=== PATIENT | female | born 1990 | race Caucasian/White ===

== ENCOUNTER → 2017-08-16 18:20 | Outpatient (CLI) | payer BC, SELFPAY ==
[2017-08-16 20:09] LABS: Chlamydia Trachomatis by PCR Negative (Negative); Neisserai gonorrhoeae by PCR Negative (Negative); Probe Check PASS; Sample Adequacy Control PASS; Specimen Processing Control PASS
[2017-08-23 07:27] LABS: HPV Reflexed? NOT INDICATED
== END ==
PROVIDERS: PCP Family Medicine; Visit Provider Obstetrics & Gynecology
DX: Z12.4 Encounter for screening for malignant neoplasm of cervix (principal); Z11.3 Encounter for screening for infections with a predominantly sexual mode of transmission
CPT/HCPCS: 87491; 87591; 88175; G0145

== ENCOUNTER → 2017-09-08 14:36 | Outpatient (CLI) | payer BC, SELFPAY ==
[2017-09-08 15:49] LABS: Color, Urine Yellow (Yellow); Glucose, Dipstick Normal (Normal); Ketone-Dipstick Negative (Negative); Leukocyte Esterase-Dipstick Negative /ul (Negative); Nitrite-Dipstick Negative (Negative); Occult Blood-Urine Negative /ul (Negative); Protein-Dipstick Negative (Negative); Urine Bilirubin Dipstick Negative (Negative); Urine Clarity Clear (Clear); Urine Urobilinogen Normal (Normal); Urine pH 6.5 (5.0 - 8.0)
[2017-09-08 16:02] LABS: Amphetamine Urine VISTA NEGATIVE (<1000 ng/mL); Barbiturate Urine VISTA NEGATIVE (< 200 ng/mL); Benzodiazepine Urine VISTA NEGATIVE (< 200 ng/mL); Cocaine Urine VISTA NEGATIVE (< 300 ng/mL); Ecstacy Urine VISTA NEGATIVE (< 500 ng/mL); Methadone Urine VISTA NEGATIVE (< 300 ng/mL); PCP Urine VISTA NEGATIVE (< 25 ng/mL); THC Urine VISTA NEGATIVE (< 50 ng/mL); Vista UDS pH Range 6
[2017-09-08 16:04] LABS: Thyroid Stim Hormone (TSH) 1.33 uIU/mL (0.358-3.74)
[2017-09-08 16:09] LABS: Absolute Lymphocyte Count 1.87 X10^3/ul (0.83-4.51); Absolute Neutrophil Count 4.6 X10^3/uL (2.0-7.7); Basophil# 0.02 X10^3/uL; Basophil% 0.3 % (0-1); Eosinophil# 0.16 X10^3/uL; Eosinophils% 2.3 % (0-5); Hematocrit 39.1 % (37-47); Hemoglobin 13.7 g/dl (12.0-15.0); Lymphocyte # 1.87 X10^3/ul (4.0); Lymphocyte % 26.8 % (19-41); Mean Corpuscular Hgb 30.4 pg (27.0-32.0); Mean Corpuscular Volume 86.7 fL (81-99); Monocyte# 0.34 X10^3/uL; Monocyte% 4.9 % (0-10); Neutrophil # 4.58 X10^3/uL (2.7-7.7); Neutrophil % 65.6 % (47-70); Platelet Count 270 K/mm3 (150-450); RBC Distribution Width CV 12.3 % (11.6-14.6); RBC Distribution Width SD 38.1 fl (35.1-43.9); Red Blood Count 4.51 M/mm3 (4.2-5.4)
[2017-09-08 16:24] LABS: POSITIVE COUNT NO; POSITIVE DIFFERENTIAL NO; POSITIVE MORPHOLOGY NO
[2017-09-08 16:43] LABS: HIV - WCH Non-Reactive (Nonreactive); Rubella IgG 36.4 IU/mL
[2017-09-11 08:59] LABS: HEPATITIS B SURFACE AG Negative (Negative); Hep C Antibodies 0.2 s/co ratio (0.0-0.9); Toxoplasma Gondii IgG < 3.0 IU/mL (0.0-7.1)
[2017-09-15 01:08] LABS: Prenatal RPR NONREACTIVE (NONREACTIVE)
== END ==
PROVIDERS: Visit Provider Obstetrics & Gynecology
DX: Z34.81 Encounter for supervision of other normal pregnancy, first trimester (principal)
CPT/HCPCS: 36415; 80307; 81002; 84443; 85025; 86703; 86762; 86777; 86803; 87340

== ENCOUNTER → 2018-01-05 09:53 | Outpatient (CLI) | payer BC, SELFPAY ==
[2018-01-05 11:41] LABS: Hematocrit 35.5 % (37-47); Mean Corp Hgb Conc 33.8 g/gl (32-36); Mean Corpuscular Hgb 30.7 pg (27.0-32.0); Mean Corpuscular Volume 90.8 fL (81-99); Mean Platelet Vol. 10.1 fl (6.2-12.0); Platelet Count 221 K/mm3 (150-450); RBC Distribution Width CV 13.4 % (11.6-14.6); RBC Distribution Width SD 43.3 fl (35.1-43.9); Red Blood Count 3.91 M/mm3 (4.2-5.4); Scan Indicated on CBC? Y/N NO; White Blood Count 9.2 K/mm3 (4.4-11.0)
[2018-01-05 11:54] LABS: Glucose Challenge Gest 1H 50g 112 mg/dL (70-140)
== END ==
PROVIDERS: Visit Provider Obstetrics & Gynecology
DX: Z34.83 Encounter for supervision of other normal pregnancy, third trimester (principal)
CPT/HCPCS: 36415; 82950; 85027

== ENCOUNTER 2018-01-06 14:45 | Outpatient (CLI) | payer BC, SELFPAY ==
[2018-01-06 15:42] LABS: Mucous, Urine 0 SEEN /hpf (<or=2+)
[2018-01-06 15:59] LABS: Color, Urine Yellow (Yellow); Glucose, Dipstick Normal (Normal); Ketone-Dipstick Negative (Negative); Leukocyte Esterase-Dipstick 25 /ul (Negative); Nitrite-Dipstick Negative (Negative); Occult Blood-Urine 25 /ul (Negative); Protein-Dipstick 30 mg/dl (Negative); Urine Bilirubin Dipstick Negative (Negative); Urine Clarity Cloudy (Clear); Urine Urobilinogen Normal (Normal)
[2018-01-06 16:01] LABS: Absolute Lymphocyte Count 1.44 X10^3/ul (0.83-4.51); Absolute Neutrophil Count 10.7 X10^3/uL (2.0-7.7); Basophil# 0.02 X10^3/uL; Basophil% 0.2 % (0-1); Eosinophil# 0.04 X10^3/uL; Eosinophils% 0.3 % (0-5); Hematocrit 35.4 % (37-47); Hemoglobin 12.3 g/dl (12.0-15.0); Lymphocyte # 1.44 X10^3/ul (4.0); Lymphocyte % 11.3 % (19-41); Mean Corp Hgb Conc 34.7 g/gl (32-36); Mean Corpuscular Hgb 31.5 pg (27.0-32.0); Mean Corpuscular Volume 90.5 fL (81-99); Mean Platelet Vol. 10.2 fl (6.2-12.0); Monocyte# 0.54 X10^3/uL; Monocyte% 4.2 % (0-10); Neutrophil # 10.65 X10^3/uL (2.7-7.7); Neutrophil % 83.5 % (47-70); Platelet Count 209 K/mm3 (150-450); RBC Distribution Width SD 42.4 fl (35.1-43.9); Red Blood Count 3.91 M/mm3 (4.2-5.4); White Blood Count 12.8 K/mm3 (4.4-11.0)
[2018-01-06 16:03] LABS: POSITIVE COUNT NO; POSITIVE DIFFERENTIAL NO; POSITIVE MORPHOLOGY NO
[2018-01-06 16:09] LABS: Bacteria 3+ /hpf (None Seen)
[2018-01-06 16:10] LABS: Yeast-Urine 1+ /hpf (None Seen)
[2018-01-06 16:11] LABS: Red Blood Cells-Urine 0-5 SEEN /hpf (0-5); White Blood Cells 0-5 SEEN /hpf (0-5)
[2018-01-06 16:13] LABS: Squamous Epithelial Cells - UA 5-10 SEEN /hpf (5-10)
[2018-01-06 16:46] LABS: Fetal Fibronectin Negative
[2018-01-06 17:03] VITALS: BMI 35.6
[2018-01-06] MEDS: HYDROmorphone 0.5 MG/0.5 ML SYRINGE IV ×3 (17:10→22:14)
[2018-01-06] MEDS: Lactated Ringers 1,000 ML 200 ML IV ×2 (17:10→22:14)
[2018-01-06 17:23] LABS: Group B Strep DNA By PCR Negative (Negative); Internal Control PASS; Specimen Processing Control PASS
[2018-01-06 17:24] LABS: Probe Check PASS
[2018-01-06] MEDS: Acetaminophen 500 MG Tablet PO ×2 (17:49→23:57)
[2018-01-06] MEDS: proMETHazine 25 MG/ML Syringe 12.5 MG IV ×2 (17:49→22:15)
[2018-01-06] MEDS: Cefazolin 2 GM in 0.9% Normal Saline 100 ML IV (17:50)
[2018-01-06] MEDS: Phenazopyridine 95 MG Tablet 190 MG PO (19:55)
[2018-01-07] MEDS: Lactated Ringers 1,000 ML 200 ML IV ×2 (02:23→08:15)
[2018-01-07] MEDS: Cefazolin 1 GM/50 ML BAG IV ×2 (02:23→09:21)
[2018-01-07] MEDS: Phenazopyridine 95 MG Tablet 190 MG PO (08:18)
--- NOTE | 2018-01-07 09:06 | OB.TRI.NOTE ---
History of Present Illness Reason For Visit: (R) SIDE PAIN Date of Service: 01/06/18 Final RAMSES: 03/29/18 Gestational age: 28 Weeks and 3 Days History of Present Illness: 28 week intrauterine presents with severe right lower quadrant pain and inability to void. This started earlier in the day on January 06. Good movement is noted. Denies any vaginal bleeding. Good appetite and no nausea. care has otherwise been uneventful. Allergies No Known Allergies Allergy (Verified 01/06/18 17:04) Physical Exam General: Oriented x3 HEENT: PERRLA, EOMI Cardiovascular: Regular rate, Regular Rhythm Abdomen: Soft, Non-Distended, No Hepato-splenomegaly, Gravid, - - Exquisitely tender in right lower quadrant over round ligament; no CVAT Extremities:: No clubbing, No cyanosis, No edema Neurological: Cranial nerves II-XII grossly intact, - - Deep tendon reflexes 4+. Cervix Dilation (cm): 0 Station: -3 NST - FHR Rate Baby A NST Reactive:: Yes, Appropriate for gestational age FHR Category:: Category I Impression/Plan 28 week intrauterine with severe right lower quadrant pain and inability to void. Mcnulty catheter inserted and minimal urine noted. Bedside ultrasound at presentation showed no distention of the bladder with cephalic presentation, good amniotic fluid, good movement, posterior fundal placenta, cervix closed. Urinalysis showed 3+ bacteria and some blood. Impression: 28+ week intrauterine with urinary tract infection and severe right round ligament pain. Patient responded well overnight to IV hydration, IV Dilaudid, p.o. Tylenol and Pyridium, and IV Ancef. Pain nearly resolved. Will release to home with p.o. Tylenol. Routine follow-up in the office. Still awaiting urine culture and sensitivity. Discussed that round ligament pain may persist for several weeks and that she should call with recurrence of urinary symptoms.
== END 2018-01-07 10:25 | disposition home or self-care (01) ==
LOC: WPOUT 14:54 → WP 22:15
PROVIDERS: Family Provider Family Medicine; PCP Family Medicine; Visit Provider Obstetrics & Gynecology
DX: O23.43 Unspecified infection of urinary tract in pregnancy, third trimester (principal); Z3A.28 28 weeks gestation of pregnancy
CPT/HCPCS: 96361 ×2; 96365; 96366; 96375; 96376; 36415; 59025; 59050; 76815; 81001; 82731; 85025; 87081; 87086; 87088; 87653; 94760; 99218; J7120; G0378

== ENCOUNTER → 2018-01-26 10:25 | Outpatient (CLI) | payer BC, SELFPAY | PROVIDERS: Visit Provider Obstetrics & Gynecology | DX: O23.43 Unspecified infection of urinary tract in pregnancy, third trimester (principal); Z3A.00 Weeks of gestation of pregnancy not specified | CPT/HCPCS: 87086; 87088 ==

== ENCOUNTER → 2018-03-02 16:22 | Outpatient (CLI) | payer BC, SELFPAY ==
[2018-03-02 18:26] LABS: Group B Strep DNA By PCR Negative (Negative); Internal Control PASS; Probe Check PASS; Specimen Processing Control PASS
== END ==
PROVIDERS: Visit Provider Obstetrics & Gynecology
DX: Z36.85 Encounter for antenatal screening for Streptococcus B (principal)
CPT/HCPCS: 87081; 87653

== ENCOUNTER → 2018-03-16 15:10 | Outpatient (CLI) | payer BC, SELFPAY ==
[2018-03-16 15:14] LABS: Mucous, Urine 0 SEEN /hpf (<or=2+); Red Blood Cells-Urine 0 SEEN /hpf (0-5)
[2018-03-16 15:46] LABS: Color, Urine Yellow (Yellow); Glucose, Dipstick Normal (Normal); Ketone-Dipstick 15 mg/dl (Negative); Leukocyte Esterase-Dipstick Negative /ul (Negative); Nitrite-Dipstick Negative (Negative); Occult Blood-Urine Negative /ul (Negative); Protein-Dipstick 15 mg/dl (Negative); Urine Bilirubin Dipstick Negative (Negative); Urine Clarity Cloudy (Clear); Urine Urobilinogen Normal (Normal)
[2018-03-16 16:10] LABS: Squamous Epithelial Cells - UA 10-25 SEEN /hpf (5-10); White Blood Cells 0-5 SEEN /hpf (0-5)
[2018-03-16 16:11] LABS: Amorphous Sediment 3+; Bacteria 4+ /hpf (None Seen)
== END ==
LOC: WOBLAB 15:11 → LABSPEC 15:11
PROVIDERS: Visit Provider Obstetrics & Gynecology
DX: O23.43 Unspecified infection of urinary tract in pregnancy, third trimester (principal); Z3A.00 Weeks of gestation of pregnancy not specified
CPT/HCPCS: 81001; 87086; 87088

== ENCOUNTER 2018-04-04 19:05 | Inpatient (IN) | payer BC, SELFPAY ==
[2018-04-04] MEDS: Lactated Ringers 1,000 ML 50 ML IV (19:40)
[2018-04-04] MEDS: miSOPROStol 25 MCG TABLET PO (20:09)
[2018-04-04 20:24] LABS: Hematocrit 36.2 % (37-47); Hemoglobin 12.3 g/dl (12.0-15.0); Mean Corpuscular Hgb 30.4 pg (27.0-32.0); Mean Corpuscular Volume 89.6 fL (81-99); Mean Platelet Vol. 10.8 fl (6.2-12.0); Platelet Count 216 K/mm3 (150-450); RBC Distribution Width CV 13.3 % (11.6-14.6); RBC Distribution Width SD 43.5 fl (35.1-43.9); Red Blood Count 4.04 M/mm3 (4.2-5.4); White Blood Count 8.9 K/mm3 (4.4-11.0)
[2018-04-04 20:30] LABS: Scan Indicated on CBC? Y/N NO
[2018-04-04 20:46] VITALS: BMI 37.5
[2018-04-04] MEDS: 0.9% Saline Lock 10 ML Syringe IV (21:43)
[2018-04-04] MEDS: Acetaminophen 325 MG Tablet PO (23:09)
[2018-04-05] MEDS: miSOPROStol 25 MCG TABLET PO (00:03)
[2018-04-05] MEDS: Acetaminophen 325 MG Tablet PO (03:33)
[2018-04-05] MEDS: Nalbuphine 10 MG/ML Ampul IV (04:34)
[2018-04-05] MEDS: Lactated Ringers 1,000 ML 50 ML IV ×4 (04:37→19:17)
[2018-04-05] MEDS: Ondansetron 4 MG/2 ML Vial IV ×2 (06:20→18:17)
[2018-04-05] MEDS: fentaNYL-bupivacaine (epidural) 100 ML BAG EPIDURAL ×3 (07:00→16:04)
[2018-04-05] MEDS: Oxytocin 30 units/NS 500 ml 30 UNITS/500 ML IV.SOLN IV (09:43)
--- NOTE | 2018-04-05 13:15 | PCM.PN.BLA ---
Progress Note LABOR PROGRESS NOTE Arrived to room following prolonged FHR deceleration, Cat II FHR. Patient on all fours. BP, P wnl. RN indicated pitocin was discontinued. IV bolus starting. O2 supplementation placed with recovery of FHR to 130s bpm. Contractions 2-3/10 min. I reviewed findings with patient and spouse reporting reassurance that heart rate returned to baseline 125 bpm with moderate variability. Will continue to observe in labor without pitocin.
[2018-04-05] MEDS: Oxytocin 30 units/NS 500 ml 30 UNITS/500 ML IV.SOLN 334 UNITS IV (20:43)
[2018-04-05] MEDS: Oxytocin 30 units/NS 500 ml 30 UNITS/500 ML IV.SOLN 167 UNITS IV (21:15)
--- NOTE | 2018-04-05 21:17 | OP.PCM_ITS ---
- Problem List (1) 41 weeks gestation of Status: Acute (2) (spontaneous vaginal delivery) Status: Acute Vaginal Delivery Maternal Presentation: Medically Indicated Induction Method of Induction: Pitocin Medical Reason for Induction: Post term Rupture of Membrane time: 0852h 04/05/18 Amniotic Fluid Description: Clear, Moderate meconium Final RAMSES: 03/29/18 Final RAMSES Source: US <20 weeks Gestational age: 41 Weeks and 0 Days [place] doctor who attended delivery (if requested by OB): Tino Valencia Date of Procedure: 04/05/18 Pre-Operative Diagnosis: 41 wga Post-Operative Diagnosis: 41 wga Surgery/ Procedure Performed: Spontaneous Vaginal Delivery Anesthesiologist: Jayant May Type of Anesthesia: Epidural Description of Procedure: Patient was FD/+3 station on my arrival. She pushed to deliver a male . The infant was apneic with poor tone. Thus the cord was immediately doubly clamped and cut and the infant passed to the awaiting Pediatric Hospitalist. The placenta delivered spontaneously and appeared intact on inspection. Cord gases were obtained. A second degree perineal laceration was repaired using 3-0 Vicryl Rapide. There was good hemostasis. Presentation: Vertex Placental Delivery Description: Spontaneous, Expressed Placenta Disposition: [facility] Cord Vessel Description: 3 Vessels Cord Gases drawn per routine: ABG, VBG Cord Entanglement: Around neck x 1, loose Drain: Mcnulty to straight drain Estimated Blood Loss: 250 ML Infant A gender: Male (1 minute): 4 (5 minute): 9 Episiotomy Description: None Laceration: Perineal Extension/lac, 2nd degree Medications given after delivery: IV Pitocin Complications: None
--- NOTE | 2018-04-05 21:24 | DCINST_ITS ---
Discharge Diet: No Restrictions Discharge Activity: Return to Normal Activity, May not drive while taking narcotic pain medications., May Shower, May Take a Tub Bath May resume sexual activity in: 6 weeks Lifting Restrictions: 10-20 lb Call your doctor if you observe: Fever of 101 or Higher, Inability to urinate, Inability to have a bowel movement, Using more than one pad per hour, Shortness of breath, Chest pain, Calf discomfort, Uncontrolled pain Suture Line Care: Avoid Pulling/Pushing Cleanse incision/area with: Soap & Water Additional Instructions: If you experience any of the following, contact your healthcare provider. * Bleeding that soaks a pad every hour for 2 hours * Fever 100.4 or higher * Unrelieved incision or abdominal pain * Swelling, redness, discharge or bleeding from your incision or episiotomy site * Your incision begins to separate * Problems urinating (including inability to urinate or burning while urinating). * Visual changes * Severe headache * Flu-like symptoms * Pain or redness in one of both of your breasts * Pain, warmth, tenderness or swelling in your legs, especially the calf area * Frequent nausea and vomiting * Symptoms of depression or anxiety If you experience any of the following, call 911 or go to the nearest Emergency Room. * Chest pain * Problems breathing * Seizure activity * Partial or complete paralysis of a body part, slurred speech, weakness or drooping of the face, or a sudden inability to walk or hold your balance Allergies/Adverse Reactions: Allergies No Known Allergies Allergy (Verified 04/04/18 20:14) Medications to take at Discharge One Daily Tablet 1 tab PO DAILY 01/06/18 Ranitidine [Zantac] 150 mg PO BID 01/06/18 Cranberry Conc/C/Bacill Coag [Cranberry Tablet] 1 each PO DAILY 04/04/18 Polyethylene Glycol 3350 [Miralax] 119 gm PO DAILY 04/04/18 Docusate Sodium [Colace] 100 mg PO BID PRN PRN #60 capsule 04/05/18 Ibuprofen 600 mg PO TID PRN #30 tablet 04/05/18 The following prescriptions were given: Docusate Sodium [Colace] 100 mg PO BID PRN PRN #60 capsule PRN Reason: Constipation Ibuprofen 600 mg PO TID PRN #30 tablet PRN Reason: Pain Please Follow Up With: Dennis Yanez MD When: 6 weeks Primary Care Physician: Sangeeta Lange DO [Primary Care Provider] - Test Results: Test results from this visit will be discussed in further detail at your follow- up appointment, if applicable.
[2018-04-05] MEDS: Acetaminophen 500 MG Tablet 1000 MG PO (21:30)
[2018-04-06 00:46] VITALS: BP 125/74; PULSE 77; RESP 18; TEMP 36.1
[2018-04-06 04:26] VITALS: BP 133/77; PULSE 66; RESP 16; TEMP 36.9
[2018-04-06] MEDS: Ibuprofen 600 MG Tablet PO ×3 (04:30→19:37)
--- NOTE | 2018-04-06 08:20 | PCM.PN.OB ---
Patient Problems: Active and Suspected Problems 41 weeks gestation of (Acute) (spontaneous vaginal delivery) (Acute) Subjective: No issues overnight. Reports heavy lochia, but does not need to change pad every 2 hours or more often and it is not saturated at changing. She is sore. She is and infant latches well. Objective: AVSS - Physical Exam General: Alert, Oriented x3, Cooperative, No apparent distress HEENT: Atraumatic, Normocephalic Lungs: Clear to auscultation, Normal air movement Cardiovascular: Regular rate, Regular Rhythm, Normal S1, Normal S2 Abdomen: Soft, Non Tender, Non-Distended, - - Fundus firm and nontender, lochia moderate Extremities: No edema, No Calf Tenderness Neurological: Neuro grossly intact Psych/Mental Status: Normal Affect, Appropriate, Alert and oriented to time, place, person, mood and affect Vital Signs Temp Pulse Resp BP 98.4 F 66 16 133/77 H 04/06/18 04:26 04/06/18 04:26 04/06/18 04:26 04/06/18 04:26 Oxygen Delivery Method Room Air Weight: 93 kg Body Mass Index (BMI) 37.5 Intake and Output for Last 24 Hours 04/04/18 04/05/18 04/06/18 23:59 23:59 23:59 Intake Total 4341 / 4341 Output Total 600 / 600 4100 / 4100 Balance -600 / -600 241 / 241 Medical Necessity - Tobacco Use Smoking Status: Never smoker Assessment/Plan All Active Problems 41 weeks gestation of (Acute) (spontaneous vaginal delivery) (Acute) 27yo PPD#1 s/p doing well. -RPR nr, HCV Ab neg, HBsAg neg, A positive, HIV neg, Rub immune - -Routine care
[2018-04-06 09:00] VITALS: BP 123/78; PULSE 77; RESP 16; TEMP 36.9; O2SAT 97
[2018-04-06] MEDS: Acetaminophen 500 MG Tablet 1000 MG PO (09:04)
[2018-04-06] MEDS: Senna/Docusate Sodium 1 Tablet PO (09:04)
[2018-04-06] MEDS: Dibucaine 30 GM Tube 1 APPLIC TOPICAL (09:05)
[2018-04-06 11:43] VITALS: BP 122/70; PULSE 92; RESP 16; TEMP 36.4; O2SAT 98
[2018-04-06 16:00] VITALS: BP 127/82; PULSE 88; RESP 16; TEMP 36.9; O2SAT 97
[2018-04-06 19:37] VITALS: BP 121/73; PULSE 77; RESP 17; TEMP 37.1; O2SAT 100
[2018-04-07 02:27] VITALS: BP 120/73; PULSE 76; RESP 16; TEMP 36.6; O2SAT 96
--- NOTE | 2018-04-07 06:16 | PCM.PN.OB ---
Patient Problems: Active and Suspected Problems 41 weeks gestation of (Acute) (spontaneous vaginal delivery) (Acute) Subjective: No issues overnight. She feels well this morning and her lochia has slowed. Her bottom remains sore, but painfulness not worsened. Objective: AVSS - Physical Exam General: Alert, Oriented x3, Cooperative, No apparent distress HEENT: Atraumatic, Normocephalic Lungs: Clear to auscultation, Normal air movement Cardiovascular: Regular rate, Regular Rhythm, Normal S1, Normal S2 Abdomen: Soft, Non Tender, Non-Distended, - - Fundus firm and nontender, lochia scant Extremities: No edema, No Calf Tenderness Neurological: Neuro grossly intact Psych/Mental Status: Normal Affect, Appropriate, Alert and oriented to time, place, person, mood and affect Vital Signs Temp Pulse Resp BP Pulse Ox 97.9 F 76 16 120/73 96 04/07/18 02:27 04/07/18 02:27 04/07/18 02:27 04/07/18 02:27 04/07/18 02:27 Oxygen Delivery Method Room Air Weight: 93 kg Body Mass Index (BMI) 37.5 Intake and Output for Last 24 Hours 04/05/18 04/06/18 04/07/18 23:59 23:59 23:59 Intake Total 4341 / 4341 Output Total 4100 / 4100 Balance 241 / 241 Medical Necessity - Tobacco Use Smoking Status: Never smoker Assessment/Plan All Active Problems 41 weeks gestation of (Acute) (spontaneous vaginal delivery) (Acute) 27yo PPD#2 s/p doing well. -RPR nr, HCV Ab neg, HBsAg neg, A positive, HIV neg, Rub immune - -Routine care -d/c home today
[2018-04-07] MEDS: Ibuprofen 600 MG Tablet PO (07:55)
[2018-04-07 08:00] VITALS: BP 118/75; PULSE 72; RESP 16; TEMP 36.8
[2018-04-07 14:30] VITALS: BP 119/63; PULSE 83; RESP 14; TEMP 36.2
--- NOTE | 2018-05-03 10:06 | PCM.HP.BLA ---
History and Physical Date of Admission: 04/04/18 History of this : 27 yo female Ab1 with EDC 03/29/2018 by 11 weeks 1 day Ultrasound, presents to Labor and Delivery. care unremarkable. Presents for postdate induction. Pertinent Past Medical History: Group B Strep - Negative 03/02/18 Allergies: NKDA Medications: During - Bactrim DS 800 mg-160 mg tablet; Ditropan XL 10 mg tablet,extended release; NADEEM (28) 3 mg-20 mcg tablet; Keflex 500 mg capsule; + DHA 28 mg iron- 975 mcg-200 mg combo pack; promethazine 12.5 mg tablet; acyclovir 400 mg tablet Review of Systems: Non-contributory PHYSICAL EXAMINATION General Appearence: Vital Signs: AF, VSS Heart: RRR without rubs or gallops Lungs:CTA x 2 Breasts:deferred Abdomen: gravid Pelvis: Cervix: unripe Presentation: cephalic Station:-2 Fetus: Size: AGA Movement:present Heart: present Impression /Plan: Intrauterine . Preperations in progress for delivery. 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 PLACE OF DLEIVERY LABOR YES/NO COMMENTS/ COMPLICATIONS 04/15 6 0 0 lbs. 0 oz. UNKNOWN Vag General Col No IS FATHER, OR ANYONE IN EITHER FAMILY WITH: YES NO YES NO 1. PATIENT'S AGE >35 YEARS OF ESTIMATED DATE OF DELIVERY No 12. EMILIE'S CHOREA No 2. THALASSENMIA (NEW Z[place]ANDER, [place], MEDITERRANEAN, OR BACKGROUND): MCV <80 No 13. MENTAL RETARDATION/AUTISM No 3. NEURAL TUBE DEFECT (MENINGOMYELOCELE, SPINA BIFICA, OR ANENCEPHALY) No IF YES, WAS PERSON TESTED FOR FRAGILE X? No 4. CONGENITAL HEART DEFECT No 14. OTHER INHERITED GENETIC OR CHROMOSOMAL DISORDER No 5. DOWN SYNDROME Yes Spouse's Uncle 15. MATERNAL METABOLIC DISORDER (EG, TYPE 1 DIABETES, PKU) No 6. ARLETTE-SACHS (EG, [place]IN[place], [place], [place]) No 16. PATIENT OR BABY'S FATHER HAD A CHILD WITH DEFECTS NOT LISTED ABOVE No 7. PAUL DISEASE 17. RECURRENT LOSS, OR A ASTILLBIRTH No 8. SICKLE CELL DISEASE OR TRAIT () No 18. MEDICATIONS (INCLUIDNG SUPPLEMENTS, VITAMINS, HERBS OR OTC DRUGS) /ILLICIT/RECREATIONAL DRUGS /ALCOHOL SINCE LAST MENSTRUAL PERIOD Yes 9. HEMOPHILIA OR OTHER BLOOD DISORDERS No IF YES, AGENT(S) AND STRENGTH/DOSAGE 10. MUSCULAR DSTROPHY No 11. CYSTIC FIBROSIS No-declines screening 19. ANY OTHER COMMENTS/ COUNSELING INFECTION HISTORY YES NO YES NO 1. LIVE WITH SOMEONE WITH TB OR EXPOSED TO TB No 4. HISTORY OF STD, GONORRHEA, CHLAMYDIA, HPV, SYPHILIS No 2. PATIENT OR PARTNER HAS HISTORY OF GENITAL HERPES No 5. OTHER (See Comments) 3. RASH OR VIRAL ILLNESS SINCE [place] PERIOD No INITIAL PHYSICAL EXAMINATION DATE 08/16/2017 HEIGHT 62 inches BP 130/86 WEIGHT 184.97834 pounds 1. HEENT Normocephalic, PERRLA, EOMI 12. VULVA non-tender without lesions 2. FUNDI EOMI with normal external exam 13. VAGINA vaginal villatoro are pink and moist without loss of rugae and no evidence of atropy 3. TEETH 14. CERVIX without cervical motion tenderness and has normal size and features without evident lesions 4. THYROID thyroid normal size and texture 15. UTERUS SIZE multiparous size 6 cm & wt 75-125 g 5. BREASTS No dominant masses, no tenderness, no axillary adenopathy, no nipple discharge, no skin changes 16. ADNEXA clear without massess or tenderness 6. LUNGS CTA x2 without wheezes, crackles or rales 17. RECTUM deferred 7. HEART Regular rate and rhythm without rubs, murmurs, or gallops 18. DIAGONAL CONJUGATE 8. ABDOMEN Without hepatosplenomegaly, distention, masses, rebound, or guarding; normal bowel sounds; no hernias 19. SPINES 9. EXTREMITIES No edema or calf tenderness 20. SACRUM 10. SKIN No rash, lesions, or ulcers 21. SUBPUBIC ARCH 11 LYMPH NODES Palpation of lymph nodes in neck and groins within normal limits 22. GYNECOID PELVIS TYPE PREPREGNANCY WEIGHT 184 DRUG ALLERGY LATEX ALLERGY NKDA NONE IS BLOOD TRANSFUSION ACCEPTABLE ANNA AN EMERGENCY? YES NO ANESTHESIA CONSULT PLANNED YES NO PROBLEMS/PLANS 1 h/o HSV - Acyclovir ppx at 36w 2 Declines CF and AFP. 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 MEDICATION LIST START DATE STOP DATE 1 Bactrim DS 800 mg-160 mg tablet 01/05/2017 08/16/2017 2 Ditropan XL 10 mg tablet,extended release 01/05/2017 08/16/2017 3 NADEEM (28) 3 mg-20 mcg tablet 01/05/2017 08/16/2017 4 Keflex 500 mg capsule 01/26/2018 02/08/2018 5 + DHA 28 mg iron- 975 mcg-200 mg combo pack 08/16/2017 6 promethazine 12.5 mg tablet 08/24/2017 7 acyclovir 400 mg tablet 02/23/2018 RAMSES CONFIRMATION INITIAL RAMSES LMP = RAMSES INITIAL EXAM = WKS = RAMSES ULTRASOUND = WKS = RAMSES INITIAL RAMSES INITIALED BY 18-20-WEEK RAMSES UPDATE QUIKENING + 22 WKS = FUNDAL HT. AT UMBIL. +20 WKS = ULTRASOUND = WKS= FINAL RAMSES 03/29/2018 INITIALED BY 09/08/17 11 U+ US 126/78 184 -/- 0 4 JMW SonscottNOB & PNV Today 10/06/17 15 15 + ? 122/74 186 -/- 0 4 JMW Declines AFP, Feeling Well 11/03/17 19 19 + + 128/70 188 -/- 0 4 JMW see notes, US OK 12/07/17 24 24 + + 132/74 191 -/- 0 4 JMW Glucola/Instructions Given,Good FM 01/05/18 28 28 + + 110/80 194 -/- 0 3 JMW see note, One Hr PG today 01/26/18 31 31 + + 120/66 195 -/- 0 2 JMW UTI sxs returning; send urine C/S; restart Keflex 02/08/18 33 36 V + + 122/80 197 -/- 0 2 SHM feeling well 02/23/18 35 36 V + + 108/70 196 tr/- 0 1 SHM feeling well. Interested in getting vaccines. 03/02/18 36 36 V + + 104/80 198 tr/- 0 1 JMW feeling well. GBS today. 03/08/18 37 37 V + + ft 50 -2 130/78 199 tr/- sl 1 JMW Ctxs-occas, Good FM 03/16/18 38 37 V + + 0 50 -4 128/78 200 1+/- sl 1 SHM see prog note 03/23/18 39 38 V + + S 136/84 204 -/- sl 1 JMW Ctxs-occas, Good FM 03/29/18 40 38 V + + S 134/80 204 -/- sl 1 JMW Ctxs-occas, Good FM 04/02/18 40 40 V + + ft 85 -1 138/78 203 -/- sl 6 JMW Ctxs-occas, Good FM, Induce PROBLEMS 08/16/17 ok 08/16/17 Mandi is here for missed menses appt with her . She relates LMP of 06/27, + UPT today in office, approx EDC 04/03/18. She has mild nausea, constipation, cramping, and fatigue. She denies bleeding or spotting. On PNV with DHA. She has numerous questions. Ok for Miralax, to color hair, have a little caffeine, eat fresh deli meat, do all basic duties at work except for post surgical with extubation meds. 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 What about changing cat litter. Advised no cat litter, may or may not be immune to this. We can ck this lab at next visit. She is asking about appts, labs, and u/s's. Reviewed early care. Educational materials are provided and reviewed. OTC meds for minor discomforts reviewed. She may try Unisom and B6 for nausea. Benadryl ok also. She is due for pap and cultures today. LMT 09/08/17 Gem came for NOB nurse visit following US and visit. Wait time was quite long and they had another appt at 3 p. Alvarez left for that prior to visit or NOB. Mandi is a G 2 P 0 w 1 TAB w RAMSES 03-29-18 planning a vag del w epidural at [facility], uncertain of doctor for post discharge care or feeding method. May consider nursing for colostrum. 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 They are pleased about the planned . Mandi has NKA to drugs, food or latex and does have some mild seasonal allergies. Her diet is balanced. She drinks 1-2 cans of Diet Coke daily and a few glasses of water. Her job is active but otherwise no exercise. She is a lifetime non smoker, non drinker and denies street drug use. Genetics Screening form completed noting Alvarez's uncle had Down's Syndrome and in his 40's. She declines AFP and CF tests. Warning signs in discussed along with OTC meds ok to take, reaching office after hours, walking 20 min daily and or using yoga for DVD carefully, increasing water intake to close to one gal daily and lifting restriction of 25# with understanding voiced. They have cats but she does not change the litter at home although she sometimes needs to at work. She wears a mask and gloves then. Routine labs done with Toxoplasmosis IgG added. Office Childbirth and Classes suggested. Enc to call with any concerns. Tyler CONTRERAS. 09/11/17 A pos, RI. TSH wnl. Hgb 13.7 g/dl. EB 11/03/17 PT states she has been having trouble with her hair falling out. Also having lower back pain, and legs going numb, I explained to patient could be weight of the pain pushing on Sciatic nerve. Pt also states she was riding on riding [employer]io[employer]ide yesterday and was really bumpy wants to know if she should stop. Dr. Yanez states yes she should stop. dg 01/05/18 Pt complains of [place] a couple times. She states she has had episodes at work where she is really light headed and seeing black spots. AM 01/05/18 12.g d/l. Glucola 112 EB 01/07/18 Call Msg from 01/06 W@ 2:20 PM. Mandi calling @ 28 wks with constant pain R side onset apprx 10 am. States she was in Breast Feeding Class when pain begain and had to leave near the end as she was too uncomfortable. States she had an appt with Dr. Yanez Monday and advised can have some pain associated with FM, but this is not going away. States pain RLQ. Still has appendix. No Hx Kidney Stones. Feels like her bladder is really full, but is only able to urinate a few drops. Advised to go to L+D for evaluation. 01/26/18 Pt feeling well. Pt was complaining of frequency of urination, wanted to be checked for UTI. Long dip only showed pH 7.5, the rest was normal. AM 02/08/18 Advised abx for UTI ppx given recent h/o pyelonephritis, reviewed ACOG recommendations. R/b/i reviewed. Pt declines. I advised [facility] with cranberry extracts for prevention. 02/25/18 Entry for 02/23/18: Discussed Tdap, flu shot. Rx Acyclovir for HSV ppx. Reviewed prodromal and outbreak sx necessitating C/S to reduce vertical transmission. 03/08/18 H&P taken to OB. tkg 03/16/18 Mandi is here today for her visit. Patient states that she has been having an increase in cramping over the past week. She states that she does have a h/o UTI earlier in . Patient had long dip of urine in the office today leuk-trace, nitrite-neg, urobilinogen-neg, protein-1+, pH-8, blood-neg, sp gravity-1010, ketones-+, bilirubin and glucose-neg. Will plan to send for u/a c&S. jlb 03/16/18 US CEPHALIC, CELINA 10.6cm. Labor and preeclamptic precautions. TYPE AND SCREEN 04/04/18 BLOOD TYPE GEL A POSITIVE ANTIBODY SCREEN NEGATIVE CBC-COMPLETE BLOOD CNT NO DIFF 04/04/18 NOTE WBC 8.9 RBC 4.04 HGB 12.3 HCT 36.2 MCV 89.6 MCH 30.4 MCHC 34.0 RDW CV 13.3 RDW SD 43.5 PLT 216 MPV 10.8 CULTURE, URINE 03/16/18 NOTE DATE 05/03/2018 Page Number 8 NAME REBECCA Dorsey [facility] [id number] Medical Record URINALYSIS, COMPLETE 03/16/18 NOTE COLOR Yellow CLARITY Cloudy GLUCOSE, UR Normal BILIRUBIN URINE Negative KETONE UR 15 SP.GR. DIPSTX 1.010 PH UR 8.0 PROT DIPSTX 15 UROBILI Normal NITRITE UR Negative OCCULT BLOOD-UR Negative LEUK ESTERASE Negative WBC 0-5 SEEN RBC-UA 0 SEEN SQUAM EPI 10-25 SEEN BACTERIA 4+ MUCUS, URINE 0 SEEN AMORPHOUS 3+ GROUP B STREP DNA BY PCR 03/02/18 NOTE GBS TEST RESULT Negative CULTURE, GROUP B STREPTOCOCCUS 03/02/18 NOTE CULTURE, URINE 01/26/18 NOTE GROUP B STREP DNA BY PCR 01/06/18 NOTE GBS TEST RESULT Negative FIBRONECTIN 01/06/18 NOTE FFN Negative CBC W/DIFF, AUTOMATED 01/06/18 NOTE WBC 12.8 RBC 3.91 HGB 12.3 HCT 35.4 MCV 90.5 MCH 31.5 MCHC 34.7 RDW CV 13.0 RDW SD 42.4 PLT 209 MPV 10.2 NEUT% 83.5 LY% 11.3 MONO% 4.2 EO% 0.3 BASO% 0.2 IM GRAN % 0.500 ABSOLUTE NEUT 10.7 ABSOLUTE LYMPH 1.44 CULTURE, URINE 01/06/18 NOTE URINALYSIS, COMPLETE 01/06/18 NOTE COLOR Yellow CLARITY Cloudy GLUCOSE, UR Normal BILIRUBIN URINE Negative KETONE UR Negative SP.GR. DIPSTX 1.020 PH UR 6.0 PROT DIPSTX 30 DATE 05/03/2018 Page Number 9 NAME REBECCA SANCHEZ [facility] Medical Record UROBILI Normal NITRITE UR Negative OCCULT BLOOD-UR 25 LEUK ESTERASE 25 WBC 0-5 SEEN RBC-UA 0-5 SEEN SQUAM EPI 5-10 SEEN BACTERIA 3+ MUCUS, URINE 0 SEEN YEAST-URINE 1+ CULTURE, GROUP B STREPTOCOCCUS 01/06/18 NOTE GLUCOSE CHALLENGE GEST 1H 50G 01/05/18 NOTE GLU GEST 50G 1H 112 CBC-COMPLETE BLOOD CNT NO DIFF 01/05/18 NOTE WBC 9.2 RBC 3.91 HGB 12.0 HCT 35.5 MCV 90.8 MCH 30.7 MCHC 33.8 RDW CV 13.4 RDW SD 43.3 PLT 221 MPV 10.1 RPR 09/08/17 NOTE RPR NONREACTIVE TOXOPLASMA GONDII IGG 09/08/17 NOTE TOXOPIGG < 3.0 HEPATITIS C ANTIBODIES 09/08/17 NOTE HEP C AB 0.2 HEPATITIS B SURFACE AG 09/08/17 NOTE HB SURF AG Negative T AND S-NO CHARGE W/PNP 09/08/17 BLOOD TYPE GEL A POSITIVE AB SCREEN GEL NEGATIVE HIV - [facility] 09/08/17 NOTE HIV - [facility] Non-Reactive RUBELLA IGG 09/08/17 NOTE RUBELLA IGG 36.4 CBC W/DIFF, AUTOMATED 09/08/17 NOTE WBC 7.0 RBC 4.51 HGB 13.7 HCT 39.1 MCV 86.7 MCH 30.4 MCHC 35.0 RDW CV 12.3 RDW SD 38.1 PLT 270 MPV 10.0 DATE 05/03/2018 Page Number 10 NAME REBECCA WATSON A [facility] Medical Record NEUT% 65.6 LY% 26.8 MONO% 4.9 EO% 2.3 BASO% 0.3 IM GRAN % 0.100 ABSOLUTE NEUT 4.6 ABSOLUTE LYMPH 1.87 THYROID STIM HORMONE (TSH) 09/08/17 NOTE TSH 1.33 URINE DRUG SCREEN (VISTA) 09/08/17 NOTE TO BE CONFIRMED VISTA UDS PH 6 AMPHETAMINES NEGATIVE BARBITIURATES NEGATIVE BENZODIAZIPINE NEGATIVE COCAINE NEGATIVE ECSTACY NEGATIVE METHADONE NEGATIVE OPIATES NEGATIVE PCP NEGATIVE THC NEGATIVE URINALYSIS, ROUTINE (DIPSTICK) 09/08/17 NOTE COLOR Yellow CLARITY Clear GLUCOSE, UR Normal BILIRUBIN URINE Negative KETONE UR Negative SP.GR. DIPSTX 1.010 PH UR 6.5 PROT DIPSTX Negative UROBILI Normal NITRITE UR Negative OCCULT BLOOD-UR Negative LEUK ESTERASE Negative PAP IG W/REFLEX HR HPV APTIMA 08/16/17 NOTE DIAGN ADEQ PERFORM TEST METHOD COMM . PAPSMR HPV RFLX CT/NG [facility] BY PCR 08/16/17 NOTE DAVE TRAC PCR Negative NG BY PCR Negative
--- NOTE | 2018-05-03 10:10 | HP.PCM_ITS ---
History and Physical Date of Admission: 04/04/18 History of this : 27 yo female Ab1 with EDC 03/29/2018 by 11 weeks 1 day Ultrasound, presents to Labor and Delivery. care unremarkable. Presents for postdate induction. Pertinent Past Medical History: Group B Strep - Negative 03/02/18 Allergies: NKDA Medications: During - Bactrim DS 800 mg-160 mg tablet; Ditropan XL 10 mg tablet,extended release; NADEEM (28) 3 mg-20 mcg tablet; Keflex 500 mg capsule; + DHA 28 mg iron- 975 mcg-200 mg combo pack; promethazine 12.5 mg tablet; acyclovir 400 mg tablet Review of Systems: Non-contributory PHYSICAL EXAMINATION General Appearence: Vital Signs: AF, VSS Heart: RRR without rubs or gallops Lungs:CTA x 2 Breasts:deferred Abdomen: gravid Pelvis: Cervix: unripe Presentation: cephalic Station:-2 Fetus: Size: AGA Movement:present Heart: present Impression /Plan: Intrauterine . Preperations in progress for delivery. 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 PLACE OF DLEIVERY LABOR YES/NO COMMENTS/ COMPLICATIONS 04/15 6 0 0 lbs. 0 oz. UNKNOWN Vag General Col No IS FATHER, OR ANYONE IN EITHER FAMILY WITH: YES NO YES NO 1. PATIENT'S AGE >35 YEARS OF ESTIMATED DATE OF DELIVERY No 12. EMILIE'S CHOREA No 2. THALASSENMIA (BRAZILIAN, PAKISTANI, MEDITERRANEAN, OR BACKGROUND): MCV <80 No 13. MENTAL RETARDATION/AUTISM No 3. NEURAL TUBE DEFECT (MENINGOMYELOCELE, SPINA BIFICA, OR ANENCEPHALY) No IF YES, WAS PERSON TESTED FOR FRAGILE X? No 4. CONGENITAL HEART DEFECT No 14. OTHER INHERITED GENETIC OR CHROMOSOMAL DISORDER No 5. DOWN SYNDROME Yes Spouse's Uncle 15. MATERNAL METABOLIC DISORDER (EG, TYPE 1 DIABETES, PKU) No 6. ARLETTE-SACHS (EG, GNOSTICIST, CAJUN, URUGUAYAN ESTONIAN) No 16. PATIENT OR BABY'S FATHER HAD A CHILD WITH DEFECTS NOT LISTED ABOVE No 7. PAUL DISEASE 17. RECURRENT LOSS, OR A ASTILLBIRTH No 8. SICKLE CELL DISEASE OR TRAIT () No 18. MEDICATIONS (INCLUIDNG SUPPLEMENTS, VITAMINS, HERBS OR OTC DRUGS) /ILLICIT/RECREATIONAL DRUGS /ALCOHOL SINCE LAST MENSTRUAL PERIOD Yes 9. HEMOPHILIA OR OTHER BLOOD DISORDERS No IF YES, AGENT(S) AND STRENGTH/DOSAGE 10. MUSCULAR DSTROPHY No 11. CYSTIC FIBROSIS No-declines screening 19. ANY OTHER COMMENTS/ COUNSELING INFECTION HISTORY YES NO YES NO 1. LIVE WITH SOMEONE WITH TB OR EXPOSED TO TB No 4. HISTORY OF STD, GONORRHEA, CHLAMYDIA, HPV, SYPHILIS No 2. PATIENT OR PARTNER HAS HISTORY OF GENITAL HERPES No 5. OTHER (See Comments) 3. RASH OR VIRAL ILLNESS SINCE [place] PERIOD No INITIAL PHYSICAL EXAMINATION DATE 08/16/2017 HEIGHT 62 inches BP 130/86 WEIGHT 184.66522 pounds 1. HEENT Normocephalic, PERRLA, EOMI 12. VULVA non-tender without lesions 2. FUNDI EOMI with normal external exam 13. VAGINA vaginal villatoro are pink and moist without loss of rugae and no evidence of atropy 3. TEETH 14. CERVIX without cervical motion tenderness and has normal size and features without evident lesions 4. THYROID thyroid normal size and texture 15. UTERUS SIZE multiparous size 6 cm & wt 75-125 g 5. BREASTS No dominant masses, no tenderness, no axillary adenopathy, no nipple discharge, no skin changes 16. ADNEXA clear without massess or tenderness 6. LUNGS CTA x2 without wheezes, crackles or rales 17. RECTUM deferred 7. HEART Regular rate and rhythm without rubs, murmurs, or gallops 18. DIAGONAL CONJUGATE 8. ABDOMEN Without hepatosplenomegaly, distention, masses, rebound, or guarding; normal bowel sounds; no hernias 19. SPINES 9. EXTREMITIES No edema or calf tenderness 20. SACRUM 10. SKIN No rash, lesions, or ulcers 21. SUBPUBIC ARCH 11 LYMPH NODES Palpation of lymph nodes in neck and groins within normal limits 22. GYNECOID PELVIS TYPE PREPREGNANCY WEIGHT 184 DRUG ALLERGY LATEX ALLERGY NKDA NONE IS BLOOD TRANSFUSION ACCEPTABLE ANNA AN EMERGENCY? YES NO ANESTHESIA CONSULT PLANNED YES NO PROBLEMS/PLANS 1 h/o HSV - Acyclovir ppx at 36w 2 Declines CF and AFP. 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 MEDICATION LIST START DATE STOP DATE 1 Bactrim DS 800 mg-160 mg tablet 01/05/2017 08/16/2017 2 Ditropan XL 10 mg tablet,extended release 01/05/2017 08/16/2017 3 NADEEM (28) 3 mg-20 mcg tablet 01/05/2017 08/16/2017 4 Keflex 500 mg capsule 01/26/2018 02/08/2018 5 + DHA 28 mg iron- 975 mcg-200 mg combo pack 08/16/2017 6 promethazine 12.5 mg tablet 08/24/2017 7 acyclovir 400 mg tablet 02/23/2018 RAMSES CONFIRMATION INITIAL RAMSES LMP = RAMSES INITIAL EXAM = WKS = RAMSES ULTRASOUND = WKS = RAMSES INITIAL RAMSES INITIALED BY 18-20-WEEK RAMSES UPDATE QUIKENING + 22 WKS = FUNDAL HT. AT UMBIL. +20 WKS = ULTRASOUND = WKS= FINAL RAMSES 03/29/2018 INITIALED BY 09/08/17 11 U+ US 126/78 184 -/- 0 4 JMW SonscottNOB & PNV Today 10/06/17 15 15 + ? 122/74 186 -/- 0 4 JMW Declines AFP, Feeling Well 11/03/17 19 19 + + 128/70 188 -/- 0 4 JMW see notes, US OK 12/07/17 24 24 + + 132/74 191 -/- 0 4 JMW Glucola/Instructions Given,Good FM 01/05/18 28 28 + + 110/80 194 -/- 0 3 JMW see note, One Hr PG today 01/26/18 31 31 + + 120/66 195 -/- 0 2 JMW UTI sxs returning; send urine C/S; restart Keflex 02/08/18 33 36 V + + 122/80 197 -/- 0 2 SHM feeling well 02/23/18 35 36 V + + 108/70 196 tr/- 0 1 SHM feeling well. Interested in getting vaccines. 03/02/18 36 36 V + + 104/80 198 tr/- 0 1 JMW feeling well. GBS today. 03/08/18 37 37 V + + ft 50 -2 130/78 199 tr/- sl 1 JMW Ctxs-occas, Good FM 03/16/18 38 37 V + + 0 50 -4 128/78 200 1+/- sl 1 SHM see prog note 03/23/18 39 38 V + + S 136/84 204 -/- sl 1 JMW Ctxs-occas, Good FM 03/29/18 40 38 V + + S 134/80 204 -/- sl 1 JMW Ctxs-occas, Good FM 04/02/18 40 40 V + + ft 85 -1 138/78 203 -/- sl 6 JMW Ctxs-occas, Good FM, Induce PROBLEMS 08/16/17 ok 08/16/17 Mandi is here for missed menses appt with her . She relates LMP of 06/27, + UPT today in office, approx EDC 04/03/18. She has mild nausea, constipation, cramping, and fatigue. She denies bleeding or spotting. On PNV with DHA. She has numerous questions. Ok for Miralax, to color hair, have a little caffeine, eat fresh deli meat, do all basic duties at work except for post surgical with extubation meds. 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 What about changing cat litter. Advised no cat litter, may or may not be immune to this. We can ck this lab at next visit. She is asking about appts, labs, and u/s's. Reviewed early care. Educational materials are provided and reviewed. OTC meds for minor discomforts reviewed. She may try Unisom and B6 for nausea. Benadryl ok also. She is due for pap and cultures today. LMT 09/08/17 Gem came for NOB nurse visit following US and visit. Wait time was quite long and they had another appt at 3 p. Alvarez left for that prior to visit or NOB. Mandi is a G 2 P 0 w 1 TAB w RAMSES 03-29-18 planning a vag del w epidural at [facility], uncertain of doctor for post discharge care or feeding method. May consider nursing for colostrum. 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 They are pleased about the planned . Mandi has NKA to drugs, food or latex and does have some mild seasonal allergies. Her diet is balanced. She drinks 1-2 cans of Diet Coke daily and a few glasses of water. Her job is active but otherwise no exercise. She is a lifetime non smoker, non drinker and denies street drug use. Genetics Screening form completed noting Alvarez's uncle had Down's Syndrome and in his 40's. She declines AFP and CF tests. Warning signs in discussed along with OTC meds ok to take, reaching office after hours, walking 20 min daily and or using yoga for DVD carefully, increasing water intake to close to one gal daily and lifting restriction of 25# with understanding voiced. They have cats but she does not change the litter at home although she sometimes needs to at work. She wears a mask and gloves then. Routine labs done with Toxoplasmosis IgG added. Office Childbirth and Classes suggested. Enc to call with any concerns. Tyler CONTRERAS. 09/11/17 A pos, RI. TSH wnl. Hgb 13.7 g/dl. EB 11/03/17 PT states she has been having trouble with her hair falling out. Also having lower back pain, and legs going numb, I explained to patient could be weight of the pain pushing on Sciatic nerve. Pt also states she was riding on riding [employer] yesterday and was really bumpy wants to know if she should stop. Dr. Yanez states yes she should stop. dg 01/05/18 Pt complains of [place] a couple times. She states she has had episodes at work where she is really light headed and seeing black spots. AM 01/05/18 12.g d/l. Glucola 112 EB 01/07/18 Call Msg from 01/06 W@ 2:20 PM. Mandi calling @ 28 wks with constant pain R side onset apprx 10 am. States she was in Breast Feeding Class when pain begain and had to leave near the end as she was too uncomfortable. States she had an appt with Dr. Yanez Monday and advised can have some pain associated with FM, but this is not going away. States pain RLQ. Still has appendix. No Hx Kidney Stones. Feels like her bladder is really full, but is only able to urinate a few drops. Advised to go to L+D for evaluation. 01/26/18 Pt feeling well. Pt was complaining of frequency of urination, wanted to be checked for UTI. Long dip only showed pH 7.5, the rest was normal. AM 02/08/18 Advised abx for UTI ppx given recent h/o pyelonephritis, reviewed ACOG recommendations. R/b/i reviewed. Pt declines. I advised [facility] with cranberry extracts for prevention. 02/25/18 Entry for 02/23/18: Discussed Tdap, flu shot. Rx Acyclovir for HSV ppx. Reviewed prodromal and outbreak sx necessitating C/S to reduce vertical transmission. 03/08/18 H&P taken to OB. tkg 03/16/18 Mandi is here today for her visit. Patient states that she has been having an increase in cramping over the past week. She states that she does have a h/o UTI earlier in . Patient had long dip of urine in the office today leuk-trace, nitrite-neg, urobilinogen-neg, protein-1+, pH-8, blood- neg, sp gravity-1010, ketones-+, bilirubin and glucose-neg. Will plan to send for u/a c&S. jlb 03/16/18 US CEPHALIC, CELINA 10.6cm. Labor and preeclamptic precautions. TYPE AND SCREEN 04/04/18 BLOOD TYPE GEL A POSITIVE ANTIBODY SCREEN NEGATIVE CBC-COMPLETE BLOOD CNT NO DIFF 04/04/18 NOTE WBC 8.9 RBC 4.04 HGB 12.3 HCT 36.2 MCV 89.6 MCH 30.4 MCHC 34.0 RDW CV 13.3 RDW SD 43.5 PLT 216 MPV 10.8 CULTURE, URINE 03/16/18 NOTE DATE 05/03/2018 Page Number 8 NAME REBECCA Dorsey [facility] [id number] Medical Record URINALYSIS, COMPLETE 03/16/18 NOTE COLOR Yellow CLARITY Cloudy GLUCOSE, UR Normal BILIRUBIN URINE Negative KETONE UR 15 SP.GR. DIPSTX 1.010 PH UR 8.0 PROT DIPSTX 15 UROBILI Normal NITRITE UR Negative OCCULT BLOOD-UR Negative LEUK ESTERASE Negative WBC 0-5 SEEN RBC-UA 0 SEEN SQUAM EPI 10-25 SEEN BACTERIA 4+ MUCUS, URINE 0 SEEN AMORPHOUS 3+ GROUP B STREP DNA BY PCR 03/02/18 NOTE GBS TEST RESULT Negative CULTURE, GROUP B STREPTOCOCCUS 03/02/18 NOTE CULTURE, URINE 01/26/18 NOTE GROUP B STREP DNA BY PCR 01/06/18 NOTE GBS TEST RESULT Negative FIBRONECTIN 01/06/18 NOTE FFN Negative CBC W/DIFF, AUTOMATED 01/06/18 NOTE WBC 12.8 RBC 3.91 HGB 12.3 HCT 35.4 MCV 90.5 MCH 31.5 MCHC 34.7 RDW CV 13.0 RDW SD 42.4 PLT 209 MPV 10.2 NEUT% 83.5 LY% 11.3 MONO% 4.2 EO% 0.3 BASO% 0.2 IM GRAN % 0.500 ABSOLUTE NEUT 10.7 ABSOLUTE LYMPH 1.44 CULTURE, URINE 01/06/18 NOTE URINALYSIS, COMPLETE 01/06/18 NOTE COLOR Yellow CLARITY Cloudy GLUCOSE, UR Normal BILIRUBIN URINE Negative KETONE UR Negative SP.GR. DIPSTX 1.020 PH UR 6.0 PROT DIPSTX 30 DATE 05/03/2018 Page Number 9 NAME REBECCA SANCHEZ [facility] Medical Record UROBILI Normal NITRITE UR Negative OCCULT BLOOD-UR 25 LEUK ESTERASE 25 WBC 0-5 SEEN RBC-UA 0-5 SEEN SQUAM EPI 5-10 SEEN BACTERIA 3+ MUCUS, URINE 0 SEEN YEAST-URINE 1+ CULTURE, GROUP B STREPTOCOCCUS 01/06/18 NOTE GLUCOSE CHALLENGE GEST 1H 50G 01/05/18 NOTE GLU GEST 50G 1H 112 CBC-COMPLETE BLOOD CNT NO DIFF 01/05/18 NOTE WBC 9.2 RBC 3.91 HGB 12.0 HCT 35.5 MCV 90.8 MCH 30.7 MCHC 33.8 RDW CV 13.4 RDW SD 43.3 PLT 221 MPV 10.1 RPR 09/08/17 NOTE RPR NONREACTIVE TOXOPLASMA GONDII IGG 09/08/17 NOTE TOXOPIGG < 3.0 HEPATITIS C ANTIBODIES 09/08/17 NOTE HEP C AB 0.2 HEPATITIS B SURFACE AG 09/08/17 NOTE HB SURF AG Negative T AND S-NO CHARGE W/PNP 09/08/17 BLOOD TYPE GEL A POSITIVE AB SCREEN GEL NEGATIVE HIV - W[facility] 09/08/17 NOTE HIV - [facility] Non-Reactive RUBELLA IGG 09/08/17 NOTE RUBELLA IGG 36.4 CBC W/DIFF, AUTOMATED 09/08/17 NOTE WBC 7.0 RBC 4.51 HGB 13.7 HCT 39.1 MCV 86.7 MCH 30.4 MCHC 35.0 RDW CV 12.3 RDW SD 38.1 PLT 270 MPV 10.0 DATE 05/03/2018 Page Number 10 NAME REBECCA W[facility] Medical Record NEUT% 65.6 LY% 26.8 MONO% 4.9 EO% 2.3 BASO% 0.3 IM GRAN % 0.100 ABSOLUTE NEUT 4.6 ABSOLUTE LYMPH 1.87 THYROID STIM HORMONE (TSH) 09/08/17 NOTE TSH 1.33 URINE DRUG SCREEN (VISTA) 09/08/17 NOTE TO BE CONFIRMED VISTA UDS PH 6 AMPHETAMINES NEGATIVE BARBITIURATES NEGATIVE BENZODIAZIPINE NEGATIVE COCAINE NEGATIVE ECSTACY NEGATIVE METHADONE NEGATIVE OPIATES NEGATIVE PCP NEGATIVE THC NEGATIVE URINALYSIS, ROUTINE (DIPSTICK) 09/08/17 NOTE COLOR Yellow CLARITY Clear GLUCOSE, UR Normal BILIRUBIN URINE Negative KETONE UR Negative SP.GR. DIPSTX 1.010 PH UR 6.5 PROT DIPSTX Negative UROBILI Normal NITRITE UR Negative OCCULT BLOOD-UR Negative LEUK ESTERASE Negative PAP IG W/REFLEX HR HPV APTIMA 08/16/17 NOTE DIAGN ADEQ PERFORM TEST METHOD COMM . PAPSMR HPV RFLX CT/NG WCH BY PCR 08/16/17 NOTE DAVE TRAC PCR Negative NG BY PCR Negative
== END 2018-04-07 14:30 | disposition home or self-care (01) | DRG 775 ==
PROVIDERS: Admitting Provider Obstetrics & Gynecology; Family Provider Family Medicine; PCP Family Medicine; Referring Provider Obstetrics & Gynecology; Visit Provider Obstetrics & Gynecology
DX: O48.0 Post-term pregnancy (principal); O70.1 Second degree perineal laceration during delivery; O76 Abnormality in fetal heart rate and rhythm complicating labor and delivery; O69.81X0 Labor and delivery complicated by cord around neck, without compression, not applicable or unspecified; K21.9 Gastro-esophageal reflux disease without esophagitis; Z3A.41 41 weeks gestation of pregnancy; Z37.0 Single live birth
CPT/HCPCS: 59025; 59050; 85027; 86850; 86900; 99218; J7120; A4216; G0378; J2405

== ENCOUNTER 2018-04-12 15:10 | Outpatient (CLI) | payer BC, SELFPAY | END 2018-04-12 16:10 | disposition home or self-care (01) | LOC: WPOUT 15:31 → WP 15:32 | PROVIDERS: Family Provider Family Medicine; PCP Family Medicine; Referring Provider Obstetrics & Gynecology; Visit Provider Obstetrics & Gynecology | DX: Z39.1 Encounter for care and examination of lactating mother (principal) ==

== ENCOUNTER → 2018-05-22 14:30 | Outpatient (CLI) | payer BC, SELFPAY ==
--- NOTE | 2018-05-22 | SKTAG_PTH ---
PATIENT: LAURA FERNANDEZ LOC: [facility] U#:[id number] AGE/SX: 34/F ROOM: RE05/22/[address]: Dr. Avery Yanez MD : 1990 BED: DIS: SPEC #: [id number] RECD: 05/22/18 14:56 STATUS: NANCY EVA #: [id number] BOBBY: 05/22/18 00:[address]: Avery Yanez DEPT: SURGICAL PATHOLOGY RECD BY: Melquiades Castillo ENTERED: 05/22/18 14:56 SP TYPE: SKIN TAG ELSA DR: Dr. Sangeeta Lange, DO Sangeeta Lange Tissues: Skin of scalp, NOS Procedures: Surgery Specimen Level IV HEADER OPERATION: Excision skin tag, base of scalp PRE-OP DIAGNOSIS: Scalp skin tag, L91.8 TISSUE SUBMITTED: Skin tag, base of scalp MICROSCOPIC DIAGNOSIS Skin tag, base of skull, excision: Intradermal nevus. SJ:alex 05/23/18 MICROSCOPIC DESCRIPTION Slides are reviewed. GROSS DESCRIPTION Received in fixative is one container labeled with the patient's name and designated base of scalp. The specimen consists of an irregular fragment of pink-huang skin measuring 0.6 x 0.5 x 0.2 cm. The specimen is inked, bisected and totally submitted in one cassette. STEVIE/alex 05/22/18 TC: 1 CPT: 38305
== END ==
PROVIDERS: Family Provider Family Medicine; PCP Family Medicine; Referring Provider Surgery; Visit Provider Surgery
DX: L91.8 Other hypertrophic disorders of the skin (principal)
CPT/HCPCS: 88305

== ENCOUNTER 2018-06-04 09:50 | Day surgery (SDC) | payer BC, SELFPAY ==
--- NOTE | 2018-06-04 | HEM_PTH ---
PATIENT: LAURA FERNANDEZ LOC: [facility] [place] U#:[id number] AGE/SX: 27/F ROOM: RE06/04/[address]: Dr. Avery Yanez MD : 1990 BED: DIS: 06/04/2018 SPEC #: [id number] RECD: 06/04/18 13:46 STATUS: NANCY REDivya #: [id number] BOBBY: 06/04/18 00:[address]: Avery Yanez DEPT: SURGICAL PATHOLOGY RECD BY: Melquiades Castillo ENTERED: 06/04/18 13:46 SP TYPE: HEMORRHOID OTHR DR: Dr. Yonas Ya, DO Tissues: HEMORRHOIDS Procedures: Surgery Specimen Level II HEADER OPERATION: Hemorrhoidectomy, fissurectomy PRE-OP DIAGNOSIS: Fissure in anus TISSUE SUBMITTED: Hemorrhoid MICROSCOPIC DIAGNOSIS Hemorrhoid, hemorrhoidectomy: Submucosal organizing hemorrhage, vascular ectasia consistent with hemorrhoid. AM:antwon 06/05/18 MICROSCOPIC DESCRIPTION Slides are reviewed. GROSS DESCRIPTION Received in fixative is one container labeled with the patient's name and designated hemorrhoid. The specimen consists of four variable sized pieces of huang-brown mucosal tissue measuring in aggregate 3.5 x 3 x 1 cm. Sections reveal congested cut surfaces. No mass lesion is identified. Middle School Math Teacher sections are submitted in one cassette. / SJ:antwon 06/04/18 TC:3 CPT: 52839
[2018-06-04 10:13] VITALS: BP 120/76; PULSE 72; RESP 14; TEMP 37; O2SAT 98; BMI 30.9
[2018-06-04 10:39] LABS: Internal QC Validated? YES +Cl - CLEAR BKGD; Pregnancy, Urine Negative Negative
[2018-06-04] MEDS: Cefazolin 2 GM in 0.9% Normal Saline 100 ML IV (11:51)
[2018-06-04] MEDS: Bupivacaine Mpf 0.5% 30 ML VIAL (12:33)
[2018-06-04] MEDS: Dibucaine 30 GM Tube 1 APPLIC (12:47)
--- NOTE | 2018-06-04 12:51 | PCM.OPRPT ---
Problem List (1) External hemorrhoids Status: Acute Report of Operation Date of Procedure: 06/04/18 Pre-Operative Diagnosis: External hemorrhoids and residual skin tags Post-Operative Diagnosis: Same Surgery/Procedure Performed:: Anal skin tag excision and hemorrhoidectomy Specimen's removed: Anal skin tags and hemorrhoid Description of Procedure: The patient was brought back to the operating room and general anesthesia was induced. The patient was then placed in prone jackknife position and the buttocks were taped open. Next a lubricated finger was inserted into the rectum and I was not able to feel any masses. A speculum was placed into the rectum and all 4 quadrants were identified. The patient did have a hemorrhoid at the 3 o'clock position. Patient also has several external skin tags which she says caused her inability to clean herself. The skin tags were elevated and injected with Marcaine. Next the superior skin tag was taken off with an elliptical fashion and the mucosa was reapproximated with a running locked 3-0 chromic suture. Next the 6:00 skin tag was excised with an elliptical incision and the skin was closed with a running locked 3-0 chromic suture. Next the lateral 3:00 hemorrhoid was excised with an elliptical incision and in a vertical fashion from the inside to the outside sutured with a running locked chromic suture. Once this was done the anal area was inspected once more. Hemostasis was good. A digital rectal exam was performed and the sphincter was intact and most of the excisions were done on the external anal canal at the dentate line. A Gelfoam pad was rolled up and dibucaine was placed on the outside of this and it was placed into the rectum. The patient was rolled back over and awoken and taken to PACU in stable condition. - Admit VTE Documentation VTE Mechan Device Prophylaxis: SCD's
--- NOTE | 2018-06-04 12:59 | DCINST_ITS ---
Discharge Diet: No Restrictions Discharge Activity: Return to Normal Activity, May Not Drive - while you are taking narcotic pain medications. Do not drive, work with heavy equipment or sign legal documents for 24 hours after your surgery. Additional Activity Instructions:: Be aware that pain medications may cause nausea. You should typically eat light foods as you take your pain medications. Pain medications may also cause constipation, if you have difficulty with this please discuss with your doctor. Call your doctor if your incision/area has: Continuous Slow Oozing, Sudden Increased Bleeding, Increased Pain/ Swelling, Increased Redness, Foul Smelling Discharge, Swelling at the incision site Call your doctor if you observe: Fever of 101 or Higher Additional Dressing/Incision Instructions:: Leave the operative bandage on for 2 days. If a local anesthetic plug was placed in the anal area, try not to expel for 24-[address] dibucaine ointment on the perianal area as needed. Sitz baths twice daily and after bowel movements. Allergies/Adverse Reactions: Allergies No Known Allergies Allergy (Verified 05/29/18 13:12) Medications to take at Discharge One Daily Tablet 1 tab PO DAILY 01/06/18 Docusate Sodium [Colace] 100 mg PO BID PRN PRN #60 cap 04/05/18 Ibuprofen 600 mg PO TID PRN #30 tab 04/05/18 Polyethylene Glycol 3350 [Miralax] 17 gm PO DAILY 05/29/18 Docusate Sodium [Colace] 100 mg PO BID #60 capsule 06/04/18 Oxycodone HCl/Acetaminophen [Percocet 5/325] 1 - 2 tablet PO Q4H PRN PRN 7 Days #60 tablet 06/04/18 The following prescriptions were given: Oxycodone HCl/Acetaminophen [Percocet 5/325] 1 - 2 tablet PO Q4H PRN PRN 7 Days #60 tablet PRN Reason: Pain Docusate Sodium [Colace] 100 mg PO BID #60 capsule Primary Care Physician: Yonas Ya DO [Primary Care Provider] - Test Results: Test results from this visit will be discussed in further detail at your follow- up appointment, if applicable. Please Follow Up With: Avery Yanez MD When: Please call to schedule 1 week follow up appointment. [phone]
[2018-06-04 13:02] VITALS: BP 120/76; BP 143/81; PULSE 79; RESP 16; TEMP 36.4; O2SAT 95
[2018-06-04 13:15] VITALS: BP 120/76; BP 134/80; PULSE 69; RESP 16; O2SAT 93
[2018-06-04 13:30] VITALS: BP 120/76; BP 143/81; PULSE 72; RESP 16; TEMP 36.2; O2SAT 96
[2018-06-04] MEDS: oxyCODONE 5 MG Tablet PO (14:18)
[2018-06-04 15:30] VITALS: BP 120/76; BP 136/80; PULSE 73; RESP 16; TEMP 36.3; O2SAT 93
== END 2018-06-04 15:31 | disposition home or self-care (01) ==
LOC: SDC 09:51 → AC 09:51
PROVIDERS: Anesthesiology; Family Provider Family Medicine; PCP Family Medicine; Referring Provider Surgery; Visit Provider Surgery
PROC: (CPT 46230; principal; 2018-06-04 11:15)
DX: K64.1 Second degree hemorrhoids (principal); K64.4 Residual hemorrhoidal skin tags; Z79.899 Other long term (current) drug therapy
CPT/HCPCS: 00902; 46230; 46320; 81025; 88302; 88304; J7120; J2405

== ENCOUNTER 2018-07-09 10:48 | Day surgery (SDC) | payer BC, SELFPAY ==
[2018-07-09 11:08] VITALS: BP 119/70; PULSE 80; RESP 18; TEMP 36.3; O2SAT 100; BMI 30.2
[2018-07-09 11:14] LABS: Internal QC Validated? YES +Cl - CLEAR BKGD
[2018-07-09 11:15] LABS: Pregnancy, Urine Negative Negative
[2018-07-09] MEDS: Cefazolin 2 GM in 0.9% Normal Saline 100 ML IV (11:58)
--- NOTE | 2018-07-09 12:25 | SKTAG_PTH ---
PATIENT: LAURA FERNANDEZ LOC: [facility] [place] U#:[id number] AGE/SX: 27/F ROOM: RE07/09/[address]: Dr. Avery Yanez MD : 1990 BED: DIS: 07/09/2018 SPEC #: [id number] RECD: 07/10/18 14:36 STATUS: NANCY REDivya #: [id number] BOBBY: 07/09/18 12:[address]: Avery Yanez DEPT: SURGICAL PATHOLOGY RECD BY: Ramo Hightower ENTERED: 07/11/18 09:14 SP TYPE: SKIN TAG OTHR DR: Dr. Yonas Ya, DO Tissues: Anal region Procedures: Surgery Specimen Level III HEADER OPERATION: Excision anal skin tag and repair anal fissure PRE-OP DIAGNOSIS: Anal fissure TISSUE SUBMITTED: Anal skin tag MICROSCOPIC DIAGNOSIS Anal skin tag, excision: Fibroepithelial polyp, inflamed. Hyperkeratosis. AM:antwon 07/12/18 COMMENT Case has been reviewed in consultation with Dr. Schrader who concurs with the above diagnosis. IDC:SJ MICROSCOPIC DESCRIPTION Slides are reviewed. GROSS DESCRIPTION Received in fixative is one container labeled with the patient's name and designated anal skin tag. The specimen consists of a piece of huang-white skin measuring 1.3 x 0.6 cm and up to 0.5 cm in thickness. The specimen is inked, bisected and submitted entirely in one cassette. / SJ:antwon 07/11/18 TC:1 CPT: 31149
[2018-07-09] MEDS: Bupivacaine 0.5% PF 10 ML VIAL (12:28)
[2018-07-09] MEDS: Dibucaine 30 GM Tube 1 APPLIC (12:30)
--- NOTE | 2018-07-09 12:36 | DCINST_ITS ---
Discharge Diet: No Restrictions Discharge Activity: Return to Normal Activity, May Not Drive - while you are taking narcotic pain medications. Do not drive, work with heavy equipment or sign legal documents for 24 hours after your surgery. Additional Activity Instructions:: Be aware that pain medications may cause nausea. You should typically eat light foods as you take your pain medications. Pain medications may also cause constipation, if you have difficulty with this please discuss with your doctor. Call your doctor if your incision/area has: Continuous Slow Oozing, Sudden Increased Bleeding, Increased Pain/ Swelling, Increased Redness, Foul Smelling Discharge, Swelling at the incision site Call your doctor if you observe: Fever of 101 or Higher Additional Dressing/Incision Instructions:: Change bandage as needed for any bleeding. Place dibucaine ointment on the perianal area as needed. Sitz baths twice daily and after bowel movements. Allergies/Adverse Reactions: Allergies No Known Allergies Allergy (Verified 06/29/18 08:14) Medications to take at Discharge One Daily Tablet 1 tab PO DAILY 01/06/18 Ibuprofen 600 mg PO TID PRN #30 tab 04/05/18 Polyethylene Glycol 3350 [Miralax] 17 gm PO DAILY 05/29/18 Docusate Sodium [Colace] 100 mg PO BID #60 cap 06/04/18 dibucaine 1 % rectal ointment 1 applic RC TID PRN #56.7 g 06/11/18 Oxycodone HCl/Acetaminophen [Percocet 5/325] 1 - 2 tablet PO Q4H PRN PRN 7 Days #60 tablet 07/09/18 The following prescriptions were given: Oxycodone HCl/Acetaminophen [Percocet 5/325] 1 - 2 tablet PO Q4H PRN PRN 7 Days #60 tablet PRN Reason: Pain Primary Care Physician: Yonas Ya DO [Primary Care Provider] - Test Results: Test results from this visit will be discussed in further detail at your follow- up appointment, if applicable. Please Follow Up With: Avery Yanez MD When: Please call to schedule 2 week follow up appointment. [phone]
--- NOTE | 2018-07-09 12:39 | OP.PCM_ITS ---
Problem List (1) External hemorrhoids Status: Acute (2) Anal fissure Status: Acute Report of Operation Date of Procedure: 07/09/18 Pre-Operative Diagnosis: Recurrent anal skin tags as well as anal fissures Post-Operative Diagnosis: Same Surgery/Procedure Performed:: 1. Excision of right lateral anal skin tag. 2. Repair of posterior and anterior anal fissures Specimen's removed: Anal skin tag Description of Procedure: The patient was brought back to the operating room and general anesthesia was induced. The patient was then placed in a prone jackknife position. The gluteal cheeks were spread and taped open. Next the anal canal was inspected with a lubricated finger and a lubricated speculum. There did not appear to be any internal hemorrhoids. The patient had a fissure in the anal canal both posteriorly and anteriorly. Patient also had a skin tag on the right side. The anal and perianal area were anesthetized with Marcaine. The skin tag on the right side was excised fully with harmonic scalpel. Next the anterior and posterior fissures were closed with running 3-0 chromic sutures. This reapprox imated the mucosa well with no breaks. Next dibucaine cream was applied to the anal area and the patient was rolled back onto her back and awoken from anesthesia in stable condition. The patient tolerated the procedure well with minimal bleeding.
[2018-07-09 12:45] VITALS: BP 119/70; BP 129/85; PULSE 78; RESP 16; TEMP 36.4; O2SAT 98
[2018-07-09 13:00] VITALS: BP 119/70; BP 128/78; PULSE 70; RESP 16; O2SAT 100
[2018-07-09 13:15] VITALS: BP 119/70; BP 122/83; PULSE 71; RESP 16; O2SAT 100
[2018-07-09 13:52] VITALS: BP 119/70; BP 137/83; PULSE 73; RESP 16; TEMP 36.3; O2SAT 100
== END 2018-07-09 13:54 | disposition home or self-care (01) ==
LOC: SDC 10:48 → AC 10:49
PROVIDERS: Anesthesiology; Family Provider Family Medicine; PCP Family Medicine; Referring Provider Surgery; Visit Provider Surgery
PROC: (CPT 46220; principal; 2018-07-09 12:10)
DX: K62.0 Anal polyp (principal); L85.9 Epidermal thickening, unspecified; K60.2 Anal fissure, unspecified; K64.4 Residual hemorrhoidal skin tags; Z79.891 Long term (current) use of opiate analgesic
CPT/HCPCS: 46220; 46999; 81025; 88304; J7120; J2405

== ENCOUNTER → 2019-05-17 | Outpatient (CLI) | payer BC, SELFPAY ==
[2019-05-17 12:15] LABS: Absolute Lymphocyte Count 1.64 X10^3/uL (0.83-4.51); Absolute Neutrophil Count 3.1 X10^3/uL (2.0-7.7); Basophil# 0.04 X10^3/uL; Basophil% 0.7 % (0-1); Eosinophil# 0.45 X10^3/uL; Eosinophils% 8.1 % (0-5); Hematocrit 41.3 % (37-47); Hemoglobin 13.6 g/dL (12.0-15.0); Lymphocyte # 1.64 X10^3/ul (4.0); Lymphocyte % 29.3 % (19-41); Mean Corp Hgb Conc 32.9 g/dL (32-36); Mean Corpuscular Hgb 29.4 pg (27.0-32.0); Mean Corpuscular Volume 89.2 fL (81-99); Mean Platelet Vol. 9.4 fl (6.2-12.0); Monocyte# 0.33 X10^3/uL; Monocyte% 5.9 % (0-10); NRBC Flagged by Analyzer 0 % (0-5); Neutrophil # 3.12 X10^3/uL (2.7-7.7); Neutrophil % 55.8 % (47-70); Platelet Count 256 K/mm3 (150-450); RBC Distribution Width CV 12.3 % (11.6-14.6); RBC Distribution Width SD 39.8 fl (35.1-43.9); Red Blood Count 4.63 M/mm3 (4.2-5.4); White Blood Count 5.6 K/mm3 (4.4-11.0)
[2019-05-17 13:08] LABS: ALB/GLOB Ratio 1.1 RATIO (0.9-2.4); AST(SGOT) 10 U/L (15-37); Alanine Aminotransfer ALT/SGPT 17 U/L (13-56); Albumin, Serum 3.9 g/dL (3.2-5.0); Alkaline Phosphatase 67 U/L (45-117); Anion Gap 8 (5-15); BUN 16 mg/dL (7-18); BUN/Creat Ratio 21.2 RATIO (10-20); Calcium,Total 8.9 mg/dL (8.5-10.1); Chloride 106 mmol/L (98-107); Cholesterol 163 mg/dL (200); Creatinine, Serum 0.75 mg/dL (0.55-1.02); EST Glomerular Filtration Rate 96 mL/min (>60); Est Glom Filt Rate - Afr Amer 116 mL/min (>60); Globulin 3.7 g/dL (2.2-4.2); Glucose 79 mg/dL (74-106); High Density Lipoprotein 82 mg/dL; Potassium 3.9 mmol/L (3.5-5.1); Protein, Total 7.6 g/dL (6.4-8.2); Sodium Level 142 mmol/L (136-145); Triglycerides 36 mg/dL; Very Low Density Lipoprotein 7 mg/dL (5-40)
[2019-05-17 13:12] LABS: Vitamin B12 315 pg/mL (211-911)
[2019-05-18 15:48] LABS: V-Zoster IgG (Immunity) 989 index (Immune >165)
[2019-05-20 17:56] LABS: Anti-Nuclear Antibody Test Negative (.)
== END | disposition home or self-care (01) ==
LOC: LAB 11:04
PROVIDERS: Family Provider Family Medicine; PCP Family Medicine; Referring Provider Family Medicine; Visit Provider Family Medicine
DX: Z00.00 Encounter for general adult medical examination without abnormal findings (principal); E53.8 Deficiency of other specified B group vitamins; R76.8 Other specified abnormal immunological findings in serum; Z91.89 Other specified personal risk factors, not elsewhere classified
CPT/HCPCS: 36415; 80053; 80061; 82607; 85025; 86038; 86787

== ENCOUNTER 2019-08-02 03:03 | Emergency (ER) | payer BC, SELFPAY ==
[2019-08-02 03:04] VITALS: BP 138/94; PULSE 84; RESP 14; TEMP 36.8; O2SAT 100; BMI 30.8
[2019-08-02] MEDS: Ondansetron 4 MG/2 ML Vial IV (03:40)
[2019-08-02] MEDS: 0.9% Normal Saline 1,000 ML 999 ML IV (03:40)
[2019-08-02] MEDS: Dicyclomine 20 MG/2 ML Vial IM (03:40)
[2019-08-02 03:45] LABS: Absolute Lymphocyte Count 1.81 X10^3/uL (0.83-4.51); Absolute Neutrophil Count 3.1 X10^3/uL (2.0-7.7); Basophil# 0.03 X10^3/uL; Basophil% 0.5 % (0-1); Eosinophil# 0.11 X10^3/uL; Hematocrit 42.4 % (37-47); Hemoglobin 14.4 g/dL (12.0-15.0); Lymphocyte # 1.81 X10^3/ul (4.0); Lymphocyte % 32.6 % (19-41); Mean Corpuscular Hgb 29.2 pg (27.0-32.0); Monocyte# 0.47 X10^3/uL; Monocyte% 8.5 % (0-10); NRBC Flagged by Analyzer 0 % (0-5); Neutrophil # 3.13 X10^3/uL (2.7-7.7); Neutrophil % 56.2 % (47-70); Platelet Count 238 K/mm3 (150-450); RBC Distribution Width CV 11.9 % (11.6-14.6); RBC Distribution Width SD 37.5 fl (35.1-43.9); Red Blood Count 4.93 M/mm3 (4.2-5.4); White Blood Count 5.6 K/mm3 (4.4-11.0)
[2019-08-02 04:02] LABS: AST(SGOT) 20 U/L (15-37); Alanine Aminotransfer ALT/SGPT 24 U/L (13-56); Albumin, Serum 3.8 g/dL (3.2-5.0); Alkaline Phosphatase 73 U/L (45-117); Anion Gap 5 (5-15); BUN 12 mg/dL (7-18); BUN/Creat Ratio 14.2 RATIO (10-20); Calcium,Total 8.8 mg/dL (8.5-10.1); Chloride 109 mmol/L (98-107); Creatinine, Serum 0.85 mg/dL (0.55-1.02); EST Glomerular Filtration Rate 83 mL/min (>60); Est Glom Filt Rate - Afr Amer 101 mL/min (>60); Estimated Creatinine Clearance 76.54 ml/min; Globulin 3.7 g/dL (2.2-4.2); Glucose 89 mg/dL (74-106); Lipase 86 U/L (73-393); Potassium 3.3 mmol/L (3.5-5.1); Protein, Total 7.5 g/dL (6.4-8.2); Sodium Level 139 mmol/L (136-145)
[2019-08-02 04:11] LABS: Mucous, Urine 0 SEEN /hpf (<or=2+)
[2019-08-02 04:20] LABS: Color, Urine Yellow (Yellow); Glucose, Dipstick Normal (Normal); Ketone-Dipstick Negative (Negative); Leukocyte Esterase-Dipstick Negative /ul (Negative); Nitrite-Dipstick Negative (Negative); Occult Blood-Urine Negative /ul (Negative); Protein-Dipstick Negative (Negative); Specific Gravity, Urine 1.015 (1.002-1.030); Urine Bilirubin Dipstick Negative (Negative); Urine Clarity Clear (Clear); Urine Urobilinogen Normal (Normal)
[2019-08-02 04:23] LABS: Internal QC Validated? YES +Cl - CLEAR BKGD
[2019-08-02 04:25] LABS: Pregnancy, Urine Negative Negative
[2019-08-02 04:27] LABS: Bacteria RARE /hpf (None Seen); Red Blood Cells-Urine 0-5 SEEN /hpf (0-5); Squamous Epithelial Cells - UA 0-5 SEEN /hpf (5-10); White Blood Cells 0-5 SEEN /hpf (0-5)
--- NOTE | 2019-08-02 04:51 | ED.DCSUM_ITS ---
- ER Visit Summary Date of Service: 08/02/19 Chief Complaint: Nausea, vomiting, diarrhea History of Present Illness: The patient is a 28 F with nausea, vomiting, diarrhea for 4 days. This is nonbloody. The patient has been trying Imodium, simethicone, and ibuprofen with minimal improvement. She has associated gas and diffuse abdominal cramping. She was around her sister who had similar symptoms for about a week. No recent antibiotics. No recent travel. History of hemorrhoid and fissure, but no other abdominal surgeries. No fevers. 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 Physical Examination: Afebrile and vital signs unremarkable. Patient appears uncomfortable but not toxic or in distress. Heart regular. Lungs clear. Abdomen soft and nontender. No guarding or rebound. Skin appears normal. Test Results: CBC unremarkable. Potassium 3.3 and chloride 109. Hepatic panel and lipase normal. Urinalysis unremarkable. hCG negative. Stool studies are pending. Emergency Department Course and Treatment: Patient was treated with IV fluids, Bentyl, and Zofran. She had mild improvement. Her abdomen remained soft and nontender on exam. I do not believe that be risks of CT outweigh the potential benefits. I do not believe CT is indicated. Patient voiced understanding. I suspect this is a viral gastroenteritis. Her age, vitals, labs, symptoms, and exam are all reassuring. She will be discharged for outpatient therapy. Stay hydrated. Prescription for Zofran and Bentyl. Follow-up with primary care. Return for any new or worsening issues right away. Treatment Plan: As above Disposition: Discharge Impression: 1. Diarrheal illness This note was generated with [employer] dictation software. It may contain incorrect words, spelling, and punctuation that were not noted in review of the chart prior to signing ED Disposition - Plan for ED Patient: Referrals: Yonas Ya DO [Primary Care Provider] -
--- NOTE | 2019-08-02 04:54 | ED.DEP ---
ED Disposition - Plan for ED Patient: Instructions: VOMITING AND DIARRHEA, Nonspecific (Adult) Prescriptions: Dicyclomine HCl [Bentyl] 20 mg PO TIDAC #20 cap Prescription Printed Ondansetron [Zofran Odt] 4 mg PO Q8H PRN PRN #10 tab PRN Reason: Nausea Prescription Printed Referrals: Yonas Ya DO [Primary Care Provider] -
[2019-08-02 05:16] VITALS: RESP 16
== END 2019-08-02 05:17 | disposition home or self-care (01) ==
PROVIDERS: Emergency Provider Emergency Medicine; PCP Family Medicine
DX: R19.7 Diarrhea, unspecified (principal)
CPT/HCPCS: 80053; 81001; 81025; 83690; 85025; 87493; 87506; 96361; 96372; 96374; 99285; J7030; A4216; J2405

== ENCOUNTER → 2019-08-23 | Outpatient (CLI) | payer BC, SELFPAY ==
[2019-08-02 03:04] VITALS: BMI 30.8
[2019-08-23 14:22] LABS: Vitamin B12 894 pg/mL (211-911)
[2019-08-23 14:22] LABS: T4 Free Direct 0.87 ng/dL (0.76-1.46); Thyroid Stim Hormone (TSH) 1.82 uIU/mL (0.358-3.74)
== END | disposition home or self-care (01) ==
LOC: LAB 13:28
PROVIDERS: PCP Family Medicine; Referring Provider Family Medicine; Visit Provider Family Medicine
DX: E53.8 Deficiency of other specified B group vitamins (principal); R53.83 Other fatigue
CPT/HCPCS: 36415; 82607; 84439; 84443

== ENCOUNTER → 2019-10-14 | Outpatient (CLI) | payer BC, SELFPAY ==
[2019-10-14 21:49] LABS: Chlamydia Trachomatis by PCR Negative (Negative); Neisserai gonorrhoeae by PCR Negative (Negative); Probe Check PASS; Sample Adequacy Control PASS; Specimen Processing Control PASS
[2019-10-16 16:33] LABS: HPV Reflexed? NOT INDICATED
== END | disposition home or self-care (01) ==
PROVIDERS: PCP Family Medicine; Visit Provider Obstetrics & Gynecology
DX: Z12.4 Encounter for screening for malignant neoplasm of cervix (principal); Z11.3 Encounter for screening for infections with a predominantly sexual mode of transmission
CPT/HCPCS: 87491; 87591; 88175; G0145

== ENCOUNTER 2019-11-01 12:24 | Day surgery (SDC) | payer BC, SELFPAY ==
[2019-11-01] VITALS (8 sets, daily range): BP systolic 108–138; BP diastolic 70–94; PULSE 65–89; RESP 15–16; TEMP 36.6–36.9; O2SAT 96–100; BMI 31.4
--- NOTE | 2019-11-01 10:30 | PCM.HP.BLA ---
History and Physical Date of Admission: 11/01/19 Date: 10/31/2019 Name: LAURA FERNANDEZ Age: 28 Date of : 1990 HISTORY OF PRESENT ILLNESS: On 10/31/2019, Laura Fernandez, a 28 year old female 1 0 1 0 1, presented for a suction D and E on 11/01/19: -- Inevitable Miscarriage -- 10 week IUP without FHTs and small pole. Suspicious for blighted ovum. ALLERGIES: NKDA and No Known Drug Allergies MEDICATIONS HISTORY: REVIEW OF SYSTEMS: GENERAL - Denies fever, or chills SKIN - Denies skin changes EYES - Denies visual changes EARS - Denies difficulty hearing NOSE - Denies nasal congestion or bleeding MOUTH - Denies sore throat or difficulty swallowing NECK - Denies pain or swelling RESPIRATORY - Denies shortness of breath or wheezing CARDIOVASCULAR - Denies palpitations or chest pain GASTROINTESTINAL - Denies nausea, vomiting, diarrhea, constipation GENITOURINARY - Denies dysuria, frequency of urination, incontinence of urine MUSCULOSKELETAL - Denies joint or muscle pain NEUROLOGICAL - Denies localized numbness or weakness PSYCHIATRIC - Denies depression or anxiety ENDOCRINE - Denies heat or cold intolerance, weight loss or gain HEMATO-IMMUNOLOGIC - Denies excesive bleeding with cuts PAST HISTORY: Breast/Ovarian/Colon Cancers - Denies Infections - chicken pox as a child Illnesses - seasonal allergies Accidents - no injuries of consequence History of Abnormal PAPS - Denies Hospitalizations - None elective AB; SURGICAL HISTORY: 1. 06/08/2019 Hemoroidectomy 2. 08/09/2018 rectal Fisure Repair 3. elective AB 2006 4. T and A, 03/2015 MENSTRUAL HISTORY: LMP Known?- DefiniteAmount/Duration - 5 days, Regularity - Regular, Frequency - monthly days, LMP - 08/21/19, Age Onset Menarche - 11 PAST PREGNANCIES: Total Pregnancies - 3; Full Term Pregnancies - 1; Premature - 0; Abortions, Induced - 1; Abortions, Spontaneous - 0; Ectopics - 0; Multiple Births - 0; Living Children - 1 FAMILY HISTORY: Father - FH: Hypertension; Mother - Primary fibromyalgia syndrome; Mother - Hypertension; Sister - Hypertension; MaternalGrandparent - kidney disease; PaternalAunt - Cancer; PaternalGrandparent - Cancer; PaternalGrandparent - FH: Diabetes mellitus; SOCIAL HISTORY: Alcohol Use - denies drinking Smoking - Never Diet - balanced Diet, caffeine < 2 drinks per day and Diet Coke. Water intake about 3-4 glasses daily. Lifestyle - low stress lifestyle Exercise - active work and Enc to walk 20 min day. Seat Belt Use - always Employer - 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 Illicit Drug Use - denies use of street drugs Sexual Activity - [employer] Residence - lives with Hours Worked - 20 Spouse-Sig Other Name - Alvarez Fernandez Spouse-Sig Other Occupation - [employer] Spouse-Sig Other Phone No - [phone] Children Name(s) - Yasmine(18) Control - PHYSICAL EXAM BP Systolic: 128 BP Diastolic: 82 Edema: 0 Weight: 170 Urine Dip Protein: - Urine Dip Glucose: - CONSTITUTIONAL - NAD, well nourished, and well developed SKIN - No rash, lesions, or ulcers HEENT - Normocephalic, PERRLA, EOMI NECK - No nodes, no nuchal rigidity and thyroid normal size and texture LYMPH NODES - Palpation of lymph nodes in neck and groins within normal limits LUNGS - CTA x2 without wheezes, crackles or rales CARDIAC - Regular rate and rhythm without rubs, murmurs, or gallops ABDOMEN - Without hepatosplenomegaly, distention, masses, rebound, or guarding; normal bowel sounds; no hernias EXTREMITIES - No edema or calf tenderness NEUROLOGICAL - Cranial nerves II-XII grossly intact PSYCHIATRIC - A and O to time, place, person, mood and affect DETAILED PELVIC EXAM External Genital Vagina - non-tender without lesions Urethra/Urethral Meatus - non-tender Bladder - non-tender Vagina - vaginal villatoro are pink and moist without loss of rugae and no evidence of atropy Cervix - without cervical motion tenderness and has normal size and features without evident lesions Uterus - multiparous size 6 cm & wt 75-125 g Adnexa - clear without masses or tenderness ASSESSMENT: 1. Spontaneous Abort [employer] PLAN BY DIAGNOSIS: 1. Spontaneous Abort [employer] 10 week IUP without fetus present and pole. Suspicious for blighted ovum. Discussed options including expectant management vs proceeding with D and E and pt desires the surgery. Discussed RBAs and all questions answered. Essential Procedure Criteria Procedure Essential: Yes Criteria Note: On 09/24/2019 the [place] Department of Health ([facility]) Public Order signed by [facility] Director Valeria Abraham M.D., regarding the Management of Non-Essential Surgeries and Procedures for the purpose of preserving Personal Protective Equipment (PPE) and critical hospital capacity and resources within [place] went into effect as of 09/25/2019 at 5:00PM. According to the [facility] Public Order: This action will remain in full force and effect until the State of Emergency declared by the Governor no longer exists or the Director of the [facility] rescinds or modifies this Order.. This [facility] order stated all non-essential or elective surgeries and procedures that utilize PPE should be delayed unless there is undue risk to the current or future health of a patient. After reviewing the aforementioned [facility] Public Order and the patients clinical case, I have determined that the scheduled procedure meets the criteria to go forward. Risk to Patient if Procedure Delayed: Risk of rapidly worsening to severe symptoms
[2019-11-01 12:50] LABS: Hematocrit 40.6 % (37-47); Hemoglobin 13.7 g/dL (12.0-15.0); Mean Corp Hgb Conc 33.7 g/dL (32-36); Mean Corpuscular Hgb 29.7 pg (27.0-32.0); Mean Corpuscular Volume 87.9 fL (81-99); Platelet Count 245 K/mm3 (150-450); RBC Distribution Width CV 11.8 % (11.6-14.6); RBC Distribution Width SD 37.7 fl (35.1-43.9); Red Blood Count 4.62 M/mm3 (4.2-5.4); White Blood Count 5.3 K/mm3 (4.4-11.0)
[2019-11-01] MEDS: Lactated Ringers 1,000 ML 100 ML IV (13:16)
--- NOTE | 2019-11-01 14:30 | POC_PTH ---
PATIENT: LAURA FERNANDEZ LOC: [facility] [place] U#:[id number] AGE/SX: 28/F ROOM: RE11/01/[address]: Dr. Dennis Yanez MD : 1990 BED: DIS: 11/01/2019 SPEC #: [id number] RECD: 11/01/19 15:19 STATUS: NANCY EVA #: [id number] BOBBY: 11/01/19 14:[address]: Dennis Yanez DEPT: SURGICAL PATHOLOGY RECD BY: Caterina Erwin ENTERED: 11/04/19 11:17 SP TYPE: PROD CONC OTHR DR: Dr. Yonas Ya, DO Tissues: Product of conception, NOS Procedures: Surgery Specimen Level IV HEADER OPERATION: Dilation and curettage, suction PRE-OP DIAGNOSIS: Inevitable miscarriage, blighted ovum TISSUE SUBMITTED: Products of conception MICROSCOPIC DIAGNOSIS Products of conception: Decidua, immature chorionic villi and gestational endometrium (products of conception). SJ:antwon 11/05/19 MICROSCOPIC DESCRIPTION Slides are reviewed. GROSS DESCRIPTION Received in fixative is one container labeled with the patient's name and designated products of conception. The specimen consists of multiple irregular fragments of light huang soft tissue that in aggregate measure 7 x 6 x 1 cm. parts are not grossly recognized. Insurance Agent portions are submitted in one cassette. / AM:antwon 11/04/19 TC:5 CPT: 54082
--- NOTE | 2019-11-01 14:44 | OP.PCM_ITS ---
Report of Operation Date of Procedure: 11/01/19 Pre-Operative Diagnosis: Inevitable Miscarriage, Blighted Ovum Post-Operative Diagnosis: Inevitable Miscarriage, Blighted Ovum Surgery/Procedure Performed:: Suction Dilation and Evacuation Description of Surgical Findings:: 10 cm endometrial cavity with products of conception Type of Anesthesia:: MAC Anesthesiologist: Brayan Noonan Specimen's removed: Products of conception Estimated Blood Loss (mL): Minimal Fluids Replaced: Crystalloid Description of Procedure: Surgeon: Dennis Yanez MD, FACOG Indication: 28 year old patient with incomplete AB at 10 weeks gestation without FHTs. Likely blighted ovum. Pt has been counseled regarding the risks, benefits, and alternatives of this procedure and all questions were answered. Procedure: Patient was taken to the operating room where she was given IV sedation. The patient was prepped and draped in the usual sterile fashion. The anterior cervix was grasped with a tenaculum and cervix was dilated. A 10 mm suction curette was inserted into the cervix and all contents removed. Uterus w as gently curetted and remaining tissue was removed by reinserting the suction curette. The patient tolerated the procedure well and was taken to the recovery room in satisfactory condition. Sponge, instruments and needle counts were all correct. There were no apparent complications of the surgery. Grafts/Implants Used: None - Admit VTE Documentation VTE Present on Admission: Yes VTE Mechan Device Prophylaxis: SCD's
--- NOTE | 2019-11-01 14:47 | DCINST_ITS ---
Discharge Diet: No Restrictions Discharge Activity: Return to Normal Activity, May Shower, May Take a Tub Bath May resume sexual activity in: 1-2 weeks Call your doctor if you observe: Fever of 101 or Higher, Inability to urinate, Inability to have a bowel movement, Using more than one pad per hour Allergies/Adverse Reactions: Allergies No Known Allergies Allergy (Verified 11/01/19 12:50) Medications to take at Discharge One Daily Tablet 1 tab PO DAILY 01/06/18 Primary Care Physician: Yonas Ya DO [Primary Care Provider] - Test Results: Test results from this visit will be discussed in further detail at your follow- up appointment, if applicable. Please Follow Up With: Dennis Yanez MD When: 2 to 3 weeks
== END 2019-11-01 16:27 | disposition home or self-care (01) ==
LOC: SDC 12:25 → AC 12:26
PROVIDERS: PCP Family Medicine; Referring Provider Obstetrics & Gynecology; Visit Provider Obstetrics & Gynecology
PROC: (CPT 59812; principal; 2019-11-01 14:15)
DX: O03.4 Incomplete spontaneous abortion without complication (principal); O02.0 Blighted ovum and nonhydatidiform mole
CPT/HCPCS: 59812; 36415; 85027; 86850; 86900; 86901; 88305; J7120; J2405

== ENCOUNTER → 2020-01-17 | Outpatient (CLI) | payer BC, SELFPAY ==
[2019-11-01 13:04] VITALS: BMI 31.4
[2020-01-17 16:01] LABS: Chlamydia Trachomatis by PCR Negative (Negative); Neisserai gonorrhoeae by PCR Negative (Negative); Probe Check PASS; Sample Adequacy Control PASS; Specimen Processing Control PASS
== END | disposition home or self-care (01) ==
LOC: LABSPEC 13:17
PROVIDERS: PCP Family Medicine; Visit Provider Obstetrics & Gynecology
DX: O23.40 Unspecified infection of urinary tract in pregnancy, unspecified trimester (principal); Z3A.00 Weeks of gestation of pregnancy not specified
CPT/HCPCS: 87086; 87088; 87491; 87591

== ENCOUNTER → 2020-02-13 11:45 | Outpatient (CLI) | payer BC, SELFPAY ==
[2019-11-01 13:04] VITALS: BMI 31.4
[2020-02-13 13:56] LABS: Absolute Lymphocyte Count 1.81 X10^3/uL (0.83-4.51); Absolute Neutrophil Count 4.7 X10^3/uL (2.0-7.7); Basophil# 0.02 X10^3/uL; Basophil% 0.3 % (0-1); Eosinophil# 0.14 X10^3/uL; Lymphocyte # 1.81 X10^3/ul (4.0); Lymphocyte % 25.7 % (19-41); Mean Corp Hgb Conc 35.1 g/dL (32-36); Mean Corpuscular Hgb 30.6 pg (27.0-32.0); Mean Corpuscular Volume 87.1 fL (81-99); Mean Platelet Vol. 9.8 fl (6.2-12.0); Monocyte# 0.36 X10^3/uL; Monocyte% 5.1 % (0-10); NRBC Flagged by Analyzer 0 % (0-5); Neutrophil # 4.69 X10^3/uL (2.7-7.7); Neutrophil % 66.6 % (47-70); Platelet Count 277 K/mm3 (150-450); RBC Distribution Width SD 37.9 fl (35.1-43.9); Red Blood Count 4.25 M/mm3 (4.2-5.4)
[2020-02-13 14:04] LABS: Amphetamine Urine VISTA NEGATIVE (<1000 ng/mL); Barbiturate Urine VISTA NEGATIVE (< 200 ng/mL); Benzodiazepine Urine VISTA NEGATIVE (< 200 ng/mL); Cocaine Urine VISTA NEGATIVE (< 300 ng/mL); Ecstacy Urine VISTA NEGATIVE (< 500 ng/mL); Methadone Urine VISTA NEGATIVE (< 300 ng/mL); PCP Urine VISTA NEGATIVE (< 25 ng/mL); THC Urine VISTA NEGATIVE (< 50 ng/mL); Vista UDS pH Range 7
[2020-02-13 14:13] LABS: Color, Urine Yellow (Yellow); Glucose, Dipstick Normal (Normal); Ketone-Dipstick Negative (Negative); Leukocyte Esterase-Dipstick Negative /ul (Negative); Nitrite-Dipstick Negative (Negative); Occult Blood-Urine Negative /ul (Negative); Protein-Dipstick Negative (Negative); Urine Bilirubin Dipstick Negative (Negative); Urine Clarity Sl. Cloudy (Clear); Urine Urobilinogen Normal (Normal)
[2020-02-13 14:14] LABS: Thyroid Stim Hormone (TSH) 2.71 uIU/mL (0.358-3.74)
[2020-02-13 15:07] LABS: HIV - WCH Non-Reactive (Nonreactive); Hepatitis B Surface Antigen Non-Reactive (Nonreactive); Hepatitis C Antibody Non-Reactive (Nonreactive); Rubella IgG 20.6 IU/mL
[2020-02-20 11:05] LABS: Prenatal RPR NONREACTIVE (NONREACTIVE)
== END ==
PROVIDERS: PCP Family Medicine; Visit Provider Obstetrics & Gynecology
DX: Z34.81 Encounter for supervision of other normal pregnancy, first trimester (principal)
CPT/HCPCS: 36415; 80307; 81002; 84443; 85025; 86703; 86762; 86803; 87340

== ENCOUNTER → 2020-05-25 09:02 | Outpatient (CLI) | payer BC, SELFPAY ==
[2019-11-01 13:04] VITALS: BMI 31.4
[2020-05-25 10:14] LABS: Absolute Lymphocyte Count 1.56 X10^3/uL (0.83-4.51); Absolute Neutrophil Count 5.9 X10^3/uL (2.0-7.7); Basophil# 0.03 X10^3/uL; Basophil% 0.4 % (0-1); Eosinophil# 0.13 X10^3/uL; Eosinophils% 1.6 % (0-5); Hemoglobin 11.8 g/dL (12.0-15.0); Lymphocyte # 1.56 X10^3/ul (4.0); Lymphocyte % 19.5 % (19-41); Mean Corp Hgb Conc 33.7 g/dL (32-36); Mean Corpuscular Hgb 31.4 pg (27.0-32.0); Mean Corpuscular Volume 93.1 fL (81-99); Mean Platelet Vol. 10.4 fl (6.2-12.0); Monocyte# 0.37 X10^3/uL; Monocyte% 4.6 % (0-10); NRBC Flagged by Analyzer 0 % (0-5); Neutrophil # 5.85 X10^3/uL (2.7-7.7); Neutrophil % 72.9 % (47-70); Platelet Count 206 K/mm3 (150-450); RBC Distribution Width CV 12.6 % (11.6-14.6); RBC Distribution Width SD 43.4 fl (35.1-43.9); Red Blood Count 3.76 M/mm3 (4.2-5.4)
[2020-05-25 10:40] LABS: Glucose Challenge Gest 1H 50g 141 mg/dL (70-140)
== END ==
PROVIDERS: PCP Family Medicine; Referring Provider Obstetrics & Gynecology; Visit Provider Obstetrics & Gynecology
DX: Z34.90 Encounter for supervision of normal pregnancy, unspecified, unspecified trimester (principal)
CPT/HCPCS: 36415; 82950; 85025

== ENCOUNTER → 2020-05-28 11:59 | Outpatient (CLI) | payer BC, SELFPAY ==
[2019-11-01 13:04] VITALS: BMI 31.4
[2020-05-28 12:54] LABS: Glucose GTT-Gestation. Fasting 80 mg/dL (<105)
[2020-05-28 14:31] LABS: Glucose GTT-Gestational 1 Hr 179 mg/dL (<190)
[2020-05-28 16:09] LABS: Glucose GTT-Gestational 3 Hr 79 L (<145)
[2020-05-28 16:09] LABS: Glucose GTT-Gestational 2 Hr 124 mg/dL (<165)
== END ==
PROVIDERS: PCP Family Medicine; Referring Provider Obstetrics & Gynecology; Visit Provider Obstetrics & Gynecology
DX: O24.912 Unspecified diabetes mellitus in pregnancy, second trimester (principal)
CPT/HCPCS: 36415; 82951; 82952

== ENCOUNTER 2020-07-06 10:00 | Outpatient (CLI) | payer BC, SELFPAY ==
[2020-07-06 10:16] VITALS: BP 118/67; PULSE 89
[2020-07-06 10:29] VITALS: BMI 38.0
--- NOTE | 2020-07-20 11:56 | PCM.PN.BLA ---
Progress Note Visit for NST 07/07/20 NST reactive. D/c home
== END 2020-07-06 11:30 | disposition home or self-care (01) ==
LOC: WPOUT 10:03 → WP 10:04
PROVIDERS: PCP Family Medicine; Referring Provider Student in an Organized Health Care Education/Training Program; Visit Provider Student in an Organized Health Care Education/Training Program
DX: Z34.90 Encounter for supervision of normal pregnancy, unspecified, unspecified trimester (principal)
CPT/HCPCS: 59025; 59050; 99218; G0378

== ENCOUNTER 2020-07-09 12:55 | Outpatient (CLI) | payer BC, SELFPAY ==
[2020-07-09 13:12] VITALS: BP 120/76; PULSE 95; TEMP 37.3
[2020-07-09 13:43] VITALS: BMI 38.0
--- NOTE | 2020-07-10 09:13 | OB.TRI.NOTE ---
History of Present Illness Date of Service: 07/09/20 Was patient seen by the physician?: No Reason For Visit: NST Date of Service: 07/09/20 Final RAMSES: 08/24/20 Final RAMSES Source: US <20 weeks Gestational age: 33 Weeks and 3 Days History of Present Illness: 29-year-old G4, P1 with twin gestation for routine nonstress test. Allergies No Known Allergies Allergy (Verified 07/06/20 10:20) - Pertinent Past Medical History Medical History: Past Medical History (Last Reviewed 06/01/20 @ 08:40 by Hodan Matthews) Anal fissure (Acute) External hemorrhoids (Acute) (spontaneous vaginal delivery) (Acute) Surgical History: Past Surgical History (Last Reviewed 06/01/20 @ 08:40 by Hodan Matthews) History of hemorrhoidectomy Onset Date: ~05/2018 History of tonsillectomy Physical Exam Vitals: Vital Signs Temp Pulse BP 99.1 F 95 120/76 07/09/20 13:12 07/09/20 13:12 07/09/20 13:12 NST - FHR Rate Baby A NST Reactive:: Yes FHR Category:: Category I - FHR Rate Baby B NST Reactive:: Yes FHR Category:: Category I Impression/Plan 32+ week intrauterine with twin gestation. Reactive nonstress test x2. Continuing twice weekly nonstress testing and routine care otherwise.
== END 2020-07-09 13:45 | disposition home or self-care (01) ==
LOC: WPOUT 13:01 → WP 13:02
PROVIDERS: PCP Family Medicine; Visit Provider Obstetrics & Gynecology
DX: O30.003 Twin pregnancy, unspecified number of placenta and unspecified number of amniotic sacs, third trimester (principal); Z3A.32 32 weeks gestation of pregnancy
CPT/HCPCS: 59025; 59050; 99218; G0378

== ENCOUNTER 2020-07-14 15:23 | Outpatient (CLI) | payer BC, SELFPAY ==
[2020-07-09 13:12] VITALS: TEMP 36.8; O2SAT 98
[2020-07-14 15:32] VITALS: BMI 38.0
[2020-07-14 15:42] VITALS: BP 120/63; PULSE 88; TEMP 37
--- NOTE | 2020-07-31 17:25 | OB.TRI.NOTE ---
History of Present Illness Date of Service: 07/14/20 Was patient seen by the physician?: No Reason For Visit: NON STRESS TEST TWINS Final RAMSES: 08/31/20 Final RAMSES Source: US <20 weeks Gestational age: 33 Weeks and 1 Days History of Present Illness: 29yo @ 33 1/7wga with di-di twins presenting for scheduled NST. Allergies No Known Allergies Allergy (Verified 07/31/20 10:59) - Pertinent Past Medical History Medical History: Past Medical History (Last Reviewed 06/01/20 @ 08:40 by Hodan Matthews) Anal fissure (Acute) External hemorrhoids (Acute) (spontaneous vaginal delivery) (Acute) Surgical History: Past Surgical History (Last Reviewed 06/01/20 @ 08:40 by Hodan Matthews) History of hemorrhoidectomy Onset Date: ~05/2018 History of tonsillectomy Physical Exam Vitals: Vital Signs Temp Pulse BP Pulse Ox 98.6 F 88 120/63 98 07/14/20 15:42 07/14/20 15:42 07/14/20 15:42 07/09/20 13:12 NST - FHR Rate Baby A Baseline: 130 Variability:: Moderate Accelerations:: 15 x 15 Decelerations:: None NST Reactive:: Yes FHR Category:: Category I Uterine Activity:: 0/10 - FHR Rate Baby B Baseline: 135 Variability:: Moderate Accelerations:: 15 x 15 Decelerations:: None NST Reactive:: Yes FHR Category:: Category I Uterine Activity:: 0/10 Impression/Plan Reactive NST x 2, Dichorionic diamnionic twin gestation d/c home
== END 2020-07-14 16:35 | disposition home or self-care (01) ==
LOC: WPOUT 15:23 → WP 15:24
PROVIDERS: PCP Family Medicine; Referring Provider Obstetrics & Gynecology; Visit Provider Obstetrics & Gynecology
DX: O30.043 Twin pregnancy, dichorionic/diamniotic, third trimester (principal); Z3A.33 33 weeks gestation of pregnancy
CPT/HCPCS: 59025

== ENCOUNTER 2020-07-16 11:36 | Outpatient (CLI) | payer BC, SELFPAY ==
[2020-07-16 11:59] VITALS: BP 140/69; PULSE 90; TEMP 37
[2020-07-16 12:04] VITALS: TEMP 37
[2020-07-16 12:05] VITALS: BP 140/69; PULSE 90
[2020-07-16 12:08] VITALS: BMI 38.2
--- NOTE | 2020-07-30 10:05 | OB.TRI.NOTE ---
History of Present Illness Date of Service: 07/16/20 Was patient seen by the physician?: No Reason For Visit: NST Date of Service: 07/16/20 Final RAMSES: 08/31/20 Final RAMSES Source: US <20 weeks Gestational age: 33 Weeks and 3 Days History of Present Illness: 33+ week twin gestation for routine nonstress test. Allergies No Known Allergies Allergy (Verified 07/14/20 15:33) - Pertinent Past Medical History Medical History: Past Medical History (Last Reviewed 06/01/20 @ 08:40 by Hodan Matthews) Anal fissure (Acute) External hemorrhoids (Acute) (spontaneous vaginal delivery) (Acute) Surgical History: Past Surgical History (Last Reviewed 06/01/20 @ 08:40 by Hodan Matthews) History of hemorrhoidectomy Onset Date: ~05/2018 History of tonsillectomy Physical Exam Vitals: Vital Signs Temp Pulse BP 98.6 F 90 140/69 H 07/16/20 12:04 07/16/20 12:05 07/16/20 12:05 NST - FHR Rate Baby A NST Reactive:: Yes FHR Category:: Category I - FHR Rate Baby B NST Reactive:: Yes FHR Category:: Category I Impression/Plan 33+ week twin gestation for routine nonstress test. Reactive NST x2. Continue present care.
== END 2020-07-16 13:15 | disposition home or self-care (01) ==
LOC: WPOUT 11:37 → WP 11:38
PROVIDERS: PCP Family Medicine; Referring Provider Obstetrics & Gynecology; Visit Provider Obstetrics & Gynecology
DX: O30.003 Twin pregnancy, unspecified number of placenta and unspecified number of amniotic sacs, third trimester (principal); Z3A.33 33 weeks gestation of pregnancy
CPT/HCPCS: 59025; 59050; 99218; G0378

== ENCOUNTER → 2020-07-20 | Outpatient (CLI) | payer BC, SELFPAY ==
[2020-07-16 12:08] VITALS: BMI 38.2
== END | disposition home or self-care (01) ==
LOC: LABSPEC 14:56
PROVIDERS: PCP Family Medicine; Visit Provider Obstetrics & Gynecology
DX: Z36.85 Encounter for antenatal screening for Streptococcus B (principal)
CPT/HCPCS: 87081

== ENCOUNTER → 2020-07-22 13:02 | Outpatient (CLI) | payer BC, SELFPAY ==
[2020-07-16 12:08] VITALS: BMI 38.2
[2020-07-22 14:04] LABS: Hematocrit 31.2 % (37-47); Hemoglobin 10.6 g/dL (12.0-15.0); Mean Corpuscular Hgb 30.5 pg (27.0-32.0); Mean Corpuscular Volume 89.7 fL (81-99); Mean Platelet Vol. 11.3 fl (6.2-12.0); Platelet Count 188 K/mm3 (150-450); RBC Distribution Width CV 13.5 % (11.6-14.6); RBC Distribution Width SD 43.8 fl (35.1-43.9); Red Blood Count 3.48 M/mm3 (4.2-5.4); White Blood Count 7.4 K/mm3 (4.4-11.0)
[2020-07-22 14:10] LABS: Protein, Urine (Random) 36.1 mg/dL (<11.9)
[2020-07-22 14:13] LABS: AST(SGOT) 8 U/L (15-37); Alanine Aminotransfer ALT/SGPT 14 U/L (13-56); Creatinine, Serum 0.59 mg/dL (0.55-1.02); EST Glomerular Filtration Rate 125 mL/min (>60); Est Glom Filt Rate - Afr Amer 152 mL/min (>60); Partial Thromboplast Time 28.6 Seconds (24.1-36.2); Prothrombin Time (Protime)PT. 12.7 SECONDS (11.7-14.9); Uric Acid 4.6 mg/dL (2.6-6.0)
== END ==
PROVIDERS: PCP Family Medicine; Visit Provider Obstetrics & Gynecology
DX: O30.003 Twin pregnancy, unspecified number of placenta and unspecified number of amniotic sacs, third trimester (principal); O13.9 Gestational [pregnancy-induced] hypertension without significant proteinuria, unspecified trimester; Z3A.00 Weeks of gestation of pregnancy not specified
CPT/HCPCS: 36415; 82565; 84156; 84450; 84460; 84550; 85027; 85610; 85730

== ENCOUNTER 2020-07-23 10:55 | Outpatient (CLI) | payer BC, SELFPAY ==
[2020-07-23 11:00] VITALS: BMI 39.3
[2020-07-23 11:25] VITALS: BP 124/75; PULSE 88; TEMP 37.3
--- NOTE | 2020-07-30 10:02 | OB.TRI.NOTE ---
History of Present Illness Date of Service: 07/23/20 Was patient seen by the physician?: No Reason For Visit: NST Date of Service: 07/23/20 Final RAMSES: 08/31/20 Final RAMSES Source: US <20 weeks Gestational age: 34 Weeks and 3 Days History of Present Illness: 34+ week intrauterine with twin gestation presents for routine nonstress test. Allergies No Known Allergies Allergy (Verified 07/14/20 15:33) - Pertinent Past Medical History Medical History: Past Medical History (Last Reviewed 06/01/20 @ 08:40 by Hodan Matthews) Anal fissure (Acute) External hemorrhoids (Acute) (spontaneous vaginal delivery) (Acute) Surgical History: Past Surgical History (Last Reviewed 06/01/20 @ 08:40 by Hodan Matthews) History of hemorrhoidectomy Onset Date: ~05/2018 History of tonsillectomy Physical Exam Vitals: Vital Signs Temp Pulse BP 99.2 F H 88 124/75 H 07/23/20 11:25 07/23/20 11:25 07/23/20 11:25 NST - FHR Rate Baby A NST Reactive:: Yes FHR Category:: Category I - FHR Rate Baby B NST Reactive:: Yes FHR Category:: Category I Impression/Plan 34+ week twin gestation for routine nonstress test. Reactive NST x2. Continuing present care.
== END 2020-07-23 12:05 | disposition home or self-care (01) ==
LOC: WPOUT 10:57 → WP 10:58
PROVIDERS: PCP Family Medicine; Referring Provider Obstetrics & Gynecology; Visit Provider Obstetrics & Gynecology
DX: O30.003 Twin pregnancy, unspecified number of placenta and unspecified number of amniotic sacs, third trimester (principal); Z3A.34 34 weeks gestation of pregnancy
CPT/HCPCS: 59025

== ENCOUNTER 2020-07-29 09:32 | Outpatient (CLI) | payer BC, SELFPAY ==
[2020-07-29 10:03] LABS: 24 Hour Urine Protein 218.4 mg/24HR (<150 MG/24HR); 24HR. UA Prot. Total Volume 1950 mL; Urine Protein (24 Hour) 11.2 mg/dL (<11.9)
[2020-07-29 16:14] VITALS: BP 133/87; PULSE 113
[2020-07-29 16:16] VITALS: BMI 39.7
--- NOTE | 2020-07-30 09:59 | OB.TRI.NOTE ---
History of Present Illness Date of Service: 07/29/20 Was patient seen by the physician?: No Reason For Visit: DECREASED MOVEMENT TWINS Date of Service: 07/29/20 Final RAMSES: 08/31/20 Final RAMSES Source: US <20 weeks Gestational age: 35 Weeks and 2 Days History of Present Illness: 35+ week intrauterine with twin gestation presents with decreased movement of baby on the left. Allergies No Known Allergies Allergy (Verified 07/14/20 15:33) - Pertinent Past Medical History Medical History: Past Medical History (Last Reviewed 06/01/20 @ 08:40 by Hodan Matthews) Anal fissure (Acute) External hemorrhoids (Acute) (spontaneous vaginal delivery) (Acute) Surgical History: Past Surgical History (Last Reviewed 06/01/20 @ 08:40 by Hodan Matthews) History of hemorrhoidectomy Onset Date: ~05/2018 History of tonsillectomy Laboratory Studies: Laboratory Tests 07/29/20 Range/Units 07:00 Urine Collection Time 24.0 (24.0) HOURS Timed Urine Volume 1950 mL Ur Total Protein 24 Hr 218.4 H (<150 MG/24HR) mg/24HR Urine Total Protein 11.2 (<11.9) mg/dL Physical Exam Vitals: Vital Signs Pulse BP 113 H 133/87 H 07/29/20 16:14 07/29/20 16:14 NST - FHR Rate Baby A NST Reactive:: Yes FHR Category:: Category I - FHR Rate Baby B NST Reactive:: Yes FHR Category:: Category I Impression/Plan 35+ week intrauterine twin gestation with decreased movement. Reactive nonstress test x2. Patient now feeling baby moving. Released to home with routine follow-up.
== END 2020-07-29 17:05 | disposition home or self-care (01) ==
LOC: LABSPEC 09:33 → WPOUT 15:59 → WP 16:00
PROVIDERS: PCP Family Medicine; Referring Provider Obstetrics & Gynecology; Visit Provider Obstetrics & Gynecology
DX: O36.8120 Decreased fetal movements, second trimester, not applicable or unspecified (principal); O30.003 Twin pregnancy, unspecified number of placenta and unspecified number of amniotic sacs, third trimester; Z3A.35 35 weeks gestation of pregnancy
CPT/HCPCS: 59025; 59050; 81050; 84156; 99218; G0378

== ENCOUNTER 2020-07-31 10:50 | Outpatient (CLI) | payer BC, SELFPAY ==
[2020-07-31 10:58] VITALS: BMI 41.1
[2020-07-31 11:06] VITALS: BP 135/93; PULSE 105; TEMP 37.3
[2020-07-31 11:34] VITALS: BP 128/76; PULSE 100
--- NOTE | 2020-07-31 11:53 | OB.TRI.NOTE ---
- Problem List (1) Dichorionic diamniotic twin gestation Status: Acute Qualifiers: Trimester: third trimester Qualified Code(s): O30.043 - Twin , dichorionic/diamniotic, third trimester History of Present Illness Date of Service: 07/31/20 Was patient seen by the physician?: No Reason For Visit: NST Final RAMSES: 08/31/20 Final RAMSES Source: US <20 weeks Gestational age: 35 Weeks and 4 Days Allergies No Known Allergies Allergy (Verified 07/31/20 10:59) - Pertinent Past Medical History Medical History: Past Medical History (Last Reviewed 06/01/20 @ 08:40 by Hodan Matthews) Anal fissure (Acute) External hemorrhoids (Acute) (spontaneous vaginal delivery) (Acute) Surgical History: Past Surgical History (Last Reviewed 06/01/20 @ 08:40 by Hodan Matthews) History of hemorrhoidectomy Onset Date: ~05/2018 History of tonsillectomy Physical Exam Vitals: Vital Signs Temp Pulse BP 99.1 F 100 128/76 H 07/31/20 11:06 07/31/20 11:34 07/31/20 11:34 NST - FHR Rate Baby A Baseline: 140 Variability:: Moderate Accelerations:: 15 x 15 Decelerations:: None NST Reactive:: Yes FHR Category:: Category I Uterine Activity:: 0-1/10 - FHR Rate Baby B Baseline: 140 Variability:: Moderate Accelerations:: 15 x 15 Decelerations:: None NST Reactive:: Yes FHR Category:: Category I Uterine Activity:: 0-1/10 Impression/Plan 29yo @ 35 4/7wga with di-di twin gestation -Hx frequent headaches, improved with Tylenol per nursing staff, no scotomata reported however initial BP elevated and pt noted R. eyelid swelling yesterday, now improved. Will obtain preeclamptic labs and if normal d/c home. -Reactive NST x 2.
[2020-07-31 12:25] LABS: Hematocrit 32.7 % (37-47); Mean Corp Hgb Conc 33.6 g/dL (32-36); Mean Corpuscular Hgb 30.2 pg (27.0-32.0); Mean Corpuscular Volume 89.8 fL (81-99); Mean Platelet Vol. 11.3 fl (6.2-12.0); Platelet Count 179 K/mm3 (150-450); RBC Distribution Width CV 13.7 % (11.6-14.6); RBC Distribution Width SD 44.2 fl (35.1-43.9); Red Blood Count 3.64 M/mm3 (4.2-5.4); White Blood Count 7.2 K/mm3 (4.4-11.0)
[2020-07-31 13:04] LABS: ALB/GLOB Ratio 0.7 RATIO (0.9-2.4); AST(SGOT) 13 U/L (15-37); Alanine Aminotransfer ALT/SGPT 14 U/L (13-56); Albumin, Serum 2.3 g/dL (3.2-5.0); Alkaline Phosphatase 126 U/L (45-117); Anion Gap 8 (5-15); BUN 4 mg/dL (7-18); BUN/Creat Ratio 6.4 RATIO (10-20); Calcium,Total 8.4 mg/dL (8.5-10.1); Chloride 109 mmol/L (98-107); Creatinine, Serum 0.62 mg/dL (0.55-1.02); EST Glomerular Filtration Rate 118 mL/min (>60); Est Glom Filt Rate - Afr Amer 143 mL/min (>60); Estimated Creatinine Clearance 103.98 ml/min; Globulin 3.3 g/dL (2.2-4.2); Glucose 103 mg/dL (74-106); Potassium 3.3 mmol/L (3.5-5.1); Protein, Total 5.6 g/dL (6.4-8.2); Sodium Level 138 mmol/L (136-145); Uric Acid 5.7 mg/dL (2.6-6.0)
== END 2020-07-31 13:35 | disposition home or self-care (01) ==
LOC: WPOUT 10:57 → WP 10:57
PROVIDERS: PCP Family Medicine; Referring Provider Obstetrics & Gynecology; Visit Provider Obstetrics & Gynecology
DX: O30.043 Twin pregnancy, dichorionic/diamniotic, third trimester (principal); O26.893 Other specified pregnancy related conditions, third trimester; R51.9 Headache, unspecified; Z3A.35 35 weeks gestation of pregnancy
CPT/HCPCS: 36415; 59025; 59050; 80053; 84550; 85027; 99218; G0378

== ENCOUNTER → 2020-08-03 14:58 | Outpatient (CLI) | payer BC, SELFPAY ==
[2020-07-31 10:58] VITALS: BMI 41.1
[2020-08-03 16:48] LABS: Hematocrit 33.2 % (37-47); Hemoglobin 11.1 g/dL (12.0-15.0); Mean Corp Hgb Conc 33.4 g/dL (32-36); Mean Corpuscular Hgb 30.3 pg (27.0-32.0); Mean Corpuscular Volume 90.7 fL (81-99); Mean Platelet Vol. 11.8 fl (6.2-12.0); Platelet Count 170 K/mm3 (150-450); RBC Distribution Width CV 13.8 % (11.6-14.6); RBC Distribution Width SD 45.5 fl (35.1-43.9); Red Blood Count 3.66 M/mm3 (4.2-5.4); White Blood Count 7.3 K/mm3 (4.4-11.0)
[2020-08-03 16:56] LABS: ALB/GLOB Ratio 0.7 RATIO (0.9-2.4); AST(SGOT) 22 U/L (15-37); Alanine Aminotransfer ALT/SGPT 19 U/L (13-56); Albumin, Serum 2.4 g/dL (3.2-5.0); Alkaline Phosphatase 134 U/L (45-117); Anion Gap 9 (5-15); BUN 8 mg/dL (7-18); BUN/Creat Ratio 11.4 RATIO (10-20); Calcium,Total 8.7 mg/dL (8.5-10.1); Chloride 107 mmol/L (98-107); EST Glomerular Filtration Rate 103 mL/min (>60); Est Glom Filt Rate - Afr Amer 125 mL/min (>60); Globulin 3.3 g/dL (2.2-4.2); Glucose 73 mg/dL (74-106); LDH 151 U/L (84-246); Potassium 4.2 mmol/L (3.5-5.1); Protein, Total 5.7 g/dL (6.4-8.2); Sodium Level 139 mmol/L (136-145)
== END ==
PROVIDERS: PCP Family Medicine; Visit Provider Obstetrics & Gynecology
DX: O12.00 Gestational edema, unspecified trimester (principal); O26.899 Other specified pregnancy related conditions, unspecified trimester; R51.9 Headache, unspecified; O30.009 Twin pregnancy, unspecified number of placenta and unspecified number of amniotic sacs, unspecified trimester; Z3A.00 Weeks of gestation of pregnancy not specified
CPT/HCPCS: 36415; 80053; 83615; 85027

== ENCOUNTER → 2020-08-07 | Outpatient (CLI) | payer BC, SELFPAY ==
[2020-07-31 10:58] VITALS: BMI 41.1
== END | disposition home or self-care (01) ==
LOC: LABSPEC 17:11
PROVIDERS: PCP Family Medicine; Referring Provider Obstetrics & Gynecology; Visit Provider Obstetrics & Gynecology
DX: Z11.52 Encounter for screening for COVID-19 (principal)
CPT/HCPCS: 87635; C9803; U0005; U0003

== ENCOUNTER 2020-08-09 02:15 | Outpatient (CLI) | payer BC, SELFPAY ==
[2020-08-09] VITALS (11 sets, daily range): BP systolic 131–163; BP diastolic 67–104; PULSE 89–106; TEMP 37.1; O2SAT 98; BMI 42.5
[2020-08-09 03:45] LABS: Absolute Lymphocyte Count 1.34 X10^3/uL (0.83-4.51); Absolute Neutrophil Count 5.3 X10^3/uL (2.0-7.7); Basophil# 0.02 X10^3/uL; Basophil% 0.3 % (0-1); Eosinophil# 0.07 X10^3/uL; Eosinophils% 0.9 % (0-5); Hematocrit 31.7 % (37-47); Hemoglobin 10.6 g/dL (12.0-15.0); Lymphocyte # 1.34 X10^3/ul (4.0); Lymphocyte % 18.1 % (19-41); Mean Corp Hgb Conc 33.4 g/dL (32-36); Mean Corpuscular Hgb 30.4 pg (27.0-32.0); Mean Corpuscular Volume 90.8 fL (81-99); Mean Platelet Vol. 11.5 fl (6.2-12.0); Monocyte# 0.57 X10^3/uL; Monocyte% 7.7 % (0-10); NRBC Flagged by Analyzer 0 % (0-5); Neutrophil # 5.28 X10^3/uL (2.7-7.7); Neutrophil % 71.5 % (47-70); Platelet Count 153 K/mm3 (150-450); RBC Distribution Width SD 46.4 fl (35.1-43.9); Red Blood Count 3.49 M/mm3 (4.2-5.4); White Blood Count 7.4 K/mm3 (4.4-11.0)
[2020-08-09 03:48] LABS: Color, Urine Yellow (Yellow); Glucose, Dipstick Normal (Normal); Ketone-Dipstick 5 mg/dl (Negative); Leukocyte Esterase-Dipstick Negative /ul (Negative); Nitrite-Dipstick Negative (Negative); Occult Blood-Urine Negative /ul (Negative); Protein-Dipstick 15 mg/dl (Negative); Urine Bilirubin Dipstick Negative (Negative); Urine Clarity Clear (Clear); Urine Urobilinogen Normal (Normal)
[2020-08-09 03:55] LABS: Protein:Creat Ratio 226 mg/g CRE (0-200)
[2020-08-09 04:05] LABS: ALB/GLOB Ratio 0.7 RATIO (0.9-2.4); AST(SGOT) 21 U/L (15-37); Alanine Aminotransfer ALT/SGPT 22 U/L (13-56); Albumin, Serum 2.3 g/dL (3.2-5.0); Alkaline Phosphatase 143 U/L (45-117); Anion Gap 11 (5-15); BUN 7 mg/dL (7-18); BUN/Creat Ratio 11.8 RATIO (10-20); Calcium,Total 8.5 mg/dL (8.5-10.1); Chloride 111 mmol/L (98-107); Creatinine, Serum 0.59 mg/dL (0.55-1.02); EST Glomerular Filtration Rate 125 mL/min (>60); Est Glom Filt Rate - Afr Amer 151 mL/min (>60); Estimated Creatinine Clearance 109.27 ml/min; Globulin 3.2 g/dL (2.2-4.2); Glucose 114 mg/dL (74-106); LDH 133 U/L (84-246); Potassium 3.4 mmol/L (3.5-5.1); Protein, Total 5.5 g/dL (6.4-8.2); Sodium Level 142 mmol/L (136-145)
--- NOTE | 2020-08-09 04:33 | VDLE_ITS ---
Reason For Study: pain RIGHT LEFT GSV is normal. GSV is normal. CFV is compressible, spontaneous, phasic, CFV is compressible, spontaneous, phasic, competent and demonstrates normal competent, and demonstrates normal augmentation. augmentation. FV is compressible, spontaneous, phasic, FV is compressible, spontaneous, phasic, competent and demonstrates normal competent and demonstrates normal augmentation. augmentation. POP V is compressible, spontaneous, phasic, POP V is compressible, spontaneous, phasic, competent and demonstrates normal competent and demonstrates normal augmentation. augmentation. T/P Trunk is compressible. T/P Trunk is compressible. PTV is compressible. PTV is compressible. RT PerV is compressible. LT PerV is compressible. Procedure Exam performed portable in patient room. The exam was diagnostic. A preliminary report was called and/or faxed to the pt's RN. Interpretation Summary Deep veins of the lower extremities are bilaterally patent and compressible segmentally. There is no evidence of deep vein thrombosis on either side. Valvular competence appears intact within the proximal deep venous systems bilaterally. The great saphenous veins appear bilaterally patent and compressible segmentally. Ordering Physician: Rosanna Coyle Performed By: Kirk Arias RVT
[2020-08-09] MEDS: Mag Hydrox/Al Hydrox/Simeth 30 ML UDC PO (05:09)
--- NOTE | 2020-08-09 10:40 | OB.TRI.HP_ITS ---
History of Present Illness Date of Service: 08/09/20 Reason For Visit: Leg swelling Date of Service: 08/09/20 Final RAMSES: 08/31/20 Final RAMSES Source: US <20 weeks Gestational age: 36 Weeks and 6 Days History of Present Illness: 29-year-old G4, P1 at 36 weeks and 6 days with RAMSES: 08/31/2019 1 x 6-week ultrasound arrives with left leg swelling and pain that started overnight. Patient with longstanding history of swelling of the hands and feet but with increased swelling and pain in the left leg. Patient denies headache, chest pain, shortness of breath, nausea vomiting, right upper quadrant pain. Patient states good movement. Denies leakage of fluid or vaginal bleeding. Allergies No Known Allergies Allergy (Verified 08/09/20 02:56) - Pertinent Past Medical History Medical History: Past Medical History (Last Reviewed 06/01/20 @ 08:40 by Hodan Matthews) Anal fissure (Acute) External hemorrhoids (Acute) (spontaneous vaginal delivery) (Acute) Surgical History: Past Surgical History (Last Reviewed 06/01/20 @ 08:40 by Hodan Matthews) History of hemorrhoidectomy Onset Date: ~05/2018 History of tonsillectomy Laboratory Studies: Laboratory Tests 08/09/20 08/09/20 08/09/20 Range/Units 03:30 03:30 03:30 WBC (4.4-11.0) K/mm3 RBC (4.2-5.4) M/mm3 Hgb (12.0-15.0) g/dL Hct (37-47) % MCV (81-99) fL MCH (27.0-32.0) pg MCHC (32-36) g/dL RDW Std Deviation (35.1-43.9) fl RDW Coeff of Oneil (11.6-14.6) % Plt Count (150-450) K/mm3 MPV (6.2-12.0) fl Immature Gran % (Auto) (0.0-0.9) % Neut % (Auto) (47-70) % Lymph % (Auto) (19-41) % [place] % (Auto) (0-10) % Eos % (Auto) (0-5) % Baso % (Auto) (0-1) % Absolute Neuts (auto) (2.0-7.7) X10^3/uL Absolute Lymphs (auto) (0.83-4.51) X10^3/uL Nucleated RBC % (0-5) % Sodium 142 (136-145) mmol/L Potassium 3.4 L (3.5-5.1) mmol/L Chloride 111 H (98-107) mmol/L Carbon Dioxide 20.0 L (21.0-32.0) mmol/L Anion Gap 11 (5-15) BUN 7 (7-18) mg/dL Creatinine 0.59 (0.55-1.02) mg/dL Estim Creat Clear Calc 109.27 ml/min Est GFR (MDRD) Af Amer 151 (>60) mL/min Est GFR (MDRD) Non-Af 125 (>60) mL/min BUN/Creatinine Ratio 11.8 (10-20) RATIO Glucose 114 H (74-106) mg/dL Calcium 8.5 (8.5-10.1) mg/dL Total Bilirubin 0.30 (0.20-1.00) mg/dL AST 21 (15-37) U/L ALT 22 (13-56) U/L Alkaline Phosphatase 143 H (45-117) U/L Lactate Dehydrogenase 133 (84-246) U/L Total Protein 5.5 L (6.4-8.2) g/dL Albumin 2.3 L (3.2-5.0) g/dL Globulin 3.2 (2.2-4.2) g/dL Albumin/Globulin Ratio 0.7 L (0.9-2.4) RATIO Urine Color Yellow (Yellow) Urine Clarity Clear (Clear) Urine pH 6.0 (5.0 - 8.0) Ur Specific [place] 1.020 (1.002-1.030) Urine Protein 15 H (Negative) mg/dl Urine Glucose (UA) Normal (Normal) mg/dl Urine Ketones 5 H (Negative) mg/dl Urine Occult Blood Negative (Negative) /ul Urine Nitrite Negative (Negative) Urine Bilirubin Negative (Negative) mg/dL Urine Urobilinogen Normal (Normal) mg/dl Ur Leukocyte Esterase Negative (Negative) /ul U Random Total Protein 26.0 H (<11.9) mg/dL Urine Creatinine 115.00 (NO RANGE EST.) mg/dL Protein/Creatinin Ratio 226 H (0-200) mg/g CRE 08/09/20 Range/Units 03:30 WBC 7.4 (4.4-11.0) K/mm3 RBC 3.49 L (4.2-5.4) M/mm3 Hgb 10.6 L (12.0-15.0) g/dL Hct 31.7 L (37-47) % MCV 90.8 (81-99) fL MCH 30.4 (27.0-32.0) pg MCHC 33.4 (32-36) g/dL RDW Std Deviation 46.4 H (35.1-43.9) fl RDW Coeff of Oneil 14.0 (11.6-14.6) % Plt Count 153 (150-450) K/mm3 MPV 11.5 (6.2-12.0) fl Immature Gran % (Auto) 1.500 H (0.0-0.9) % Neut % (Auto) 71.5 H (47-70) % Lymph % (Auto) 18.1 L (19-41) % [place] % (Auto) 7.7 (0-10) % Eos % (Auto) 0.9 (0-5) % Baso % (Auto) 0.3 (0-1) % Absolute Neuts (auto) 5.3 (2.0-7.7) X10^3/uL Absolute Lymphs (auto) 1.34 (0.83-4.51) X10^3/uL Nucleated RBC % 0 (0-5) % Sodium (136-145) mmol/L Potassium (3.5-5.1) mmol/L Chloride (98-107) mmol/L Carbon Dioxide (21.0-32.0) mmol/L Anion Gap (5-15) BUN (7-18) mg/dL Creatinine (0.55-1.02) mg/dL Estim Creat Clear Calc ml/min Est GFR (MDRD) Af Amer (>60) mL/min Est GFR (MDRD) Non-Af (>60) mL/min BUN/Creatinine Ratio (10-20) RATIO Glucose (74-106) mg/dL Calcium (8.5-10.1) mg/dL Total Bilirubin (0.20-1.00) mg/dL AST (15-37) U/L ALT (13-56) U/L Alkaline Phosphatase (45-117) U/L Lactate Dehydrogenase (84-246) U/L Total Protein (6.4-8.2) g/dL Albumin (3.2-5.0) g/dL Globulin (2.2-4.2) g/dL Albumin/Globulin Ratio (0.9-2.4) RATIO Urine Color (Yellow) Urine Clarity (Clear) Urine pH (5.0 - 8.0) Ur Specific [place] (1.002-1.030) Urine Protein (Negative) mg/dl Urine Glucose (UA) (Normal) mg/dl Urine Ketones (Negative) mg/dl Urine Occult Blood (Negative) /ul Urine Nitrite (Negative) Urine Bilirubin (Negative) mg/dL Urine Urobilinogen (Normal) mg/dl Ur Leukocyte Esterase (Negative) /ul U Random Total Protein (<11.9) mg/dL Urine Creatinine (NO RANGE EST.) mg/dL Protein/Creatinin Ratio (0-200) mg/g CRE Review of Systems Constitutional: Denies: Chills, Fever, Weight Change HEENT: Denies: Head Aches, Sinus Congestion, Sinus Drainage Cardiovascular: Denies: Chest Pain, Palpitations Respiratory: Denies: Cough, Shortness of breath at rest, Sputum production Gastrointestinal: Denies: Abdominal Pain, Nausea, Vomiting Genitourinary: Denies: Dysuria Musculoskeletal: Reports: Leg Pain. Denies: Joint Pain, Joint Tenderness Skin: Denies: Rash, Wounds Neurological: Denies: Numbness, Tingling, Focal weakness Psychiatric: Denies: Anxiety, Depression, Homicidal Ideations, Suicidal Ideations Hematologic/ Lymphatic: Denies: Easy Bruising, Easy Bleeding Physical Exam Vitals: Vital Signs Temp Pulse BP Pulse Ox 98.7 F 93 144/67 H 98 08/09/20 02:43 08/09/20 08:16 08/09/20 08:16 08/09/20 02:43 General: Alert, Oriented x3, Cooperative, No apparent distress HEENT: Atraumatic, PERRLA, Normocephalic Abdomen: Soft, Non Tender, Gravid, - - Negative for right upper quadrant pain Extremities:: No clubbing, No cyanosis, Other - Mild swelling of the upper and lower extremities +1 edema. Bilaterally negative Homans' sign. Swelling in lower extremities even no erythema or tenderness bilaterally Neurological: Neuro grossly intact, - - Negative lower extremity clonus bilaterally NST - FHR Rate Baby A Baseline: 140 Variability:: Moderate Accelerations:: 15 x 15 Decelerations:: None NST Reactive:: Yes Uterine Activity:: quiet - FHR Rate Baby B Baseline: 130 Variability:: Moderate Accelerations:: 15 x 15 Decelerations:: None NST Reactive:: Yes Uterine Activity:: quiet Impression/Plan 29-year-old G4, P1 at 36 weeks and 6 days with Nikolas twins with left lower extremity swelling. Bilateral venous Dopplers within normal limits, no signs of DVT. Exam reassuring. Blood pressures 130s 140s over 80s to 90s. Patient otherwise asymptomatic. HELLP labs within normal limits. Based on these findings now with diagnosis of gestational hypertension. In the setting due for induction tomorrow at 37 weeks. We will schedule. Covid test pending. Discussed results with patient risk benefits alternatives given, all questions were answered and consent was signed. To discharge home, precautions given. [facility]
== END 2020-08-09 10:50 | disposition home or self-care (01) ==
LOC: WPOUT 02:17 → WP 02:18
PROVIDERS: PCP Family Medicine; Visit Provider Student in an Organized Health Care Education/Training Program
DX: O13.3 Gestational [pregnancy-induced] hypertension without significant proteinuria, third trimester (principal); O26.893 Other specified pregnancy related conditions, third trimester; M79.89 Other specified soft tissue disorders; O30.043 Twin pregnancy, dichorionic/diamniotic, third trimester; Z3A.36 36 weeks gestation of pregnancy
CPT/HCPCS: 36415; 59025; 59050; 80053; 81002; 82570; 83615; 84156; 85025; 93970; 99218; G0378

== ENCOUNTER 2020-08-10 07:00 | Inpatient (IN) | payer BC, SELFPAY ==
[2020-08-09 02:55] VITALS: BMI 42.5
[2020-08-10] VITALS (62 sets, daily range): BP systolic 107–161; BP diastolic 56–96; PULSE 67–118; RESP 18; TEMP 36.6–37.6; O2SAT 85–100; BMI 42.3
[2020-08-10] MEDS: 0.9% Saline Lock 10 ML Syringe IV (07:50)
[2020-08-10 08:12] LABS: Absolute Lymphocyte Count 1.37 X10^3/uL (0.83-4.51); Absolute Neutrophil Count 5.3 X10^3/uL (2.0-7.7); Basophil# 0.03 X10^3/uL; Basophil% 0.4 % (0-1); Eosinophil# 0.07 X10^3/uL; Eosinophils% 0.9 % (0-5); Hematocrit 33.5 % (37-47); Hemoglobin 11.3 g/dL (12.0-15.0); Lymphocyte # 1.37 X10^3/ul (4.0); Lymphocyte % 18.3 % (19-41); Mean Corp Hgb Conc 33.7 g/dL (32-36); Mean Corpuscular Hgb 30.5 pg (27.0-32.0); Mean Corpuscular Volume 90.5 fL (81-99); Mean Platelet Vol. 11.8 fl (6.2-12.0); Monocyte# 0.59 X10^3/uL; Monocyte% 7.9 % (0-10); NRBC Flagged by Analyzer 0 % (0-5); Neutrophil # 5.33 X10^3/uL (2.7-7.7); Platelet Count 174 K/mm3 (150-450); RBC Distribution Width CV 14.1 % (11.6-14.6); RBC Distribution Width SD 46.5 fl (35.1-43.9); White Blood Count 7.5 K/mm3 (4.4-11.0)
[2020-08-10] MEDS: Lactated Ringers 1,000 ML 50 ML IV ×2 (08:24→14:26)
[2020-08-10] MEDS: Oxytocin 30 units/NS 500 ml 30 UNITS/500 ML IV.SOLN IV (08:40)
--- NOTE | 2020-08-10 08:49 | HP.PCM_ITS ---
History and Physical Chief complaint: Induction of laborDiDi twins gestational hypertension History of present illness: 29-year-old G4, P1 at 37 weeks and 0 days with RAMSES: 08/31/2019 1 x 6-week ultrasound arrives for induction of labor of di-di twins for gestational hypertension. Patient denies headache, chest pain, shortness of breath, visual changes, nausea vomiting, right upper quadrant pain. States good movement, denies leakage of fluid, denies vaginal bleeding. Obstetric history G1: SAB 04/09/2007 G2: 41-week male 04/07/2018 G3: SAB 10/28/2019 G4: Current Past medical history: None Medications: vitamin Past surgical history: D&C, tonsils and adenoids, rectal fissure repair, hemorrhoidectomy Allergies: No known drug allergies Family history: Denies history of DVT PE Social history: Denies smoking, alcohol, drug use Review of systems: Besides the above pertinent positives a full review of systems was performed and found to be negative Physical exam: Vital Signs Pulse BP Pulse Ox 08/10/20 08:47 88 100 08/10/20 08:00 88 99 08/10/20 07:41 94 132/83 H General: Normal-appearing no acute distress HEENT: Normocephalic atraumatic no cervical lymphadenopathy Cardiac: Regular rate and rhythm no murmurs rubs or gallops Respiratory: Clear to auscultation bilaterally no wheeze rales or crackles Abdomen: Soft, nontender, gravid Pelvic exam: Cervical exam closed thick and high heart tones: Baby A 120/moderate per ability/positive accelerations/negative decelerations baby B broken tracing overall 110/moderate variability/negative accelerations/negative decelerations [place]: Every 5 minutes Bedside Ultrasound: Baby A vertex baby B vertex Mom's Labs & Results 08/10/20 08/10/20 07:50 07:50 WBC 7.5 RBC 3.70 L Hgb 11.3 L Hct 33.5 L MCV 90.5 MCH 30.5 MCHC 33.7 RDW Std Deviation 46.5 H RDW Coeff of Oneil 14.1 Plt Count 174 MPV 11.8 Immature Gran % (Auto) 1.500 H Neut % (Auto) 71.0 H Lymph % (Auto) 18.3 L [place] % (Auto) 7.9 Eos % (Auto) 0.9 Baso % (Auto) 0.4 Absolute Neuts (auto) 5.3 Absolute Lymphs (auto) 1.37 Nucleated RBC % 0 Blood Type A POSITIVE Antibody Screen NEGATIVE Assessment and plan: 29-year-old G4, P1 at 37 weeks and 0 days for induction of labor of di-di twins with gestational hypertension. Help labs yesterday within normal limits. We will continue to monitor blood pressures and treat appropriately. -[facility] -With contractions will proceed with Pitocin induction -Anesthesia to see
[2020-08-10] MEDS: fentaNYL-bupivacaine (epidural) 100 ML BAG EPIDURAL ×2 (10:32→14:39)
[2020-08-10] MEDS: Lactated Ringers 500 ML 999 ML IV (10:40)
[2020-08-10] MEDS: Ondansetron 4 MG/2 ML Vial IV (12:12)
[2020-08-10] MEDS: proCHLORPERazine 10 MG/2 ML Vial IV (14:25)
[2020-08-10] MEDS: Oxytocin 30 units/NS 500 ml 30 UNITS/500 ML IV.SOLN 334 UNITS IV (18:24)
[2020-08-10] MEDS: miSOPROStol 200 MCG Tablet 1000 MCG RECTAL (18:41)
--- NOTE | 2020-08-10 18:52 | PCM.OPRPT ---
Vaginal Delivery Date of Procedure: 08/10/20 Pre-Operative Diagnosis: Term, lynn twins, gestational hypertension Post-Operative Diagnosis: Term, lynn twins, gestational hypertension Surgery/ Procedure Performed: Spontaneous Vaginal Delivery Type of Anesthesia: Epidural Description of Procedure: Normal spontaneous vaginal delivery of di-di twins. Baby A viable female infant, direct OA. Head and shoulders delivered with ease. Cord cut and clamped. Baby handed off to nursing. Baby B viable male , GEETHA. Head and shoulders delivered with ease. Cord cut and clamped. Baby handed off to nursing. Placenta is x2 delivered with fundal massage and cord traction. Midline second-degree perineal laceration noted and repaired in typical fashion. 1000 mcg of Cytotec VT was placed. Baby A 8/9 baby B Apgars 8/9 EBL 400 cc.
--- NOTE | 2020-08-10 18:56 | DCINST_ITS ---
<Marin Coyle - Last Filed: 08/11/20 08:52> Discharge Diet: No Restrictions Discharge Activity: Return to Normal Activity, May Drive, May Shower May resume sexual activity in: 6 weeks Weight Bearing Status: Weight bearing as tolerated Call your doctor if your incision/area has: Foul Smelling Discharge Call your doctor if you observe: Fever of 101 or Higher, Shortness of breath, Chest pain Additional Instructions: If you experience any of the following, contact your healthcare provider. * Bleeding that soaks a pad every hour for 2 hours * Fever 100.4 or higher * Unrelieved incision or abdominal pain * Swelling, redness, discharge or bleeding from your incision or episiotomy site * Your incision begins to separate * Problems urinating (including inability to urinate or burning while urinating). * Visual changes * Severe headache * Flu-like symptoms * Pain or redness in one of both of your breasts * Pain, warmth, tenderness or swelling in your legs, especially the calf area * Frequent nausea and vomiting * Symptoms of depression or anxiety If you experience any of the following, call 911 or go to the nearest Emergency Room. * Chest pain * Problems breathing * Seizure activity * Partial or complete paralysis of a body part, slurred speech, weakness or drooping of the face, or a sudden inability to walk or hold your balance Allergies/Adverse Reactions: Allergies No Known Allergies Allergy (Verified 08/10/20 07:39) Medications to take at Discharge One Daily Tablet 1 tab PO DAILY 01/06/18 docusate sodium 100 mg capsule 100 mg PO DAILY 06/01/20 Famotidine [Pepcid] 20 mg PO BID 07/06/20 Please Follow Up With: Marin Coyle MD When: 1 week for blood pressure check. 4 to 6 weeks for visit Primary Care Physician: Yonas Ya DO [Primary Care Provider] - Test Results: Test results from this visit will be discussed in further detail at your follow- up appointment, if applicable. <Anneliese Lazaro - Last Filed: 08/12/20 07:55> Additional Instructions: If you experience any of the following, contact your healthcare provider. * Bleeding that soaks a pad every hour for 2 hours * Fever 100.4 or higher * Unrelieved incision or abdominal pain * Swelling, redness, discharge or bleeding from your incision or episiotomy site * Your incision begins to separate * Problems urinating (including inability to urinate or burning while urinating). * Visual changes * Severe headache * Flu-like symptoms * Pain or redness in one of both of your breasts * Pain, warmth, tenderness or swelling in your legs, especially the calf area * Frequent nausea and vomiting * Symptoms of depression or anxiety If you experience any of the following, call 911 or go to the nearest Emergency Room. * Chest pain * Problems breathing * Seizure activity * Partial or complete paralysis of a body part, slurred speech, weakness or drooping of the face, or a sudden inability to walk or hold your balance Test Results: Test results from this visit will be discussed in further detail at your follow- up appointment, if applicable.
[2020-08-10] MEDS: Ibuprofen 600 MG Tablet PO (20:44)
--- NOTE | 2020-08-10 20:57 | NURSING ---
1811-hercules catheter dc'd on own after delivery of baby A with balloon intact (still blown up with saline)
[2020-08-11] MEDS: Acetaminophen 500 MG Tablet 1000 MG PO (02:47)
[2020-08-11 04:43] VITALS: BP 154/74; PULSE 85; RESP 18; TEMP 36.7; O2SAT 97
--- NOTE | 2020-08-11 08:49 | PCM.PN.OB ---
Subjective: No overnight complaints. Pain well controlled. Minimal lochia. - Physical Exam Vitals/I&O's: Vital Signs Temp Pulse Resp BP Pulse Ox 98.0 F 85 18 154/74 H 97 08/11/20 04:43 08/11/20 04:43 08/11/20 04:43 08/11/20 04:43 08/11/20 04:43 Oxygen Delivery Method Room Air Weight: 231 lb 0.711 oz Body Mass Index (BMI) 42.3 Intake and Output for Last 24 Hours 08/09/20 08/10/20 08/11/20 23:59 23:59 23:59 Intake Total 3350.83 / 3350.83 Output Total 750 / 750 600 / 600 Balance 2600.83 / 2600.83 -600 / -600 General: Alert, Oriented x3, Cooperative, No apparent distress, Well developed, Well nourished HEENT: Atraumatic, Normocephalic Oral: Moist Mucosa Neck: Supple Abdomen: Soft, Non Tender, - - Uterus firm and below umbilicus Extremities: No clubbing, No cyanosis Neurological: Neuro grossly intact Psych/Mental Status: Normal Affect, Appropriate, Alert and oriented to time, place, person, mood and affect Laboratory Results 08/10/20 07:50: Blood Type A POSITIVE, Antibody Screen NEGATIVE Current Medications Acetaminophen (Acetaminophen 500 Mg Tablet) 1,000 mg PO Q8H PRN PRN PRN Reason: Pain Score 1-3 Last Admin: 08/11/20 02:47 Dose: 1,000 mg Documented by: Bisacodyl (Bisacodyl 10 Mg Suppository) 10 mg RECTAL UD PRN PRN Reason: If no BM Dibucaine (Dibucaine 30 Gm Tube) 1 applic TOPICAL TID PRN PRN; Protocol PRN Reason: Discomfort Hydrocortisone (Hydrocortisone 2.5% Crm) 1 applic TOPICAL TID PRN PRN; Protocol PRN Reason: Discomfort Ibuprofen (Ibuprofen 600 Mg Tablet) 600 mg PO Q6H PRN PRN PRN Reason: Pain Score 1-3 Last Admin: 08/10/20 20:44 Dose: 600 mg Documented by: Ondansetron HCl (Ondansetron 4 Mg/2 Ml Vial) 4 mg IV Q4H PRN PRN PRN Reason: Nausea Oxycodone HCl (Oxycodone 5 Mg Tablet) 5 mg PO Q4H PRN PRN PRN Reason: Pain Score 4-10 Senna/Docusate Sodium (Senna/Docusate Sodium 1 Tablet) 1 - 2 tablet PO DAILY PRN PRN PRN Reason: Constipation Simethicone (Simethicone 80 Mg Tablet) 80 mg PO PCHS PRN PRN Reason: Indigestion/Stomach pain Sodium Chloride (0.9% Saline Lock 10 Ml Syringe) 5 - 15 ml IV UD PRN PRN Reason: SALINE FLUSH Medical Necessity - Tobacco Use Smoking Status: Never smoker Assessment/Plan All Active Problems (Last Reviewed 06/01/20 @ 08:40 by Hodan Matthews) Dichorionic diamniotic twin gestation (Acute) Anal fissure (Acute) External hemorrhoids (Acute) (spontaneous vaginal delivery) (Acute) day 1 status post 37-week delivery of di-di twins with gestational hypertension. We will continue to monitor blood pressures, if baseline is 150s systolic or notes severe range blood pressures will start p.o. blood pressure medication. Patient currently asymptomatic. Breast-feeding. Likely discharge home tomorrow.
[2020-08-11 08:55] VITALS: BP 151/67; PULSE 71; RESP 16; TEMP 36.3; O2SAT 98
[2020-08-11] MEDS: Ibuprofen 600 MG Tablet PO ×2 (09:02→20:39)
[2020-08-11 12:04] VITALS: BP 136/76; PULSE 86
[2020-08-11 12:28] VITALS: O2SAT 97
[2020-08-11 15:40] VITALS: BP 133/79; PULSE 82; RESP 16; TEMP 36.7
[2020-08-11 20:41] VITALS: BP 121/81; PULSE 78; RESP 16; TEMP 37.2
[2020-08-12 02:00] VITALS: BP 141/72; PULSE 76; RESP 16; TEMP 37
--- NOTE | 2020-08-12 07:55 | PCM.PN.OB ---
Subjective: No issues overnight. Voiding without difficulty. Denies heavy lochia. Headache overnight resolved with tylenol. No vision changes. Reports limited abdominal support and inquires about belly binder. + ankle swelling. Objective: AVSS - Physical Exam Vitals/I&O's: Vital Signs Temp Pulse Resp BP Pulse Ox 98.6 F 76 16 141/72 H 97 08/12/20 02:00 08/12/20 02:00 08/12/20 02:00 08/12/20 02:00 08/11/20 12:28 Oxygen Delivery Method Room Air Weight: 104.8 kg Body Mass Index (BMI) 42.3 Intake and Output for Last 24 Hours 08/10/20 08/11/20 08/12/20 23:59 23:59 23:59 Intake Total 3350.83 / 3350.83 Output Total 750 / 750 600 / 600 Balance 2600.83 / 2600.83 -600 / -600 General: Alert, Oriented x3, Cooperative, No apparent distress HEENT: Atraumatic, Normocephalic Lungs: Clear to auscultation, Normal air movement Cardiovascular: Regular rate, Regular Rhythm, Normal S1, Normal S2 Abdomen: Soft, Non Tender, Non-Distended, - - Fundus firm and nontender Extremities: No Calf Tenderness, - - +2 b/l LE edema Neurological: Neuro grossly intact Psych/Mental Status: Normal Affect, Appropriate, Alert and oriented to time, place, person, mood and affect Current Medications Acetaminophen (Acetaminophen 500 Mg Tablet) 1,000 mg PO Q8H PRN PRN PRN Reason: Pain Score 1-3 Last Admin: 08/11/20 02:47 Dose: 1,000 mg Documented by: Bisacodyl (Bisacodyl 10 Mg Suppository) 10 mg RECTAL UD PRN PRN Reason: If no BM Dibucaine (Dibucaine 30 Gm Tube) 1 applic TOPICAL TID PRN PRN; Protocol PRN Reason: Discomfort Hydrocortisone (Hydrocortisone 2.5% Crm) 1 applic TOPICAL TID PRN PRN; Protocol PRN Reason: Discomfort Ibuprofen (Ibuprofen 600 Mg Tablet) 600 mg PO Q6H PRN PRN PRN Reason: Pain Score 1-3 Last Admin: 08/11/20 20:39 Dose: 600 mg Documented by: Ondansetron HCl (Ondansetron 4 Mg/2 Ml Vial) 4 mg IV Q4H PRN PRN PRN Reason: Nausea Oxycodone HCl (Oxycodone 5 Mg Tablet) 5 mg PO Q4H PRN PRN PRN Reason: Pain Score 4-10 Senna/Docusate Sodium (Senna/Docusate Sodium 1 Tablet) 1 - 2 tablet PO DAILY PRN PRN PRN Reason: Constipation Simethicone (Simethicone 80 Mg Tablet) 80 mg PO PCHS PRN PRN Reason: Indigestion/Stomach pain Sodium Chloride (0.9% Saline Lock 10 Ml Syringe) 5 - 15 ml IV UD PRN PRN Reason: SALINE FLUSH Medical Necessity - Tobacco Use Smoking Status: Never smoker Assessment/Plan All Active Problems (Last Reviewed 06/01/20 @ 08:40 by Hodan Matthews) Dichorionic diamniotic twin gestation (Acute) (spontaneous vaginal delivery) (Acute) 29yo PPD#2 s/p of di-di twins with gestational HTN. - -Routine care -Plan for BP check in 1 week - ok for telehealth as pt has scale and home BP monitor. Si/sx preeclampsia reviewed -May use belly binder -A pos, Rubella immune
[2020-08-12 08:00] VITALS: BP 138/78; PULSE 71; RESP 16; TEMP 36.6
--- NOTE | 2020-08-12 08:03 | DS.PCM_ITS ---
Discharge Date and Diagnosis Date of Admission: 08/10/20 Date of Discharge: 08/12/20 Hospital Course and Treatment Consultations 08/10/20 07:16 Consult: Anesthesia Routine Comment: Reason For Exam: Labor Operations: None Procedures: None Summary of Care Provided: The patient is a 29 year old F [id number] admitted at 37 weeks gestation with dichorionic diamnionic twins for induction of labor with gestational hypertension. She had an uncomplicated vaginal delivery of twins in vertex- vertex presentation. BPs remained normal to mildly elevated during her hospital course and did not require medical management. Her post- course was otherwise uncomplicated and she as discharged to home on day #2. - Physical Exam Vitals/I&O's: Vital Signs Temp Pulse Resp BP Pulse Ox 98.6 F 76 16 141/72 H 97 08/12/20 02:00 08/12/20 02:00 08/12/20 02:00 08/12/20 02:00 08/11/20 12:28 Oxygen Delivery Method Room Air Weight: 104.8 kg Body Mass Index (BMI) 42.3 Intake and Output for Last 24 Hours 08/10/20 08/11/20 08/12/20 23:59 23:59 23:59 Intake Total 3350.83 / 3350.83 Output Total 750 / 750 600 / 600 Balance 2600.83 / 2600.83 -600 / -600 Current Medications Acetaminophen (Acetaminophen 500 Mg Tablet) 1,000 mg PO Q8H PRN PRN PRN Reason: Pain Score 1-3 Last Admin: 08/11/20 02:47 Dose: 1,000 mg Documented by: Bisacodyl (Bisacodyl 10 Mg Suppository) 10 mg RECTAL UD PRN PRN Reason: If no BM Dibucaine (Dibucaine 30 Gm Tube) 1 applic TOPICAL TID PRN PRN; Protocol PRN Reason: Discomfort Hydrocortisone (Hydrocortisone 2.5% Crm) 1 applic TOPICAL TID PRN PRN; Protocol PRN Reason: Discomfort Ibuprofen (Ibuprofen 600 Mg Tablet) 600 mg PO Q6H PRN PRN PRN Reason: Pain Score 1-3 Last Admin: 08/11/20 20:39 Dose: 600 mg Documented by: Ondansetron HCl (Ondansetron 4 Mg/2 Ml Vial) 4 mg IV Q4H PRN PRN PRN Reason: Nausea Oxycodone HCl (Oxycodone 5 Mg Tablet) 5 mg PO Q4H PRN PRN PRN Reason: Pain Score 4-10 Senna/Docusate Sodium (Senna/Docusate Sodium 1 Tablet) 1 - 2 tablet PO DAILY PRN PRN PRN Reason: Constipation Simethicone (Simethicone 80 Mg Tablet) 80 mg PO PCHS PRN PRN Reason: Indigestion/Stomach pain Sodium Chloride (0.9% Saline Lock 10 Ml Syringe) 5 - 15 ml IV UD PRN PRN Reason: SALINE FLUSH Discharge Diet: No Restrictions Discharge Activity: Return to Normal Activity, May Drive, May Shower May resume sexual activity in: 6 weeks Weight Bearing Status: Weight bearing as tolerated Call your doctor if your incision/area has: Foul Smelling Discharge Call your doctor if you observe: Fever of 101 or Higher, Shortness of breath, Chest pain Home Medications: Medications to take at Discharge One Daily Tablet 1 tab PO DAILY 01/06/18 docusate sodium 100 mg capsule 100 mg PO DAILY 06/01/20 Famotidine [Pepcid] 20 mg PO BID 07/06/20 Primary Care Physician: Yonas Ya DO [Primary Care Provider] - Please Follow Up With: Marin Coyle MD Medical Necessity - Tobacco Use Smoking Status: Never smoker Meaningful Use Info Meaningful Use Diagnoses (Choose all that apply): None applicable
[2020-08-12] MEDS: Ibuprofen 600 MG Tablet PO (09:23)
== END 2020-08-12 11:55 | disposition home or self-care (01) | DRG 807 ==
PROVIDERS: Admitting Provider Student in an Organized Health Care Education/Training Program; PCP Family Medicine; Referring Provider Student in an Organized Health Care Education/Training Program; Visit Provider Student in an Organized Health Care Education/Training Program
DX: O13.4 Gestational [pregnancy-induced] hypertension without significant proteinuria, complicating childbirth (principal); Z37.2 Twins, both liveborn; O30.043 Twin pregnancy, dichorionic/diamniotic, third trimester; O70.1 Second degree perineal laceration during delivery; Z3A.37 37 weeks gestation of pregnancy
CPT/HCPCS: 59025; 59050; 76815; 85025; 86850; 86900; 86901; 99218; J7120; A4216; G0378; J2405

== ENCOUNTER 2021-02-16 09:00 | Outpatient (RCR) | payer BC, SELFPAY ==
[2020-08-10 07:35] VITALS: BMI 42.3
--- NOTE | 2020-11-30 11:24 | HP.PTEVAL_ITS ---
Patient's Visit Information LAURA FERNANDEZ is a 30 year old F referred to Physical Therapy by Dr. Yonas Ya DO with a diagnosis of Muscle Interruption- non traumatic. Date of Evaluation: 11/30/20 Physical Therapist: Hodan Ling DPT - Visit Plan Frequency: 2x /Week Duration: 4 Weeks Plan: Focus on Core Strength/stabilization- Diastasis Recti. HEP Given IE: HEP Given: TA contraction, bridge, TA heel slide, TA marching, mini crunch - Subjective Patient reports that she had twins in Feb- not really and exercise person- she has a lot of separation in her stomach muscles and hernia. She did a telehealth visit and wants to get her strength back in her stomach muscle. She reports some discomfort and weird sensation when she does a sit up in her belly button. No pain with ADL's. Since she had the twins she has slight incontinence when she sneezes but nothing on a regular basis. 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 Twins- vaginal (6.0 lbs) and 2/5 year- vaginal (9.0lbs). PMHx/Meds: none. Goals: get stronger- strength abdominal muscles. - Objective Posture: FH, RS- increased kyphosis- can correct but is unable to maintain. Gait: no deviation noted. HR/TR: able without UE A. SLS: 30 sec bilateral with mild hip drop. ROM WFL in all planes. Strength: Core: poor, Hip: 4/5 throughout Knee/Ankle: 5/5. Flex: HS: no restriction, Gastroc: no restriction. Palpation: not tender to touch- mild less than single finger separation. Special Test: LLD: negative, Pelvic Alignment: WFL, JOVANY: negative - Goals Goal 1:: Patient will be I with HEP and progression Goal Time Frame: 4-6 Weeks Goal 2:: Patient will maintain proper posture t/o tx session to demo increased core s/s Goal Time Frame: 4-6 Weeks - Rehabilitation Potential Physical Therapy Diagnosis: Patient presents with hypermobility- she has decreased core strength/stabilization and endurance. Rehabilitation Potential: Good - Anticipated Interventions Patient/Client Instruction: Educate patient on: Benefits of Fitness Program Therapeutic Exercise to Include: Strength training, Endurance training, Body mechanics, Postural training, Flexibilty training, Neuromotor development, Dynamic Lumbar Stabilization, Scapular Strength/Stabilization For the Purpose of:: To improve muscle performance and motor function Thank you for the opportunity to evaluate your patient. For Medicare and Medicare HMO plans, please review the plan of care and approve it. It will need to be FAXED BACK to us at [phone] for Medicare purposes. For Medicare only, by signing this I certify the plan of care. Please let me know if there are questions or concerns regarding this plan of care. Physician Signature: Date:
--- NOTE | 2020-12-31 10:51 | HP.PTREVAL ---
Dr. Yonas Ya, DO, It has been my pleasure to treat LAURA FERNANDEZ over the last 6 visits for Muscle Interruption- non traumatic. Please see the progress note below for an update on the physical therapy plan of care! Subjective: Patient reports that she feels like she is getting stronger. Does not really know if the muscle in the abdomen is any different. Things are easier at home like laundry baskets carrying them up the stairs. Would like to continue PT to gain strength. No pain Objective/Function: Posture: FH, RS- increased kyphosis- can correct but is unable to maintain. Gait: no deviation noted. HR/TR: able without UE A. SLS: 30 sec bilateral with mild hip drop. ROM WFL in all planes. Strength: Core: fair, Hip: 4+/5 throughout Knee/Ankle: 5/5. Flex: HS: no restriction, Gastroc: no restriction. Palpation: not tender to touch- mild less than single finger separation. Special Test: LLD: negative, Pelvic Alignment: WFL, JOVANY: negative Plan Plan: 12/31/2020: Continue 1x a week for 6 weeks- focus on core s/s- gentle exercise- focus on technique and endurance. Focus on Core Strength/stabilization- Diastasis Recti Goals Goal 1:: Patient will be I with HEP and progression Goal Time Frame: 4-6 Weeks Goal Progress: Progressing Goal 2:: Patient will maintain proper posture t/o tx session to demo increased core s/s Goal Time Frame: 4-6 Weeks Goal Progress: Progressing Anticipated Interventions Patient/Client Instruction: Educate patient on: Benefits of Fitness Program Therapeutic Exercise to Include: Strength training, Endurance training, Body mechanics, Postural training, Flexibilty training, Neuromotor development, Dynamic Lumbar Stabilization, Scapular Strength/Stabilization For the Purpose of:: To improve muscle performance and motor function Please do not hesitate to contact me at [phone] by phone or if you have questions or concerns regarding this new plan of care! Sincerely, Hodan Ling DPT
--- NOTE | 2021-02-16 10:04 | HP.PTDCSUM ---
It has been my pleasure to treat LAURA FERNANDEZ referred by Dr. Yonas Ya DO, with the diagnosis of Muscle Interruption- non traumatic for a total of 12 visit(s). Discharge Date: Please see the following information for a summary of their discharge status. Subjective: Patient reports that she is ready to be discharged- has learned a lot and plans to continue with I home exercise program. She has hernia repair next week. She reports that she feels a lot better. % Improvement: 85 Objective/Function: Posture: good throughout in a hard back chair. Gait: no deviation noted. HR/TR: able without UE A. SLS: 30 sec bilateral with no hip drop. ROM: WFL in all planes without pain. Strength: Core: fair, plus Hip: 4+/5 throughout Knee/Ankle: 5/5. Flex: HS: no restriction, Gastroc: no restriction. Palpation: not tender to touch- mild less than single finger separation. Special Test: LLD: negative, Pelvic Alignment: WFL, JOVANY: negative Goal 1:: Patient will be I with HEP and progression Goal Progress: Goal Met Goal 2:: Patient will maintain proper posture t/o tx session to demo increased core s/s Goal Progress: Goal Met Plan: 02/16/2021: Discharge to I home exercise program- had bands and printed exercises- no questions. If there are questions or concerns regarding this patient's physical therapy, please feel free to call me at [phone]. Thank you for the referral of this patient. Sincerely, Hodan Ling, DPT Balance/Gait/Functional tests - Balance/Special Test Scores Oswestry Low Back Score: 0 Lower Extremity Functional Score: 68
== END 2021-02-16 19:00 | disposition home or self-care (01) ==
LOC: PT 09:00
PROVIDERS: PCP Family Medicine; Referring Provider Family Medicine; Visit Provider Family Medicine
DX: M62.08 Separation of muscle (nontraumatic), other site (principal)
CPT/HCPCS: 97110; 97161; 97164

== ENCOUNTER 2021-02-25 06:03 | Day surgery (SDC) | payer BC, SELFPAY ==
[2021-01-13 09:40] VITALS: BMI 42.3
[2021-02-25] VITALS (7 sets, daily range): BP systolic 116–125; BP diastolic 70–83; PULSE 66–80; RESP 16; TEMP 36.1–36.9; O2SAT 96–99; BMI 33.2
[2021-02-25 06:31] LABS: Internal QC Validated? YES +Cl - CLEAR BKGD; Pregnancy, Urine Negative Negative
[2021-02-25] MEDS: Lactated Ringers 1,000 ML 100 ML IV (06:45)
--- NOTE | 2021-02-25 07:18 | PCM.HP.BLA ---
History and Physical Date of Admission: 02/25/21 Intake Vital Signs 01/13/21 09:39 01/13/21 09:40 Height 5 ft 2 in Weight: 179 lb BMI 32.7 42.3 BP 143/84 H Blood Pressure Location Rt brachial Position Sitting Respiration 20 H Intake Visit Reasons: Umbilical Hernia Chief Complaint: umbilical hernia [employer] Required: No Is patient in pain?: No Allergies No Known Allergies Allergy (Verified 01/13/21 09:40) Medications One Daily Tablet 1 tab PO DAILY 01/06/18 [History Confirmed 01/13/21] docusate sodium 100 mg capsule 100 mg PO DAILY 06/01/20 [History Confirmed 01/13/21] famotidine 20 mg PO BID 07/06/20 [History Confirmed 01/13/21] [facility] Medical History (Updated 01/14/21 @ 11:[address] Avery Yanez MD) Anal fissure Chronic constipation External hemorrhoids (spontaneous vaginal delivery) Surgical History History of hemorrhoidectomy (~05/2018) History of tonsillectomy Family History Mother Arthritis Hypertension Father Arthritis Hypertension Aunt Breast cancer Grandfather Heart disease Kidney disease Brother Hypertension Sister Hypertension Social History Smoking Status: Never smoker alcohol intake: never substance use type: does not use HPI HPI HPI: LAURA FERNANDEZ, is a 30 F who presents to the office today for umbilical hernia. The patient recently was with twins. Patient notes that she has bulging the umbilical area and occasional sharp pain. Patient is also still having blood with bowel movements as well as pain with bowel movements. She says she is only having 1 bowel movement a week. She is taking multiple stool softeners with no help. ROS General General: No weight change, appetite, fatigue, colon cancer, breast cancer or weakness HEENT HEENT: No difficulty swallowing, eye injury, eye surgery, swollen glands or hoarseness Endo Endocrine: No thyroid disease, diabetes mellitus, thyroid cancer, Hair loss, heat intolerance or cold intolerance Skin Skin: Yes changing moles; No rash Breast Breast: No left breast lump, right breast lump, nipple discharge, breast pain, abnormal mammogram, abnormal US or breast enlargement Musc Musculoskeletal: No back problems, arthritis, rheumatoid arthritis, gout or joint pain Cardio Cardiovascular: No murmur, pacemaker, heart disease, atrial fibrillation, high blood pressure, heart attack, heart stent, palpitations, shortness of breat with exertion or chest pain Psych Psychiatric: No depression, anxiety or hearing voices Resp Respiratory: No shortness of breath, No sleep apnea, No cough, No COPD, No asthma, No emphysema and No wheezing Gastro Gastrointestinal: No abdominal pain, No nausea or vomiting, No diarrhea, Yes constipation, Yes blood in stool, No acid reflux, Yes hemorrhoids, No ulcers, No gallbladder problem and No black,tarry stools Nestor Hematologic: No blood thinners, No blood disorders, No bleeding, No anemia and No blood clots Neuro Neurologic: No system reviewed and no additional complaints, except as documented, No as per HPI, No abnormal gait, No abnormal hearing, No abnormal movements, No abnormal speech, No behavioral changes, No burning sensations, No confusion, No convulsions, No disequilibrium, No dizziness, No localized weakness, No frequent falls, No headache(s), No lack of coordination, No loss of vision, No memory loss, No numbness, No other visual disturbances, No radicular pain, No restless legs, No sensory deficit, No syncope, No tingling, No tremor(s), No weakness and No other Exam Const General: cooperative Orientation: alert and oriented x3 HENMT Head: normal to inspection Neck Neck: normal visual inspection and full ROM Chest Chest palpation & inspection: normal inspection of the chest Resp Effort & Inspection: normal respiratory effort Auscultation: clear to auscultation bilaterally Cardio Rate: regular rate Rhythm: regular rhythm GI Inspection: non-distended Palpation: soft, hernia umbilical and nontender Skin General: no rashes or lesions noted Neuro General: patient alert and patient oriented x3 Extrem General: full ROM Psych Appearance: grossly normal Mental Status: mental status grossly normal Assessment and Plan Assessment and Plan (1) Chronic constipation: Status: Chronic (2) Umbilical hernia: Status: Acute Qualifiers: Obstruction and gangrene presence: without obstruction or gangrene Qualified Code(s): K42.9 - Umbilical hernia without obstruction or gangrene Orders: Referrals: Gastroenterology K59.09 Plan - Dr. Avery Yanez MD: The patient has a small umbilical hernia with fat contained. She would like this repaired and I discussed umbilical hernia repair. I believe it is small enough that it does not need mesh and she is still considering having more children. I did discuss with her the risk of recurrence especially with a subsequent . The patient would like this small hernia repaired and I did offer her a umbilical hernia repair under MAC local in the operating room. I discussed the risks of bleeding and infection and injury to underlying organs. Avery Yanez MD Pager: [facility] [address] [place] [address], [address] [place] [address] Office: I have re-examined the patient. There are no clinical changes since date of exam.
[2021-02-25] MEDS: Cefazolin 2 GM in 0.9% Normal Saline 100 ML IV (07:26)
[2021-02-25] MEDS: Lidocaine 1% (30 ml sdv) 30 ML Vial (07:45)
[2021-02-25] MEDS: Bupivacaine Mpf 0.5% 30 ML VIAL (07:45)
--- NOTE | 2021-02-25 08:58 | PCM.OPRPT ---
Problems Associated Problem List Diagnoses (1) Umbilical hernia: Report of Operation Date of Procedure: 02/25/21 Pre-Operative Diagnosis: Umbilical hernia Post-Operative Diagnosis: Umbilical hernia Surgery/Procedure Performed:: Umbilical hernia repair Description of Procedure: Patient was brought back to the operating room and anesthesia was induced. Abdomen was prepped and draped in usual sterile fashion. A small incision was marked inferior to the umbilicus and injected with local anesthetic. Incision was then made and deepened to the hernia sac. The hernia was surrounded circumferentially and reduced. The fascia was closed with 3 interrupted 0 Nurolon sutures completely closing the hernia. Hernia was less than 1 cm in size. The area was irrigated and suctioned dry and the skin of the umbilicus was sutured to the fascia using 3-0 Vicryl suture. The incision was then closed with a running 4-0 Vicryl suture and Steri-Strips and a bandage was applied the patient was taken to PACU. No mesh was utilized. Admit VTE Documentation VTE Mechan Device Prophylaxis: SCD's
--- NOTE | 2021-02-25 09:00 | EX.PCM.DISCH ---
Discharge Instructions Procedure Port-A-Cath Diet Discharge Diet: Light diet - advance as tolerated (Pain medication may cause nausea. You should typically eat light foods as you take your pain medication.) Activity May shower in (days): 1 Lifting Restrictions: 20 pounds for 2 weeks. Additional Activity Instructions:: Climbing stairs is fine, walking is encouraged. Sitting in bed may be uncomfortable. Sitting up using your lateral muscles (sitting up sideways) is usually more comfortable. Do not drive, work heavy equipment of sign legal documents for 24 hours. Pain medications may cause nausea, you should typically eat light foods as you take your pain medications. Pain medications may also cause constipation. If you have difficulty with this, discuss with your doctor. Dressing / Incision Call your doctor if your incision/area has: Continuous Slow Oozing, Sudden Increased Bleeding, Increased Pain/ Swelling, Increased Redness, Foul Smelling Discharge and Swelling at the incision site Call your doctor if you observe: Fever of 101 or Higher Suture Line Care: Avoid Pulling/Pushing and Avoid Pinching/Bending Remove Dressing in: 3 days Cleanse incision/area with: Soap & Water Follow Up Care Please Follow Up With: Avery Yanez MD When: Please call to schedule 2 week follow up appointment. [phone] Test Results: Test results from this visit will be discussed in further detail at your follow-up appointment, if applicable. Discharge Plan Admission Attending Provider: Avery Yanez Primary Care Provider: Yonas Ya Instructions Additional Instructions / Restrictions: ibuprofen and tylenol for pain Discharge Orders/Prescriptions Prescriptions: No Action docusate sodium [Dulcolax Stool Softener (dss)] 100 mg capsule 100 mg PO DAILY RF: 0 One Daily Tablet 1 tab PO DAILY RF: 0 vitamin V40-ppdcg acid 1-0.8 mg Tablet 1 tab PO DAILY RF: 0 Referrals / Follow Up: Yonas Ya DO [Primary Care Provider] - Disposition Disposition (needs filled in before D/C Order can be placed): Home, Self Care
== END 2021-02-25 09:28 | disposition home or self-care (01) ==
LOC: SDC 06:04 → AC 06:05
PROVIDERS: Anesthesiology; PCP Family Medicine; Referring Provider Surgery; Visit Provider Surgery
PROC: (CPT 49585; principal; 2021-02-25 07:15)
DX: K42.9 Umbilical hernia without obstruction or gangrene (principal); K64.4 Residual hemorrhoidal skin tags; K59.09 Other constipation
CPT/HCPCS: 00830; 49585; 81025; J7120; J2405

== ENCOUNTER → 2021-03-18 12:58 | Outpatient (CLI) | payer BC, SELFPAY ==
--- NOTE | 2021-03-18 13:01 | RAD_ITS ---
STUDY: X-RAY - LUMBAR SPINE REASON FOR EXAM: Female, 30 years old. PAIN TECHNIQUE: 4 view(s) of the lumbar spine were obtained. COMPARISON: 08/09/2014 FINDINGS: Normal lumbar lordosis. There is no substantial scoliosis. There is a normal alignment of the vertebrae. Normal vertebral bodies and endplates. Normal disc space heights. The soft tissue structures are unremarkable. RAD/L/S Spine Min 4 Views IMPRESSION: Normal x-ray examination of the lumbar spine. Electronically Signed: Kehinde Maddox MD at 13:23 EDT Tel , Service support ,
--- NOTE | 2021-03-18 13:01 | RAD_ITS ---
STUDY: X-RAY - PELVIS AND RIGHT HIP REASON FOR EXAM: Female, 30 years old. PAIN TECHNIQUE: 3 views of the pelvis and hip. COMPARISON: 08/09/2014 FINDINGS: There is a non-specific bowel gas pattern. Normal visualized soft tissue structures. Normal bilateral iliac wings, sacroiliac joints and visualized sacrum. Normal bilateral superior and inferior pubic rami. Normal pubic symphysis. Normal bilateral ischial tuberosities. Normal visualized femoral head. Normal acetabulum. Normal hip joint. RAD/HIP, UNI W/ Pelvis 2-3 Views IMPRESSION: Normal x-ray examination of the pelvis and hip. Electronically Signed: Kehinde Maddox MD at 15:36 EDT Tel , Service support ,
== END ==
PROVIDERS: PCP Family Medicine; Referring Provider Family Medicine; Visit Provider Family Medicine
DX: M25.551 Pain in right hip (principal); M54.9 Dorsalgia, unspecified
CPT/HCPCS: 72110; 73502

== ENCOUNTER → 2021-04-06 | Outpatient (CLI) | payer BC, SELFPAY | END | disposition home or self-care (01) | LOC: LABSPEC 16:10 | PROVIDERS: PCP Family Medicine; Referring Provider Family Medicine; Visit Provider Family Medicine | DX: Z20.822 Contact with and (suspected) exposure to COVID-19 (principal) | CPT/HCPCS: 87635; U0005; U0003 ==

== ENCOUNTER → 2021-04-09 15:11 | Outpatient (CLI) | payer BC, SELFPAY | PROVIDERS: PCP Family Medicine; Visit Provider Family Medicine | DX: Z20.828 Contact with and (suspected) exposure to other viral communicable diseases (principal) | CPT/HCPCS: 87633 ==

== ENCOUNTER 2021-04-29 07:30 | Day surgery (SDC) | payer BC, SELFPAY ==
[2021-04-29 07:52] LABS: Internal QC Validated? YES +Cl - CLEAR BKGD; Pregnancy, Urine Negative Negative
[2021-04-29 07:54] VITALS: BP 123/87; PULSE 83; RESP 16; TEMP 36.6; O2SAT 99; BMI 33.6
[2021-04-29] MEDS: Lactated Ringers 1,000 ML 100 ML IV (08:06)
--- NOTE | 2021-04-29 08:30 | COLBX_PTH ---
PATIENT: LAURA FERNANDEZ LOC: EN U#:[id number] AGE/SX: 30/F ROOM: RE04/29/[address]: Dr. Elijah Shafer DO : 1990 BED: DIS: 04/29/2021 SPEC #: [id number] RECD: 04/29/21 11:49 STATUS: NANCY REDivya #: [id number] BOBBY: 04/29/21 08:[address]: Elijah Shafer DEPT: SURGICAL PATHOLOGY RECD BY: Stefany Harman ENTERED: 04/29/21 12:50 SP TYPE: COLON BX OTHR DR: Dr. Yonas Ya DO Tissues: A - Descending colon B - Rectum, NOS Procedures: Trichrome (control) Special Stain Group II Surgery Specimen Level IV HEADER OPERATION: Colonoscopy (MAC) PRE-OP DIAGNOSIS: Chronic constipation, lower GI bleeding TISSUE SUBMITTED: A ? Descending colon biopsy, B ? Rectum biopsy MICROSCOPIC DIAGNOSIS A. Descending colon, biopsy: A fragment of colonic mucosa with changes consistent with lymphocytic (microscopic) colitis. See comment. B. Rectum biopsy: Fragments of colonic mucosa, no pathologic diagnosis. NAVA:antwon 04/30/2021 COMMENT A. Trichrome stain with matched control was used in the evaluation of the specimen and does not show significant thickening of subepithelial collagen band. Case has been reviewed in consultation with Dr. Snyder who concurs with the above diagnosis. IDC:AM MICROSCOPIC DESCRIPTION Slides are reviewed. GROSS DESCRIPTION A - Received in fixative is one container labeled with the patient's name and designated descending colon biopsy. The specimen consists of one irregular fragment of light huang soft tissue that measures 0.5 x 0.3 x 0.1 cm. The specimen is totally submitted in one cassette. B - Received in fixative is one container labeled with the patient's name and designated rectum biopsy. The specimen consists of two irregular fragments of light huang soft tissue that in aggregate measure 0.6 x 0.3 x 0.1 cm. The specimen is totally submitted in one cassette. / NAVA:antwon 04/29/21 TC:3 CPT: 94987 x2, [id number]
--- NOTE | 2021-04-29 09:12 | PCM.HP.BLA ---
History and Physical Date of Admission: 04/29/21 Intake Visit Reasons: CHRONIC CONSTIPATION Chief Complaint: chronic constipation; umbilical hernia repaired Is patient in pain?: No Allergies No Known Allergies Allergy (Verified 03/29/21 10:04) Medications One Daily Tablet 1 tab PO DAILY 01/06/18 [History Confirmed 03/29/21] docusate sodium 100 mg capsule 100 mg PO DAILY 06/01/20 [History Confirmed 03/29/21] vitamin K77-jxoin acid 1 tab PO DAILY 02/23/21 [History Confirmed 03/29/21] polyethylene glycol 3350 17 gram/dose oral powder 17 g PO DAILY 03/29/21 [History Confirmed 03/29/21] Post menopausal: No Patient : No PFSH Medical History Anal fissure Chronic constipation Constipation External hemorrhoids History of steroid therapy (spontaneous vaginal delivery) Surgical History History of hemorrhoidectomy (~05/2018) History of tonsillectomy Hx of dilation and curettage Family History Mother Arthritis Hypertension Father Arthritis Hypertension Aunt Breast cancer Grandfather Heart disease Kidney disease Brother Hypertension Sister Hypertension Social History Smoking Status: Never smoker alcohol intake: never substance use type: does not use HPI HPI Chief Complaint: chronic constipation; umbilical hernia repaired Details: LAURA FERNANDEZ, is a 30 F who presents to the office today for lower GI bleeding with history of hemorrhoids and chronic constipation. She originally had hemorrhoids with her first child and that resulting in the need for hemorrhoidectomy. Then she developed an anal fissure which had to be treated with surgery. After having twins 8 months ago she developed problems with hemorrhoids again. She does not want to go through another hemorrhoidectomy if she does not have to. She is on MiraLAX and Colace in order to go to the bathroom on a daily basis. She has been dealing with chronic constipation for most of adult life; taking stool softener and miralax QD and having BM QD or QOD. She is still having to strain occasionally and notes bright blood with BM. She saw a insurance administrator in [facility] in 2019 who recommended a colononoscpy and she did not get done. She was also gave a sample of Linzess 12.5mg, did not like the medication because it gave her diarrhea and cramping. ROS Const Constitutional: No anorexia, fatigue, fever(s), weight change or sleep problems Eyes Eyes: No change in vision ENT ENT: No abnormal hearing, difficulty swallowing, mouth lesions, tongue swelling or throat swelling Resp Respiratory: No cough or shortness of breath Cardio Cardiology: No chest pain at rest, chest pain with exertion, shortness of breath or dyspnea on exertion Gastro GI: Positive for constipation, heartburn and Blood in stool; No difficulty swallowing Genitourinary-Female: No difficulty urinating or burning urination Musc Musculoskeletal: Positive for sciatica, restless legs and leg pain at night Skin Skin: No hair loss in leg, yellowing of the eye, itchy eyes, rash, skin ulcer or skin swelling Neuro Neurology: Positive for restless legs; No abnormal hearing, confusion or memory loss Psych Psychiatric: No anxiety, No confusion and No memory loss Endo Endocrine: No fatigue or weight change Aller/Imm Allergy/Immunologic: No itchy eyes, throat swelling or tongue swelling Nestor/Lymp Hematologic/Lymphatic: No easy bleeding, easy bruising or enlarged lymph nodes Exam Const General: cooperative and comfortable Nutritional Appearance: average body habitus and well nourished [facility] Head: normal to inspection Ears: hearing grossly normal bilaterally Nose: external nose normal Face and sinus: normal facial exam Mouth: oral mucosae normal Throat: posterior oropharynx normal Eyes General: appearance normal, both eyes and all related structures Neck Neck: normal visual inspection Chest Chest palpation & inspection: normal inspection of the chest and normal palpation of entire chest wall Resp Effort & Inspection: normal respiratory effort Auscultation: Bilateral: Clear to Auscultation Cardio Palpation: normal PMI Rate: regular rate Rhythm: regular rhythm GI Inspection: normal to inspection Auscultation: normal bowel sounds Percussion: normal to percussion Palpation: no hepatosplenomegaly Skin General: no rashes or lesions noted Neuro General: patient alert Extrem General: normal to inspection Psych Affect: normal affect Quality Reporting Tobacco Screening ([facility] 138) Smoking Status: Never smoker Assessment and Plan Assessment and Plan (1) Chronic constipation: Status: Chronic Plan - Dr. Nava Friend, DO: She likely either has chronic idiopathic constipation secondary to slow transit constipation or pelvic floor dysfunction. We will get a colonoscopy so we can evaluate her rectum anus and colon anatomy to see if she has a redundant colon, any strictures, narrowings, diverticular disease or any other structural abnormalities that we contributing to her constipation. (2) Lower GI bleeding: Status: Acute Patient Instructions: Her lower GI bleeding is likely secondary to either hemorrhoids or recurrent anal fissure. She will undergo banding of during the procedure if it is secondary to internal hemorrhoids.
[2021-04-29 09:50] VITALS: BP 115/82; BP 123/87; PULSE 80; RESP 16; TEMP 36.8; O2SAT 100
--- NOTE | 2021-04-29 09:51 | OP.CCLET_ITS ---
03/10/2022 Yonas Ya [address] [facility] [place] [address] Re : Colonoscopy procedure for Mandi Valente Dear Dr. Ya This procedure was performed on April. My impressions and recommendations are as follows: Impressions : - Hemorrhoids found on perianal exam. - Tortuous colon. - Redundant colon. - Erythematous mucosa in the rectum. Biopsied. - Erythematous mucosa in the descending colon. Biopsied. - The examination was otherwise normal on direct and retroflexion views. Recommendations : - Discharge patient to home. - Resume previous diet. - Continue present medications. - Await pathology results. - Repeat colonoscopy in 5 years for surveillance. My findings are described in the full procedure note, which is enclosed. If I can be of further assistance, please feel free to contact me at . Sincerely, Elijah Friend, 04/29/2021 9:51:12 AM This report has been signed electronically.
--- NOTE | 2021-04-29 09:51 | OP.COLON_ITS ---
Patient Name: Mandi Valente Procedure Date: 04/29/2021 9:18 AM Date of : 1990 Age: 30 Procedure: Colonoscopy Indications: Abdominal pain in the left lower quadrant Providers: Elijah Shafer DO Medicines: Monitored Anesthesia Care Patient Profile: This is a 30 year old female. Refer to note in patient chart for documentation of history and physical. Patient has symptoms of chronic right upper quadrant abdominal pain. Last Colonoscopy: none. The patient's first colonoscopy is today. Complications: No immediate complications. Procedure: Pre-Anesthesia Assessment: - Prior to the procedure, a History and Physical was performed, and patient medications and allergies were reviewed. The risks and benefits of the procedure and the sedation options and risks were discussed with the patient. All questions were answered and informed consent was obtained. Patient identification and proposed procedure were verified by the physician in the pre-procedure area. Mental Status Examination: alert and oriented. Airway Examination: normal oropharyngeal airway and neck mobility. Respiratory Examination: clear to auscultation. CV Examination: normal. Prophylactic Antibiotics: The patient does not require prophylactic antibiotics. Prior Anticoagulants: The patient has taken no previous anticoagulant or antiplatelet agents. ASA Grade Assessment: II - A patient with mild systemic disease. After reviewing the risks and benefits, the patient was deemed in satisfactory condition to undergo the procedure. The anesthesia plan was to use moderate sedation / analgesia (conscious sedation). Immediately prior to administration of medications, the patient was re-assessed for adequacy to receive sedatives. The heart rate, respiratory rate, oxygen saturations, blood pressure, adequacy of pulmonary ventilation, and response to care were monitored throughout the procedure. The physical status of the patient was re-assessed after the procedure. After I obtained informed consent, the scope was passed under direct vision. Throughout the procedure, the patient's blood pressure, pulse, and oxygen saturations were monitored continuously. The colonoscope was introduced through the anus and advanced to the terminal ileum. The colonoscopy was performed without difficulty. The patient tolerated the procedure well. The quality of the bowel preparation was adequate. Moderate Sedation: Moderate (conscious) sedation was administered by the endoscopy nurse and supervised by the endoscopist. The patient's oxygen saturation, heart rate, blood pressure and response to care were monitored. Total physician intraservice time was 15 minutes. Scope In: 9:30:36 AM Scope Withdrawal Time 0 hours 9 minutes 19 seconds Scope Out: 9:43:48 AM Total Procedure Duration Time 0 hours 13 minutes 12 seconds Findings: Hemorrhoids were found on perianal exam. The left colon was moderately tortuous. Estimated blood loss: none. The transverse colon was mildly redundant. Estimated blood loss: none. A patchy area of mildly erythematous mucosa was found in the rectum. This was biopsied with a cold forceps for histology. Verification of patient identification for the specimen was done. Estimated blood loss was minimal. A localized area of mildly erythematous mucosa was found in the descending colon. This was biopsied with a cold forceps for histology. Verification of patient identification for the specimen was done. Estimated blood loss was minimal. The exam was otherwise without abnormality on direct and retroflexion views. Impression: - Hemorrhoids found on perianal exam. - Tortuous colon. - Redundant colon. - Erythematous mucosa in the rectum. Biopsied. - Erythematous mucosa in the descending colon. Biopsied. - The examination was otherwise normal on direct and retroflexion views. Recommendation: - Discharge patient to home. - Resume previous diet. - Continue present medications. - Await pathology results. - Repeat colonoscopy in 5 years for surveillance. Procedure Code(s): --- Professional --- 53734, Colonoscopy, flexible; with biopsy, single or multiple G0500, Moderate sedation services provided by the same physician or other qualified health career center advisor performing a gastrointestinal endoscopic service that sedation supports, requiring the presence of an independent trained observer to assist in the monitoring of the patient's level of consciousness and physiological status; initial 15 minutes of intra-service time; patient age 5 years or older (additional time may be reported with 78028, as appropriate) CPT copyright 2017 [employer]. All rights reserved. The codes documented in this report are preliminary and upon exercise physiologist review may be revised to meet current compliance requirements. Elijah Shafer DO 04/29/2021 9:51:12 AM This report has been signed electronically. Number of Addenda: 1 Note Initiated On: 04/29/2021 9:18 AM Addendum Number: 1 Addendum Date: 03/10/2022 4:40:31 PM MAC was used instead of moderate sedation for this patient. Elijah Shafer DO 03/10/2022 4:40:36 PM This report has been signed electronically.
[2021-04-29 09:55] VITALS: BP 116/77; BP 123/87; PULSE 72; RESP 16; O2SAT 100
[2021-04-29 10:00] VITALS: BP 123/87; BP 130/73; PULSE 70; RESP 16; O2SAT 100
[2021-04-29 10:05] VITALS: BP 107/95; BP 123/87; PULSE 81; RESP 16; TEMP 36.5; O2SAT 100
[2021-04-29 10:25] VITALS: BP 123/87
== END 2021-04-29 10:53 | disposition home or self-care (01) ==
LOC: EN 07:32 → AC 07:32
PROVIDERS: Anesthesiology; PCP Family Medicine; Referring Provider Family Medicine; Visit Provider Internal Medicine Gastroenterology
PROC: 0DJD8ZZ Inspection of Lower Intestinal Tract, Via Natural or Artificial Opening Endoscopic (ICD-10-PCS; CPT 45378; principal; 2021-04-29 08:25)
DX: K52.832 Lymphocytic colitis (principal); Q43.8 Other specified congenital malformations of intestine; K59.09 Other constipation; K64.9 Unspecified hemorrhoids; Z79.899 Other long term (current) drug therapy
CPT/HCPCS: 45380; 81025; 88305; 88313; J7120; J2405

== ENCOUNTER → 2021-05-28 | Outpatient (CLI) | payer BC, SELFPAY | END | disposition home or self-care (01) | PROVIDERS: PCP Family Medicine; Visit Provider Physician Assistant Surgical | DX: J06.9 Acute upper respiratory infection, unspecified (principal) | CPT/HCPCS: 87633 ==

== ENCOUNTER → 2021-07-08 06:28 | Outpatient (CLI) | payer BC, SELFPAY ==
--- NOTE | 2021-07-08 06:37 | MRI_ITS ---
STUDY: MRI LUMBAR SPINE WITHOUT CONTRAST REASON FOR EXAM: Female, 30 years old. RT LEG PAIN, RT SCIATICA TECHNIQUE: Standardized fat and water weighted pulse sequences were obtained in the sagittal and axial planes. COMPARISON: 03/18/2021 FINDINGS: Straightening of the normal alignment of the columns of the lumbar spine is visualized. No evidence of spondylolisthesis is seen. The lumbar vertebral bodies demonstrate no evidence of compression deformity, multilevel degenerative endplate changes visualized. No evidence of T2 prolongation is visualized visualized on the STIR sequence to suggest acute fracture, edema or infiltrative process. The cord terminates at the level of the L1-L2 intervertebral disc space., the terminal nerve roots demonstrate no evidence of thickening or clumping to suggest arachnoiditis. Disc desiccation seen involving the L3-L4 and L4-L5 intervertebral discs. Normal visualized sacral ala. Normal visualized paraspinous soft tissue structures. Limited evaluation of the abdominal soft tissues is unremarkable. L1-2: Normal endplates. Normal disc height, hydration and morphology. Normal bilateral facet joints. Normal central canal and bilateral lateral recesses. Normal bilateral intervertebral neural foramina. L2-3: Normal endplates. Normal disc height, hydration and morphology. Normal bilateral facet joints. Normal central canal and bilateral lateral recesses. Normal bilateral intervertebral neural foramina. L3-4: Degenerative disc changes with a focal posterior disc bulge visualized, subtle T2 prolongation visualized in the posterior annular fibers at the midline best visualized on sagittal series 2 image 8, mild hypertrophic changes seen in the facet joints. No significant narrowing of the spinal canal or bilateral neural foramina is visualized at this level. L4-5: Degenerative disc changes with a posterior disc bulge visualized, hypertrophic changes in the facet joints bilaterally, no significant narrowing of the spinal canal is visualized, mild narrowing of bilateral neural foramina seen at this level. L5-S1: No significant degenerative disc disease visualized, hypertrophic changes visualized in the facet joints bilaterally at this level, no significant narrowing of the spinal canal is visualized and mild narrowing of the left neuroforamina is seen. MRI/Spine Lumbar (Routine) IMPRESSION: Degenerative intervertebral disc disease with posterior bulge visualized at L4-L5 and L3-L4 discs. Electronically Signed: Juan Mcdonald MD at 15:37 EST Tel , Service support ,
== END ==
PROVIDERS: PCP Family Medicine; Referring Provider Family Medicine; Visit Provider Family Medicine
DX: M54.17 Radiculopathy, lumbosacral region (principal)
CPT/HCPCS: 72148

== ENCOUNTER 2021-10-04 09:39 | Outpatient (CLI) | payer BC, SELFPAY ==
[2021-10-04 11:13] LABS: HIV - WCH Non-Reactive (Nonreactive); Hepatitis B Surface Antigen Non-Reactive (Nonreactive); Hepatitis C Antibody Non-Reactive (Nonreactive); Syphilis Antibodies Non-reactive
== END 2021-10-04 23:59 | disposition home or self-care (01) ==
PROVIDERS: PCP Family Medicine; Referring Provider Obstetrics & Gynecology; Visit Provider Obstetrics & Gynecology
DX: Z11.3 Encounter for screening for infections with a predominantly sexual mode of transmission (principal)
CPT/HCPCS: 36415; 86703; 86780; 86803; 87340

== ENCOUNTER → 2021-12-31 | Outpatient (CLI) | payer BC, SELFPAY ==
--- NOTE | 2021-12-31 15:34 | MRI_ITS ---
STUDY: MRI RIGHT HIP REASON FOR EXAM: Female, 31 years old. Right hip pain. TECHNIQUE: Standardized fat and water weighted pulse sequences were obtained in all 3 orthogonal planes. COMPARISON: X-rays of the pelvis and hips dated 03/18/2021. FINDINGS: Normal hip joint without articular joint space narrowing. Normal acetabulum. Normal labrum. Normal femoral head. Normal femoral neck and intratrochanteric region. Normal gluteus minimus, medius and iliopsoas tendons and distal insertions. Right greater trochanteric bursitis (coronal series 4 images 13-18, sagittal series 8 images 4-9). Normal superior and inferior pubic rami. Normal pubic symphysis. Normal ischial tuberosity. Normal origin of the hamstring tendons. Normal visualized iliac wing, sacroiliac joint, and sacral ala. Normal visualized soft tissue structures of the pelvis. MRI/Lower Ext Joint Only (Routine) IMPRESSION: Right greater trochanteric bursitis. No other abnormality present. Electronically Signed: Mateo Aldana MD at 16:14 EDT ,
== END | disposition home or self-care (01) ==
LOC: MRI 15:26
PROVIDERS: PCP Family Medicine; Visit Provider Orthopaedic Surgery
DX: M25.551 Pain in right hip (principal)
CPT/HCPCS: 73721

== ENCOUNTER → 2022-07-18 | Outpatient (CLI) | payer BC, SELFPAY ==
--- NOTE | 2022-07-18 09:32 | US_ITS ---
STUDY: ULTRASOUND BREAST - RIGHT REASON FOR EXAM: Female, 31 years old. Bilateral retroareolar pain. TECHNIQUE: Axial and longitudinal images of the RIGHT breast were performed with a high resolution ultrasound transducer. # OF IMAGES: 25 COMPARISON: Comparison is made with prior mammogram done earlier today. FINDINGS: RIGHT Breast: The retroauricular region of the breast was examined with ultrasound. No sonographic abnormality is seen. IMPRESSION: No sonographic abnormality is seen. ASSESSMENT CATEGORY: BIRADS Category 1: Negative. A letter regarding these results will be sent to the patient by the facility within 30 days. Electronically Signed: Amrit Sullivan MD at 15:41 EST , STUDY: ULTRASOUND BREAST - LEFT REASON FOR EXAM: Female, 31 years old. Left retroareolar pain. TECHNIQUE: Axial and longitudinal images of the LEFT breast were performed with a high resolution ultrasound transducer. # OF IMAGES: 25 COMPARISON: Comparison is made with prior mammogram done earlier in the day. FINDINGS: LEFT Breast: The retroareolar region of the breast was examined by ultrasound. No sonographic abnormality is seen. US/Breast Limited Unilateral
--- NOTE | 2022-07-18 09:32 | BI_ITS ---
MAMMOGRAPHY - BILATERAL DIAGNOSTIC REASON FOR EXAM: Female, 31 years old. Bilateral retroareolar pain. PERTINENT HISTORY: Aunts with breast cancer. TECHNIQUE: Digital bilateral breast augustina (3D mammographic acquisition) in the CC and MLO projections. 2-D mediolateral oblique (MLO) and craniocaudad (CC) views of both breasts were obtained. CAD: Full Field Digital Mammography with Computer Added Detection was performed. COMPARISON: None. Baseline examination. FINDINGS: Breast Composition: The breasts are extremely dense, which lowers the sensitivity of mammography. There are no dominant masses or suspicious calcifications. No other significant abnormalities are identified. BI/DIAG MAMM W/CAD, BILAT IMPRESSION: Negative diagnostic mammogram. With the patient''s history of bilateral breast pain, correlation with ultrasound is recommended for further evaluation. ASSESSMENT CATEGORY: BIRADS Category 0: Incomplete. Need additional imaging evaluation. A letter regarding these results will be sent to the patient by the facility within 30 days. Approximately 10% of breast cancers are not detected by mammography. A normal mammogram should not delay biopsy of a clinically suspicious abnormality. Electronically Signed: Amrit Sullivan MD at 10:41 EST ,
== END | disposition home or self-care (01) ==
LOC: OPBI 09:30
PROVIDERS: PCP Family Medicine; Visit Provider Obstetrics & Gynecology
DX: N64.4 Mastodynia (principal)
CPT/HCPCS: 76642; 77062; 77066; G0279

== ENCOUNTER 2022-09-01 11:00 | Outpatient (RCR) | payer BC, OTHER, SELFPAY ==
--- NOTE | 2022-05-17 12:37 | HP.PTEVAL_ITS ---
Patient's Visit Information LAURA FERNANDEZ is a 31 year old F referred to Physical Therapy by Dr. Cathryn Morrell DO with a diagnosis of Right Hip Sx. Date of Evaluation: 05/17/22 Physical Therapist: Hodan Ling DPT - Visit Plan Frequency: 2x /Week Duration: 4 Weeks Plan: Focus on LE and core strength/stabilization- decreased hip translation during stance - Subjective Patient reports that she had major hip issues on the right- so she had an ITBand stretching and bursectomy on the right side by Dr. Morrell 02/22/22. 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 The surgery took away the shooting pain that radiated down her right leg. She feels that she traded one pain for another. Since surgery she has not been able to sleep on either side. Is unable to find a comfortable position. Pain is located in the lateral aspect of the hip- when she is sleeping it radiates down to the knee- no pain that radiates into the buttock or back- describes the pain as sharp and almost feels like its hot and burning. Worst: 6/10 Agg: sleeping on it, working a long shift standing. Best: 0/10 Eases: laying on her back-once she gets off of her side in sidelying the pain goes away instantly. No N/T in the right leg- no issues with the left leg. After work she takes Ibuprofen and goes to sleep. Standing for 8 hours 3 days a week- lifting no more than 2#- but repetitive. Stands on concrete and wearing steel toe shoes- did put an over the counter orthotic in her shoes. She went back to see MD who says everything checks out okay and to go to PT. They did say when she was in surgery her hip bone was really irritated so she shaved down the sharp pieces. No x-rays or MRI since surgery. She is very active- she has kids and is working- she has started back on the elliptical last week and that does not bother her. PMHx: none Meds: control - Objective Posture: FH, RS- can correct but does not maintain. Gait: increased pelvic translation in swing phase on the right LE. HR/TR: able. SLS: 15 sec with significant pelvic translation when standing on right LE and reports pain. ROM: WFL in all planes. Strength: Core: fair, Hip: 4/5 throughout with discomfort in testing glut med in clam position- Knee: 4+/5, Ankle: 5/5. Flex: HS: mild, Gastroc: mild - Balance/Special Test Scores Lower Extremity Functional Score: 70 - Goals Goal 1:: Patient will be I with HEP and progression Goal Time Frame: 4-6 Weeks Goal 2:: Patient will SLS without increased pelvic translation for 15 sec Goal Time Frame: 4-6 Weeks Goal 3:: Patient will maintain proper posture t/o tx session to demo increased core s/s Goal Time Frame: 4-6 Weeks Goal 4:: Patient will report 80% improvement Goal Time Frame: 4-6 Weeks - Rehabilitation Potential Physical Therapy Diagnosis: Patient presents with hypomobility- she has decreased LE and core strength/stabilization leading to increased pelvic translation irritating the ITBand in standing Rehabilitation Potential: Good - Anticipated Interventions Patient/Client Instruction: Educate patient on: Benefits of Fitness Program Therapeutic Exercise to Include: Strength training, Endurance training, Balance training, Coordination, Agility training, Body mechanics, Postural training, Flexibilty training, Gait and locomotor training, Neuromotor development, Dynamic Lumbar Stabilization, Scapular Strength/Stabilization For the Purpose of:: To improve muscle performance and motor function TENS: Yes Cryotherapy (ice pack, ice massage): Yes Thermo therapy (hot pack): Yes Ultrasound (thermal/non thermal): Yes Thank you for the opportunity to evaluate your patient. For Medicare and Medicare HMO plans, please review the plan of care and approve it. It will need to be FAXED BACK to us at [phone] for Medicare purposes. For Medicare only, by signing this I certify the plan of care. Please let me know if there are questions or concerns regarding this plan of care. Physician Signature: Date:
--- NOTE | 2022-07-07 13:26 | HP.PTREVAL ---
Dr. Cathryn Morrell, DO, It has been my pleasure to treat LAURA FERNANDEZ over the last 6 visits for Right Hip Sx. Please see the progress note below for an update on the physical therapy plan of care! Subjective: Patient reports that she was having a ton of pain in her hips- she had 3 shots yesterday and now she is doing great- she is frustrated that its the only thing that seems to help. If this injection doesn't work then they will do another MRI. Dr. Morrell did the injections yesterday. She does feel like therapy helps with stretching. Objective/Function: Posture: FH, RS- can correct but does not maintain. Gait: mild trunk sway but decreased translation HR/TR: able. SLS: 15 sec with mild pelvic translation when standing on right LE and reports pain. ROM: WFL in all planes. Strength: Core: fair, Hip: 4/5 throughout with discomfort in testing glut med in clam position- Knee: 4+/5, Ankle: 5/5. Flex: HS: mild, Gastroc: mild Plan Plan: 07/07/22: Continue with current POC 1x a week for 6 weeks. Focus on LE and core strength/stabilization- decreased hip translation during stance Balance/Gait/Functional tests - Balance/Special Test Scores Lower Extremity Functional Score: 65 Goals Goal 1:: Patient will be I with HEP and progression Goal Time Frame: 4-6 Weeks Goal 2:: Patient will SLS without increased pelvic translation for 15 sec Goal Time Frame: 4-6 Weeks Goal 3:: Patient will maintain proper posture t/o tx session to demo increased core s/s Goal Time Frame: 4-6 Weeks Goal 4:: Patient will report 80% improvement Goal Time Frame: 4-6 Weeks Anticipated Interventions Patient/Client Instruction: Educate patient on: Benefits of Fitness Program Therapeutic Exercise to Include: Strength training, Endurance training, Balance training, Coordination, Agility training, Body mechanics, Postural training, Flexibilty training, Gait and locomotor training, Neuromotor development, Dynamic Lumbar Stabilization, Scapular Strength/Stabilization For the Purpose of:: To improve muscle performance and motor function TENS: Yes Cryotherapy (ice pack, ice massage): Yes Thermo therapy (hot pack): Yes Ultrasound (thermal/non thermal): Yes Please do not hesitate to contact me at [phone] by phone or if you have questions or concerns regarding this new plan of care! Sincerely, MARLON CintronT
--- NOTE | 2022-10-03 07:20 | HP.PTDCSUM ---
It has been my pleasure to treat LAURA FERNANDEZ referred by Dr. Cathryn Morrell DO, with the diagnosis of Right Hip Sx for a total of 11 visit(s). Discharge Date: Please see the following information for a summary of their discharge status. Subjective: Patient reports that she is having an MRI tomorrow- they plan to do another surgery if she needs one- she goes back to see Dr. Limon after the MRI. S/S are back what they were prior to the injections. Laying on both sides is terrible and it throbs on the right LE. Even is she is not working its now throbbing. Right lateral hip Pain Intensity (Out of 10): 3 % Improvement: 0 Objective/Function: Posture: FH, RS- can correct but does not maintain. Gait: mild trunk sway but decreased translation HR/TR: able. SLS: 15 sec with mild pelvic translation when standing on right LE and reports pain. ROM: WFL in all planes. Strength: Core: fair, Hip: 4/5 throughout with discomfort in testing glut med in clam position- Knee: 4+/5, Ankle: 5/5. Flex: HS: mild, Gastroc: mild Goal 1:: Patient will be I with HEP and progression Goal Progress: Goal Met Goal 2:: Patient will SLS without increased pelvic translation for 15 sec Goal Progress: Not Progressing Goal 3:: Patient will maintain proper posture t/o tx session to demo increased core s/s Goal Progress: Not Progressing Goal 4:: Patient will report 80% improvement Goal Progress: Not Progressing Plan: Return to MD for further evaluation If there are questions or concerns regarding this patient's physical therapy, please feel free to call me at [phone]. Thank you for the referral of this patient. Sincerely, Hodan Ling, DPT Balance/Gait/Functional tests - Balance/Special Test Scores Lower Extremity Functional Score: 61
== END 2022-09-01 19:00 | disposition home or self-care (01) ==
LOC: PT 11:00
PROVIDERS: PCP Family Medicine; Referring Provider Orthopaedic Surgery; Visit Provider Orthopaedic Surgery
DX: M70.61 Trochanteric bursitis, right hip (principal); M76.31 Iliotibial band syndrome, right leg
CPT/HCPCS: 97110; 97162; 97164

== ENCOUNTER → 2022-09-02 | Outpatient (CLI) | payer BC, SELFPAY ==
--- NOTE | 2022-09-02 06:42 | MRI_ITS ---
STUDY: MRI RIGHT HIP REASON FOR EXAM: Female, 31 years old. Chronic right hip pain. TECHNIQUE: Standardized fat and water weighted pulse sequences were obtained in all 3 orthogonal planes. COMPARISON: Pelvic x-rays dated March 2021 and prior MRI of the hips dated December 2021 FINDINGS: Small bilateral hip effusions. Normal acetabulum. Normal labrum. Normal femoral head. Normal femoral neck and intratrochanteric region. Normal gluteus minimus, medius and iliopsoas tendons and distal insertions. Minimal left greater trochanteric bursitis (coronal series 5 image 13). Worsening of the right greater trochanteric bursitis with distention of the greater trochanteric bursa and soft tissue edema (coronal series 5 images 12-18 axial series 6 images 15-20). Normal superior and inferior pubic rami. Normal pubic symphysis. Normal ischial tuberosity. Normal origin of the hamstring tendons. Normal visualized iliac wing, sacroiliac joint, and sacral ala. Stable cystic structure projected over the right adnexa compatible with ovarian cyst measuring 4.5 cm (coronal series 5 images 12-19). MRI/Lower Ext Joint Only (Routine) IMPRESSION: Minimal left greater trochanteric bursitis. Worsening/progression of right greater trochanteric bursitis as described. Stable probable right ovarian cyst. No aggressive features. However, further evaluation of this finding may be performed by ultrasound, if clinical symptoms are suspicious for pelvic pathology. Small bilateral hip joint effusions. Electronically Signed: Mateo Aldana, at 10:11 EST ,
== END | disposition home or self-care (01) ==
PROVIDERS: PCP Family Medicine; Referring Provider Orthopaedic Surgery; Visit Provider Orthopaedic Surgery
DX: M70.61 Trochanteric bursitis, right hip (principal)
CPT/HCPCS: 73721

== ENCOUNTER → 2022-09-07 | Outpatient (CLI) | payer BC, SELFPAY ==
[2022-09-07 11:47] LABS: Erythrocyte Sedimentation Rate 4 mm/hr (0-30)
[2022-09-07 12:29] LABS: CRP < 2.90 mg/L (0.0-3.0); Rheumatoid Factor < 10.0 IU/mL (<15)
[2022-09-08 15:08] LABS: ANTINUCLEAR ANTIBODIES DIRECT Positive (Negative); Anti-Centromere B Ab <0.2 AI (0.0-0.9); Anti-Chromatin <0.2 AI (0.0-0.9); Anti-Jo <0.2 AI (0.0-0.9); Anti-Scleroderma-70 AB <0.2 AI (0.0-0.9); RNP Ab <0.2 AI (0.0-0.9); SJOGREN'S Anti-SS-A test 0.2 AI (0.0-0.9); SJOGREN'S Anti-SS-B test 2.6 AI (0.0-0.9); Smith Ab <0.2 AI (0.0-0.9)
[2022-09-08 18:55] LABS: Anti-dsDNA Ab 1 IU/mL (0-9); CCP IgG Antibodies 1 units (0-19)
== END | disposition home or self-care (01) ==
LOC: LAB 11:31
PROVIDERS: PCP Family Medicine; Referring Provider Family Medicine; Visit Provider Family Medicine
DX: M71.9 Bursopathy, unspecified (principal); Z13.0 Encounter for screening for diseases of the blood and blood-forming organs and certain disorders involving the immune mechanism
CPT/HCPCS: 36415; 85652; 86038; 86140; 86200; 86225; 86235; 86431

== ENCOUNTER 2022-12-08 08:39 | Emergency (ER) | payer BC, SELFPAY ==
[2022-12-08 08:41] VITALS: BP 150/90; PULSE 86; RESP 14; TEMP 36.1; O2SAT 100; BMI 29.5
--- NOTE | 2022-12-08 09:03 | EX.ED.DYSGE1 ---
HPI History of Present Illness Chief Complaint: Abscess Informant: patient Narrative Narrative: Patient presents with pain and swelling left side of her nose. Patient states she started with a small pimple on near her nostril on the left on Monday. She was able to squeeze and drain this. She drained it again Monday. She then saw her primary physician's office a couple days ago. She was placed on doxycycline. She has had 3 tablets. She states it is more swollen and more tender this morning. She does not have fevers chills sweats nausea or vomiting. No significant chronic medical problems. No diabetes. No history of immune issues. No trouble swallowing. No headache. [facility] Medical History Allergic dermatitis Anal fissure Chronic constipation Constipation Constipation External hemorrhoids History of steroid therapy Lymphocytic colitis Non-smoker (spontaneous vaginal delivery) Home Medications vitamin B12 1 mg-folic acid 0.8 mg tablet 1 tab PO DAILY 02/23/21 [History Last Taken 04/28/21] multivitamin 1 tab PO DAILY 07/26/21 [History Last Taken Unknown] phentermine 37.5 mg tablet 37.5 mg PO 07/26/21 [History Last Taken Unknown] topiramate 25 mg tablet tablet PO 09/01/21 [History Last Taken Unknown] azithromycin 250 mg tablet See Rx Instructions PO .COMPLEX #6 tabs 10/08/22 [Rx Last Taken Unknown] lubiprostone 24 mcg capsule (Amitiza) 24 mcg PO BID #60 caps 10/08/22 [Rx Last Taken Unknown] cephalexin 500 mg capsule 500 mg PO Q6 #40 CAPSULES 12/08/22 [Rx Last Taken Unknown] ondansetron 4 mg disintegrating tablet 4 mg PO Q8H PRN PRN Nausea #10 tabs 12/08/22 [Rx Last Taken Unknown] oxycodone-acetaminophen 5 mg-325 mg tablet 1 tab PO Q6H PRN PRN Pain 3 days #12 TABLETS 12/08/22 [Rx Last Taken Unknown] Allergy/AdvReac Type Severity Reaction Status Date / Time No Known Allergies Allergy Verified 12/08/22 08:41 Family History Mother Arthritis Hypertension Father Arthritis Hypertension Aunt Breast cancer Grandfather Heart disease Kidney disease Brother Hypertension Sister Hypertension Surgical History History of hemorrhoidectomy (~05/2018) History of tonsillectomy Hx of dilation and curettage Hx of umbilical hernia repair Social History Smoking Status: Never smoker alcohol intake: never substance use type: does not use ROS ROS ED Constitutional Constitutional ED: Denies chills, fever(s) or sweats Eyes Eyes: Denies blurry vision, change in vision or diplopia ENT ENT ED: Reports other Details: See history of present illness ; Denies sore throat Cardiovascular Cardiovascular: Denies chest pain Respiratory/Chest Respiratory/Chest: Denies cough or dyspnea Gastrointestinal Gastrointestinal: Denies nausea or vomiting Musculoskeletal Musculoskeletal: Denies myalgias Integumentary Reports abscess Neurologic Neurologic: Denies headache(s), paresthesias or weakness Endocrine Endocrinology: Denies polydipsia or polyuria Allergic/Immunologic Allergic/Immunologic ED: Denies mouth swelling or tongue swelling EXAM Physical Exam Narrative Exam Narrative: Patient awake alert no acute distress sitting comfortably in the bed. HEENT does show some swelling of the lower aspect of the nostril on the left in the upper left below it. Inside the lip I am was feel fullness but I cannot see any area that is draining or easily drained. There is mild erythema just below the nostril but does not extend to the face. The teeth are nontender. No sinus tenderness. No swelling higher up in the nose or eyelids. This does appear to have some fluctuance at the base of the nostril on the left. Right is unaffected. Exam is consistent with what appears to be an abscess. Neck shows no lymphadenopathy Heart is regular Lungs are clear bilaterally and saturations are normal at 100% on room air Skin shows no other diffuse rash. Const Vital Signs: 12/08/22 08:41 12/08/22 11:00 Temperature 97 F L 98.6 F Temperature Source Temporal Temporal Pulse Rate 86 69 Respiratory Rate 14 16 Blood Pressure 150/90 H 132/91 H Blood Pressure Mean 110 104 Pulse Ox 100 100 Oxygen Delivery Method Room Air Room Air MDM MDM MDM Narrative Medical decision making narrative: Patient was seen just before a very large number of patients came into the ED. It is stayed extremely busy today. I have had multiple critical patients in ICU admits. Because of this it is taken a while to get back to her. I did place some 4% lidocaine in the nose to try to get good local anesthesia. We ended up using a small amount of local lidocaine. We used 11 blade to try to puncture the area but were not able to get back any purulent material. I do not want to go further in as I think I can do more damage than benefit. Patient also states that it hurts a fair amount. We explained that this may all be cellulitic changes. We looked up our antibiotics sensitivities. Doxycycline does have good MRSA coverage I will add Keflex for further coverage of MSSA and strep. We will get her meds for pain. She can take Percocet but it causes nausea so I will write for Zofran. I explained that if she gets more swelling, fevers chills vomiting trouble swallowing or pain she may need to come back but at this point she is only taken 3 doses of antibiotics. This is not failure of antibiotic therapy. She is overall healthy with no immunosuppression or diabetes and should do well as an outpatient. Discharge Plan Triage Chief Complaint: Abscess ED Provider: Santi Pelayo Dx/Rx/DC Orders Clinical Impression: Cellulitis of face Instructions: ED Cellulitis, Facial Prescriptions: New oxycodone-acetaminophen [oxycodone-acetaminophen] 5-325 mg tablet 1 tab PO Q6H PRN PRN (Reason: Pain) 3 Days Qty: 12 0RF cephalexin [cephalexin] 500 mg capsule 500 mg PO Q6 Qty: 40 0RF ondansetron [ondansetron] 4 mg tablet,disintegrating 4 mg PO Q8H PRN PRN (Reason: Nausea) Qty: 10 0RF No Action multivitamin Tablet 1 tab PO DAILY phentermine 37.5 mg tablet 37.5 mg PO Label Comments: TAKE 1 TABLET BY MOUTH ONCE DAILY topiramate 25 mg tablet PO lubiprostone [Amitiza] 24 mcg capsule 24 mcg PO BID Qty: 60 0RF azithromycin 250 mg tablet See Rx Instructions PO .COMPLEX Qty: 6 0RF Rx Instructions: take 500 mg today (day 1), then 250 mg for 4 days (days 2-5) PO vitamin H19-fjsmj acid 1-0.8 mg Tablet 1 tab PO DAILY Primary Care Provider: Yonas Ya Referrals: Yonas Ya DO [Primary Care Provider] - 2 Days for wound check Disposition Disposition: Home, Self Care
[2022-12-08] MEDS: Lidocaine 4% 50 ML Bottle TOPICAL (09:20)
--- NOTE | 2022-12-08 10:36 | ED.RN ---
PT AWARE WILL BE WAITING FOR AWHILE DUE TO DEPARTMENTAL ACTIVITY
[2022-12-08 11:00] VITALS: BP 132/91; PULSE 69; RESP 16; TEMP 37; O2SAT 100
[2022-12-08] MEDS: Lidocaine 1% (20 ml mdv) 20 ML Vial 10 ML INFILT (12:17)
== END 2022-12-08 13:47 | disposition home or self-care (01) ==
PROVIDERS: Emergency Provider Emergency Medicine; PCP Family Medicine; Visit Provider Emergency Medicine
DX: L03.211 Cellulitis of face (principal)
CPT/HCPCS: 10060; 99282

== ENCOUNTER → 2023-03-03 | Outpatient (CLI) | payer BC, SELFPAY ==
[2023-03-10 15:08] LABS: HPV APTIMA, High Risk Negative (Negative)
== END | disposition home or self-care (01) ==
LOC: LABSPEC 11:52
PROVIDERS: PCP Family Medicine; Visit Provider Obstetrics & Gynecology
DX: Z12.4 Encounter for screening for malignant neoplasm of cervix (principal)
CPT/HCPCS: 87624; 88175; G0145

== ENCOUNTER → 2023-03-22 | Outpatient (CLI) | payer BC, SELFPAY ==
[2023-03-22 10:02] LABS: Absolute Lymphocyte Count 1.76 X10^3/uL (0.83-4.51); Absolute Neutrophil Count 3.5 X10^3/uL (2.0-7.7); Basophil# 0.04 X10^3/uL; Basophil% 0.7 % (0-1); Eosinophil# 0.22 X10^3/uL; Eosinophils% 3.8 % (0-5); Hematocrit 35.1 % (37-47); Lymphocyte # 1.76 X10^3/ul (0.83-4.51); Lymphocyte % 30.1 % (19-41); Mean Corp Hgb Conc 31.3 g/dL (32-36); Mean Corpuscular Hgb 27.6 pg (27.0-32.0); Mean Corpuscular Volume 88.2 fL (81-99); Mean Platelet Vol. 10.3 fl (6.2-12.0); Monocyte# 0.28 X10^3/uL; Monocyte% 4.8 % (0-10); NRBC Flagged by Analyzer 0 % (0-5); Neutrophil # 3.52 X10^3/uL (2.7-7.7); Neutrophil % 60.1 % (47-70); Platelet Count 276 K/mm3 (150-450); RBC Distribution Width CV 12.9 % (11.6-14.6); RBC Distribution Width SD 41.7 fl (35.1-43.9); Red Blood Count 3.98 M/mm3 (4.2-5.4); White Blood Count 5.9 K/mm3 (4.4-11.0)
[2023-03-22 10:41] LABS: ALB/GLOB Ratio 1.3 RATIO (0.9-2.4); AST(SGOT) 6 U/L (15-37); Alanine Aminotransfer ALT/SGPT 13 U/L (13-56); Albumin, Serum 3.9 g/dL (3.2-5.0); Alkaline Phosphatase 45 U/L (45-117); Anion Gap 3 (5-15); BUN 8 mg/dL (7-18); BUN/Creat Ratio 10.5 RATIO (10-20); Calcium,Total 8.8 mg/dL (8.5-10.1); Chloride 109 mmol/L (98-107); Cholesterol 134 mg/dL (200); Creatinine, Serum 0.76 mg/dL (0.55-1.02); EST Glomerular Filtration Rate 92 mL/min (>60); Est Glom Filt Rate - Afr Amer 111 mL/min (>60); Ferritin 5 ng/mL (8-252); Glucose 81 mg/dL (74-106); High Density Lipoprotein 52 mg/dL; Iron 33 ug/dL (50-170); Potassium 3.7 mmol/L (3.5-5.1); Protein, Total 6.9 g/dL (6.4-8.2); Sodium Level 140 mmol/L (136-145); Triglycerides 58 mg/dL; Very Low Density Lipoprotein 12 mg/dL (5-40)
[2023-03-22 10:43] LABS: Vitamin B12 420 pg/mL (211-911); Vitamin D,25 Hydroxy 51.8 ng/mL
== END | disposition home or self-care (01) ==
LOC: LAB 08:59
PROVIDERS: PCP Family Medicine; Referring Provider Nurse Practitioner Family; Visit Provider Nurse Practitioner Family
DX: Z00.01 Encounter for general adult medical examination with abnormal findings (principal); R53.83 Other fatigue; R42 Dizziness and giddiness; E53.8 Deficiency of other specified B group vitamins
CPT/HCPCS: 36415; 80053; 80061; 82306; 82607; 82728; 83540; 85025

== ENCOUNTER → 2023-05-26 | Outpatient (CLI) | payer BC, SELFPAY ==
[2023-05-26 12:42] LABS: Absolute Lymphocyte Count 1.71 X10^3/uL (0.83-4.51); Absolute Neutrophil Count 2.5 X10^3/uL (2.0-7.7); Basophil# 0.05 X10^3/uL; Basophil% 1.1 % (0-1); Eosinophil# 0.17 X10^3/uL; Eosinophils% 3.6 % (0-5); Hemoglobin 13.4 g/dL (12.0-15.0); Lymphocyte # 1.71 X10^3/ul (0.83-4.51); Lymphocyte % 36.3 % (19-41); Mean Corp Hgb Conc 34.4 g/dL (32-36); Mean Corpuscular Hgb 31.6 pg (27.0-32.0); Mean Platelet Vol. 9.5 fl (6.2-12.0); Monocyte# 0.29 X10^3/uL; Monocyte% 6.2 % (0-10); NRBC Flagged by Analyzer 0 % (0-5); Neutrophil # 2.48 X10^3/uL (2.7-7.7); Neutrophil % 52.6 % (47-70); Platelet Count 349 K/mm3 (150-450); RBC Distribution Width CV 13.5 % (11.6-14.6); RBC Distribution Width SD 44.3 fl (35.1-43.9); Red Blood Count 4.24 M/mm3 (4.2-5.4); White Blood Count 4.7 K/mm3 (4.4-11.0)
[2023-05-26 13:00] LABS: Ferritin 11 ng/mL (8-252); Iron 49 ug/dL (50-170)
== END | disposition home or self-care (01) ==
LOC: BFHLAB 10:16
PROVIDERS: PCP Family Medicine; Visit Provider Family Medicine
DX: D50.9 Iron deficiency anemia, unspecified (principal)
CPT/HCPCS: 36415; 82728; 83540; 85025

== ENCOUNTER → 2023-08-21 | Outpatient (CLI) | payer BC, SELFPAY ==
[2023-08-21 18:14] LABS: Protein:Creat Ratio 143 mg/g CRE (0-200)
[2023-08-24 04:07] LABS: Chlamydia By Nucleic Acid AMP Negative (Negative); Gonococcus By Nucleic Acid AMP Negative (Negative)
== END | disposition home or self-care (01) ==
PROVIDERS: PCP Family Medicine; Visit Provider Obstetrics & Gynecology
DX: O09.299 Supervision of pregnancy with other poor reproductive or obstetric history, unspecified trimester (principal); Z3A.00 Weeks of gestation of pregnancy not specified
CPT/HCPCS: 82570; 84156; 87086; 87491; 87591

== ENCOUNTER → 2023-09-12 | Outpatient (CLI) | payer BC, SELFPAY ==
[2023-09-12 12:36] LABS: Absolute Lymphocyte Count 1.42 X10^3/uL (0.83-4.51); Absolute Neutrophil Count 4.1 X10^3/uL (2.0-7.7); Basophil# 0.02 X10^3/uL; Basophil% 0.3 % (0-1); Eosinophil# 0.14 X10^3/uL; Eosinophils% 2.4 % (0-5); Hematocrit 35.7 % (37-47); Hemoglobin 12.4 g/dL (12.0-15.0); Lymphocyte # 1.42 X10^3/ul (0.83-4.51); Lymphocyte % 23.9 % (19-41); Mean Corp Hgb Conc 34.7 g/dL (32-36); Mean Corpuscular Hgb 30.4 pg (27.0-32.0); Mean Corpuscular Volume 87.5 fL (81-99); Mean Platelet Vol. 9.3 fl (6.2-12.0); Monocyte# 0.31 X10^3/uL; Monocyte% 5.2 % (0-10); NRBC Flagged by Analyzer 0 % (0-5); Neutrophil # 4.05 X10^3/uL (2.7-7.7); Platelet Count 258 K/mm3 (150-450); RBC Distribution Width CV 12.5 % (11.6-14.6); RBC Distribution Width SD 39.5 fl (35.1-43.9); Red Blood Count 4.08 M/mm3 (4.2-5.4)
[2023-09-12 13:21] LABS: ALB/GLOB Ratio 1.2 RATIO (0.9-2.4); AST(SGOT) 11 U/L (15-37); Alanine Aminotransfer ALT/SGPT 15 U/L (13-56); Albumin, Serum 3.7 g/dL (3.2-5.0); Alkaline Phosphatase 46 U/L (45-117); Anion Gap 9 (5-15); BUN 10 mg/dL (7-18); BUN/Creat Ratio 16.5 RATIO (10-20); Calcium,Total 9.2 mg/dL (8.5-10.1); Chloride 107 mmol/L (98-107); Creatinine, Serum 0.61 mg/dL (0.55-1.02); EST Glomerular Filtration Rate 119 mL/min (>60); Est Glom Filt Rate - Afr Amer 145 mL/min (>60); Globulin 3.2 g/dL (2.2-4.2); Glucose 67 mg/dL (74-106); Potassium 3.2 mmol/L (3.5-5.1); Protein, Total 6.9 g/dL (6.4-8.2); Sodium Level 139 mmol/L (136-145)
[2023-09-12 13:37] LABS: HIV - WCH Non-Reactive (Nonreactive); Hepatitis B Surface Antigen Non-Reactive (Nonreactive); Hepatitis C Antibody Non-Reactive (Nonreactive); Rubella IgG Reactive (Nonreactive); Syphilis Antibodies Non-reactive
== END | disposition home or self-care (01) ==
LOC: MTLAB 10:13
PROVIDERS: PCP Family Medicine; Referring Provider Obstetrics & Gynecology; Visit Provider Obstetrics & Gynecology
DX: O09.521 Supervision of elderly multigravida, first trimester (principal); Z3A.00 Weeks of gestation of pregnancy not specified
CPT/HCPCS: 36415; 80053; 85025; 86703; 86762; 86780; 86803; 86850; 86900; 86901; 87340

== ENCOUNTER → 2023-10-20 | Outpatient (CLI) | payer BC, SELFPAY | END | disposition home or self-care (01) | LOC: LABSPEC 16:37 | PROVIDERS: PCP Family Medicine; Referring Provider Obstetrics & Gynecology; Visit Provider Obstetrics & Gynecology | DX: N89.8 Other specified noninflammatory disorders of vagina (principal) | CPT/HCPCS: 87070; 87086; 87205 ==

== ENCOUNTER → 2023-11-14 | Outpatient (CLI) | payer BC, SELFPAY | END | disposition home or self-care (01) | LOC: LABSPEC 12:59 | PROVIDERS: PCP Family Medicine; Referring Provider Obstetrics & Gynecology; Visit Provider Obstetrics & Gynecology | DX: N89.8 Other specified noninflammatory disorders of vagina (principal) | CPT/HCPCS: 87070; 87205 ==

== ENCOUNTER → 2023-12-21 | Outpatient (CLI) | payer BC, SELFPAY ==
[2023-12-21 11:20] LABS: Absolute Lymphocyte Count 1.57 X10^3/uL (0.83-4.51); Absolute Neutrophil Count 4.9 X10^3/uL (2.0-7.7); Basophil# 0.02 X10^3/uL; Basophil% 0.3 % (0-1); Eosinophil# 0.18 X10^3/uL; Eosinophils% 2.6 % (0-5); Hematocrit 34.2 % (37-47); Hemoglobin 11.7 g/dL (12.0-15.0); Lymphocyte # 1.57 X10^3/ul (0.83-4.51); Lymphocyte % 22.5 % (19-41); Mean Corp Hgb Conc 34.2 g/dL (32-36); Mean Corpuscular Hgb 30.8 pg (27.0-32.0); Mean Platelet Vol. 9.8 fl (6.2-12.0); Monocyte# 0.26 X10^3/uL; Monocyte% 3.7 % (0-10); NRBC Flagged by Analyzer 0 % (0-5); Neutrophil # 4.91 X10^3/uL (2.7-7.7); Neutrophil % 70.2 % (47-70); Platelet Count 217 K/mm3 (150-450); RBC Distribution Width CV 12.7 % (11.6-14.6); RBC Distribution Width SD 41.4 fl (35.1-43.9)
[2023-12-21 11:39] LABS: Glucose Challenge Gest 1H 50g 134 mg/dL (70-140)
[2023-12-21 12:17] LABS: HIV - WCH Non-Reactive (Nonreactive); Syphilis Antibodies Non-reactive
== END | disposition home or self-care (01) ==
LOC: PAVLAB 10:55
PROVIDERS: PCP Family Medicine; Referring Provider Nurse Practitioner Women's Health; Visit Provider Nurse Practitioner Women's Health
DX: Z13.1 Encounter for screening for diabetes mellitus (principal)
CPT/HCPCS: 36415; 82950; 85025; 86703; 86780

== ENCOUNTER → 2024-01-15 | Outpatient (CLI) | payer BC, SELFPAY | END | disposition home or self-care (01) | PROVIDERS: PCP Family Medicine; Visit Provider Obstetrics & Gynecology | DX: O26.899 Other specified pregnancy related conditions, unspecified trimester (principal); R10.2 Pelvic and perineal pain; Z3A.00 Weeks of gestation of pregnancy not specified | CPT/HCPCS: 87086; 87088 ==

== ENCOUNTER 2024-02-20 23:40 | Outpatient (CLI) | payer BC, SELFPAY ==
[2024-02-20 23:57] VITALS: PULSE 101; O2SAT 99
[2024-02-21] VITALS (22 sets, daily range): BP systolic 121–165; BP diastolic 81–91; PULSE 83–105; O2SAT 89–99; BMI 39.2
[2024-02-21 01:03] LABS: Mucous, Urine 0 SEEN /hpf (<or=2+); Red Blood Cells-Urine 0 SEEN /hpf (0-5); White Blood Cells 0 SEEN /hpf (0-5)
[2024-02-21 01:06] LABS: Color, Urine Yellow (Yellow); Glucose, Dipstick Normal (Normal); Hematocrit 32.6 % (37-47); Hemoglobin 11.1 g/dL (12.0-15.0); Ketone-Dipstick 5 mg/dl (Negative); Leukocyte Esterase-Dipstick Negative /ul (Negative); Mean Corpuscular Hgb 30.2 pg (27.0-32.0); Mean Corpuscular Volume 88.6 fL (81-99); Mean Platelet Vol. 11.7 fl (6.2-12.0); Nitrite-Dipstick Negative (Negative); Occult Blood-Urine Negative /ul (Negative); POSITIVE COUNT YES; Protein-Dipstick Negative (Negative); RBC Distribution Width CV 12.9 % (11.6-14.6); RBC Distribution Width SD 41.7 fl (35.1-43.9); Red Blood Count 3.68 M/mm3 (4.2-5.4); Urine Bilirubin Dipstick Negative (Negative); Urine Clarity Clear (Clear); Urine Urobilinogen Normal (Normal); White Blood Count 7.7 K/mm3 (4.4-11.0)
[2024-02-21 01:19] LABS: AST(SGOT) 10 U/L (15-37); Alanine Aminotransfer ALT/SGPT 13 U/L (13-56); EST Glomerular Filtration Rate 149 mL/min (>60); Est Glom Filt Rate - Afr Amer 180 mL/min (>60); Estimated Creatinine Clearance 170.96 ml/min; Uric Acid 4.5 mg/dL (2.6-6.0)
[2024-02-21 01:20] LABS: Bacteria RARE /hpf (None Seen); Protein, Urine (Random) 11.9 mg/dL (<11.9); Protein:Creat Ratio 116 mg/g CRE (0-200); Squamous Epithelial Cells - UA 0-5 SEEN /hpf (5-10)
[2024-02-21 01:42] LABS: Scan Indicated on CBC? Y/N YES- FLAGS NOTED
[2024-02-21 02:29] LABS: Platelet Count 151 K/mm3 (150-450)
[2024-02-21] MEDS: Betamethasone/Betamethasone 30 MG/5 ML Vial 12 MG IM (03:24)
--- NOTE | 2024-02-22 19:48 | OB.TRI.PN ---
Progress Notes Date of Service: 02/20/24 Progress Note: Patient presents for triage evaluation secondary to threatened ptl and possible preeclampsia FHT: 130 Moderate variability reactive no decelerations category I tracing [place]: no regular Contractions Assessment and plan: threatened labor no cervical change, elevated bp intiitally- repeat WNL, labs WNL. Reactive NST, reassuring maternal and status patient discharged to home to follow-up in office end of week, celestone given todya and will be given tomorrow. See problem list details for additional plan information. Laboratory Studies: Laboratory Tests 02/21/24 02/21/24 02/21/24 Range/Units 02:20 02:20 00:50 WBC Cancelled 7.7 (4.4-11.0) K/mm3 Corrected WBC Cancelled RBC Cancelled 3.68 L (4.2-5.4) M/mm3 Hgb Cancelled 11.1 L (12.0-15.0) g/dL Hct Cancelled 32.6 L (37-47) % MCV Cancelled 88.6 (81-99) fL MCH Cancelled 30.2 (27.0-32.0) pg MCHC Cancelled 34.0 (32-36) g/dL RDW Std Deviation Cancelled 41.7 (35.1-43.9) fl RDW Coeff of Oneil Cancelled 12.9 (11.6-14.6) % Plt Count 151 TNP MPV Cancelled 11.7 (6.2-12.0) fl Immature Gran % (Auto) Cancelled Neut % (Auto) Cancelled Lymph % (Auto) Cancelled [place] % (Auto) Cancelled Eos % (Auto) Cancelled Baso % (Auto) Cancelled Neut # (Auto) Cancelled Immature Gran # (Auto) Cancelled Absolute Neuts (auto) Cancelled Absolute Lymphs (auto) Cancelled Absolute Monos (auto) Cancelled Total Counted Cancelled Neutrophils % (Manual) Cancelled Band Neutrophils % Cancelled Lymphocytes % (Manual) Cancelled Monocytes % (Manual) Cancelled Eosinophils % (Manual) Cancelled Basophils % (Manual) Cancelled Metamyelocytes % Cancelled Myelocytes % Cancelled Promyelocytes % Cancelled Blast Cells % Cancelled Plasma Cell % (Manual) Cancelled Other Cells % Cancelled Nucleated RBC % Cancelled Lymphocytes # Cancelled Basophils # Cancelled Nucleated RBCs/100 WBC Cancelled Differential Comment Cancelled Hypersegmented Neuts Cancelled Atypical Lymphocytes Cancelled Reactive Lymphocytes Cancelled Smudge Cells Cancelled Eosinophilia # Cancelled Toxic Granulation Cancelled Toxic Vacuolation Cancelled Dohle Bodies Cancelled Crystal Rods Cancelled Platelet Estimate Cancelled Plt Morphology Comment Cancelled RBC Morphology Cancelled Cancelled Polychromasia Cancelled Hypochromasia Cancelled Basophilic Stippling Cancelled Anisocytosis Cancelled Microcytosis Cancelled Macrocytosis Cancelled Spherocytes Cancelled Sickle Cells Cancelled Target Cells Cancelled Tear Drop Cells Cancelled Ovalocytes Cancelled Stomatocytes Cancelled Ortiz-Hiddenite Bodies Cancelled [place] Cells Cancelled Bite Cells Cancelled Crenated Cell Cancelled Acanthocytes (Spur) Cancelled Rouleaux Cancelled Schistocytes Cancelled Creatinine 0.50 L (0.55-1.02) mg/dL Estim Creat Clear Calc 170.96 ml/min Est GFR (MDRD) Af Amer 180 (>60) mL/min Est GFR (MDRD) Non-Af 149 (>60) mL/min Uric Acid 4.5 (2.6-6.0) mg/dL AST 10 L (15-37) U/L ALT 13 (13-56) U/L Urine Color Yellow (Yellow) Urine Clarity Clear (Clear) Urine pH 6.0 (5.0 - 8.0) Ur Specific [place] 1.020 (1.002-1.030) Urine Protein Negative (Negative) mg/dl Urine Glucose (UA) Normal (Normal) mg/dl Urine Ketones 5 H (Negative) mg/dl Urine Occult Blood Negative (Negative) /ul Urine Nitrite Negative (Negative) Urine Bilirubin Negative (Negative) mg/dL Urine Urobilinogen Normal (Normal) mg/dl Ur Leukocyte Esterase Negative (Negative) /ul Urine RBC 0 SEEN (0-5) /hpf Urine WBC 0 SEEN (0-5) /hpf Ur Squamous Epith Cells 0-5 SEEN (5-10) /hpf Urine Bacteria RARE (None Seen) /hpf Urine Mucus 0 SEEN (<or=2+) /hpf U Random Total Protein 11.9 H (<11.9) mg/dL Urine Creatinine 103.00 (NO RANGE EST.) mg/dL Protein/Creatinin Ratio 116 (0-200) mg/g CRE Charges/Coding Procedures Urinary/Genital 52xxx-59xxx: 05028-12 non-stress test Interp
== END 2024-02-21 03:40 | disposition home or self-care (01) ==
LOC: WPOUT 23:44 → WP 23:44
PROVIDERS: PCP Family Medicine; Referring Provider Obstetrics & Gynecology; Visit Provider Obstetrics & Gynecology
DX: O47.9 False labor, unspecified (principal); Z3A.00 Weeks of gestation of pregnancy not specified
CPT/HCPCS: 36415; 59050; 81001; 82565; 82570; 84156; 84450; 84460; 84550; 85027; 85049; 99221; G0378; J0702

== ENCOUNTER 2024-02-22 00:05 | Outpatient (CLI) | payer BC, SELFPAY ==
[2024-02-22 00:17] VITALS: BP 137/77; PULSE 93; RESP 16; TEMP 36.5; O2SAT 100
[2024-02-22] MEDS: Betamethasone/Betamethasone 30 MG/5 ML Vial 12 MG IM (00:35)
--- NOTE | 2024-02-26 08:24 | OB.TRI.PN ---
Progress Notes Date of Service: 02/22/24 Progress Note: 34 weeks celestone given for elevate sbps and prematurtiy repeat bps WNL Assessment & Plan (1) Hx of pre-eclampsia in prior , currently : COMMENT: Baseline labs ordered with NOB labs (2) Supervision of high-risk : QUALIFIERS: Trimester: second trimester Qualified Code(s): O09.92 - Supervision of high risk , unspecified, second trimester COMMENT: PRR, , RAMSES 03/26/24[facility] Lakisha Martin Lincoln Alvarez (3) : QUALIFIERS: Weeks of gestation: 34 weeks Qualified Code(s): Z3A.34 - 34 weeks gestation of COMMENT: nl anatomy, NIPT low risk
== END 2024-02-22 00:55 | disposition home or self-care (01) ==
LOC: WPOUT 00:11 → WP 00:11
PROVIDERS: PCP Family Medicine; Visit Provider Obstetrics & Gynecology
DX: O09.93 Supervision of high risk pregnancy, unspecified, third trimester (principal); Z3A.34 34 weeks gestation of pregnancy; O99.891 Other specified diseases and conditions complicating pregnancy; R03.0 Elevated blood-pressure reading, without diagnosis of hypertension
CPT/HCPCS: 99221; G0378; J0702

== ENCOUNTER → 2024-02-26 | Outpatient (CLI) | payer BC, SELFPAY ==
[2024-02-26 11:23] LABS: Hematocrit 33.1 % (37-47); Mean Corp Hgb Conc 33.2 g/dL (32-36); Mean Corpuscular Hgb 30.5 pg (27.0-32.0); Mean Corpuscular Volume 91.7 fL (81-99); POSITIVE COUNT YES; RBC Distribution Width CV 13.3 % (11.6-14.6); RBC Distribution Width SD 43.6 fl (35.1-43.9); Red Blood Count 3.61 M/mm3 (4.2-5.4); White Blood Count 8.1 K/mm3 (4.4-11.0)
[2024-02-26 11:40] LABS: Protein, Urine (Random) 6.1 mg/dL (<11.9); Protein:Creat Ratio 265 mg/g CRE (0-200)
[2024-02-26 12:02] LABS: ALB/GLOB Ratio 0.7 RATIO (0.9-2.4); AST(SGOT) 9 U/L (15-37); Alanine Aminotransfer ALT/SGPT 14 U/L (13-56); Albumin, Serum 2.5 g/dL (3.2-5.0); Alkaline Phosphatase 78 U/L (45-117); Anion Gap 3 (5-15); BUN 6 mg/dL (7-18); BUN/Creat Ratio 12.4 RATIO (10-20); Calcium,Total 8.5 mg/dL (8.5-10.1); Chloride 109 mmol/L (98-107); Creatinine, Serum 0.48 mg/dL (0.55-1.02); EST Glomerular Filtration Rate 155 mL/min (>60); Est Glom Filt Rate - Afr Amer 188 mL/min (>60); Globulin 3.5 g/dL (2.2-4.2); Glucose 87 mg/dL (74-106); LDH 139 U/L (84-246); Potassium 3.9 mmol/L (3.5-5.1); Sodium Level 138 mmol/L (136-145); Uric Acid 3.7 mg/dL (2.6-6.0)
[2024-02-26 12:07] LABS: Scan Indicated on CBC? Y/N YES- FLAGS NOTED
== END | disposition home or self-care (01) ==
PROVIDERS: PCP Family Medicine; Referring Provider Obstetrics & Gynecology; Visit Provider Obstetrics & Gynecology
DX: O09.92 Supervision of high risk pregnancy, unspecified, second trimester (principal); O09.299 Supervision of pregnancy with other poor reproductive or obstetric history, unspecified trimester; Z3A.00 Weeks of gestation of pregnancy not specified
CPT/HCPCS: 36415; 80053; 82570; 83615; 84156; 84550; 85027; 87081

== ENCOUNTER → 2024-03-04 | Outpatient (CLI) | payer BC, SELFPAY ==
[2024-03-04 11:17] LABS: ROM Internal Control Test YES-OK TO RESULT pt. (Internal QC); ROM Patient Test Negative (Negative); Record Kit Lot#, ROM+ K1866
[2024-03-04 13:48] LABS: Protein, Urine (Random) 39.2 mg/dL (<11.9); Protein:Creat Ratio 152 mg/g CRE (0-200)
== END | disposition home or self-care (01) ==
PROVIDERS: PCP Family Medicine; Referring Provider Advanced Practice Midwife; Visit Provider Advanced Practice Midwife
DX: O09.92 Supervision of high risk pregnancy, unspecified, second trimester (principal); Z3A.00 Weeks of gestation of pregnancy not specified
CPT/HCPCS: 82570; 84112; 84156

== ENCOUNTER → 2024-03-05 | Outpatient (CLI) | payer BC, SELFPAY ==
[2024-03-05 10:38] LABS: Protein:Creat Ratio 188 mg/g CRE (0-200)
[2024-03-05 12:59] LABS: Absolute Lymphocyte Count 1.56 X10^3/uL (0.83-4.51); Absolute Neutrophil Count 5.8 X10^3/uL (2.0-7.7); Basophil# 0.04 X10^3/uL; Basophil% 0.5 % (0-1); Eosinophil# 0.11 X10^3/uL; Eosinophils% 1.4 % (0-5); Hematocrit 35.6 % (37-47); Hemoglobin 11.7 g/dL (12.0-15.0); Lymphocyte # 1.56 X10^3/ul (0.83-4.51); Lymphocyte % 19.4 % (19-41); Mean Corp Hgb Conc 32.9 g/dL (32-36); Mean Corpuscular Hgb 30.1 pg (27.0-32.0); Mean Corpuscular Volume 91.5 fL (81-99); Monocyte# 0.52 X10^3/uL; Monocyte% 6.5 % (0-10); NRBC Flagged by Analyzer 0 % (0-5); Neutrophil # 5.76 X10^3/uL (2.7-7.7); Neutrophil % 71.5 % (47-70); POSITIVE COUNT YES; RBC Distribution Width CV 13.7 % (11.6-14.6); RBC Distribution Width SD 44.7 fl (35.1-43.9); Red Blood Count 3.89 M/mm3 (4.2-5.4); White Blood Count 8.1 K/mm3 (4.4-11.0)
[2024-03-05 13:30] LABS: Differential Indicated SCAN CRITERIA MET
[2024-03-05 13:31] LABS: Differential Comment SCANNED; Platelet Estimate ADEQUATE (ADEQ)
[2024-03-05 14:04] LABS: ALB/GLOB Ratio 0.8 RATIO (0.9-2.4); AST(SGOT) 12 U/L (15-37); Alanine Aminotransfer ALT/SGPT 14 U/L (13-56); Albumin, Serum 2.8 g/dL (3.2-5.0); Alkaline Phosphatase 94 U/L (45-117); Anion Gap 9 (5-15); BUN 7 mg/dL (7-18); BUN/Creat Ratio 12.5 RATIO (10-20); Chloride 106 mmol/L (98-107); Creatinine, Serum 0.56 mg/dL (0.55-1.02); EST Glomerular Filtration Rate 131 mL/min (>60); Est Glom Filt Rate - Afr Amer 159 mL/min (>60); Globulin 3.5 g/dL (2.2-4.2); Glucose 82 mg/dL (74-106); Potassium 3.7 mmol/L (3.5-5.1); Protein, Total 6.3 g/dL (6.4-8.2); Sodium Level 138 mmol/L (136-145)
== END | disposition home or self-care (01) ==
LOC: MTLAB 09:15
PROVIDERS: PCP Family Medicine; Referring Provider Advanced Practice Midwife; Visit Provider Advanced Practice Midwife
DX: O09.299 Supervision of pregnancy with other poor reproductive or obstetric history, unspecified trimester (principal); O09.522 Supervision of elderly multigravida, second trimester; Z3A.00 Weeks of gestation of pregnancy not specified
CPT/HCPCS: 36415; 80053; 82570; 84156; 85025

== ENCOUNTER → 2024-03-06 | Outpatient (CLI) | payer BC, SELFPAY ==
[2024-03-06 18:23] LABS: Absolute Neutrophil Count 5.9 X10^3/uL (2.0-7.7); Basophil# 0.02 X10^3/uL; Basophil% 0.3 % (0-1); Eosinophil# 0.08 X10^3/uL; Hematocrit 33.2 % (37-47); Hemoglobin 11.2 g/dL (12.0-15.0); Lymphocyte % 17.5 % (19-41); Mean Corp Hgb Conc 33.7 g/dL (32-36); Mean Corpuscular Hgb 30.9 pg (27.0-32.0); Mean Corpuscular Volume 91.7 fL (81-99); Mean Platelet Vol. 11.8 fl (6.2-12.0); Monocyte# 0.53 X10^3/uL; Monocyte% 6.6 % (0-10); NRBC Flagged by Analyzer 0 % (0-5); Neutrophil # 5.92 X10^3/uL (2.7-7.7); Neutrophil % 74.1 % (47-70); POSITIVE COUNT YES; Platelet Count 145 K/mm3 (150-450); RBC Distribution Width CV 13.8 % (11.6-14.6); RBC Distribution Width SD 45.3 fl (35.1-43.9); Red Blood Count 3.62 M/mm3 (4.2-5.4)
[2024-03-06 18:28] LABS: Differential Indicated SCAN CRITERIA MET
[2024-03-06 19:14] LABS: Differential Comment SCANNED
== END | disposition home or self-care (01) ==
LOC: MTLAB 16:18
PROVIDERS: PCP Family Medicine; Referring Provider Obstetrics & Gynecology; Visit Provider Obstetrics & Gynecology
DX: O09.93 Supervision of high risk pregnancy, unspecified, third trimester (principal); Z3A.35 35 weeks gestation of pregnancy
CPT/HCPCS: 36415; 85025

== ENCOUNTER → 2024-03-12 | Outpatient (CLI) | payer BC, SELFPAY | END | disposition home or self-care (01) | LOC: LABSPEC 13:59 | PROVIDERS: PCP Family Medicine; Referring Provider Obstetrics & Gynecology; Visit Provider Obstetrics & Gynecology | DX: N89.8 Other specified noninflammatory disorders of vagina (principal) | CPT/HCPCS: 87070; 87205 ==

== ENCOUNTER 2024-03-19 04:28 | Inpatient (IN) | payer BC, SELFPAY ==
[2024-03-19] VITALS (96 sets, daily range): BP systolic 91–172; BP diastolic 50–89; PULSE 67–122; RESP 14–21; TEMP 36.3–37.4; O2SAT 81–100; BMI 39.6
[2024-03-19] MEDS: Lactated Ringers 1,000 ML 999 ML IV (05:15)
[2024-03-19 05:33] LABS: Absolute Lymphocyte Count 1.67 X10^3/uL (0.83-4.51); Absolute Neutrophil Count 7.2 X10^3/uL (2.0-7.7); Basophil# 0.03 X10^3/uL; Basophil% 0.3 % (0-1); Eosinophil# 0.14 X10^3/uL; Eosinophils% 1.4 % (0-5); Hemoglobin 12.1 g/dL (12.0-15.0); Lymphocyte # 1.67 X10^3/ul (0.83-4.51); Lymphocyte % 17.2 % (19-41); Mean Corp Hgb Conc 33.6 g/dL (32-36); Mean Corpuscular Volume 89.3 fL (81-99); Mean Platelet Vol. 12.2 fl (6.2-12.0); Monocyte# 0.56 X10^3/uL; Monocyte% 5.8 % (0-10); NRBC Flagged by Analyzer 0 % (0-5); Neutrophil # 7.23 X10^3/uL (2.7-7.7); Neutrophil % 74.6 % (47-70); POSITIVE COUNT YES; RBC Distribution Width CV 13.4 % (11.6-14.6); RBC Distribution Width SD 43.7 fl (35.1-43.9); Red Blood Count 4.03 M/mm3 (4.2-5.4); White Blood Count 9.7 K/mm3 (4.4-11.0)
--- NOTE | 2024-03-19 05:48 | HP.PCM.OB_ITS ---
HPI - General General Date of Admission: 03/19/24 HPI Narrative LAURA FERNANDEZ, is a 33 F who presents in active labor with regular contractions, mildly elevated blood pressures so labs were drawn. Patient denies any vaginal bleeding or loss of fluid admits good movement. Maternal Data Information RAMSES Calculator Estimated Delivery Date Method Current WG Current Estimate 03/26/24 LMP (Certain) 39w 0d Other Estimates 03/20/24 Ultrasound #1 39w 6d PFSH PFSH Medical History (Updated 03/19/24 @ 05:[address] Piedad Moreno MD) Superficial varicosities Pre-eclampsia Galactorrhea Allergic dermatitis Trochanteric bursitis of right hip Lymphocytic colitis Non-smoker History of steroid therapy Constipation Umbilical hernia Chronic constipation Dichorionic diamniotic twin gestation Anal fissure External hemorrhoids (spontaneous vaginal delivery) Home Medications ?Medication ?Instructions ?Recorded ?Last Taken ?Type vitamin B12 1 mg-folic acid 0.8 mg 1 tab PO DAILY 02/23/21 03/18/24 History tablet docusate sodium 100 mg capsule 100 mg PO BID 08/18/23 03/18/24 History ferrous sulfate 325 mg (65 mg 325 mg PO DAILY 08/18/23 03/18/24 History iron) tablet multivitamin no.47-iron fum 27 1 cap PO DAILY 08/18/23 Unknown History mg-folate no.1 1 mg-dha 300 mg capsule (PNV-DHA) polyethylene glycol 3350 17 4 g PO DAILY PRN const 08/18/23 Unknown History gram/dose oral powder (Miralax) magnesium 200 mg tablet 200 mg PO DAILY 01/30/24 03/18/24 History Allergy/AdvReac Type Severity Reaction Status Date / Time No Known Allergies Allergy Verified 03/12/24 09:49 Family History Mother Arthritis Hypertension Father Arthritis Hypertension Aunt Breast cancer Paternal Grandfather Heart disease Kidney disease Brother Hypertension Sister Hypertension Grandmother Breast cancer Paternal Surgical History History of hip surgery Hx of umbilical hernia repair Hx of dilation and curettage History of hemorrhoidectomy (~05/2018) History of tonsillectomy Social History adopted: No household members: spouse and children number of children: 3 current occupational status: employed 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 [employer] current occupational exposures/hazards: No pets and animals: Yes (Avoid litterbox) pets and animals: cat(s) and dog(s) history of recent travel: No sexually active: Yes Smoking Status: Never smoker alcohol intake: current alcohol intake frequency: a few times a month details: not while substance use type: does not use well-balanced diet: about half the time caffeine: Yes Type: carbonated beverages Number of servings: 2 eating out: 1-3 times/week during the past year weight has: increased > 10 lbs what type of physical activity do you participate in: none suraj/hindu: Cheondoism seatbelt use: always do you feel safe at home: Yes additional social history: [employer] History 4 Elective abortions Hx Para 2 Spontaneous abortions 1 Hx # Term Pregnancies Ectopic pregnancies Hx # Pregnancies Multiple births 1 # of living children 3 Past Pregnancies Del. Date Name GA/Weeks Outcome Route Bth Weight Gen Labor Lgth Anesthesia Del Locatn Provider FOB 04/05/18 Binsen 41 live - full term 9#7oz Male [address] [facility] [employer] [facility] Shey Madsen Alvarez 11/01/19 10 spontaneous 08/10/20 Lakisha 37 live - full term 5#14oz Female [address] [facility] Marin Pino 08/10/20 Abran 37 live - full term 6#4oz Male [address] [facility] [place] Pino Delivery Date: 04/05/18 Last Updated by: Merna Bermeo IOL post dates Delivery Date: 11/01/19 Last Updated by: Merna Bermeo D&C, blighted Ovum Delivery Date: 08/10/20 Last Updated by: Merna Bermeo IOL @ 37wks Twins, Gestational HTN/pre-e Delivery Date: 08/10/20 Last Updated by: Merna Bermeo IOL @ 37 weeks twins, gestational HTN, pre e Visit Details Expected Delivery Route/Plan Labor Preferences- CB/BF classes: [] labor support person: [] labor intervention preferences: [] pain management options preferred: [] cut cord/dad catch: [] : [] PP control planned: [] discussed possible routes of delivery and associated risks: [] special requests: [] Plans Covid status: [] Flu vaccine: [] Tdap vaccine: given Rhogam: [na LARC form signed: yes movement and labor precautions reviewed. Problem list reviewed and updated with the most current plan of care details and appropriate orders placed. Relevant counseling for the gestational age provided. Continue routine care and follow up unless otherwise noted in visit notes/problem list details OB Flowsheet Initial Weight: Not Recorded Date -?-?-?--?-?-?-?-?-?-?-?-?- EGA Weight BP Urine Prot -?-?-?-?-?-?-?-?-?-?-?-?- Glucose FHR FuHt Pres Dilation -?-?-?-?-?-?-?-?-?-?-?-?- Effaced St Visit Note 08/21/23 -?-?-?-?-?-?-?-?-?-?-?-?- 8w 6d 174 lb 126/84 -?-?-?-?-?-?-?-?-?-?-?-?- 168 -?-?-?-?-?-?-?-?-?-?-?-?- JV- CRL off by 6 days. patient desires NIPT. has h/o twin last that ended with gestational hypertension and induction at 37 weeks. all vaginal deliveries. 09/19/23 -?-?-?-?-?-?-?-?-?-?-?-?- 13w 0d 182 lb 6 oz 141/80 Nega tive -?-?-?-?-?-?-?-?-?-?-?-?- Negative -?-?-?-?-?-?-?-?-?-?-?-?- kw-no vb/christie priest. US ordered. US and movement on handheld US. 10/20/23 -?-?-?-?-?-?-?-?-?-?-?-?- 17w 3d 190 lb 155/87 139/80 Negative -?-?-?-?-?-?-?-?-?-?-?-?- Negative 135 -?-?-?-?-?-?-?-?-?-?-?-?- SM- no vb lof cr amping. co irritation vulvar 11/14/23 -?-?--?-?-?-?-?-?-?-?-?-?- 21w 0d 195 lb 121/79 Negative -?-?-?-?-?-?-?-?-?-?-?-?- Negative 145 -?-?-?-?-?-?-?-?-?-?-?-?- JV- pt has elle nued complaint of intermittent vaginal irritation. She thinks she has on/off yeast infections and does not like the creams. She is requesting diflucan. exam today looks benign. vaginitis swab ordered. [facility] recommends monthly growth. 12/13/23 -?-?-?-?-?-?-?-?-?-?-?-?- 25w 1d 199 lb 8 oz 118/70 Nega tive -?-?-?-?-?-?-?-?-?-?-?-?- Negative 137 -?-?-?-?-?-?-?-?-?-?-?-?- MH-No VB, LOF. G ood FM. Feels like varicosities in vaginal area/pressure: enc supportive shoes, michelle band, chiro care. 01/15/24 -?-?-?-?-?-?-?-?-?-?-?-?- 29w 6d 207 lb 127/84 Trace -?-?-?-?-?-?-?-?-?-?-?-?- Negative 135 31 0 -?-?-?-?-?-?-?-?-?-?-?-?- JV- pt having so me round ligament pain. sending urine for culture. recommend tylenol, fluids, magnesium and will call with results of urine culture. 01/30/24 -?-?-?-?-?-?-?-?-?-?-?-?- 32w 0d 211 lb 114/77 Negative -?-?-?-?-?-?-?-?-?-?-?-?- Negative 140 -?-?-?-?-?-?-?-?-?-?-?-?- Sm- no vb lof go od fm no regular ctx 02/13/24 -?-?-?-?-?-?-?-?-?-?-?-?- 34w 0d 212 lb 2 oz 133/81 Nega tive -?-?-?-?-?-?-?-?-?-?-?-?- Negative 141 Transverse 0 -?-?-?-?-?-?-?-?-?-?-?-?- JV- rpt bp 121/8 2. c/o pressure and discomfort. likely due to malpresentation. will re-evaluate next visit. 02/26/24 -?-?-?-?-?-?-?-?-?-?-?-?- 35w 6d 215 lb 8 oz 136/77 Nega tive -?--?-?-?-?-?-?-?-?-?-?-?- Negative 153 35 Cephalic 0 .5 -?-?-?-?-?-?-?-?-?-?-?-?- JV- pt is still having intermittent floaters and intermittent headaches. will repeat pih labs. bp is normal. vtx on bedside scan. 03/04/24 -?-?-?-?-?-?-?-?-?-?-?-?- 36w 6d 210 lb 138/87 Trace -?-?-?-?-?-?-?-?-?-?-?-?- Negative 140 37 Cephalic 1 -?-?-?-?-?-?-?-?-?-?-?-?- -3 KW-no vb . reports some increased vaginal discharge and contractions. ROM + today. 03/12/24 -?-?-?-?-?-?-?-?-?-?-?-?- 38w 0d 215 lb 123/67 Negative -?-?-?-?-?-?-?-?-?-?-?-?- Negative 145 38 Cephalic 1 -?-?-?-?-?-?-?-?-?-?-?-?- 30 -3 JV- pt has some BV on exam. metrogel sent to pharmacy. IOL set up for next week. wants doc only for delivery. NST FHR Rate Baby A Baseline: 130 Variability:: Moderate Accelerations:: 15 x 15 Decelerations:: None NST Reactive:: Yes FHR Category:: Category I Uterine Activity:: irregular ROS Constitutional Constitutional: Reports systems reviewed and no addt'l complaints, except as documented Eyes Eyes: Denies change in vision ENT HEENT: Reports systems reviewed and no addt'l complaints, except as documented; Denies headache(s) Cardiovascular Cardiovascular: Reports systems reviewed and no addt'l complaints, except as documented; Denies chest pain or dyspnea Respiratory/Chest Respiratory/Chest: Reports systems reviewed and no addt'l complaints, except as documented Gastrointestinal Gastrointestinal: Reports systems reviewed and no addt'l complaints, except as documented; Denies abdominal pain Genitourinary Genitourinary: Reports systems reviewed and no addt'l complaints, except as documented, contractions Details: present (irregular) and movement Details: present; Denies dysuria or genital lesions Musculoskeletal Musculoskeletal: Reports systems reviewed and no addt'l complaints, except as documented Neurologic Neurologic: Reports systems reviewed and no addt'l complaints, except as documented Endocrine Endocrinology: Reports systems reviewed and no addt'l complaints, except as documented Vital Signs Vital Signs Vital Signs: 03/19/24 04:09 03/19/24 04:09 03/19/24 04:09 Temperature Temperature Source Temporal Pulse Rate 94 Respiratory Rate Blood Pressure 145/82 H BP Systolic 145 BP Diastolic 82 Pulse Ox 03/19/24 04:09 03/19/24 04:09 03/19/24 04:10 Temperature 97.3 F L Temperature Source Pulse Rate 96 Respiratory Rate 14 Blood Pressure BP Systolic BP Diastolic Pulse Ox 03/19/24 04:10 03/19/24 04:12 03/19/24 04:12 Temperature Temperature Source Pulse Rate 80 Respiratory Rate Blood Pressure 150/79 H BP Systolic 150 BP Diastolic 79 Pulse Ox 99 03/19/24 04:28 03/19/24 04:28 03/19/24 05:47 Temperature Temperature Source Pulse Rate 86 Respiratory Rate Blood Pressure 141/80 H 134/80 H BP Systolic 141 134 BP Diastolic 80 80 Pulse Ox 03/19/24 05:47 Temperature Temperature Source Pulse Rate 79 Respiratory Rate Blood Pressure BP Systolic BP Diastolic Pulse Ox Weight Weight: 216 lb 14.958 oz Body Mass Index (BMI) 39.6 Physical Exam Const alert, oriented x3, no apparent distress and healthy appearing HEENT normocephalic and moist oral mucous membranes Head and Scalp: atraumatic Neck full ROM, no lymphadenopathy, supple and thyroid normal General: trachea midline Lymph Lymphatic: no lymphadenopathy noted Chest inspection of chest normal Resp normal respiratory effort Cardio regular rate GI normal to inspection, nondistended, normoactive bowel sounds, soft to palpation and non-tender Inspection: gravid external exam normal Manual OB Exam: estimated gestational size appropriate, presentation cephalic, dilated, effaced and station Extremity normal to inspection General Extremity: Negative for edema Skin no rashes or lesions noted Neuro no focal motor deficits and deep tendon reflexes 2+ bilaterally Motor Exam: strength 5/5 throughout and clonus absent Psych mental status grossly normal Labs Labs Labs: Blood Type A POSITIVE Antibody Screen NEGATIVE Hct 36.0 % (37-47) L Hgb 12.1 g/dL (12.0-15.0) Syphilis Total Ab Non-reactive VZV IgG Antibody 1125 index (Immune >165) Rubella IgG Antibody Reactive (Nonreactive) Hep Bs Antigen Non-Reactive (Nonreactive) Hepatitis C Antibody Non-Reactive (Nonreactive) Hepatitis C Ab (EIA) 0.2 s/co ratio (0.0-0.9) Chlamydia DNA (GUCCI) Negative (Negative) N.gonorrhoeae DNA (GUCCI) Negative (Negative) HIV 1&2 Antibody Non-Reactive (Nonreactive) Glucose 1 Hr 50 gm 134 mg/dL (70-140) Gest Glucose Tolerance MG/DL Group B Strep DNA Negative (Negative) Rhogam given: No Miscellaneous Test Assessment & Plan (1) : QUALIFIERS: Weeks of gestation: 38 weeks Qualified Code(s): Z3A.38 - 38 weeks gestation of COMMENT: nl anatomy, NIPT low risk. DOC ONLY delivery (2) Supervision of high-risk : QUALIFIERS: Trimester: second trimester Qualified Code(s): O09.92 - Supervision of high risk , unspecified, second trimester COMMENT: PRR, , RAMSES 03/26/24,[facility] Lakisha Martin, Gem Alvarez (3) Hx of pre-eclampsia in prior , currently : COMMENT: Baseline labs ordered with NOB labs (4) AMA (advanced maternal age) multigravida 35+: QUALIFIERS: Trimester: second trimester Qualified Code(s): O09.522 - Supervision of elderly multigravida, second trimester COMMENT: nipt low risk. plan q 4 week growth US per MFM 38%, 63% (5) Hemorrhoids: QUALIFIERS: Hemorrhoid type: unspecified Qualified Code(s): K64.9 - Unspecified hemorrhoids (6) Lymphocytic colitis: PLAN: Plan Patient presents IAL, plan expectant management for , pitocin/AROM PRN if needed. Pain management: plans epidural. GBS neg. Management of any complications: ama elevated bps, labs drawn I have reviewed the [facility] and made any clinically relevant updates.
[2024-03-19 05:55] LABS: Protein, Urine (Random) 25.8 mg/dL (<11.9); Protein:Creat Ratio 316 mg/g CRE (0-200)
[2024-03-19 05:55] LABS: AST(SGOT) 8 U/L (15-37); Alanine Aminotransfer ALT/SGPT 9 U/L (13-56); Creatinine, Serum 0.54 mg/dL (0.55-1.02); EST Glomerular Filtration Rate 137 mL/min (>60); Est Glom Filt Rate - Afr Amer 166 mL/min (>60); Estimated Creatinine Clearance 159.36 ml/min; Uric Acid 4.5 mg/dL (2.6-6.0)
[2024-03-19] MEDS: Lactated Ringers 1,000 ML 50 ML IV (06:12)
[2024-03-19 06:15] LABS: Platelet Estimate ADEQUATE (ADEQ); Syphilis Antibodies Non-reactive
[2024-03-19] MEDS: fentaNYL-bupivacaine (epidural) 100 ML BAG EPIDURAL ×3 (06:25→10:44)
[2024-03-19] MEDS: LACTATED RINGERS 500 ML 999 ML IV (07:12)
[2024-03-19] MEDS: Ondansetron 4 MG/2 ML Vial IV ×3 (07:29→15:26)
[2024-03-19] MEDS: Oxytocin 15 Units/NS 250ml 15 UNITS/250 ML IV.SOLN 2 UNITS IV (10:22)
[2024-03-19] MEDS: Lactated Ringers 1,000 ML 200 ML IV (12:21)
[2024-03-19] MEDS: Acetaminophen 500 MG Tablet PO (13:41)
--- NOTE | 2024-03-19 14:34 | OP.PCM_ITS ---
Assessment & Plan (1) Gestational hypertension: (2) AMA (advanced maternal age) multigravida 35+: QUALIFIERS: Trimester: second trimester Qualified Code(s): O09.522 - Supervision of elderly multigravida, second trimester COMMENT: nipt low risk. plan q 4 week growth US per MFM 38%, 63% (3) Hx of pre-eclampsia in prior , currently : COMMENT: Baseline labs ordered with NOB labs (4) Supervision of high-risk : QUALIFIERS: Trimester: second trimester Qualified Code(s): O09.92 - Supervision of high risk , unspecified, second trimester COMMENT: PRR, , RAMSES 03/26/24,surprise Lakisha Borrego, Abran Alvarez (5) : QUALIFIERS: Weeks of gestation: 38 weeks Qualified Code(s): Z3A.38 - 38 weeks gestation of COMMENT: nl anatomy, NIPT low risk. DOC ONLY delivery (6) Lymphocytic colitis: Maternal Data Information RAMSES Calculator Estimated Delivery Date Method Current WG Current Estimate 03/26/24 LMP (Certain) 39w 0d Other Estimates 03/20/24 Ultrasound #1 39w 6d Final RAMSES: 03/26/24 Final RAMSES Source: LMP Gestational age: 39 weeks 0 days Vaginal Delivery Maternal Presentation Maternal Presentation: Active Labor Maternal Presentation: early active labor and pre-eclampsia Type of Induction: Pitocin and Amniotomy Operative Information Date of Procedure: 03/19/24 Pre-Operative Diagnosis: 33 y/o @ 39 weeks, early labor, pre-eclampsia Post-Operative Diagnosis: 33 y/o @ 39 weeks, early labor, pre-eclampsia Surgery / Procedure Performed: Spontaneous Vaginal Delivery Type of Anesthesia: Epidural Estimated Blood Loss: 100cc Time of Delivery: 14:04 Findings Description of Procedure: Patient began pushing and delivered the head in the STEPHANIE presentation. The head was delivered atraumatically . The anterior and posterior shoulders delivered without complication followed by the rest of the and the was placed on the maternal abdomen. Delayed cord clamping was employed for approximately 60 seconds. Cord was clamped and cut and gentle traction was applied to the cord and the placenta delivered spontaneously immediately following it was noted to be intact with three-vessel cord. The perineum and vagina were inspected and noted to have no laceration. There was noted to be a small vaginal inclusion cyst. This was cleansed with Betadine then incised with a scalpel. A moderate burst of purulent material expelled. Hemostasis was achieved by holding pressure on the puncture site. EBL was 100 cc. Patient and tolerated delivery well. baby girl Elaine Presentation: Vertex Amniotic Membrane Rupture Type: Artificial Time of Membrane Rupture: 0600 Amniotic Fluid Description: Clear Placental Delivery Description: Spontaneous Placenta Disposition: [facility] Cord Vessel Description: 3 Vessels Cord Entanglement: None Infant A Gender: Female (1 minute): 9 (5 minute): 9 Delayed Cord Clamping: Yes Post Vaginal Delivery Medications Given After Delivery: IV Pitocin Episiotomy Description: None Laceration: None Complication Complications: None Multi Select Codes Urinary/Genital Urinary/Genital CPT Codes: 36906 Vaginal Delivery [facility]
[2024-03-19] MEDS: Oxytocin 15 Units/NS 250ml 15 UNITS/250 ML IV.SOLN 83 UNITS IV (14:39)
--- NOTE | 2024-03-19 14:43 | DCINST_ITS ---
Discharge Instructions Diet Discharge Diet: No restrictions Activity Discharge Activity: Return to Normal Activity, May Not Drive (while taking narcotic pain medications.) and May Shower May resume sexual activity in: 4-6 weeks Dressing / Incision Call your doctor if your incision/area has: Continuous Slow Oozing, Sudden Increased Bleeding, Increased Pain/ Swelling, Increased Redness and Foul Smelling Discharge Follow Up Care Please Follow Up With: Reina Rashid DO When: Call [phone] to make an appointment with your doctor in 6 weeks. If you had elevated blood pressure or 4th degree laceration, you will need to be seen in 2 weeks. Test Results: Test results from this visit will be discussed in further detail at your follow- up appointment, if applicable. Discharge Plan Admission Admit Date/Time: 03/19/24 04:28 Attending Provider: Reina Rashid Primary Care Provider: Yonas Ya Discharge Orders/Prescriptions Prescriptions: No Action PNV-DHA 27 mg iron-1 mg -300 mg capsule 1 cap PO DAILY ferrous sulfate 325 mg (65 mg iron) tablet 325 mg PO DAILY docusate sodium 100 mg capsule 100 mg PO BID polyethylene glycol 3350 [Miralax] 17 gram/dose powder 4 g PO DAILY PRN (Reason: const) magnesium 200 mg tablet 200 mg PO DAILY vitamin Z20-wbivf acid 1-0.8 mg Tablet 1 tab PO DAILY Referrals / Follow Up: Yonas Ya DO [Primary Care Provider] -
[2024-03-19] MEDS: 0.9% Saline Lock 10 ML Syringe IV (17:39)
[2024-03-19] MEDS: Ibuprofen 600 MG Tablet PO (22:51)
[2024-03-19] MEDS: Acetaminophen 500 MG Tablet 1000 MG PO (22:52)
[2024-03-20] VITALS (8 sets, daily range): BP systolic 118–135; BP diastolic 56–83; PULSE 67–85; RESP 16–18; TEMP 36.7–36.9; O2SAT 98–99
--- NOTE | 2024-03-20 07:52 | PN.OBGYN_ITS ---
Subjective Subjective Patient doing well without complaints. Tolerating PO. Ambulating and voiding without difficulty. Feeding well. Denies chest pain, shortness of breath, calf pain/swelling, fevers, chills, lightheadedness. Objective Data Objective Data Vital Signs: Vital Signs Temp Pulse Resp BP Pulse Ox O2 Del Method 98.2 F 75 16 135/83 H 99 Room Air 03/20/24 04:59 03/20/24 07:45 03/20/24 04:59 03/20/24 07:42 03/20/24 07:45 03/20/24 04:59 Oxygen Delivery Method Room Air Weight: 216 lb 14.958 oz Body Mass Index (BMI) 39.6 Intake & Output: Intake and Output for Last 24 Hours 03/18/24 03/19/24 03/20/24 23:59 23:59 23:59 Intake Total 3238.96 / 3238.96 Output Total 2300 / 2300 Balance 938.96 / 938.96 Lab / Micro Data 03/19/24 05:15 03/19/24 05:15 Physical Exam Const alert and oriented x3 HEENT normocephalic Eyes PERRL Neck full ROM Resp normal respiratory effort GI soft to palpation GI Narrative: FF below U Assessment & Plan (1) Spontaneous vaginal delivery: COMMENT: GERMAINE Henry (2) Gestational hypertension: QUALIFIERS: Trimester: unspecified trimester Qualified Code(s): O 13.9 - Gestational [-induced] hypertension without significant proteinuria, unspecified trimester COMMENT: resolved pp PLAN: Plan s/p PPD # 1 1. routine post delivery care 2. breast feeding- support given 3. rh positive 4. rubella immune 5. home today
[2024-03-20] MEDS: Senna/Docusate Sodium 1 Tablet PO (09:51)
[2024-03-20] MEDS: Ibuprofen 600 MG Tablet PO (09:52)
[2024-03-20] MEDS: Magnesium Chloride 64 MG Delay Rel.Tablet PO (09:54)
[2024-03-20] MEDS: Ferrous Sulfate 325 MG Tablet PO (09:54)
== END 2024-03-20 16:40 | disposition home or self-care (01) | DRG 806 ==
LOC: WPOUT 04:31 → WP 05:23
PROVIDERS: Admitting Provider Obstetrics & Gynecology; PCP Family Medicine; Referring Provider Obstetrics & Gynecology; Visit Provider Obstetrics & Gynecology
DX: O10.02 Pre-existing essential hypertension complicating childbirth (principal); Z37.0 Single live birth; O22.43 Hemorrhoids in pregnancy, third trimester; O11.4 Pre-existing hypertension with pre-eclampsia, complicating childbirth; K52.832 Lymphocytic colitis; O99.62 Diseases of the digestive system complicating childbirth; Z3A.39 39 weeks gestation of pregnancy
CPT/HCPCS: 59025; 59050; 82565; 82570; 84156; 84450; 84460; 84550; 85025; 86780; 86850; 86900; 86901; J7120; A4216; J2405

== ENCOUNTER → 2024-05-10 | Outpatient (CLI) | payer BC, SELFPAY ==
[2024-05-10 10:52] LABS: Absolute Lymphocyte Count 1.29 X10^3/uL (0.83-4.51); Absolute Neutrophil Count 2.6 X10^3/uL (2.0-7.7); Basophil# 0.04 X10^3/uL; Basophil% 0.9 % (0-1); Eosinophil# 0.17 X10^3/uL; Eosinophils% 3.8 % (0-5); Hematocrit 39.3 % (37-47); Lymphocyte # 1.29 X10^3/ul (0.83-4.51); Lymphocyte % 29.1 % (19-41); Mean Corp Hgb Conc 33.1 g/dL (32-36); Mean Corpuscular Hgb 29.5 pg (27.0-32.0); Mean Corpuscular Volume 89.1 fL (81-99); Mean Platelet Vol. 9.3 fl (6.2-12.0); Monocyte# 0.32 X10^3/uL; Monocyte% 7.2 % (0-10); NRBC Flagged by Analyzer 0 % (0-5); Neutrophil # 2.58 X10^3/uL (2.7-7.7); Neutrophil % 58.3 % (47-70); Platelet Count 291 K/mm3 (150-450); RBC Distribution Width CV 13.4 % (11.6-14.6); RBC Distribution Width SD 43.7 fl (35.1-43.9); RET-HE 34.1 pg (30-35); Red Blood Count 4.41 M/mm3 (4.2-5.4); Reticulocyte Count 2.28 % (0.5-1.5); White Blood Count 4.4 K/mm3 (4.4-11.0)
[2024-05-10 11:32] LABS: Ferritin 88 ng/mL (8-252); Iron 213 ug/dL (50-170); Iron Binding Capacity,Total 279 ug/dL (250-450); LDH 161 U/L (84-246)
[2024-05-14 12:10] LABS: Albumin 3.9 g/dL (2.9-4.4); Alpha-1-Globulins 0.2 g/dL (0.0-0.4); Alpha-2-Globulins 0.6 g/dL (0.4-1.0); Endomysial Antibody IgA Negative (Negative); Gamma Globulin 0.9 g/dL (0.4-1.8); Haptoglobin 86 mg/dL (33-278); Immunoglobulin A 76 mg/dL (87-352); Immunoglobulin G 922 mg/dL (586-1602); Immunoglobulin M 132 mg/dL (26-217); PROEL- TOTAL PROTEIN 6.5 g/dL (6.0-8.5); t-Transglutaminase IgA <2 U/mL (0-3)
== END | disposition home or self-care (01) ==
LOC: LAB 10:13
PROVIDERS: PCP Family Medicine
DX: D64.9 Anemia, unspecified (principal); K52.832 Lymphocytic colitis; K64.9 Unspecified hemorrhoids
CPT/HCPCS: 36415; 82728; 82784; 83010; 83516; 83540; 83550; 83615; 84165; 85025; 85045; 86255; 86334

== ENCOUNTER 2024-05-27 17:52 | Outpatient (RCR) | payer BC, SELFPAY ==
--- NOTE | 2024-05-27 19:28 | HP.PTEVAL_ITS ---
Patient's Visit Information Visit Information Visit Information: LAURA FERNANDEZ is a 33 year old F referred to Physical Therapy by Dr. Reina Rashid DO with a diagnosis of PELVIC FLOOR WEAKNESS. Date of Evaluation: 05/27/24 Physical Therapist: Estelita Coyne PT, Cert MDT Visit Plan Frequency: 1x/Week Duration: 2-4 Months Plan: PF THERAPY FOR STRENGTHENING, LENGTHENING/RELAXATION AND ENDURANCE TRAINING. URINARY URGE AND FREQUENCY EDUCATION. HEALTHY BLADDER HABIT EDUCATION. TRAINING IN COORDINATION OF PELVIC FLOOR MUSCULATURE WITH HIP AND CORE (TRANSVERSE ABDOMINUS) MUSCULATURE. CORE STRENGTHENING. MICKEY LE STRENGTHENING. TRAINING IN ABDOMINAL CAVITY PRESSURE MGMT WITH ADL'S. POSTURE CORRECTION/STRENGTHENING. HEALTHY BACK EDUCATION. Subjective Subjective: Work/Leisure: REGISTRATION PRN FOR WC 1-2 NIGHTS A WK, 6 TO 8 HR SHIFTS. CURRENTLY ON MATERNITY LEAVE. PLANNING TO RTW APPROX JUN 17 2024. Disability: NO Present symptoms: WITHHOLDING WATER IN VAGINAL REGION AFTER BATH AND SWIMMING. Present since: 2020 Pain Scale: PATIENT DENIES PAIN. Is it getting better, worse or staying the same: STAYING THE SAME Commenced as a result of: OF TWINS - VAGINAL Symptoms at onset: GUSH OF FLUID RUNNING DOWN LEG OCCURRING SOMETIMES RIGHT AFTER BATH AND SOMETIMES OCCURRING THE FOLLOWING MORNING UPON RISING FROM BED. Worse: TAKING A BATH, SWIMMING Better: COUGHING ON THE TOLIET AFTER BATH HELPS 50% OF THE TIME - STARTED DOING THIS 05/10/[address] RASHID AT FOLLOW UP. Disturbed sleep: GETTING UP TO URINATE X 2 AT NIGHT. STATES SHE FEELS SHE COULD SLEEP THROUGH THE NIGHT WITHOUT VOIDING BUT SHE GETS UP TO PUMP FOR THE BABY SO SHE VOIDS WHILE SHE IS UP. Previous history/Previous treatment: HERNIA REPAIR 2020. VAGINAL 2018. TWINS 2020 - VAGINAL. VAGINAL MAR 19 2024 - Varicose veins and a lot of pelvic pressure during but went away a few wks after delivery. Treatment this episode: NO TREATMENT SINCE [address] RASHID INSTRUCTED 05/10/24 Coughing/sneezing/straining: NOT CURRENTLY. How long can you delay the need to urinate: LONG NEEDED TO MAKE IT TO THE BATHROOM IN TIME. Prolapse (Falling out feeling): OCCASSIONALLY WITH MENSES - BLOATED FEELING Frequency of Urination: ABOUT EVERY 2 HOURS WHEN HOME. Fluid intake: 3-5 8oz glasses per day. Ability to stop urine flow: YES - COMPLETELY Ability to initiate urine stream: YES - ALWAYS Dyspareunia: NO Gait: NORMAL Bowel Incontinence: NO Unexplained weight loss: NO Imaging: NO PMH/Recent major surgery: Jun 11 2024 - colonoscopy and hemorrhoid procedure pending. chronic anemia Hx of pre-eclampsia in prior , currently Superficial varicosities Pre-eclampsia Galactorrhea Allergic dermatitis Trochanteric bursitis of right hip Lymphocytic colitis Non-smoker History of steroid therapy Constipation Umbilical hernia Chronic constipation Dichorionic diamniotic twin gestation Anal fissure External hemorrhoids History of hip surgery Hx of umbilical hernia repair Hx of dilation and curettage History of hemorrhoidectomy ~05/2018 History of tonsillectomy Objective Objective: Sitting/Standing Posture: ANTERIOR PELVIC TILT. NO RELEVANT LATERAL SHIFT. VERY SLOUCHED IN SITTING. Active Correction of posture: UNABLE IN STANDING. ABLE TO PARTIALLY CORRECT IN SITTING. DOES NOT MAINTAIN. Other Observations: INDEP GAIT AND TRANSFERS. Sensory deficit: MICKEY LE LIGHT TOUCH SENSATION GROSSLY INTACT AND SYMMETRICAL ROM deficit: MICKEY LE'S WFL Motor deficit: MICKEY LE'S GROSSLY 5/5 EXCEPT HIPS 4/5. PELVIC FLOOR STRENGTH WITH INTERNAL MANUAL VAGINAL TESTING = 3/5 X 6 SEC X 6 WITH INCREASED DIFFICULTY RELAXING PELVIC FLOOR BETWEEN REPS. Reflexes: 2+ MICKEY LE'S. Dural Signs: NEGATIVE MICKEY LE'S. Lumbar mvmt loss: flex - NIL ext - MOD R SG - NIL L SG - NIL PATIENT DENIES PAIN WITH LUMBAR ROM TESTING ALL PLANES. Core strength: POOR Palpation: NO PELVIC FLOOR TONE, TRIGGER POINTS OR TENDERNESS WITH INTERNAL, MANUAL VAGINAL PALPATION. FUNCTIONAL SCREEN: Incontinence Impact Questionnaire Score: 0 Urogenital Distress Inventory Score: 3 OTHER: PATIENT BROUGHT HER SISTER WITH HER. PATIENT IS PLEASANT AND COOPERATIVE TO WORK WITH. SHE TOLERATED THE EXAM WELL. Goals Goal 1:: PATIENT WILL REPORT AT LEAST 80% IMPROVEMENT IN LEAKAGE OF WATER AFTER BATH AND SWIMMING Goal Time Frame: 8-12 Weeks Goal 2:: PATIENT WILL DEMONSTRATE/COMMUNICATE 10 CONSISTENT AND CONSECUTIVE 10 SECOND PELVIC FLOOR MUSCLE CONTRACTIONS TO DEMONSTRATE IMPROVED PELVIC FLOOR ENDURANCE. Goal Time Frame: 8-12 Weeks Goal 3:: NORMALIZE VOIDING FREQUENCEY TO EVERY 3-4 HOURS WITH RECOMMENDED FLUID INTAKE Goal Time Frame: 4-6 Weeks Goal 4:: PATIENT WILL DEMONSTRATE IMPROVED POSTURAL AWARENESS/STRENGTH 80% OF THE TIME DURING THERAPY SESSIONS. Goal Time Frame: 8-12 Weeks Goal 5:: PATIENT WILL BE INDEP WITH A HEP/HOME INSTRUCTIONS FOR CONTINUED IMPROVEMENT ONCE FORMAL PHYSICAL THERAPY CONCLUDES. Goal Time Frame: 8-12 Weeks Rehabilitation Potential Physical Therapy Diagnosis: CORE, POSTURAL AND PELVIC FLOOR WEAKNESS. Rehabilitation Potential: Good Anticipated Interventions Patient/Client Instruction: Educate patient on: Condition, Plan of Care and Ris k Factors For the Purpose of:: To improve self management Therapeutic Exercise to Include: Strength training, Endurance training, Body mechanics, Postural training, Neuromotor development and Relaxation training For the Purpose of:: To improve muscle performance and motor function, To improve ability of physical actions for home/community/work/leisure and To improve self management Text: Thank you for the opportunity to evaluate your patient. For Medicare and Medicare HMO plans, please review the plan of care and approve it. It will need to be FAXED BACK to us at [phone] for Medicare purposes. For Medicare only, by signing this I certify the plan of care. Please let me know if there are questions or concerns regarding this plan of care. Physician Signature: Date:
--- NOTE | 2024-10-06 20:45 | HP.PT.NRP ---
Patient Information Patient Information: LAURA FERNANDEZ was seen in my office for initial evaluation on 05/27/24. The following Plan of Care was established for this patient: POC Established Initial Frequency: 1x/Week Initial Duration: 2-4 Months Anticipated Interventions Patient/Client Instruction: Educate patient on: Condition, Plan of Care and Risk Factors For the Purpose of:: To improve self management Therapeutic Exercise to Include: Strength training, Endurance training, Body mechanics, Postural training, Neuromotor development and Relaxation training For the Purpose of:: To improve muscle performance and motor function, To improve ability of physical actions for home/community/work/leisure and To improve self management Last Seen Last Seen: This patient was last seen in our office 05/27/25. Pertinent comments regarding their Physical therapy will appear below: It has been my pleasure to see this patient for a total of 1 visits. This patient has not returned to Physical Therapy for more visits and is appropriate to return to MD for further follow-up as needed. At this point I will be discontinuing this patient from physical therapy. I would be happy to see this patient again in the future if found appropriate by the physician. Thank you! Estelita Coyne, PT, Cert MDT
== END 2024-05-27 19:00 | disposition home or self-care (01) ==
LOC: PT 17:52
PROVIDERS: PCP Family Medicine; Referring Provider Obstetrics & Gynecology; Visit Provider Obstetrics & Gynecology
DX: N81.89 Other female genital prolapse (principal)
CPT/HCPCS: 97162; 97530

== ENCOUNTER 2024-06-11 10:54 | Day surgery (SDC) | payer BC, SELFPAY ==
[2024-06-11] VITALS (9 sets, daily range): BP systolic 114–138; BP diastolic 67–94; PULSE 67–84; RESP 14–16; TEMP 36.2–36.7; O2SAT 97–100; BMI 34.7
[2024-06-11 11:22] LABS: Internal QC Validated? YES +Cl - CLEAR BKGD; Pregnancy, Urine Negative Negative
--- NOTE | 2024-06-11 11:39 | PCM.PRE.AN2 ---
ASA Classification* ASA Classification ASA Classification: 2 Assessment & Plan Anesthesia* Anesthesia Assessment Anesthesia Assessment: Discussed sedation and/or anesthesia options, risks, benefits, and alternatives with patient/parents/legal guardian/POA. Questions invited. The patient/parents/legal guardian/POA seems to understand and agrees to proceed with anesthesia plan. Reviewed the physical assessment, medical history, allergy history and patient home medications list prior to surgery/procedure/anesthetic and documented any changes. Performed airway and anesthesia risk assessments. Anesthesia Type Anesthesia Type: MAC History Source History Obtained from:: Patient and Chart Anesthesia Focused Assessment* Temperature: 98.1 F Pulse Rate: 84 Blood Pressure: 121/84 Respiratory Rate: 16 Pulse Ox: 100 Oxygen Delivery Method: Room Air Airway Assessment Mouth opens: >3 cm Mallampati Score: II Teeth Condition: Intact and Lower (Patient has a permanent retainer wire behind her lower teeth.) Neck Range of motion (ROM): Full ROM Focused Labs Anesthesia Preop lab: CBC WBC 4.4 K/mm3 (4.4-11.0) 05/10/24 10:22 RBC 4.41 M/mm3 (4.2-5.4) 05/10/24 10:22 Hgb 13.0 g/dL (12.0-15.0) 05/10/24 10:22 Hct 39.3 % (37-47) 05/10/24 10:22 Plt Count 291 K/mm3 (150-450) 05/10/24 10:22 CHEMISTRY Potassium 3.7 mmol/L (3.5-5.1) 03/05/24 09:19 Sodium 138 mmol/L (136-145) 03/05/24 09:19 Phosphorus 3.6 mg/dL (2.5-4.9) 04/23/21 12:31 BUN 7 mg/dL (7-18) 03/05/24 09:19 Creatinine 0.54 mg/dL (0.55-1.02) L 03/19/24 05:15 Glucose 82 mg/dL (74-106) 03/05/24 09:19 TSH 2.71 uIU/mL (0.358-3.74) 02/13/20 11:49 COAG PT 12.7 SECONDS (11.7-14.9) 07/22/20 13:04 Urine Test Negative Negative 06/11/24 11:00 Pre-Assessment Diagnosis/Proposed Procedure Planned Operative Procedure(s): COLONOSCOPY, HEMORROID BANDING Anesthesia History Anesthesia History - quality assurance lead: Anesthesia History - quality assurance lead Hx Hospitalization No 06/04/24 15:15 Any Problems With Anesthesia No 06/04/24 15:15 Cholinesterase deficiency No 06/04/24 15:15 You/Your Family Experience No 06/04/24 15:15 fever (hyperthermia) with Relationship Recent Exposure to Contagious No 06/11/24 11:18 Disease Does patient have nerve No 06/04/24 15:15 stimulator Patient instructed to have device shut off --Does patient have Pacemaker No 06/11/24 11:18 or ICD? When Was Last Pacemaker Check QUESTION #4 FULL TEXT: You/Your Family Experience fever (hyperthermia) with Anesthesia Last Oral Intake Last Oral intake: Last Oral Intake NPO since 07:00 06/11/24 11:18 Meds taken in AM with sips of No 06/11/24 11:18 water? Meds patient instructed to take am of surgery Any additional information?: Yes NPO since: 07:00 (Patient finished her prep at 7 AM this morning.) PONV PONV - quality assurance lead: PONV - quality assurance lead Female Yes 06/04/24 15:15 HX of Motion Sickness No 06/04/24 15:15 HX of N/V After Surgery Yes 06/04/24 15:15 Non-Smoker Yes 06/04/24 15:15 Duration of Surgery greater No 06/04/24 15:15 than 60 minutes Number of Risk Factors 3 06/04/24 15:15 PONV Score Moderate Risk 06/04/24 15:15 Height & Weight Height & Weight: Anesthesia: Height & Weight Height 5 ft 2 in 06/11/24 11:18 Weight: 86 kg 06/11/24 11:18 Body Mass Index (BMI) 34.7 06/11/24 11:18 Respiratory Assessment Respiratory Assessment - quality assurance lead: Respiratory Tract Infection Hx - quality assurance lead Hx Respiratory Tract Infection No 06/04/24 15:15 STOP Sleep Apnea STOP Sleep Apnea - quality assurance lead: STOP Sleep Apnea - quality assurance lead Hx Hypertension No 06/04/24 15:15 Hx Sleep Apnea No 06/04/24 15:15 CPAP No 03/21/24 11:01 BIPAP Do you snore loudly (louder No 06/04/24 15:15 than talking or can be heard Do you often feel tired/ No 06/04/24 15:15 fatigued/ sleepy during daytime? Has anyone observed you stop No 06/04/24 15:15 breathing during sleep? STOP Results Negative 06/04/24 15:15 QUESTION #5 FULL TEXT : Do you snore loudly (louder than talking or can be heard through closed doors)? Tobacco Use History Tobacco Use History - quality assurance lead: Tobacco Use History - quality assurance lead Tobacco Use Smoking Status Never smoker 06/04/24 15:15 Hx Tobacco Use No 06/04/24 15:15 Years Smoking Packs Smoked per Day Smoking Cessation Date was within the last 15 years Hx Smoking Cessation Date Hx Smoking Cessation Counseling Hematologic Medial History Hematologic Hx - quality assurance lead: Hematologic Medical Hx - sec reporting consultant Hx of Blood Transfusion No 06/04/24 15:15 Hx of Transfusion in last 3 No 06/04/24 15:15 Months Date of Last Transfusion (if within last 3 months) Ever experience any problems No 06/04/24 15:15 with transfusion(s)? Specify any problems Hx of Preganancy in last 3 No 06/04/24 15:15 Months Nurse Filling Out Transfusion [email or web address] 06/04/24 15:15 & Questions: Date: 06/04/24 06/04/24 15:15 Time: 15:19 06/04/24 15:15 Patient unable to answer at this time (ie. confused, unrespo /Reproduction History /Reproductive History - quality assurance lead: /Reproductive Hx- quality assurance lead Hx Now No 06/04/24 15:15 Gestational Age (in weeks): EDC: Hx Hx Para Hx Section SAB Yes 06/04/24 15:15 PFSH Medical History Hx of pre-eclampsia in prior , currently Superficial varicosities Pre-eclampsia Galactorrhea Allergic dermatitis Trochanteric bursitis of right hip Lymphocytic colitis Non-smoker History of steroid therapy Constipation Umbilical hernia Chronic constipation Dichorionic diamniotic twin gestation Anal fissure External hemorrhoids Home Medications ?Medication ?Instructions ?Recorded ?Last Taken ?Type ferrous sulfate 325 mg (65 mg 325 mg PO DAILY 08/18/23 06/04/24 History iron) tablet multivitamin no.47-iron fum 27 1 cap PO DAILY 08/18/23 Unknown History mg-folate no.1 1 mg-dha 300 mg capsule (PNV-DHA) nystatin 100,000 unit/gram topical 1 applic topical BID #30 grams 05/10/24 Unknown Rx cream polyethylene glycol 3350 17 4 g PO ONCE 05/10/24 Unknown History gram/dose oral powder (Miralax) fluconazole 150 mg tablet 150 mg PO DAILY PRN YEAST 06/04/24 Unknown History lubiprostone 24 mcg capsule 24 mcg PO DAILY 06/04/24 Unknown History Allergy/AdvReac Type Severity Reaction Status Date / Time No Known Allergies Allergy Verified 06/11/24 11:17 Family History Mother Arthritis Hypertension Father Arthritis Hypertension Aunt Breast cancer Paternal Grandfather Heart disease Kidney disease Brother Hypertension Sister Hypertension Grandmother Breast cancer Paternal Surgical History History of hip surgery Hx of umbilical hernia repair Hx of dilation and curettage History of hemorrhoidectomy (~05/2018) History of tonsillectomy Social History adopted: No household members: spouse and children number of children: 4 current occupational status: employed 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 current occupational exposures/hazards: No pets and animals: Yes (Avoid litterbox) pets and animals: cat(s) and dog(s) history of recent travel: No sexually active: Yes Smoking Status: Never smoker alcohol intake: current alcohol intake frequency: a few times a month details: not while substance use type: does not use well-balanced diet: about half the time caffeine: Yes Type: carbonated beverages Number of servings: 2 eating out: 1-3 times/week during the past year weight has: increased > 10 lbs what type of physical activity do you participate in: none suraj/sabianist: [employer]ology seatbelt use: always do you feel safe at home: Yes additional social history: Alvarez- [place] [employer] (Anesthesia) ROS Narrative System reviewed and no additional complaints, except as documented.
--- NOTE | 2024-06-11 12:26 | HP.PCM_ITS ---
History and Physical Date of Admission: 06/11/24 Chief Complaint: hemorrhoid banding Details: LAURA FERNANDEZ, is a 33 F who presents to the office today for FU with complaints of bleeding and bothersome internal hemorrhoids and constipation alternating with diarrhea. She is 4 weeks . She reports at least one of her hemorrhoids protrudes through her anal sphincter during a BM and she must push it back inside for comfort after cleaning herself. She denies seeing a large amount of blood, but does see hematochezia. She states that she's taking 1-2 doses of MIralax daily with inconsistent results, along with Dulcolax. She reports that occasionally she will experience urgency with diarrhea immediately after eating a dinner at a restaurant about once a month, but does not relate it to specific food type ingestion. She requests hemorrhoid banding and a colonoscopy to investigate her prior diagnosis of lymphocytic colitis from a 2020 colonoscopy. She strongly prefers to not have hemorrhoidectomy due to the complications of anal fissuring from previous event. ROS Const Constitutional: No chills, fatigue, fever(s) or weight change Eyes Eyes: No change in vision ENT ENT: No abnormal hearing or difficulty swallowing Resp Respiratory: No cough Cardio Cardiology: No chest pain at rest, chest pain with exertion or leg pain with exertion Gastro GI: Positive for constipation and heartburn; No abdominal pain, belching, bloating, change in bowel habits, change in stool character, coffee ground emesis, cramping, diarrhea, difficulty swallowing, feeling full early, excessive flatus, incontinent of stools, Vomiting blood/hematemesis, Blood in stool, loose stools, Black,tarry stools, nausea/dyspepsia, pain with swallowing, vomiting or other Genitourinary-Female: No difficulty urinating Musc Musculoskeletal: Positive for leg pain at night; No abnormal gait, joint pain or leg pain with exertion Skin Skin: No yellowing of the eye or itchy eyes Neuro Neurology: No abnormal gait or abnormal hearing Psych Psychiatric: No anxiety and No depression Endo Endocrine: No fatigue or weight change Aller/Imm Allergy/Immunologic: No food intolerance or itchy eyes Nestor/Lymp Hematologic/Lymphatic: No easy bleeding or easy bruising Exam Const General: cooperative, healthy appearing, comfortable and no acute distress Nutritional Appearance: overweight Orientation: alert HENND Head: normal to inspection Ears: hearing grossly normal bilaterally Nose: external nose normal Face and sinus: normal facial exam and face symmetric Eyes General: appearance normal, both eyes and all related structures Sclera: sclerae normal Neck Neck: normal visual inspection and full ROM Neck mass: No Chest Chest palpation & inspection: normal inspection of the chest Resp Effort & Inspection: normal respiratory effort, able to speak in complete sentences and symmetric chest movement GI Inspection: distended and obesity Auscultation: normal bowel sounds Palpation: soft Skin General: no rashes or lesions noted Neuro General: patient alert, patient awake, patient oriented x3 and moves all extremities Cognition: normal cognition Speech: speech normal Gait: normal gait Extrem General: normal to inspection and full ROM Psych Appearance: well kempt Mental Status: mental status grossly normal Mood: congruent mood Affect: normal affect Speech and Movement: speech and movement normal Attitude: cooperative Thought Process: normal Assessment and Plan Assessment and Plan (1) Hemorrhoids: Status: Acute Qualifiers: Hemorrhoid type: unspecified Qualified Code(s): K64.9 - Unspecified hemorrhoids Plan: LAURA FERNANDEZ, is a 33 F who presents to the office today for FU with complaints of bleeding and bothersome internal hemorrhoids and constipation alternating with diarrhea. * blood to investigate Thalassemia and Celiac disease, chronic anemia despite iron replacement * restart lubiprostone 24mcg PO daily as she's * colonoscopy w/hemorrhoid banding * call with results * office follow-up 3 months(2) Chronic anemia: Status: Chronic (3) Lymphocytic colitis: Status: Acute Orders: Orders CBC W/Diff, Automated Today D64.9 - Anemia, unspecified, K52.832 - Lymphocytic colitis, K64.9 - Unspecified hemorrhoids Ferritin Today D64.9 - Anemia, unspecified, K52.832 - Lymphocytic colitis, K64.9 - Unspecified hemorrhoids Haptoglobin Today D64.9 - Anemia, unspecified, K52.832 - Lymphocytic colitis, K64.9 - Unspecified hemorrhoids DELIA + Protein Elect, Serum Today D64.9 - Anemia, unspecified, K52.832 - L ymphocytic colitis, K64.9 - Unspecified hemorrhoids Iron Binding Capacity,Total Today D64.9 - Anemia, unspecified, K52.832 - Lymphocytic colitis, K64.9 - Unspecified hemorrhoids LDH Today D64.9 - Anemia, unspecified, K52.832 - Lymphocytic colitis, K64.9 - Unspecified hemorrhoids Retic Panel Count Today D64.9 - Anemia, unspecified, K52.832 - Lymphocytic colitis, K64.9 - Unspecified hemorrhoids Iron Today D64.9 - Anemia, unspecified, K52.832 - Lymphocytic colitis, K64.9 - Unspecified hemorrhoids Celiac Disease Profile Today D64.9 - Anemia, unspecified, K52.832 - Lymphocytic colitis, K64.9 - Unspecified hemorrhoids OFI Hemoglobin Electrophoresis Today D56.9 - Thalassemia, unspecified, D64.9 - Anemia, unspecified, K52.832 - Lymphocytic colitis, K64.9 - Unspecified hemorrhoids Medications: New lubiprostone 24 mcg PO QDAY 90 caps 1RF I have examined the patient and the H&P has been reviewed. There are no clinical changes since date of exam.
[2024-06-11] MEDS: Lidocaine Jelly 2% 20 ML Syringe (URO-JET) 1 APPLIC (13:17)
--- NOTE | 2024-06-11 13:20 | OP.COLON_ITS ---
Patient Name: Mandi Valente Procedure Date: 06/11/2024 12:04 PM Date of : 1990 Age: 33 Procedure: Colonoscopy Indications: Hematochezia Providers: Elijah Shafer DO Referring MD: Yonas Ya Medicines: Monitored Anesthesia Care Patient Profile: This is a 33 year old female. Refer to note in patient chart for documentation of history and physical. Last Colonoscopy: none. The patient's first colonoscopy is today. Complications: No immediate complications. Procedure: Pre-Anesthesia Assessment: - Prior to the procedure, a History and Physical was performed, and patient medications and allergies were reviewed. The patient is competent. The risks and benefits of the procedure and the sedation options and risks were discussed with the patient. All questions were answered and informed consent was obtained. Patient identification and proposed procedure were verified by the physician in the pre-procedure area. Mental Status Examination: alert and oriented. Airway Examination: normal oropharyngeal airway and neck mobility. Respiratory Examination: clear to auscultation. CV Examination: normal. Prophylactic Antibiotics: The patient does not require prophylactic antibiotics. Prior Anticoagulants: The patient has taken no anticoagulant or antiplatelet agents except for NSAID medication. ASA Grade Assessment: II - A patient with mild systemic disease. After reviewing the risks and benefits, the patient was deemed in satisfactory condition to undergo the procedure. The anesthesia plan was to use monitored anesthesia care (MAC). Immediately prior to administration of medications, the patient was re-assessed for adequacy to receive sedatives. The heart rate, respiratory rate, oxygen saturations, blood pressure, adequacy of pulmonary ventilation, and response to care were monitored throughout the procedure. The physical status of the patient was re-assessed after the procedure. After I obtained informed consent, the scope was passed under direct vision. Throughout the procedure, the patient's blood pressure, pulse, and oxygen saturations were monitored continuously. The Colonoscope was introduced through the anus and advanced to the terminal ileum. The colonoscopy was performed without difficulty. The patient tolerated the procedure well. The quality of the bowel preparation was adequate. The terminal ileum, ileocecal valve, appendiceal orifice, and rectum were photographed. Scope In: 12:44:35 PM Scope Withdrawal Time 0 hours 24 minutes 26 seconds Scope Out: 1:12:38 PM Total Procedure Duration Time 0 hours 28 minutes 3 seconds Findings: The perianal and digital rectal examinations were normal. A few small-mouthed diverticula were found in the sigmoid colon and descending colon. Bleeding external and internal hemorrhoids were found during retroflexion and during perianal exam. The hemorrhoids were Grade III (internal hemorrhoids that prolapse but require manual reduction). A hemorrhoid was isolated with endoscopy. The ligator was positioned over the hemorrhoid at the left lateral position. Suction was applied and one rubber band was placed over the hemorrhoid. This was checked to make certain that the muscularis was free of the band. Post-banding digital rectal exam showed band in good position. The patient tolerated the procedure well. Destruction of external and internal hemorrhoids using argon plasma at 0.3 liters/minute and 25 blancas was successful. Estimated blood loss was minimal. The terminal ileum appeared normal. Impression: - Diverticulosis in the sigmoid colon and in the descending colon. - Bleeding external and internal hemorrhoids. Banded. Treated with thermal therapy. - The examined portion of the ileum was normal. - No specimens collected. Recommendation: - Discharge patient to home. - Resume previous diet. - Continue present medications. - Repeat colonoscopy in 10 years for screening purposes. Procedure Code(s): --- Professional --- 28743, Colonoscopy, flexible; with band ligation(s) (eg, hemorrhoids) 55493, Destruction of internal hemorrhoid(s) by thermal energy (eg, infrared coagulation, cautery, radiofrequency) CPT copyright 2021 [employer]. All rights reserved. The codes documented in this report are preliminary and upon spot welder line review may be revised to meet current compliance requirements. Elijah Shafer DO 06/11/2024 1:20:11 PM This report has been signed electronically. Number of Addenda: 0 Note Initiated On: 06/11/2024 12:04 PM
--- NOTE | 2024-06-11 13:20 | OP.CCLET_ITS ---
06/11/2024 Yonas Ya [address] [place] [address] Re : Colonoscopy procedure for Mandi Valente Dear Dr. Ya This procedure was performed on Tuesday, June 11, 2024. My impressions and recommendations are as follows: Impressions : - Diverticulosis in the sigmoid colon and in the descending colon. - Bleeding external and internal hemorrhoids. Banded. Treated with thermal therapy. - The examined portion of the ileum was normal. - No specimens collected. Recommendations : - Discharge patient to home. - Resume previous diet. - Continue present medications. - Repeat colonoscopy in 10 years for screening purposes. My findings are described in the full procedure note, which is enclosed. If I can be of further assistance, please feel free to contact me at . Sincerely, Elijah Friend, 06/11/2024 1:20:11 PM This report has been signed electronically.
--- NOTE | 2024-06-11 13:23 | PCM.POST.ANE ---
Anesthesia: Postop Eval I Current Vital Signs Temperature: 97.2 F Pulse Rate: 67 Blood Pressure: 114/67 Respiratory Rate: 14 Pulse Ox: 100 Oxygen Delivery Method: Room Air Assessment Airway patent: Yes Spontaneous unlabored respirations: Yes Mental status: Asleep nausea: No Vomiting: No Anesthesia Complication: No Fluid Hydration Crystalloid volume administer (ml): 60 Total IV fluid infused: 60 Progress Note Anesthesia document: Postop Eval 1 completed: Yes
[2024-06-11] MEDS: Morphine 4 MG/ML Syringe IV (13:37)
--- NOTE | 2024-06-11 16:49 | PCM.POSTANE2 ---
Anesthesia Postop Eval I Sum Postop Eval Completion status Anesthesia document: Postop Eval 1 completed: Yes Anesthesia Postop Eval I Summary Anesthesia Postop Eval I Summary: Anesthesia Postop Eval I: Assessment Summary Airway patent Yes 06/11/24 13:24 [email or web address] Spontaneous unlabored Yes 06/11/24 13:24 [email or web address] respirations Mental status Asleep 06/11/24 13:24 [email or web address] nausea No 06/11/24 13:24 [email or web address] Vomiting No 06/11/24 13:24 [email or web address] Anesthesia Postop Eval I: Fluid Summary Crystalloid volume administer 60 06/11/24 13:24 [email or web address] (ml) Colloids volume administered ( ml) Blood Product volume administered (ml) Total IV fluid infused 60 06/11/24 13:24 [email or web address] Anesthesia Postop Eval I: Summary Notes Anesthesia Complication No 06/11/24 13:24 [email or web address] Anesthesia Complication Comment: Post-operative progress note Anesthesia: Postop Eval II Evaluation Mental status: Awake and Calm Pain Level: 0 nausea: No Vomiting: No Complications Anesthesia Complication: No
== END 2024-06-11 14:32 | disposition home or self-care (01) ==
LOC: EN 10:55 → AC 10:56
PROVIDERS: Anesthesiology; PCP Family Medicine; Referring Provider Family Medicine; Visit Provider Internal Medicine Gastroenterology
PROC: 0DJD8ZZ Inspection of Lower Intestinal Tract, Via Natural or Artificial Opening Endoscopic (ICD-10-PCS; CPT 45378; principal; 2024-06-11 11:55)
DX: K57.30 Diverticulosis of large intestine without perforation or abscess without bleeding (principal); K64.2 Third degree hemorrhoids; K64.4 Residual hemorrhoidal skin tags; K52.832 Lymphocytic colitis; D64.9 Anemia, unspecified
CPT/HCPCS: 45398; 46930; 81025; A4216; J2405

== ENCOUNTER → 2024-06-26 | Outpatient (CLI) | payer BC, SELFPAY ==
[2024-06-29 10:07] LABS: Chlamydia By Nucleic Acid AMP Negative (Negative); Gonococcus By Nucleic Acid AMP Negative (Negative)
== END | disposition home or self-care (01) ==
LOC: LABSPEC 14:17
PROVIDERS: PCP Family Medicine; Referring Provider Nurse Practitioner Family; Visit Provider Nurse Practitioner Family
DX: N89.8 Other specified noninflammatory disorders of vagina (principal); Z11.3 Encounter for screening for infections with a predominantly sexual mode of transmission; N94.89 Other specified conditions associated with female genital organs and menstrual cycle
CPT/HCPCS: 87070; 87086; 87205; 87491; 87591

== ENCOUNTER → 2024-08-13 | Outpatient (CLI) | payer BC, SELFPAY ==
[2024-08-13 17:26] LABS: Protein, Urine (Random) 8.8 mg/dL (<11.9); Protein:Creat Ratio 90 mg/g CRE (0-200)
[2024-08-15 21:06] LABS: Chlamydia By Nucleic Acid AMP Negative (Negative); Gonococcus By Nucleic Acid AMP Negative (Negative)
== END | disposition home or self-care (01) ==
PROVIDERS: PCP Family Medicine; Referring Provider Obstetrics & Gynecology; Visit Provider Obstetrics & Gynecology
DX: O99.210 Obesity complicating pregnancy, unspecified trimester (principal); N89.8 Other specified noninflammatory disorders of vagina; Z3A.00 Weeks of gestation of pregnancy not specified; O99.891 Other specified diseases and conditions complicating pregnancy
CPT/HCPCS: 82570; 84156; 87070; 87077; 87086; 87088; 87186; 87205; 87491; 87591

== ENCOUNTER → 2024-09-10 | Outpatient (CLI) | payer BC, SELFPAY ==
[2024-09-10 16:55] LABS: Absolute Lymphocyte Count 1.58 X10^3/uL (0.83-4.51); Absolute Neutrophil Count 5.1 X10^3/uL (2.0-7.7); Basophil# 0.01 X10^3/uL; Basophil% 0.1 % (0-1); Eosinophil# 0.19 X10^3/uL; Eosinophils% 2.6 % (0-5); Hematocrit 40.2 % (37-47); Hemoglobin 13.9 g/dL (12.0-15.0); Lymphocyte # 1.58 X10^3/ul (0.83-4.51); Mean Corp Hgb Conc 34.6 g/dL (32-36); Mean Corpuscular Volume 86.6 fL (81-99); Mean Platelet Vol. 9.6 fl (6.2-12.0); Monocyte# 0.31 X10^3/uL; Monocyte% 4.3 % (0-10); NRBC Flagged by Analyzer 0 % (0-5); Neutrophil # 5.07 X10^3/uL (2.7-7.7); Neutrophil % 70.7 % (47-70); Platelet Count 281 K/mm3 (150-450); RBC Distribution Width SD 37.5 fl (35.1-43.9); Red Blood Count 4.64 M/mm3 (4.2-5.4); White Blood Count 7.2 K/mm3 (4.4-11.0)
[2024-09-10 18:58] LABS: ALB/GLOB Ratio 1.9 RATIO (0.9-2.4); AST(SGOT) 17 U/L (<=31); Alanine Aminotransfer ALT/SGPT 22 U/L (<=34); Albumin, Serum 4.4 g/dL (3.5-5.0); Alkaline Phosphatase 60 U/L (35-104); BUN 10 mg/dL (4-19); BUN/Creat Ratio 17.4 RATIO (10-20); Calcium,Total 9.6 mg/dL (7.6-11.0); Carbon Dioxide 21.9 mmol/L (21.0-32.0); Chloride 104 mmol/L (98-108); Creatinine, Serum 0.58 mg/dL (0.70-1.20); EST Glomerular Filtration Rate 121 (>60); Globulin 2.3 g/dL (2.2-4.2); Glucose 86 mg/dL (70-99); Potassium 3.9 mmol/L (3.3-5.1); Protein, Total 6.7 g/dL (5.9-8.4); Sodium Level 139 mmol/L (133-145); Total Bilirubin 0.19 mg/dL (0.00-1.30)
[2024-09-10 18:59] LABS: Anion Gap 13 (5-15); HIV Nonreactive (Nonreactive); Hepatitis B Surface Antigen Nonreactive (Nonreactive); Hepatitis C Antibody Nonreactive (Nonreactive); Rubella IgG REAC (Nonreactive); Syphilis Antibodies Nonreactive (Nonreactive)
[2024-09-10 19:14] LABS: Hemoglobin A1c 5.1 % (<=5.6)
== END | disposition home or self-care (01) ==
PROVIDERS: PCP Family Medicine; Referring Provider Obstetrics & Gynecology; Visit Provider Obstetrics & Gynecology
DX: O09.521 Supervision of elderly multigravida, first trimester (principal); Z3A.00 Weeks of gestation of pregnancy not specified; O99.210 Obesity complicating pregnancy, unspecified trimester
CPT/HCPCS: 36415; 80053; 83036; 85025; 86703; 86762; 86780; 86803; 86850; 86900; 86901; 87340

== ENCOUNTER 2024-10-11 21:49 | Emergency (ER) | payer BC, SELFPAY ==
[2024-10-11 21:50] VITALS: BP 157/87; PULSE 99; RESP 18; TEMP 36.9; O2SAT 99; BMI 37.6
--- NOTE | 2024-10-11 21:51 | US_ITS ---
PROCEDURE: TRANSVAGINAL W/PREG US 10/11/2024 REASON FOR EXAM: CRAMPING, BLEEDING IN TECHNIQUE: Transabdominal and transvaginal imaging COMPARISON: None available FINDINGS: Single live intrauterine heart rate 145 beats per minute. Presentation variable/cephalic Cervix 4 cm and appears closed. Anterior fundal placenta appears within limits without evidence of abruption or previa. Grade 0. 2.4 x 3.2 x 1.7 cm hypoechoic area along the free edge of the placenta is consistent with area of venous Hyatt. Right ovary measures 3.3 x 2.4 x 1.6 cm. Heterogeneous hypoechoic focus within the right ovary measures 2 x 1.5 x 1.2 cm possibly hemorrhagic corpus luteum cyst. The left ovary is not identified. No free fluid seen. Reported age 16 weeks and 1 days, RAMSES 03/27/2025 US/Transvaginal w/Preg US IMPRESSION: Single live intrauterine as above. Heterogeneous hypoechoic focus within the right ovary measures 2 x 1.5 x 1.2 cm possibly hemorrhagic corpus luteum cyst. 2.4 x 3.2 x 1.7 cm hypoechoic area along the free edge of the placenta is consi stent with area of venous Hyatt. Attention on follow-up Reading Location: [id number]
--- NOTE | 2024-10-11 21:53 | EDS_ITS ---
HPI HPI - Female History of Present Illness Chief Complaint: Vag Bld, Preg Informant: patient Associated Symptoms P: 4 Ab: 1 Narrative Narrative: Patient is a 33-year-old female G5, P4 (1 twin gestation) currently 16 weeks presenting with pelvic cramping and vaginal bleeding. She states that started tonight. Patient works here in her symptoms started while working. Patient states she went to the bathroom and saw glob in her underwear. She then wiped and states it was light pink. Show she did have intercourse last night for the first time in a couple weeks. She denies any other abnormal vaginal discharge. Nuys any lightheadedness. Denies any nausea or vomiting. Denies any urinary symptoms. Spoke to her CONSULTING HR PROFESSIONAL who recommend she come to the ER for evaluation. States she has not had any bleeding in this until tonight. Notes on her initial ultrasound she did have what appeared to be a subchorionic hemorr cassi however that has been monitored. She has had ultrasound that shows it single intrauterine gestation. No other complaints or concerns reported at this time. Chart review shows that patient is A positive [facility] Medical History Seasonal allergies Hx of pre-eclampsia in prior , currently Superficial varicosities Pre-eclampsia Galactorrhea Allergic dermatitis Trochanteric bursitis of right hip Lymphocytic colitis Non-smoker History of steroid therapy Constipation Umbilical hernia Chronic constipation Dichorionic diamniotic twin gestation Anal fissure External hemorrhoids Home Medications ?Medication ?Instructions ?Recorded ?Last Taken ?Type multivitamin no.47-iron fum 27 1 cap PO DAILY pregnanc y 08/18/23 Unknown History mg-folate no.1 1 mg-dha 300 mg capsule (PNV-DHA) Diltiazem 2% / Lidocaine 5% #1 ea 06/24/24 Unknown Rx ointment (compound) polyethylene glycol 3350 17 4 g PO QDAY PRN 06/24/24 U nknown History gram/dose oral powder (Miralax) ferrous sulfate 325 mg (65 mg 325 mg PO Q OTHER DAY Unknown History iron) tablet folic acid 0.8 mg capsule 0.8 mg PO QDAY 08/06/24 Unkn own History famotidine 20 mg tablet (Pepcid) 20 mg PO BID 90 days #180 tabs 09/10/24 Unknown Rx clotrimazole 2 % vaginal cream 1 appful vaginal QHS 3 days #21 10/11/24 Unknown Rx (Clotrimazole 3 Day) grams Allergy/AdvReac Type Severity Reaction Status Date / Time No Known Allergies Allergy Verified 10/07/24 13:56 Family History Mother Arthritis Hypertension Father Arthritis Hypertension CVA (cerebral vascular accident) Aunt Breast cancer Paternal Grandfather Heart disease Kidney disease Brother Hypertension Sister Hypertension Grandmother Breast cancer Paternal Diabetes Paternal Surgical History History of hip surgery Hx of umbilical hernia repair Hx of dilation and curettage History of hemorrhoidectomy (~05/2018) History of tonsillectomy Social History adopted: No household members: spouse and children number of children: 4 current occupational status: employed 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 current occupational exposures/hazards: No pets and animals: Yes (Avoid litterbox) pets and animals: cat(s) and dog(s) history of recent travel: No sexually active: Yes Smoking Status: Never smoker alcohol intake: current alcohol intake frequency: a few times a month details: not while substance use type: does not use well-balanced diet: daily or most days caffeine: Yes Type: carbonated beverages Number of servings: 2 eating out: 1-3 times/week during the past year weight has: increased > 10 lbs what type of physical activity do you participate in: none suraj/rastafari: Tenriism seatbelt use: always do you feel safe at home: Yes additional social history: [employer] Super[employer] ROS ROS ED Constitutional Constitutional ED: Denies chills or fever(s) Gastrointestinal Gastrointestinal: Reports other Details: Pelvic cramping ; Denies nausea or vomiting Genitourinary Genitourinary ED: Reports other Details: Vaginal bleeding ; Denies dysuria or hematuria Integumentary Denies rash Endocrine Endocrinology: Denies polydipsia Hematologic/Lymphatic Hematologic/Lymphatic: Denies easy bleeding or easy bruising EXAM Physical Exam Const Vital Signs: 10/11/24 21:50 Temperature 98.5 F Temperature Source Oral Pulse Rate 99 Respiratory Rate 18 Blood Pressure 157/87 H Blood Pressure Mean 110 Pulse Ox 99 Oxygen Delivery Method Room Air Positive well nourished and well developed General Appearance ED: well developed and NAD HEENT Reports moist mucous membranes Chest Wall inspection of chest normal and palpation of chest normal Resp normal respiratory effort and clear to auscultation bilaterally Cardio regular rate and regular rhythm GI normal to inspection, nondistended, normoactive bowel sounds, soft to palpation and non-tender Narrative: Chaperoned pelvic exam performed. External genitalia patient does have a noninfected inclusion cyst present at the inferior aspect of her vagina. She has white plaques along the cervix and vaginal canal consistent with yeast vaginitis. No significant erythema. Cervix appears closed. There is discharge of thick white/clear discharge. No bleeding appreciated. Neuro oriented x3 Sensorium / Orientation: alert Motor Exam: Negative for general weakness Psych mental status grossly normal Skin no rashes or lesions noted MDM MDM MDM Narrative Medical decision making narrative: Patient evaluated for pelvic cramping and bleeding in early . She is approximately 16 weeks. She is well-appearing with only elevated blood pressure. Will recheck but she is too early for preeclampsia. Urinalysis not show any protein. Urinalysis not consistent with dehydration or urinary tract infection. Pelvic exam is consistent with a yeast vaginitis but the cervix is closed at this time and I do not appreciate any vaginal bleeding. I do not think she requires a CBC as she does not appear to have any clinically significant bleeding at this time/hemorrhage. Given that she is 16 weeks low utility for trending H&H. She has documented Rh+ status in the computer. Pelvic ultrasound was obtained. Differential includes threatened , placental abruption, subchorionic hemorrhage or possibly early Romero Osman. Patient signed out to oncoming physician pending ultrasound result and final disposition. Anticipate if ultrasound is normal could be discharged home with close CONSULTING HR PROFESSIONAL follow-up Lab Data Attestation: I reviewed the patient's lab results. Labs: Laboratory Results - last 24 hr 10/11/24 22:00 Urine Color Yellow Urine Clarity Sl. Cloudy Urine pH 6.0 Ur Specific Lyman 1.015 Urine Protein Negative Urine Glucose (UA) Normal Urine Ketones Negative Urine Occult Blood 25 H Urine Nitrite Negative Urine Bilirubin Negative Urine Urobilinogen Normal Ur Leukocyte Esterase 25 H Urine RBC 0-5 SEEN Urine WBC 0-5 SEEN Ur Squamous Epith Cells 0-5 SEEN Urine Bacteria 0 SEEN Urine Mucus 0 SEEN Discharge Plan Triage Chief Complaint: Vag Bld, Preg ED Provider: Mary Jane Wade Dx/Rx/DC Orders Clinical Impression: Yeast vaginitis, Vaginal bleeding in , Pelvic cramping Instructions: Candidiasis Vaginal, ED Abdominal Pain, Early Prescriptions: New Clotrimazole 3 Day 2 % cream 1 appful vaginal QHS 3 Days Qty: 21 0RF No Action PNV-DHA 27 mg iron-1 mg -300 mg capsule 1 cap PO DAILY ferrous sulfate 325 mg (65 mg iron) tablet 325 mg PO Q OTHER DAY polyethylene glycol 3350 [Miralax] 17 gram/dose powder 4 g PO QDAY PRN (DME) Diltiazem 2% / Lidocaine 5% ointment (compound) Ointment See Rx Instructions .Route Qty: 1 0RF Patient Comments: Not using currently Rx Instructions: place a pea sized amount to the affected area of the rectum twice a day folic acid 0.8 mg capsule 0.8 mg PO QDAY famotidine [Pepcid] 20 mg tablet 20 mg PO BID 90 Days Qty: 180 4RF Primary Care Provider: Yonas Ya Referrals: Yonas Ya DO [Primary Care Provider] - Print Language: Bots[place]
[2024-10-11 22:09] LABS: Bacteria 0 SEEN /hpf (None Seen); Mucous, Urine 0 SEEN /hpf (<or=2+)
[2024-10-11 22:21] LABS: Color, Urine Yellow (Yellow); Glucose, Dipstick Normal (Normal); Ketone-Dipstick Negative (Negative); Leukocyte Esterase-Dipstick 25 /ul (Negative); Nitrite-Dipstick Negative (Negative); Occult Blood-Urine 25 /ul (Negative); Protein-Dipstick Negative (Negative); Specific Gravity, Urine 1.015 (1.002-1.030); Urine Bilirubin Dipstick Negative (Negative); Urine Clarity Sl. Cloudy (Clear); Urine Urobilinogen Normal (Normal)
[2024-10-11 22:24] LABS: Red Blood Cells-Urine 0-5 SEEN /hpf (0-5); Squamous Epithelial Cells - UA 0-5 SEEN /hpf (5-10); White Blood Cells 0-5 SEEN /hpf (0-5)
[2024-10-11 23:22] VITALS: BP 132/72; PULSE 85; RESP 18; O2SAT 99
[2024-10-12 00:51] VITALS: BP 132/72; PULSE 85; RESP 18; TEMP 36.9; O2SAT 99
== END 2024-10-12 00:58 | disposition home or self-care (01) ==
PROVIDERS: Emergency Provider Emergency Medicine; PCP Family Medicine; Visit Provider Emergency Medicine
DX: O23.592 Infection of other part of genital tract in pregnancy, second trimester (principal); B37.31 Acute candidiasis of vulva and vagina; O20.9 Hemorrhage in early pregnancy, unspecified; Z3A.16 16 weeks gestation of pregnancy; O99.892 Other specified diseases and conditions complicating childbirth; R25.2 Cramp and spasm
CPT/HCPCS: 76817; 81001; 99282

== ENCOUNTER → 2024-10-15 | Outpatient (CLI) | payer BC, SELFPAY | END | disposition home or self-care (01) | LOC: LABSPEC 15:06 | PROVIDERS: PCP Family Medicine; Referring Provider Obstetrics & Gynecology; Visit Provider Obstetrics & Gynecology | DX: R10.2 Pelvic and perineal pain (principal) | CPT/HCPCS: 87070; 87086; 87088; 87205 ==

== ENCOUNTER → 2024-12-26 | Outpatient (CLI) | payer BC, SELFPAY ==
[2024-12-26 11:16] LABS: Absolute Lymphocyte Count 1.32 X10^3/uL (0.83-4.51); Absolute Neutrophil Count 5.7 X10^3/uL (2.0-7.7); Basophil# 0.03 X10^3/uL; Basophil% 0.4 % (0-1); Eosinophil# 0.22 X10^3/uL; Eosinophils% 2.9 % (0-5); Hematocrit 33.8 % (37-47); Hemoglobin 11.8 g/dL (12.0-15.0); Lymphocyte # 1.32 X10^3/ul (0.83-4.51); Lymphocyte % 17.4 % (19-41); Mean Corp Hgb Conc 34.9 g/dL (32-36); Mean Corpuscular Hgb 30.6 pg (27.0-32.0); Mean Corpuscular Volume 87.8 fL (81-99); Mean Platelet Vol. 9.9 fl (6.2-12.0); Monocyte# 0.29 X10^3/uL; Monocyte% 3.8 % (0-10); NRBC Flagged by Analyzer 0 % (0-5); Neutrophil # 5.68 X10^3/uL (2.7-7.7); Neutrophil % 75.1 % (47-70); Platelet Count 196 K/mm3 (150-450); RBC Distribution Width CV 12.7 % (11.6-14.6); RBC Distribution Width SD 40.8 fl (35.1-43.9); Red Blood Count 3.85 M/mm3 (4.2-5.4); White Blood Count 7.6 K/mm3 (4.4-11.0)
[2024-12-26 12:06] LABS: Glucose Challenge Gest 1H 50g 138 mg/dL (70-140); HIV Nonreactive (Nonreactive); Syphilis Antibodies Nonreactive (Nonreactive)
== END | disposition home or self-care (01) ==
LOC: PAVLAB 11:00
PROVIDERS: PCP Family Medicine; Referring Provider Obstetrics & Gynecology; Visit Provider Obstetrics & Gynecology
DX: Z13.1 Encounter for screening for diabetes mellitus (principal); O09.90 Supervision of high risk pregnancy, unspecified, unspecified trimester; Z3A.00 Weeks of gestation of pregnancy not specified
CPT/HCPCS: 36415; 82950; 85025; 86703; 86780

== ENCOUNTER → 2025-01-14 | Outpatient (CLI) | payer BC, SELFPAY ==
[2025-01-14 08:03] LABS: Glucose GTT-Gestation. Fasting 88 mg/dL (<105)
[2025-01-14 11:02] LABS: Glucose GTT-Gestational 1 Hr 143 mg/dL (<190)
[2025-01-14 12:38] LABS: Glucose GTT-Gestational 2 Hr 126 mg/dL (<165)
[2025-01-14 12:42] LABS: Glucose GTT-Gestational 3 Hr 89 L (<145)
--- OUTSIDE RECORDS SUMMARY | 2025-01-16 02:59 | XMS RPT_ITS | CCD ---
Author Organization [facility] Care Team Providers Care Circuit Board Assembler Name Role Phone J Luis Jacobson (Historic) Primary Care Prov ider Dr. Cholo Smith Primary Care Provider [phone] Cholo Smith Referring Provider Soni, Dr. Nava Attending Provider Dr. Dane Galvan Attending Provider [phone] August Thomas Attending Provider [phone] J Luis Jacobson (Historic) Primary Care Prov ider J Luis Jacobson (Historic) Primary Care Prov ider J Luis Jacobson (Historic) Primary Care Prov ider Dr. Cholo Smith Primary Care Provider Dr. Cholo Smith Referring Provider IMAN Luis Attending Provider Dr. Cholo Smith Primary Care Provider [phone] Dr. Cholo Smith Referring Provider IMAN Luis Attending Provider [phone] J Luis Jacobson (Historic) Primary Care Prov ider Dr. Cholo Smith Primary Care Provider [phone] Dr. Cholo Smith Referring Provider Roof MIXER FOAM RUBBER, MIXER FOAM RUBBER-Ernestina Christianson Attending Provider Sarah DO, Cholo A Primary Care Provider Dr. Cholo Smith Primary Care Provider [phone] Dr. Cholo Smith Referring Provider IMAN Loaiza Attending Provider INDIRA, J LUIS NINO (HISTORIC) Primary Care U navailable CHICORELLI, CATHRYN MENG Attending Unavailab le CHICORELLI, CATHRYN MENG Attending Unavailab le ZEWAIL, J LUIS NINO (HISTORIC) Primary Care U navailable CHICORELLI, CATHRYN MENG Attending Unavailab le ZEWAIL, J LUIS NINO (HISTORIC) Primary Care U navailable SARAH, CHOLO A Primary Care Unavailable REGNEAL, KELLY Attending Unavailable SARAH, CHOLO A Primary Care Unavailable CHICORELLI, CATHRYN MENG Attending Unavailab PIERRE De La Rosa Referring Unavailable SARAH, CHOLO A Primary Care Unavailable CHICORELLI, CATHRYN MENG Attending Unavailab le FABIOLAPIERRE Attending Unavailable SARAH, CHOLO A Primary Care Unavailable ZEWAIL, J LUIS NINO (HISTORIC) Primary Care U navailable CHICORELLI, CATHRYN MENG Attending Unavailab le CHICORELLI, CATHRYN MENG Referring Unavailab le ZEWAIL, J LUIS NINO (HISTORIC) Primary Care U navailable REGNEAL, KELLY Referring Unavailable SARAH, CHOLO A Primary Care Unavailable ZEWAIL, J LUIS NINO (HISTORIC) Primary Care U navailable PROVIDER, UNKNOWN Referring Unavailable SARAH, CHOLO A Primary Care Unavailable ZEWAIL, J LUIS NINO (HISTORIC) Primary Care U navailable PROVIDER, UNKNOWN Admitting Unavailable PROVIDER, UNKNOWN Attending Unavailable Dr. Cholo Smith Primary Care Provider [phone] Cholo Smith Referring Provider IMAN Loaiza Attending Provider IMAN Luis Attending Provider Dr. Cholo Smith Primary Care Provider [phone] Dr. Cholo Smith Referring Provider [phone] Dr. Reina Rashid Attending Provider Dr. Cholo Smith Primary Care Provider [phone] Dr. Cholo Smith Referring Provider Dr. Reina Rashid Attending Provider ERI Parry Attending Provider Dr. Piedad Moreno Attending Provider Sarah JOSHI, Cholo Dorsey Primary Care Provider J Luis Jacobson (Historic) Primary Care Prov ider Sarah JOSHI, Dr. Branham Primary Care Provider Dr. Reina Rashid DO Attending Provider Park Romero DO, Dr. Huang Referring Provider Sarah JOSHI, Dr. Branham Referring Provider [phone] Soni JOSHI, Dr. Nava Attending Provider Soni JOSHI, Dr. Nava Other Provider Avery BINGHAM-CReina Attending Provider Alma BING[place]-CIvett Attending Provider Ivett Carrington Referring Provider Lawson Parry CNM Attending Provider Sarah JOSHI, Dr. Branham Primary Care Provider Dr. Reina Rashid DO Attending Provider Dr. Reina Rashid DO Referring Provider Dr. Cholo Smith DO Primary Care Provider Dr. Cholo Smith DO Referring Provider [phone] Soni JOSHI, Dr. Nava Attending Provider Sheri JOSHI, Dr. Hinton Attending Provider [phone] Mary Jane Wade DO Emergency Provider Josh FORD, Dr. Herbert Attending Provider [phone] Dr. Piedad Moreno MD Referring Provider [phone] Dr. Cholo Smith DO Primary Care Provider Sarah JOSHI, Dr. Branham Referring Provider [phone] CHOLO SMITH A Primary Care Unavailable SAMIA NYE Attending Unavailable LAWSON PARRY Referring Unavailable JEREMIAH MANNING Attending Unavailable CHOLO SMITH Primary Care Unavailable LAWSON PARRY Referring Unavailable REINA GARCIA Referring Unavailab le SARAH, CHOLO Dorsey Primary Care Unavailable BRIANNE MULLINS Attending Unavailable CHOLO SMITH Primary Care Unavailable KONRAD MAS Attending Unavailable REINA GARCIA Referring Unavailab PURA Manley Attending Unavailable CHOLO SMITH Primary Care Unavailable REINA GARCIA Referring Unavailab AMINA Amin Attending Unavailable CHOLO SMITH Primary Care Unavailable REINA GARCIA Referring Unavailab le Dr. Cholo Smith DO Primary Care Provider Dr. Cholo Smith DO Referring Provider [phone] Dr. Reina Rashid DO Attending Provider Dr. Reina Rashid DO Referring Provider Lawson Parry CNM Attending Provider [phone] Reina Rashid Attending Unavailabl e Cholo Smith Primary Care Unavailable Cholo Smith Primary Care Unavailable Piedad Moreno Referring Unavailable Piedad Moreno Attending Unavailable Park Romero, Reina Admitting Unavailabl e Vande Velmaria elena, Reina Attending Unavailabl e Cholo Smith Primary Care Unavailable Piedad Moreno Referring Unavailable Vande Velmaria elena, Reina Admitting Unavailabl e Vande Velde, Reina Referring Unavailabl e Vande Heather, Reina Attending Unavailjai e Cholo Smith Primary Care Unavailable Cholo Smith Referring Unavailable Richarde Velmaria elena, Reina Attending Unavailabl e Sarah, Cholo Primary Care Unavailable Sarah, Cholo Referring Unavailable Lawson Parry Attending Unavailable Sarah, Cholo Primary Care Unavailable Sarah, Cholo Referring Unavailable Vande VeldeReina Attending Unavailabl e Sarah, Cholo Primary Care Unavailable Sarah, Cholo Primary Care Unavailable Vande Velde, Reina Referring Unavailabl e Vande Velde, Reina Attending Unavailabl e Vande VeldeReina Attending Unavailabl e Vande VeldeReina Referring Unavailabl e Sarah, Cholo Primary Care Unavailable Sarah, Cholo Primary Care Unavailable Vande Velde, Reina Referring Unavailabl e Vande Velde, Reina Attending Unavailabl Lawson Araya Attending Unavailable Lawson Parry Referring Unavailable Sarah, Cholo Primary Care Unavailable Lawson Parry Attending Unavailable Sarah, Cholo Primary Care Unavailable Lawson Parry Referring Unavailable Sarah, Cholo Primary Care Unavailable Reina Rashid Attending Unavailabl Lisseth Akhtar Referring Unavailable Sarah, Cholo Primary Care Unavailable Lisseth [place] Attending Unavailable Mary Jane Wade Attending Unavailable Sarah, Cholo Primary Care Unavailable Vande Addisonde, Reina Attending Unavailabl e Sarah, Cholo Primary Care Unavailable Vande Addisonde, Reina Referring Unavailabl e Sarah, Cholo Referring Unavailable Lawson Parry Attending Unavailable Sarah, Cholo Primary Care Unavailable Piedad Moreno Referring Unavailable Piedad Moreno Attending Unavailable Sarah, Cholo Primary Care Unavailable Reina Rashid Attending Unavailabl e Vande VeldeReina Referring Unavailabl e Sarah, Cholo Primary Care Unavailable Sarah, Cholo Referring Unavailable Chay Luis Attending Unavailable Sarah, Cholo Primary Care Unavailable Vande VeldeReina Attending Unavailabl e Vande VeldeReina Referring Unavailabl e Sarah, Cholo Primary Care Unavailable Sarah, Cholo Referring Unavailable Sarah, Cholo Primary Care Unavailable Piedad Moreno Attending Unavailable Sarah, Cholo Referring Unavailable Vande VeldeReina Attending Unavailabl e Sarah, Cholo Primary Care Unavailable Sarah, Cholo Referring Unavailable Piedad Moreno Attending Unavailable Sarah, Cholo Primary Care Unavailable Sarah, Cholo Referring Unavailable Sarah, Cholo Primary Care Unavailable Vande VeldeReina Attending Unavailabl e Sarah, Cholo Referring Unavailable Lawson Parry Attending Unavailable Sarah, Cholo Primary Care Unavailable Sarah, Cholo Referring Unavailable Vande Velde, Reina Attending Unavailabl e Sarah, Cholo Primary Care Unavailable Sarah, Cholo Referring Unavailable Lisseth [place] Attending Unavailable Sarah, Cholo Primary Care Unavailable Sarah, Cholo Referring Unavailable Vande Velde, Reina Attending Unavailabl e Sarah, Cholo Primary Care Unavailable Vande Velde, Reina Consulting Unavailabl e Vande Velde, Reina Admitting Unavailabl e Sarah, Cholo Primary Care Unavailable Calvin MIXER FOAM RUBBER, Danya Attending Unavailable SaúlanthonyPiedad Referring Unavailable Sarah, Cholo Primary Care Unavailable Piedad Moreno Referring Unavailable LindsayonyPiedad Attending Unavailable Marcanthony, Piedad Consulting Unavailable Sarah, Cholo Primary Care Unavailable Vande Velde, Reina Consulting Unavailabl e Marcanthony, Piedad Attending Unavailable MarcanthonyPiedad Attending Unavailable Marcanthony, Piedad Consulting Unavailable Marcanthony Piedad Admitting Unavailable Sarah, Cholo Referring Unavailable Lawson Parry Attending Unavailable Sarah, Cholo Primary Care Unavailable Sarah, Cholo Referring Unavailable Lawson Parry Attending Unavailable Sarah, Cholo Primary Care Unavailable Sarah, Cholo Referring Unavailable Friend, Elijah Consulting Unavailable Friend, Elijah Attending Unavailable Sarah, Cholo Primary Care Unavailable Sarah, Cholo Referring Unavailable MarcdeannaonyPiedad Attending Unavailable Sarah, Cholo Primary Care Unavailable Sarah, Cholo Referring Unavailable Vande AddisondeReina Attending Unavailabl e Sarah, Cholo Primary Care Unavailable Sarah, Cholo Referring Unavailable Friend, Elijah Attending Unavailable Sarah, Cholo Primary Care Unavailable Sarah, Cholo Referring Unavailable Vande VeldeReina Attending Unavailabl e Sarah, Cholo Primary Care Unavailable Vande VeldeReina Attending Unavailabl e Sarah, Cholo Referring Unavailable Sarah, Cholo Primary Care Unavailable Sarah, Cholo Referring Unavailable LindsayonyPiedad Attending Unavailable Sarah, Cholo Primary Care Unavailable Sarah, Cholo Referring Unavailable Reina Varela Attending Unavailable Sarah, Cholo Primary Care Unavailable Sarah, Cholo Referring Unavailable Ivett Marquez Attending Unavailable Sarah, Cholo Primary Care Unavailable Sarah, Cholo Referring Unavailable Reina Rashid Attending Unavailjai e Cholo Smith Primary Care Unavailable Cholo Smith Referring Unavailable Elijah Shafer Attending Unavailable Cholo Smith Primary Care Unavailable Ivett Marquez Referring Unavailable Ivett Marquez Attending Unavailable Cholo Smith Primary Care Unavailable Reina Rashid Attending Unavailjai e Cholo Smith Primary Care Unavailable Reina Rashid Referring Unavailabl e Friend, Elijah Attending Unavailable FriendElijah Referring Unavailable Cholo Smith Primary Care Unavailable Dr. Cholo Smith DO Primary Care Provider Dr. Cholo Smith DO Referring Provider [phone] Dr. Reina Rashid DO Attending Provider Dr. Reina Rashid DO Referring Provider Medications Current Medications Medication Drug Class(es) Dates Sig (Normalized) Sig (Original) Diltiazem 2% / Lidocaine 5% Ointment (Compound) ointment (7 sources) Start: 06-24-2024 Diltiazem 2% / Lidocaine 5% Ointment (Compound) ointment Active 0 .Route 1 0 June 24, 2024 1:00am fissure, hemorrhoid place a pea sized amount to the affected area of the rectum twice a day Start: 06-24-2024 Diltiazem 2% / Lidocaine 5% Ointment (Compound) ointment Active 0 .Route 1 June 24, 2024 1:00am place a pea sized amount to the affected area of the rectum twice a day famotidine 20 mg oral tablet (7 sources) Histamine-2 Receptor Antagonist Start: 09-10-2024 take 1 tablet by mouth twice daily Famotidine (Pepcid) 20 mg tablet Active 20 mg PO TWICE A DAY 180 90 4 September 10, 2024 1:00am ferrous sulfate 325 mg oral tablet (17 sources) Start: 08-06-2024 take 1 tablet by mouth every other day Ferrous Sulfate 325 mg (65 mg iron) tablet Active 325 mg PO every other day August 06, 2024 10:43am Start: 08-18-2023 End: 08-06-2024 take 1 tablet by mouth once daily Ferrous Sulfate 325 mg (65 mg iron) tablet Discontinued 325 mg PO DAILY August 18, 2023 1:00am August 06, 2024 10:46am folic acid 0.8 mg oral capsule (20 sources) Start: 08-06-2024 take 1 capsule by mouth once daily Folic Acid 0.8 mg capsule Active 0.8 mg PO daily August 06, 2024 1:00am Start: 07-14-2020 End: 08-12-2020 take 1 tablet by mouth once daily Folic Acid 1 MG tablet Discontinued 1 mg PO DAILY July 14, 2020 1:00am August 12, 2020 8:54am hydrOXYzine pamoate 25 mg oral capsule (2 sources) Antihistamine Start: 01-03-2025 take 1 capsule by mouth at bedtime as needed Hydroxyzine Pamoate 25 mg capsule Active 25 mg PO AT BEDTIME as needed for itching 30 3 January 03, 2025 12:00am iron,carb/vit C/vit B12/folic (IRON 100 PLUS ORAL) (2 sources) iron,carb/vit C/ vit B12/folic (IRON 100 PLUS ORAL) Take 60 mg by mouth once daily. Active iron,carb/vit C/ vit B12/folic (IRON 100 PLUS ORAL) Take 60 mg by mouth once daily. 0 Active Comment on above: Take 60 mg by mouth once daily. meloxicam 15 mg oral tablet (12 sources) Nonsteroidal Anti-inflammatory Drug Start: 05-24-2022 take 1 tablet by mouth once daily meloxicam (MOBIC) 15 mg tablet Take 15 mg by mouth once daily. 05/24/2022 Active Comment on above: Take 15 mg by mouth once daily. Multivit 37-Qhkq-Jritty 1-Dha (Pnv-Dha) 27 mg iron-1 mg -300 mg capsule (10 sources) Start: 08-18-2023 Multivit 88-Vzei-Jvsvwu 1-Dha (Pnv-Dha) 27 mg iron-1 mg -300 mg capsule Active 1 NMA PO DAILY August 18, 2023 1:00am Start: 08-18-2023 Multivit 47-Ir on-Folate 1-Dha (Pnv-Dha) 27 mg iron-1 mg -300 mg capsule Active 1 NMA PO DAILY August 18, 2023 1:00am Start: 08-18-2023 Multivit 47-Ir on-Folate 1-Dha (Pnv-Dha) 27 mg iron-1 mg -300 mg capsule Active CAP PO August 18, 2023 1:00am Start: 08-18-2023 Multivit 47-Ir on-Folate 1-Dha (Pnv-Dha) 27 mg iron-1 mg -300 mg capsule Active CAP PO August 18, 2023 12:00am multivit-min/iron/folic acid /K (ADULTS MULTIVITAMIN ORAL) (16 sources) multivit-min/iro n/folic acid/K (ADULTS MULTIVITAMIN ORAL) Take by mouth. Active multivit-min/iro n/folic acid/K (ADULTS MULTIVITAMIN ORAL) Take by mouth. 0 Active Comment on above: Take by mouth. polyethylene glycol 3350 00241 mg powder for oral solution (20 sources) Osmotic Laxative Start: 05-10-2024 End: 06-24-2024 Polyethylene Glycol 3350 (Miralax) 17 gram/dose powder Active 4 g PO daily as needed June 24, 2024 10:27am Start: 08-18-2023 End: 03-21-2024 Polyethylene Glycol 3350 (Mi ralax) 17 gram/dose powder Discontinued 4 g PO DAILY as needed for const August 18, 2023 1:00am March 21, 2024 2:04pm Start: 03-29-2021 End: 07-26-2021 Polyethylene Glycol 3350 (Mi ralax) 17 gram/dose powder Discontinued 17 g PO DAILY March 29, 2021 12:00am July 26, 2021 2:12pm Start: 03-29-2021 End: 06-21-2021 Polyethylene Glycol 3350 17 gram/dose powder Discontinued 17 g PO every 10 to 15 minutes 238 0 March 29, 2021 12:00am June 21, 2021 12:00pm Lower gastrointestinal hemorrhage Gastrointestinal hemorrhage, unspecified colonoscopy Start: 04-04-2018 End: 05-22-2018 take 119 g by mouth once daily Polyethylene Glycol 3350 119 GM powder Discontinued 119 g PO DAILY April 04, 2018 12:00am May 22, 2018 2:20pm constipation Comment on above: Take 17 g by mouth o nce daily. Vitamin E67-Rxkkk Acid (10 sources) Start: 02-23-2021 take 1 tablet by mouth once daily Vitamin I68-Tndrd Acid Active 1 TABLET PO DAILY February 22, 2021 11:00pm Start: 02-23-2021 take 1 tablet by daniela th once daily Vitamin I41-Axffq Acid Active 1 TABLET PO DAILY February 23, 2021 12:00am Completed/Discontinued Medications Medication Drug Class(es) Dates Sig (Normalized) Sig (Original) acetaminophen 325 mg / oxyCODONE hydrochloride 5 mg oral tablet (20 sources) Opioid Agonist Start: 12-08-2022 End: 02-18-2023 Oxycodone-Acetamino phen 5-325 mg tablet Discontinued 1 {tbl} PO EVERY 6 HOURS NEEDED as needed for Pain 12 3 0 December 08, 2022 February 18, 2023 9:47am Cellulitis of face Cellulitis of face Start: 12-08-2022 End: 02-18-2023 take 1 tablet by mouth every six hours as needed Oxycodone-Acetaminophen Discontinued 1 TABLET PO EVERY 6 HOURS NEEDED 12 3 December 08, 2022 February 18, 2023 9:47am Start: 11-08-2022 take 1 tablet by daniela th every eight hours as needed for pain oxyCODONE-acetaminophen (PERCOCET) 5-325 mg tablet Indications: Postoperative pain Take 1 tablet by mouth every 8 hours as needed for pain. 10 tablet 11/08/2022 Active Start: 02-22-2022 End: 11-08-2022 take 1 tablet by mouth every six hours as needed for pain oxyCODONE-acetaminophen (PERCOCET) 5-325 mg tablet Indications: Postoperative pain Take 1 tablet by mouth every 6 hours as needed for pain. 25 tablet 02/22/2022 11/08/2022 Discontinued Start: 07-09-2018 End: 07-16-2018 Oxycodone-Acetaminophen 1 TA BLET tablet Discontinued 1 - 2 {tbl} PO EVERY 4 HOURS NEEDED as needed for Pain 60 7 0 July 09, 2018 1:00am July 15, 2018 1:00am July 16, 2018 1:09am External hemorrhoids Residual hemorrhoidal skin tags Start: 07-09-2018 End: 07-16-2018 take 1 tablet by mouth every four hours as needed Oxycodone-Acetaminophen Discontinued 1 - 2 TABLET PO EVERY 4 HOURS NEEDED 60 7 July 09, 2018 1:00am July 16, 2018 1:09am Start: 06-04-2018 End: 06-11-2018 Oxycodone-Acetaminophen 1 TA BLET tablet Discontinued 1 - 2 {tbl} PO EVERY 4 HOURS NEEDED as needed for Pain 60 7 0 June 04, 2018 1:00am June 10, 2018 1:00am June 11, 2018 1:11am Residual hemorrhoidal skin tags Start: 06-04-2018 End: 06-11-2018 take 1 tablet by mouth every four hours as needed Oxycodone-Acetaminophen Discontinued 1 - 2 TABLET PO EVERY 4 HOURS NEEDED 60 7 June 04, 2018 1:00am June 11, 2018 1:11am Comment on above: Take 1 tablet by daniela th every 6 hours as needed for pain. Take 1 tablet by daniela th every 8 hours as needed for pain. acyclovir 400 mg oral tablet (17 sources) Herpesvirus Nucleoside Analog DNA Polymerase Inhibitor, Herpes Simplex Virus Nucleoside Analog DNA Polymerase Inhibitor, Herpes Zoster Virus Nucleoside Analog DNA Polymerase Inhibitor Start: 04-04-20 18 End: 04-07-20 18 take 1 tablet by mouth three times daily Acyclovir (Zovirax) 400 MG tablet Discontinued 400 mg PO THREE TIMES A DAY April 04, 2018 12:00am April 07, 2018 5:08am prevention amoxicillin 500 mg oral tablet (7 sources) Penicillin-class Antibacterial Start: 08-26-19 End: 09-24-19 take 1 tablet by mouth every six hours Amoxicillin 500 mg tablet Discontinued 500 mg PO EVERY 6 HOURS 112 28 0 August 26, 2024 1:00am September 22, 2024 12:00am September 23, 2024 12:12am amoxicillin 875 mg / clavulanate 125 mg oral tablet (17 sources) Penicillin-class Antibacterial Start: 05-28-20 End: 06-07-20 Amoxicillin-Pot Clavulanate (Augmentin) 875-125 mg tablet Discontinued 1 {tbl} PO Q12H 20 10 0 May 28, 2021 1:00am June 06, 2021 1:00am June 07, 2021 1:01am Acute sinusitis, unspecified azithromycin 250 mg oral tablet (20 sources) Macrolide Antimicrobial Start: 02-09-20 22 End: 05-30-20 23 Azithromycin (Zithromax Z-Jose) 250 mg tablet Discontinued 0 PO .COMPLEX 6 0 February 18, 2023 12:00am May 30, 2023 10:35am For 250 mg dose pack: take 500 mg today (day 1), then 250 mg for 4 days (days 2-5) PO biotin 1 mg oral capsule (17 sources) Start: 04-26-20 End: 07-26-19 take 1 capsule by mouth once daily Biotin 1 mg Capsule Discontinued 1 mg PO DAILY April 26, 2021 12:00am July 26, 2021 2:12pm cephalexin 500 mg oral capsule (17 sources) Cephalosporin Antibacterial Start: 12-09-19 End: 02-19-20 take 1 capsule by mouth every six hours Cephalexin 500 mg capsule Discontinued 500 mg PO EVERY 6 HOURS 40 0 December 08, 2022 12:00am February 18, 2023 9:47am Start: 04-28-2012 take 1 capsule by mo uth four times daily at mealtime cephALEXin 500 mg capsule Take 1 capsule by mouth four times daily. With food 40 capsule 0 04/28/2012 Active Comment on above: Take 1 capsule by mo uth four times daily. With food clotrimazole 10 mg/ml vaginal cream (18 sources) Azole Antifungal Start: 12-09-2024 End: 12-16-2024 Clotrimazole (Clotrimazole-7) 1 % cream Discontinued 1 NMA VAGINAL AT BEDTIME 45 7 0 December 09, 2024 12:00am December 15, 2024 12:00am December 16, 2024 12:07am Candidiasis of vagina Acute candidiasis of vulva and vagina Start: 10-15-2024 End: 10-15-2024 Clotrimazole 2 % cream Disco ntinued 1 NMA VAGINAL AT BEDTIME 21 7 0 October 15, 2024 12:00am October 21, 2024 12:00am October 15, 2024 3:15pm Start: 10-15-2024 End: 10-22-2024 Clotrimazole (Clotrimazole-7 ) 1 % cream Discontinued 1 NMA VAGINAL AT BEDTIME 21 7 0 October 15, 2024 12:00am October 21, 2024 12:00am October 22, 2024 12:07am Start: 10-11-2024 End: 10-15-2024 Clotrimazole (Clotrimazole 3 Day) 2 % cream Discontinued 1 NMA VAGINAL AT BEDTIME 21 3 0 October 11, 2024 12:00am October 15, 2024 3:16pm Cranberry Vutx-W-Hghrqjxh Co ag (10 sources) Start: 04-04-2018 End: 05-22-2018 Cranberry Wowf-C-Zrxllcko Co ag Discontinued 1 EACH PO DAILY April 03, 2018 11:00pm May 22, 2018 1:20pm Start: 04-04-2018 End: 05-22-2018 Cranberry Qzsv-M-Hejybifj Co ag Discontinued 1 EACH PO DAILY April 04, 2018 12:00am May 22, 2018 2:20pm Cranberry Vkwb-F-Nblvpvdq Coag 1 EACH tablet (7 sources) Start: 04-04-2018 End: 05-22-2018 take 1 tablet by mouth once daily Cranberry Ejxz-D-Aiqlpown Coag 1 EACH tablet Discontinued 1 NMA PO DAILY April 04, 2018 12:00am May 22, 2018 2:20pm UTI prevention Start: 04-04-2018 End: 05-22-2018 take 1 tablet by mouth once daily Cranberry Cyqa-J-Npiljhov Coag 1 EACH tablet Discontinued 1 NMA PO DAILY April 04, 2018 12:00am May 22, 2018 2:20pm docusate sodium 100 mg oral capsule (20 sources) Start: 08-18-2023 End: 05-10-2024 take 1 capsule by mouth twice daily Docusate Sodium 100 mg capsule Discontinued 100 mg PO TWICE A DAY August 18, 2023 1:00am May 10, 2024 9:45am Start: 06-01-2020 End: 07-26-2021 take 1 capsule by mouth once daily Docusate Sodium (Dulcolax Stool Softener (Dss)) 100 mg capsule Discontinued 100 mg PO DAILY June 01, 2020 1:00am July 26, 2021 2:12pm stool softner Start: 06-04-2018 End: 09-27-2018 take 1 capsule by mouth twice daily Docusate Sodium 100 MG capsule Discontinued 100 mg PO TWICE A DAY 60 0 June 04, 2018 1:00am September 27, 2018 1:07pm drospirenone / Ethinyl Estradiol (4 sources) Progestin, Estrogen take 1 tablet by mouth once daily Drospirenone-Ethinyl Estradiol 3-20 mg-mcg ORAL per tablet one daily 0 Active Comment on above: one daily fluconazole 150 mg oral tablet (20 sources) Azole Antifungal Start: 024 End: 025 take 1 tablet by mouth once daily as needed Fluconazole 150 mg tablet Discontinued 150 mg PO DAILY as needed for YEAST June 04, 2024 1:00am August 06, 2024 10:44am take as needed for yeast infection Start: 11-14-2023 End: 02-19-2024 take 1 tablet by mouth once daily Fluconazole 150 mg tablet Discontinued 150 mg PO DAILY 1 07 13November 14, 2023 12:00am February 19, 2024 1:34pm Infection due to Streptococcus agalactiae Streptococcal infection, unspecified site Start: 02-18-2023 End: 08-18-2023 take 1 tablet by mouth once daily Fluconazole (Diflucan) 100 mg tablet Discontinued 100 mg PO DAILY 1 February 18, 2023 12:00am August 18, 2023 10:02am hydrocortisone acetate 30 mg rectal suppository (17 sources) Corticosteroid Start: 04-29-2021 End: 07-26-2021 Hydrocortisone Acetate 30 mg suppository Discontinued 30 mg RC TWICE A DAY 06 12April 29, 2021 12:00am July 26, 2021 2:12pm ibuprofen 800 mg oral tablet (4 sources) Nonsteroidal Anti-inflammatory Drug Start: 04-28-2012 take 1 tablet by mouth every eight hours as needed ibuprofen 800 mg tablet Take 1 tablet by mouth every 8 hours as needed (FOR PAIN. TAKE WITH FOOD). 20 tablet 0 04/28/2012 Active Comment on above: Take 1 tablet by daniela every 8 hours as needed (FOR PAIN. TAKE WITH FOOD). lubiprostone 0.024 mg oral capsule (20 sources) Chloride Channel Activator Start: 06-24-2024 End: 06-26-2024 take 1 capsule by mouth every other day Lubiprostone 24 mcg capsule Discontinued 24 ug PO .QOD June 24, 2024 10:26am June 26, 2024 1:59pm Start: 06-04-2024 End: 06-24-2024 take 1 capsule by mouth once daily Lubiprostone 24 mcg capsule Discontinued 24 ug PO DAILY June 04, 2024 1:00am June 24, 2024 10:27am Start: 04-23-2024 End: 05-10-2024 take 1 capsule by mouth once daily Lubiprostone 24 mcg capsule Discontinued 24 ug PO daily 90 1 April 23, 2024 12:00am May 10, 2024 9:45am Start: 09-14-2021 End: 10-08-2022 take 1 capsule by mouth once daily Lubiprostone (Amitiza) 24 mcg capsule Discontinued 24 ug PO DAILY 90 3 September 14, 2021 1:00am October 08, 2022 12:54pm Start: 07-20-2021 End: 02-18-2023 take 1 capsule by mouth twice daily Lubiprostone (Amitiza) 24 mcg capsule Discontinued 24 ug PO TWICE A DAY 60 0 October 08, 2022 12:53pm February 18, 2023 9:47am Magnesium (7 sources) Start: 01-30-2024 End: 03-21-2024 take 1 tablet by mouth once daily Magnesium 200 mg tablet Discontinued 200 mg PO DAILY January 30, 2024 12:00am March 21, 2024 2:04pm mecobalamin 1 mg chewable tablet (17 sources) Start: 07-06-2020 End: 08-12-2020 take 1 tablet by mouth once daily Mecobalamin (Vitamin B12) 1,000 MCG tablet,chewable Discontinued 1000 ug PO DAILY July 06, 2020 1:00am August 12, 2020 8:54am metroNIDAZOLE 500 mg oral tablet (20 sources) Nitroimidazole Antimicrobial Start: 06-28-2024 End: 07-05-2024 take 1 tablet by mouth twice daily Metronidazole 500 mg tablet Discontinued 500 mg PO TWICE A DAY 14 7 0 June 28, 2024 1:00am July 04, 2024 1:00am July 05, 2024 1:13am Start: 03-14-2024 End: 03-19-2024 Metronidazole 0.75 % (37.5mg /5 gram) gel Discontinued 1 NMA VAGINAL DAILY 70 5 0 March 14, 2024 12:00am March 18, 2024 12:00am March 19, 2024 12:04am Start: 03-14-2024 End: 03-19-2024 Metronidazole 0.75 % (37.5mg /5 gram) gel Discontinued 1 NMA VAGINAL DAILY 70 5 March 14, 2024 12:00am March 18, 2024 12:00am March 19, 2024 12:04am Start: 03-12-2024 End: 03-17-2024 Metronidazole (Metrogel) 1 % gel Discontinued 1 NMA TOPICAL AT BEDTIME 60 5 0 March 12, 2024 12:00am March 16, 2024 12:00am March 17, 2024 12:05am Multivitamin preparation (10 sources) Start: 07-26-2021 End: 08-18-2023 take 1 tablet by mouth once daily Multivitamin Discontinued 1 TABLET PO DAILY July 26, 2021 1:00am August 18, 2023 10:02am Start: 07-26-2021 End: 08-18-2023 take 1 tablet by mouth once daily Multivitamin Discontinued 1 TABLET PO DAILY July 26, 2021 12:00am August 18, 2023 9:02am Start: 07-26-2021 take 1 tablet by daniela th once daily Multivitamin Active 1 TABLET PO DAILY July 26, 2021 12:00am Start: 07-26-2021 take 1 tablet by daniela th once daily Multivitamin Active 1 TABLET PO DAILY July 26, 2021 1:00am Multivitamin tablet (7 sources) Start: 07-26-2021 End: 08-18-2023 Multivitamin tablet Discontinued 1 {tbl} PO DAILY July 26, 2021 1:00am August 18, 2023 10:02am nystatin [id number] unt/ml topical cream (14 sources) Polyene Antifungal Start: 05-10-2024 End: 06-24-2024 Nystatin 100,000 unit/gram cream Discontinued 1 NMA TOPICAL TWICE A DAY 30 4 May 10, 2024 12:00am June 24, 2024 10:27am Start: 01-01-2024 End: 01-08-2024 take 1 mL by mouth three times daily Nystatin 100,000 unit/mL suspension Discontinued 5 mL PO THREE TIMES A DAY 105 7 0 January 01, 2024 12:00am January 07, 2024 12:00am January 08, 2024 12:04am swish and swallow Nystatin 100,000 unit/gram powder (7 sources) Start: 06-24-2024 End: 12-18-2024 Nystatin 100,000 unit/gram p owder Discontinued 1 NMA TOPICAL .COMPLEX 30 0 June 24, 2024 1:00am June 26, 2024 1:59pm perianal yeast infection 1 applic topically TID to perianal region; Start: 06-24-2024 End: 06-26-2024 Nystatin 100,000 unit/gram p owder Discontinued 1 NMA TOPICAL .COMPLEX 30 June 24, 2024 1:00am June 26, 2024 1:59pm 1 applic topically TID to perianal region; ondansetron 4 mg oral tablet (20 sources) Serotonin-3 Receptor Antagonist Start: 08-21-2023 End: 03-19-2024 take 1 tablet by mouth three times daily Ondansetron Hcl 4 mg tablet Discontinued 4 mg PO THREE TIMES A DAY 30 3 August 21, 2023 1:00am March 19, 2024 4:16am Start: 12-08-2022 End: 02-18-2023 take 1 tablet by mouth every eight hours as needed for nausea Ondansetron 4 mg tablet,disintegrating Discontinued 4 mg PO EVERY 8 HOURS NEEDED as needed for Nausea 10 0 December 08, 2022 12:00am February 18, 2023 9:47am Start: 02-22-2022 End: 11-21-2022 take 1 tablet by mouth every eight hours as needed ondansetron (ZOFRAN) 4 mg tablet Take 1 tablet by mouth every 8 hours as needed for nausea/vomiting. 10 tablet 02/22/2022 11/21/2022 Discontinued Comment on above: Take 1 tablet by daniela every 8 hours as needed for nausea/vomiting. oxyCODONE hydrochloride 5 mg oral tablet (7 sources) Opioid Agonist Start: 06-11-20 End: 06-16-20 take 1 tablet by mouth twice daily as needed for pain Oxycodone 5 mg tablet Discontinued 5 mg PO TWICE A DAY as needed for pain 10 5 0 June 11, 2024 June 15, 2024 1:00am June 16, 2024 1:09am Hemorrhoids Unspecified hemorrhoids permethrin 50 mg/ml topical cream (11 sources) Pyrethroid Start: 05-30-20 End: 08-18-19 Permethrin 5 % cream Discontinued 1 NMA TOPICAL ONCE 60 0 May 30, 2023 1:00am August 18, 2023 10:03am apply 1/2 tube neck and below - leave on for 8 to 14 hrs before washing off; repeat with other 1/2 tube in 10-12 days Start: 05-30-2023 End: 08-18-2023 Permethrin Discontinued 1 AP PLIC TOPICAL ONCE 60 May 30, 2023 1:00am August 18, 2023 10:03am apply 1/2 tube neck and below - leave on for 8 to 14 hrs before washing off; repeat with other 1/2 tube in 10-12 days phentermine hydrochloride 37.5 mg oral tablet (17 sources) Sympathomimetic Amine Anorectic Start: 07-26-2021 End: 02-18-2023 Phentermine 37.5 mg tablet Discontinued 37.5 mg PO July 26, 2021 1:00am February 18, 2023 9:47am predniSONE 10 mg oral tablet (16 sources) Start: 07-20-2022 End: 10-08-2022 take 4 tablets by mouth once daily, then take 3 tablets by mouth once daily, then take 2 tablets by mouth once daily, then take 1 tablet by mouth once daily Prednisone 10 mg tablet Discontinued 10 mg PO As Directed 30 July 20, 2022 1:00am October 08, 2022 12:53pm 4 tablets daily x3 days, then 3 tablets daily x3 days, then 2 tablets daily x3 days, then 1 tablet daily x3 days One Daily Tablet (17 sources) Start: 01-06-2018 End: 07-26-2021 take 1 tablet by mouth once daily One Daily Tablet Discontinued 1 {tbl} PO DAILY January 06, 2018 12:00am July 26, 2021 2:12pm Start: 01-06-2018 End: 07-26-2021 take 1 tablet by mouth once daily One Daily Tablet Discontinued 1 {tbl} PO DAILY January 06, 2018 12:00am July 26, 2021 2:12pm Start: 01-06-2018 End: 07-26-2021 take 1 tablet by mouth once daily One Daily Tablet Discontinued 1 TABLET PO DAILY January 05, 2018 11:00pm July 26, 2021 1:12pm Start: 01-06-2018 End: 07-26-2021 take 1 tablet by mouth once daily One Daily Tablet Discontinued 1 TABLET PO DAILY January 06, 2018 12:00am July 26, 2021 2:12pm raNITIdine 150 mg oral tablet (17 sources) Histamine-2 Receptor Antagonist Start: 01-06-2018 End: 05-22-2018 take 1 tablet by mouth twice daily Ranitidine Hcl 150 MG tablet Discontinued 150 mg PO TWICE A DAY January 06, 2018 12:00am May 22, 2018 2:19pm heartburn 20 ml ropivacaine hydrochloride 5 mg/ml injection (1 source) Amide Local Anesthetic Start: 07-06-2022 End: 07-06-2022 ropivacaine (PF) 5 mg/mL (0.5 %) 8 mL injection (NAROPIN) Start: 07-06-2022 End: 07-06-2022 ropivacaine (PF) 5 mg/mL (0. 5 %) 8 mL injection (NAROPIN) terconazole 4 mg/ml vaginal cream (8 sources) Azole Antifungal Start: 10-23-2023 End: 10-30-2023 Terconazole 0.4 % cream Discontinued 1 NMA VAGINAL AT BEDTIME 45 7 0 October 23, 2023 12:00am October 29, 2023 12:00am October 30, 2023 12:05am Start: 10-23-2023 Terconazole Ac tive 1 APPFUL VAGINAL AT BEDTIME 45 7 October 23, 2023 12:00am topiramate 25 mg oral tablet (17 sources) Start: 09-01-2021 End: 02-18-2023 Topiramate 25 mg tablet Discontinued NMA PO September 01, 2021 1:00am February 18, 2023 9:48am Start: 09-01-2021 End: 02-18-2023 Topiramate Discontinued TAB PO September 01, 2021 1:00am February 18, 2023 9:48am 1 ml triamcinolone acetonide 40 mg/ml injection (1 source) Corticosteroid Start: 07-06-2022 End: 07-06-2022 triamcinolone acetonide 80 mg injection (KeNALog 40) Start: 07-06-2022 End: 07-06-2022 triamcinolone acetonide 80 m g injection (KeNALog 40) Vitamin U69-Fjvpt Acid 1-0.8 mg Tablet (7 sources) Start: 02-23-2021 End: 06-04-2024 Vitamin Y60-Dsdnt Acid 1-0.8 mg Tablet Discontinued 1 {tbl} PO DAILY February 23, 2021 12:00am June 04, 2024 4:15pm Problems Active Problems Problem Classification Problem Date Documented Da te Episodic/Chronic Abdominal hernia (17 sources) Umbilical hernia; Translations: [Umbilical hernia without obstruction or gangrene] 01-14-2021 Episodic Abdominal pain (20 sources) Abdominal pain; Translations: [Unspecified abdominal pain] Onset: 5 07-08-2024 Episodic Allergic reactions (19 sources) Allergic disorder of skin; Translations: [Allergic contact dermatitis, unspecified cause] 07-20-2022 Episodic Anal and rectal conditions (20 sources) Anal fissure; Translations: [Anal fissure, unspecified] Onset: 5 08-12-2020 Episodic Deficiency and other anemia (20 sources) Chronic anemia; Translations: [Anemia, unspecified] 04-23-2024 Episodic Deficiency and other anemia (1 source) Anemia, unspecified; Translations: [Anemia, unspecified] Onset: Episodic Diabetes or abnormal glucose tolerance complicating ; childbirth; or the puerperium (6 sources) Abnormal glucose level; Translations: [Abnormal glucose complicating ] 12-26-2024 Episodic Comment on above: needs 3 hour Gastrointestinal hemorrhage (20 sources) Lower gastrointestinal hemorrhage; Translations: [Gastrointestinal hemorrhage, unspecified] 03-29-2021 Episodic Hemorrhage during ; abruptio placenta; placenta previa (12 sources) Bleeding from female genital tract during ; Translations: [Antepartum hemorrhage, unspecified, unspecified trimester] Onset: 5 10-11-2024 Episodic Hemorrhoids (20 sources) Hemorrhoids; Translations: [Unspecified hemorrhoids] Onset: 4 09-07-2007 Episodic Hypertension complicating ; childbirth and the puerperium (7 sources) Hypertension complicating ; Translations: [Unspecified maternal hypertension, third trimester] 02-22-2024 Chronic Comment on above: repeat bp in office WNL. preeclampsia labs done in triage 02/19- tamara hurst fu in office to monitor bps and follow to see if recurrent elevation Hypertension complicating ; childbirth and the puerperium (20 sources) -induced hypertension; Translations: [Gestational [-induced] hypertension without significant proteinuria, unspecified trimester] Onset: 4 03-20-2024 Episodic Comment on above: resolved pp Mycoses (20 sources) Perianal candidiasis; Translations: [Other sites of candidiasis] Onset: 5 06-24-2024 Episodic Noninfectious gastroenteritis (20 sources) Lymphocytic colitis; Translations: [Lymphocytic colitis] Onset: 4 Chronic Other aftercare (1 source) Surgical follow-up; Translations: [Encounter for follow-up examination after completed treatment for conditions other than malignant neoplasm] Episodic Other complications of (20 sources) Maternal obesity complicating , childbirth and the puerperium, antepartum; Translations: [Obesity complicating , unspecified trimester] 08-06-2024 Chronic Comment on above: HgbA1c Other complications of (1 source) Obesity complicating , unspecified trimester; Translations: [Obesity complicating , unspecified trimester] Onset: 5 Chronic Other complications of (20 sources) H/O: miscarriage; Translations: [Supervision of with other poor reproductive or obstetric history, unspecified trimester] 08-18-2023 Episodic Other complications of (12 sources) Multigravida of advanced maternal age; Translations: [Supervision of elderly multigravida, unspecified trimester] 08-21-2023 Episodic Comment on above: nipt low risk. plan q 4 week growth US per MFM 38%, 63% Other complications of (20 sources) High risk ; Translations: [Supervision of high risk , unspecified, unspecified trimester] 08-18-2023 Episodic Comment on above: PRR,, RAMSES 5, boy,PC Lakisha Underwood & Earnestine(Twins), Elaine Santi be 39 weeks on Elaine's -. requests IOL on this day. PRR, , RAMSES ,surprise PC Lakisha Martin, Abran Alvarez Other complications of (20 sources) History of pre-eclampsia; Translations: [Supervision of with other poor reproductive or obstetric history, unspecified trimester] 08-21-2023 Episodic Comment on above: Baseline labs ordere d with NOB labs Other complications of (5 sources) Supervision of elderly multigravida, unspecified trimester; Translations: [Elderly multigravida, unspecified as to episode of care or not applicable] 08-21-2023 Episodic Other complications of (11 sources) Supervision of with other poor reproductive or obstetric history, unspecified trimester; Translations: [Supervision of high-risk with history of ] Onset: 4 08-21-2023 Episodic Other complications of (6 sources) Supervision of high risk , unspecified, unspecified trimester; Translations: [Supervision of unspecified high-risk ] Onset: 5 08-21-2023 Episodic Other complications of (20 sources) Advanced maternal age ; Translations: [Elderly multigravida, unspecified as to episode of care or not applicable] 08-06-2024 Episodic Other complications of (20 sources) Complication occurring during ; Translations: [Supervision of other high risk pregnancies, first trimester] 08-13-2024 Episodic Comment on above: baby 4 months old wh en became with this gestation. Other complications of (1 source) Supervision of other high risk pregnancies, first trimester; Translations: [Supervision of other high risk pregnancies, first trimester] Onset: 5 Episodic Other complications of (1 source) Supervision of elderly multigravida, first trimester; Translations: [Supervision of elderly multigravida, first trimester] Onset: 5 Episodic Other connective tissue disease (8 sources) Iliotibial band friction syndrome of right knee; Translations: [Iliotibial band syndrome, right leg] Episodic Other connective tissue disease (17 sources) Trochanteric bursitis; Translations: [Trochanteric bursitis, right hip] 07-26-2021 Episodic Other connective tissue disease (1 source) Pain of right calf; Translations: [Pain in right lower leg] Episodic Other connective tissue disease (1 source) Pain in left lower leg; Translations: [Pain of left calf] Onset: 3 Episodic Other connective tissue disease (1 source) Pain of left calf; Translations: [Pain in left lower leg] 05-12-2023 Episodic Other female genital disorders (10 sources) Retroverted uterus; 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 uterus] 08-18-2023 Episodic Other female genital disorders (4 sources) Malposition of uterus; 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 uterus] 08-21-2023 Episodic Other female genital disorders (20 sources) Cyst of vulva; Translations: [Vulvar cyst] 08-26-2024 Episodic Comment on above: +actinomycis:4 wk of amoxil Other female genital disorders (10 sources) Vaginal discharge; Translations: [Other specified noninflammatory disorders of vagina] 08-06-2024 Episodic Other female genital disorders (1 source) Vulvar cyst; Translations: [Vulvar cyst] Onset: 5 Episodic Other gastrointestinal disorders (17 sources) Chronic constipation; Translations: [Other constipation] 01-13-2021 Episodic Other gastrointestinal disorders (10 sources) Constipation; Translations: [Constipation, unspecified] 05-11-2021 Episodic Other gastrointestinal disorders (4 sources) Other constipation; Translations: [Constipation, unspecified] 08-21-2023 Episodic Other infections; including parasitic (1 source) Infestation by Sarcoptes scabiei osito hominis; Translations: [Scabies] 05-30-2023 Episodic Other infections; including parasitic (1 source) Scabies; Translations: [Scabies] 05-30-2023 Episodic Other non-traumatic joint disorders (5 sources) Hip pain; Translations: [Pain in unspecified hip] Episodic Other non-traumatic joint disorders (1 source) Pain in left hip; Translations: [Pain in left hip] Onset: 3 Episodic Other nutritional; endocrine; and metabolic disorders (13 sources) Obesity; Translations: [Other obesity due to excess calories] Onset: 2 02-07-2022 Chronic Other nutritional; endocrine; and metabolic disorders (4 sources) Obesity caused by energy imbalance; Translations: [Other obesity due to excess calories] Onset: 2 02-07-2022 Chronic Other and delivery including normal (20 sources) Dichorionic diamniotic twin ; Translations: [Twin , dichorionic/diamniotic , unspecified trimester] Onset: 4 07-31-2020 Episodic Comment on above: JV Elaine NIPT low risk nl anatomy, NIPT low risk. DOC ONLY delivery NIPT low risk, anato my needs f/u views. Other screening for suspected conditions (not mental disorders or infectious disease) (1 source) Encounter for screening for diabetes mellitus; Translations: [Encounter for screening for diabetes mellitus] Onset: 5 Episodic Other skin disorders (3 sources) Rash and other nonspecific skin eruption; Translations: [Rash and other nonspecific skin eruption] 07-20-2022 Episodic Other upper respiratory disease (17 sources) Respiratory tract congestion; Translations: [Nasal congestion] 12-01-2020 Episodic Other upper respiratory infections (20 sources) Upper respiratory infection; Translations: [Acute upper respiratory infection, unspecified] 05-28-2021 Episodic Otitis media and related conditions (17 sources) Acute left otitis media; Translations: [Otitis media, unspecified, left ear] 05-28-2021 Episodic Prolapse of female genital organs (20 sources) Instability of pelvic floor; 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] Onset: 5 05-10-2024 Chronic Residual codes; unclassified (1 source) Pain; Translations: [Pain, unspecified] Episodic Residual codes; unclassified (7 sources) Gestation period, 35 weeks; Translations: [35 weeks gestation of ] 02-22-2024 Episodic Residual codes; unclassified (20 sources) H/O: ; Translations: [Personal history of other complications of , childbirth and the puerperium] 08-06-2024 Episodic Comment on above: Fraternal Residual codes; unclassified (1 source) Personal history of other complications of , childbirth and the puerperium; Translations: [Personal history of other complications of , childbirth and the puerperium] Onset: 5 Episodic Residual codes; unclassified (1 source) 16 weeks gestation of ; Translations: [16 weeks gestation of ] Onset: 5 Episodic Skin and subcutaneous tissue infections (13 sources) Cellulitis of face; Translations: [Cellulitis of face] 12-08-2022 Episodic Spondylosis; intervertebral disc disorders; other back problems (1 source) Dorsalgia, unspecified; Translations: [Backache, unspecified] Episodic Sprains and strains (1 source) Strain of calf muscle; Translations: [Strain of other muscle(s) and tendon(s) at lower leg level, left leg, initial encounter] 05-12-2023 Episodic Unclassified (1 source) Acute candidiasis of vulva and vagina; Translations: [Acute candidiasis of vulva and vagina] Onset: Past or Other Problems Problem Classification Problem Date Documented Da te Episodic/Chronic Bacterial infection; unspecified site (1 source) Streptococcal infection, unspecified site; Translations: [Streptococcal infection, unspecified site] Onset: 05-10-2024 Episodic Early or threatened labor (1 source) False labor, unspecified; Translations: [False labor, unspecified] Onset: 03-12-2024 Episodic Genitourinary symptoms and ill-defined conditions (2 sources) Urgency of urination; Translations: [Dysuria] Onset: 10-07-2024 Episodic Immunizations and screening for infectious disease (1 source) Encounter for immunization; Translations: [Encounter for immunization] Onset: 01-15-2024 Episodic Other and unspecified benign neoplasm (20 sources) Melanocytic nevus of trunk; Translations: [Melanocytic nevi of trunk] Onset: 08-30-2010 08-30-2010 Episodic Other complications of (1 source) Supervision of elderly multigravida, third trimester; Translations: [Supervision of elderly multigravida, third trimester] Onset: 04-12-2024 Episodic Other complications of (2 sources) Supervision of high risk , unspecified, second trimester; Translations: [Supervision of high risk , unspecified, second trimester] Onset: 03-14-2024 Episodic Other complications of (2 sources) Supervision of elderly multigravida, second trimester; Translations: [Supervision of elderly multigravida, second trimester] Onset: 02-13-2024 Episodic Other complications of (1 source) Supervision of high risk , unspecified, third trimester; Translations: [Supervision of high risk , unspecified, third trimester] Onset: 03-13-2024 Episodic Other complications of (1 source) Other specified related conditions, unspecified trimester; Translations: [Other specified related conditions, unspecified trimester] Onset: 01-25-2024 Episodic Other connective tissue disease (12 sources) Trochanteric bursitis of right hip; Translations: [Trochanteric bursitis, right hip] Onset: 02-22-2022 Resolved: 02-22-2022 Episodic Other connective tissue disease (3 sources) Trochanteric bursitis, right hip; Translations: [Enthesopathy of hip region] Onset: 09-16-2022 Episodic Other connective tissue disease (1 source) Iliotibial band syndrome, right leg; Translations: [Iliotibial band syndrome of right side] Onset: 09-16-2022 Episodic Other connective tissue disease (3 sources) Iliotibial band friction syndrome; Translations: [Iliotibial band syndrome, unspecified leg] Onset: 02-07-2022 Resolved: 02-22-2022 02-22-2022 Episodic Other female genital disorders (1 source) Other specified noninflammatory disorders of vagina; Translations: [Other specified noninflammatory disorders of vagina] Onset: 09-26-2024 Episodic Other female genital disorders (1 source) Other specified conditions associated with female genital organs and menstrual cycle; Translations: [Other specified conditions associated with female genital organs and menstrual cycle] Onset: 06-26-2024 Episodic Other gastrointestinal disorders (2 sources) Constipation, unspecified; Translations: [Constipation, unspecified] Onset: 07-30-2024 Episodic Other nervous system disorders (1 source) Other acute postprocedural pain; Translations: [Postoperative pain] Onset: 11-08-2022 Episodic Other non-traumatic joint disorders (1 source) Pain in right hip; Translations: [Pain in right hip] Onset: 07-06-2022 Episodic Other skin disorders (20 sources) Scar; Translations: [Scar conditions and fibrosis of skin] Onset: 08-30-2010 08-30-2010 Episodic Other skin disorders (20 sources) Hypertrophic scar; Translations: [Hypertrophic scar] Onset: 08-30-2010 08-30-2010 Episodic Residual codes; unclassified (1 source) 15 weeks gestation of ; Translations: [15 weeks gestation of ] Onset: 10-07-2024 Episodic Residual codes; unclassified (1 source) 9 weeks gestation of ; Translations: [9 weeks gestation of ] Onset: 08-26-2024 Episodic Residual codes; unclassified (1 source) 38 weeks gestation of ; Translations: [38 weeks gestation of ] Onset: 04-12-2024 Episodic Residual codes; unclassified (2 sources) 34 weeks gestation of ; Translations: [34 weeks gestation of ] Onset: 02-13-2024 Episodic Residual codes; unclassified (1 source) 32 weeks gestation of ; Translations: [32 weeks gestation of ] Onset: 01-30-2024 Episodic Residual codes; unclassified (1 source) 29 weeks gestation of ; Translations: [29 weeks gestation of ] Onset: 01-15-2024 Episodic Results Test Name Value Interpretation Reference Range Facility Workers' Compensation Magistrate Office Visit Reporton 01-03-2025 Workers' Compensation Magistrate Office Visit Report Normal [facility] Absolute lymphocyte countOrd ered By: Reina Heather on 12-26-2024 Lymphocytes Auto (Unsp spec) [#/Vol] 1.32 10*3/uL 0.83-4.51 [facility] Absolute neutrophil countOrd ered By: Reina Romero on 12-26-2024 Neutrophils (Bld) [#/Vol] 5.7 10*3/uL 2.0-7.7 [facility] Automated lymphocyte count a s percentage of total leukocytesOrdered By: Reina Romero on 12-26-2024 Lymphocytes/100 WBC Auto (Unsp spec) 17.4 % Low 19-41 [facility] Basophil percentageOrdered B y: Reina Heather on 12-26-2024 Basophils/100 WBC (Bld) 0.4 % 0-1 [facility] CBC W/Diff, Automatedon 12-08 Absolute Lymph 1.32 X10 3/uL Normal 0.83-4.51 [facility] Comment on above: Performed By: #### L 501.0250, L100.0100, [id number], [id number] ####[facility] [address] [place], [place], [id number] Absolute Neut 5.7 X10 3/uL Normal 2.0-7.7 [facility] Comment on above: Performed By: #### L [id number], L100.0100, [id number], [id number] ####[facility] [facility] [address] [place], [address] Basophils/100 WBC (Bld) 0.4 % Normal 0-1 [facility] Comment on above: Performed By: #### L 501.0250, L100.0100, L3890.6006, L509.8002 ####[facility] [address] [place], [address] Eosinophils/100 WBC (Bld) 2.9 % Normal 0-5 [facility] Comment on above: Performed By: #### L 501.0250, L100.0100, L3890.6006, L509.8002 ####[facility] [address] [place], [address] Erythrocyte distribution width (RBC) [Ratio] 12.7 % Normal 11.6-14.6 [facility] Comment on above: Performed By: #### L 501.0250, L100.0100, L3890.6006, L509.8002 ####[facility] [address] [place], [address] Hematocrit (Bld) [Volume fraction] 33.8 % Low 37-47 [facility] Comment on above: Performed By: #### L 501.0250, L100.0100, L3890.6006, L509.8002 ####[facility] [address] [place], [address] Hemoglobin (Bld) [Mass/Vol] 11.8 g/dL Low 12.0-15.0 [facility] Comment on above: Performed By: #### L 501.0250, L100.0100, L3890.6006, L509.8002 ####[facility] [address] [place], [address] IG% 0.400 Normal 0.0-0.9 [facility] Comment on above: Result Comment: IG% - Immature Granulocytes (promyelocytes, myelocytes andmetamyelocytes) > 1% indicates that a LEFT SHIFT is Present. Performed By: #### L 501.0250, L100.0100, L3890.6006, L509.8002 ####[facility] [address] [place], [address] Lymphocytes/100 WBC (Bld) 17.4 % Low 19-41 [facility] Comment on above: Performed By: #### L 501.0250, L100.0100, L3890.6006, L509.8002 ####[facility] [address] [place], [address] MCH (RBC) [Entitic mass] 30.6 pg Normal 27.0-32.0 [facility] Comment on above: Performed By: #### L 501.0250, L100.0100, L3890.6006, L509.8002 ####[facility] [address] [place], [address] MCHC (RBC) [Mass/Vol] 34.9 g/dL Normal 32-36 [facility] Comment on above: Performed By: #### L 501.0250, L100.0100, L3890.6006, L509.8002 ####[facility] [address] [place], [address] MCV (RBC) [Entitic vol] 87.8 fL Normal 81-99 [facility] Comment on above: Performed By: #### L 501.0250, L100.0100, L3890.6006, L509.8002 ####[facility] [address] [place], [address] Monocytes/100 WBC (Bld) 3.8 % Normal 0-10 [facility] Comment on above: Performed By: #### L 501.0250, L100.0100, L3890.6006, L509.8002 ####[facility] [address] [place], [address] Neutrophils/100 WBC (Bld) 75.1 % High 47-70 [facility] Comment on above: Performed By: #### L 501.0250, L100.0100, L3890.6006, L509.8002 ####[facility] [address] [place], [address] Nucleated RBC (Bld) [#/Vol] 0 10*3/uL Normal 0-5 [facility] Comment on above: Performed By: #### L 501.0250, L100.0100, L3890.6006, L509.8002 ####[facility] [address] [place], [address] Platelet mean volume (Bld) [Entitic vol] 9.9 fL Normal 6.2-12.0 [facility] Comment on above: Performed By: #### L 501.0250, L100.0100, L3890.6006, L509.8002 ####[facility] [address] [place], [address] Platelets (Bld) [#/Vol] 196 10*3/uL Normal 150-450 [facility] Comment on above: Performed By: #### L 501.0250, L100.0100, L3890.6006, L509.8002 ####[facility] [address] [place], [address] RBC (Bld) [#/Vol] 3.85 10*6/uL Low 4.2-5.4 [facility] Comment on above: Performed By: #### L 501.0250, L100.0100, L3890.6006, L509.8002 ####[facility] [address] [place], [address] RDW SD 40.8 fl Normal 35.1-43.9 [facility] Comment on above: Performed By: #### L 501.0250, L100.0100, L3890.6006, L509.8002 ####[facility] [address] [place], [place], [id number] WBC (Bld) [#/Vol] 7.6 10*3/uL Normal 4.4-11.0 [facility] Comment on above: Performed By: #### L 501.0250, L100.0100, L3890.6006, L509.8002 ####[facility] [address] [place], [address] Eosinophil percentageOrdered By: Reina Romero on 12-26-2024 Eosinophils/100 WBC (Bld) 2.9 % 0-5 [facility] Erythrocyte distribution wid th ratioOrdered By: Reina Romero on 12-26-2024 Erythrocyte distribution width (RBC) [Ratio] 12.7 % 11.6-14.6 [facility] Erythrocyte distribution wid th standard deviationOrdered By: Reina Romero on 12-26-2024 Erythrocyte distribution width (RBC) [Ratio] 40.8 fl 35.1-43.9 [facility] Glucose Challenge Gest 1H 50 katharine 12-26-2024 GLU GEST 50g 1H 138 mg/dL Normal 70-140 [facility] Comment on above: Performed By: #### L 501.0250, L100.0100, L3890.6006, L509.8002 ####[facility] [address] [place], [address] Glucose measurement at 2 fahad rs post-dose gestational glucose tolerance testOrdered By: Reina Romero on 12-26-2024 Glucose [Mass/Vol] 138 mg/dL 70-140 [facility] HIVon 12-26-2024 HIV Non-Reactive Normal Nonreactive [facility] Comment on above: Result Comment: Non- ReactiveReactiveRepeatedly reactive samples must be confirmed according [facility] recommended confirmatory algorithms. The subresults foreither HIVAG or AHIV can be used as an aid in the selectionof the confirmation algorithm for reactive samples.Send out specimens with Reactive results to [facility] forconfirmation.Order the HIV antibody detection and differentiation:lc#[id number] Performed By: #### L 501.0250, L100.0100, L3890.6006, L509.8002 ####[facility] [address] [place], [address] Hematocrit Auto (Bld) [Volum e fraction]Ordered By: Reina Romero on 12-26-2024 Hematocrit (Bld) [Volume fraction] 33.8 % Low 37-47 [facility] Hemoglobin measurementOrdere d By: Reina Romero on 12-26-2024 Hemoglobin (Bld) [Mass/Vol] 11.8 g/dL Low 12.0-15.0 [facility] Immature granulocytes/100 WB C Auto (Bld)Ordered By: Reina Romero on 12-26-2024 Immature granulocytes/100 WBC (Bld) 0.400 % 0.0-0.9 [facility] Comment on above: IG% - Immature Granu locytes (promyelocytes, myelocytes and metamyelocytes) > 1% indicates that a LEFT SHIFT is Present. MCV (mean corpuscular volume ) determinationOrdered By: Reina Romero on 12-26-2024 MCV (RBC) [Entitic vol] 87.8 fL 81-99 [facility] Mean corpuscular hemoglobin (MCH) determinationOrdered By: Reina Romero on 12-26-2024 MCH (RBC) [Entitic mass] 30.6 pg 27.0-32.0 [facility] Mean corpuscular hemoglobin concentration (MCHC) determinationOrdered By: Reina Romero on 12-26-2024 MCHC (RBC) [Mass/Vol] 34.9 g/dL 32-36 [facility] Mean platelet volume determi nationOrdered By: Reina Romero on 12-26-2024 Platelet mean volume (Bld) [Entitic vol] 9.9 fL 6.2-12.0 [facility] Monocyte percentageOrdered B y: Reina Romero on 12-26-2024 Monocytes/100 WBC (Bld) 3.8 % 0-10 [facility] Neutrophil percentageOrdered By: Reina Romero on 12-26-2024 Neutrophils/100 WBC (Bld) 75.1 % High 47-70 [facility] No Panel InformationOrdered By: Reina Romero on 12-26-2024 HIV (1&2) Antibody Non-Reactive Nonreactive [facility] Comment on above: Non-ReactiveReactive Repeatedly reactive samples must be confirmed according to CDC recommended confirmatory algorithms. The subresults for either HIVAG or AHIV can be used as an aid in the selection of the confirmation algorithm for reactive samples.Send out specimens with Reactive results to [facility] for confirmation.Order the HIV antibody detection and differentiation: #[id number] Nucleated red blood cell per centageOrdered By: Reina Romero on 12-26-2024 Nucleated RBC/100 WBC (Bld) [Ratio] 0 % 0-5 [facility] Platelet countOrdered By: Wade Romero on 12-26-2024 Platelets (Bld) [#/Vol] 196 10*3/uL 150-450 [facility] RBC Auto (Bld) [#/Vol]Ordere d By: Reina Romero on 12-26-2024 RBC (Bld) [#/Vol] 3.85 10*6/uL Low 4.2-5.4 [facility] Syphilis Antibodieson 2024 Syphilis Abs Non-Reactive Normal Nonreactive [facility] Comment on above: Performed By: #### L 501.0250, L100.0100, L3890.6006, L509.8002 ####[facility] [address] [place], [address] White blood cell (WBC) count Ordered By: Reina Romero on 12-26-2024 WBC (Bld) [#/Vol] 7.6 10*3/uL 4.4-11.0 [facility] Laboratory - Chemistry and C hemistry - challengeOrdered By: Reina Romero on 12-04-2024 Glucose Ql (U) Negative [facility] Laboratory - UrinalysisOrder ed By: Reina Romero on 12-04-2024 Protein Ql (U) Negative [facility] Workers' Compensation Magistrate Office Visit Reporton 12-04-2024 Workers' Compensation Magistrate Office Visit Report Normal [facility] Laboratory - Chemistry and C hemistry - challengeOrdered By: Piedad Moreno on 11-07-2024 Glucose Ql (U) Negative [facility] Laboratory - UrinalysisOrder ed By: Piedad Moreno on 11-07-2024 Protein Ql (U) Negative [facility] Workers' Compensation Magistrate Office Visit Reporton 11-07-2024 Workers' Compensation Magistrate Office Visit Report Normal [facility] Genital Culture Comprehensiv coleman 10-18-2024 VAC Reason for Exam: pelvic cramping No Gardnerella, Neisseria or beta-hemolytic Streptococcus isolated. Presumptive C albicans Amount Growth 3+ Normal [facility] Comment on above: Performed By: #### M 100.3200, M1, ####[facility] [address] [place], [place], [address] Urine Cultureon 10-17-2024 URC Below infection level. Mixed Gram Positive Organisms [place] Count 1000-10,000 MIXC Mixed contaminants. Submit a new specimen if indicated. Normal [facility] Comment on above: Performed By: #### M 100.3200, M1.1999, ####[facility] [address] [place], [place], [address] Gram Stainon 10-15-2024 GS Reason for Exam: pelvic cramping Gram Stain Rare Yeast Like Organisms 4+ Gram positive rods No White Blood Cells No Gram negative diplococci Score = 0 Interpretation: 0-3 Normal, 4-6 Intermediate, 7-10 Positive BV Normal [facility] Comment on above: Performed By: #### M 100.3200, M1.1999, ####[facility] [address] [place], [address] Gram stainOrdered By: Piedad Moreno on 10-15-2024 Microscopic observation Gram stain Nom (Unsp spec) [facility] Laboratory - Chemistry and C hemistry - challengeOrdered By: Piedad Moreno on 10-15-2024 Glucose Ql (U) Negative [facility] Laboratory - UrinalysisOrder ed By: Piedad Moreno on 10-15-2024 Protein Ql (U) Negative [facility] Workers' Compensation Magistrate Office Visit Reporton 10-15-2024 Workers' Compensation Magistrate Office Visit Report Normal [facility] Urine cultureOrdered By: Chin Moreno on 10-15-2024 Bacteria identified Cx Nom (U) Positive Abnormal [facility] Bilirubin Test strip Ql (U)O rdered By: Mary Jane Wade on 10-11-2024 Bilirubin Ql (U) Negative Negative [facility] Emergency Department Summary on 10-11-2024 Emergency Department Summary Normal [facility] Epithelial cells.squamous LM Ql (Urine sed)Ordered By: Mary Jane Wade on 10-11-2024 Epithelial cells.squamous LM.HPF (Urine sed) [#/Area] 0 /[HPF] 5-10 [facility] Glucose Ql (U)Ordered By: Sidney Wade on 10-11-2024 Urine Glucose (UA) Normal mg/dl Normal [facility] Ketones Test strip Ql (U)Ord ered By: Mary Jane Wade on 10-11-2024 Ketones Ql (U) Negative Negative [facility] Microscopic analysis of urin e for red blood cells (RBC)Ordered By: Mary Jane Wade on 10-11-2024 Microscopic analysis of urine for red blood cells (RBC) 0-5 SEEN /hpf 0-5 [facility] Urine RBC 0-5 SEEN /hpf 0-5 [facility] Mucus LM Ql (Urine sed)Order ed By: Mary Jane Wade on 10-11-2024 Mucus Ql (Urine sed) 0 SEEN /hpf [facility] Nitrite Test strip Ql (U)Ord ered By: Mary Jane Wade on 10-11-2024 Nitrite Ql (U) Negative Negative [facility] Protein Test strip Ql (U)Ord ered By: Mary Jane Wade on 10-11-2024 Protein Ql (U) Negative Negative [facility] Squamous epithelial cells de tection in urine sediment by light microscopyOrdered By: Mary Jane Wade on 10-11-2024 Epithelial cells.squamous LM Ql (Urine sed) 0-5 SEEN /hpf 5-10 [facility] Transvaginal w/Preg USon Transvaginal w/Preg US Normal [facility] Urinalysis, Completeon 10-11 EPI,SQUAMOUS 0-5 SEEN Normal 5-10 [facility] Comment on above: Order Comment: LUCRECIA CTOR TO SPECIFY Performed By: #### L 400.0001 ####[facility] [address] [facility] [address] RBC 0-5 SEEN Normal 0-5 [facility] Comment on above: Order Comment: LUCRECIA CTOR TO SPECIFY Performed By: #### L 400.0001 ####[facility] [address] [facility] [address] WBC 0-5 SEEN Normal 0-5 [facility] Comment on above: Order Comment: LUCRECIA CTOR TO SPECIFY Performed By: #### L 400.0001 ####[facility] [address] [place], [address] BACTERIA 0 SEEN Normal None Seen [facility] Comment on above: Order Comment: LUCRECIA CTOR TO SPECIFY Performed By: #### L 400.0001 ####[facility] [address] [place], [address] Mucus Ql (Urine sed) [address] [facility] Comment on above: Order Comment: LUCRECIA CTOR TO SPECIFY Performed By: #### L 400.0001 ####[facility] [address] [place] [id number] Urine blood detectionOrdered By: Mary Jane Wade on 10-11-2024 Urine Occult Blood 25 /ul High Negative [facility] Urine clarityOrdered By: Ellyn Wade on 10-11-2024 Clarity (U) Sl. Cloudy Clear [facility] Urine color determinationOrd ered By: Mary Jane Wade on 10-11-2024 Color (U) Yellow Yellow [facility] Urine glucose detectionOrder ed By: Mary Jane Wade on 10-11-2024 Glucose Ql (U) Normal mg/dl Normal [facility] Urine leukocyte esterase det ection by dipstickOrdered By: Mary Jane Wade on 10-11-2024 Leukocyte esterase Test strip Ql (U) 25 /ul High Negative [facility] Urine pHOrdered By: Mary Jane neal on 10-11-2024 pH (U) 6.0 [pH] 5.0 - 8.0 [facility] Urine sediment bacteria coun t by microscopy (number/high power field)Ordered By: Mary Jane Wade on 10-11-2024 Bacteria LM.HPF (Urine sed) [#/Area] 0 /[HPF] None Seen [facility] Urine specific gravity measu rementOrdered By: Mary Jane Wade on 10-11-2024 Specific gravity (U) [Rel density] 1.015 1.002-1.030 [facility] Urine urobilinogen measureme ntOrdered By: Mary Jane Wade on 10-11-2024 Urobilinogen Ql (U) Normal mg/dl Normal [facility] Urobilinogen Ql (U)Ordered B y: Mary Jane Wade on 10-11-2024 Urine Urobilinogen Normal mg/dl Normal [facility] White blood cell countOrdere d By: Mary Jane Wade on 10-11-2024 Urine WBC 0-5 SEEN /hpf 0-5 [facility] White blood cell count 0-5 SEEN /hpf 0-5 [facility] Laboratory - Chemistry and C hemistry - challengeOrdered By: Lawson Parry on 10-07-2024 Bilirubin Ql (U) Negative [facility] Glucose Ql (U) Negative [facility] Ketones Ql (U) Negative [facility] pH (U) 5 [pH] [facility] Specific gravity (U) [Rel density] 1.015 [facility] Urobilinogen (U) [Mass/Vol] Negative [facility] Laboratory - Hematology and Cell countsOrdered By: Lawson Parry on 10-07-2024 Hemoglobin Ql (U) Negative [facility] Laboratory - Specimen inform ationOrdered By: Lawson Parry on 10-07-2024 Clarity (U) Clear [facility] Color (U) Yellow [facility] Laboratory - UrinalysisOrder ed By: Lawson Parry on 10-07-2024 Nitrite Ql (U) Negative [facility] Protein Ql (U) Negative [facility] No Panel InformationOrdered By: Lawson Parry on 10-07-2024 Urine Leukocytes Negatve [facility] Urine Non-Hemolyzed Blood Negative [facility] Workers' Compensation Magistrate Office Visit Reporton 10-07-2024 Workers' Compensation Magistrate Office Visit Report Normal [facility] Absolute lymphocyte countOrd ered By: Reina Romero on 09-10-2024 Lymphocytes Auto (Unsp spec) [#/Vol] 1.58 10*3/uL 0.83-4.51 [facility] Absolute neutrophil countOrd ered By: Reina Romero on 09-10-2024 Neutrophils (Bld) [#/Vol] 5.1 10*3/uL 2.0-7.7 [facility] Anion gap in Serum or Plasma Ordered By: Reina Romero on 09-10-2024 Anion gap [Moles/Vol] 13 mmol/L 5-15 [facility] Automated lymphocyte count a s percentage of total leukocytesOrdered By: Reina Romero on 09-10-2024 Lymphocytes/100 WBC Auto (Unsp spec) 22.0 % 19-41 [facility] BUN/creatinine ratioOrdered By: Reina Romero on 09-10-2024 Urea nitrogen/Creatinine [Mass ratio] 17.4 mg/mg 10-20 [facility] Basophil percentageOrdered B y: Reina Romero on 09-10-2024 Basophils/100 WBC (Bld) 0.1 % 0-1 [facility] Bilirubin, totalOrdered By: Reina Romero on 09-10-2024 Bilirubin [Mass/Vol] 0.19 mg/dL 0.00-1.30 [facility] CBC W/Diff, Automatedon Absolute Lymph 1.58 X10 3/uL Normal 0.83-4.51 [facility] Comment on above: Performed By: #### L 3890.6301, L3890.6006, L100.0100, L500.4050, BTS, L509.4006, L509.8002, L900.0098, L501.9985, L3890.6102 ####[facility] [address] [place], [address] Absolute Neut 5.1 X10 3/uL Normal 2.0-7.7 [facility] Comment on above: Performed By: #### L 3890.6301, L3890.6006, L100.0100, L500.4050, BTS, L509.4006, L509.8002, L900.0098, L501.9985, L3890.6102 ####[facility] [address] [place], [address] Basophils/100 WBC (Bld) 0.1 % Normal 0-1 [facility] Comment on above: Performed By: #### L 3890.6301, L3890.6006, L100.0100, L500.4050, BTS, L509.4006, L509.8002, L900.0098, L501.9985, L3890.6102 ####[facility] [address] [place], [address] Eosinophils/100 WBC (Bld) 2.6 % Normal 0-5 [facility] Comment on above: Performed By: #### L 3890.6301, L3890.6006, L100.0100, L500.4050, BTS, L509.4006, L509.8002, L900.0098, L501.9985, L3890.6102 ####[facility] [address] [place], [address] Erythrocyte distribution width (RBC) [Ratio] 12.0 % Normal 11.6-14.6 [facility] Comment on above: Performed By: #### L 3890.6301, L3890.6006, L100.0100, L500.4050, BTS, L509.4006, L509.8002, L900.0098, L501.9985, L3890.6102 ####[facility] [address] [place], [address] Hematocrit (Bld) [Volume fraction] 40.2 % Normal 37-47 [facility] Comment on above: Performed By: #### L 3890.6301, L3890.6006, L100.0100, L500.4050, BTS, L509.4006, L509.8002, L900.0098, L501.9985, L3890.6102 ####[facility] [address] [place], [address] Hemoglobin (Bld) [Mass/Vol] 13.9 g/dL Normal 12.0-15.0 [facility] Comment on above: Performed By: #### L 3890.6301, L3890.6006, L100.0100, L500.4050, BTS, L509.4006, L509.8002, L900.0098, L501.9985, L3890.6102 ####[facility] [address] [place], [address] IG% 0.300 Normal 0.0-0.9 [facility] Comment on above: Result Comment: IG% - Immature Granulocytes (promyelocytes, myelocytes andmetamyelocytes) > 1% indicates that a LEFT SHIFT is Present. Performed By: #### L 3890.6301, L3890.6006, L100.0100, L500.4050, BTS, L509.4006, L509.8002, L900.0098, L501.9985, L3890.6102 ####[facility] [address] [place], [address] Lymphocytes/100 WBC (Bld) 22.0 % Normal 19-41 [facility] Comment on above: Performed By: #### L 3890.6301, L3890.6006, L100.0100, L500.4050, BTS, L509.4006, L509.8002, L900.0098, L501.9985, L3890.6102 ####[facility] [address] [place], [address] MCH (RBC) [Entitic mass] 30.0 pg Normal 27.0-32.0 [facility] Comment on above: Performed By: #### L 3890.6301, L3890.6006, L100.0100, L500.4050, BTS, L509.4006, L509.8002, L900.0098, L501.9985, L3890.6102 ####[facility] [address] [place], [address] MCHC (RBC) [Mass/Vol] 34.6 g/dL Normal 32-36 [facility] Comment on above: Performed By: #### L 3890.6301, L3890.6006, L100.0100, L500.4050, BTS, L509.4006, L509.8002, L900.0098, L501.9985, L3890.6102 ####[facility] [address] [facility] [place], [address] MCV (RBC) [Entitic vol] 86.6 fL Normal 81-99 [facility] Comment on above: Performed By: #### L 3890.6301, L3890.6006, L100.0100, L500.4050, BTS, L509.4006, L509.8002, L900.0098, L501.9985, L3890.6102 ####[facility] [address] [facility] [place], [address] Monocytes/100 WBC (Bld) 4.3 % Normal 0-10 [facility] Comment on above: Performed By: #### L 3890.6301, L3890.6006, L100.0100, L500.4050, BTS, L509.4006, L509.8002, L900.0098, L501.9985, L3890.6102 ####[facility] [address] [place], [address]( Neutrophils/100 WBC (Bld) 70.7 % High 47-70 [facility] Comment on above: Performed By: #### L 3890.6301, L3890.6006, L100.0100, L500.4050, BTS, L509.4006, L509.8002, L900.0098, L501.9985, L3890.6102 ####[facility] [address] [facility] [address] [place], [place], [phone] Nucleated RBC (Bld) [#/Vol] 0 10*3/uL Normal 0-5 [facility] Comment on above: Performed By: #### L 3890.6301, L3890.6006, L100.0100, L500.4050, BTS, L509.4006, L509.8002, L900.0098, L501.9985, L3890.6102 ####[facility] [address] [facility] [place], [place], [phone]) Platelet mean volume (Bld) [Entitic vol] 9.6 fL Normal 6.2-12.0 [facility] Comment on above: Performed By: #### L 3890.6301, L3890.6006, L100.0100, L500.4050, BTS, L509.4006, L509.8002, L900.0098, L501.9985, L3890.6102 ####[facility] [address] [facility] [address] [place], [place], [phone]) Platelets (Bld) [#/Vol] 281 10*3/uL Normal 150-450 [facility] Comment on above: Performed By: #### L 3890.6301, L3890.6006, L100.0100, L500.4050, BTS, L509.4006, L509.8002, L900.0098, L501.9985, L3890.6102 ####[facility] [address] [place], [phone] RBC (Bld) [#/Vol] 4.64 10*6/uL Normal 4.2-5.4 [facility] Comment on above: Performed By: #### L 3890.6301, L3890.6006, L100.0100, L500.4050, BTS, L509.4006, L509.8002, L900.0098, L501.9985, L3890.6102 ####[facility] [address] [place], [phone] RDW SD 37.5 fl Normal 35.1-43.9 [facility] Comment on above: Performed By: #### L 3890.6301, L3890.6006, L100.0100, L500.4050, BTS, L509.4006, L509.8002, L900.0098, L501.9985, L3890.6102 ####[facility] [address] [place], [place], [phone]) WBC (Bld) [#/Vol] 7.2 10*3/uL Normal 4.4-11.0 [facility] Comment on above: Performed By: #### L 3890.6301, L3890.6006, L100.0100, L500.4050, BTS, L509.4006, L509.8002, L900.0098, L501.9985, L3890.6102 ####[facility] [address] [facility] [place], [address] Carbon dioxide, total [Moles /volume] in Central venous bloodOrdered By: Reina Romero on 09-10-2024 CO2 [Moles/Vol] 21.9 mmol/L 21.0-32.0 [facility] Chloride assayOrdered By: Wade Romero on 09-10-2024 Chloride [Moles/Vol] 104 mmol/L 98-108 [facility] Comprehensive Metabolic Prof ilon 09-10-2024 GAP 13 Normal 5-15 [facility] Comment on above: Order Comment: NIPT with Gender Performed By: #### L 3890.6301, L3890.6006, L100.0100, L500.4050, BTS, L509.4006, L509.8002, L900.0098, L501.9985, L3890.6102 ####[facility] [address] [place], [address] Albumin [Mass/Vol] 4.4 g/dL Normal 3.5-5.0 [facility] Comment on above: Order Comment: NIPT with Gender Performed By: #### L 3890.6301, L3890.6006, L100.0100, L500.4050, BTS, L509.4006, L509.8002, L900.0098, L501.9985, L3890.6102 ####[facility] [address] [place], [place], [id number] Albumin/Globulin [Mass ratio] 1.9 {ratio} Normal 0.9-2.4 [facility] Comment on above: Order Comment: NIPT with Gender Performed By: #### L 3890.6301, L3890.6006, L100.0100, L500.4050, BTS, L509.4006, L509.8002, L900.0098, L501.9985, L3890.6102 ####[facility] [address] [place], [address] ALK PHOS 60 U/L Normal 35-104 [facility] Comment on above: Order Comment: NIPT with Gender Performed By: #### L 3890.6301, L3890.6006, L100.0100, L500.4050, BTS, L509.4006, L509.8002, L900.0098, L501.9985, L3890.6102 ####[facility] [address] [place], [place], [phone] ALT [Catalytic activity/Vol] 22 U/L Normal <=34 [facility] Comment on above: Order Comment: NIPT with Gender Performed By: #### L 3890.6301, L3890.6006, L100.0100, L500.4050, BTS, L509.4006, L509.8002, L900.0098, L501.9985, L3890.6102 ####[facility] [address] [place], [address] AST [Catalytic activity/Vol] 17 U/L Normal <=31 [facility] Comment on above: Order Comment: NIPT with Gender Performed By: #### L 3890.6301, L3890.6006, L100.0100, L500.4050, BTS, L509.4006, L509.8002, L900.0098, L501.9985, L3890.6102 ####[facility] [address] [place], [address] Bilirubin [Mass/Vol] 0.19 mg/dL Normal 0.00-1.30 [facility] Comment on above: Order Comment: NIPT with Gender Performed By: #### L 3890.6301, L3890.6006, L100.0100, L500.4050, BTS, L509.4006, L509.8002, L900.0098, L501.9985, L3890.6102 ####[facility] [address] [place], [address] BUN/CRE 17.4 RATIO Normal 10-20 [facility] Comment on above: Order Comment: NIPT with Gender Performed By: #### L 3890.6301, L3890.6006, L100.0100, L500.4050, BTS, L509.4006, L509.8002, L900.0098, L501.9985, L3890.6102 ####[facility] [address] [place], [address] Calcium [Mass/Vol] 9.6 mg/dL Normal 7.6-11.0 [facility] Comment on above: Order Comment: NIPT with Gender Performed By: #### L 3890.6301, L3890.6006, L100.0100, L500.4050, BTS, L509.4006, L509.8002, L900.0098, L501.9985, L3890.6102 ####[facility] [address] [place], [address] Chloride [Moles/Vol] 104 mmol/L Normal 98-108 [facility] Comment on above: Order Comment: NIPT with Gender Performed By: #### L 3890.6301, L3890.6006, L100.0100, L500.4050, BTS, L509.4006, L509.8002, L900.0098, L501.9985, L3890.6102 ####[facility] [address] [place], [address] CO2 [Moles/Vol] 21.9 mmol/L Normal 21.0-32.0 [facility] Comment on above: Order Comment: NIPT with Gender Performed By: #### L 3890.6301, L3890.6006, L100.0100, L500.4050, BTS, L509.4006, L509.8002, L900.0098, L501.9985, L3890.6102 ####[facility] [address] [place], [address] Creatinine [Mass/Vol] 0.58 mg/dL Low 0.70-1.20 [facility] Comment on above: Order Comment: NIPT with Gender Performed By: #### L 3890.6301, L3890.6006, L100.0100, L500.4050, BTS, L509.4006, L509.8002, L900.0098, L501.9985, L3890.6102 ####[facility] [address] [facility]. [place], [place], [phone]) GFR/1.73 sq M.predicted among non-blacks MDRD (S/P/Bld) [Vol rate/Area] 121 mL/min/{1.73_m2} Normal >60 [facility] Comment on above: Order Comment: NIPT with Gender Result Comment: mL/m in/1.73m2 CKD-EPI Creatinine Equation (2020) Performed By: #### L 3890.6301, L3890.6006, L100.0100, L500.4050, BTS, L509.4006, L509.8002, L900.0098, L501.9985, L3890.6102 ####[facility] [address] [facility] [place], [place], [phone] Globulin (S) [Mass/Vol] 2.3 g/dL Normal 2.2-4.2 [facility] Comment on above: Order Comment: NIPT with Gender Performed By: #### L 3890.6301, L3890.6006, L100.0100, L500.4050, BTS, L509.4006, L509.8002, L900.0098, L501.9985, L3890.6102 ####[facility] [address] [place], [address] Glucose [Mass/Vol] 86 mg/dL Normal 70-99 [facility] Comment on above: Order Comment: NIPT with Gender Performed By: #### L 3890.6301, L3890.6006, L100.0100, L500.4050, BTS, L509.4006, L509.8002, L900.0098, L501.9985, L3890.6102 ####[facility] [address] [place], [address] Potassium [Moles/Vol] 3.9 mmol/L Normal 3.3-5.1 [facility] Comment on above: Order Comment: NIPT with Gender Performed By: #### L 3890.6301, L3890.6006, L100.0100, L500.4050, BTS, L509.4006, L509.8002, L900.0098, L501.9985, L3890.6102 ####[facility] [address] [place], [address] Sodium [Moles/Vol] 139 mmol/L Normal 133-145 [facility] Comment on above: Order Comment: NIPT with Gender Performed By: #### L 3890.6301, L3890.6006, L100.0100, L500.4050, BTS, L509.4006, L509.8002, L900.0098, L501.9985, L3890.6102 ####[facility] [address] [place], [address] T PROT 6.7 g/dL Normal 5.9-8.4 [facility] Comment on above: Order Comment: NIPT with Gender Performed By: #### L 3890.6301, L3890.6006, L100.0100, L500.4050, BTS, L509.4006, L509.8002, L900.0098, L501.9985, L3890.6102 ####[facility] [address] [place], [address] Urea nitrogen [Mass/Vol] 10 mg/dL Normal 4-19 [facility] Comment on above: Order Comment: NIPT with Gender Performed By: #### L 3890.6301, L3890.6006, L100.0100, L500.4050, BTS, L509.4006, L509.8002, L900.0098, L501.9985, L3890.6102 ####[facility] [address] [place], [address] Eosinophil percentageOrdered By: Reina Romero on 09-10-2024 Eosinophils/100 WBC (Bld) 2.6 % 0-5 [facility] Erythrocyte distribution wid th ratioOrdered By: Reina Romero on 09-10-2024 Erythrocyte distribution width (RBC) [Ratio] 12.0 % 11.6-14.6 [facility] Erythrocyte distribution wid th standard deviationOrdered By: Reina Romero on 09-10-2024 Erythrocyte distribution width (RBC) [Entitic vol] 37.5 fL 35.1-43.9 [facility] Erythrocyte distribution width (RBC) [Ratio] 37.5 fl 35.1-43.9 [facility] GFR/1.73 sq M.predicted javier g non-blacks MDRD (S/P/Bld) [Vol rate/Area]Ordered By: Reina Romero on 09-10-2024 Estimated GFR (MDRD) Non-Af Amer 121 >60 [facility] Comment on above: mL/min/1.73m2 CKD-EP I Creatinine Equation (2020) Glomerular filtration rate ( GFR) estimation/1.73 sq m using serum, plasma, or whole bOrdered By: Reina Romero on 09-10-2024 GFR/1.73 sq M.predicted among non-blacks MDRD (S/P/Bld) [Vol rate/Area] 121 mL/min/{1.73_m2} >60 [facility] Comment on above: mL/min/1.73m2 CKD-EP I Creatinine Equation (2020) HBV surface Ag Ql (S)Ordered By: Reina Romero on 09-10-2024 Hepatitis B Surface Antigen Non-Reactive Nonreactive [facility] Comment on above: Reactive: Presumptiv e evidence of HBV. Repeatedly reactive samples must be confirmed using a neutralization test ([employer] HBsAg Confirmatory Test)Non-Reactive: HBsAg not detected; does not exclude the possibility of exposure to HBV Hematocrit Auto (Bld) [Volum e fraction]Ordered By: Reina Romero on 09-10-2024 Hematocrit (Bld) [Volume fraction] 40.2 % 37-47 [facility] Hemoglobin A1con 09-10-2024 HbA1c (Bld) [Mass fraction] 5.1 % Low <=5.6 [facility] Comment on above: Performed By: #### L 3890.6301, L3890.6006, L100.0100, L500.4050, BTS, L509.4006, L509.8002, L900.0098, L501.9985, L3890.6102 ####[facility] [address] [place], [address] Hemoglobin A1c percentageOrd ered By: Reina Romero on 09-10-2024 HbA1c (Bld) [Mass fraction] 5.1 % Low >5.7 [facility] Hemoglobin measurementOrdere d By: Reina Romero on 09-10-2024 Hemoglobin (Bld) [Mass/Vol] 13.9 g/dL 12.0-15.0 [facility] Hepatitis C antibodyOrdered By: Reina Romero on 09-10-2024 Hepatitis C Antibody Non-Reactive Nonreactive [facility] Comment on above: Reactive: Presumptiv e evidence of antibodies to HCV. Follow CDC recommendations for supplemental testing.Non-Reactive: Antibodies to HCV were not detected; does not exclude the possibility of exposure to HCVReactive Results are presumptive evidence of antibodies to HCV. Follow CDC recommendations for supplemental testing.Order confirmation testing: HCV Quant by PCR testing - HCVPCR #[id number] Non Reactive: < 0.8 Equivocal: >/= 0.8 to < 1.0 Reactive: >/= 1.0The CDC requires that a reactive/equivocal HCV antibody result be sent out for confirmation. HCV Quant by PCR testing. Immature granulocytes/100 WB C Auto (Bld)Ordered By: Reina Romero on 09-10-2024 Immature granulocytes/100 WBC (Bld) 0.300 % 0.0-0.9 [facility] Comment on above: IG% - Immature Granu locytes (promyelocytes, myelocytes and metamyelocytes) > 1% indicates that a LEFT SHIFT is Present. L3890.6006on 09-10-2024 HIV Non-Reactive Normal Nonreactive [facility] Comment on above: Result Comment: Non- ReactiveReactiveRepeatedly reactive samples must be confirmed according [facility] recommended confirmatory algorithms. The subresults foreither HIVAG or AHIV can be used as an aid in the selectionof the confirmation algorithm for reactive samples.Send out specimens with Reactive results to [facility] forconfirmation.Order the HIV antibody detection and differentiation:lc#[id number] Performed By: #### L 3890.6301, L3890.6006, L100.0100, L500.4050, BTS, L509.4006, L509.8002, L900.0098, L501.9985, L3890.6102 ####[facility] [address] [place], [place], [id number] L3890.6102on 09-10-2024 HEP B Surf Ag Non-Reactive Normal Nonreactive [facility] Comment on above: Result Comment: Reac tive: Presumptive evidence of HBV. Repeatedly reactivesamples must be confirmed using a neutralization test([employer] HBsAg Confirmatory Test)Non-Reactive: HBsAg not detected; does not exclude thepossibility of exposure to HBV Performed By: #### L 3890.6301, L3890.6006, L100.0100, L500.4050, BTS, L509.4006, L509.8002, L900.0098, L501.9985, L3890.6102 ####[facility] [address] [place], [place], [id number] L3890.6301on 09-10-2024 Hepatitis C Ab Non-Reactive Normal Nonreactive [facility] Comment on above: Result Comment: Reac tive: Presumptive evidence of antibodies to HCV. [facility] recommendations for supplemental testing.Non-Reactive: Antibodies to HCV were not detected; does notexclude the possibility of exposure to HCVReactive Results are presumptive evidence of antibodies toHCV. Follow CDC recommendations for supplemental testing.Order confirmation testing: HCV Quant by PCR testing -HCVPCR #[id number] Non Reactive: < 0.8 Equivocal: >/= 0.8 to < 1.0 Reactive: >/= 1.0The CDC requires that a reactive/equivocal HCV antibodyresult be sent out for confirmation. HCV Quant by PCRtesting. Performed By: #### L 3890.6301, L3890.6006, L100.0100, L500.4050, BTS, L509.4006, L509.8002, L900.0098, L501.9985, L3890.6102 ####[facility] [address] [place], [place], [id number] L509.4006on 09-10-2024 Rubella IgG REAC Normal Nonreactive [facility] Comment on above: Result Comment: Anti body Result: InterpretationNon-Reactive: Non-ImmuneReactive: ImmuneThe following results were obtained with the ElecsysRubella IgG assay. Results from assays of othermanufacturers cannot be used interchangeably. Performed By: #### L 3890.6301, L3890.6006, L100.0100, L500.4050, BTS, L509.4006, L509.8002, L900.0098, L501.9985, L3890.6102 ####[facility] [address] [place], [address] L509.8002on 09-10-2024 Syphilis Abs Non-Reactive Normal Nonreactive [facility] Comment on above: Performed By: #### L 3890.6301, L3890.6006, L100.0100, L500.4050, BTS, L509.4006, L509.8002, L900.0098, L501.9985, L3890.6102 ####[facility] [address] [place], [address] Laboratory - Chemistry and C hemistry - challengeOrdered By: Reina Romero on 09-10-2024 AST [Catalytic activity/Vol] 17 U/L <32 [facility] Glucose Ql (U) Negative [facility] Laboratory - Microbiology an d Antimicrobial susceptibilityOrdered By: Reina Roemro on 09-10-2024 HBV surface Ag Ql (S) Non-Reactive Nonreactive [facility] Comment on above: Reactive: Presumptiv e evidence of HBV. Repeatedly reactive samples must be confirmed using a neutralization test ([employer] HBsAg Confirmatory Test)Non-Reactive: HBsAg not detected; does not exclude the possibility of exposure to HBV Laboratory - UrinalysisOrder ed By: Reina Romero on 09-10-2024 Protein Ql (U) Negative [facility] Lymphocytes Auto (Unsp spec) [#/Vol]Ordered By: Reina Romero on 09-10-2024 Lymphocytes (Bld) [#/Vol] 1.58 10*3/uL 0.83-4.51 [facility] Lymphocytes/100 WBC Auto (Un sp spec)Ordered By: Reina Romero on 09-10-2024 Lymphocytes/100 WBC (Bld) 22.0 % 19-41 [facility] MCV (mean corpuscular volume ) determinationOrdered By: Reina Romero on 09-10-2024 MCV (RBC) [Entitic vol] 86.6 fL 81-99 [facility] Mean corpuscular hemoglobin (MCH) determinationOrdered By: Reina Romero on 09-10-2024 MCH (RBC) [Entitic mass] 30.0 pg 27.0-32.0 [facility] Mean corpuscular hemoglobin concentration (MCHC) determinationOrdered By: Reina Romero on 09-10-2024 MCHC (RBC) [Mass/Vol] 34.6 g/dL 32-36 [facility] Mean platelet volume determi nationOrdered By: Reina Romero on 09-10-2024 Platelet mean volume (Bld) [Entitic vol] 9.6 fL 6.2-12.0 [facility] Miscellaneous procedureOrder ed By: Reina Romero on 09-10-2024 Miscellaneous Test Comment SEE SCANNED REPORT [facility] Monocyte percentageOrdered B y: Reina Romero on 09-10-2024 Monocytes/100 WBC (Bld) 4.3 % 0-10 [facility] NATERAon 09-10-2024 NATURA SEE SCANNED REPORT Normal [facility] Comment on above: Order Comment: Comme nts: NIPT with Gender Performed By: #### L 3890.6301, L3890.6006, L100.0100, L500.4050, BTS, L509.4006, L509.8002, L900.0098, L501.9985, L3890.6102 ####[facility] [address] [place], [address] Neutrophil percentageOrdered By: Reina Romero on 09-10-2024 Neutrophils/100 WBC (Bld) 70.7 % High 47-70 [facility] No Panel InformationOrdered By: Reina Romero on 09-10-2024 HIV (1&2) Antibody Non-Reactive Nonreactive [facility] Comment on above: Non-ReactiveReactive Repeatedly reactive samples must be confirmed according to CDC recommended confirmatory algorithms. The subresults for either HIVAG or AHIV can be used as an aid in the selection of the confirmation algorithm for reactive samples.Send out specimens with Reactive results to [facility] for confirmation.Order the HIV antibody detection and differentiation: #[id number] Nucleated red blood cell per centageOrdered By: Reina Romero on 09-10-2024 Nucleated RBC/100 WBC (Bld) [Ratio] 0 % 0-5 [facility] Workers' Compensation Magistrate Office Visit Reporton 09-10-2024 Workers' Compensation Magistrate Office Visit Report Normal [facility] Platelet countOrdered By: Wade Romero on 09-10-2024 Platelets (Bld) [#/Vol] 281 10*3/uL 150-450 [facility] Potassium (Unsp spec) [Mass/ Vol]Ordered By: Reina Romero on 09-10-2024 Potassium [Moles/Vol] 3.9 mmol/L 3.3-5.1 [facility] Potassium measurement (mass/ volume)Ordered By: Reina Romero on 09-10-2024 Potassium (Unsp spec) [Mass/Vol] 3.9 mmol/L 3.3-5.1 [facility] RBC Auto (Bld) [#/Vol]Ordere d By: Reina Romero on 09-10-2024 RBC (Bld) [#/Vol] 4.64 10*6/uL 4.2-5.4 [facility] Rubella immune status determ ination by IgG antibody assayOrdered By: Reina Romero on 09-10-2024 Rubella IgG Antibody REAC Nonreactive [facility] Comment on above: Antibody Result: Int erpretationNon-Reactive: Non-ImmuneReactive: ImmuneThe following results were obtained with the [employer] Rubella IgG assay. Results from assays of other manufacturers cannot be used interchangeably. Serum creatinine measurement (mass/volume)Ordered By: Reina Romero on 09-10-2024 Creatinine [Mass/Vol] 0.58 mg/dL Low 0.70-1.20 [facility] Serum globulin measurementOr dered By: Reina Romero on 09-10-2024 Globulin (S) [Mass/Vol] 2.3 g/dL 2.2-4.2 [facility] Serum glucose measurement (m ass/volume)Ordered By: Reina Romero on 09-10-2024 Glucose [Mass/Vol] 86 mg/dL 70-99 [facility] Serum or plasma alanine isabel otransferase (ALT) measurementOrdered By: Reina Romero on 09-10-2024 ALT [Catalytic activity/Vol] 22 U/L <35 [facility] Serum or plasma albumin jazmine urement (mass/volume)Ordered By: Reina Romero on 09-10-2024 Albumin [Mass/Vol] 4.4 g/dL 3.5-5.0 [facility] Serum or plasma albumin/glob ulin mass ratioOrdered By: Reina Romero on 09-10-2024 Albumin/Globulin [Mass ratio] 1.9 {ratio} 0.9-2.4 [facility] Serum or plasma alkaline molly sphatase measurementOrdered By: Reina Romero on 09-10-2024 ALP [Catalytic activity/Vol] 60 U/L 35-104 [facility] Serum or plasma calcium jazmine urement (mass/volume)Ordered By: Reina Romero on 09-10-2024 Calcium [Mass/Vol] 9.6 mg/dL 7.6-11.0 [facility] Serum or plasma urea nitroge n measurement (mass/volume)Ordered By: Reina Romero on 09-10-2024 Urea nitrogen [Mass/Vol] 10 mg/dL 4-19 [facility] Sodium levelOrdered By: Bernadine Romero on 09-10-2024 Sodium [Moles/Vol] 139 mmol/L 133-145 [facility] T. pallidum abOrdered By: Wade Romero on 09-10-2024 Syphilis Total Antibody Non-Reactive Nonreactiv e [facility] Total proteinOrdered By: Eleonora Romero on 09-10-2024 Protein [Mass/Vol] 6.7 g/dL 5.9-8.4 [facility] Type AND Screenon 09-10-2024 Ab SCREEN GEL Negative Normal [facility] Comment on above: Order Comment: PN Performed By: #### L 3890.6301, L3890.6006, L100.0100, L500.4050, BTS, L509.4006, L509.8002, L900.0098, L501.9985, L3890.6102 ####[facility] [address] [place], [place], [address] White blood cell (WBC) count Ordered By: Reina Romero on 09-10-2024 WBC (Bld) [#/Vol] 7.2 10*3/uL 4.4-11.0 [facility] Laboratory - Chemistry and C hemistry - challengeOrdered By: Lawson Parry on 08-26-2024 Glucose Ql (U) Negative [facility] Laboratory - UrinalysisOrder ed By: Lawson Parry on 08-26-2024 Protein Ql (U) Negative [facility] Workers' Compensation Magistrate Office Visit Reporton 08-26-2024 Workers' Compensation Magistrate Office Visit Report Normal [facility] Wound Cultureon 08-23-2024 WC Normal [facility] Comment on above: Performed By: #### M 100.2000, M100.3000 ####[facility] [address] [place], [place], [id number] Urine Cultureon 08-16-2024 URC Mixed Gram Positive Organisms [place] Count <1000 [facility] Mixed contaminants. Submit a new specimen if indicated. Normal [facility] Comment on above: Performed By: #### L 7000.1800, M100.2200, L501.0900 ####[facility] [address] [place], [address] Chlamydia/GC GUCCI aptimaon CHLAMY,NUC ACID Negative Normal Negative [facility] Comment on above: Performed By: #### L 7000.1800, M100.2200, L501.0900 ####[facility] [address] [place], [address] GC BY NUC ACID Negative Normal Negative [facility] Comment on above: Result Comment: Perf ormed at: =G - [facility] [address] [id number] Director: Rachel Smallwood MD, Phone: [phone] Performed By: #### L 7000.1800, M100.2200, L501.0900 ####[facility] [address] [place], [address] Gram Stainon 08-14-2024 GS vaginal inclusion cyst Gram Stain 1+ Epithelial cells 1+ Gram positive rods Normal [facility] Comment on above: Performed By: #### M 100.2000, M100.3000 ####[facility] [address] [place], [address] C. trachomatis rRNA GUCCI+prob e Ql (Unsp spec)Ordered By: Reina Romero on 08-13-2024 Chlamydia DNA (GUCCI) Negative Negative [facility] Chlamydia trachomatis rRNA d etection by probe and target amplification methodOrdered By: Reina Romero on 08-13-2024 C. trachomatis rRNA GUCCI+probe Ql (Unsp spec) Negative Negative [facility] Gram stainOrdered By: Nicolasa Romero on 08-13-2024 Microscopic observation Gram stain Nom (Unsp spec) [facility] Neisseria gonorrhoeae nuclei c acid detection by amplified probe techniqueOrdered By: Reina Romero on 08-13-2024 N. gonorrhoeae DNA GUCCI+probe Ql (Unsp spec) Negative Negative [facility] Comment on above: Performed at: = - [facility] [address] [id number] Director: Rachel Smallwood MD, Phone: [phone] Workers' Compensation Magistrate Office Visit Reporton 08-13-2024 Workers' Compensation Magistrate Office Visit Report Normal [facility] Protein+Creatinine Ratio,Uri neon 08-13-2024 PROT:CRE RATIO 90 mg/g CRE Normal 0-200 [facility] Comment on above: Performed By: #### L 7000.1800, M100.2200, L501.0900 ####[facility] [address] [place], [address] Protein (U) [Mass/Vol] 8.8 mg/dL Normal <11.9 [facility] Comment on above: Performed By: #### L 7000.1800, M100.2200, L501.0900 ####[facility] [address] [place], [address] UR CREAT 98.30 mg/dL Normal NO RANGE EST. [facility] Comment on above: Performed By: #### L 7000.1800, M100.2200, L501.0900 ####[facility] [address] [place], [address] Protein/Creatinine (U) [Mass ratio]Ordered By: Reina Romero on 08-13-2024 Urine Protein/Creatinine Ratio 90 mg/g CRE 0-200 [facility] Random urine protein measure mentOrdered By: Reina Romero on 08-13-2024 Protein (U) [Mass/Vol] 8.8 mg/dL 0.0-11.8 [facility] Routine wound cultureOrdered By: Reina Romero on 08-13-2024 Wound Culture Streptococcus sanguinis Abnormal [facility] Wound Culture Presumptive C albicans Abnormal [facility] Wound Culture Actinomyces naeslundii Abnormal [facility] Urine creatinine measurement (mass/volume)Ordered By: Renia Romero on 08-13-2024 Creatinine (U) [Mass/Vol] 98.30 mg/dL NO RANGE EST. [facility] Urine cultureOrdered By: Eleonora jazmínadamaris Heather on 08-13-2024 Bacteria identified Cx Nom (U) Positive Abnormal [facility] Urine protein/creatinine mas s ratioOrdered By: Reina Romero on 08-13-2024 Protein/Creatinine (U) [Mass ratio] 90 mg/g CRE 0-200 [facility] Gastroenterology Visit Repor ton 07-08-2024 Gastroenterology Visit Report Normal [facility] Chlamydia/GC GUCCI aptimaon CHLAMY,NUC ACID Negative Normal Negative [facility] Comment on above: Performed By: #### M 100.1999, M100.3200, L7000.1800, M100.2200 ####[facility] [address] [place], [place], [id number] GC BY NUC ACID Negative Normal Negative [facility] Comment on above: Result Comment: Perf ormed at: =G - [facility] [address] [id number] Director: Rachel Smallwood MD, Phone: [phone] Performed By: #### M 100.1999, M100.3200, L7000.1800, M100.2200 ####[facility] [address] [place], [place], [address] Genital Culture Comprehensiv coleman 06-27-2024 VAC Reason for Exam: vaginal discharge Normal vaginal yulia isolated. No yeast, Gardnerella, Neisseria or beta-hemolytic Streptococcus isolated. Normal [facility] Comment on above: Performed By: #### M 100.1999, M100.3200, L7000.1800, M100.2200 ####[facility] [address] [place], [address] Urine Cultureon 06-27-2024 URC Culture exhibits no growth. Normal [facility] Comment on above: Performed By: #### M 100.1999, M100.3200, L7000.1800, M100.2200 ####[facility] [address] [place], [address] C. trachomatis rRNA GUCCI+prob e Ql (Unsp spec)Ordered By: Ivett Marquez on 06-26-2024 Chlamydia DNA (GUCCI) Negative Negative [facility] Genital cultureOrdered By: Ernestina Marquez on 06-26-2024 Genital Culture Neisseria or beta-hemolytic Streptococcus isolated. [facility] Gram Stainon 06-26-2024 GS Reason for Exam: vaginal discharge Gram Stain 4+ Gram variable christoph Rare Gram positive rods No White Blood Cells Score = 8 Interpretation: 0-3 Normal, 4-6 Intermediate, 7-10 Positive BV Normal [facility] Comment on above: Performed By: #### M 100.2000, M100.3200, L7000.1800, M100.2200 ####[facility] [address] [place], [address] Gram stainOrdered By: Ivett Marquez on 06-26-2024 Microscopic observation Gram stain Nom (Unsp spec) [facility] Laboratory - Chemistry and C hemistry - challengeon 06-26-2024 Bilirubin Ql (U) Negative [facility] Glucose Ql (U) Negative [facility] Ketones Ql (U) Negative [facility] pH (U) 5 [pH] [facility] Specific gravity (U) [Rel density] 1.010 [facility] Urobilinogen (U) [Mass/Vol] Negative [facility] Laboratory - Hematology and Cell countson 06-26-2024 Hemoglobin Ql (U) Negative [facility] - Specimen inform ationon 06-26-2024 Clarity (U) Clear [facility] Color (U) Yellow [facility] Laboratory - Urinalysison Nitrite Ql (U) Negative [facility] Protein Ql (U) Negative [facility] Neisseria gonorrhoeae nuclei c acid detection by amplified probe techniqueOrdered By: Ivett Marquez on 06-26-2024 N. gonorrhoeae DNA GUCCI+probe Ql (Unsp spec) Negative Negative [facility] Comment on above: Performed at: =[address], [id number] Director: Rachel Smallwood MD, Phone: [phone] No Panel Informationon 06-26 POC Trichomonas (Rapid) Negative [facility] Urine Leukocytes Positive [facility] Urine Non-Hemolyzed Blood [facility] Workers' Compensation Magistrate Office Visit Reporton 06-26-2024 Workers' Compensation Magistrate Office Visit Report Normal [facility] Urine cultureOrdered By: Mak Marquez on 06-26-2024 Bacteria identified Cx Nom (U) Culture exhibits no growth. [facility] Gastroenterology Visit Repor ton 06-24-2024 Gastroenterology Visit Report Normal [facility] Colonoscopy Reporton 024 Colonoscopy Report Normal [facility] MR/POSTOP.ANEon 06-11-2024 MR/POSTOP.ANE Normal [facility] MR/[id number] 06-11-2024 MR/POSTOPAN2 Normal [facility] ,Urineon 06-11-2024 Beta HCG ( test) Ql (U) Negative [facility] Comment on above: Result Comment: Very dilute urine specimens, as indicated by a low specificgravity, may not contain customer contact representative levels of hCG.If is still suspected, a first morning urinespecimen should be collected 48 hours later and tested. Performed By: #### L 400.7600 ####[facility] [address] [place], [address] Urine testOrdered By: Jose Yanez on 06-11-2024 HCG ( test) Ql (U) Negative [facility] Comment on above: Very dilute urine sp ecimens, as indicated by a low specificgravity, may not contain customer contact representative levels of hCG. If is still suspected, a first morning urinespecimen should be collected 48 hours later and tested. Inital Evaluation (1) - PTon 05-27-2024 Inital Evaluation (1) - PT Normal [facility] Celiac Disease Profileon ENDOMYSIAL IGA Negative Normal Negative [facility] Comment on above: Order Comment: N Performed By: #### L 503.6014, L3100.1850, L3100.3425, L504.2610, L503.6550, L3410.2400, L503.6150, L100.9950, L100.0100 ####[facility] [address] [place], [address] tTG IGA <2 Normal 0-3 [facility] Comment on above: Order Comment: N Result Comment: Nega tive 0 - 3 Weak Positive 4 - 10 Positive >10 Tissue Transglutaminase (tTG) has been identified as the endomysial antigen. Studies have demonstr- ated that endomysial IgA antibodies have over 99% specificity for gluten sensitive enteropathy. Performed By: #### L 503.6075, L3100.1850, L3100.3425, L504.2610, L503.6550, L3410.2400, L503.6150, L100.9950, L100.0100 ####[facility] [address] [place], [address] tTG IGG 3 U/mL Normal 0-5 [facility] Comment on above: Order Comment: N Result Comment: Nega tive 0 - 5 Weak Positive 6 - 9 Positive >9 Performed By: #### L 503.6075, L3100.1850, L3100.3425, L504.2610, L503.6550, L3410.2400, L503.6150, L100.9950, L100.0100 ####[facility] [address] [place], [address] Haptoglobinon 05-14-2024 HAPTOGLOBIN 86 mg/dL Normal 33-278 [facility] Comment on above: Order Comment: N Result Comment: Perf ormed at: - [facility] [id number] Director: Sukhdev Cullen PhD, Phone: [phone] Performed By: #### L 503.6075, L3100.1850, L3100.3425, L504.2610, L503.6550, L3410.2400, L503.6150, L100.9950, L100.0100 ####[facility] [address] [place], [address] DELIA + Protein Elect, Serumon 05-14-2024 Albumin [Mass/Vol] 3.9 g/dL Normal 2.9-4.4 [facility] Comment on above: Order Comment: N Performed By: #### L 503.6075, L3100.1850, L3100.3425, L504.2610, L503.6550, L3410.2400, L503.6150, L100.9950, L100.0100 ####[facility] [address] [place], [place], [address] Albumin/Globulin [Mass ratio] 1.6 {ratio} Normal 0.7-1.7 [facility] Comment on above: Order Comment: N Performed By: #### L 503.6075, L3100.1850, L3100.3425, L504.2610, L503.6550, L3410.2400, L503.6150, L100.9950, L100.0100 ####[facility] [address] [place], [place], [address] VQNOA-5-MJHL 0.2 g/dL Normal 0.0-0.4 [facility] Comment on above: Order Comment: N Performed By: #### L 503.6075, L3100.1850, L3100.3425, L504.2610, L503.6550, L3410.2400, L503.6150, L100.9950, L100.0100 ####[facility] [address] [place], [place], [address] TDPDA-1-MCYV 0.6 g/dL Normal 0.4-1.0 [facility] Comment on above: Order Comment: N Performed By: #### L 503.6075, L3100.1850, L3100.3425, L504.2610, L503.6550, L3410.2400, L503.6150, L100.9950, L100.0100 ####[facility] [address] [place], [address] BETA GLOBULIN 0.9 g/dL Normal 0.7-1.3 [facility] Comment on above: Order Comment: N Performed By: #### L 503.6075, L3100.1850, L3100.3425, L504.2610, L503.6550, L3410.2400, L503.6150, L100.9950, L100.0100 ####[facility] [address] [place], [address] GAMMA GLOBULIN 0.9 g/dL Normal 0.4-1.8 [facility] Comment on above: Order Comment: N Performed By: #### L 503.6075, L3100.1850, L3100.3425, L504.2610, L503.6550, L3410.2400, L503.6150, L100.9950, L100.0100 ####[facility] [address] [place], [place], [phone]) Globulin (S) [Mass/Vol] 2.6 g/dL Normal 2.2-3.9 [facility] Comment on above: Order Comment: N Performed By: #### L 503.6075, L3100.1850, L3100.3425, L504.2610, L503.6550, L3410.2400, L503.6150, L100.9950, L100.0100 ####[facility] [address] [place], [address] DELIA RESULT,S Comment Normal . [facility] Comment on above: Order Comment: N Result Comment: No m onoclonality detected. Performed By: #### L 503.6075, L3100.1850, L3100.3425, L504.2610, L503.6550, L3410.2400, L503.6150, L100.9950, L100.0100 ####[facility] [address] [place], [address] IMMUNOGLOB A QN 76 mg/dL Low 87-352 [facility] Comment on above: Order Comment: N Performed By: #### L 503.6075, L3100.1850, L3100.3425, L504.2610, L503.6550, L3410.2400, L503.6150, L100.9950, L100.0100 ####[facility] [address] [place], [address] IMMUNOGLOB G QN 922 mg/dL Normal 586-1602 [facility] Comment on above: Order Comment: N Performed By: #### L 503.6075, L3100.1850, L3100.3425, L504.2610, L503.6550, L3410.2400, L503.6150, L100.9950, L100.0100 ####[facility] [address] [place], [address] IMMUNOGLOB M QN 132 mg/dL Normal 26-217 [facility] Comment on above: Order Comment: N Performed By: #### L 503.6075, L3100.1850, L3100.3425, L504.2610, L503.6550, L3410.2400, L503.6150, L100.9950, L100.0100 ####[facility] [address] [place], [address] M-Isra Not Observed Normal Not Observed [facility] Comment on above: Order Comment: N Performed By: #### L 503.6075, L3100.1850, L3100.3425, L504.2610, L503.6550, L3410.2400, L503.6150, L100.9950, L100.0100 ####[facility] [address] [place], [address] NOTE: Comment Normal . [facility] Comment on above: Order Comment: N Result Comment: Prot ein electrophoresis scan will follow via computer,mail, or real estate executive assistant delivery. Performed By: #### L 503.6075, L3100.1850, L3100.3425, L504.2610, L503.6550, L3410.2400, L503.6150, L100.9950, L100.0100 ####[facility] [address] [place], [place], [phone] Protein [Mass/Vol] 6.5 g/dL Normal 6.0-8.5 [facility] Comment on above: Order Comment: N Performed By: #### L 503.6075, L3100.1850, L3100.3425, L504.2610, L503.6550, L3410.2400, L503.6150, L100.9950, L100.0100 ####[facility] [address] [place], [place], [phone](154) CBC W/Diff, Automatedon 11-0 Absolute Lymph 1.29 X10 3/uL Normal 0.83-4.51 [facility] Comment on above: Performed By: #### L 503.6075, L3100.1850, L3100.3425, L504.2610, L503.6550, L3410.2400, L503.6150, L100.9950, L100.0100 ####[facility] [address] [place], [address](289 Absolute Neut 2.6 X10 3/uL Normal 2.0-7.7 [facility] Comment on above: Performed By: #### L 503.6075, L3100.1850, L3100.3425, L504.2610, L503.6550, L3410.2400, L503.6150, L100.9950, L100.0100 ####[facility] [address] [place], [address] Basophils/100 WBC (Bld) 0.9 % Normal 0-1 [facility] Comment on above: Performed By: #### L 503.6075, L3100.1850, L3100.3425, L504.2610, L503.6550, L3410.2400, L503.6150, L100.9950, L100.0100 ####[facility] [address] [place], [address](219) Eosinophils/100 WBC (Bld) 3.8 % Normal 0-5 [facility] Comment on above: Performed By: #### L 503.6075, L3100.1850, L3100.3425, L504.2610, L503.6550, L3410.2400, L503.6150, L100.9950, L100.0100 ####[facility] [address] [place], [address](074) Erythrocyte distribution width (RBC) [Ratio] 13.4 % Normal 11.6-14.6 [facility] Comment on above: Performed By: #### L 503.6075, L3100.1850, L3100.3425, L504.2610, L503.6550, L3410.2400, L503.6150, L100.9950, L100.0100 ####[facility] [address] [place], [address](069) Hematocrit (Bld) [Volume fraction] 39.3 % Normal 37-47 [facility] Comment on above: Performed By: #### L 503.6075, L3100.1850, L3100.3425, L504.2610, L503.6550, L3410.2400, L503.6150, L100.9950, L100.0100 ####[facility] [address] [place], [address](588) Hemoglobin (Bld) [Mass/Vol] 13.0 g/dL Normal 12.0-15.0 [facility] Comment on above: Performed By: #### L 503.6075, L3100.1850, L3100.3425, L504.2610, L503.6550, L3410.2400, L503.6150, L100.9950, L100.0100 ####[facility] [address] [place], [address] IG% 0.700 Normal 0.0-0.9 [facility] Comment on above: Result Comment: IG% - Immature Granulocytes (promyelocytes, myelocytes andmetamyelocytes) > 1% indicates that a LEFT SHIFT is Present. Performed By: #### L 503.6075, L3100.1850, L3100.3425, L504.2610, L503.6550, L3410.2400, L503.6150, L100.9950, L100.0100 ####[facility] [address] [place], [address] Lymphocytes/100 WBC (Bld) 29.1 % Normal 19-41 [facility] Comment on above: Performed By: #### L 503.6075, L3100.1850, L3100.3425, L504.2610, L503.6550, L3410.2400, L503.6150, L100.9950, L100.0100 ####[facility] [address] [place], [address] MCH (RBC) [Entitic mass] 29.5 pg Normal 27.0-32.0 [facility] Comment on above: Performed By: #### L 503.6075, L3100.1850, L3100.3425, L504.2610, L503.6550, L3410.2400, L503.6150, L100.9950, L100.0100 ####[facility] [address] [place], [address] MCHC (RBC) [Mass/Vol] 33.1 g/dL Normal 32-36 [facility] Comment on above: Performed By: #### L 503.6075, L3100.1850, L3100.3425, L504.2610, L503.6550, L3410.2400, L503.6150, L100.9950, L100.0100 ####[facility] [address] [place], [address] MCV (RBC) [Entitic vol] 89.1 fL Normal 81-99 [facility] Comment on above: Performed By: #### L 503.6075, L3100.1850, L3100.3425, L504.2610, L503.6550, L3410.2400, L503.6150, L100.9950, L100.0100 ####[facility] [address] [place], [address] Monocytes/100 WBC (Bld) 7.2 % Normal 0-10 [facility] Comment on above: Performed By: #### L 503.6075, L3100.1850, L3100.3425, L504.2610, L503.6550, L3410.2400, L503.6150, L100.9950, L100.0100 ####[facility] [address] [place], [address] Neutrophils/100 WBC (Bld) 58.3 % Normal 47-70 [facility] Comment on above: Performed By: #### L 503.6075, L3100.1850, L3100.3425, L504.2610, L503.6550, L3410.2400, L503.6150, L100.9950, L100.0100 ####[facility] [address] [place], [address] Nucleated RBC (Bld) [#/Vol] 0 10*3/uL Normal 0-5 [facility] Comment on above: Performed By: #### L 503.6075, L3100.1850, L3100.3425, L504.2610, L503.6550, L3410.2400, L503.6150, L100.9950, L100.0100 ####[facility] [address] [place], [address](196) Platelet mean volume (Bld) [Entitic vol] 9.3 fL Normal 6.2-12.0 [facility] Comment on above: Performed By: #### L 503.6075, L3100.1850, L3100.3425, L504.2610, L503.6550, L3410.2400, L503.6150, L100.9950, L100.0100 ####[facility] [address] [place], [address](832) Platelets (Bld) [#/Vol] 291 10*3/uL Normal 150-450 [facility] Comment on above: Performed By: #### L 503.6075, L3100.1850, L3100.3425, L504.2610, L503.6550, L3410.2400, L503.6150, L100.9950, L100.0100 ####[facility] [address] [facility] [place], [address](665) RBC (Bld) [#/Vol] 4.41 10*6/uL Normal 4.2-5.4 [facility] Comment on above: Performed By: #### L 503.6075, L3100.1850, L3100.3425, L504.2610, L503.6550, L3410.2400, L503.6150, L100.9950, L100.0100 ####[facility] [address] [facility] [place], [address](877) RDW SD 43.7 fl Normal 35.1-43.9 [facility] Comment on above: Performed By: #### L 503.6075, L3100.1850, L3100.3425, L504.2610, L503.6550, L3410.2400, L503.6150, L100.9950, L100.0100 ####[facility] [address] [place], [place], [phone] WBC (Bld) [#/Vol] 4.4 10*3/uL Normal 4.4-11.0 [facility] Comment on above: Performed By: #### L 503.6075, L3100.1850, L3100.3425, L504.2610, L503.6550, L3410.2400, L503.6150, L100.9950, L100.0100 ####[facility] [address] [place], [place], [phone](223) Ferritinon 05-10-2024 Ferritin [Mass/Vol] 88 ng/mL Normal 8-252 [facility] Comment on above: Order Comment: 1 Performed By: #### L 503.6075, L3100.1850, L3100.3425, L504.2610, L503.6550, L3410.2400, L503.6150, L100.9950, L100.0100 ####[facility] [address] [place], [place], [phone](159) Ironon 05-10-2024 Iron [Mass/Vol] 213 ug/dL High 50-170 [facility] Comment on above: Order Comment: 1 Performed By: #### L 503.6075, L3100.1850, L3100.3425, L504.2610, L503.6550, L3410.2400, L503.6150, L100.9950, L100.0100 ####[facility] [address] [place], [place], [phone] Iron Binding Capacity,Totalo n 05-10-2024 TIBC 279 ug/dL Normal 250-450 [facility] Comment on above: Order Comment: 1 Performed By: #### L 503.6075, L3100.1850, L3100.3425, L504.2610, L503.6550, L3410.2400, L503.6150, L100.9950, L100.0100 ####[facility] [address] [place], [address] LDHon 05-10-2024 LDH 161 U/L Normal 84-246 [facility] Comment on above: Order Comment: 1 Performed By: #### L 503.6075, L3100.1850, L3100.3425, L504.2610, L503.6550, L3410.2400, L503.6150, L100.9950, L100.0100 ####[facility] [address] [place], [place], [address] Workers' Compensation Magistrate Office Visit Reporton 05-10-2024 Workers' Compensation Magistrate Office Visit Report Normal [facility] Retic Panelon 05-10-2024 IM RET FRACTION 9.90 Normal 3.00-15.90 [facility] Comment on above: Performed By: #### L 503.6075, L3100.1850, L3100.3425, L504.2610, L503.6550, L3410.2400, L503.6150, L100.9950, L100.0100 ####[facility] [address] [place], [place], [phone] RET-HE 34.1 pg Normal 30-35 [facility] Comment on above: Performed By: #### L 503.6075, L3100.1850, L3100.3425, L504.2610, L503.6550, L3410.2400, L503.6150, L100.9950, L100.0100 ####[facility] [address] [place], [place], [phone] Retic Count 2.28 High 0.5-1.5 [facility] Comment on above: Performed By: #### L 503.6075, L3100.1850, L3100.3425, L504.2610, L503.6550, L3410.2400, L503.6150, L100.9950, L100.0100 ####[facility] [address] [place], [address] Gastroenterology Visit Repor ton 04-23-2024 Gastroenterology Visit Report Normal [facility] Workers' Compensation Magistrate Office Visit Reporton 03-21-2024 Workers' Compensation Magistrate Office Visit Report Normal [facility] AST(SGOT)on 03-19-2024 AST [Catalytic activity/Vol] 8 U/L Low 15-37 [facility] Comment on above: Performed By: #### L 501.0900, L501.4100, L501.1105, L501.4405, L501.1400 ####[facility] [address] [place], [address] Alanine Aminotransferas (SGP T)on 03-19-2024 ALT [Catalytic activity/Vol] 9 U/L Low 13-56 [facility] Comment on above: Performed By: #### L 501.0900, L501.4100, L501.1105, L501.4405, L501.1400 ####[facility] [address] [place], [address] CBC W/Diff, Automatedon 03-10 PLT EST ADEQUATE Normal ADEQ [facility] Comment on above: Performed By: #### L 100.0100, BTS ####[facility] [address] [place], [address] Discharge Instructionon 03-10 Discharge Instruction Normal [facility] H AND P Exam - OB/GYNon 03-10 H&P Exam - SUPERVISOR WINTER Normal [facility] L509.8000on 03-19-2024 Syphilis Abs Non-Reactive Normal [facility] Comment on above: Performed By: #### L 509.8000 ####[facility] [address] [place], [address] Operative Reporton Operative Report Normal [facility] Protein+Creatinine Ratio,Uri neon 03-19-2024 PROT:CRE RATIO 316 mg/g CRE High 0-200 [facility] Comment on above: Performed By: #### L 501.0900, L501.4100, L501.1105, L501.4405, L501.1400 ####[facility] [address] [place], [address] Protein (U) [Mass/Vol] 25.8 mg/dL High <11.9 [facility] Comment on above: Performed By: #### L 501.0900, L501.4100, L501.1105, L501.4405, L501.1400 ####[facility] [address] [place], [address] UR CREAT 81.60 mg/dL Normal NO RANGE EST. [facility] Comment on above: Performed By: #### L 501.0900, L501.4100, L501.1105, L501.4405, L501.1400 ####[facility] [address] [place], [address] Serum Creatinine AND GFRon 0 03-19-2024 Creatinine [Mass/Vol] 0.54 mg/dL Low 0.55-1.02 [facility] Comment on above: Result Comment: The validity of the calculated GFR GFRAA in patients over70 years has not been determined. Clinical correlation isessential. Performed By: #### L 501.0900, L501.4100, L501.1105, L501.4405, L501.1400 ####[facility] [address] [place], [address] ECRCL 159.36 ml/min Normal [facility] Comment on above: Performed By: #### L 501.0900, L501.4100, L501.1105, L501.4405, L501.1400 ####[facility] [address] [place], [address] EST GFR - AA 166 mL/min Normal >60 [facility] Comment on above: Result Comment: Afri can Berm[place]ian GFR Calc Performed By: #### L 501.0900, L501.4100, L501.1105, L501.4405, L501.1400 ####[facility] [address] [place], [address] GFR/1.73 sq M.predicted among non-blacks MDRD (S/P/Bld) [Vol rate/Area] 137 mL/min/{1.73_m2} Normal >60 [facility] Comment on above: Result Comment: Non- GFR Calc Performed By: #### L 501.0900, L501.4100, L501.1105, L501.4405, L501.1400 ####[facility] [address] [place], [address] Type AND Screenon 03-19-2024 ABO and Rh group Nom (Bld) Blood group A Rh(D) positive Normal [facility] Comment on above: Order Comment: Labor Performed By: #### L 100.0100, BTS ####[facility] [address] [place], [address] Uric Acidon 03-19-2024 URIC 4.5 mg/dL Normal 2.6-6.0 [facility] Comment on above: Result Comment: The drugs N-Acetylcysteine and Metamizole may falselydepress this assay. Performed By: #### L 501.0900, L501.4100, L501.1105, L501.4405, L501.1400 ####[facility] [address] [place], [address] Genital Culture Comprehensiv coleman 03-13-2024 VAC Reason for Exam: vaginal irritation Presumptive C albicans Amount Growth 3+ Normal [facility] Comment on above: Performed By: #### M 100.3200, M100.2000 ####[facility] [address] [place], [address] Gram Stainon 03-12-2024 GS Reason for Exam: vaginal irritation Gram Stain 4+ Gram positive rods No Gram negative diplococci Score = 0 Interpretation: 0-3 Normal, 4-6 Intermediate, 7-10 Positive BV Normal [facility] Comment on above: Performed By: #### M 100.3200, M100.2000 ####[facility] [address] [place], [address] Workers' Compensation Magistrate Office Visit Reporton 03-12-2024 Workers' Compensation Magistrate Office Visit Report Normal [facility] CBC W/Diff, Automatedon 02-08 SMEAR COMMENT SCANNED Normal [facility] Comment on above: Performed By: #### L 100.0100 ####[facility] [address] [place], [address] CBC W/Diff, Automatedon 02-08 PLT EST ADEQUATE Normal ADEQ [facility] Comment on above: Performed By: #### L 100.0100, L500.4050, L501.0900 ####[facility] [address] [place], [address] SMEAR COMMENT SCANNED Normal [facility] Comment on above: Result Comment: Plea se note: For this sample, a platelet estimate isprovided rather than a platelet count due to plateletclumping. Other parameters associated with this sample arenot affected by platelet clumping. If a more accurateplatelet count is required, a redraw of the patient will benecessary. Performed By: #### L 100.0100, L500.4050, L501.0900 ####[facility] [address] [place], [address] Comprehensive Metabolic Prof ilon 03-05-2024 Albumin [Mass/Vol] 2.8 g/dL Low 3.2-5.0 [facility] Comment on above: Performed By: #### L 100.0100, L500.4050, L501.0900 ####[facility] [address] [place], [address] Albumin/Globulin [Mass ratio] 0.8 {ratio} Low 0.9-2.4 [facility] Comment on above: Performed By: #### L 100.0100, L500.4050, L501.0900 ####[facility] [address] [place], [address] ALK P 94 U/L Normal 45-117 [facility] Comment on above: Performed By: #### L 100.0100, L500.4050, L501.0900 ####[facility] [address] [place], [address] ALT [Catalytic activity/Vol] 14 U/L Normal 13-56 [facility] Comment on above: Performed By: #### L 100.0100, L500.4050, L501.0900 ####[facility] [address] [place], [address] AST [Catalytic activity/Vol] 12 U/L Low 15-37 [facility] Comment on above: Performed By: #### L 100.0100, L500.4050, L501.0900 ####[facility] [address] [place], [address] Bilirubin [Mass/Vol] 0.40 mg/dL Normal 0.20-1.00 [facility] Comment on above: Result Comment: For patients on eltrombopag therapy, use of Dimension [place] TBIL is not recommended. Performed By: #### L 100.0100, L500.4050, L501.0900 ####[facility] [address] [place], [address] BUN/CRE 12.5 RATIO Normal 10-20 [facility] Comment on above: Performed By: #### L 100.0100, L500.4050, L501.0900 ####[facility] [address] [place], [address] CA,Total 9.0 mg/dL Normal 8.5-10.1 [facility] Comment on above: Performed By: #### L 100.0100, L500.4050, L501.0900 ####[facility] [address] [place], [address] Chloride [Moles/Vol] 106 mmol/L Normal 98-107 [facility] Comment on above: Performed By: #### L 100.0100, L500.4050, L501.0900 ####[facility] [address] [place], [address] CO2 [Moles/Vol] 23.0 mmol/L Normal 21.0-32.0 [facility] Comment on above: Performed By: #### L 100.0100, L500.4050, L501.0900 ####[facility] [address] [place], [address] Creatinine [Mass/Vol] 0.56 mg/dL Normal 0.55-1.02 [facility] Comment on above: Result Comment: The validity of the calculated GFR GFRAA in patients over70 years has not been determined. Clinical correlation isessential. Performed By: #### L 100.0100, L500.4050, L501.0900 ####[facility] [address] [place], [address] EST GFR - AA 159 mL/min Normal >60 [facility] Comment on above: Result Comment: Afri can [place] GFR Calc Performed By: #### L 100.0100, L500.4050, L501.0900 ####[facility] [address] [place], [address] GAP 9 Normal 5-15 [facility] Comment on above: Performed By: #### L 100.0100, L500.4050, L501.0900 ####[facility] [address] [place], [address] GFR/1.73 sq M.predicted among non-blacks MDRD (S/P/Bld) [Vol rate/Area] 131 mL/min/{1.73_m2} Normal >60 [facility] Comment on above: Result Comment: Non- GFR Calc Performed By: #### L 100.0100, L500.4050, L501.0900 ####[facility] [address] [place], [address] Globulin (S) [Mass/Vol] 3.5 g/dL Normal 2.2-4.2 [facility] Comment on above: Performed By: #### L 100.0100, L500.4050, L501.0900 ####[facility] [address] [place], [address] Glucose [Mass/Vol] 82 mg/dL Normal 74-106 [facility] Comment on above: Performed By: #### L 100.0100, L500.4050, L501.0900 ####[facility] [address] [place], [address] Potassium [Moles/Vol] 3.7 mmol/L Normal 3.5-5.1 [facility] Comment on above: Performed By: #### L 100.0100, L500.4050, L501.0900 ####[facility] [address] [place], [address] Sodium [Moles/Vol] 138 mmol/L Normal 136-145 [facility] Comment on above: Performed By: #### L 100.0100, L500.4050, L501.0900 ####[facility] [address] [place], [address] T PROT 6.3 g/dL Low 6.4-8.2 [facility] Comment on above: Performed By: #### L 100.0100, L500.4050, L501.0900 ####[facility] [address] [place], [address] Urea nitrogen [Mass/Vol] 7 mg/dL Normal 7-18 [facility] Comment on above: Performed By: #### L 100.0100, L500.4050, L501.0900 ####[facility] [address] [place], [address] Protein+Creatinine Ratio,Uri neon 03-05-2024 PROT:CRE RATIO 188 mg/g CRE Normal 0-200 [facility] Comment on above: Performed By: #### L 100.0100, L500.4050, L501.0900 ####[facility] [address] [place], [address] Protein (U) [Mass/Vol] 54.0 mg/dL High <11.9 [facility] Comment on above: Performed By: #### L 100.0100, L500.4050, L501.0900 ####[facility] [address] [place], [address] UR CREAT 288.00 mg/dL Normal NO RANGE EST. [facility] Comment on above: Performed By: #### L 100.0100, L500.4050, L501.0900 ####[facility] [address] [place], [address] (ROM) Rupture Of Membraneson 03-04-2024 ROM Negative Normal Negative [facility] Comment on above: Order Comment: Comme nts: STAT Result Comment: Amni otic fluid not present indicates No Rupture of FetalMembranes at time of specimen collection. Performed By: #### L 205.1000 ####[facility] [address] [place], [address] CBC W/Diff, Automatedon 02-08 Absolute Neut Normal 2.0-7.7 [facility] Comment on above: Result Comment: NO S PECIMEN RECEIVED Performed By: #### L 500.4050, L501.0900, L100.0100 ####[facility] [address] [place], [address] HCT Normal 37-47 [facility] Comment on above: Result Comment: NO S PECIMEN RECEIVED Performed By: #### L 500.4050, L501.0900, L100.0100 ####[facility] [address] [place], [address] HGB Normal 12.0-15.0 [facility] Comment on above: Result Comment: NO S PECIMEN RECEIVED Performed By: #### L 500.4050, L501.0900, L100.0100 ####[facility] [address] [place], [address] MCH Normal 27.0-32.0 [facility] Comment on above: Result Comment: NO S PECIMEN RECEIVED Performed By: #### L 500.4050, L501.0900, L100.0100 ####[facility] [address] [place], [address] MCHC Normal 32-36 [facility] Comment on above: Result Comment: NO S PECIMEN RECEIVED Performed By: #### L 500.4050, L501.0900, L100.0100 ####[facility] [address] [place], [address] MCV Normal 81-99 [facility] Comment on above: Result Comment: NO S PECIMEN RECEIVED Performed By: #### L 500.4050, L501.0900, L100.0100 ####[facility] [address] [place], [address] NEUT% Normal 47-70 [facility] Comment on above: Result Comment: NO S PECIMEN RECEIVED Performed By: #### L 500.4050, L501.0900, L100.0100 ####[facility] [address] [place], [address] PLT Normal 150-450 [facility] Comment on above: Result Comment: NO S PECIMEN RECEIVED Performed By: #### L 500.4050, L501.0900, L100.0100 ####[facility] [address] [place], [address] RBC Normal 4.2-5.4 [facility] Comment on above: Result Comment: NO S PECIMEN RECEIVED Performed By: #### L 500.4050, L501.0900, L100.0100 ####[facility] [address] [place], [address] RDW CV Normal 11.6-14.6 [facility] Comment on above: Result Comment: NO S PECIMEN RECEIVED Performed By: #### L 500.4050, L501.0900, L100.0100 ####[facility] [address] [place], [address] RDW SD Normal 35.1-43.9 [facility] Comment on above: Result Comment: NO S PECIMEN RECEIVED Performed By: #### L 500.4050, L501.0900, L100.0100 ####[facility] [address] [place], [address] WBC Normal 4.4-11.0 [facility] Comment on above: Result Comment: NO S PECIMEN RECEIVED Performed By: #### L 500.4050, L501.0900, L100.0100 ####[facility] [address] [place], [address] Comprehensive Metabolic Prof ilon 03-04-2024 ALB Normal 3.2-5.0 [facility] Comment on above: Result Comment: NO S PECIMEN RECEIVED Performed By: #### L 500.4050, L501.0900, L100.0100 ####[facility] [address] [place], [address] ALK P Normal 45-117 [facility] Comment on above: Result Comment: NO S PECIMEN RECEIVED Performed By: #### L 500.4050, L501.0900, L100.0100 ####[facility] [address] [place], [address] ALT Normal 13-56 [facility] Comment on above: Result Comment: NO S PECIMEN RECEIVED Performed By: #### L 500.4050, L501.0900, L100.0100 ####[facility] [address] [place], [address] AST Normal 15-37 [facility] Comment on above: Result Comment: NO S PECIMEN RECEIVED Performed By: #### L 500.4050, L501.0900, L100.0100 ####[facility] [address] [place], [address] BUN Normal 7-18 [facility] Comment on above: Result Comment: NO S PECIMEN RECEIVED Performed By: #### L 500.4050, L501.0900, L100.0100 ####[facility] [address] [place], [address] BUN/CRE Normal 10-20 [facility] Comment on above: Result Comment: NO S PECIMEN RECEIVED Performed By: #### L 500.4050, L501.0900, L100.0100 ####[facility] [address] [place], [address] CA,Total Normal 8.5-10.1 [facility] Comment on above: Result Comment: NO S PECIMEN RECEIVED Performed By: #### L 500.4050, L501.0900, L100.0100 ####[facility] [address] [place], [address] CL Normal 98-107 [facility] Comment on above: Result Comment: NO S PECIMEN RECEIVED Performed By: #### L 500.4050, L501.0900, L100.0100 ####[facility] [address] [place], [address] CO2 Normal 21.0-32.0 [facility] Comment on above: Result Comment: NO S PECIMEN RECEIVED Performed By: #### L 500.4050, L501.0900, L100.0100 ####[facility] [address] [place], [address] CREAT,SERUM Normal 0.55-1.02 [facility] Comment on above: Result Comment: NO S PECIMEN RECEIVED Performed By: #### L 500.4050, L501.0900, L100.0100 ####[facility] [address] [place], [address] EST GFR Normal >60 [facility] Comment on above: Result Comment: NO S PECIMEN RECEIVED Performed By: #### L 500.4050, L501.0900, L100.0100 ####[facility] [address] [place], [address] EST GFR - AA Normal >60 [facility] Comment on above: Result Comment: NO S PECIMEN RECEIVED Performed By: #### L 500.4050, L501.0900, L100.0100 ####[facility] [address] [place], [address] GAP Normal 5-15 [facility] Comment on above: Result Comment: NO S PECIMEN RECEIVED Performed By: #### L 500.4050, L501.0900, L100.0100 ####[facility] [address] [place], [address] GLU Normal 74-106 [facility] Comment on above: Result Comment: NO S PECIMEN RECEIVED Performed By: #### L 500.4050, L501.0900, L100.0100 ####[facility] [address] [place], [address] Potassium Normal 3.5-5.1 [facility] Comment on above: Result Comment: NO S PECIMEN RECEIVED Performed By: #### L 500.4050, L501.0900, L100.0100 ####[facility] [address] [place], [address] T BILI Normal 0.20-1.00 [facility] Comment on above: Result Comment: NO S PECIMEN RECEIVED Performed By: #### L 500.4050, L501.0900, L100.0100 ####[facility] [address] [place], [address] T PROT Normal 6.4-8.2 [facility] Comment on above: Result Comment: NO S PECIMEN RECEIVED Performed By: #### L 500.4050, L501.0900, L100.0100 ####[facility] [address] [place], [address] Comprehensive Metabolic Profil Normal 136-145 [facility] Comment on above: Result Comment: NO S PECIMEN RECEIVED Performed By: #### L 500.4050, L501.0900, L100.0100 ####[facility] [address] [place], [address] Workers' Compensation Magistrate Office Visit Reporton 03-04-2024 Workers' Compensation Magistrate Office Visit Report Normal [facility] Protein+Creatinine Ratio,Uri neon 03-04-2024 PROT:CRE RATIO 152 mg/g CRE Normal 0-200 [facility] Comment on above: Performed By: #### L 500.4050, L501.0900, L100.0100 ####[facility] [address] [place], [address] Protein (U) [Mass/Vol] 39.2 mg/dL High <11.9 [facility] Comment on above: Performed By: #### L 500.4050, L501.0900, L100.0100 ####[facility] [address] [place], [address] UR CREAT 258.00 mg/dL Normal NO RANGE EST. [facility] Comment on above: Performed By: #### L 500.4050, L501.0900, L100.0100 ####[facility] [address] [place], [address] Rule out Beta Strep (Grp. B) on 02-28-2024 BONI Group B Beta Streptococcus is not isolated. Normal [facility] Comment on above: Performed By: #### M 100.3400 ####[facility] [address] [place], [address] CBC-Complete Blood Cnt No Di ffon 02-26-2024 PLT TNP Normal 150-450 [facility] Comment on above: Result Comment: Plea se note: For this sample, a platelet estimate isprovided rather than a platelet count due to plateletclumping. Other parameters associated with this sample arenot affected by platelet clumping. If a more accurateplatelet count is required, a redraw of the patient will benecessary. Performed By: #### L 504.2610, L501.1400, L100.0500, L500.4050, L501.0900, L100.4500 ####[facility] [address] [place], [address] Erythrocyte distribution width (RBC) [Ratio] 13.3 % Normal 11.6-14.6 [facility] Comment on above: Performed By: #### L 504.2610, L501.1400, L100.0500, L500.4050, L501.0900, L100.4500 ####[facility] [address] [place], [address] Hematocrit (Bld) [Volume fraction] 33.1 % Low 37-47 [facility] Comment on above: Performed By: #### L 504.2610, L501.1400, L100.0500, L500.4050, L501.0900, L100.4500 ####[facility] [address] [place], [address] Hemoglobin (Bld) [Mass/Vol] 11.0 g/dL Low 12.0-15.0 [facility] Comment on above: Performed By: #### L 504.2610, L501.1400, L100.0500, L500.4050, L501.0900, L100.4500 ####[facility] [address] [place], [address] MCH (RBC) [Entitic mass] 30.5 pg Normal 27.0-32.0 [facility] Comment on above: Performed By: #### L 504.2610, L501.1400, L100.0500, L500.4050, L501.0900, L100.4500 ####[facility] [address] [place], [address] MCHC (RBC) [Mass/Vol] 33.2 g/dL Normal 32-36 [facility] Comment on above: Performed By: #### L 504.2610, L501.1400, L100.0500, L500.4050, L501.0900, L100.4500 ####[facility] [address] [place], [address] MCV (RBC) [Entitic vol] 91.7 fL Normal 81-99 [facility] Comment on above: Performed By: #### L 504.2610, L501.1400, L100.0500, L500.4050, L501.0900, L100.4500 ####[facility] [address] [place], [address] Platelet mean volume (Bld) [Entitic vol] 11.0 fL Normal 6.2-12.0 [facility] Comment on above: Performed By: #### L 504.2610, L501.1400, L100.0500, L500.4050, L501.0900, L100.4500 ####[facility] [address] [place], [address] RBC (Bld) [#/Vol] 3.61 10*6/uL Low 4.2-5.4 [facility] Comment on above: Performed By: #### L 504.2610, L501.1400, L100.0500, L500.4050, L501.0900, L100.4500 ####[facility] [address] [place], [address] RDW SD 43.6 fl Normal 35.1-43.9 [facility] Comment on above: Performed By: #### L 504.2610, L501.1400, L100.0500, L500.4050, L501.0900, L100.4500 ####[facility] [address] [place], [address] WBC (Bld) [#/Vol] 8.1 10*3/uL Normal 4.4-11.0 [facility] Comment on above: Performed By: #### L 504.2610, L501.1400, L100.0500, L500.4050, L501.0900, L100.4500 ####[facility] [address] [place], [address] Comprehensive Metabolic Prof ilon 02-26-2024 Albumin [Mass/Vol] 2.5 g/dL Low 3.2-5.0 [facility] Comment on above: Order Comment: 1 Performed By: #### L 504.2610, L501.1400, L100.0500, L500.4050, L501.0900, L100.4500 ####[facility] [address] [place], [address] Albumin/Globulin [Mass ratio] 0.7 {ratio} Low 0.9-2.4 [facility] Comment on above: Order Comment: 1 Performed By: #### L 504.2610, L501.1400, L100.0500, L500.4050, L501.0900, L100.4500 ####[facility] [address] [place], [address] ALK P 78 U/L Normal 45-117 [facility] Comment on above: Order Comment: 1 Performed By: #### L 504.2610, L501.1400, L100.0500, L500.4050, L501.0900, L100.4500 ####[facility] [address] [place], [address] ALT [Catalytic activity/Vol] 14 U/L Normal 13-56 [facility] Comment on above: Order Comment: 1 Performed By: #### L 504.2610, L501.1400, L100.0500, L500.4050, L501.0900, L100.4500 ####[facility] [address] [place], [address] AST [Catalytic activity/Vol] 9 U/L Low 15-37 [facility] Comment on above: Order Comment: 1 Performed By: #### L 504.2610, L501.1400, L100.0500, L500.4050, L501.0900, L100.4500 ####[facility] [address] [place], [address] Bilirubin [Mass/Vol] 0.30 mg/dL Normal 0.20-1.00 [facility] Comment on above: Order Comment: 1 Result Comment: For patients on eltrombopag therapy, use of Dimension [place] TBIL is not recommended. Performed By: #### L 504.2610, L501.1400, L100.0500, L500.4050, L501.0900, L100.4500 ####[facility] [address] [place], [address] BUN/CRE 12.4 RATIO Normal 10-20 [facility] Comment on above: Order Comment: 1 Performed By: #### L 504.2610, L501.1400, L100.0500, L500.4050, L501.0900, L100.4500 ####[facility] [address] [place], [address] CA,Total 8.5 mg/dL Normal 8.5-10.1 [facility] Comment on above: Order Comment: 1 Performed By: #### L 504.2610, L501.1400, L100.0500, L500.4050, L501.0900, L100.4500 ####[facility] [address] [place], [address] Chloride [Moles/Vol] 109 mmol/L High 98-107 [facility] Comment on above: Order Comment: 1 Performed By: #### L 504.2610, L501.1400, L100.0500, L500.4050, L501.0900, L100.4500 ####[facility] [address] [place], [address] CO2 [Moles/Vol] 26.0 mmol/L Normal 21.0-32.0 [facility] Comment on above: Order Comment: 1 Performed By: #### L 504.2610, L501.1400, L100.0500, L500.4050, L501.0900, L100.4500 ####[facility] [address] [place], [address] Creatinine [Mass/Vol] 0.48 mg/dL Low 0.55-1.02 [facility] Comment on above: Order Comment: 1 Result Comment: The validity of the calculated GFR GFRAA in patients over70 years has not been determined. Clinical correlation isessential. Performed By: #### L 504.2610, L501.1400, L100.0500, L500.4050, L501.0900, L100.4500 ####[facility] [address] [place], [place], [phone] EST GFR - AA 188 mL/min Normal >60 [facility] Comment on above: Order Comment: 1 Result Comment: Afri can [place] GFR Calc Performed By: #### L 504.2610, L501.1400, L100.0500, L500.4050, L501.0900, L100.4500 ####[facility] [address] [place], [place], [phone] GAP 3 Low 5-15 [facility] Comment on above: Order Comment: 1 Performed By: #### L 504.2610, L501.1400, L100.0500, L500.4050, L501.0900, L100.4500 ####[facility] [address] [place], [place], [phone] GFR/1.73 sq M.predicted among non-blacks MDRD (S/P/Bld) [Vol rate/Area] 155 mL/min/{1.73_m2} Normal >60 [facility] Comment on above: Order Comment: 1 Result Comment: Non- GFR Calc Performed By: #### L 504.2610, L501.1400, L100.0500, L500.4050, L501.0900, L100.4500 ####[facility] [address] [place], [place], [phone] Globulin (S) [Mass/Vol] 3.5 g/dL Normal 2.2-4.2 [facility] Comment on above: Order Comment: 1 Performed By: #### L 504.2610, L501.1400, L100.0500, L500.4050, L501.0900, L100.4500 ####[facility] [address] [place], [address] Glucose [Mass/Vol] 87 mg/dL Normal 74-106 [facility] Comment on above: Order Comment: 1 Performed By: #### L 504.2610, L501.1400, L100.0500, L500.4050, L501.0900, L100.4500 ####[facility] [address] [place], [address] Potassium [Moles/Vol] 3.9 mmol/L Normal 3.5-5.1 [facility] Comment on above: Order Comment: 1 Performed By: #### L 504.2610, L501.1400, L100.0500, L500.4050, L501.0900, L100.4500 ####[facility] [address] [place], [address] Sodium [Moles/Vol] 138 mmol/L Normal 136-145 [facility] Comment on above: Order Comment: 1 Performed By: #### L 504.2610, L501.1400, L100.0500, L500.4050, L501.0900, L100.4500 ####[facility] [address] [place], [address] T PROT 6.0 g/dL Low 6.4-8.2 [facility] Comment on above: Order Comment: 1 Performed By: #### L 504.2610, L501.1400, L100.0500, L500.4050, L501.0900, L100.4500 ####[facility] [address] [place], [address] Urea nitrogen [Mass/Vol] 6 mg/dL Low 7-18 [facility] Comment on above: Order Comment: 1 Performed By: #### L 504.2610, L501.1400, L100.0500, L500.4050, L501.0900, L100.4500 ####[facility] [address] [place], [address] Differential Commenton 02-25 SMEAR COMMENT COMMENT Normal [facility] Comment on above: Result Comment: PLT COUNT NORMAL Performed By: #### L 504.2610, L501.1400, L100.0500, L500.4050, L501.0900, L100.4500 ####[facility] [address] [place], [address] LDHon 02-26-2024 LDH 139 U/L Normal 84-246 [facility] Comment on above: Order Comment: 1 Performed By: #### L 504.2610, L501.1400, L100.0500, L500.4050, L501.0900, L100.4500 ####[facility] [address] [place], [address] OB Triage Progress Noteon OB Triage Progress Note Normal [facility] Workers' Compensation Magistrate Office Visit Reporton 02-26-2024 Workers' Compensation Magistrate Office Visit Report Normal [facility] Protein+Creatinine Ratio,Uri neon 02-26-2024 PROT:CRE RATIO 265 mg/g CRE High 0-200 [facility] Comment on above: Performed By: #### L 504.2610, L501.1400, L100.0500, L500.4050, L501.0900, L100.4500 ####[facility] [address] [place], [address] Protein (U) [Mass/Vol] 6.1 mg/dL Normal <11.9 [facility] Comment on above: Performed By: #### L 504.2610, L501.1400, L100.0500, L500.4050, L501.0900, L100.4500 ####[facility] [address] [place], [address] UR CREAT 23.00 mg/dL Normal NO RANGE EST. [facility] Comment on above: Performed By: #### L 504.2610, L501.1400, L100.0500, L500.4050, L501.0900, L100.4500 ####[facility] [address] [place], [address] Uric Acidon 02-26-2024 URIC 3.7 mg/dL Normal 2.6-6.0 [facility] Comment on above: Order Comment: 1 Result Comment: The drugs N-Acetylcysteine and Metamizole may falselydepress this assay. Performed By: #### L 504.2610, L501.1400, L100.0500, L500.4050, L501.0900, L100.4500 ####[facility] [address] [place], [place], [id number] OB Triage Progress Noteon OB Triage Progress Note Normal [facility] Workers' Compensation Magistrate Office Visit Reporton 02-22-2024 Workers' Compensation Magistrate Office Visit Report Normal [facility] AST(SGOT)on 02-21-2024 AST [Catalytic activity/Vol] 10 U/L Low 15-37 [facility] Comment on above: Performed By: #### L 501.1105, L501.1400, L501.4100, L501.4405, L400.0001, L501.0900, L100.0500 ####[facility] [address] [place], [address] Alanine Aminotransferas (SGP T)on 02-21-2024 ALT [Catalytic activity/Vol] 13 U/L Normal 13-56 [facility] Comment on above: Performed By: #### L 501.1105, L501.1400, L501.4100, L501.4405, L400.0001, L501.0900, L100.0500 ####[facility] [address] [place], [address] CBC W/Diff, Automatedon 08- Absolute Lymph Normal 0.83-4.51 [facility] Comment on above: Performed By: #### L 100.0625, L100.0100 ####[facility] [address] [place], [address] Absolute Neut Normal 2.0-7.7 [facility] Comment on above: Performed By: #### L 100.0625, L100.0100 ####[facility] [address] [place], [address] BASO% Normal 0-1 [facility] Comment on above: Performed By: #### L 100.0625, L100.0100 ####[facility] [address] [place], [address] EO% Normal 0-5 [facility] Comment on above: Performed By: #### L 100.0625, L100.0100 ####[facility] [address] [place], [address] HCT Normal 37-47 [facility] Comment on above: Performed By: #### L 100.0625, L100.0100 ####[facility] [address] [place], [address] HGB Normal 12.0-15.0 [facility] Comment on above: Performed By: #### L 100.0625, L100.0100 ####[facility] [address] [place], [address] IG% Normal 0.0-0.9 [facility] Comment on above: Result Comment: IG% - Immature Granulocytes (promyelocytes, myelocytes andmetamyelocytes) > 1% indicates that a LEFT SHIFT is Present. Performed By: #### L 100.0625, L100.0100 ####[facility] [address] [place], [address] LY% Normal 19-41 [facility] Comment on above: Performed By: #### L 100.0625, L100.0100 ####[facility] [address] [place], [address] MCH Normal 27.0-32.0 [facility] Comment on above: Performed By: #### L 100.0625, L100.0100 ####[facility] [address] [place], [address] MCHC Normal 32-36 [facility] Comment on above: Performed By: #### L 100.0625, L100.0100 ####[facility] [address] [place], [address] MCV Normal 81-99 [facility] Comment on above: Performed By: #### L 100.0625, L100.0100 ####[facility] [address] [place], [address] MONO% Normal 0-10 [facility] Comment on above: Performed By: #### L 100.0625, L100.0100 ####[facility] [address] [place], [address] MPV Normal 6.2-12.0 [facility] Comment on above: Performed By: #### L 100.0625, L100.0100 ####[facility] [address] [place], [address] NEUT% Normal 47-70 [facility] Comment on above: Performed By: #### L 100.0625, L100.0100 ####[facility] [address] [place], [address] NUCLEATED RBC Normal 0-5 [facility] Comment on above: Performed By: #### L 100.0625, L100.0100 ####[facility] [address] [place], [address] RBC Normal 4.2-5.4 [facility] Comment on above: Performed By: #### L 100.0625, L100.0100 ####[facility] [address] [place], [address] RDW CV Normal 11.6-14.6 [facility] Comment on above: Performed By: #### L 100.0625, L100.0100 ####[facility] [address] [place], [address] RDW SD Normal 35.1-43.9 [facility] Comment on above: Performed By: #### L 100.0625, L100.0100 ####[facility] [address] [place], [address] WBC Normal 4.4-11.0 [facility] Comment on above: Performed By: #### L 100.0625, L100.0100 ####[facility] [address] [place], [address] BASO# Normal [facility] Comment on above: Performed By: #### L 100.0625, L100.0100 ####[facility] [address] [place], [address] EOS# Normal [facility] Comment on above: Performed By: #### L 100.0625, L100.0100 ####[facility] [address] [place], [address] IG# Normal [facility] Comment on above: Performed By: #### L 100.0625, L100.0100 ####[facility] [address] [place], [address] LYMPH# Normal [facility] Comment on above: Performed By: #### L 100.0625, L100.0100 ####[facility] [address] [place], [address] MONO # Normal [facility] Comment on above: Performed By: #### L 100.0625, L100.0100 ####[facility] [address] [place], [address] Neutrophil # Normal [facility] Comment on above: Performed By: #### L 100.0625, L100.0100 ####[facility] [address] [place], [address] CBC-Complete Blood Cnt No Di ffon 02-21-2024 PLT TNP Normal 150-450 [facility] Comment on above: Result Comment: José Miguel boston note: For this sample, a platelet estimate isprovided rather than a platelet count due to plateletclumping. Other parameters associated with this sample arenot affected by platelet clumping. If a more accurateplatelet count is required, a redraw of the patient will benecessary. Performed By: #### L 501.1105, L501.1400, L501.4100, L501.4405, L400.0001, L501.0900, L100.0500 ####[facility] [address] [place], [address] PLATELET COUNTon 02-21-2024 Platelets (Bld) [#/Vol] 151 10*3/uL Normal 150-450 [facility] Comment on above: Performed By: #### L 100.0625, L100.0100 ####[facility] [address] [place], [address] Protein+Creatinine Ratio,Uri neon 02-21-2024 PROT:CRE RATIO 116 mg/g CRE Normal 0-200 [facility] Comment on above: Performed By: #### L 501.1105, L501.1400, L501.4100, L501.4405, L400.0001, L501.0900, L100.0500 ####[facility] [address] [place], [address] Protein (U) [Mass/Vol] 11.9 mg/dL High <11.9 [facility] Comment on above: Performed By: #### L 501.1105, L501.1400, L501.4100, L501.4405, L400.0001, L501.0900, L100.0500 ####[facility] [address] [place], [address] UR CREAT 103.00 mg/dL Normal NO RANGE EST. [facility] Comment on above: Performed By: #### L 501.1105, L501.1400, L501.4100, L501.4405, L400.0001, L501.0900, L100.0500 ####[facility] [address] [place], [address] Serum Creatinine AND GFRon 0 - Creatinine [Mass/Vol] 0.50 mg/dL Low 0.55-1.02 [facility] Comment on above: Result Comment: The validity of the calculated GFR GFRAA in patients over70 years has not been determined. Clinical correlation isessential. Performed By: #### L 501.1105, L501.1400, L501.4100, L501.4405, L400.0001, L501.0900, L100.0500 ####[facility] [address] [place], [address] ECRCL 170.96 ml/min Normal [facility] Comment on above: Performed By: #### L 501.1105, L501.1400, L501.4100, L501.4405, L400.0001, L501.0900, L100.0500 ####[facility] [address] [place], [address] EST GFR - AA 180 mL/min Normal >60 [facility] Comment on above: Result Comment: Afri can [place] GFR Calc Performed By: #### L 501.1105, L501.1400, L501.4100, L501.4405, L400.0001, L501.0900, L100.0500 ####[facility] [address] [place], [place], [id number] GFR/1.73 sq M.predicted among non-blacks MDRD (S/P/Bld) [Vol rate/Area] 149 mL/min/{1.73_m2} Normal >60 [facility] Comment on above: Result Comment: Non- GFR Calc Performed By: #### L 501.1105, L501.1400, L501.4100, L501.4405, L400.0001, L501.0900, L100.0500 ####[facility] [address] [place], [place], [id number] Uric Acidon 02-21-2024 URIC 4.5 mg/dL Normal 2.6-6.0 [facility] Comment on above: Result Comment: The drugs N-Acetylcysteine and Metamizole may falselydepress this assay. Performed By: #### L 501.1105, L501.1400, L501.4100, L501.4405, L400.0001, L501.0900, L100.0500 ####[facility] [address] [place], [place], [phone] Urinalysis, Completeon 02-20 BACTERIA RARE Normal None Seen [facility] Comment on above: Order Comment: COLLE CTOR TO SPECIFY Performed By: #### L 501.1105, L501.1400, L501.4100, L501.4405, L400.0001, L501.0900, L100.0500 ####[facility] [address] [place], [place], [id number] EPI,SQUAMOUS 0-5 SEEN Normal 5-10 [facility] Comment on above: Order Comment: COLLE CTOR TO SPECIFY Performed By: #### L 501.1105, L501.1400, L501.4100, L501.4405, L400.0001, L501.0900, L100.0500 ####[facility] [address] [place], [address] Mucus Ql (Urine sed) [address] [facility] Comment on above: Order Comment: COLLE CTOR TO SPECIFY Performed By: #### L 501.1105, L501.1400, L501.4100, L501.4405, L400.0001, L501.0900, L100.0500 ####[facility] [address] [place], [address] RBC 0 SEEN Normal 0-5 [facility] Comment on above: Order Comment: COLLE CTOR TO SPECIFY Performed By: #### L 501.1105, L501.1400, L501.4100, L501.4405, L400.0001, L501.0900, L100.0500 ####[facility] [address] [place], [address] WBC 0 SEEN Normal [address] [place] [address] Comment on above: Order Comment: COLLE CTOR TO SPECIFY Performed By: #### L 501.1105, L501.1400, L501.4100, L501.4405, L400.0001, L501.0900, L100.0500 ####[facility] [address] [place], [address] Urgent Care Visit Reporton 0 02-19-2024 Urgent Care Visit Report Normal [facility] Workers' Compensation Magistrate Office Visit Reporton 02-13-2024 Workers' Compensation Magistrate Office Visit Report Normal [facility] Workers' Compensation Magistrate Office Visit Reporton 01-30-2024 Workers' Compensation Magistrate Office Visit Report Normal [facility] Urine Cultureon 01-17-2024 URC Mixed Gram Positive Organisms [place] Count 80,000-100,000 MIX[facility] Mixed contaminants. Submit a new specimen if indicated. Normal [facility] Comment on above: Performed By: #### M 100.2200 ####[facility] [address] [place], [address] Workers' Compensation Magistrate Office Visit Reporton 01-15-2024 Workers' Compensation Magistrate Office Visit Report Normal [facility] Culture, urineOrdered By: Ajit Moreno on 10-20-2023 Bacteria identified Cx Nom (U) Culture exhibits no growth. [facility] Gram stain for investigation of transfusion reactionOrdered By: Piedad Moreno on 10-20-2023 Microscopic observation Gram stain Nom (Unsp spec) [facility] Laboratory - Chemistry and C hemistry - challengeon 10-20-2023 Bilirubin Ql (U) Negative [facility] Glucose Ql (U) Negative [facility] Ketones Ql (U) Small (15+) [facility] pH (U) 5 [pH] [facility] Specific gravity (U) [Rel density] 1.010 [facility] Urobilinogen (U) [Mass/Vol] Negative [facility] Laboratory - Hematology and Cell countson 10-20-2023 Hemoglobin Ql (U) Negative [facility] Laboratory - Specimen inform ationon 10-20-2023 Clarity (U) Clear [facility] Color (U) Colorless [facility] Laboratory - Urinalysison Nitrite Ql (U) Negative [facility] Protein Ql (U) Negative [facility] No Panel InformationOrdered By: Piedad Moreno on 10-20-2023 Genital Culture Presumptive C albicans [facility] No Panel Informationon 10-19 Urine Leukocytes Negatve [facility] Urine Non-Hemolyzed Blood Negative [facility] Laboratory - Chemistry and C hemistry - challengeon 09-19-2023 Glucose Ql (U) Negative [facility] Laboratory - Urinalysison Protein Ql (U) Negative [facility] Absolute lymphocyte countOrd ered By: Reina Romero on 09-12-2023 Lymphocytes Auto (Unsp spec) [#/Vol] 1.42 10*3/uL 0.83-4.51 [facility] Automated lymphocyte count a s percentage of total leukocytesOrdered By: Reina Romero on 09-12-2023 Lymphocytes/100 WBC Auto (Unsp spec) 23.9 % 19-41 [facility] Basophil percentageOrdered B y: Reina Romero on 09-12-2023 Basophils/100 WBC (Bld) 0.3 % 0-1 [facility] Bilirubin [Mass/Vol] 0.70 mg/dL 0.20-1.00 [facility] Comment on above: For patients on eltr ombopag therapy, use of Dimension [place] TBIL is not recommended. Chloride [Moles/Vol] 107 mmol/L 98-107 [facility] Eosinophils/100 WBC (Bld) 2.4 % 0-5 [facility] Glucose [Mass/Vol] 67 mg/dL 74-106 [facility] Hemoglobin (Bld) [Mass/Vol] 12.4 g/dL 12.0-15.0 [facility] Monocytes/100 WBC (Bld) 5.2 % 0-10 [facility] Neutrophils (Bld) [#/Vol] 4.1 10*3/uL 2.0-7.7 [facility] Neutrophils/100 WBC (Bld) 68.0 % 47-70 [facility] Potassium [Moles/Vol] 3.2 mmol/L 3.5-5.1 [facility] Protein [Mass/Vol] 6.9 g/dL 6.4-8.2 [facility] Sodium [Moles/Vol] 139 mmol/L 136-145 [facility] WBC (Bld) [#/Vol] 6.0 10*3/uL 4.4-11.0 [facility] Determination of erythrocyte mean corpuscular volume (MCV)Ordered By: Reina Romero on 09-12-2023 MCV (RBC) [Entitic vol] 87.5 fL 81-99 [facility] Erythrocyte distribution wid th ratioOrdered By: Reina Romero on 09-12-2023 Erythrocyte distribution width (RBC) [Ratio] 12.5 % 11.6-14.6 [facility] Erythrocyte distribution wid th standard deviationOrdered By: Reina Romero on 09-12-2023 Erythrocyte distribution width (RBC) [Entitic vol] 39.5 fL 35.1-43.9 [facility] HIV 1 and HIV-2 antibody ass ay with HIV-1 p24 antigen detectionOrdered By: Reina Romero on 09-12-2023 HIV 1+2 Ab+HIV1 p24 Ag IA Ql Non-Reactive Nonreactive [facility] Hematocrit Auto (Bld) [Volum e fraction]Ordered By: Reina Romero on 09-12-2023 Hematocrit (Bld) [Volume fraction] 35.7 % 37-47 [facility] Immature granulocytes/100 WB C Auto (Bld)Ordered By: Reina Romero on 09-12-2023 Immature granulocytes/100 WBC (Bld) 0.200 % 0.0-0.9 [facility] Comment on above: IG% - Immature Granu locytes (promyelocytes, myelocytes and metamyelocytes) > 1% indicates that a LEFT SHIFT is Present. Laboratory - Chemistry and C hemistry - challengeOrdered By: Reina Romero on 09-12-2023 Albumin/Globulin [Mass ratio] 1.2 {ratio} 0.9-2.4 [facility] ALP [Catalytic activity/Vol] 46 U/L 45-117 [facility] ALT [Catalytic activity/Vol] 15 U/L 13-56 [facility] CO2 [Moles/Vol] 23.0 mmol/L 21.0-32.0 [facility] Globulin (S) [Mass/Vol] 3.2 g/dL 2.2-4.2 [facility] Urea nitrogen/Creatinine [Mass ratio] 16.5 mg/mg 10-20 [facility] Laboratory - Hematology and Cell countsOrdered By: Reina Romero on 09-12-2023 MCH (RBC) [Entitic mass] 30.4 pg 27.0-32.0 [facility] MCHC (RBC) [Mass/Vol] 34.7 g/dL 32-36 [facility] Nucleated RBC/100 WBC (Bld) [Ratio] 0 % 0-5 [facility] Platelet mean volume (Bld) [Entitic vol] 9.3 fL 6.2-12.0 [facility] Platelets (Bld) [#/Vol] 258 10*3/uL 150-450 [facility] No Panel InformationOrdered By: Reina Romero on 09-12-2023 Estimated GFR (MDRD) Amer 145 mL/min >60 [facility] Comment on above: GFR Calc Estimated GFR (MDRD) Non-Af Amer 119 mL/min >60 [facility] Comment on above: Non- GFR Calc Hepatitis B Surface Antigen Non-Reactive Nonreactive [facility] Hepatitis C Antibody Non-Reactive Nonreactive [facility] Comment on above: Non Reactive: < 0.8 Equivocal: >/= 0.8 to < 1.0 Reactive: >/= 1.0The CDC requires that a reactive/equivocal HCV antibody result be sent out for confirmation. HCV Quant by PCR testing. Miscellaneous Test Comment SEE SCANNED REPORT [facility] Rubella IgG Antibody Reactive Nonreactive [facility] Comment on above: Antibody Results Int erpretation of Immune Status Non Reactive Presumed Non-Immune Equivocal Equivocal Reactive Presumed Immune RBC Auto (Bld) [#/Vol]Ordere d By: Reina Romero on 09-12-2023 RBC (Bld) [#/Vol] 4.08 10*6/uL 4.2-5.4 [facility] Serum Treponema species anti body detectionOrdered By: Reina Romero on 09-12-2023 Treponema sp Ab Ql (S) Non-Reactive [facility] Serum or plasma calcium jazmine urement (mass/volume)Ordered By: Reina Romero on 09-12-2023 Calcium [Mass/Vol] 9.2 mg/dL 8.5-10.1 [facility] Serum or plasma creatinine m easurement (mass/volume)Ordered By: Reina Romero on 09-12-2023 Creatinine [Mass/Vol] 0.61 mg/dL 0.55-1.02 [facility] Comment on above: The validity of the calculated GFR & GFRAA in patients over 70 years has not been determined. Clinical correlation is essential. Serum or plasma urea nitroge n measurement (mass/volume)Ordered By: Reina Romero on 09-12-2023 Urea nitrogen [Mass/Vol] 10 mg/dL 7-18 [facility] Thin prep Papanicolaou smear with manual screeningOrdered By: Reina Romero on 09-12-2023 Thin prep Papanicolaou smear with manual screening 3.7 g/dL 3.2-5.0 [facility] Thin prep Papanicolaou smear with manual screening 11 U/L 15-37 [facility] Thin prep Papanicolaou smear with manual screening 9 5-15 [facility] Chlamydia trachomatis rRNA d etection by probe and target amplification methodOrdered By: Reina Romero on 08-21-2023 C. trachomatis rRNA GUCCI+probe Ql (Unsp spec) Negative Negative [facility] Culture, urineOrdered By: Wade Romero on 08-21-2023 Bacteria identified Cx Nom (U) Culture exhibits no growth. [facility] Bacteria identified Cx Nom (U) Culture exhibits no growth. [facility] Laboratory - Microbiology an d Antimicrobial susceptibilityOrdered By: Reina Romero on 08-21-2023 N. gonorrhoeae DNA GUCCI+probe Ql (Unsp spec) Negative Negative [facility] Comment on above: Performed at: =[address] [id number] Director: Rachel Smallwood MD, Phone: [phone] Thin prep Papanicolaou smear with manual screeningOrdered By: Reina Romero on 08-21-2023 Protein (U) [Mass/Vol] 10.0 mg/dL 0.0-11.8 [facility] Urine creatinine measurement (mass/volume)Ordered By: Reina Romero on 08-21-2023 Creatinine (U) [Mass/Vol] 70.10 mg/dL NO RANGE EST. [facility] Urine protein/creatinine mas s ratioOrdered By: Reina Romero on 08-21-2023 Protein/Creatinine (U) [Mass ratio] 143 mg/g CRE 0-200 [facility] Absolute lymphocyte countOrd ered By: Cholo Smith on 05-26-2023 Lymphocytes Auto (Unsp spec) [#/Vol] 1.71 10*3/uL 0.83-4.51 [facility] Basophil percentageOrdered B y: Cholo Smith on 05-26-2023 Basophils/100 WBC (Bld) 1.1 % 0-1 [facility] Eosinophils/100 WBC (Bld) 3.6 % 0-5 [facility] Neutrophils (Bld) [#/Vol] 2.5 10*3/uL 2.0-7.7 [facility] Neutrophils/100 WBC (Bld) 52.6 % 47-70 [facility] WBC (Bld) [#/Vol] 4.7 10*3/uL 4.4-11.0 [facility] Blood erythrocytes count (nu mber/volume)Ordered By: Cholo Smith on 05-26-2023 RBC (Bld) [#/Vol] 4.24 10*6/uL 4.2-5.4 [facility] Blood hemoglobin measurement (mass/volume)Ordered By: Cholo Smith on 05-26-2023 Hemoglobin (Bld) [Mass/Vol] 13.4 g/dL 12.0-15.0 [facility] Blood lymphocytes/100 leukoc ytesOrdered By: Cholo Smith on 05-26-2023 Lymphocytes/100 WBC (Bld) 36.3 % 19-41 [facility] Blood monocytes/100 leukocyt esOrdered By: Cholo Smith on 05-26-2023 Monocytes/100 WBC (Bld) 6.2 % 0-10 [facility] Blood platelet mean volumeOr dered By: Cholo Smith on 05-26-2023 Platelet mean volume (Bld) [Entitic vol] 9.5 fL 6.2-12.0 [facility] Determination of erythrocyte mean corpuscular volume (MCV)Ordered By: Cholo Smith on 05-26-2023 MCV (RBC) [Entitic vol] 92.0 fL 81-99 [facility] Hematocrit Auto (Bld) [Volum e fraction]Ordered By: Cholo Smith on 05-26-2023 Hematocrit (Bld) [Volume fraction] 39.0 % 37-47 [facility] Iron measurement (mass/mass) Ordered By: Cholo Smith on 05-26-2023 Iron (Unsp spec) [Mass/Mass] 49 ug/dL 50-170 [facility] Laboratory - Hematology and Cell countsOrdered By: Cholo Smith on 05-26-2023 Erythrocyte distribution width (RBC) [Entitic vol] 44.3 fL 35.1-43.9 [facility] Erythrocyte distribution width (RBC) [Ratio] 13.5 % 11.6-14.6 [facility] Immature granulocytes/100 WBC (Bld) 0.200 % 0.0-0.9 [facility] Comment on above: IG% - Immature Granu locytes (promyelocytes, myelocytes and metamyelocytes) > 1% indicates that a LEFT SHIFT is Present. MCH (RBC) [Entitic mass] 31.6 pg 27.0-32.0 [facility] Nucleated RBC/100 WBC (Bld) [Ratio] 0 % 0-5 [facility] MCHC Auto (RBC) [Mass/Vol]Or dered By: Cholo Smith on 05-26-2023 MCHC (RBC) [Mass/Vol] 34.4 g/dL 32-36 [facility] Platelets bldOrdered By: Migdalia Smith on 05-26-2023 Platelets (Bld) [#/Vol] 349 10*3/uL 150-450 [facility] Serum or plasma ferritin esther surement (mass/volume)Ordered By: Cholo Smith on 05-26-2023 Ferritin [Mass/Vol] 11 ng/mL 8-252 [facility] XR Tibia and Fibula - left A P and Lateralon 05-15-2023 IMPRESSION: Negative Corrective Therapist: MALOU Transcribe Date/Time: May 15 2023 10:18A Dictated by : JENNI CHINCHILLA MD This examination was interpreted and the report reviewed and electronically signed by: JENNI CHINCHILLA MD on May 15 2023 10:18AM [facility] * * *Final Report* * * DATE OF EXAM: May 12 2023 10:37AM [facility] 5265 - XR TIBIA FIBULA 2V AP/LAT LT / PROCEDURE REASON: M79.662-Pain of left calf * * * * Physician Interpretation * * * * PROCEDURE: Left tibia/fibula INDICATION: Pain of left calf . TECHNIQUE: XR TIBIA FIBULA 2V AP/LAT LT COMPARISON: None FINDINGS: No fractures or dislocations are seen. The bones, joint spaces and soft tissues are unremarkable. [facility] Provider, Cathy Sona [facility] - 05/15/2023 * * *Final Report* * * DATE OF EXAM: May 12 2023 10:37AM [facility] 5265 - XR TIBIA FIBULA 2V AP/LAT LT / PROCEDURE REASON: M79.662-Pain of left calf * * * * Physician Interpretation * * * * PROCEDURE: Left tibia/fibula INDICATION: Pain of left calf . TECHNIQUE: XR TIBIA FIBULA 2V AP/LAT LT COMPARISON: None FINDINGS: No fractures or dislocations are seen. The bones, joint spaces and soft tissues are unremarkable. IMPRESSION IMPRESSION: Negative Corrective Therapist: MALOU Transcribe Date/Time: May 15 2023 10:18A Dictated by : JENNI CHINCHILLA MD This examination was interpreted and the report reviewed and electronically signed by: JENNI CHINCHILLA MD on May 15 2023 10:18AM EST [facility] XR Tibia and Fibula - left A P and LateralOrdered By: [facility]cf Provider on 05-15-2023 [facility] CNOVon 05-12-2023 CNOV Office Visit (ORMDNA ) MANDI VALENET ([id number]) 1990 F Date Time Provider Department 05/12/23 10:30 AM KELLY CALABRESE During your visit today, we recorded the following information about you: Kelly Calabrese PA-C 05/12/2023 2:41 PM Signed Kelly Calabrese PA-C Department of Orthopaedics Orthopaedics [address] [place] [id number] Dept: [phone] May 12, 2023 SUBJECTIVE: CHIEF COMPLAINT: Established Patient and Pain of the Right Lower Leg HPI: Ms. Mandi Valente is a 32 year old female. She presents today with left lower leg pain that has been present for the past 1.5 weeks since she felt a pop while painting pumpkins. Today she rates her pain a 0 on a scale of 0 to 10 at rest. She states that her pain increases to a 4/10 with stairs and squatting. She notes that her pain has improved since her initial injury. She has been taking ibuprofen as needed. She denies any numbness/tingling, weakness or previous left sided surgeries. Of note, she did undergo right greater troch bursectomy in November of this year. Past Medical History: PAST MEDICAL HISTORY Diagnosis Date Unspecified hemorrhoids without mention of complication Past Surgical History: PAST SURGICAL HISTORY Procedure Laterality Date REM LESIO TRUNK,ARM,LEG 1.1 -2.0CM 09/20/2010 Exc. left medial buttock skin lesion REM LESION TRUNK,ARM,LEG 0.6 -1.0CM 10/11/2010 Exc. skin lesions x 3 REPAIR EPIGASTRIC HERNIA,REDUC 2020 TONSILLECTOMY AND ADENOIDECTOMY Family History: FAMILY HISTORY Problem Relation Age of Onset None Mother fibromyalgia., hypertension Hypertension Father Hypertension Sister Hypertension Brother Social History: Social History Tobacco Use Smoking status: Never Smokeless tobacco: Never Vaping Use Vaping Use: Never used Substance Use Topics Alcohol use: No Drug use: Never Medications: Current Outpatient Medications Medication Sig polyethylene glycol 3350 (MIRALAX) 17 gram/dose powder Take 17 g by mouth once daily. iron,carb/vit C/vit B12/folic (IRON 100 PLUS ORAL) Take 60 mg by mouth once daily. meloxicam (MOBIC) 15 mg tablet Take 15 mg by mouth once daily. multivit-min/iron/fol ic acid/K (ADULTS MULTIVITAMIN ORAL) Take by mouth. oxyCODONE-acetaminoph en (PERCOCET) 5-325 mg tablet Take 1 tablet by mouth every 8 hours as needed for pain. No current facility-administered medications for this visit. Allergies: Patient has no known allergies. ROS: General: negative for fatigue, malaise, weight loss/gain Musculoskeletal: see HPI Psych: no depression, anxiety OBJECTIVE: Ms. Mandi Valente is a pleasant 32 year old in no apparent distress. Gen:There were no vitals taken for this visit. nl development, obese, no deformities ENT: Normocephalic, normal hearing, moist mucosa CV: Pulses:DP/PT= 2+ and symmetric, capillary refill < 2 secs, no peripheral edema/varicosities Skin: no rash, bruising or lesions. Good turgor. Psych: cooperative and appropriate, alert and oriented x 3, good mood and affect. Musculoskeletal: Left Ankle Exam Left ankle exam is normal. Muscle Strength Dorsiflexion: 5/5 Plantar flexion: 4/5 Anterior tibial: 5/5 Posterior tibial: 5/5 Comments: Mid calf tender to palpation Negative clarissa sign No swelling or erythema Left Knee Exam Left knee exam is normal. IMAGING: Images taken today and to my interpretation show no acute abnormality. Full imaging report available in [facility]. ASSESSMENT: S86.812D Strain of calf muscle, left, initial encounter (primary encounter diagnosis) PLAN: Reviewed images taken today. Recommendation for calf strain is physical therapy and activity modification as needed. Patient agreeable with plan and will follow up in 8 weeks. FOLLOW UP INSTRUCTIONS: 8 weeks Kelly Calabrese PA-C Allergies As of Date: 05/12/2023 (No Known Allergies) Date Reviewed: 05/12/2023 Reviewed by: Kelly Calabrese PA-C - Fully Assessed Reason for Visit: Established Patient [175] Pain [78] Primary Visit Diagnosis:Strain of calf muscle, left, initial encounter [S86.284Z] Order(s):CONSULT TO PHYSICAL THERAPY [6092] Order #: [id number]: 1 FUTURE Prescriptions as of 05/12/2023 - polyethylene glycol 3350 (MIRALAX) 17 gram/dose powder Take 17 g by mouth once daily. - iron,carb/vit C/vit B12/folic (IRON 100 PLUS ORAL) Take 60 mg by mouth once daily. - oxyCODONE-acetaminoph en (PERCOCET) 5-325 mg tablet Take 1 tablet by mouth every 8 hours as needed for pain. - meloxicam (MOBIC) 15 mg tablet Take 15 mg by mouth once daily. - multivit-min/iron/fol ic acid/K (ADULTS MULTIVITAMIN ORAL) Take by mouth. Problem List As Of Date 05/12/2023 Noted Resolved HEMORRHOIDS NOS [K64.9] Melanocytic Nevus of trunk: recurrent nevi of R*08/30/2010 Atypical nevus of multiple sites of trunk: c (more content not included)... Normal [facility] XR TIBIA FIBULA 2V AP/LAT LT on 05-12-2023 XR TIBIA FIBULA 2V AP/LAT LT * * *Final Report* * * DATE OF EXAM: May 12 2023 10:37AM [facility] 5265 - XR TIBIA FIBULA 2V AP/LAT LT / PROCEDURE REASON: M79.662-Pain of left calf * * * * Physician Interpretation * * * * PROCEDURE: Left tibia/fibula INDICATION: Pain of left calf . TECHNIQUE: XR TIBIA FIBULA 2V AP/LAT LT COMPARISON: None FINDINGS: No fractures or dislocations are seen. The bones, joint spaces and soft tissues are unremarkable. IMPRESSION: Negative Corrective Therapist: MALOU Transcribe Date/Time: May 15 2023 10:18A Dictated by : JENNI CHINCHILLA MD This examination was interpreted and the report reviewed and electronically signed by: JENNI CHINCHILLA MD on May 15 2023 10:18AM EST [id number] Normal [facility] XR Tibia and Fibula - left A P and Lateralon 05-12-2023 Radiology Study observation (narrative) Clemente milner [facility] Absolute lymphocyte countOrd ered By: Nicole Grossgar on 03-22-2023 Lymphocytes Auto (Unsp spec) [#/Vol] 1.76 10*3/uL 0.83-4.51 [facility] Basophil percentageOrdered B y: Nicoleelieser Rhodes on 03-22-2023 Basophils/100 WBC (Bld) 0.7 % 0-1 [facility] Bilirubin [Mass/Vol] 0.40 mg/dL 0.20-1.00 [facility] Comment on above: For patients on eltr ombopag therapy, use of Dimension [place] TBIL is not recommended. Chloride [Moles/Vol] 109 mmol/L 98-107 [facility] Cholesterol [Mass/Vol] 134 mg/dL <200 [facility] Comment on above: <200 mg/dL Desirable 200-240 mg/dL Borderline >240 mg/dL High Risk Eosinophils/100 WBC (Bld) 3.8 % 0-5 [facility] Glucose [Mass/Vol] 81 mg/dL 74-106 [facility] Neutrophils (Bld) [#/Vol] 3.5 10*3/uL 2.0-7.7 [facility] Neutrophils/100 WBC (Bld) 60.1 % 47-70 [facility] Potassium [Moles/Vol] 3.7 mmol/L 3.5-5.1 [facility] Protein [Mass/Vol] 6.9 g/dL 6.4-8.2 [facility] Sodium [Moles/Vol] 140 mmol/L 136-145 [facility] Triglyceride [Mass/Vol] 58 mg/dL <199 [facility] Comment on above: The drugs N-Acetylcy steine and Metamizole may falsely depress this assay.Serum Triglycerides Reference Interval Normal <150 mg/dL Borderline high 150 - 199 mg/dL High 200 - 499 mg/dL Very High > or = 500 mg/dL WBC (Bld) [#/Vol] 5.9 10*3/uL 4.4-11.0 [facility] Blood erythrocytes count (nu mber/volume)Ordered By: Nicole Rhodes on 03-22-2023 RBC (Bld) [#/Vol] 3.98 10*6/uL 4.2-5.4 [facility] Blood hemoglobin measurement (mass/volume)Ordered By: Nicole Rhodes on 03-22-2023 Hemoglobin (Bld) [Mass/Vol] 11.0 g/dL 12.0-15.0 [facility] Blood lymphocytes/100 leukoc ytesOrdered By: Nicole Rhodes on 03-22-2023 Lymphocytes/100 WBC (Bld) 30.1 % 19-41 [facility] Blood monocytes/100 leukocyt esOrdered By: Nicoleelieser Rhodes on 03-22-2023 Monocytes/100 WBC (Bld) 4.8 % 0-10 [facility] Blood platelet mean volumeOr dered By: Nicole Rhodes on 03-22-2023 Platelet mean volume (Bld) [Entitic vol] 10.3 fL 6.2-12.0 [facility] Determination of erythrocyte mean corpuscular volume (MCV)Ordered By: Nicole Rhodes on 03-22-2023 MCV (RBC) [Entitic vol] 88.2 fL 81-99 [facility] Hematocrit Auto (Bld) [Volum e fraction]Ordered By: Nicole Rhodes on 03-22-2023 Hematocrit (Bld) [Volume fraction] 35.1 % 37-47 [facility] Iron measurement (mass/mass) Ordered By: Nicole Rhodes on 03-22-2023 Iron (Unsp spec) [Mass/Mass] 33 ug/dL 50-170 [facility] Laboratory - Chemistry and C hemistry - challengeOrdered By: Nicole Rhodes on 03-22-2023 ALP [Catalytic activity/Vol] 45 U/L 45-117 [facility] ALT [Catalytic activity/Vol] 13 U/L 13-56 [facility] CO2 [Moles/Vol] 28.0 mmol/L 21.0-32.0 [facility] Cobalamin (Vitamin B12) [Mass/Vol] 420 pg/mL 211-911 [facility] Globulin (S) [Mass/Vol] 3.0 g/dL 2.2-4.2 [facility] Urea nitrogen/Creatinine [Mass ratio] 10.5 mg/mg 10-20 [facility] Laboratory - Hematology and Cell countsOrdered By: Nicole Rhodes on 03-22-2023 Erythrocyte distribution width (RBC) [Entitic vol] 41.7 fL 35.1-43.9 [facility] Erythrocyte distribution width (RBC) [Ratio] 12.9 % 11.6-14.6 [facility] Immature granulocytes/100 WBC (Bld) 0.500 % 0.0-0.9 [facility] Comment on above: IG% - Immature Granu locytes (promyelocytes, myelocytes and metamyelocytes) > 1% indicates that a LEFT SHIFT is Present. MCH (RBC) [Entitic mass] 27.6 pg 27.0-32.0 [facility] Nucleated RBC/100 WBC (Bld) [Ratio] 0 % 0-5 [facility] MCHC Auto (RBC) [Mass/Vol]Or dered By: Nicole Rhodes on 03-22-2023 MCHC (RBC) [Mass/Vol] 31.3 g/dL 32-36 [facility] No Panel InformationOrdered By: Nicole Rhodes on 03-22-2023 Estimated GFR (MDRD) Amer 111 mL/min >60 [facility] Comment on above: GFR Calc Estimated GFR (MDRD) Non-Af Amer 92 mL/min >60 [facility] Comment on above: Non- GFR Calc Vitamin D 25-Hydroxy 51.8 ng/mL [facility] Comment on above: Vitamin D 25(OH) Sta tus Range Deficiency <20 ng/mL (50nmol/L) Insufficiency 20 - 30 ng/mL (50 - 75 nmol/L) Sufficiency 30 - 100 ng/mL (75 - 250 nmol/L) Toxicity >100 ng/mL (>250 nmol/L) Platelets bldOrdered By: Dory elieser Carmelo on 03-22-2023 Platelets (Bld) [#/Vol] 276 10*3/uL 150-450 [facility] Serum or plasma albumin jazmine urement (mass/volume)Ordered By: Nicole Rhodes on 03-22-2023 Albumin [Mass/Vol] 3.9 g/dL 3.2-5.0 [facility] Serum or plasma albumin/glob ulin mass ratioOrdered By: Nicole Rhodes on 03-22-2023 Albumin/Globulin [Mass ratio] 1.3 {ratio} 0.9-2.4 [facility] Serum or plasma calcium jazmine urement (mass/volume)Ordered By: Nicole Rhodes on 03-22-2023 Calcium [Mass/Vol] 8.8 mg/dL 8.5-10.1 [facility] Serum or plasma cholesterol in HDL measurement (mass/volume)Ordered By: Nicole Rhodes on 03-22-2023 Cholesterol in HDL [Mass/Vol] 52 mg/dL >40 [facility] Comment on above: The drugs N-Acetylcy steine and Metamizole may falsely depress this assay. Reference Range HDL <40 mg/dL Low HDL Cholesterol HDL >or= 60 mg/dL High HDL Cholesterol Serum or plasma cholesterol in VLDL measurement (mass/volume)Ordered By: Nicole Rhodes on 03-22-2023 Cholesterol in VLDL [Mass/Vol] 12 mg/dL 5-40 [facility] Serum or plasma creatinine m easurement (mass/volume)Ordered By: Nicole Rhodes on 03-22-2023 Creatinine [Mass/Vol] 0.76 mg/dL 0.55-1.02 [facility] Comment on above: The validity of the calculated GFR & GFRAA in patients over 70 years has not been determined. Clinical correlation is essential. Serum or plasma ferritin esther surement (mass/volume)Ordered By: Nicole Rhodes on 03-22-2023 Ferritin [Mass/Vol] 5 ng/mL 8-252 [facility] Serum or plasma low density lipoprotein (LDL) cholesterol measurement (mass/volume)Ordered By: Nicole Rhodes on 03-22-2023 Cholesterol in LDL [Mass/Vol] 70 mg/dL 0-130 [facility] Serum or plasma urea nitroge n measurement (mass/volume)Ordered By: Nicole Rhodes on 03-22-2023 Urea nitrogen [Mass/Vol] 8 mg/dL 7-18 [facility] Thin prep Papanicolaou smear with manual screeningOrdered By: Nicole Rhodes on 03-22-2023 Thin prep Papanicolaou smear with manual screening 6 U/L 15-37 [facility] Thin prep Papanicolaou smear with manual screening 3 5-15 [facility] Cervical or vagninal specime n microscopic examination by cytology stain (reported asOrdered By: Jenni Coyle on 03-03-2023 Cytology report Cyto stain Doc (Cvx/Vag) Comment . [facility] Comment on above: The Pap smear is a s creening test designed to aid in thedetection of premalignant and malignant conditions of theuterine cervix. It is not a diagnostic procedure andshould not be used as the sole means of detecting cervicalcancer. Both false-positive and false-negative reports dooccur. Detection in cervical specim en of any of human papilloma virus (HPV) 16, 18, 31, 33,Ordered By: Jenni Coyle on 03-03-2023 HPV 16+18+31+33+35+39+45+51+ 52+56+58+59+66+68 DNA Probe+sig amp Ql (Cvx) Negative Negative [facility] Comment on above: This nucleic acid am plification test detects fourteen high-risk HPV types (16,18,31,33,35,39,45,51,52,56,58,59,66,68)without differentiation. Laboratory - CytologyOrdered By: Jenni Coyle on 03-03-2023 Supervisor Grinding Cyto stain Nom (Cvx/Vag) [ID] Comment . [facility] Comment on above: Alexa Person Cyt otechnologist (ASCP) Laboratory - Miscellaneous t estsOrdered By: Jenni Coyle on 03-03-2023 Service comment (Unsp spec) [Interp] Comment . [facility] Comment on above: This liquid based Th inPrep(R) pap test was screened withthe use of an image guided system. Service comment (Unsp spec) [Interp] . . [facility] Liquid-based cerv Pap + CT/G C by GUCCI w reflex to high-risk HPV for ASCUSOrdered By: Jenni Coyle on 03-03-2023 Cytology report Cyto stain.thin prep Doc (Cvx/Vag) Comment . [facility] Comment on above: Criteria not met, HP V Genotype not performed.Performed at: [facility] [id number] [place], [place] [id number] Director: Kamran Banerjee MD, Phone: [phone] at: - [facility] [id number] Director: Rachel Smallwood MD, Phone: [phone] at: =G - [facility] [id number] Director: Rachel Smallwood MD, Phone: [phone] No Panel InformationOrdered By: Jenni Coyle on 03-03-2023 Pathology report final diagnosis Narrative Comment . [facility] Comment on above: NEGATIVE FOR INTRAEP ITHELIAL LESION OR MALIGNANCY. CNOVon 03-01-2023 CNOV Office Visit (ORMDNA ) MANDI VALENTE ([id number]) 1990 F Date Time Provider Department 03/01/23 10:00 AM CATHRYN MORRELL During your visit today, we recorded the following information about you: Cathryn Morrell DO 03/01/2023 10:32 AM Signed Follow Up Visit Chief Complaint Mandi Valente is a 32 year old female who presents today for follow up office visit. Patient presents with: Right Hip - Pain, Follow Up Left Hip - New History of Present Illness PAIN EVALUATION 02/27/2023 9 Pain Level: 2 Pain Location: Hip-Right Description: Aching Frequency: Intermittent Intervention/Comfort measure: Medication;Reposition Comments: I am only noticing the pain when im laying directly on my right hip HPI: Mandi Valente is a 32 year old female for a follow up visit bilateral hips. Right hip is doing well. Over 3 months out from bursectomy. Only has pain when laying on right hip at night time. Left hip does not have pain, patient inquiring if this could ever happen to that hip as well. Pain history is noted as above. Denies calf pain, numbness, tingling, fever, chills or other constitutional symptoms. Is there any overall improvement in your condition? Yes, pain Any new injury, since being seen last: No REVIEW OF SYMPTOMS: Patient did not have, and does not currently have, any weight loss, malaise, fever, chills, headache, chest pain, chest pressure, palpitations, cough, shortness of breath, orthopnea, paroxsymal nocturnal dyspnea, nausea, vomiting, diarrhea, constipation, melena, hematochezia, urinary difficulties, prolonged bleeding, easily bruising, heat or cold intolerance, new onset joint pain or swelling, new onset extremity weakness or numbness, new onset auditory or visual disturbances, lightheadedness, dizziness, partial loss of consciousness or full loss of consciousness. Current Outpatient Medications Medication Sig meloxicam (MOBIC) 15 mg tablet Take 15 mg by mouth once daily. multivit-min/iron/fol ic acid/K (ADULTS MULTIVITAMIN ORAL) Take by mouth. oxyCODONE-acetaminoph en (PERCOCET) 5-325 mg tablet Take 1 tablet by mouth every 8 hours as needed for pain. No current facility-administered medications for this visit. Physical Exam Vitals: There were no vitals taken for this visit. Psych: Pleasant, good affect and mood General Appearance: Well appearing, alert, in no acute distress, well-hydrated, well nourished.. Skin: Skin color, texture, turgor normal, no suspicious rashes or lesions. Peripheral Pulses: Normal. Neurologic: Gait normal. Reflexes normal and symmetric. Sensation grossly intact.. Lymph Nodes: No cervical lymphadenopathy, No supraclavicular lymphadenopathy, No axillary lymphadenopathy., and No inguinal lymphadenopathy.. Respiratory: No recent pulmonary infection, hemoptysis, chronic cough, or shortness of breath at rest Rheumatologic: Joint deformities: bilateral hip pain Right Hip Exam Right hip exam is normal. Tenderness The patient is experiencing no tenderness. Range of Motion The patient has normal right hip ROM. Muscle Strength The patient has normal right hip strength. Other Erythema: absent Sensation: normal Pulse: present Left Hip Exam Left hip exam is normal. Tenderness The patient is experiencing no tenderness. Range of Motion The patient has normal left hip ROM. Muscle Strength The patient has normal left hip strength. Other Erythema: absent Sensation: normal Pulse: present Last XR Hip/Pelvis - Impression Only XR HIP GENERAL 3V PELV/AP/LAT LEFT Exam End: 03/01/2023 9:50 AM (In process) Assessment and Plan Radiographs: I have independently reviewed films and my findings are the same. and I have reviewed the images with the patient and family. Impression: Encounter Diagnosis ICD-10-CM 1. Pain of right hip M25.551 2. Status post right hip replacement Z96.641 Today, in detail, through a thorough evaluation, we discussed possible etiologies of pain and our plans for further diagnostic and therapeutic interventions. We discussed strategies for decreasing pain and improving strength, stability and motion. Patient's questions were answered in detailed. Patient verbalizes understanding and agrees with the treatment plan as discussed. Xrays of hip negative, awaiting official report Doing well from right hip, no pain in left hip Has lost 20lbs and is happy with her current progress No issues or concerns Patient aware and in agreement of plan. All questions answered. Follow up prn Cathryn Morrell D.O. M.P.H. Allergies As of Date: 03/01/2023 (No Known Allergies) Date Reviewed: 03/01/2023 Reviewed by: Cathryn Morrell, - Fully Assessed Reason for Visit: Pain [78] Follow Up [171] New [[id number]] Primary Visit Diagnosis:Pain of right hip [M25.551] Other Visit D (more content not included)... Normal [facility] XR HIP 3V PELV+ AP/LAT LTon 03-01-2023 XR HIP 3V PELV+ AP/LAT LT * * *Final Report* * * DATE OF EXAM: Mar 01 2023 9:50AM ANDRES 5351 - XR HIP 3V PELV+ AP/LAT LT / PROCEDURE REASON: M25.552-Pain in left hip * * * * Physician Interpretation * * * * Pelvis and left hip HISTORY: Indication: Pain in left hip TECHNIQUE: Images: XR HIP 3V PELV+ AP/LAT LT Comparison: 07/06/2022 RESULT: Findings: Pelvis: No fractures or dislocations are seen. There appears to be mild narrowing of both hip joints. The sacroiliac joints are patent Left hip: No fractures or dislocations are seen. IMPRESSION: No acute pathology. Mild narrowing of both hip joints Corrective Therapist: PSCB Transcribe Date/Time: Mar 01 2023 2:33P Dictated by : MONTANA QUIÑONES DO This examination was interpreted and the report reviewed and electronically signed by: MONTANA QUIÑONES DO on Mar 01 2023 2:33PM EST [id number] Normal [facility] XR Pelvis and Hip - left AP and Lateral frogon 03-01-2023 IMPRESSION: No acute pathology. Mild narrowing of both hip joints Corrective Therapist: PSCB Transcribe Date/Time: Mar 01 2023 2:33P Dictated by : MONTANA QUIÑONES DO This examination was interpreted and the report reviewed and electronically signed by: MONTANA QUIÑONES DO on Mar 01 2023 2:33PM EST [facility] * * *Final Report* * * DATE OF EXAM: Mar 01 2023 9:50AM ANDRES 5351 - XR HIP 3V PELV+ AP/LAT LT / PROCEDURE REASON: M25.552-Pain in left hip * * * * Physician Interpretation * * * * Pelvis and left hip HISTORY: Indication: Pain in left hip TECHNIQUE: Images: XR HIP 3V PELV+ AP/LAT LT Comparison: 07/06/2022 RESULT: Findings: Pelvis: No fractures or dislocations are seen. There appears to be mild narrowing of both hip joints. The sacroiliac joints are patent Left hip: No fractures or dislocations are seen. [facility] Provider, Esther Merritt - 03/01/2023 * * *Final Report* * * DATE OF EXAM: Mar 01 2023 9:50AM MDO 5351 - XR HIP 3V PELV+ AP/LAT LT / PROCEDURE REASON: M25.552-Pain in left hip * * * * Physician Interpretation * * * * Pelvis and left hip HISTORY: Indication: Pain in left hip TECHNIQUE: Images: XR HIP 3V PELV+ AP/LAT LT Comparison: 07/06/2022 RESULT: Findings: Pelvis: No fractures or dislocations are seen. There appears to be mild narrowing of both hip joints. The sacroiliac joints are patent Left hip: No fractures or dislocations are seen. IMPRESSION IMPRESSION: No acute pathology. Mild narrowing of both hip joints Corrective Therapist: PSCB Transcribe Date/Time: Mar 01 2023 2:33P Dictated by : MONTANA QUIÑONES DO This examination was interpreted and the report reviewed and electronically signed by: MONTANA QUIÑONES DO on Mar 01 2023 2:33PM [facility] Radiology Study observation (narrative) Clemente milner [facility] XR Pelvis and Hip - left AP and Lateral frogOrdered By: Ccf Provider on 03-01-2023 [facility] - Microbiology an d Antimicrobial susceptibilityon 02-18-2023 S. pyogenes Ag IA Ql (Unsp spec) Negative [facility] CNOVon 12-28-2022 CNOV Office Visit (ORMDNA ) REBECCAMANDI ([id number]) 1990 F Date Time Provider Department 12/28/22 9:45 AM CATHRYN MORRELL During your visit today, we recorded the following information about you: Cathryn Morrell DO 12/28/2022 1:02 PM Signed Follow Up Visit Chief Complaint Mandi Valente is a 32 year old female who presents today for follow up office visit. Patient presents with: Right Hip - Post Op, Pain History of Present Illness PAIN EVALUATION 12/28/2022 0958 Pain Level: 2 Pain Location: Hip-Right Description: Sore;Aching Duration Amount of Time: -- DOS: 11/08/22 Frequency: Intermittent HPI: Mandi Valente is a 32 year old female for a follow up visit S/P Right hip arthroscopy, itb release, trochanteric bursectomy, scar debridement on 11/11/2022. Patient states she is doing well, complains of some intermittent soreness. She is currently in PT and progressing well. Pain history is noted as above. Denies calf pain, numbness, tingling, fever, chills or other constitutional symptoms. Is there any overall improvement in your condition? Yes, pain Any new injury, since being seen last: No REVIEW OF SYMPTOMS: Patient did not have, and does not currently have, any weight loss, malaise, fever, chills, headache, chest pain, chest pressure, palpitations, cough, shortness of breath, orthopnea, paroxsymal nocturnal dyspnea, nausea, vomiting, diarrhea, constipation, melena, hematochezia, urinary difficulties, prolonged bleeding, easily bruising, heat or cold intolerance, new onset joint pain or swelling, new onset extremity weakness or numbness, new onset auditory or visual disturbances, lightheadedness, dizziness, partial loss of consciousness or full loss of consciousness. Current Outpatient Medications Medication Sig meloxicam (MOBIC) 15 mg tablet Take 15 mg by mouth once daily. multivit-min/iron/fol ic acid/K (ADULTS MULTIVITAMIN ORAL) Take by mouth. oxyCODONE-acetaminoph en (PERCOCET) 5-325 mg tablet Take 1 tablet by mouth every 8 hours as needed for pain. No current facility-administered medications for this visit. Physical Exam Vitals: There were no vitals taken for this visit. Psych: Pleasant, good affect and mood General Appearance: Well appearing, alert, in no acute distress, well-hydrated, well nourished.. Skin: Skin color, texture, turgor normal, no suspicious rashes or lesions. Peripheral Pulses: Normal. Neurologic: Gait normal. Reflexes normal and symmetric. Sensation grossly intact.. Lymph Nodes: No cervical lymphadenopathy, No supraclavicular lymphadenopathy, No axillary lymphadenopathy., and No inguinal lymphadenopathy.. Respiratory: No recent pulmonary infection, hemoptysis, chronic cough, or shortness of breath at rest Rheumatologic: Joint deformities: right hip pain Right Hip Exam Right hip exam is normal. Tenderness The patient is experiencing no tenderness. Range of Motion The patient has normal right hip ROM. Muscle Strength Abduction: 4/5 Adduction: 4/5 Flexion: 4/5 Other Erythema: absent Scars: present Sensation: normal Pulse: present Comments: Neg homans bilaterally Left Hip Exam Left hip exam is normal. Tenderness The patient is experiencing no tenderness. Range of Motion The patient has normal left hip ROM. Muscle Strength The patient has normal left hip strength. Other Erythema: absent Sensation: normal Pulse: present Assessment and Plan Radiographs: I have independently reviewed films and my findings are the same. Impression: Encounter Diagnosis ICD-10-CM 1. S/P orthopedic surgery, follow-up exam Z09 2. Trochanteric bursitis of right hip M70.61 3. Iliotibial band syndrome of right side M76.31 Today, in detail, through a thorough evaluation, we discussed possible etiologies of pain and our plans for further diagnostic and therapeutic interventions. We discussed strategies for decreasing pain and improving strength, stability and motion. Patient's questions were answered in detailed. Patient verbalizes understanding and agrees with the treatment plan as discussed. Doing well from postop standpoint 3 months until address contralateral limb Work on strengthening core, hip ER, hs, etc Patient aware and in agreement of plan. All questions answered. Cathryn Morrell D.O. M.P.H. Referring Provider: PIERRE HICKS [[id number]] Allergies As of Date: 12/28/2022 (No Known Allergies) Date Reviewed: 12/28/2022 Reviewed by: Cathryn Morrell DO - Fully Assessed Reason for Visit: Post Op [174] Pain [78] Primary Visit Diagnosis:S/P orthopedic surgery, follow-up exam [Z09] Other Visit Diagnoses:Trochanteri c bursitis of right hip [M70.61] Iliotibial band syndrome of right side [M76.31] Prescriptions as of 12/28/2022 - oxyCODONE-acetaminoph en (PERCOCET) 5-325 mg tablet Take (more content not included)... Normal [facility] CNOVon 11-21-2022 CNOV Office Visit (ORMDNA ) MANDI VALENTE ([id number]) 1990 F Date Time Provider Department 11/21/22 10:00 AM PIERRE HICKS During your visit today, we recorded the following information about you: Pierre Hicks PA-C 11/21/2022 10:28 AM Signed POST OP Ms. Valente presents today for her 10-14 day visit from: S/P right hip arthroscopy, ITB release, trochanteric bursectomy and scar debridement with Dr. Morrell on 11/08/2022. Post Op and Pain of the Right Hip History: PAIN EVALUATION 11/20/2022 1311 11/21/2022 1002 Pain Level: 2 1 Pain Location: Leg-Right Hip-Right Description: Surgical/Not Incision Aching;Sore Duration Amount of Time: -- -- DOS: 11/08/22 Frequency: Intermittent Intermittent Intervention/Comfort measure: -- -- ice, percocet She is doing well postoperatively. Patients rates her condition as improving. The patient denies warmth, discharge, drainage, fevers, chills, sweats. She reports compliance with dressing/wound care. She is not using any ambulatory devices. She is requesting RTW date of 11/28/22. She reports no change in past medical AND surgical history, medications, allergies, social history, family history and review of systems since last visit, with the exception of the following: None Review of Systems All other systems reviewed and are negative. Radiographs: Not applicable Physical Examination: RLE: Appropriate postop appearance No evidence of erythema, warmth, discharge or drainage Incisions are clean/dry/intact Gait WNL No tenderness about the hip no tenderness about the greater trochanter Hip ROM: pain free Distally SILT S/S/SP/DP/T intact at baseline Positive EHL, FHL, AT, GS, Quads, and HS Positive distal pulses Negative Clarissa's, calf tenderness or palpable cords PROCEDURE: Not applicable Assessment/Plan: S/P right hip arthroscopy, ITB release, trochanteric bursectomy and scar debridement at normal post-operative stage of recovery. WBAT RLE Begin outpatient PT Post op care discussed, all questions answered Follow up in 4 weeks with MARGRET CornejoC Allergies As of Date: 11/21/2022 (No Known Allergies) Date Reviewed: 11/21/2022 Reviewed by: Mena Davis - Fully Assessed Reason for Visit: Post Op [174] Pain [78] Primary Visit Diagnosis:S/P orthopedic surgery, follow-up exam [Z09] Order(s):CONSULT TO PHYSICAL THERAPY [9032] Order #: [id number]: 1 FUTURE Prescriptions as of 11/21/2022 - oxyCODONE-acetaminoph en (PERCOCET) 5-325 mg tablet Take 1 tablet by mouth every 8 hours as needed for pain. - meloxicam (MOBIC) 15 mg tablet Take 15 mg by mouth once daily. - multivit-min/iron/fol ic acid/K (ADULTS MULTIVITAMIN ORAL) Take by mouth. Medication notes this encounter OXYCODONE-ACETAMINOPH EN 5 MG-325 MG TABLET >> Mena Davis 11/21/2022 10:02 AM >> MENA DAVIS Mon November 21, 2022 10:02 AM Not taking Problem List As Of Date 11/21/2022 Noted Resolved HEMORRHOIDS NOS [K64.9] Melanocytic Nevus of trunk: recurrent nevi of R*08/30/2010 Atypical nevus of multiple sites of trunk: ches*08/30/2010 Surgical Scars [L90.5] 08/30/2010 Hypertrophic scars of skin [L91.0] 08/30/2010 Class 1 obesity due to excess calories without *02/07/2022 It band syndrome, unspecified laterality [M76.3*02/07/2022 02/22/2022 Trochanteric bursitis of right hip [M70.61] 02/22/2022 02/22/2022 Medications Discontinued During This Encounter Prescriptions - ondansetron (ZOFRAN) 4 mg tablet (Discontinued) Take 1 tablet by mouth every 8 hours as needed for nausea/vomiting. Letter Text Encounter Status:Closed by PIERRE HICKS on 11/21/22 [facility] 11-09-2022 [facility] MANDI VALENTE ([id number]) 1990 F Date Time Provider Department 11/09/22 CATHRYN MORRELL During your visit today, we recorded the following information about you: Avery Armando 11/09/2022 1:56 PM Signed Patient had surgery yesterday, November 08, 2022 Currently scheduled for her first post op on November She is requesting to see Dr. Morrell for the post op appointment Please advise If you have questions, patient can be reached at [phone] Rhonda Sow RN 11/09/2022 2:57 PM Signed Spoke with pt regarding post-op appointment. Stated she thought Dr. Morrell would want to see her since she was a unique case. Told pt that it's her protocol to see the PA's on the first post-op visit. Pt stated she is fine with that if that's what Dr. Morrell recommends and will keep appointment. Also stated that her incision is bleeding through bandages when she stands. Spoke with Dr. Morrell, stated that the bleeding is normal. If it persists for more than 3 days, have pt call us. Called pt back to relay message. Pt verbalized understanding. Allergies As of Date: 11/09/2022 (No Known Allergies) Date Reviewed: 11/08/2022 Reviewed by: Jhonny Sarabia, DIANE - Fully Assessed Reason for Visit: Appointment [186] Prescriptions as of 12/23/2022 - oxyCODONE-acetaminoph en (PERCOCET) 5-325 mg tablet Take 1 tablet by mouth every 8 hours as needed for pain. - meloxicam (MOBIC) 15 mg tablet Take 15 mg by mouth once daily. - multivit-min/iron/fol ic acid/K (ADULTS MULTIVITAMIN ORAL) Take by mouth. Problem List As Of Date 11/09/2022 Noted Resolved HEMORRHOIDS NOS [K64.9] Melanocytic Nevus of trunk: recurrent nevi of R*08/30/2010 Atypical nevus of multiple sites of trunk: ches*08/30/2010 Surgical Scars [L90.5] 08/30/2010 Hypertrophic scars of skin [L91.0] 08/30/2010 Class 1 obesity due to excess calories without *02/07/2022 It band syndrome, unspecified laterality [M76.3*02/07/2022 02/22/2022 Trochanteric bursitis of right hip [M70.61] 02/22/2022 02/22/2022 Encounter Status:Closed by AVERY ARMANDO on 12/23/22 Normal [facility] ANES POSTPROC EVALon 023 ANES POSTPROC EVAL HNO ID: [id number] Author: August Santizo MD Service: Anesthesiology Author Type: Anesthesiologist Type: Anesthesia Postprocedure Evaluation Filed: 11/08/2022 1:20 PM Note Text: POST ANESTHESIA EVALUATION NOTE : 1990 Procedure Summary Date: 11/08/22 Room / Location: [place] Anesthesia Start: 1111 Anesthesia Stop: 1233 Procedure: EXCISION TROCHANTERIC BURSA OR CALCIFICATION (Right: Hip) Diagnosis: Trochanteric bursitis of right hip Iliotibial band syndrome of right side (Trochanteric bursitis of right hip [M70.61]) (Iliotibial band syndrome of right side [M76.31]) Surgeons: Cathryn Morrell DO Responsible Provider: August Santizo MD Anesthesia Type: general ASA Status: 2 Anesthesia Type: general Airway Type: LMA Last Vitals Vitals Value Taken Time BP 154/83 11/08/22 1315 Temp 36.3 ?C (97.3 ?F) 11/08/22 1232 Pulse 65 11/08/22 1318 Resp 17 11/08/22 1318 SpO2 100 % 11/08/22 1318 Vitals shown include unvalidated device data. Post Anesthesia Patient Status Patient Evaluation: PACU. PACU/ICU Patient Condition: stable. Anticipated Disposition: phase 2 then home. Neurological Status: aware and responsive. Pulmonary Status: breathing comfortably on room air Airway Control: returned to baseline unsupported. Cardiovascular Status: stable. Pain Management: clinically adequate - multimodal analgesia pain management approach Postoperative Hydration: acceptable. Intraoperative Events: no significant anesthesia events Recommendation: continue current plan of care. Anesthesia Observations No Documentation SIGNATURE: August Santizo MD PATIENT NAME: Mandi Valente DATE: November 08, 2022 TIME: 1:20 PM CSN: [id number] [facility] ANES PRE-OPon 11-08-2022 ANES PRE-OP HNO ID: [id number] Author: August Santizo MD Service: Anesthesiology Author Type: Anesthesiologist Type: Anesthesia Preprocedure Evaluation Filed: 11/08/2022 10:21 AM Note Text: ANESTHESIOLOGY DAY OF SURGERY NOTE : 1990 Procedure Information Date/Time: 11/08/22 1108 Procedure: EXCISION TROCHANTERIC BURSA OR CALCIFICATION (Right: Hip) Location: [place] OR02 [place] Surgeons: Cathryn Morrell DO Estimated body mass index is 31.64 kg/m? as calculated from the following: Height as of 10/28/22: 157.5 cm (5' 2). Weight as of 10/28/22: 78.5 kg (173 lb). Most recent hematocrit and potassium results: Hematocrit 36.2 02/07/2022 Potassium 3.9 02/07/2022 Relevant Problems CARDIO (+) Unspecified hemorrhoids without mention of complication I - PHYSICAL EVALUATION AIRWAY Patient intubated: No. Tracheostomy tube not present Mallampati: II. TM distance: >3 FB. Neck ROM: full ROM without neurological symptoms. Mouth opening: adequate. Short neck: no. Thick neck: no DENTAL Dental findings: teeth intact. Additional exam findings: no II - ANESTHESIA PLAN ASA Score: 2 Anesthetic Plan: general Airway type: LMA NPO Status: adequate Beta Liban Monitoring Plan Monitoring plan: Standard ASA. Post Procedure Analgesic Plan Postoperative analgesic plan: parenteral or oral opioids and multimodal analgesia. Informed Consent Anesthetic risks, benefits, alternatives, personnel and consent discussed: yes. Patient / Responsible [employer] Party agrees to proceed: yes Patient / Surrogate agrees to blood products: yes DNR status not reviewed with patient and/or family prior to surgery. Significant changes in the patient condition since the History and Physical, not otherwise documented in primary service progress note: no. Potential Anesthesia issues that may suggest increased risk of complications or contraindication to planned procedure: none. No vitals data found for the desired time range. Facility-Administered Medications as of 11/08/2022 Medication Dose Route Frequency - lidocaine (PF) 10 mg/mL (1 %) 1-2 mg injection (XYLOCAINE) 0.1-0.2 mL INTRADERMAL PRN - lactated ringers iv infusion 5-30 mL/hr INTRAVENOUS CONTINUOUS - NaCl 0.9% iv flush bag 20 mL INTRAVENOUS PRN - ceFAZolin iv piggyback 2 g in D5W (iso-osmotic) 100 mL (ANCEF) 2 g INTRAVENOUS Pre-Op Once - acetaminophen 1,000 mg tab(s) (TYLENOL) 1,000 mg ORAL Pre-Op Once - promethazine 12.5 mg tab(s) (PHENERGAN) 12.5 mg ORAL ONCE - lactated ringers iv infusion 5-30 mL/hr INTRAVENOUS CONTINUOUS Outpatient Medications as of 11/08/2022 Medication Sig - meloxicam (MOBIC) 15 mg tablet Take 15 mg by mouth once daily. - multivit-min/iron/fol ic acid/K (ADULTS MULTIVITAMIN ORAL) Take by mouth. - oxyCODONE-acetaminoph en (PERCOCET) 5-325 mg tablet Take 1 tablet by mouth every 6 hours as needed for pain. - ondansetron (ZOFRAN) 4 mg tablet Take 1 tablet by mouth every 8 hours as needed for nausea/vomiting. I have interviewed and examined the patient. I have reviewed the medical record and/or the pre-anesthesia evaluation, pertinent labs, and test results. This contains updated information obtained within 48 hours of Surgery/Procedure. SIGNATURE: August Santizo MD PATIENT NAME: Mandi Valente DATE: November 08, 2022 TIME: 10:21 AM CSN: [id number] [facility] OPERATIVE NOon 11-08-2022 OPERATIVE NO HNO ID: [id number] Author: Cathryn Morrell DO Service: Orthopaedic Surgery Author Type: Physician Type: Operative Report Filed: 11/08/2022 1:21 PM Note Text: OPERATIVE/PROCEDURE REPORT LOG ID: [id number] SURGERY/PROCEDURE DATE: 11/08/2022 INCISION/PROCEDURE START TIME: 11:35 AM INCISION CLOSE/PROCEDURE END TIME: 12:18 PM SURGEON(S)/PROCEDURAL IST(S) AND TISSUE TECHNICIAN(S): Surgeon(s) and Role: * Cathryn Morrell, DO - Primary Nurse Practitioner: Lisseth Wright APRN.INSTRUCTOR PILOT Physician Bond Clerk: Kelly Calabrese PA-C SURGERY/PROCEDURE(S): Right hip arthroscopy, itb release, trochanteric bursectomy, scar debridement ANESTHESIA: General SURGERY/PROCEDURE DETAILS: Preop note Patient is a 31-year-old female who is known to have a previous right hip arthroscopy IT band release and bursectomy. Patient states she was doing well initially postop however had increased pain and burning and MRI confirms increased scarring and bursitis the site of the previous hip arthroscopy. Risk benefits and alternatives surgery discussed with patient. Risk include but not limited to blood loss, blood clot, infection, neurovascular G, failure procedure, loss of life and loss of limb. Patient is aware like proceed with right hip arthroscopy repair as indicated Operative note Patient seen and examined preoperative holding her. Right leg was marked. Patient brought to the operating room placed supine on the operating table. [place], anesthesia, antibiotics were administered. The right leg was prepped and draped usual sterile technique all bony promises well-padded SCDs placed on her contralateral limb. We then used fluoroscopy ascertain the level of our scope we did use her previous portals. Timeout was performed. Then using a blunt 11 blade to create our more inferior portal we began our by going down to bone and debriding back the IT band had very scarred over the greater troches we then performed a IT band release using cautery. We then were able to see the thickened bursa underneath this was resected combination of cautery [place] ablator and shaver. We internally externally rotated the hip numerous times and ensure that there is no further snapping and on there was all bleeders were coagulated and there is no bursitis remaining. All the tendons were intact as well there were no tendon fraying or injury to any of the tendons. Again assessing her IT band and internal/external rotation there is no further snapping and excellent release. We irrigated the incision with copious outs of sterile saline. Portals were closed with interrupted nylon stitches sterile dressings were applied. Patient tolerated she will no complications transfer recovery room stable condition Postoperative note Weight-bear as tolerated right leg Follow-up in 2 weeks Initiation physical therapy at that time Percocet prescription Call with increased pain numbness ting or further issues arise Tony disclaimer comment: Please note this report has been produced using speech recognition software and may contain errors related to that system including errors in grammar, punctuation, and spelling, as well as words and phrases that may be inappropriate. If there are any questions or concerns please feel free to contact the dictating provider for clarification. PRE-OP/PRE-PROCEDURE DIAGNOSIS: right hip bursitis/ previous POST-OP/POST-PROCEDUR E DIAGNOSIS: Same as Preop ESTIMATED BLOOD LOSS: 0 ml SPECIMENS: None IMPLANTABLE DEVICES: NONE DRAINS: None COMPLICATIONS: None CLOSURE TECHNIQUE: Primary PARTICIPATION IN SURGERY/PROCEDURE: I/primary surgeon/proceduralist performed the procedure with assistance. No qualified resident/fellow was available. SIGNATURE: Cathryn Morrell DO PATIENT NAME: Mandi Valente DATE: November 08, 2022 TIME: 12:47 PM [facility] XR FLUOROSCOPYon 11-08-2022 XR FLUOROSCOPY * * *Final Report* * * DATE OF EXAM: Nov 08 2022 12:15PM MDR [id number] - XR FLUOROSCOPY / PROCEDURE REASON: EXCISION TROCHANTERIC BURSA OR CALCIFICATION- RIGHT * * * * Physician Interpretation * * * * INDICATION: EXCISION TROCHANTERIC BURSA OR CALCIFICATION- RIGHT TECHNIQUE: Fluoroscopy with 2 views of the right hip Fluoroscopic Radiation Summary: Plane A, Air Kerma: 17.6 mGy Dose Area Product (DAP): 0.0 mGy*cm^2 Fluoro time: 0:41 min:sec FINDINGS/ IMPRESSION: 2 metallic probes are seen adjacent to the right greater trochanter in the expected location of the trochanteric bursa. . Please refer to the performing LIP's report. Corrective Therapist: MALOU Transcribe Date/Time: Nov 08 2022 1:56P Dictated by : JENNI CHINCHILLA MD This examination was interpreted and the report reviewed and electronically signed by: JENNI CHINCHILLA MD on Nov 08 2022 1:57PM EST [id number] N [facility] CNOVon 11-02-2022 CNOV Office Visit (ORMDNA ) MANDI VALENTE ([id number]) 1990 F Date Time Provider Department 11/02/22 2:00 PM CATHRYN MORRELL During your visit today, we recorded the following information about you: Cathryn Morrell DO 11/08/2022 2:02 PM Signed Follow Up Visit Chief Complaint Mandi Valente is a 31 year old female who presents today for follow up office visit. Patient presents with: Right Hip - Pre-Op Visit, Established Patient History of Present Illness PAIN EVALUATION 11/02/2022 0234 Pain Level: 4 Pain Location: Hip-Right Description: Burning;Radiating;Thr obbing Duration Amount of Time: 2 Frequency: Intermittent Intervention/Comfort measure: Medication;Reposition ;Positioning HPI: Mandi Valente is a 31 year old female for a follow up visit Right hip pre-op with additional questions. Pain history is noted as above. Denies calf pain, numbness, tingling, fever, chills or other constitutional symptoms. Is there any overall improvement in your condition? No Any new injury, since being seen last: No REVIEW OF SYMPTOMS: Patient did not have, and does not currently have, any weight loss, malaise, fever, chills, headache, chest pain, chest pressure, palpitations, cough, shortness of breath, orthopnea, paroxsymal nocturnal dyspnea, nausea, vomiting, diarrhea, constipation, melena, hematochezia, urinary difficulties, prolonged bleeding, easily bruising, heat or cold intolerance, new onset joint pain or swelling, new onset extremity weakness or numbness, new onset auditory or visual disturbances, lightheadedness, dizziness, partial loss of consciousness or full loss of consciousness. No current facility-administered medications for this visit. Current Outpatient Medications Medication Sig - oxyCODONE-acetaminoph en (PERCOCET) 5-325 mg tablet Take 1 tablet by mouth every 8 hours as needed for pain. Facility-Administered Medications Ordered in Other Visits Medication Dose Route Frequency - albuterol 2.5 mg /3 mL (0.083 %) 2.5 mg (PROVENTIL) 2.5 mg INHALATION ONCE - lactated ringers iv infusion 5-30 mL/hr INTRAVENOUS CONTINUOUS - fentaNYL 50 mcg/mL 50 mcg injection (SUBLIMAZE) 50 mcg INTRAVENOUS q 10 MIN PRN - HYDROmorphone 1 mg injection (DILAUDID) 1 mg INTRAVENOUS DIRECTED PRN - HYDROcodone 5 mg - acetaminophen 325 mg tablet (NORCO) 1 tablet ORAL PRN - prochlorperazine 10 mg injection (COMPAZINE) 10 mg INTRAVENOUS q 6 H PRN - metoclopramide HCl 10 mg tab(s) (REGLAN) 10 mg ORAL ONCE Or - metoclopramide HCl 10 mg injection (REGLAN) 10 mg INTRAVENOUS ONCE - diphenhydrAMINE 25 mg injection (BENADRYL) 25 mg INTRAVENOUS q 4 H PRN - meperidine (PF) 12.5 mg injection (DEMEROL) 12.5 mg INTRAVENOUS PRN Physical Exam Vitals: There were no vitals taken for this visit. Psych: Pleasant, good affect and mood General Appearance: Well appearing, alert, in no acute distress, well-hydrated, well nourished.. Skin: Skin color, texture, turgor normal, no suspicious rashes or lesions. Peripheral Pulses: Normal. Neurologic: Gait normal. Reflexes normal and symmetric. Sensation grossly intact.. Lymph Nodes: No cervical lymphadenopathy, No supraclavicular lymphadenopathy, No axillary lymphadenopathy., and No inguinal lymphadenopathy.. Respiratory: No recent pulmonary infection, hemoptysis, chronic cough, or shortness of breath at rest Rheumatologic: Joint deformities: right hip lateral pain Right Knee Exam Right knee exam is normal. Muscle Strength The patient has normal right knee strength. Tenderness The patient is experiencing no tenderness. Range of Motion Extension: normal Flexion: normal Tests Hieu: Anterior - negative Posterior - negative Drawer: Anterior - negative Posterior - negative Other Erythema: absent Sensation: normal Pulse: present Swelling: none Left Knee Exam Left knee exam is normal. Muscle Strength The patient has normal left knee strength. Tenderness The patient is experiencing no tenderness. Range of Motion Extension: normal Flexion: normal Tests Hieu: Anterior - negative Posterior - negative Drawer: Anterior - negative Posterior - negative Other Erythema: absent Sensation: normal Pulse: present Swelling: none Comments: Neg homans bilaterally Assessment and Plan Radiographs: I have independently reviewed films and my findings are the same. and I have reviewed the images with the patient and family. Impression: Encounter Diagnosis ICD-10-CM 1. Trochanteric bursitis of right hip M70.61 2. Iliotibial band syndrome of right side M76.31 Today, in detail, through a thorough evaluation, we discussed possible etiologies of pain and our plans for further diagnostic and therapeutic interventions. We discussed strategies for decreasing pain and improving strength, stability and motion. Patient's questions (more content not included)... Normal [facility] HISTORY PHYSICALon HISTORY PHYSICAL HNO ID: [id number] Author: Stefany De La Torre PA-C Service: ? Author Type: Physician Bond Clerk Type: HANDP Filed: 10/31/2022 2:00 PM Note Text: HISTORY AND PHYSICAL EXAMINATION SERVICE DATE: 10/28/2022 SERVICE TIME: 11:37 AM PRIMARY CARE PHYSICIAN: J Luis Nino (Historic) Indira REASON FOR VISIT: Mandi Valente is a 31 year old female who is scheduled for EXCISION TROCHANTERIC BURSA OR CALCIFICATION at the request of Dr. Cathryn Morrell for consultation. My final recommendation will be communicated back to the requesting physician by way of shared medical record or letter. The patient has the following: ACTIVE PROBLEM LIST Unspecified Hemorrhoids Without Mention of Complication Melanocytic Nevus of trunk: recurrent nevi of R upper mid chest, L buttock, upper mid back Atypical nevus of multiple sites of trunk: chest, back, buttock Surgical Scars Hypertrophic scars of skin Class 1 Obesity Due to Excess Calories Without Serious Comorbidity With Body Mass Index (Bmi) of 31.0 to 31.9 in Adult Subjective CHIEF COMPLAINT: right hip pain HPI: pt is a 31 year old female with continued right hip pain. PAST MEDICAL HISTORY Diagnosis Date Unspecified hemorrhoids without mention of complication PAST SURGICAL HISTORY Procedure Laterality Date REM LESIO TRUNK,ARM,LEG 1.1 -2.0CM 09/20/2010 Exc. left medial buttock skin lesion REM LESION TRUNK,ARM,LEG 0.6 -1.0CM 10/11/2010 Exc. skin lesions x 3 REPAIR EPIGASTRIC HERNIA,REDUC 2020 TONSILLECTOMY AND ADENOIDECTOMY FAMILY HISTORY Problem Relation Age of Onset None Mother fibromyalgia., hypertension Hypertension Father Hypertension Sister Hypertension Brother SOCIAL HISTORY: Social History Tobacco Use Smoking status: Never Smokeless tobacco: Never Vaping Use Vaping Use: Never used Substance Use Topics Alcohol use: No Drug use: Never Prior to Admission medications as of 10/28/22 1111 Medication Sig Last Dose Taking meloxicam (MOBIC) 15 mg tablet Take 15 mg by mouth once daily. Taking Yes multivit-min/iron/fol ic acid/K (ADULTS MULTIVITAMIN ORAL) Take by mouth. Taking Yes oxyCODONE-acetaminoph en (PERCOCET) 5-325 mg tablet Take 1 tablet by mouth every 6 hours as needed for pain. ondansetron (ZOFRAN) 4 mg tablet Take 1 tablet by mouth every 8 hours as needed for nausea/vomiting. No medication comments found. ALLERGIES No Known Allergies COVID VACCINATION STATUS: Fully vaccinated REVIEW OF SYSTEMS: PAIN ASSESSMENT: Pain Pain Level: 4 Pain Location: Hip-Right Description: Throbbing, Burning, Radiating Duration Amount of Time: 2.5 Duration Units: Years Frequency: Continuous General: No weight loss, malaise or fevers. Neuro: No history of TIA's, stroke, VOCATIONAL REHABILITATION SUPERVISOR tumor, impaired sensorium, hemiplegia, paraplegia or quadraplegia. No neurological symptoms or problems. Respiratory: No history of current cough or dyspnea, or pneumonia in the past 6 weeks. No history of respiratory/pulmonary symptoms or problems. Cardiovascular: No history of HTN requiring medication, no history of angina, CHF, OH, cardiac surgery or stents. Denies rest pain, gangrene or revascularization/amp utation for PVD. No history of cardiovascular symptoms or problems. GI: No history of GI symptoms or problems. No history of esophageal varices, recent ascites, or ETOH greater than 2 drinks per day. 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 : Denies, No LMP recorded. Endocrine: No history of diabetes. Has not taken steroids within the past 30 days. No history of endocrinological symptoms or problems. Hematology: No history of bleeding or clotting disorder. Pt is not taking anti-coagulation or platelet medications. No history of hematological symptoms or problems. Oncology: No history of CA metastasis, chemo within 30 days, or radiotherapy within 90 days. Has not lost 10% of body wt in 6 months. No history of oncological symptoms or problems. Psych: No history of psychiatric symptoms or problems. Musculoskeletal: See HPI Skin: Negative for lesions, rash and itching. Objective PHYSICAL EXAM: VITALS: BP 138/84 Pulse 79 Temp (Src) 97.8 (Temporal) Resp 16 Ht 5' 2 (1.58m) Wt 173 lb (78.5kg) SpO2 99% BMI 31.63 kg/(m2). General: Alert and oriented, No acute distress, Healthy appearance Skin: Normal color, no rash, no lesions. HEENT: EOM, pupils equal, round and reactive. Cardiovascular: Normal S1 AND S2, no rubs, murmurs or gallops. No JVD. Pulse regular. Lungs: Normal breath sounds, no wheezes or crackles. Extremities: No deformity, no edema or tenderness, no joint swelling or clubbing. Neurological: Normal cognition and motor skills. Pulses: Carotid and radial pulses normal +2. Diagnostic tests reviewed for today's visit: No new labs or tests Assessment (more content not included)... Normal [facility] Basophil percentageOrdered B y: Dr. Smith on 09-07-2022 Basophil percentage 0.2 AI 0.0-0.9 [facility] Basophil percentage 2.6 AI 0.0-0.9 [facility] Erythrocyte sedimentation ra teOrdered By: Dr. Smith on 09-07-2022 ESR (Bld) [Velocity] 4 mm/h 0-30 [facility] No Panel InformationOrdered By: Dr. Smith on 09-07-2022 Anti-Nuclear Antibody Screen Positive Negative [facility] Centromere B Antibody <0.2 AI 0.0-0.9 [facility] FOOD TRUCK CATERER Antibody <0.2 AI 0.0-0.9 [facility] Serum DNA double strand anti body assay (units/volume)Ordered By: Dr. Smith on 09-07-2022 DNA double strand Ab Qn (S) 1 [IU]/mL 0-9 [facility] Comment on above: Negative <5 Equivoca l 5 - 9 Positive >9 Serum Silvia-1 antibody assay (u nits/volume)Ordered By: Dr. Smith on 09-07-2022 Silvia-1 extractable nuclear Ab Qn (S) <0.2 AI 0.0-0.9 [facility] Serum Scl-70 extractable nuc lear antibody assay (units/volume)Ordered By: Dr. Smith on 09-07-2022 SCL-70 extractable nuclear Ab Qn (S) <0.2 AI 0.0-0.9 [facility] Serum Carlson extractable nucl ear antibody detectionOrdered By: Dr. Smith on 09-07-2022 Carlson extractable nuclear Ab Ql (S) <0.2 AI 0.0-0.9 [facility] Serum cyclic citrullinated p eptide IgG antibody assay (units/volume)Ordered By: Dr. Smith on 09-07-2022 Cyclic citrullinated peptide IgG Qn 1 units 0-19 [facility] Comment on above: Negative <20 Weak po sitive 20 - 39 Moderate positive 40 - 59 Strong positive >59Performed at: [address] [id number] Director: Sukhdev Cullen PhD, Phone: [phone] Serum or plasma C reactive p rotein measurement (mass/volume)Ordered By: Dr. Smith on 09-07-2022 CRP [Mass/Vol] mg/L 0.0-3.0 [facility] Comment on above: C-Reactive Protein ( CRP) provides useful information for thediagnosis, therapy and monitoring of inflammatory processesand associated diseases. For the evaluation of Relative Riskfor Cardiovascular Disease, a High Sensitivity CRP (HSCRP)should be ordered. Serum rheumatoid factor dete ctionOrdered By: Dr. Smith on 09-07-2022 Rheumatoid factor Ql (S) < 10.0 IU/mL <15 [facility] CNOVon 08-18-2022 CNOV Office Visit (ALIYAH ) MANDI VALENTE ([id number]) 1990 F Date Time Provider Department 08/18/22 10:30 AM CATHRYN MORRELL During your visit today, we recorded the following information about you: Cathryn Meng Porsche, 08/18/2022 10:56 AM Signed Follow Up Visit Chief Complaint Mandi Valente is a 31 year old female who presents today for follow up office visit. Patient presents with: Right Hip - Established Patient, Follow Up History of Present Illness PAIN EVALUATION 08/16/2022 1448 08/18/2022 1033 Pain Level: 4 4 Pain Location: Hip-Right Hip-Right Description: Radiating;Sore;Throbb ing Burning Duration Amount of Time: 2 2 Duration Units: -- Weeks Frequency: Continuous Intermittent Intervention/Comfort measure: Medication Medication;Cold;Other : See comment Comments: Burning pain injections, meloxicam, tylenol, PT HPI: Mandi Valente is a 31 year old female for a follow up visit 6 weeks post injections for R hip trochanteric bursitis and IT band syndrome. Pt states the injections helped for about three weeks where she experienced no pain at all, but in the last couple weeks the pain has returned. Pain history is noted as above. Is there any overall improvement in your condition? No Any new injury, since being seen last: No REVIEW OF SYMPTOMS: Patient did not have, and does not currently have, any weight loss, malaise, fever, chills, headache, chest pain, chest pressure, palpitations, cough, shortness of breath, orthopnea, paroxsymal nocturnal dyspnea, nausea, vomiting, diarrhea, constipation, melena, hematochezia, urinary difficulties, prolonged bleeding, easily bruising, heat or cold intolerance, new onset joint pain or swelling, new onset extremity weakness or numbness, new onset auditory or visual disturbances, lightheadedness, dizziness, partial loss of consciousness or full loss of consciousness. Current Outpatient Medications Medication Sig meloxicam (MOBIC) 15 mg tablet Take 15 mg by mouth once daily. multivit-min/iron/fol ic acid/K (ADULTS MULTIVITAMIN ORAL) Take by mouth. oxyCODONE-acetaminoph en (PERCOCET) 5-325 mg tablet Take 1 tablet by mouth every 6 hours as needed for pain. ondansetron (ZOFRAN) 4 mg tablet Take 1 tablet by mouth every 8 hours as needed for nausea/vomiting. No current facility-administered medications for this visit. Physical Exam Vitals: There were no vitals taken for this visit. Psych: Pleasant, good affect and mood General Appearance: Well appearing, alert, in no acute distress, well-hydrated, well nourished.. Skin: Skin color, texture, turgor normal, no suspicious rashes or lesions. Peripheral Pulses: Normal. Neurologic: Gait normal. Reflexes normal and symmetric. Sensation grossly intact.. Lymph Nodes: No cervical lymphadenopathy, No supraclavicular lymphadenopathy, No axillary lymphadenopathy., and No inguinal lymphadenopathy.. Respiratory: No recent pulmonary infection, hemoptysis, chronic cough, or shortness of breath at rest Rheumatologic: Joint deformities: right hip ache Right Hip Exam Tenderness The patient is experiencing tenderness in the greater trochanter. Range of Motion The patient has normal right hip ROM. Muscle Strength The patient has normal right hip strength. Tests Matt: positive Other Erythema: absent Sensation: normal Pulse: present Comments: Ttp greater troch Left Hip Exam Left hip exam is normal. Tenderness The patient is experiencing no tenderness. Range of Motion The patient has normal left hip ROM. Muscle Strength The patient has normal left hip strength. Other Erythema: absent Sensation: normal Pulse: present Assessment and Plan Radiographs: No imaging to review. Impression: Encounter Diagnosis ICD-10-CM 1. Trochanteric bursitis of right hip M70.61 MRI HIP WO IVCON RT Today, in detail, through a thorough evaluation, we discussed possible etiologies of pain and our plans for further diagnostic and therapeutic interventions. We discussed strategies for decreasing pain and improving strength, stability and motion. Patient's questions were answered in detailed. Patient verbalizes understanding and agrees with the treatment plan as discussed. Mri right hip as symptomatic post surgery and injection Follow up after mri Referring Provider: SELF [200] Allergies As of Date: 08/18/2022 (No Known Allergies) Date Reviewed: 08/18/2022 Reviewed by: Cathryn Morrell DO - Fully Assessed Reason for Visit: Established Patient [175] Follow Up [171] Primary Visit Diagnosis:Trochanteri c bursitis of right hip [M70.61] Order(s):MRI HIP WO IVCON RT [[id number]] Order #: [id number] FUTURE Prescriptions as of 08/18/2022 - meloxicam (MOBIC) 15 mg tablet Take 15 mg by mouth once daily. - oxyCODONE-acetaminoph en (PERCOCET) 5-325 mg tablet Take 1 tablet b (more content not included)... Normal [facility] COVID-19 virus antigen assay Ordered By: Dr. Ott on 07-13-2022 SARS-CoV-2 (COVID-19) Ag IA.rapid Ql (Resp) [facility] - Microbiology an d Antimicrobial susceptibilityon 07-13-2022 SARS-CoV-2 (COVID-19) RNA GUCCI+probe Ql (Unsp spec) Not detected [facility] XR Pelvis and Hip - right AP and Lateral frogon 07-07-2022 IMPRESSION: Mild narrowing both hip joints Corrective Therapist: MALOU Transcribe Date/Time: Jul 07 2022 8:05A Dictated by : MONTANA QUIÑONES DO This examination was interpreted and the report reviewed and electronically signed by: MONTANA QUIÑONES DO on Jul 07 2022 8:06AM EST [facility] * * *Final Report* * * DATE OF EXAM: Jul 06 2022 2:35PM MDO 5352 - XR HIP 3V PELV+ AP/LAT RT / PROCEDURE REASON: M25.551-Pain in right hip * * * * Physician Interpretation * * * * Pelvis and right hip HISTORY: Indication: Pain in right hip TECHNIQUE: Images: XR HIP 3V PELV+ AP/LAT RT Comparison: None. RESULT: Findings: Pelvis: No fractures or dislocations are seen. Sacroiliac joints are patent. Mild narrowing of both hip joints Right hip: No fractures or dislocations are seen. [facility] Provider, Esther priest [place] - 07/07/2022 * * *Final Report* * * DATE OF EXAM: Jul 06 2022 2:35PM MDO 5352 - XR HIP 3V PELV+ AP/LAT RT / PROCEDURE REASON: M25.551-Pain in right hip * * * * Physician Interpretation * * * * Pelvis and right hip HISTORY: Indication: Pain in right hip TECHNIQUE: Images: XR HIP 3V PELV+ AP/LAT RT Comparison: None. RESULT: Findings: Pelvis: No fractures or dislocations are seen. Sacroiliac joints are patent. Mild narrowing of both hip joints Right hip: No fractures or dislocations are seen. IMPRESSION IMPRESSION: Mild narrowing both hip joints Corrective Therapist: MALOU Transcribe Date/Time: Jul 07 2022 8:05A Dictated by : MONTANA QUIÑONES DO This examination was interpreted and the report reviewed and electronically signed by: MONTANA QUIÑONES DO on Jul 07 2022 8:06AM EST [facility] XR Pelvis and Hip - right AP and Lateral frogOrdered By: [facility] Provider on 07-07-2022 [facility] CNOVon 07-06-2022 CNOV Office Visit (ORMDNA ) MANDI VALENTE ([id number]) 1990 F Date Time Provider Department 07/06/22 1:00 PM CATHRYN MORRELL During your visit today, we recorded the following information about you: Cathryn Morrell DO 07/06/2022 2:47 PM Signed Large Joint Arthro/Inj: R greater trochanteric bursa Informed Consent Consent Obtained: Verbal [place] Protocol A moment to CARE was completed. SIGN IN Personnel directly involved with the procedure wore the appropriate PPE. Special Equipment: N/A Patient/Surrogate Stated/Verified: Patient name, Relevant allergies, Date of and Intended procedure TIME OUT Intended patient and procedure match the source document(s). Consent documented and matches the intended procedure. Relevant labs, photos, and/or imaging studies have been reviewed. Correct side/site marked and visible. Medications required for procedure verified. Fire risk assessed and interventions discussed. No implant(s) inserted. 07/06/2022 2:45 PM The procedure site was prepped in the usual sterile fashion. Site: R greater trochanteric bursa Medications: 80 mg triamcinolone acetonide 40 mg/mL Anesthetics: 8 mL ropivacaine (PF) 5 mg/mL (0.5 %) Outcome: Tolerated well, no immediate complications Post-injection instructions were reviewed with the patient and the patient voiced understanding of these instructions. SIGN OUT All specimen containers correctly labeled. All instruments, equipment, possible retained foreign bodies accounted for. Post-procedure follow-up management communicated and Plan of Care Visit completed when applicable Follow Up Visit Chief Complaint Mandi Valente is a 31 year old female who presents today for follow up office visit. Patient presents with: Right Hip - Established Patient, Follow Up, Post Op History of Present Illness PAIN EVALUATION 07/06/2022 1255 Pain Level: -- rest:1-3, movement:4-6, ROM: same Pain Location: Hip-Right Description: Burning;Throbbing;Rad iating Frequency: Continuous Intervention/Comfort measure: Medication;Exercise mobic, IBU Comments: PT currently HPI: Mandi Valente is a 31 year old female for a post-op follow up visit Right hip arthroscopic iliotibial band release, trochanteric bursectomy. Patient mentions since last office visit she has notice her pain is now having a burning sensation. ROM is the same and unchanged since HORTENCIA. Pain history is noted as above. Denies calf pain, numbness, tingling, fever, chills or other constitutional symptoms. Is there any overall improvement in your condition? No Any new injury, since being seen last: No REVIEW OF SYMPTOMS: Patient did not have, and does not currently have, any weight loss, malaise, fever, chills, headache, chest pain, chest pressure, palpitations, cough, shortness of breath, orthopnea, paroxsymal nocturnal dyspnea, nausea, vomiting, diarrhea, constipation, melena, hematochezia, urinary difficulties, prolonged bleeding, easily bruising, heat or cold intolerance, new onset joint pain or swelling, new onset extremity weakness or numbness, new onset auditory or visual disturbances, lightheadedness, dizziness, partial loss of consciousness or full loss of consciousness. Current Outpatient Medications Medication Sig meloxicam (MOBIC) 15 mg tablet Take 15 mg by mouth once daily. multivit-min/iron/fol ic acid/K (ADULTS MULTIVITAMIN ORAL) Take by mouth. oxyCODONE-acetaminoph en (PERCOCET) 5-325 mg tablet Take 1 tablet by mouth every 6 hours as needed for pain. ondansetron (ZOFRAN) 4 mg tablet Take 1 tablet by mouth every 8 hours as needed for nausea/vomiting. No current facility-administered medications for this visit. Physical Exam Vitals: There were no vitals taken for this visit. Psych: Pleasant, good affect and mood General Appearance: Well appearing, alert, in no acute distress, well-hydrated, well nourished.. Skin: Skin color, texture, turgor normal, no suspicious rashes or lesions. Peripheral Pulses: Normal. Neurologic: Gait normal. Reflexes normal and symmetric. Sensation grossly intact.. Lymph Nodes: No cervical lymphadenopathy, No supraclavicular lymphadenopathy, No axillary lymphadenopathy., and No inguinal lymphadenopathy.. Respiratory: No recent pulmonary infection, hemoptysis, chronic cough, or shortness of breath at rest Rheumatologic: Joint deformities: Right lateral hip pain Right Hip Exam Right hip exam is normal. Tenderness The patient is experiencing tenderness in the lateral and greater trochanter. Range of Motion The patient has normal right hip ROM. Muscle Strength The patient has normal right hip strength. Abduction: 4/5 Adduction: 4/5 Flexion: 4/5 Other Erythema: absent Sensation: normal Pulse: present Left Hip Exam Left hip exam is normal. Tenderness The patient is (more content not included)... Normal [facility] XR HIP 3V PELV+ AP/LAT RTon 07-06-2022 XR HIP 3V PELV+ AP/LAT RT * * *Final Report* * * DATE OF EXAM: Jul 06 2022 2:35PM ANDRES [id number] - XR HIP 3V PELV+ AP/LAT RT / PROCEDURE REASON: [id number] in right hip * * * * Physician Interpretation * * * * Pelvis and right hip HISTORY: Indication: Pain in right hip TECHNIQUE: Images: XR HIP 3V PELV+ AP/LAT RT Comparison: None. RESULT: Findings: Pelvis: No fractures or dislocations are seen. Sacroiliac joints are patent. Mild narrowing of both hip joints Right hip: No fractures or dislocations are seen. IMPRESSION: Mild narrowing both hip joints Corrective Therapist: PSCB Transcribe Date/Time: Jul 07 2022 8:05A Dictated by : MONTANA QUIÑONES DO This examination was interpreted and the report reviewed and electronically signed by: MONTANA QUIÑONES DO on Jul 07 2022 8:06AM EST [id number] Normal [facility] XR Pelvis and Hip - right AP and Lateral frogon 07-06-2022 Radiology Study observation (narrative) [facility] US DVT LOWER RTon 02-28-2022 [facility] XR HIP GENERAL 3V PELV/AP/LA T RIGHTon 12-08-2021 [facility] HIV 1 and HIV-2 antibody ass ay with HIV-1 p24 antigen detectionon 10-04-2021 HIV 1+2 Ab+HIV1 p24 Ag IA Ql Non-Reactive Nonreactive [facility] Work Phone: No Panel Informationon 10-04 Hepatitis B Surface Antigen Non-Reactive Nonreactive [facility] Work Phone: Hepatitis C Antibody Non-Reactive Nonreactive [facility] Work Phone: Comment on above: Non Reactive: < 0.8 Equivocal: >/= 0.8 to < 1.0 Reactive: >/= 1.0The CDC recommends that a reactive/equivocal HCV antibody result be followed up by the HCV Nucleic Acid Amplificationtest (810319) Miscellaneous Test See comment [facility] Work Phone: Comment on above: TEST RESULT LIMITSCt , Ng, Trich vag by GUCCI Chlamydia by GUCCI Negative Negative Gonococcus by GUCCI Negative Negative Trich vag by GUCCI Negative Negative ____ TESTING PERFORMED AT [facility]. ORIGINAL REPORT ON FILE IN LAB CONTAINS ADDITIONAL TEST SITE INFORMATION. Serum Treponema species anti body detectionon 10-04-2021 Treponema sp Ab Ql (S) Non-Reactive [facility] Work Phone: Large Joint Arthro/Inj: R gr eater trochanteric bursa [facility] Vital Signs Date Time Vital Sign Value Performing Clinician Facility 01-13-2025 10:45-0400 Body height 157.[address] Cholo Smith DO Work Phone: [facility] 01-13-2025 10:45-0400 Body mass index (BMI) [Ratio] 39.4 kg/m2 Dr. Cholo Smith DO Work Phone: [facility] 01-13-2025 10:45-0400 Body weight 97.[address] Cholo Smith DO Work Phone: [facility] 01-13-2025 10:45-0400 Diastolic blood pressure 87 mm[Hg] Dr. Cholo Smith DO Work Phone: [facility] 01-13-2025 10:45-0400 Systolic blood pressure 126 mm[Hg] Dr. Cholo Smith DO Work Phone: [facility] 01-03-2025 15:03-0400 Body height 157.[address] Cholo Smith DO Work Phone: [facility] 01-03-2025 15:03-0400 Body mass index (BMI) [Ratio] 38.6 kg/m2 Dr. Cholo Smith DO Work Phone: [facility] 01-03-2025 15:03-0400 Body weight 95.[address] Cholo Smith DO Work Phone: [facility] 01-03-2025 15:03-0400 Diastolic blood pressure 82 mm[Hg] Dr. Cholo Smith DO Work Phone: [facility] 01-03-2025 15:03-0400 Systolic blood pressure 138 mm[Hg] Dr. Cholo Smith DO Work Phone: [facility] 12-04-2024 14:55-0400 Body height 157.[address] Cholo Smith DO Work Phone: [facility] 12-04-2024 14:55-0400 Body mass index (BMI) [Ratio] 38.5 kg/m2 Dr. Cholo Smith DO Work Phone: [facility] 12-04-2024 14:55-0400 Body weight 95.[address] Cholo Smith DO Work Phone: [facility] 12-04-2024 14:55-0400 Diastolic blood pressure 77 mm[Hg] Dr. Cholo Smith DO Work Phone: [facility] 12-04-2024 14:55-0400 Systolic blood pressure 130 mm[Hg] Dr. Cholo Smith DO Work Phone: [facility] 11-07-2024 09:36-0400 Body mass index (BMI) [Ratio] 37.5 kg/m2 Dr. Cholo Smith DO Work Phone: [facility] 11-07-2024 09:36-0400 Body weight 93.[address] Cholo Smith DO Work Phone: [facility] 11-07-2024 09:36-0400 Diastolic blood pressure 77 mm[Hg] Dr. Cholo Smith DO Work Phone: [facility] 11-07-2024 09:36-0400 Systolic blood pressure 117 mm[Hg] Dr. Cholo Smith DO Work Phone: [facility] 10-15-2024 12:47-0400 Body height 157.[address] Cholo Smith DO Work Phone: [facility] 10-15-2024 12:47-0400 Body mass index (BMI) [Ratio] 36.6 kg/m2 Dr. Cholo Smith DO Work Phone: [facility] 10-15-2024 12:47-0400 Body weight 90.[address] Cholo Smith DO Work Phone: [facility] 10-15-2024 12:47-0400 Diastolic blood pressure 86 mm[Hg] Dr. Cholo Smith DO Work Phone: [facility] 10-15-2024 12:47-0400 Systolic blood pressure 136 mm[Hg] Dr. Cholo Smith DO Work Phone: [facility] 10-12-2024 00:51-0400 Body temperature 98.5 [degF] Dr. Cholo Smith DO Work Phone: [facility] 10-12-2024 00:51-0400 Diastolic blood pressure 72 mm[Hg] Dr. Cholo Smith DO Work Phone: [facility] 10-12-2024 00:51-0400 Heart rate 85 /min Dr. Cholo Smith DO Work Phone: [facility] 10-12-2024 00:51-0400 Respiratory rate 18 /min Dr. Cholo Smith DO Work Phone: [facility] 10-12-2024 00:51-0400 SaO2% (BldA) [Mass fraction] 99 % Dr. Cholo Smith DO Work Phone: [facility] 10-12-2024 00:51-0400 Systolic blood pressure 132 mm[Hg] Dr. Cholo Smith DO Work Phone: [facility] 10-11-2024 21:50-0400 Body mass index (BMI) [Ratio] 37.6 kg/m2 Dr. Cholo Smith DO Work Phone: [facility] 10-11-2024 21:50-0400 Body weight 93.[address] Cholo Smith DO Work Phone: [facility] 10-07-2024 13:55-0400 Body mass index (BMI) [Ratio] 36.6 kg/m2 Dr. Cholo Smith DO Work Phone: [facility] 10-07-2024 13:55-0400 Body weight 90.[address] Cholo Smith DO Work Phone: [facility] 10-07-2024 13:55-0400 Diastolic blood pressure 85 mm[Hg] Dr. Cholo Smith DO Work Phone: [facility] 10-07-2024 13:55-0400 Systolic blood pressure 138 mm[Hg] Dr. Cholo Smith DO Work Phone: [facility] 09-10-2024 14:53-0500 Body height 157.[address] Cholo Smith DO Work Phone: [facility] 09-10-2024 14:53-0500 Body mass index (BMI) [Ratio] 35.9 kg/m2 Dr. Cholo Smith DO Work Phone: [facility] 09-10-2024 14:53-0500 Body weight 88.[address] Cholo Smith DO Work Phone: [facility] 09-10-2024 14:53-0500 Diastolic blood pressure 85 mm[Hg] Dr. Cholo Smith DO Work Phone: [facility] 09-10-2024 14:53-0500 Systolic blood pressure 136 mm[Hg] Dr. Cholo Smith DO Work Phone: [facility] 08-26-2024 12:56-0500 Body mass index (BMI) [Ratio] 35.5 kg/m2 Dr. Cholo Smith DO Work Phone: [facility] 08-26-2024 12:56-0500 Body weight 88.[address] Cholo Smith DO Work Phone: [facility] 08-26-2024 12:56-0500 Diastolic blood pressure 89 mm[Hg] Dr. Cholo Smith DO Work Phone: [facility] 08-26-2024 12:56-0500 Systolic blood pressure 137 mm[Hg] Dr. Cholo Smith DO Work Phone: [facility] 08-13-2024 15:09-0500 Body mass index (BMI) [Ratio] 35.4 kg/m2 Dr. Cholo Smith DO Work Phone: [facility] 08-13-2024 15:09-0500 Body weight 87.[address] Cholo Smith DO Work Phone: [facility] 08-13-2024 15:09-0500 Diastolic blood pressure 84 mm[Hg] Dr. Cholo Smith DO Work Phone: [facility] 08-13-2024 15:09-0500 Systolic blood pressure 139 mm[Hg] Dr. Cholo Smith DO Work Phone: [facility] 06-26-2024 12:56-0500 Body mass index (BMI) [Ratio] 34.9 kg/m2 Dr. Cholo Smith DO Work Phone: [facility] 06-26-2024 12:56-0500 Body weight 86.[address] Cholo Smtih DO Work Phone: [facility] 06-26-2024 12:56-0500 Diastolic blood pressure 90 mm[Hg] Dr. Cholo Smith DO Work Phone: [facility] 06-26-2024 12:56-0500 Systolic blood pressure 147 mm[Hg] Dr. Cholo Smith DO Work Phone: [facility] 06-24-2024 09:28-0500 Body weight 87.[address] Cholo Smith DO Work Phone: [facility] 06-24-2024 09:28-0500 Diastolic blood pressure 89 mm[Hg] Dr. Cholo Smith DO Work Phone: [facility] 06-24-2024 09:28-0500 Heart rate 67 /min Dr. Cholo Smith DO Work Phone: [facility] 06-24-2024 09:28-0500 Respiratory rate 16 /min Dr. Cholo Smith DO Work Phone: [facility] 06-24-2024 09:28-0500 SaO2% (BldA) [Mass fraction] 98 % Dr. Cholo Smith DO Work Phone: [facility] 06-24-2024 09:28-0500 Systolic blood pressure 157 mm[Hg] Dr. Cholo Smith DO Work Phone: [facility] 06-11-2024 13:55-0500 Body temperature 97.5 [degF] Dr. Cholo Smith DO Work Phone: [facility] 06-11-2024 13:55-0500 Diastolic blood pressure 94 mm[Hg] Dr. Cholo Smith DO Work Phone: [facility] 06-11-2024 13:55-0500 Heart rate 78 /min Dr. Cholo Smith DO Work Phone: [facility] 06-11-2024 13:55-0500 Respiratory rate 16 /min Dr. Cholo Smith DO Work Phone: [facility] 06-11-2024 13:55-0500 SaO2% (BldA) [Mass fraction] 97 % Dr. Cholo Smith DO Work Phone: [facility] 06-11-2024 13:55-0500 Systolic blood pressure 138 mm[Hg] Dr. Cholo Smith DO Work Phone: [facility] 06-11-2024 11:18-0500 Body mass index (BMI) [Ratio] 34.7 kg/m2 Dr. Cholo Smith DO Work Phone: [facility] 06-11-2024 11:18-0500 Body weight [address] Cholo Smith DO Work Phone: [facility] 10-20-2023 14:52-0400 Body height 157.[address] Cholo Smith Work Phone: [facility] 10-20-2023 14:52-0400 Diastolic blood pressure 80 mm[Hg] Dr. Cholo Smith Work Phone: [facility] 10-20-2023 14:52-0400 Systolic blood pressure 139 mm[Hg] Dr. Cholo Smith Work Phone: [facility] 10-20-2023 14:47-0400 Body mass index (BMI) [Ratio] 34.7 kg/m2 Dr. Cholo Smith Work Phone: [facility] 10-20-2023 14:47-0400 Body weight 86.[address] Cholo Smith Work Phone: [facility] 09-19-2023 10:01-0400 Body mass index (BMI) [Ratio] 33.3 kg/m2 Dr. Cholo Smith Work Phone: [facility] 09-19-2023 10:01-0400 Body weight 82.[address] Cholo Smith Work Phone: [facility] 09-19-2023 10:01-0400 Diastolic blood pressure 80 mm[Hg] Dr. Cholo Smith Work Phone: [facility] 09-19-2023 10:01-0400 Systolic blood pressure 141 mm[Hg] Dr. Cholo Smith Work Phone: [facility] 08-21-2023 14:43-0500 Body height 157.[address] Cholo Smith Work Phone: [facility] 08-21-2023 14:43-0500 Body mass index (BMI) [Ratio] 31.8 kg/m2 Dr. Cholo Smith Work Phone: [facility] 08-21-2023 14:43-0500 Body weight 78.[address] Cholo Smith Work Phone: [facility] 08-21-2023 14:43-0500 Diastolic blood pressure 84 mm[Hg] Dr. Cholo Smith Work Phone: [facility] 08-21-2023 14:43-0500 Systolic blood pressure 126 mm[Hg] Dr. Cholo Smith Work Phone: [facility] 05-30-2023 09:47-0500 Diastolic blood pressure 86 mm[Hg] Dr. Cholo Smith Work Phone: [facility] 05-30-2023 09:47-0500 Systolic blood pressure 138 mm[Hg] Dr. Cholo Smith Work Phone: [facility] 05-30-2023 09:34-0500 Body height 157.[address] Cholo Smith Work Phone: [facility] 05-30-2023 09:34-0500 Body mass index (BMI) [Ratio] 29.2 kg/m2 Dr. Cholo Smith Work Phone: [facility] 05-30-2023 09:34-0500 Body temperature 98.2 [degF] Dr. Cholo Smith Work Phone: [facility] 05-30-2023 09:34-0500 Body weight 72.[address] Cholo Smith Work Phone: [facility] 05-30-2023 09:34-0500 Heart rate 112 /min Dr. Cholo Smith Work Phone: [facility] 05-30-2023 09:34-0500 Respiratory rate 16 /min Dr. Cohlo Smith Work Phone: [facility] 05-30-2023 09:34-0500 SaO2% (BldA) [Mass fraction] 98 % Dr. Cholo Smith Work Phone: [facility] 02-18-2023 09:46-0400 Body height 157.[address] Cholo Smith Work Phone: [facility] 02-18-2023 09:46-0400 Body mass index (BMI) [Ratio] 27.4 kg/m2 Dr. Cholo Smith Work Phone: [facility] 02-18-2023 09:46-0400 Body temperature 98.6 [degF] Dr. Cholo Smith Work Phone: [facility] 02-18-2023 09:46-0400 Body weight 68.[address] Cholo Smith Work Phone: [facility] 02-18-2023 09:46-0400 Diastolic blood pressure 85 mm[Hg] Dr. Cholo Smith Work Phone: [facility] 02-18-2023 09:46-0400 Heart rate 70 /min Dr. Cholo Smith Work Phone: [facility] 02-18-2023 09:46-0400 Respiratory rate 16 /min Dr. Cholo Smith Work Phone: [facility] 02-18-2023 09:46-0400 SaO2% (BldA) [Mass fraction] 97 % Dr. Cholo Smith Work Phone: [facility] 02-18-2023 09:46-0400 Systolic blood pressure 120 mm[Hg] Dr. Cholo Smith Work Phone: [facility] 12-08-2022 11:00-0400 Body temperature 98.6 [degF] Dr. Cholo Smith Work Phone: [facility] 12-08-2022 11:00-0400 Diastolic blood pressure 91 mm[Hg] Dr. Cholo Smith Work Phone: [facility] 12-08-2022 11:00-0400 Heart rate 69 /min Dr. Cholo Smith Work Phone: [facility] 12-08-2022 11:00-0400 Respiratory rate 16 /min Dr. Cholo Smith Work Phone: [facility] 12-08-2022 11:00-0400 SaO2% (BldA) [Mass fraction] 100 % Dr. Cholo Smith Work Phone: [facility] 12-08-2022 11:00-0400 Systolic blood pressure 132 mm[Hg] Dr. Cholo Smith Work Phone: [facility] 12-08-2022 08:41-0400 Body height 157.[address] Cholo Smith Work Phone: [facility] 12-08-2022 08:41-0400 Body mass index (BMI) [Ratio] 29.5 kg/m2 Dr. Cholo Smith Work Phone: [facility] 12-08-2022 08:41-0400 Body weight 73.[address] Cholo Smith Work Phone: [facility] 10-28-2022 11:11-0400 Body height 157.5 cm Pacc 1 Work Phone: [facility] 10-28-2022 11:11-0400 Body temperature 97.81 [degF] Pacc 1 Work Phone: [facility] 10-28-2022 11:11-0400 Body weight 78.47 kg Pacc 1 Work Phone: [facility] 10-28-2022 11:11-0400 Diastolic blood pressure 84 mm[Hg] Pacc 1 Work Phone: [facility] 10-28-2022 11:11-0400 Heart rate 79 /min Pacc 1 Work Phone: [facility] 10-28-2022 11:11-0400 Respiratory rate 16 /min Pacc 1 Work Phone: [facility] 10-28-2022 11:11-0400 SaO2% (BldA) [Mass fraction] 99 % Pacc 1 Work Phone: [facility] 10-28-2022 11:11-0400 Systolic blood pressure 138 mm[Hg] Pacc 1 Work Phone: [facility] 10-08-2022 12:52-0400 Body temperature 97.3 [degF] Dr. Cholo Smith Work Phone: [facility] 10-08-2022 12:52-0400 Diastolic blood pressure 68 mm[Hg] Dr. Cholo Smith Work Phone: [facility] 10-08-2022 12:52-0400 Heart rate 97 /min Dr. Cholo Smith Work Phone: [facility] 10-08-2022 12:52-0400 Respiratory rate 14 /min Dr. Cholo Smith Work Phone: [facility] 10-08-2022 12:52-0400 SaO2% (BldA) [Mass fraction] 98 % Dr. Cholo Smith Work Phone: [facility] 10-08-2022 12:52-0400 Systolic blood pressure 110 mm[Hg] Dr. Cholo Smith Work Phone: [facility] 09-01-2021 11:13-0500 Body height 157.[address] Cholo Smith Work Phone: [facility] Encounters Encounter Date Encounter Type Care Provider Facility Start: 01-13-2025 End: 01-13-2025 Patient encounter procedure Lawson Parry CNM -[facility] Work Phone: Start: 01-13-2025 End: 01-13-2025 ambulatory Cholo Smith Facility:[facility] Start: 01-03-2025 End: 01-03-[address] Reina Rashid DO -[facility] Work Phone: Start: 01-03-2025 End: 01-03-[address] Cholo Smith DO Work Phone: -[facility] Start: 12-30-2024 End: 12-30-2024 ambulatory AMINA Dsouza [facility] Start: 12-26-2024 End: 12-26-[address] Cholo Smith DO Work Phone: [facility] Start: 12-26-2024 End: 12-26-[address] Reina Rashid DO -[facility] Start: 12-26-2024 End: 12-26-2024 ambulatory Reina Rashid Facility:[facility] Start: 12-04-2024 End: 12-04-[address] Reina Rashid DO -[facility] Work Phone: Start: 12-04-2024 End: 12-04-[address] Cholo Smith DO Work Phone: [facility] Work Phone: Start: 12-03-2024 End: 12-03-2024 ambulatory PURA [facility] Start: 11-18-2024 End: 11-18-2024 ambulatory CHOLO SMITH [facility] Start: 11-07-2024 End: 11-07-[address] Piedad Moreno MD -[facility] Work Phone: Start: 11-07-2024 End: 11-07-2024 ambulatory Cholo Smith Facility:[facility] Start: 10-31-2024 End: 10-31-2024 ambulatory REINA GARCIA [facility] Start: 10-15-2024 End: 10-15-[address] Cholo Smith DO Work Phone: [facility] Work Phone: Start: 10-15-2024 End: 10-15-[address] Piedad Moreno MD -Laboratory, Specimen Work Phone: Start: 10-15-2024 End: 10-15-[address] Pidead Moreno MD -[facility] Work Phone: Start: 10-15-2024 End: 10-15-2024 ambulatory Cholo Sarah Facility:[facility] Start: 10-15-2024 End: 10-15-2024 ambulatory Piedad Moreno Facility:[facility] Start: 10-11-2024 End: 10-12-2024 Emergency department patient visit Dr. Mary Jane Wade DO -Emergency Department Work Phone: Start: 10-07-2024 End: 10-07-2024 Patient encounter procedure Lawson Parry CNM -[facility] Work Phone: Start: 10-07-2024 End: 10-07-2024 ambulatory [facility] Facility:[facility] Start: 09-10-2024 End: 09-10-[address] Reina Rashid DO -[facility] Work Phone: Start: 09-10-2024 End: 09-10-[address] Cholo Smith DO Work Phone: [facility] Work Phone: Start: 09-10-2024 End: 09-10-2024 ambulatory Reina Rashid Facility:[facility] Start: 08-26-2024 End: 08-26-2024 Patient encounter procedure Lawson Parry CNM -[facility] Work Phone: Start: 08-26-2024 End: 08-26-2024 ambulatory [facility] Facility:[facility] Start: 08-19-2024 Encounter for other preprocedural examination Elijah [facility] Start: 08-13-2024 End: 08-13-[address] Reina Rashid DO -Laboratory, Specimen Work Phone: Start: 08-13-2024 End: 08-13-[address] Reina Rashid DO -[facility] Work Phone: Start: 08-13-2024 End: 08-13-2024 ambulatory [facility] Facility:[facility] Start: 08-13-2024 End: 08-13-2024 ambulatory Reina Rashid Facility:[facility] Start: 08-05-2024 ambulatory Elijah Orlando Facility :[facility] Start: 07-08-2024 End: 07-08-2024 Patient encounter procedure Elijah Shafer DO -[facility] Work Phone: Start: 07-08-2024 End: 07-08-2024 ambulatory Cholo [facility] Facility:[facility] Start: 06-26-2024 End: 06-26-2024 Patient encounter procedure Ivett HOFF -Laboratory, Specimen Work Phone: Start: 06-26-2024 End: 06-26-2024 Patient encounter procedure Ivett PORRASC -[facility] Work Phone: Start: 06-26-2024 End: 06-26-2024 ambulatory Cholo BrysonSarah Facility:[facility] Start: 06-26-2024 End: 06-26-2024 ambulatory Ivett Marquez Facility:[facility] Start: 06-24-2024 End: 06-24-2024 Patient encounter procedure Reina HOFF -[facility] Work Phone: Start: 06-24-2024 End: 06-24-2024 ambulatory Cholo [facility] Facility:[facility] Start: 06-11-2024 ambulatory [facility] Facility: [facility] Start: 06-11-2024 Non-patient / Non-visit Elijah Shafer DO -[facility] Start: 06-11-2024 End: 06-11-2024 Admission to same day surgery center Elijah Shafer DO -Endoscopy Work Phone: Start: 06-11-2024 End: 06-11-2024 ambulatory [facility] Facility:[facility] Start: 05-27-[address] Keiry Rashid DO -Physical Therapy Work Phone: Start: 05-27-2024 End: 05-27-2024 ambulatory Reina Rashid Facility:[facility] Start: 05-10-2024 End: 05-10-2024 ambulatory [facility] Facility:[facility] Start: 05-10-2024 End: 05-10-2024 ambulatory Lisseth Jackson Facility:[facility] Start: 04-23-2024 End: 04-23-2024 ambulatory [facility] Facility:[facility] Start: 03-21-2024 End: 03-21-2024 ambulatory [facility] Facility:[facility] Start: 03-19-2024 ambulatory Cholo Smith Facility: [facility] Start: 03-19-2024 ambulatory Reina Rashid Fa cility:[facility] Start: 03-19-2024 End: 03-20-2024 Evaluation and management of inpatient Reina Rashid Facility:[facility] Start: 03-12-2024 End: 03-12-2024 ambulatory Reina Nick Heather Facility:[facility] Start: 03-12-2024 End: 03-12-2024 ambulatory Reina Nick Heather Facility:[facility] Start: 03-06-2024 End: 03-06-2024 ambulatory Cholo BrysonSarah Facility:[facility] Start: 03-04-2024 End: 03-05-2024 ambulatory Lawson Parry Facility:[facility] Start: 03-04-2024 End: 03-04-2024 ambulatory Lawson Parry Facility:[facility] Start: 02-26-2024 End: 02-26-2024 ambulatory Cholo Smith Facility:[facility] Start: 02-26-2024 End: 02-26-2024 ambulatory Cholo Smith Facility:[facility] Start: 02-22-2024 ambulatory Cholo Smith Facility: [facility] Start: 02-22-2024 End: 02-22-2024 ambulatory JEREMIAH MANNING [facility] Start: 02-22-2024 End: 02-22-2024 ambulatory Cholo Smith Facility:[facility] Start: 02-20-2024 End: 02-21-2024 ambulatory Cholo Smith Facility:[facility] Start: 02-19-2024 End: 02-19-2024 ambulatory Cholo Smith [facility] Start: 02-13-2024 End: 02-13-2024 ambulatory Cholo Smith [facility] Start: 01-30-2024 End: 01-30-2024 ambulatory Cholo Smith Facility:[facility] Start: 01-25-2024 End: 01-25-2024 ambulatory CHOLO SMITH [facility] Start: 01-15-2024 End: 01-15-2024 ambulatory Cholo Smith Facility:[facility] Start: 01-15-2024 End: 01-15-2024 ambulatory Reina Rashid Facility:[facility] Start: 10-20-2023 End: 10-20-[address] Cholo Smith Work Phone: [facility] Work Phone: Start: 10-20-2023 End: 10-20-[address] [facility] Work Phone: Start: 10-20-2023 End: 10-20-[address] Cholo Smith Work Phone: [facility] Work Phone: Start: 09-19-2023 End: 09-19-[address] Cholo Smith Work Phone: [facility] Work Phone: Start: 09-12-2023 End: 09-12-[address] Cholo Smith Work Phone: [facility] Work Phone: Start: 09-12-2023 End: 09-12-[address] Cholo Smith Work Phone: [facility] Work Phone: Start: 08-21-2023 End: 08-21-[address] Cholo Smith Work Phone: [facility] Work Phone: Start: 08-21-2023 End: 08-21-[address] Cholo Smith Work Phone: [facility] Spec[facility] Work Phone: Start: 08-21-2023 End: 08-21-[address] Cholo Smith Work Phone: [facility] Work Phone: Start: 05-30-2023 End: 05-30-[address] Cholo Smith Work Phone: [facility] Work Phone: Start: 05-26-2023 End: 05-26-[address] Cholo Smith Work Phone: [facility] Work Phone: Start: 05-26-2023 End: 05-26-[address] Cholo Smith Work Phone: [facility], [place] Abernathy [place] Start: 05-12-2023 End: 05-12-2023 ambulatory CHOLO SMITH [facility] Start: 05-12-2023 End: 05-12-2023 Patient encounter procedure Kelly Calabrese PA-C Work Phone: Orthopaedics Comment on above: Strain of calf muscl e, left, initial encounter (Primary Dx) Start: 05-12-2023 End: 05-12-2023 Subsequent hospital visit by physician Radio General Lindsey Morales Work Phone: Radiology Comment on above: Pain of left calf [M 79.662] Start: 03-22-2023 End: 03-22-[address] Cholo Smith Work Phone: [facility] Work Phone: Start: 03-22-2023 End: 03-22-[address] Cholo Smith Work Phone: [facility] Work Phone: Start: 03-03-2023 End: 03-03-[address] Cholo Smith Work Phone: [facility], Specimen Work Phone: Start: 03-01-2023 End: 03-01-[address] [facility] Facility[facility] Start: 03-01-2023 End: 03-01-2023 Subsequent hospital visit by physician Radio General Portillo [facility] Work Phone: Radiology Comment on above: Pain in left hip [M2 5.552] Start: 02-18-2023 End: 02-18-[address] Cholo Smith Work Phone: [facility] Work Phone: Start: 12-28-2022 End: 12-28-2022 ambulatory PIERRE HICKS Facility:[facility] Start: 12-28-2022 End: 12-28-2022 Patient encounter procedure Cathryn Morrell DO Work Phone: Orthopaedics Comment on above: S/P orthopedic surge ry, follow-up exam (Primary Dx); Trochanteric bursitis of right hip; Iliotibial band syndrome of right side Start: 12-08-2022 End: 12-08-2022 Emergency department patient visit Dr. Cholo Smith Work Phone: [facility]Emergency Department Start: 11-21-2022 End: 11-21-2022 ambulatory PIERRE HICKS Facility:[facility] Start: 11-09-2022 Telephone encounter Cathryn Morrell DO Work Phone: Orthopaedics Comment on above: Appointment Start: 11-08-2022 End: 11-08-2022 ambulatory J LUIS NINO (HISTORIC) [facility] Facility:[facility] Start: 11-02-2022 End: 11-02-2022 ambulatory J LUIS NINO (HISTORIC) [facility] Facility:[facility] Start: 11-02-2022 End: 11-02-2022 Patient encounter procedure Cathryn Morrell DO Work Phone: Orthopaedics Comment on above: Trochanteric bursiti s of right hip (Primary Dx); Iliotibial band syndrome of right side Start: 10-28-2022 End: 10-29-2022 ambulatory CATHRYN MORRELL Facility:[facility] Start: 10-28-2022 Encounter for other preprocedural examination J LUIS JACOBSON [facility] Start: 10-28-2022 End: 10-28-2022 Admission to establishment [facility] 1 Work Phone: [facility] Start: 10-28-2022 End: 10-28-2022 ambulatory [facility] 1 Work Phone: Pre Anesthesia Comment on above: Preop examination (P rimary Dx) Start: 10-28-2022 End: 10-28-2022 Preprocedural examination done [facility] 1 Work Phone: Pre Anesthesia Start: 10-08-2022 End: 10-08-[address] Cholo Smith Work Phone: [facility] Start: 09-26-2022 Orders Only Cathryn Morrell DO Work Phone: Orthopaedics Comment on above: Trochanteric bursiti s of right hip (Primary Dx); Iliotibial band syndrome of right side Start: 09-16-2022 End: 09-16-2022 ambulatory J LUIS MICA (HISTORIC) [facility] Facility:[facility] Start: 09-12-2022 ambulatory Cathryn Morrell DO Work Phone: [facility] Start: 09-12-2022 Follow-up encounter Cathryn Morrell DO Work Phone: Orthopaedics Comment on above: MRI follow up Start: 09-07-2022 End: 09-07-[address] Cholo Smith Work Phone: [facility] Work Phone: Start: 09-07-2022 End: 09-07-[address] Cholo Smith Work Phone: [facility] Start: 09-02-2022 End: 09-02-[address] Cholo Smith Work Phone: [facility] Work Phone: Start: 09-02-2022 End: 09-02-[address] Cholo Smith Work Phone: [facility] Start: 09-01-2022 End: 09-01-[address] Cholo Smith Work Phone: [facility] Work Phone: Start: 09-01-2022 End: 09-01-[address] Cholo Smith Work Phone: [facility]-Physical Therapy Start: 09-01-[address] Cholo Smith Work Phone: [facility] Start: 08-18-2022 End: 08-18-2022 ambulatory CATHRYN MORRELL Facility:[facility] Start: 08-18-2022 End: 08-18-2022 Patient encounter procedure Cathryn Morrell DO Work Phone: Orthopaedics Comment on above: Trochanteric bursiti s of right hip (Primary Dx) Start: 07-20-2022 End: 07-20-[address] Cholo Smith Work Phone: [facility] Virtual Visit Start: 07-18-2022 End: 07-18-[address] Cholo Smith Work Phone: [facility]-Outpatient Breast Imaging Start: 07-13-2022 End: 07-13-[address] Cholo Smith Work Phone: [facility] Start: 07-13-[address] Cholo disla Work Phone: [facility]-Employee Health Start: 07-06-2022 End: 07-06-2022 ambulatory CATHRYN MORRELL Facility:[facility] Start: 07-06-2022 End: 07-06-2022 Patient encounter procedure Cathryn Morrell DO Work Phone: Orthopaedics Comment on above: Trochanteric bursiti s of right hip (Primary Dx); Iliotibial band syndrome of right side Start: 07-06-2022 End: 07-06-2022 Subsequent hospital visit by physician Radio General Lindsey Morales Work Phone: Radiology Comment on above: Pain in right hip [M 25.551] Start: 04-21-2022 End: 04-21-2022 Patient encounter procedure Cathryn Morrell DO Work Phone: Orthopaedics Comment on above: Trochanteric bursiti s of right hip (Primary Dx); Iliotibial band syndrome of right side Start: 03-09-2022 End: 03-09-2022 Patient encounter procedure Cathryn Morrell DO Work Phone: Orthopaedics Comment on above: Trochanteric bursiti s of right hip (Primary Dx); Iliotibial band syndrome of right side Start: 02-28-2022 Telephone encounter Kelly Johnson PA-C Work Phone: [facility] [place] Comment on above: Appointment Start: 02-28-2022 End: 02-28-2022 Subsequent hospital visit by physician [facility] Work Phone: Radiology Comment on above: Right calf pain [M79 .661] Start: 01-28-2022 Telephone encounter Cathryn Morrell DO Work Phone: Orthopaedics Comment on above: Appointment Start: 01-21-2022 End: 01-21-2022 Patient encounter procedure Cathryn Morrell DO Work Phone: Orthopaedics Comment on above: Iliotibial band synd neil of right side (Primary Dx); Pain in hip; Trochanteric bursitis of right hip Start: 12-31-2021 End: 12-31-[address] Cholo Smith Work Phone: [facility] Start: 12-15-2021 Telephone encounter Cathryn Morrell DO Work Phone: Orthopaedics Comment on above: Appointment Start: 12-08-2021 End: 12-08-2021 Patient encounter procedure Cathryn Limonamakatharina DO Work Phone: Orthopaedics Comment on above: Hip pain (Primary Dx ); Pain in hip; Trochanteric bursitis of right hip; Iliotibial band syndrome of right side Start: 12-08-2021 End: 12-08-2021 Subsequent hospital visit by physician Radio General Lindsey Morales Work Phone: Radiology Comment on above: Pain [R52] Start: 11-11-2021 Non-patient / Non-visit Dr. Cholo Smith Work Phone: [facility] Start: 11-03-2021 End: 11-03-[address] Cholo Smith Work Phone: [facility] Start: 10-04-2021 End: 10-04-[address] Cholo Smith Work Phone: [facility]-Laboratory, [place] [employer] Start: 09-14-2021 End: 09-14-[address] Cholo Smith Work Phone: [facility] Procedures Date Procedure Procedure Detail Performing Clinician Start: 12-26-2024 Serologic test for syphilis Dr. Cholo Smith DO Work Phone: Start: 10-15-2024 Gram stain microscopy Annia Smith DO Work Phone: Start: 10-15-2024 End: 10-15-[address] Cholo jacobsen DO Work Phone: Start: 10-15-[address] Cholo Smith DO Work Phone: Start: 10-11-2024 Urnls dip stick/tabl et reagent auto microscopy Dr. Cholo Smith DO Work Phone: Start: 10-11-2024 Transvaginal obst[address] ic ultrasonography Dr. Cholo Smith DO Work Phone: Start: 09-10-2024 Hepatitis C antibody measurement Dr. Cholo Smith DO Work Phone: Comment on above: Reactive: Presumptiv e evidence of antibodies to HCV. Follow CDC recommendations for supplemental testing.Non-Reactive: Antibodies to HCV were not detected; does not exclude the possibility of exposure to HCVReactive Results are presumptive evidence of antibodies to HCV. Follow CDC recommendations for supplemental testing.Order confirmation testing: HCV Quant by PCR testing - HCVPCR #[id number] Non Reactive: < 0.8 Equivocal: >/= 0.8 to < 1.0 Reactive: >/= 1.0The CDC requires that a reactive/equivocal HCV antibody result be sent out for confirmation. HCV Quant by PCR testing. Start: 09-10-[address] Cholo disla DO Work Phone: Start: 09-10-[address] Cholo Smith DO Work Phone: Comment on above: Antibody Result: Int erpretationNon-Reactive: Non- ImmuneReactive: ImmuneThe following results were obtained with the [employer] Rubella IgG assay. Results from assays of other manufacturers cannot be used interchangeably. Start: 09-10-2024 Serologic test for syphilis Dr. Cholo Smith DO Work Phone: Start: 08-13-2024 Gram stain microscopy Annia Smith DO Work Phone: Start: 08-13-2024 End: 08-13-2024 Microbial culture, routine Dr. Cholo lopez DO Work Phone: Start: 08-13-[address] Cholo Smith DO Work Phone: Start: 06-26-2024 Gram stain microscopy Annia Smith DO Work Phone: Start: 06-26-2024 Polymerase chain oneida ction analysis Dr. Cholo Smith DO Work Phone: Start: 06-26-[address] Cholo Smith DO Work Phone: Start: 06-26-[address] Cholo Smith DO Work Phone: Start: 10-20-[address] Migdalia Smith Work Phone: Start: 10-20-2023 Investigation of tra nsfusion reaction Dr. Cholo Smith Work Phone: Start: 10-20-[address] Cholo Smith Work Phone: Start: 08-21-[address] Cholo Smith Work Phone: Start: 05-12-2023 Radiologic examinati on tibia & fibula 2 views [facility] Work Phone: Start: 03-01-2023 Radex hip unilateral with pelvis 2-3 views [facility] Work Phone: Start: 09-02-2022 MRI of joint of lowe r extremity Dr. Cholo Smith Work Phone: Start: 07-18-2022 Bilateral mammography D brian. Cholo Smith Work Phone: Start: 07-18-[address] Cholo Smith Work Phone: Start: 07-06-2022 Arthrocentesis aspir &/inj major jt/bursa w/o us Ctahryn Morrell DO Work Phone: Start: 07-06-2022 Radex hip unilateral with pelvis 2-3 views Cathryn Morrell DO Work Phone: Start: 02-28-2022 Dup-scan xtr veins unilateral/limited study [facility] Work Phone: Start: 12-31-2021 MRI of joint of lowe r extremity Dr. Cholo Smith Work Phone: Start: 12-08-2021 Radex hip unilateral with pelvis 2-3 views Cathryn Morrell DO Work Phone: Viral antigen assay Dr. Cholo Smith Work Phone: Plan of Treatment Date Care Activity Detail Author Start: 06-15-2030 Urine microalbumin profile DTaP,Tdap,Td Vaccine (3 - Td or Tdap) [facility] Start: 10-15-2024 Source specific culture Genital Cult ure [facility] Start: 10-15-2024 Source specific culture [facility] Start: 10-12-2024 [facility] Start: 06-11-2024 Colonoscopy flexible with band ligation(s) COLONOSCOPY W/BAND LIGATION [facility] Start: 06-11-2024 Destruction internal hemorrhoid thermal energy DESTROY INTERNAL HEMORRHOIDS [facility] Start: 06-11-2024 Patient discharge [facility] Start: 03-10-2024 Covid-19 Vaccine () Covid-19 Vaccine () [facility] Start: 03-10-2024 Influenza vaccination Influenza Vacc ine (#1) [facility] Start: 12-08-2022 Incision & drainage abscess simple/single DRAINAGE OF SKIN ABSCESS [facility] Start: 07-10-2022 DEPRESSION ASSESSMENT DEPRESSION ASS [facility] Start: 03-10-2022 Influenza vaccination INFLUENZA (#1) [facility] Start: 11-11-2021 Patient referral [facility] Work Phone: Start: 07-10-2021 DEPRESSION ASSESSMENT DEPRESSION ASS [facility] Start: 2018 HPV TESTING HPV TESTING [facility] Start: 2009 PAP TESTING PAP TESTING [facility] Start: 2009 Screening for malign ant neoplasm of cervix Cervical Cancer Screening [facility] Start: 11-14-2007 Urine microalbumin profile DTAP,TDAP,TD (1 - Tdap) [facility] Start: 2006 Anxiety Screening Anxiety Screening [facility] Start: 2006 Depression Screening Depression Scre ening [facility] Start: 2006 [facility] Start: 2006 Hepatitis C screening Hepatitis C [facility] Start: 2006 HIV SCREENING HIV SCREENING [facility] Start: 2006 HIV screening HIV Screening [facility] Start: 2000 Adult depression screening assessment DEPRESSION SCREENING [facility] Start: 1988 HEPATITIS B (1 of 3 - 3-dose series) HEPATITIS B (1 of 3 - 3-dose series) [facility] CBC W Auto Different ial panel - Blood [facility] CBC W Auto Different ial panel - Blood [facility] Hepatitis B surface antigen measurement [facility] Hepatitis C antibody measurement [facility] HIV 1+2 Ab+HIV1 p24 Ag [Presence] in Serum or Plasma by Immunoassay [facility] Measurement of gluco se 2 hours after glucose challenge for glucose tolerance test [facility] End: 01-07-2023 Mri any jt lower extrem w/o contrast matrl MRI HIP WO IVCON RT Radiology Routine Pain in hip 1 Occurrences starting 12/08/2021 until 01/07/2023 [facility] Work Phone: Comment on above: 1 Occurrences starti ng 12/08/2021 until 01/07/2023 End: 09-17-2023 MRI HIP WO IVCON RT MRI HIP WO IVCON RT Radiology Routine Trochanteric bursitis of right hip 1 Occurrences starting 08/18/2022 until 09/17/2023 [facility] Work Phone: Comment on above: 1 Occurrences starti ng 08/18/2022 until 09/17/2023 Patient Education [facility] Work Phone: Patient referral [facility] Work Phone: Radionuclide study o f abdomen [facility] Rubella IgG measurement [facility] Serologic test for syphilis [facility] Treponema sp Ab [Presence] in Serum [facility] US Abdomen limited [facility] Immunizations Immunization Date Immunization Notes Care Provider [facility] 05-16-2024 influenza, seasonal, injectable, preservative free Dr. Cholo Smith DO Work Phone: [facility] 01-15-2024 tetanus toxoid, redu esthela diphtheria toxoid, and acellular pertussis vaccine, adsorbed Dr. Cholo Smith DO Work Phone: [facility] 05-04-2023 Covid (Spikevax) Dr. Cholo Ann Work Phone: [facility] 04-12-2023 influenza, injectabl e, quadrivalent, preservative free Dr. Cholo Smith Work Phone: [facility] 04-12-2023 influenza virus vaccine, unspecified formulation [employer] Work Phone: [facility] 04-11-2022 influenza, injectabl e, quadrivalent, preservative free Dr. Cholo Smith Work Phone: [facility] 04-11-2022 influenza, seasonal, injectable Dr. Cholo Smith Work Phone: [facility] 04-01-2022 Covid Pfizer Bivalen t Booster Dr. Cholo Smith Work Phone: [facility] 05-14-2021 Covid (Pfizer) Dr. Cholo lopez Work Phone: [facility] 04-16-2021 influenza, injectabl e, quadrivalent, preservative free Dr. Cholo Smith Work Phone: [facility] 04-16-2021 influenza, seasonal, injectable Dr. Cholo Smith Work Phone: [facility] 10-01-2020 Covid (Pfizer) Dr. Cholo lopez Work Phone: [facility] 09-10-2020 Covid (Pfizer) Dr. Cholo lopez Work Phone: [facility] 06-15-2020 tetanus toxoid, redu esthela diphtheria toxoid, and acellular pertussis vaccine, adsorbed Dr. Cholo Smith Work Phone: [facility] 04-15-2020 influenza, injectabl e, quadrivalent, preservative free Dr. Cholo Smith Work Phone: [facility] 04-15-2020 influenza, seasonal, injectable Dr. Cholo Smith Work Phone: [facility] 11-25-2019 hepatitis B vaccine, adult dosage Dr. Cholo Smith Work Phone: [facility] 06-27-2019 hepatitis B vaccine, adult dosage Dr. Cholo Smith Work Phone: [facility] 05-30-2019 hepatitis B vaccine, adult dosage Dr. Cholo Smith Work Phone: [facility] 02-23-2018 influenza, injectabl e, quadrivalent, preservative free Dr. Cholo Smith Work Phone: [facility] 02-23-2018 influenza, seasonal, injectable Dr. Cholo Smith Work Phone: [facility] 02-23-2018 tetanus toxoid, redu esthela diphtheria toxoid, and acellular pertussis vaccine, adsorbed Dr. Cholo Smith Work Phone: [facility] Payers Date Payer Category Payer Self-pay [id number] 2022 Unknown [id number] 2020 Unknown ELA SORENSEN PPO [id number] 2020-Present [phone] [address] [place] [address] PPO [id number] 2020 Unknown [id number] 2020 Unknown [id number]. 1.13.159.2.7.3.6 [id number] 1988 Unknown [id number] 2.16.840.1.546081.3.579.2.479 1988 Unknown [id number] 2.840.1.441462.3.579.2.479 1988 Unknown [id number] 2.840.1.558410.3.579.2.479 1988 Unknown [id number] 2.840.1.970063.3.579.2.479 1988 Unknown [id number] 2.840.1.987097.3.579.2.479 1988 Unknown [id number] 2.840.1.232712.3.579.2.479 Unknown [id number] 2.840.1.118559.3.579.2.462 Unknown [id number] 2.840.1.091693.3.579.2.462 Unknown [id number] 2.840.1.022130.3.579.2.462 Unknown [id number] 2.840.1.180903.3.579.2.462 Unknown [id number] 2.840.1.049521.3.579.2.462 Unknown [id number] 2.840.1.137274.3.579.2.462 Unknown [id number] 2.16840.1.676057.3.579.2.462 Unknown [id number] 2.840.1.130137.3.579.2.462 Unknown [id number] 2.840.1.238924.3.579.2.462 Unknown [id number] 2.840.1.873098.3.579.2.462 Unknown [id number] 2.16.840.1.713077.3.579.2.462 Unknown [id number] 2.16.840.1.517676.3.579.2.462 Unknown [id number] 2.16.840.1.019888.3.579.2.462 Unknown [id number] 2.16840.1.683089.3.579.2.462 Unknown [id number] 2.840.1.754626.3.579.2.462 Unknown [id number] 2.840.1.785672.3.579.2.462 Unknown [id number] 2.840.1.523374.3.579.2.462 Unknown [id number] 2.840.1.422183.3.579.2.462 Unknown [id number] 2.840.1.915131.3.579.2.462 Unknown [id number] 2.840.1.560446.3.579.2.462 Unknown [id number] 2.840.1.338827.3.579.2.462 Unknown [id number] 2.840.1.134597.3.579.2.462 Unknown [id number] 2.840.1.610846.3.579.2.462 Unknown [id number] 2.840.1.773673.3.579.2.462 Unknown [id number] 2.840.1.491592.3.579.2.462 Unknown [id number] 2.840.1.054368.3.579.2.462 Unknown [id number] 2.840.1.229819.3.579.2.462 Unknown [id number] 2.840.1.740300.3.579.2.462 Unknown [id number] 2.16.840.1.349353.3.579.2.462 Unknown [id number] 2.16.840.1.465377.3.579.2.462 Unknown [id number] 2.16.840.1.151409.3.579.2.462 Unknown [id number] 2.16.840.1.954308.3.579.2.462 Unknown [id number] 2.16840.1.837705.3.579.2.462 Unknown [id number] 2.16840.1.728970.3.579.2.462 Unknown [id number] 2.840.1.219698.3.579.2.462 Unknown [id number] 2.840.1.985649.3.579.2.462 Unknown [id number] 2.840.1.716990.3.579.2.462 Unknown [id number] 2.840.1.438915.3.579.2.462 Unknown [id number] 2.840.1.441472.3.579.2.462 Unknown [id number] 2.840.1.970876.3.579.2.462 Unknown [id number] 2.840.1.526935.3.579.2.462 Unknown [id number] 2.840.1.534603.3.579.2.462 Unknown [id number] 2.840.1.834147.3.579.2.462 Unknown [id number] 2.840.1.726804.3.579.2.462 Unknown [id number] 2.840.1.097898.3.579.2.462 Unknown [id number] 2.16840.1.759079.3.579.2.462 Unknown [id number] 2.840.1.563416.3.579.2.462 Unknown [id number] 2.16.840.1.099090.3.579.2.462 Unknown [id number] 2.16.840.1.625106.3.579.2.462 Unknown [id number] 2.16.840.1.639569.3.579.2.462 Social History Date Type Detail Facility Start: 03-09-2022 End: 10-11-2024 Tobacco smoking status NHIS Never smoked tobacco [facility] Start: 12-08-2021 End: 04-21-2022 Alcohol intake Current non-drinker of alcohol (finding) [facility] Start: 1990 Sex Assigned At Female [facility] Start: 11-28-2021 End: 04-21-2022 Exposure to SARS-CoV-2 (event) Not sure [facility] Start: 11-03-2021 End: 10-20-2023 Tobacco smoking status NHIS Unknown if ever smoked [facility] Start: 11-01-2019 Non-smoker [facility] Start: 01-18-2022 End: 01-28-2022 Exposure to SARS-CoV-2 (event) Unable to assess [facility] Start: 03-09-2022 Tobacco use and exposure Smokeless tobacco non-user [facility] Start: 12-08-2021 End: 05-12-2023 History of Social function [facility] Start: 12-08-2021 End: 05-12-2023 Tobacco use panel [facility] Adult Depression Screening Assessment 0 [facility] Start: 12-08-2021 Gender identity Identifies as female gender (finding) [facility] Start: 12-08-2021 Sexual orientation Heterosexual (fin ding) [facility] Start: 09-24-2024 End: 10-17-2024 Sex Female (finding) [facility] NEGATED: Highlighted row [facility] NEGATED: Highlighted row Not [facility] Medical Equipment Procedure Code Equipment Code Equipment Origin al Text Equipment Identifier Dates Colonoscopy Oesophageal endoscopic ligator, single-useHaemorrhoid ligator [id number] FDA Start: 06-11-2024 Goals Date Patient Goal Desired Activity /State Mental Status Date Assessment Result Facility 06-11-2024 Cognitive function Level Of Consciousness Sedated [facility] Work Phone: 06-11-2024 Cognitive function Voice/Name [facility] Work Phone: Clinical Notes 12-08-2021 to 01-13-2025 Note Date & Type Note Facility 01-13-2025 Progress note [facility] 12-04-2024 Progress note [facility] 12-04-2024 Progress note Note Date/Time December 04, 2024 3:24pm [facility] [address], [address] [place] [address] OFFICE VISIT Date of Service: 12/04/24 MR#: [id number] Acct: [id number] Name: MANDI VALENTE Rep #: [id number] : 1990 Provider: Dr. Bernadine Rashid DO Age/Sex: 34/F Location: [facility] [place] Status: Signed Intake Vital Signs 09/10/24 14:53 11/07/24 09:36 12/04/24 14:55 Height 5 ft 2 in 5 ft 2 in 5 ft 2 in Weight: 210 lb 8 oz BMI 38.5 BP 130/77 H Intake Visit Reasons: 24 wk ob [employer] Required: No Is patient in pain?: No Allergies No Known Allergies Allergy (Verified 12/04/24 14:55) Medications ?Medication ?Instructions ?Recorded ?Confirmed ?Type multivitamin no.47-iron fum 27 1 cap PO DAILY pregnanc y 08/18/23 12/04/24 History mg-folate no.1 1 mg-dha 300 mg capsule (PNV-DHA) Diltiazem 2% / Lidocaine 5% #1 ea 06/24/24 12/04/24 Rx ointment (compound) polyethylene glycol 3350 17 4 g PO QDAY PRN 06/24/24 0 12/04/24 History gram/dose oral powder (Miralax) ferrous sulfate 325 mg (65 mg 325 mg PO Q OTHER DAY 12/04/24 History iron) tablet folic acid 0.8 mg capsule 0.8 mg PO QDAY 08/06/24 05/03/03 History famotidine 20 mg tablet (Pepcid) 20 mg PO BID 90 days #180 tabs 09/10/24 12/04/24 Rx Last Menstrual Period: 06/20/24 Zika: Zika virus screening: Negative : No PFSH PFSH Medical History Seasonal allergies Hx of pre-eclampsia in prior , currently Superficial varicosities Pre-eclampsia Galactorrhea Allergic dermatitis Trochanteric bursitis of right hip Lymphocytic colitis Non-smoker History of steroid therapy Constipation Umbilical hernia Chronic constipation Dichorionic diamniotic twin gestation Anal fissure External hemorrhoids Surgical History History of hip surgery Hx of umbilical hernia repair Hx of dilation and curettage History of hemorrhoidectomy (~05/2018) History of tonsillectomy Family History Mother Arthritis Hypertension Father Arthritis Hypertension CVA (cerebral vascular accident) Aunt Breast cancer Paternal Grandfather Heart disease Kidney disease Brother Hypertension Sister Hypertension Grandmother Breast cancer Paternal Diabetes Paternal Social History adopted: No household members: spouse and children number of children: 4 current occupational status: employed 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 current occupational exposures/hazards: No pets and animals: Yes (Avoid litterbox) pets and animals: cat(s) and dog(s) history of recent travel: No sexually active: Yes Smoking Status: Never smoker alcohol intake: current alcohol intake frequency: a few times a month details: not while substance use type: does not use well-balanced diet: daily or most days caffeine: Yes Type: carbonated beverages Number of servings: 2 eating out: 1-3 times/week during the past year weight has: increased > 10 lbs what type of physical activity do you participate in: none suraj/church: [employer] seatbelt use: always do you feel safe at home: Yes additional social history: [employer] History 5 Elective abortions Hx Para 3 Spontaneous abortions 1 Hx # Term Pregnancies Ectopic pregnancies Hx # Pregnancies Multiple births 1 # of living children 4 Past Pregnancies Del. Date Name GA/Weeks Outcome Route Bth Weight Infant Gen Labor Lgth Anes thes ia Del Locatn Provider FOB 04/05/18 Vinsen 41 live - full term 9#7oz Male 26 hrs epid ural [employer] Shey Madsen Alvarez 11/01/19 10 spontaneous 08/10/20 Lakisha 37 live - full term 5#14oz Female 10 HR epid ural [employer] Jenni Pino 08/10/20 Bledsoe 37 live - full term 6#4oz Male 10 HR epid ural [employer] Jenni Pino 03/19/24 Elaine 39 live - full term 8lbs 2oz Female [employer] Dr. Gleason Delivery Date: 04/05/18 Last Updated by: Merna Bermeo IOL post dates Delivery Date: 11/01/19 Last Updated by: Merna Bermeo D&C, blighted Ovum Delivery Date: 08/10/20 Last Updated by: Merna Bermeo IOL @ 37wks Twins, Gestational HTN/pre-e Delivery Date: 08/10/20 Last Updated by: Merna Bermeo IOL @ 37 weeks twins, gestational HTN, pre e Delivery Date: 03/19/24 Last Updated by: Lauren ANTHONY, gestational hypertension HPI 24 wk ob Details: MANDI VALENTE is a 34 year old who presents for routine OB visit. OB Visit RAMSES Calculator Estimated Delivery Date Method Current WG Current Estimate 03/27/25 LMP (Certain) 23w 6d Expected Delivery Route/Plan Labor Preferences- CB/BF classes: [] labor support person: [] labor intervention preferences: [] pain management options preferred: [] cut cord/dad catch: [] : [] PP control planned: [] discussed possible routes of delivery and associated risks: [] special requests: [] Specific Issue/Plans Covid status: [] Flu vaccine: [] Tdap vaccine: [] Rhogam: [] LARC form signed: [] Problem list reviewed and updated with the most current plan of care details and appropriate orders placed. Relevant counseling for the gestational age provided. Continue routine care and follow up unless otherwise noted in visit notes/problem list details Initial Weight: 196 lb Date -?-?-?-?-?-?-?-?-?-?-?-?- EGA Weight BP Urine Prot -?-?-?-?-?-?-?-?-?-?-?-?- Glucose FHR FuHt Pres Dilation -?-?-?-?-?-?-?-?-?-?-?-?- Effaced St Visit Note 08/13/24 -?-?-?-?-?-?-?-?--?-?-?-?- 7w 5d 193 lb 6 oz (-2 lb 10 oz) 139/84 -?-?-?-?-?-?-?-?-?-?-?-?- 165 -?-?-?-?-?-?-?-?-?-?-?-?- JV- CRL consiste nt with LMP. She does have a 1 cm NANCY near the cervix. pelvic rest encouraged. RTO in 2 weeks for follow up. pt has inclusion cyst that was drained at her last delivery and wants drained again today. JV- CRL consistent with LMP. desires NIPT. She does have a 1 cm NANCY near the cervix. pelvic rest encouraged. RTO in 2 weeks for follow up. pt has inclusion cyst that was drained at her last delivery and wants drained again today. 08/26/24 -?-?-?-?-?-?-?-?-?-?-?-?- 9w 4d 194 lb 8 oz (-1 lb 8 oz) 137/89 Negative -?-?-?-?-?-?-?-?--?-?-?-?- Negative 180 -?-?-?-?-?-?-?-?-?-?-?-?- KW- no vb/crampi ng. discussed starting atb and pt would like to wait to start this because she gets recurrent yeast infections with atb. small NANCY noted on US. will RTO in 2 weeks for follow up appt. 09/10/24 -?-?-?-?-?-?-?-?-?-?-?-?- 11w 5d 196 lb 2 oz (+2 oz) 136/85 Negative -?-?-?-?-?-?-?-?-?-?-?-?- Negative 155 -?-?-?-?-?-?-?-?-?-?-?-?- JV- no complaint s today. blood work done. 10/07/24 -?-?-?-?-?-?-?-?-?-?-?-?- 15w 4d 200 lb 2 oz (+4 lb 2 oz) 138/85 Negative -?-?-?-?-?-?-?-?-?-?-?-?- Negative 149 -?-?-?-?-?-?-?--?-?-?-?-?- KW- no vb/lof/ct x. cyst is bothersome again. [facility] scheduled KW- no vb/lof/ctx. cyst is b othersome again discussed with . [facility] scheduled 10/15/24 -?-?--?-?-?-?-?-?-?-?-?-?- 16w 5d 200 lb 6 oz (+4 lb 6 oz) 136/86 Negative -?-?-?-?-?-?-?-?-?-?-?-?- Negative 135 -?-?-?-?-?-?-?-?-?-?-?-?- - had episode of light bleeding yeast seen in ER hasn't been treated yet. urine culture and vaginal culture sent 11/07/24 -?-?-?-?-?-?-?-?-?-?-?-?- 20w 0d 205 lb 8 oz (+9 lb 8 oz) 117/77 Negative -?-?-?-?-?-?-?-?-?-?-?-?- Negative 145 -?-?-?-?-?-?-?-?-?-?-?-?- SM- no vb lof cr ampingboy on [facility]- no vb lof cramping boy o n 12/04/24 -?-?-?-?-?-?-?-?-?-?-?-?- 23w 6d 210 lb 8 oz (+14 lb 8 oz) 130/77 Negative -?--?-?-?-?-?-?-?-?-?-?-?- Negative 150 -?-?-?-?-?-?-?-?-?-?-?-?- JV- no lof, vagi nal bleeding, or dec fm.normal antomy scan. plan monthly growth scans for obesity and ama. glucola next visit. ACOG First Trimester First Trimester: Discussed Second Trimester Second Trimester: Signs and Symptoms of Labor, Selecting a care provider, Reproductive Life Planning & Contreception, Care Planning, Depression/Anxiety and Intimate Partner Violence; Discussed Tobacco Cessation Third Trimester Third Trimester: Pain Management Plans, Labor support person(s), Immediate Larc, Circumcision preference, Movement Monitoring, Signs and Symptoms of Preeclampsia, Education and Family Medical Leave or Disability Forms Results POC Urinalysis 2 Dip (Clinic) Office Urine Glucose Negative Last Edit by Lauren Osborn on 12/04/24 15: 08 Office Urine Protein Negative Last Edit by Lauren Osborn on 12/04/24 15: 08 Coding Level of Care Code OB Routine Diagnoses Short interval between pregnancies affecting in first trimester, antepartum O09.891 Advanced maternal age (AMA) in History of miscarriage, currently O09.299 Hx of twin in prior Z87.59 Supervision of high-risk O09.90 23 weeks gestation of Z3A.23 Weeks of gestation: 23 weeks Obesity affecting O99.210 Inclusion cyst of vulva N90.7 Hx of pre-eclampsia in prior , currently O09.299 Abdominal pain R10.9 Perianal candidiasis B37.89 Rectal pain K62.89 Pelvic floor weakness in female N81.89 Chronic anemia D64.9 Gestational hypertension, antepartum O13.9 Trimester: unspecified trimester Hemorrhoids, unspecified hemorrhoid type K64.9 Hemorrhoid type: unspecified Lymphocytic colitis K52.832 Assessment and Plan Assessment and Plan (1) Short interval between pregnancies affecting in first trimester, antepartum: Status: Acute Comment: baby 4 months old when became with this gestation. (2) Advanced maternal age (AMA) in : Status: Acute (3) History of miscarriage, currently : Status: Acute (4) Hx of twin in prior : Status: Acute Comment: Fraternal (5) Supervision of high-risk : Status: Acute Comment: PRR,, RAMSES 03/27/25, boy,PC Yasmine, Lakisha & Earnestine(Twins), Elaine Alvarez will be 39 weeks on Elaine's b-day. requests IOL on this day. (6) : Status: Acute Qualifiers: Weeks of gestation: 23 weeks Qualified Code(s): Z3A.23 - 23 weeks gestation of Comment: NIPT low risk, anatomy needs f/u views. (7) Obesity affecting : Status: Acute Comment: HgbA1c (8) Inclusion cyst of vulva: Status: Acute Comment: +actinomycis:4 wk of amoxil (9) Hx of pre-eclampsia in prior , currently : Status: Acute (10) Abdominal pain: Status: Acute (11) Perianal candidiasis: Status: Acute (12) Rectal pain: Status: Acute (13) Pelvic floor weakness in female: Status: Acute (14) Chronic anemia: Status: Chronic (15) Gestational hypertension: Status: Acute Qualifiers: Trimester: unspecified trimester Qualified Code(s): O13.9 - Gestational [-induced] hypertension without significant proteinuria, unspecified trimester Comment: resolved pp (16) Hemorrhoids: Status: Acute Qualifiers: Hemorrhoid type: unspecified Qualified Code(s): K64.9 - Unspecified hemorrhoids (17) Lymphocytic colitis: Status: Acute Orders: Orders POC Urinalysis 2 Dip (Clinic) Today CBC W/Diff, Automated Today O09.90 - Supervision of high risk , unspecified, unspecified trimester Glucose Challenge Gest 1H 50g Today O09.90 - Supervision of high risk , unspecified, unspecified trimester, Z13.1 - Encounter for screening fordiabetes mellitus HIV Today O09.90 - Supervision of high risk , unspecified, unspecifiedtrimester Syphilis Antibodies Today O09.90 - Supervision of high risk , unspecified, unspecified trimester 12/04/24 1524 <Electronically signed by Reina Billings DO> Date _ Reina Vande Velde DO Cosigner Signature: Date (if applicable) CC: ~ [facility] Work Phone: 1(743) 524-767103-31-2025 Evaluation note* Diagnosis Onset Date Resolution Status Admit Date Abdominal pain acute September 1:53pm Gestational hypertension acute October 07, 2024 1:53pm Hemorrhoids acute October 07 1:53pm History of miscarriage, currently acute October 07 1:53pm Hx of pre-eclampsia in prior , currently acute Ma h 2024 1:53pm Hx of twin in prio r acute October 07, 2024 1:53pm Inclusion cyst of vulva acute [facility] 2024 1:53pm Lymphocytic colitis acute October 07, 2024 1:53pm Obesity affecting acute October 07, 2024 1:53pm Pelvic floor weakness in female acut e October 07, 2024 1:53pm Perianal candidiasis acute Saúl h 2024 1:53pm acute October 07 1:53pm Rectal pain acute October 07 1:53pm Short interval between pregnancies affecting in first trimester, acute October 07, 2024 1:53pm Supervision of high-risk acute October 07, 2024 1:53pm Chronic anemia chronic September 1:53pm Advanced maternal age (AMA) in deleted October 07, 2024 1:53pm Abdominal pain acute October 15, 2024 12:44pm Gestational hypertension acute October 15, 2024 12:44pm Hemorrhoids acute October 15 12:44pm History of miscarriage, currently acute October 15 12:44pm Hx of pre-eclampsia in prior , currently acute Ap ril 2024 12:44pm Hx of twin in prio r acute October 15, 2024 12:44pm Inclusion cyst of vulva acute A pril 2024 12:44pm Lymphocytic colitis acute October 15, 2024 12:44pm Obesity affecting acute October 15, 2024 12:44pm Pelvic floor weakness in female acut e October 15, 2024 12:44pm Perianal candidiasis acute Apri l 2024 12:44pm acute October 15 12:44pm Rectal pain acute October 15 12:44pm Short interval between pregnancies affecting in first trimester, acute October 15, 025 12:44pm Supervision of high-risk acute October 15, 2024 12:44pm Chronic anemia chronic October 15, 2024 12:44pm Pelvic cramping inactive October 12:44pm Vaginal bleeding in inacti ve October 15, 2024 12:44pm Yeast vaginitis inactive October 12:44pm Advanced maternal age (AMA) in deleted October 15, 2024 12:44pm Abdominal pain acute November 07 9:28am Gestational hypertension acute November 07, 2024 9:28am Hemorrhoids acute November 07, 2024 9:28am History of miscarriage, currently acute November 07, 2024 9:28am Hx of pre-eclampsia in prior , currently acute 2024 9:28am Hx of twin in prio r acute November 07, 2024 9: 28am Inclusion cyst of vulva acute 2024 9:28am Lymphocytic colitis acute November 072024 9:28am Obesity affecting acute November 07, 2024 9:28am Pelvic floor weakness in female acut e November 07, 2024 9:28am Perianal candidiasis acute November 07, 2024 9:28am acute November 07, 2024 9:28am Rectal pain acute November 07, 2024 9:28am Short interval between pregnancies affecting in first trimester, acute November 07 9:28am Supervision of high-risk acute November 07, 2024 9: 28am Chronic anemia chronic November 07 025 9:28am Advanced maternal age (AMA) in deleted November 07, 2024 9: 28am Abdominal pain acute December 04, 2024 2:48pm Gestational hypertension acute December 04, 2024 2:48pm Hemorrhoids acute December 04 2:48pm History of miscarriage, currently acute December 04 2:48pm Hx of pre-eclampsia in prior , currently acute Ma y 2024 2:48pm Hx of twin in prio r acute December 04, 2024 2 :48pm Inclusion cyst of vulva acute M ay 2024 2:48pm Lymphocytic colitis acute November 082024 2:48pm Obesity affecting acute December 04, 2024 2:48pm Pelvic floor weakness in female acut e December 04, 2024 2:48pm Perianal candidiasis acute December 04, 2024 2:48pm acute December 04, 2024 2:48pm Rectal pain acute December 04 2:48pm Short interval between pregnancies affecting in first trimester, acute December 04 2:48pm Supervision of high-risk acute December 04, 2024 2 :48pm Chronic anemia chronic December 04, 2024 2:48pm Advanced maternal age (AMA) in deleted December 04, 2024 2 :48pm Abdominal pain acute January 03, 2025 2:52pm Abnormal glucose affecting acute January 03, 2025 2:52pm Gestational hypertension acute January 03, 2025 2:52pm Hemorrhoids acute January 03 2:52pm History of miscarriage, currently acute January 03 2:52pm Hx of pre-eclampsia in prior , currently acute Ju dc 2024 2:52pm Hx of twin in prio r acute January 03, 2025 2:52pm Inclusion cyst of vulva acute J une 2024 2:52pm Lymphocytic colitis acute January 03, 2025 2:52pm Obesity affecting acute January 03, 2025 2:52pm Pelvic floor weakness in female acut e January 03, 2025 2:52pm Perianal candidiasis acute January 03, 2025 2:52pm acute January 03 2:52pm Rectal pain acute January 03 2:52pm Short interval between pregnancies affecting in first trimester, acute January 03, 2 025 2:52pm Supervision of high-risk acute January 03, 2025 2:52pm Chronic anemia chronic January 03, 2025 2:52pm Advanced maternal age (AMA) in deleted January 03, 2025 2:52pm Abdominal pain acute January 13, 2025 10:41am Abnormal glucose affecting acute January 13, 2025 1 0:41am Advanced maternal age in multigravida acute January 13, 2025 1 0:41am Gestational hypertension acute January 13, 2025 10:41am Hemorrhoids acute January 13 10:41am History of miscarriage, currently acute January 13 10:41am Hx of pre-eclampsia in prior , currently acute Ju ly 2024 10:41am Hx of twin in prio r acute January 13, 2025 1 0:41am Inclusion cyst of vulva acute J sunita 2024 10:41am Lymphocytic colitis acute January 13, 2025 10:41am Obesity affecting acute January 13, 2025 10:41am Pelvic floor weakness in female acut e January 13, 2025 10:41am Perianal candidiasis acute January 13, 2025 10:41am acute January 13, 2025 10:41am Rectal pain acute January 13 10:41am Short interval between pregnancies affecting in first trimester, acute January 13 10:41am Supervision of high-risk acute January 13, 2025 1 0:41am Chronic anemia chronic January 13, 2025 10:41am [facility] Work Phone: 1(201) 105-243103-04-2025 Evaluation note* Diagnosis Onset Date Resolution Status Admit Date Abdominal pain acute September 10, 2024 2:47pm Advanced maternal age (AMA) in acute September 10, 2024 2:47pm Gestational hypertension acute September 10, 2024 2:47pm Hemorrhoids acute September 10 2:47pm History of miscarriage, currently acute September 10 2:47pm Hx of pre-eclampsia in prior , currently acute Ma rch 2024 2:47pm Hx of twin in prio r acute September 10, 2024 2:47pm Inclusion cyst of vulva acute M arch 2024 2:47pm Lymphocytic colitis acute September 10, 2024 2:47pm Obesity affecting acute September 10, 2024 2:47pm Pelvic floor weakness in female acut e September 10, 2024 2:47pm Perianal candidiasis acute Saúl h 2024 2:47pm acute September 10 2:47pm Rectal pain acute September 10 2:47pm Short interval between pregnancies affecting in first trimester, acute September 10 025 2:47pm Supervision of high-risk acute September 10, 2024 2:47pm Chronic anemia chronic September 10, 2024 2:47pm Abdominal pain acute September 1:53pm Advanced maternal age (AMA) in acute October 07, 2024 1:53pm Gestational hypertension acute October 07, 2024 1:53pm Hemorrhoids acute October 07 1:53pm History of miscarriage, currently acute October 07 1:53pm Hx of pre-eclampsia in prior , currently acute Ma rch 2024 1:53pm Hx of twin in prio r acute October 07, 2024 1:53pm Inclusion cyst of vulva acute M arch 2024 1:53pm Lymphocytic colitis acute October 07, 2024 1:53pm Obesity affecting acute October 07, 2024 1:53pm Pelvic floor weakness in female acut e October 07, 2024 1:53pm Perianal candidiasis acute Saúl h 2024 1:53pm acute October 07 1:53pm Rectal pain acute October 07 1:53pm Short interval between pregnancies affecting in first trimester, acute October 07, 2024 1:53pm Supervision of high-risk acute October 07, 2024 1:53pm Chronic anemia chronic September 1:53pm Abdominal pain acute October 15, 2024 12:44pm Advanced maternal age (AMA) in acute October 15, 2024 12:44pm Gestational hypertension acute October 15, 2024 12:44pm Hemorrhoids acute October 15 12:44pm History of miscarriage, currently acute October 15 12:44pm Hx of pre-eclampsia in prior , currently acute Ap ril 2024 12:44pm Hx of twin in prio r acute October 15, 2024 12:44pm Inclusion cyst of vulva acute A pril 2024 12:44pm Lymphocytic colitis acute October 15, 2024 12:44pm Obesity affecting acute October 15, 2024 12:44pm Pelvic floor weakness in female acut e October 15, 2024 12:44pm Perianal candidiasis acute Apri l 2024 12:44pm acute October 15 12:44pm Rectal pain acute October 15 12:44pm Short interval between pregnancies affecting in first trimester, acute October 15, 025 12:44pm Supervision of high-risk acute October 15, 2024 12:44pm Chronic anemia chronic October 15, 2024 12:44pm Pelvic cramping inactive October 12:44pm Vaginal bleeding in inacti ve October 15, 2024 12:44pm Yeast vaginitis inactive October 12:44pm Abdominal pain acute November 07, 025 9:28am Advanced maternal age (AMA) in acute November 07, 2024 9: 28am Gestational hypertension acute November 07, 2024 9:28am Hemorrhoids acute November 07, 2024 9:28am History of miscarriage, currently acute November 07, 2024 9:28am Hx of pre-eclampsia in prior , currently acute 2024 9:28am Hx of twin in prio r acute November 07, 2024 9: 28am Inclusion cyst of vulva acute M ay 2024 9:28am Lymphocytic colitis acute November 072024 9:28am Obesity affecting acute November 07, 2024 9:28am Pelvic floor weakness in female acut e November 07, 2024 9:28am Perianal candidiasis acute November 07, 2024 9:28am acute November 07, 2024 9:28am Rectal pain acute November 07, 2024 9:28am Short interval between pregnancies affecting in first trimester, acute November 07 9:28am Supervision of high-risk acute November 07, 2024 9: 28am Chronic anemia chronic November 07, 025 9:28am Abdominal pain acute December 04, 2024 2:48pm Advanced maternal age (AMA) in acute December 04, 2024 2 :48pm Gestational hypertension acute December 04, 2024 2:48pm Hemorrhoids acute December 04 2:48pm History of miscarriage, currently acute December 04 2:48pm Hx of pre-eclampsia in prior , currently acute Ma y 2024 2:48pm Hx of twin in prio r acute December 04, 2024 2 :48pm Inclusion cyst of vulva acute M ay 2024 2:48pm Lymphocytic colitis acute November 082024 2:48pm Obesity affecting acute December 04, 2024 2:48pm Pelvic floor weakness in female acut e December 04, 2024 2:48pm Perianal candidiasis acute December 04, 2024 2:48pm acute December 04, 2024 2:48pm Rectal pain acute December 04 2:48pm Short interval between pregnancies affecting in first trimester, acute December 04 2:48pm Supervision of high-risk acute December 04, 2024 2 :48pm Chronic anemia chronic December 04, 2024 2:48pm [facility] Work Phone: 1(356) 319-904503-04-2025 Evaluation note* Diagnosis Onset Date Resolution Status Admit Date Abdominal pain acute September 10, 2024 2:47pm Advanced maternal age (AMA) in acute September 10, 2024 2:47pm Gestational hypertension acute September 10, 2024 2:47pm Hemorrhoids acute September 10 2:47pm History of miscarriage, currently acute September 10 2:47pm Hx of pre-eclampsia in prior , currently acute [place] [facility] 2024 2:47pm Hx of twin in prio r acute September 10, 2024 2:47pm Inclusion cyst of vulva acute [facility] 2024 2:47pm Lymphocytic colitis acute September 10, 2024 2:47pm Obesity affecting acute September 10, 2024 2:47pm Pelvic floor weakness in female acut e September 10, 2024 2:47pm Perianal candidiasis acute [facility] 2024 2:47pm acute September 10 2:47pm Rectal pain acute September 10 2:47pm Short interval between pregnancies affecting in first trimester, acute September 10 2 025 2:47pm Supervision of high-risk acute September 10, 2024 2:47pm Chronic anemia chronic September 10, 2024 2:47pm Abdominal pain acute September 1:53pm Advanced maternal age (AMA) in acute October 07, 2024 1:53pm Gestational hypertension acute October 07, 2024 1:53pm Hemorrhoids acute October 07, 2 025 1:53pm History of miscarriage, currently acute October 07, 2 025 1:53pm Hx of pre-eclampsia in prior , currently acute Ma rch 2024 1:53pm Hx of twin in prio r acute October 07, 2024 1:53pm Inclusion cyst of vulva acute M arch 2024 1:53pm Lymphocytic colitis acute October 07, 2024 1:53pm Obesity affecting acute October 07, 2024 1:53pm Pelvic floor weakness in female acut e October 07, 2024 1:53pm Perianal candidiasis acute Saúl h 2024 1:53pm acute October 07 1:53pm Rectal pain acute October 07, 2 025 1:53pm Short interval between pregnancies affecting in first trimester, acute October 07, 2024 1:53pm Supervision of high-risk acute October 07, 2024 1:53pm Chronic anemia chronic September 1:53pm Abdominal pain acute October 15, 2024 12:44pm Advanced maternal age (AMA) in acute October 15, 2024 12:44pm Gestational hypertension acute October 15, 2024 12:44pm Hemorrhoids acute October 15 12:44pm History of miscarriage, currently acute October 15 12:44pm Hx of pre-eclampsia in prior , currently acute Ap ril 2024 12:44pm Hx of twin in prio r acute October 15, 2024 12:44pm Inclusion cyst of vulva acute A pril 2024 12:44pm Lymphocytic colitis acute October 15, 2024 12:44pm Obesity affecting acute October 15, 2024 12:44pm Pelvic floor weakness in female acut e October 15, 2024 12:44pm Perianal candidiasis acute Apri l 2024 12:44pm acute October 15 12:44pm Rectal pain acute October 15 12:44pm Short interval between pregnancies affecting in first trimester, acute October 15, 025 12:44pm Supervision of high-risk acute October 15, 2024 12:44pm Chronic anemia chronic October 15, 2024 12:44pm Pelvic cramping inactive October 12:44pm Vaginal bleeding in inacti ve October 15, 2024 12:44pm Yeast vaginitis inactive October 12:44pm Abdominal pain acute May 1st, 2 025 9:28am Advanced maternal age (AMA) in acute November 07, 2024 9: 28am Gestational hypertension acute November 07, 2024 9:28am Hemorrhoids acute November 07, 2024 9:28am History of miscarriage, currently acute November 07, 2024 9:28am Hx of pre-eclampsia in prior , currently acute 2024 9:28am Hx of twin in prio r acute November 07, 2024 9: 28am Inclusion cyst of vulva acute M ay 2024 9:28am Lymphocytic colitis acute November 072024 9:28am Obesity affecting acute November 07, 2024 9:28am Pelvic floor weakness in female acut e November 07, 2024 9:28am Perianal candidiasis acute November 07, 2024 9:28am acute November 07, 2024 9:28am Rectal pain acute November 07, 2024 9:28am Short interval between pregnancies affecting in first trimester, acute November 07 9:28am Supervision of high-risk acute November 07, 2024 9: 28am Chronic anemia chronic November 07, 025 9:28am Abdominal pain acute December 04, 2024 2:48pm Advanced maternal age (AMA) in acute December 04, 2024 2 :48pm Gestational hypertension acute December 04, 2024 2:48pm Hemorrhoids acute December 04 2:48pm History of miscarriage, currently acute December 04 2:48pm Hx of pre-eclampsia in prior , currently acute Ma y 2024 2:48pm Hx of twin in prio r acute December 04, 2024 2 :48pm Inclusion cyst of vulva acute M ay 2024 2:48pm Lymphocytic colitis acute November 082024 2:48pm Obesity affecting acute December 04, 2024 2:48pm Pelvic floor weakness in female acut e December 04, 2024 2:48pm Perianal candidiasis acute December 04, 2024 2:48pm acute December 04, 2024 2:48pm Rectal pain acute December 04 2:48pm Short interval between pregnancies affecting in first trimester, acute December 04 2:48pm Supervision of high-risk acute December 04, 2024 2 :48pm Chronic anemia chronic December 04, 2024 2:48pm Abdominal pain acute January 03, 2025 2:52pm Abnormal glucose affecting acute January 03, 2025 2:52pm Advanced maternal age (AMA) in acute January 03, 2025 2:52pm Gestational hypertension acute January 03, 2025 2:52pm Hemorrhoids acute January 03 2:52pm History of miscarriage, currently acute January 03 2:52pm Hx of pre-eclampsia in prior , currently acute Ju ne 2024 2:52pm Hx of twin in prio r acute January 03, 2025 2:52pm Inclusion cyst of vulva acute J une 2024 2:52pm Lymphocytic colitis acute January 03, 2025 2:52pm Obesity affecting acute January 03, 2025 2:52pm Pelvic floor weakness in female acut e January 03, 2025 2:52pm Perianal candidiasis acute January 03, 2025 2:52pm acute January 03 2:52pm Rectal pain acute January 03 2:52pm Short interval between pregnancies affecting in first trimester, acute January 03, 2 2:52pm Supervision of high-risk acute January 03, 2025 2:52pm Chronic anemia chronic January 03, 2025 2:52pm [facility] Work Phone: 1(514) 385-143602-04-2025 Evaluation note* Diagnosis Onset Date Resolution Status Admit Date Abdominal pain acute August 132024 3:04pm Advanced maternal age (AMA) in acute August 13 3:04pm Gestational hypertension acute August 13, 2024 3:04pm Hemorrhoids acute August 13, 2024 3:04pm History of miscarriage, currently acute August 13, 2024 3:04pm Hx of pre-eclampsia in prior , currently acute Fe bruary 2024 3:04pm Hx of twin in prio r acute August 13 3:04pm Inclusion cyst of vulva acute F ebruary 2024 3:04pm Lymphocytic colitis acute Febru david2024 3:04pm Obesity affecting acute August 13, 2024 3:04pm Pelvic floor weakness in female acute August 13 3:04pm Perianal candidiasis acute 2024 3:04pm acute August 13, 2024 3:04pm Rectal pain acute August 13, 2024 3:04pm Short interval between pregnancies affecting in first trimester, acute [facility] 2024 3:04pm Supervision of high-risk acute August 13 3:04pm Chronic anemia chronic August 132024 3:04pm Abdominal pain acute August 102024 12:46pm Advanced maternal age (AMA) in acute August 26, 2 025 12:46pm Gestational hypertension acute August 26, 2024 12:46pm Hemorrhoids acute August 12:46pm History of miscarriage, currently acute August 12:46pm Hx of pre-eclampsia in prior , currently acute [facility] 2024 12:46pm Hx of twin in prio r acute August 26, 2 025 12:46pm [facility] 12:46[facility] Lymphocytic colitis acute Febru dvaid2024 12:46pm Obesity affecting acute August 26, 2024 12:46pm Pelvic floor weakness in female acute August 26, 2 025 12:46pm Perianal candidiasis acute Febr uary 2024 12:46pm acute August 26, 2024 12:46pm Rectal pain acute August 12:46pm Short interval between pregnancies affecting in first trimester, acute [facility] 2024 12:46pm Supervision of high-risk acute August 26, 2 025 12:46pm Chronic anemia chronic August 102024 12:46pm Abdominal pain acute September 10, 2024 2:47pm Advanced maternal age (AMA) in acute September 10, 2024 2:47pm Gestational hypertension acute September 10, 2024 2:47pm Hemorrhoids acute September 10 2:47pm History of miscarriage, currently acute September 10 2:47pm Hx of pre-eclampsia in prior , currently acute [facility] 2024 2:47pm Hx of twin in prio r acute September 10, 2024 2:47pm Inclusion cyst of vulva acute M arch 2024 2:47pm Lymphocytic colitis acute September 10, 2024 2:47pm Obesity affecting acute September 10, 2024 2:47pm Pelvic floor weakness in female acute September 10, 2024 2:47pm Perianal candidiasis acute Saúl h 2024 2:47pm acute September 10 2:47pm Rectal pain acute September 10 2:47pm Short interval between pregnancies affecting in first trimester, acute [facility] 2024 2:47pm Supervision of high-risk acute September 10, 2024 2:47pm Chronic anemia chronic September 10, 2024 2:47pm Abdominal pain acute September 1:53pm Advanced maternal age (AMA) in acute October 07, 2024 1:53pm Gestational hypertension acute October 07, 2024 1:53pm Hemorrhoids acute October 07 025 1:53pm History of miscarriage, currently acute October 07 1:53pm Hx of pre-eclampsia in prior , currently acute [facility] 2024 1:53pm Hx of twin in prio r acute October 07, 2024 1:53pm Inclusion cyst of vulva acute [facility] 2024 1:53pm Lymphocytic colitis acute October 07, 2024 1:53pm Obesity affecting acute October 07, 2024 1:53pm Pelvic floor weakness in female acute October 07, 2024 1:53pm Perianal candidiasis acute Saúl h 2024 1:53pm acute October 07 1:53pm Rectal pain acute October 07 025 1:53pm Short interval between pregnancies affecting in first trimester, acute [facility] 2024 1:53pm Supervision of high-risk acute October 07, 2024 1:53pm Chronic anemia chronic September 1:53pm Abdominal pain acute October 15, 2024 12:44pm Advanced maternal age (AMA) in acute October 15, 2024 12:44pm Gestational hypertension acute October 15, 2024 12:44pm Hemorrhoids acute October 15 12:44pm History of miscarriage, currently acute October 15 12:44pm Hx of pre-eclampsia in prior , currently acute 2024 12:44pm Hx of twin in prio r acute October 15, 2024 12:44pm Inclusion cyst of vulva acute A pril 2024 12:44pm Lymphocytic colitis acute October 15, 2024 12:44pm Obesity affecting acute October 15, 2024 12:44pm Pelvic floor weakness in female acute October 15, 2024 12:44pm Perianal candidiasis acute Apri l 2024 12:44pm acute October 15 12:44pm Rectal pain acute October 15 12:44pm Short interval between pregnancies affecting in first trimester, acute Ap ril 2024 12:44pm Supervision of high-risk acute October 15, 2024 12:44pm Chronic anemia chronic October 15, 2024 12:44pm Pelvic cramping inactive October 12:44pm Vaginal bleeding in inacti ve October 15, 2024 12:44pm Yeast vaginitis inactive October 12:44pm Abdominal pain acute November 07 025 9:28am Advanced maternal age (AMA) in acute November 07, 2024 9: 28am Gestational hypertension acute November 07, 2024 9:28am Hemorrhoids acute November 07, 2024 9:28am History of miscarriage, currently acute November 07, 2024 9:28am Hx of pre-eclampsia in prior , currently acute 2024 9:28am Hx of twin in prio r acute November 07, 2024 9: 28am Inclusion cyst of vulva acute M ay 2024 9:28am Lymphocytic colitis acute November 072024 9:28am Obesity affecting acute November 07, 2024 9:28am Pelvic floor weakness in female acute November 07, 2024 9: 28am Perianal candidiasis acute November 07, 2024 9:28am acute November 07, 2024 9:28am Rectal pain acute November 07, 2024 9:28am Short interval between pregnancies affecting in first trimester, acute Ma y 2024 9:28am Supervision of high-risk acute November 07, 2024 9: 28am Chronic anemia chronic November 07, 025 9:28am Abdominal pain acute December 04, 2024 2:48pm Advanced maternal age (AMA) in acute December 04, 2024 2 :48pm Gestational hypertension acute December 04, 2024 2:48pm Hemorrhoids acute December 04 2:48pm History of miscarriage, currently acute December 04 2:48pm Hx of pre-eclampsia in prior , currently acute Ma y 2024 2:48pm Hx of twin in prio r acute December 04, 2024 2 :48pm Inclusion cyst of vulva acute M ay 2024 2:48pm Lymphocytic colitis acute November 082024 2:48pm Obesity affecting acute December 04, 2024 2:48pm Pelvic floor weakness in female acute December 04, 2024 2 :48pm Perianal candidiasis acute December 04, 2024 2:48pm acute December 04, 2024 2:48pm Rectal pain acute December 04 2:48pm Short interval between pregnancies affecting in first trimester, acute Ma y 2024 2:48pm Supervision of high-risk acute December 04, 2024 2 :48pm Chronic anemia chronic December 04, 2024 2:48pm [facility] Work Phone: 1(147) 567-962512-16-2024 Evaluation note* Diagnosis Onset Date Resolution Status Admit Date Hemorrhoids acute June 9:16am Perianal candidiasis acute Dece mb2023 9:16am Rectal pain acute June 9:16am Vaginal discharge resolved Decembe r 2023 12:47pm Abdominal pain acute June 112023 3:23pm Hemorrhoids acute June 3:23pm Lymphocytic colitis acute Decem 2023 3:23pm Rectal pain acute June 3:23pm Constipation deleted June 3:23pm Abdominal pain acute August 132024 3:04pm Advanced maternal age (AMA) in acute August 13 3:04pm Gestational hypertension acute August 13, 2024 3:04pm Hemorrhoids acute August 13, 2024 3:04pm History of miscarriage, currently acute August 13, 2024 3:04pm Hx of pre-eclampsia in prior , currently acute Fe bru2024 3:04pm Hx of twin in prio r acute August 13 3:04pm Inclusion cyst of vulva acute 2024 3:04pm Lymphocytic colitis acute u 2024 3:04pm Obesity affecting acute August 13, 2024 3:04pm Pelvic floor weakness in female acute August 13 3:04pm Perianal candidiasis acute 2024 3:04pm acute August 13, 2024 3:04pm Rectal pain acute August 13, 2024 3:04pm Short interval between pregnancies affecting in first trimester, acute 2024 3:04pm Supervision of high-risk acute August 13 3:04pm Chronic anemia chronic August 132024 3:04pm Abdominal pain acute August 102024 12:46pm Advanced maternal age (AMA) in acute August 26, 025 12:46pm Gestational hypertension acute August 26, 2024 12:46pm Hemorrhoids acute August 12:46pm History of miscarriage, currently acute August 12:46pm Hx of pre-eclampsia in prior , currently acute 2024 12:46pm Hx of twin in prio r acute August 26 025 12:46pm Inclusion cyst of vulva acute ary 2024 12:46pm Lymphocytic colitis acute u david2024 12:46pm Obesity affecting acute August 26, 2024 12:46pm Pelvic floor weakness in female acute August 26 025 12:46pm Perianal candidiasis acute 2024 12:46pm acute August 26, 2024 12:46pm Rectal pain acute August 12:46pm Short interval between pregnancies affecting in first trimester, acute [place] 2024 12:46pm Supervision of high-risk acute August 26 2 025 12:46pm Chronic anemia chronic August 102024 12:46pm Abdominal pain acute September 10, 2024 2:47pm Advanced maternal age (AMA) in acute September 10, 2024 2:47pm Gestational hypertension acute September 10, 2024 2:47pm Hemorrhoids acute September 10 2:47pm History of miscarriage, currently acute September 10 2:47pm Hx of pre-eclampsia in prior , currently acute [facility] 2024 2:47pm Hx of twin in prio r acute September 10, 2024 2:47pm Inclusion cyst of vulva acute M arch 2024 2:47pm Lymphocytic colitis acute September 10, 2024 2:47pm Obesity affecting acute September 10, 2024 2:47pm Pelvic floor weakness in female acute September 10, 2024 2:47pm Perianal candidiasis acute Saúl h 2024 2:47pm acute September 10 2:47pm Rectal pain acute September 10 2:47pm Short interval between pregnancies affecting in first trimester, acute [facility] 2024 2:47pm Supervision of high-risk acute September 10, 2024 2:47pm Chronic anemia chronic September 10, 2024 2:47pm [facility] Work Phone: 1(278) 546-904712-16-2024 Evaluation note* Diagnosis Onset Date Resolution Status Admit Date Hemorrhoids acute June 9:16am Perianal candidiasis acute Dece mber 2023 9:16am Rectal pain acute June 9:16am Vaginal discharge resolved Decembe r 2023 12:47pm Abdominal pain acute June 112023 3:23pm Hemorrhoids acute June 3:23pm Lymphocytic colitis acute Decem 2023 3:23pm Rectal pain acute June 3:23pm Constipation deleted June 3:23pm Abdominal pain acute August 132024 3:04pm Advanced maternal age (AMA) in acute August 13 3:04pm Gestational hypertension acute August 13, 2024 3:04pm Hemorrhoids acute August 13, 2024 3:04pm History of miscarriage, currently acute August 13, 2024 3:04pm Hx of pre-eclampsia in prior , currently acute Fe bru2024 3:04pm Hx of twin in prio r acute August 13 3:04pm Inclusion cyst of vulva acute F ebruary 2024 3:04pm Lymphocytic colitis acute Febru david 2024 3:04pm Obesity affecting acute August 13, 2024 3:04pm Pelvic floor weakness in female acute August 13 3:04pm Perianal candidiasis acute 2024 3:04pm acute August 13, 2024 3:04pm Rectal pain acute August 13, 2024 3:04pm Short interval between pregnancies affecting in first trimester, acute [facility] 2024 3:04pm Supervision of high-risk acute August 13 3:04pm Chronic anemia chronic August 132024 3:04pm Abdominal pain acute August 102024 12:46pm Advanced maternal age (AMA) in acute August 26, 2 025 12:46pm Gestational hypertension acute August 26, 2024 12:46pm Hemorrhoids acute August 12:46pm History of miscarriage, currently acute August 12:46pm Hx of pre-eclampsia in prior , currently acute [facility] 2024 12:46pm Hx of twin in prio r acute August 26, 2 025 12:46pm Inclusion cyst of vulva acute [facility] 2024 12:46pm Lymphocytic colitis acute david2024 12:46pm Obesity affecting acute August 26, 2024 12:46pm Pelvic floor weakness in female acute August 26, 2 025 12:46pm Perianal candidiasis acute 2024 12:46pm acute August 26, 2024 12:46pm Rectal pain acute August 12:46pm Short interval between pregnancies affecting in first trimester, acute [facility] 2024 12:46pm Supervision of high-risk acute August 26, 2 025 12:46pm Chronic anemia chronic August 102024 12:46pm Abdominal pain acute September 10, 2024 2:47pm Advanced maternal age (AMA) in acute September 10, 2024 2:47pm Gestational hypertension acute September 10, 2024 2:47pm Hemorrhoids acute September 10 2:47pm History of miscarriage, currently acute September 10 2:47pm Hx of pre-eclampsia in prior , currently acute [facility] 2024 2:47pm Hx of twin in prio r acute September 10, 2024 2:47pm Inclusion cyst of vulva acute M arch 2024 2:47pm Lymphocytic colitis acute September 10, 2024 2:47pm Obesity affecting acute September 10, 2024 2:47pm Pelvic floor weakness in female acute September 10, 2024 2:47pm Perianal candidiasis acute Saúl h 2024 2:47pm acute September 10 2:47pm Rectal pain acute September 10 2:47pm Short interval between pregnancies affecting in first trimester, acute [facility] 2024 2:47pm Supervision of high-risk acute September 10, 2024 2:47pm Chronic anemia chronic September 10, 2024 2:47pm Abdominal pain acute September 1:53pm Advanced maternal age (AMA) in acute October 07, 2024 1:53pm Gestational hypertension acute October 07, 2024 1:53pm Hemorrhoids acute October 07, 025 1:53pm History of miscarriage, currently acute October 07 025 1:53pm Hx of pre-eclampsia in prior , currently acute [facility] 2024 1:53pm Hx of twin in prio r acute October 07, 2024 1:53pm Inclusion cyst of vulva acute M arch 2024 1:53pm Lymphocytic colitis acute October 07, 2024 1:53pm Obesity affecting acute October 07, 2024 1:53pm Pelvic floor weakness in female acute October 07, 2024 1:53pm Perianal candidiasis acute Saúl h 2024 1:53pm acute October 07 1:53pm Rectal pain acute October 07, 2 025 1:53pm Short interval between pregnancies affecting in first trimester, acute [facility] 2024 1:53pm Supervision of high-risk acute October 07, 2024 1:53pm Chronic anemia chronic September 1:53pm Abdominal pain acute October 15, 2024 12:44pm Advanced maternal age (AMA) in acute October 15, 2024 12:44pm Gestational hypertension acute October 15, 2024 12:44pm Hemorrhoids acute October 15 12:44pm History of miscarriage, currently acute October 15 12:44pm Hx of pre-eclampsia in prior , currently acute Ap ril 2024 12:44pm Hx of twin in prio r acute October 15, 2024 12:44pm Inclusion cyst of vulva acute A pril 2024 12:44pm Lymphocytic colitis acute October 15, 2024 12:44pm Obesity affecting acute October 15, 2024 12:44pm Pelvic cramping acute October 12:44pm Pelvic floor weakness in female acute October 15, 2024 12:44pm Perianal candidiasis acute Apri l 2024 12:44pm acute October 15 12:44pm Rectal pain acute October 15 12:44pm Short interval between pregnancies affecting in first trimester, acute Ap ril 2024 12:44pm Supervision of high-risk acute October 15, 2024 12:44pm Vaginal bleeding in acute October 15, 2024 12:44pm Yeast vaginitis acute October 12:44pm Chronic anemia chronic October 15, 2024 12:44pm [facility] Work Phone: 1(845) 670-792012-03-2024 [facility]11-03-2023 NoteHNO ID: [id number] Author: Kelly Calabrese PA-C Service: ? Author Type: Physician Bond Clerk Type: Progress Notes Filed: 05/12/2023 2:41 PM Note Text: Kelly Calabrese PA-C Department of Orthopaedics Orthopaedics [address] [place], [place] [id number] Dept: [phone] May 12, 2023 SUBJECTIVE: CHIEF COMPLAINT: Established Patient and Pain of the Right Lower Leg HPI: Ms. Mandi Valente is a 32 year old female. She presents today with left lower leg pain that has been present for the past 1.5 weeks since she felt a pop while painting pumpkins. Today she rates her pain a 0 on a scale of 0 to 10 at rest. She states that her pain increases to a 4/10 with stairs and squatting. She notes that her pain has improved since her initial injury. She has been taking ibuprofen as needed. She denies any numbness/tingling, weakness or previous left sided surgeries. Of note, she did undergo right greater troch bursectomy in November of this year. Past Medical History: PAST MEDICAL HISTORY Diagnosis Date Unspecified hemorrhoids without mention of complication Past Surgical History: PAST SURGICAL HISTORY Procedure Laterality Date REM LESIO TRUNK,ARM,LEG 1.1 -2.0CM 09/20/2010 Exc. left medial buttock skin lesion REM LESION TRUNK,ARM,LEG 0.6 -1.0CM 10/11/2010 Exc. skin lesions x 3 REPAIR EPIGASTRIC HERNIA,REDUC 2020 TONSILLECTOMY AND ADENOIDECTOMY Family History: FAMILY HISTORY Problem Relation Age of Onset None Mother fibromyalgia., hypertension Hypertension Father Hypertension Sister Hypertension Brother Social History: Social History Tobacco Use Smoking status: Never Smokeless tobacco: Never Vaping Use Vaping Use: Never used Substance Use Topics Alcohol use: No Drug use: Never Medications: Current Outpatient Medications Medication Sig polyethylene glycol 3350 (MIRALAX) 17 gram/dose powder Take 17 g by mouth once daily. iron,carb/vit C/vit B12/folic (IRON 100 PLUS ORAL) Take 60 mg by mouth once daily. meloxicam (MOBIC) 15 mg tablet Take 15 mg by mouth once daily. multivit-min/iron/folic acid/K (ADULTS MULTIVITAMIN ORAL) Take by mouth. oxyCODONE-acetaminophen (PERCOCET) 5-325 mg tablet Take 1 tablet by mouth every 8 hours as needed for pain. No current facility-administered medications for this visit. Allergies: Patient has no known allergies. ROS: General: negative for fatigue, malaise, weight loss/gain Musculoskeletal: see HPI Psych: no depression, anxiety OBJECTIVE: Ms. Mandi Valente is a pleasant 32 year old in no apparent distress. Gen:There were no vitals taken for this visit. nl development, obese, no deformities ENT: Normocephalic, normal hearing, moist mucosa CV: Pulses:DP/PT= 2+ and symmetric, capillary refill < 2 secs, no peripheral edema/varicosities Skin: no rash, bruising or lesions. Good turgor. Psych: cooperative and appropriate, alert and oriented x 3, good mood and affect. Musculoskeletal: Left Ankle Exam Left ankle exam is normal. Muscle Strength Dorsiflexion: 5/5 Plantar flexion: 4/5 Anterior tibial: 5/5 Posterior tibial: 5/5 Comments: Mid calf tender to palpation Negative clarissa sign No swelling or erythema Left Knee Exam Left knee exam is normal. IMAGING: Images taken today and to my interpretation show no acute abnormality. Full imaging report available in [facility]. ASSESSMENT: S86.812A Strain of calf muscle, left, initial encounter (primary encounter diagnosis) PLAN: Reviewed images taken today. Recommendation for calf strain is physical therapy and activity modification as needed. Patient agreeable with plan and will follow up in 8 weeks. FOLLOW UP INSTRUCTIONS: [facility] NoteHNO ID: [id number] Author: Rhonda Hackett Tech Service: ? Author Type: Business Management Manager Type: Progress Notes Filed: 05/12/2023 12:33 PM Note Text: Radiology Service Progress Note PATIENT NAME: Mandi Valente DATE OF SERVICE: May 12, 2023 TIME: 12:32 PM PATIENT IDENTITY VERIFICATION COMPLETED USING TWO (2) IDENTIFIERS: Name and Date of confirmed by patient verbally. FALL SCREENING: Has the patient had 2 falls in the last year or 1 fall with injury or currently using an Ambulatory Assistive Device (Walker, Cane, Wheelchair, Crutches, etc.)? No PATIENT GENDER DATA: Female. status: : No status: NO. PATIENT RELEVANT IMPLANT DATA REVIEWED: Not Applicable RADIOLOGY DEPARTMENT: General X-ray: Exam(s) Completed: Lower Extremity X-Ray(s): Tibia Fibula, Left and Wt. Bearing PERIPHERAL IV DATA: Not applicable SIGNED BY: Maggy Lim May 12, 2023 12:32 PMWestern [facility] [id number] History of Present illness Narrative* Kelly Calabrese PA-C - 05/12/2023 10:51 AM EDT Kelly Calabrese PA-C Department of Orthopaedics Orthopaedics [address] [place], [place] [id number] Dept: [phone] May 12, 2023 SUBJECTIVE: CHIEF COMPLAINT: Established Patient and Pain of the Right Lower Leg HPI: Ms. Mandi Valente is a 32 year old female. She presents today with left lower leg pain that has been present for the past 1.5 weeks since she felt a pop while painting pumpkins. Today she rates her pain a 0 on a scale of 0 to 10 at rest. She states that her pain increases to a4/10 with stairs and squatting. She notes that her pain has improved since her initial injury. She has been taking ibuprofen as needed. She denies any numbness/tingling, weakness or previous left sided surgeries. Of note, she did undergo right greater troch bursectomy in November of this year. Past Medical History: PAST MEDICAL HISTORY Diagnosis Date Unspecified hemorrhoids without mention of complication Past Surgical History: PAST SURGICAL HISTORY Procedure Laterality Date REM LESIO TRUNK,ARM,LEG 1.1 -2.0CM 09/20/2010 Exc. left medial buttock skin lesion REM LESION TRUNK,ARM,LEG 0.6 -1.0CM 10/11/2010 Exc. skin lesions x 3 REPAIR EPIGASTRIC HERNIA,REDUC 2020 TONSILLECTOMY & ADENOIDECTOMY <AGE 10 2017 Family History: FAMILY HISTORY Problem Relation Age of Onset None Mother fibromyalgia., hypertension Hypertension Father Hypertension Sister Hypertension Brother Social History: Social History Tobacco Use Smoking status: Never Smokeless tobacco: Never Vaping Use Vaping Use: Never used Substance Use Topics Alcohol use: No Drug use: Never Medications: Current Outpatient Medications Medication Sig polyethylene glycol 3350 (MIRALAX) 17 gram/dose powder Take 17 g by mouth once daily. iron,carb/vit C/vit B12/folic (IRON 100 PLUS ORAL) Take 60 mg by mouth once daily. meloxicam (MOBIC) 15 mg tablet Take 15 mg by mouth once daily. multivit-min/iron/folic acid/K (ADULTS MULTIVITAMIN ORAL) Take by mouth. oxyCODONE-acetaminophen (PERCOCET) 5-325 mg tablet Take 1 tablet by mouth every 8 hours as needed for pain. No current facility-administered medications for this visit. Allergies: Patient has no known allergies. ROS: General: negative for fatigue, malaise, weight loss/gain Musculoskeletal: see HPI Psych: no depression, anxiety OBJECTIVE: Ms. Mandi Valente is a pleasant 32 year old in no apparent distress. Gen:There were no vitals taken for this visit. nl development, obese, no deformities ENT: Normocephalic, normal hearing, moist mucosa CV: Pulses:DP/PT= 2+ and symmetric, capillary refill < 2 secs, no peripheral edema/varicosities Skin: no rash, bruising or lesions. Good turgor. Psych: cooperative and appropriate, alert and oriented x 3, good mood and affect. Musculoskeletal: Left Ankle Exam Left ankle exam is normal. Muscle Strength Dorsiflexion: 5/5 Plantar flexion: 4/5 Anterior tibial: 5/5 Posterior tibial: 5/5 Comments: Mid calf tender to palpation Negative clarissa sign No swelling or erythema Left Knee Exam Left knee exam is normal. IMAGING: Images taken today and to my interpretation show no acute abnormality. Full imaging report available in Epic. ASSESSMENT: S86.812A Strain of calf muscle, left, initial encounter (primary encounter diagnosis) PLAN: Reviewed images taken today. Recommendation for calf strain is physical therapy and activity modification as needed. Patient agreeable with plan and will follow up in 8 weeks. FOLLOW UP INSTRUCTIONS: 8 weeks Kelly Calabrese PA-C documented in this encounterGal[facility]11-[facility]-2023 History of Present illness Narrative* Rhonda Hackett Tech - 05/12/2023 10:00 AM EDT Radiology Service Progress Note PATIENT NAME: Mandi Valente DATE OF SERVICE: May 12, 2023 TIME: 12:32 PM PATIENT IDENTITY VERIFICATION COMPLETED USING TWO (2) IDENTIFIERS: Name and Date of confirmedby patient verbally. FALL SCREENING: Has the patient had 2 falls in the last year or 1 fall with injury or currently using an Ambulatory Assistive Device (Walker, Cane, Wheelchair, Crutches, etc.)? No PATIENT GENDER DATA: Female. status: : No status: NO. PATIENT RELEVANT IMPLANT DATA REVIEWED: Not Applicable RADIOLOGY DEPARTMENT: General X-ray: Exam(s) Completed: Lower Extremity X- Ray(s): Tibia Fibula, Left and Wt. Bearing PERIPHERAL IV DATA: Not applicable SIGNED BY: Maggy Lim May 12, 2023 12:32 PM documented in this encounterGalion [facility] Hospital08-25-2023 NotePap Smear Specimen AdequacyAugust 2022 11:39amComment.Satisfactory for evaluation. Endocervical and/or squamous metaplasticcells (endocervical component)are present.[facility] A#[id number] Memorial HospitalComhelen [facility] on above: Satisfactory for evaluation. Endocervical and/or squamous metaplasticcells (endocervical component)are present.03-03-2023 NotePap Smear Specimen Adequacy March 03, 2023 10:39amComment.Satisfactory for evaluation. Endocervical and/or squamous metaplasticcells (endocervical component)are present.[facility] A#[id number] Health [facility] HospitalComhelen [facility] on above:Satisfactory for evaluation. Endocervical and/or squamous metaplasticcells (endocervical component)are present.03-01-2023 NoteHNO ID: [id number] Author: Cathryn Morrell, DO Service: ? Author Type: Physician Type: Progress Notes Filed: 03/01/2023 10:32 AM Note Text: Follow Up Visit Chief Complaint Mandi Valente is a 32 year old female who presents today for follow up office visit. Patient presents with: Right Hip - Pain, Follow Up Left Hip - New History of Present Illness PAIN EVALUATION 02/27/2023 1429 Pain Level: 2 Pain Location: Hip-Right Description: Aching Frequency: Intermittent Intervention/Comfort measure: Medication;Reposition Comments: I am only noticing the pain when im laying directly on my right hip HPI: Mandi Valente is a 32 year old female for a follow up visit bilateral hips. Right hip is doing well. Over 3 months out from bursectomy. Only has pain when laying on right hip at night time. Left hip does not have pain, patient inquiring if this could ever happen to that hip as well. Pain history is noted as above. Denies calf pain, numbness, tingling, fever, chills or other constitutional symptoms. Is there any overall improvement in your condition? Yes, pain Any new injury, since being seen last: No REVIEW OF SYMPTOMS: Patient did not have, and does not currently have, any weight loss, malaise, fever, chills, headache, chest pain, chest pressure, palpitations, cough, shortness of breath, orthopnea, paroxsymal nocturnal dyspnea, nausea, vomiting, diarrhea, constipation, melena, hematochezia, urinary difficulties, prolonged bleeding, easily bruising, heat or cold intolerance, new onset joint pain or swelling, new onset extremity weakness or numbness, new onset auditory or visual disturbances, lightheadedness, dizziness, partial loss of consciousness or full loss of consciousness. Current Outpatient Medications Medication Sig meloxicam (MOBIC) 15 mg tablet Take 15 mg by mouth once daily. multivit-min/iron/folic acid/K (ADULTS MULTIVITAMIN ORAL) Take by mouth. oxyCODONE-acetaminophen (PERCOCET) 5-325 mg tablet Take 1 tablet by mouth every 8 hours as needed for pain. No current facility-administered medications for this visit. Physical Exam Vitals: There were no vitals taken for this visit. Psych: Pleasant, good affect and mood General Appearance: Well appearing, alert, in no acute distress, well-hydrated, well nourished.. Skin: Skin color, texture, turgor normal, no suspicious rashes or lesions. Peripheral Pulses: Normal. Neurologic: Gait normal. Reflexes normal and symmetric. Sensation grossly intact.. Lymph Nodes: No cervical lymphadenopathy, No supraclavicular lymphadenopathy, No axillary lymphadenopathy., and No inguinal lymphadenopathy.. Respiratory: No recent pulmonary infection, hemoptysis, chronic cough, or shortness of breath at rest Rheumatologic: Joint deformities: bilateral hip pain Right Hip Exam Right hip exam is normal. Tenderness The patient is experiencing no tenderness. Range of Motion The patient has normal right hip ROM. Muscle Strength The patient has normal right hip strength. Other Erythema: absent Sensation: normal Pulse: present Left Hip Exam Left hip exam is normal. Tenderness The patient is experiencing no tenderness. Range of Motion The patient has normal left hip ROM. Muscle Strength The patient has normal left hip strength. Other Erythema: absent Sensation: normal Pulse: present Last XR Hip/Pelvis - Impression Only XR HIP GENERAL 3V PELV/AP/LAT LEFT Exam End: 03/01/2023 9:50 AM (In process) Assessment and Plan Radiographs: I have independently reviewed films and my findings are the same. and I have reviewed the images with the patient and family. Impression: Encounter Diagnosis ICD-10-CM 1. Pain of right hip M25.551 2. Status post right hip replacement Z96.641 Today, in detail, through a thorough evaluation, we discussed possible etiologies of pain and our plans for further diagnostic and therapeutic interventions. We discussed strategies for decreasing pain and improving strength, stability and motion. Patient's questions were answered in detailed. Patient verbalizes understanding and agrees with the treatment plan as discussed. Xrays of hip negative, awaiting official report Doing well from right hip, no pain in left hip Has lost 20lbs and is happy with her current progress No issues or concerns Patient aware and in agreement of plan. All questions answered. Follow up prn Cathryn LopezP.H.[facility]08-23-2023 NoteHNO ID: [id number] Author: Sydni Ring RT(Brian) Service: Radiology Author Type: Technologist Type: Progress Notes Filed: 03/01/2023 9:52 AM Note Text: Radiology Service Progress Note PATIENT NAME: Mandi Valente DATE OF SERVICE: March 01, 2023 TIME: 9:50 AM PATIENT IDENTITY VERIFICATION COMPLETED USING TWO (2) IDENTIFIERS: Name and Date of confirmed by patient verbally. FALL SCREENING: Has the patient had 2 falls in the last year or 1 fall with injury or currently using an Ambulatory Assistive Device (Walker, Cane, Wheelchair, Crutches, etc.)? No PATIENT GENDER DATA: Female. status: : No status: NO. PATIENT RELEVANT IMPLANT DATA REVIEWED: Not Applicable RADIOLOGY DEPARTMENT: General X-ray: Exam(s) Completed: Pelvis X-Ray: Pelvis with Hip Left and Wt. Bearing PERIPHERAL IV DATA: Not applicable SIGNED BY: RT Aries(Brian) March 01, 2023 9:50 AMWestern Reserve [id number] History of Present illness Narrative* Sydni Ring RT(R) - 03/01/2023 9:40 AM EDT Radiology Service Progress Note PATIENT NAME: Mandi Valente DATE OF SERVICE: March 01, 2023 TIME: 9:50 AM PATIENT IDENTITY VERIFICATION COMPLETED USING TWO (2) IDENTIFIERS: Name and Date of confirmedby patient verbally. FALL SCREENING: Has the patient had 2 falls in the last year or 1 fall with injury or currently using an Ambulatory Assistive Device (Walker, Cane, Wheelchair, Crutches, etc.)? No PATIENT GENDER DATA: Female. status: : No status: NO. PATIENT RELEVANT IMPLANT DATA REVIEWED: Not Applicable RADIOLOGY DEPARTMENT: General X-ray: Exam(s) Completed: Pelvis X-Ray: Pelvis with Hip Left and Wt. Bearing PERIPHERAL IV DATA: Not applicable SIGNED BY: RT Aries(R) March 01, 2023 9:50 AM documented in this encounterGalion [facility]06-21-2023 NoteHNO ID: [id number] Author: Cathryn Morrell, DO Service: ? Author Type: Physician Type: Progress Notes Filed: 12/28/2022 1:02 PM Note Text: Follow Up Visit Chief Complaint Mandi Valente is a 32 year old female who presents today for follow up office visit. Patient presents with: Right Hip - Post Op, Pain History of Present Illness PAIN EVALUATION 12/28/2022 0958 Pain Level: 2 Pain Location: Hip-Right Description: Sore;Aching Duration Amount of Time: -- DOS: 11/08/22 Frequency: Intermittent HPI: Mandi Valente is a 32 year old female for a follow up visit S/P Right hip arthroscopy, itb release, trochanteric bursectomy, scar debridement on 11/11/2022. Patient states she is doing well, complains of some intermittent soreness. She is currently in PT and progressing well. Pain history is noted as above. Denies calf pain, numbness, tingling, fever, chills or other constitutional symptoms. Is there any overall improvement in your condition? Yes, pain Any new injury, since being seen last: No REVIEW OF SYMPTOMS: Patient did not have, and does not currently have, any weight loss, malaise, fever, chills, headache, chest pain, chest pressure, palpitations, cough, shortness of breath, orthopnea, paroxsymal nocturnal dyspnea, nausea, vomiting, diarrhea, constipation, melena, hematochezia, urinary difficulties, prolonged bleeding, easily bruising, heat or cold intolerance, new onset joint pain or swelling, new onset extremity weakness or numbness, new onset auditory or visual disturbances, lightheadedness, dizziness, partial loss of consciousness or full loss of consciousness. Current Outpatient Medications Medication Sig meloxicam (MOBIC) 15 mg tablet Take 15 mg by mouth once daily. multivit-min/iron/folic acid/K (ADULTS MULTIVITAMIN ORAL) Take by mouth. oxyCODONE-acetaminophen (PERCOCET) 5-325 mg tablet Take 1 tablet by mouth every 8 hours as needed for pain. No current facility-administered medications for this visit. Physical Exam Vitals: There were no vitals taken for this visit. Psych: Pleasant, good affect and mood General Appearance: Well appearing, alert, in no acute distress, well-hydrated, well nourished.. Skin: Skin color, texture, turgor normal, no suspicious rashes or lesions. Peripheral Pulses: Normal. Neurologic: Gait normal. Reflexes normal and symmetric. Sensation grossly intact.. Lymph Nodes: No cervical lymphadenopathy, No supraclavicular lymphadenopathy, No axillary lymphadenopathy., and No inguinal lymphadenopathy.. Respiratory: No recent pulmonary infection, hemoptysis, chronic cough, or shortness of breath at rest Rheumatologic: Joint deformities: right hip pain Right Hip Exam Right hip exam is normal. Tenderness The patient is experiencing no tenderness. Range of Motion The patient has normal right hip ROM. Muscle Strength Abduction: 4/5 Adduction: 4/5 Flexion: 4/5 Other Erythema: absent Scars: present Sensation: normal Pulse: present Comments: Neg homans bilaterally Left Hip Exam Left hip exam is normal. Tenderness The patient is experiencing no tenderness. Range of Motion The patient has normal left hip ROM. Muscle Strength The patient has normal left hip strength. Other Erythema: absent Sensation: normal Pulse: present Assessment and Plan Radiographs: I have independently reviewed films and my findings are the same. Impression: Encounter Diagnosis ICD-10-CM 1. S/P orthopedic surgery, follow-up exam Z09 2. Trochanteric bursitis of right hip M70.61 3. Iliotibial band syndrome of right side M76.31 Today, in detail, through a thorough evaluation, we discussed possible etiologies of pain and our plans for further diagnostic and therapeutic interventions. We discussed strategies for decreasing pain and improving strength, stability and motion. Patient's questions were answered in detailed. Patient verbalizes understanding and agrees with the treatment plan as discussed. Doing well from postop standpoint 3 months until address contralateral limb Work on strengthening core, hip ER, hs, etc Patient aware and in agreement of plan. All questions answered. Cathryn Morrell D.O., M.P.H.[facility]06-21-2023 History of Present illness Narrative* Cathryn Meng Porsche, DO - 12/28/2022 10:01 AM EDT Images from the original note were not included. Follow Up Visit Chief Complaint Mandi Valente is a 32 year old female who presents today for follow up office visit. Patient presents with: Right Hip - Post Op, Pain History of Present Illness PAIN EVALUATION 12/28/2022 0958 Pain Level: 2 Pain Location: Hip-Right Description: Sore;Aching Duration Amount of Time: -- DOS: 11/08/22 Frequency: Intermittent HPI: Mandi Valente is a 32 year old female for a follow up visit S/P Right hip arthroscopy, itb release, trochanteric bursectomy, scar debridement on 11/11/2022. Patient states she is doing well, complains of some intermittent soreness. She is currently in PT and progressing well. Pain history is noted as above. Denies calf pain, numbness, tingling, fever, chills or other constitutional symptoms. Is there any overall improvement in your condition? Yes, pain Any new injury, since being seen last: No REVIEW OF SYMPTOMS: Patient did not have, and does not currently have, any weight loss, malaise, fever, chills, headache, chest pain, chest pressure, palpitations, cough, shortness of breath, orthopnea, paroxsymal nocturnal dyspnea, nausea, vomiting, diarrhea, constipation, melena, hematochezia, urinary difficulties, prolonged bleeding, easily bruising, heat or cold intolerance, new onset joint pain or swelling, newonset extremity weakness or numbness, new onset auditory or visual disturbances, lightheadedness, dizziness, partial loss of consciousness or full loss of consciousness. Current Outpatient Medications Medication Sig meloxicam (MOBIC) 15 mg tablet Take 15 mg by mouth once daily. multivit-min/iron/folic acid/K (ADULTS MULTIVITAMIN ORAL) Take by mouth. oxyCODONE-acetaminophen (PERCOCET) 5-325 mg tablet Take 1 tablet by mouth every 8 hours as needed for pain. No current facility-administered medications for this visit. Physical Exam Vitals: There were no vitals taken for this visit. Psych: Pleasant, good affect and mood General Appearance: Well appearing, alert, in no acute distress, well-hydrated, well nourished.. Skin: Skin color, texture, turgor normal, no suspicious rashes or lesions. Peripheral Pulses: Normal. Neurologic: Gait normal. Reflexes normal and symmetric. Sensation grossly intact.. Lymph Nodes: No cervical lymphadenopathy, No supraclavicular lymphadenopathy, No axillary lymphadenopathy., and No inguinal lymphadenopathy.. Respiratory: No recent pulmonary infection, hemoptysis, chronic cough, or shortness of breath at rest Rheumatologic: Joint deformities: right hip pain Right Hip Exam Right hip exam is normal. Tenderness The patient is experiencing no tenderness. Range of Motion The patient has normal right hip ROM. Muscle Strength Abduction: 4/5 Adduction: 4/5 Flexion: 4/5 Other Erythema: absent Scars: present Sensation: normal Pulse: present Comments: Neg homans bilaterally Left Hip Exam Left hip exam is normal. Tenderness The patient is experiencing no tenderness. Range of Motion The patient has normal left hip ROM. Muscle Strength The patient has normal left hip strength. Other Erythema: absent Sensation: normal Pulse: present Assessment and Plan Radiographs: I have independently reviewed films and my findings are the same. Impression: Encounter Diagnosis ICD-10-CM 1. S/P orthopedic surgery, follow-up exam Z09 2. Trochanteric bursitis of right hip M70.61 3. Iliotibial band syndrome of right side M76.31 Today, in detail, through a thorough evaluation, we discussed possible etiologies of pain and our plans for further diagnostic and therapeutic interventions. We discussed strategies for decreasing pain and improving strength, stability and motion. Patient's questions were answered in detailed. Patient verbalizes understanding and agrees with the treatment plan as discussed. Doing well from postop standpoint 3 months until address contralateral limb Work on strengthening core, hip ER, hs, etc Patient aware and in agreement of plan. All questions answered. Cathryn Morrell D.O. M.P.H. documented in this encounterGalion [facility]06-01-[address] Pel[facility]o [facility] December 08, 2022 1:33pm Note Date/Time December 08, 2022 9:03a m [facility] Medical Records Department [address] [place] [address] Emergency Department Summary 12/08/22 MR#: [id number] Acct: [id number] Name: MANDI VALENTE Rep #:[id number] 21 : 1990 32 From: Santi Pelayo MD PCP: Dr. Cholo Smith, DO Status:REG ER Location: ED HPI History of Present Illness Chief Complaint: Abscess Informant: patient Narrative Narrative: Patient presents with pain and swelling left side of her nose. Patient states she started with a small pimple on near her nostril on the left on Monday. She was able to squeeze and drain this. She drained it again Monday. She then saw her primary physician's office a couple days ago. She was placed on doxycycline. She has had 3 tablets. She states it is more swollen and more tender this morning. She does not have fevers chills sweats nausea or vomiting. No significant chronic medical problems. No diabetes. No historyof immune issues. No trouble swallowing. No headache. [facility] Medical History Allergic dermatitis Anal fissure Chronic constipation Constipation Constipation External hemorrhoids History of steroid therapy Lymphocytic colitis Non-smoker (spontaneous vaginal delivery) Home Medications vitamin B12 1 mg-folic acid 0.8 mg tablet 1 tab PO DAILY 02/23/21 [History Last Taken 04/28/21] multivitamin 1 tab PO DAILY 07/26/21 [History Last Taken Unknown] phentermine 37.5 mg tablet 37.5 mg PO 07/26/21 [History Last Taken Unknown] topiramate 25 mg tablet tablet PO 09/01/21 [History Last Taken Unknown] azithromycin 250 mg tablet See Rx Instructions PO .COMPLEX #6 tabs 10/08/22 [Rx Last Taken Unknown] lubiprostone 24 mcg capsule (Amitiza) 24 mcg PO BID #60 caps 10/08/22 [Rx Last Taken Unknown] cephalexin 500 mg capsule 500 mg PO Q6 #40 CAPSULES 12/08/22 [Rx Last Taken Unknown] ondansetron 4 mg disintegrating tablet 4 mg PO Q8H PRN PRN Nausea #10 tabs 12/08/22 [Rx Last Taken Unknown] oxycodone-acetaminophen 5 mg-325 mg tablet 1 tab PO Q6H PRN PRN Pain 3 days #12 TABLETS 12/08/22 [Rx Last Taken Unknown] Allergy/AdvReac Type Severity Reaction Status Date / Time No Known Allergies Allergy Verified 12/08/22 08:41 Family History Mother Arthritis Hypertension Father Arthritis Hypertension Aunt Breast cancer Grandfather Heart disease Kidney disease Brother Hypertension Sister Hypertension Surgical History History of hemorrhoidectomy (~05/2018) History of tonsillectomy Hx of dilation and curettage Hx of umbilical hernia repair Social History Smoking Status: Never smoker alcohol intake: never substance use type: does not use ROS ROS ED Constitutional Constitutional ED: Denies chills, fever(s) or sweats Eyes Eyes: Denies blurry vision, change in vision or diplopia ENT ENT ED: Reports other Details: See history of present illness ; Denies sore throat Cardiovascular Cardiovascular: Denies chest pain Respiratory/Chest Respiratory/Chest: Denies cough or dyspnea Gastrointestinal Gastrointestinal: Denies nausea or vomiting Musculoskeletal Musculoskeletal: Denies myalgias Integumentary Reports abscess Neurologic Neurologic: Denies headache(s), paresthesias or weakness Endocrine Endocrinology: Denies polydipsia or polyuria Allergic/Immunologic Allergic/Immunologic ED: Denies mouth swelling or tongue swelling EXAM Physical Exam Narrative Exam Narrative: Patient awake alert no acute distress sitting comfortably in the bed. HEENT does show some swelling of the lower aspect of the nostril on the left in the upper left below it. Inside the lip I am was feel fullness but I cannot seeany area that is draining or easily drained. There is mild erythema just below the nostril but does not extend to the face. The teeth are nontender. No sinustenderness. No swelling higher up in the nose or eyelids. This does appear to have some fluctuance at the base of the nostril on the left. Right is unaffected. Exam is consistent with what appears to be an abscess. Neck shows no lymphadenopathy Heart is regular Lungs are clear bilaterally and saturations are normal at 100% on room air Skin shows no other diffuse rash. Const Vital Signs: 12/08/22 08:41 12/08/22 11:00 Temperature 97 F L 98.6 F Temperature Source Temporal Temporal Pulse Rate 86 69 Respiratory Rate 14 16 Blood Pressure 150/90 H 132/91 H Blood Pressure Mean 110 104 Pulse Ox 100 100 Oxygen Delivery Method Room Air Room Air MDM MDM MDM Narrative Medical decision making narrative: Patient was seen just before a very large number of patients came into the ED. It is stayed extremely busy today. I have had multiple critical patients in ICUadmits. Because of this it is taken a while to get back to her. I did place some 4% lidocaine in the nose to try to get good local anesthesia. We ended up using a small amount of local lidocaine. We used 11 blade to try to puncture the area but were not able to get back any purulent material. I do not want to go further in as I think I can do more damage than benefit. Patient also statesthat it hurts a fair amount. We explained that this may all be cellulitic changes. We looked up our antibiotics sensitivities. Doxycycline does have good MRSA coverage I will add Keflex for further coverage of MSSA and strep. Lorena get her meds for pain. She can take Percocet but it causes nausea so I will write for Zofran. I explained that if she gets more swelling, fevers chills vomiting trouble swallowing or pain she may need to come back but at thispoint she is only taken 3 doses of antibiotics. This is not failure of antibiotic therapy. She is overall healthy with no immunosuppression or diabetes and should do well as an outpatient. Discharge Plan Triage Chief Complaint: Abscess ED Provider: Santi Pelayo Dx/Rx/DC Orders Clinical Impression: Cellulitis of face Instructions: ED Cellulitis, Facial Prescriptions: New oxycodone-acetaminophen [oxycodone-acetaminophen] 5-325 mg tablet 1 tab PO Q6H PRN PRN (Reason: Pain) 3 Days Qty: 12 0RF cephalexin [cephalexin] 500 mg capsule 500 mg PO Q6 Qty: 40 0RF ondansetron [ondansetron] 4 mg tablet,disintegrating 4 mg PO Q8H PRN PRN (Reason: Nausea) Qty: 10 0RF No Action multivitamin Tablet 1 tab PO DAILY phentermine 37.5 mg tablet 37.5 mg PO Label Comments: TAKE 1 TABLET BY MOUTH ONCE DAILY topiramate 25 mg tablet PO lubiprostone [Amitiza] 24 mcg capsule 24 mcg PO BID Qty: 60 0RF azithromycin 250 mg tablet See Rx Instructions PO .COMPLEX Qty: 6 0RF Rx Instructions: take 500 mg today (day 1), then 250 mg for 4 days (days 2-5) PO vitamin [id number] acid 1-0.8 mg Tablet 1 tab PO DAILY Primary Care Provider: Cholo Smith Referrals: Cholo Smith DO [Primary Care Provider] - 2 Days for wound check Disposition Disposition: Home, Self Care What to do if you have Problems For any increased pain, shortness of breath, bleeding, nausea or vomiting, chestpain, or any unexpected problems, contact your Primary Care Provider. Call [facility] ([phone]) or report to the closest Emergency Room. Call 911 if necessary. 12/08/22 1333 <Electronically signed by Santi Pelayo MD> Cosigner Signature (if applicable): CC: Dr. Cholo Smith DO ~ Signed [facility] Work Phone: [phone]) 562-942605-15-2023 NoteHNO ID: [id number] Author: Pierre Hicks PA-C Service: ? Author Type: Physician Bond Clerk Type: Progress Notes Filed: 11/21/2022 10:28 AM Note Text: POST OP Ms. Valente presents today for her 10-14 day visit from: S/P right hip arthroscopy, ITB release, trochanteric bursectomy and scar debridement with Dr. Morrell on 11/08/2022. Post Op and Pain of the Right Hip History: PAIN EVALUATION 11/20/2022 1311 11/21/2022 1002 Pain Level: 2 1 Pain Location: Leg-Right Hip-Right Description: Surgical/Not Incision Aching;Sore Duration Amount of Time: -- -- DOS: 11/08/22 Frequency: Intermittent Intermittent Intervention/Comfort measure: -- -- ice, percocet She is doing well postoperatively. Patients rates her condition as improving. The patient denies warmth, discharge, drainage, fevers, chills, sweats. She reports compliance with dressing/wound care. She is not using any ambulatory devices. She is requesting RTW date of 11/28/22. She reports no change in past medical AND surgical history, medications, allergies, social history, family history and review of systems since last visit, with the exception of the following: None Review of Systems All other systems reviewed and are negative. Radiographs: Not applicable Physical Examination: RLE: Appropriate postop appearance No evidence of erythema, warmth, discharge or drainage Incisions are clean/dry/intact Gait WNL No tenderness about the hip no tenderness about the greater trochanter Hip ROM: pain free Distally SILT S/S/SP/DP/T intact at baseline Positive EHL, FHL, AT, GS, Quads, and HS Positive distal pulses Negative Clarissa's, calf tenderness or palpable cords PROCEDURE: Not applicable Assessment/Plan: S/P right hip arthroscopy, ITB release, trochanteric bursectomy and scar debridement at normal post-operative stage of recovery. WBAT RLE Begin outpatient PT Post op care discussed, all questions answered Follow up in 4 weeks with [facility]05[facility]23 Miscellaneous Notes* Telephone Encounter - Rhonda Sow RN - 11/09/2022 2:34 PM EDT Spoke with pt regarding post-op appointment. Stated she thought Dr. Morrell would want to see her since she was a unique case. Told pt that it's her protocol to see the PA's on the first post-op visit. Pt stated she is fine with that if that's what Dr. Morrell recommends and will keep appointment. Also stated that her incision is bleeding through bandages when she stands. Spoke with Dr. Morrell, stated that the bleeding is normal. If it persists for more than 3 days,have pt call us. Called pt back to relay message. Pt verbalized understanding. * Telephone Encounter - Avery Armando - 11/09/2022 1:54 PM EDT Patient had surgery yesterday, November 08, 2022 Currently scheduled for her first post op on November She is requesting to see Dr. Morrell for the post op appointment Please advise If you have questions, patient can be reached at [phone] [facility] NoteHNO ID: [id number] Author: Xochitl Conti APRN.CRNA Service: Anesthesiology Author Type: Nurse Window Display Designer Type: Anesthesia Procedure Notes Filed: 11/08/2022 11:43 AM Note Text: ANESTHESIOLOGY PROCEDURE NOTE Airway General Information Procedure Start Time/Medication Administration: 11/08/2022 11:18 AM Patient location during procedure: OR Timeout Performed Pre-procedure: timeout performed Consent Obtained: Yes 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 Author Type: Physician Type: Progress Notes Filed: 11/08/2022 2:02 PM Note Text: Follow Up Visit Chief Complaint Mandi Valente is a 31 year old female who presents today for follow up office visit. Patient presents with: Right Hip - Pre-Op Visit, Established Patient History of Present Illness PAIN EVALUATION 11/02/2022 0234 Pain Level: 4 Pain Location: Hip-Right Description: Burning;Radiating;Throbbing Duration Amount of Time: 2 Frequency: Intermittent Intervention/Comfort measure: Medication;Reposition;Positioning HPI: Mandi Valente is a 31 year old female for a follow up visit Right hip pre-op with additional questions. Pain history is noted as above. Denies calf pain, numbness, tingling, fever, chills or other constitutional symptoms. Is there any overall improvement in your condition? No Any new injury, since being seen last: No REVIEW OF SYMPTOMS: Patient did not have, and does not currently have, any weight loss, malaise, fever, chills, headache, chest pain, chest pressure, palpitations, cough, shortness of breath, orthopnea, paroxsymal nocturnal dyspnea, nausea, vomiting, diarrhea, constipation, melena, hematochezia, urinary difficulties, prolonged bleeding, easily bruising, heat or cold intolerance, new onset joint pain or swelling, new onset extremity weakness or numbness, new onset auditory or visual disturbances, lightheadedness, dizziness, partial loss of consciousness or full loss of consciousness. No current facility-administered medications for this visit. Current Outpatient Medications Medication Sig - oxyCODONE-acetaminophen (PERCOCET) 5-325 mg tablet Take 1 tablet by mouth every 8 hours as needed for pain. Facility-Administered Medications Ordered in Other Visits Medication Dose Route Frequency - albuterol 2.5 mg /3 mL (0.083 %) 2.5 mg (PROVENTIL) 2.5 mg INHALATION ONCE - lactated ringers iv infusion 5-30 mL/hr INTRAVENOUS CONTINUOUS - fentaNYL 50 mcg/mL 50 mcg injection (SUBLIMAZE) 50 mcg INTRAVENOUS q 10 MIN PRN - HYDROmorphone 1 mg injection (DILAUDID) 1 mg INTRAVENOUS DIRECTED PRN - HYDROcodone 5 mg - acetaminophen 325 mg tablet (NORCO) 1 tablet ORAL PRN - prochlorperazine 10 mg injection (COMPAZINE) 10 mg INTRAVENOUS q 6 H PRN - metoclopramide HCl 10 mg tab(s) (REGLAN) 10 mg ORAL ONCE Or - metoclopramide HCl 10 mg injection (REGLAN) 10 mg INTRAVENOUS ONCE - diphenhydrAMINE 25 mg injection (BENADRYL) 25 mg INTRAVENOUS q 4 H PRN - meperidine (PF) 12.5 mg injection (DEMEROL) 12.5 mg INTRAVENOUS PRN Physical Exam Vitals: There were no vitals taken for this visit. Psych: Pleasant, good affect and mood General Appearance: Well appearing, alert, in no acute distress, well-hydrated, well nourished.. Skin: Skin color, texture, turgor normal, no suspicious rashes or lesions. Peripheral Pulses: Normal. Neurologic: Gait normal. Reflexes normal and symmetric. Sensation grossly intact.. Lymph Nodes: No cervical lymphadenopathy, No supraclavicular lymphadenopathy, No axillary lymphadenopathy., and No inguinal lymphadenopathy.. Respiratory: No recent pulmonary infection, hemoptysis, chronic cough, or shortness of breath at rest Rheumatologic: Joint deformities: right hip lateral pain Right Knee Exam Right knee exam is normal. Muscle Strength The patient has normal right knee strength. Tenderness The patient is experiencing no tenderness. Range of Motion Extension: normal Flexion: normal Tests Hieu: Anterior - negative Posterior - negative Drawer: Anterior - negative Posterior - negative Other Erythema: absent Sensation: normal Pulse: present Swelling: none Left Knee Exam Left knee exam is normal. Muscle Strength The patient has normal left knee strength. Tenderness The patient is experiencing no tenderness. Range of Motion Extension: normal Flexion: normal Tests Hieu: Anterior - negative Posterior - negative Drawer: Anterior - negative Posterior - negative Other Erythema: absent Sensation: normal Pulse: present Swelling: none Comments: Neg homans bilaterally Assessment and Plan Radiographs: I have independently reviewed films and my findings are the same. and I have reviewed the images with the patient and family. Impression: Encounter Diagnosis ICD-10-CM 1. Trochanteric bursitis of right hip M70.61 2. Iliotibial band syndrome of right side M76.31 Today, in detail, through a thorough evaluation, we discussed possible etiologies of pain and our plans for further diagnostic and therapeutic interventions. We discussed strategies for decreasing pain and improving strength, stability and motion. Patient's questions were answered in detailed. Patient verbalizes understanding and agrees with the treatment plan as discussed. Risks and benefits vs alternatives to treatment were discussed with (more content not included)...[facility]04-26-2023 History of Present illness Narrative* Cathryn Morrell, DO - 11/02/2022 2:11 PM EDT Images from the original note were not included. Follow Up Visit Chief Complaint Mandi Valente is a 31 year old female who presents today for follow up office visit. Patient presents with: Right Hip - Pre-Op Visit, Established Patient History of Present Illness PAIN EVALUATION 11/02/2022 0234 Pain Level: 4 Pain Location: Hip-Right Description: Burning;Radiating;Throbbing Duration Amount of Time: 2 Frequency: Intermittent Intervention/Comfort measure: Medication;Reposition;Positioning HPI: Mandi Valente is a 31 year old female for a follow up visit Right hip pre- op with additional questions. Pain history is noted as above. Denies calf pain, numbness, tingling, fever, chills or other constitutional symptoms. Is there any overall improvement in your condition? No Any new injury, since being seen last: No REVIEW OF SYMPTOMS: Patient did not have, and does not currently have, any weight loss, malaise, fever, chills, headache, chest pain, chest pressure, palpitations, cough, shortness of breath, orthopnea, paroxsymal nocturnal dyspnea, nausea, vomiting, diarrhea, constipation, melena, hematochezia, urinary difficulties, prolonged bleeding, easily bruising, heat or cold intolerance, new onset joint pain or swelling, newonset extremity weakness or numbness, new onset auditory or visual disturbances, lightheadedness, dizziness, partial loss of consciousness or full loss of consciousness. No current facility-administered medications for this visit. Current Outpatient Medications Medication Sig oxyCODONE-acetaminophen (PERCOCET) 5-325 mg tablet Take 1 tablet by mouth every 8 hours as needed for pain. Facility-Administered Medications Ordered in Other Visits Medication Dose Route Frequency albuterol 2.5 mg /3 mL (0.083 %) 2.5 mg (PROVENTIL) 2.5 mg INHALATION ONCE lactated ringers iv infusion 5-30 mL/hr INTRAVENOUS CONTINUOUS fentaNYL 50 mcg/mL 50 mcg injection (SUBLIMAZE) 50 mcg INTRAVENOUS q 10 MIN PRN HYDROmorphone 1 mg injection (DILAUDID) 1 mg INTRAVENOUS DIRECTED PRN HYDROcodone 5 mg - acetaminophen 325 mg tablet (NORCO) 1 tablet ORAL PRN prochlorperazine 10 mg injection (COMPAZINE) 10 mg INTRAVENOUS q 6 H PRN metoclopramide HCl 10 mg tab(s) (REGLAN) 10 mg ORAL ONCE Or metoclopramide HCl 10 mg injection (REGLAN) 10 mg INTRAVENOUS ONCE diphenhydrAMINE 25 mg injection (BENADRYL) 25 mg INTRAVENOUS q 4 H PRN meperidine (PF) 12.5 mg injection (DEMEROL) 12.5 mg INTRAVENOUS PRN Physical Exam Vitals: There were no vitals taken for this visit. Psych: Pleasant, good affect and mood General Appearance: Well appearing, alert, in no acute distress, well-hydrated, well nourished.. Skin: Skin color, texture, turgor normal, no suspicious rashes or lesions. Peripheral Pulses: Normal. Neurologic: Gait normal. Reflexes normal and symmetric. Sensation grossly intact.. Lymph Nodes: No cervical lymphadenopathy, No supraclavicular lymphadenopathy, No axillary lymphadenopathy., and No inguinal lymphadenopathy.. Respiratory: No recent pulmonary infection, hemoptysis, chronic cough, or shortness of breath at rest Rheumatologic: Joint deformities: right hip lateral pain Right Knee Exam Right knee exam is normal. Muscle Strength The patient has normal right knee strength. Tenderness The patient is experiencing no tenderness. Range of Motion Extension: normal Flexion: normal Tests Hieu: Anterior - negative Posterior - negative Drawer: Anterior - negative Posterior - negative Other Erythema: absent Sensation: normal Pulse: present Swelling: none Left Knee Exam Left knee exam is normal. Muscle Strength The patient has normal left knee strength. Tenderness The patient is experiencing no tenderness. Range of Motion Extension: normal Flexion: normal Tests Hieu: Anterior - negative Posterior - negative Drawer: Anterior - negative Posterior - negative Other Erythema: absent Sensation: normal Pulse: present Swelling: none Comments: Neg homans bilaterally Assessment and Plan Radiographs: I have independently reviewed films and my findings are the same. and I have reviewed the images with the patient and family. Impression: Encounter Diagnosis ICD-10-CM 1. Trochanteric bursitis of right hip M70.61 2. Iliotibial band syndrome of right side M76.31 Today, in detail, through a thorough evaluation, we discussed possible etiologies of pain and our plans for further diagnostic and therapeutic interventions. We discussed strategies for decreasing pain and improving strength, stability and motion. Patient's questions were answered in detailed. Patient verbalizes understanding and agrees with the treatment plan as discussed. Risks and benefits vs alternatives to treatment were discussed with patient. Risks including but not limited to blood loss, blood clot, infection, neurovascular injury, failure of procedure, need forrevision operation, loss of life and loss of limb. Patient aware of risks and benefits and agrees to proceed with written consent for surgical intervention. [facility] History and physical note * Stefany De La Torre PA-C - 10/28/2022 11:20 AM EDT HISTORY AND PHYSICAL EXAMINATION SERVICE DATE: 10/28/2022 SERVICE TIME: 11:37 AM PRIMARY CARE PHYSICIAN: J Luis Nino (Historic) Indira REASON FOR VISIT: Mandi Valente is a 31 year old female who is scheduled for EXCISION TROCHANTERIC BURSA OR CALCIFICATION at the request of Dr. Cathryn Morrell for consultation. My final recommendation will be communicated back to the requesting physician by way of shared medical record or letter. The patient has the following: ACTIVE PROBLEM LIST Unspecified Hemorrhoids Without Mention of Complication Melanocytic Nevus of trunk: recurrent nevi of R upper mid chest, L buttock, upper mid back Atypical nevus of multiple sites of trunk: chest, back, buttock Surgical Scars Hypertrophic scars of skin Class 1 Obesity Due to Excess Calories Without Serious Comorbidity With Body Mass Index (Bmi) of 31.0 to 31.9 in Adult Subjective CHIEF COMPLAINT: right hip pain HPI: pt is a 31 year old female with continued right hip pain. PAST MEDICAL HISTORY Diagnosis Date Unspecified hemorrhoids without mention of complication PAST SURGICAL HISTORY Procedure Laterality Date REM LESIO TRUNK,ARM,LEG 1.1 -2.0CM 09/20/2010 Exc. left medial buttock skin lesion REM LESION TRUNK,ARM,LEG 0.6 -1.0CM 10/11/2010 Exc. skin lesions x 3 REPAIR EPIGASTRIC HERNIA,REDUC 2020 TONSILLECTOMY & ADENOIDECTOMY <AGE 10 2017 FAMILY HISTORY Problem Relation Age of Onset None Mother fibromyalgia., hypertension Hypertension Father Hypertension Sister Hypertension Brother SOCIAL HISTORY: Social History Tobacco Use Smoking status: Never Smokeless tobacco: Never Vaping Use Vaping Use: Never used Substance Use Topics Alcohol use: No Drug use: Never Prior to Admission medications as of 10/28/22 1111 Medication Sig Last Dose Taking meloxicam (MOBIC) 15 mg tablet Take 15 mg by mouth once daily. Taking Yes multivit-min/iron/folic acid/K (ADULTS MULTIVITAMIN ORAL) Take by mouth. Taking Yes oxyCODONE-acetaminophen (PERCOCET) 5-325 mg tablet Take 1 tablet by mouth every 6 hours as needed for pain. ondansetron (ZOFRAN) 4 mg tablet Take 1 tablet by mouth every 8 hours as needed for nausea/vomiting. No medication comments found. ALLERGIES No Known Allergies COVID VACCINATION STATUS: Fully vaccinated REVIEW OF SYSTEMS: PAIN ASSESSMENT: Pain Pain Level: 4 Pain Location: Hip-Right Description: Throbbing, Burning, Radiating Duration Amount of Time: 2.5 Duration Units: Years Frequency: Continuous General: No weight loss, malaise or fevers. Neuro: No history of TIA's, stroke, VOCATIONAL REHABILITATION SUPERVISOR tumor, impaired sensorium, hemiplegia, paraplegia or quadraplegia. No neurological symptoms or problems. Respiratory: No history of current cough or dyspnea, or pneumonia in the past 6 weeks. No history of respiratory/pulmonary symptoms or problems. Cardiovascular: No history of HTN requiring medication, no history of angina, CHF, OH, cardiac surgery or stents. Denies rest pain, gangrene or revascularization/amputation for PVD. No history of cardiovascular symptoms or problems. GI: No history of GI symptoms or problems. No history of esophageal varices, recent ascites, or ETOH greater than 2 drinks per day. 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 : Denies, No LMP recorded. Endocrine: No history of diabetes. Has not taken steroids within the past 30 days. No history of endocrinological symptoms or problems. Hematology: No history of bleeding or clotting disorder. Pt is not taking anti- coagulation or platelet medications. No history of hematological symptoms or problems. Oncology: No history of CA metastasis, chemo within 30 days, or radiotherapy within 90 days. Has not lost 10% of body wt in 6 months. No history of oncological symptoms or problems. Psych: No history of psychiatric symptoms or problems. Musculoskeletal: See HPI Skin: Negative for lesions, rash and itching. Objective PHYSICAL EXAM: VITALS: BP 138/84 Pulse 79 Temp (Src) 97.8 (Temporal) Resp 16 Ht 5' 2 (1.58m) Wt 173 lb (78.5kg) SpO2 99% BMI 31.63 kg/(m^2). General: Alert and oriented, No acute distress, Healthy appearance Skin: Normal color, no rash, no lesions. HEENT: EOM, pupils equal, round and reactive. Cardiovascular: Normal S1 & S2, no rubs, murmurs or gallops. No JVD. Pulse regular. Lungs: Normal breath sounds, no wheezes or crackles. Extremities: No deformity, no edema or tenderness, no joint swelling or clubbing. Neurological: Normal cognition and motor skills. Pulses: Carotid and radial pulses normal +2. Diagnostic tests reviewed for today's visit: No new labs or tests Assessment/Plan Assessment: There is no known pertinent medical condition which may affect marko- operative course METS: Walk indoors, such as around the house (1.75 METs) Do light work around the house, such as dusting or washing dishes (2.70 METs) Take care of self; that is eating, dressing, bathing, using the toilet (2.75 METs) Walk a block or two on level ground (2.75 METs) Do moderate work around the house such as vacuuming, sweeping floors, or carrying in groceries (3.50 METs) Do yardwork, such as raking leaves, weeding,or pushing a power mower (4.50 METs) Climb a flight of stairs or walk up a hill (5.50 METs) Patient denies any chest pain or undue shortness of breath with the above physical activity. ASA Class: 1 ANESTHESIA FINDINGS: Intubation History: No history of difficult intubation Significant Anesthesia Considerations: None Airway Exam: General: Normal appearance Mallampati Score is CLASS II ULBT: Class I - Lower incisors can bite the upper lip above the chris line Neck: Normal appearance and function, Distance from hyoid to mentum during neck extension is at least 3 finger breaths Mouth: Normal tongue size and Mouth opening greater than 2 finger breaths Dentition: Intact Airway History: No abnormal airway history Sleep Apnea Probability Snores loudly: No Tired, fatigued or sleepy in daytime: Yes Stops breathing or choking/gasping during sleep: No High blood pressure: No Sleep Apnea Probability Score 10/23/2022 02/07/2022 Sleep Apnea Screen V2 8 (Sleep study not recommended) 1 (Sleep study not recommended) PLAN This patient is optimally prepared for surgery. CONSULTS: Patient does not require consults for optimization at this time. The Following Tests/Procedures Have Been Initiated: Labs not indicated per [facility] protocol, EKG not indicated per [facility] protocol Planned Anesthetic: Per anesthesia choice Instructions Given to Patient: Instructions located in the after visit summary. Patient given verbal and written preop instructions and voices comprehension and compliance. SIGNATURE: Stefany De La Torre PA-C PATIENT NAME: Mandi Valente DATE: October 28, 2022 TIME: 8:32 AM documented [facility] Instructions* Patient Instructions* Stefany De La Torre PA-C - 10/28/2022 8:33 AM EDT PATIENT PREOPERATIVE INSTRUCTIONS Cathryn Morrell,* has scheduled you for your procedure at this surgery center: [facility]: [phone] -- [address] [facility] [address]. Please read below carefully for your personalized instructions. Dietary Restrictions: - No solid food after midnight. - You may have 12 ounces of clear liquids (water, clear juices such as apple juice or gatorade, carbonated beverages, clear tea, black coffee, jello) until 2 hours before scheduled arrival at facility. Medications: Unless instructed differently below, stay on all of your medications until your surgery. Approved medications to take the morning of surgery with a sip of water: NONE If you start any new medications after today's visit, please contact the surgeon's office. Blood Thinning Medications: - Stop NSAIDS (Ibuprofen, Advil, Aleve, Motrin, Celebrex, Mobic, etc.) 7 days before surgery, as directed by your surgeon. - Stop Aspirin 7 days before surgery, as directed by your surgeon. - Stop Vitamin E, ALL multi-vitamins, herbals and dietary supplements 7 days before surgery. - You may take Tylenol (Acetaminophen) or any of your pain medications that do not contain aspirin or NSAIDS as needed. Important Reminders:- Candy, mints, and tobacco products are NOT permitted the morning of surgery. - Hearing aids, dentures and glasses may be worn the morning of surgery. - NO jewelry, body piercings, makeup, hairpins or contacts are to be worn the day of surgery. If you develop symptoms such as a fever, cold, or flu, or have other changes to your health within TWO DAYS of scheduled surgery or the morning of surgery, please contact the surgery center above. Personal Belongings: -Please have photo ID and insurance cards. -If you do not have a copy of advance directives on file with us, please bring a copy with you on the day of surgery. - Leave ALL valuables and money at home or with family members. For Outpatient Procedures: - YOU MUST HAVE A RESPONSIBLE WIRE INSPECTOR TAKE YOU HOME. A PRODUCTION SUPERVISOR TRAINEE OR CERTIFIED ADDICTION COUNSELOR CANNOT BE MADE A RESPONSIBLE WIRE INSPECTOR. - We recommend that a responsible person stays with you overnight to take care of you. - You cannot stay in a hotel alone after outpatient surgery. You will not be permitted to have yoursurgery, if you do not have someone to take care of you. Arrival Time for Surgery: - The Surgery Center or hospital where you are having surgery will call the afternoon before surgery (or Monday for Monday surgery) with a scheduled arrival time. - If you have not heard by 4 pm, please contact the surgery center above. Please be aware that emergency situations arise, which may delay or change your surgical time. If this happens, we will notify you as soon as possible and regret any inconvenience. If you already have an Advance Directive, please fax a copy to [phone] or email to for it to be added to your chart. If you do not have an Advance Directive, you can find the appropriate form and more information at [email or web address]. We recommend that youcomplete the Advance Directive form found on the website and bring it with you the day of your surgery. It can be witnessed and scanned into your chart that day. Stefany De La Torre PA-C documented in this encounterGal[facility]03-27-[facility]23 Discharge summary Author Hodan Ling [facility] October 03, 2022 7:20am Note Date/Time October 03, 2022 7:2 0am [facility] Physical Therapy Health[address] [place] [address] / REHABILITATION SERVICES DISCHARGE SUMMARY MR#: [id number] Acct: [id number] Name: MANDI VALENTE Rep #: [id number] : 1990 31 From: Hodan MASON T Referring Dr.: Dr. Cathryn Morrell DO S tatus: REG RCR Insurance: [employer] It has been my pleasure to treat MANDI VALENTE referred by Dr. Cathryn Morrell DO, with the diagnosis of Right Hip Sx for a total of 11 visit(s). Discharge Date: Please see the following information for a summary of their discharge status. Subjective: Patient reports that she is having an MRI tomorrow- they plan to do another surgery if she needs one- she goes back to see Dr. Limon after the MRI. S/S are back what they were prior to the injections. Laying on both sides is terrible and it throbs on the right LE. Even is she is not working its now throbbing. Right lateral hip Pain Intensity (Out of 10): 3 % Improvement: 0 Objective/Function: Posture: FH, RS- can correct but does not maintain. Gait: mild trunk sway but decreased translation HR/TR: able. SLS: 15 sec with mild pelvic translation when standing on right LE and reports pain. ROM: WFL in all planes. Strength: Core: fair, Hip: 4/5 throughout with discomfort in testing glut med in clam position- Knee: 4+/5, Ankle: 5/5. Flex: HS: mild, Gastroc: mild Goal 1:: Patient will be I with HEP and progression Goal Progress: Goal Met Goal 2:: Patient will SLS without increased pelvic translation for 15 sec Goal Progress: Not Progressing Goal 3:: Patient will maintain proper posture t/o tx session to demo increased core s/s Goal Progress: Not Progressing Goal 4:: Patient will report 80% improvement Goal Progress: Not Progressing Plan: Return to MD for further evaluation If there are questions or concerns regarding this patient's physical therapy, please feel free to call me at [phone]. Thank you for the referral of thispatient. Sincerely, Hodan Ling DPT Balance/Gait/Functional tests - Balance/Special Test Scores Lower Extremity Functional Score: 61 <Electronically signed by Hodan Ling DPT> 10/03/22 0720 CC: Dr. Cathryn Morrell DO; Dr. Cholo Smith DO ~ ELR Signed [facility] Work Phone: [phone]) 171-289003-10-2023 NoteHNO ID: [id number] Author: Cathryn Morrell, DO Service: ? Author Type: Physician Type: Progress Notes Filed: 09/27/2022 2:02 PM Note Text: VIRTUAL VISIT PROGRESS NOTE This is a virtual visit using Oonyt video visit. It required patient-provider interaction for the medical decision making as documented below. Mandi Valente is a 31 year old female seen for right hip mri follow up. Still paulino, painful, difficulty laying on sides. HISTORY REVIEWED (electronic chart updated): PAST MEDICAL HISTORY Diagnosis Date Unspecified hemorrhoids without mention of complication PAST SURGICAL HISTORY Procedure Laterality Date REM LESIO TRUNK,ARM,LEG 1.1 -2.0CM 09/20/2010 Exc. left medial buttock skin lesion REM LESION TRUNK,ARM,LEG 0.6 -1.0CM 10/11/2010 Exc. skin lesions x 3 REPAIR EPIGASTRIC HERNIA,REDUC 2020 TONSILLECTOMY AND ADENOIDECTOMY FAMILY HISTORY Problem Relation Age of Onset None Mother fibromyalgia., hypertension Hypertension Father Hypertension Sister Hypertension Brother Social History Tobacco Use Smoking status: Never Smokeless tobacco: Never Vaping Use Vaping Use: Never used Substance Use Topics Alcohol use: No Drug use: Never Current Outpatient Medications Medication Sig meloxicam (MOBIC) 15 mg tablet Take 15 mg by mouth once daily. oxyCODONE-acetaminophen (PERCOCET) 5-325 mg tablet Take 1 tablet by mouth every 6 hours as needed for pain. ondansetron (ZOFRAN) 4 mg tablet Take 1 tablet by mouth every 8 hours as needed for nausea/vomiting. multivit-min/iron/folic acid/K (ADULTS MULTIVITAMIN ORAL) Take by mouth. No current facility-administered medications for this visit. ALLERGIES No Known Allergies REVIEW OF SYSTEMS: All other ROS: negative As noted in HPI PHYSICAL EXAMINATION: VIDEO EXAM: (if completed, performed via video enabled technology) No exam performed ASSESSMENT: (M70.61) Trochanteric bursitis of right hip (primary encounter diagnosis) (M76.31) Iliotibial band syndrome of right side Last MRI Knee - Impression Only No resulted procedures found. FINDINGS: Small bilateral hip effusions. Normal acetabulum. Normal labrum. Normal femoral head. Normal femoral neck and intratrochanteric region. Normal gluteus minimus, medius and iliopsoas tendons and distal insertions. Minimal left greater trochanteric bursitis (coronal series 5 image 13). Worsening of the right greater trochanteric bursitis with distention of the greater trochanteric bursa and soft tissue edema (coronal series 5 images 12-18 axial series 6 images 15-20). Normal superior and inferior pubic rami. Normal pubic symphysis. Normal ischial tuberosity. Normal origin of the hamstring tendons. Normal visualized iliac wing, sacroiliac joint, and sacral ala. Stable cystic structure projected over the right adnexa compatible with ovarian cyst measuring 4.5 cm (coronal series 5 images 12-19). MRI/Lower Ext Joint Only (Routine) IMPRESSION: Minimal left greater trochanteric bursitis. Worsening/progression of right greater trochanteric bursitis as described. Stable probable right ovarian cyst. No aggressive features. However, further evaluation of this finding may be performed by ultrasound, if clinical symptoms are suspicious for pelvic pathology. Small bilateral hip joint effusions. Electronically Signed: Mateo Aldana, at 10:11 EST , [facility] images PLAN: There are no Patient Instructions on file for this visit. I spent a total of 20 minutes on the date of the service which included preparing to see the patient, [id number] patient care, completing clinical documentation, obtaining and/or reviewing separately obtained history, counseling and educating the patient/family/caregiver, ordering medications, tests, or procedures, independently interpreting results (not separately reported), communicating results to the patient/family/caregiver, and care coordination (not separately reported) Risks and benefits vs alternatives to treatment were discussed with patient. Risks including but not limited to blood loss, blood clot, infection, neurovascular injury, failure of procedure, need for revision operation, loss of life and loss of limb. Patient aware of risks and benefits and agrees to proceed with proceeding for revision hip evaluation. MRI also c/w postop changes but will assess intraop. Cathryn Morrell, DO I have communicated my name and active licensure. The patient's identity and physical location were verified at the time of this visit. Either the patient or their legal customer contact representative has been informed of the risks and benefits of -- and alternatives to -- treatment through a remote evaluation and consents to proceed with the evaluation shazia (more content not included)...[facility]03-06-2023 Miscellaneous Notes* Telephone Encounter - Brionna Mendez - 09/12/2022 1:59 PM EST Patient is scheduled. documented in this encounterGal[facility]02-09-[facility]23 NoteHNO ID: [id number] Author: Cathryn Morrell DO Service: ? Author Type: Physician Type: Progress Notes Filed: 08/18/2022 10:56 AM Note Text: Follow Up Visit Chief Complaint Mandi Valente is a 31 year old female who presents today for follow up office visit. Patient presents with: Right Hip - Established Patient, Follow Up History of Present Illness PAIN EVALUATION 08/16/2022 1448 08/18/2022 1033 Pain Level: 4 4 Pain Location: Hip-Right Hip-Right Description: Radiating;Sore;Throbbing Burning Duration Amount of Time: 2 2 Duration Units: -- Weeks Frequency: Continuous Intermittent Intervention/Comfort measure: Medication Medication;Cold;Other: See comment Comments: Burning pain injections, meloxicam, tylenol, PT HPI: Mandi Valente is a 31 year old female for a follow up visit 6 weeks post injections for R hip trochanteric bursitis and IT band syndrome. Pt states the injections helped for about three weeks where she experienced no pain at all, but in the last couple weeks the pain has returned. Pain history is noted as above. Is there any overall improvement in your condition? No Any new injury, since being seen last: No REVIEW OF SYMPTOMS: Patient did not have, and does not currently have, any weight loss, malaise, fever, chills, headache, chest pain, chest pressure, palpitations, cough, shortness of breath, orthopnea, paroxsymal nocturnal dyspnea, nausea, vomiting, diarrhea, constipation, melena, hematochezia, urinary difficulties, prolonged bleeding, easily bruising, heat or cold intolerance, new onset joint pain or swelling, new onset extremity weakness or numbness, new onset auditory or visual disturbances, lightheadedness, dizziness, partial loss of consciousness or full loss of consciousness. Current Outpatient Medications Medication Sig meloxicam (MOBIC) 15 mg tablet Take 15 mg by mouth once daily. multivit-min/iron/folic acid/K (ADULTS MULTIVITAMIN ORAL) Take by mouth. oxyCODONE-acetaminophen (PERCOCET) 5-325 mg tablet Take 1 tablet by mouth every 6 hours as needed for pain. ondansetron (ZOFRAN) 4 mg tablet Take 1 tablet by mouth every 8 hours as needed for nausea/vomiting. No current facility-administered medications for this visit. Physical Exam Vitals: There were no vitals taken for this visit. Psych: Pleasant, good affect and mood General Appearance: Well appearing, alert, in no acute distress, well-hydrated, well nourished.. Skin: Skin color, texture, turgor normal, no suspicious rashes or lesions. Peripheral Pulses: Normal. Neurologic: Gait normal. Reflexes normal and symmetric. Sensation grossly intact.. Lymph Nodes: No cervical lymphadenopathy, No supraclavicular lymphadenopathy, No axillary lymphadenopathy., and No inguinal lymphadenopathy.. Respiratory: No recent pulmonary infection, hemoptysis, chronic cough, or shortness of breath at rest Rheumatologic: Joint deformities: right hip ache Right Hip Exam Tenderness The patient is experiencing tenderness in the greater trochanter. Range of Motion The patient has normal right hip ROM. Muscle Strength The patient has normal right hip strength. Tests Matt: positive Other Erythema: absent Sensation: normal Pulse: present Comments: Ttp greater troch Left Hip Exam Left hip exam is normal. Tenderness The patient is experiencing no tenderness. Range of Motion The patient has normal left hip ROM. Muscle Strength The patient has normal left hip strength. Other Erythema: absent Sensation: normal Pulse: present Assessment and Plan Radiographs: No imaging to review. Impression: Encounter Diagnosis ICD-10-CM 1. Trochanteric bursitis of right hip M70.61 MRI HIP WO IVCON RT Today, in detail, through a thorough evaluation, we discussed possible etiologies of pain and our plans for further diagnostic and therapeutic interventions. We discussed strategies for decreasing pain and improving strength, stability and motion. Patient's questions were answered in detailed. Patient verbalizes understanding and agrees with the treatment plan as discussed. Mri right hip as symptomatic post surgery and injection [facility] History of Present illness Narrative* Cathryn Morrell, DO - 08/18/2022 10:31 AM EST Images from the original note were not included. Follow Up Visit Chief Complaint Mandi Valente is a 31 year old female who presents today for follow up office visit. Patient presents with: Right Hip - Established Patient, Follow Up History of Present Illness PAIN EVALUATION 08/16/2022 1448 08/18/2022 1033 Pain Level: 4 4 Pain Location: Hip-Right Hip-Right Description: Radiating;Sore;Throbbing Burning Duration Amount of Time: 2 2 Duration Units: -- Weeks Frequency: Continuous Intermittent Intervention/Comfort measure: Medication Medication;Cold;Other: See comment Comments: Burning pain injections, meloxicam, tylenol, PT HPI: Mandi Valente is a 31 year old female for a follow up visit 6 weeks post injections for R hip trochanteric bursitis and IT band syndrome. Pt states the injections helped for about three weeks where she experienced no pain at all, but in the last couple weeks the pain has returned. Pain historyis noted as above. Is there any overall improvement in your condition? No Any new injury, since being seen last: No REVIEW OF SYMPTOMS: Patient did not have, and does not currently have, any weight loss, malaise, fever, chills, headache, chest pain, chest pressure, palpitations, cough, shortness of breath, orthopnea, paroxsymal nocturnal dyspnea, nausea, vomiting, diarrhea, constipation, melena, hematochezia, urinary difficulties, prolonged bleeding, easily bruising, heat or cold intolerance, new onset joint pain or swelling, newonset extremity weakness or numbness, new onset auditory or visual disturbances, lightheadedness, dizziness, partial loss of consciousness or full loss of consciousness. Current Outpatient Medications Medication Sig meloxicam (MOBIC) 15 mg tablet Take 15 mg by mouth once daily. multivit-min/iron/folic acid/K (ADULTS MULTIVITAMIN ORAL) Take by mouth. oxyCODONE-acetaminophen (PERCOCET) 5-325 mg tablet Take 1 tablet by mouth every 6 hours as needed for pain. ondansetron (ZOFRAN) 4 mg tablet Take 1 tablet by mouth every 8 hours as needed for nausea/vomiting. No current facility-administered medications for this visit. Physical Exam Vitals: There were no vitals taken for this visit. Psych: Pleasant, good affect and mood General Appearance: Well appearing, alert, in no acute distress, well-hydrated, well nourished.. Skin: Skin color, texture, turgor normal, no suspicious rashes or lesions. Peripheral Pulses: Normal. Neurologic: Gait normal. Reflexes normal and symmetric. Sensation grossly intact.. Lymph Nodes: No cervical lymphadenopathy, No supraclavicular lymphadenopathy, No axillary lymphadenopathy., and No inguinal lymphadenopathy.. Respiratory: No recent pulmonary infection, hemoptysis, chronic cough, or shortness of breath at rest Rheumatologic: Joint deformities: right hip ache Right Hip Exam Tenderness The patient is experiencing tenderness in the greater trochanter. Range of Motion The patient has normal right hip ROM. Muscle Strength The patient has normal right hip strength. Tests Matt: positive Other Erythema: absent Sensation: normal Pulse: present Comments: Ttp greater troch Left Hip Exam Left hip exam is normal. Tenderness The patient is experiencing no tenderness. Range of Motion The patient has normal left hip ROM. Muscle Strength The patient has normal left hip strength. Other Erythema: absent Sensation: normal Pulse: present Assessment and Plan Radiographs: No imaging to review. Impression: Encounter Diagnosis ICD-10-CM 1. Trochanteric bursitis of right hip M70.61 MRI HIP WO IVCON RT Today, in detail, through a thorough evaluation, we discussed possible etiologies of pain and our plans for further diagnostic and therapeutic interventions. We discussed strategies for decreasing pain and improving strength, stability and motion. Patient's questions were answered in detailed. Patient verbalizes understanding and agrees with the treatment plan as discussed. Mri right hip as symptomatic post surgery and injection Follow up after mri documented in this encounterGal[facility]12[facility]22 NoteHNO ID: [id number] Author: Cathryn Morrell DO Service: ? Author Type: Physician Type: Progress Notes Filed: 07/06/2022 2:47 PM Note Text: Large Joint Arthro/Inj: R greater trochanteric bursa Informed Consent Consent Obtained: Verbal [place] Protocol A moment to CARE was completed. SIGN IN Personnel directly involved with the procedure wore the appropriate PPE. Special Equipment: N/A Patient/Surrogate Stated/Verified: Patient name, Relevant allergies, Date of and Intended procedure TIME OUT Intended patient and procedure match the source document(s). Consent documented and matches the intended procedure. Relevant labs, photos, and/or imaging studies have been reviewed. Correct side/site marked and visible. Medications required for procedure verified. Fire risk assessed and interventions discussed. No implant(s) inserted. 07/06/2022 2:45 PM The procedure site was prepped in the usual sterile fashion. Site: R greater trochanteric bursa Medications: 80 mg triamcinolone acetonide 40 mg/mL Anesthetics: 8 mL ropivacaine (PF) 5 mg/mL (0.5 %) Outcome: Tolerated well, no immediate complications Post-injection instructions were reviewed with the patient and the patient voiced understanding of these instructions. SIGN OUT All specimen containers correctly labeled. All instruments, equipment, possible retained foreign bodies accounted for. Post-procedure follow-up management communicated and Plan of Care Visit completed when applicable Follow Up Visit Chief Complaint Mandi Valente is a 31 year old female who presents today for follow up office visit. Patient presents with: Right Hip - Established Patient, Follow Up, Post Op History of Present Illness PAIN EVALUATION 07/06/2022 1255 Pain Level: -- rest:1-3, movement:4-6, ROM: same Pain Location: Hip-Right Description: Burning;Throbbing;Radiating Frequency: Continuous Intervention/Comfort measure: Medication;Exercise mobRORY caro Comments: PT currently HPI: Mandi Valente is a 31 year old female for a post-op follow up visit Right hip arthroscopic iliotibial band release, trochanteric bursectomy. Patient mentions since last office visit she has notice her pain is now having a burning sensation. ROM is the same and unchanged since HORTENCIA. Pain history is noted as above. Denies calf pain, numbness, tingling, fever, chills or other constitutional symptoms. Is there any overall improvement in your condition? No Any new injury, since being seen last: No REVIEW OF SYMPTOMS: Patient did not have, and does not currently have, any weight loss, malaise, fever, chills, headache, chest pain, chest pressure, palpitations, cough, shortness of breath, orthopnea, paroxsymal nocturnal dyspnea, nausea, vomiting, diarrhea, constipation, melena, hematochezia, urinary difficulties, prolonged bleeding, easily bruising, heat or cold intolerance, new onset joint pain or swelling, new onset extremity weakness or numbness, new onset auditory or visual disturbances, lightheadedness, dizziness, partial loss of consciousness or full loss of consciousness. Current Outpatient Medications Medication Sig meloxicam (MOBIC) 15 mg tablet Take 15 mg by mouth once daily. multivit-min/iron/folic acid/K (ADULTS MULTIVITAMIN ORAL) Take by mouth. oxyCODONE-acetaminophen (PERCOCET) 5-325 mg tablet Take 1 tablet by mouth every 6 hours as needed for pain. ondansetron (ZOFRAN) 4 mg tablet Take 1 tablet by mouth every 8 hours as needed for nausea/vomiting. No current facility-administered medications for this visit. Physical Exam Vitals: There were no vitals taken for this visit. Psych: Pleasant, good affect and mood General Appearance: Well appearing, alert, in no acute distress, well-hydrated, well nourished.. Skin: Skin color, texture, turgor normal, no suspicious rashes or lesions. Peripheral Pulses: Normal. Neurologic: Gait normal. Reflexes normal and symmetric. Sensation grossly intact.. Lymph Nodes: No cervical lymphadenopathy, No supraclavicular lymphadenopathy, No axillary lymphadenopathy., and No inguinal lymphadenopathy.. Respiratory: No recent pulmonary infection, hemoptysis, chronic cough, or shortness of breath at rest Rheumatologic: Joint deformities: Right lateral hip pain Right Hip Exam Right hip exam is normal. Tenderness The patient is experiencing tenderness in the lateral and greater trochanter. Range of Motion The patient has normal right hip ROM. Muscle Strength The patient has normal right hip strength. Abduction: 4/5 Adduction: 4/5 Flexion: 4/5 Other Erythema: absent Sensation: normal Pulse: present Left Hip Exam Left hip exam is normal. Tenderness The patient is experiencing no tenderness. Range of Motion The patient has normal left hip ROM. Muscle Strength The patient has normal left hip strength. Other Erythema: absent Sensation: norm (more content not included)...[facility] 07-06-2022 NoteHNO ID: [id number] Author: ALBA Hoskins Service: Radiology Author Type: Technologist Type: Progress Notes Filed: 07/06/2022 3:13 PM Note Text: Radiology Service Progress Note PATIENT NAME: Mandi Valente DATE OF SERVICE: July 06, 2022 TIME: 3:13 PM PATIENT IDENTITY VERIFICATION COMPLETED USING TWO (2) IDENTIFIERS: Name and Date of confirmed by patient verbally. FALL SCREENING: Has the patient had 2 falls in the last year or 1 fall with injury or currently using an Ambulatory Assistive Device (Walker, Cane, Wheelchair, Crutches, etc.)? No PATIENT GENDER DATA: Female. status: : No status: NO. PATIENT RELEVANT IMPLANT DATA REVIEWED: Not Applicable RADIOLOGY DEPARTMENT: General X-ray: Exam(s) Completed: Pelvis X-Ray: Pelvis with Hip Right and Wt. Bearing PERIPHERAL IV DATA: Not applicable SIGNED BY: ALBA Hoskins July 06, 2022 3:13 PM[id number] History of Present illness Narrative* Cathryn Morrell, DO - 07/06/2022 12:53 PM ESTAssociated Order(s): Large Joint Arthro/Inj: R greater trochanteric bursa Post-Procedure Diagnose(s): Trochanteric bursitis of right hip; Iliotibial band syndrome of right side Images from the original note were not included. Large Joint Arthro/Inj: R greater trochanteric bursa Informed Consent Consent Obtained: Verbal [place] Protocol A moment to CARE was completed. SIGN IN Personnel directly involved with the procedure wore the appropriate PPE. Special Equipment: N/A Patient/Surrogate Stated/Verified: Patient name, Relevant allergies, Date of and Intended procedure TIME OUT Intended patient and procedure match the source document(s). Consent documented and matches the intended procedure. Relevant labs, photos, and/or imaging studies have been reviewed. Correct side/site marked and visible. Medications required for procedure verified. Fire risk assessed and interventions discussed. No implant(s) inserted. 07/06/2022 2:45 PM The procedure site was prepped in the usual sterile fashion. Site: R greater trochanteric bursa Medications: 80 mg triamcinolone acetonide 40 mg/mL Anesthetics: 8 mL ropivacaine (PF) 5 mg/mL (0.5 %) Outcome: Tolerated well, no immediate complications Post-injection instructions were reviewed with the patient and the patient voiced understanding of these instructions. SIGN OUT All specimen containers correctly labeled. All instruments, equipment, possible retained foreign bodies accounted for. Post-procedure follow-up management communicated and Plan of Care Visit completed when applicable Follow Up Visit Chief Complaint Mandi Valente is a 31 year old female who presents today for follow up office visit. Patient presents with: Right Hip - Established Patient, Follow Up, Post Op History of Present Illness PAIN EVALUATION 07/06/2022 1255 Pain Level: -- rest:1-3, movement:4-6, ROM: same Pain Location: Hip-Right Description: Burning;Throbbing;Radiating Frequency: Continuous Intervention/Comfort measure: Medication;Exercise mobic, IBU Comments: PT currently HPI: Mandi Valente is a 31 year old female for a post-op follow up visit Right hip arthroscopic iliotibial band release, trochanteric bursectomy. Patient mentions since last office visit she has notice her pain is now having a burning sensation. ROM is the same and unchanged since HORTENC[place]. Pain historyis noted as above. Denies calf pain, numbness, tingling, fever, chills or other constitutional symptoms. Is there any overall improvement in your condition? No Any new injury, since being seen last: No REVIEW OF SYMPTOMS: Patient did not have, and does not currently have, any weight loss, malaise, fever, chills, headache, chest pain, chest pressure, palpitations, cough, shortness of breath, orthopnea, paroxsymal nocturnal dyspnea, nausea, vomiting, diarrhea, constipation, melena, hematochezia, urinary difficulties, prolonged bleeding, easily bruising, heat or cold intolerance, new onset joint pain or swelling, newonset extremity weakness or numbness, new onset auditory or visual disturbances, lightheadedness, dizziness, partial loss of consciousness or full loss of consciousness. Current Outpatient Medications Medication Sig meloxicam (MOBIC) 15 mg tablet Take 15 mg by mouth once daily. multivit-min/iron/folic acid/K (ADULTS MULTIVITAMIN ORAL) Take by mouth. oxyCODONE-acetaminophen (PERCOCET) 5-325 mg tablet Take 1 tablet by mouth every 6 hours as needed for pain. ondansetron (ZOFRAN) 4 mg tablet Take 1 tablet by mouth every 8 hours as needed for nausea/vomiting. No current facility-administered medications for this visit. Physical Exam Vitals: There were no vitals taken for this visit. Psych: Pleasant, good affect and mood General Appearance: Well appearing, alert, in no acute distress, well-hydrated, well nourished.. Skin: Skin color, texture, turgor normal, no suspicious rashes or lesions. Peripheral Pulses: Normal. Neurologic: Gait normal. Reflexes normal and symmetric. Sensation grossly intact.. Lymph Nodes: No cervical lymphadenopathy, No supraclavicular lymphadenopathy, No axillary lymphadenopathy., and No inguinal lymphadenopathy.. Respiratory: No recent pulmonary infection, hemoptysis, chronic cough, or shortness of breath at rest Rheumatologic: Joint deformities: Right lateral hip pain Right Hip Exam Right hip exam is normal. Tenderness The patient is experiencing tenderness in the lateral and greater trochanter. Range of Motion The patient has normal right hip ROM. Muscle Strength The patient has normal right hip strength. Abduction: 4/5 Adduction: 4/5 Flexion: 4/5 Other Erythema: absent Sensation: normal Pulse: present Left Hip Exam Left hip exam is normal. Tenderness The patient is experiencing no tenderness. Range of Motion The patient has normal left hip ROM. Muscle Strength The patient has normal left hip strength. Other Erythema: absent Sensation: normal Pulse: present Comments: Neg homans Assessment and Plan Radiographs: I have independently reviewed films and my findings are the same. and I have reviewed the images with the patient and family. Last XR Hip/Pelvis - Impression Only XR HIP GENERAL 3V PELV/AP/LAT RIGHT Exam End: 07/06/2022 2:35 PM (In process) Impression: Encounter Diagnosis ICD-10-CM 1. Trochanteric bursitis of right hip M70.61 2. Iliotibial band syndrome of right side M76.31 Today, in detail, through a thorough evaluation, we discussed possible etiologies of pain and our plans for further diagnostic and therapeutic interventions. We discussed strategies for decreasing pain and improving strength, stability and motion. Patient's questions were answered in detailed. Patient verbalizes understanding and agrees with the treatment plan as discussed. Discussed with patient possible options for treatment. Patient elected proceed with injection. Patient told not to submerge the injected area for 24 hours in a hot tub, or bath, injection may take 2 weeks for improvement to be noticed, follow-up in 2 -6 weeks if symptoms do not resolve. All questions answered patient agreement of plan. Apply ice Limit activities as discussed Rest Do not submerge limb in water for 24 hours Cont current meds Watch sugars/decrease carbs Call if warm/hot/red Discussed with patient that if the injection does not work after 2 to 4 weeks to come back for reevaluation. Discussed the next 3 days may feel worse before it feels better. Discussed if having continued pain to return. May get injection every 3 months Injection diagnostic as well as therapeutic Discuss options for MRI if injection works/stops or doesn't work at all as may be coming from back Patient aware and in agreement of plan. All questions answered. documented [facility]12[facility] History of Present illness Narrative* Nida Reed CT - 07/06/2022 12:40 PM EST Radiology Service Progress Note PATIENT NAME: Mandi Valente DATE OF SERVICE: July 06, 2022 TIME: 3:13 PM PATIENT IDENTITY VERIFICATION COMPLETED USING TWO (2) IDENTIFIERS: Name and Date of confirmedby patient verbally. FALL SCREENING: Has the patient had 2 falls in the last year or 1 fall with injury or currently using an Ambulatory Assistive Device (Walker, Cane, Wheelchair, Crutches, etc.)? No PATIENT GENDER DATA: Female. status: : No status: NO. PATIENT RELEVANT IMPLANT DATA REVIEWED: Not Applicable RADIOLOGY DEPARTMENT: General X-ray: Exam(s) Completed: Pelvis X-Ray: Pelvis with Hip Right and Wt.Bearing PERIPHERAL IV DATA: Not applicable SIGNED BY: ALBA Hoskins July 06, 2022 3:13 PM documented in this encounterGalion [facility]10-13-2022 History of Present illness Narrative* Cathryn Morrell DO - 04/21/2022 11:32 AM EDT Follow Up Visit Chief Complaint Mandi Valente is a 31 year old female who presents today for follow up office visit. Patient presents with: Right Hip - Established Patient, Post Op History of Present Illness PAIN EVALUATION No data found in the last 1 encounters. HPI: Mandi Valente is a 31 year old female for a follow up visit right gt bursectomy/itb release. Pain history is noted as above. Denies calf pain, numbness, tingling, fever, chills or other constitutional symptoms. Is there any overall improvement in your condition? No Any new injury, since being seen last: No REVIEW OF SYMPTOMS: Patient did not have, and does not currently have, any weight loss, malaise, fever, chills, headache, chest pain, chest pressure, palpitations, cough, shortness of breath, orthopnea, paroxsymal nocturnal dyspnea, nausea, vomiting, diarrhea, constipation, melena, hematochezia, urinary difficulties, prolonged bleeding, easily bruising, heat or cold intolerance, new onset joint pain or swelling, newonset extremity weakness or numbness, new onset auditory or visual disturbances, lightheadedness, dizziness, partial loss of consciousness or full loss of consciousness. Current Outpatient Medications Medication Sig multivit-min/iron/folic acid/K (ADULTS MULTIVITAMIN ORAL) Take by mouth. oxyCODONE-acetaminophen (PERCOCET) 5-325 mg tablet Take 1 tablet by mouth every 6 hours as needed for pain. ondansetron (ZOFRAN) 4 mg tablet Take 1 tablet by mouth every 8 hours as needed for nausea/vomiting. No current facility-administered medications for this visit. Physical Exam Vitals: There were no vitals taken for this visit. Psych: Pleasant, good affect and mood General Appearance: Well appearing, alert, in no acute distress, well-hydrated, well nourished.. Skin: Skin color, texture, turgor normal, no suspicious rashes or lesions. Peripheral Pulses: Normal. Neurologic: Gait normal. Reflexes normal and symmetric. Sensation grossly intact.. Lymph Nodes: No cervical lymphadenopathy, No supraclavicular lymphadenopathy, No axillary lymphadenopathy., and No inguinal lymphadenopathy.. Respiratory: No recent pulmonary infection, hemoptysis, chronic cough, or shortness of breath at rest Rheumatologic: Joint deformities: Bilateral hip pain Right Hip Exam Right hip exam is normal. Tenderness The patient is experiencing no tenderness. Range of Motion The patient has normal right hip ROM. Muscle Strength The patient has normal right hip strength. Other Erythema: absent Sensation: normal Pulse: present Comments: Tight obriens Nttp greater troch Left Hip Exam Left hip exam is normal. Tenderness The patient is experiencing no tenderness. Range of Motion The patient has normal left hip ROM. Muscle Strength The patient has normal left hip strength. Other Erythema: absent Sensation: normal Pulse: present Comments: Neg homans, weak core and hip ER Assessment and Plan Radiographs: No imaging to review. Impression: Encounter Diagnosis ICD-10-CM 1. Trochanteric bursitis of right hip M70.61 CONSULT TO PHYSICAL THERAPY 2. Iliotibial band syndrome of right side M76.31 CONSULT TO PHYSICAL THERAPY Today, in detail, through a thorough evaluation, we discussed possible etiologies of pain and our plans for further diagnostic and therapeutic interventions. We discussed strategies for decreasing pain and improving strength, stability and motion. Patient's questions were answered in detailed. Patient verbalizes understanding and agrees with the treatment plan as discussed. Consult PT Follow up in 3 months Otc nsaids as not having popping or gt pain today, pain distsal to site of release, needs core strengthening/hip ER strengthening Patient aware and in agreement of plan. All questions answered. 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 Patient states she feels great during the day, but is having a lot of pain at night while trying to sleep. Pt states she cannot sleep on either side d/t throbbing/burning pain. documented in this encounterGal[facility]08-31-[facility]22 History of Present illness Narrative* Cathryn Morrell DO - 03/09/2022 10:44 AM EDT Images from the original note were not included. Follow Up Visit Chief Complaint Mandi Valente is a 31 year old female who presents today for follow up office visit. Patient presents with: Right Hip - Post Op, Pain History of Present Illness PAIN EVALUATION 03/09/2022 1040 Pain Level: 0 Pain Location: Hip-Right Description: Aching;Sore;Dull;Stiffness Duration Amount of Time: -- DOS: 02/22/22 Frequency: Intermittent Intervention/Comfort measure: Reposition;Relaxation;Cold;Medication HPI: Mandi Valente is a 31 year old female for a follow up visit S/P RT ITB release. Patient statesshe is doing well, experiencing pain while trying to sleep. Unable to sleep on right or left side without having pain. Pain history is noted as above. Denies calf pain, numbness, tingling, fever, chills or other constitutional symptoms. Is there any overall improvement in your condition? No Any new injury, since being seen last: No REVIEW OF SYMPTOMS: Patient did not have, and does not currently have, any weight loss, malaise, fever, chills, headache, chest pain, chest pressure, palpitations, cough, shortness of breath, orthopnea, paroxsymal nocturnal dyspnea, nausea, vomiting, diarrhea, constipation, melena, hematochezia, urinary difficulties, prolonged bleeding, easily bruising, heat or cold intolerance, new onset joint pain or swelling, newonset extremity weakness or numbness, new onset auditory or visual disturbances, lightheadedness, dizziness, partial loss of consciousness or full loss of consciousness. Current Outpatient Medications Medication Sig multivit-min/iron/folic acid/K (ADULTS MULTIVITAMIN ORAL) Take by mouth. oxyCODONE-acetaminophen (PERCOCET) 5-325 mg tablet Take 1 tablet by mouth every 6 hours as needed for pain. ondansetron (ZOFRAN) 4 mg tablet Take 1 tablet by mouth every 8 hours as needed for nausea/vomiting. No current facility-administered medications for this visit. Physical Exam Vitals: There were no vitals taken for this visit. Psych: Pleasant, good affect and mood General Appearance: Well appearing, alert, in no acute distress, well-hydrated, well nourished.. Skin: Skin color, texture, turgor normal, no suspicious rashes or lesions. Peripheral Pulses: Normal. Neurologic: Gait normal. Reflexes normal and symmetric. Sensation grossly intact.. Lymph Nodes: No cervical lymphadenopathy, No supraclavicular lymphadenopathy, No axillary lymphadenopathy., and No inguinal lymphadenopathy.. Respiratory: No recent pulmonary infection, hemoptysis, chronic cough, or shortness of breath at rest Rheumatologic: Joint deformities: right hip pain Right Hip Exam Right hip exam is normal. Tenderness The patient is experiencing no tenderness. Range of Motion The patient has normal right hip ROM. Muscle Strength The patient has normal right hip strength. Other Erythema: absent Scars: present Sensation: normal Pulse: present Comments: Neg homans Neg erythema/ no signs of infection Left Hip Exam Left hip exam is normal. Tenderness The patient is experiencing no tenderness. Range of Motion The patient has normal left hip ROM. Muscle Strength The patient has normal left hip strength. Other Erythema: absent Sensation: normal Pulse: present Assessment and Plan Radiographs: I have reviewed the images with the patient and family. Impression: Encounter Diagnosis ICD-10-CM 1. Trochanteric bursitis of right hip M70.61 CONSULT TO PHYSICAL THERAPY 2. Iliotibial band syndrome of right side M76.31 CONSULT TO PHYSICAL THERAPY Today, in detail, through a thorough evaluation, we discussed possible etiologies of pain and our plans for further diagnostic and therapeutic interventions. We discussed strategies for decreasing pain and improving strength, stability and motion. Patient's questions were answered in detailed. Patient verbalizes understanding and agrees with the treatment plan as discussed. Doing well form postop PT ordered Follow up in 4 weeks Disc time to heal Take otc nsaids/tylenol Patient aware and in agreement of plan. All questions answered. documented in this encounterGal[facility]08-22-[facility]22 History of Present illness Narrative* Nena Rees, KP - 02/28/2022 1:45 PM EDT Radiology Service Progress Note PATIENT NAME: Mandi Valente DATE OF SERVICE: February 28, 2022 TIME: 2:50 PM PATIENT IDENTITY VERIFICATION COMPLETED USING TWO (2) IDENTIFIERS: Name and Date of confirmedby patient verbally. FALL SCREENING: Has the patient had 2 falls in the last year or 1 fall with injury or currently using an Ambulatory Assistive Device (Walker, Cane, Wheelchair, Crutches, etc.)? No PATIENT GENDER DATA: Female. status: : No status: N/A PATIENT RELEVANT IMPLANT DATA REVIEWED: Not Applicable RADIOLOGY DEPARTMENT: Ultrasound PERIPHERAL IV DATA: Not applicable SIGNED BY: Nena Rees RDMS RVT February 28, 2022 2:50 PM documented in this encounterGalion [facility]08-22-2022 Miscellaneous Notes* Telephone Encounter - Christy Marion - 02/28/2022 1:17 PM EDT Patient has been scheduled by LAURA BENTON [[id number]] * Telephone Encounter - Christy Marion - 02/28/2022 12:10 PM EDT Called patient to schedule DVT Ultrasound, patient wanted to try [facility], we cannot schedule for them so I have her the number to call to schedule. Patient will call back if she cannot get scheduled there, to get scheduled in [place]. documented in this encounterGalion [facility]08-16-2022 History of Past illness Narrative* Problem Noted Date Resolved Date Trochanteric bursitis of right hip 02/22/2022 02/22/2022 It band syndrome, unspecified laterality 022 02/22/2022 documented as of this encounter (statuses as of 02/28/2022) [facility] of Past illness Narrative* Problem Noted Date Resolved Date Trochanteric bursitis of right hip 02/22/2022 02/22/2022 It band syndrome, unspecified laterality 022 02/22/2022 documented as of this encounter (statuses as of 03/01/2022) [facility] of Past illness Narrative* Problem Noted Date Resolved Date Trochanteric bursitis of right hip 02/22/2022 02/22/2022 It band syndrome, unspecified laterality 022 02/22/2022 documented as of this encounter (statuses as of 03/09/2022) [facility] of Past [facility] Narrative* Problem Noted Date Resolved Date Trochanteric bursitis of right hip 02/22/2022 02/22/2022 It band syndrome, unspecified laterality 022 02/22/2022 documented as of this encounter (statuses as of 04/21/2022) [facility] of Past illness Narrative* Problem Noted Date Resolved Date Trochanteric bursitis of right hip 02/22/2022 02/22/2022 It band syndrome, unspecified laterality 022 02/22/2022 documented as of this encounter (statuses as of 07/13/2022) [facility] of Past [facility] Narrative* Problem Noted Date Resolved Date Trochanteric bursitis of right hip 02/22/2022 02/22/2022 It band syndrome, unspecified laterality 022 02/22/2022 documented as of this encounter (statuses as of 07/13/2022) [facility] Past [facility] Narrative* Problem Noted Date Resolved Date Trochanteric bursitis of right hip 02/22/2022 02/22/2022 It band syndrome, unspecified laterality 022 02/22/2022 documented as of this encounter (statuses as of 08/18/2022) [facility] of Past [facility] Narrative* Problem Noted Date Resolved Date Trochanteric bursitis of right hip 02/22/2022 02/22/2022 It band syndrome, unspecified laterality 022 02/22/2022 documented as of this encounter (statuses as of 09/12/2022) [address]16-2022 History of Past illness Narrative* Problem Noted Date Resolved Date Trochanteric bursitis of right hip 02/22/2022 02/22/2022 It band syndrome, unspecified laterality 022 02/22/2022 documented as of this encounter (statuses as of 09/26/2022) [facility] Narrative* Problem Noted Date Resolved Date Trochanteric bursitis of right hip 02/22/2022 02/22/2022 It band syndrome, unspecified laterality 022 02/22/2022 documented as of this encounter (statuses as of 10/31/2022) [facility] Narrative* Problem Noted Date Resolved Date Trochanteric bursitis of right hip 02/22/2022 02/22/2022 It band syndrome, unspecified laterality 022 02/22/2022 documented as of this encounter (statuses as of 11/08/2022) [facility] Narrative* Problem Noted Date Resolved Date Trochanteric bursitis of right hip 02/22/2022 02/22/2022 It band syndrome, unspecified laterality 022 02/22/2022 documented as of this encounter (statuses as of 12/23/2022) [facility] Narrative* Problem Noted Date Resolved Date Trochanteric bursitis of right hip 02/22/2022 02/22/2022 It band syndrome, unspecified laterality 022 02/22/2022 documented as of this encounter (statuses as of 12/28/2022) [facility] Narrative* Problem Noted Date Diagnosed Date Resolved Date Trochanteric bursitis of right hip 02/22/2022 02/22/2022 It band syndrome, unspecified laterality 02/07/2022 02/22/2022 documented as of this encounter (statuses as of 05/13/2023) [facility] Miscellaneous Notes* Telephone Encounter - Brionna Menedz - 01/28/2022 3:11 PM EDT Patient had MRI done 12/08/21. * Telephone Encounter - Jessica Wan [facility] [place] - 01/28/2022 11:38 AM EDT Please contact the patient to schedule an mri prior to her surgery date of 02/22/22. documented in this encounterGalion [facility] Hospital07-15-2022 History of Present illness Narrative* Cathryn Meng Porsche, DO - 01/21/2022 9:35 AM EDT Images from the original note were not included. Follow Up Visit Chief Complaint Mandi Valente is a 31 year old female who presents today for follow up office visit. Patient presents with: Right Hip - Follow Up, Pain History of Present Illness PAIN EVALUATION 01/21/2022 0933 Pain Level: 7 at its worst Pain Location: Hip-Right Description: Sharp;Shooting;Throbbing;Stabbing Duration Amount of Time: ongoing Frequency: Intermittent Intervention/Comfort measure: Reposition;Relaxation;Cold;Medication HPI: Mandi Valente is a 31 year old female for a follow up visit right hip pain. Patient is here togo over MRI results. No change in pain. Pain history is noted as above. Denies calf pain, numbness,tingling, fever, chills or other constitutional symptoms. Is there any overall improvement in your condition? No Any new injury, since being seen last: No REVIEW OF SYMPTOMS: Patient did not have, and does not currently have, any weight loss, malaise, fever, chills, headache, chest pain, chest pressure, palpitations, cough, shortness of breath, orthopnea, paroxsymal nocturnal dyspnea, nausea, vomiting, diarrhea, constipation, melena, hematochezia, urinary difficulties, prolonged bleeding, easily bruising, heat or cold intolerance, new onset joint pain or swelling, newonset extremity weakness or numbness, new onset auditory or visual disturbances, lightheadedness, dizziness, partial loss of consciousness or full loss of consciousness. Current Outpatient Medications Medication Sig ibuprofen 800 mg tablet Take 1 tablet by mouth every 8 hours as needed (FOR PAIN. TAKE WITH FOOD). cephALEXin 500 mg capsule Take 1 capsule by mouth four times daily. With food Drospirenone-Ethinyl Estradiol 3-20 mg-mcg ORAL per tablet one daily No current facility-administered medications for this visit. Physical Exam Vitals: There were no vitals taken for this visit. Psych: Pleasant, good affect and mood General Appearance: Well appearing, alert, in no acute distress, well-hydrated, well nourished.. Skin: Skin color, texture, turgor normal, no suspicious rashes or lesions. Peripheral Pulses: Normal. Neurologic: Gait normal. Reflexes normal and symmetric. Sensation grossly intact.. Lymph Nodes: No cervical lymphadenopathy, No supraclavicular lymphadenopathy, No axillary lymphadenopathy. and No inguinal lymphadenopathy.. Respiratory: No recent pulmonary infection, hemoptysis, chronic cough, or shortness of breath at rest Rheumatologic: Joint deformities: right hip pain Right Hip Exam Tenderness The patient is experiencing tenderness in the greater trochanter. Range of Motion The patient has normal right hip ROM. Muscle Strength The patient has normal right hip strength. Tests Matt: positive Other Erythema: absent Sensation: normal Pulse: present Comments: Ttp gt right Left Hip Exam Left hip exam is normal. Tenderness The patient is experiencing no tenderness. Range of Motion The patient has normal left hip ROM. Muscle Strength The patient has normal left hip strength. Other Erythema: absent Sensation: normal Pulse: present Assessment and Plan Radiographs: I have independently reviewed films and my findings are the same. [facility] Imaging Services [address] [place] [address] Lower Ext Joint Only (Routine) MR#: [id number] Acct: [id number] Name: MANDI VALENTE Rep #: [id number] : 1990 F 31 From: Mateo Aldana MD PCP: Dr. Cholo Smith, Status: REG CLI Study: Lower Ext Joint Only (Routine) Date of Exam: 0 12/31/21 Exam# [id number] Ordering Dr: Cathryn Morrell STUDY: MRI RIGHT HIP REASON FOR EXAM: Female, 31 years old. Right hip pain. TECHNIQUE: Standardized fat and water weighted pulse sequences were obtained in all 3 orthogonal planes. COMPARISON: X-rays of the pelvis and hips dated 03/18/2021. FINDINGS: Normal hip joint without articular joint space narrowing. Normal acetabulum. Normal labrum. Normal femoral head. Normal femoral neck and intratrochanteric region. Normal gluteus minimus, medius and iliopsoas tendons and distal insertions. Right greater trochanteric bursitis (coronal series 4 images 13-18, sagittal series 8 images 4-9). Normal superior and inferior pubic rami. Normal pubic symphysis. Normal ischial tuberosity. Normal origin of the hamstring tendons. Normal visualized iliac wing, sacroiliac joint, and sacral ala. Normal visualized soft tissue structures of the pelvis. MRI/Lower Ext Joint Only (Routine) IMPRESSION: Right greater trochanteric bursitis. No other abnormality present. Impression: Encounter Diagnosis ICD-10-CM 1. Iliotibial band syndrome of right side M76.31 2. Pain in hip M25.559 3. Trochanteric bursitis of right hip M70.61 Today, in detail, through a thorough evaluation, we discussed possible etiologies of pain and our plans for further diagnostic and therapeutic interventions. We discussed strategies for decreasing pain and improving strength, stability and motion. Patient's questions were answered in detailed. Patient verbalizes understanding and agrees with the treatment plan as discussed. Risks and benefits vs alternatives to treatment were discussed with patient. Risks including but not limited to blood loss, blood clot, infection, neurovascular injury, failure of procedure, need forrevision operation, loss of life and loss of limb. Patient aware of risks and benefits and agrees to proceed with written consent for surgical intervention. [facility] Miscellaneous Notes* Telephone Encounter - Brionna Mendez - 12/15/2021 1:50 PM EDT I called and spoke with patient, she wants to call her insurance to see if she met her deductible because she works at [employer] and gets a discount there, vs getting the MRI done at a F facility. * Telephone Encounter - Jessica Wan [facility] - 12/15/2021 10:40 AM EDT Please contact the patient to have her mri scheduled with [facility]. Looks like she may have it scheduled at [facility]. It would benefit her to have it here more so the results and images are readily available for the surgeon yet it is still in her area. documented in this encounterGalion [facility]06-01-[facility]22 History of Present illness Narrative* Vianca Porsche, DO - 12/08/2021 3:23 PM EDT Images from the original note were not included. Reason for Visit/Chief Complaint Mandi Valente is a 31 year old female who presents today for a new evaluation of following complaint: Patient presents with: Right Hip - New, Pain History of Present Illness: PAIN EVALUATION 12/08/2021 1519 Pain Level: 6 Pain Location: Hip-Right Duration Amount of Time: 2 Duration Units: Years Frequency: Continuous Intervention/Comfort measure: Reposition;Relaxation;Medication;Cold;Other: See comment meloxicam, physcial therapy, cortisone injection HPI: Mandi Valente is a 31 year old female presenting today with right hip pain. Patient has had patient for almost two years now. No specific injury but says pain started while she was withher twins. Previously treated by Dr. Galvan who has referred her here for a second opinion. Pain located laterally. Pain history is noted as above. Denies calf pain, numbness, tingling, fever, chillsor other constitutional symptoms. Has done 2 prevoius injections with relief, albeit brief. Affecting her adls and lift and ability to take care of twins. Previous Treatments: Ice: Yes Heat: No Brace: No NSAIDs: Yes, meloxicam Injections: Yes, x2 troch bursa - minial relief Surgeries: No Physical Therapy: Yes Review of Systems: Patient did not have, and does not currently have, any weight loss, malaise, fever, chills, headache, chest pain, chest pressure, palpitations, cough, shortness of breath, orthopnea, paroxsymal nocturnal dyspnea, nausea, vomiting, diarrhea, constipation, melena, hematochezia, urinary difficulties, prolonged bleeding, easily bruising, heat or cold intolerance, new onset joint pain or swelling, newonset extremity weakness or numbness, new onset auditory or visual disturbances, lightheadedness, dizziness, partial loss of consciousness or full loss of consciousness. Current Outpatient Medications on File Prior to Visit Medication Sig ibuprofen 800 mg tablet Take 1 tablet by mouth every 8 hours as needed (FOR PAIN. TAKE WITH FOOD). cephALEXin 500 mg capsule Take 1 capsule by mouth four times daily. With food Drospirenone-Ethinyl Estradiol 3-20 mg-mcg ORAL per tablet one daily No current facility-administered medications on file prior to visit. ALLERGIES No Known Allergies Physical Exam: Vitals: There were no vitals taken for this visit. Psych: Pleasant, good affect and mood General Appearance: Well appearing, alert, in no acute distress, well-hydrated, well nourished.. Skin: Skin color, texture, turgor normal, no suspicious rashes or lesions. Peripheral Pulses: Normal. Neurologic: Gait normal. Reflexes normal and symmetric. Sensation grossly intact.. Lymph Nodes: No cervical lymphadenopathy, No supraclavicular lymphadenopathy, No axillary lymphadenopathy. and No inguinal lymphadenopathy.. Respiratory: No recent pulmonary infection, hemoptysis, chronic cough, or shortness of breath at rest Rheumatologic: Joint deformities: Right hip pain Right Hip Exam Tenderness The patient is experiencing tenderness in the greater trochanter. Range of Motion The patient has normal right hip ROM. Muscle Strength The patient has normal right hip strength. Other Erythema: absent Sensation: normal Pulse: present Comments: Pos oberes itb tend ttp gt right Left Hip Exam Left hip exam is normal. Tenderness The patient is experiencing no tenderness. Range of Motion The patient has normal left hip ROM. Muscle Strength The patient has normal left hip strength. Other Erythema: absent Sensation: normal Pulse: present Imaging: Last XR Hand/Finger - Impression Only No resulted procedures found. Last XR Hip/Pelvis - Impression Only XR HIP GENERAL 3V PELV/AP/LAT RIGHT Exam End: 12/08/2021 3:18 PM (In process) Complete Results Assessment and Plan: Impression: Encounter Diagnosis ICD-10-CM 1. Hip pain M25.559 2. Pain in hip M25.559 MRI HIP WO IVCON RT 3. Trochanteric bursitis of right hip M70.61 4. Iliotibial band syndrome of right side M76.31 Plan: At this point, patient has failed cons trxt options and is interested in surgical intervention Will order preop MRI for right hip for arthroscopic itb release/bursectomy F/u after mri to do consent Today, in detail, through a thorough evaluation, we discussed possible etiologies of pain and our plans for further diagnostic and therapeutic interventions. We discussed strategies for decreasing pain and improving strength, stability and motion. Patient's questions were answered in detailed. Patient verbalizes understanding and agrees with the treatment plan as discussed. documented in this encounterGal[facility]06-01-2022 Miscellaneous Notes* [facility] - RT Mio(R) - 12/08/2021 2:30 PM EDT Radiology Service Progress Note PATIENT NAME: Mandi Valente DATE OF SERVICE: December 08, 2021 TIME: 3:18 PM PATIENT IDENTITY VERIFICATION COMPLETED USING TWO (2) IDENTIFIERS: Name and Date of confirmedby patient verbally. FALL SCREENING: Has the patient had 2 falls in the last year or 1 fall with injury or currently using an Ambulatory Assistive Device (Walker, Cane, Wheelchair, Crutches, etc.)? No PATIENT GENDER DATA: Female. status: : No status: NO. PATIENT RELEVANT IMPLANT DATA REVIEWED: Not Applicable RADIOLOGY DEPARTMENT: General X-ray: Exam(s) Completed: Pelvis X-Ray: Pelvis with Hip Right PERIPHERAL IV DATA: Not applicable SIGNED BY: RT Mio(R) December 08, 2021 3:18 PM documented in this encounterGalion [facility] HospitalChief complaint+Reason for visit Narrative* Chief Complaint COVID-19 MASTODYNIA Rash COVERING BODY Rash TROCHANTERIC BURSITIS RIGHT HIP/RX HERE TROCHANTERIC BURSITIS OF RIGHT HIP Reason for Visit Allergic dermatitis Rash [facility] Work Phone: Evaluation note* Diagnosis Hip pain- Primary Pain in joint, pelvic region and thigh Pain in hip Pain in joint, pelvic region and thigh Trochanteric bursitis of right hip Enthesopathy of hip region Iliotibial band syndrome of right side Other disorder of muscle, ligament, and fascia documented [facility] this encounter [facility]* Diagnosis Pain Generalized pain documented [facility] this encounter [facility]* Diagnosis Onset Date Resolution Status Constipation acute Lymphocytic colitis acute Trochanteric bursitis of right hip acute Back pain noneactive Trochanteric bursitis of right hip acute [facility] Work Phone: Evaluation note* Diagnosis Iliotibial band syndrome of right side- Primary Other disorder of muscle, ligament, and fascia Pain in hip Pain in joint, pelvic region and thigh Trochanteric bursitis of right hip Enthesopathy of hip region [facility] Diagnosis Right calf pain [facility] this [facility]* Diagnosis Trochanteric bursitis of right hip- Primary Enthesopathy of hip region Iliotibial band syndrome of right side Other disorder of muscle, ligament, and fascia documented [facility] this [facility]* Diagnosis Trochanteric bursitis of right hip- Primary Enthesopathy of hip region Iliotibial band syndrome of right side Other disorder of muscle, ligament, and fascia [facility]* Diagnosis Trochanteric bursitis of right hip- Primary Enthesopathy of hip region Iliotibial band syndrome of right side Other disorder of muscle, ligament, and fascia documented [facility] encounter [facility]* Diagnosis Trochanteric bursitis of right hip- Primary Enthesopathy of hip region [facility]* Diagnosis Onset Date Resolution Status Allergic dermatitis acute Rash noneactive [facility] Work Phone: Evaluation note* Diagnosis Trochanteric bursitis of right hip- Primary Enthesopathy of hip region Iliotibial band syndrome of right side Other disorder of muscle, ligament, and fascia Trochanteric bursitis of right hip Enthesopathy of hip region Iliotibial band syndrome of right side Other disorder of muscle, ligament, and fascia documented [facility] this encounter [facility]* Diagnosis Preop examination- Primary Preoperative examination, unspecified Trochanteric bursitis of right hip Enthesopathy of hip region Iliotibial band syndrome of right side Other disorder of muscle, ligament, and fascia documented in this encounter [facility] [place] [facility]* Diagnosis Trochanteric bursitis of right hip- Primary Enthesopathy of hip region Iliotibial band syndrome of right side Other disorder of muscle, ligament, and fascia documented [facility] this encounter [facility]* Diagnosis Onset Date Resolution Status URI (upper respiratory infection) [facility] Work Phone: Evaluation note* Diagnosis S/P orthopedic surgery, follow-up exam- Primary Follow-up examination, following other surgery Trochanteric bursitis of right hip Enthesopathy of hip region Iliotibial band syndrome of right side Other disorder of muscle, ligament, and fascia documented [facility] this encounter [facility]* Diagnosis Onset Date Resolution Status Acute bacterial sinusitis ac [facility] Work Phone: Evaluation note* Diagnosis Strain of calf muscle, left, initial encounter- Primary documented in this encounter [facility] [place] [facility]* Diagnosis Onset Date Resolution Status Acute bacterial sinusitis [facility] Work Phone: Evaluation note* Diagnosis Onset Date Resolution Status AMA (advanced maternal age) multigravida 35+ acute External hemorrhoids acute History of miscarriage, currently acute Hx of pre-eclampsia in prior , currently acute Lower GI bleeding acute Lymphocytic colitis acute acute Supervision of high-risk acute Tilted uterus acute Chronic constipation chronic [facility] Work Phone: Evaluation note* Diagnosis Onset Date Resolution Status AMA (advanced maternal age) multigravida 35+ acute Hx of pre-eclampsia in prior , currently acute Lymphocytic colitis acute acute Supervision of high-risk acute Chronic constipation resolve d External hemorrhoids resolve d History of miscarriage, currently resolved Lower GI bleeding resolved Tilted uterus resolved AMA (advanced maternal age) multigravida 35+ acute Hx of pre-eclampsia in prior , currently acute Lymphocytic colitis acute acute Supervision of high-risk acute Chronic constipation resolve d External hemorrhoids resolve d History of miscarriage, currently resolved Lower GI bleeding resolved Tilted uterus resolved AMA (advanced maternal age) multigravida 35+ acute Hx of pre-eclampsia in prior , currently acute Lymphocytic colitis acute acute Supervision of high-risk acute [facility] Work Phone: Evaluation note* Diagnosis Pre-operative examination- Primary Preoperative examination, unspecified It band syndrome, unspecified laterality Class 1 obesity due to excess calories without serious comorbidity with body mass index (BMI) of 31.0 to 31.9 in adult Pain of left calf Pain in limb documented [facility] this encounter [facility]* Diagnosis Pre-operative examination- Primary Preoperative examination, unspecified It band syndrome, unspecified laterality Class 1 obesity due to excess calories without serious comorbidity with body mass index (BMI) of 31.0 to 31.9 in adult Pain in left hip Pain in joint, pelvic region and thigh documented in this encounter [facility] [place] [facility]* Diagnosis Pre-operative examination- Primary Preoperative examination, unspecified It band syndrome, unspecified laterality Class 1 obesity due to excess calories without serious comorbidity with body mass index (BMI) of 31.0 to 31.9 in adult Pain in right hip Pain in joint, pelvic region and thigh documented in this encounter [facility]Progr[facility] [place] note Author Lawson Parry [facility] Note Date/Time January 13, 2025 11:06 am [facility] [address], [address] [place] [address] OFFICE VISIT Date of Service: 01/13/25 MR#: [id number] Acct: [id number] Name: MANDI VALENTE Rep #: [id number] : 1990 Provider: ERI Parry Age/Sex: 34/F Location: [facility] [place] Status: Signed Intake Vital Signs 11/07/24 09:36 01/03/25 15:03 01/13/25 10:45 Height 5 ft 2 in 5 ft 2 in 5 ft 2 in Weight: 215 lb 8 oz BMI 39.4 BP 126/87 H Intake Visit Reasons: 30 wk ob 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 Is patient in pain?: No Allergies No Known Allergies Allergy (Verified 01/13/25 10:44) Medications ?Medication ?Instructions ?Recorded ?Confirmed ?Type multivitamin no.47-iron fum 27 1 cap PO DAILY pregnanc y 08/18/23 01/13/25 History mg-folate no.1 1 mg-dha 300 mg capsule (PNV-DHA) Diltiazem 2% / Lidocaine 5% #1 ea 06/24/24 01/13/25 Rx ointment (compound) polyethylene glycol 3350 17 4 g PO QDAY PRN 06/24/24 0 01/13/25 History gram/dose oral powder (Miralax) ferrous sulfate 325 mg (65 mg 325 mg PO Q OTHER DAY 01/13/25 History iron) tablet folic acid 0.8 mg capsule 0.8 mg PO QDAY 08/06/24 07/0 01/31 History famotidine 20 mg tablet (Pepcid) 20 mg PO BID 90 days #180 tabs 09/10/24 01/13/25 Rx hydroxyzine pamoate 25 mg capsule 25 mg PO QHS PRN itc marla #30 caps 01/03/25 01/13/25 Rx Last Menstrual Period: 06/20/24 : No PFSH PFSH Medical History Seasonal allergies Hx of pre-eclampsia in prior , currently Superficial varicosities Pre-eclampsia Galactorrhea Allergic dermatitis Trochanteric bursitis of right hip Lymphocytic colitis Non-smoker History of steroid therapy Constipation Umbilical hernia Chronic constipation Dichorionic diamniotic twin gestation Anal fissure External hemorrhoids Surgical History History of hip surgery Hx of umbilical hernia repair Hx of dilation and curettage History of hemorrhoidectomy (~05/2018) History of tonsillectomy Family History Mother Arthritis Hypertension Father Arthritis Hypertension CVA (cerebral vascular accident) Aunt Breast cancer Paternal Grandfather Heart disease Kidney disease Brother Hypertension Sister Hypertension Grandmother Breast cancer Paternal Diabetes Paternal Social History adopted: No household members: spouse and children number of children: 4 current occupational status: employed 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 current occupational exposures/hazards: No pets and animals: Yes (Avoid litterbox) pets and animals: cat(s) and dog(s) history of recent travel: No sexually active: Yes Smoking Status: Never smoker alcohol intake: current alcohol intake frequency: a few times a month details: not while substance use type: does not use well-balanced diet: daily or most days caffeine: Yes Type: carbonated beverages Number of servings: 2 eating out: 1-3 times/week during the past year weight has: increased > 10 lbs what type of physical activity do you participate in: none suraj/church: [employer] seatbelt use: always do you feel safe at home: Yes additional social history: [employer] History 5 Elective abortions Hx Para 3 Spontaneous abortions 1 Hx # Term Pregnancies Ectopic pregnancies Hx # Pregnancies Multiple births 1 # of living children 4 Past Pregnancies Del. Date Name GA/Weeks Outcome Route Bth Weight Gen Labor Lgth Anesthesia Del Locatn Provider FOB 04/05/18 Vinsen 41 live - full term 9#7oz Male 26 hrs epid ural [employer] Shey Madsen Alvarez 11/01/19 10 spontaneous 08/10/20 Lakisha 37 live - full term 5#14oz Female 10 HR epid ural [employer] Jenni Pino 08/10/20 Bledsoe 37 live - full term 6#4oz Male 10 HR epid ural [employer] Jenni Pino 03/19/24 Elaine 39 live - full term 8lbs 2oz Female [employer] [facility] Dr. Gleason Delivery Date: 04/05/18 Last Updated by: Merna Bermeo IOL post dates Delivery Date: 11/01/19 Last Updated by: Merna Bermeo D&C, blighted Ovum Delivery Date: 08/10/20 Last Updated by: Merna Bermeo IOL @ 37wks Twins, Gestational HTN/pre-e Delivery Date: 08/10/20 Last Updated by: Merna Bermeo IOL @ 37 weeks twins, gestational HTN, pre e Delivery Date: 03/19/24 Last Updated by: Lauren ANTHONY, gestational hypertension HPI 30 wk ob Details: MANDI VALENTE is a 34 year old who presents for routine OB visit. OB Visit RAMSES Calculator Estimated Delivery Date Method Current WG Current Estimate 03/27/25 LMP (Certain) 29w 4d Expected Delivery Route/Plan Labor Preferences- CB/BF classes: [] labor support person: [] labor intervention preferences: [] pain management options preferred: [] cut cord/dad catch: [] : [] PP control planned: [] discussed possible routes of delivery and associated risks: [] special requests: [] Specific Issue/Plans Covid status: [] Flu vaccine: [] Tdap vaccine: [] Rhogam: [] LARC form signed: [] Problem list reviewed and updated with the most current plan of care details and appropriate orders placed. Relevant counseling for the gestational age provided. Continue routine care and follow up unless otherwise noted in visit notes/problem list details Initial Weight: 196 lb Date -?-?-?-?-?-?-?-?-?-?-?-?- EGA Weight BP Urine Prot -?-?-?-?-?-?-?-?-?-?-?-?- Glucose FHR FuHt Pres Dilation -?-?-?-?-?-?-?-?-?-?-?-?- Effaced St Visit Note 08/13/24 -?-?-?-?-?-?-?-?-?-?-?-?- 7w 5d 193 lb 6 oz (-2 lb 10 oz) 139/84 -?-?-?-?-?-?-?-?-?-?-?-?- 165 -?-?-?-?-?-?-?-?-?-?-?-?- JV- CRL consiste nt with LMP. She does have a 1 cm NANCY near the cervix. pelvic rest encouraged. RTO in 2 weeks for follow up. pt has inclusion cyst that was drained at her last delivery and wants drained again today. JV- CRL consistent with LMP. desires NIPT. She does have a 1 cm NANCY near the cervix. pelvic rest encouraged. RTO in 2 weeks for follow up. pt has inclusion cyst that was drained at her last delivery and wants drained again today. 08/26/24 -?-?-?-?-?-?-?-?-?-?-?-?- 9w 4d 194 lb 8 oz (-1 lb 8 oz) 137/89 Negative -?-?-?-?-?-?-?-?-?-?-?-?- Negative 180 -?-?-?-?-?-?-?-?-?-?-?-?- KW- no vb/crampi ng. discussed starting atb and pt would like to wait to start this because she gets recurrent yeast infections with atb. timo NANCY noted on US. will RTO in 2 weeks for follow up appt. 09/10/24 -?-?-?-?-?-?-?-?-?-?-?-?- 11w 5d 196 lb 2 oz (+2 oz) 136/85 Negative -?-?-?-?-?-?-?-?-?-?-?-?- Negative 155 -?-?-?-?-?-?-?-?-?-?-?-?- JV- no complaint s today. blood work done. 10/07/24 -?-?-?-?-?-?-?-?-?-?-?-?- 15w 4d 200 lb 2 oz (+4 lb 2 oz) 138/85 Negative -?-?-?-?-?-?-?-?-?-?-?-?- Negative 149 -?-?-?-?-?-?-?-?-?-?-?-?- KW- no vb/lof/ct x. cyst is bothersome again. [facility] US scheduled KW- no vb/lof/ctx. cyst is b othersome again discussed with SM. [facility] scheduled 10/15/24 -?-?-?-?-?-?-?-?-?-?-?-?- 16w 5d 200 lb 6 oz (+4 lb 6 oz) 136/86 Negative -?-?-?-?-?-?-?-?-?-?-?-?- Negative 135 -?-?-?-?-?-?-?-?-?-?-?-?- SM- had episode of light bleeding yeast seen in ER hasn't been treated yet. urine culture and vaginal culture sent 11/07/24 -?-?-?-?-?-?-?-?-?-?-?-?- 20w 0d 205 lb 8 oz (+9 lb 8 oz) 117/77 Negative -?-?-?-?-?-?-?-?-?-?-?-?- Negative 145 -?-?-?-?-?-?-?-?-?-?-?-?- SM- no vb lof cr ampingboy on US SM- no vb lof cramping boy o n US 12/04/24 -?-?-?-?-?-?-?-?-?-?-?-?- 23w 6d 210 lb 8 oz (+14 lb 8 oz) 130/77 Negative -?-?-?-?-?-?-?-?-?-?-?-?- Negative 150 -?-?-?-?-?-?-?-?-?-?-?-?- JV- no lof, vagi nal bleeding, or dec fm.normal antomy scan. plan monthly growth scans for obesity and ama. glucola next visit. 01/03/25 -?-?-?-?-?-?-?-?-?-?-?-?- 28w 1d 211 lb 6 oz (+15 lb 6 oz) 138/82 -?-?-?-?-?-?-?-?-?-?-?-?- 152 -?-?-?-?-?-?-?-?-?-?-?-?- JV- pt diagnosed with pups but also has cutaneous candidiasis 01/13/25 -?-?-?-?-?-?-?-?-?-?-?-?- 29w 4d 215 lb 8 oz (+19 lb 8 oz) 126/87 Negative -?-?-?-?-?-?-?-?-?-?-?-?- Negative 130 31 -?-?-?-?-?-?-?-?-?--?-?-?- KW- no vb/lof/ct x. good fm. has 3 hour glucose tomorrow. ACOG First Trimester First Trimester: Discussed Second Trimester Second Trimester: Signs and Symptoms of Labor, Selecting a care provider, Reproductive Life Planning & Contreception, Care Planning, Depression/Anxiety and Intimate Partner Violence; Discussed Tobacco Cessation Third Trimester Third Trimester: Pain Management Plans, Labor support person(s), Immediate Larc, Circumcision preference, Movement Monitoring, Signs and Symptoms of Preeclampsia, Education and Family Medical Leave or Disability Forms Results POC Urinalysis 2 Dip (Clinic) Office Urine Glucose Negative Last Edit by Kenzie Sams on 01/13/25 10:52 Office Urine Protein Negative Last Edit by Kenzie Sams on 01/13/25 10:52 Coding Level of Care Code OB Routine Diagnoses Advanced maternal age in multigravida O09.529 Abnormal glucose affecting O99.810 Short interval between pregnancies affecting in first trimester, antepartum O09.891 Lymphocytic colitis K52.832 Hemorrhoids, unspecified hemorrhoid type K64.9 Hemorrhoid type: unspecified Gestational hypertension, antepartum O13.9 Trimester: unspecified trimester Chronic anemia D64.9 Pelvic floor weakness in female N81.89 Rectal pain K62.89 Perianal candidiasis B37.89 Abdominal pain R10.9 Hx of pre-eclampsia in prior , currently O09.299 Inclusion cyst of vulva N90.7 Obesity affecting O99.210 29 weeks gestation of Z3A.29 Weeks of gestation: 29 weeks Supervision of high-risk O09.90 Hx of twin in prior Z87.59 History of miscarriage, currently O09.299 Assessment and Plan Assessment and Plan (1) Advanced maternal age in multigravida: Status: Acute (2) Abnormal glucose affecting : Status: Acute Comment: needs 3 hour (3) Short interval between pregnancies affecting in first trimester, antepartum: Status: Acute Comment: baby 4 months old when became with this gestation. (4) Lymphocytic colitis: Status: Acute (5) Hemorrhoids: Status: Acute Qualifiers: Hemorrhoid type: unspecified Qualified Code(s): K64.9 - Unspecified hemorrhoids (6) Gestational hypertension: Status: Acute Qualifiers: Trimester: unspecified trimester Qualified Code(s): O13.9 - Gestational [-induced] hypertension without significant proteinuria, unspecified trimester Comment: resolved pp (7) Chronic anemia: Status: Chronic (8) Pelvic floor weakness in female: Status: Acute (9) Rectal pain: Status: Acute (10) Perianal candidiasis: Status: Acute (11) Abdominal pain: Status: Acute (12) Hx of pre-eclampsia in prior , currently : Status: Acute (13) Inclusion cyst of vulva: Status: Acute Comment: +actinomycis:4 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 (16) Supervision of high-risk : Status: Acute Comment: PRR,, RAMSES 03/27/25, boy,PC Lakisha Underwood & Earnestine(Twins), Elaine Alvarez will be 39 weeks on Elaine's -. requests IOL on this day. (17) Hx of twin in prior : Status: Acute Comment: Fraternal (18) History of miscarriage, currently : Status: Acute Orders: Orders POC Urinalysis 2 Dip (Clinic) Today 01/13/25 1106 <Electronically signed by Lawson mujica CNM> Date _ Lawson Parry CNM Cosigner Signature: Date (if applicable) CC: ~ [place] [employer] Work Phone: Reason for referral (narrative)* Diagnostic Procedure Only (Routine) - Closed Specialty Diagnoses / Procedures Referred By David t Referred To Contact XR IMAGING Diagnoses Pain Procedures XR HIP GENERAL 3V PELV/AP/LAT RIGHT RADEX HIP UNILATERAL WITH PELVIS 2-3 VIEWS Cathryn Morrell DO [address] [place] [address] Xr Imaging Referral ID Status Reason Start Date Expiration Date V isits Requested Visits Authorized [id number] Closed Auto-Generate d Referral 12/02/2021 01/01/2023 1 1 [facility] for referral (narrative)* Diagnostic Procedure Only (Urgent) - Closed Specialty Diagnoses / Procedures Referred By Contac t Referred To Contact US IMAGING Diagnoses Right calf pain Procedures US DVT LOWER RT DUP-SCAN XTR VEINS UNILATERAL/LIMITED STUDY Kelly Johnson PA-C [address] [place] [address] Us Imaging Referral ID Status Reason Start Date Expiration Date V isits Requested Visits Authorized [id number] Closed Auto-Generate d Referral 02/28/2022 03/30/2023 1 1 [facility] for referral (narrative)* Diagnostic Procedure Only (Routine) - Closed Specialty Diagnoses / Procedures Referred By Contac t Referred To Contact XR IMAGING Diagnoses Pain of left calf Procedures XR TIBIA FIBULA 2V AP/LAT LEFT RADIOLOGIC EXAMINATION TIBIA & FIBULA 2 VIEWS Kelly Calabrese PA-C [address] [place] [address] [place] [address] Referral ID Status Reason Start Date Expiration Date V isits Requested Visits Authorized [id number] Closed Auto-Generate d Referral 05/08/2023 06/06/2024 1 1 [facility] for referral (narrative)* Diagnostic Procedure Only (Routine) - Closed Specialty Diagnoses / Procedures Referred By Contac t Referred To Contact XR IMAGING Diagnoses Pain in left hip Procedures XR HIP GENERAL 3V PELV/AP/LAT LEFT RADEX HIP UNILATERAL WITH PELVIS 2-3 VIEWS Kelly Calabrese PA-C [address] [place] [address] [place] [address] Referral ID Status Reason Start Date Expiration Date V isits Requested Visits Authorized [id number] Closed Auto-Generate d Referral 02/08/2023 03/09/2024 1 1 [facility] for referral (narrative)* Diagnostic Procedure Only (Routine) - Closed Specialty Diagnoses / Procedures Referred By Contac t Referred To Contact XR IMAGING Diagnoses Pain in right hip Procedures XR HIP GENERAL 3V PELV/AP/LAT RIGHT RADEX HIP UNILATERAL WITH PELVIS 2-3 VIEWS Cathryn Morrell DO [address] [place] [address] [place] [address] Referral ID Status Reason Start Date Expiration Date V isits Requested Visits Authorized [id number] Closed Auto-Generate d Referral 06/28/2022 07/28/2023 1 1 [facility] for referral (narrative)No reason for referral information [facility]: [facility] Narrative* Diagnostic Procedure Only (Routine) - Closed Specialty Diagnoses / Procedures Referred By Contac t Referred To Contact XR IMAGING Diagnoses Pain of left calf Procedures XR TIBIA FIBULA 2V AP/LAT LEFT RADIOLOGIC EXAMINATION TIBIA & FIBULA 2 VIEWS Kelly Calabrese PA-C [address] [place] [address] [place] [address] Referral ID Status Reason Start Date Expiration Date V isits Requested Visits Authorized [id number] Closed Auto-Generate d Referral 05/08/2023 06/06/2024 1 1 [facility] for visit Narrative* Diagnostic Procedure Only (Routine) - Closed Specialty Diagnoses / Procedures Referred By Contac t Referred To Contact XR IMAGING Diagnoses Pain in left hip Procedures XR HIP GENERAL 3V PELV/AP/LAT LEFT RADEX HIP UNILATERAL WITH PELVIS 2-3 VIEWS Kelly Calabrese PA-Ernestina [address] [place] [address] [place] [address] Referral ID Status Reason Start Date Expiration Date V isits Requested Visits Authorized [id number] Closed Auto-Generate d Referral 02/08/2023 03/09/2024 1 1 [facility] for visit Narrative* Diagnostic Procedure Only (Routine) - Closed Specialty Diagnoses / Procedures Referred By Contac t Referred To Contact XR IMAGING Diagnoses Pain in right hip Procedures XR HIP GENERAL 3V PELV/AP/LAT RIGHT RADEX HIP UNILATERAL WITH PELVIS 2-3 VIEWS Cathryn Morrell DO [facility] [place] [address] [place] [address] Referral ID Status Reason Start Date Expiration Date V isits Requested Visits Authorized [id number] Closed Auto-Generate d Referral 06/28/2022 07/28/2023 1 1 [facility] Reason for Referral Specialty Diagnoses / Procedures Referred By Contac t Referred To Contact MR IMAGING Diagnoses Pain in hip Procedures MRI HIP WO IVCON RT MRI ANY JT LOWER EXTREM W/O CONTRAST Cathryn Sousa DO [facility] [place] [address] Mr Imaging Referral ID Status Reason Start Date Expiration Date Visits Requested Visits Authorized [id number] Pending Review Auto-Generat ed Referral 12/08/2021 01/07/2023 1 1 Specialty Diagnoses / Procedures Referred By Contac t Referred To Contact [facility] Diagnoses Trochanteric bursitis of right hip Iliotibial band syndrome of right side Procedures CONSULT TO PHYSICAL THERAPY PHYSICAL THERAPY EVALUATION HIGH COMPLEX 45 MINS Cathryn Morrell DO [facility] [place] [address] [facility] [address] [address] Referral ID Status Reason Start Date Expiration Date Visits Requested Visits Authorized [id number] Pending Review Auto-Generat ed Referral 03/09/2022 03/09/2023 1 1 Referral ID Status Reason Start Date Expiration Date Visits Requested Visits Authorized [id number] Pending Review Auto-Generat ed Referral 04/21/2023 1 1 Specialty Diagnoses / Procedures Referred By Contac t Referred To Contact MR IMAGING Diagnoses Trochanteric bursitis of right hip Procedures MRI HIP WO IVCON RT MRI ANY JT LOWER EXTREM W/O CONTRAST ELENAL Cathryn Morrell DO [facility] [place] [address] Mr Imaging Referral ID Status Reason Start Date Expiration Date Visits Requested Visits Authorized [id number] Pending Review Auto-Generat ed Referral 08/18/2022 09/17/2023 1 1 Specialty Diagnoses / Procedures Referred By David t Referred To Contact [facility] Diagnoses Strain of calf muscle, left, initial encounter Procedures CONSULT TO PHYSICAL THERAPY PHYSICAL THERAPY EVALUATION HIGH COMPLEX 45 MINS Kelly Calabrese PA-C [address] [place] [address] [facility] [address] [place] [address] Referral ID Status Reason Start Date Expiration Date Visits Requested Visits Authorized [id number] Pending Review Auto-Generat ed Referral 05/12/2023 05/11/2024 1 1 Chief Complaint and Reason for Visit Chief Complaint 2 M FU Back pain Lumbar spine CHRONIC RT HIP PAIN, SUSPECT IMPINGEMENT Reason for Visit Constipation Lymphocytic colitis Trochanteric bursitis of right hip Back pain Trochanteric bursitis of right hip Chief Complaint TROCHANTERIC BURSITI S RIGHT HIP/RX HERE TROCHANTERIC BURSITIS OF RIGHT HIP COUGH/CONGESTION/BA ABSCESS Reason for Visit URI (upper respirato ry infection) Chief Complaint ABSCESS SORE THROAT Reason for Visit Acute bacterial sinu sitis Chief Complaint SORE THROAT RASH/UPPER/LOWER EXTREMITY Reason for Visit Acute bacterial sinu sitis Scabies Chief Complaint RASH/UPPER/LOWER EXT REMITY New OB, Hx Twins, LMP 06/20/23, RAMSES 03/26/24 Reason for Visit AMA (advanced matern al age) multigravida 35+ External hemorrhoids History of miscarriage, currently Hx of pre-eclampsia in prior , currently Lower GI bleeding Lymphocytic colitis Supervision of high-risk Tilted uterus Chronic constipation Chief Complaint RASH/UPPER/LOWER EXT REMITY New OB, Hx Twins, LMP 06/20/23, RAMSES 03/26/24 [facility] Reason for Visit AMA (advanced matern al age) multigravida 35+ External hemorrhoids History of miscarriage, currently Hx of pre-eclampsia in prior , currently Lower GI bleeding Lymphocytic colitis Supervision of high-risk Tilted uterus Chronic constipation Chief Complaint New OB, Hx Twins, LM P 06/20/23, RAMSES 03/26/24 [facility] [address] WK OB 17 WK OB Reason for Visit AMA (advanced matern al age) multigravida 35+ Hx of pre-eclampsia in prior , currently Lymphocytic colitis Supervision of high-risk Chronic constipation External hemorrhoids History of miscarriage, currently Lower GI bleeding Tilted uterus AMA (advanced maternal age) multigravida 35+ Hx of pre-eclampsia in prior , currently Lymphocytic colitis Supervision of high-risk Chronic constipation External hemorrhoids History of miscarriage, currently Lower GI bleeding Tilted uterus AMA (advanced maternal age) multigravida 35+ Hx of pre-eclampsia in prior , currently Lymphocytic colitis Supervision of high-risk Chief Complaint Admit Date PELVIC FLOOR. RX GERE May 27 5:52pm 3 M FU June 24, 2024 9:16am poss yeast infection June 26, 2024 12:47pm Post Surgery check July 08, 2024 3:23pm New OB, LMP 06/20/24, 03/27/25, inclusion cyst August 13, 2024 3:04pm 9wk5d ob/US August 26, 2024 12:46pm 12 wk OB September 10, 2024 2:47 pm Reason for Visit Admit Date Hemorrhoids June 24, 2024 9:16am Perianal candidiasis June 24, 2024 9:16am Rectal pain June 24, 2024 9:16am Vaginal discharge June 26, 2024 12:47pm Abdominal pain July 08, 2024 3:23pm Hemorrhoids July 08, 2024 3:23pm Lymphocytic colitis July 08, 2024 3:23pm Rectal pain July 08, 2024 3:23pm Constipation July 08, 2024 3:23pm Abdominal pain August 13, 2024 3 :04pm Advanced maternal age (AMA) in August 13, 2024 3:04pm Gestational hypertension August 13, 2 025 3:04pm Hemorrhoids August 13, 2024 3 :04pm History of miscarriage, currently pregna nt August 13, 2024 3:04pm Hx of pre-eclampsia in prior , currently August 13, 2024 3:04pm Hx of twin in prior August 13, 2024 3:04pm Inclusion cyst of vulva August 13 3:04pm Lymphocytic colitis August 13, 2024 3 :04pm Obesity affecting August 3:04pm Pelvic floor weakness in female August 13, 2024 3:04pm Perianal candidiasis August 13, 2024 3:04pm August 13, 2024 3 :04pm Rectal pain August 13, 2024 3 :04pm Short interval between pregn ancies affecting in first trimester, August 13, 2024 3:04pm Supervision of high-risk Febru david 2024 3:04pm Chronic anemia August 13, 2024 3 :04pm Abdominal pain August 26, 2024 12:46pm Advanced maternal age (AMA) in August 26, 2024 12:46pm Gestational hypertension August 26, 2024 12:46pm Hemorrhoids August 26, 2024 12:46pm History of miscarriage, currently pregna nt August 26, 2024 12:46pm Hx of pre-eclampsia in prior , currently August 26, 2024 12:46pm Hx of twin in prior August 26, 2024 12:46pm Inclusion cyst of vulva August 26 12:46pm Lymphocytic colitis August 26, 2024 12:46pm Obesity affecting August 12:46pm Pelvic floor weakness in female August 26, 2024 12:46pm Perianal candidiasis August 26, 2024 12:46pm August 26, 2024 12:46pm Rectal pain August 26, 2024 12:46pm Short interval between pregn ancies affecting in first trimester, August 26, 2024 12:46pm Supervision of high-risk Febru david 2024 12:46pm Chronic anemia August 26, 2024 12:46pm Abdominal pain September 10, 2024 2:47 pm Advanced maternal age (AMA) in September 10, 2024 2:47pm Gestational hypertension September 10, 2024 2:47pm Hemorrhoids September 10, 2024 2:47 pm History of miscarriage, currently pregna nt September 10, 2024 2:47pm Hx of pre-eclampsia in prior , currently September 10, 2024 2:47pm Hx of twin in prior September 10, 2024 2:47pm Inclusion cyst of vulva September 10, 2024 2:47pm Lymphocytic colitis September 10, 2024 2:47 pm Obesity affecting September 10, 2 025 2:47pm Pelvic floor weakness in female September 2:47pm Perianal candidiasis September 10, 2024 2:4 7pm September 10, 2024 2:47 pm Rectal pain September 10, 2024 2:47 pm Short interval between pregn ancies affecting in first trimester, September 10, 2024 2:47pm Supervision of high-risk September 10, 2024 2:47pm Chronic anemia September 10, 2024 2:47 pm Chief Complaint Admit Date 3 M FU June 24, 2024 9:16am poss yeast infection June 26, 2024 12:47pm Post Surgery check July 08, 2024 3:23pm New OB, LMP 06/20/24, 03/27/25, inclusion cyst August 13, 2024 3:04pm 9wk5d ob/US August 26, 2024 12:46pm 12 wk OB September 10, 2024 2:47 pm Chief Complaint Admit Date 3 M FU June 24, 2024 9:16am poss yeast infection June 26, 2024 12:47pm Post Surgery check July 08, 2024 3:23pm New OB, LMP 06/20/24, 03/27/25, inclusion cyst August 13, 2024 3:04pm 9wk5d ob/US August 26, 2024 12:46pm 12 wk OB September 10, 2024 2:47 pm 16wk ob October 07, 2024 1:5 3pm Vag bleeding, October 11, 2024 9 :49pm OB pink spotting October 15, 2024 12:4 4pm Reason for Visit Admit Date Hemorrhoids June 24, 2024 9:16am Perianal candidiasis June 24, 2024 9:16am Rectal pain June 24, 2024 9:16am Vaginal discharge June 26, 2024 12:47pm Abdominal pain July 08, 2024 3:23pm Hemorrhoids July 08, 2024 3:23pm Lymphocytic colitis July 08, 2024 3:23pm Rectal pain July 08, 2024 3:23pm Constipation July 08, 2024 3:23pm Abdominal pain August 13, 2024 3 :04pm Advanced maternal age (AMA) in August 13, 2024 3:04pm Gestational hypertension August 13 3:04pm Hemorrhoids August 13, 2024 3 :04pm History of miscarriage, currently pregna nt August 13, 2024 3:04pm Hx of pre-eclampsia in prior , currently August 13, 2024 3:04pm Hx of twin in prior August 13, 2024 3:04pm Inclusion cyst of vulva August 13 3:04pm Lymphocytic colitis August 13, 2024 3 :04pm Obesity affecting August 3:04pm Pelvic floor weakness in female August 13, 2024 3:04pm Perianal candidiasis August 13, 2024 3:04pm August 13, 2024 3 :04pm Rectal pain August 13, 2024 3 :04pm Short interval between pregn ancies affecting in first trimester, August 13, 2024 3:04pm Supervision of high-risk Febru david 2024 3:04pm Chronic anemia August 13, 2024 3 :04pm Abdominal pain August 26, 2024 12:46pm Advanced maternal age (AMA) in August 26, 2024 12:46pm Gestational hypertension August 26, 2024 12:46pm Hemorrhoids August 26, 2024 12:46pm History of miscarriage, currently pregna nt August 26, 2024 12:46pm Hx of pre-eclampsia in prior , currently August 26, 2024 12:46pm Hx of twin in prior August 26, 2024 12:46pm Inclusion cyst of vulva August 26 025 12:46pm Lymphocytic colitis August 26, 2024 12:46pm Obesity affecting August 12:46pm Pelvic floor weakness in female August 26, 2024 12:46pm Perianal candidiasis August 26, 2024 12:46pm August 26, 2024 12:46pm Rectal pain August 26, 2024 12:46pm Short interval between pregn ancies affecting in first trimester, August 26, 2024 12:46pm Supervision of high-risk Febru david 2024 12:46pm Chronic anemia August 26, 2024 12:46pm Abdominal pain September 10, 2024 2:47 pm Advanced maternal age (AMA) in September 10, 2024 2:47pm Gestational hypertension September 10, 2024 2:47pm Hemorrhoids September 10, 2024 2:47 pm History of miscarriage, currently pregna nt September 10, 2024 2:47pm Hx of pre-eclampsia in prior , currently September 10, 2024 2:47pm Hx of twin in prior September 10, 2024 2:47pm Inclusion cyst of vulva September 10, 2024 2:47pm Lymphocytic colitis September 10, 2024 2:47 pm Obesity affecting September 10, 025 2:47pm Pelvic floor weakness in female September 2:47pm Perianal candidiasis September 10, 2024 2:4 7pm September 10, 2024 2:47 pm Rectal pain September 10, 2024 2:47 pm Short interval between pregn ancies affecting in first trimester, September 10, 2024 2:47pm Supervision of high-risk September 10, 2024 2:47pm Chronic anemia September 10, 2024 2:47 pm Abdominal pain October 07, 2024 1:5 3pm Advanced maternal age (AMA) in October 07, 2024 1:53pm Gestational hypertension October 07 1:53pm Hemorrhoids October 07, 2024 1:5 3pm History of miscarriage, currently pregna nt October 07, 2024 1:53pm Hx of pre-eclampsia in prior , currently October 07, 2024 1:53pm Hx of twin in prior October 07, 2024 1:53pm Inclusion cyst of vulva October 07, 2024 1:53pm Lymphocytic colitis October 07, 2024 1:5 3pm Obesity affecting October 07, 2024 1:53pm Pelvic floor weakness in female October 072024 1:53pm Perianal candidiasis October 07, 2024 1: 53pm October 07, 2024 1:5 3pm Rectal pain October 07, 2024 1:5 3pm Short interval between pregn ancies affecting in first trimester, October 07, 2024 1:53pm Supervision of high-risk October 07, 2024 1:53pm Chronic anemia October 07, 2024 1:5 3pm Abdominal pain October 15, 2024 12:4 4pm Advanced maternal age (AMA) in October 15, 2024 12:44pm Gestational hypertension October 15, 2024 12:44pm Hemorrhoids October 15, 2024 12:4 4pm History of miscarriage, currently pregna nt October 15, 2024 12:44pm Hx of pre-eclampsia in prior , currently October 15, 2024 12:44pm Hx of twin in prior October 15, 2024 12:44pm Inclusion cyst of vulva October 15, 2024 12:44pm Lymphocytic colitis October 15, 2024 12:4 4pm Obesity affecting October 15, 2 025 12:44pm Pelvic cramping October 15, 2024 12:4 4pm Pelvic floor weakness in female October 12:44pm Perianal candidiasis October 15, 2024 12: 44pm October 15, 2024 12:4 4pm Rectal pain October 15, 2024 12:4 4pm Short interval between pregn ancies affecting in first trimester, October 15, 2024 12:44pm Supervision of high-risk October 15, 2024 12:44pm Vaginal bleeding in October 15, 2024 12:44pm Yeast vaginitis October 15, 2024 12:4 4pm Chronic anemia October 15, 2024 12:4 4pm Chief Complaint Admit Date New OB, LMP 06/20/24, 03/27/25, inclusion cyst August 13, 2024 3:04pm 9wk5d ob/US August 26, 2024 12:46pm 12 wk OB September 10, 2024 2:47 pm 16wk ob October 07, 2024 1:5 3pm Vag bleeding, October 11, 2024 9 :49pm OB pink spotting October 15, 2024 12:4 4pm 20wk ob November 07, 2024 9:28am 24 wk ob December 04, 2024 2:48p m Reason for Visit Admit Date Abdominal pain August 13, 2024 3 :04pm Advanced maternal age (AMA) in August 13, 2024 3:04pm Gestational hypertension August 13, 2 025 3:04pm Hemorrhoids August 13, 2024 3 :04pm History of miscarriage, currently pregna nt August 13, 2024 3:04pm Hx of pre-eclampsia in prior , currently August 13, 2024 3:04pm Hx of twin in prior August 13, 2024 3:04pm Inclusion cyst of vulva August 13 3:04pm Lymphocytic colitis August 13, 2024 3 :04pm Obesity affecting August 3:04pm Pelvic floor weakness in female August 13, 2024 3:04pm Perianal candidiasis August 13, 2024 3:04pm August 13, 2024 3 :04pm Rectal pain August 13, 2024 3 :04pm Short interval between pregn ancies affecting in first trimester, August 13, 2024 3:04pm Supervision of high-risk Febru [place] 2024 3:04pm Chronic anemia August 13, 2024 3 :04pm Abdominal pain August 26, 2024 12:46pm Advanced maternal age (AMA) in August 26, 2024 12:46pm Gestational hypertension August 26, 2024 12:46pm Hemorrhoids August 26, 2024 12:46pm History of miscarriage, currently pregna nt August 26, 2024 12:46pm Hx of pre-eclampsia in prior , currently August 26, 2024 12:46pm Hx of twin in prior August 26, 2024 12:46pm Inclusion cyst of vulva August 26 12:46pm Lymphocytic colitis August 26, 2024 12:46pm Obesity affecting August 12:46pm Pelvic floor weakness in female August 26, 2024 12:46pm Perianal candidiasis August 26, 2024 12:46pm August 26, 2024 12:46pm Rectal pain August 26, 2024 12:46pm Short interval between pregn ancies affecting in first trimester, August 26, 2024 12:46pm Supervision of high-risk Febru david 2024 12:46pm Chronic anemia August 26, 2024 12:46pm Abdominal pain September 10, 2024 2:47 pm Advanced maternal age (AMA) in September 10, 2024 2:47pm Gestational hypertension September 10, 2024 2:47pm Hemorrhoids September 10, 2024 2:47 pm History of miscarriage, currently pregna nt September 10, 2024 2:47pm Hx of pre-eclampsia in prior , currently September 10, 2024 2:47pm Hx of twin in prior September 10, 2024 2:47pm Inclusion cyst of vulva September 10, 2024 2:47pm Lymphocytic colitis September 10, 2024 2:47 pm Obesity affecting September 10 2:47pm Pelvic floor weakness in female September 2:47pm Perianal candidiasis September 10, 2024 2:4 7pm September 10, 2024 2:47 pm Rectal pain September 10, 2024 2:47 pm Short interval between pregn ancies affecting in first trimester, September 10, 2024 2:47pm Supervision of high-risk September 10, 2024 2:47pm Chronic anemia September 10, 2024 2:47 pm Abdominal pain October 07, 2024 1:5 3pm Advanced maternal age (AMA) in October 07, 2024 1:53pm Gestational hypertension October 07 1:53pm Hemorrhoids October 07, 2024 1:5 3pm History of miscarriage, currently pregna nt October 07, 2024 1:53pm Hx of pre-eclampsia in prior , currently October 07, 2024 1:53pm Hx of twin in prior October 07, 2024 1:53pm Inclusion cyst of vulva October 07, 2024 1:53pm Lymphocytic colitis October 07, 2024 1:5 3pm Obesity affecting October 07, 2024 1:53pm Pelvic floor weakness in female October 072024 1:53pm Perianal candidiasis October 07, 2024 1: 53pm October 07, 2024 1:5 3pm Rectal pain October 07, 2024 1:5 3pm Short interval between pregn ancies affecting in first trimester, October 07, 2024 1:53pm Supervision of high-risk October 07, 2024 1:53pm Chronic anemia October 07, 2024 1:5 3pm Abdominal pain October 15, 2024 12:4 4pm Advanced maternal age (AMA) in October 15, 2024 12:44pm Gestational hypertension October 15, 2024 12:44pm Hemorrhoids October 15, 2024 12:4 4pm History of miscarriage, currently pregna nt October 15, 2024 12:44pm Hx of pre-eclampsia in prior , currently October 15, 2024 12:44pm Hx of twin in prior October 15, 2024 12:44pm Inclusion cyst of vulva October 15, 2024 12:44pm Lymphocytic colitis October 15, 2024 12:4 4pm Obesity affecting October 15, 025 12:44pm Pelvic floor weakness in female October 12:44pm Perianal candidiasis October 15, 2024 12: 44pm October 15, 2024 12:4 4pm Rectal pain October 15, 2024 12:4 4pm Short interval between pregn ancies affecting in first trimester, October 15, 2024 12:44pm Supervision of high-risk October 15, 2024 12:44pm Chronic anemia October 15, 2024 12:4 4pm Pelvic cramping October 15, 2024 12:4 4pm Vaginal bleeding in October 15, 2024 12:44pm Yeast vaginitis October 15, 2024 12:4 4pm Abdominal pain November 07, 2024 9:28am Advanced maternal age (AMA) in November 07, 2024 9:28am Gestational hypertension November 07, 2024 9 :28am Hemorrhoids November 07, 2024 9:28am History of miscarriage, currently pregna nt November 07, 2024 9:28am Hx of pre-eclampsia in prior , currently November 07, 2024 9:28am Hx of twin in prior November 07, 2024 9:28am Inclusion cyst of vulva November 07, 2024 9: 28am Lymphocytic colitis November 07, 2024 9:28am Obesity affecting November 07 9:28am Pelvic floor weakness in female November 07, 2024 9:28am Perianal candidiasis November 07, 2024 9:28a m November 07, 2024 9:28am Rectal pain November 07, 2024 9:28am Short interval between pregn ancies affecting in first trimester, November 07, 2024 9:28am Supervision of high-risk November 072024 9:28am Chronic anemia November 07, 2024 9:28am Abdominal pain December 04, 2024 2:48p m Advanced maternal age (AMA) in December 04, 2024 2:48pm Gestational hypertension December 04, 2024 2:48pm Hemorrhoids December 04, 2024 2:48p m History of miscarriage, currently pregna nt December 04, 2024 2:48pm Hx of pre-eclampsia in prior , currently December 04, 2024 2:48pm Hx of twin in prior December 04, 2024 2:48pm Inclusion cyst of vulva December 04, 2024 2 :48pm Lymphocytic colitis December 04, 2024 2:48p m Obesity affecting December 04 2:48pm Pelvic floor weakness in female November 2:48pm Perianal candidiasis December 04, 2024 2:48 pm December 04, 2024 2:48p m Rectal pain December 04, 2024 2:48p m Short interval between pregn ancies affecting in first trimester, December 04, 2024 2:48pm Supervision of high-risk November 082024 2:48pm Chronic anemia December 04, 2024 2:48p m Chief Complaint Admit Date 12 wk OB September 10, 2024 2:47 pm 16wk ob October 07, 2024 1:5 3pm Vag bleeding, October 11, 2024 9 :49pm OB pink spotting October 15, 2024 12:4 4pm 20wk ob November 07, 2024 9:28am 24 wk ob December 04, 2024 2:48p m EORDERS/DRAW AT 11:10 December 26, 2024 10 :59am Reason for Visit Admit Date Abdominal pain September 10, 2024 2:47 pm Advanced maternal age (AMA) in September 10, 2024 2:47pm Gestational hypertension September 10, 2024 2:47pm Hemorrhoids September 10, 2024 2:47 pm History of miscarriage, currently pregna nt September 10, 2024 2:47pm Hx of pre-eclampsia in prior , currently September 10, 2024 2:47pm Hx of twin in prior September 10, 2024 2:47pm Inclusion cyst of vulva September 10, 2024 2:47pm Lymphocytic colitis September 10, 2024 2:47 pm Obesity affecting September 10, 2:47pm Pelvic floor weakness in female September 2:47pm Perianal candidiasis September 10, 2024 2:4 7pm September 10, 2024 2:47 pm Rectal pain September 10, 2024 2:47 pm Short interval between pregn ancies affecting in first trimester, September 10, 2024 2:47pm Supervision of high-risk September 10, 2024 2:47pm Chronic anemia September 10, 2024 2:47 pm Abdominal pain October 07, 2024 1:5 3pm Advanced maternal age (AMA) in October 07, 2024 1:53pm Gestational hypertension October 07 1:53pm Hemorrhoids October 07, 2024 1:5 3pm History of miscarriage, currently pregna nt October 07, 2024 1:53pm Hx of pre-eclampsia in prior , currently October 07, 2024 1:53pm Hx of twin in prior October 07, 2024 1:53pm Inclusion cyst of vulva October 07, 2024 1:53pm Lymphocytic colitis October 07, 2024 1:5 3pm Obesity affecting October 07, 2024 1:53pm Pelvic floor weakness in female October 072024 1:53pm Perianal candidiasis October 07, 2024 1: 53pm October 07, 2024 1:5 3pm Rectal pain October 07, 2024 1:5 3pm Short interval between pregn ancies affecting in first trimester, October 07, 2024 1:53pm Supervision of high-risk October 07, 2024 1:53pm Chronic anemia October 07, 2024 1:5 3pm Abdominal pain October 15, 2024 12:4 4pm Advanced maternal age (AMA) in October 15, 2024 12:44pm Gestational hypertension October 15, 2024 12:44pm Hemorrhoids October 15, 2024 12:4 4pm History of miscarriage, currently pregna nt October 15, 2024 12:44pm Hx of pre-eclampsia in prior , currently October 15, 2024 12:44pm Hx of twin in prior October 15, 2024 12:44pm Inclusion cyst of vulva October 15, 2024 12:44pm Lymphocytic colitis October 15, 2024 12:4 4pm Obesity affecting October 15, 12:44pm Pelvic floor weakness in female October 12:44pm Perianal candidiasis October 15, 2024 12: 44pm October 15, 2024 12:4 4pm Rectal pain October 15, 2024 12:4 4pm Short interval between pregn ancies affecting in first trimester, October 15, 2024 12:44pm Supervision of high-risk October 15, 2024 12:44pm Chronic anemia October 15, 2024 12:4 4pm Pelvic cramping October 15, 2024 12:4 4pm Vaginal bleeding in October 15, 2024 12:44pm Yeast vaginitis October 15, 2024 12:4 4pm Abdominal pain November 07, 2024 9:28am Advanced maternal age (AMA) in November 07, 2024 9:28am Gestational hypertension November 07, 2024 9 :28am Hemorrhoids November 07, 2024 9:28am History of miscarriage, currently pregna nt November 07, 2024 9:28am Hx of pre-eclampsia in prior , currently November 07, 2024 9:28am Hx of twin in prior November 07, 2024 9:28am Inclusion cyst of vulva November 07, 2024 9: 28am Lymphocytic colitis November 07, 2024 9:28am Obesity affecting November 07 9:28am Pelvic floor weakness in female November 07, 2024 9:28am Perianal candidiasis November 07, 2024 9:28a m November 07, 2024 9:28am Rectal pain November 07, 2024 9:28am Short interval between pregn ancies affecting in first trimester, November 07, 2024 9:28am Supervision of high-risk November 072024 9:28am Chronic anemia November 07, 2024 9:28am Abdominal pain December 04, 2024 2:48p m Advanced maternal age (AMA) in December 04, 2024 2:48pm Gestational hypertension December 04, 2024 2:48pm Hemorrhoids December 04, 2024 2:48p m History of miscarriage, currently pregna nt December 04, 2024 2:48pm Hx of pre-eclampsia in prior , currently December 04, 2024 2:48pm Hx of twin in prior December 04, 2024 2:48pm Inclusion cyst of vulva December 04, 2024 2 :48pm Lymphocytic colitis December 04, 2024 2:48p m Obesity affecting December 04 2:48pm Pelvic floor weakness in female November 2:48pm Perianal candidiasis December 04, 2024 2:48 pm December 04, 2024 2:48p m Rectal pain December 04, 2024 2:48p m Short interval between pregn ancies affecting in first trimester, December 04, 2024 2:48pm Supervision of high-risk November 082024 2:48pm Chronic anemia December 04, 2024 2:48p m Chief Complaint Admit Date 12 wk OB September 10, 2024 2:47 pm 16wk ob October 07, 2024 1:5 3pm Vag bleeding, October 11, 2024 9 :49pm OB pink spotting October 15, 2024 12:4 4pm 20wk ob November 07, 2024 9:28am 24 wk ob December 04, 2024 2:48p m EORDERS/DRAW AT 11:10 December 26, 2024 10 :59am 28 wk ob/Glucose January 03, 2025 2:52 pm Reason for Visit Admit Date Abdominal pain September 10, 2024 2:47 pm Advanced maternal age (AMA) in September 10, 2024 2:47pm Gestational hypertension September 10, 2024 2:47pm Hemorrhoids September 10, 2024 2:47 pm History of miscarriage, currently pregna nt September 10, 2024 2:47pm Hx of pre-eclampsia in prior , currently September 10, 2024 2:47pm Hx of twin in prior September 10, 2024 2:47pm Inclusion cyst of vulva September 10, 2024 2:47pm Lymphocytic colitis September 10, 2024 2:47 pm Obesity affecting September 10, 2:47pm Pelvic floor weakness in female September 2:47pm Perianal candidiasis September 10, 2024 2:4 7pm September 10, 2024 2:47 pm Rectal pain September 10, 2024 2:47 pm Short interval between pregn ancies affecting in first trimester, September 10, 2024 2:47pm Supervision of high-risk September 10, 2024 2:47pm Chronic anemia September 10, 2024 2:47 pm Abdominal pain October 07, 2024 1:5 3pm Advanced maternal age (AMA) in October 07, 2024 1:53pm Gestational hypertension October 07 1:53pm Hemorrhoids October 07, 2024 1:5 3pm History of miscarriage, currently pregna nt October 07, 2024 1:53pm Hx of pre-eclampsia in prior , currently October 07, 2024 1:53pm Hx of twin in prior October 07, 2024 1:53pm Inclusion cyst of vulva October 07, 2024 1:53pm Lymphocytic colitis October 07, 2024 1:5 3pm Obesity affecting October 07, 2024 1:53pm Pelvic floor weakness in female October 072024 1:53pm Perianal candidiasis October 07, 2024 1: 53pm October 07, 2024 1:5 3pm Rectal pain October 07, 2024 1:5 3pm Short interval between pregn ancies affecting in first trimester, October 07, 2024 1:53pm Supervision of high-risk October 07, 2024 1:53pm Chronic anemia October 07, 2024 1:5 3pm Abdominal pain October 15, 2024 12:4 4pm Advanced maternal age (AMA) in October 15, 2024 12:44pm Gestational hypertension October 15, 2024 12:44pm Hemorrhoids October 15, 2024 12:4 4pm History of miscarriage, currently pregna nt October 15, 2024 12:44pm Hx of pre-eclampsia in prior , currently October 15, 2024 12:44pm Hx of twin in prior October 15, 2024 12:44pm Inclusion cyst of vulva October 15, 2024 12:44pm Lymphocytic colitis October 15, 2024 12:4 4pm Obesity affecting October 15 12:44pm Pelvic floor weakness in female October 12:44pm Perianal candidiasis October 15, 2024 12: 44pm October 15, 2024 12:4 4pm Rectal pain October 15, 2024 12:4 4pm Short interval between pregn ancies affecting in first trimester, October 15, 2024 12:44pm Supervision of high-risk October 15, 2024 12:44pm Chronic anemia October 15, 2024 12:4 4pm Pelvic cramping October 15, 2024 12:4 4pm Vaginal bleeding in October 15, 2024 12:44pm Yeast vaginitis October 15, 2024 12:4 4pm Abdominal pain November 07, 2024 9:28am Advanced maternal age (AMA) in November 07, 2024 9:28am Gestational hypertension November 07, 2024 9 :28am Hemorrhoids November 07, 2024 9:28am History of miscarriage, currently pregna nt November 07, 2024 9:28am Hx of pre-eclampsia in prior , currently November 07, 2024 9:28am Hx of twin in prior November 07, 2024 9:28am Inclusion cyst of vulva November 07, 2024 9: 28am Lymphocytic colitis November 07, 2024 9:28am Obesity affecting November 07 9:28am Pelvic floor weakness in female November 07, 2024 9:28am Perianal candidiasis November 07, 2024 9:28a m November 07, 2024 9:28am Rectal pain November 07, 2024 9:28am Short interval between pregn ancies affecting in first trimester, November 07, 2024 9:28am Supervision of high-risk November 072024 9:28am Chronic anemia November 07, 2024 9:28am Abdominal pain December 04, 2024 2:48p m Advanced maternal age (AMA) in December 04, 2024 2:48pm Gestational hypertension December 04, 2024 2:48pm Hemorrhoids December 04, 2024 2:48p m History of miscarriage, currently pregna nt December 04, 2024 2:48pm Hx of pre-eclampsia in prior , currently December 04, 2024 2:48pm Hx of twin in prior December 04, 2024 2:48pm Inclusion cyst of vulva December 04, 2024 2 :48pm Lymphocytic colitis December 04, 2024 2:48p m Obesity affecting December 04 2:48pm Pelvic floor weakness in female November 2:48pm Perianal candidiasis December 04, 2024 2:48 pm December 04, 2024 2:48p m Rectal pain December 04, 2024 2:48p m Short interval between pregn ancies affecting in first trimester, December 04, 2024 2:48pm Supervision of high-risk November 082024 2:48pm Chronic anemia December 04, 2024 2:48p m Abdominal pain January 03, 2025 2:52 pm Abnormal glucose affecting Ti 2024 2:52pm Advanced maternal age (AMA) in January 03, 2025 2:52pm Gestational hypertension January 03, 2025 2:52pm Hemorrhoids January 03, 2025 2:52 pm History of miscarriage, currently pregna nt January 03, 2025 2:52pm Hx of pre-eclampsia in prior , currently January 03, 2025 2:52pm Hx of twin in prior January 03, 2025 2:52pm Inclusion cyst of vulva January 03, 2025 2:52pm Lymphocytic colitis January 03, 2025 2:52 pm Obesity affecting January 03, 2:52pm Pelvic floor weakness in female December 2:52pm Perianal candidiasis January 03, 2025 2:5 2pm January 03, 2025 2:52 pm Rectal pain January 03, 2025 2:52 pm Short interval between pregn ancies affecting in first trimester, January 03, 2025 2:52pm Supervision of high-risk January 03, 2025 2:52pm Chronic anemia January 03, 2025 2:52 pm Chief Complaint Admit Date 16wk ob October 07, 2024 1:5 3pm Vag bleeding, October 11, 2024 9 :49pm OB pink spotting October 15, 2024 12:4 4pm 20wk ob November 07, 2024 9:28am 24 wk ob December 04, 2024 2:48p m EORDERS/DRAW AT 11:10 December 26, 2024 10 :59am 28 wk ob/Glucose January 03, 2025 2:52 pm 30 wk ob January 13, 2025 10:41 am Reason for Visit Admit Date Abdominal pain October 07, 2024 1:5 3pm Gestational hypertension October 07 1:53pm Hemorrhoids October 07, 2024 1:5 3pm History of miscarriage, currently pregna nt October 07, 2024 1:53pm Hx of pre-eclampsia in prior , currently October 07, 2024 1:53pm Hx of twin in prior October 07, 2024 1:53pm Inclusion cyst of vulva October 07, 2024 1:53pm Lymphocytic colitis October 07, 2024 1:5 3pm Obesity affecting October 07, 2024 1:53pm Pelvic floor weakness in female October 072024 1:53pm Perianal candidiasis October 07, 2024 1: 53pm October 07, 2024 1:5 3pm Rectal pain October 07, 2024 1:5 3pm Short interval between pregn ancies affecting in first trimester, October 07, 2024 1:53pm Supervision of high-risk October 07, 2024 1:53pm Chronic anemia October 07, 2024 1:5 3pm Advanced maternal age (AMA) in October 07, 2024 1:53pm Abdominal pain October 15, 2024 12:4 4pm Gestational hypertension October 15, 2024 12:44pm Hemorrhoids October 15, 2024 12:4 4pm History of miscarriage, currently pregna nt October 15, 2024 12:44pm Hx of pre-eclampsia in prior , currently October 15, 2024 12:44pm Hx of twin in prior October 15, 2024 12:44pm Inclusion cyst of vulva October 15, 2024 12:44pm Lymphocytic colitis October 15, 2024 12:4 4pm Obesity affecting October 15 12:44pm Pelvic floor weakness in female October 12:44pm Perianal candidiasis October 15, 2024 12: 44pm October 15, 2024 12:4 4pm Rectal pain October 15, 2024 12:4 4pm Short interval between pregn ancies affecting in first trimester, October 15, 2024 12:44pm Supervision of high-risk October 15, 2024 12:44pm Chronic anemia October 15, 2024 12:4 4pm Pelvic cramping October 15, 2024 12:4 4pm Vaginal bleeding in October 15, 2024 12:44pm Yeast vaginitis October 15, 2024 12:4 4pm Advanced maternal age (AMA) in October 15, 2024 12:44pm Abdominal pain November 07, 2024 9:28am Gestational hypertension November 07, 2024 9 :28am Hemorrhoids November 07, 2024 9:28am History of miscarriage, currently pregna nt November 07, 2024 9:28am Hx of pre-eclampsia in prior , currently November 07, 2024 9:28am Hx of twin in prior November 07, 2024 9:28am Inclusion cyst of vulva November 07, 2024 9: 28am Lymphocytic colitis November 07, 2024 9:28am Obesity affecting November 07 9:28am Pelvic floor weakness in female November 07, 2024 9:28am Perianal candidiasis November 07, 2024 9:28a m November 07, 2024 9:28am Rectal pain November 07, 2024 9:28am Short interval between pregn ancies affecting in first trimester, November 07, 2024 9:28am Supervision of high-risk November 072024 9:28am Chronic anemia November 07, 2024 9:28am Advanced maternal age (AMA) in November 07, 2024 9:28am Abdominal pain December 04, 2024 2:48p m Gestational hypertension December 04, 2024 2:48pm Hemorrhoids December 04, 2024 2:48p m History of miscarriage, currently pregna nt December 04, 2024 2:48pm Hx of pre-eclampsia in prior , currently December 04, 2024 2:48pm Hx of twin in prior December 04, 2024 2:48pm Inclusion cyst of vulva December 04, 2024 2 :48pm Lymphocytic colitis December 04, 2024 2:48p m Obesity affecting December 04 2:48pm Pelvic floor weakness in female November 2:48pm Perianal candidiasis December 04, 2024 2:48 pm December 04, 2024 2:48p m Rectal pain December 04, 2024 2:48p m Short interval between pregn ancies affecting in first trimester, December 04, 2024 2:48pm Supervision of high-risk November 082024 2:48pm Chronic anemia December 04, 2024 2:48p m Advanced maternal age (AMA) in December 04, 2024 2:48pm Abdominal pain January 03, 2025 2:52 pm Abnormal glucose affecting Ti 2024 2:52pm Gestational hypertension January 03, 2025 2:52pm Hemorrhoids January 03, 2025 2:52 pm History of miscarriage, currently pregna nt January 03, 2025 2:52pm Hx of pre-eclampsia in prior , currently January 03, 2025 2:52pm Hx of twin in prior January 03, 2025 2:52pm Inclusion cyst of vulva January 03, 2025 2:52pm Lymphocytic colitis January 03, 2025 2:52 pm Obesity affecting January 03, 2:52pm Pelvic floor weakness in female December 2:52pm Perianal candidiasis January 03, 2025 2:5 2pm January 03, 2025 2:52 pm Rectal pain January 03, 2025 2:52 pm Short interval between pregn ancies affecting in first trimester, January 03, 2025 2:52pm Supervision of high-risk January 03, 2025 2:52pm Chronic anemia January 03, 2025 2:52 pm Advanced maternal age (AMA) in January 03, 2025 2:52pm Abdominal pain January 13, 2025 10:41 am Abnormal glucose affecting Jan 10:41am Advanced maternal age in multigravida Ju 2024 10:41am Gestational hypertension January 13, 2025 10:41am Hemorrhoids January 13, 2025 10:41 am History of miscarriage, currently pregna nt January 13, 2025 10:41am Hx of pre-eclampsia in prior , currently January 13, 2025 10:41am Hx of twin in prior January 13, 2025 10:41am Inclusion cyst of vulva January 13, 2025 1 0:41am Lymphocytic colitis January 13, 2025 10:41 am Obesity affecting January 13 10:41am Pelvic floor weakness in female January 10:41am Perianal candidiasis January 13, 2025 10:4 1am January 13, 2025 10:41 am Rectal pain January 13, 2025 10:41 am Short interval between pregn ancies affecting in first trimester, January 13, 2025 10:41am Supervision of high-risk January 13, 2025 10:41am Chronic anemia January 13, 2025 10:41 am Family History Relationship Condition Age at Onset Recorded Date/T lito mother Arthritis Unknown Hypertension Unknown father Arthritis Unknown aunt Malignant neoplasm of breast Unknown grandfather Cardiac disease Unknown Kidney disorder Unknown brother Hypertension Unknown sister Hypertension Unknown Relationship Condition Age at Onset Recorded Date/T lito mother Arthritis Unknown Hypertension Unknown father Arthritis Unknown aunt Malignant neoplasm of breast Unknown grandfather Cardiac disease Unknown Kidney disorder Unknown brother Hypertension Unknown sister Hypertension Unknown grandmother Malignant neoplasm of breast Unknown Relationship Condition Age at Onset Recorded Date/T lito mother Arthritis Unknown Hypertension Unknown father Arthritis Unknown Cerebrovascular accident (CVA) Unknown aunt Malignant neoplasm of breast Unknown grandfather Cardiac disease Unknown Kidney disorder Unknown brother Hypertension Unknown sister Hypertension Unknown grandmother Malignant neoplasm of breast Unknown Diabetes mellitus Unknown Advance Directives Advance Directive Response Recorded Date/ Time Advance Directives No August 12:13pm Living Will No September 01 12:13pm Power of [employer] No September 01, 2021 12:13pm Advance Directive Response Recorded Date/ Time Advance Directives No August 11:13am Living Will No September 01 11:13am Power of [employer] Manager No September 01, 2021 11:13am Advance Directive Response Recorded Date/ Time Advance Directives No August 12:13pm Living Will No December 08, 2022 9 :03am Power of [employer] Manager No December 08, 2022 9:03am Advance Directive Response Recorded Date/ Time Advance Directives No August 11:13am Living Will No December 08, 2022 8 :03am Power of [employer] Beauty [employer] Manager No December 08, 2022 8:03am Advance Directive Response Recorded Date/ Time Living Will Yes March 21, 2024 11:01am Power of [employer] Beauty [employer] Manager Yes March 11:01am Advance Directives No July 18, 2024 11:52am Living Will Yes June 04 4:15pm Power of [employer] Beauty [employer] Manager Yes June 04, 2024 4:15pm Name of Medical Power of Barber Or Beauty [employer] Manager June 04, 2024 4:15pm Advance Directive Response Recorded Date/ Time Living Will Yes March 21, 2024 11:01am Do you have a Healthcare Power of [employer] Or Beauty [employer] Manager? Yes March 21, 2024 11:01am Advance Directives No July 18, 2024 11:52am Living Will Yes June 04 4:15pm Do you have a Healthcare Power of Barber Or Beauty [employer] Manager? Yes June 04, 2024 4:15pm Name of Medical Power of Barber Or Beauty [employer] Manager June 04, 2024 4:15pm Advance Directive Response Recorded Date/ Time Living Will Yes March 21, 2024 11:01am Do you have a Healthcare Power of Barber Or Beauty Shop Manager? Yes March 21, 2024 11:01am Advance Directives No July 18, 2024 11:52am Living Will Yes October 11, 2024 9:53pm Do you have a Healthcare Power of Barber Or Beauty [employer] Manager? Yes October 11, 2024 9:53pm Name of Medical Power of [employer] Or Beauty [employer] Manager October 11, 2024 9:53pm Advance Directive Response Recorded Date/ Time Advance Directives No July 18, 2024 11:52am Living Will Yes October 11, 2024 9:53pm Do you have a Healthcare Power of Barber Or Beauty Shop Manager? Yes October 11, 2024 9:53pm Name of Medical Power of Barber Or Beauty [employer] Manager October 11, 2024 9:53pm Advance Directive Response Recorded Date/ Time Living Will Yes October 11, 2024 9:53pm Do you have a Healthcare Power of Barber Or Beauty Shop Manager? Yes October 11, 2024 9:53pm Name of Medical Power of Barber Or Beauty Shop Manager October 11, 2024 9:53pm Advance Directives No July 18, 2024 11:52am Medications Administered Section Inactive Administered Medications - up to 3 most recent administrations Medication Order MAR Action Action Date Dose Rate Site ropivacaine (PF) 5 mg/mL (0.5 %) 8 mL injection (NAROPIN) 8 mL, Injection - FOR ORTHO USE ONLY, ONE TIME INJECTION, 1 dose, Starting on Mon07/06/22 at 1445, Until Mon07/06/22 at 1445 Given 07/06/2022 2:45 PM EST 8 mL H ip, Right triamcinolone acetonide 80 mg injection (KeNALog 40) 80 mg, Injection - FOR ORTHO USE ONLY, ONE TIME INJECTION, 1 dose, Starting on Mon07/06/22 at 1445, Until Mon07/06/22 at 1445 Given 07/06/2022 2:45 PM EST 80 mg H ip, Right Summary Purpose Additional Source Comments Source Comments (unrecognize d section and content) In the event this informatio n is protected by the Federal Confidentiality of Alcohol and Drug Abuse Patient Records regulations: The Federal rules restrict any use of the information to criminally investigate or prosecute any alcohol or drug abuse patient.[facility] the event this information is protected by the Federal Confidentiality of Alcohol and Drug Abuse Patient Records regulations: The Federal rules restrict any use of the information to criminally investigate or prosecute any alcohol or drug abuse patient.[facility] the event this information is protected by the Federal Confidentiality of Alcohol and Drug Abuse Patient Records regulations: The Federal rules restrict any use of the information to criminally investigate or prosecute any alcohol or drug abuse patient.[facility]In the event this information is protected by the Federal Confidentiality of Alcohol and Drug Abuse Patient Records regulations: The Federal rules restrict any use of the information to criminally investigate or prosecute any alcohol or drug abuse patient.[facility] the event this information is protected by the Federal Confidentiality of Alcohol and Drug Abuse Patient Records regulations: The Federal rules restrict any use of the information to criminally investigate or prosecute any alcohol or drug abuse patient.[facility] the event this information is protected by the Federal Confidentiality of Alcohol and Drug Abuse Patient Records regulations: The Federal rules restrict any use of the information to criminally investigate or prosecute any alcohol or drug abuse patient.[facility] the event this information is protected by the Federal Confidentiality of Alcohol and Drug Abuse Patient Records regulations: The Federal rules restrict any use of the information to criminally investigate or prosecute any alcohol or drug abuse patient.[facility] the event this information is protected by the Federal Confidentiality of Alcohol and Drug Abuse Patient Records regulations: The Federal rules restrict any use of the information to criminally investigate or prosecute any alcohol or drug abuse patient.[facility] the event this information is protected by the Federal Confidentiality of Alcohol and Drug Abuse Patient Records regulations: The Federal rules restrict any use of the information to criminally investigate or prosecute any alcohol or drug abuse patient.[facility] the event this information is protected by the Federal Confidentiality of Alcohol and Drug Abuse Patient Records regulations: The Federal rules restrict any use of the information to criminally investigate or prosecute any alcohol or drug abuse patient.[facility] the event this information is protected by the Federal Confidentiality of Alcohol and Drug Abuse Patient Records regulations: The Federal rules restrict any use of the information to criminally investigate or prosecute any alcohol or drug abuse patient.[facility]In the event this information is protected by the Federal Confidentiality of Alcohol and Drug Abuse Patient Records regulations: The Federal rules restrict any use of the information to criminally investigate or prosecute any alcohol or drug abuse patient.[facility]In the event this information is protected by the Federal Confidentiality of Alcohol and Drug Abuse Patient Records regulations: The Federal rules restrict any use of the information to criminally investigate or prosecute any alcohol or drug abuse patient.[facility]In the event this information is protected by the Federal Confidentiality of Alcohol and Drug Abuse Patient Records regulations: The Federal rules restrict any use of the information to criminally investigate or prosecute any alcohol or drug abuse patient.[facility]In the event this information is protected by the Federal Confidentiality of Alcohol and Drug Abuse Patient Records regulations: The Federal rules restrict any use of the information to criminally investigate or prosecute any alcohol or drug abuse patient.[facility]In the event this information is protected by the Federal Confidentiality of Alcohol and Drug Abuse Patient Records regulations: The Federal rules restrict any use of the information to criminally investigate or prosecute any alcohol or drug abuse patient.[facility]In the event this information is protected by the Federal Confidentiality of Alcohol and Drug Abuse Patient Records regulations: The Federal rules restrict any use of the information to criminally investigate or prosecute any alcohol or drug abuse patient.[facility]In the event this information is protected by the Federal Confidentiality of Alcohol and Drug Abuse Patient Records regulations: The Federal rules restrict any use of the information to criminally investigate or prosecute any alcohol or drug abuse patient.[facility]In the event this information is protected by the Federal Confidentiality of Alcohol and Drug Abuse Patient Records regulations: The Federal rules restrict any use of the information to criminally investigate or prosecute any alcohol or drug abuse patient.[facility] HospitalIn the event this information is protected by the Federal Confidentiality of Alcohol and Drug Abuse Patient Records regulations: The Federal rules restrict any use of the information to criminally investigate or prosecute any alcohol or drug abuse patient.[facility] HospitalIn the event this information is protected by the Federal Confidentiality of Alcohol and Drug Abuse Patient Records regulations: The Federal rules restrict any use of the information to criminally investigate or prosecute any alcohol or drug abuse patient.[facility] Reason for Visit (unrecogniz ed section and content) Reason Comments New Pain Specialty Diagnoses / Procedures Referred By Contac t Referred To Contact Diagnoses OV Procedures OV Self [facility] Dept Referral ID Status Reason Start Date Expiration Date V isits Requested Visits Authorized [id number] Closed Patient Cleared - Qualified 100% FAS 12/03/2021 03/03/2022 99 99 Reason Comments Follow Up Pain Reason Comments Appointment Reason Comments Radiology US Specialty Diagnoses / Procedures Referred By Contac t Referred To Contact US IMAGING Diagnoses Right calf pain Procedures US DVT LOWER RT DUP-SCAN XTR VEINS UNILATERAL/LIMITED STUDY Kelly Johnson PA-C [address] [place] [address] Us Imaging Referral ID Status Reason Start Date Expiration Date V isits Requested Visits Authorized [id number] Closed Auto-Generate d Referral 02/28/2022 03/30/2023 1 1 Reason Comments Post Op Pain Reason Comments Established Patient Post Op Reason Comments Established Patient Follow Up Post Op Reason Comments Established Patient Follow Up Specialty Diagnoses / Procedures Referred By Contac t Referred To Contact Orthopedics / ORTHOPAEDIC SURGERY Diagnoses Right leg pain Right hip pain hip/leg pain,Rt Procedures OFFICE/OUTPATIENT ESTABLISHED HIGH MDM 40-54 MIN AMAYA ESTABLISH Self Cathryn Morrell DO [address] [place] [address] Referral ID Status Reason Start Date Expiration Date V isits Requested Visits Authorized [id number] Authorized 08/17/2022 07/09/2023 99 99 Reason Comments Consult Reason Comments Pre-Op Visit Established Patient Reason Comments Post Op Pain Reason Comments Established Patient Pain Care Teams (unrecognized sec tion and content) Team Status: Active Member Role Status Dates Dr. Cholo Smith DO Primary Care Provider Active Team Status: Inactive Member Role Status Dates Dr. Cholo Smith DO Primary Care Provider Active Start: June 11, 2024 End: June 11, 2024 Dr. Cholo Smith DO Referring Provider Active Start: June 11, 2024 End: June 11, 2024 Dr. Elijah Shafer DO Attending Provider Active Start: June 11, 2024 End: June 11, 2024 Team Status: Active Member Role Status Dates Dr. Cholo Smith DO Primary Care Provider Active Start: June 11, 2024 Dr. Cholo Smith DO Referring Provider Active Start: June 11, 2024 Dr. Elijah Shafer DO Attending Provider Active Start: June 11, 2024 Dr. Elijah Shafer DO Other Provider Active St art: June 11, 2024 Team Status: Inactive Member Role Status Dates Dr. Cholo Smith DO Primary Care Provider Active Start: June 24, 2024 End: June 24, 2024 Dr. Cholo Smith DO Referring Provider Active Start: June 24, 2024 End: June 24, 2024 LUIS EDUARDO Garza Attending Provider Active Start: June 24, 2024 End: June 24, 2024 Team Status: Inactive Member Role Status Dates Dr. Cholo Smith DO Primary Care Provider Active Start: June 26, 2024 End: June 26, 2024 Dr. Cholo Smith DO Referring Provider Active Start: June 26, 2024 End: June 26, 2024 LUIS EDUARDO Asif Attending Provider Active Start: June 26, 2024 End: June 26, 2024 Team Status: Inactive Member Role Status Dates Dr. Cholo Smith DO Primary Care Provider Active Start: June 26, 2024 End: June 26, 2024 LUIS EDUARDO Asif Attending Provider Active Start: June 26, 2024 End: June 26, 2024 LUIS EDUARDO Asif Referring Provider Active Start: June 26, 2024 End: June 26, 2024 Team Status: Inactive Member Role Status Dates Dr. Cholo Smith DO Primary Care Provider Active Start: July 08, 2024 End: July 08, 2024 Dr. Cholo Smith DO Referring Provider Active Start: July 08, 2024 End: July 08, 2024 Dr. Elijah Shafer DO Attending Provider Active Start: July 08, 2024 End: July 08, 2024 Team Status: Inactive Member Role Status Dates Dr. Cholo Smith DO Primary Care Provider Active Start: August 13, 2024 End: August 13, 2024 Dr. Cholo Smith DO Referring Provider Active Start: August 13, 2024 End: August 13, 2024 Dr. Reina Rashid DO Attending Provider Activ e Start: August 13, 2024 End: August 13, 2024 Team Status: Inactive Member Role Status Dates Dr. Cholo Smith DO Primary Care Provider Active Start: August 13, 2024 End: August 13, 2024 Dr. Reina Rashid DO Attending Provider Activ e Start: August 13, 2024 End: August 13, 2024 Dr. Reina Rashid DO Referring Provider Activ e Start: August 13, 2024 End: August 13, 2024 Team Status: Inactive Member Role Status Dates Dr. Cholo Smith DO Primary Care Provider Active Start: August 26, 2024 End: August 26, 2024 Dr. Cholo Smith DO Referring Provider Active Start: August 26, 2024 End: August 26, 2024 Lawson Parry CNM Attending Provider Active S tart: August 26, 2024 End: August 26, 2024 Team Status: Inactive Member Role Status Dates Dr. Cholo Smith DO Primary Care Provider Active Start: September 10, 2024 End: September 10, 2024 Dr. Cholo Smith DO Referring Provider Active Start: September 10, 2024 End: September 10, 2024 Dr. Reina Rashid DO Attending Provider Activ e Start: September 10, 2024 End: September 10, 2024 Team Status: Inactive Member Role Status Dates Dr. Cholo Smith DO Primary Care Provider Active Start: September 10, 2024 End: September 10, 2024 Dr. Reina Rashid DO Attending Provider Activ e Start: September 10, 2024 End: September 10, 2024 Dr. Reina Vande Velde , DO Referring Provider Activ e Start: September 10, 2024 End: September 10, 2024 Circuit Board Assembler Relationship Specialty Start Date End Date ZewaJ Luis lundy (Historic) PCP - General Internal Medicine 07/19/10 Circuit Board Assembler Relationship Specialty Start Date End Date ZeJ Luis chery (Historic) PCP - General Internal Medicine 07/19/10 Circuit Board Assembler Relationship Specialty Start Date End Date ZewaJ Luis lundy (Historic) PCP - General Internal Medicine 07/19/10 Circuit Board Assembler Relationship Specialty Start Date End Date ZewaJ Luis lundy (Historic) PCP - General Internal Medicine 07/19/10 Circuit Board Assembler Relationship Specialty Start Date End Date ZeJ Luis chery (Historic) PCP - General Internal Medicine 07/19/10 Circuit Board Assembler Relationship Specialty Start Date End Date ZeJ Luis chery (Historic) PCP - General Internal Medicine 07/19/10 Circuit Board Assembler Relationship Specialty Start Date End Date ZewaJ Luis lundy (Historic) PCP - General Internal Medicine 07/19/10 Circuit Board Assembler Relationship Specialty Start Date End Date ZeJ Luis chery (Historic) PCP - General Internal Medicine 07/19/10 Circuit Board Assembler Relationship Specialty Start Date End Date ZewaJ Luis lundy (Historic) PCP - General Internal Medicine 07/19/10 Team Status: Active Member Role Status Dates Dr. Cholo Smith , DO Family Provider Active Dr. Cholo Smith , DO Primary Care Provider Active Team Status: Inactive Member Role Status Dates Dr. Cholo Smith , DO Primary Care Provider, Referrin g Provider Active Chay VALERIO, PA Attending Provider Active Team Status: Inactive Member Role Status Dates Dr. Cholo Smith , DO Primary Care Provider Active Chay VALERIO, PA Attending Provider Active Team Status: Active Member Role Status Dates Dr. Cholo Smith , DO Primary Care Provider Active Dr. Cathryn Morrell , DO Attending Provider, Ref erring Provider Active Team Status: Inactive Member Role Status Dates Dr. Cholo Smith , Primary Care Provider Active Dr. Jenni Coyle MD Attending Provider Active Team Status: Active Member Role Status Dates Dr. Cholo Smith DO Primary Care Provider Active Dr. Jeffrey Ott MD Attending Provider Active Team Status: Inactive Member Role Status Dates Dr. Cholo Smith , DO Primary Care Provider Active Dr. Cathryn Morrell , DO Attending Provider, Ref erring Provider Active Team Status: Active Member Role Status Dates Dr. Cholo Smith DO Primary Care Prov ider, Attending Provider, Referring Provider Active Circuit Board Assembler Relationship Specialty Start Date End Date J Luis Jacobsonmarisol (Historic) PCP - General Internal Medicine 07/19/10 Team Status: Inactive Member Role Status Dates Dr. Cholo Smith DO Primary Care Prov ider, Attending Provider, Referring Provider Active Circuit Board Assembler Relationship Specialty Start Date End Date Macariomichaelkamron J Luis Leijamarisol (Historic) PCP - General Internal Medicine 07/19/10 Circuit Board Assembler Relationship Specialty Start Date End Date J Luis Jacobson Mica (Historic) PCP - General Internal Medicine 07/19/10 Circuit Board Assembler Relationship Specialty Start Date End Date J Luis Jacobson (Historic) PCP - General Internal Medicine 07/19/10 11/07/22 Team Status: Inactive Member Role Status Dates Dr. Cholo Smith DO Primary Care Provider, Referrin g Provider Active Dennis Goode MIXER FOAM RUBBER, MIXER FOAM RUBBER-C Attending Provider Active Team Status: Inactive Member Role Status Dates Dr. Cholo Smith DO Primary Care Provider Active Dr. Santi Pelayo MD Emergency Provider Active Circuit Board Assembler Relationship Specialty Start Date End Date Cholo Smith DO [address] [place], [place] [id number] PCP - General Family Medicine 11/08/22 Circuit Board Assembler Relationship Specialty Start Date End Date Cholo Smith DO [address] [place], [place] [id number] PCP - General Family Medicine 11/08/22 Team Status: Inactive Member Role Status Dates Dr. Cholo Smith , DO Primary Care Provider, Referrin g Provider Active Tania Coffman PA, PA Attending Provider Active Team Status: Inactive Member Role Status Dates Dr. Cholo Smith , DO Primary Care Provider Active Dr. Santi Pelayo MD Attending Provider, Emergency Provider Active Team Status: Inactive Member Role Status Dates Dr. Cholo Smith , DO Primary Care Provider Active VERN MistryC Attending Provider, Referring Prov ider Active Circuit Board Assembler Relationship Specialty Start Date End Date Cholo Smith DO [address] [place], [place] [id number] [facility] Family Medicine 11/08/22 Team Status: Inactive Member Role Status Dates Dr. Cholo Smith , DO Primary Care Provider, Attendin g Provider Active Team Status: Inactive Member Role Status Dates Dr. Cholo Smith , DO Primary Care Provider, Referrin g Provider Active Dr. Reina Rashid , DO Attending Provider Activ e Team Status: Inactive Member Role Status Dates Dr. Cholo Smith , DO Primary Care Provider Active Dr. Reina Rashid , DO Attending Provider Activ e Team Status: Inactive Member Role Status Dates Dr. Cholo Smith DO Primary Care Provider Active Dr. Reina Rashid , DO Attending Provider, Refe rring Provider Active Team Status: Inactive Member Role Status Dates Dr. Cholo Smith DO Primary Care Provider, Referrin g Provider Active Lawson Parry CNM Attending Provider Active Team Status: Inactive Member Role Status Dates Dr. Cholo Smith DO Primary Care Provider, Referrin g Provider Active Dr. Piedad Moreno MD Attending Provider Active Team Status: Inactive Member Role Status Dates Dr. Cholo Smith DO Primary Care Provider Active Dr. Piedad Moreno MD Attending Provider, Referr ing Provider Active Circuit Board Assembler Relationship Specialty Start Date End Date Cholo Smith DO [address] [place] [address] PCP - General Family Medicine 11/08/22 Circuit Board Assembler Relationship Specialty Start Date End Date J Luis Jacobson (Historic) PCP - General Internal Medicine 07/19/10 11/07/22 Team Status: Active Member Role Status Dates Dr. Cholo Smith DO Primary Care Provider Active Start: May 27, 2024 Dr. Reina Rashid DO Attending Provider Activ e Start: May 27, 2024 Dr. Reina Rashid DO Referring Provider Activ e Start: May 27, 2024 Team Status: Inactive Member Role Status Dates Dr. Cholo Smith DO Primary Care Provider Active Start: October 07, 2024 End: October 07, 2024 Dr. Cholo Smith DO Referring Provider Active Start: October 07, 2024 End: October 07, 2024 Lawson Parry CNM Attending Provider Active S tart: October 07, 2024 End: October 07, 2024 Team Status: Inactive Member Role Status Dates Dr. Cholo Smith DO Primary Care Provider Active Start: October 11, 2024 End: October 12, 2024 Dr. Mary Jane Wade DO Attending Provider Active Start: October 11, 2024 End: October 12, 2024 Dr. Mary Jane Wade DO Emergency Provider Active Start: October 11, 2024 End: October 12, 2024 Team Status: Inactive Member Role Status Dates Dr. Cholo Smith DO Primary Care Provider Active Start: October 15, 2024 End: October 15, 2024 Dr. Cholo Smith DO Referring Provider Active Start: October 15, 2024 End: October 15, 2024 Dr. Piedad Moreno MD Attending Provider Active Start: October 15, 2024 End: October 15, 2024 Team Status: Inactive Member Role Status Dates Dr. Cholo Smith DO Primary Care Provider Active Start: October 15, 2024 End: October 15, 2024 Dr. Piedad Moreno MD Attending Provider Active Start: October 15, 2024 End: October 15, 2024 Dr. Piedad Moreno MD Referring Provider Active Start: October 15, 2024 End: October 15, 2024 Team Status: Inactive Member Role Status Dates Dr. Cholo Smith DO Primary Care Provider Active Start: November 07, 2024 End: November 07, 2024 Dr. Cholo Smith DO Referring Provider Active Start: November 07, 2024 End: November 07, 2024 Dr. Piedad Moreno MD Attending Provider Active Start: November 07, 2024 End: November 07, 2024 Team Status: Inactive Member Role Status Dates Dr. Cholo Smith DO Primary Care Provider Active Start: December 04, 2024 End: December 04, 2024 Dr. Cholo Smith DO Referring Provider Active Start: December 04, 2024 End: December 04, 2024 Dr. Reina Rashid DO Attending Provider Activ e Start: December 04, 2024 End: December 04, 2024 Team Status: Active Member Role/Relationship Status Dates Dr. Cholo Smith DO Primary Care Provider Active Team Status: Inactive Member Role/Relationship Status Dates Dr. Cholo Smith DO Primary Care Provider Active Start: September 10, 2024 End: September 10, 2024 Dr. Cholo Smith DO Referring Provider Active Start: September 10, 2024 End: September 10, 2024 Dr. Reina Rashid DO Attending Provider Activ e Start: September 10, 2024 End: September 10, 2024 Team Status: Inactive Member Role/Relationship Status Dates Dr. Cholo Smith DO Primary Care Provider Active Start: September 10, 2024 End: September 10, 2024 Dr. Reina Rashid DO Attending Provider Activ e Start: September 10, 2024 End: September 10, 2024 Dr. Reina Rashid DO Referring Provider Activ e Start: September 10, 2024 End: September 10, 2024 Team Status: Inactive Member Role/Relationship Status Dates Dr. Cholo Smith DO Primary Care Provider Active Start: October 07, 2024 End: October 07, 2024 Dr. Cholo Smith DO Referring Provider Active Start: October 07, 2024 End: October 07, 2024 Lawson Parry CNM Attending Provider Active S tart: October 07, 2024 End: October 07, 2024 Team Status: Inactive Member Role/Relationship Status Dates Dr. Cholo Smith DO Primary Care Provider Active Start: October 11, 2024 End: October 12, 2024 Dr. Mary Jane Wade DO Attending Provider Active Start: October 11, 2024 End: October 12, 2024 Dr. Mary Jane Wade DO Emergency Provider Active Start: October 11, 2024 End: October 12, 2024 Team Status: Inactive Member Role/Relationship Status Dates Dr. Cholo Smith DO Primary Care Provider Active Start: October 15, 2024 End: October 15, 2024 Dr. Cholo Smith DO Referring Provider Active Start: October 15, 2024 End: October 15, 2024 Dr. Piedad Moreno MD Attending Provider Active Start: October 15, 2024 End: October 15, 2024 Team Status: Inactive Member Role/Relationship Status Dates Dr. Cholo Smith DO Primary Care Provider Active Start: October 15, 2024 End: October 15, 2024 Dr. Piedad Moreno MD Attending Provider Active Start: October 15, 2024 End: October 15, 2024 Dr. Piedad Moreno MD Referring Provider Active Start: October 15, 2024 End: October 15, 2024 Team Status: Inactive Member Role/Relationship Status Dates Dr. Cholo Smith DO Primary Care Provider Active Start: November 07, 2024 End: November 07, 2024 Dr. Cholo Smith DO Referring Provider Active Start: November 07, 2024 End: November 07, 2024 Dr. Piedad oMreno MD Attending Provider Active Start: November 07, 2024 End: November 07, 2024 Team Status: Inactive Member Role/Relationship Status Dates Dr. Cholo Smith DO Primary Care Provider Active Start: December 04, 2024 End: December 04, 2024 Dr. Cholo Smith DO Referring Provider Active Start: December 04, 2024 End: December 04, 2024 Dr. Reina Rashid DO Attending Provider Activ e Start: December 04, 2024 End: December 04, 2024 Team Status: Inactive Member Role/Relationship Status Dates Dr. Cholo Smith DO Primary Care Provider Active Start: December 26, 2024 End: December 26, 2024 Dr. Reina Rashid DO Attending Provider Activ e Start: December 26, 2024 End: December 26, 2024 Dr. Reina Rashid DO Referring Provider Activ e Start: December 26, 2024 End: December 26, 2024 Team Status: Inactive Member Role/Relationship Status Dates Dr. Cholo Smith DO Primary Care Provider Active Start: January 03, 2025 End: January 03, 2025 Dr. Cholo Smith DO Referring Provider Active Start: January 03, 2025 End: January 03, 2025 Dr. Reina Rashid DO Attending Provider Activ e Start: January 03, 2025 End: January 03, 2025 Team Status: Inactive Member Role/Relationship Status Dates Dr. Cholo Smith DO Primary Care Provider Active Start: October 07, 2024 End: October 07, 2024 Dr. Cholo Smith DO Referring Provider Active Start: October 07, 2024 End: October 07, 2024 Lawson Parry CNM Attending Provider Active S tart: October 07, 2024 End: October 07, 2024 Team Status: Inactive Member Role/Relationship Status Dates Dr. Cholo Smith DO Primary Care Provider Active Start: October 11, 2024 End: October 12, 2024 Dr. Mary Jane Wade DO Attending Provider Active Start: October 11, 2024 End: October 12, 2024 Dr. Mary Jane Wade DO Emergency Provider Active Start: October 11, 2024 End: October 12, 2024 Team Status: Inactive Member Role/Relationship Status Dates Dr. Cholo Smith DO Primary Care Provider Active Start: October 15, 2024 End: October 15, 2024 Dr. Cholo Smith DO Referring Provider Active Start: October 15, 2024 End: October 15, 2024 Dr. Piedad Moreno MD Attending Provider Active Start: October 15, 2024 End: October 15, 2024 Team Status: Inactive Member Role/Relationship Status Dates Dr. Cholo Smith DO Primary Care Provider Active Start: October 15, 2024 End: October 15, 2024 Dr. Piedad Moreno MD Attending Provider Active Start: October 15, 2024 End: October 15, 2024 Dr. Piedad Moreno MD Referring Provider Active Start: October 15, 2024 End: October 15, 2024 Team Status: Inactive Member Role/Relationship Status Dates Dr. Cholo Smith DO Primary Care Provider Active Start: November 07, 2024 End: November 07, 2024 Dr. Chloo Smith DO Referring Provider Active Start: November 07, 2024 End: November 07, 2024 Dr. Piedad Moreno MD Attending Provider Active Start: November 07, 2024 End: November 07, 2024 Team Status: Inactive Member Role/Relationship Status Dates Dr. Cholo Smith DO Primary Care Provider Active Start: December 04, 2024 End: December 04, 2024 Dr. Cholo Smith DO Referring Provider Active Start: December 04, 2024 End: December 04, 2024 Dr. Reina Rashid DO Attending Provider Activ e Start: December 04, 2024 End: December 04, 2024 Team Status: Inactive Member Role/Relationship Status Dates Dr. Cholo Smith DO Primary Care Provider Active Start: December 26, 2024 End: December 26, 2024 Dr. Reina Rashid DO Attending Provider Activ e Start: December 26, 2024 End: December 26, 2024 Dr. Reina Rashid DO Referring Provider Activ e Start: December 26, 2024 End: December 26, 2024 Team Status: Inactive Member Role/Relationship Status Dates Dr. Cholo Smith DO Primary Care Provider Active Start: January 03, 2025 End: January 03, 2025 Dr. Cholo Smith DO Referring Provider Active Start: January 03, 2025 End: January 03, 2025 Dr. Reina Rashid DO Attending Provider Activ e Start: January 03, 2025 End: January 03, 2025 Team Status: Inactive Member Role/Relationship Status Dates Dr. Cholo Smith DO Primary Care Provider Active Start: January 13, 2025 End: January 13, 2025 Dr. Cholo Smith DO Referring Provider Active Start: January 13, 2025 End: January 13, 2025 Lawson Parry CNM Attending Provider Active S tart: January 13, 2025 End: January 13, 2025 Goals (unrecognized section and content) Goals may be documented in a n alternate sectionGoals may be documented in an alternate sectionGoals may be documented in an alternate sectionGoals may be documented in an alternate sectionGoals may be documented in an alternate sectionGoals may be documented in an alternate sectionGoals may be documented in an alternate sectionGoals may be documented in an alternate sectionGoals may be documented in an alternate sectionGoals may be documented in an alternate sectionGoals may be documented in an alternate sectionGoals may be documented in an alternate sectionGoals may be documented in an alternate sectionGoals may be documented in an alternate sectionGoals may be documented in an alternate section INFORMATION SOURCE (unrecogn ized section and content) DATE CREATED AUTHOR 05/13/2023 [facility] DATE CREATED AUTHOR AUTHOR'S ORGANIZ ATION 05/15/2023 [facility] DATE CREATED AUTHOR AUTHOR'S ORGANIZ ATION 12/31/2024 [facility] DATE CREATED AUTHOR AUTHOR'S ORGANIZ ATION 01/09/2025 [facility] FOR RECORDS PERTAINING TO PATIENTS WHO ARE OR HAVE BEEN ENROLLED IN A CHEMICAL DEPENDENCY/SUBSTANCEABUSE PROGRAM, SOME INFORMATION MAY BE OMITTED. This clinical summary was aggregated from multiple sources. Caution should be exercised in using it in the provision of clinical care. This summary normalizes information from multiple sources, and as a consequence, information in this document may materially change the coding, format and clinical context of patient data. In addition, data may be omitted in some cases. CLINICAL DECISIONS SHOULD BE BASED ON THE PRIMARY CLINICAL RECORDS. [facility]. provides no warranty or guarantee of the accuracy or completeness of information in this document.
== END | disposition home or self-care (01) ==
LOC: LAB 06:47
PROVIDERS: PCP Family Medicine; Referring Provider Advanced Practice Midwife; Visit Provider Advanced Practice Midwife
DX: Z13.1 Encounter for screening for diabetes mellitus (principal)
CPT/HCPCS: 36415; 82951; 82952

== ENCOUNTER → 2025-02-05 | Outpatient (CLI) | payer BC, SELFPAY ==
[2025-02-05 13:32] LABS: Glucose Challenge Gest 1H 50g 111 mg/dL (70-140)
== END | disposition home or self-care (01) ==
LOC: BWCLAB 11:26
PROVIDERS: PCP Family Medicine; Visit Provider Nurse Practitioner Women's Health
DX: O09.90 Supervision of high risk pregnancy, unspecified, unspecified trimester (principal); Z3A.00 Weeks of gestation of pregnancy not specified
CPT/HCPCS: 36415; 82950

== ENCOUNTER 2025-02-07 11:50 | Outpatient (CLI) | payer BC, SELFPAY ==
[2025-02-07] VITALS (11 sets, daily range): BP systolic 121–204; BP diastolic 67–86; PULSE 81–96; RESP 18; TEMP 35.9; BMI 39.6
[2025-02-07 12:42] LABS: Hematocrit 33.6 % (37-47); Hemoglobin 11.7 g/dL (12.0-15.0); Mean Corp Hgb Conc 34.8 g/dL (32-36); Mean Corpuscular Volume 85.7 fL (81-99); Mean Platelet Vol. 10.6 fl (6.2-12.0); Platelet Count 186 K/mm3 (150-450); RBC Distribution Width CV 12.6 % (11.6-14.6); RBC Distribution Width SD 38.9 fl (35.1-43.9); Red Blood Count 3.92 M/mm3 (4.2-5.4); White Blood Count 8.7 K/mm3 (4.4-11.0)
[2025-02-07 12:59] LABS: Color, Urine Yellow (Yellow); Glucose, Dipstick Normal (Normal); Ketone-Dipstick 5 mg/dl (Negative); Leukocyte Esterase-Dipstick Negative /ul (Negative); Nitrite-Dipstick Negative (Negative); Occult Blood-Urine Negative /ul (Negative); Protein-Dipstick 15 mg/dl (Negative); Specific Gravity, Urine 1.010 (1.002-1.030); Urine Bilirubin Dipstick Negative (Negative)
[2025-02-07 13:39] LABS: Creatinine, Urine (random) 50.20 mg/dL (28.00-217.00); Protein, Urine (Random) 8.7 mg/dL (0.0-12.0); Protein:Creat Ratio 174 mg/g CRE (0-200)
[2025-02-07 13:58] LABS: AST(SGOT) 13 U/L (<=31); Alanine Aminotransfer ALT/SGPT 8 U/L (<=34); Estimated Creatinine Clearance 177.60 ml/min (50-250); Uric Acid 4.4 mg/dL (2.6-6.0)
--- NOTE | 2025-02-07 14:33 | OB.TRI.HP_ITS ---
HPI - General HPI Narrative LAURA FERNANDEZ, is a 34 F who presents at 33.1 with contractions and headache this morning. headache greatly improved with tylenol and contractions upon arrival were already less intense and less frequent. no hx of PTL/PTB Maternal Data Information RAMSES Calculator Estimated Delivery Date Method Current WG Current Estimate 03/27/25 LMP (Certain) 33w 1d PFSH PFSH Medical History Seasonal allergies Hx of pre-eclampsia in prior , currently Superficial varicosities Pre-eclampsia Galactorrhea Allergic dermatitis Trochanteric bursitis of right hip Lymphocytic colitis Non-smoker History of steroid therapy Constipation Umbilical hernia Chronic constipation Dichorionic diamniotic twin gestation Anal fissure External hemorrhoids Home Medications ?Medication ?Instructions ?Recorded ?Last Taken ?Type multivitamin no.47-iron fum 27 1 cap PO DAILY pregnanc y 08/18/23 Unknown History mg-folate no.1 1 mg-dha 300 mg capsule (PNV-DHA) Diltiazem 2% / Lidocaine 5% #1 ea 06/24/24 Unknown Rx ointment (compound) polyethylene glycol 3350 17 4 g PO QDAY PRN 06/24/24 U nknown History gram/dose oral powder (Miralax) ferrous sulfate 325 mg (65 mg 325 mg PO Q OTHER DAY Unknown History iron) tablet folic acid 0.8 mg capsule 0.8 mg PO QDAY 08/06/24 Unkn own History famotidine 20 mg tablet (Pepcid) 20 mg PO BID 90 days #180 tabs 09/10/24 Unknown Rx hydroxyzine pamoate 25 mg capsule 25 mg PO QHS PRN itc marla #30 caps 01/03/25 Unknown Rx Allergy/AdvReac Type Severity Reaction Status Date / Time No Known Allergies Allergy Verified 02/07/25 13:44 Family History Mother Arthritis Hypertension Father Arthritis Hypertension CVA (cerebral vascular accident) Aunt Breast cancer Paternal Grandfather Heart disease Kidney disease Brother Hypertension Sister Hypertension Grandmother Breast cancer Paternal Diabetes Paternal Surgical History History of hip surgery Hx of umbilical hernia repair Hx of dilation and curettage History of hemorrhoidectomy (~05/2018) History of tonsillectomy Social History adopted: No household members: spouse and children number of children: 4 current occupational status: employed 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[employer] current occupational exposures/hazards: No pets and animals: Yes (Avoid litterbox) pets and animals: cat(s) and dog(s) history of recent travel: No sexually active: Yes Smoking Status: Never smoker alcohol intake: current alcohol intake frequency: a few times a month details: not while substance use type: does not use well-balanced diet: daily or most days caffeine: Yes Type: carbonated beverages Number of servings: 2 eating out: 1-3 times/week during the past year weight has: increased > 10 lbs what type of physical activity do you participate in: none suraj/evangelical: Anabaptism seatbelt use: always do you feel safe at home: Yes additional social history: [place] [employer] History 5 Elective abortions Hx Para 3 Spontaneous abortions 1 Hx # Term Pregnancies Ectopic pregnancies Hx # Pregnancies Multiple births 1 # of living children 4 Past Pregnancies Del. Date Name GA/Weeks Outcome Route Bth Weight Infant Gen Labor Lgth Anesthesia Del Locatn Provider FOB 04/05/18 Vinsen 41 live - full term 9#7oz Male 26 hrs epid ural [employer] Shey Madsen Alvarez 11/01/19 10 spontaneous 08/10/20 Lakisha 37 live - full term 5#14oz Female 10 HR epid ural [employer] Marin Pino 08/10/20 [place] 37 live - full term 6#4oz Male 10 HR epid ural [employer] [facility] Marin Pino 03/19/24 Elaine 39 live - full term 8lbs 2oz Female [employer] [facility] Dr. Gleason Delivery Date: 04/05/18 Last Updated by: Merna Bermeo IOL post dates Delivery Date: 11/01/19 Last Updated by: Merna Bermeo D&C, blighted Ovum Delivery Date: 08/10/20 Last Updated by: Merna Bermeo IOL @ 37wks Twins, Gestational HTN/pre-e Delivery Date: 08/10/20 Last Updated by: Merna Bermeo IOL @ 37 weeks twins, gestational HTN, pre e Delivery Date: 03/19/24 Last Updated by: Lauren Osborn AMA, gestational hypertension Visit Details Expected Delivery Route/Plan Labor Preferences- CB/BF classes: [] labor support person: [] labor intervention preferences: [] pain management options preferred: [] cut cord/dad catch: [] : [] PP control planned: [] discussed possible routes of delivery and associated risks: [] special requests: [] Plans Covid status: [] Flu vaccine: [] Tdap vaccine: [] Rhogam: [] LARC form signed: [] Problem list reviewed and updated with the most current plan of care details and appropriate orders placed. Relevant counseling for the gestational age provided. Continue routine care and follow up unless otherwise noted in visit notes/problem list details OB Flowsheet Initial Weight: 196 lb Date -?-?-?-?-?-?-?-?-?-?-?-?- EGA Weight BP Urine Prot -?-?-?-?-?-?-?-?-?-?-?-?- Glucose FHR FuHt Pres Dilation -?-?-?-?-?-?-?-?-?-?-?-?- Effaced St Visit Note 08/13/24 -?-?-?-?-?-?-?-?-?-?-?-?- 7w 5d 193 lb 6 oz (-2 lb 10 oz) 139/84 -?-?-?-?-?-?-?-?-?-?-?-?- 165 -?-?-?-?-?-?-?-?-?-?-?-?- JV- CRL consiste nt with LMP. She does have a 1 cm NANCY near the cervix. pelvic rest encouraged. RTO in 2 weeks for follow up. pt has inclusion cyst that was drained at her last delivery and wants drained again today. JV- CRL consistent with LMP. desires NIPT. She does have a 1 cm NANCY near the cervix. pelvic rest encouraged. RTO in 2 weeks for follow up. pt has inclusion cyst that was drained at her last delivery and wants drained again today. 08/26/24 -?-?-?-?-?-?-?-?-?-?-?-?- 9w 4d 194 lb 8 oz (-1 lb 8 oz) 137/89 Negative -?-?-?-?-?-?-?-?-?-?-?-?- Negative 180 -?-?-?-?-?-?-?-?-?-?-?-?- KW- no vb/cramprey ng. discussed starting atb and pt would like to wait to start this because she gets recurrent yeast infections with atb. timo NANCY noted on US. will RTO in 2 weeks for follow up appt. 09/10/24 -?-?-?-?-?-?-?-?-?-?-?-?- 11w 5d 196 lb 2 oz (+2 oz) 136/85 Negative -?-?-?-?-?-?-?-?-?-?-?-?- Negative 155 -?-?-?-?-?-?-?-?-?-?-?-?- JV- no complaint s today. blood work done. 10/07/24 -?--?-?-?-?-?-?-?-?-?-?-?- 15w 4d 200 lb 2 oz (+4 lb 2 oz) 138/85 Negative -?-?-?-?-?-?-?-?-?-?-?-?- Negative 149 -?-?-?-?-?-?-?-?-?-?-?-?- KW- no vb/lof/ct x. cyst is bothersome again. [facility] scheduled KW- no vb/lof/ctx. cyst is b othersome again discussed with . [facility] scheduled 10/15/24 -?-?-?-?-?-?-?-?-?--?-?-?- 16w 5d 200 lb 6 oz (+4 lb 6 oz) 136/86 Negative -?-?-?-?-?-?-?-?-?-?-?-?- Negative 135 -?-?-?-?-?-?-?-?-?-?-?-?- - had episode of light bleeding yeast seen in ER hasn't been treated yet. urine culture and vaginal culture sent 11/07/24 -?-?-?-?-?-?-?-?-?-?-?-?- 20w 0d 205 lb 8 oz (+9 lb 8 oz) 117/77 Negative -?-?-?-?-?-?-?-?-?-?-?-?- Negative 145 -?-?-?-?-?-?-?-?-?-?-?-?- SM- no vb lof cr ampingboy on US SM- no vb lof cramping boy o n US 12/04/24 -?-?-?-?-?-?-?-?-?-?-?-?- 23w 6d 210 lb 8 oz (+14 lb 8 oz) 130/77 Negative -?-?-?-?-?-?-?-?--?-?-?-?- Negative 150 -?-?-?-?-?-?-?-?-?-?-?-?- JV- no lof, vagi nal bleeding, or dec fm.normal antomy scan. plan monthly growth scans for obesity and ama. glucola next visit. 01/03/25 -?-?-?-?-?-?-?-?-?-?-?-?- 28w 1d 211 lb 6 oz (+15 lb 6 oz) 138/82 -?-?-?-?-?-?-?-?-?-?-?-?- 152 -?-?-?-?-?-?-?-?-?-?-?-?- JV- pt diagnosed with pups but also has cutaneous candidiasis 01/13/25 -?-?-?-?-?-?-?-?-?-?-?-?- 29w 4d 215 lb 8 oz (+19 lb 8 oz) 126/87 Negative -?-?-?-?-?-?-?-?-?-?-?-?- Negative 130 31 -?-?-?-?-?-?-?-?-?-?-?-?- KW- no vb/lof/ct x. good fm. has 3 hour glucose tomorrow. 01/29/25 -?-?-?-?-?-?-?-?-?-?-?-?- 31w 6d 217 lb 8 oz (+21 lb 8 oz) 129/78 Negative -?-?-?-?-?-?-?-?-?-?-?-?- Negative 146 32 -?-?-?-?-?-?-?-?-?-?-?-?- JV- still has a rash and twin isela saw her and thought it was just related dermatitis. not pupps. larc done today. likely plan for 38 weekIOL due to gestational hypertension and sooner delivery if bp's are higher or if develops proteinuria. she still would like the vaginal cyst removed after delivery . also wants a tubal at 10 weeks so we can always do a little posterior repair and removal of the cyst at the time of the tubal. NST FHR Rate Baby A Baseline: 130 Variability:: Moderate Accelerations:: 15 x 15 Decelerations:: None NST Reactive:: Yes FHR Category:: Category I Uterine Activity:: irregular q4-12 Assessment & Plan (1) Contraction, Romero Osman: COMMENT: fingertip per nursing dilated with less intense/frequency in ctx. (2) Hx of pre-eclampsia in prior , currently : COMMENT: negative labs . bp stable in WP. headache resolved. PLAN: Plan Patient presents for triage evaluation secondary to contractions. FHT: Moderate variability reactive no decelerations category I tracing [place]: irregular Contractions Assessment and plan: Reactive NST, reassuring maternal and status patient discharged to home to follow-up in office.. See problem list details for additional plan information. Charges/Coding Procedures Urinary/Genital 52xxx-59xxx: 16741-27 non-stress test Interp
--- NOTE | 2025-02-07 14:33 | OB.TRI.HP_ITS ---
HPI - General HPI Narrative LAURA FERNANDEZ, is a 34 F who presents at 33.1 with contractions and headache this morning. headache greatly improved with tylenol and contractions upon arrival were already less intense and less frequent. no hx of PTL/PTB Maternal Data Information RAMSES Calculator Estimated Delivery Date Method Current WG Current Estimate 03/27/25 LMP (Certain) 33w 1d PFSH PFSH Medical History Seasonal allergies Hx of pre-eclampsia in prior , currently Superficial varicosities Pre-eclampsia Galactorrhea Allergic dermatitis Trochanteric bursitis of right hip Lymphocytic colitis Non-smoker History of steroid therapy Constipation Umbilical hernia Chronic constipation Dichorionic diamniotic twin gestation Anal fissure External hemorrhoids Home Medications ?Medication ?Instructions ?Recorded ?Last Taken ?Type multivitamin no.47-iron fum 27 1 cap PO DAILY pregnanc y 08/18/23 Unknown History mg-folate no.1 1 mg-dha 300 mg capsule (PNV-DHA) Diltiazem 2% / Lidocaine 5% #1 ea 06/24/24 Unknown Rx ointment (compound) polyethylene glycol 3350 17 4 g PO QDAY PRN 06/24/24 U nknown History gram/dose oral powder (Miralax) ferrous sulfate 325 mg (65 mg 325 mg PO Q OTHER DAY Unknown History iron) tablet folic acid 0.8 mg capsule 0.8 mg PO QDAY 08/06/24 Unkn own History famotidine 20 mg tablet (Pepcid) 20 mg PO BID 90 days #180 tabs 09/10/24 Unknown Rx hydroxyzine pamoate 25 mg capsule 25 mg PO QHS PRN itc marla #30 caps 01/03/25 Unknown Rx Allergy/AdvReac Type Severity Reaction Status Date / Time No Known Allergies Allergy Verified 02/07/25 13:44 Family History Mother Arthritis Hypertension Father Arthritis Hypertension CVA (cerebral vascular accident) Aunt Breast cancer Paternal Grandfather Heart disease Kidney disease Brother Hypertension Sister Hypertension Grandmother Breast cancer Paternal Diabetes Paternal Surgical History History of hip surgery Hx of umbilical hernia repair Hx of dilation and curettage History of hemorrhoidectomy (~05/2018) History of tonsillectomy Social History adopted: No household members: spouse and children number of children: 4 current occupational status: employed 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 [employer] current occupational exposures/hazards: No pets and animals: Yes (Avoid litterbox) pets and animals: cat(s) and dog(s) history of recent travel: No sexually active: Yes Smoking Status: Never smoker alcohol intake: current alcohol intake frequency: a few times a month details: not while substance use type: does not use well-balanced diet: daily or most days caffeine: Yes Type: carbonated beverages Number of servings: 2 eating out: 1-3 times/week during the past year weight has: increased > 10 lbs what type of physical activity do you participate in: none suraj/tenriism: Alevism seatbelt use: always do you feel safe at home: Yes additional social history: [place] [employer] History 5 Elective abortions Hx Para 3 Spontaneous abortions 1 Hx # Term Pregnancies Ectopic pregnancies Hx # Pregnancies Multiple births 1 # of living children 4 Past Pregnancies Del. Date Name GA/Weeks Outcome Route Bth Weight Infant Gen Labor Lgth Anesthesia Del Locatn Provider FOB 04/05/18 Vinsen 41 live - full term 9#7oz Male 26 hrs epid ural [employer] [facility] Shey Madsen Alvarez 11/01/19 10 spontaneous 08/10/20 Lakisha 37 live - full term 5#14oz Female 10 HR epid ural [facility] Marin Pino 08/10/20 [place] 37 live - full term 6#4oz Male 10 HR epid ural [facility] Marin Pino 03/19/24 Elaine 39 live - full term 8lbs 2oz Female [facility] Dr. Gleason Delivery Date: 04/05/18 Last Updated by: Merna Bermeo IOL post dates Delivery Date: 11/01/19 Last Updated by: Merna Bermeo D&C, blighted Ovum Delivery Date: 08/10/20 Last Updated by: Merna Bermeo IOL @ 37wks Twins, Gestational HTN/pre-e Delivery Date: 08/10/20 Last Updated by: Merna Bermeo IOL @ 37 weeks twins, gestational HTN, pre e Delivery Date: 03/19/24 Last Updated by: Lauren Osborn AMA, gestational hypertension Visit Details Expected Delivery Route/Plan Labor Preferences- CB/BF classes: [] labor support person: [] labor intervention preferences: [] pain management options preferred: [] cut cord/dad catch: [] : [] PP control planned: [] discussed possible routes of delivery and associated risks: [] special requests: [] Plans Covid status: [] Flu vaccine: [] Tdap vaccine: [] Rhogam: [] LARC form signed: [] Problem list reviewed and updated with the most current plan of care details and appropriate orders placed. Relevant counseling for the gestational age provided. Continue routine care and follow up unless otherwise noted in visit notes/problem list details OB Flowsheet Initial Weight: 196 lb Date -?-?-?-?-?-?-?-?-?-?-?-?- EGA Weight BP Urine Prot -?-?-?-?-?-?-?-?-?-?-?-?- Glucose FHR FuHt Pres Dilation -?-?-?-?-?-?-?-?-?-?-?-?- Effaced St Visit Note 08/13/24 -?-?-?-?-?-?-?-?-?-?-?-?- 7w 5d 193 lb 6 oz (-2 lb 10 oz) 139/84 -?-?-?-?-?-?-?-?-?-?-?-?- 165 -?-?-?-?-?-?-?-?-?-?-?-?- JV- CRL consiste nt with LMP. She does have a 1 cm NANCY near the cervix. pelvic rest encouraged. RTO in 2 weeks for follow up. pt has inclusion cyst that was drained at her last delivery and wants drained again today. JV- CRL consistent with LMP. desires NIPT. She does have a 1 cm NANCY near the cervix. pelvic rest encouraged. RTO in 2 weeks for follow up. pt has inclusion cyst that was drained at her last delivery and wants drained again today. 08/26/24 -?-?-?-?-?-?-?-?-?-?-?-?- 9w 4d 194 lb 8 oz (-1 lb 8 oz) 137/89 Negative -?-?-?-?-?-?-?-?-?-?-?-?- Negative 180 -?-?-?-?-?-?-?-?-?-?-?-?- KW- no vb/cramprey ng. discussed starting atb and pt would like to wait to start this because she gets recurrent yeast infections with atb. timo NANCY noted on US. will RTO in 2 weeks for follow up appt. 09/10/24 -?-?-?-?-?-?-?-?-?-?-?-?- 11w 5d 196 lb 2 oz (+2 oz) 136/85 Negative -?-?-?-?-?-?-?-?-?-?-?-?- Negative 155 -?-?-?-?-?-?-?-?-?-?-?-?- JV- no complaint s today. blood work done. 10/07/24 -?--?-?-?-?-?-?-?-?-?-?-?- 15w 4d 200 lb 2 oz (+4 lb 2 oz) 138/85 Negative -?-?-?-?-?-?-?-?-?-?-?-?- Negative 149 -?-?-?-?-?-?-?-?-?-?-?-?- KW- no vb/lof/ct x. cyst is bothersome again. [facility] scheduled KW- no vb/lof/ctx. cyst is b othersome again discussed with . [facility] scheduled 10/15/24 -?-?-?-?-?-?-?-?-?--?-?-?- 16w 5d 200 lb 6 oz (+4 lb 6 oz) 136/86 Negative -?-?-?-?-?-?-?-?-?-?-?-?- Negative 135 -?-?-?-?-?-?-?-?-?-?-?-?- - had episode of light bleeding yeast seen in ER hasn't been treated yet. urine culture and vaginal culture sent 11/07/24 -?-?-?-?-?-?-?-?-?-?-?-?- 20w 0d 205 lb 8 oz (+9 lb 8 oz) 117/77 Negative -?-?-?-?-?-?-?-?-?-?-?-?- Negative 145 -?-?-?-?-?-?-?-?-?-?-?-?- SM- no vb lof cr ampingboy on US SM- no vb lof cramping boy o n US 12/04/24 -?-?-?-?-?-?-?-?-?-?-?-?- 23w 6d 210 lb 8 oz (+14 lb 8 oz) 130/77 Negative -?-?-?-?-?-?-?-?--?-?-?-?- Negative 150 -?-?-?-?-?-?-?-?-?-?-?-?- JV- no lof, vagi nal bleeding, or dec fm.normal antomy scan. plan monthly growth scans for obesity and ama. glucola next visit. 01/03/25 -?-?-?-?-?-?-?-?-?-?-?-?- 28w 1d 211 lb 6 oz (+15 lb 6 oz) 138/82 -?-?-?-?-?-?-?-?-?-?-?-?- 152 -?-?-?-?-?-?-?-?-?-?-?-?- JV- pt diagnosed with pups but also has cutaneous candidiasis 01/13/25 -?-?-?-?-?-?-?-?-?-?-?-?- 29w 4d 215 lb 8 oz (+19 lb 8 oz) 126/87 Negative -?-?-?-?-?-?-?-?-?-?-?-?- Negative 130 31 -?-?-?-?-?-?-?-?-?-?-?-?- KW- no vb/lof/ct x. good fm. has 3 hour glucose tomorrow. 01/29/25 -?-?-?-?-?-?-?-?-?-?-?-?- 31w 6d 217 lb 8 oz (+21 lb 8 oz) 129/78 Negative -?-?-?-?-?-?-?-?-?-?-?-?- Negative 146 32 -?-?-?-?-?-?-?-?-?-?-?-?- JV- still has a rash and twin isela saw her and thought it was just related dermatitis. not pupps. larc done today. likely plan for 38 weekIOL due to gestational hypertension and sooner delivery if bp's are higher or if develops proteinuria. she still would like the vaginal cyst removed after delivery . also wants a tubal at 10 weeks so we can always do a little posterior repair and removal of the cyst at the time of the tubal. NST FHR Rate Baby A Baseline: 130 Variability:: Moderate Accelerations:: 15 x 15 Decelerations:: None NST Reactive:: Yes FHR Category:: Category I Uterine Activity:: irregular q4-12 Assessment & Plan (1) Contraction, Romero Osman: COMMENT: fingertip per nursing dilated with less intense/frequency in ctx. (2) Hx of pre-eclampsia in prior , currently : COMMENT: negative labs . bp stable in WP. headache resolved. PLAN: Plan Patient presents for triage evaluation secondary to contractions. FHT: Moderate variability reactive no decelerations category I tracing [place]: irregular Contractions Assessment and plan: Reactive NST, reassuring maternal and status patient discharged to home to follow-up in office.. See problem list details for additional plan information. Charges/Coding Procedures Urinary/Genital 52xxx-59xxx: 53775-15 non-stress test Interp
== END 2025-02-07 14:39 | disposition home or self-care (01) ==
LOC: WPOUT 11:54 → WP 11:54
PROVIDERS: PCP Family Medicine; Referring Provider Registered Nurse; Visit Provider Registered Nurse
DX: O47.03 False labor before 37 completed weeks of gestation, third trimester (principal); O99.891 Other specified diseases and conditions complicating pregnancy; R51.9 Headache, unspecified; Z3A.33 33 weeks gestation of pregnancy; O13.3 Gestational [pregnancy-induced] hypertension without significant proteinuria, third trimester
CPT/HCPCS: 59050; 81002; 82565; 82570; 84156; 84450; 84460; 84550; 85027; 87086; 99221; G0378

== ENCOUNTER 2025-02-14 21:28 | Outpatient (CLI) | payer BC, SELFPAY ==
--- OUTSIDE RECORDS SUMMARY | 2025-02-14 21:35 | XMS RPT_ITS | CCD ---
Author Organization [facility] Care Team Providers Care Sheriff'S Officer Name Role Phone J Luis Jacobson (Historic) Primary Care Prov ider Dr. Cholo Smith Primary Care Provider [phone] Cholo Smith Referring Provider Soni, Dr. Nava Attending Provider Dr. Dane Galvan Attending Provider [phone] August Thomas Attending Provider [phone] J Luis Jacobson (Historic) Primary Care Prov ider J Luis Jacobson (Historic) Primary Care Prov ider J Luis Jacobson (Historic) Primary Care Prov ider Dr. Cholo Smith Primary Care Provider Dr. Cholo Smith Referring Provider IMAN Luis Attending Provider Dr. Cholo Smith Primary Care Provider [phone] Dr. Cholo Smith Referring Provider IMAN Luis Attending Provider [phone] J Luis Jacobson (Historic) Primary Care Prov ider Dr. Cholo Smith Primary Care Provider [phone] Dr. Cholo Smith Referring Provider Roof COLLAR FUSER, COLLAR FUSER-Ernestina Christianson Attending Provider Sarah DO, Cholo A Primary Care Provider Dr. Cholo Smith Primary Care Provider [phone] Dr. Cholo Smith Referring Provider IMAN Loaiza Attending Provider INDIRA, J LUIS NINO (HISTORIC) Primary Care U navailable CHICORELLI, CATHRYN ARVIZU Attending Unavailab le CHICORELLI, CATHRYN ARVIZU Attending Unavailab le ZEWAIL, J LUIS NINO (HISTORIC) Primary Care U navailable CHICORELLI, CATHRYN ARVIZU Attending Unavailab le ZEWAIL, J LUIS NINO (HISTORIC) Primary Care U navailable SARAH, CHOLO A Primary Care Unavailable REGNEAL, KELLY Attending Unavailable SARAH, CHOLO A Primary Care Unavailable CHICORELLI, CATHRYN ARVIZU Attending Unavailab PIERRE De La Rosa Referring Unavailable SARAH, CHOLO A Primary Care Unavailable CHICORELLI, CATHRYN ARVIZU Attending Unavailab le FABIOLAPIERRE Attending Unavailable SARAH, CHOLO A Primary Care Unavailable ZEWAIL, J LUIS NINO (HISTORIC) Primary Care U navailable CHICORELLI, CATHRYN ARVIZU Attending Unavailab le CHICORELLI, CATHRYN ARVIZU Referring Unavailab le ZEWAIL, J LUIS NINO [...] Dr. Cholo Smith Primary Care Provider [phone] Cholo Smith Referring Provider IMAN Loaiza Attending Provider IMAN Luis Attending Provider Dr. Cholo Smith Primary Care Provider [phone] Dr. Cholo Smith Referring Provider Dr. Reina Rashid Attending Provider Dr. Cholo [...] Referring Provider [phone] Soni JOSHI, Dr. Naav Attending Provider Sheri JOSHI, Dr. Hinton Attending Provider [phone] Mary Jane Wade DO Emergency Provider Josh FORD, Dr. Herbert Attending Provider Josh FORD, Dr. Herbert Referring Provider Sarah JOSHI, Dr. Branham Primary Care Provider [phone] Sarah , Dr. Branham Referring Provider [phone] Sarah JOSHI, Dr. Branham Primary Care Provider [phone] Sarah JOSHI, Dr. Branham Referring Provider [phone] Park Romero DO, Dr. Huang Attending Provider Park Romero DO, Dr. Huang Referring Provider Lawson Parry CNM Attending Provider [phone] Sarah JOSHI, Dr. Branham Primary Care Provider [phone] Sarah JOSHI, Dr. Branham Referring Provider [phone] Romero DO, Dr. Huang Attending Provider Park Romero DO, Dr. Huang Referring Provider Lawson Parry CNM Referring Provider [phone] LAWSON PARRY Referring Unavailable SARAHCHOLO WELLS A Primary Care Unavailable JEREMIAH MANNING Attending Unavailable REINA GARCIA Referring Unavailab le SARAH, CHOLO A Primary Care Unavailable JEREMIAH MANNING Attending Unavailable REINA GARCIA Referring Unavailab le SARAH, CHOLO A Primary Care Unavailable AMINA ESTRADA Attending Unavailable PURA KENDALL Attending Unavailable REINA GARCIA Referring Unavailab le SARAHCHOLO WELLS A Primary Care Unavailable REINA GARCIA Referring Unavailab le KONRAD MAS Attending Unavailable CHOLO SMITH A Primary Care Unavailable REINA GARCIA Referring Unavailab le BRIANNE MULLINS Attending Unavailable CHOLO SMITH A Primary Care Unavailable Sarah JOSHI, Dr. Branham Primary Care Provider [phone] Sarah JOSHI, Dr. Branham Referring Provider [phone] Lawson Parry CNM Attending Provider [phone] Calvin COLLAR FUSER-C, Danya Attending Provider Manish CNM, Linda Attending Provider Hammond CNM, Linda Referring Provider Hammond CNM, Linda Other Provider [phone] Vandleon Velmaria elena Reina Admitting Unavailabl e Vande Velde, Reina Attending Unavailabl e Sarah, Cholo Primary Care Unavailable Piedad Moreno Referring Unavailable Hammond, Linda Referring Unavailable HammondLinda Attending Unavailable Sarah, Cholo Primary Care Unavailable Vande Velde, Reina Attending Unavailabl e Sarah, Cholo Primary Care Unavailable Sarah, Cholo Referring Unavailable Vande Velde, Reina Referring Unavailabl e Vande Velde, Reina Attending Unavailabl e Vande Velde, Reina Admitting Unavailabl e Sarah, Cholo Primary Care Unavailable Sarah, Cholo Referring Unavailable Elijah Shafer Attending Unavailable Sarah, Cholo Primary Care Unavailable Sarah, Cholo Referring Unavailable Reina Varela Attending Unavailable Sarah, Cholo Primary Care Unavailable Vande Velde, Reina Attending Unavailabl e Vande Velde, Reina Referring Unavailabl e Sarah, Cholo Primary Care Unavailable Vande Velde, Reina Referring Unavailabl e Vande Velde, Reina Attending Unavailabl e Sarah, Cholo Primary Care Unavailable Vande Velde, Reina Referring Unavailabl e Vande Velde, Reina Attending Unavailabl e Sarah, Cholo Primary Care Unavailable Vande Velde, Reina Referring Unavailabl e Vande Velde, Reina Attending Unavailabl e Sarah, Cholo Primary Care Unavailable Lawsno Parry Referring Unavailable Lawson Parry Attending Unavailable Sarah, Cholo Primary Care Unavailable Vande Velde, Reina Attending Unavailabl e Sarah, Cholo Primary Care Unavailable Lawson Parry Referring Unavailable Lawson Parry Attending Unavailable Sarah, Cholo Primary Care Unavailable Sarah, Cholo Primary Care Unavailable Mary Jane Wade Attending Unavailable Sarah, Cholo Primary Care Unavailable Piedad Moreno Attending Unavailable Piedad Moreno Referring Unavailable Vande Velde, Reina Attending Unavailabl e Vande Velde, Reina Referring Unavailabl e Sarah, Cholo Primary Care Unavailable Sarah, Cholo Referring Unavailable Vande Velde Reina Attending Unavailabl e Sarah, Cholo Primary Care Unavailable Friend, Elijah Referring Unavailable Friend, Elijah Attending Unavailable Sarah, Cholo Primary Care Unavailable Sarah, Cholo Referring Unavailable Lisseth Jackson Attending Unavailable Sarah, Cholo Primary Care Unavailable Sarah, Cholo Referring Unavailable Vande VeldeReina Attending Unavailabl e Sarah, Cholo Primary Care Unavailable Vande Velde, Reina Attending Unavailabl e Sarah, Cholo Primary Care Unavailable Sarah, Cholo Referring Unavailable Sarah, Cholo Referring Unavailable Vande VeldeReina Attending Unavailabl e Sarah, Cholo Primary Care Unavailable Vande VeldeReina Attending Unavailabl e Sarah, Cholo Referring Unavailable Sarah, Cholo Primary Care Unavailable Sarah, Cholo Referring Unavailable Lawson Parry Attending Unavailable Sarah, Cholo Primary Care Unavailable Sarah, Cholo Primary Care Unavailable Sarah, Cholo Referring Unavailable Lawson Parry Attending Unavailable Vande Reina Romero Attending Unavailabl e Sarah, Cholo Primary Care Unavailable Sarah, Cholo Referring Unavailable Sarah, Cholo Referring Unavailable Friend, Elijah Attending Unavailable Friend, Elijah Consulting Unavailable Sarah, Cholo Primary Care Unavailable Danya Simpson Attending Unavailable Vande VeldeReina Consulting Unavailabl e Vande Velde, Reina Admitting Unavailabl e Sarah, Cholo Primary Care Unavailable Piedad Moreno Referring Unavailable Piedad Moreno Attending Unavailable Piedad Moreno Consulting Unavailable SaúlanthonyPiedad Admitting Unavailable Hammond, Linda Referring Unavailable HammondLinda Attending Unavailable Sarah, Cholo Primary Care Unavailable Hammond, Linda Consulting Unavailable Sarah, Cholo Primary Care Unavailable Piedad Moreno Attending Unavailable Piedad Moreno Consulting Unavailable SaúlanthonyPiedad Referring Unavailable Vande Velde, Reina Consulting Unavailabl e Sarah, Cholo Primary Care Unavailable Piedad Moreno Attending Unavailable SaúlanthonyPiedad Referring Unavailable Sarah, Cholo Primary Care Unavailable Piedad Moreno Attending Unavailable Lawson Parry Attending Unavailable Sarah, Cholo Referring Unavailable Sarah, Cholo Primary Care Unavailable Vande Reina Romero Attending Unavailabl e Sarah, Cholo Primary Care Unavailable Sarah, Cholo Referring Unavailable Sarah, Cholo Primary Care Unavailable Sarah, Cholo Referring Unavailable Lawson Parry Attending Unavailable Sarah, Cholo Primary Care Unavailable Sarah, Cholo Referring Unavailable Chay Luis Attending Unavailable Vande VeldeReina Attending Unavailabl e Sarah, Cholo Primary Care Unavailable Sarah, Cholo Referring Unavailable Sarah, Cholo Referring Unavailable Piedad Moreno Attending Unavailable Sarah, Cholo Primary Care Unavailable Sarah, Cholo Primary Care Unavailable Sarah, Cholo Referring Unavailable Piedad Moreno Attending Unavailable Sarah, Cholo Primary Care Unavailable Sarah, Cholo Referring Unavailable Piedad Moreno Attending Unavailable Sarah, Cholo Primary Care Unavailable Sarah, Cholo Referring Unavailable Lawson Parry Attending Unavailable Richarde Reina Romero Attending Unavailabl e Sarah, Cholo Primary Care Unavailable Sarah, Cholo Referring Unavailable Vande Velmaria elena, Reina Attending Unavailabl e Sarah, Cholo Primary Care Unavailable Sarah, Cholo Referring Unavailable Elijah Shafer Attending Unavailable Sarah, Cholo Referring Unavailable Sarah, Cholo Primary Care Unavailable Sarah, Cholo Referring Unavailable Ivett Marquez Attending Unavailable Sarah, Cholo Primary Care Unavailable Vande Addisonde, Reina Attending Unavailabl e Vande Velde, Reina Referring Unavailabl e Sarah, Cholo Primary Care Unavailable Sarah, Cholo Primary Care Unavailable Lawson Parry Attending Unavailable Lawson Parry Referring Unavailable Sarah, Cholo Primary Care Unavailable Danya Simpson Attending Unavailable Vande Velde, Reina Attending Unavailabl e Vande Velde, Reina Referring Unavailabl e Sarah, Cholo Primary Care Unavailable Ivett Marquez Referring Unavailable Ivett Marquez Attending Unavailable Sarah, Cholo Primary Care Unavailable Lisseth Jackson Referring Unavailable Lisseth Jackson Attending Unavailable Sarah, Cholo Primary Care Unavailable Dr. Cholo Smith DO Primary Care Provider Dr. Cholo Smith DO Referring Provider [phone] Dr. Piedad Moreno MD Attending Provider Medications Current Medications Medication Drug Class(es) Dates Sig (Normalized) Sig (Original) Diltiazem 2% / Lidocaine 5% Ointment (Compound) ointment (11 sources) Start: 06-24-2024 Diltiazem 2% / Lidocaine [...] a day famotidine 20 mg oral tablet (11 sources) Histamine-2 Receptor Antagonist Start: 09-10-2024 take 1 tablet by mouth twice daily Famotidine (Pepcid) 20 mg tablet Active 20 mg PO TWICE A DAY 180 90 4 September 10, 2024 1:00am ferrous sulfate 325 mg oral tablet (20 sources) Start: 08-06-2024 take 1 tablet by [...] 8:54am hydrOXYzine pamoate 25 mg oral capsule (6 sources) Antihistamine Start: 01-03-2025 take 1 capsule [...] 15 mg by mouth once daily. Multivit 29-Cdih-Iutgoz 1-Dha (Pnv-Dha) 27 mg iron-1 mg -300 mg capsule (14 sources) Start: 08-18-2023 Multivit 09-Hnup-Lqwkxa 1-Dha (Pnv-Dha) 27 mg iron-1 mg -300 [...] above: Take by mouth. polyethylene glycol 3350 34752 mg powder for oral solution (20 sources) [...] g by mouth o nce daily. Vitamin S86-Zyuiu Acid (10 sources) Start: 02-23-2021 take 1 tablet by mouth once daily Vitamin I88-Lophv Acid Active 1 TABLET PO DAILY February 22, 2021 11:00pm Start: 02-23-2021 take 1 tablet by daniela th once daily Vitamin I13-Iehqj Acid Active 1 TABLET PO DAILY February [...] for pain. acyclovir 400 mg oral tablet (20 sources) Herpesvirus Nucleoside Analog DNA Polymerase Inhibitor, Herpes Simplex Virus Nucleoside Analog DNA Polymerase Inhibitor, Herpes Zoster Virus Nucleoside Analog DNA Polymerase Inhibitor Start: 04-04-20 End: 04-07-20 take 1 tablet by mouth three times daily Acyclovir (Zovirax) 400 MG tablet Discontinued 400 mg PO THREE TIMES A DAY April 04, 2018 12:00am April 07, 2018 5:08am prevention amoxicillin 500 mg oral tablet (11 sources) Penicillin-class Antibacterial Start: 08-26-19 End: 09-24-19 take 1 tablet by mouth every six hours Amoxicillin 500 mg tablet Discontinued 500 mg PO EVERY 6 HOURS 112 28 0 August 26, 2024 1:00am September 22, 2024 12:00am September 23, 2024 12:12am amoxicillin 875 mg / clavulanate 125 mg oral tablet (20 sources) Penicillin-class Antibacterial Start: 05-28-20 End: 06-07-20 Amoxicillin-Pot Clavulanate (Augmentin) 875-125 mg tablet Discontinued 1 {tbl} PO Q12H 20 10 0 May 28, 2021 1:00am June 06, 2021 1:00am June 07, 2021 1:01am Acute sinusitis, unspecified azithromycin 250 mg oral tablet (20 sources) Macrolide Antimicrobial Start: 02-09-20 End: 05-30-20 Azithromycin (Zithromax Z-Jose) 250 mg tablet Discontinued 0 PO .COMPLEX 6 0 February 18, 2023 12:00am May 30, 2023 10:35am For 250 mg dose pack: take 500 mg today (day 1), then 250 mg for 4 days (days 2-5) PO biotin 1 mg oral capsule (20 sources) Start: 04-26-20 End: 07-26-19 take 1 capsule by mouth once daily Biotin 1 mg Capsule Discontinued 1 mg PO DAILY April 26, 2021 12:00am July 26, 2021 2:12pm cephalexin 500 mg oral capsule (20 sources) Cephalosporin Antibacterial Start: 12-09-19 End: 02-19-20 take 1 capsule by mouth every six hours Cephalexin 500 mg capsule Discontinued 500 mg PO EVERY 6 HOURS 40 0 December 08, 2022 12:00am February 18, 2023 9:47am Start: 04-28-2012 take [address] capsule [address] [facility] four times daily at mealtime cephALEXin 500 mg capsule Take 1 capsule by mouth four times daily. With food 40 capsule 0 04/28/2012 Active Comment on above: Take [address] [facility] four times daily. With food clotrimazole 10 mg/ml vaginal cream (20 sources) Azole Antifungal Start: 12-09-2024 End: 12-16-2024 [...] 2024 12:00am October 15, 2024 3:16pm Cranberry Rxyz-C-Ynboojhg Co ag (10 sources) Start: 04-04-2018 End: 05-22-2018 Cranberry Jqgx-J-Gtmwemia Co ag Discontinued 1 EACH PO DAILY April 03, 2018 11:00pm May 22, 2018 1:20pm Start: 04-04-2018 End: 05-22-2018 Cranberry Gler-T-Ddlzogfj Co ag Discontinued 1 EACH PO DAILY April 04, 2018 12:00am May 22, 2018 2:20pm Cranberry Zoix-A-Kkitldyt Coag 1 EACH tablet (11 sources) Start: 04-04-2018 End: 05-22-2018 take 1 tablet by mouth once daily Cranberry Qqwa-L-Javwijcm Coag 1 EACH tablet Discontinued 1 NMA PO DAILY April 04, 2018 12:00am May 22, 2018 2:20pm UTI prevention Start: 04-04-2018 End: 05-22-2018 take 1 tablet by mouth once daily Cranberry Grvi-R-Lsloeesm Coag 1 EACH tablet Discontinued 1 NMA [...] tablet Discontinued 150 mg PO DAILY 1 1 November 14, 2023 12:00am February 19, 2024 1:34pm Infection due to Streptococcus agalactiae Streptococcal infection, unspecified site Start: 02-18-2023 End: 08-18-2023 take 1 tablet by mouth once daily Fluconazole (Diflucan) 100 mg tablet Discontinued 100 mg PO DAILY 1 0 February 18, 2023 12:00am August 18, 2023 10:02am hydrocortisone acetate 30 mg rectal suppository (20 sources) Corticosteroid Start: 04-29-2021 End: 07-26-2021 Hydrocortisone Acetate 30 mg suppository Discontinued 30 mg RC TWICE A DAY 12 4 April 29, 2021 12:00am July 26, 2021 2:12pm [...] daniela th every 8 hours as needed (FOR PAIN. [...] 2022 12:53pm February 18, 2023 9:47am Magnesium (11 sources) Start: 01-30-2024 End: 03-21-2024 take 1 tablet by mouth once daily Magnesium 200 mg tablet Discontinued 200 mg PO DAILY January 30, 2024 12:00am March 21, 2024 2:04pm mecobalamin 1 mg chewable tablet (20 sources) Start: 07-06-2020 End: 08-12-2020 take 1 [...] Start: 07-26-2021 take 1 tablet by daniela once daily Multivitamin Active 1 TABLET PO DAILY July 26, 2021 12:00am Start: 07-26-2021 take 1 tablet by daniela th once daily Multivitamin Active 1 TABLET PO DAILY July 26, 2021 1:00am Multivitamin tablet (11 sources) Start: 07-26-2021 End: 08-18-2023 Multivitamin tablet Discontinued 1 {tbl} PO DAILY July 26, 2021 1:00am August 18, 2023 10:02am nystatin [id number] unt/ml topical cream (20 sources) Polyene Antifungal Start: 05-10-2024 End: 06-24-2024 [...] swish and swallow Nystatin 100,000 unit/gram powder (11 sources) Start: 06-24-2024 End: 06-26-2024 Nystatin 100,000 unit/gram [...] th every 8 hours as needed for nausea/vomiting. oxyCODONE hydrochloride 5 mg oral tablet (11 sources) Opioid Agonist Start: 06-11-20 End: 06-16-20 take 1 tablet by mouth twice daily as needed for pain Oxycodone 5 mg tablet Discontinued 5 mg PO TWICE A DAY as needed for pain 10 5 0 June 11, 2024 June 15, 2024 1:00am June 16, 2024 1:09am Hemorrhoids Unspecified hemorrhoids permethrin 50 mg/ml topical cream (15 sources) Pyrethroid Start: 05-30-20 End: 08-18-19 Permethrin [...] days phentermine hydrochloride 37.5 mg oral tablet (20 sources) Sympathomimetic Amine Anorectic Start: 07-26-2021 End: 02-18-2023 Phentermine 37.5 mg tablet Discontinued 37.5 mg PO July 26, 2021 1:00am February 18, 2023 9:47am predniSONE 10 mg oral tablet (20 sources) Start: 07-20-2022 End: 10-08-2022 take 4 tablets by mouth once daily, then take 3 tablets by mouth once daily, then take 2 tablets by mouth once daily, then take 1 tablet by mouth once daily Prednisone 10 mg tablet Discontinued 10 mg PO As Directed 30 0 July 20, 2022 1:00am October 08, 2022 12:53pm 4 tablets daily x3 days, then 3 tablets daily x3 days, then 2 tablets daily x3 days, then 1 tablet daily x3 days One Daily Tablet (20 sources) Start: 01-06-2018 End: 07-26-2021 take 1 [...] 2021 2:12pm raNITIdine 150 mg oral tablet (20 sources) Histamine-2 Receptor Antagonist Start: 01-06-2018 End: [...] injection (NAROPIN) terconazole 4 mg/ml vaginal cream (12 sources) Azole Antifungal Start: 10-23-2023 End: 10-30-2023 Terconazole 0.4 % cream Discontinued 1 NMA VAGINAL AT BEDTIME 45 7 0 October 23, 2023 12:00am October 29, 2023 12:00am October 30, 2023 12:05am Start: 10-23-2023 Terconazole Ac tive 1 APPFUL VAGINAL AT BEDTIME 45 7 October 23, 2023 12:00am topiramate 25 mg oral tablet (20 sources) Start: 09-01-2021 End: 02-18-2023 Topiramate 25 [...] 80 m g injection (KeNALog 40) Vitamin J55-Yabxx Acid 1-0.8 mg Tablet (11 sources) Start: 02-23-2021 End: 06-04-2024 Vitamin F00-Ycrcx Acid 1-0.8 mg Tablet Discontinued 1 {tbl} PO DAILY February 23, 2021 12:00am June 04, 2024 4:15pm Problems Active Problems Problem Classification Problem Date Documented Da te Episodic/Chronic Abdominal hernia (20 sources) Umbilical hernia; Translations: [Umbilical hernia without obstruction or gangrene] 01-14-2021 Episodic Abdominal pain (20 sources) Abdominal pain; Translations: [Unspecified abdominal pain] Onset: 07-08-2024 Episodic Allergic reactions (20 sources) Allergic disorder of skin; Translations: [Allergic contact dermatitis, unspecified cause] 07-20-2022 Episodic Anal and rectal conditions (20 sources) Anal fissure; Translations: [Anal fissure, unspecified] Onset: 08-12-2020 Episodic Deficiency and other anemia (20 sources) Chronic anemia; Translations: [Anemia, unspecified] 04-23-2024 Episodic Deficiency and other anemia (1 source) Anemia, unspecified; Translations: [Anemia, unspecified] Onset: 5 Episodic Diabetes or abnormal glucose tolerance complicating ; childbirth; or the puerperium (20 sources) Abnormal glucose level; Translations: [Abnormal glucose complicating ] Onset: 5 12-26-2024 Episodic Comment on above: needs 3 hour normal 3 hour Early or threatened labor (7 sources) [facility] contractions; Translations: [False labor, unspecified] Onset: 5 02-07-2025 Episodic Comment on above: fingertip per nursin g dilated with less intense/frequency in ctx. Gastrointestinal hemorrhage (20 sources) Lower gastrointestinal hemorrhage; Translations: [Gastrointestinal hemorrhage, unspecified] 03-29-2021 Episodic Hemorrhage during ; abruptio placenta; placenta previa (19 sources) Bleeding from female genital tract during ; Translations: [Antepartum hemorrhage, unspecified, unspecified trimester] Onset: 5 10-11-2024 Episodic Hemorrhoids (20 sources) Hemorrhoids; Translations: [Unspecified hemorrhoids] Onset: 4 09-07-2007 Episodic Hypertension complicating ; childbirth and the puerperium (11 sources) Hypertension complicating ; Translations: [Unspecified maternal hypertension, third trimester] 02-22-2024 Chronic Comment on above: repeat bp in office WNL. preeclampsia labs done in triage 02/19- tamara acuna. fu in office to monitor bps and [...] than malignant neoplasm] Episodic Other complications of ; puerperium affecting management of mother (3 sources) Large for gestation age fetus 02-05-2025 Episodic Comment on above: 32wk: EFW 69%, AC 97 %: rpt 1 hr GCT/normal Other complications of (20 sources) Maternal obesity [...] unspecified trimester] 08-18-2023 Episodic Other complications of (20 sources) Multigravida of advanced maternal age; Translations: [Supervision of elderly multigravida, unspecified trimester] 08-21-2023 Episodic Comment on above: nipt low risk. plan q 4 week growth US per MFM 38%, 63% Other complications of (20 sources) High risk ; Translations: [Supervision of high risk , unspecified, unspecified trimester] 08-18-2023 Episodic Comment on above: PRR,, RAMSES 5, boy,Lakisha Gu & Earnestine(Twins), Elaine Ferniell be 39 weeks on -. requests IOL on this day. PRR, , RAMSES ,surprise PC Lakisha Martin Lincoln Alvarez Other complications of (20 sources) History of pre-eclampsia; Translations: [Supervision of with other poor reproductive or obstetric history, unspecified trimester] 08-21-2023 Episodic Comment on above: Baseline labs ordere d with NOB labs negative labs . bp s table in WP. headache resolved. Other complications of (6 sources) Supervision of elderly multigravida, unspecified trimester; Translations: [Elderly multigravida, unspecified as to episode of care or not applicable] Onset: 5 08-21-2023 Episodic Other complications of (11 sources) Supervision of with other poor reproductive or obstetric history, unspecified trimester; Translations: [Supervision of high-risk with history of ] Onset: 5 08-21-2023 Episodic Other complications of (6 sources) [...] right leg] Episodic Other connective tissue disease (20 sources) Trochanteric bursitis; Translations: [Trochanteric bursitis, right [...] leg] 05-12-2023 Episodic Other female genital disorders (14 sources) Retroverted uterus; 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 uterus] 08-18-2023 Episodic Other female genital disorders (4 sources) Malposition of uterus; 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 uterus] 08-21-2023 Episodic Other female genital disorders (20 sources) Cyst of vulva; Translations: [Vulvar cyst] 08-26-2024 Episodic Comment on above: +actinomycis:4 wk of amoxil Other female genital disorders (14 sources) Vaginal discharge; Translations: [Other specified noninflammatory disorders of vagina] 08-06-2024 Episodic Other female genital disorders (1 source) Vulvar cyst; Translations: [Vulvar cyst] Onset: 5 Episodic Other gastrointestinal disorders (20 sources) Chronic constipation; Translations: [Other constipation] 01-13-2021 [...] eruption] 07-20-2022 Episodic Other upper respiratory disease (20 sources) Respiratory tract congestion; Translations: [Nasal congestion] 12-01-2020 Episodic Other upper respiratory infections (20 sources) Upper respiratory infection; Translations: [Acute upper respiratory infection, unspecified] 05-28-2021 Episodic Otitis media and related conditions (20 sources) Acute left otitis media; Translations: [Otitis media, unspecified, left ear] 05-28-2021 Episodic Prolapse of female genital organs (20 sources) Instability of pelvic floor; 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] Onset: 5 05-10-2024 Chronic Residual codes; unclassified (1 source) Pain; Translations: [Pain, unspecified] Episodic Residual codes; unclassified (11 sources) Gestation period, 35 weeks; Translations: [35 [...] of , childbirth and the puerperium] Onset: Episodic Residual codes; unclassified (1 source) 29 weeks gestation of ; Translations: [29 weeks gestation of ] Onset: Episodic Skin and subcutaneous tissue infections (17 sources) Cellulitis of face; Translations: [Cellulitis of [...] [Streptococcal infection, unspecified site] Onset: 05-10-2024 Episodic Genitourinary symptoms and ill-defined conditions (2 sources) Urgency of urination; Translations: [Dysuria] Onset: 10-07-2024 Episodic Other and unspecified benign neoplasm (20 [...] unspecified, third trimester] Onset: 03-13-2024 Episodic Other connective tissue disease (12 sources) [...] 08-30-2010 Episodic Residual codes; unclassified (1 source) 16 weeks gestation of ; Translations: [16 weeks gestation of ] Onset: 10-15-2024 Episodic Residual codes; unclassified (1 source) 15 [...] weeks gestation of ] Onset: 02-13-2024 Episodic Results Test Name Value Interpretation Reference Range Facility Urine Cultureon 02-08-2025 URC Culture exhibits no growth. Normal [facility] Comment on above: Performed By: #### M 100.2208 ####[facility] [address] [place], [address] AST(SGOT)on 02-07-2025 AST [Catalytic activity/Vol] 13 U/L Normal <=31 [facility] Comment on above: Performed By: #### L 400.2010, L501.4405, L501.0900, L501.1400, L501.1105, L100.0500, L501.4100 ####[facility] [address] [place], [address] Alanine Aminotransferas (SGP T)on 02-07-2025 ALT [Catalytic activity/Vol] 8 U/L Normal <=34 [facility] Comment on above: Performed By: #### L 400.2010, L501.4405, L501.0900, L501.1400, L501.1105, L100.0500, L501.4100 ####[facility] [address] [place], [address] Bilirubin Test strip Ql (U)O rdered By: Linda Hammond on 02-07-2025 Bilirubin Ql (U) Negative Negative [facility] CBC-Complete Blood Cnt No Di ffon 02-07-2025 Erythrocyte distribution width (RBC) [Ratio] 12.6 % Normal 11.6-14.6 [facility] Comment on above: Performed By: #### L 400.2010, L501.4405, L501.0900, L501.1400, L501.1105, L100.0500, L501.4100 ####[facility] [address] [place], [address] Hematocrit (Bld) [Volume fraction] 33.6 % Low 37-47 [facility] Comment on above: Performed By: #### L 400.2010, L501.4405, L501.0900, L501.1400, L501.1105, L100.0500, L501.4100 ####[facility] [address] [place], [address] Hemoglobin (Bld) [Mass/Vol] 11.7 g/dL Low 12.0-15.0 [facility] Comment on above: Performed By: #### L 400, L501.4405, L501.0900, L501.1400, L501.1105, L100.0500, L501.4100 ####[facility] [address] [place], [address] MCH (RBC) [Entitic mass] 29.8 pg Normal 27.0-32.0 [facility] Comment on above: Performed By: #### L 400.2010, L501.4405, L501.0900, L501.1400, L501.1105, L100.0500, L501.4100 ####[facility] [address] [place], [address] MCHC (RBC) [Mass/Vol] 34.8 g/dL Normal 32-36 [facility] Comment on above: Performed By: #### L 400.2010, L501.4405, L501.0900, L501.1400, L501.1105, L100.0500, L501.4100 ####[facility] [address] [place], [address] MCV (RBC) [Entitic vol] 85.7 fL Normal 81-99 [facility] Comment on above: Performed By: #### L 400.2010, L501.4405, L501.0900, L501.1400, L501.1105, L100.0500, L501.4100 ####[facility] [address] [place], [address] Platelet mean volume (Bld) [Entitic vol] 10.6 fL Normal 6.2-12.0 [facility] Comment on above: Performed By: #### L 400.2010, L501.4405, L501.0900, L501.1400, L501.1105, L100.0500, L501.4100 ####[facility] [address] [place], [address] Platelets (Bld) [#/Vol] 186 10*3/uL Normal 150-450 [facility] Comment on above: Performed By: #### L 400.2010, L501.4405, L501.0900, L501.1400, L501.1105, L100.0500, L501.4100 ####[facility] [address] [place], [address] RBC (Bld) [#/Vol] 3.92 10*6/uL Low 4.2-5.4 [facility] Comment on above: Performed By: #### L 400.2010, L501.4405, L501.0900, L501.1400, L501.1105, L100.0500, L501.4100 ####[facility] [address] [place], [address] RDW SD 38.9 fl Normal 35.1-43.9 [facility] Comment on above: Performed By: #### L 400.2010, L501.4405, L501.0900, L501.1400, L501.1105, L100.0500, L501.4100 ####[facility] [address] [place], [address] WBC (Bld) [#/Vol] 8.7 10*3/uL Normal 4.4-11.0 [facility] Comment on above: Performed By: #### L 400, L501.4405, L501.0900, L501.1400, L501.1105, L100.0500, L501.4100 ####[facility] [address] [place], [address] Erythrocyte distribution wid th ratioOrdered By: Linda Hammond on 02-07-2025 Erythrocyte distribution width (RBC) [Ratio] 12.6 % 11.6-14.6 [facility] Erythrocyte distribution wid th standard deviationOrdered By: Linda Hammond on 02-07-2025 Erythrocyte distribution width (RBC) [Ratio] 38.9 fl 35.1-43.9 [facility] Glomerular filtration rate ( GFR) estimation/1.73 sq m using serum, plasma, or whole bOrdered By: Linda Hammond on 02-07-2025 GFR/1.73 sq M.predicted among non-blacks MDRD (S/P/Bld) [Vol rate/Area] 126 mL/min/{1.73_m2} >60 [facility] Comment on above: mL/min/1.73m2 CKD-EP I Creatinine Equation (2020) Hematocrit Auto (Bld) [Volum e fraction]Ordered By: Linda Hammond on 02-07-2025 Hematocrit (Bld) [Volume fraction] 33.6 % Low 37-47 [facility] Hemoglobin measurementOrdere d By: Linda Hammond on 02-07-2025 Hemoglobin (Bld) [Mass/Vol] 11.7 g/dL Low 12.0-15.0 [facility] Ketones Test strip Ql (U)Ord ered By: Linda Hammond on 02-07-2025 Ketones Ql (U) 5 mg/dl High Negative [facility] Laboratory - Chemistry and C hemistry - challengeOrdered By: Linda Hammond on 02-07-2025 AST [Catalytic activity/Vol] 13 U/L <32 [facility] MCV (mean corpuscular volume ) determinationOrdered By: Linda Hammond on 02-07-2025 MCV (RBC) [Entitic vol] 85.7 fL 81-99 [facility] Mean corpuscular hemoglobin (MCH) determinationOrdered By: Linda Hammond on 02-07-2025 MCH (RBC) [Entitic mass] 29.8 pg 27.0-32.0 [facility] Mean corpuscular hemoglobin concentration (MCHC) determinationOrdered By: Linda Hammond on 02-07-2025 MCHC (RBC) [Mass/Vol] 34.8 g/dL 32-36 [facility] Mean platelet volume determi nationOrdered By: Linda Hammond on 02-07-2025 Platelet mean volume (Bld) [Entitic vol] 10.6 fL 6.2-12.0 [facility] Nitrite Test strip Ql (U)Ord ered By: Linda Hammond on 02-07-2025 Nitrite Ql (U) Negative Negative [facility] OB Triage Physician Noteon 0 02-07-2025 OB Triage Physician Note Normal [facility] Platelet countOrdered By: Fallon Hammond on 02-07-2025 Platelets (Bld) [#/Vol] 186 10*3/uL 150-450 [facility] Protein Test strip Ql (U)Ord ered By: Linda Hammond on 02-07-2025 Protein Ql (U) 15 mg/dl High Negative [facility] Protein+Creatinine Ratio,Uri neon 02-07-2025 PROT:CRE RATIO 174 mg/g CRE Normal 0-200 [facility] Comment on above: Performed By: #### L 400.2010, L501.4405, L501.0900, L501.1400, L501.1105, L100.0500, L501.4100 ####[facility] [address] [place], [address] Protein (U) [Mass/Vol] 8.7 mg/dL Normal 0.0-12.0 [facility] Comment on above: Performed By: #### L 400.2010, L501.4405, L501.0900, L501.1400, L501.1105, L100.0500, L501.4100 ####[facility] [address] [place], [address] UR CREAT 50.20 mg/dL Normal 28.00-217.00 [facility] Comment on above: Performed By: #### L 400.2010, L501.4405, L501.0900, L501.1400, L501.1105, L100.0500, L501.4100 ####[facility] [address] [place], [address] RBC Auto (Bld) [#/Vol]Ordere d By: Linda Hammond on 02-07-2025 RBC (Bld) [#/Vol] 3.92 10*6/uL Low 4.2-5.4 [facility] Random urine creatinine jazmine urement (mass/volume)Ordered By: Linda Hammond on 02-07-2025 Creatinine Unsp time (U) [Mass/Vol] 50.20 mg/dL 28.00-217.00 [facility] Serum Creatinine AND GFRon 0 02-07-2025 Creatinine [Mass/Vol] 0.48 mg/dL Low 0.70-1.20 [facility] Comment on above: Performed By: #### L 400.2010, L501.4405, L501.0900, L501.1400, L501.1105, L100.0500, L501.4100 ####[facility] [address] [place], [address] ECRCL 177.60 ml/min Normal 50-250 [facility] Comment on above: Performed By: #### L 400.2010, L501.4405, L501.0900, L501.1400, L501.1105, L100.0500, L501.4100 ####[facility] [address] [place], [address] GFR/1.73 sq M.predicted among non-blacks MDRD (S/P/Bld) [Vol rate/Area] 126 mL/min/{1.73_m2} Normal >60 [facility] Comment on above: Result Comment: mL/m in/1.73m2 CKD-EPI Creatinine Equation (2020) Performed By: #### L 400.2010, L501.4405, L501.0900, L501.1400, L501.1105, L100.0500, L501.4100 ####[facility] [address] [place], [address] Serum creatinine measurement (mass/volume)Ordered By: Linda Hammond on 02-07-2025 Creatinine [Mass/Vol] 0.48 mg/dL Low 0.70-1.20 [facility] Serum or plasma alanine isabel otransferase (ALT) measurementOrdered By: Linda Hammond on 02-07-2025 ALT [Catalytic activity/Vol] 8 U/L <35 [facility] Serum or plasma uric acid me asurement (mass/volume)Ordered By: Linda Hammond on 02-07-2025 Urate [Mass/Vol] 4.4 mg/dL 2.6-6.0 [facility] Comment on above: The drugs N-Acetylcy steine and Metamizole may falsely depress this assay. Uric Acidon 02-07-2025 URIC 4.4 mg/dL Normal 2.6-6.0 [facility] Comment on above: Result Comment: The drugs N-Acetylcysteine and Metamizole may falselydepress this assay. Performed By: #### L 400.2010, L501.4405, L501.0900, L501.1400, L501.1105, L100.0500, L501.4100 ####[facility] [address] [place], [place], [id number] Urinalysis, Routine (Dipstic k)on 02-07-2025 BILIRUBIN URINE Negative Normal Negative [facility] Comment on above: Order Comment: LUCRECIA CTOR TO SPECIFY Performed By: #### L , L501.4405, L501.0900, L501.1400, L501.1105, L100.0500, L501.4100 ####[facility] [address] [place], [place], [id number] Clarity (U) Clear Normal Clear [facility] Comment on above: Order Comment: LUCRECIA CTOR TO SPECIFY Performed By: #### L 400.2010, L501.4405, L501.0900, L501.1400, L501.1105, L100.0500, L501.4100 ####[facility] [address] [place], [place], [id number] Color (U) Yellow Normal Yellow [facility] Comment on above: Order Comment: LUCRECIA CTOR TO SPECIFY Performed By: #### L 400, L501.4405, L501.0900, L501.1400, L501.1105, L100.0500, L501.4100 ####[facility] [address] [place], [address] GLUCOSE, UR Normal Normal Normal [facility] Comment on above: Order Comment: COLLE CTOR TO SPECIFY Performed By: #### L 400.2010, L501.4405, L501.0900, L501.1400, L501.1105, L100.0500, L501.4100 ####[facility] [address] [place], [address] KETONE UR 5 mg/dl Abnormal Negative [facility] Comment on above: Order Comment: COLLE CTOR TO SPECIFY Performed By: #### L 400.2010, L501.4405, L501.0900, L501.1400, L501.1105, L100.0500, L501.4100 ####[facility] [address] [place], [address] LEUK ESTERASE Negative Normal Negative [facility] Comment on above: Order Comment: LUCRECIA CTOR TO SPECIFY Performed By: #### L 400.2010, L501.4405, L501.0900, L501.1400, L501.1105, L100.0500, L501.4100 ####[facility] [address] [place], [address] Nitrite Ql (U) Negative Normal Negative [facility] Comment on above: Order Comment: COLLE CTOR TO SPECIFY Performed By: #### L 400.2010, L501.4405, L501.0900, L501.1400, L501.1105, L100.0500, L501.4100 ####[facility] [address] [place], [address] OCCULT BLOOD-UR Negative Normal Negative [facility] Comment on above: Order Comment: COLLE CTOR TO SPECIFY Performed By: #### L 400.2010, L501.4405, L501.0900, L501.1400, L501.1105, L100.0500, L501.4100 ####[facility] [address] [place], [address] pH UR 7.0 Normal 5.0 - 8.0 [facility] Comment on above: Order Comment: LUCRECIA CTOR TO SPECIFY Performed By: #### L 400.2010, L501.4405, L501.0900, L501.1400, L501.1105, L100.0500, L501.4100 ####[facility] [address] [place], [address] PROT DIPSTX 15 mg/dl Abnormal Negative [facility] Comment on above: Order Comment: LUCRECIA CTOR TO SPECIFY Performed By: #### L 400.2010, L501.4405, L501.0900, L501.1400, L501.1105, L100.0500, L501.4100 ####[facility] [address] [place], [address] SP.GR. DIPSTX 1.010 Normal 1.002-1.030 [facility] Comment on above: Order Comment: LUCRECIA CTOR TO SPECIFY Performed By: #### L 400.2010, L501.4405, L501.0900, L501.1400, L501.1105, L100.0500, L501.4100 ####[facility] [address], [address] UROBILI Normal Normal Normal [facility] Comment on above: Order Comment: LUCRECIA CTOR TO SPECIFY Performed By: #### L 400.2010, L501.4405, L501.0900, L501.1400, L501.1105, L100.0500, L501.4100 ####[facility] [address] [place], [address] Urine clarityOrdered By: Tania Hammond on 02-07-2025 Clarity (U) Clear Clear [facility] Urine color determinationOrd ered By: Linda Hammond on 02-07-2025 Color (U) Yellow Yellow [facility] Urine cultureOrdered By: Tania Hammond on 02-07-2025 Bacteria identified Cx Nom (U) Culture exhibits no growth. [facility] Urine glucose detectionOrder ed By: Linda Hammond on 02-07-2025 Glucose Ql (U) Normal mg/dl Normal [facility] Urine leukocyte esterase det ection by dipstickOrdered By: Linda Hammond on 02-07-2025 Leukocyte esterase Test strip Ql (U) Negative Negative [facility] Urine pHOrdered By: Linda Hammond on 02-07-2025 pH (U) 7.0 [pH] 5.0 - 8.0 [facility] Urine protein measurement (m ass/volume)Ordered By: Linda Hammond on 02-07-2025 Protein (U) [Mass/Vol] 8.7 mg/dL 0.0-12.0 [facility] Urine protein/creatinine mas s ratioOrdered By: Linda Hammond on 02-07-2025 Protein/Creatinine (U) [Mass ratio] 174 mg/g CRE 0-200 [facility] Urine specific gravity measu rementOrdered By: Linda Hammond on 02-07-2025 Specific gravity (U) [Rel density] 1.010 1.002-1.030 [facility] Urine urobilinogen measureme ntOrdered By: Linda Hammond on 02-07-2025 Urobilinogen Ql (U) Normal mg/dl Normal [facility] White blood cell (WBC) count Ordered By: Linda Hammond on 02-07-2025 WBC (Bld) [#/Vol] 8.7 10*3/uL 4.4-11.0 [facility] Glucose Challenge Gest 1H 50 katharine 02-05-2025 GLU GEST 50g 1H 111 mg/dL Normal 70-140 [facility] Comment on above: Performed By: #### L 501.0250 ####[facility] [address] [place], [address] Glucose measurement at 2 fahad rs post-dose gestational glucose tolerance testOrdered By: Danya Simpson on 02-05-2025 Glucose [Mass/Vol] 111 mg/dL 70-140 [facility] Laboratory - Chemistry and C hemistry - challengeOrdered By: Reina Romero on 01-29-2025 Glucose Ql (U) Negative [facility] Laboratory - UrinalysisOrder ed By: Reina Romero on 01-29-2025 Protein Ql (U) Negative [facility] [employer] Office Visit Reporton 01-29-2025 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, [address] Quantitative serum or plasma 3 hour gestational glucose tolerance panelOrdered By: Lawson Parry on 01-14-2025 Glucose tolerance 3 hours gestational panel See comment [facility] Comment on above: FASTING 88 Col: 0703/03 0657GLUCOSE TOLERANCE TEST FOR Reference Interval GESTATIONAL DIABETES Fasting <105 mg/dL 1 hour <190 mg/dl 2 hour <165 mg/dl 3 hour <145 mg/dl 1 HR GLU 143 Col: 01/14/25 0911 2 HR GLU 126 Col: 01/14/25 1015 3 HR GLU 89 Col: 01/14/25 1115 Laboratory - Chemistry and C hemistry - challengeOrdered By: Lawson Parry on 01-13-2025 Glucose Ql (U) Negative [facility] Laboratory - UrinalysisOrder ed By: Lawson Parry on 01-13-2025 Protein Ql (U) Negative [facility] [employer] Operator Office Visit Reporton 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 [facility] [employer] Operator Office Visit Reporton 01-03-2025 Pellet [employer] Operator Office Visit Report Normal [facility] Absolute lymphocyte countOrd ered By: Reina Romero on 12-26-2024 Lymphocytes Auto (Unsp spec) [#/Vol] 1.32 10*3/uL 0.83-4.51 [facility] Absolute neutrophil countOrd ered By: Reina Romero on 12-26-2024 Neutrophils (Bld) [#/Vol] 5.7 10*3/uL 2.0-7.7 [facility] Automated lymphocyte count a s percentage of total leukocytesOrdered By: Reina Romero on 12-26-2024 Lymphocytes/100 WBC Auto (Unsp spec) 17.4 % Low 19-41 [facility] Basophil percentageOrdered B y: Reina Romero on 12-26-2024 Basophils/100 WBC (Bld) 0.4 % 0-1 [facility] CBC W/Diff, Automatedon 12-08 Absolute Lymph 1.32 X10 3/uL Normal 0.83-4.51 [facility] Comment on above: Performed By: #### L 100.0100, L3890.6006, L501.0250, L509.8002 ####[facility] [address] [place], [address] Absolute Neut 5.7 X10 3/uL Normal 2.0-7.7 [facility] Comment on above: Performed By: #### L 100.0100, L3890.6006, L501.0250, L509.8002 ####[facility] [address] [place], [address] Basophils/100 WBC (Bld) 0.4 % Normal 0-1 [facility] Comment on above: Performed By: #### L 100.0100, L3890.6006, L501.0250, L509.8002 ####[facility] [address] [place], [address] Eosinophils/100 WBC (Bld) 2.9 % Normal 0-5 [facility] Comment on above: Performed By: #### L 100.0100, L3890.6006, L501.0250, L509.8002 ####[facility] [address] [place], [address] Erythrocyte distribution width (RBC) [Ratio] 12.7 % Normal 11.6-14.6 [facility] Comment on above: Performed By: #### L 100.0100, L3890.6006, L501.0250, L509.8002 ####[facility] [address] [place], [address] Hematocrit (Bld) [Volume fraction] 33.8 % Low 37-47 [facility] Comment on above: Performed By: #### L 100.0100, L3890.6006, L501.0250, L509.8002 ####[facility] [address] [place], [address] Hemoglobin (Bld) [Mass/Vol] 11.8 g/dL Low 12.0-15.0 [facility] Comment on above: Performed By: #### L 100.0100, L3890.6006, L501.0250, L509.8002 ####[facility] [address] [place], [address] IG% 0.400 Normal 0.0-0.9 [facility] Comment on above: Result Comment: IG% - Immature Granulocytes (promyelocytes, myelocytes andmetamyelocytes) > 1% indicates that a LEFT SHIFT is Present. Performed By: #### L 100.0100, L3890.6006, L501.0250, L509.8002 ####[facility] [address] [place], [address] Lymphocytes/100 WBC (Bld) 17.4 % Low 19-41 [facility] Comment on above: Performed By: #### L 100.0100, L3890.6006, L501.0250, L509.8002 ####[facility] [address] [place], [address] MCH (RBC) [Entitic mass] 30.6 pg Normal 27.0-32.0 [facility] Comment on above: Performed By: #### L 100.0100, L3890.6006, L501.0250, L509.8002 ####[facility] [address] [place], [address] MCHC (RBC) [Mass/Vol] 34.9 g/dL Normal 32-36 [facility] Comment on above: Performed By: #### L 100.0100, L3890.6006, L501.0250, L509.8002 ####[facility] [address] [place], [address] MCV (RBC) [Entitic vol] 87.8 fL Normal 81-99 [facility] Comment on above: Performed By: #### L 100.0100, L3890.6006, L501.0250, L509.8002 ####[facility] [address] [place], [address] Monocytes/100 WBC (Bld) 3.8 % Normal 0-10 [facility] Comment on above: Performed By: #### L 100.0100, L3890.6006, L501.0250, L509.8002 ####[facility] [address] [place], [address] Neutrophils/100 WBC (Bld) 75.1 % High 47-70 [facility] Comment on above: Performed By: #### L 100.0100, L3890.6006, L501.0250, L509.8002 ####[facility] [address] [place], [address] Nucleated RBC (Bld) [#/Vol] 0 10*3/uL Normal 0-5 [facility] Comment on above: Performed By: #### L 100.0100, L3890.6006, L501.0250, L509.8002 ####[facility] [address] [place], [address] Platelet mean volume (Bld) [Entitic vol] 9.9 fL Normal 6.2-12.0 [facility] Comment on above: Performed By: #### L 100.0100, L3890.6006, L501.0250, L509.8002 ####[facility] [address] [place], [address] Platelets (Bld) [#/Vol] 196 10*3/uL Normal 150-450 [facility] Comment on above: Performed By: #### L 100.0100, L3890.6006, L501.0250, L509.8002 ####[facility] [address] [place], [address] RBC (Bld) [#/Vol] 3.85 10*6/uL Low 4.2-5.4 [facility] Comment on above: Performed By: #### L 100.0100, L3890.6006, L501.0250, L509.8002 ####[facility] [address] [place], [address] RDW SD 40.8 fl Normal 35.1-43.9 [facility] Comment on above: Performed By: #### L 100.0100, L3890.6006, L501.0250, L509.8002 ####[facility] [address] [place], [address] WBC (Bld) [#/Vol] 7.6 10*3/uL Normal 4.4-11.0 [facility] Comment on above: Performed By: #### L 100.0100, L3890.6006, L501.0250, L509.8002 ####[facility] [address] [place], [address] Eosinophil percentageOrdered By: Reina Romero on 12-26-2024 Eosinophils/100 WBC (Bld) 2.9 % 0-5 [facility] Erythrocyte distribution wid th ratioOrdered By: Reina Romero on 12-26-2024 Erythrocyte distribution width (RBC) [Ratio] 12.7 % 11.6-14.6 [facility] Erythrocyte distribution wid th standard deviationOrdered By: Reina Romero on 12-26-2024 Erythrocyte distribution width (RBC) [Ratio] 40.8 fl 35.1-43.9 [facility] Glucose Challenge Gest 1H 50 katharine 12-26-2024 GLU GEST 50g 1H 138 mg/dL Normal 70-140 [facility] Comment on above: Performed By: #### L 100.0100, L3890.6006, L501.0250, L509.8002 ####[facility] [address] [place], [address] Glucose measurement at 2 fahad rs post-dose gestational glucose tolerance testOrdered By: Reina Romero on 12-26-2024 Glucose [Mass/Vol] 138 mg/dL 70-140 [facility] HIVon 12-26-2024 HIV Non-Reactive Normal Nonreactive [facility] Comment on above: Result Comment: Non- ReactiveReactiveRepeatedly reactive samples must be confirmed according [facility] recommended confirmatory algorithms. The subresults foreither HIVAG or AHIV can be used as an aid in the selectionof the confirmation algorithm for reactive samples.Send out specimens with Reactive results to [facility] forconfirmation.Order the HIV antibody detection and differentiation:#[id number] Performed By: #### L 100.0100, L3890.6006, L501.0250, L509.8002 ####[facility] [address] [place], [place], [id number] Hematocrit Auto (Bld) [Volum e fraction]Ordered By: Reina Romero on 12-26-2024 Hematocrit (Bld) [Volume fraction] 33.8 % Low 37-47 [facility] Hemoglobin measurementOrdere d By: Reina Romero on 12-26-2024 Hemoglobin (Bld) [Mass/Vol] 11.8 g/dL Low 12.0-15.0 [facility] Immature granulocytes/100 WB C Auto (Bld)Ordered By: Reina Romero on 12-26-2024 Immature granulocytes/100 WBC (Bld) 0.400 % 0.0-0.9 [facility] Comment on above: IG% - Immature Granu locytes (promyelocytes, myelocytes and metamyelocytes) > 1% indicates that a LEFT SHIFT is Present. MCV (mean corpuscular volume ) determinationOrdered By: Reina Romero on 12-26-2024 MCV (RBC) [Entitic vol] 87.8 fL 81-99 [facility] Mean corpuscular hemoglobin (MCH) determinationOrdered By: Reina Romero on 12-26-2024 MCH (RBC) [Entitic mass] 30.6 pg 27.0-32.0 [facility] Mean corpuscular hemoglobin concentration (MCHC) determinationOrdered By: Reina Romero on 12-26-2024 MCHC (RBC) [Mass/Vol] 34.9 g/dL 32-36 [facility] Mean platelet volume determi nationOrdered By: Reina Romero on 12-26-2024 Platelet mean volume (Bld) [Entitic vol] 9.9 fL 6.2-12.0 [facility] Monocyte percentageOrdered B y: Reina Romero on 12-26-2024 Monocytes/100 WBC (Bld) 3.8 % 0-10 [facility] Neutrophil percentageOrdered By: Reina Romero on 12-26-2024 Neutrophils/100 WBC (Bld) 75.1 % High 47-70 [facility] No Panel InformationOrdered By: Reina Romero on 12-26-2024 HIV (1&2) Antibody Non-Reactive Nonreactive [facility] Comment on above: Non-ReactiveReactive Repeatedly reactive samples must be confirmed according to CDC recommended confirmatory algorithms. The subresults for either HIVAG or AHIV can be used as an aid in the selection of the confirmation algorithm for reactive samples.Send out specimens with Reactive results to [facility] for confirmation.Order the HIV antibody detection and differentiation: #[id number] Nucleated red blood cell per centageOrdered By: Reina Romero on 12-26-2024 Nucleated RBC/100 WBC (Bld) [Ratio] 0 % 0-5 [facility] Platelet countOrdered By: Wade dysonchino Heather on 12-26-2024 Platelets (Bld) [#/Vol] 196 10*3/uL 150-450 [facility] RBC Auto (Bld) [#/Vol]Ordere d By: Reina Romero on 12-26-2024 RBC (Bld) [#/Vol] 3.85 10*6/uL Low 4.2-5.4 [facility] Syphilis Antibodieson 2024 Syphilis Abs Non-Reactive Normal Nonreactive [facility] Comment on above: Performed By: #### L 100.0100, L3890.6006, L501.0250, L509.8002 ####[facility] [address] [place], [address] White blood cell (WBC) count Ordered By: Reina Romero on 12-26-2024 WBC (Bld) [#/Vol] 7.6 10*3/uL 4.4-11.0 [facility] Laboratory - Chemistry and C hemistry - challengeOrdered By: Reina Romero on 12-04-2024 Glucose Ql (U) Negative [facility] Laboratory - UrinalysisOrder ed By: Reina Romero on 12-04-2024 Protein Ql (U) Negative [facility] [employer] Office Visit Reporton 12-04-2024 [employer] Office Visit Report Normal [facility] Laboratory - Chemistry and C hemistry - challengeOrdered By: Piedad Moreno on 11-07-2024 Glucose Ql (U) Negative [facility] Laboratory - UrinalysisOrder ed By: Piedad Moreno on 11-07-2024 Protein Ql (U) Negative [facility] [employer] Office Visit Reporton 11-07-2024 [employer] Office Visit Report Normal [facility] Genital Culture Comprehensiv coleman 10-18-2024 VAC Reason for Exam: pelvic cramping No Gardnerella, Neisseria or beta-hemolytic Streptococcus isolated. Presumptive C albicans Amount Growth 3+ Normal [facility] Comment on above: Performed By: #### M 100.1999, M100.3200, M100.2200 ####[facility] [address] [place], [address] Urine Cultureon 10-17-2024 URC Below infection level. Mixed Gram Positive Organisms Groom Count 1000-10,000 MIXC Mixed contaminants. Submit a new specimen if indicated. Normal [facility] Comment on above: Performed By: #### M 100.1999, M100.3200, M100.2200 ####[facility] [address] [place], [address] Gram Stainon 10-15-2024 GS Reason for Exam: pelvic cramping Gram Stain Rare Yeast Like Organisms 4+ Gram positive rods No White Blood Cells No Gram negative diplococci Score = 0 Interpretation: 0-3 Normal, 4-6 Intermediate, 7-10 Positive BV Normal [facility] Comment on above: Performed By: #### M 100.1999, M100.3200, M100.2200 ####[facility] [address] [place], [address] Gram stainOrdered By: Piedad Moreno on 10-15-2024 Microscopic observation Gram stain Nom (Unsp spec) [facility] Laboratory - Chemistry and C hemistry - challengeOrdered By: Piedad Moreno on 10-15-2024 Glucose Ql (U) Negative [facility] Laboratory - UrinalysisOrder ed By: Piedad Moreno on 10-15-2024 Protein Ql (U) Negative [facility] [employer] Office Visit Reporton 10-15-2024 [employer] Office Visit Report Normal [facility] Urine cultureOrdered By: Chin Moreno on 10-15-2024 Bacteria identified Cx Nom (U) Positive Abnormal [facility] Bilirubin Test strip Ql (U)O rdered By: Mary Jane Wade on 10-11-2024 Bilirubin Ql (U) Negative Negative [facility] Emergency Department Summary on 10-11-2024 Emergency Department Summary Normal [facility] Epithelial cells.squamous LM Ql (Urine sed)Ordered By: Mary Jane Wade on 10-11-2024 Epithelial cells.squamous LM.HPF (Urine sed) [#/Area] 0 /[HPF] 5-10 [facility] Glucose Ql (U)Ordered By: Sidney Wade on 10-11-2024 Urine Glucose (UA) Normal mg/dl Normal [facility] Ketones Test strip Ql (U)Ord ered By: Mary Jane Wade on 10-11-2024 Ketones Ql (U) Negative Negative [facility] Microscopic analysis of urin e for red blood cells (RBC)Ordered By: Mary Jane Wade on 10-11-2024 Microscopic analysis of urine for red blood cells (RBC) 0-5 SEEN /hpf 0-5 [facility] Urine RBC 0-5 SEEN /hpf 0-5 [facility] Mucus LM Ql (Urine sed)Order ed By: Mary Jane Wade on 10-11-2024 Mucus Ql (Urine sed) 0 SEEN /hpf [facility] Nitrite Test strip Ql (U)Ord ered By: Mary Jane Wade on 10-11-2024 Nitrite Ql (U) Negative Negative [facility] Protein Test strip Ql (U)Ord ered By: Mary Jane Wade on 10-11-2024 Protein Ql (U) Negative Negative [facility] Squamous epithelial cells de tection in urine sediment by light microscopyOrdered By: Mary Jane Wade on 10-11-2024 Epithelial cells.squamous LM Ql (Urine sed) 0-5 SEEN /hpf 5-10 [facility] Transvaginal w/Preg USon Transvaginal w/Preg US Normal [facility] Urinalysis, Completeon 10-11 EPI,SQUAMOUS 0-5 SEEN Normal 5-10 [facility] Comment on above: Order Comment: LUCRECIA CANELA TO SPECIFY Performed By: #### L 400.0001 ####[facility] [address] [place], [place], [address] RBC 0-5 SEEN Normal 0-5 [facility] Comment on above: Order Comment: LUCRECIA WILLISOR TO SPECIFY Performed By: #### L 400.0001 ####[facility] [address] [place], [address] WBC 0-5 SEEN Normal 0-5 [facility] Comment on above: Order Comment: COLLE CTOR TO SPECIFY Performed By: #### L 400.0001 ####[facility] [address] [place], [address] BACTERIA 0 SEEN Normal None Seen [facility] Comment on above: Order Comment: LUCRECIA CTOR TO SPECIFY Performed By: #### L 400.0001 ####[facility] [address] [place], [address] Mucus Ql (Urine sed) 0 SEEN Normal [facility] Comment on above: Order Comment: LUCRECIA CTOR TO SPECIFY Performed By: #### L 400.0001 ####[facility] [address] [place], [place], [id number] Urine blood detectionOrdered By: Mary Jane Wade on 10-11-2024 Urine Occult Blood 25 /ul High Negative [facility] Urine clarityOrdered By: Ellyn Wade on 10-11-2024 Clarity (U) Sl. Cloudy Clear [facility] Urine color determinationOrd ered By: Mary Jane Wade on 10-11-2024 Color (U) Yellow Yellow [facility] Urine glucose detectionOrder ed By: Mary Jane Wade on 10-11-2024 Glucose Ql (U) Normal mg/dl Normal [facility] Urine leukocyte esterase det ection by dipstickOrdered By: Mary Jane Wade on 10-11-2024 Leukocyte esterase Test strip Ql (U) 25 /ul High Negative [facility] Urine pHOrdered By: Mary Jane neal on 10-11-2024 pH (U) 6.0 [pH] 5.0 - 8.0 [facility] Urine sediment bacteria coun t by microscopy (number/high power field)Ordered By: Mary Jane Wade on 10-11-2024 Bacteria LM.HPF (Urine sed) [#/Area] 0 /[HPF] None Seen [facility] Urine specific gravity measu rementOrdered By: Mary Jane Wade on 10-11-2024 Specific gravity (U) [Rel density] 1.015 1.002-1.030 [facility] Urine urobilinogen measureme ntOrdered By: Mary Jane Wade on 10-11-2024 Urobilinogen Ql (U) Normal mg/dl Normal [facility] Urobilinogen Ql (U)Ordered B y: Mary Jane Wade on 10-11-2024 Urine Urobilinogen Normal mg/dl Normal [facility] White blood cell countOrdere d By: Mary Jane Wade on 10-11-2024 Urine WBC 0-5 SEEN /hpf 0-5 [facility] White blood cell count 0-5 SEEN /hpf 0-5 [facility] Laboratory - Chemistry and C hemistry - challengeOrdered By: Lawson Parry on 10-07-2024 Bilirubin Ql (U) Negative [facility] Glucose Ql (U) Negative [facility] Ketones Ql (U) Negative [facility] pH (U) 5 [pH] [facility] Specific gravity (U) [Rel density] 1.015 [facility] Urobilinogen (U) [Mass/Vol] Negative [facility] Laboratory - Hematology and Cell countsOrdered By: Lawson Parry on 10-07-2024 Hemoglobin Ql (U) Negative [facility] Laboratory - Specimen inform ationOrdered By: Lawson Parry on 10-07-2024 Clarity (U) Clear [facility] Color (U) Yellow [facility] Laboratory - UrinalysisOrder ed By: Lawson Parry on 10-07-2024 Nitrite Ql (U) Negative [facility] Protein Ql (U) Negative [facility] No Panel InformationOrdered By: Lawson Parry on 10-07-2024 Urine Leukocytes Negatve [facility] Urine Non-Hemolyzed Blood Negative [facility] [employer] Office Visit Reporton 10-07-2024 [employer] Operator Office Visit Report Normal [facility] Absolute lymphocyte countOrd ered By: Reina Romero on 09-10-2024 Lymphocytes Auto (Unsp spec) [#/Vol] 1.58 10*3/uL 0.83-4.51 [facility] Absolute neutrophil countOrd ered By: Reina Romero on 09-10-2024 Neutrophils (Bld) [#/Vol] 5.1 10*3/uL 2.0-7.7 [facility] Anion gap in Serum or Plasma Ordered By: Reina Romero on 09-10-2024 Anion gap [Moles/Vol] 13 mmol/L 5-15 [facility] Automated lymphocyte count a s percentage of total leukocytesOrdered By: Reina Romero on 09-10-2024 Lymphocytes/100 WBC Auto (Unsp spec) 22.0 % - [facility] BUN/creatinine ratioOrdered By: Reina Romero on 09-10-2024 Urea nitrogen/Creatinine [Mass ratio] 17.4 mg/mg 10- [facility] Basophil percentageOrdered B y: Reina Romero on 09-10-2024 Basophils/100 WBC (Bld) 0.1 % 0-1 [facility] Bilirubin, totalOrdered By: Reina Romero on 09-10-2024 Bilirubin [Mass/Vol] 0.19 mg/dL 0.00-1.30 [facility] CBC W/Diff, Automatedon Absolute Lymph 1.58 X10 3/uL Normal 0.83-4.51 [facility] Comment on above: Performed By: #### L 509.4006, L3890.6301, L3890.6006, L100.0100, L500.4050, BTS, L509.8002, L900.0098, L501.9985, L3890.6102 ####[facility] [address] [place], [place], [id number] Absolute Neut 5.1 X10 3/uL Normal 2.0-7.7 [facility] Comment on above: Performed By: #### L 509.4006, L3890.6301, L3890.6006, L100.0100, L500.4050, BTS, L509.8002, L900.0098, L501.9985, L3890.6102 ####[facility] [address] [place], [address] Basophils/100 WBC (Bld) 0.1 % Normal 0-1 [facility] Comment on above: Performed By: #### L 509.4006, L3890.6301, L3890.6006, L100.0100, L500.4050, BTS, L509.8002, L900.0098, L501.9985, L3890.6102 ####[facility] [address] [place], [address] Eosinophils/100 WBC (Bld) 2.6 % Normal 0-5 [facility] Comment on above: Performed By: #### L 509.4006, L3890.6301, L3890.6006, L100.0100, L500.4050, BTS, L509.8002, L900.0098, L501.9985, L3890.6102 ####[facility] [address] [place], [place], [phone] Erythrocyte distribution width (RBC) [Ratio] 12.0 % Normal 11.6-14.6 [facility] Comment on above: Performed By: #### L 509.4006, L3890.6301, L3890.6006, L100.0100, L500.4050, BTS, L509.8002, L900.0098, L501.9985, L3890.6102 ####[facility] [address] [place], [place], [phone] Hematocrit (Bld) [Volume fraction] 40.2 % Normal 37-47 [facility] Comment on above: Performed By: #### L 509.4006, L3890.6301, L3890.6006, L100.0100, L500.4050, BTS, L509.8002, L900.0098, L501.9985, L3890.6102 ####[facility] [address] [place], [address] Hemoglobin (Bld) [Mass/Vol] 13.9 g/dL Normal 12.0-15.0 [facility] Comment on above: Performed By: #### L 509.4006, L3890.6301, L3890.6006, L100.0100, L500.4050, BTS, L509.8002, L900.0098, L501.9985, L3890.6102 ####[facility] [address] [place], [address] IG% 0.300 Normal 0.0-0.9 [facility] Comment on above: Result Comment: IG% - Immature Granulocytes (promyelocytes, myelocytes andmetamyelocytes) > 1% indicates that a LEFT SHIFT is Present. Performed By: #### L 509.4006, L3890.6301, L3890.6006, L100.0100, L500.4050, BTS, L509.8002, L900.0098, L501.9985, L3890.6102 ####[facility] [address] [place], [address] Lymphocytes/100 WBC (Bld) 22.0 % Normal 19-41 [facility] Comment on above: Performed By: #### L 509.4006, L3890.6301, L3890.6006, L100.0100, L500.4050, BTS, L509.8002, L900.0098, L501.9985, L3890.6102 ####[facility] [address] [place], [address] MCH (RBC) [Entitic mass] 30.0 pg Normal 27.0-32.0 [facility] Comment on above: Performed By: #### L 509.4006, L3890.6301, L3890.6006, L100.0100, L500.4050, BTS, L509.8002, L900.0098, L501.9985, L3890.6102 ####[facility] [address] [facility] [place], [address] MCHC (RBC) [Mass/Vol] 34.6 g/dL Normal 32-36 [facility] Comment on above: Performed By: #### L 509.4006, L3890.6301, L3890.6006, L100.0100, L500.4050, BTS, L509.8002, L900.0098, L501.9985, L3890.6102 ####[facility] [address] [facility] [place], [address] MCV (RBC) [Entitic vol] 86.6 fL Normal 81-99 [facility] Comment on above: Performed By: #### L 509.4006, L3890.6301, L3890.6006, L100.0100, L500.4050, BTS, L509.8002, L900.0098, L501.9985, L3890.6102 ####[facility] [address] [facility] [place], [address] Monocytes/100 WBC (Bld) 4.3 % Normal 0-10 [facility] Comment on above: Performed By: #### L 509.4006, L3890.6301, L3890.6006, L100.0100, L500.4050, BTS, L509.8002, L900.0098, L501.9985, L3890.6102 ####[facility] [address] [place], [address] Neutrophils/100 WBC (Bld) 70.7 % High 47-70 [facility] Comment on above: Performed By: #### L 509.4006, L3890.6301, L3890.6006, L100.0100, L500.4050, BTS, L509.8002, L900.0098, L501.9985, L3890.6102 ####[facility] [address] [place], [address] Nucleated RBC (Bld) [#/Vol] 0 10*3/uL Normal 0-5 [facility] Comment on above: Performed By: #### L 509.4006, L3890.6301, L3890.6006, L100.0100, L500.4050, BTS, L509.8002, L900.0098, L501.9985, L3890.6102 ####[facility] [address] [place], [address] Platelet mean volume (Bld) [Entitic vol] 9.6 fL Normal 6.2-12.0 [facility] Comment on above: Performed By: #### L 509.4006, L3890.6301, L3890.6006, L100.0100, L500.4050, BTS, L509.8002, L900.0098, L501.9985, L3890.6102 ####[facility] [address] [place], [address] Platelets (Bld) [#/Vol] 281 10*3/uL Normal 150-450 [facility] Comment on above: Performed By: #### L 509.4006, L3890.6301, L3890.6006, L100.0100, L500.4050, BTS, L509.8002, L900.0098, L501.9985, L3890.6102 ####[facility] [address] [place], [address] RBC (Bld) [#/Vol] 4.64 10*6/uL Normal 4.2-5.4 [facility] Comment on above: Performed By: #### L 509.4006, L3890.6301, L3890.6006, L100.0100, L500.4050, BTS, L509.8002, L900.0098, L501.9985, L3890.6102 ####[facility] [address] [place], [address] RDW SD 37.5 fl Normal 35.1-43.9 [facility] Comment on above: Performed By: #### L 509.4006, L3890.6301, L3890.6006, L100.0100, L500.4050, BTS, L509.8002, L900.0098, L501.9985, L3890.6102 ####[facility] [address] [place], [address] WBC (Bld) [#/Vol] 7.2 10*3/uL Normal 4.4-11.0 [facility] Comment on above: Performed By: #### L 509.4006, L3890.6301, L3890.6006, L100.0100, L500.4050, BTS, L509.8002, L900.0098, L501.9985, L3890.6102 ####[facility] [address] [place], [place], [id number] Carbon dioxide, total [Moles /volume] in Central venous bloodOrdered By: Reina Romero on 09-10-2024 CO2 [Moles/Vol] 21.9 mmol/L 21.0-32.0 [facility] Chloride assayOrdered By: Wade Romero on 09-10-2024 Chloride [Moles/Vol] 104 mmol/L 98-108 [facility] Comprehensive Metabolic Prof ilon 09-10-2024 GAP 13 Normal 5-15 [facility] Comment on above: Order Comment: NIPT with Gender Performed By: #### L 509.4006, L3890.6301, L3890.6006, L100.0100, L500.4050, BTS, L509.8002, L900.0098, L501.9985, L3890.6102 ####[facility] [address] [place], [address] Albumin [Mass/Vol] 4.4 g/dL Normal 3.5-5.0 [facility] Comment on above: Order Comment: NIPT with Gender Performed By: #### L 509.4006, L3890.6301, L3890.6006, L100.0100, L500.4050, BTS, L509.8002, L900.0098, L501.9985, L3890.6102 ####[facility] [address] [place], [address] Albumin/Globulin [Mass ratio] 1.9 {ratio} Normal 0.9-2.4 [facility] Comment on above: Order Comment: NIPT with Gender Performed By: #### L 509.4006, L3890.6301, L3890.6006, L100.0100, L500.4050, BTS, L509.8002, L900.0098, L501.9985, L3890.6102 ####[facility] [address] [place], [place], [id number] ALK PHOS 60 U/L Normal 35-104 [facility] Comment on above: Order Comment: NIPT with Gender Performed By: #### L 509.4006, L3890.6301, L3890.6006, L100.0100, L500.4050, BTS, L509.8002, L900.0098, L501.9985, L3890.6102 ####[facility] [address] [place], [place], [id number] ALT [Catalytic activity/Vol] 22 U/L Normal <=34 [facility] Comment on above: Order Comment: NIPT with Gender Performed By: #### L 509.4006, L3890.6301, L3890.6006, L100.0100, L500.4050, BTS, L509.8002, L900.0098, L501.9985, L3890.6102 ####[facility] [address] [place], [place], [id number] AST [Catalytic activity/Vol] 17 U/L Normal <=31 [facility] Comment on above: Order Comment: NIPT with Gender Performed By: #### L 509.4006, L3890.6301, L3890.6006, L100.0100, L500.4050, BTS, L509.8002, L900.0098, L501.9985, L3890.6102 ####[facility] [address] [place], [place], [phone] Bilirubin [Mass/Vol] 0.19 mg/dL Normal 0.00-1.30 [facility] Comment on above: Order Comment: NIPT with Gender Performed By: #### L 509.4006, L3890.6301, L3890.6006, L100.0100, L500.4050, BTS, L509.8002, L900.0098, L501.9985, L3890.6102 ####[facility] [address] [place], [place], [id number] BUN/CRE 17.4 RATIO Normal 10-20 [facility] Comment on above: Order Comment: NIPT with Gender Performed By: #### L 509.4006, L3890.6301, L3890.6006, L100.0100, L500.4050, BTS, L509.8002, L900.0098, L501.9985, L3890.6102 ####[facility] [address] [place], [place], [id number] Calcium [Mass/Vol] 9.6 mg/dL Normal 7.6-11.0 [facility] Comment on above: Order Comment: NIPT with Gender Performed By: #### L 509.4006, L3890.6301, L3890.6006, L100.0100, L500.4050, BTS, L509.8002, L900.0098, L501.9985, L3890.6102 ####[facility] [address] [place], [address] Chloride [Moles/Vol] 104 mmol/L Normal 98-108 [facility] Comment on above: Order Comment: NIPT with Gender Performed By: #### L 509.4006, L3890.6301, L3890.6006, L100.0100, L500.4050, BTS, L509.8002, L900.0098, L501.9985, L3890.6102 ####[facility] [address] [place], [place], [phone]) CO2 [Moles/Vol] 21.9 mmol/L Normal 21.0-32.0 [facility] Comment on above: Order Comment: NIPT with Gender Performed By: #### L 509.4006, L3890.6301, L3890.6006, L100.0100, L500.4050, BTS, L509.8002, L900.0098, L501.9985, L3890.6102 ####[facility] [address] [place], [place], [id number] Creatinine [Mass/Vol] 0.58 mg/dL Low 0.70-1.20 [facility] Comment on above: Order Comment: NIPT with Gender Performed By: #### L 509.4006, L3890.6301, L3890.6006, L100.0100, L500.4050, BTS, L509.8002, L900.0098, L501.9985, L3890.6102 ####[facility] [address] [place], [address] GFR/1.73 sq M.predicted among non-blacks MDRD (S/P/Bld) [Vol rate/Area] 121 mL/min/{1.73_m2} Normal >60 [facility] Comment on above: Order Comment: NIPT with Gender Result Comment: mL/m in/1.73m2 CKD-EPI Creatinine Equation (2020) Performed By: #### L 509.4006, L3890.6301, L3890.6006, L100.0100, L500.4050, BTS, L509.8002, L900.0098, L501.9985, L3890.6102 ####[facility] [address] [place], [address] Globulin (S) [Mass/Vol] 2.3 g/dL Normal 2.2-4.2 [facility] Comment on above: Order Comment: NIPT with Gender Performed By: #### L 509.4006, L3890.6301, L3890.6006, L100.0100, L500.4050, BTS, L509.8002, L900.0098, L501.9985, L3890.6102 ####[facility] [address] [place], [place], [phone]) Glucose [Mass/Vol] 86 mg/dL Normal 70-99 [facility] Comment on above: Order Comment: NIPT with Gender Performed By: #### L 509.4006, L3890.6301, L3890.6006, L100.0100, L500.4050, BTS, L509.8002, L900.0098, L501.9985, L3890.6102 ####[facility] [address] [place], [address] Potassium [Moles/Vol] 3.9 mmol/L Normal 3.3-5.1 [facility] Comment on above: Order Comment: NIPT with Gender Performed By: #### L 509.4006, L3890.6301, L3890.6006, L100.0100, L500.4050, BTS, L509.8002, L900.0098, L501.9985, L3890.6102 ####[facility] [address] [place], [place], [phone]) Sodium [Moles/Vol] 139 mmol/L Normal 133-145 [facility] Comment on above: Order Comment: NIPT with Gender Performed By: #### L 509.4006, L3890.6301, L3890.6006, L100.0100, L500.4050, BTS, L509.8002, L900.0098, L501.9985, L3890.6102 ####[facility] [address] [place], [address] T PROT 6.7 g/dL Normal 5.9-8.4 [facility] Comment on above: Order Comment: NIPT with Gender Performed By: #### L 509.4006, L3890.6301, L3890.6006, L100.0100, L500.4050, BTS, L509.8002, L900.0098, L501.9985, L3890.6102 ####[facility] [address] [place], [address] Urea nitrogen [Mass/Vol] 10 mg/dL Normal 4-19 [facility] Comment on above: Order Comment: NIPT with Gender Performed By: #### L 509.4006, L3890.6301, L3890.6006, L100.0100, L500.4050, BTS, L509.8002, L900.0098, L501.9985, L3890.6102 ####[facility] [address] [place], [address] Eosinophil percentageOrdered By: Reina Romero on 09-10-2024 Eosinophils/100 WBC (Bld) 2.6 % 0-5 [facility] Erythrocyte distribution wid th ratioOrdered By: Reina Romero on 09-10-2024 Erythrocyte distribution width (RBC) [Ratio] 12.0 % 11.6-14.6 [facility] Erythrocyte distribution wid th standard deviationOrdered By: Reina Romero on 09-10-2024 Erythrocyte distribution width (RBC) [Entitic vol] 37.5 fL 35.1-43.9 [facility] Erythrocyte distribution width (RBC) [Ratio] 37.5 fl 35.1-43.9 [facility] GFR/1.73 sq M.predicted javier g non-blacks MDRD (S/P/Bld) [Vol rate/Area]Ordered By: Reina Romero on 09-10-2024 Estimated GFR (MDRD) Non-Af Amer 121 >60 [facility] Comment on above: mL/min/1.73m2 CKD-EP I Creatinine Equation (2020) Glomerular filtration rate ( GFR) estimation/1.73 sq m using serum, plasma, or whole bOrdered By: Reina Romero on 09-10-2024 GFR/1.73 sq M.predicted among non-blacks MDRD (S/P/Bld) [Vol rate/Area] 121 mL/min/{1.73_m2} >60 [facility] Comment on above: mL/min/1.73m2 CKD-EP I Creatinine Equation (2020) HBV surface Ag Ql (S)Ordered By: Reina Romero on 09-10-2024 Hepatitis B Surface Antigen Non-Reactive Nonreactive [facility] Comment on above: Reactive: Presumptiv e evidence of HBV. Repeatedly reactive samples must be confirmed using a neutralization test ([employer] HBsAg Confirmatory Test)Non-Reactive: HBsAg not detected; does not exclude the possibility of exposure to HBV Hematocrit Auto (Bld) [Volum e fraction]Ordered By: Reina Romero on 09-10-2024 Hematocrit (Bld) [Volume fraction] 40.2 % 37-47 [facility] Hemoglobin A1con 09-10-2024 HbA1c (Bld) [Mass fraction] 5.1 % Low <=5.6 [facility] Comment on above: Performed By: #### L 509.4006, L3890.6301, L3890.6006, L100.0100, L500.4050, BTS, L509.8002, L900.0098, L501.9985, L3890.6102 ####[facility] [address] [place], [place], [id number] Hemoglobin A1c percentageOrd ered By: Reina Romero on 09-10-2024 HbA1c (Bld) [Mass fraction] 5.1 % Low >5.7 [facility] Hemoglobin measurementOrdere d By: Reina Heather on 09-10-2024 Hemoglobin (Bld) [Mass/Vol] 13.9 g/dL 12.0-15.0 [facility] Hepatitis C antibodyOrdered By: Reina Heather on 09-10-2024 Hepatitis C Antibody Non-Reactive Nonreactive [facility] Comment on above: Reactive: Presumptiv e evidence of antibodies to HCV. Follow CDC recommendations for supplemental testing.Non-Reactive: Antibodies to HCV were not detected; does not exclude the possibility of exposure to HCVReactive Results are presumptive evidence of antibodies to HCV. Follow CDC recommendations for supplemental testing.Order confirmation testing: HCV Quant by PCR testing - HCVPCR #[id number] Non Reactive: < 0.8 Equivocal: >/= 0.8 to < 1.0 Reactive: >/= 1.0[facility] requires that a reactive/equivocal HCV antibody result be sent out for confirmation. HCV Quant by PCR testing. Immature granulocytes/100 WB C Auto (Bld)Ordered By: Reina Romero on 09-10-2024 Immature granulocytes/100 WBC (Bld) 0.300 % 0.0-0.9 [facility] Comment on above: IG% - Immature Granu locytes (promyelocytes, myelocytes and metamyelocytes) > 1% indicates that a LEFT SHIFT is Present. L3890.6006on 09-10-2024 HIV Non-Reactive Normal Nonreactive [facility] Comment on above: Result Comment: Non- ReactiveReactiveRepeatedly reactive samples must be confirmed according toCDC recommended confirmatory algorithms. The subresults foreither HIVAG or AHIV can be used as an aid in the selectionof the confirmation algorithm for reactive samples.Send out specimens with Reactive results to [facility] forconfirmation.Order the HIV antibody detection and differentiation:lc#[id number] Performed By: #### L 509.4006, L3890.6301, L3890.6006, L100.0100, L500.4050, BTS, L509.8002, L900.0098, L501.9985, L3890.6102 ####[facility] [address] [place], [place], [id number] L3890.6102on 09-10-2024 HEP B Surf Ag Non-Reactive Normal Nonreactive [facility] Comment on above: Result Comment: Reac tive: Presumptive evidence of HBV. Repeatedly reactivesamples must be confirmed using a neutralization test([employer] HBsAg Confirmatory Test)Non-Reactive: HBsAg not detected; does not exclude thepossibility of exposure to HBV Performed By: #### L 509.4006, L3890.6301, L3890.6006, L100.0100, L500.4050, BTS, L509.8002, L900.0098, L501.9985, L3890.6102 ####[facility] [address] [facility] [address] [place], [place], [id number] L3890.6301on 09-10-2024 Hepatitis C Ab Non-Reactive Normal Nonreactive [facility] Comment on above: Result Comment: Reac tive: Presumptive evidence of antibodies to HCV. FollowC recommendations for supplemental testing.Non-Reactive: Antibodies to HCV were not detected; does notexclude the possibility of exposure to HCVReactive Results are presumptive evidence of antibodies toHCV. Follow CDC recommendations for supplemental testing.Order confirmation testing: HCV Quant by PCR testing -HCVPCR #[id number] Non Reactive: < 0.8 Equivocal: >/= 0.8 to < 1.0 Reactive: >/= 1.0[facility] requires that a reactive/equivocal HCV antibodyresult be sent out for confirmation. HCV Quant by PCRtesting. Performed By: #### L 509.4006, L3890.6301, L3890.6006, L100.0100, L500.4050, BTS, L509.8002, L900.0098, L501.9985, L3890.6102 ####[facility] [address] [place], [place], [id number] L509.4006on 09-10-2024 Rubella IgG REAC Normal Nonreactive [facility] Comment on above: Result Comment: Anti body Result: InterpretationNon-Reactive: Non-ImmuneReactive: ImmuneThe following results were obtained with the ElecsysRubella IgG assay. Results from assays of othermanufacturers cannot be used interchangeably. Performed By: #### L 509.4006, L3890.6301, L3890.6006, L100.0100, L500.4050, BTS, L509.8002, L900.0098, L501.9985, L3890.6102 ####[facility] [address] [facility] [place], [place], [address] L509.8002on 09-10-2024 Syphilis Abs Non-Reactive Normal Nonreactive [facility] Comment on above: Performed By: #### L 509.4006, L3890.6301, L3890.6006, L100.0100, L500.4050, BTS, L509.8002, L900.0098, L501.9985, L3890.6102 ####[facility] [address] [facility] [place], [place], [id number] Laboratory - Chemistry and C hemistry - challengeOrdered By: Reina Romero on 09-10-2024 AST [Catalytic activity/Vol] 17 U/L <32 [facility] Glucose Ql (U) Negative [facility] Laboratory - Microbiology an d Antimicrobial susceptibilityOrdered By: Reina Romero on 09-10-2024 HBV surface Ag Ql (S) Non-Reactive Nonreactive [facility] Comment on above: Reactive: Presumptiv e evidence of HBV. Repeatedly reactive samples must be confirmed using a neutralization test ([employer] HBsAg Confirmatory Test)Non-Reactive: HBsAg not detected; does not exclude the possibility of exposure to HBV Laboratory - UrinalysisOrder ed By: Reina Romero on 09-10-2024 Protein Ql (U) Negative [facility] Lymphocytes Auto (Unsp spec) [#/Vol]Ordered By: Reina Romero on 09-10-2024 Lymphocytes (Bld) [#/Vol] 1.58 10*3/uL 0.83-4.51 [facility] Lymphocytes/100 WBC Auto (Un sp spec)Ordered By: Reina Romero on 09-10-2024 Lymphocytes/100 WBC (Bld) 22.0 % 19-41 [facility] MCV (mean corpuscular volume ) determinationOrdered By: Reina Romero on 09-10-2024 MCV (RBC) [Entitic vol] 86.6 fL 81-99 [facility] Mean corpuscular hemoglobin (MCH) determinationOrdered By: Reina Romero on 09-10-2024 MCH (RBC) [Entitic mass] 30.0 pg 27.0-32.0 [facility] Mean corpuscular hemoglobin concentration (MCHC) determinationOrdered By: Reina Romero on 09-10-2024 MCHC (RBC) [Mass/Vol] 34.6 g/dL 32-36 [facility] Mean platelet volume determi nationOrdered By: Reina Romero on 09-10-2024 Platelet mean volume (Bld) [Entitic vol] 9.6 fL 6.2-12.0 [facility] Miscellaneous procedureOrder ed By: Reina Romero on 09-10-2024 Miscellaneous Test Comment SEE SCANNED REPORT [facility] Monocyte percentageOrdered B y: Reina Romero on 09-10-2024 Monocytes/100 WBC (Bld) 4.3 % 0-10 [facility] NATERAon 09-10-2024 NATURA SEE SCANNED REPORT Normal [facility] Comment on above: Order Comment: Comme nts: NIPT with Gender Performed By: #### L 509.4006, L3890.6301, L3890.6006, L100.0100, L500.4050, BTS, L509.8002, L900.0098, L501.9985, L3890.6102 ####[facility] [address] [place], [address] Neutrophil percentageOrdered By: Reina Romero on 09-10-2024 Neutrophils/100 WBC (Bld) 70.7 % High 47-70 [facility] No Panel InformationOrdered By: Reina Romero on 09-10-2024 HIV (1&2) Antibody Non-Reactive Nonreactive [facility] Comment on above: Non-ReactiveReactive Repeatedly reactive samples must be confirmed according to CDC recommended confirmatory algorithms. The subresults for either HIVAG or AHIV can be used as an aid in the selection of the confirmation algorithm for reactive samples.Send out specimens with Reactive results to [facility] for confirmation.Order the HIV antibody detection and differentiation: #[id number] Nucleated red blood cell per centageOrdered By: Reina Romero on 09-10-2024 Nucleated RBC/100 WBC (Bld) [Ratio] 0 % 0-5 [facility] [employer] Office Visit Reporton 09-10-2024 [employer] Office Visit Report Normal [facility] Platelet countOrdered By: Wade Romero on 09-10-2024 Platelets (Bld) [#/Vol] 281 10*3/uL 150-450 [facility] Potassium (Unsp spec) [Mass/ Vol]Ordered By: Reina Romero on 09-10-2024 Potassium [Moles/Vol] 3.9 mmol/L 3.3-5.1 [facility] Potassium measurement (mass/ volume)Ordered By: Reina Romero on 09-10-2024 Potassium (Unsp spec) [Mass/Vol] 3.9 mmol/L 3.3-5.1 [facility] RBC Auto (Bld) [#/Vol]Ordere d By: Reina Romero on 09-10-2024 RBC (Bld) [#/Vol] 4.64 10*6/uL 4.2-5.4 [facility] Rubella immune status determ ination by IgG antibody assayOrdered By: Reina Romero on 09-10-2024 Rubella IgG Antibody REAC Nonreactive [facility] Comment on above: Antibody Result: Int erpretationNon-Reactive: Non-ImmuneReactive: ImmuneThe following results were obtained with the [employer] Rubella IgG assay. Results from assays of other manufacturers cannot be used interchangeably. Serum creatinine measurement (mass/volume)Ordered By: Reina Romero on 09-10-2024 Creatinine [Mass/Vol] 0.58 mg/dL Low 0.70-1.20 [facility] Serum globulin measurementOr dered By: Reina Romero on 09-10-2024 Globulin (S) [Mass/Vol] 2.3 g/dL 2.2-4.2 [facility] Serum glucose measurement (m ass/volume)Ordered By: Reina Romero on 09-10-2024 Glucose [Mass/Vol] 86 mg/dL 70-99 [facility] Serum or plasma alanine isabel otransferase (ALT) measurementOrdered By: Reina Romero on 09-10-2024 ALT [Catalytic activity/Vol] 22 U/L <35 [facility] Serum or plasma albumin jazmine urement (mass/volume)Ordered By: Reina Romero on 09-10-2024 Albumin [Mass/Vol] 4.4 g/dL 3.5-5.0 [facility] Serum or plasma albumin/glob ulin mass ratioOrdered By: Reina Romero on 09-10-2024 Albumin/Globulin [Mass ratio] 1.9 {ratio} 0.9-2.4 [facility] Serum or plasma alkaline molly sphatase measurementOrdered By: Reina Romero on 09-10-2024 ALP [Catalytic activity/Vol] 60 U/L 35-104 [facility] Serum or plasma calcium jazmine urement (mass/volume)Ordered By: Reina Romero on 09-10-2024 Calcium [Mass/Vol] 9.6 mg/dL 7.6-11.0 [facility] Serum or plasma urea nitroge n measurement (mass/volume)Ordered By: Reina Romero on 09-10-2024 Urea nitrogen [Mass/Vol] 10 mg/dL 4-19 [facility] Sodium levelOrdered By: Bernadine Romero on 09-10-2024 Sodium [Moles/Vol] 139 mmol/L 133-145 [facility] T. pallidum abOrdered By: Wade Romero on 09-10-2024 Syphilis Total Antibody Non-Reactive Nonreactiv e [facility] Total proteinOrdered By: Eleonora Romero on 09-10-2024 Protein [Mass/Vol] 6.7 g/dL 5.9-8.4 [facility] Type AND Screenon 09-10-2024 Ab SCREEN GEL Negative Normal [facility] Comment on above: Order Comment: PN Performed By: #### L 509.4006, L3890.6301, L3890.6006, L100.0100, L500.4050, BTS, L509.8002, L900.0098, L501.9985, L3890.6102 ####[facility] [address] [place], [address] White blood cell (WBC) count Ordered By: Reina Romero on 09-10-2024 WBC (Bld) [#/Vol] 7.2 10*3/uL 4.4-11.0 [facility] Laboratory - Chemistry and C hemistry - challengeOrdered By: Lawson Parry on 08-26-2024 Glucose Ql (U) Negative [facility] Laboratory - UrinalysisOrder ed By: Lawson Parry on 08-26-2024 Protein Ql (U) Negative [facility] [employer] Office Visit Reporton 08-26-2024 [employer] Office Visit Report Normal [facility] Wound Cultureon 08-23-2024 WC Normal [facility] Comment on above: Performed By: #### M 100.2000, M100.3000 ####[facility] [address] [place], [address] Urine Cultureon 08-16-2024 URC Mixed Gram Positive Organisms Groom Count <1000 MIXC Mixed contaminants. Submit a new specimen if indicated. Normal [facility] Comment on above: Performed By: #### L 501.0900, L7000.1800, M100.2200 ####[facility] [address] [place], [address] Chlamydia/GC GUCCI aptimaon CHLAMY,NUC ACID Negative Normal Negative [facility] Comment on above: Performed By: #### L 501.0900, L7000.1800, M100.2200 ####[facility] [address] [place], [address] GC BY NUC ACID Negative Normal Negative [facility] Comment on above: Result Comment: Perf ormed at: =G - [facility] [address] [place], [place] [id number] Director: Rachel Smallwood MD, Phone: [phone] Performed By: #### L 501.0900, L7000.1800, M100.2200 ####[facility] [address] [place], [place], [address] Gram Stainon 08-14-2024 GS vaginal inclusion cyst Gram Stain 1+ Epithelial cells 1+ Gram positive rods Normal [facility] Comment on above: Performed By: #### M 100.2000, M100.3000 ####[facility] [address] [place], [place], [id number] C. trachomatis rRNA GUCCI+prob e Ql (Unsp spec)Ordered By: Reina Romero on 08-13-2024 Chlamydia DNA (GUCCI) Negative Negative [facility] Chlamydia trachomatis rRNA d etection by probe and target amplification methodOrdered By: Reina Romero on 08-13-2024 C. trachomatis rRNA GUCCI+probe Ql (Unsp spec) Negative Negative [facility] Gram stainOrdered By: Nicolasa Romero on 08-13-2024 Microscopic observation Gram stain Nom (Unsp spec) [facility] Neisseria gonorrhoeae nuclei c acid detection by amplified probe techniqueOrdered By: Reina Romero on 08-13-2024 N. gonorrhoeae DNA GUCCI+probe Ql (Unsp spec) Negative Negative [facility] Comment on above: Performed at: =G - [facility] [address] [place], [place] [id number] Director: Rachel Smallwood MD, Phone: [phone] [employer] Office Visit Reporton 08-13-2024 [employer] Operator Office Visit Report Normal [facility] Protein+Creatinine Ratio,Uri neon 08-13-2024 PROT:CRE RATIO 90 mg/g CRE Normal 0-200 [facility] Comment on above: Performed By: #### L 501.0900, L7000.1800, M100.2200 ####[facility] [address] [place] [place], [address] Protein (U) [Mass/Vol] 8.8 mg/dL Normal <11.9 [facility] Comment on above: Performed By: #### L 501.0900, L7000.1800, M100.2200 ####[facility] [address] [place], [address] UR CREAT 98.30 mg/dL Normal NO RANGE EST. [facility] Comment on above: Performed By: #### L 501.0900, L7000.1800, M100.2200 ####[facility] [address] [place], [address] Protein/Creatinine (U) [Mass ratio]Ordered By: Reina Romero on 08-13-2024 Urine Protein/Creatinine Ratio 90 mg/g CRE 0-200 [facility] Random urine protein measure mentOrdered By: Reina Romero on 08-13-2024 Protein (U) [Mass/Vol] 8.8 mg/dL 0.0-11.8 [facility] Routine wound cultureOrdered By: Reina Romero on 08-13-2024 Wound Culture Streptococcus sanguinis Abnormal [facility] Wound Culture Presumptive C albicans Abnormal [facility] Wound Culture Actinomyces naeslundii Abnormal [facility] Urine creatinine measurement (mass/volume)Ordered By: Reina Romero on 08-13-2024 Creatinine (U) [Mass/Vol] 98.30 mg/dL NO RANGE EST. [facility] Urine cultureOrdered By: Eleonora Romero on 08-13-2024 Bacteria identified Cx Nom (U) Positive Abnormal [facility] Urine protein/creatinine mas s ratioOrdered By: Reina Romero on 08-13-2024 Protein/Creatinine (U) [Mass ratio] 90 mg/g CRE 0-200 [facility] Gastroenterology Visit Repor ton 07-08-2024 Gastroenterology Visit Report Normal [facility] Chlamydia/GC GUCCI aptimaon CHLAMY,NUC ACID Negative Normal Negative [facility] Comment on above: Performed By: #### L 7000.1800, M100.2000, M100.3200, M100.2200 ####[facility] [address] [place], [address] GC BY NUC ACID Negative Normal Negative [facility] Comment on above: Result Comment: Perf ormed at: =G - [facility] [address] [place] [id number] Director: Rachel Smallwood MD, Phone: [phone] Performed By: #### L 0.1800, M100.2000, M100.3200, M100.2200 ####[facility] [address] [place], [address] Genital Culture Comprehensiv coleman 06-27-2024 VAC Reason for Exam: vaginal discharge Normal vaginal yulia isolated. No yeast, Gardnerella, Neisseria or beta-hemolytic Streptococcus isolated. Normal [facility] Comment on above: Performed By: #### L 0.1800, M100.2000, M100.3200, M100.2200 ####[facility] [address] [place], [address] Urine Cultureon 06-27-2024 URC Culture exhibits no growth. Normal [facility] Comment on above: Performed By: #### L 0.1800, M100.2000, M100.3200, M100.2200 ####[facility] [address] [place], [address] C. trachomatis rRNA GUCCI+prob e Ql (Unsp spec)Ordered By: Ivett Marquez on 06-26-2024 Chlamydia DNA (GUCCI) Negative Negative [facility] Genital cultureOrdered By: Ernestina Marquez on 06-26-2024 Genital Culture Neisseria or beta-hemolytic Streptococcus isolated. [facility] Gram Stainon 06-26-2024 GS Reason for Exam: vaginal discharge Gram Stain 4+ Gram variable christoph Rare Gram positive rods No White Blood Cells Score = 8 Interpretation: 0-3 Normal, 4-6 Intermediate, 7-10 Positive BV Normal [facility] Comment on above: Performed By: #### L 7000.1800, M100.2000, M100.3200, M100.2200 ####[facility] [address] [place], [address] Gram stainOrdered By: Ivett Marquez on 06-26-2024 Microscopic observation Gram stain Nom (Unsp spec) [facility] Laboratory - Chemistry and C hemistry - challengeon 06-26-2024 Bilirubin Ql (U) Negative [facility] Glucose Ql (U) Negative [facility] Ketones Ql (U) Negative [facility] pH (U) 5 [pH] [facility] Specific gravity (U) [Rel density] 1.010 [facility] Urobilinogen (U) [Mass/Vol] Negative [facility] Laboratory - Hematology and Cell countson 06-26-2024 Hemoglobin Ql (U) Negative [facility] Laboratory - Specimen inform ationon 06-26-2024 Clarity (U) Clear [facility] Color (U) Yellow [facility] Laboratory - Urinalysison Nitrite Ql (U) Negative [facility] Protein Ql (U) Negative [facility] Neisseria gonorrhoeae nuclei c acid detection by amplified probe techniqueOrdered By: Ivett Marquez on 06-26-2024 N. gonorrhoeae DNA GUCCI+probe Ql (Unsp spec) Negative Negative [facility] Comment on above: Performed at: =[address] [id number] Director: Rachel Smallwood MD, Phone: [phone] No Panel Informationon 06-26 POC Trichomonas (Rapid) Negative [facility] Urine Leukocytes Positive [facility] Urine Non-Hemolyzed Blood [facility] [employer] Office Visit Reporton 06-26-2024 [employer] Office Visit Report Normal [facility] Urine cultureOrdered By: Mak Marquez on 06-26-2024 Bacteria identified Cx Nom (U) Culture exhibits no growth. [facility] Gastroenterology Visit Repor ton 06-24-2024 Gastroenterology Visit Report Normal [facility] Colonoscopy Reporton Colonoscopy Report Normal [facility] MR/POSTOP.ANEon 06-11-2024 MR/POSTOP.ANE Normal [facility] MR/[id number] 06-11-2024 MR/POSTOPAN2 Normal [facility] ,Urineon 06-11-2024 Beta HCG ( test) Ql (U) Negative Normal [facility] Comment on above: Result Comment: Very dilute urine specimens, as indicated by a low specificgravity, may not contain senior customer service representative levels of hCG.If is still suspected, a first morning urinespecimen should be collected 48 hours later and tested. Performed By: #### L 400.7600 ####[facility] [address] [place], [address] Urine testOrdered By: Jose Yanez on 06-11-2024 HCG ( test) Ql (U) Negative [facility] Comment on above: Very dilute urine sp ecimens, as indicated by a low specificgravity, may not contain senior customer service representative levels of hCG. If is still suspected, a first morning urinespecimen should be collected 48 hours later and tested. Inital Evaluation (1) - PTon 05-27-2024 Inital Evaluation (1) - PT Normal [facility] Celiac Disease Profileon ENDOMYSIAL IGA Negative Normal Negative [facility] Comment on above: Order Comment: N Performed By: #### L 3410.2400, L503.6150, L503.6075, L3100.1850, L3100.3425, L504.2610, L503.6550, L100.9950, L100.0100 ####[facility] [address] [place], [place], [id number] tTG IGA <2 Normal 0-3 [facility] Comment on above: Order Comment: N Result Comment: Nega tive 0 - 3 Weak Positive 4 - 10 Positive >10 Tissue Transglutaminase (tTG) has been identified as the endomysial antigen. Studies have demonstr- ated that endomysial IgA antibodies have over 99% specificity for gluten sensitive enteropathy. Performed By: #### L 3410.2400, L503.6150, L503.6075, L3100.1850, L3100.3425, L504.2610, L503.6550, L100.9950, L100.0100 ####[facility] [address] [place], [place], [id number] tTG IGG 3 U/mL Normal 0-5 [facility] Comment on above: Order Comment: N Result Comment: Nega tive 0 - 5 Weak Positive 6 - 9 Positive >9 Performed By: #### L 3410.2400, L503.6150, L503.6075, L3100.1850, L3100.3425, L504.2610, L503.6550, L100.9950, L100.0100 ####[facility] [address] [place], [place], [id number] Haptoglobinon 05-14-2024 HAPTOGLOBIN 86 mg/dL Normal 33-278 [facility] Comment on above: Order Comment: N Result Comment: Perf ormed at: - [facility] [place] [id number] Director: Sukhdev Cullen PhD, Phone: [phone] Performed By: #### L 3410.2400, L503.6150, L503.6075, L3100.1850, L3100.3425, L504.2610, L503.6550, L100.9950, L100.0100 ####[facility] [address] [place], [place], [phone] DELIA + Protein Elect, Serumon 05-14-2024 Albumin [Mass/Vol] 3.9 g/dL Normal 2.9-4.4 [facility] Comment on above: Order Comment: N Performed By: #### L 3410.2400, L503.6150, L503.6075, L3100.1850, L3100.3425, L504.2610, L503.6550, L100.9950, L100.0100 ####[facility] [address] [place], [address](007) Albumin/Globulin [Mass ratio] 1.6 {ratio} Normal 0.7-1.7 [facility] Comment on above: Order Comment: N Performed By: #### L 3410.2400, L503.6150, L503.6075, L3100.1850, L3100.3425, L504.2610, L503.6550, L100.9950, L100.0100 ####[facility] [address] [place], [address](804) PDZOK-9-WZCO 0.2 g/dL Normal 0.0-0.4 [facility] Comment on above: Order Comment: N Performed By: #### L 3410.2400, L503.6150, L503.6075, L3100.1850, L3100.3425, L504.2610, L503.6550, L100.9950, L100.0100 ####[facility] [address] [place], [address](086) RIGJZ-1-PVSM 0.6 g/dL Normal 0.4-1.0 [facility] Comment on above: Order Comment: N Performed By: #### L 3410.2400, L503.6150, L503.6075, L3100.1850, L3100.3425, L504.2610, L503.6550, L100.9950, L100.0100 ####[facility] [address] [place], [address](443) BETA GLOBULIN 0.9 g/dL Normal 0.7-1.3 [facility] Comment on above: Order Comment: N Performed By: #### L 3410.2400, L503.6150, L503.6075, L3100.1850, L3100.3425, L504.2610, L503.6550, L100.9950, L100.0100 ####[facility] [address] [place], [address](246) GAMMA GLOBULIN 0.9 g/dL Normal 0.4-1.8 [facility] Comment on above: Order Comment: N Performed By: #### L 3410.2400, L503.6150, L503.6075, L3100.1850, L3100.3425, L504.2610, L503.6550, L100.9950, L100.0100 ####[facility] [address] [place], [address] Globulin (S) [Mass/Vol] 2.6 g/dL Normal 2.2-3.9 [facility] Comment on above: Order Comment: N Performed By: #### L 3410.2400, L503.6150, L503.6075, L3100.1850, L3100.3425, L504.2610, L503.6550, L100.9950, L100.0100 ####[facility] [address] [place], [address] DELIA RESULT,S Comment Normal . [facility] Comment on above: Order Comment: N Result Comment: No m onoclonality detected. Performed By: #### L 3410.2400, L503.6150, L503.6075, L3100.1850, L3100.3425, L504.2610, L503.6550, L100.9950, L100.0100 ####[facility] [address] [place], [address] IMMUNOGLOB A QN 76 mg/dL Low 87-352 [facility] Comment on above: Order Comment: N Performed By: #### L 3410.2400, L503.6150, L503.6075, L3100.1850, L3100.3425, L504.2610, L503.6550, L100.9950, L100.0100 ####[facility] [address] [place], [address] IMMUNOGLOB G QN 922 mg/dL Normal 586-1602 [facility] Comment on above: Order Comment: N Performed By: #### L 3410.2400, L503.6150, L503.6075, L3100.1850, L3100.3425, L504.2610, L503.6550, L100.9950, L100.0100 ####[facility] [address] [place], [place], [phone](875) IMMUNOGLOB M QN 132 mg/dL Normal 26-217 [facility] Comment on above: Order Comment: N Performed By: #### L 3410.2400, L503.6150, L503.6075, L3100.1850, L3100.3425, L504.2610, L503.6550, L100.9950, L100.0100 ####[facility] [address] [place], [place], [id number] M-Isra Not Observed Normal Not Observed [facility] Comment on above: Order Comment: N Performed By: #### L 3410.2400, L503.6150, L503.6075, L3100.1850, L3100.3425, L504.2610, L503.6550, L100.9950, L100.0100 ####[facility] [address] [place], [place], [phone](264) NOTE: Comment Normal . [facility] Comment on above: Order Comment: N Result Comment: Prot ein electrophoresis scan will follow via computer,mail, or reports analysis manager delivery. Performed By: #### L 3410.2400, L503.6150, L503.6075, L3100.1850, L3100.3425, L504.2610, L503.6550, L100.9950, L100.0100 ####[facility] [address] [place], [place], [phone](224) Protein [Mass/Vol] 6.5 g/dL Normal 6.0-8.5 [facility] Comment on above: Order Comment: N Performed By: #### L 3410.2400, L503.6150, L503.6075, L3100.1850, L3100.3425, L504.2610, L503.6550, L100.9950, L100.0100 ####[facility] [address] [place], [address] CBC W/Diff, Automatedon 11-0 1-2023 Absolute Lymph 1.29 X10 3/uL Normal 0.83-4.51 [facility] Comment on above: Performed By: #### L 3410.2400, L503.6150, L503.6075, L3100.1850, L3100.3425, L504.2610, L503.6550, L100.9950, L100.0100 ####[facility] [address] [place], [address] Absolute Neut 2.6 X10 3/uL Normal 2.0-7.7 [facility] Comment on above: Performed By: #### L 3410.2400, L503.6150, L503.6075, L3100.1850, L3100.3425, L504.2610, L503.6550, L100.9950, L100.0100 ####[facility] [address] [place], [address] Basophils/100 WBC (Bld) 0.9 % Normal 0-1 [facility] Comment on above: Performed By: #### L 3410.2400, L503.6150, L503.6075, L3100.1850, L3100.3425, L504.2610, L503.6550, L100.9950, L100.0100 ####[facility] [address] [place], [address] Eosinophils/100 WBC (Bld) 3.8 % Normal 0-5 [facility] Comment on above: Performed By: #### L 3410.2400, L503.6150, L503.6075, L3100.1850, L3100.3425, L504.2610, L503.6550, L100.9950, L100.0100 ####[facility] [address] [place], [address](201) Erythrocyte distribution width (RBC) [Ratio] 13.4 % Normal 11.6-14.6 [facility] Comment on above: Performed By: #### L 3410.2400, L503.6150, L503.6075, L3100.1850, L3100.3425, L504.2610, L503.6550, L100.9950, L100.0100 ####[facility] [address] [place], [address](742) Hematocrit (Bld) [Volume fraction] 39.3 % Normal 37-47 [facility] Comment on above: Performed By: #### L 3410.2400, L503.6150, L503.6075, L3100.1850, L3100.3425, L504.2610, L503.6550, L100.9950, L100.0100 ####[facility] [address] [facility] [place], [address](928) Hemoglobin (Bld) [Mass/Vol] 13.0 g/dL Normal 12.0-15.0 [facility] Comment on above: Performed By: #### L 3410.2400, L503.6150, L503.6075, L3100.1850, L3100.3425, L504.2610, L503.6550, L100.9950, L100.0100 ####[facility] [address] [place], [address](812 IG% 0.700 Normal 0.0-0.9 [facility] Comment on above: Result Comment: IG% - Immature Granulocytes (promyelocytes, myelocytes andmetamyelocytes) > 1% indicates that a LEFT SHIFT is Present. Performed By: #### L 3410.2400, L503.6150, L503.6075, L3100.1850, L3100.3425, L504.2610, L503.6550, L100.9950, L100.0100 ####[facility] [address] [place], [address] Lymphocytes/100 WBC (Bld) 29.1 % Normal 19-41 [facility] Comment on above: Performed By: #### L 3410.2400, L503.6150, L503.6075, L3100.1850, L3100.3425, L504.2610, L503.6550, L100.9950, L100.0100 ####[facility] [address] [place] [place], [address] MCH (RBC) [Entitic mass] 29.5 pg Normal 27.0-32.0 [facility] Comment on above: Performed By: #### L 3410.2400, L503.6150, L503.6075, L3100.1850, L3100.3425, L504.2610, L503.6550, L100.9950, L100.0100 ####[facility] [address] [place], [address] MCHC (RBC) [Mass/Vol] 33.1 g/dL Normal 32-36 [facility] Comment on above: Performed By: #### L 3410.2400, L503.6150, L503.6075, L3100.1850, L3100.3425, L504.2610, L503.6550, L100.9950, L100.0100 ####[facility] [address] [place], [address] MCV (RBC) [Entitic vol] 89.1 fL Normal 81-99 [facility] Comment on above: Performed By: #### L 3410.2400, L503.6150, L503.6075, L3100.1850, L3100.3425, L504.2610, L503.6550, L100.9950, L100.0100 ####[facility] [address] [place], [address] Monocytes/100 WBC (Bld) 7.2 % Normal 0-10 [facility] Comment on above: Performed By: #### L 3410.2400, L503.6150, L503.6075, L3100.1850, L3100.3425, L504.2610, L503.6550, L100.9950, L100.0100 ####[facility] [address] [place], [address] Neutrophils/100 WBC (Bld) 58.3 % Normal 47-70 [facility] Comment on above: Performed By: #### L 3410.2400, L503.6150, L503.6075, L3100.1850, L3100.3425, L504.2610, L503.6550, L100.9950, L100.0100 ####[facility] [address] [place], [place], [phone](789) Nucleated RBC (Bld) [#/Vol] 0 10*3/uL Normal 0-5 [facility] Comment on above: Performed By: #### L 3410.2400, L503.6150, L503.6075, L3100.1850, L3100.3425, L504.2610, L503.6550, L100.9950, L100.0100 ####[facility] [address] [place], [address] Platelet mean volume (Bld) [Entitic vol] 9.3 fL Normal 6.2-12.0 [facility] Comment on above: Performed By: #### L 3410.2400, L503.6150, L503.6075, L3100.1850, L3100.3425, L504.2610, L503.6550, L100.9950, L100.0100 ####[facility] [address] [place], [address] Platelets (Bld) [#/Vol] 291 10*3/uL Normal 150-450 [facility] Comment on above: Performed By: #### L 3410.2400, L503.6150, L503.6075, L3100.1850, L3100.3425, L504.2610, L503.6550, L100.9950, L100.0100 ####[facility] [address] [place], [address] RBC (Bld) [#/Vol] 4.41 10*6/uL Normal 4.2-5.4 [facility] Comment on above: Performed By: #### L 3410.2400, L503.6150, L503.6075, L3100.1850, L3100.3425, L504.2610, L503.6550, L100.9950, L100.0100 ####[facility] [address] [place], [address] RDW SD 43.7 fl Normal 35.1-43.9 [facility] Comment on above: Performed By: #### L 3410.2400, L503.6150, L503.6075, L3100.1850, L3100.3425, L504.2610, L503.6550, L100.9950, L100.0100 ####[facility] [address] [place], [address] WBC (Bld) [#/Vol] 4.4 10*3/uL Normal 4.4-11.0 [facility] Comment on above: Performed By: #### L 3410.2400, L503.6150, L503.6075, L3100.1850, L3100.3425, L504.2610, L503.6550, L100.9950, L100.0100 ####[facility] [address] [place], [place], [address] Ferritinon 05-10-2024 Ferritin [Mass/Vol] 88 ng/mL Normal 8-252 [facility] Comment on above: Order Comment: 1 Performed By: #### L 3410.2400, L503.6150, L503.6075, L3100.1850, L3100.3425, L504.2610, L503.6550, L100.9950, L100.0100 ####[facility] [address] [place], [place], [address] Ironon 05-10-2024 Iron [Mass/Vol] 213 ug/dL High 50-170 [facility] Comment on above: Order Comment: 1 Performed By: #### L 3410.2400, L503.6150, L503.6075, L3100.1850, L3100.3425, L504.2610, L503.6550, L100.9950, L100.0100 ####[facility] [address] [place], [place], [id number] Iron Binding Capacity,Totalo n 05-10-2024 TIBC 279 ug/dL Normal 250-450 [facility] Comment on above: Order Comment: 1 Performed By: #### L 3410.2400, L503.6150, L503.6075, L3100.1850, L3100.3425, L504.2610, L503.6550, L100.9950, L100.0100 ####[facility] [address] [place], [address] LDHon 05-10-2024 LDH 161 U/L Normal 84-246 [facility] Comment on above: Order Comment: 1 Performed By: #### L 3410.2400, L503.6150, L503.6075, L3100.1850, L3100.3425, L504.2610, L503.6550, L100.9950, L100.0100 ####[facility] [address] [place], [address] Pellet Press Operator Office Visit Reporton 05-10-2024 Pellet Press Operator Office Visit Report Normal [facility] Retic Panelon 05-10-2024 IM RET FRACTION 9.90 Normal 3.00-15.90 [facility] Comment on above: Performed By: #### L 3410.2400, L503.6150, L503.6075, L3100.1850, L3100.3425, L504.2610, L503.6550, L100.9950, L100.0100 ####[facility] [address] [place], [address] RET-HE 34.1 pg Normal 30-35 [facility] Comment on above: Performed By: #### L 3410.2400, L503.6150, L503.6075, L3100.1850, L3100.3425, L504.2610, L503.6550, L100.9950, L100.0100 ####[facility] [address] [place], [address] Retic Count 2.28 High 0.5-1.5 [facility] Comment on above: Performed By: #### L 3410.2400, L503.6150, L503.6075, L3100.1850, L3100.3425, L504.2610, L503.6550, L100.9950, L100.0100 ####[facility] [address] [place], [address] Gastroenterology Visit Repor ton 04-23-2024 Gastroenterology Visit Report Normal [facility] Pellet Press Operator Office Visit Reporton 03-21-2024 Pellet Press Operator Office Visit Report Normal [facility] AST(SGOT)on 03-19-2024 AST [Catalytic activity/Vol] 8 U/L Low 15-37 [facility] Comment on above: Performed By: #### L 501.0900, L501.4100, L501.1105, L501.4405, L501.1400 ####[facility] [address] [place], [address] Alanine Aminotransferas (SGP T)on 03-19-2024 ALT [Catalytic activity/Vol] 9 U/L Low 13-56 [facility] Comment on above: Performed By: #### L 501.0900, L501.4100, L501.1105, L501.4405, L501.1400 ####[facility] [address] [place], [address] CBC W/Diff, Automatedon 03-10 PLT EST ADEQUATE Normal ADEQ [facility] Comment on above: Performed By: #### L 100.0100, BTS ####[facility] [address] [place], [address] Discharge Instructionon 03-10 Discharge Instruction Normal [facility] H AND P Exam - OB/GYNon 03-10 H&P Exam - BEAVER TRAPPER Normal [facility] L509.8000on 03-19-2024 Syphilis Abs Non-Reactive Normal [facility] Comment on above: Performed By: #### L 509.8000 ####[facility] [address] [place], [address] Operative Reporton Operative Report Normal [facility] Protein+Creatinine Ratio,Uri neon 03-19-2024 PROT:CRE RATIO 316 mg/g CRE High 0-200 [facility] Comment on above: Performed By: #### L 501.0900, L501.4100, L501.1105, L501.4405, L501.1400 ####[facility] [address] [place], [address] Protein (U) [Mass/Vol] 25.8 mg/dL High <11.9 [facility] Comment on above: Performed By: #### L 501.0900, L501.4100, L501.1105, L501.4405, L501.1400 ####[facility] [address] [place], [address] UR CREAT 81.60 mg/dL Normal NO RANGE EST. [facility] Comment on above: Performed By: #### L 501.0900, L501.4100, L501.1105, L501.4405, L501.1400 ####[facility] [address] [place], [address] Serum Creatinine AND GFRon 0 03-19-2024 Creatinine [Mass/Vol] 0.54 mg/dL Low 0.55-1.02 [facility] Comment on above: Result Comment: The validity of the calculated GFR GFRAA in patients over70 years has not been determined. Clinical correlation isessential. Performed By: #### L 501.0900, L501.4100, L501.1105, L501.4405, L501.1400 ####[facility] [address] [place], [address] ECRCL 159.36 ml/min Normal [facility] Comment on above: Performed By: #### L 501.0900, L501.4100, L501.1105, L501.4405, L501.1400 ####[facility] [address] [place], [address] EST GFR - AA 166 mL/min Normal >60 [facility] Comment on above: Result Comment: Afri can [place] GFR Calc Performed By: #### L 501.0900, L501.4100, L501.1105, L501.4405, L501.1400 ####[facility] [address] [place], [address] GFR/1.73 sq M.predicted among non-blacks MDRD (S/P/Bld) [Vol rate/Area] 137 mL/min/{1.73_m2} Normal >60 [facility] Comment on above: Result Comment: Non- GFR Calc Performed By: #### L 501.0900, L501.4100, L501.1105, L501.4405, L501.1400 ####[facility] [address] [place], [address] Type AND Screenon 03-19-2024 ABO and Rh group Nom (Bld) Blood group A Rh(D) positive Normal [facility] Comment on above: Order Comment: Labor Performed By: #### L 100.0100, BTS ####[facility] [address] [place], [address] Uric Acidon 03-19-2024 URIC 4.5 mg/dL Normal 2.6-6.0 [facility] Comment on above: Result Comment: The drugs N-Acetylcysteine and Metamizole may falselydepress this assay. Performed By: #### L 501.0900, L501.4100, L501.1105, L501.4405, L501.1400 ####[facility] [address] [place], [address] Genital Culture Comprehensiv coleman 03-13-2024 VAC Reason for Exam: vaginal irritation Presumptive C albicans Amount Growth 3+ Normal [facility] Comment on above: Performed By: #### M 100.1999, M100.3200 ####[facility] [address] [place], [address] Gram Stainon 03-12-2024 GS Reason for Exam: vaginal irritation Gram Stain 4+ Gram positive rods No Gram negative diplococci Score = 0 Interpretation: 0-3 Normal, 4-6 Intermediate, 7-10 Positive BV Normal [facility] Comment on above: Performed By: #### M 100.1999, M100.3200 ####[facility] [address] [place], [address] Pellet Press Operator Office Visit Reporton 03-12-2024 Pellet Press Operator Office Visit Report Normal [facility] CBC W/Diff, Automatedon 02-08 SMEAR COMMENT SCANNED Normal [facility] Comment on above: Performed By: #### L 100.0100 ####[facility] [address] [place], [address] CBC W/Diff, Automatedon 02-08 PLT EST ADEQUATE Normal ADEQ [facility] Comment on above: Performed By: #### L 100.0100, L500.4050, L501.0900 ####[facility] [address] [place], [address] SMEAR COMMENT SCANNED Normal [facility] Comment on above: Result Comment: Plea note: For this sample, a platelet estimate isprovided rather than a platelet count due to plateletclumping. Other parameters associated with this sample arenot affected by platelet clumping. If a more accurateplatelet count is required, a redraw of the patient will benecessary. Performed By: #### L 100.0100, L500.4050, L501.0900 ####[facility] [address] [place], [address] Comprehensive Metabolic Prof [facility] 03-05-2024 Albumin [Mass/Vol] 2.8 g/dL Low 3.2-5.0 [facility] Comment on above: Performed By: #### L 100.0100, L500.4050, L501.0900 ####[facility] [address] [place], [address] Albumin/Globulin [Mass ratio] 0.8 {ratio} Low 0.9-2.4 [facility] Comment on above: Performed By: #### L 100.0100, L500.4050, L501.0900 ####[facility] [address] [place], [address] ALK P 94 U/L Normal 45-117 [facility] Comment on above: Performed By: #### L 100.0100, L500.4050, L501.0900 ####[facility] [address] [place], [address] ALT [Catalytic activity/Vol] 14 U/L Normal 13-56 [facility] Comment on above: Performed By: #### L 100.0100, L500.4050, L501.0900 ####[facility] [address] [place], [address] AST [Catalytic activity/Vol] 12 U/L Low 15-37 [facility] Comment on above: Performed By: #### L 100.0100, L500.4050, L501.0900 ####[facility] [address] [place], [address] Bilirubin [Mass/Vol] 0.40 mg/dL Normal 0.20-1.00 [facility] Comment on above: Result Comment: For patients on eltrombopag therapy, use of Dimension [place] TBIL is not recommended. Performed By: #### L 100.0100, L500.4050, L501.0900 ####[facility] [address] [place], [address] BUN/CRE 12.5 RATIO Normal 10-20 [facility] Comment on above: Performed By: #### L 100.0100, L500.4050, L501.0900 ####[facility] [address] [place], [address] CA,Total 9.0 mg/dL Normal 8.5-10.1 [facility] Comment on above: Performed By: #### L 100.0100, L500.4050, L501.0900 ####[facility] [address] [place], [address] Chloride [Moles/Vol] 106 mmol/L Normal 98-107 [facility] Comment on above: Performed By: #### L 100.0100, L500.4050, L501.0900 ####[facility] [address] [place], [address] CO2 [Moles/Vol] 23.0 mmol/L Normal 21.0-32.0 [facility] Comment on above: Performed By: #### L 100.0100, L500.4050, L501.0900 ####[facility] [address] [place], [address] Creatinine [Mass/Vol] 0.56 mg/dL Normal 0.55-1.02 [facility] Comment on above: Result Comment: The validity of the calculated GFR GFRAA in patients over70 years has not been determined. Clinical correlation isessential. Performed By: #### L 100.0100, L500.4050, L501.0900 ####[facility] [address] [place], [address] EST GFR - AA 159 mL/min Normal >60 [facility] Comment on above: Result Comment: Afri can [place] GFR Calc Performed By: #### L 100.0100, L500.4050, L501.0900 ####[facility] [address] [place], [address] GAP 9 Normal 5-15 [facility] Comment on above: Performed By: #### L 100.0100, L500.4050, L501.0900 ####[facility] [address] [place], [address] GFR/1.73 sq M.predicted among non-blacks MDRD (S/P/Bld) [Vol rate/Area] 131 mL/min/{1.73_m2} Normal >60 [facility] Comment on above: Result Comment: Non- GFR Calc Performed By: #### L 100.0100, L500.4050, L501.0900 ####[facility] [address] [place], [address] Globulin (S) [Mass/Vol] 3.5 g/dL Normal 2.2-4.2 [facility] Comment on above: Performed By: #### L 100.0100, L500.4050, L501.0900 ####[facility] [address] [place], [address] Glucose [Mass/Vol] 82 mg/dL Normal 74-106 [facility] Comment on above: Performed By: #### L 100.0100, L500.4050, L501.0900 ####[facility] [address] [place], [address] Potassium [Moles/Vol] 3.7 mmol/L Normal 3.5-5.1 [facility] Comment on above: Performed By: #### L 100.0100, L500.4050, L501.0900 ####[facility] [address] [place], [address] Sodium [Moles/Vol] 138 mmol/L Normal 136-145 [facility] Comment on above: Performed By: #### L 100.0100, L500.4050, L501.0900 ####[facility] [address] [place], [address] T PROT 6.3 g/dL Low 6.4-8.2 [facility] Comment on above: Performed By: #### L 100.0100, L500.4050, L501.0900 ####[facility] [address] [place], [address] Urea nitrogen [Mass/Vol] 7 mg/dL Normal 7-18 [facility] Comment on above: Performed By: #### L 100.0100, L500.4050, L501.0900 ####[facility] [address] [place], [address] Protein+Creatinine Ratio,Uri neon 03-05-2024 PROT:CRE RATIO 188 mg/g CRE Normal 0-200 [facility] Comment on above: Performed By: #### L 100.0100, L500.4050, L501.0900 ####[facility] [address] [place], [address] Protein (U) [Mass/Vol] 54.0 mg/dL High <11.9 [facility] Comment on above: Performed By: #### L 100.0100, L500.4050, L501.0900 ####[facility] [address] [place], [address] UR CREAT 288.00 mg/dL Normal NO RANGE EST. [facility] Comment on above: Performed By: #### L 100.0100, L500.4050, L501.0900 ####[facility] [address] [place], [address] (ROM) Rupture Of Membraneson 03-04-2024 ROM Negative Normal Negative [facility] Comment on above: Order Comment: Comme nts: STAT Result Comment: Amni otic fluid not present indicates No Rupture of FetalMembranes at time of specimen collection. Performed By: #### L 205.1000 ####[facility] [address] [place], [address] CBC W/Diff, Automatedon 02-08 Absolute Neut Normal 2.0-7.7 [facility] Comment on above: Result Comment: NO S PECIMEN RECEIVED Performed By: #### L 501.0900, L500.4050, L100.0100 ####[facility] [address] [place], [address] HCT Normal 37-47 [facility] Comment on above: Result Comment: NO S PECIMEN RECEIVED Performed By: #### L 501.0900, L500.4050, L100.0100 ####[facility] [address] [place], [address] HGB Normal 12.0-15.0 [facility] Comment on above: Result Comment: NO S PECIMEN RECEIVED Performed By: #### L 501.0900, L500.4050, L100.0100 ####[facility] [address] [place], [address] MCH Normal 27.0-32.0 [facility] Comment on above: Result Comment: NO S PECIMEN RECEIVED Performed By: #### L 501.0900, L500.4050, L100.0100 ####[facility] [address] [place], [address] MCHC Normal 32-36 [facility] Comment on above: Result Comment: NO S PECIMEN RECEIVED Performed By: #### L 501.0900, L500.4050, L100.0100 ####[facility] [address] [place], [address] MCV Normal 81-99 [facility] Comment on above: Result Comment: NO S PECIMEN RECEIVED Performed By: #### L 501.0900, L500.4050, L100.0100 ####[facility] [address] [place], [address] NEUT% Normal 47-70 [facility] Comment on above: Result Comment: NO S PECIMEN RECEIVED Performed By: #### L 501.0900, L500.4050, L100.0100 ####[facility] [address] [place], [address] PLT Normal 150-450 [facility] Comment on above: Result Comment: NO S PECIMEN RECEIVED Performed By: #### L 501.0900, L500.4050, L100.0100 ####[facility] [address] [place], [address] RBC Normal 4.2-5.4 [facility] Comment on above: Result Comment: NO S PECIMEN RECEIVED Performed By: #### L 501.0900, L500.4050, L100.0100 ####[facility] [address] [place], [address] RDW CV Normal 11.6-14.6 [facility] Comment on above: Result Comment: NO S PECIMEN RECEIVED Performed By: #### L 501.0900, L500.4050, L100.0100 ####[facility] [address] [place], [address] RDW SD Normal 35.1-43.9 [facility] Comment on above: Result Comment: NO S PECIMEN RECEIVED Performed By: #### L 501.0900, L500.4050, L100.0100 ####[facility] [address] [place], [address] WBC Normal 4.4-11.0 [facility] Comment on above: Result Comment: NO S PECIMEN RECEIVED Performed By: #### L 501.0900, L500.4050, L100.0100 ####[facility] [address] [place], [address] Comprehensive Metabolic Prof ilon 03-04-2024 ALB Normal 3.2-5.0 [facility] Comment on above: Result Comment: NO S PECIMEN RECEIVED Performed By: #### L 501.0900, L500.4050, L100.0100 ####[facility] [address] [place], [address] ALK P Normal 45-117 [facility] Comment on above: Result Comment: NO S PECIMEN RECEIVED Performed By: #### L 501.0900, L500.4050, L100.0100 ####[facility] [address] [place], [address] ALT Normal 13-56 [facility] Comment on above: Result Comment: NO S PECIMEN RECEIVED Performed By: #### L 501.0900, L500.4050, L100.0100 ####[facility] [address] [place], [address] AST Normal 15-37 [facility] Comment on above: Result Comment: NO S PECIMEN RECEIVED Performed By: #### L 501.0900, L500.4050, L100.0100 ####[facility] [address] [place], [address] BUN Normal 7-18 [facility] Comment on above: Result Comment: NO S PECIMEN RECEIVED Performed By: #### L 501.0900, L500.4050, L100.0100 ####[facility] [address] [place], [address] BUN/CRE Normal 10-20 [facility] Comment on above: Result Comment: NO S PECIMEN RECEIVED Performed By: #### L 501.0900, L500.4050, L100.0100 ####[facility] [address] [place], [address] CA,Total Normal 8.5-10.1 [facility] Comment on above: Result Comment: NO S PECIMEN RECEIVED Performed By: #### L 501.0900, L500.4050, L100.0100 ####[facility] [address] [place], [address] CL Normal 98-107 [facility] Comment on above: Result Comment: NO S PECIMEN RECEIVED Performed By: #### L 501.0900, L500.4050, L100.0100 ####[facility] [address] [place], [address] CO2 Normal 21.0-32.0 [facility] Comment on above: Result Comment: NO S PECIMEN RECEIVED Performed By: #### L 501.0900, L500.4050, L100.0100 ####[facility] [address] [place], [address] CREAT,SERUM Normal 0.55-1.02 [facility] Comment on above: Result Comment: NO S PECIMEN RECEIVED Performed By: #### L 501.0900, L500.4050, L100.0100 ####[facility] [address] [place], [address] EST GFR Normal >60 [facility] Comment on above: Result Comment: NO S PECIMEN RECEIVED Performed By: #### L 501.0900, L500.4050, L100.0100 ####[facility] [address] [place], [address] EST GFR - AA Normal >60 [facility] Comment on above: Result Comment: NO S PECIMEN RECEIVED Performed By: #### L 501.0900, L500.4050, L100.0100 ####[facility] [address] [place], [address] GAP Normal 5-15 [facility] Comment on above: Result Comment: NO S PECIMEN RECEIVED Performed By: #### L 501.0900, L500.4050, L100.0100 ####[facility] [address] [place], [address] GLU Normal 74-106 [facility] Comment on above: Result Comment: NO S PECIMEN RECEIVED Performed By: #### L 501.0900, L500.4050, L100.0100 ####[facility] [address] [place], [address] Potassium Normal 3.5-5.1 [facility] Comment on above: Result Comment: NO S PECIMEN RECEIVED Performed By: #### L 501.0900, L500.4050, L100.0100 ####[facility] [address] [place], [address] T BILI Normal 0.20-1.00 [facility] Comment on above: Result Comment: NO S PECIMEN RECEIVED Performed By: #### L 501.0900, L500.4050, L100.0100 ####[facility] [address] [place], [address] T PROT Normal 6.4-8.2 [facility] Comment on above: Result Comment: NO S PECIMEN RECEIVED Performed By: #### L 501.0900, L500.4050, L100.0100 ####[facility] [address] [place], [address] Comprehensive Metabolic Profil Normal 136-145 [facility] Comment on above: Result Comment: NO S PECIMEN RECEIVED Performed By: #### L 501.0900, L500.4050, L100.0100 ####[facility] [address] [place], [address] [employer]let [employer] Office Visit Reporton 03-04-2024 Pellet [employer] Operator Office Visit Report Normal [facility] Protein+Creatinine Ratio,Uri neon 03-04-2024 PROT:CRE RATIO 152 mg/g CRE Normal 0-200 [facility] Comment on above: Performed By: #### L 501.0900, L500.4050, L100.0100 ####[facility] [address] [place], [address] Protein (U) [Mass/Vol] 39.2 mg/dL High <11.9 [facility] Comment on above: Performed By: #### L 501.0900, L500.4050, L100.0100 ####[facility] [address] [place], [address] UR CREAT 258.00 mg/dL Normal NO RANGE EST. [facility] Comment on above: Performed By: #### L 501.0900, L500.4050, L100.0100 ####[facility] [address] [place], [address] Rule out Beta Strep (Grp. B) on 02-28-2024 BONI Group B Beta Streptococcus is not isolated. Normal [facility] Comment on above: Performed By: #### M 100.3400 ####[facility] [address] [place], [address] CBC-Complete Blood Cnt No Di ffon 02-26-2024 PLT TNP Normal 150-450 [facility] Comment on above: Result Comment: José Miguel boston note: For this sample, a platelet estimate isprovided rather than a platelet count due to plateletclumping. Other parameters associated with this sample arenot affected by platelet clumping. If a more accurateplatelet count is required, a redraw of the patient will benecessary. Performed By: #### L 504.2610, L501.1400, L100.0500, L500.4050, L501.0900, L100.4500 ####[facility] [address] [place], [address] Erythrocyte distribution width (RBC) [Ratio] 13.3 % Normal 11.6-14.6 [facility] Comment on above: Performed By: #### L 504.2610, L501.1400, L100.0500, L500.4050, L501.0900, L100.4500 ####[facility] [address] [place], [address] Hematocrit (Bld) [Volume fraction] 33.1 % Low 37-47 [facility] Comment on above: Performed By: #### L 504.2610, L501.1400, L100.0500, L500.4050, L501.0900, L100.4500 ####[facility] [address] [place], [address] Hemoglobin (Bld) [Mass/Vol] 11.0 g/dL Low 12.0-15.0 [facility] Comment on above: Performed By: #### L 504.2610, L501.1400, L100.0500, L500.4050, L501.0900, L100.4500 ####[facility] [address] [place], [address] MCH (RBC) [Entitic mass] 30.5 pg Normal 27.0-32.0 [facility] Comment on above: Performed By: #### L 504.2610, L501.1400, L100.0500, L500.4050, L501.0900, L100.4500 ####[facility] [address] [place], [address] MCHC (RBC) [Mass/Vol] 33.2 g/dL Normal 32-36 [facility] Comment on above: Performed By: #### L 504.2610, L501.1400, L100.0500, L500.4050, L501.0900, L100.4500 ####[facility] [address] [place], [address] MCV (RBC) [Entitic vol] 91.7 fL Normal 81-99 [facility] Comment on above: Performed By: #### L 504.2610, L501.1400, L100.0500, L500.4050, L501.0900, L100.4500 ####[facility] [address] [place], [address] Platelet mean volume (Bld) [Entitic vol] 11.0 fL Normal 6.2-12.0 [facility] Comment on above: Performed By: #### L 504.2610, L501.1400, L100.0500, L500.4050, L501.0900, L100.4500 ####[facility] [address] [place], [address] RBC (Bld) [#/Vol] 3.61 10*6/uL Low 4.2-5.4 [facility] Comment on above: Performed By: #### L 504.2610, L501.1400, L100.0500, L500.4050, L501.0900, L100.4500 ####[facility] [address] [place], [address] RDW SD 43.6 fl Normal 35.1-43.9 [facility] Comment on above: Performed By: #### L 504.2610, L501.1400, L100.0500, L500.4050, L501.0900, L100.4500 ####[facility] [address] [place], [address] WBC (Bld) [#/Vol] 8.1 10*3/uL Normal 4.4-11.0 [facility] Comment on above: Performed By: #### L 504.2610, L501.1400, L100.0500, L500.4050, L501.0900, L100.4500 ####[facility] [address] [place], [address] Comprehensive Metabolic Prof [facility] 02-26-2024 Albumin [Mass/Vol] 2.5 g/dL Low 3.2-5.0 [facility] Comment on above: Order Comment: 1 Performed By: #### L 504.2610, L501.1400, L100.0500, L500.4050, L501.0900, L100.4500 ####[facility] [address] [place], [address] Albumin/Globulin [Mass ratio] 0.7 {ratio} Low 0.9-2.4 [facility] Comment on above: Order Comment: 1 Performed By: #### L 504.2610, L501.1400, L100.0500, L500.4050, L501.0900, L100.4500 ####[facility] [address] [place], [address] ALK P 78 U/L Normal 45-117 [facility] Comment on above: Order Comment: 1 Performed By: #### L 504.2610, L501.1400, L100.0500, L500.4050, L501.0900, L100.4500 ####[facility] [address] [place], [address] ALT [Catalytic activity/Vol] 14 U/L Normal 13-56 [facility] Comment on above: Order Comment: 1 Performed By: #### L 504.2610, L501.1400, L100.0500, L500.4050, L501.0900, L100.4500 ####[facility] [address] [place], [address] AST [Catalytic activity/Vol] 9 U/L Low 15-37 [facility] Comment on above: Order Comment: 1 Performed By: #### L 504.2610, L501.1400, L100.0500, L500.4050, L501.0900, L100.4500 ####[facility] [address] [place], [address] Bilirubin [Mass/Vol] 0.30 mg/dL Normal 0.20-1.00 [facility] Comment on above: Order Comment: 1 Result Comment: For patients on eltrombopag therapy, use of Dimension [place] TBIL is not recommended. Performed By: #### L 504.2610, L501.1400, L100.0500, L500.4050, L501.0900, L100.4500 ####[facility] [address] [place], [address] BUN/CRE 12.4 RATIO Normal 10-20 [facility] Comment on above: Order Comment: 1 Performed By: #### L 504.2610, L501.1400, L100.0500, L500.4050, L501.0900, L100.4500 ####[facility] [address] [place], [address] CA,Total 8.5 mg/dL Normal 8.5-10.1 [facility] Comment on above: Order Comment: 1 Performed By: #### L 504.2610, L501.1400, L100.0500, L500.4050, L501.0900, L100.4500 ####[facility] [address] [place], [address] Chloride [Moles/Vol] 109 mmol/L High 98-107 [facility] Comment on above: Order Comment: 1 Performed By: #### L 504.2610, L501.1400, L100.0500, L500.4050, L501.0900, L100.4500 ####[facility] [address] [place], [address] CO2 [Moles/Vol] 26.0 mmol/L Normal 21.0-32.0 [facility] Comment on above: Order Comment: 1 Performed By: #### L 504.2610, L501.1400, L100.0500, L500.4050, L501.0900, L100.4500 ####[facility] [address] [place], [address] Creatinine [Mass/Vol] 0.48 mg/dL Low 0.55-1.02 [facility] Comment on above: Order Comment: 1 Result Comment: The validity of the calculated GFR GFRAA in patients over70 years has not been determined. Clinical correlation isessential. Performed By: #### L 504.2610, L501.1400, L100.0500, L500.4050, L501.0900, L100.4500 ####[facility] [address] [place], [address] EST GFR - AA 188 mL/min Normal >60 [facility] Comment on above: Order Comment: 1 Result Comment: Afri can [place] GFR Calc Performed By: #### L 504.2610, L501.1400, L100.0500, L500.4050, L501.0900, L100.4500 ####[facility] [address] [place], [address] GAP 3 Low 5-15 [facility] Comment on above: Order Comment: 1 Performed By: #### L 504.2610, L501.1400, L100.0500, L500.4050, L501.0900, L100.4500 ####[facility] [address] [place], [address] GFR/1.73 sq M.predicted among non-blacks MDRD (S/P/Bld) [Vol rate/Area] 155 mL/min/{1.73_m2} Normal >60 [facility] Comment on above: Order Comment: 1 Result Comment: Non- GFR Calc Performed By: #### L 504.2610, L501.1400, L100.0500, L500.4050, L501.0900, L100.4500 ####[facility] [address] [place], [address] Globulin (S) [Mass/Vol] 3.5 g/dL Normal 2.2-4.2 [facility] Comment on above: Order Comment: 1 Performed By: #### L 504.2610, L501.1400, L100.0500, L500.4050, L501.0900, L100.4500 ####[facility] [address] [place], [address] Glucose [Mass/Vol] 87 mg/dL Normal 74-106 [facility] Comment on above: Order Comment: 1 Performed By: #### L 504.2610, L501.1400, L100.0500, L500.4050, L501.0900, L100.4500 ####[facility] [address] [place], [address] Potassium [Moles/Vol] 3.9 mmol/L Normal 3.5-5.1 [facility] Comment on above: Order Comment: 1 Performed By: #### L 504.2610, L501.1400, L100.0500, L500.4050, L501.0900, L100.4500 ####[facility] [address] [place], [address] Sodium [Moles/Vol] 138 mmol/L Normal 136-145 [facility] Comment on above: Order Comment: 1 Performed By: #### L 504.2610, L501.1400, L100.0500, L500.4050, L501.0900, L100.4500 ####[facility] [address] [place], [address] T PROT 6.0 g/dL Low 6.4-8.2 [facility] Comment on above: Order Comment: 1 Performed By: #### L 504.2610, L501.1400, L100.0500, L500.4050, L501.0900, L100.4500 ####[facility] [address] [place], [address] Urea nitrogen [Mass/Vol] 6 mg/dL Low 7-18 [facility] Comment on above: Order Comment: 1 Performed By: #### L 504.2610, L501.1400, L100.0500, L500.4050, L501.0900, L100.4500 ####[facility] [address] [place], [address] Differential Commenton 02-25 SMEAR COMMENT COMMENT Normal [facility] Comment on above: Result Comment: PLT COUNT NORMAL Performed By: #### L 504.2610, L501.1400, L100.0500, L500.4050, L501.0900, L100.4500 ####[facility] [address] [place], [address] LDHon 02-26-2024 LDH 139 U/L Normal 84-246 [facility] Comment on above: Order Comment: 1 Performed By: #### L 504.2610, L501.1400, L100.0500, L500.4050, L501.0900, L100.4500 ####[facility] [address] 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, [address] Protein (U) [Mass/Vol] 6.1 mg/dL Normal <11.9 [facility] Comment on above: Performed By: #### L 504.2610, L501.1400, L100.0500, L500.4050, L501.0900, L100.4500 ####[facility] [address] [place], [address] UR CREAT 23.00 mg/dL Normal NO RANGE EST. [facility] Comment on above: Performed By: #### L 504.2610, L501.1400, L100.0500, L500.4050, L501.0900, L100.4500 ####[facility] [address] [place], [address] Uric Acidon 02-26-2024 URIC 3.7 mg/dL Normal 2.6-6.0 [facility] Comment on above: Order Comment: 1 Result Comment: The drugs N-Acetylcysteine and Metamizole may falselydepress this assay. Performed By: #### L 504.2610, L501.1400, L100.0500, L500.4050, L501.0900, L100.4500 ####[facility] [id number] [place], [address] OB Triage Progress Noteon OB Triage Progress Note Normal [facility] [employer] Office Visit Reporton 02-22-2024 [employer] Office Visit Report Normal [facility] AST(SGOT)on 02-21-2024 AST [Catalytic activity/Vol] 10 U/L Low 15-37 [facility] Comment on above: Performed By: #### L 501.1105, L501.1400, L501.4100, L501.4405, L400.0001, L501.0900, L100.0500 ####[facility] [id number] [place], [address] Alanine Aminotransferas (SGP T)on 02-21-2024 ALT [Catalytic activity/Vol] 13 U/L Normal 13-56 [facility] Comment on above: Performed By: #### L 501.1105, L501.1400, L501.4100, L501.4405, L400.0001, L501.0900, L100.0500 ####[facility] [id number] [place], [address] CBC W/Diff, Automatedon 02-07 Absolute Lymph Normal 0.83-4.51 [facility] Comment on above: Performed By: #### L 100.0625, L100.0100 ####[facility] [address] [place], [address] Absolute Neut Normal 2.0-7.7 [facility] Comment on above: Performed By: #### L 100.0625, L100.0100 ####[facility] [address] [place], [address] BASO% Normal 0-1 [facility] Comment on above: Performed By: #### L 100.0625, L100.0100 ####[facility] [address] [place], [address] EO% Normal 0-5 [facility] Comment on above: Performed By: #### L 100.0625, L100.0100 ####[facility] [address] [place], [address] HCT Normal 37-47 [facility] Comment on above: Performed By: #### L 100.0625, L100.0100 ####[facility] [address] [place], [address] HGB Normal 12.0-15.0 [facility] Comment on above: Performed By: #### L 100.0625, L100.0100 ####[facility] [address] [place], [address] IG% Normal 0.0-0.9 [facility] Comment on above: Result Comment: IG% - Immature Granulocytes (promyelocytes, myelocytes andmetamyelocytes) > 1% indicates that a LEFT SHIFT is Present. Performed By: #### L 100.0625, L100.0100 ####[facility] [address] [place], [address] LY% Normal 19-41 [facility] Comment on above: Performed By: #### L 100.0625, L100.0100 ####[facility] [address] [place], [address] MCH Normal 27.0-32.0 [facility] Comment on above: Performed By: #### L 100.0625, L100.0100 ####[facility] [address] [place], [address] MCHC Normal 32-36 [facility] Comment on above: Performed By: #### L 100.0625, L100.0100 ####[facility] [address] [place], [address] MCV Normal 81-99 [facility] Comment on above: Performed By: #### L 100.0625, L100.0100 ####[facility] [address] [place], [address] MONO% Normal 0-10 [facility] Comment on above: Performed By: #### L 100.0625, L100.0100 ####[facility] [address] [place], [address] MPV Normal 6.2-12.0 [facility] Comment on above: Performed By: #### L 100.0625, L100.0100 ####[facility] [address] [place], [address] NEUT% Normal 47-70 [facility] Comment on above: Performed By: #### L 100.0625, L100.0100 ####[facility] [address] [place], [address] NUCLEATED RBC Normal 0-5 [facility] Comment on above: Performed By: #### L 100.0625, L100.0100 ####[facility] [address] [place], [address] RBC Normal 4.2-5.4 [facility] Comment on above: Performed By: #### L 100.0625, L100.0100 ####[facility] [address] [place], [address] RDW CV Normal 11.6-14.6 [facility] Comment on above: Performed By: #### L 100.0625, L100.0100 ####[facility] [address] [place], [address] RDW SD Normal 35.1-43.9 [facility] Comment on above: Performed By: #### L 100.0625, L100.0100 ####[facility] [address] [place], [address] WBC Normal 4.4-11.0 [facility] Comment on above: Performed By: #### L 100.0625, L100.0100 ####[facility] [address] [place], [address] BASO# Normal [facility] Comment on above: Performed By: #### L 100.0625, L100.0100 ####[facility] [address] [place], [address] EOS# Normal [facility] Comment on above: Performed By: #### L 100.0625, L100.0100 ####[facility] [address] [place], [address] IG# Normal [facility] Comment on above: Performed By: #### L 100.0625, L100.0100 ####[facility] [address] [place], [address] LYMPH# Normal [facility] Comment on above: Performed By: #### L 100.0625, L100.0100 ####[facility] [address] [place], [address] MONO # Normal [facility] Comment on above: Performed By: #### L 100.0625, L100.0100 ####[facility] [address] [place], [address] Neutrophil # Normal [facility] Comment on above: Performed By: #### L 100.0625, L100.0100 ####[facility] [address] [place], [address] CBC-Complete Blood Cnt No Di ffon 02-21-2024 PLT TNP Normal 150-450 [facility] Comment on above: Result Comment: José Miguel boston note: For this sample, a platelet estimate isprovided rather than a platelet count due to plateletclumping. Other parameters associated with this sample arenot affected by platelet clumping. If a more accurateplatelet count is required, a redraw of the patient will benecessary. Performed By: #### L 501.1105, L501.1400, L501.4100, L501.4405, L400.0001, L501.0900, L100.0500 ####[facility] [address] [place], [address] PLATELET COUNTon 02-21-2024 Platelets (Bld) [#/Vol] 151 10*3/uL Normal 150-450 [facility] Comment on above: Performed By: #### L 100.0625, L100.0100 ####[facility] [address] [place], [address] Protein+Creatinine Ratio,Uri neon 02-21-2024 PROT:CRE RATIO 116 mg/g CRE Normal 0-200 [facility] Comment on above: Performed By: #### L 501.1105, L501.1400, L501.4100, L501.4405, L400.0001, L501.0900, L100.0500 ####[facility] [address] [place], [address] Protein (U) [Mass/Vol] 11.9 mg/dL High <11.9 [facility] Comment on above: Performed By: #### L 501.1105, L501.1400, L501.4100, L501.4405, L400.0001, L501.0900, L100.0500 ####[facility] [address] [place], [address] UR CREAT 103.00 mg/dL Normal NO RANGE EST. [facility] Comment on above: Performed By: #### L 501.1105, L501.1400, L501.4100, L501.4405, L400.0001, L501.0900, L100.0500 ####[facility] [address] [place], [address] Serum Creatinine AND GFRon 0 02-21-2024 Creatinine [Mass/Vol] 0.50 mg/dL Low 0.55-1.02 [facility] Comment on above: Result Comment: The validity of the calculated GFR GFRAA in patients over70 years has not been determined. Clinical correlation isessential. Performed By: #### L 501.1105, L501.1400, L501.4100, L501.4405, L400.0001, L501.0900, L100.0500 ####[facility] [address] [place], [address] ECRCL 170.96 ml/min Normal [facility] Comment on above: Performed By: #### L 501.1105, L501.1400, L501.4100, L501.4405, L400.0001, L501.0900, L100.0500 ####[facility] [address] [place], [address] EST GFR - AA 180 mL/min Normal >60 [facility] Comment on above: Result Comment: Afri can [place] GFR Calc Performed By: #### L 501.1105, L501.1400, L501.4100, L501.4405, L400.0001, L501.0900, L100.0500 ####[facility] [address] [place], [address] GFR/1.73 sq M.predicted among non-blacks MDRD (S/P/Bld) [Vol rate/Area] 149 mL/min/{1.73_m2} Normal >60 [facility] Comment on above: Result Comment: Non- GFR Calc Performed By: #### L 501.1105, L501.1400, L501.4100, L501.4405, L400.0001, L501.0900, L100.0500 ####[facility] [address] [place], [address] Uric Acidon 02-21-2024 URIC 4.5 mg/dL Normal 2.6-6.0 [facility] Comment on above: Result Comment: The drugs N-Acetylcysteine and Metamizole may falselydepress this assay. Performed By: #### L 501.1105, L501.1400, L501.4100, L501.4405, L400.0001, L501.0900, L100.0500 ####[facility] [address] [place], [address] Urinalysis, Completeon 02-20 BACTERIA RARE Normal None Seen [facility] Comment on above: Order Comment: LUCRECIA CTOR TO SPECIFY Performed By: #### L 501.1105, L501.1400, L501.4100, L501.4405, L400.0001, L501.0900, L100.0500 ####[facility] [address] [place], [address] EPI,SQUAMOUS 0-5 SEEN Normal 5-10 [facility] Comment on above: Order Comment: LUCRECIA CTOR TO SPECIFY Performed By: #### L 501.1105, L501.1400, L501.4100, L501.4405, L400.0001, L501.0900, L100.0500 ####[facility] [address] [place], [address] Mucus Ql (Urine sed) 0 SEEN Normal [facility] Comment on above: Order Comment: LUCRECIA CTOR TO SPECIFY Performed By: #### L 501.1105, L501.1400, L501.4100, L501.4405, L400.0001, L501.0900, L100.0500 ####[facility] [address] [place], [address] RBC 0 SEEN Normal 0-5 [facility] Comment on above: Order Comment: LUCRECIA CTOR TO SPECIFY Performed By: #### L 501.1105, L501.1400, L501.4100, L501.4405, L400.0001, L501.0900, L100.0500 ####[facility] [address] [place], [place], [address] WBC 0 SEEN Normal 0-5 [facility] Comment on above: Order Comment: COLLE CTOR TO SPECIFY Performed By: #### L 501.1105, L501.1400, L501.4100, L501.4405, L400.0001, L501.0900, L100.0500 ####[facility] [address] 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 [facility] Gram stain for investigation of transfusion reactionOrdered By: Piedad Moreno on 10-20-2023 Microscopic observation Gram stain Nom (Unsp spec) [facility] Laboratory - Chemistry and C hemistry - challengeon 10-20-2023 Bilirubin Ql (U) Negative [facility] Glucose Ql (U) Negative [facility] Ketones Ql (U) Small (15+) [facility] pH (U) 5 [pH] [facility] Specific gravity (U) [Rel density] 1.010 [facility] Urobilinogen (U) [Mass/Vol] Negative [facility] Laboratory - Hematology and Cell countson 10-20-2023 Hemoglobin Ql (U) Negative [facility] Laboratory - Specimen inform ationon 10-20-2023 Clarity (U) Clear [facility] Color (U) Colorless [facility] Laboratory - Urinalysison Nitrite Ql (U) Negative [facility] Protein Ql (U) Negative [facility] No Panel InformationOrdered By: Piedad Moreno on 10-20-2023 Genital Culture Presumptive C albicans [facility] No Panel Informationon 10-19 Urine Leukocytes Negatve [facility] Urine Non-Hemolyzed Blood Negative [facility] Laboratory - Chemistry and C hemistry - challengeon 09-19-2023 Glucose Ql (U) Negative [facility] Laboratory - Urinalysison Protein Ql (U) Negative [facility] Absolute lymphocyte countOrd ered By: Reina Romero on 09-12-2023 Lymphocytes Auto (Unsp spec) [#/Vol] 1.42 10*3/uL 0.83-4.51 [facility] Automated lymphocyte count a s percentage of total leukocytesOrdered By: Reina Romero on 09-12-2023 Lymphocytes/100 WBC Auto (Unsp spec) 23.9 % 19-41 [facility] Basophil percentageOrdered B y: Reina Romero on 09-12-2023 Basophils/100 WBC (Bld) 0.3 % 0-1 [facility] Bilirubin [Mass/Vol] 0.70 mg/dL 0.20-1.00 [facility] Comment on above: For patients on eltr ombopag therapy, use of Dimension [place] TBIL is not recommended. Chloride [Moles/Vol] 107 mmol/L 98-107 [facility] Eosinophils/100 WBC (Bld) 2.4 % 0-5 [facility] Glucose [Mass/Vol] 67 mg/dL 74-106 [facility] Hemoglobin (Bld) [Mass/Vol] 12.4 g/dL 12.0-15.0 [facility] Monocytes/100 WBC (Bld) 5.2 % 0-10 [facility] Neutrophils (Bld) [#/Vol] 4.1 10*3/uL 2.0-7.7 [facility] Neutrophils/100 WBC (Bld) 68.0 % 47-70 [facility] Potassium [Moles/Vol] 3.2 mmol/L 3.5-5.1 [facility] Protein [Mass/Vol] 6.9 g/dL 6.4-8.2 [facility] Sodium [Moles/Vol] 139 mmol/L 136-145 [facility] WBC (Bld) [#/Vol] 6.0 10*3/uL 4.4-11.0 [facility] Determination of erythrocyte mean corpuscular volume (MCV)Ordered By: Reina Romero on 09-12-2023 MCV (RBC) [Entitic vol] 87.5 fL 81-99 [facility] Erythrocyte distribution wid th ratioOrdered By: Reina Romero on 09-12-2023 Erythrocyte distribution width (RBC) [Ratio] 12.5 % 11.6-14.6 [facility] Erythrocyte distribution wid th standard deviationOrdered By: Reian Romero on 09-12-2023 Erythrocyte distribution width (RBC) [Entitic vol] 39.5 fL 35.1-43.9 [facility] HIV 1 and HIV-2 antibody ass ay with HIV-1 p24 antigen detectionOrdered By: Reina Romero on 09-12-2023 HIV 1+2 Ab+HIV1 p24 Ag IA Ql Non-Reactive Nonreactive [facility] Hematocrit Auto (Bld) [Volum e fraction]Ordered By: Reina Romero on 09-12-2023 Hematocrit (Bld) [Volume fraction] 35.7 % 37-47 [facility] Immature granulocytes/100 WB C Auto (Bld)Ordered By: Reina Romero on 09-12-2023 Immature granulocytes/100 WBC (Bld) 0.200 % 0.0-0.9 [facility] Comment on above: IG% - Immature Granu locytes (promyelocytes, myelocytes and metamyelocytes) > 1% indicates that a LEFT SHIFT is Present. Laboratory - Chemistry and C hemistry - challengeOrdered By: Reina Romero on 09-12-2023 Albumin/Globulin [Mass ratio] 1.2 {ratio} 0.9-2.4 [facility] ALP [Catalytic activity/Vol] 46 U/L 45-117 [facility] ALT [Catalytic activity/Vol] 15 U/L 13-56 [facility] CO2 [Moles/Vol] 23.0 mmol/L 21.0-32.0 [facility] Globulin (S) [Mass/Vol] 3.2 g/dL 2.2-4.2 [facility] Urea nitrogen/Creatinine [Mass ratio] 16.5 mg/mg 10-20 [facility] Laboratory - Hematology and Cell countsOrdered By: Reina Romero on 09-12-2023 MCH (RBC) [Entitic mass] 30.4 pg 27.0-32.0 [facility] MCHC (RBC) [Mass/Vol] 34.7 g/dL 32-36 [facility] Nucleated RBC/100 WBC (Bld) [Ratio] 0 % 0-5 [facility] Platelet mean volume (Bld) [Entitic vol] 9.3 fL 6.2-12.0 [facility] Platelets (Bld) [#/Vol] 258 10*3/uL 150-450 [facility] No Panel InformationOrdered By: Reina Romero on 09-12-2023 Estimated GFR (MDRD) Amer 145 mL/min >60 [facility] Comment on above: GFR Calc Estimated GFR (MDRD) Non-Af Amer 119 mL/min >60 [facility] Comment on above: Non- GFR Calc Hepatitis B Surface Antigen Non-Reactive Nonreactive [facility] Hepatitis C Antibody Non-Reactive Nonreactive [facility] Comment on above: Non Reactive: < 0.8 Equivocal: >/= 0.8 to < 1.0 Reactive: >/= 1.0The CDC requires that a reactive/equivocal HCV antibody result be sent out for confirmation. HCV Quant by PCR testing. Miscellaneous Test Comment SEE SCANNED REPORT [facility] Rubella IgG Antibody Reactive Nonreactive [facility] Comment on above: Antibody Results Int erpretation of Immune Status Non Reactive Presumed Non-Immune Equivocal Equivocal Reactive Presumed Immune RBC Auto (Bld) [#/Vol]Ordere d By: Reina Romero on 09-12-2023 RBC (Bld) [#/Vol] 4.08 10*6/uL 4.2-5.4 [facility] Serum Treponema species anti body detectionOrdered By: Reina Romero on 09-12-2023 Treponema sp Ab Ql (S) Non-Reactive [facility] Serum or plasma calcium jazmine urement (mass/volume)Ordered By: Reina Romero on 09-12-2023 Calcium [Mass/Vol] 9.2 mg/dL 8.5-10.1 [facility] Serum or plasma creatinine m easurement (mass/volume)Ordered By: Reina Romero on 09-12-2023 Creatinine [Mass/Vol] 0.61 mg/dL 0.55-1.02 [facility] Comment on above: The validity of the calculated GFR & GFRAA in patients over 70 years has not been determined. Clinical correlation is essential. Serum or plasma urea nitroge n measurement (mass/volume)Ordered By: Reina Romero on 09-12-2023 Urea nitrogen [Mass/Vol] 10 mg/dL 7-18 [facility] Thin prep Papanicolaou smear with manual screeningOrdered By: Reina Romero on 09-12-2023 Thin prep Papanicolaou smear with manual screening 3.7 g/dL 3.2-5.0 [facility] Thin prep Papanicolaou smear with manual screening 11 U/L 15-37 [facility] Thin prep Papanicolaou smear with manual screening 9 5-15 [facility] Chlamydia trachomatis rRNA d etection by probe and target amplification methodOrdered By: Reina Romero on 08-21-2023 C. trachomatis rRNA GUCCI+probe Ql (Unsp spec) Negative Negative [facility] Culture, urineOrdered By: Wade Romero on 08-21-2023 Bacteria identified Cx Nom (U) Culture exhibits no growth. [facility] Bacteria identified Cx Nom (U) Culture exhibits no growth. [facility] Laboratory - Microbiology an d Antimicrobial susceptibilityOrdered By: Reina Romero on 08-21-2023 N. gonorrhoeae DNA GUCCI+probe Ql (Unsp spec) Negative Negative [facility] Comment on above: Performed at: =G - [facility] [address] [id number] Director: Rachel Smallwood MD, Phone: [phone] Thin prep Papanicolaou smear with manual screeningOrdered By: Reina Romero on 08-21-2023 Protein (U) [Mass/Vol] 10.0 mg/dL 0.0-11.8 [facility] Urine creatinine measurement (mass/volume)Ordered By: Reina Romero on 08-21-2023 Creatinine (U) [Mass/Vol] 70.10 mg/dL NO RANGE EST. [facility] Urine protein/creatinine mas s ratioOrdered By: Reina Romero on 08-21-2023 Protein/Creatinine (U) [Mass ratio] 143 mg/g CRE 0-200 [facility] Absolute lymphocyte countOrd ered By: Cholo Smith on 05-26-2023 Lymphocytes Auto (Unsp spec) [#/Vol] 1.71 10*3/uL 0.83-4.51 [facility] Basophil percentageOrdered B y: Cholo Smith on 05-26-2023 Basophils/100 WBC (Bld) 1.1 % 0-1 [facility] Eosinophils/100 WBC (Bld) 3.6 % 0-5 [facility] Neutrophils (Bld) [#/Vol] 2.5 10*3/uL 2.0-7.7 [facility] Neutrophils/100 WBC (Bld) 52.6 % 47-70 [facility] WBC (Bld) [#/Vol] 4.7 10*3/uL 4.4-11.0 [facility] Blood erythrocytes count (nu mber/volume)Ordered By: Cholo Smith on 05-26-2023 RBC (Bld) [#/Vol] 4.24 10*6/uL 4.2-5.4 [facility] Blood hemoglobin measurement (mass/volume)Ordered By: Cholo Smith on 05-26-2023 Hemoglobin (Bld) [Mass/Vol] 13.4 g/dL 12.0-15.0 [facility] Blood lymphocytes/100 leukoc ytesOrdered By: Cholo Smith on 05-26-2023 Lymphocytes/100 WBC (Bld) 36.3 % 19-41 [facility] Blood monocytes/100 leukocyt esOrdered By: Cholo Smith on 05-26-2023 Monocytes/100 WBC (Bld) 6.2 % 0-10 [facility] Blood platelet mean volumeOr dered By: Cholo Smith on 05-26-2023 Platelet mean volume (Bld) [Entitic vol] 9.5 fL 6.2-12.0 [facility] Determination of erythrocyte mean corpuscular volume (MCV)Ordered By: Cholo Smith on 05-26-2023 MCV (RBC) [Entitic vol] 92.0 fL 81-99 [facility] Hematocrit Auto (Bld) [Volum e fraction]Ordered By: Cholo Smith on 05-26-2023 Hematocrit (Bld) [Volume fraction] 39.0 % 37-47 [facility] Iron measurement (mass/mass) Ordered By: Cholo Smith on 05-26-2023 Iron (Unsp spec) [Mass/Mass] 49 ug/dL 50-170 [facility] Laboratory - Hematology and Cell countsOrdered By: Cholo Smith on 05-26-2023 Erythrocyte distribution width (RBC) [Entitic vol] 44.3 fL 35.1-43.9 [facility] Erythrocyte distribution width (RBC) [Ratio] 13.5 % 11.6-14.6 [facility] Immature granulocytes/100 WBC (Bld) 0.200 % 0.0-0.9 [facility] Comment on above: IG% - Immature Granu locytes (promyelocytes, myelocytes and metamyelocytes) > 1% indicates that a LEFT SHIFT is Present. MCH (RBC) [Entitic mass] 31.6 pg 27.0-32.0 [facility] Nucleated RBC/100 WBC (Bld) [Ratio] 0 % 0-5 [facility] MCHC Auto (RBC) [Mass/Vol]Or dered By: Cholo Smith on 05-26-2023 MCHC (RBC) [Mass/Vol] 34.4 g/dL 32-36 [facility] Platelets bldOrdered By: Migdalia Smith on 05-26-2023 Platelets (Bld) [#/Vol] 349 10*3/uL 150-450 [facility] Serum or plasma ferritin esther surement (mass/volume)Ordered By: Cholo Smith on 05-26-2023 Ferritin [Mass/Vol] 11 ng/mL 8-252 [facility] XR Tibia and Fibula - left A P and Lateralon 05-15-2023 IMPRESSION: Negative Restaurant Shift Leader: MALOU Transcribe Date/Time: May 15 2023 10:18A Dictated by : JENNI CHINCHILLA MD This examination was interpreted and the report reviewed and electronically signed by: JENNI CHINCHILLA MD on May 15 2023 10:18AM [facility] * * *Final Report* * * [...] joint spaces and soft tissues are unremarkable. [facility] Provider, [facility] - 05/15/2023 * * *Final Report* * [...] soft tissues are unremarkable. IMPRESSION IMPRESSION: Negative Restaurant Shift Leader: PSCB Transcribe Date/Time: May 15 2023 10:18A Dictated by : JENNI CHINCHILLA MD This examination was interpreted and the report reviewed and electronically signed by: JENNI CHINCHILLA MD on May 15 2023 10:18AM [facility] XR Tibia and Fibula - left A P and LateralOrdered By: Ccf Provider on 05-15-2023 [facility] CNOVon 05-12-2023 CNOV Office Visit (ORMDNA ) MANDI VALENTE ([id number]) 1990 F Date Time Provider Department 05/12/23 10:30 AM KELLY CALABRESE During your visit today, we recorded the following information about you: Kelly Calabrese PA-C 05/12/2023 2:41 PM Signed Kelly Calabrese PA-C Department of Orthopaedics Orthopaedics [address] [address] Dept: [phone] May 12, 2023 SUBJECTIVE: CHIEF COMPLAINT: Established [...] acute abnormality. Full imaging report available in [facility]. ASSESSMENT: S86.050Q Strain of calf muscle, left, initial encounter [...] Diagnosis:Strain of calf muscle, left, initial encounter [S81.848G] Order(s):CONSULT TO PHYSICAL THERAPY [9000] Order #: [id number]: 1 FUTURE Prescriptions as of 05/12/2023 - [...] trunk: c (more content not included)... Normal [facility] XR TIBIA FIBULA 2V AP/LAT LT on [...] and soft tissues are unremarkable. IMPRESSION: Negative Restaurant Shift Leader: PSCB Transcribe Date/Time: May 15 2023 10:18A Dictated by : JENNI CHINCHILLA MD This examination was interpreted and the report reviewed and electronically signed by: JENNI CHINCHILLA MD on May 15 2023 10:18AM EST [id number] N [facility] XR Tibia and Fibula - left A P and Lateralon 05-12-2023 Radiology Study observation (narrative) [facility] Absolute lymphocyte countOrd ered By: Nicole Rhodes on 03-22-2023 Lymphocytes Auto (Unsp spec) [#/Vol] 1.76 10*3/uL 0.83-4.51 [facility] Basophil percentageOrdered B y: Nicole Rhodes on 03-22-2023 Basophils/100 WBC (Bld) 0.7 % 0-1 [facility] Bilirubin [Mass/Vol] 0.40 mg/dL 0.20-1.00 [facility] Comment on above: For patients on eltr ombopag therapy, use of Dimension [place] TBIL is not recommended. Chloride [Moles/Vol] 109 mmol/L 98-107 [facility] Cholesterol [Mass/Vol] 134 mg/dL <200 [facility] Comment on above: <200 mg/dL Desirable 200-240 mg/dL Borderline >240 mg/dL High Risk Eosinophils/100 WBC (Bld) 3.8 % 0-5 [facility] Glucose [Mass/Vol] 81 mg/dL 74-106 [facility] Neutrophils (Bld) [#/Vol] 3.5 10*3/uL 2.0-7.7 [facility] Neutrophils/100 WBC (Bld) 60.1 % 47-70 [facility] Potassium [Moles/Vol] 3.7 mmol/L 3.5-5.1 [facility] Protein [Mass/Vol] 6.9 g/dL 6.4-8.2 [facility] Sodium [Moles/Vol] 140 mmol/L 136-145 [facility] Triglyceride [Mass/Vol] 58 mg/dL <199 [facility] Comment on above: The drugs N-Acetylcy steine and Metamizole may falsely depress this assay.Serum Triglycerides Reference Interval Normal <150 mg/dL Borderline high 150 - 199 mg/dL High 200 - 499 mg/dL Very High > or = 500 mg/dL WBC (Bld) [#/Vol] 5.9 10*3/uL 4.4-11.0 [facility] Blood erythrocytes count (nu mber/volume)Ordered By: Nicole Rhodes on 03-22-2023 RBC (Bld) [#/Vol] 3.98 10*6/uL 4.2-5.4 [facility] Blood hemoglobin measurement (mass/volume)Ordered By: Nicole Rhodes on 03-22-2023 Hemoglobin (Bld) [Mass/Vol] 11.0 g/dL 12.0-15.0 [facility] Blood lymphocytes/100 leukoc ytesOrdered By: Nicole Rhodes on 03-22-2023 Lymphocytes/100 WBC (Bld) 30.1 % 19-41 [facility] Blood monocytes/100 leukocyt esOrdered By: Nicole Rhodes on 03-22-2023 Monocytes/100 WBC (Bld) 4.8 % 0-10 [facility] Blood platelet mean volumeOr dered By: Nicoleelieser Rhodes on 03-22-2023 Platelet mean volume (Bld) [Entitic vol] 10.3 fL 6.2-12.0 [facility] Determination of erythrocyte mean corpuscular volume (MCV)Ordered By: Nicoleelieser Rhodes on 03-22-2023 MCV (RBC) [Entitic vol] 88.2 fL 81-99 [facility] Hematocrit Auto (Bld) [Volum e fraction]Ordered By: Nicoleelieser Rhodes on 03-22-2023 Hematocrit (Bld) [Volume fraction] 35.1 % 37-47 [facility] Iron measurement (mass/mass) Ordered By: [place] Carmelo on 03-22-2023 Iron (Unsp spec) [Mass/Mass] 33 ug/dL 50-170 [facility] Laboratory - Chemistry and C hemistry - challengeOrdered By: [facility] on 03-22-2023 ALP [Catalytic activity/Vol] 45 U/L 45-117 [facility] ALT [Catalytic activity/Vol] 13 U/L 13-56 [facility] CO2 [Moles/Vol] 28.0 mmol/L 21.0-32.0 [facility] Cobalamin (Vitamin B12) [Mass/Vol] 420 pg/mL 211-911 [facility] Globulin (S) [Mass/Vol] 3.0 g/dL 2.2-4.2 [facility] Urea nitrogen/Creatinine [Mass ratio] 10.5 mg/mg 10-20 [facility] Laboratory - Hematology and Cell countsOrdered By: [place] Carmelo on 03-22-2023 Erythrocyte distribution width (RBC) [Entitic vol] 41.7 fL 35.1-43.9 [facility] Erythrocyte distribution width (RBC) [Ratio] 12.9 % 11.6-14.6 [facility] Immature granulocytes/100 WBC (Bld) 0.500 % 0.0-0.9 [facility] Comment on above: IG% - Immature Granu locytes (promyelocytes, myelocytes and metamyelocytes) > 1% indicates that a LEFT SHIFT is Present. MCH (RBC) [Entitic mass] 27.6 pg 27.0-32.0 [facility] Nucleated RBC/100 WBC (Bld) [Ratio] 0 % 0-5 [facility] MCHC Auto (RBC) [Mass/Vol]Or dered By: Nicole Rhodes on 03-22-2023 MCHC (RBC) [Mass/Vol] 31.3 g/dL 32-36 [facility] No Panel InformationOrdered By: Nicole Rhodes on 03-22-2023 Estimated GFR (MDRD) Amer 111 mL/min >60 [facility] Comment on above: GFR Calc Estimated GFR (MDRD) Non-Af Amer 92 mL/min >60 [facility] Comment on above: Non- GFR Calc Vitamin D 25-Hydroxy 51.8 ng/mL [facility] Comment on above: Vitamin D 25(OH) Sta tus Range Deficiency <20 ng/mL (50nmol/L) Insufficiency 20 - 30 ng/mL (50 - 75 nmol/L) Sufficiency 30 - 100 ng/mL (75 - 250 nmol/L) Toxicity >100 ng/mL (>250 nmol/L) Platelets bldOrdered By: Dory Rhodes on 03-22-2023 Platelets (Bld) [#/Vol] 276 10*3/uL 150-450 [facility] Serum or plasma albumin jazmine urement (mass/volume)Ordered By: Nicole Rhodes on 03-22-2023 Albumin [Mass/Vol] 3.9 g/dL 3.2-5.0 [facility] Serum or plasma albumin/glob ulin mass ratioOrdered By: Nicole Rhodes on 03-22-2023 Albumin/Globulin [Mass ratio] 1.3 {ratio} 0.9-2.4 [facility] Serum or plasma calcium jazmine urement (mass/volume)Ordered By: Nicole Rhodes on 03-22-2023 Calcium [Mass/Vol] 8.8 mg/dL 8.5-10.1 [facility] Serum or plasma cholesterol in HDL measurement (mass/volume)Ordered By: Nicole Rhodes on 03-22-2023 Cholesterol in HDL [Mass/Vol] 52 mg/dL >40 [facility] Comment on above: The drugs N-Acetylcy steine and Metamizole may falsely depress this assay. Reference Range HDL <40 mg/dL Low HDL Cholesterol HDL >or= 60 mg/dL High HDL Cholesterol Serum or plasma cholesterol in VLDL measurement (mass/volume)Ordered By: Nicole Rhodes on 03-22-2023 Cholesterol in VLDL [Mass/Vol] 12 mg/dL 5-40 [facility] Serum or plasma creatinine m easurement (mass/volume)Ordered By: Nicole Rhodes on 03-22-2023 Creatinine [Mass/Vol] 0.76 mg/dL 0.55-1.02 [facility] Comment on above: The validity of the calculated GFR & GFRAA in patients over 70 years has not been determined. Clinical correlation is essential. Serum or plasma ferritin esther surement (mass/volume)Ordered By: Nicole Rhodes on 03-22-2023 Ferritin [Mass/Vol] 5 ng/mL 8-252 [facility] Serum or plasma low density lipoprotein (LDL) cholesterol measurement (mass/volume)Ordered By: Nicole Rhodes on 03-22-2023 Cholesterol in LDL [Mass/Vol] 70 mg/dL 0-130 [facility] Serum or plasma urea nitroge n measurement (mass/volume)Ordered By: [place] Carmelo on 03-22-2023 Urea nitrogen [Mass/Vol] 8 mg/dL 7-18 [facility] Thin prep Papanicolaou smear with manual screeningOrdered By: Nicole Rhodes on 03-22-2023 Thin prep Papanicolaou smear with manual screening 6 U/L 15-37 [facility] Thin prep Papanicolaou smear with manual screening 3 5-15 [facility] Cervical or vagninal specime n microscopic examination by cytology stain (reported asOrdered By: Jenni Coyle on 03-03-2023 Cytology report Cyto stain Doc (Cvx/Vag) Comment . [facility] Comment on above: The Pap smear is [...] DNA Probe+sig amp Ql (Cvx) Negative Negative [facility] Comment on above: This nucleic acid am plification test detects fourteen high-risk HPV types (16,18,31,33,35,39,45,51,52,56,58,59,66,68)without differentiation. Laboratory - CytologyOrdered By: Jenni Coyle on 03-03-2023 Compounding Assistant Cyto stain Nom (Cvx/Vag) [ID] Comment . [facility] Comment on above: Alexa Person, Cyt otechnologist (ASCP) Laboratory - Miscellaneous t estsOrdered By: Jenni Coyle on 03-03-2023 Service comment (Unsp spec) [Interp] Comment . [facility] Comment on above: This liquid based Th inPrep(R) pap test was screened withthe use of an image guided system. Service comment (Unsp spec) [Interp] . . [facility] Liquid-based cerv Pap + CT/G C by GUCCI w reflex to high-risk HPV for ASCUSOrdered By: Jenni Coyle on 03-03-2023 Cytology report Cyto stain.thin prep Doc (Cvx/Vag) Comment . [facility] Comment on above: Criteria not met, HP V Genotype not performed.Performed at: [facility] [id number] [place], [place] [id number] Director: Kamran Banerjee MD, Phone: [phone] at: [place] - [address] [id number] Director: Rachel Smallwood MD, Phone: [phone] at: =G - [facility] [id number] Director: Rachel Smallwood MD, Phone: [phone] No Panel InformationOrdered By: Jenni Coyle on 03-03-2023 Pathology report final diagnosis Narrative Comment . [facility] Comment on above: NEGATIVE FOR INTRAEP ITHELIAL LESION OR MALIGNANCY. CNOVon 03-01-2023 CNOV Office Visit (ORMDNA ) MANDI VALENTE ([id number]) 1990 F Date Time Provider Department 03/01/23 [...] Allergies) Date Reviewed: 03/01/2023 Reviewed by: Cathryn Morrell DO - Fully Assessed Reason for Visit: Pain [78] Follow Up [171] New [[id number]] Primary Visit Diagnosis:Pain of right hip [M25.551] Other Visit D (more content not included)... Normal [facility] XR HIP 3V PELV+ AP/LAT LTon 03-01-2023 [...] pathology. Mild narrowing of both hip joints Restaurant Shift Leader: MALOU Transcribe Date/Time: Mar 01 2023 2:33P Dictated by : MONTANA QUIÑONES DO This examination was interpreted and the report reviewed and electronically signed by: MONTANA QUIÑONES DO on Mar 01 2023 2:33PM EST [id number] N [facility] XR Pelvis and Hip - left AP and Lateral frogon 03-01-2023 IMPRESSION: No acute pathology. Mild narrowing of both hip joints Restaurant Shift Leader: PSCB Transcribe Date/Time: Mar 01 2023 2:33P Dictated by : MONTANA QUIÑONES DO This examination was interpreted and the report reviewed and electronically signed by: MONTANA QUIÑONES DO on Mar 01 2023 2:33PM EST [facility] * * *Final Report* * * [...] hip: No fractures or dislocations are seen. [facility] Provider, [facility] - 03/01/2023 * * *Final Report* * * DATE OF EXAM: Mar 01 2023 9:50AM [facility] 5351 - XR HIP 3V PELV+ AP/LAT [...] pathology. Mild narrowing of both hip joints Restaurant Shift Leader: MALOU Transcribe Date/Time: Mar 01 2023 2:33P Dictated by : MONTANA QUIÑONES DO This examination was interpreted and the report reviewed and electronically signed by: MONTANA QUIÑONES DO on Mar 01 2023 2:33PM [facility] Radiology Study observation (narrative) [facility] XR Pelvis and Hip - left AP and Lateral frogOrdered By: Ccf Provider on 03-01-2023 [facility] Laboratory - Microbiology an d Antimicrobial susceptibilityon 02-18-2023 S. pyogenes Ag IA Ql (Unsp spec) Negative [facility] CNOVon 12-28-2022 CNOV Office Visit (ORMDNA ) MANDI VALENTE ([id number]) 1990 F Date Time Provider Department 12/28/22 [...] Morrell D.O. M.P.H. Referring Provider: PIERRE HICKS [[id number]] Allergies As of Date: 12/28/2022 (No Known Allergies) Date Reviewed: 12/28/2022 Reviewed by: DO Cal Mtz Fully Assessed Reason for Visit: Post Op [174] Pain [78] Primary Visit Diagnosis:S/P orthopedic surgery, follow-up exam [Z09] Other Visit Diagnoses:Trochanteri c bursitis of right hip [M70.61] Iliotibial band syndrome of right side [M76.31] Prescriptions as of 12/28/2022 - oxyCODONE-acetaminoph en (PERCOCET) 5-325 mg tablet Take (more content not included)... Normal [facility] CNOVon 11-21-2022 CNOV Office Visit (ORMDNA ) REBECCAMANDI A ([id number]) 1990 F Date Time Provider Department 11/21/22 [...] Order(s):CONSULT TO PHYSICAL THERAPY [9032] Order #: [id number]: 1 FUTURE Prescriptions as of 11/21/2022 - [...] Davis 11/21/2022 10:02 AM >> MENA DAVIS November 21, 2022 10:02 AM Not taking [...] Encounter Status:Closed by PIERRE HICKS on 11/21/22 [facility] 11-09-2022 ABHIJITN Telephone (MEI) MANDI VALENTE ([id number]) 1990 F Date Time Provider Department 11/09/22 [...] have questions, patient can be reached at [phone] Rhonda Sow, RN 11/09/2022 2:57 PM Signed Spoke with [...] Allergies) Date Reviewed: 11/08/2022 Reviewed by: Jhonny Sarabia RN - Fully Assessed Reason for Visit: Appointment [...] Status:Closed by AVERY ARMANDO on 12/23/22 Normal [facility] ANES POSTPROC EVALon 023 ANES POSTPROC EVAL HNO ID: [id number] Author: August Santizo MD Service: Anesthesiology Author Type: Anesthesiologist Type: Anesthesia Postprocedure Evaluation Filed: 11/08/2022 1:20 PM Note Text: POST ANESTHESIA EVALUATION NOTE : 1990 Procedure Summary Date: 11/08/22 [facility] / [facility] Anesthesia Start: 1111 Anesthesia Stop: 1233 [...] November 08, 2022 TIME: 1:20 PM CSN: [id number] [facility] ANES PRE-OPon 11-08-2022 ANES PRE-OP HNO ID: [id number] Author: August Santizo MD Service: Anesthesiology Author Type: Anesthesiologist Type: Anesthesia Preprocedure Evaluation Filed: 11/08/2022 10:21 AM Note Text: ANESTHESIOLOGY DAY OF SURGERY NOTE : 1990 Procedure Information Date/Time: 11/08/22 1108 Procedure: EXCISION TROCHANTERIC BURSA OR CALCIFICATION (Right: Hip) [facility] Surgeons: Cathryn Morrell DO Estimated body [...] and consent discussed: yes. Patient / Responsible Republican agrees to proceed: yes Patient / Surrogate [...] November 08, 2022 TIME: 10:21 AM CSN: [id number] [facility] OPERATIVE NOon 11-08-2022 OPERATIVE NO HNO ID: [id number] Author: Cathryn Morrell DO Service: Orthopaedic Surgery Author Type: Physician Type: Operative Report Filed: 11/08/2022 1:21 PM Note Text: OPERATIVE/PROCEDURE REPORT LOG ID: [id number] SURGERY/PROCEDURE DATE: 11/08/2022 INCISION/PROCEDURE START TIME: 11:35 AM INCISION CLOSE/PROCEDURE END TIME: 12:18 PM SURGEON(S)/PROCEDURAL IST(S) AND CROWNING INSPECTOR(S): Surgeon(s) and Role: * Cathryn Morrell DO - Primary Nurse Practitioner: Lisseth Wright APRN.CRM COORDINATOR Physician Financial Institution Vice President: Kelly Calabrese PA-C SURGERY/PROCEDURE(S): Right hip arthroscopy, [...] DATE: November 08, 2022 TIME: 12:47 PM [facility] XR FLUOROSCOPYon 11-08-2022 XR FLUOROSCOPY * * *Final Report* * * DATE OF EXAM: Nov 08 2022 12:15PM [facility] - XR FLUOROSCOPY / PROCEDURE REASON: [...] Please refer to the performing LIP's report. Restaurant Shift Leader: MALOU Transcribe Date/Time: Nov 08 2022 1:56P Dictated by : JENNI CHINCHILLA MD This examination was interpreted and the report reviewed and electronically signed by: JENNI CHINCHILLA MD on Nov 08 2022 1:57PM EST [id number] N [facility] 11-02-2022 [facility] Office Visit (ORMDNA ) MANDI VALENTE ([id number]) 1990 F Date Time Provider Department 11/02/22 [...] Patient's questions (more content not included)... Normal [facility] HISTORY PHYSICALon HISTORY PHYSICAL HNO ID: [id number] Author: Stefany De La Torre PA-C Service: ? Author Type: Physician Financial Institution Vice President Type: HANDP Filed: 10/31/2022 2:00 PM Note [...] fevers. Neuro: No history of TIA's, stroke, HOPS FARMWORKER tumor, impaired sensorium, hemiplegia, paraplegia or quadraplegia. No neurological symptoms or problems. Respiratory: No history of current cough or dyspnea, or pneumonia in the past 6 weeks. No history of respiratory/pulmonary symptoms or problems. Cardiovascular: No history of HTN requiring medication, no history of angina, CHF, DE, cardiac surgery or stents. Denies rest pain, gangrene or revascularization/amp utation for PVD. No history of cardiovascular symptoms or problems. GI: No history of GI symptoms or problems. No history of esophageal varices, recent ascites, or ETOH greater than 2 drinks per day. : No history of dysuria, frequency or incontinence,, stones or chronic kidney disease CLUB FORMER: Negative for abnormal vaginal bleeding, abnormal vaginal [...] tests Assessment (more content not included)... Normal [facility] Basophil percentageOrdered B y: Dr. Smith on 09-07-2022 Basophil percentage 0.2 AI 0.0-0.9 [facility] Basophil percentage 2.6 AI 0.0-0.9 [facility] Erythrocyte sedimentation ra teOrdered By: Dr. Smith on 09-07-2022 ESR (Bld) [Velocity] 4 mm/h 0-30 [facility] No Panel InformationOrdered By: Dr. Smith on 09-07-2022 Anti-Nuclear Antibody Screen Positive Negative [facility] Centromere B Antibody <0.2 AI 0.0-0.9 [facility] MUSIC SUPERVISOR Antibody <0.2 AI 0.0-0.9 [facility] Serum DNA double strand anti body assay (units/volume)Ordered By: Dr. Smith on 09-07-2022 DNA double strand Ab Qn (S) 1 [IU]/mL 0-9 [facility] Comment on above: Negative <5 Equivoca l 5 - 9 Positive >9 Serum Silvia-1 antibody assay (u nits/volume)Ordered By: Dr. Smith on 09-07-2022 Silvia-1 extractable nuclear Ab Qn (S) <0.2 AI 0.0-0.9 [facility] Serum Scl-70 extractable nuc lear antibody assay (units/volume)Ordered By: Dr. Smith on 09-07-2022 SCL-70 extractable nuclear Ab Qn (S) <0.2 AI 0.0-0.9 [facility] Serum Carlson extractable nucl ear antibody detectionOrdered By: Dr. Smith on 09-07-2022 Carlson extractable nuclear Ab Ql (S) <0.2 AI 0.0-0.9 [facility] Serum cyclic citrullinated p eptide IgG antibody assay (units/volume)Ordered By: Dr. Smith on 09-07-2022 Cyclic citrullinated peptide IgG Qn 1 units 0-19 [facility] Comment on above: Negative <20 Weak po sitive 20 - 39 Moderate positive 40 - 59 Strong positive >59Performed at: [facility] [id number] Director: Sukhdev Cullen PhD, Phone: [phone] Serum or plasma C reactive p rotein measurement (mass/volume)Ordered By: Dr. Smith on 09-07-2022 CRP [Mass/Vol] mg/L 0.0-3.0 [facility] Comment on above: C-Reactive Protein ( CRP) provides useful information for thediagnosis, therapy and monitoring of inflammatory processesand associated diseases. For the evaluation of Relative Riskfor Cardiovascular Disease, a High Sensitivity CRP (HSCRP)should be ordered. Serum rheumatoid factor dete ctionOrdered By: Dr. Smith on 09-07-2022 Rheumatoid factor Ql (S) < 10.0 IU/mL <15 [facility] CNOVon 08-18-2022 CNOV Office Visit (ORTHWS ) MANDI VALENTE ([id number]) 1990 F Date Time Provider Department 08/18/22 10:30 AM CATHRYN MORRELL During your visit today, we recorded the following information about you: Cathryn Morrell DO 08/18/2022 10:56 AM Signed Follow Up Visit [...] hip [M70.61] Order(s):MRI HIP WO IVCON RT [[id number]] Order #: [id number] FUTURE Prescriptions as of 08/18/2022 - meloxicam (MOBIC) 15 mg tablet Take 15 mg by mouth once daily. - oxyCODONE-acetaminoph en (PERCOCET) 5-325 mg tablet Take 1 tablet b (more content not included)... Normal [facility] COVID-19 virus antigen assay Ordered By: Dr. Ott on 07-13-2022 SARS-CoV-2 (COVID-19) Ag IA.rapid Ql (Resp) [facility] Laboratory - Microbiology an d Antimicrobial susceptibilityon 07-13-2022 SARS-CoV-2 (COVID-19) RNA GUCCI+probe Ql (Unsp spec) Not detected [facility] XR Pelvis and Hip - right AP and Lateral frogon 07-07-2022 IMPRESSION: Mild narrowing both hip joints Restaurant Shift Leader: PSCB Transcribe Date/Time: Jul 07 2022 8:05A Dictated by : MONTANA QUIÑONES DO This examination was interpreted and the report reviewed and electronically signed by: MONTANA QUIÑONES DO on Jul 07 2022 8:06AM [facility] * * *Final Report* * * [...] hip: No fractures or dislocations are seen. [facility] Provider, [facility] - 07/07/2022 * * *Final Report* * [...] IMPRESSION IMPRESSION: Mild narrowing both hip joints Restaurant Shift Leader: PSCAnnmarie Transcribe Date/Time: Jul 07 2022 8:05A Dictated by : MONTANA QUIÑONES DO This examination was interpreted and the report reviewed and electronically signed by: MONTANA QUIÑONES DO on Jul 07 2022 8:06AM EST [facility] XR Pelvis and Hip - right AP and Lateral frogOrdered By: Ccf Provider on 07-07-2022 [facility] CNOVon 07-06-2022 CNOV Office Visit (IVONENA ) MANDI VALENTE ([id number]) 1990 F Date Time Provider Department 07/06/22 1:00 PM CATHRYN MORRELL During your visit today, we recorded the following information about you: Cathryn Morrell DO 07/06/2022 2:47 PM Signed Large Joint Arthro/Inj: R greater trochanteric bursa Informed Consent Consent Obtained: Verbal [place] Protocol A moment to CARE was completed. [...] patient is (more content not included)... Normal [facility] XR HIP 3V PELV+ AP/LAT RTon 07-06-2022 [...] seen. IMPRESSION: Mild narrowing both hip joints Restaurant Shift Leader: PSCAnnmarie Transcribe Date/Time: Jul 07 2022 8:05A Dictated by : MONTANA QUIÑONES DO This examination was interpreted and the report reviewed and electronically signed by: MONTANA QUIÑONES DO on Jul 07 2022 8:06AM EST [id number] N [facility] XR Pelvis and Hip - right AP and Lateral frogon 07-06-2022 Radiology Study observation (narrative) [facility] US DVT LOWER RTon 02-28-2022 [facility] XR HIP GENERAL 3V PELV/AP/LA T RIGHTon 12-08-2021 [facility] HIV 1 and HIV-2 antibody ass ay with HIV-1 p24 antigen detectionon 10-04-2021 HIV 1+2 Ab+HIV1 p24 Ag IA Ql Non-Reactive Nonreactive [facility] Work Phone: No Panel Informationon 10-04 Hepatitis B Surface Antigen Non-Reactive Nonreactive [facility] Work Phone: Hepatitis C Antibody Non-Reactive Nonreactive [facility] Work Phone: Comment on above: Non Reactive: < 0.8 Equivocal: >/= 0.8 to < 1.0 Reactive: >/= 1.0The CDC recommends that a reactive/equivocal HCV antibody result be followed up by the HCV Nucleic Acid Amplificationtest (051075) Miscellaneous Test See comment [facility] Work Phone: Comment on above: TEST RESULT LIMITSCt , Ng, Trich vag by GUCCI Chlamydia by GUCCI Negative Negative Gonococcus by GUCCI Negative Negative Trich vag by GUCCI Negative Negative ____ TESTING PERFORMED AT [facility]. ORIGINAL REPORT ON FILE IN LAB CONTAINS ADDITIONAL TEST SITE INFORMATION. Serum Treponema species anti body detectionon 10-04-2021 Treponema sp Ab Ql (S) Non-Reactive [facility] Work Phone: Large Joint Arthro/Inj: R gr eater trochanteric bursa [facility] Vital Signs Date Time Vital Sign Value Performing Clinician Facility 02-13-2025 16:08-0400 Body height 157.[address] Cholo Smith DO Work Phone: [facility] 02-13-2025 16:08-0400 Body mass index (BMI) [Ratio] 39.9 kg/m2 Dr. Cholo Smith DO Work Phone: [facility] 02-13-2025 16:08-0400 Body weight 99.[address] Cholo Smith DO Work Phone: [facility] 02-13-2025 16:08-0400 Diastolic blood pressure 82 mm[Hg] Dr. Cholo Smith DO Work Phone: [facility] 02-13-2025 16:08-0400 Systolic blood pressure 120 mm[Hg] Dr. Cholo Smith DO Work Phone: [facility] 02-07-2025 14:35-0400 Diastolic blood pressure 67 mm[Hg] Dr. Cholo Smith DO Work Phone: [facility] 02-07-2025 14:35-0400 Heart rate 90 /min Dr. Cholo Smith DO Work Phone: [facility] 02-07-2025 14:35-0400 Systolic blood pressure 121 mm[Hg] Dr. Cholo Smith DO Work Phone: [facility] 02-07-2025 12:21-0400 Body height 157.[address] Cholo Smith DO Work Phone: [facility] 02-07-2025 12:21-0400 Body mass index (BMI) [Ratio] 39.6 kg/m2 Dr. Cholo Smith DO Work Phone: [facility] 02-07-2025 12:21-0400 Body weight 98.[address] Cholo Smith DO Work Phone: [facility] 02-07-2025 12:18-0400 Body temperature 96.7 [degF] Dr. Cholo Smith DO Work Phone: [facility] 02-07-2025 12:18-0400 Respiratory rate 18 /min Dr. Cholo Smith DO Work Phone: [facility] 01-29-2025 09:58-0400 Body height 157.[address] Cholo Smith DO Work Phone: [facility] 01-29-2025 09:57-0400 Body mass index (BMI) [Ratio] 39.7 kg/m2 Dr. Cholo Smith DO Work Phone: [facility] 01-29-2025 09:57-0400 Body weight 98.[address] Cholo Smith DO Work Phone: [facility] 01-29-2025 09:57-0400 Diastolic blood pressure 78 mm[Hg] Dr. Cholo Smith DO Work Phone: [facility] 01-29-2025 09:57-0400 Systolic blood pressure 129 mm[Hg] Dr. Cholo Smith DO Work Phone: [facility] 01-13-2025 10:45-0400 Body height 157.[address] Cholo Smith DO Work Phone: [facility] 01-13-2025 10:45-0400 Body mass index (BMI) [Ratio] 39.4 kg/m2 Dr. Cholo Smith DO Work Phone: [facility] 01-13-2025 10:45-0400 Body weight 97.[address] Cholo Smith DO Work Phone: [facility] 01-13-2025 10:45-0400 Diastolic blood pressure 87 mm[Hg] Dr. Cholo Smith DO Work Phone: [facility] 01-13-2025 10:45-0400 Systolic blood pressure 126 mm[Hg] Dr. Cholo Smith DO Work Phone: [facility] 01-03-2025 15:03-0400 Body height 157.[address] Cholo Smith DO Work Phone: [facility] 01-03-2025 15:03-0400 Body mass index (BMI) [Ratio] 38.6 kg/m2 Dr. Cholo Smith DO Work Phone: [facility] 01-03-2025 15:03-0400 Body weight 95.[address] Cholo Smith DO Work Phone: [facility] 01-03-2025 15:03-0400 Diastolic blood pressure 82 mm[Hg] Dr. Cholo Smith DO Work Phone: [facility] 01-03-2025 15:03-0400 Systolic blood pressure 138 mm[Hg] Dr. Cholo Smith DO Work Phone: [facility] 12-04-2024 14:55-0400 Body height 157.[address] Cholo Smith DO Work Phone: [facility] 12-04-2024 14:55-0400 Body mass index (BMI) [Ratio] 38.5 kg/m2 Dr. Cholo Smith DO Work Phone: [facility] 12-04-2024 14:55-0400 Body weight 95.[address] Cholo Smith DO Work Phone: [facility] 12-04-2024 14:55-0400 Diastolic blood pressure 77 mm[Hg] Dr. Cholo Smith DO Work Phone: [facility] 12-04-2024 14:55-0400 Systolic blood pressure 130 mm[Hg] Dr. Cholo Smith DO Work Phone: [facility] 11-07-2024 09:36-0400 Body mass index (BMI) [Ratio] 37.5 kg/m2 Dr. Cholo Smith DO Work Phone: [facility] 11-07-2024 09:36-0400 Body weight 93.[address] Cholo Smith DO Work Phone: [facility] 11-07-2024 09:36-0400 Diastolic blood pressure 77 mm[Hg] Dr. Cholo Smith DO Work Phone: [facility] 11-07-2024 09:36-0400 Systolic blood pressure 117 mm[Hg] Dr. Cholo Smith DO Work Phone: [facility] 10-15-2024 12:47-0400 Body height 157.[address] Cholo Smith DO Work Phone: [facility] 10-15-2024 12:47-0400 Body mass index (BMI) [Ratio] 36.6 kg/m2 Dr. Cholo Smith DO Work Phone: [facility] 10-15-2024 12:47-0400 Body weight 90.[address] Cholo Smith DO Work Phone: [facility] 10-15-2024 12:47-0400 Diastolic blood pressure 86 mm[Hg] Dr. Cholo Smith DO Work Phone: [facility] 10-15-2024 12:47-0400 Systolic blood pressure 136 mm[Hg] Dr. Cholo Smith DO Work Phone: [facility] 10-12-2024 00:51-0400 Body temperature 98.5 [degF] Dr. Cholo Smith DO Work Phone: [facility] 10-12-2024 00:51-0400 Diastolic blood pressure 72 mm[Hg] Dr. Cholo Smith DO Work Phone: [facility] 10-12-2024 00:51-0400 Heart rate 85 /min Dr. Cholo Smith DO Work Phone: [facility] 10-12-2024 00:51-0400 Respiratory rate 18 /min Dr. Cholo Smith DO Work Phone: [facility] 10-12-2024 00:51-0400 SaO2% (BldA) [Mass fraction] 99 % Dr. Cholo Smith DO Work Phone: [facility] 10-12-2024 00:51-0400 Systolic blood pressure 132 mm[Hg] Dr. Cholo Smith DO Work Phone: [facility] 10-11-2024 21:50-0400 Body mass index (BMI) [Ratio] 37.6 kg/m2 Dr. Cholo Smith DO Work Phone: [facility] 10-11-2024 21:50-0400 Body weight 93.[address] Cholo Smith DO Work Phone: [facility] 10-07-2024 13:55-0400 Body mass index (BMI) [Ratio] 36.6 kg/m2 Dr. hColo Smith DO Work Phone: [facility] 10-07-2024 13:55-0400 Body weight 90.[address] Cholo Smith DO Work Phone: [facility] 10-07-2024 13:55-0400 Diastolic blood pressure 85 mm[Hg] Dr. Cholo Smith DO Work Phone: [facility] 10-07-2024 13:55-0400 Systolic blood pressure 138 mm[Hg] Dr. Cholo Smith DO Work Phone: [facility] 09-10-2024 14:53-0500 Body height 157.[address] Cholo Smith DO Work Phone: [facility] 09-10-2024 14:53-0500 Body mass index (BMI) [Ratio] 35.9 kg/m2 Dr. Cholo Smith DO Work Phone: [facility] 09-10-2024 14:53-0500 Body weight 88.[address] Cholo Smith DO Work Phone: [facility] 09-10-2024 14:53-0500 Diastolic blood pressure 85 mm[Hg] Dr. Cholo Smith DO Work Phone: [facility] 09-10-2024 14:53-0500 Systolic blood pressure 136 mm[Hg] Dr. Cholo Smith DO Work Phone: [facility] 08-26-2024 12:56-0500 Body mass index (BMI) [Ratio] 35.5 kg/m2 Dr. Cholo Smith DO Work Phone: [facility] 08-26-2024 12:56-0500 Body weight 88.[address] Cholo Smith DO Work Phone: [facility] 08-26-2024 12:56-0500 Diastolic blood pressure 89 mm[Hg] Dr. Cholo Smith DO Work Phone: [facility] 08-26-2024 12:56-0500 Systolic blood pressure 137 mm[Hg] Dr. Cholo Smith DO Work Phone: [facility] 08-13-2024 15:09-0500 Body mass index (BMI) [Ratio] 35.4 kg/m2 Dr. Cholo Smith DO Work Phone: [facility] 08-13-2024 15:09-0500 Body weight 87.[address] Cholo Smith DO Work Phone: [facility] 08-13-2024 15:09-0500 Diastolic blood pressure 84 mm[Hg] Dr. Cholo Smith DO Work Phone: [facility] 08-13-2024 15:09-0500 Systolic blood pressure 139 mm[Hg] Dr. Cholo Smith DO Work Phone: [facility] 06-26-2024 12:56-0500 Body mass index (BMI) [Ratio] 34.9 kg/m2 Dr. Cholo Smith DO Work Phone: [facility] 06-26-2024 12:56-0500 Body weight 86.[address] Cholo Smith DO Work Phone: [facility] 06-26-2024 12:56-0500 Diastolic blood pressure 90 mm[Hg] Dr. Cholo Smith DO Work Phone: [facility] 06-26-2024 12:56-0500 Systolic blood pressure 147 mm[Hg] Dr. Cholo Smith DO Work Phone: [facility] 06-24-2024 09:28-0500 Body weight 87.[address] Cholo Smith DO Work Phone: [facility] 06-24-2024 09:28-0500 Diastolic blood pressure 89 mm[Hg] Dr. Cholo Smith DO Work Phone: [facility] 06-24-2024 09:28-0500 Heart rate 67 /min Dr. Cholo Smith DO Work Phone: [facility] 06-24-2024 09:28-0500 Respiratory rate 16 /min Dr. Cholo Smith DO Work Phone: [facility] 06-24-2024 09:28-0500 SaO2% (BldA) [Mass fraction] 98 % Dr. Cholo Smith DO Work Phone: [facility] 06-24-2024 09:28-0500 Systolic blood pressure 157 mm[Hg] Dr. Cholo Smith DO Work Phone: [facility] 06-11-2024 13:55-0500 Body temperature 97.5 [degF] Dr. Cholo Smith DO Work Phone: [facility] 06-11-2024 13:55-0500 Diastolic blood pressure 94 mm[Hg] Dr. Cholo Smith DO Work Phone: [facility] 06-11-2024 13:55-0500 Heart rate 78 /min Dr. Cholo Smith DO Work Phone: [facility] 06-11-2024 13:55-0500 Respiratory rate 16 /min Dr. Cholo Smith DO Work Phone: [facility] 06-11-2024 13:55-0500 SaO2% (BldA) [Mass fraction] 97 % Dr. Cholo Smith DO Work Phone: [facility] 06-11-2024 13:55-0500 Systolic blood pressure 138 mm[Hg] Dr. Cholo Smith DO Work Phone: [facility] 06-11-2024 11:18-0500 Body mass index (BMI) [Ratio] 34.7 kg/m2 Dr. Cholo Smith DO Work Phone: [facility] 06-11-2024 11:18-0500 Body weight [address] Cholo Smith DO Work Phone: [facility] 10-20-2023 14:52-0400 Body height 157.[address] Cholo Smith Work Phone: [facility] 10-20-2023 14:52-0400 Diastolic blood pressure 80 mm[Hg] Dr. Cholo Smith Work Phone: [facility] 10-20-2023 14:52-0400 Systolic blood pressure 139 mm[Hg] Dr. Cholo Smith Work Phone: [facility] 10-20-2023 14:47-0400 Body mass index (BMI) [Ratio] 34.7 kg/m2 Dr. Cholo Smith Work Phone: [facility] 10-20-2023 14:47-0400 Body weight 86.[address] Cholo Smith Work Phone: [facility] 09-19-2023 10:01-0400 Body mass index (BMI) [Ratio] 33.3 kg/m2 Dr. Cholo Smith Work Phone: [facility] 09-19-2023 10:01-0400 Body weight 82.[address] Cholo Smith Work Phone: [facility] 09-19-2023 10:01-0400 Diastolic blood pressure 80 mm[Hg] Dr. Cholo Smith Work Phone: [facility] 09-19-2023 10:01-0400 Systolic blood pressure 141 mm[Hg] Dr. Cholo Smith Work Phone: [facility] 08-21-2023 14:43-0500 Body height 157.[address] Cholo Smith Work Phone: [facility] 08-21-2023 14:43-0500 Body mass index (BMI) [Ratio] 31.8 kg/m2 Dr. Cholo Smith Work Phone: [facility] 08-21-2023 14:43-0500 Body weight 78.[address] Cholo Smith Work Phone: [facility] 08-21-2023 14:43-0500 Diastolic blood pressure 84 mm[Hg] Dr. Cholo Smith Work Phone: [facility] 08-21-2023 14:43-0500 Systolic blood pressure 126 mm[Hg] Dr. Cholo Smith Work Phone: [facility] 05-30-2023 09:47-0500 Diastolic blood pressure 86 mm[Hg] Dr. Cholo Smith Work Phone: [facility] 05-30-2023 09:47-0500 Systolic blood pressure 138 mm[Hg] Dr. Cholo Smith Work Phone: [facility] 05-30-2023 09:34-0500 Body height 157.[address] Cholo Smith Work Phone: [facility] 05-30-2023 09:34-0500 Body mass index (BMI) [Ratio] 29.2 kg/m2 Dr. Cholo Smith Work Phone: [facility] 05-30-2023 09:34-0500 Body temperature 98.2 [degF] Dr. Cholo Smith Work Phone: [facility] 05-30-2023 09:34-0500 Body weight 72.[address] Cholo Smith Work Phone: [facility] 05-30-2023 09:34-0500 Heart rate 112 /min Dr. Cholo Smith Work Phone: [facility] 05-30-2023 09:34-0500 Respiratory rate 16 /min Dr. Cholo Smith Work Phone: [facility] 05-30-2023 09:34-0500 SaO2% (BldA) [Mass fraction] 98 % Dr. Cholo Smith Work Phone: [facility] 02-18-2023 09:46-0400 Body height 157.[address] Cholo Smith Work Phone: [facility] 02-18-2023 09:46-0400 Body mass index (BMI) [Ratio] 27.4 kg/m2 Dr. Cholo Smith Work Phone: [facility] 02-18-2023 09:46-0400 Body temperature 98.6 [degF] Dr. Cholo Smith Work Phone: [facility] 02-18-2023 09:46-0400 Body weight 68.[address] Cholo Smith Work Phone: [facility] 02-18-2023 09:46-0400 Diastolic blood pressure 85 mm[Hg] Dr. Cholo Smith Work Phone: [facility] 02-18-2023 09:46-0400 Heart rate 70 /min Dr. Cholo Smith Work Phone: [facility] 02-18-2023 09:46-0400 Respiratory rate 16 /min Dr. Cholo Smith Work Phone: [facility] 02-18-2023 09:46-0400 SaO2% (BldA) [Mass fraction] 97 % Dr. Cholo Smith Work Phone: [facility] 02-18-2023 09:46-0400 Systolic blood pressure 120 mm[Hg] Dr. Cholo Smith Work Phone: [facility] 12-08-2022 11:00-0400 Body temperature 98.6 [degF] Dr. Cholo Smith Work Phone: [facility] 12-08-2022 11:00-0400 Diastolic blood pressure 91 mm[Hg] Dr. Cholo Smith Work Phone: [facility] 12-08-2022 11:00-0400 Heart rate 69 /min Dr. Cholo Smith Work Phone: [facility] 12-08-2022 11:00-0400 Respiratory rate 16 /min Dr. Cholo Smith Work Phone: [facility] 12-08-2022 11:00-0400 SaO2% (BldA) [Mass fraction] 100 % Dr. Cholo Smith Work Phone: [facility] 12-08-2022 11:00-0400 Systolic blood pressure 132 mm[Hg] Dr. Cholo Smith Work Phone: [facility] 12-08-2022 08:41-0400 Body height 157.[address] Cholo Smith Work Phone: [facility] 12-08-2022 08:41-0400 Body mass index (BMI) [Ratio] 29.5 kg/m2 Dr. Cholo Smith Work Phone: [facility] 12-08-2022 08:41-0400 Body weight 73.[address] Cholo Smith Work Phone: [facility] 10-28-2022 11:11-0400 Body height 157.5 cm Pacc 1 Work Phone: [facility] 10-28-2022 11:11-0400 Body temperature 97.81 [degF] Pacc 1 Work Phone: [facility] 10-28-2022 11:11-0400 Body weight 78.47 kg Pacc 1 Work Phone: [facility] 10-28-2022 11:11-0400 Diastolic blood pressure 84 mm[Hg] Pacc 1 Work Phone: [facility] 10-28-2022 11:11-0400 Heart rate 79 /min Pacc 1 Work Phone: [facility] 10-28-2022 11:11-0400 Respiratory rate 16 /min Pacc 1 Work Phone: [facility] 10-28-2022 11:11-0400 SaO2% (BldA) [Mass fraction] 99 % Pacc 1 Work Phone: [facility] 10-28-2022 11:11-0400 Systolic blood pressure 138 mm[Hg] Pacc 1 Work Phone: [facility] 10-08-2022 12:52-0400 Body temperature 97.3 [degF] Dr. Cholo Smith Work Phone: [facility] 10-08-2022 12:52-0400 Diastolic blood pressure 68 mm[Hg] Dr. Cholo Smith Work Phone: [facility] 10-08-2022 12:52-0400 Heart rate 97 /min Dr. Cholo Smith Work Phone: [facility] 10-08-2022 12:52-0400 Respiratory rate 14 /min Dr. Cholo Smith Work Phone: [facility] 10-08-2022 12:52-0400 SaO2% (BldA) [Mass fraction] 98 % Dr. Cholo Smith Work Phone: [facility] 10-08-2022 12:52-0400 Systolic blood pressure 110 mm[Hg] Dr. Cholo Smith Work Phone: [facility] 09-01-2021 11:13-0500 Body height 157.[address] Cholo Smith Work Phone: [facility] Encounters Encounter Date Encounter Type Care Provider Facility Start: 02-13-2025 End: 02-13-2025 ambulatory Reina Rashid Facility:[facility] [place] Start: 02-13-2025 End: 02-13-[address] Reina Rashid DO -[facility] Work Phone: Start: 02-07-2025 ambulatory Linda Hammond Facilit y:[facility] Start: 02-07-2025 Non-patient / Non-visit Linda Hammond CNM -[facility] Start: 02-07-2025 End: 02-07-[address] Cholo Smith DO Work Phone: [facility] Start: 02-07-2025 End: 02-07-2025 Patient encounter procedure Linda Hammond [facility] Work Phone: Start: 02-05-2025 Patient encounter procedure Danya Simpson [facility]USER-C -[facility] Start: 02-05-2025 ambulatory Cholo Smith Facility: [facility] Start: 01-30-2025 End: 01-30-2025 ambulatory REINA GARCIA [facility] Start: 01-29-2025 End: 01-29-[address] Reina Rashid DO -[facility] Work Phone: Start: 01-29-2025 End: 01-29-[address] Cholo Smith DO Work Phone: -[facility] Start: 01-14-2025 End: 01-14-[address] Cholo Smith DO Work Phone: -Laboratory Start: 01-14-2025 End: 01-14-2025 Patient encounter procedure Lawson Parry CNM -Laboratory Work Phone: Start: 01-13-2025 End: 01-13-2025 Patient encounter procedure Lawson Parry CNM -[facility] Work Phone: Start: 01-13-2025 End: 01-14-[address] Cholo Smith DO Work Phone: -[facility] Start: 01-03-2025 End: 01-03-[address] Reina Rashid DO -[facility] Work Phone: Start: 01-03-2025 End: 01-03-[address] Cholo Smith DO Work Phone: -[facility] Start: 12-30-2024 End: 12-30-2024 ambulatory REINA GARCIA [facility] Start: 12-26-2024 End: 12-26-[address] Cholo Smith DO Work Phone: -[facility] Start: 12-26-2024 End: 12-26-[address] Reina Rashid DO -[facility] Start: 12-26-2024 End: 12-26-2024 ambulatory Reina Rashid Facility:[facility] Start: 12-04-2024 End: 12-04-[address] Reina Rashid DO -[facility] Work Phone: Start: 12-04-2024 End: 12-04-[address] Cholo Smith DO Work Phone: [facility] Work Phone: Start: 12-03-2024 End: 12-03-2024 ambulatory PURA KENDALL [facility] Start: 11-18-2024 End: 11-18-2024 ambulatory REINA GARCIA [facility] Start: 11-07-2024 End: 11-07-[address] Piedad Moreno MD -[facility] Work Phone: Start: 11-07-2024 End: 11-07-2024 ambulatory [facility] Facility:[facility] [place] Start: 10-31-2024 End: 10-31-2024 ambulatory REINA GARCIA [facility] Start: 10-15-2024 End: 10-15-[address] Cholo Smith DO Work Phone: [facility] Work Phone: Start: 10-15-2024 End: 10-15-[address] Piedad Moreno MD -Laboratory, Specimen Work Phone: Start: 10-15-2024 End: 10-15-[address] Piedad Moreno MD -[facility] Work Phone: Start: 10-15-2024 End: 10-15-2024 ambulatory [facility] Facility:[facility] [place] Start: 10-15-2024 End: 10-15-2024 ambulatory [facility] Facility:[facility] Start: 10-11-2024 End: 10-12-2024 Emergency department patient visit Dr. Mary Jane Wade DO -Emergency Department Work Phone: Start: 10-07-2024 End: 10-07-2024 Patient encounter procedure Lawson Parry CNM -[facility] Work Phone: Start: 10-07-2024 End: 10-07-2024 ambulatory Cholo Smith Facility:[facility] Start: 09-10-2024 End: 09-10-[address] Reina Rashid DO -[facility] Work Phone: Start: 09-10-2024 End: 09-10-[address] Cholo Smith DO Work Phone: [facility] Work Phone: Start: 09-10-2024 End: 09-10-2024 ambulatory Reina Rashid Facility:[facility] Start: 08-26-2024 End: 08-26-2024 Patient encounter procedure Lawson Parry CNM -[facility] Work Phone: Start: 08-26-2024 End: 08-26-2024 ambulatory Cholo Smith Facility:[facility] Start: 08-19-2024 Encounter for other preprocedural examination Elijah Shafer [facility] Start: 08-13-2024 End: 08-13-[address] Reina Rashid DO -Laboratory, Specimen Work Phone: Start: 08-13-2024 End: 08-13-[address] Reina Rashid DO -[facility] Work Phone: Start: 08-13-2024 End: 08-13-2024 ambulatory Reina Rashid Facility:[facility] Start: 08-13-2024 End: 08-13-2024 ambulatory Reina Rashid Facility:[facility] Start: 08-05-2024 ambulatory Elijah Windsor Facility :[facility] Start: 07-08-2024 End: 07-08-2024 Patient encounter procedure Elijah Shafer DO -[facility] Work Phone: Start: 07-08-2024 End: 07-08-2024 ambulatory Elijah Shafer Facility:[facility] Start: 06-26-2024 End: 06-26-2024 Patient encounter procedure Ivett HOFF -Laboratory, Specimen Work Phone: Start: 06-26-2024 End: 06-26-2024 Patient encounter procedure Ivett HOFF -[facility] Work Phone: Start: 06-26-2024 End: 06-26-2024 ambulatory [facility] Facility:[facility] Start: 06-26-2024 End: 06-26-2024 ambulatory Ivett Marquez Facility:[facility] Start: 06-24-2024 End: 06-24-2024 Patient encounter procedure Reina HOFF -[facility] Work Phone: Start: 06-24-2024 End: 06-24-2024 ambulatory [facility] Facility:[facility] Start: 06-11-2024 ambulatory [facility] Facility: [facility] Start: 06-11-2024 Non-patient / Non-visit Elijah Shafer DO -[facility] Start: 06-11-2024 End: 06-11-2024 Admission to same day surgery center Elijah Shafer DO -Endoscopy Work Phone: Start: 06-11-2024 End: 06-11-2024 ambulatory [facility] Facility:[facility] Start: 05-27-[address] Keiry Rashid DO -Physical Therapy Work Phone: Start: 05-27-2024 End: 05-27-2024 ambulatory Reina Rashid Facility:[facility] Start: 05-10-2024 End: 05-10-2024 ambulatory [facility] Facility:[facility] Start: 05-10-2024 End: 05-10-2024 ambulatory Lisseth Jackson Facility:[facility] Start: 04-23-2024 End: 04-23-2024 ambulatory [facility] Facility:[facility] Start: 03-21-2024 End: 03-21-2024 ambulatory [facility] Facility:[facility] Start: 03-19-2024 ambulatory Lawson Parry Facility :[facility] Start: 03-19-2024 ambulatory Danya Simpson Facility :[facility] Start: 03-19-2024 End: 03-20-2024 Evaluation and management of inpatient Reina Nick Heather Facility:[facility] Start: 03-12-2024 End: 03-12-2024 ambulatory Cholo Smith Facility:[facility] Start: 03-12-2024 End: 03-12-2024 ambulatory Reina Rashid Facility:[facility] Start: 03-06-2024 End: 03-06-2024 ambulatory Reina Rashid Facility:[facility] Start: 03-04-2024 End: 03-05-2024 ambulatory Lawson Parry Facility:[facility] Start: 03-04-2024 End: 03-04-2024 ambulatory Lawson Parry Facility:[facility] Start: 02-26-2024 End: 02-26-2024 ambulatory Reina Nick Heather Facility:[facility] Start: 02-26-2024 End: 02-26-2024 ambulatory Reina Nick Heather Facility:[facility] Start: 02-22-2024 ambulatory Cholo Smith Facility: [facility] Start: 02-22-2024 End: 02-22-2024 ambulatory LAWSON PARRY [facility] Start: 02-22-2024 End: 02-22-2024 ambulatory Reina Rashid Facility:[facility] Start: 02-20-2024 End: 02-21-2024 ambulatory Piedadedison Haysdeannaabundio Facility:[facility] Start: 02-19-2024 End: 02-19-2024 ambulatory Cholo Smith Facility:[facility] Start: 02-13-2024 End: 02-13-2024 ambulatory Reina Rashid Facility:[facility] Start: 10-20-2023 End: 10-20-[address] Cholo Smith Work Phone: [facility] Work Phone: Start: 10-20-2023 End: 10-20-[address] Cholo Smith Work Phone: [facility]-Laboratory, Specimen Work Phone: Start: 10-20-2023 End: 10-20-[address] Cholo Smith Work Phone: [facility] Work Phone: Start: 09-19-2023 End: 09-19-[address] Cholo Smith Work Phone: [facility] Work Phone: Start: 09-12-2023 End: 09-12-[address] Cholo Smith Work Phone: [facility] Work Phone: Start: 09-12-2023 End: 09-12-[address] [facility] Work [facility]: Start: 08-21-2023 End: 08-21-[address] Cholo Smith Work Phone: [facility] Work Phone: Start: 08-21-2023 End: 08-21-[address] [facility] Start: 08-21-2023 End: 08-21-[address] Cholo Smith Work Phone: [facility] Work Phone: Start: 05-30-2023 End: 05-30-[address] Cholo Smith Work Phone: [facility] Work Phone: Start: 05-26-2023 End: 05-26-[address] Cholo Smith Work Phone: [facility] Work Phone: Start: 05-26-2023 End: 05-26-[address] Cholo Smith Work Phone: [facility]-Laboratory, Berto Abernathy [facility] Start: 05-12-2023 End: 05-12-2023 ambulatory CHOLO SMITH Facility:[facility] Start: 05-12-2023 End: 05-12-2023 Patient encounter procedure Kelly Calabrese PA-C Work Phone: Orthopaedics Comment on above: Strain of calf muscl e, left, initial encounter (Primary Dx) Start: 05-12-2023 End: 05-12-2023 Subsequent hospital visit by physician [facility] Work Phone: Radiology Comment on above: Pain of left calf [M 79.662] Start: 03-22-2023 End: 03-22-[address] Cholo Smith Work Phone: [facility] Work Phone: Start: 03-22-2023 End: 03-22-[address] Cholo Smith Work Phone: [facility] Work Phone: Start: 03-03-2023 End: 03-03-[address] [facility] Work Phone: Start: 03-01-2023 End: 03-01-2023 ambulatory CHOLO SMITH Facility:[facility] Start: 03-01-2023 End: 03-01-2023 Subsequent hospital visit by physician [facility] Work Phone: Radiology Comment on above: Pain in left hip [M2 5.552] Start: 02-18-2023 End: 02-18-[address] Cholo Smith Work Phone: [facility] Work Phone: Start: 12-28-2022 End: 12-28-2022 ambulatory PIERRE HICKS Facility:[facility] Start: 12-28-2022 End: 12-28-2022 Patient encounter procedure ViancaYusra Morrell DO Work Phone: Orthopaedics Comment on above: S/P orthopedic surge ry, follow-up exam (Primary Dx); Trochanteric bursitis of right hip; Iliotibial band syndrome of right side Start: 12-08-2022 End: 12-08-2022 Emergency department patient visit Dr. Cholo Smith Work Phone: [facility]Emergency Department Start: 11-21-2022 End: 11-21-2022 ambulatory PIERRE HICKS Facility:[facility] Start: 11-09-2022 Telephone encounter Cathryn Morrell DO Work Phone: Orthopaedics Comment on above: Appointment Start: 11-08-2022 End: 11-08-2022 ambulatory J LUIS NINO (HISTORIC) [facility] Facility:[facility] Start: 11-02-2022 End: 11-02-2022 ambulatory J LUIS NINO (HISTORIC) [facility] Facility:[facility] Start: 11-02-2022 End: 11-02-2022 Patient encounter procedure ViancaYusra Morrell DO Work Phone: Orthopaedics Comment on above: Trochanteric bursiti s of right hip (Primary Dx); Iliotibial band syndrome of right side Start: 10-28-2022 End: 10-29-2022 ambulatory CATHRYN MORRELL Facility:[facility] Start: 10-28-2022 Encounter for other preprocedural examination J LUIS JACOBSON [facility] Start: 10-28-2022 End: 10-28-2022 Admission to establishment Pac Aldo 1 Work Phone: [facility] Start: 10-28-2022 End: 10-28-2022 ambulatory Pac Sharon 1 Work Phone: Pre Anesthesia Comment on above: Preop examination (P rimary Dx) Start: 10-28-2022 End: 10-28-2022 Preprocedural examination done Pac Aldo 1 Work Phone: Pre Anesthesia Start: 10-08-2022 End: 10-08-[address] Cholo Smith Work Phone: [facility] Start: 09-26-2022 Orders Only Viancaleon Morrell DO Work Phone: Orthopaedics Comment on above: Trochanteric bursiti s of right hip (Primary Dx); Iliotibial band syndrome of right side Start: 09-16-2022 End: 09-16-2022 ambulatory J LUIS NINO (HISTORIC) ZEWAIL Facility:[facility] Start: 09-12-2022 ambulatory ViancaYusra Morrell DO Work Phone: [facility] Start: 09-12-2022 Follow-up encounter ViancaYusra Morrell DO Work Phone: Orthopaedics Comment on above: MRI follow up Start: 09-07-2022 End: 09-07-[address] Cholo Smith Work Phone: [facility] Work Phone: Start: 09-07-2022 End: 09-07-[address] Cholo Smith Work Phone: [facility] Start: 09-02-2022 End: 09-02-[address] Cholo Smith Work Phone: [facility] Work Phone: Start: 09-02-2022 End: 09-02-[address] Cholo Smith Work Phone: [facility] Start: 09-01-2022 End: 09-01-[address] Cholo Smith Work Phone: [facility] Work Phone: Start: 09-01-2022 End: 09-01-[address] Cholo Smith Work Phone: [facility]Physical Therapy Start: 09-01-[address] Cholo Smith Work Phone: [facility] Start: 08-18-2022 End: 08-18-2022 ambulatory VIANCA JULIA Facility:[facility] Start: 08-18-2022 End: 08-18-2022 Patient encounter procedure Cathryn Morrell DO Work Phone: Orthopaedics Comment on above: Trochanteric bursiti s of right hip (Primary Dx) Start: 07-20-2022 End: 07-20-[address] Cholo Smith Work Phone: [facility] Virtual Visit Start: 07-18-2022 End: 07-18-[address] Cholo Smith Work Phone: [facility]-Outpatient Breast Imaging Start: 07-13-2022 End: 07-13-[address] Cholo Smith Work Phone: [facility] Start: 07-13-[address] Cholo disla Work Phone: [facility]-Employee Health Start: 07-06-2022 End: 07-06-2022 ambulatory VIANCA JULIA Facility:[facility] Start: 07-06-2022 End: 07-06-2022 Patient encounter procedure [...] Johnson PA-C Work Phone: [facility] [place] Comment on above: Appointment Start: 02-28-2022 End: 02-28-2022 Subsequent hospital visit by physician [facility] 1 Work Phone: Radiology Comment on [...] encounter procedure Dr. Cholo Smith Work Phone: [facility] Start: 12-15-2021 Telephone encounter Cathryn Morrell DO Work Phone: Orthopaedics Comment on above: Appointment Start: 12-08-2021 End: 12-08-2021 Patient encounter procedure Cathryn Morrell DO Work Phone: Orthopaedics Comment on above: Hip pain (Primary Dx ); Pain in hip; Trochanteric bursitis of right hip; Iliotibial band syndrome of right side Start: 12-08-2021 End: 12-08-2021 Subsequent hospital visit by physician [facility] Work Phone: Radiology Comment on above: Pain [R52] Start: 11-11-2021 Non-patient / Non-visit Dr. Cholo Smith Work Phone: [facility] Start: 11-03-2021 End: 11-03-[address] Cholo Smith Work Phone: [facility] Orthopaedic Specia Start: 10-04-2021 End: 10-04-[address] Cholo Smith Work Phone: [facility]atory, [place] [employer] Start: 09-14-2021 End: 09-14-[address] Cholo Smith Work Phone: [facility] Gastroenterology Procedures Date Procedure Procedure Detail Performing Clinician Start: 02-07-[address] Cholo Smith DO Work Phone: Start: 02-07-[address] Cholo Smith DO Work Phone: Start: 02-07-2025 Urnls dip stick/tabl et reagent auto microscopy Dr. Cholo Smith DO Work Phone: Start: 12-26-2024 Serologic test for syphilis Dr. [...] HCV Quant by PCR testing - HCVPCR #[id number] Non Reactive: < 0.8 Equivocal: >/= 0.8 [...] Work Phone: Start: 06-26-2024 Gram stain microscopy D ekaterina Smith DO Work Phone: Start: 06-26-2024 Polymerase [...] on tibia & fibula 2 views Kelly Calabrese PA-[employer] [place] Work Phone: Start: 03-01-2023 Radex hip unilateral with pelvis 2-3 views Kelly Calabrese PA-[employer] [place] Work Phone: Start: 09-02-2022 MRI of joint of lowe r extremity Dr. Cholo Smith Work Phone: Start: 07-18-2022 Bilateral mammography Annia Smith Work Phone: Start: 07-18-[address] Cholo Smith Work Phone: Start: 07-06-2022 Arthrocentesis aspir &/inj major jt/bursa w/o us Cathryn Morrell DO Work Phone: Start: 07-06-2022 Radex hip unilateral with pelvis 2-3 views Cathryn Morrell DO Work Phone: Start: 02-28-2022 Dup-scan xtr veins unilateral/limited study Kelly Johnson PA-C Work Phone: Start: 12-31-2021 MRI of joint of lowe r extremity Dr. Cholo Smith Work Phone: Start: 12-08-2021 Radex hip unilateral with pelvis 2-3 views Cathryn Morrell DO Work Phone: Viral antigen assay Dr. Cholo Smith Work Phone: Plan of Treatment Date Care Activity Detail Author Start: 06-15-2030 Urine microalbumin profile DTaP,Tdap,Td Vaccine (3 - Td or Tdap) [facility] Start: 02-07-2025 Bacteria identified in Urine by Culture Urine Culture [facility] Start: 02-07-2025 End: 02-07-2025 [facility] Start: 02-07-2025 Nonstress test [facility] Start: 02-07-2025 Obstetric monitoring [facility] Start: 02-07-2025 Vital signs measurements [facility] Start: 10-15-2024 Source specific culture Genital Cult ure [facility] Start: 10-15-2024 Source specific culture [facility] Start: 10-12-2024 [facility] Start: 06-11-2024 Colonoscopy flexible with band ligation(s) COLONOSCOPY W/BAND LIGATION [facility] Start: 06-11-2024 Destruction internal hemorrhoid thermal energy DESTROY INTERNAL HEMORRHOIDS [facility] Start: 06-11-2024 Patient discharge [facility] Start: 03-10-2024 Covid-19 Vaccine ( season) Covid-19 Vaccine ( season) [facility] Start: 03-10-2024 Influenza vaccination Influenza Vacc ine (#1) [facility] Start: 12-08-2022 Incision & drainage abscess simple/single DRAINAGE OF SKIN ABSCESS [facility] Start: 07-10-2022 [address] [facility] Start: 03-10-2022 Influenza vaccination INFLUENZA (#1) [facility] Start: 11-11-2021 Patient referral [facility] Work Phone: Start: 07-10-2021 DEPRESSION ASSESSMENT DEPRESSION ASS ESSMENT [facility] Start: 2018 HPV TESTING HPV TESTING [facility] Start: 2009 PAP TESTING PAP TESTING [facility] Start: 2009 Screening for malign ant neoplasm of cervix Cervical Cancer Screening [facility] Start: 11-14-2007 Urine microalbumin profile DTAP,TDAP,TD (1 - Tdap) [facility] Start: 2006 Anxiety Screening Anxiety Screening [facility] Start: 2006 Depression Screening Depression Scre ening [facility] Start: 2006 HEPATITIS C SCREENING HEPATITIS C SC [facility] Start: 2006 Hepatitis C screening Hepatitis C [facility] Start: 2006 HIV SCREENING HIV SCREENING [facility] Start: 2006 HIV screening HIV Screening [facility] Start: 2000 Adult depression screening assessment DEPRESSION SCREENING [facility] Start: 1988 HEPATITIS B (1 of 3 - 3-dose series) HEPATITIS B (1 of 3 - 3-dose series) [facility] CBC W Auto Different ial panel - Blood [facility] CBC W Auto Different ial panel - Blood [facility] Hepatitis B surface antigen measurement [facility] Hepatitis C antibody measurement [facility] HIV 1+2 Ab+HIV1 p24 Ag [Presence] in Serum or Plasma by Immunoassay [facility] Measurement of gluco se 2 hours after glucose challenge for glucose tolerance test [facility] End: 01-07-2023 Mri any jt lower extrem w/o contrast matrl MRI HIP WO IVCON RT Radiology Routine Pain in hip 1 Occurrences starting 12/08/2021 until 01/07/2023 [facility] Work Phone: Comment on above: 1 Occurrences starti ng 12/08/2021 until 01/07/2023 End: 09-17-2023 MRI HIP WO IVCON RT MRI HIP WO IVCON RT Radiology Routine Trochanteric bursitis of right hip 1 Occurrences starting 08/18/2022 until 09/17/2023 [facility] Work Phone: Comment on above: 1 Occurrences starti ng 08/18/2022 until 09/17/2023 Patient Education [facility] Work Phone: Patient referral [facility] Work Phone: Radionuclide study o f abdomen [facility] Rubella IgG measurement [facility] Serologic test for syphilis [facility] Treponema sp Ab [Presence] in Serum [facility] Urine culture [facility]dom[facility] Immunizations Immunization Date Immunization Notes Care Provider Fa karely 02-13-2025 tetanus toxoid, redu esthela diphtheria toxoid, and acellular pertussis vaccine, adsorbed Dr. Cholo Smith DO Work Phone: [facility] 05-16-2024 influenza, seasonal, injectable, preservative free Dr. Cholo Smith DO Work Phone: [facility] 01-15-2024 tetanus toxoid, redu esthela diphtheria toxoid, and acellular pertussis vaccine, adsorbed Dr. Cholo Smith DO Work Phone: [facility] 05-04-2023 Covid (Spikevax) Dr. Cholo Ann Work Phone: [facility] 04-12-2023 influenza, injectabl e, quadrivalent, preservative free Dr. Cholo Smith Work Phone: [facility] 04-12-2023 influenza virus vaccine, unspecified formulation [employer] Work Phone: [facility] 04-11-2022 influenza, injectabl e, quadrivalent, preservative free Dr. Cholo Smith Work Phone: [facility] 04-11-2022 influenza, seasonal, injectable Dr. Cholo Smith Work Phone: [facility] 04-01-2022 Covid Pfizer Bivalen t Booster Dr. Cholo Smith Work Phone: [facility] 05-14-2021 Covid (Pfizer) Dr. Cholo lopez Work Phone: [facility] 04-16-2021 influenza, injectabl e, quadrivalent, preservative free Dr. Cholo Smith Work Phone: [facility] 04-16-2021 influenza, seasonal, injectable Dr. Cholo Smith Work Phone: [facility] 10-01-2020 Covid (Pfizer) Dr. Cholo lopez Work Phone: [facility] 09-10-2020 Covid (Pfizer) Dr. Cholo lopez Work Phone: [facility] 06-15-2020 tetanus toxoid, redu esthela diphtheria toxoid, and acellular pertussis vaccine, adsorbed Dr. Cholo Smith Work Phone: [facility] 04-15-2020 influenza, injectabl e, quadrivalent, preservative free Dr. Cholo Smith Work Phone: [facility] 04-15-2020 influenza, seasonal, injectable Dr. Cholo Smith Work Phone: [facility] 11-25-2019 hepatitis B vaccine, adult dosage Dr. Cholo Smith Work Phone: [facility] 06-27-2019 hepatitis B vaccine, adult dosage Dr. Cholo Smith Work Phone: [facility] 05-30-2019 hepatitis B vaccine, adult dosage Dr. Cholo Smith Work Phone: [facility] 02-23-2018 influenza, injectabl e, quadrivalent, preservative free Dr. Cholo Smith Work Phone: [facility] 02-23-2018 influenza, seasonal, injectable Dr. Cholo Smith Work Phone: [facility] 02-23-2018 tetanus toxoid, redu esthela diphtheria toxoid, and acellular pertussis vaccine, adsorbed Dr. Cholo Smith Work Phone: [facility] Payers Date Payer Category Payer Self-pay [id number] 2022 Unknown [id number] 2020 Unknown [employer]LA [employer] SS PPO [id number] 2020-Present [phone] [address] [place] [address] PPO [id number] 2020 Unknown [id number] 2020 Unknown [id number]. 1.13.159.2.7.3.6 [id number] 1988 Unknown [id number] 2.840.1.455895.3.579.2.479 1988 Unknown [id number] 2.16840.1.131396.3.579.2.479 1988 Unknown [id number] 2.840.1.374799.3.579.2479 1988 Unknown [id number] 2.16840.1.708345.3.579.2.479 1988 Unknown [id number] 2.840.1.351765.3.579.2.479 1988 Unknown [id number] 2.16840.1.123116.3.579.2.479 Unknown [id number] 2.840.1.859368.3.579.2.462 Unknown [id number] 2.16840.1.500533.3.579.2.462 Unknown [id number] 2.16840.1.069122.3.579.2.462 Unknown [id number] 2.16840.1.788854.3.579.2.462 Unknown [id number] 2.16840.1.606546.3.579.2.462 Unknown [id number] 2.16840.1.833890.3.579.2.462 Unknown [id number] 2.16.840.1.192466.3.579.2.462 Unknown [id number] 2.16.840.1.585206.3.579.2.462 Unknown [id number] 2.16.840.1.737587.3.579.2.462 Unknown [id number] 2.16.840.1.219151.3.579.2.462 Unknown [id number] 2.840.1.040432.3.579.2.462 Unknown [id number] 2.840.1.573784.3.579.2.462 Unknown [id number] 2.840.1.393105.3.579.2.462 Unknown [id number] 2.840.1.986853.3.579.2.462 Unknown [id number] 2.840.1.919519.3.579.2.462 Unknown [id number] 2.840.1.301537.3.579.2.462 Unknown [id number] 2.840.1.319845.3.579.2.462 Unknown [id number] 2.840.1.154894.3.579.2.462 Unknown [id number] 2.840.1.783040.3.579.2.462 Unknown [id number] 2.840.1.149351.3.579.2.462 Unknown [id number] 2.840.1.460974.3.579.2.462 Unknown [id number] 2.840.1.835401.3.579.2.462 Unknown [id number] 2..840.1.720447.3.579.2.462 Unknown [id number] 2.840.1.162578.3.579.2.462 Unknown [id number] 2.840.1.740245.3.579.2.462 Unknown [id number] 2.16840.1.274579.3.579.2.462 Unknown [id number] 2.840.1.192109.3.579.2.462 Unknown [id number] 2.840.1.752289.3.579.2.462 Unknown [id number] 2.840.1.804759.3.579.2.462 Unknown [id number] 2.840.1.470957.3.579.2.462 Unknown [id number] 2.840.1.742019.3.579.2.462 Unknown [id number] 2.840.1.270100.3.579.2.462 Unknown [id number] 2.840.1.084410.3.579.2.462 Unknown [id number] 2.840.1.282164.3.579.2.462 Unknown [id number] 2.840.1.656704.3.579.2.462 Unknown [id number] 2.840.1.060651.3.579.2.462 Unknown [id number] 2.840.1.654292.3.579.2.462 Unknown [id number] 2.840.1.193507.3.579.2.462 Unknown [id number] 2.840.1.860362.3.579.2.462 Unknown [id number] .840.1.005748.3.579.2.462 Unknown [id number] 2.840.1.898902.3.579.2.462 Unknown [id number] 2.840.1.463880.3.579.2.462 Unknown [id number] 2.840.1.252990.3.579.2.462 Unknown [id number] 2.16.840.1.153850.3.579.2.462 Unknown [id number] 2.16.840.1.060603.3.579.2.462 Unknown [id number] 2.16.840.1.910718.3.579.2.462 Unknown [id number] 2.16.840.1.711796.3.579.2.462 Unknown [id number] 2.16.840.1.139765.3.579.2.462 Unknown [id number] 2.16.840.1.236814.3.579.2.462 Unknown [id number] 2.16.840.1.626440.3.579.2.462 Unknown [id number] 2.16.840.1.484797.3.579.2.462 Unknown [id number] 2.16.840.1.217174.3.579.2.462 Unknown [id number] 2.16.840.1.885427.3.579.2.462 Social History Date Type Detail Facility Start: 03-09-2022 End: 01-13-2025 Tobacco smoking status NHIS Never smoked tobacco [facility] Start: 12-08-2021 End: 04-21-2022 Alcohol intake Current non-drinker of alcohol (finding) [facility] Start: 1990 Sex Assigned At Female [facility] Start: 11-28-2021 End: 04-21-2022 Exposure to SARS-CoV-2 (event) Not sure [facility] Start: 11-03-2021 End: 10-20-2023 Tobacco smoking status NHIS Unknown if ever smoked [facility] Start: 11-01-2019 Non-smoker [facility] Start: 01-18-2022 End: 01-28-2022 Exposure to SARS-CoV-2 (event) Unable to assess [facility] Start: 03-09-2022 Tobacco use and exposure Smokeless tobacco non-user [facility] Start: 12-08-2021 End: 05-12-2023 History of Social function [facility] Start: 12-08-2021 End: 05-12-2023 Tobacco use panel [facility] Adult Depression Screening Assessment 0 [facility] Start: 12-08-2021 Gender identity Identifies as female gender (finding) [facility] Start: 12-08-2021 Sexual orientation Heterosexual (yolanda frias) [facility] Start: 09-24-2024 End: 10-17-2024 Sex Female (finding) [facility] NEGATED: Highlighted row [facility] NEGATED: Highlighted row Not [facility] Medical Equipment Procedure Code Equipment Code Equipment Origin al Text Equipment Identifier Dates Colonoscopy Oesophageal endoscopic ligator, single-useHaemorrhoid ligator [id number] FDA Start: 06-11-2024 Goals Date Patient Goal Desired Activity /State Mental Status Date Assessment Result Facility 06-11-2024 Cognitive function Level Of Consciousness Sedated [facility] Work Phone: 06-11-2024 Cognitive function Voice/Name [facility] Work Phone: Clinical Notes 12-08-2021 to 02-13-2025 Note Date & Type Note Facility 02-13-2025 Progress note [facility] 02-13-2025 Progress note Note Date/Time February 13, 2025 4:37pm [facility] [address], [address] [place] [address] OFFICE VISIT Date of Service: 02/13/25 MR#: [id number] Acct: [id number] Name: MANDI VALENTE Rep #: [id number] : 1990 Provider: Dr. Bernadine Rashid DO Age/Sex: 34/F [place] [facility] Status: Signed Intake Vital Signs 12/04/24 14:55 02/07/25 12:21 02/13/25 16:08 Height 5 ft 2 in 5 ft 2 in 5 ft 2 in Weight: 218 lb 6 oz BMI 39.9 BP 120/82 H Intake Visit Reasons: 34 wk ob *Doc Only Tram Inspector Required: No Is patient in pain?: No Allergies No Known Allergies Allergy (Verified 02/13/25 16:06) Medications ?Medication ?Instructions ?Recorded ?Confirmed ?Type multivitamin no.47-iron fum 27 1 cap PO DAILY pregnanc y 08/18/23 02/13/25 History mg-folate no.1 1 mg-dha 300 mg capsule (PNV-DHA) Diltiazem 2% / Lidocaine 5% #1 ea 06/24/24 02/13/25 Rx ointment (compound) polyethylene glycol 3350 17 4 g PO QDAY PRN 06/24/24 0 02/13/25 History gram/dose oral powder (Miralax) ferrous sulfate 325 mg (65 mg 325 mg PO Q OTHER DAY 02/13/25 History iron) tablet folic acid 0.8 mg capsule 0.8 mg PO QDAY 08/06/2401/31 History famotidine 20 mg tablet (Pepcid) 20 mg PO BID 90 days #180 tabs 09/10/24 02/13/25 Rx hydroxyzine pamoate 25 mg capsule 25 mg PO QHS PRN itc marla #30 caps 01/03/25 02/13/25 Rx Last Menstrual Period: 06/20/24 Zika: Zika virus screening: Negative : [facility] Medical History Seasonal allergies Hx of [...] 4 current occupational status: employed 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 Date Name GA/Weeks Outcome Route Bth Weight Gen Labor Lgth Anesthesia Del Locatn Provider FOB 04/05/18 Vinsen 41 live - full term 9#7oz Male 26 hrs epid ural [employer] Shey Madsen Alvarez 11/01/19 10 spontaneous 08/10/20 Lakisha 37 live - full term 5#14oz Female 10 HR epid ural [employer] Jenni Pino 08/10/20 Mccreary 37 live - full term 6#4oz Male 10 HR epid ural [facility] [facility] Jenni Pino 03/19/24 Elaine 39 live - full term 8lbs 2oz Female [employer] Dr. Gleason Delivery Date: 04/05/18 Last Updated [...] Updated by: Lauren ANTHONY, gestational hypertension HPI 34 wk ob *Doc Only Details: MANDI VALENTE is a 34 year old who presents for routine OB visit. OB Visit RAMSES Calculator Estimated Delivery Date Method Current WG Current Estimate 03/27/25 LMP (Certain) 34w 0d Expected Delivery Route/Plan Labor Preferences- CB/BF classes: [...] list details Initial Weight: 196 lb Date -?-?-?-?-?-?--?-?-?-?-?-?- EGA Weight BP Urine Prot -?-?-?-?-?-?-?-?-?-?-?-?- Glucose [...] gets recurrent yeast infections with atb. timo CRUZ noted on US. will RTO in 2 weeks for follow up appt. 09/10/24 -?-?-?-?-?-?-?-?-?-?-?-?- 11w 5d 196 lb 2 oz (+2 oz) 136/85 Negative -?-?-?-?-?-?-?-?-?-?-?-?- Negative 155 -?-?-?-?-?-?-?-?-?-?-?-?- JV- no complaint s today. blood work done. 10/07/24 -?-?-?-?-?-?-?-?-?-?-?-?- 15w 4d 200 lb 2 oz (+4 lb 2 oz) 138/85 Negative -?-?-?-?-?-?-?-?-?-?-?-?- Negative 149 -?-?-?-?-?-?-?-?-?-?-?-?- KW- no vb/lof/ct x. cyst is bothersome again. [facility] US scheduled KW- no vb/lof/ctx. cyst is b othersome again discussed with SM. [facility] scheduled 10/15/24 -?-?-?-?-?-?-?-?-?-?-?-?- 16w 5d 200 lb 6 oz (+4 lb 6 oz) 136/86 Negative -?-?-?-?-?-?-?-?-?-?-?-?- Negative 135 -?-?-?-?-?-?-?-?-?-?-?-?- SM- had episode of light bleeding yeast seen in ER hasn't been treated yet. urine culture and vaginal culture sent 11/07/24 -?-?-?-?-?-?-?-?-?-?-?-?- 20w 0d 205 lb 8 oz (+9 lb 8 oz) 117/77 Negative -?-?-?-?--?-?-?-?-?-?-?-?- Negative 145 -?-?-?-?-?-?-?-?-?-?-?-?- SM- no vb lof cr ampingboy on US SM- no vb lof cramping boy o n US 12/04/24 -?-?-?-?-?-?-?-?-?-?--?-?- 23w 6d 210 lb 8 oz (+14 [...] oz) 126/87 Negative -?-?-?-?-?-?-?-?-?-?-?-?- Negative 130 31 -?-?-?-?-?-?-?-?-?-?-?-?- KW- no vb/lof/ct x. good fm. has 3 hour glucose tomorrow. 01/29/25 -?-?-?-?-?-?-?-?-?-?-?-?- 31w 6d 217 lb 8 oz (+21 lb 8 oz) 129/78 Negative -?-?-?-?-?-?-?-?-?-?-?-?- Negative 146 32 -?-?-?-?-?-?-?-?-?-?-?-?- JV- still has a rash and twin humzas saw her and thought it was just related dermatitis. not pupps. larc done today. likely plan for 38 weekIOL due to gestational hypertension and sooner delivery if bp's are higher or if develops proteinuria. she still would like the vaginal cyst removed after delivery . also wants a tubal at 10 weeks so we can always do a little posterior repair and removal of the cyst at the time of the tubal. 02/13/25 -?-?-?-?-?-?-?-?-?-?-?-?- 34w 0d 218 lb 6 oz (+22 lb 6 oz) 120/82 Negative -?-?-?-?-?-?-?-?-?-?-?-?- Negative 145 35 Breech -?-?-?-?-?-?-?-?-?-?-?-?- JV- breech on ul trasound with mfm today. tech told her the AC is now 99th%. her official growth is next week though. we talked about version if could be appropriate we would do at 37 weeks. BP's looking better so may not fit criteria for GHTN and delivery at 38 weeks. we can offer 39 week elective induction though. ACOG First Trimester First Trimester: Discussed Second [...] Negative Last Edit by Lauren Osborn on 02/13/25 16: 22 Office Urine Protein Negative Last Edit by Lauren Osborn on 02/13/25 16: 22 Immunizations Adacel(Tdap Adolesn/Adult)(PF) 2 Lf-(2.5-5-3-5)-5 Lf/0.5 mL IM syringe Performing Provider: Reina Rashid DO Performing Location: [facility] Administered by: Lauren Osborn on 02/13/25 16:21 Dose Route Admin Location Dispensed Lot Number Expiration Date NDC Director Of Field Coordination 0.5 mL IM Left Deltoid 0.5 mL [id number] 01/06/27 [id number] [employer] VIS Given Date VIS Provided VIS Publication Date 02/13/25 Single Vaccine 24 Eligibility Eligibility Date Funding Source Not Applicable Coding Level of Care Code OB Routine Diagnoses Contraction, [facility] Osman O47.9 LGA (large for gestational age) fetus Advanced maternal age in multigravida O09.529 Abnormal glucose affecting O99.810 Short interval between pregnancies affecting in first trimester, antepartum O09.891 History of miscarriage, currently O09.299 Supervision of high-risk O09.90 34 weeks gestation of Z3A.34 Weeks of gestation: 34 weeks Hx of twin in prior Z87.59 Obesity affecting O99.210 Inclusion cyst of vulva N90.7 Hx of pre-eclampsia in prior , currently O09.299 Abdominal pain R10.9 Perianal candidiasis B37.89 Rectal pain K62.89 Pelvic floor weakness in female N81.89 Chronic anemia D64.9 Gestational hypertension, antepartum O13.9 Trimester: unspecified trimester Hemorrhoids, unspecified hemorrhoid type K64.9 Hemorrhoid type: unspecified Lymphocytic colitis K52.832 Assessment and Plan Assessment and Plan (1) Contraction, Romero Osman: Status: Acute Comment: fingertip per nursing dilated with less intense/frequency in ctx. (2) LGA (large for gestational age) fetus: Status: Acute Comment: 32wk: EFW 69%, AC 97%: rpt 1 hr GCT/normal (3) Advanced maternal age in multigravida: Status: Acute (4) Abnormal glucose affecting : Status: Acute Comment: normal 3 hour (5) Short interval between pregnancies affecting in first trimester, antepartum: Status: Acute Comment: baby 4 months old when became with this gestation. (6) History of miscarriage, currently : Status: Acute (7) Supervision of high-risk : Status: Acute Comment: PRR,, RAMSES 03/27/25, boy,PC Yasmine, Lakisha & Earnestine(Twins), Elaine Alvarez will be 39 weeks on Elaine's b-day. requests IOL on this day. (8) : Status: Acute Qualifiers: Weeks of gestation: 34 weeks Qualified Code(s): Z3A.34 - 34 weeks gestation of Comment: NIPT low risk, anatomy needs f/u views. (9) Hx of twin in prior : Status: Acute Comment: Fraternal (10) Obesity affecting : Status: Acute Comment: HgbA1c (11) Inclusion cyst of vulva: Status: Acute Comment: +actinomycis:4 wk of amoxil (12) Hx of pre-eclampsia in prior , currently : Status: Acute Comment: negative labs . bp stable in WP. headache resolved. (13) Abdominal pain: Status: Acute (14) Perianal candidiasis: Status: Acute (15) Rectal pain: Status: Acute (16) Pelvic floor weakness in female: Status: Acute (17) Chronic anemia: Status: Chronic (18) Gestational hypertension: Status: Acute Qualifiers: Trimester: unspecified trimester Qualified Code(s): O13.9 - Gestational [-induced] hypertension without significant proteinuria, unspecified trimester Comment: resolved pp (19) Hemorrhoids: Status: Acute Qualifiers: Hemorrhoid type: unspecified Qualified Code(s): K64.9 - Unspecified hemorrhoids (20) Lymphocytic colitis: Status: Acute Orders: Orders POC Urinalysis 2 Dip (Clinic) Today Tdap Immunization Today Z23 - Encounter for immunization Medications: New Adacel(Tdap Adolesn/Adult)(PF) (diph,pertuss(acel),tet vac(PF)) 0.5 mL IM ONCE 0.5 mL 0RF NS Z23 - Encounter for immunization 02/13/25 9862 <Electronically signed by Reina Billings DO> Date _ Reina Park Romero DO [facility] Signature: Date (if applicable) CC: ~ [facility] Work Phone: 1(737) 328-281608-01-2025 History and physical note [facility] Medical Records Department [address] [place] [address] OB Triage Physician Note 02/07/25 1433 MR#: [id number] Acct: [id number] Name: MANDI VALENTE Rep #:[id number] : 1990 34 From: Linda Hammond CNM PCP: Dr. Cholo Smith, DO Status:REG CLI Y Location: [place] [address]-1 HPI - General HPI Narrative MANDI VALENTE, is a 34 F who presents at 33.1 with contractions and headache this morning. headache greatly improved with tylenol and contractions upon arrival were already less intense and less frequent. no hx of PTL/PTB Maternal Data Information RAMSES Calculator Estimated Delivery Date Method Current WG Current Estimate 03/27/25 LMP (Certain) 33w 1d PFSH PFSH Medical History Seasonal allergies Hx of pre-eclampsia in prior , currently Superficial varicosities Pre-eclampsia Galactorrhea Allergic dermatitis Trochanteric bursitis of right hip Lymphocytic colitis Non-smoker History of steroid therapy Constipation Umbilical hernia Chronic constipation Dichorionic diamniotic twin gestation Anal fissure External hemorrhoids Home Medications ?Medication ?Instructions ?Recorded ?Last Taken ?Type multivitamin no.47-iron fum 27 1 cap PO DAILY pregnanc y 08/18/23 Unknown History mg-folate no.1 1 mg-dha 300 mg capsule (PNV-DHA) Diltiazem 2% / Lidocaine 5% #1 ea 06/24/24 Unknown Rx ointment (compound) polyethylene glycol 3350 17 4 g PO QDAY PRN 12/16/24 U nknown History gram/dose oral powder (Miralax) ferrous sulfate 325 mg (65 mg 325 mg PO Q OTHER DAY Unknown History iron) tablet folic acid 0.8 mg capsule 0.8 mg PO QDAY 08/06/24 Unkn own History famotidine 20 mg tablet (Pepcid) 20 mg PO BID 90 days #180 tabs 09/10/24 Unknown Rx hydroxyzine pamoate 25 mg capsule 25 mg PO QHS PRN itc marla #30 caps 01/03/25 Unknown Rx Allergy/AdvReac Type Severity Reaction Status Date / Time No Known Allergies Allergy Verified 02/07/25 13:44 Family History Mother Arthritis Hypertension Father Arthritis Hypertension CVA (cerebral vascular accident) Aunt Breast cancer Paternal Grandfather Heart disease Kidney disease Brother Hypertension Sister Hypertension Grandmother Breast cancer Paternal Diabetes Paternal Surgical History History of hip surgery Hx of umbilical hernia repair Hx of dilation and curettage History of hemorrhoidectomy (~05/2018) History of tonsillectomy Social History adopted: No household members: spouse and children number of children: 4 current occupational status: employed 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 Date Name GA/Weeks Outcome Route Bth Weight Gen Labor Lgth Anesthesia Del Locatn Provider FOB 04/05/18 Vinsen 41 live - full term 9#7oz Male 26 hrs epid ural [employer] Shey Madsen Alvarez 11/01/19 10 spontaneous 08/10/20 Lakisha 37 live - full term 5#14oz Female 10 HR epid ural [employer] Jenni Pino 08/10/20 Mccreary 37 live - full term 6#4oz Male 10 HR epid ural [facility] [facility] Jenni Pino 03/19/24 Elaine 39 live - full term 8lbs 2oz Female [employer] Dr. Gleason Delivery Date: 04/05/18 Last Updated [...] Last Updated by: Lauren ANTHONY, gestational hypertension Visit Details Expected Delivery Route/Plan Labor Preferences- CB/BF classes: [] labor support person: [] labor intervention preferences: [] pain management options preferred: [] cut cord/dad catch: [] : [] PP control planned: [] discussed possible routes of delivery and associated risks: [] special requests: [] Plans Covid status: [] Flu vaccine: [] Tdap vaccine: [] Rhogam: [] LARC form signed: [] Problem list reviewed and updated with the most current plan of care details and appropriate ordersplaced. Relevant counseling for the gestational age provided. Continue routine care and follow up unless otherwise noted in visit notes/problem list details OB Flowsheet Initial Weight: 196 lb Date -?-?-?-?-?-?-?-?-?-?-?-?- EGA [...] no vb/lof/ct x. cyst is bothersome again. [facility] scheduled KW- no vb/lof/ctx. cyst is b othersome again discussed with . [facility] scheduled 10/15/24 -?-?-?-?-?-?-?-?-?-?-?-?- 16w 5d 200 lb [...] oz) 126/87 Negative -?-?-?-?-?-?-?-?-?-?-?-?- Negative 130 31 -?-?-?-?-?-?-?-?-?-?-?-?- KW- no vb/lof/ct x. good fm. has 3 hour glucose tomorrow. 01/29/25 -?-?-?-?-?-?-?-?-?-?-?-?- 31w 6d 217 lb 8 oz (+21 lb 8 oz) 129/78 Negative -?-?-?-?-?-?-?-?-?-?-?-?- Negative 146 32 -?-?-?-?-?-?-?-?-?-?-?-?- JV- still has a rash and twin oaks saw her and thought it was just related dermatitis. not pupps. larc done today. likely plan for 38 weekIOL due to gestational hypertension and sooner delivery if bp's are higher or if develops proteinuria. she still would like the vaginal cyst removed after delivery . also wants a tubal at 10 weeks so we can always do a little posterior repair and removal of the cyst at the time of the tubal. NST FHR Rate Baby A Baseline: 130 Variability:: Moderate Accelerations:: 15 x 15 Decelerations:: None NST Reactive:: Yes FHR Category:: Category I Uterine Activity:: irregular q4-12 Assessment & Plan (1) Contraction, Romero Osman: COMMENT: fingertip per nursing dilated with less intense/frequency in ctx. (2) Hx of pre-eclampsia in prior , currently : COMMENT: negative labs . bp stable in WP. headache resolved. PLAN: Plan Patient presents for triage evaluation secondary to contractions. FHT: Moderate variability reactive no decelerations category I tracing Adak: irregular Contractions Assessment and plan: Reactive NST, reassuring maternal and status patient discharged to home to follow-up in office.. See problem list details for additional plan information. Charges/Coding Procedures Urinary/Genital 52xxx-59xxx: 57761-33 non-stress test Interp 02/07/25 1437 ns ERI> Date _ Linda Hammond CNM Cosigner Signature (if applicable): Date CC: ERI Hammond; Dr. Cholo Smith, DO ~ Signed [facility]07-07-2025 Progress [facility] [address], [address] [place] [address] OFFICE VISIT Date of Service: 01/13/25 MR#: [id number] Acct: [id number] Name: MANDI VALENTE Rep #: [id number] : 1990 Provider: ERI Parry Age/Sex: 34/F [place] [facility] [place]: Signed Intake Vital Signs 11/07/24 09:36 01/03/25 15:03 01/13/25 10:45 Height 5 ft 2 in 5 ft 2 in 5 ft 2 in Weight: 215 lb 8 oz BMI 39.4 BP 126/87 H Intake Visit Reasons: 30 wk ob Chief Complaint: 30wk ob Tram Inspector Required: No Is patient in pain?: No [...] 0.8 mg capsule 0.8 mg PO QDAY 08/06/2401/31 History famotidine 20 mg tablet (Pepcid) 20 [...] 4 current occupational status: employed 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 Date Name GA/Weeks Outcome Route Bth Weight Gen Labor Lgth Anesthesia Del Locatn Provider FOB 04/05/18 Vinsen 41 live - full term 9#7oz Male 26 hrs epid ural [facility] Shey Madsen Alvarez 11/01/19 10 spontaneous 08/10/20 Lakisha 37 live - full term 5#14oz Female 10 HR epid ural [facility] Jenni Pino 08/10/20 Mccreary 37 live - full term 6#4oz Male 10 HR epid ural [facility] Jenni Pino 03/19/24 Elaine 39 live - full term 8lbs 2oz Female [facility] Dr. Gleason Delivery Date: 04/05/18 Last Updated [...] current plan of care details and appropriate ordersplaced. Relevant counseling for the gestational age provided. [...] no vb/lof/ct x. cyst is bothersome again. [facility] scheduled KW- no vb/lof/ctx. cyst is b othersome again discussed with SM. [facility] scheduled 10/15/24 -?-?-?-?-?-?-?-?-?-?-?-?- 16w 5d 200 lb [...] : Status: Acute Comment: PRR,, RAMSES 03/27/25, boy,Lakisha Gu & Earnestine(Twins), Elaine Alvarez will be 39 weeks on Elaine's -day. requests IOL on this day. (17) Hx of twin in prior : Status: Acute Comment: Fraternal (18) History of miscarriage, currently : Status: Acute Orders: Orders POC Urinalysis 2 Dip (Clinic) Today 01/13/25 1106 s CNM> Date _ Lawson Parry CNM Cosigner Signature: Date (if applicable) CC: ~ [id number] [facility] [address] [place] [address], [address] [place] [address] OFFICE VISIT Date of Service: 12/04/24 MR#: [id number] Acct: [id number] Name: MANDI VALENTE Rep #: [id number] : 1990 Provider: Dr. 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 Date Name GA/Weeks Outcome Route Bth Weight Infant Gen Labor Lgth Anes thes ia Del Locatn Provider FOB 04/05/18 Vinsen 41 live - full term 9#7oz Male 26 hrs epid ural [facility] Katkeily Madsen Alvarez 11/01/19 10 spontaneous 08/10/20 Lakisha 37 live - full term 5#14oz Female 10 HR epid ural [facility] Jenni Pino 08/10/20 Abran 37 live - full term 6#4oz Male 10 HR epid ural [facility] Jenni Pino 03/19/24 Elaine 39 live - full term 8lbs 2oz Female [facility] Dr. Gleason Delivery Date: 04/05/18 Last Updated by: Merna Bermeo IOL post dates Delivery Date: 11/01/19 Last Updated by: Merna Bermeo D&C, blighted Ovum Delivery Date: 08/10/20 Last Updated by: Merna Bermeo IOL @ 37wks Twins, Gestational HTN/pre-e Delivery Date: 08/10/20 Last Updated by: Merna Bermeo IOL @ 37 weeks twins, gestational HTN, pre e Delivery Date: 03/19/24 Last Updated by: Lauren Osborn AMA, gestational hypertension HPI 24 wk ob Details: [...] current plan of care details and appropriate ordersplaced. Relevant counseling for the gestational age provided. [...] no vb/lof/ct x. cyst is bothersome again. [facility] scheduled KW- no vb/lof/ctx. cyst is b othersome again discussed with SM. [facility] scheduled 10/15/24 -?-?--?-?-?-?-?-?-?-?-?-?- 16w 5d 200 lb [...] Elaine Alvarez will be 39 weeks on Elaine'-. requests IOL on this day. (6) : [...] risk , unspecified, unspecified trimester 12/04/24 1524 e Heather DO> Date _ Reina Rashid DO [facility] Signature: Date (if applicable) CC: ~ [facility]05-28-2025 Progress note Author Reina Romero [facility] Note Date/Time December 04, 2024 3:24p [facility] [address], [address] [place] [address] OFFICE VISIT Date of Service: 12/04/24 MR#: [id number] Acct: [id number] Name: CHOCOIMELDAMANDIJUVE YOU Rep #: [id number] : 1990 Provider: Dr. 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 Date Name GA/Weeks Outcome Route Bth Weight Gen Labor Lgth Anes thes ia Del Locatn Provider FOB 04/05/18 Vinsen 41 live - full term 9#7oz Male 26 hrs epid ural [facility] Shey Madsen Alvarez 11/01/19 10 spontaneous 08/10/20 Lakisha 37 live - full term 5#14oz Female 10 HR epid ural [facility] Jenni Pino 08/10/20 Abran 37 live - full term 6#4oz Male 10 HR epid ural [facility] Jenni Pino 03/19/24 Elaine 39 live - full term 8lbs 2oz Female [facility] Dr. Gleason Delivery Date: 04/05/18 Last Updated by: Merna Bermeo IOL post dates Delivery Date: 11/01/19 Last Updated by: Merna Bermeo D&C, blighted Ovum Delivery Date: 08/10/20 Last Updated by: Merna Bermeo IOL @ 37wks Twins, Gestational HTN/pre-e Delivery Date: 08/10/20 Last Updated by: Merna Bermeo IOL @ 37 weeks twins, gestational HTN, pre e Delivery Date: 03/19/24 Last Updated by: Lauren Osborn AMA, gestational hypertension HPI 24 wk ob Details: [...] Negative -?-?-?-?-?-?-?-?--?-?-?-?- Negative 180 -?-?-?-?-?-?-?-?-?-?-?-?- KW- no vb/crahelga tapia. discussed starting atb and pt would like [...] no vb/lof/ct x. cyst is bothersome again. [facility] scheduled KW- no vb/lof/ctx. cyst is b othersome again discussed with . [facility] scheduled 10/15/24 -?-?--?-?-?-?-?-?-?-?-?-?- 16w 5d 200 lb [...] Alvarez will be 39 weeks on Elaine's b-. requests IOL on this day. (6) : [...] by Reina Billings DO> Date _ Reina Rashid DO Cosigner Signature: Date (if applicable) CC: ~ [facility] Work Phone: 1(971) 382-296805-01-2025 Evaluation note* Diagnosis Onset Date Resolution Status Admit Date Abdominal pain acute November 07 9:28am Gestational hypertension acute November 07, 2024 9:28am Hemorrhoids acute November 07, 2024 9:28am History of miscarriage, currently acute November 07, 2024 9:28am Hx of pre-eclampsia in prior , currently acute Ma y 2024 9:28am Hx of twin in prio [...] Chronic anemia chronic November 07, 025 9:28am Advanced maternal age [...] pre-eclampsia in prior , currently acute 2024 10:41am Hx of twin in prio r acute January 13, 2025 1 0:41am Inclusion cyst of vulva acute J sunita2024 10:41am Lymphocytic colitis acute January 13, 2025 [...] Chronic anemia chronic January 13, 2025 10:41am Abdominal pain acute January 29, 2025 9:53am Abnormal glucose affecting acute January 29, 2025 9:53am Advanced maternal age in multigravida acute January 29, 2025 9:53am Gestational hypertension acute January 29, 2025 9:53am Hemorrhoids acute January 29 9:53am History of miscarriage, currently acute January 29 9:53am Hx of pre-eclampsia in prior , currently acute ly 2024 9:53am Hx of twin in prio r acute January 29, 2025 9:53am Inclusion cyst of vulva acute J usnita 2024 9:53am Lymphocytic colitis acute January 29, 2025 9:53am Obesity affecting acute January 29, 2025 9:53am Pelvic floor weakness in female acut e January 29, 2025 9:53am Perianal candidiasis acute January 29, 2025 9:53am acute January 29 9:53am Rectal pain acute January 29 9:53am Short interval between pregnancies affecting in first trimester, acute January 29, 025 9:53am Supervision of high-risk acute January 29, 2025 9:53am Chronic anemia chronic January 29, 2025 9:53am Contraction, Romero Osman acute February 07, 2025 11:50am Hx of pre-eclampsia in prior , currently acute Au 2024 11:50am Abdominal pain acute February 3:56pm Abnormal glucose affecting acute February 13, 2025 3:56pm Advanced maternal age in multigravida acute February 13, 2025 3:56pm Contraction, [facility] Landry Osman acute February 13, 2025 3:56pm Gestational hypertension acute February 13, 2025 3:56pm Hemorrhoids acute February 13, 2 025 3:56pm History of miscarriage, currently acute February 13, 2 025 3:56pm Hx of pre-eclampsia in prior , currently acute Au laura 2024 3:56pm Hx of twin in prio r acute February 13, 2025 3:56pm Inclusion cyst of vulva acute A ugust 2024 3:56pm LGA (large for gestational a ge) fetus acute February 13, 2025 3:56pm Lymphocytic colitis acute Augus t 2024 3:56pm Obesity affecting acute February 13, 2025 3:56pm Pelvic floor weakness in female acut e February 13, 2025 3:56pm Perianal candidiasis acute Febu st 2024 3:56pm acute February 13 3:56pm Rectal pain acute February 13, 2 025 3:56pm Short interval between pregnancies affecting in first trimester, acute February 13, 2025 3:56pm Supervision of high-risk acute February 13, 2025 3:56pm Chronic anemia chronic February 3:56pm [facility] Work Phone: 1(121) 866-322904-08-2025 Evaluation note* Diagnosis Onset Date Resolution Status Admit Date Abdominal pain acute October 15, 2024 12:44pm [...] 15, 2024 12:44pm Abdominal pain acute November 07, 2 025 9:28am Gestational hypertension acute November 07, 2024 9:28am Hemorrhoids acute November 07, 2024 9:28am History of miscarriage, currently acute November 07, 2024 9:28am Hx of pre-eclampsia in prior , currently acute Ma y 2024 9:28am Hx of twin in prio [...] Chronic anemia chronic November 07, 025 9:28am Advanced maternal age [...] 2025 2:52pm Pelvic floor weakness in female acute January 03, 2025 2:52pm Perianal candidiasis acute January 03, 2025 2:52pm acute January 03 2:52pm Rectal pain acute January 03 2:52pm Short interval between pregnancies affecting in first trimester, acute Ju ne 2024 2:52pm Supervision of high-risk acute January 03, [...] 0:41am Inclusion cyst of vulva acute J sunita2024 10:41am Lymphocytic colitis acute January 13, 2025 10:41am Obesity affecting acute January 13, 2025 10:41am Pelvic floor weakness in female acute January 13, 2025 1 0:41am Perianal candidiasis acute January 13, 2025 10:41am acute January 13, 2025 10:41am Rectal pain acute January 13 10:41am Short interval between pregnancies affecting in first trimester, acute Ju ly 2024 10:41am Supervision of high-risk acute January 13, 2025 1 0:41am Chronic anemia chronic January 13, 2025 10:41am Abdominal pain acute January 29, 2025 9:53am Abnormal glucose affecting acute January 29, 2025 9:53am Advanced maternal age in multigravida acute January 29, 2025 9:53am Gestational hypertension acute January 29, 2025 9:53am Hemorrhoids acute January 29 9:53am History of miscarriage, currently acute January 29 9:53am Hx of pre-eclampsia in prior , currently acute Ju ly 2024 9:53am Hx of twin in prio r acute January 29, 2025 9:53am Inclusion cyst of vulva acute J sunita 2024 9:53am Lymphocytic colitis acute January 29, 2025 9:53am Obesity affecting acute January 29, 2025 9:53am Pelvic floor weakness in female acute January 29, 2025 9:53am Perianal candidiasis acute January 29, 2025 9:53am acute January 29 9:53am Rectal pain acute January 29 9:53am Short interval between pregnancies affecting in first trimester, acute Ju ly 2024 9:53am Supervision of high-risk acute January 29, 2025 9:53am Chronic anemia chronic January 29, 2025 9:53am Contraction, Romero Osman acute February 07, 2025 11:50am Hx of pre-eclampsia in prior , currently acute Au 2024 11:50am [facility] Work Phone: 1(892) 871-656603-31-2025 Evaluation note* Diagnosis Onset Date Resolution Status [...] pregnancies affecting in first trimester, acute October 15 12:44pm Supervision of high-risk acute October 15, 2024 12:44pm Chronic anemia chronic October 15, 2024 12:44pm Pelvic cramping inactive October 12:44pm Vaginal bleeding in inacti ve October 15, 2024 12:44pm Yeast vaginitis inactive October 12:44pm Advanced maternal age (AMA) in deleted October 15, 2024 12:44pm Abdominal pain acute November 07, 025 9:28am Gestational hypertension acute November 07, 2024 9:28am Hemorrhoids acute November 07, 2024 9:28am History of miscarriage, currently acute November 07, 2024 9:28am Hx of pre-eclampsia in prior , currently acute Ma y 2024 9:28am Hx of twin in prio [...] Chronic anemia chronic November 07, 025 9:28am Advanced maternal age [...] pre-eclampsia in prior , currently acute Ju 2024 2:52pm Hx of twin in prio [...] pre-eclampsia in prior , currently acute Ju 2024 10:41am Hx of twin in prio r acute January 13, 2025 1 0:41am Inclusion cyst of vulva acute J 2024 10:41am Lymphocytic colitis acute January 13, [...] Chronic anemia chronic January 13, 2025 10:41am [facility] Work Phone: 1(775) 371-924503-31-2025 Evaluation note* Diagnosis Onset Date Resolution Status [...] pregnancies affecting in first trimester, acute October 15 12:44pm Supervision of high-risk acute October 15, 2024 12:44pm Chronic anemia chronic October 15, 2024 12:44pm Pelvic cramping inactive October 12:44pm Vaginal bleeding in inacti ve October 15, 2024 12:44pm Yeast vaginitis inactive October 12:44pm Advanced maternal age (AMA) in deleted October 15, 2024 12:44pm Abdominal pain acute November 07, 2 025 9:28am Gestational hypertension acute November 07, 2024 9:28am Hemorrhoids acute November 07, 2024 9:28am History of miscarriage, currently acute November 07, 2024 9:28am Hx of pre-eclampsia in prior , currently acute Ma y 2024 9:28am Hx of twin in prio [...] Chronic anemia chronic November 07, 025 9:28am Advanced maternal age [...] pre-eclampsia in prior , currently acute 2024 2:52pm Hx of twin in prio r acute January 03, 2025 2:52pm Inclusion cyst of vulva acute [facility] 2024 2:52pm Lymphocytic colitis acute January 03, [...] pre-eclampsia in prior , currently acute 2024 10:41am Hx of twin in prio [...] Chronic anemia chronic January 13, 2025 10:41am Abdominal pain acute January 29, 2025 9:53am Abnormal glucose affecting acute January 29, 2025 9:53am Advanced maternal age in multigravida acute January 29, 2025 9:53am Gestational hypertension acute January 29, 2025 9:53am Hemorrhoids acute January 29 9:53am History of miscarriage, currently acute January 29 9:53am Hx of pre-eclampsia in prior , currently acute Ju ly 2024 9:53am Hx of twin in prio r acute January 29, 2025 9:53am Inclusion cyst of vulva acute J 2024 9:53am Lymphocytic colitis acute January 29, 2025 9:53am Obesity affecting acute January 29, 2025 9:53am Pelvic floor weakness in female acut e January 29, 2025 9:53am Perianal candidiasis acute January 29, 2025 9:53am acute January 29 9:53am Rectal pain acute January 29 9:53am Short interval between pregnancies affecting in first trimester, acute January 29, 2 025 9:53am Supervision of high-risk acute January 29, 2025 9:53am Chronic anemia chronic January 29, 2025 9:53am [facility] Work Phone: 1(242) 802-100403-04-2025 Evaluation note* Diagnosis Onset Date Resolution Status Admit Date Abdominal pain acute September 10, 2024 2:47pm Advanced maternal age (AMA) in acute September 10, 2024 2:47pm Gestational hypertension acute September 10, 2024 2:47pm Hemorrhoids acute September 10 2:47pm History of miscarriage, currently acute September 10 2:47pm Hx of pre-eclampsia in prior , currently acute [facility] 2024 2:47pm Hx of twin in prio r acute September 10, 2024 2:47pm Inclusion cyst of vulva acute M 2024 2:47pm Lymphocytic colitis acute September 10, 2024 2:47pm Obesity affecting acute September 10, 2024 2:47pm Pelvic floor weakness in female acut e September 10, 2024 2:47pm Perianal candidiasis acute Saúl h 2024 2:47pm acute September 10 2:47pm Rectal pain acute September 10 2:47pm Short interval between pregnancies affecting in first trimester, acute September 10 2:47pm Supervision of high-risk acute September 10, 2024 2:47pm Chronic anemia chronic September 10, 2024 2:47pm Abdominal pain acute September 1:53pm Advanced maternal age (AMA) in acute October 07, 2024 1:53pm Gestational hypertension acute October 07, 2024 1:53pm Hemorrhoids acute October 07 025 1:53pm History of miscarriage, currently acute October 07 025 1:53pm Hx of pre-eclampsia in prior , currently acute [facility] 2024 1:53pm Hx of twin in prio r acute October 07, 2024 1:53pm Inclusion cyst of vulva acute arch 2024 1:53pm Lymphocytic colitis acute October [...] pregnancies affecting in first trimester, acute October 15 12:44pm Supervision of high-risk acute October 15, 2024 12:44pm Chronic anemia chronic October 15, 2024 12:44pm Pelvic cramping inactive October 12:44pm Vaginal bleeding in inacti ve October 15, 2024 12:44pm Yeast vaginitis inactive October 12:44pm Abdominal pain acute November 07 9:28am Advanced maternal age (AMA) in acute November 07, 2024 9: 28am Gestational hypertension acute November 07, 2024 9:28am Hemorrhoids acute November 07, 2024 9:28am History of miscarriage, currently acute November 07, 2024 9:28am Hx of pre-eclampsia in prior , currently acute Ma y 2024 9:28am Hx of twin in prio [...] 9: 28am Chronic anemia chronic November 07, 9:28am Abdominal pain acute December 04, 2024 [...] Chronic anemia chronic December 04, 2024 2:48pm [facility] Work Phone: 1(156) 807-454903-04-2025 Evaluation note* Diagnosis Onset Date Resolution Status [...] affecting in first trimester, acute September 10 2:47pm Supervision of high-risk acute September 10, 2024 2:47pm Chronic anemia chronic September 10, 2024 2:47pm Abdominal pain acute September 1:53pm Advanced maternal age (AMA) in acute October 07, 2024 1:53pm Gestational hypertension acute October 07, 2024 1:53pm Hemorrhoids acute October 07 1:53pm History of miscarriage, currently acute October 07 1:53pm Hx of pre-eclampsia in prior , currently acute [facility] 2024 1:53pm Hx of twin in prio [...] pregnancies affecting in first trimester, acute October 15 12:44pm Supervision of high-risk acute October 15, [...] prior , currently acute Ma y 2024 9:28am Hx of twin in prio [...] Chronic anemia chronic November 07 025 9:28am Abdominal pain acute December 04, [...] Chronic anemia chronic January 03, 2025 2:52pm [facility] Work Phone: 1(979) 642-219402-04-2025 Evaluation note* Diagnosis Onset Date Resolution Status Admit Date Abdominal pain acute August 132024 3:04pm Advanced maternal age (AMA) in acute August 13 3:04pm Gestational hypertension acute August 13, 2024 3:04pm Hemorrhoids acute August 13, 2024 3:04pm History of miscarriage, currently acute August 13, 2024 3:04pm Hx of pre-eclampsia in prior , currently acute 2024 3:04pm Hx of twin in prio r acute August 13 3:04pm Inclusion cyst of vulva acute 2024 3:04pm Lymphocytic colitis acute 2024 3:04pm Obesity affecting acute August 13, [...] Advanced maternal age (AMA) in acute August 26 025 12:46pm Gestational hypertension acute August 26, 2024 12:46pm Hemorrhoids acute August 12:46pm History of miscarriage, currently acute August 12:46pm Hx of pre-eclampsia in prior , currently acute 2024 12:46pm Hx of twin in prio r acute August 26 025 12:46pm Inclusion cyst of vulva acute ebruary 2024 12:46pm Lymphocytic colitis acute Febru david 2024 12:46pm Obesity affecting acute August 26, 2024 12:46pm Pelvic floor weakness in female acute August 26 025 12:46pm Perianal candidiasis acute ry 2024 12:46pm acute August 26, 2024 12:46pm Rectal pain acute August 12:46pm Short interval between pregnancies affecting in first trimester, acute Fe bruary 2024 12:46pm Supervision of high-risk acute August 26, 2 025 12:46pm Chronic anemia chronic August 102024 12:46pm Abdominal pain acute September 10, 2024 2:47pm Advanced maternal age (AMA) in acute September 10, 2024 2:47pm Gestational hypertension acute September 10, 2024 2:47pm Hemorrhoids acute September 10 2:47pm History of miscarriage, currently acute September 10 2:47pm Hx of pre-eclampsia in prior , currently acute [facility] 2024 2:47pm Hx of twin in prio r acute September 10, 2024 2:47pm Inclusion cyst of vulva acute [facility] 2024 2:47pm Lymphocytic colitis acute September 10, 2024 2:47pm Obesity affecting acute September 10, 2024 2:47pm Pelvic floor weakness in female acute September 10, 2024 2:47pm Perianal candidiasis acute [facility] 2024 2:47pm acute September 10 2:47pm Rectal pain acute September 10 2:47pm Short interval between pregnancies affecting in first trimester, acute [facility] 2024 2:47pm Supervision of high-risk acute September 10, 2024 2:47pm Chronic anemia chronic September 10, 2024 2:47pm Abdominal pain acute September 1:53pm Advanced maternal age (AMA) in acute October 07, 2024 1:53pm Gestational hypertension acute October 07, 2024 1:53pm Hemorrhoids acute October 07, 2 025 1:53pm History of miscarriage, currently acute October 07 2 025 1:53pm Hx of pre-eclampsia in prior , currently acute [facility] 2024 1:53pm Hx of twin in prio [...] pregnancies affecting in first trimester, acute Ma rch 2024 1:53pm Supervision of high-risk acute October [...] October 12:44pm Abdominal pain acute November 07, 2 025 9:28am Advanced maternal age (AMA) in acute November 07, 2024 9: 28am Gestational hypertension acute November 07, 2024 9:28am Hemorrhoids acute November 07, 2024 9:28am History of miscarriage, currently acute November 07, 2024 9:28am Hx of pre-eclampsia in prior , currently acute Ma y 2024 9:28am Hx of twin in prio [...] pre-eclampsia in prior , currently acute 2024 2:48pm Hx of twin in prio [...] Chronic anemia chronic December 04, 2024 2:48pm [facility] Work Phone: 1(392) 869-731012-16-2024 Evaluation note* Diagnosis Onset Date Resolution Status [...] pre-eclampsia in prior , currently acute 2024 3:04pm Hx of twin in prio r acute August 13 3:04pm Inclusion cyst of vulva acute 2024 3:04pm Lymphocytic colitis acute 2024 3:04pm Obesity affecting acute August 13, [...] Advanced maternal age (AMA) in acute August 26 025 12:46pm Gestational hypertension acute August 26, 2024 12:46pm Hemorrhoids acute August 12:46pm History of miscarriage, currently acute August 12:46pm Hx of pre-eclampsia in prior , currently acute 2024 12:46pm Hx of twin in prio r acute August 26 025 12:46pm Inclusion cyst of vulva acute F ebruary 2024 12:46pm Lymphocytic colitis acute Febru david 2024 12:46pm Obesity affecting acute August 26, 2024 12:46pm Pelvic floor weakness in female acute August 26 2 025 12:46pm Perianal candidiasis acute Febr uary 2024 12:46pm acute August 26, 2024 12:46pm Rectal pain acute August 12:46pm Short interval between pregnancies affecting in first trimester, acute Fe bruary 2024 12:46pm Supervision of high-risk acute August 26 025 12:46pm Chronic anemia chronic August 102024 12:46pm Abdominal pain acute September 10, 2024 2:47pm Advanced maternal age (AMA) in acute September 10, 2024 2:47pm Gestational hypertension acute September 10, 2024 2:47pm Hemorrhoids acute September 10 2:47pm History of miscarriage, currently acute September 10 2:47pm Hx of pre-eclampsia in prior , currently acute [facility] 2024 2:47pm Hx of twin in prio r acute September 10, 2024 2:47pm Inclusion cyst of vulva acute [facility] 2024 2:47pm Lymphocytic colitis acute September 10, 2024 2:47pm Obesity affecting acute September 10, 2024 2:47pm Pelvic floor weakness in female acute September 10, 2024 2:47pm Perianal candidiasis acute Saúl h 2024 2:47pm acute September 10 2:47pm Rectal pain acute September 10 2:47pm Short interval between pregnancies affecting in first trimester, acute [facility] 2024 2:47pm Supervision of high-risk acute September 10, 2024 2:47pm Chronic anemia chronic September 10, 2024 2:47pm [facility] Work Phone: 1(590) 126-968012-16-2024 Evaluation note* Diagnosis Onset Date Resolution Status Admit Date Hemorrhoids acute June 9:16am Perianal candidiasis acute Dece mber 2023 9:16am Rectal pain acute June 9:16am Vaginal discharge resolved Decembe r 2023 12:47pm Abdominal pain acute June 112023 3:23pm Hemorrhoids acute June 3:23pm Lymphocytic colitis acute Decem linwood 2024 3:23pm Rectal pain acute June 3:23pm Constipation deleted June 3:23pm Abdominal pain acute August 132024 3:04pm Advanced maternal age (AMA) in acute August 13 3:04pm Gestational hypertension acute August 13, 2024 3:04pm Hemorrhoids acute August 13, 2024 3:04pm History of miscarriage, currently acute August 13, 2024 3:04pm Hx of pre-eclampsia in prior , currently acute 2024 3:04pm Hx of twin in prio r acute August 13 3:04pm Inclusion cyst of vulva acute 2024 3:04pm Lymphocytic colitis acute Febru 2024 3:04pm Obesity affecting acute August 13, [...] Advanced maternal age (AMA) in acute August 26 025 12:46pm Gestational hypertension acute August 26, 2024 12:46pm Hemorrhoids acute August 12:46pm History of miscarriage, currently acute August 12:46pm Hx of pre-eclampsia in prior , currently acute ary 2024 12:46pm Hx of twin in prio r acute August 26 2 025 12:46pm Inclusion cyst of vulva acute ebruary 2024 12:46pm Lymphocytic colitis acute Febru david2024 12:46pm Obesity affecting acute August 26, 2024 12:46pm Pelvic floor weakness in female acute August 26 2 025 12:46pm Perianal candidiasis acute ry 2024 12:46pm acute August 26, 2024 12:46pm Rectal pain acute August 12:46pm Short interval between pregnancies affecting in first trimester, acute Fe bruary 2024 12:46pm Supervision of high-risk acute August 26 025 12:46pm Chronic anemia chronic August 102024 12:46pm Abdominal pain acute September 10, 2024 2:47pm Advanced maternal age (AMA) in acute September 10, 2024 2:47pm Gestational hypertension acute September 10, 2024 2:47pm Hemorrhoids acute September 10 2:47pm History of miscarriage, currently acute September 10 2:47pm Hx of pre-eclampsia in prior , currently acute [facility] 2024 2:47pm Hx of twin in prio r acute September 10, 2024 2:47pm Inclusion cyst of vulva acute 2024 2:47pm Lymphocytic colitis acute September 10, 2024 2:47pm Obesity affecting acute September 10, 2024 2:47pm Pelvic floor weakness in female acute September 10, 2024 2:47pm Perianal candidiasis acute Saúl 2024 2:47pm acute September 10 2:47pm Rectal pain acute September 10 2:47pm Short interval between pregnancies affecting in first trimester, acute [facility] 2024 2:47pm Supervision of high-risk acute September 10, 2024 2:47pm Chronic anemia chronic September 10, 2024 2:47pm Abdominal pain acute September 1:53pm Advanced maternal age (AMA) in acute October 07, 2024 1:53pm Gestational hypertension acute October 07, 2024 1:53pm Hemorrhoids acute October 07, 2 025 1:53pm History of miscarriage, currently acute October 07 025 1:53pm Hx of pre-eclampsia in prior , currently acute [facility] 2024 1:53pm Hx of twin in prio r acute October 07, 2024 1:53pm Inclusion cyst of vulva acute M arch 2024 1:53pm Lymphocytic colitis acute October 07, 2024 1:53pm Obesity affecting acute October 07, 2024 1:53pm Pelvic floor weakness in female acute October 07, 2024 1:53pm Perianal candidiasis acute Saúl h 2024 1:53pm acute October 07 1:53pm Rectal pain acute October 07, 1:53pm Short interval between pregnancies affecting in first trimester, acute Ma rch 2024 1:53pm Supervision of high-risk acute October [...] Chronic anemia chronic October 15, 2024 12:44pm [facility] Work Phone: 1(268) 561-277712-03-2024 [facility]11-03-2023 NoteHNO ID: [id number] Author: Kelly Calabrese PA-C Service: ? Author Type: Physician Financial Institution Vice President Type: Progress Notes Filed: 05/12/2023 2:41 PM Note Text: Kelly Calabrese PA-C Department of Orthopaedics Orthopaedics [address] [address] Dept: [phone] May 12, 2023 SUBJECTIVE: CHIEF COMPLAINT: Established [...] acute abnormality. Full imaging report available in [facility]. ASSESSMENT: S86.812A Strain of calf muscle, left, initial encounter (primary encounter diagnosis) PLAN: Reviewed images taken today. Recommendation for calf strain is physical therapy and activity modification as needed. Patient agreeable with plan and will follow up in 8 weeks. FOLLOW UP INSTRUCTIONS: 8 weeks [facility]11-03-2023 NoteHNO ID: [id number] Author: Rhonda Hackett Tech Service: ? Author Type: Lead Pony Rider Type: Progress Notes Filed: 05/12/2023 12:33 PM [...] BY: Maggy Lim May 12, 2023 12:32 PMWilson Memorial [id number] History of Present illness Narrative* Kelly Calabrese PA-C - 05/12/2023 10:51 AM EDT Kelly Calabrese PA-C Department of Orthopaedics Orthopaedics [address] [place] [address] Dept: [phone] May 12, 2023 SUBJECTIVE: CHIEF COMPLAINT: Established [...] HERNIA,REDUC 2020 TONSILLECTOMY & ADENOIDECTOMY <AGE 10 2016 Family History: FAMILY HISTORY Problem Relation Age [...] acute abnormality. Full imaging report available in [facility]. ASSESSMENT: S86.812A Strain of calf muscle, left, initial encounter (primary encounter diagnosis) PLAN: Reviewed images taken today. Recommendation for calf strain is physical therapy and activity modification as needed. Patient agreeable with plan and will follow up in 8 weeks. FOLLOW UP INSTRUCTIONS: 8 weeks Kelly Calabrese PA-C documented in this encounterDayton [facility]11-[facility]-2023 History of Present illness Narrative* Rhonda [...] 12, 2023 12:32 PM documented in this encounterDayton Osteopathic Hospital08-25-2023 NotePap Smear Specimen AdequacyAugus2022 11:39amComment.Satisfactory for evaluation. Endocervical and/or squamous metaplasticcells (endocervical component)are present.[facility] A#[id number] [facility] Medical CenterComment on above: Satisfactory for evaluation. Endocervical and/or squamous metaplasticcells (endocervical component)are present.03-03-2023 NotePap Smear Specimen Adequacy March 03, 2023 10:39amComment.Satisfactory for evaluation. Endocervical and/or squamous metaplasticcells (endocervical component)are present.[facility] INTER[facility] A#[id number] Fayette Medical CenterComment on above:Satisfactory for evaluation. Endocervical and/or squamous metaplasticcells (endocervical component)are present.03-01-2023 NoteHNO ID: [id number] Author: Cathryn Morrell, DO Service: ? Author [...] answered. Follow up prn Cathryn Morrell D.O. M.P.H.[facility]08-23-2023 NoteHNO ID: [id number] Author: Sydni Ring RT(R) Service: Radiology Author Type: Technologist Type: Progress [...] BY: RT Aries(R) March 01, 2023 9:50 AMWilson Memorial [id number] History of Present illness Narrative* Sydni Ring [...] BY: RT Aries(Brian) March 01, 2023 9:50 AM documented in this encounterDayton Osteopathic Hospital06-21-2023 NoteHNO ID: [id number] Author: Cathryn Morrell, DO Service: ? Author [...] plan. All questions answered. Cathryn Morrell D.O., M.P.H.[facility]06-21-2023 History of Present illness Narrative* Cathryn Morrell, DO - 12/28/2022 10:01 AM EDT Images [...] agreement of plan. All questions answered. Cathryn Milner.Hazel. M.P.H. documented in this encounterDayton Osteopathic Hospital06-01-[address] Pelayo [facility] December 08, 2022 1:33pm Note Date/Time December 08, 2022 9:03a [facility] Medical Records Department [address] [place] [address] Emergency Department Summary 12/08/22 MR#: [id number] Acct: [id number] Name: MANDI VALENTE Rep #:[id number] 21 : 1990 32 From: Santi Pelayo MD PCP: Dr. Cholo Smith DO Status:REG ER Location: ED HPI History [...] immune issues. No trouble swallowing. No headache. [facility] Medical History Allergic dermatitis Anal fissure Chronic [...] for 4 days (days 2-5) PO vitamin R41-ydfqv acid 1-0.8 mg Tablet 1 tab PO DAILY Primary Care Provider: Cholo Smith Referrals: Cholo Smith DO [Primary Care Provider] - 2 Days for wound check Disposition Disposition: Home, Self Care What to do if you have Problems For any increased pain, shortness of breath, bleeding, nausea or vomiting, chestpain, or any unexpected problems, contact your Primary Care Provider. Call [facility] ([phone]) or report to the closest Emergency Room. Call 911 if necessary. 12/08/22 1333 <Electronically signed by Santi Pelayo MD> Cosigner Signature (if applicable): CC: Dr. Cholo Smith DO ~ Signed [facility] Work Phone: 1(316) 347-853405-15-2023 NoteHNO ID: [id number] Author: Pierre Hicks PA-C Service: ? Author Type: Physician Financial Institution Vice President Type: Progress Notes Filed: 11/21/2022 10:28 AM [...] Follow up in 4 weeks with [facility]05-03-2023 Miscellaneous Notes* Telephone Encounter - Rhonda Sow [...] verbalized understanding. * Telephone Encounter - Avery Jia - 11/09/2022 1:54 PM EDT Patient had surgery yesterday, November 08, 2022 Currently scheduled for her first post op on November She is requesting to see Dr. Morrell for the post op appointment Please advise If you have questions, patient can be reached at [phone] documented in this encounterDayton Osteopathic Hospital05-02-2023 NoteHNO ID: [id number] Author: Xochitl Conti APRN.CRNA Service: Anesthesiology Author Type: Nurse Core Cutter And Reamer Type: Anesthesia Procedure Notes Filed: 11/08/2022 11:43 AM Note Text: ANESTHESIOLOGY PROCEDURE NOTE Airway General Information Procedure Start Time/Medication Administration: 11/08/2022 11:18 AM Patient location during procedure: OR Timeout Performed Pre-procedure: timeout performed Consent Obtained: Yes 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 Author Type: Physician Type: [...] of Motion Extension: normal Flexion: normal Tests Iheu: Anterior - negative Posterior - negative Drawer: [...] treatment were discussed with (more content not included)...[facility]04-26-2023 History of Present illness Narrative* Cathryn Morrell, [...] consent for surgical intervention. documented in this encounterDayton [facility]04-[facility]23 History and physical note * Stefany De La Torre PA-C - 10/28/2022 11:20 AM EDT HISTORY AND PHYSICAL EXAMINATION SERVICE DATE: 10/28/2022 SERVICE TIME: 11:37 AM PRIMARY CARE PHYSICIAN: J Luis Nino (Historic) Macarioazkamron REASON FOR VISIT: Mandi Valente is a [...] HERNIA,REDUC 2020 TONSILLECTOMY & ADENOIDECTOMY <AGE 10 2016 FAMILY HISTORY Problem Relation Age of Onset [...] fevers. Neuro: No history of TIA's, stroke, HOPS FARMWORKER tumor, impaired sensorium, hemiplegia, paraplegia or quadraplegia. No neurological symptoms or problems. Respiratory: No history of current cough or dyspnea, or pneumonia in the past 6 weeks. No history of respiratory/pulmonary symptoms or problems. Cardiovascular: No history of HTN requiring medication, no history of angina, CHF, DE, cardiac surgery or stents. Denies rest pain, gangrene or revascularization/amputation for PVD. No history of cardiovascular symptoms or problems. GI: No history of GI symptoms or problems. No history of esophageal varices, recent ascites, or ETOH greater than 2 drinks per day. : No history of dysuria, frequency or incontinence,, stones or chronic kidney disease CLUB FORMER: Negative for abnormal vaginal bleeding, abnormal vaginal [...] 2022 TIME: 8:32 AM documented in this encounterDayton [facility]04-21-2023 Instructions* Patient Instructions* Stefany De La Torre PA-C - 10/28/2022 8:33 AM EDT PATIENT PREOPERATIVE INSTRUCTIONS Cathryn Morrell,* has scheduled you for your procedure at this surgery center: [facility]: [phone] -- [address] [address]. Please read below carefully for your personalized [...] Procedures: - YOU MUST HAVE A RESPONSIBLE PLANT EQUIPMENT ENGINEER TAKE YOU HOME. A MECHANICAL COMMISSIONING ENGINEER OR SERVICE LIAISON REPRESENTATIVE CANNOT BE MADE A RESPONSIBLE PLANT EQUIPMENT ENGINEER. - We recommend that a responsible person [...] Advance Directive, please fax a copy to [phone] or email to for it to be [...] De La Torre PA-C documented in this encounterDayton Osteopathic Hospital03-27-2023 Discharge summary Author Hodan Ling [facility] October 03, 2022 7:20am Note Date/Time October 03, 2022 7:2 0am [facility] Physical Therapy [facility] [address] [place] [address] / REHABILITATION SERVICES DISCHARGE SUMMARY MR#: [id number] Acct: [id number] Name: MANDI VALENTE Rep #: [id number] : 1990 31 From: Hodan Mendoza Referring Dr.: Dr. Cathryn Morrell DO S [...] please feel free to call me at [phone]. Thank you for the referral of thispatient. Sincerely, Hodan Ling, DPT Balance/Gait/Functional tests - Balance/Special Test Scores Lower Extremity Functional Score: 61 <Electronically signed by Hodan Ling DPT> 10/03/22 0720 CC: Dr. Cathryn Morrell, DO; Dr. Cholo Smith, DO ~ ELR Signed [facility] Work Phone: [phone]) 569-878503-10-2023 NoteHNO ID: [id number] Author: Cathryn Morrell DO Service: ? Author Type: Physician Type: Progress Notes Filed: 09/27/2022 2:02 PM Note Text: VIRTUAL VISIT PROGRESS NOTE This is a virtual visit using [employer] video visit. It required patient-provider interaction for [...] Signed: Mateo Aldana, at 10:11 EST , [facility] images PLAN: There are no Patient Instructions on file for this visit. I spent a total of 20 minutes on the date of the service which included preparing to see the patient, [id number] patient care, completing clinical documentation, obtaining and/or [...] visit. Either the patient or their legal senior customer service representative has been informed of the risks and benefits of -- and alternatives to -- treatment through a remote evaluation and consents to proceed with the evaluation shazia (more content not included)...[facility]03-06-2023 Miscellaneous Notes* Telephone Encounter - Brionna Mendez - 09/12/2022 1:59 PM EST Patient is scheduled. documented in this encounterDayton Oste[facility] Hospital02-09-2023 NoteHNO ID: [id number] Author: Cathryn Morrell DO Service: ? Author [...] post surgery and injection [facility] History of Present illness Narrative* Cathryn Morrell, [...] Follow up after mri documented in this encounterDayton Osteopathic Hospital12-28-2022 NoteHNO ID: [id number] Author: Cathryn Morrell DO Service: ? Author Type: Physician Type: Progress Notes Filed: 07/06/2022 2:47 PM Note Text: Large Joint Arthro/Inj: R greater trochanteric bursa Informed Consent Consent Obtained: Verbal [place] Protocol A moment to CARE was completed. [...] Description: Burning;Throbbing;Radiating Frequency: Continuous Intervention/Comfort measure: Medication;Exercise RORY morelos Comments: PT currently HPI: Mandi Valente is [...] Erythema: absent Sensation: norm (more content not included)...[facility] 07-06-2022 NoteHNO ID: [id number] Author: ALBA Hoskins Service: Radiology Author Type: [...] BY: ALBA Hoskins July 06, 2022 3:13 PMWilson [facility] [id number] History of Present illness Narrative* Cathryn Morrell, - 07/06/2022 12:53 PM ESTAssociated Order(s): Large Joint Arthro/Inj: R greater trochanteric bursa Post-Procedure Diagnose(s): Trochanteric bursitis of right hip; Iliotibial band syndrome of right side Images from the original note were not included. Large Joint Arthro/Inj: R greater trochanteric bursa Informed Consent Consent Obtained: Verbal [place] Protocol A moment to CARE was completed. [...] Description: Burning;Throbbing;Radiating Frequency: Continuous Intervention/Comfort measure: Medication;Exercise mobgordo, RORY Comments: PT currently HPI: Mandi Valente is [...] plan. All questions answered. documented in this encounterDayton Osteopathic Hospital12-28-2022 History of Present illness Narrative* Nida [...] 06, 2022 3:13 PM documented in this encounterDayton Osteopathic Hospital10-13-2022 History of Present illness Narrative* Cathryn Morrell, - 04/21/2022 11:32 AM EDT Follow Up [...] side d/t throbbing/burning pain. documented in this encounterDayton Osteopathic Hospital08-31-2022 History of Present illness Narrative* Cathryn Morrell, - 03/09/2022 10:44 AM EDT Images from [...] plan. All questions answered. documented in this encounterDayton Osteopathic Hospital08-22-2022 History of Present illness Narrative* Nena Rees RDMS - 02/28/2022 1:45 PM EDT Radiology Service [...] 28, 2022 2:50 PM documented in this encounterDayton Osteopathic Hospital08-22-2022 Miscellaneous Notes* Telephone Encounter - Christy Marion - 02/28/2022 1:17 PM EDT Patient has been scheduled by LAURA BENTON [[id number]] * Telephone Encounter - Christy Marion - 02/28/2022 12:10 PM EDT Called patient to schedule DVT Ultrasound, patient wanted to try aldo, we cannot schedule for them so I have her the number to call to schedule. Patient will call back if she cannot get scheduled there, to get scheduled in [place]. documented in this encounterDayton Osteopathic Hospital08-16-2022 History of Past illness Narrative* Problem Noted Date Resolved Date Trochanteric bursitis of right hip 02/22/2022 02/22/2022 It band syndrome, unspecified laterality 022 02/22/2022 documented as of this encounter (statuses as of 02/28/2022) [facility] History of Past illness Narrative* Problem Noted Date Resolved Date Trochanteric bursitis of right hip 02/22/2022 02/22/2022 It band syndrome, unspecified laterality 022 02/22/2022 documented as of this encounter (statuses as of 03/01/2022) [facility] History of Past illness Narrative* Problem Noted Date Resolved Date Trochanteric bursitis of right hip 02/22/2022 02/22/2022 It band syndrome, unspecified laterality 022 02/22/2022 documented as of this encounter (statuses as of 03/09/2022) [facility] of Past illness Narrative* Problem Noted Date Resolved Date Trochanteric bursitis of right hip 02/22/2022 02/22/2022 It band syndrome, unspecified laterality 022 02/22/2022 documented as of this encounter (statuses as of 04/21/2022) [facility] of Past illness Narrative* Problem Noted Date Resolved Date Trochanteric bursitis of right hip 02/22/2022 02/22/2022 It band syndrome, unspecified laterality 022 02/22/2022 documented as of this encounter (statuses as of 07/13/2022) [facility] of Past illness Narrative* Problem Noted Date Resolved Date Trochanteric bursitis of right hip 02/22/2022 02/22/2022 It band syndrome, unspecified laterality 022 02/22/2022 documented as of this encounter (statuses as of 07/13/2022) [facility] of Past illness Narrative* Problem Noted Date Resolved Date Trochanteric bursitis of right hip 02/22/2022 02/22/2022 It band syndrome, unspecified laterality 022 02/22/2022 documented as of this encounter (statuses as of 08/18/2022) [address]16-2022 History of Past illness Narrative* Problem Noted Date Resolved Date Trochanteric bursitis of right hip 02/22/2022 02/22/2022 It band syndrome, unspecified laterality 022 02/22/2022 documented as of this encounter (statuses as of 09/12/2022) [address]16-2022 History of Past illness Narrative* Problem Noted Date Resolved Date Trochanteric bursitis of right hip 02/22/2022 02/22/2022 It band syndrome, unspecified laterality 022 02/22/2022 documented as of this encounter (statuses as of 09/26/2022) [address]16-2022 History of Past illness Narrative* Problem Noted Date Resolved Date Trochanteric bursitis of right hip 02/22/2022 02/22/2022 It band syndrome, unspecified laterality 022 02/22/2022 documented as of this encounter (statuses as of 10/31/2022) [facility] of Past illness Narrative* Problem Noted Date Resolved Date Trochanteric bursitis of right hip 02/22/2022 02/22/2022 It band syndrome, unspecified laterality 022 02/22/2022 documented as of this encounter (statuses as of 11/08/2022) [facility] of Past illness Narrative* Problem Noted Date Resolved Date Trochanteric bursitis of right hip 02/22/2022 02/22/2022 It band syndrome, unspecified laterality 022 02/22/2022 documented as of this encounter (statuses as of 12/23/2022) [address]16-2022 History of Past illness Narrative* Problem Noted Date Resolved Date Trochanteric bursitis of right hip 02/22/2022 02/22/2022 It band syndrome, unspecified laterality 022 02/22/2022 documented as of this encounter (statuses as of 12/28/2022) [address]16-2022 History of Past illness Narrative* Problem Noted Date Diagnosed Date Resolved Date Trochanteric bursitis of right hip 02/22/2022 02/22/2022 It band syndrome, unspecified laterality 02/07/2022 02/22/2022 documented as of this encounter (statuses as of 05/13/2023) [facility] Miscellaneous Notes* Telephone Encounter - Brionna Mendez - 01/28/2022 3:11 PM EDT Patient had MRI done 12/08/21. * Telephone Encounter - Jessica Contreras - 01/28/2022 11:38 AM EDT Please contact the patient to schedule an mri prior to her surgery date of 02/22/22. documented in this encounterDayton Osteopathic Hospital07-15-2022 History of Present illness Narrative* Cathryn Morrell, - 01/21/2022 9:35 AM EDT Images from [...] films and my findings are the same. [facility] Imaging Services [address] [place] [address] Lower Ext Joint Only (Routine) MR#: [id number] Acct: [id number] Name: MANDI VALENTE Willian Rep #: [id number] : 1990 F 31 From: Mateo Aldana MD PCP: Dr. Cholo Smith, DO Status: REG CLI Study: Lower Ext Joint Only (Routine) Date of Exam: 0 12/31/21 Exam# [id number] Ordering Dr: Cathryn Morrell STUDY: MRI RIGHT [...] consent for surgical intervention. documented in this encounterDayton Osteopathic Hospital06-08-2022 Miscellaneous Notes* Telephone Encounter - Brionna Mendez - 12/15/2021 1:50 PM EDT I called and spoke with patient, she wants to call her insurance to see if she met her deductible because she works at [employer] and gets a discount there, vs getting the MRI done at a [facility] facility. * Telephone Encounter - Jessica Contreras - 12/15/2021 10:40 AM EDT Please contact the patient to have her mri scheduled with [facility]. Looks like she may have it scheduled at [facility]. It would benefit her to have it here more so the results and images are readily available for the surgeon yet it is still in her area. documented in this encounterDayton Osteopathic Hospital06-01-2022 History of Present illness Narrative* Cathryn Morrell DO - 12/08/2021 3:23 PM EDT Images [...] treatment plan as discussed. documented in this encounterDayton Osteopathic Hospital06-01-2022 Miscellaneous Notes* Allied Health - RT [...] 08, 2021 3:18 PM documented in this encounterDayton Osteopathic HospitalChi complaint+Reason for visit Narrative* Chief Complaint COVID-19 MASTODYNIA Rash COVERING BODY Rash TROCHANTERIC BURSITIS RIGHT HIP/RX HERE TROCHANTERIC BURSITIS OF RIGHT HIP Reason for Visit Allergic dermatitis Rash [facility] Work Phone: Evaluation note* Diagnosis Hip pain- Primary Pain in joint, pelvic region and thigh Pain in hip Pain in joint, pelvic region and thigh Trochanteric bursitis of right hip Enthesopathy of hip region Iliotibial band syndrome of right side Other disorder of muscle, ligament, and fascia documented in this encounter [facility] note* Diagnosis Pain Generalized pain documented [facility] this encounter [facility]* Diagnosis Onset Date Resolution Status Constipation acute Lymphocytic colitis acute Trochanteric bursitis of right hip acute Back pain noneactive Trochanteric bursitis of right hip acute [facility] Work Phone: Evaluation note* Diagnosis Iliotibial band syndrome of right side- Primary Other disorder of muscle, ligament, and fascia Pain in hip Pain in joint, pelvic region and thigh Trochanteric bursitis of right hip Enthesopathy of hip region documented in this encounter [facility]* Diagnosis Right calf pain documented in this encounter [facility]* Diagnosis Trochanteric bursitis of right hip- Primary Enthesopathy of hip region Iliotibial band syndrome of right side Other disorder of muscle, ligament, and fascia documented in this encounter [facility]* Diagnosis Trochanteric bursitis of right hip- Primary Enthesopathy of hip region Iliotibial band syndrome of right side Other disorder of muscle, ligament, and fascia documented in this encounter [facility]* Diagnosis Trochanteric bursitis of right hip- Primary Enthesopathy of hip region Iliotibial band syndrome of right side Other disorder of muscle, ligament, and fascia [facility] Diagnosis Trochanteric bursitis of right hip- Primary Enthesopathy of hip region [facility]* Diagnosis Onset Date Resolution Status Allergic dermatitis acute Rash noneactive [facility] Work Phone: Evaluation note* Diagnosis Trochanteric bursitis of right hip- Primary Enthesopathy of hip region Iliotibial band syndrome of right side Other disorder of muscle, ligament, and fascia Trochanteric bursitis of right hip Enthesopathy of hip region Iliotibial band syndrome of right side Other disorder of muscle, ligament, and fascia documented [facility] this [facility]* Diagnosis Preop examination- Primary Preoperative examination, unspecified Trochanteric bursitis of right hip Enthesopathy of hip region Iliotibial band syndrome of right side Other disorder of muscle, ligament, and fascia documented [facility] this [facility]* Diagnosis Trochanteric bursitis of right hip- Primary Enthesopathy of hip region Iliotibial band syndrome of right side Other disorder of muscle, ligament, and fascia documented [facility] this [facility]* Diagnosis Onset Date Resolution Status URI (upper respiratory infection) acute [facility] Work Phone: Evaluation note* Diagnosis S/P orthopedic surgery, follow-up exam- Primary Follow-up examination, following other surgery Trochanteric bursitis of right hip Enthesopathy of hip region Iliotibial band syndrome of right side Other disorder of muscle, ligament, and fascia documented in this encounter [facility]* Diagnosis Onset Date Resolution Status Acute bacterial sinusitis ac [facility] Work Phone: Evaluation note* Diagnosis Strain of calf muscle, left, initial encounter- Primary documented in this encounter [facility]* Diagnosis Onset Date Resolution Status Acute bacterial sinusitis ac [place] acute [facility] Work Phone: Evaluation note* Diagnosis Onset Date Resolution Status AMA (advanced maternal age) multigravida 35+ acute External hemorrhoids acute History of miscarriage, currently acute Hx of pre-eclampsia in prior , currently acute Lower GI bleeding acute Lymphocytic colitis acute acute Supervision of high-risk acute Tilted uterus acute Chronic constipation chronic [facility] Work Phone: Evaluation note* Diagnosis Onset Date [...] colitis acute acute Supervision of high-risk acute [facility] Work Phone: Evaluation note* Diagnosis Pre-operative examination- Primary Preoperative examination, unspecified It band syndrome, unspecified laterality Class 1 obesity due to excess calories without serious comorbidity with body mass index (BMI) of 31.0 to 31.9 in adult Pain of left calf Pain in limb [facility] Pre-operative examination- Primary Preoperative examination, unspecified It band syndrome, unspecified laterality Class 1 obesity due to excess calories without serious comorbidity with body mass index (BMI) of 31.0 to 31.9 in adult Pain in left hip Pain in joint, pelvic region and thigh [facility] Diagnosis Pre-operative examination- Primary Preoperative examination, unspecified It band syndrome, unspecified laterality Class 1 obesity due to excess calories without serious comorbidity with body mass index (BMI) of 31.0 to 31.9 in adult Pain in right hip Pain in joint, pelvic region and thigh documented in this encounter [facility] Author Linda Hammond [facility] Note Date/Time February 07, 2025 2:3 7pm [facility] Medical Records Department [address] [place] [address] OB Triage Physician Note 02/07/25 1433 MR#: [id number] Acct: [id number] Name: MANDI VALENTE Rep #:[id number] : 1990 34 From: Linda Hammond CNM PCP: Dr. Cholo Smith, DO Status:REG CLI Y [facility] - General HPI Narrative MANDI VALENTE, is a 34 F who presents at 33.1 with contractions and headache this morning. headache greatly improved with tylenol and contractions upon arrival were already less intense and less frequent. no hx of PTL/PTB Maternal Data Information RAMSES Calculator Estimated Delivery Date Method Current WG Current Estimate 03/27/25 LMP (Certain) 33w 1d PFSH PFSH Medical History Seasonal allergies Hx of pre-eclampsia in prior , currently Superficial varicosities Pre-eclampsia Galactorrhea Allergic dermatitis Trochanteric bursitis of right hip Lymphocytic colitis Non-smoker History of steroid therapy Constipation Umbilical hernia Chronic constipation Dichorionic diamniotic twin gestation Anal fissure External hemorrhoids Home Medications ?Medication ?Instructions ?Recorded ?Last Taken ?Type multivitamin no.47-iron fum 27 1 cap PO DAILY pregnanc y 08/18/23 Unknown History mg-folate no.1 1 mg-dha 300 mg capsule (PNV-DHA) Diltiazem 2% / Lidocaine 5% #1 ea 06/24/24 Unknown Rx ointment (compound) polyethylene glycol 3350 17 4 g PO QDAY PRN 06/24/24 U nknown History gram/dose oral powder (Miralax) ferrous sulfate 325 mg (65 mg 325 mg PO Q OTHER DAY Unknown History iron) tablet folic acid 0.8 mg capsule 0.8 mg PO QDAY 08/06/24 Unkn own History famotidine 20 mg tablet (Pepcid) 20 mg PO BID 90 days #180 tabs 09/10/24 Unknown Rx hydroxyzine pamoate 25 mg capsule 25 mg PO QHS PRN itc marla #30 caps 01/03/25 Unknown Rx Allergy/AdvReac Type Severity Reaction Status Date / Time No Known Allergies Allergy Verified 02/07/25 13:44 Family History Mother Arthritis Hypertension Father Arthritis Hypertension CVA (cerebral vascular accident) Aunt Breast cancer Paternal Grandfather Heart disease Kidney disease Brother Hypertension Sister Hypertension Grandmother Breast cancer Paternal Diabetes Paternal Surgical History History of hip surgery Hx of umbilical hernia repair Hx of dilation and curettage History of hemorrhoidectomy (~05/2018) History of tonsillectomy Social History adopted: No household members: spouse and children number of children: 4 current occupational status: employed 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 Date Name GA/Weeks Outcome Route Bth Weight Gen Labor Lgth Anesthesia Del Locatn Provider FOB 04/05/18 Vinsen 41 live - full term 9#7oz Male 26 hrs epid ural [employer] Shey Pino 11/01/19 10 spontaneous 08/10/20 Lakisha 37 live - full term 5#14oz Female 10 HR epid ural [employer] Jenni Pino 08/10/20 Mccreary 37 live - full term 6#4oz Male 10 HR epid ural [facility] [facility] Jenni Pino 03/19/24 Elaine 39 live - full term 8lbs 2oz Female [facility] [facility] Dr. Gleason Delivery Date: 04/05/18 Last Updated by: Merna Bermeo IOL post dates Delivery Date: 11/01/19 Last Updated by: Merna Bermeo D&C, blighted Ovum Delivery Date: 08/10/20 Last Updated by: Mernasa Linda Bermeo IOL @ 37wks Twins, Gestational HTN/pre-e Delivery Date: 08/10/20 Last Updated by: Merna Bermeo IOL @ 37 weeks twins, gestational HTN, pre e Delivery Date: 03/19/24 Last Updated by: Lauren Osborn AMA, gestational hypertension Visit Details Expected Delivery Route/Plan Labor Preferences- CB/BF classes: [] labor support person: [] labor intervention preferences: [] pain management options preferred: [] cut cord/dad catch: [] : [] PP control planned: [] discussed possible routes of delivery and associated risks: [] special requests: [] Plans Covid status: [] Flu vaccine: [] Tdap vaccine: [] Rhogam: [] LARC form signed: [] Problem list reviewed and updated with the most current plan of care details and appropriate orders placed. Relevant counseling for the gestational age provided. Continue routine care and follow up unless otherwise noted in visit notes/problem list details OB Flowsheet Initial Weight: 196 lb Date -?-?-?-?-?-?-?-?-?-?-?-?- EGA [...] no vb/lof/ct x. cyst is bothersome again. [facility] US scheduled KW- no vb/lof/ctx. cyst is b othersome again discussed with SM. [facility] scheduled 10/15/24 -?-?-?-?-?-?-?-?-?-?-?-?- 16w 5d 200 lb [...] oz) 126/87 Negative -?-?-?-?-?-?-?-?-?-?-?-?- Negative 130 31 -?-?-?-?-?-?-?-?-?-?-?-?- KW- no vb/lof/ct x. good fm. has 3 hour glucose tomorrow. 01/29/25 -?-?-?-?-?-?-?-?-?-?-?-?- 31w 6d 217 lb 8 oz (+21 lb 8 oz) 129/78 Negative -?-?-?-?-?-?-?-?-?-?-?-?- Negative 146 32 -?-?-?-?-?-?-?-?-?-?-?-?- JV- still has a rash and twin humzas saw her and thought it was just related dermatitis. not pupps. larc done today. likely plan for 38 weekIOL due to gestational hypertension and sooner delivery if bp's are higher or if develops proteinuria. she still would like the vaginal cyst removed after delivery . also wants a tubal at 10 weeks so we can always do a little posterior repair and removal of the cyst at the time of the tubal. NST FHR Rate Baby A Baseline: 130 Variability:: Moderate Accelerations:: 15 x 15 Decelerations:: None NST Reactive:: Yes FHR Category:: Category I Uterine Activity:: irregular q4-12 Assessment & Plan (1) Contraction, [facility]: COMMENT: fingertip per nursing dilated with less intense/frequency in ctx. (2) Hx of pre-eclampsia in prior , currently : COMMENT: negative labs . bp stable in WP. headache resolved. PLAN: Plan Patient presents for triage evaluation secondary to contractions. FHT: Moderate variability reactive no decelerations category I tracing Adak: irregular Contractions Assessment and plan: Reactive NST, reassuring maternal and status patient discharged to home to follow-up in office.. See problem list details for additional plan information. Charges/Coding Procedures Urinary/Genital 52xxx-59xxx: [id number] non-stress test Interp 02/07/25 1437 <Electronically signed by Linda douglas CNM> Date _ Linda Garcia Signature (if applicable): Date CC: ERI Hammond; Dr. Cholo Smith, DO ~ Signed [facility] Work Phone: Progress note Author Lawson Parry [facility] Note Date/Time January 13, 2025 11:06 am [facility] [address], [address] [place] [address] OFFICE VISIT Date of Service: 01/13/25 MR#: [id number] Acct: [id number] Name: MANDI VALENTE Rep #: [id number] : 1990 Provider: ERI Parry Age/Sex: 34/F [place] [facility] [place]: Signed Intake Vital Signs 11/07/24 09:36 01/03/25 15:03 01/13/25 10:45 Height 5 ft 2 in 5 ft 2 in 5 ft 2 in Weight: 215 lb 8 oz BMI 39.4 BP 126/87 H Intake Visit Reasons: 30 wk ob Chief Complaint: 30wk ob Tram Inspector Required: No Is patient in pain?: No [...] 4 current occupational status: employed 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 Date Name GA/Weeks Outcome Route Bth Weight Gen Labor Lgth Anesthesia Del Locatn Provider FOB 04/05/18 Vinsen 41 live - full term 9#7oz Male 26 hrs epid ural [facility] Shey Madsen Alvarez 11/01/19 10 spontaneous 08/10/20 Lakisha 37 live - full term 5#14oz Female 10 HR epid ural [facility] Jenni Pino 08/10/20 Mccreary 37 live - full term 6#4oz Male 10 HR epid ural [facility] Jenni Pino 03/19/24 Elaine 39 live - full term 8lbs 2oz Female [employer] [facility] Dr. Gleason Delivery Date: 04/05/18 Last Updated [...] no vb/lof/ct x. cyst is bothersome again. [facility] scheduled KW- no vb/lof/ctx. cyst is b othersome again discussed with . [facility] scheduled 10/15/24 -?-?-?-?-?-?-?-?-?-?-?-?- 16w 5d 200 lb [...] SM- no vb lof cr ampingboy on RUST- no vb lof cramping boy o n [...] Elaine Alvarez will be 39 weeks on -. requests IOL on this day. (17) Hx of twin in prior : Status: Acute Comment: Fraternal (18) History of miscarriage, currently : Status: Acute Orders: Orders POC Urinalysis 2 Dip (Clinic) Today 01/13/25 1106 <Electronically signed by Lawson mujica CNM> Date _ Lawson Parry CNM Cosigner Signature: Date (if applicable) CC: ~ [facility] Work Phone: [employer] for referral (narrative)* Diagnostic Procedure Only (Routine) - Closed Specialty Diagnoses / Procedures Referred By Contac t Referred To Contact XR IMAGING Diagnoses Pain Procedures XR HIP GENERAL 3V PELV/AP/LAT RIGHT RADEX HIP UNILATERAL WITH PELVIS 2-3 VIEWS Cathryn Morrell DO [address] [id number] Xr Imaging Referral ID Status Reason Start Date Expiration Date V isits Requested Visits Authorized [id number] Closed Auto-Generate d Referral 12/02/2021 01/01/2023 1 1 [facility] for referral (narrative)* Diagnostic Procedure Only (Urgent) - Closed Specialty Diagnoses / Procedures Referred By Contac t Referred To Contact US IMAGING Diagnoses Right calf pain Procedures US DVT LOWER RT DUP-SCAN XTR VEINS UNILATERAL/LIMITED STUDY Kelly Johnson PA-C [address] [place] [address] Us Imaging Referral ID Status Reason Start Date Expiration Date V isits Requested Visits Authorized [id number] Closed Auto-Generate d Referral 02/28/2022 03/30/2023 1 1 [facility] for referral (narrative)* Diagnostic Procedure Only (Routine) - Closed Specialty Diagnoses / Procedures Referred By Contac t Referred To Contact XR IMAGING Diagnoses Pain of left calf Procedures XR TIBIA FIBULA 2V AP/LAT LEFT RADIOLOGIC EXAMINATION TIBIA & FIBULA 2 VIEWS Kelly Calabrese PA-C [address] [place] [address] [place] [address] Referral ID Status Reason Start Date Expiration Date V isits Requested Visits Authorized [id number] Closed Auto-Generate d Referral 05/08/2023 06/06/2024 1 1 [facility] for referral (narrative)* Diagnostic Procedure Only (Routine) - Closed Specialty Diagnoses / Procedures Referred By Contac t Referred To Contact XR IMAGING Diagnoses Pain in left hip Procedures XR HIP GENERAL 3V PELV/AP/LAT LEFT RADEX HIP UNILATERAL WITH PELVIS 2-3 VIEWS Kelly Calabrese PA-C [address] [place] [address] [place] [address] Referral ID Status Reason Start Date Expiration Date V isits Requested Visits Authorized [id number] Closed Auto-Generate d Referral 02/08/2023 03/09/2024 1 1 [facility] for referral (narrative)* Diagnostic Procedure Only (Routine) - Closed Specialty Diagnoses / Procedures Referred By Contac t Referred To Contact XR IMAGING Diagnoses Pain in right hip Procedures XR HIP GENERAL 3V PELV/AP/LAT RIGHT RADEX HIP UNILATERAL WITH PELVIS 2-3 VIEWS Cathryn Morrell DO [address] [place] [address] [place] [address] Referral ID Status Reason Start Date Expiration Date V isits Requested Visits Authorized [id number] Closed Auto-Generate d Referral 06/28/2022 07/28/2023 1 1 [facility] for referral (narrative)No reason for referral information availableWMer[facility] Work Phone: [facility] for visit Narrative* Diagnostic Procedure Only (Routine) - Closed Specialty Diagnoses / Procedures Referred By Contac t Referred To Contact XR IMAGING Diagnoses Pain of left calf Procedures XR TIBIA FIBULA 2V AP/LAT LEFT RADIOLOGIC EXAMINATION TIBIA & FIBULA 2 VIEWS Kelly Calabrese PA-C [address] [place] [address] [place] [address] Referral ID Status Reason Start Date Expiration Date V isits Requested Visits Authorized [id number] Closed Auto-Generate d Referral 05/08/2023 06/06/2024 1 1 [facility] for visit Narrative* Diagnostic Procedure Only (Routine) - Closed Specialty Diagnoses / Procedures Referred By Contac t Referred To Contact XR IMAGING Diagnoses Pain in left hip Procedures XR HIP GENERAL 3V PELV/AP/LAT LEFT RADEX HIP UNILATERAL WITH PELVIS 2-3 VIEWS Kelly Calabrese PA-C [address] [place] [address] [place] [address] Referral ID Status Reason Start Date Expiration Date V isits Requested Visits Authorized [id number] Closed Auto-Generate d Referral 02/08/2023 03/09/2024 1 1 [facility] for visit Narrative* Diagnostic Procedure Only (Routine) - Closed Specialty Diagnoses / Procedures Referred By Contac t Referred To Contact XR IMAGING Diagnoses Pain in right hip Procedures XR HIP GENERAL 3V PELV/AP/LAT RIGHT RADEX HIP UNILATERAL WITH PELVIS 2-3 VIEWS Cathryn Morrell DO [address] [place] [address] [place] [address] Referral ID Status Reason Start Date Expiration Date V isits Requested Visits Authorized [id number] Closed Auto-Generate d Referral 06/28/2022 07/28/2023 1 1 [facility] Reason for Referral Specialty Diagnoses / Procedures Referred By Contac t Referred To Contact MR IMAGING Diagnoses Pain in hip Procedures MRI HIP WO IVCON RT MRI ANY JT LOWER EXTREM W/O CONTRAST MATRCathryn Shirley, DO [address] [place] [address] Mr Imaging Referral ID Status Reason Start Date Expiration Date Visits Requested Visits Authorized [id number] Pending Review Auto-Generat ed Referral 12/08/2021 01/07/2023 1 1 Specialty Diagnoses / Procedures Referred By Contac t Referred To Contact [facility] Diagnoses Trochanteric bursitis of right hip Iliotibial band syndrome of right side Procedures CONSULT TO PHYSICAL THERAPY PHYSICAL THERAPY EVALUATION HIGH COMPLEX 45 MINS Cathryn Morrell, DO [address] [place] [address] [facility] [address] [address] Referral ID Status Reason Start Date Expiration Date Visits Requested Visits Authorized [id number] Pending Review Auto-Generat ed Referral 03/09/2022 03/09/2023 1 1 Referral ID Status Reason Start Date Expiration Date Visits Requested Visits Authorized [id number] Pending Review Auto-Generat ed Referral 04/21/2023 1 1 Specialty Diagnoses / Procedures Referred By Contac t Referred To Contact MR IMAGING Diagnoses Trochanteric bursitis of right hip Procedures MRI HIP WO IVCON RT MRI ANY JT LOWER EXTREM W/O CONTRAST MATRL Cathryn Morrell, DO [address] [place] [address] Mr Imaging Referral ID Status Reason Start Date Expiration Date Visits Requested Visits Authorized [id number] Pending Review Auto-Generat ed Referral 08/18/2022 09/17/2023 1 1 Specialty Diagnoses / Procedures Referred By Contac t Referred To Contact [facility] Diagnoses Strain of calf muscle, left, initial encounter Procedures CONSULT TO PHYSICAL THERAPY PHYSICAL THERAPY EVALUATION HIGH COMPLEX 45 MINS Kelly Calabrese PA-C [address] [place] [address] [facility] [place] [address] [place] [address] Referral ID Status Reason Start Date Expiration Date Visits Requested Visits Authorized [id number] Pending Review Auto-Generat ed Referral 05/12/2023 05/11/2024 [...] Hx Twins, LM P 06/20/23, RAMSES 03/26/24 EORDERS AND RAMON [address] WK OB 17 [...] 2024 2:47 pm Obesity affecting September 10 025 2:47pm Pelvic floor weakness in female [...] 13, 2024 3:04pm Gestational hypertension August 13, 025 3:04pm Hemorrhoids August 13, 2024 3 [...] 2024 12:46pm Inclusion cyst of vulva August 26, 025 12:46pm Lymphocytic colitis August 26, 2024 [...] 2024 2:47 pm Obesity affecting September 10 025 2:47pm Pelvic floor weakness in female [...] 03, 2025 2:52 pm Obesity affecting January 03 025 2:52pm Pelvic floor weakness in female December [...] Chronic anemia January 13, 2025 10:41 am Chief Complaint Admit Date 16wk ob October 07, 2024 1:5 3pm Vag bleeding, October 11, 2024 9 :49pm OB pink spotting October 15, 2024 12:4 4pm wk ob November 07, 2024 9:28am 24 wk ob December 04, 2024 2:48p m EORDERS/DRAW AT 11:10 December 26, 2024 10 :59am 28 wk ob/Glucose January 03, 2025 2:52 pm 30 wk ob January 13, 2025 10:41 am SCREEN FOR GESTATIONAL DM January 14, 2025 6:46am Chief Complaint Admit Date 16wk ob October [...] wk ob January 13, 2025 10:41 am SCREEN FOR GESTATIONAL DM January 14, 2025 6:46am 32 wk ob *Doc Only January 29, 2025 9:53 am Reason for Visit Admit Date Abdominal [...] 13, 2025 10:41 am Abnormal glucose affecting Matty 2024 10:41am Advanced maternal age in multigravida Ju [...] Chronic anemia January 13, 2025 10:41 am Abdominal pain January 29, 2025 9:53 am Abnormal glucose affecting Jan 9:53am Advanced maternal age in multigravida Ju ly 2024 9:53am Gestational hypertension January 29, 2025 9:53am Hemorrhoids January 29, 2025 9:53 am History of miscarriage, currently pregna nt January 29, 2025 9:53am Hx of pre-eclampsia in prior , currently January 29, 2025 9:53am Hx of twin in prior January 29, 2025 9:53am Inclusion cyst of vulva January 29, 2025 9:53am Lymphocytic colitis January 29, 2025 9:53 am Obesity affecting January 29, 025 9:53am Pelvic floor weakness in female January 9:53am Perianal candidiasis January 29, 2025 9:5 3am January 29, 2025 9:53 am Rectal pain January 29, 2025 9:53 am Short interval between pregn ancies affecting in first trimester, January 29, 2025 9:53am Supervision of high-risk January 29, 2025 9:53am Chronic anemia January 29, 2025 9:53 am Chief Complaint Admit Date Vag bleeding, October 11, 2024 9 :49pm OB pink spotting October 15, 2024 12:4 4pm 20wk ob November 07, 2024 9:28am 24 wk ob December 04, 2024 2:48p m EORDERS/DRAW AT 11:10 December 26, 2024 10 :59am 28 wk ob/Glucose January 03, 2025 2:52 pm 30 wk ob January 13, 2025 10:41 am SCREEN FOR GESTATIONAL DM January 14, 2025 6:46am 32 wk ob *Doc Only January 29, 2025 9:53 am R/O PRE E February 07, 2025 11: 50am R/O PRE E February 07, 2025 2:3 3pm Reason for Visit Admit Date Abdominal pain October 15, 2024 12:4 4pm [...] colitis November 07, 2024 9:28am Obesity affecting May 1st, 202 5 9:28am Pelvic floor weakness in female November [...] 2025 2:52 pm Abnormal glucose affecting Ti e 2024 2:52pm Gestational hypertension January 03, 2025 2:52pm Hemorrhoids January 03, 2025 2:52 pm History of miscarriage, currently pregna nt January 03, 2025 2:52pm Hx of pre-eclampsia in prior , currently January 03, 2025 2:52pm Hx of twin in prior January 03, 2025 2:52pm Inclusion cyst of vulva January 03, 2025 2:52pm Lymphocytic colitis January 03, 2025 2:52 pm Obesity affecting January 03, 2 025 2:52pm Pelvic floor weakness in female December [...] 10:41am Advanced maternal age in multigravida Ju ly 2024 10:41am Gestational hypertension January 13, 2025 [...] Chronic anemia January 13, 2025 10:41 am Abdominal pain January 29, 2025 9:53 am Abnormal glucose affecting Jan 9:53am Advanced maternal age in multigravida Ju ly 2024 9:53am Gestational hypertension January 29, 2025 9:53am Hemorrhoids January 29, 2025 9:53 am History of miscarriage, currently pregna nt January 29, 2025 9:53am Hx of pre-eclampsia in prior , currently January 29, 2025 9:53am Hx of twin in prior January 29, 2025 9:53am Inclusion cyst of vulva January 29, 2025 9:53am Lymphocytic colitis January 29, 2025 9:53 am Obesity affecting January 29, 025 9:53am Pelvic floor weakness in female January 9:53am Perianal candidiasis January 29, 2025 9:5 3am January 29, 2025 9:53 am Rectal pain January 29, 2025 9:53 am Short interval between pregn ancies affecting in first trimester, January 29, 2025 9:53am Supervision of high-risk January 29, 2025 9:53am Chronic anemia January 29, 2025 9:53 am Contraction, [facility] February 07, 025 11:50am Hx of pre-eclampsia in prior , currently February 07, 2025 11:50am Chief Complaint Admit Date 20wk ob November 07, 2024 9:28am 24 wk ob December 04, 2024 2:48p m EORDERS/DRAW AT 11:10 December 26, 2024 10 :59am 28 wk ob/Glucose January 03, 2025 2:52 pm 30 wk ob January 13, 2025 10:41 am SCREEN FOR GESTATIONAL DM January 14, 2025 6:46am 32 wk ob *Doc Only January 29, 2025 9:53 am R/O PRE E February 07, 2025 11: 50am R/O PRE E February 07, 2025 2:3 3pm 34 wk ob *Doc Only February 13, 2025 3:5 6pm Reason for Visit Admit Date Abdominal pain November 07, 2024 9:28am Gestational [...] 2025 2:52 pm Obesity affecting January 03, 2 025 2:52pm Pelvic floor weakness in female December [...] 10:41am Advanced maternal age in multigravida Ju ly 2024 10:41am Gestational hypertension January 13, 2025 [...] Chronic anemia January 13, 2025 10:41 am Abdominal pain January 29, 2025 9:53 am Abnormal glucose affecting Jan 9:53am Advanced maternal age in multigravida Ju ly 2024 9:53am Gestational hypertension January 29, 2025 9:53am Hemorrhoids January 29, 2025 9:53 am History of miscarriage, currently pregna nt January 29, 2025 9:53am Hx of pre-eclampsia in prior , currently January 29, 2025 9:53am Hx of twin in prior January 29, 2025 9:53am Inclusion cyst of vulva January 29, 2025 9:53am Lymphocytic colitis January 29, 2025 9:53 am Obesity affecting January 29 025 9:53am Pelvic floor weakness in female January 9:53am Perianal candidiasis January 29, 2025 9:5 3am January 29, 2025 9:53 am Rectal pain January 29, 2025 9:53 am Short interval between pregn ancies affecting in first trimester, January 29, 2025 9:53am Supervision of high-risk January 29, 2025 9:53am Chronic anemia January 29, 2025 9:53 am Contraction, [facility] February 07 11:50am Hx of pre-eclampsia in prior , currently February 07, 2025 11:50am Abdominal pain February 13, 2025 3:5 6pm Abnormal glucose affecting Feb ust 2024 3:56pm Advanced maternal age in multigravida [facility] 2024 3:56pm Contraction, [facility] February 13 3:56pm Gestational hypertension February 13 3:56pm Hemorrhoids February 13, 2025 3:5 6pm History of miscarriage, currently pregna nt February 13, 2025 3:56pm Hx of pre-eclampsia in prior , currently February 13, 2025 3:56pm Hx of twin in prior February 13, 2025 3:56pm Inclusion cyst of vulva February 13, 2025 3:56pm LGA (large for gestational age) fetus [facility] 2024 3:56pm Lymphocytic colitis February 13, 2025 3:5 6pm Obesity affecting February 13, 2025 3:56pm Pelvic floor weakness in female February 132024 3:56pm Perianal candidiasis February 13, 2025 3: 56pm February 13, 2025 3:5 6pm Rectal pain February 13, 2025 3:5 6pm Short interval between pregn ancies affecting in first trimester, February 13, 2025 3:56pm Supervision of high-risk [facility] 2024 3:56pm Chronic anemia February 13, 2025 3:5 6pm Family History Relationship Condition Age at Onset [...] Will No September 01 12:13pm Power of Metal Tank Erector No September 01, 2021 12:13pm Advance Directive Response Recorded Date/ Time Advance Directives No August 11:13am Living Will No September 01 11:13am Power of Metal Tank Erector No September 01, 2021 11:13am Advance Directive Response Recorded Date/ Time Advance Directives No August 12:13pm Living Will No December 08, 2022 9 :03am Power of Metal Tank Erector No December 08, 2022 9:03am Advance Directive Response Recorded Date/ Time Advance Directives No August 11:13am Living Will No December 08, 2022 8 :03am Power of Metal Tank Erector No December 08, 2022 8:03am Advance Directive Response Recorded Date/ Time Living Will Yes March 21, 2024 11:01am Power of Metal Tank Erector Yes March 11:01am Advance Directives No July 18, 2024 11:52am Living Will Yes June 04 4:15pm Power of Metal Tank Erector Yes June 04, 2024 4:15pm Name of Medical Power of Metal Tank Erector June 04, 2024 4:15pm Advance Directive Response Recorded Date/ Time Living Will Yes March 21, 2024 11:01am Do you have a Healthcare Power of Metal Tank Erector? Yes March 21, 2024 11:01am Advance Directives No July 18, 2024 11:52am Living Will Yes June 04 4:15pm Do you have a Healthcare Power of Metal Tank Erector? Yes June 04, 2024 4:15pm Name of Medical Power of Metal Tank Erector June 04, 2024 4:15pm Advance Directive Response Recorded Date/ Time Living Will Yes March 21, 2024 11:01am Do you have a Healthcare Power of Metal Tank Erector? Yes March 21, 2024 11:01am Advance Directives No July 18, 2024 11:52am Living Will Yes October 11, 2024 9:53pm Do you have a Healthcare Power of Metal Tank Erector? Yes October 11, 2024 9:53pm Name of Medical Power of Metal Tank Erector October 11, 2024 9:53pm Advance Directive Response Recorded Date/ Time Advance Directives No July 18, 2024 11:52am Living Will Yes October 11, 2024 9:53pm Do you have a Healthcare Power of Metal Tank Erector? Yes October 11, 2024 9:53pm Name of Medical Power of Metal Tank Erector October 11, 2024 9:53pm Advance Directive Response Recorded Date/ Time Living Will Yes October 11, 2024 9:53pm Do you have a Healthcare Power of Metal Tank Erector? Yes October 11, 2024 9:53pm Name of Medical Power of Metal Tank Erector October 11, 2024 9:53pm Advance Directives No July 18, 2024 11:52am Advance Directive Response Recorded Date/ Time Living Will Yes October 11, 2024 9:53pm Do you have a Healthcare Power of Metal Tank Erector? Yes October 11, 2024 9:53pm Name of Medical Power of Metal Tank Erector October 11, 2024 9:53pm Advance Directives No January 13 11:12am Advance Directive Response Recorded Date/ Time Advance Directives No January 13 11:12am Medications Administered Section Inactive Administered Medications - [...] or prosecute any alcohol or drug abuse patient.[facility] the event this information is protected by the Federal Confidentiality of Alcohol and Drug Abuse Patient Records regulations: The Federal rules restrict any use of the information to criminally investigate or prosecute any alcohol or drug abuse patient.[facility] the event this information is protected by the Federal Confidentiality of Alcohol and Drug Abuse Patient Records regulations: The Federal rules restrict any use of the information to criminally investigate or prosecute any alcohol or drug abuse patient.[facility] the event this information is protected by the Federal Confidentiality of Alcohol and Drug Abuse Patient Records regulations: The Federal rules restrict any use of the information to criminally investigate or prosecute any alcohol or drug abuse patient.[facility] the event this information is protected by the Federal Confidentiality of Alcohol and Drug Abuse Patient Records regulations: The Federal rules restrict any use of the information to criminally investigate or prosecute any alcohol or drug abuse patient.[facility] the event this information is protected by the Federal Confidentiality of Alcohol and Drug Abuse Patient Records regulations: The Federal rules restrict any use of the information to criminally investigate or prosecute any alcohol or drug abuse patient.[facility] Hospital[facility] the event this information is protected by the Federal Confidentiality of Alcohol and Drug Abuse Patient Records regulations: The Federal rules restrict any use of the information to criminally investigate or prosecute any alcohol or drug abuse patient.[facility] the event this information is protected by the Federal Confidentiality of Alcohol and Drug Abuse Patient Records regulations: The Federal rules restrict any use of the information to criminally investigate or prosecute any alcohol or drug abuse patient.[facility] Hospital[facility] the event this information is protected by the Federal Confidentiality of Alcohol and Drug Abuse Patient Records regulations: The Federal rules restrict any use of the information to criminally investigate or prosecute any alcohol or drug abuse patient.[facility] Hospital[facility] the event this information is protected by the Federal Confidentiality of Alcohol and Drug Abuse Patient Records regulations: The Federal rules restrict any use of the information to criminally investigate or prosecute any alcohol or drug abuse patient.[facility] Hospital[facility] the event this information is protected by the Federal Confidentiality of Alcohol and Drug Abuse Patient Records regulations: The Federal rules restrict any use of the information to criminally investigate or prosecute any alcohol or drug abuse patient.[facility] the event this information is protected by the Federal Confidentiality of Alcohol and Drug Abuse Patient Records regulations: The Federal rules restrict any use of the information to criminally investigate or prosecute any alcohol or drug abuse patient.[facility] the event this information is protected by the Federal Confidentiality of Alcohol and Drug Abuse Patient Records regulations: The Federal rules restrict any use of the information to criminally investigate or prosecute any alcohol or drug abuse patient.[facility] the event this information is protected by the Federal Confidentiality of Alcohol and Drug Abuse Patient Records regulations: The Federal rules restrict any use of the information to criminally investigate or prosecute any alcohol or drug abuse patient.[facility] the event this information is protected by the Federal Confidentiality of Alcohol and Drug Abuse Patient Records regulations: The Federal rules restrict any use of the information to criminally investigate or prosecute any alcohol or drug abuse patient.[facility]In the event this information is protected by the Federal Confidentiality of Alcohol and Drug Abuse Patient Records regulations: The Federal rules restrict any use of the information to criminally investigate or prosecute any alcohol or drug abuse patient.[facility] the event this information is protected by the Federal Confidentiality of Alcohol and Drug Abuse Patient Records regulations: The Federal rules restrict any use of the information to criminally investigate or prosecute any alcohol or drug abuse patient.[facility] the event this information is protected by the Federal Confidentiality of Alcohol and Drug Abuse Patient Records regulations: The Federal rules restrict any use of the information to criminally investigate or prosecute any alcohol or drug abuse patient.[facility] HospitalIn the event this information is protected by the Federal Confidentiality of Alcohol and Drug Abuse Patient Records regulations: The Federal rules restrict any use of the information to criminally investigate or prosecute any alcohol or drug abuse patient.[facility] HospitalIn the event this information is protected by the Federal Confidentiality of Alcohol and Drug Abuse Patient Records regulations: The Federal rules restrict any use of the information to criminally investigate or prosecute any alcohol or drug abuse patient.[facility]In the event this information is protected by the Federal Confidentiality of Alcohol and Drug Abuse Patient Records regulations: The Federal rules restrict any use of the information to criminally investigate or prosecute any alcohol or drug abuse patient.[facility] Reason for Visit (unrecogniz ed section and content) Reason Comments New Pain Specialty Diagnoses / Procedures Referred By Contac t Referred To Contact Diagnoses OV Procedures OV Self [facility] Dept Referral ID Status Reason Start Date Expiration Date V isits Requested Visits Authorized [id number] Closed Patient Cleared - Qualified 100% FAS 12/03/2021 03/03/2022 99 99 Reason Comments Follow Up Pain Reason Comments Appointment Reason Comments Radiology US Specialty Diagnoses / Procedures Referred By Contac t Referred To Contact US IMAGING Diagnoses Right calf pain Procedures US DVT LOWER RT DUP-SCAN XTR VEINS UNILATERAL/LIMITED STUDY Kelly Johnson PA-C [address] [place] [address] Us Imaging Referral ID Status Reason Start Date Expiration Date V isits Requested Visits Authorized [id number] Closed Auto-Generate d Referral 02/28/2022 03/30/2023 1 [...] HIGH MDM 40-54 MIN AMAYA ESTABLISH Self [facility] [address] [place] [address] Referral ID Status Reason Start Date Expiration Date V isits Requested Visits Authorized [id number] Authorized 08/17/2022 07/09/2023 99 99 Reason Comments [...] End: September 10, 2024 Dr. Cholo Smith , Referring Provider Active Start: September 10, 2024 [...] September 10, 2024 End: September 10, 2024 Sheriff'S Officer Relationship Specialty Start Date End Date ZewailJ Luis (Historic) PCP - General Internal Medicine 07/19/10 Sheriff'S Officer Relationship Specialty Start Date End Date ZewailJ Luis (Historic) PCP - General Internal Medicine 07/19/10 Sheriff'S Officer Relationship Specialty Start Date End Date Zewail J Luisjose Leijaamed (Historic) PCP - General Internal Medicine 07/19/10 Sheriff'S Officer Relationship Specialty Start Date End Date Zewail J Luisjose Leijaamed (Historic) PCP - General Internal Medicine 07/19/10 Sheriff'S Officer Relationship Specialty Start Date End Date Zewail J Luisjose Nino (Historic) PCP - General Internal Medicine 07/19/10 Sheriff'S Officer Relationship Specialty Start Date End Date Zewail, J Luis Lissamed (Historic) PCP - General Internal Medicine 07/19/10 Sheriff'S Officer Relationship Specialty Start Date End Date Zewail, J Luisjose Nino (Historic) PCP - General Internal Medicine 07/19/10 Sheriff'S Officer Relationship Specialty Start Date End Date Zewail, J Luisjose Leijaamed (Historic) PCP - General Internal Medicine 07/19/10 Sheriff'S Officer Relationship Specialty Start Date End Date Zewail J Luisjose Nino (Historic) PCP - General Internal Medicine 07/19/10 Team Status: Active Member Role Status Dates Dr. Cholo Smith , DO Family Provider Active Dr. Cholo Smith , DO Primary Care Provider Active Team Status: Inactive Member Role Status Dates Dr. Cholo Smith , DO Primary Care Provider, Referrin g Provider Active Chay VALERIO PA Attending Provider Active Team Status: Inactive [...] , DO Primary Care Provider Active Dr. Jenni Coyle [...] Prov ider, Attending Provider, Referring Provider Active Sheriff'S Officer Relationship Specialty Start Date End Date MacariomichaelkamronJ Luis (Historic) PCP - General Internal Medicine 07/19/10 Team Status: Inactive Member Role Status Dates Dr. Cholo Smith DO Primary Care Prov ider, Attending Provider, Referring Provider Active Sheriff'S Officer Relationship Specialty Start Date End Date ZewaJ Luis lundy (Historic) PCP - General Internal Medicine 07/19/10 Sheriff'S Officer Relationship Specialty Start Date End Date ZewaJ Luis lundy (Historic) PCP - General Internal Medicine 07/19/10 Sheriff'S Officer Relationship Specialty Start Date End Date MacarioJ Luis chery (Historic) PCP - General Internal Medicine 07/19/10 11/07/22 Team Status: Inactive Member Role Status Dates Dr. Cholo Smith DO Primary Care Provider, Referrin g Provider Active Dennis Goode COLLAR FUSER, COLLAR FUSER-C Attending Provider Active Team Status: Inactive Member Role Status Dates Dr. Cholo Smith , Primary Care Provider Active Dr. Santi Pelayo MD Emergency Provider Active Sheriff'S Officer Relationship Specialty Start Date End Date Cholo Smith Willian [address] [place] [address] PCP - General Family Medicine 11/08/22 Sheriff'S Officer Relationship Specialty Start Date End Date Sarah Cholo Dorsey DO [address] [place] [address] PCP - General Family Medicine 11/08/22 Team [...] Cholo Smith DO Primary Care Provider Active Nicole Rhodes NP-C Attending Provider, Referring Prov ider Active Sheriff'S Officer Relationship Specialty Start Date End Date Sarah Cholo Dorsey DO [address] [place] [address] PCP - General Family Medicine 11/08/22 Team Status: Inactive Member Role Status Dates Dr. Cholo Smith , Primary Care Provider, Attendin g Provider Active Team Status: Inactive Member Role Status Dates Dr. Cholo Smith , Primary Care Provider, Referrin g Provider Active [...] MD Attending Provider, Referr ing Provider Active Sheriff'S Officer Relationship Specialty Start Date End Date Cholo Smith DO [address] [facility] [place] [address] PCP - General Family Medicine 11/08/22 Sheriff'S Officer Relationship Specialty Start Date End Date MacariomichaelJ Luis ulndy (Historic) PCP - General Internal Medicine 07/19/10 [...] January 13, 2025 End: January 13, 2025 Team Status: Inactive Member Role/Relationship Status Dates Dr. Cholo Smith DO Primary Care Provider Active Start: January 14, 2025 End: January 14, 2025 Lawson Parry CNM Attending Provider Active S tart: January 14, 2025 End: January 14, 2025 Lawson Parry CNM Referring Provider Active S tart: January 14, 2025 End: January 14, 2025 Team Status: Inactive Member Role/Relationship Status Dates Dr. Cholo Smith DO Primary Care Provider Active Start: January 29, 2025 End: January 29, 2025 Dr. Cholo Smith DO Referring Provider Active Start: January 29, 2025 End: January 29, 2025 Dr. Reina Rashid DO Attending Provider Activ e Start: January 29, 2025 End: January 29, 2025 Team Status: Inactive Member Role/Relationship Status [...] January 13, 2025 End: January 13, 2025 Team Status: Inactive Member Role/Relationship Status Dates Dr. Cholo Smith DO Primary Care Provider Active Start: January 14, 2025 End: January 14, 2025 Lawson Parry CNM Attending Provider Active S tart: January 14, 2025 End: January 14, 2025 Lawson Paryr CNM Referring Provider Active S tart: January 14, 2025 End: January 14, 2025 Team Status: Inactive Member Role/Relationship Status Dates Dr. Cholo Smith DO Primary Care Provider Active Start: January 29, 2025 End: January 29, 2025 Dr. Cholo Smith DO Referring Provider Active Start: January 29, 2025 End: January 29, 2025 Dr. Reina Rashid DO Attending Provider Activ e Start: January 29, 2025 End: January 29, 2025 Team Status: Active Member Role/Relationship Status Dates Dr. Cholo Smith DO Primary Care Provider Active Start: February 05, 2025 Danya Simpson COLLAR FUSER, COLLAR FUSER-C Attending Provider Active Start: February 05, 2025 Team Status: Inactive Member Role/Relationship Status Dates Dr. Cholo Smith DO Primary Care Provider Active Start: February 07, 2025 End: February 07, 2025 Linda Hammond CNM Attending Provider Active Start: February 07, 2025 End: February 07, 2025 Linda Hammond CNM Referring Provider Active Start: February 07, 2025 End: February 07, 2025 Team Status: Active Member Role/Relationship Status Dates Dr. Cholo Smith DO Primary Care Provider Active Start: February 07, 2025 Linda Hammond CNM Attending Provider Active Start: February 07, 2025 Linda Hammond CNM Referring Provider Active Start: February 07, 2025 Linda Hammond CNM Other Provider Active Star t: February 07, 2025 Team Status: Inactive Member Role/Relationship Status [...] Inactive Member Role/Relationship Status Dates Dr. Cholo mSith DO Primary Care Provider Active Start: January 13, 2025 End: January 13, 2025 Dr. Cholo Smith DO Referring Provider Active Start: January 13, 2025 End: January 13, 2025 Lawson Parry CNM Attending Provider Active S tart: January 13, 2025 End: January 13, 2025 Team Status: Inactive Member Role/Relationship Status Dates Dr. Cholo Smith DO Primary Care Provider Active Start: January 14, 2025 End: January 14, 2025 Lawson Parry CNM Attending Provider Active S tart: January 14, 2025 End: January 14, 2025 Lawson Parry CNM Referring Provider Active S tart: January 14, 2025 End: January 14, 2025 Team Status: Inactive Member Role/Relationship Status Dates Dr. Cholo Smith DO Primary Care Provider Active Start: January 29, 2025 End: January 29, 2025 Dr. Cholo Smith DO Referring Provider Active Start: January 29, 2025 End: January 29, 2025 Dr. Reina Rashid DO Attending Provider Activ e Start: January 29, 2025 End: January 29, 2025 Team Status: Active Member Role/Relationship Status Dates Dr. Cholo Smith DO Primary Care Provider Active Start: February 05, 2025 Danya Simpson COLLAR FUSER, COLLAR FUSER-C Attending Provider Active Start: February 05, 2025 Team Status: Inactive Member Role/Relationship Status Dates Dr. Cholo Smith DO Primary Care Provider Active Start: February 07, 2025 End: February 07, 2025 Linda Hammond CNM Attending Provider Active Start: February 07, 2025 End: February 07, 2025 ALIA LundM Referring Provider Active Start: February 07, 2025 End: February 07, 2025 Team Status: Active Member Role/Relationship Status Dates Dr. Cholo Smith DO Primary Care Provider Active Start: February 07, 2025 Linda Hammond CNM Attending Provider Active Start: February 07, 2025 Linda Hammond CNM Referring Provider Active Start: February 07, 2025 Linda Hammond CNM Other Provider Active Star t: February 07, 2025 Team Status: Inactive Member Role/Relationship Status Dates Dr. Cholo Smith DO Primary Care Provider Active Start: February 13, 2025 End: February 13, 2025 Dr. Cholo Smith DO Referring Provider Active Start: February 13, 2025 End: February 13, 2025 Dr. Reina Rashid DO Attending Provider Activ e Start: February 13, 2025 End: February 13, 2025 Goals (unrecognized section and content) [...] section and content) DATE CREATED AUTHOR 05/13/2023 [facility] DATE CREATED AUTHOR AUTHOR'S MICKI ATION 05/15/2023 [facility] DATE CREATED AUTHOR AUTHOR'S ORGANIZ ATION 02/01/2025 [facility] DATE CREATED AUTHOR AUTHOR'S ORGANIZ ATION 02/09/2025 [facility] FOR RECORDS PERTAINING TO PATIENTS WHO ARE [...] BE BASED ON THE PRIMARY CLINICAL RECORDS. [facility] [employer] [facility]. provides no warranty or guarantee of the accuracy or completeness of information in this document.
--- OUTSIDE RECORDS SUMMARY | 2025-02-14 21:35 | XMS RPT_ITS | CCD ---
Author Organization [facility] CliniSyut Care Team Providers Care Pneumatic Tube Repairer Name Role Phone J Luis Jacobson (Historic) Primary Care Prov ider Dr. Cholo Smith Primary Care Provider [phone] Cholo Smith Referring Provider Soni, Dr. Nava Attending Provider Dr. Dane Galvan Attending Provider [phone] August Thomas Attending Provider [phone] J Luis Jacobson (Historic) Primary Care Prov ider J Luis Jaocbson (Historic) Primary Care Prov ider J Luis Jacobson (Historic) Primary Care Prov ider Dr. Cholo Smith Primary Care Provider Dr. Cholo Smith Referring Provider IMAN Luis Attending Provider Dr. Cholo Smith Primary Care Provider [phone] Dr. Cholo Smith Referring Provider IMAN Luis Attending Provider [phone] J Luis Jacobson (Historic) Primary Care Prov ider Dr. Cholo Smith Primary Care Provider [phone] Dr. Cholo Smith Referring Provider Roof FOOD SERVER, FOOD SERVER-Ernestina Christianson Attending Provider Sarah DO, Cohlo A Primary Care Provider Dr. Cholo Smith Primary Care Provider [phone] Dr. Cholo Smith Referring Provider [phone] IMAN Loaiza Attending Provider INDIRA, J LUIS [...] Dr. Cholo Smith Primary Care Provider [phone] Cholo Smith Referring Provider IMAN Loaiza Attending Provider IMAN Luis Attending Provider Dr. Cholo Smith Primary Care Provider [phone] Dr. Cholo Smith Referring Provider Dr. Reina [...] [phone] Lawson Parry CNM Attending Provider [phone] Calvin FOOD SERVER-C, Danya Attending Provider Manish CNM, Linda Attending [...] e Vande Velde, Reina Attending Unavailabl e Saarh, Cholo Primary Care Unavailable Lawson Parry Referring [...] Care Unavailable Ivett Marquez Referring Unavailable Ivett Maruqez Attending Unavailable Sarah, Cholo Primary Care Unavailable Lisseth Jackson Referring Unavailable Lisseth Jackson Attending Unavailable Sarah, Cholo Primary Care Unavailable Dr. Cholo Smith DO Primary Care Provider Dr. Cholo Smith DO Referring Provider Dr. Piedad Moreno MD Attending Provider Medications [...] 15 mg by mouth once daily. Multivit 67-Ddmk-Zlnfdh 1-Dha (Pnv-Dha) 27 mg iron-1 mg -300 mg capsule (14 sources) Start: 08-18-2023 Multivit 95-Eowj-Bapxnz 1-Dha (Pnv-Dha) 27 mg iron-1 mg -300 [...] above: Take by mouth. polyethylene glycol 3350 24525 mg powder for oral solution (20 sources) [...] g by mouth o nce daily. Vitamin L02-Dmqmq Acid (10 sources) Start: 02-23-2021 take 1 tablet by mouth once daily Vitamin E69-Hqytq Acid Active 1 TABLET PO DAILY February 22, 2021 11:00pm Start: 02-23-2021 take 1 tablet by daniela th once daily Vitamin O90-Vdpxu Acid Active 1 TABLET PO DAILY February [...] 9:47am Start: 04-28-2012 take 1 capsule by [facility] four times daily at mealtime cephALEXin 500 mg capsule Take 1 capsule by mouth four times daily. With food 40 capsule 0 04/28/2012 Active Comment on above: Take 1 capsule by [facility] four times daily. With food clotrimazole 10 [...] 2024 12:00am October 15, 2024 3:16pm Cranberry Wyoo-Y-Lfxzavmx Co ag (10 sources) Start: 04-04-2018 End: 05-22-2018 Cranberry Csyh-M-Cabmwial Co ag Discontinued 1 EACH PO DAILY April 03, 2018 11:00pm May 22, 2018 1:20pm Start: 04-04-2018 End: 05-22-2018 Cranberry Bfxh-N-Rdvjvuge Co ag Discontinued 1 EACH PO DAILY April 04, 2018 12:00am May 22, 2018 2:20pm Cranberry Hpsd-J-Hlzmjhno Coag 1 EACH tablet (11 sources) Start: 04-04-2018 End: 05-22-2018 take 1 tablet by mouth once daily Cranberry Wlyk-L-Yprqfaav Coag 1 EACH tablet Discontinued 1 NMA PO DAILY April 04, 2018 12:00am May 22, 2018 2:20pm UTI prevention Start: 04-04-2018 End: 05-22-2018 take 1 tablet by mouth once daily Cranberry Xfoz-E-Jgtxwyyy Coag 1 EACH tablet Discontinued 1 NMA [...] 2021 1:00am August 18, 2023 10:02am nystatin [id number] unt/ml topical cream (20 sources) Polyene Antifungal [...] 80 m g injection (KeNALog 40) Vitamin V92-Avqus Acid 1-0.8 mg Tablet (11 sources) Start: 02-23-2021 End: 06-04-2024 Vitamin K68-Evrdv Acid 1-0.8 mg Tablet Discontinued 1 {tbl} [...] hour Early or threatened labor (7 sources) [place] contractions; Translations: [False labor, unspecified] Onset: [...] 02-08-2025 URC Culture exhibits no growth. Normal [facility] Comment on above: Performed By: #### M 100.2208 ####[facility] [address] [place], [address] AST(SGOT)on 02-07-2025 AST [Catalytic activity/Vol] 13 U/L Normal <=31 [facility] Comment on above: Performed By: #### L 400.2010, L501.4405, L501.0900, L501.1400, L501.1105, L100.0500, L501.4100 ####[facility] [address] [place], [address] Alanine Aminotransferas (SGP T)on 02-07-2025 ALT [Catalytic activity/Vol] 8 U/L Normal <=34 [facility] Comment on above: Performed By: #### L 400.2010, L501.4405, L501.0900, L501.1400, L501.1105, L100.0500, L501.4100 ####[facility] [address] [place], [address] Bilirubin Test strip Ql (U)O rdered By: Linda Hammond on 02-07-2025 Bilirubin Ql (U) Negative Negative [facility] CBC-Complete Blood Cnt No Di ffon 02-07-2025 Erythrocyte distribution width (RBC) [Ratio] 12.6 % Normal 11.6-14.6 [facility] Comment on above: Performed By: #### L 400.2010, L501.4405, L501.0900, L501.1400, L501.1105, L100.0500, L501.4100 ####[facility] [address] [place], [address] Hematocrit (Bld) [Volume fraction] 33.6 % Low 37-47 [facility] Comment on above: Performed By: #### L 400.2010, L501.4405, L501.0900, L501.1400, L501.1105, L100.0500, L501.4100 ####[facility] [address] [place], [address] Hemoglobin (Bld) [Mass/Vol] 11.7 g/dL Low 12.0-15.0 [facility] Comment on above: Performed By: #### L 400, L501.4405, L501.0900, L501.1400, L501.1105, L100.0500, L501.4100 ####[facility] [address] [place], [address] MCH (RBC) [Entitic mass] 29.8 pg Normal 27.0-32.0 [facility] Comment on above: Performed By: #### L 400.2010, L501.4405, L501.0900, L501.1400, L501.1105, L100.0500, L501.4100 ####[facility] [address] [place], [address] MCHC (RBC) [Mass/Vol] 34.8 g/dL Normal 32-36 [facility] Comment on above: Performed By: #### L 400.2010, L501.4405, L501.0900, L501.1400, L501.1105, L100.0500, L501.4100 ####[facility] [address] [place], [address] MCV (RBC) [Entitic vol] 85.7 fL Normal 81-[address] [facility] Comment on above: Performed By: #### L 400.2010, L501.4405, L501.0900, L501.1400, L501.1105, L100.0500, L501.4100 ####[facility] [address] [place], [address] Platelet mean volume (Bld) [Entitic vol] 10.6 fL Normal 6.2-12.0 [facility] Comment on above: Performed By: #### L 400.2010, L501.4405, L501.0900, L501.1400, L501.1105, L100.0500, L501.4100 ####[facility] [address] [place], [address] Platelets (Bld) [#/Vol] 186 10*3/uL Normal 150-450 [facility] Comment on above: Performed By: #### L 400.2010, L501.4405, L501.0900, L501.1400, L501.1105, L100.0500, L501.4100 ####[facility] [address] [place], [address] RBC (Bld) [#/Vol] 3.92 10*6/uL Low 4.2-5.4 [facility] Comment on above: Performed By: #### L 400.2010, L501.4405, L501.0900, L501.1400, L501.1105, L100.0500, L501.4100 ####[facility] [address] [place], [address] RDW SD 38.9 fl Normal 35.1-43.9 [facility] Comment on above: Performed By: #### L 400.2010, L501.4405, L501.0900, L501.1400, L501.1105, L100.0500, L501.4100 ####[facility] [address] [place], [address] WBC (Bld) [#/Vol] 8.7 10*3/uL Normal 4.4-11.0 [facility] Comment on above: Performed By: #### L 400, L501.4405, L501.0900, L501.1400, L501.1105, L100.0500, L501.4100 ####[facility] [address] [place], [address] Erythrocyte distribution wid th ratioOrdered By: Linda Hammond on 02-07-2025 Erythrocyte distribution width (RBC) [Ratio] 12.6 % 11.6-14.6 [facility] Erythrocyte distribution wid th standard deviationOrdered By: Linda Hammond on 02-07-2025 Erythrocyte distribution width (RBC) [Ratio] 38.9 fl 35.1-43.9 [facility] Glomerular filtration rate ( GFR) estimation/1.73 sq m using serum, plasma, or whole bOrdered By: Linda Hammond on 02-07-2025 GFR/1.73 sq M.predicted among non-blacks MDRD (S/P/Bld) [Vol rate/Area] 126 mL/min/{1.73_m2} >60 [facility] Comment on above: mL/min/1.73m2 CKD-EP I Creatinine Equation (2020) Hematocrit Auto (Bld) [Volum e fraction]Ordered By: Linda Hammond on 02-07-2025 Hematocrit (Bld) [Volume fraction] 33.6 % Low 37-47 [facility] Hemoglobin measurementOrdere d By: Linda Hammond on 02-07-2025 Hemoglobin (Bld) [Mass/Vol] 11.7 g/dL Low 12.0-15.0 [facility] Ketones Test strip Ql (U)Ord ered By: Linda Hammond on 02-07-2025 Ketones Ql (U) 5 mg/dl High Negative [facility] Laboratory - Chemistry and C hemistry - challengeOrdered By: Linda Hammond on 02-07-2025 AST [Catalytic activity/Vol] 13 U/L <32 [facility] MCV (mean corpuscular volume ) determinationOrdered By: Linda Hammond on 02-07-2025 MCV (RBC) [Entitic vol] 85.7 fL 81-[address] [facility] Mean corpuscular hemoglobin (MCH) determinationOrdered By: Linda Hammond on 02-07-2025 MCH (RBC) [Entitic mass] 29.8 pg 27.0-32.0 [facility] Mean corpuscular hemoglobin concentration (MCHC) determinationOrdered By: Linda Hammond on 02-07-2025 MCHC (RBC) [Mass/Vol] 34.8 g/dL 32-36 [facility] Mean platelet volume determi nationOrdered By: Linda Hammond on 02-07-2025 Platelet mean volume (Bld) [Entitic vol] 10.6 fL 6.2-12.0 [facility] Nitrite Test strip Ql (U)Ord ered By: Linda Hammond on 02-07-2025 Nitrite Ql (U) Negative Negative [facility] OB Triage Physician Noteon 0 02-07-2025 OB Triage Physician Note Normal [facility] Platelet countOrdered By: Fallon Hammond on 02-07-2025 Platelets (Bld) [#/Vol] 186 10*3/uL 150-450 [facility] Protein Test strip Ql (U)Ord ered By: Linda Hammond on 02-07-2025 Protein Ql (U) 15 mg/dl High Negative [facility] Protein+Creatinine Ratio,Uri neon 02-07-2025 PROT:CRE RATIO 174 mg/g CRE Normal 0-200 [facility] Comment on above: Performed By: #### L 400.2010, L501.4405, L501.0900, L501.1400, L501.1105, L100.0500, L501.4100 ####[facility] [address] [place], [address] Protein (U) [Mass/Vol] 8.7 mg/dL Normal 0.0-12.0 [facility] Comment on above: Performed By: #### L 400.2010, L501.4405, L501.0900, L501.1400, L501.1105, L100.0500, L501.4100 ####[facility] [address] [place], [address] UR CREAT 50.20 mg/dL Normal 28.00-217.00 [facility] Comment on above: Performed By: #### L 400.2010, L501.4405, L501.0900, L501.1400, L501.1105, L100.0500, L501.4100 ####[facility] [address] [place], [address] RBC Auto (Bld) [#/Vol]Ordere d By: Linda Hammond on 02-07-2025 RBC (Bld) [#/Vol] 3.92 10*6/uL Low 4.2-5.4 [facility] Random urine creatinine jazmine urement (mass/volume)Ordered By: Linda Hammond on 02-07-2025 Creatinine Unsp time (U) [Mass/Vol] 50.20 mg/dL 28.00-217.00 [facility] Serum Creatinine AND GFRon 0 02-07-2025 Creatinine [Mass/Vol] 0.48 mg/dL Low 0.70-1.20 [facility] Comment on above: Performed By: #### L 400.2010, L501.4405, L501.0900, L501.1400, L501.1105, L100.0500, L501.4100 ####[facility] [address] [place], [address] ECRCL 177.60 ml/min Normal 50-250 [facility] Comment on above: Performed By: #### L 400.2010, L501.4405, L501.0900, L501.1400, L501.1105, L100.0500, L501.4100 ####[facility] [address] [place], [address] GFR/1.73 sq M.predicted among non-blacks MDRD (S/P/Bld) [Vol rate/Area] 126 mL/min/{1.73_m2} Normal >60 [facility] Comment on above: Result Comment: mL/m in/1.73m2 CKD-EPI Creatinine Equation (2020) Performed By: #### L 400.2010, L501.4405, L501.0900, L501.1400, L501.1105, L100.0500, L501.4100 ####[facility] [address] [place], [address] Serum creatinine measurement (mass/volume)Ordered By: Linda Hammond on 02-07-2025 Creatinine [Mass/Vol] 0.48 mg/dL Low 0.70-1.20 [facility] Serum or plasma alanine isabel otransferase (ALT) measurementOrdered By: Linda Hammond on 02-07-2025 ALT [Catalytic activity/Vol] 8 U/L <35 [facility] Serum or plasma uric acid me asurement (mass/volume)Ordered By: Linda Hammond on 02-07-2025 Urate [Mass/Vol] 4.4 mg/dL 2.6-6.0 [facility] Comment on above: The drugs N-Acetylcy steine and Metamizole may falsely depress this assay. Uric Acidon 02-07-2025 URIC 4.4 mg/dL Normal 2.6-6.0 [facility] Comment on above: Result Comment: The drugs N-Acetylcysteine and Metamizole may falselydepress this assay. Performed By: #### L 400.2010, L501.4405, L501.0900, L501.1400, L501.1105, L100.0500, L501.4100 ####[facility] [address] [place], [place], [address] Urinalysis, Routine (Dipstic k)on 02-07-2025 BILIRUBIN URINE Negative Normal Negative [facility] Comment on above: Order Comment: LUCRECIA CTOR TO SPECIFY Performed By: #### L , L501.4405, L501.0900, L501.1400, L501.1105, L100.0500, L501.4100 ####[facility] [address] [place], [place], [id number] Clarity (U) Clear Normal Clear [facility] Comment on above: Order Comment: LUCRECIA CTOR TO SPECIFY Performed By: #### L 400.2010, L501.4405, L501.0900, L501.1400, L501.1105, L100.0500, L501.4100 ####[facility] [address] [place], [place], [address] Color (U) Yellow Normal Yellow [facility] Comment on above: Order Comment: LUCRECIA CTOR TO SPECIFY Performed By: #### L 400, L501.4405, L501.0900, L501.1400, L501.1105, L100.0500, L501.4100 ####[facility] [address] [place], [address] GLUCOSE, UR Normal Normal Normal [facility] Comment on above: Order Comment: COLLE CTOR TO SPECIFY Performed By: #### L 400.2010, L501.4405, L501.0900, L501.1400, L501.1105, L100.0500, L501.4100 ####[facility] [address] [place], [address] KETONE UR 5 mg/dl Abnormal Negative [facility] Comment on above: Order Comment: COLLE CTOR TO SPECIFY Performed By: #### L 400.2010, L501.4405, L501.0900, L501.1400, L501.1105, L100.0500, L501.4100 ####[facility] [address] [place], [address] LEUK ESTERASE Negative Normal Negative [facility] Comment on above: Order Comment: LUCRECIA CTOR TO SPECIFY Performed By: #### L 400.2010, L501.4405, L501.0900, L501.1400, L501.1105, L100.0500, L501.4100 ####[facility] [address] [place], [address] Nitrite Ql (U) Negative Normal Negative [facility] Comment on above: Order Comment: COLLE CTOR TO SPECIFY Performed By: #### L 400.2010, L501.4405, L501.0900, L501.1400, L501.1105, L100.0500, L501.4100 ####[facility] [address] [place], [address] OCCULT BLOOD-UR Negative Normal Negative [facility] Comment on above: Order Comment: COLLE CTOR TO SPECIFY Performed By: #### L 400.2010, L501.4405, L501.0900, L501.1400, L501.1105, L100.0500, L501.4100 ####[facility] [address] [place], [address] pH UR 7.0 Normal 5.0 - 8.0 [facility] Comment on above: Order Comment: LUCRECIA CTOR TO SPECIFY Performed By: #### L 400.2010, L501.4405, L501.0900, L501.1400, L501.1105, L100.0500, L501.4100 ####[facility] [address] [place], [address] PROT DIPSTX 15 mg/dl Abnormal Negative [facility] Comment on above: Order Comment: LUCRECIA CTOR TO SPECIFY Performed By: #### L 400.2010, L501.4405, L501.0900, L501.1400, L501.1105, L100.0500, L501.4100 ####[facility] [address] [place], [address] SP.GR. DIPSTX 1.010 Normal 1.002-1.030 [facility] Comment on above: Order Comment: LUCRECIA CTOR TO SPECIFY Performed By: #### L 400.2010, L501.4405, L501.0900, L501.1400, L501.1105, L100.0500, L501.4100 ####[facility] [address], [address] UROBILI Normal Normal Normal [facility] Comment on above: Order Comment: LUCRECIA CTOR TO SPECIFY Performed By: #### L 400.2010, L501.4405, L501.0900, L501.1400, L501.1105, L100.0500, L501.4100 ####[facility] [address] [place], [address] Urine clarityOrdered By: Tania Hammond on 02-07-2025 Clarity (U) Clear Clear [facility] Urine color determinationOrd ered By: Linda Hammond on 02-07-2025 Color (U) Yellow Yellow [facility] Urine cultureOrdered By: Tania Hammond on 02-07-2025 Bacteria identified Cx Nom (U) Culture exhibits no growth. [facility] Urine glucose detectionOrder ed By: Linda Hammond on 02-07-2025 Glucose Ql (U) Normal mg/dl Normal [facility] Urine leukocyte esterase det ection by dipstickOrdered By: Linda Hammond on 02-07-2025 Leukocyte esterase Test strip Ql (U) Negative Negative [facility] Urine pHOrdered By: Linda Hammond on 02-07-2025 pH (U) 7.0 [pH] 5.0 - 8.0 [facility] Urine protein measurement (m ass/volume)Ordered By: Linda Hammond on 02-07-2025 Protein (U) [Mass/Vol] 8.7 mg/dL 0.0-12.0 [facility] Urine protein/creatinine mas s ratioOrdered By: Linda Hammond on 02-07-2025 Protein/Creatinine (U) [Mass ratio] 174 mg/g CRE 0-200 [facility] Urine specific gravity measu rementOrdered By: Linda Hammond on 02-07-2025 Specific gravity (U) [Rel density] 1.010 1.002-1.030 [facility] Urine urobilinogen measureme ntOrdered By: Linda Hammond on 02-07-2025 Urobilinogen Ql (U) Normal mg/dl Normal [facility] White blood cell (WBC) count Ordered By: Linda Hammond on 02-07-2025 WBC (Bld) [#/Vol] 8.7 10*3/uL 4.4-11.0 [facility] Glucose Challenge Gest 1H 50 katharine 02-05-2025 GLU GEST 50g 1H 111 mg/dL Normal 70-140 [facility] Comment on above: Performed By: #### L 501.0250 ####[facility] [address] [place], [address] Glucose measurement at 2 fahad rs post-dose gestational glucose tolerance testOrdered By: Danya Simpson on 02-05-2025 Glucose [Mass/Vol] 111 mg/dL 70-140 [facility] Laboratory - Chemistry and C hemistry - challengeOrdered By: Reina Romero on 01-29-2025 Glucose Ql (U) Negative [facility] Laboratory - UrinalysisOrder ed By: Reina Romero on 01-29-2025 Protein Ql (U) Negative [facility] [employer] Office Visit Reporton 01-29-2025 [facility] Office Visit Report Normal [facility] Gestational GTT 3HR 100gon 0 01-14-2025 GEST GTT 100gm Normal [facility] Comment on above: Order Comment: Y Result Comment: FAST ING 88 Col: 01/14/25 0657GLUCOSE TOLERANCE TEST FOR Reference Interval GESTATIONAL DIABETES Fasting <105 mg/dL 1 hour <190 mg/dl 2 hour <165 mg/dl 3 hour <145 mg/dl 1 HR GLU 143 Col: 01/14/25 0911 2 HR GLU 126 Col: 01/14/25 1015 3 HR GLU 89 Col: 01/14/25 1115 Performed By: #### L 500.4710 ####[facility] [address] [place], [address] Quantitative serum or plasma 3 hour gestational glucose tolerance panelOrdered By: Lawson Parry on 01-14-2025 Glucose tolerance 3 hours gestational panel See comment [facility] Comment on above: FASTING 88 Col: 0703/03 [...] Parry on 01-13-2025 Glucose Ql (U) Negative [facility] Laboratory - UrinalysisOrder ed By: Lawson Parry on 01-13-2025 Protein Ql (U) Negative [facility] Office Visit Reporton 01-13-2025 [facility] Office Visit Report Normal [facility] Office Visit Reporton 01-03-2025 First [facility] Office Visit Report Normal [facility] Absolute lymphocyte countOrd ered By: Reina Romero on 12-26-2024 Lymphocytes Auto (Unsp spec) [#/Vol] 1.32 10*3/uL 0.83-4.51 [facility] Absolute neutrophil countOrd ered By: Reina Romero on 12-26-2024 Neutrophils (Bld) [#/Vol] 5.7 10*3/uL 2.0-7.7 [facility] Automated lymphocyte count a s percentage of total leukocytesOrdered By: Reina Romero on 12-26-2024 Lymphocytes/100 WBC Auto (Unsp spec) 17.4 % Low 19-41 [facility] Basophil percentageOrdered B y: Reina Romero on 12-26-2024 Basophils/100 WBC (Bld) 0.4 % 0-[address] [facility] CBC W/Diff, Automatedon 12-08 Absolute Lymph 1.32 X10 3/uL Normal 0.83-4.51 [facility] Comment on above: Performed By: #### L 100.0100, L3890.6006, L501.0250, L509.8002 ####[facility] [address] [place], [address] Absolute Neut 5.7 X10 3/uL Normal 2.0-7.7 [facility] Comment on above: Performed By: #### L 100.0100, L3890.6006, L501.0250, L509.8002 ####[facility] [address] [place], [address] Basophils/100 WBC (Bld) 0.4 % Normal 0-[address] [facility] Comment on above: Performed By: #### L 100.0100, L3890.6006, L501.0250, L509.8002 ####[facility] [address] [place], [address] Eosinophils/100 WBC (Bld) 2.9 % Normal 0-5 [facility] Comment on above: Performed By: #### L 100.0100, L3890.6006, L501.0250, L509.8002 ####[facility] [address] [place], [address] Erythrocyte distribution width (RBC) [Ratio] 12.7 % Normal 11.6-14.6 [facility] Comment on above: Performed By: #### L 100.0100, L3890.6006, L501.0250, L509.8002 ####[facility] [address] [place], [address] Hematocrit (Bld) [Volume fraction] 33.8 % Low 37-47 [facility] Comment on above: Performed By: #### L 100.0100, L3890.6006, L501.0250, L509.8002 ####[facility] [address] [place], [address] Hemoglobin (Bld) [Mass/Vol] 11.8 g/dL Low 12.0-15.0 [facility] Comment on above: Performed By: #### L 100.0100, L3890.6006, L501.0250, L509.8002 ####[facility] [address] [place], [address] IG% 0.400 Normal 0.0-0.9 [facility] Comment on above: Result Comment: IG% - Immature Granulocytes (promyelocytes, myelocytes andmetamyelocytes) > 1% indicates that a LEFT SHIFT is Present. Performed By: #### L 100.0100, L3890.6006, L501.0250, L509.8002 ####[facility] [address] [place], [address] Lymphocytes/100 WBC (Bld) 17.4 % Low 19-41 [facility] Comment on above: Performed By: #### L 100.0100, L3890.6006, L501.0250, L509.8002 ####[facility] [address] [place], [address] MCH (RBC) [Entitic mass] 30.6 pg Normal 27.0-32.0 [facility] Comment on above: Performed By: #### L 100.0100, L3890.6006, L501.0250, L509.8002 ####[facility] [address] [place], [address] MCHC (RBC) [Mass/Vol] 34.9 g/dL Normal 32-36 [facility] Comment on above: Performed By: #### L 100.0100, L3890.6006, L501.0250, L509.8002 ####[facility] [address] [place], [address] MCV (RBC) [Entitic vol] 87.8 fL Normal 81-99 [facility] Comment on above: Performed By: #### L 100.0100, L3890.6006, L501.0250, L509.8002 ####[facility] [address] [place], [address] Monocytes/100 WBC (Bld) 3.8 % Normal 0-10 [facility] Comment on above: Performed By: #### L 100.0100, L3890.6006, L501.0250, L509.8002 ####[facility] [address] [place], [address] Neutrophils/100 WBC (Bld) 75.1 % High 47-70 [facility] Comment on above: Performed By: #### L 100.0100, L3890.6006, L501.0250, L509.8002 ####[facility] [address] [place], [address] Nucleated RBC (Bld) [#/Vol] 0 10*3/uL Normal 0-5 [facility] Comment on above: Performed By: #### L 100.0100, L3890.6006, L501.0250, L509.8002 ####[facility] [address] [place], [address] Platelet mean volume (Bld) [Entitic vol] 9.9 fL Normal 6.2-12.0 [facility] Comment on above: Performed By: #### L 100.0100, L3890.6006, L501.0250, L509.8002 ####[facility] [address] [place], [address] Platelets (Bld) [#/Vol] 196 10*3/uL Normal 150-450 [facility] Comment on above: Performed By: #### L 100.0100, L3890.6006, L501.0250, L509.8002 ####[facility] [address] [place], [address] RBC (Bld) [#/Vol] 3.85 10*6/uL Low 4.2-5.4 [facility] Comment on above: Performed By: #### L 100.0100, L3890.6006, L501.0250, L509.8002 ####[facility] [address] [place], [address] RDW SD 40.8 fl Normal 35.1-43.9 [facility] Comment on above: Performed By: #### L 100.0100, L3890.6006, L501.0250, L509.8002 ####[facility] [address] [place], [address] WBC (Bld) [#/Vol] 7.6 10*3/uL Normal 4.4-11.0 [facility] Comment on above: Performed By: #### L 100.0100, L3890.6006, L501.0250, L509.8002 ####[facility] [address] [place], [address] Eosinophil percentageOrdered By: Reina Romero on 12-26-2024 Eosinophils/100 WBC (Bld) 2.9 % 0-5 [facility] Erythrocyte distribution wid th ratioOrdered By: Reina Romero on 12-26-2024 Erythrocyte distribution width (RBC) [Ratio] 12.7 % 11.6-14.6 [facility] Erythrocyte distribution wid th standard deviationOrdered By: Reina Romero on 12-26-2024 Erythrocyte distribution width (RBC) [Ratio] 40.8 fl 35.1-43.9 [facility] Glucose Challenge Gest 1H 50 katharine 12-26-2024 GLU GEST 50g 1H 138 mg/dL Normal 70-140 [facility] Comment on above: Performed By: #### L 100.0100, L3890.6006, L501.0250, L509.8002 ####[facility] [address] [place], [address] Glucose measurement at 2 fahad rs post-dose gestational glucose tolerance testOrdered By: Reina Romero on 12-26-2024 Glucose [Mass/Vol] 138 mg/dL 70-140 [facility] HIVon 12-26-2024 HIV Non-Reactive Normal Nonreactive [facility] Comment on above: Result Comment: Non- ReactiveReactiveRepeatedly reactive samples must be confirmed according [facility] recommended confirmatory algorithms. The subresults foreither HIVAG or AHIV can be used as an aid in the selectionof the confirmation algorithm for reactive samples.Send out specimens with Reactive results to [facility] forconfirmation.Order the HIV antibody detection and differentiation:#[id number] Performed By: #### L 100.0100, L3890.6006, L501.0250, L509.8002 ####[facility] [address] [place], [place], [address] Hematocrit Auto (Bld) [Volum e fraction]Ordered By: Reina Romero on 12-26-2024 Hematocrit (Bld) [Volume fraction] 33.8 % Low 37-47 [facility] Hemoglobin measurementOrdere d By: Reina Romero on 12-26-2024 Hemoglobin (Bld) [Mass/Vol] 11.8 g/dL Low 12.0-15.0 [facility] Immature granulocytes/100 WB C Auto (Bld)Ordered By: Reina Romero on 12-26-2024 Immature granulocytes/100 WBC (Bld) 0.400 % 0.0-0.9 [facility] Comment on above: IG% - Immature Granu locytes (promyelocytes, myelocytes and metamyelocytes) > 1% indicates that a LEFT SHIFT is Present. MCV (mean corpuscular volume ) determinationOrdered By: Reina Romero on 12-26-2024 MCV (RBC) [Entitic vol] 87.8 fL 81-[address] [facility] Mean corpuscular hemoglobin (MCH) determinationOrdered By: Reina Romero on 12-26-2024 MCH (RBC) [Entitic mass] 30.6 pg 27.0-32.0 [facility] Mean corpuscular hemoglobin concentration (MCHC) determinationOrdered By: Reina Romero on 12-26-2024 MCHC (RBC) [Mass/Vol] 34.9 g/dL 32-36 [facility] Mean platelet volume determi nationOrdered By: Reina Romero on 12-26-2024 Platelet mean volume (Bld) [Entitic vol] 9.9 fL 6.2-12.0 [facility] Monocyte percentageOrdered B y: Reina Romero on 12-26-2024 Monocytes/100 WBC (Bld) 3.8 % 0-[address] [facility] Neutrophil percentageOrdered By: Reina Romero on 12-26-2024 Neutrophils/100 WBC (Bld) 75.1 % High 47-70 [facility] No Panel InformationOrdered By: Reina Romero on 12-26-2024 HIV (1&2) Antibody Non-Reactive Nonreactive [facility] Comment on above: Non-ReactiveReactive Repeatedly reactive samples must be confirmed according to CDC recommended confirmatory algorithms. The subresults for either HIVAG or AHIV can be used as an aid in the selection of the confirmation algorithm for reactive samples.Send out specimens with Reactive results to [facility] for confirmation.Order the HIV antibody detection and differentiation: #[id number] Nucleated red blood cell per centageOrdered By: Reina Romero on 12-26-2024 Nucleated RBC/100 WBC (Bld) [Ratio] 0 % 0-5 [facility] Platelet countOrdered By: Wade dysonchino Heather on 12-26-2024 Platelets (Bld) [#/Vol] 196 10*3/uL 150-450 [facility] RBC Auto (Bld) [#/Vol]Ordere d By: Reina Romero on 12-26-2024 RBC (Bld) [#/Vol] 3.85 10*6/uL Low 4.2-5.4 [facility] Syphilis Antibodieson 2024 Syphilis Abs Non-Reactive Normal Nonreactive [facility] Comment on above: Performed By: #### L 100.0100, L3890.6006, L501.0250, L509.8002 ####[facility] [address] [place], [address] White blood cell (WBC) count Ordered By: Reina Romero on 12-26-2024 WBC (Bld) [#/Vol] 7.6 10*3/uL 4.4-11.0 [facility] Laboratory - Chemistry and C hemistry - challengeOrdered By: Reina Romero on 12-04-2024 Glucose Ql (U) Negative [facility] Laboratory - UrinalysisOrder ed By: Reina Romero on 12-04-2024 Protein Ql (U) Negative [facility] Visit Reporton 12-04-2024 [facility] Visit Report Normal [facility] Laboratory - Chemistry and C hemistry - challengeOrdered By: Piedad Moreno on 11-07-2024 Glucose Ql (U) Negative [facility] Laboratory - UrinalysisOrder ed By: Piedad Moreno on 11-07-2024 Protein Ql (U) Negative [facility] Visit Reporton 11-07-2024 [facility] Visit Report Normal [facility] Genital Culture Comprehensiv coleman 10-18-2024 VAC Reason for Exam: pelvic cramping No Gardnerella, Neisseria or beta-hemolytic Streptococcus isolated. Presumptive C albicans Amount Growth 3+ Normal [facility] Comment on above: Performed By: #### M 100.1999, M100.3200, M100.2200 ####[facility] [address] [place], [address] Urine Cultureon 10-17-2024 URC Below infection level. Mixed Gram Positive Organisms [place] Count 1000-10,000 MIXC Mixed contaminants. Submit a new specimen if indicated. Normal [facility] Comment on above: Performed By: #### M 100.1999, M100.3200, M100.2200 ####[facility] [address] [place], [address] Gram Stainon 10-15-2024 GS Reason for Exam: pelvic cramping Gram Stain Rare Yeast Like Organisms 4+ Gram positive rods No White Blood Cells No Gram negative diplococci Score = 0 Interpretation: 0-3 Normal, 4-6 Intermediate, 7-10 Positive BV Normal [facility] Comment on above: Performed By: #### M 100.1999, M100.3200, M100.2200 ####[facility] [address] [place], [address] Gram stainOrdered By: Piedad Moreno on 10-15-2024 Microscopic observation Gram stain Nom (Unsp spec) [facility] Laboratory - Chemistry and C hemistry - challengeOrdered By: Piedad Moreno on 10-15-2024 Glucose Ql (U) Negative [facility] Laboratory - UrinalysisOrder ed By: Piedad Moreno on 10-15-2024 Protein Ql (U) Negative [facility] Visit Reporton 10-15-2024 [facility] Visit Report Normal [facility] Urine cultureOrdered By: Chin Moreno on 10-15-2024 Bacteria identified Cx Nom (U) Positive Abnormal [facility] Bilirubin Test strip Ql (U)O rdered By: Mary Jane Wade on 10-11-2024 Bilirubin Ql (U) Negative Negative [facility] Emergency Department Summary on 10-11-2024 Emergency Department Summary Normal [facility] Epithelial cells.squamous LM Ql (Urine sed)Ordered By: Mary Jane Wade on 10-11-2024 Epithelial cells.squamous LM.HPF (Urine sed) [#/Area] 0 /[HPF] 5-10 [facility] Glucose Ql (U)Ordered By: Sidney Wade on 10-11-2024 Urine Glucose (UA) Normal mg/dl Normal [facility] Ketones Test strip Ql (U)Ord ered By: Mary Jane Wade on 10-11-2024 Ketones Ql (U) Negative Negative [facility] Microscopic analysis of urin e for red blood cells (RBC)Ordered By: Mary Jane Wade on 10-11-2024 Microscopic analysis of urine for red blood cells (RBC) 0-5 SEEN /hpf 0-5 [facility] Urine RBC 0-5 SEEN /hpf 0-5 [facility] Mucus LM Ql (Urine sed)Order ed By: Mary Jane Wade on 10-11-2024 Mucus Ql (Urine sed) 0 SEEN /hpf [facility] Nitrite Test strip Ql (U)Ord ered By: Mary Jane Wade on 10-11-2024 Nitrite Ql (U) Negative Negative [facility] Protein Test strip Ql (U)Ord ered By: Mary Jane Wade on 10-11-2024 Protein Ql (U) Negative Negative [facility] Squamous epithelial cells de tection in urine sediment by light microscopyOrdered By: Mary Jane Wade on 10-11-2024 Epithelial cells.squamous LM Ql (Urine sed) 0-5 SEEN /hpf 5-10 [facility] Transvaginal w/Preg USon Transvaginal w/Preg US Normal [facility] Urinalysis, Completeon 10-11 EPI,SQUAMOUS 0-5 SEEN Normal 5-10 [facility] Comment on above: Order Comment: LUCRECIA CANELA TO SPECIFY Performed By: #### L 400.0001 ####[facility] [address] [place], [place], [address] RBC 0-5 SEEN Normal 0-5 [facility] Comment on above: Order Comment: LUCRECIA WILLISOR TO SPECIFY Performed By: #### L 400.0001 ####[facility] [address] [place], [address] WBC 0-5 SEEN Normal 0-5 [facility] Comment on above: Order Comment: COLLE CTOR TO SPECIFY Performed By: #### L 400.0001 ####[facility] [address] [place], [address] BACTERIA 0 SEEN Normal None Seen [facility] Comment on above: Order Comment: LUCRECIA CTOR TO SPECIFY Performed By: #### L 400.0001 ####[facility] [address] [place], [address] Mucus Ql (Urine sed) 0 SEEN Normal [facility] Comment on above: Order Comment: LUCRECIA CTOR TO SPECIFY Performed By: #### L 400.0001 ####[facility] [address] [place], [place], [id number] Urine blood detectionOrdered By: Mary Jane Wade on 10-11-2024 Urine Occult Blood 25 /ul High Negative [facility] Urine clarityOrdered By: Ellyn Wade on 10-11-2024 Clarity (U) Sl. Cloudy Clear [facility] Urine color determinationOrd ered By: Mary Jane Wade on 10-11-2024 Color (U) Yellow Yellow [facility] Urine glucose detectionOrder ed By: Mary Jane Wade on 10-11-2024 Glucose Ql (U) Normal mg/dl Normal [facility] Urine leukocyte esterase det ection by dipstickOrdered By: Mary Jane Wade on 10-11-2024 Leukocyte esterase Test strip Ql (U) 25 /ul High Negative [facility] Urine pHOrdered By: Mary Jane neal on 10-11-2024 pH (U) 6.0 [pH] 5.0 - 8.0 [facility] Urine sediment bacteria coun t by microscopy (number/high power field)Ordered By: Mary Jane Wade on 10-11-2024 Bacteria LM.HPF (Urine sed) [#/Area] 0 /[HPF] None Seen [facility] Urine specific gravity measu rementOrdered By: Mary Jane Wade on 10-11-2024 Specific gravity (U) [Rel density] 1.015 1.002-1.030 [facility] Urine urobilinogen measureme ntOrdered By: Mary Jane Wade on 10-11-2024 Urobilinogen Ql (U) Normal mg/dl Normal [facility] Urobilinogen Ql (U)Ordered B y: Mary Jane Wade on 10-11-2024 Urine Urobilinogen Normal mg/dl Normal [facility] White blood cell countOrdere d By: Mary Jane Wade on 10-11-2024 Urine WBC 0-5 SEEN /hpf 0-5 [facility] White blood cell count 0-5 SEEN /hpf 0-5 [facility] Laboratory - Chemistry and C hemistry - challengeOrdered By: Lawson Parry on 10-07-2024 Bilirubin Ql (U) Negative [facility] Glucose Ql (U) Negative [facility] Ketones Ql (U) Negative [facility] pH (U) 5 [pH] [facility] Specific gravity (U) [Rel density] 1.015 [facility] Urobilinogen (U) [Mass/Vol] Negative [facility] Laboratory - Hematology and Cell countsOrdered By: Lawson Parry on 10-07-2024 Hemoglobin Ql (U) Negative [facility] Laboratory - Specimen inform ationOrdered By: Lawson Parry on 10-07-2024 Clarity (U) Clear [facility] Color (U) Yellow [facility] Laboratory - UrinalysisOrder ed By: Lawson Parry on 10-07-2024 Nitrite Ql (U) Negative [facility] Protein Ql (U) Negative [facility] No Panel InformationOrdered By: Lawson Parry on 10-07-2024 Urine Leukocytes Negatve [facility] Urine Non-Hemolyzed Blood Negative [facility] Visit Reporton 10-07-2024 [facility] Visit Report Normal [facility] Absolute lymphocyte countOrd ered By: Reina Romero on 09-10-2024 Lymphocytes Auto (Unsp spec) [#/Vol] 1.58 10*3/uL 0.83-4.51 [facility] Absolute neutrophil countOrd ered By: Reina Romero on 09-10-2024 Neutrophils (Bld) [#/Vol] 5.1 10*3/uL 2.0-7.7 [facility] Anion gap in Serum or Plasma Ordered By: Reina Romero on 09-10-2024 Anion gap [Moles/Vol] 13 mmol/L 5-15 [facility] Automated lymphocyte count a s percentage of total leukocytesOrdered By: Reina Romero on 09-10-2024 Lymphocytes/100 WBC Auto (Unsp spec) 22.0 % - [facility] BUN/creatinine ratioOrdered By: Reina Romero on 09-10-2024 Urea nitrogen/Creatinine [Mass ratio] 17.4 mg/mg 10- [facility] Basophil percentageOrdered B y: Reina Romero on 09-10-2024 Basophils/100 WBC (Bld) 0.1 % 0-[address] [facility] Bilirubin, totalOrdered By: Reina Romero on 09-10-2024 Bilirubin [Mass/Vol] 0.19 mg/dL 0.00-1.30 [facility] CBC W/Diff, Automatedon Absolute Lymph 1.58 X10 3/uL Normal 0.83-4.51 [facility] Comment on above: Performed By: #### L 509.4006, L3890.6301, L3890.6006, L100.0100, L500.4050, BTS, L509.8002, L900.0098, L501.9985, L3890.6102 ####[facility] [address] [place], [place], [id number] Absolute Neut 5.1 X10 3/uL Normal 2.0-7.7 [facility] Comment on above: Performed By: #### L 509.4006, L3890.6301, L3890.6006, L100.0100, L500.4050, BTS, L509.8002, L900.0098, L501.9985, L3890.6102 ####[facility] [address] [place], [address] Basophils/100 WBC (Bld) 0.1 % Normal 0-[address] [facility] Comment on above: Performed By: #### L 509.4006, L3890.6301, L3890.6006, L100.0100, L500.4050, BTS, L509.8002, L900.0098, L501.9985, L3890.6102 ####[facility] [address] [place], [address] Eosinophils/100 WBC (Bld) 2.6 % Normal 0-5 [facility] Comment on above: Performed By: #### L 509.4006, L3890.6301, L3890.6006, L100.0100, L500.4050, BTS, L509.8002, L900.0098, L501.9985, L3890.6102 ####[facility] [address] [place], [place], [phone] Erythrocyte distribution width (RBC) [Ratio] 12.0 % Normal 11.6-14.6 [facility] Comment on above: Performed By: #### L 509.4006, L3890.6301, L3890.6006, L100.0100, L500.4050, BTS, L509.8002, L900.0098, L501.9985, L3890.6102 ####[facility] [address] [place], [place], [phone] Hematocrit (Bld) [Volume fraction] 40.2 % Normal 37-47 [facility] Comment on above: Performed By: #### L 509.4006, L3890.6301, L3890.6006, L100.0100, L500.4050, BTS, L509.8002, L900.0098, L501.9985, L3890.6102 ####[facility] [address] [place], [address] Hemoglobin (Bld) [Mass/Vol] 13.9 g/dL Normal 12.0-15.0 [facility] Comment on above: Performed By: #### L 509.4006, L3890.6301, L3890.6006, L100.0100, L500.4050, BTS, L509.8002, L900.0098, L501.9985, L3890.6102 ####[facility] [address] [place], [address] IG% 0.300 Normal 0.0-0.9 [facility] Comment on above: Result Comment: IG% - Immature Granulocytes (promyelocytes, myelocytes andmetamyelocytes) > 1% indicates that a LEFT SHIFT is Present. Performed By: #### L 509.4006, L3890.6301, L3890.6006, L100.0100, L500.4050, BTS, L509.8002, L900.0098, L501.9985, L3890.6102 ####[facility] [address] [place], [address] Lymphocytes/100 WBC (Bld) 22.0 % Normal 19-41 [facility] Comment on above: Performed By: #### L 509.4006, L3890.6301, L3890.6006, L100.0100, L500.4050, BTS, L509.8002, L900.0098, L501.9985, L3890.6102 ####[facility] [address] [place], [address] MCH (RBC) [Entitic mass] 30.0 pg Normal 27.0-32.0 [facility] Comment on above: Performed By: #### L 509.4006, L3890.6301, L3890.6006, L100.0100, L500.4050, BTS, L509.8002, L900.0098, L501.9985, L3890.6102 ####[facility] [address] [facility] [place], [address] MCHC (RBC) [Mass/Vol] 34.6 g/dL Normal 32-36 [facility] Comment on above: Performed By: #### L 509.4006, L3890.6301, L3890.6006, L100.0100, L500.4050, BTS, L509.8002, L900.0098, L501.9985, L3890.6102 ####[facility] [address] [facility] [place], [address] MCV (RBC) [Entitic vol] 86.6 fL Normal 81-[address] [facility] Comment on above: Performed By: #### L 509.4006, L3890.6301, L3890.6006, L100.0100, L500.4050, BTS, L509.8002, L900.0098, L501.9985, L3890.6102 ####[facility] [address] [facility] [place], [address] Monocytes/100 WBC (Bld) 4.3 % Normal 0-10 [facility] Comment on above: Performed By: #### L 509.4006, L3890.6301, L3890.6006, L100.0100, L500.4050, BTS, L509.8002, L900.0098, L501.9985, L3890.6102 ####[facility] [address] [facility] [place], [address] Neutrophils/100 WBC (Bld) 70.7 % High 47-70 [facility] Comment on above: Performed By: #### L 509.4006, L3890.6301, L3890.6006, L100.0100, L500.4050, BTS, L509.8002, L900.0098, L501.9985, L3890.6102 ####[facility] [address] [place], [address] Nucleated RBC (Bld) [#/Vol] 0 10*3/uL Normal 0-5 [facility] Comment on above: Performed By: #### L 509.4006, L3890.6301, L3890.6006, L100.0100, L500.4050, BTS, L509.8002, L900.0098, L501.9985, L3890.6102 ####[facility] [address] [place], [address] Platelet mean volume (Bld) [Entitic vol] 9.6 fL Normal 6.2-12.0 [facility] Comment on above: Performed By: #### L 509.4006, L3890.6301, L3890.6006, L100.0100, L500.4050, BTS, L509.8002, L900.0098, L501.9985, L3890.6102 ####[facility] [address] [place], [address] Platelets (Bld) [#/Vol] 281 10*3/uL Normal 150-450 [facility] Comment on above: Performed By: #### L 509.4006, L3890.6301, L3890.6006, L100.0100, L500.4050, BTS, L509.8002, L900.0098, L501.9985, L3890.6102 ####[facility] [address] [place], [address] RBC (Bld) [#/Vol] 4.64 10*6/uL Normal 4.2-5.4 [facility] Comment on above: Performed By: #### L 509.4006, L3890.6301, L3890.6006, L100.0100, L500.4050, BTS, L509.8002, L900.0098, L501.9985, L3890.6102 ####[facility] [address] [place], [address] RDW SD 37.5 fl Normal 35.1-43.9 [facility] Comment on above: Performed By: #### L 509.4006, L3890.6301, L3890.6006, L100.0100, L500.4050, BTS, L509.8002, L900.0098, L501.9985, L3890.6102 ####[facility] [address] [place], [address] WBC (Bld) [#/Vol] 7.2 10*3/uL Normal 4.4-11.0 [facility] Comment on above: Performed By: #### L 509.4006, L3890.6301, L3890.6006, L100.0100, L500.4050, BTS, L509.8002, L900.0098, L501.9985, L3890.6102 ####[facility] [address] [place], [place], [address] Carbon dioxide, total [Moles /volume] in Central venous bloodOrdered By: Reina Romero on 09-10-2024 CO2 [Moles/Vol] 21.9 mmol/L 21.0-32.0 [facility] Chloride assayOrdered By: aWde Romero on 09-10-2024 Chloride [Moles/Vol] 104 mmol/L 98-108 [facility] Comprehensive Metabolic Prof ilon 09-10-2024 GAP 13 Normal 5-15 [facility] Comment on above: Order Comment: NIPT with Gender Performed By: #### L 509.4006, L3890.6301, L3890.6006, L100.0100, L500.4050, BTS, L509.8002, L900.0098, L501.9985, L3890.6102 ####[facility] [address] [place], [address] Albumin [Mass/Vol] 4.4 g/dL Normal 3.5-5.0 [facility] Comment on above: Order Comment: NIPT with Gender Performed By: #### L 509.4006, L3890.6301, L3890.6006, L100.0100, L500.4050, BTS, L509.8002, L900.0098, L501.9985, L3890.6102 ####[facility] [address] [place], [address] Albumin/Globulin [Mass ratio] 1.9 {ratio} Normal 0.9-2.4 [facility] Comment on above: Order Comment: NIPT with Gender Performed By: #### L 509.4006, L3890.6301, L3890.6006, L100.0100, L500.4050, BTS, L509.8002, L900.0098, L501.9985, L3890.6102 ####[facility] [address] [place], [place], [id number] ALK PHOS 60 U/L Normal 35-104 [facility] Comment on above: Order Comment: NIPT with Gender Performed By: #### L 509.4006, L3890.6301, L3890.6006, L100.0100, L500.4050, BTS, L509.8002, L900.0098, L501.9985, L3890.6102 ####[facility] [address] [place], [place], [phone] ALT [Catalytic activity/Vol] 22 U/L Normal <=34 [facility] Comment on above: Order Comment: NIPT with Gender Performed By: #### L 509.4006, L3890.6301, L3890.6006, L100.0100, L500.4050, BTS, L509.8002, L900.0098, L501.9985, L3890.6102 ####[facility] [address] [place], [place], [id number] AST [Catalytic activity/Vol] 17 U/L Normal <=31 [facility] Comment on above: Order Comment: NIPT with Gender Performed By: #### L 509.4006, L3890.6301, L3890.6006, L100.0100, L500.4050, BTS, L509.8002, L900.0098, L501.9985, L3890.6102 ####[facility] [address] [place], [place], [id number] Bilirubin [Mass/Vol] 0.19 mg/dL Normal 0.00-1.30 [facility] Comment on above: Order Comment: NIPT with Gender Performed By: #### L 509.4006, L3890.6301, L3890.6006, L100.0100, L500.4050, BTS, L509.8002, L900.0098, L501.9985, L3890.6102 ####[facility] [address] [place], [place], [phone] BUN/CRE 17.4 RATIO Normal 10-20 [facility] Comment on above: Order Comment: NIPT with Gender Performed By: #### L 509.4006, L3890.6301, L3890.6006, L100.0100, L500.4050, BTS, L509.8002, L900.0098, L501.9985, L3890.6102 ####[facility] [address] [place], [place], [phone] Calcium [Mass/Vol] 9.6 mg/dL Normal 7.6-11.0 [facility] Comment on above: Order Comment: NIPT with Gender Performed By: #### L 509.4006, L3890.6301, L3890.6006, L100.0100, L500.4050, BTS, L509.8002, L900.0098, L501.9985, L3890.6102 ####[facility] [address] [place], [address] Chloride [Moles/Vol] 104 mmol/L Normal 98-108 [facility] Comment on above: Order Comment: NIPT with Gender Performed By: #### L 509.4006, L3890.6301, L3890.6006, L100.0100, L500.4050, BTS, L509.8002, L900.0098, L501.9985, L3890.6102 ####[facility] [address] [place], [place], [phone](389) CO2 [Moles/Vol] 21.9 mmol/L Normal 21.0-32.0 [facility] Comment on above: Order Comment: NIPT with Gender Performed By: #### L 509.4006, L3890.6301, L3890.6006, L100.0100, L500.4050, BTS, L509.8002, L900.0098, L501.9985, L3890.6102 ####[facility] [address] [place], [place], [address] Creatinine [Mass/Vol] 0.58 mg/dL Low 0.70-1.20 [facility] Comment on above: Order Comment: NIPT with Gender Performed By: #### L 509.4006, L3890.6301, L3890.6006, L100.0100, L500.4050, BTS, L509.8002, L900.0098, L501.9985, L3890.6102 ####[facility] [address] [place], [address] GFR/1.73 sq M.predicted among non-blacks MDRD (S/P/Bld) [Vol rate/Area] 121 mL/min/{1.73_m2} Normal >60 [facility] Comment on above: Order Comment: NIPT with Gender Result Comment: mL/m in/1.73m2 CKD-EPI Creatinine Equation (2020) Performed By: #### L 509.4006, L3890.6301, L3890.6006, L100.0100, L500.4050, BTS, L509.8002, L900.0098, L501.9985, L3890.6102 ####[facility] [address] [place], [address] Globulin (S) [Mass/Vol] 2.3 g/dL Normal 2.2-4.2 [facility] Comment on above: Order Comment: NIPT with Gender Performed By: #### L 509.4006, L3890.6301, L3890.6006, L100.0100, L500.4050, BTS, L509.8002, L900.0098, L501.9985, L3890.6102 ####[facility] [address] [place], [place], [phone](020) Glucose [Mass/Vol] 86 mg/dL Normal 70-99 [facility] Comment on above: Order Comment: NIPT with Gender Performed By: #### L 509.4006, L3890.6301, L3890.6006, L100.0100, L500.4050, BTS, L509.8002, L900.0098, L501.9985, L3890.6102 ####[facility] [address] [place], [address] Potassium [Moles/Vol] 3.9 mmol/L Normal 3.3-5.1 [facility] Comment on above: Order Comment: NIPT with Gender Performed By: #### L 509.4006, L3890.6301, L3890.6006, L100.0100, L500.4050, BTS, L509.8002, L900.0098, L501.9985, L3890.6102 ####[facility] [address] [place], [place], [phone](307) Sodium [Moles/Vol] 139 mmol/L Normal 133-145 [facility] Comment on above: Order Comment: NIPT with Gender Performed By: #### L 509.4006, L3890.6301, L3890.6006, L100.0100, L500.4050, BTS, L509.8002, L900.0098, L501.9985, L3890.6102 ####[facility] [address] [place], [address] T PROT 6.7 g/dL Normal 5.9-8.4 [facility] Comment on above: Order Comment: NIPT with Gender Performed By: #### L 509.4006, L3890.6301, L3890.6006, L100.0100, L500.4050, BTS, L509.8002, L900.0098, L501.9985, L3890.6102 ####[facility] [address] [place], [address] Urea nitrogen [Mass/Vol] 10 mg/dL Normal 4-19 [facility] Comment on above: Order Comment: NIPT with Gender Performed By: #### L 509.4006, L3890.6301, L3890.6006, L100.0100, L500.4050, BTS, L509.8002, L900.0098, L501.9985, L3890.6102 ####[facility] [address] [place], [address] Eosinophil percentageOrdered By: Reina Romero on 09-10-2024 Eosinophils/100 WBC (Bld) 2.6 % 0-5 [facility] Erythrocyte distribution wid th ratioOrdered By: Reina Romero on 09-10-2024 Erythrocyte distribution width (RBC) [Ratio] 12.0 % 11.6-14.6 [facility] Erythrocyte distribution wid th standard deviationOrdered By: Reina Romero on 09-10-2024 Erythrocyte distribution width (RBC) [Entitic vol] 37.5 fL 35.1-43.9 [facility] Erythrocyte distribution width (RBC) [Ratio] 37.5 fl 35.1-43.9 [facility] GFR/1.73 sq M.predicted javier g non-blacks MDRD (S/P/Bld) [Vol rate/Area]Ordered By: Reina Romero on 09-10-2024 Estimated GFR (MDRD) Non-Af Amer 121 >60 [facility] Comment on above: mL/min/1.73m2 CKD-EP I Creatinine Equation (2020) Glomerular filtration rate ( GFR) estimation/1.73 sq m using serum, plasma, or whole bOrdered By: Reina Romero on 09-10-2024 GFR/1.73 sq M.predicted among non-blacks MDRD (S/P/Bld) [Vol rate/Area] 121 mL/min/{1.73_m2} >60 [facility] Comment on above: mL/min/1.73m2 CKD-EP I Creatinine Equation (2020) HBV surface Ag Ql (S)Ordered By: Reina Romero on 09-10-2024 Hepatitis B Surface Antigen Non-Reactive Nonreactive [facility] Comment on above: Reactive: Presumptiv e evidence of HBV. Repeatedly reactive samples must be confirmed using a neutralization test ([employer] HBsAg Confirmatory Test)Non-Reactive: HBsAg not detected; does not exclude the possibility of exposure to HBV Hematocrit Auto (Bld) [Volum e fraction]Ordered By: Reina Romero on 09-10-2024 Hematocrit (Bld) [Volume fraction] 40.2 % 37-47 [facility] Hemoglobin A1con 09-10-2024 HbA1c (Bld) [Mass fraction] 5.1 % Low <=5.6 [facility] Comment on above: Performed By: #### L 509.4006, L3890.6301, L3890.6006, L100.0100, L500.4050, BTS, L509.8002, L900.0098, L501.9985, L3890.6102 ####[facility] [address] [place], [place], [phone] Hemoglobin A1c percentageOrd ered By: Reina Romero on 09-10-2024 HbA1c (Bld) [Mass fraction] 5.1 % Low >5.7 [facility] Hemoglobin measurementOrdere d By: Reina Heather on 09-10-2024 Hemoglobin (Bld) [Mass/Vol] 13.9 g/dL 12.0-15.0 [facility] Hepatitis C antibodyOrdered By: Reina Heather on 09-10-2024 Hepatitis C Antibody Non-Reactive Nonreactive [facility] Comment on above: Reactive: Presumptiv e evidence of antibodies to HCV. Follow CDC recommendations for supplemental testing.Non-Reactive: Antibodies to HCV were not detected; does not exclude the possibility of exposure to HCVReactive Results are presumptive evidence of antibodies to HCV. Follow CDC recommendations for supplemental testing.Order confirmation testing: HCV Quant by PCR testing - HCVPCR #[id number] Non Reactive: < 0.8 Equivocal: >/= 0.8 to < 1.0 Reactive: >/= 1.0The [facility] [place] requires that a reactive/equivocal HCV antibody result be sent out for confirmation. HCV Quant by PCR testing. Immature granulocytes/100 WB C Auto (Bld)Ordered By: Reina Romero on 09-10-2024 Immature granulocytes/100 WBC (Bld) 0.300 % 0.0-0.9 [facility] Comment on above: IG% - Immature Granu locytes (promyelocytes, myelocytes and metamyelocytes) > 1% indicates that a LEFT SHIFT is Present. L3890.6006on 09-10-2024 HIV Non-Reactive Normal Nonreactive [facility] Comment on above: Result Comment: Non- ReactiveReactiveRepeatedly reactive samples must be confirmed according toCDC recommended confirmatory algorithms. The subresults foreither HIVAG or AHIV can be used as an aid in the selectionof the confirmation algorithm for reactive samples.Send out specimens with Reactive results to [facility] forconfirmation.Order the HIV antibody detection and differentiation:lc#[id number] Performed By: #### L 509.4006, L3890.6301, L3890.6006, L100.0100, L500.4050, BTS, L509.8002, L900.0098, L501.9985, L3890.6102 ####[facility] [address] [place], [place], [id number] L3890.6102on 09-10-2024 HEP B Surf Ag Non-Reactive Normal Nonreactive [facility] Comment on above: Result Comment: Reac tive: Presumptive evidence of HBV. Repeatedly reactivesamples must be confirmed using a neutralization test([employer] HBsAg Confirmatory Test)Non-Reactive: HBsAg not detected; does not exclude thepossibility of exposure to HBV Performed By: #### L 509.4006, L3890.6301, L3890.6006, L100.0100, L500.4050, BTS, L509.8002, L900.0098, L501.9985, L3890.6102 ####[facility] [address] [facility] [address] [place], [place], [id number] L3890.6301on 09-10-2024 Hepatitis C Ab Non-Reactive Normal Nonreactive [facility] Comment on above: Result Comment: Reac tive: Presumptive evidence of antibodies to HCV. FollowC recommendations for supplemental testing.Non-Reactive: Antibodies to HCV were not detected; does notexclude the possibility of exposure to HCVReactive Results are presumptive evidence of antibodies toHCV. Follow CDC recommendations for supplemental testing.Order confirmation testing: HCV Quant by PCR testing -HCVPCR #[id number] Non Reactive: < 0.8 Equivocal: >/= 0.8 to < 1.0 Reactive: >/= 1.0The [facility] [place] requires that a reactive/equivocal HCV antibodyresult be sent out for confirmation. HCV Quant by PCRtesting. Performed By: #### L 509.4006, L3890.6301, L3890.6006, L100.0100, L500.4050, BTS, L509.8002, L900.0098, L501.9985, L3890.6102 ####[facility] [address] [place], [place], [id number] L509.4006on 09-10-2024 Rubella IgG REAC Normal Nonreactive [facility] Comment on above: Result Comment: Anti body Result: InterpretationNon-Reactive: Non-ImmuneReactive: ImmuneThe following results were obtained with the ElecsysRubella IgG assay. Results from assays of othermanufacturers cannot be used interchangeably. Performed By: #### L 509.4006, L3890.6301, L3890.6006, L100.0100, L500.4050, BTS, L509.8002, L900.0098, L501.9985, L3890.6102 ####[facility] [address] [facility] [address]. [place], [place], [address] L509.8002on 09-10-2024 Syphilis Abs Non-Reactive Normal Nonreactive [facility] Comment on above: Performed By: #### L 509.4006, L3890.6301, L3890.6006, L100.0100, L500.4050, BTS, L509.8002, L900.0098, L501.9985, L3890.6102 ####[facility] [address] [facility] [address]. [place], [place], [id number] Laboratory - Chemistry and C hemistry - challengeOrdered By: Reina Romero on 09-10-2024 AST [Catalytic activity/Vol] 17 U/L <32 [facility] Glucose Ql (U) Negative [facility] Laboratory - Microbiology an d Antimicrobial susceptibilityOrdered By: Reina Romero on 09-10-2024 HBV surface Ag Ql (S) Non-Reactive Nonreactive [facility] Comment on above: Reactive: Presumptiv e evidence of HBV. Repeatedly reactive samples must be confirmed using a neutralization test ([employer] HBsAg Confirmatory Test)Non-Reactive: HBsAg not detected; does not exclude the possibility of exposure to HBV Laboratory - UrinalysisOrder ed By: Reina Romero on 09-10-2024 Protein Ql (U) Negative [facility] Lymphocytes Auto (Unsp spec) [#/Vol]Ordered By: Reina Romero on 09-10-2024 Lymphocytes (Bld) [#/Vol] 1.58 10*3/uL 0.83-4.51 [facility] Lymphocytes/100 WBC Auto (Un sp spec)Ordered By: Reina Romero on 09-10-2024 Lymphocytes/100 WBC (Bld) 22.0 % 19-41 [facility] MCV (mean corpuscular volume ) determinationOrdered By: Reina Romero on 09-10-2024 MCV (RBC) [Entitic vol] 86.6 fL 81-[address] [facility] Mean corpuscular hemoglobin (MCH) determinationOrdered By: Reina Romero on 09-10-2024 MCH (RBC) [Entitic mass] 30.0 pg 27.0-32.0 [facility] Mean corpuscular hemoglobin concentration (MCHC) determinationOrdered By: Reina Romero on 09-10-2024 MCHC (RBC) [Mass/Vol] 34.6 g/dL 32-36 [facility] Mean platelet volume determi nationOrdered By: Reina Romero on 09-10-2024 Platelet mean volume (Bld) [Entitic vol] 9.6 fL 6.2-12.0 [facility] Miscellaneous procedureOrder ed By: Reina Romero on 09-10-2024 Miscellaneous Test Comment SEE SCANNED REPORT [facility] Monocyte percentageOrdered B y: Reina Romero on 09-10-2024 Monocytes/100 WBC (Bld) 4.3 % 0-[address] [facility] NATERAon 09-10-2024 NATURA SEE SCANNED REPORT Normal [facility] Comment on above: Order Comment: Comme nts: NIPT with Gender Performed By: #### L 509.4006, L3890.6301, L3890.6006, L100.0100, L500.4050, BTS, L509.8002, L900.0098, L501.9985, L3890.6102 ####[facility] [address] [place], [address] Neutrophil percentageOrdered By: Reina Romero on 09-10-2024 Neutrophils/100 WBC (Bld) 70.7 % High 47-70 [facility] No Panel InformationOrdered By: Reina Romero on 09-10-2024 HIV (1&2) Antibody Non-Reactive Nonreactive [facility] Comment on above: Non-ReactiveReactive Repeatedly reactive samples must be confirmed according to CDC recommended confirmatory algorithms. The subresults for either HIVAG or AHIV can be used as an aid in the selection of the confirmation algorithm for reactive samples.Send out specimens with Reactive results to [facility] for confirmation.Order the HIV antibody detection and differentiation: #[id number] Nucleated red blood cell per centageOrdered By: Reina Romero on 09-10-2024 Nucleated RBC/100 WBC (Bld) [Ratio] 0 % 0-5 [facility] Office Visit Reporton 09-10-2024 [facility] Office Visit Report Normal [facility] Platelet countOrdered By: Wade Romero on 09-10-2024 Platelets (Bld) [#/Vol] 281 10*3/uL 150-450 [facility] Potassium (Unsp spec) [Mass/ Vol]Ordered By: Reina Romero on 09-10-2024 Potassium [Moles/Vol] 3.9 mmol/L 3.3-5.1 [facility] Potassium measurement (mass/ volume)Ordered By: Reina Romero on 09-10-2024 Potassium (Unsp spec) [Mass/Vol] 3.9 mmol/L 3.3-5.1 [facility] RBC Auto (Bld) [#/Vol]Ordere d By: Reina Romero on 09-10-2024 RBC (Bld) [#/Vol] 4.64 10*6/uL 4.2-5.4 [facility] Rubella immune status determ ination by IgG antibody assayOrdered By: Reina Romero on 09-10-2024 Rubella IgG Antibody REAC Nonreactive [facility] Comment on above: Antibody Result: Int erpretationNon-Reactive: Non-ImmuneReactive: ImmuneThe following results were obtained with the [employer] Rubella IgG assay. Results from assays of other manufacturers cannot be used interchangeably. Serum creatinine measurement (mass/volume)Ordered By: Reina Romero on 09-10-2024 Creatinine [Mass/Vol] 0.58 mg/dL Low 0.70-1.20 [facility] Serum globulin measurementOr dered By: Reina Romero on 09-10-2024 Globulin (S) [Mass/Vol] 2.3 g/dL 2.2-4.[address] [facility] Serum glucose measurement (m ass/volume)Ordered By: Reina Romero on 09-10-2024 Glucose [Mass/Vol] 86 mg/dL 70-99 [facility] Serum or plasma alanine isabel otransferase (ALT) measurementOrdered By: Reina Romero on 09-10-2024 ALT [Catalytic activity/Vol] 22 U/L <35 [facility] Serum or plasma albumin jazmine urement (mass/volume)Ordered By: Reina Romero on 09-10-2024 Albumin [Mass/Vol] 4.4 g/dL 3.5-5.0 [facility] Serum or plasma albumin/glob ulin mass ratioOrdered By: Reina Romero on 09-10-2024 Albumin/Globulin [Mass ratio] 1.9 {ratio} 0.9-2.4 [facility] Serum or plasma alkaline molly sphatase measurementOrdered By: Reina Romero on 09-10-2024 ALP [Catalytic activity/Vol] 60 U/L 35-104 [facility] Serum or plasma calcium jazmine urement (mass/volume)Ordered By: Reina Romero on 09-10-2024 Calcium [Mass/Vol] 9.6 mg/dL 7.6-11.0 [facility] Serum or plasma urea nitroge n measurement (mass/volume)Ordered By: Reina Romero on 09-10-2024 Urea nitrogen [Mass/Vol] 10 mg/dL 4-19 [facility] Sodium levelOrdered By: Bernadine Romero on 09-10-2024 Sodium [Moles/Vol] 139 mmol/L 133-145 [facility] T. pallidum abOrdered By: Wade Romero on 09-10-2024 Syphilis Total Antibody Non-Reactive Nonreactiv e [facility] Total proteinOrdered By: Eleonora Romero on 09-10-2024 Protein [Mass/Vol] 6.7 g/dL 5.9-8.4 [facility] Type AND Screenon 09-10-2024 Ab SCREEN GEL Negative Normal [facility] Comment on above: Order Comment: PN Performed By: #### L 509.4006, L3890.6301, L3890.6006, L100.0100, L500.4050, BTS, L509.8002, L900.0098, L501.9985, L3890.6102 ####[facility] [address] [place], [address] White blood cell (WBC) count Ordered By: Reina Romero on 09-10-2024 WBC (Bld) [#/Vol] 7.2 10*3/uL 4.4-11.0 [facility] Laboratory - Chemistry and C hemistry - challengeOrdered By: Lawson Parry on 08-26-2024 Glucose Ql (U) Negative [facility] Laboratory - UrinalysisOrder ed By: Lawson Parry on 08-26-2024 Protein Ql (U) Negative [facility] Office Visit Reporton 08-26-2024 [facility] Office Visit Report Normal [facility] Wound Cultureon 08-23-2024 WC Normal [facility] Comment on above: Performed By: #### M 100.2000, M100.3000 ####[facility] [address] [place], [address] Urine Cultureon 08-16-2024 URC Mixed Gram Positive Organisms [place] Count <1000 MIX[facility] Mixed contaminants. Submit a new specimen if indicated. Normal [facility] Comment on above: Performed By: #### L 501.0900, L7000.1800, M100.2200 ####[facility] [address] [place], [address] Chlamydia/GC GUCCI aptimaon CHLAMY,NUC ACID Negative Normal Negative [facility] Comment on above: Performed By: #### L 501.0900, L7000.1800, M100.2200 ####[facility] [address] [place], [address] GC BY NUC ACID Negative Normal Negative [facility] Comment on above: Result Comment: Perf ormed at: =G - [facility] [address] [place], [place] [id number] Director: Rachel Smallwood MD, Phone: [phone] Performed By: #### L 501.0900, L7000.1800, M100.2200 ####[facility] [address] [place], [place], [address] Gram Stainon 08-14-2024 GS vaginal inclusion cyst Gram Stain 1+ Epithelial cells 1+ Gram positive rods Normal [facility] Comment on above: Performed By: #### M 100.2000, M100.3000 ####[facility] [address] [place], [place], [id number] C. trachomatis rRNA GUCCI+prob e Ql (Unsp spec)Ordered By: Reina Romero on 08-13-2024 Chlamydia DNA (GUCCI) Negative Negative [facility] Chlamydia trachomatis rRNA d etection by probe and target amplification methodOrdered By: Reina Romero on 08-13-2024 C. trachomatis rRNA GUCCI+probe Ql (Unsp spec) Negative Negative [facility] Gram stainOrdered By: Nicolasa Romero on 08-13-2024 Microscopic observation Gram stain Nom (Unsp spec) [facility] Neisseria gonorrhoeae nuclei c acid detection by amplified probe techniqueOrdered By: Reina Romero on 08-13-2024 N. gonorrhoeae DNA GUCCI+probe Ql (Unsp spec) Negative Negative [facility] Comment on above: Performed at: =G - [facility] [address] [place], [place] [id number] Director: Rachel Smallwood MD, Phone: [phone] [facility] Office Visit Reporton 08-13-2024 [facility] Office Visit Report Normal [facility] Protein+Creatinine Ratio,Uri neon 08-13-2024 PROT:CRE RATIO 90 mg/g CRE Normal 0-200 [facility] Comment on above: Performed By: #### L 501.0900, L7000.1800, M100.2200 ####[facility] [address] [place], [address] Protein (U) [Mass/Vol] 8.8 mg/dL Normal <11.9 [facility] Comment on above: Performed By: #### L 501.0900, L7000.1800, M100.2200 ####[facility] [address] [place], [address] UR CREAT 98.30 mg/dL Normal NO RANGE EST. [facility] Comment on above: Performed By: #### L 501.0900, L7000.1800, M100.2200 ####[facility] [address] [facility] [place], [address] Protein/Creatinine (U) [Mass ratio]Ordered By: Reina Romero on 08-13-2024 Urine Protein/Creatinine Ratio 90 mg/g CRE 0-200 [facility] Random urine protein measure mentOrdered By: Reina Romero on 08-13-2024 Protein (U) [Mass/Vol] 8.8 mg/dL 0.0-11.8 [facility] Routine wound cultureOrdered By: Reina Romero on 08-13-2024 Wound Culture Streptococcus sanguinis Abnormal [facility] Wound Culture Presumptive C albicans Abnormal [facility] Wound Culture Actinomyces naeslundii Abnormal [facility] Urine creatinine measurement (mass/volume)Ordered By: Reina Romero on 08-13-2024 Creatinine (U) [Mass/Vol] 98.30 mg/dL NO RANGE EST. [facility] Urine cultureOrdered By: Eleonora Romero on 08-13-2024 Bacteria identified Cx Nom (U) Positive Abnormal [facility] Urine protein/creatinine mas s ratioOrdered By: Reina Romero on 08-13-2024 Protein/Creatinine (U) [Mass ratio] 90 mg/g CRE 0-200 [facility] Gastroenterology Visit Repor ton 07-08-2024 Gastroenterology Visit Report Normal [facility] Chlamydia/GC GUCCI aptimaon CHLAMY,NUC ACID Negative Normal Negative [facility] Comment on above: Performed By: #### L 7000.1800, M100.2000, M100.3200, M100.2200 ####[facility] [address] [place], [address] GC BY NUC ACID Negative Normal Negative [facility] Comment on above: Result Comment: Perf ormed at: =G - [facility] [address] [place] [id number] Director: Rachel Smallwood MD, Phone: [phone] Performed By: #### L 0.1800, M100.2000, M100.3200, M100.2200 ####[facility] [address] [place], [address] Genital Culture Comprehensiv coleman 06-27-2024 VAC Reason for Exam: vaginal discharge Normal vaginal yulia isolated. No yeast, Gardnerella, Neisseria or beta-hemolytic Streptococcus isolated. Normal [facility] Comment on above: Performed By: #### L 0.1800, M100.2000, M100.3200, M100.2200 ####[facility] [address] [place], [address] Urine Cultureon 06-27-2024 URC Culture exhibits no growth. Normal [facility] Comment on above: Performed By: #### L 0.1800, M100.2000, M100.3200, M100.2200 ####[facility] [address] [place], [address] C. trachomatis rRNA GUCCI+prob e Ql (Unsp spec)Ordered By: Ivett Marquez on 06-26-2024 Chlamydia DNA (GUCCI) Negative Negative [facility] Genital cultureOrdered By: Ernestina Marquez on 06-26-2024 Genital Culture Neisseria or beta-hemolytic Streptococcus isolated. [facility] Gram Stainon 06-26-2024 GS Reason for Exam: vaginal discharge Gram Stain 4+ Gram variable christoph Rare Gram positive rods No White Blood Cells Score = 8 Interpretation: 0-3 Normal, 4-6 Intermediate, 7-10 Positive BV Normal [facility] Comment on above: Performed By: #### L 7000.1800, M100.2000, M100.3200, M100.2200 ####[facility] [address] [place], [address] Gram stainOrdered By: Ivett Marquez on 06-26-2024 Microscopic observation Gram stain Nom (Unsp spec) [facility] Laboratory - Chemistry and C hemistry - challengeon 06-26-2024 Bilirubin Ql (U) Negative [facility] Glucose Ql (U) Negative [facility] Ketones Ql (U) Negative [facility] pH (U) 5 [pH] [facility] Specific gravity (U) [Rel density] 1.010 [facility] Urobilinogen (U) [Mass/Vol] Negative [facility] Laboratory - Hematology and Cell countson 06-26-2024 Hemoglobin Ql (U) Negative [facility] Laboratory - Specimen inform ationon 06-26-2024 Clarity (U) Clear [facility] Color (U) Yellow [facility] Laboratory - Urinalysison Nitrite Ql (U) Negative [facility] Protein Ql (U) Negative [facility] Neisseria gonorrhoeae nuclei c acid detection by amplified probe techniqueOrdered By: Ivett Marquez on 06-26-2024 N. gonorrhoeae DNA GUCCI+probe Ql (Unsp spec) Negative Negative [facility] Comment on above: Performed at: =[address] [id number] Director: Rachel Smallwood MD, Phone: [phone] No Panel Informationon 06-26 POC Trichomonas (Rapid) Negative [facility] Urine Leukocytes Positive [facility] Urine Non-Hemolyzed Blood [facility] Visit Reporton 06-26-2024 [facility] Visit Report Normal [facility] Urine cultureOrdered By: Mak Marquez on 06-26-2024 Bacteria identified Cx Nom (U) Culture exhibits no growth. [facility] Gastroenterology Visit Repor ton 06-24-2024 Gastroenterology Visit Report Normal [facility] Colonoscopy Reporton Colonoscopy Report Normal [facility] MR/POSTOP.ANEon 06-11-2024 MR/POSTOP.ANE Normal [facility] MR/SAZRNEHP1xt 06-11-2024 MR/POSTOPAN2 Normal [facility] ,Urineon 06-11-2024 Beta HCG ( test) Ql (U) Negative Normal [facility] Comment on above: Result Comment: Very dilute urine specimens, as indicated by a low specificgravity, may not contain technology sales representative levels of hCG.If is still suspected, a first morning urinespecimen should be collected 48 hours later and tested. Performed By: #### L 400.7600 ####[facility] [address] [place], [address] Urine testOrdered By: Jose Yanez on 06-11-2024 HCG ( test) Ql (U) Negative [facility] Comment on above: Very dilute urine sp ecimens, as indicated by a low specificgravity, may not contain technology sales representative levels of hCG. If is still suspected, a first morning urinespecimen should be collected 48 hours later and tested. Inital Evaluation (1) - PTon 05-27-2024 Inital Evaluation (1) - PT Normal [facility] Celiac Disease Profileon ENDOMYSIAL IGA Negative Normal Negative [facility] Comment on above: Order Comment: N Performed By: #### L 3410.2400, L503.6150, L503.6075, L3100.1850, L3100.3425, L504.2610, L503.6550, L100.9950, L100.0100 ####[facility] [address] [place], [place], [id number] tTG IGA <2 Normal 0-3 [facility] Comment on above: Order Comment: N Result Comment: Nega tive 0 - 3 Weak Positive 4 - 10 Positive >10 Tissue Transglutaminase (tTG) has been identified as the endomysial antigen. Studies have demonstr- ated that endomysial IgA antibodies have over 99% specificity for gluten sensitive enteropathy. Performed By: #### L 3410.2400, L503.6150, L503.6075, L3100.1850, L3100.3425, L504.2610, L503.6550, L100.9950, L100.0100 ####[facility] [address] [place], [place], [id number] tTG IGG 3 U/mL Normal 0-5 [facility] Comment on above: Order Comment: N Result Comment: Nega tive 0 - 5 Weak Positive 6 - 9 Positive >9 Performed By: #### L 3410.2400, L503.6150, L503.6075, L3100.1850, L3100.3425, L504.2610, L503.6550, L100.9950, L100.0100 ####[facility] [address] [place], [place], [id number] Haptoglobinon 05-14-2024 HAPTOGLOBIN 86 mg/dL Normal 33-278 [facility] Comment on above: Order Comment: N Result Comment: Perf ormed at: - [facility] [place] [id number] Director: Sukhdev Cullen PhD, Phone: [phone] Performed By: #### L 3410.2400, L503.6150, L503.6075, L3100.1850, L3100.3425, L504.2610, L503.6550, L100.9950, L100.0100 ####[facility] [address] [place], [place], [id number] DELIA + Protein Elect, Serumon 05-14-2024 Albumin [Mass/Vol] 3.9 g/dL Normal 2.9-4.4 [facility] Comment on above: Order Comment: N Performed By: #### L 3410.2400, L503.6150, L503.6075, L3100.1850, L3100.3425, L504.2610, L503.6550, L100.9950, L100.0100 ####[facility] [address] [place], [phone]) Albumin/Globulin [Mass ratio] 1.6 {ratio} Normal 0.7-1.7 [facility] Comment on above: Order Comment: N Performed By: #### L 3410.2400, L503.6150, L503.6075, L3100.1850, L3100.3425, L504.2610, L503.6550, L100.9950, L100.0100 ####[facility] [address] [place], [phone]) YURIR-2-OIRX 0.2 g/dL Normal 0.0-0.4 [facility] Comment on above: Order Comment: N Performed By: #### L 3410.2400, L503.6150, L503.6075, L3100.1850, L3100.3425, L504.2610, L503.6550, L100.9950, L100.0100 ####[facility] [address] [place], [address](543) SAIJY-2-NAFP 0.6 g/dL Normal 0.4-1.0 [facility] Comment on above: Order Comment: N Performed By: #### L 3410.2400, L503.6150, L503.6075, L3100.1850, L3100.3425, L504.2610, L503.6550, L100.9950, L100.0100 ####[facility] [address] [place], [phone]) BETA GLOBULIN 0.9 g/dL Normal 0.7-1.3 [facility] Comment on above: Order Comment: N Performed By: #### L 3410.2400, L503.6150, L503.6075, L3100.1850, L3100.3425, L504.2610, L503.6550, L100.9950, L100.0100 ####[facility] [address] [place], [address](287) GAMMA GLOBULIN 0.9 g/dL Normal 0.4-1.8 [facility] Comment on above: Order Comment: N Performed By: #### L 3410.2400, L503.6150, L503.6075, L3100.1850, L3100.3425, L504.2610, L503.6550, L100.9950, L100.0100 ####[facility] [address] [place], [address] Globulin (S) [Mass/Vol] 2.6 g/dL Normal 2.2-3.[address] [facility] Comment on above: Order Comment: N Performed By: #### L 3410.2400, L503.6150, L503.6075, L3100.1850, L3100.3425, L504.2610, L503.6550, L100.9950, L100.0100 ####[facility] [address] [place], [address] DELIA RESULT,S Comment Normal . [facility] Comment on above: Order Comment: N Result Comment: No m onoclonality detected. Performed By: #### L 3410.2400, L503.6150, L503.6075, L3100.1850, L3100.3425, L504.2610, L503.6550, L100.9950, L100.0100 ####[facility] [address] [place], [address] IMMUNOGLOB A QN 76 mg/dL Low 87-352 [facility] Comment on above: Order Comment: N Performed By: #### L 3410.2400, L503.6150, L503.6075, L3100.1850, L3100.3425, L504.2610, L503.6550, L100.9950, L100.0100 ####[facility] [address] [place], [address] IMMUNOGLOB G QN 922 mg/dL Normal 586-1602 [facility] Comment on above: Order Comment: N Performed By: #### L 3410.2400, L503.6150, L503.6075, L3100.1850, L3100.3425, L504.2610, L503.6550, L100.9950, L100.0100 ####[facility] [address] [place], [place], [phone]) IMMUNOGLOB M QN 132 mg/dL Normal 26-217 [facility] Comment on above: Order Comment: N Performed By: #### L 3410.2400, L503.6150, L503.6075, L3100.1850, L3100.3425, L504.2610, L503.6550, L100.9950, L100.0100 ####[facility] [address] [place], [place], [id number] M-Isra Not Observed Normal Not Observed [facility] Comment on above: Order Comment: N Performed By: #### L 3410.2400, L503.6150, L503.6075, L3100.1850, L3100.3425, L504.2610, L503.6550, L100.9950, L100.0100 ####[facility] [address] [place], [place], [phone]) NOTE: Comment Normal . [facility] Comment on above: Order Comment: N Result Comment: Prot ein electrophoresis scan will follow via computer,mail, or maintenance plumber delivery. Performed By: #### L 3410.2400, L503.6150, L503.6075, L3100.1850, L3100.3425, L504.2610, L503.6550, L100.9950, L100.0100 ####[facility] [address] [place], [place], [phone]) Protein [Mass/Vol] 6.5 g/dL Normal 6.0-8.5 [facility] Comment on above: Order Comment: N Performed By: #### L 3410.2400, L503.6150, L503.6075, L3100.1850, L3100.3425, L504.2610, L503.6550, L100.9950, L100.0100 ####[facility] [address] [place], [address] CBC W/Diff, Automatedon 11-0 1-2023 Absolute Lymph 1.29 X10 3/uL Normal 0.83-4.51 [facility] Comment on above: Performed By: #### L 3410.2400, L503.6150, L503.6075, L3100.1850, L3100.3425, L504.2610, L503.6550, L100.9950, L100.0100 ####[facility] [address] [place], [address] Absolute Neut 2.6 X10 3/uL Normal 2.0-7.7 [facility] Comment on above: Performed By: #### L 3410.2400, L503.6150, L503.6075, L3100.1850, L3100.3425, L504.2610, L503.6550, L100.9950, L100.0100 ####[facility] [address] [place], [address] Basophils/100 WBC (Bld) 0.9 % Normal 0-[address] [facility] Comment on above: Performed By: #### L 3410.2400, L503.6150, L503.6075, L3100.1850, L3100.3425, L504.2610, L503.6550, L100.9950, L100.0100 ####[facility] [address] [place], [address] Eosinophils/100 WBC (Bld) 3.8 % Normal 0-5 [facility] Comment on above: Performed By: #### L 3410.2400, L503.6150, L503.6075, L3100.1850, L3100.3425, L504.2610, L503.6550, L100.9950, L100.0100 ####[facility] [address] [place], [phone]) Erythrocyte distribution width (RBC) [Ratio] 13.4 % Normal 11.6-14.6 [facility] Comment on above: Performed By: #### L 3410.2400, L503.6150, L503.6075, L3100.1850, L3100.3425, L504.2610, L503.6550, L100.9950, L100.0100 ####[facility] [address] [place], [phone]) Hematocrit (Bld) [Volume fraction] 39.3 % Normal 37-47 [facility] Comment on above: Performed By: #### L 3410.2400, L503.6150, L503.6075, L3100.1850, L3100.3425, L504.2610, L503.6550, L100.9950, L100.0100 ####[facility] [address] [facility] [place], [address](824) Hemoglobin (Bld) [Mass/Vol] 13.0 g/dL Normal 12.0-15.0 [facility] Comment on above: Performed By: #### L 3410.2400, L503.6150, L503.6075, L3100.1850, L3100.3425, L504.2610, L503.6550, L100.9950, L100.0100 ####[facility] [address] [place], [address]([phone] IG% 0.700 Normal 0.0-0.9 [facility] Comment on above: Result Comment: IG% - Immature Granulocytes (promyelocytes, myelocytes andmetamyelocytes) > 1% indicates that a LEFT SHIFT is Present. Performed By: #### L 3410.2400, L503.6150, L503.6075, L3100.1850, L3100.3425, L504.2610, L503.6550, L100.9950, L100.0100 ####[facility] [address] [place], [address] Lymphocytes/100 WBC (Bld) 29.1 % Normal 19-41 [facility] Comment on above: Performed By: #### L 3410.2400, L503.6150, L503.6075, L3100.1850, L3100.3425, L504.2610, L503.6550, L100.9950, L100.0100 ####[facility] [address] [place], [address] MCH (RBC) [Entitic mass] 29.5 pg Normal 27.0-32.0 [facility] Comment on above: Performed By: #### L 3410.2400, L503.6150, L503.6075, L3100.1850, L3100.3425, L504.2610, L503.6550, L100.9950, L100.0100 ####[facility] [address] [place], [address] MCHC (RBC) [Mass/Vol] 33.1 g/dL Normal 32-36 [facility] Comment on above: Performed By: #### L 3410.2400, L503.6150, L503.6075, L3100.1850, L3100.3425, L504.2610, L503.6550, L100.9950, L100.0100 ####[facility] [address] [place], [address] MCV (RBC) [Entitic vol] 89.1 fL Normal 81-[address] [facility] Comment on above: Performed By: #### L 3410.2400, L503.6150, L503.6075, L3100.1850, L3100.3425, L504.2610, L503.6550, L100.9950, L100.0100 ####[facility] [address] [place], [address] Monocytes/100 WBC (Bld) 7.2 % Normal 0-[address] [facility] Comment on above: Performed By: #### L 3410.2400, L503.6150, L503.6075, L3100.1850, L3100.3425, L504.2610, L503.6550, L100.9950, L100.0100 ####[facility] [address] [place], [address] Neutrophils/100 WBC (Bld) 58.3 % Normal 47-70 [facility] Comment on above: Performed By: #### L 3410.2400, L503.6150, L503.6075, L3100.1850, L3100.3425, L504.2610, L503.6550, L100.9950, L100.0100 ####[facility] [address] [place], [place], [phone]) Nucleated RBC (Bld) [#/Vol] 0 10*3/uL Normal 0-5 [facility] Comment on above: Performed By: #### L 3410.2400, L503.6150, L503.6075, L3100.1850, L3100.3425, L504.2610, L503.6550, L100.9950, L100.0100 ####[facility] [address] [place], [address] Platelet mean volume (Bld) [Entitic vol] 9.3 fL Normal 6.2-12.0 [facility] Comment on above: Performed By: #### L 3410.2400, L503.6150, L503.6075, L3100.1850, L3100.3425, L504.2610, L503.6550, L100.9950, L100.0100 ####[facility] [address] [place], [address] Platelets (Bld) [#/Vol] 291 10*3/uL Normal 150-450 [facility] Comment on above: Performed By: #### L 3410.2400, L503.6150, L503.6075, L3100.1850, L3100.3425, L504.2610, L503.6550, L100.9950, L100.0100 ####[facility] [address] [place], [address] RBC (Bld) [#/Vol] 4.41 10*6/uL Normal 4.2-5.4 [facility] Comment on above: Performed By: #### L 3410.2400, L503.6150, L503.6075, L3100.1850, L3100.3425, L504.2610, L503.6550, L100.9950, L100.0100 ####[facility] [address] [place], [address] RDW SD 43.7 fl Normal 35.1-43.9 [facility] Comment on above: Performed By: #### L 3410.2400, L503.6150, L503.6075, L3100.1850, L3100.3425, L504.2610, L503.6550, L100.9950, L100.0100 ####[facility] [address] [place], [address] WBC (Bld) [#/Vol] 4.4 10*3/uL Normal 4.4-11.0 [facility] Comment on above: Performed By: #### L 3410.2400, L503.6150, L503.6075, L3100.1850, L3100.3425, L504.2610, L503.6550, L100.9950, L100.0100 ####[facility] [address] [place], [place], [address] Ferritinon 05-10-2024 Ferritin [Mass/Vol] 88 ng/mL Normal 8-252 [facility] Comment on above: Order Comment: 1 Performed By: #### L 3410.2400, L503.6150, L503.6075, L3100.1850, L3100.3425, L504.2610, L503.6550, L100.9950, L100.0100 ####[facility] [address] [place], [place], [address] Ironon 05-10-2024 Iron [Mass/Vol] 213 ug/dL High 50-170 [facility] Comment on above: Order Comment: 1 Performed By: #### L 3410.2400, L503.6150, L503.6075, L3100.1850, L3100.3425, L504.2610, L503.6550, L100.9950, L100.0100 ####[facility] [address] [place], [place], [id number] Iron Binding Capacity,Totalo n 05-10-2024 TIBC 279 ug/dL Normal 250-450 [facility] Comment on above: Order Comment: 1 Performed By: #### L 3410.2400, L503.6150, L503.6075, L3100.1850, L3100.3425, L504.2610, L503.6550, L100.9950, L100.0100 ####[facility] [address] [place], [address] LDHon 05-10-2024 LDH 161 U/L Normal 84-246 [facility] Comment on above: Order Comment: 1 Performed By: #### L 3410.2400, L503.6150, L503.6075, L3100.1850, L3100.3425, L504.2610, L503.6550, L100.9950, L100.0100 ####[facility] [address] [place], [address] [facility] Office Visit Reporton 05-10-2024 [facility] Office Visit Report Normal [facility] Retic Panelon 05-10-2024 IM RET FRACTION 9.90 Normal 3.00-15.90 [facility] Comment on above: Performed By: #### L 3410.2400, L503.6150, L503.6075, L3100.1850, L3100.3425, L504.2610, L503.6550, L100.9950, L100.0100 ####[facility] [address] [place], [address] RET-HE 34.1 pg Normal 30-35 [facility] Comment on above: Performed By: #### L 3410.2400, L503.6150, L503.6075, L3100.1850, L3100.3425, L504.2610, L503.6550, L100.9950, L100.0100 ####[facility] [address] [place], [address] Retic Count 2.28 High 0.5-1.5 [facility] Comment on above: Performed By: #### L 3410.2400, L503.6150, L503.6075, L3100.1850, L3100.3425, L504.2610, L503.6550, L100.9950, L100.0100 ####[facility] [address] [place], [address] Gastroenterology Visit Repor ton 04-23-2024 Gastroenterology Visit Report Normal [facility] Visit Reporton 03-21-2024 [facility] Office Visit Report Normal [facility] AST(SGOT)on 03-19-2024 AST [Catalytic activity/Vol] 8 U/L Low 15-37 [facility] Comment on above: Performed By: #### L 501.0900, L501.4100, L501.1105, L501.4405, L501.1400 ####[facility] [address] [place], [address] Alanine Aminotransferas (SGP T)on 03-19-2024 ALT [Catalytic activity/Vol] 9 U/L Low 13-56 [facility] Comment on above: Performed By: #### L 501.0900, L501.4100, L501.1105, L501.4405, L501.1400 ####[facility] [address] [place], [address] CBC W/Diff, Automatedon 03-10 PLT EST ADEQUATE Normal ADEQ [facility] Comment on above: Performed By: #### L 100.0100, BTS ####[facility] [address] [place], [address] Discharge Instructionon 03-10 Discharge Instruction Normal [facility] H AND P Exam - OB/GYNon 03-10 H&P Exam - PICKLE MA[employer]ER Normal [facility] L509.8000on 03-19-2024 Syphilis Abs Non-Reactive Normal [facility] Comment on above: Performed By: #### L 509.8000 ####[facility] [address] [place], [address] Operative Reporton Operative Report Normal [facility] Protein+Creatinine Ratio,Uri neon 03-19-2024 PROT:CRE RATIO 316 mg/g CRE High 0-200 [facility] Comment on above: Performed By: #### L 501.0900, L501.4100, L501.1105, L501.4405, L501.1400 ####[facility] [address] [place], [address] Protein (U) [Mass/Vol] 25.8 mg/dL High <11.9 [facility] Comment on above: Performed By: #### L 501.0900, L501.4100, L501.1105, L501.4405, L501.1400 ####[facility] [address] [place], [address] UR CREAT 81.60 mg/dL Normal NO RANGE EST. [facility] Comment on above: Performed By: #### L 501.0900, L501.4100, L501.1105, L501.4405, L501.1400 ####[facility] [address] [place], [address] Serum Creatinine AND GFRon 0 03-19-2024 Creatinine [Mass/Vol] 0.54 mg/dL Low 0.55-1.02 [facility] Comment on above: Result Comment: The validity of the calculated GFR GFRAA in patients over70 years has not been determined. Clinical correlation isessential. Performed By: #### L 501.0900, L501.4100, L501.1105, L501.4405, L501.1400 ####[facility] [address] [place], [address] ECRCL 159.36 ml/min Normal [facility] Comment on above: Performed By: #### L 501.0900, L501.4100, L501.1105, L501.4405, L501.1400 ####[facility] [address] [place], [address] EST GFR - AA 166 mL/min Normal >60 [facility] Comment on above: Result Comment: Afri can Bol[place]ian GFR Calc Performed By: #### L 501.0900, L501.4100, L501.1105, L501.4405, L501.1400 ####[facility] [address] [place], [address] GFR/1.73 sq M.predicted among non-blacks MDRD (S/P/Bld) [Vol rate/Area] 137 mL/min/{1.73_m2} Normal >60 [facility] Comment on above: Result Comment: Non- GFR Calc Performed By: #### L 501.0900, L501.4100, L501.1105, L501.4405, L501.1400 ####[facility] [address] [place], [address] Type AND Screenon 03-19-2024 ABO and Rh group Nom (Bld) Blood group A Rh(D) positive Normal [facility] Comment on above: Order Comment: Labor Performed By: #### L 100.0100, BTS ####[facility] [address] [place], [address] Uric Acidon 03-19-2024 URIC 4.5 mg/dL Normal 2.6-6.0 [facility] Comment on above: Result Comment: The drugs N-Acetylcysteine and Metamizole may falselydepress this assay. Performed By: #### L 501.0900, L501.4100, L501.1105, L501.4405, L501.1400 ####[facility] [address] [place], [address] Genital Culture Comprehensiv coleman 03-13-2024 VAC Reason for Exam: vaginal irritation Presumptive C albicans Amount Growth 3+ Normal [facility] Comment on above: Performed By: #### M 100.1999, M100.3200 ####[facility] [address] [place], [address] Gram Stainon 03-12-2024 GS Reason for Exam: vaginal irritation Gram Stain 4+ Gram positive rods No Gram negative diplococci Score = 0 Interpretation: 0-3 Normal, 4-6 Intermediate, 7-10 Positive BV Normal [facility] Comment on above: Performed By: #### M 100.1999, M100.3200 ####[facility] [address] [place], [address] [facility] Office Visit Reporton 03-12-2024 First [facility] Feeder Office Visit Report Normal [facility] CBC W/Diff, Automatedon 02-08 SMEAR COMMENT SCANNED Normal [facility] Comment on above: Performed By: #### L 100.0100 ####[facility] [address] [place], [address] CBC W/Diff, Automatedon 02-08 PLT EST ADEQUATE Normal ADEQ [facility] Comment on above: Performed By: #### L 100.0100, L500.4050, L501.0900 ####[facility] [address] [place], [address] SMEAR COMMENT SCANNED Normal [facility] Comment on above: Result Comment: Plea note: For this sample, a platelet estimate isprovided rather than a platelet count due to plateletclumping. Other parameters associated with this sample arenot affected by platelet clumping. If a more accurateplatelet count is required, a redraw of the patient will benecessary. Performed By: #### L 100.0100, L500.4050, L501.0900 ####[facility] [address] [place], [address] Comprehensive Metabolic Prof [facility] 03-05-2024 Albumin [Mass/Vol] 2.8 g/dL Low 3.2-5.0 [facility] Comment on above: Performed By: #### L 100.0100, L500.4050, L501.0900 ####[facility] [address] [place], [address] Albumin/Globulin [Mass ratio] 0.8 {ratio} Low 0.9-2.4 [facility] Comment on above: Performed By: #### L 100.0100, L500.4050, L501.0900 ####[facility] [address] [place], [address] ALK P 94 U/L Normal 45-117 [facility] Comment on above: Performed By: #### L 100.0100, L500.4050, L501.0900 ####[facility] [address] [place], [address] ALT [Catalytic activity/Vol] 14 U/L Normal 13-56 [facility] Comment on above: Performed By: #### L 100.0100, L500.4050, L501.0900 ####[facility] [address] [place], [address] AST [Catalytic activity/Vol] 12 U/L Low 15-37 [facility] Comment on above: Performed By: #### L 100.0100, L500.4050, L501.0900 ####[facility] [address] [place], [address] Bilirubin [Mass/Vol] 0.40 mg/dL Normal 0.20-1.00 [facility] Comment on above: Result Comment: For patients on eltrombopag therapy, use of Dimension Otho TBIL is not recommended. Performed By: #### L 100.0100, L500.4050, L501.0900 ####[facility] [address] [place], [address] BUN/CRE 12.5 RATIO Normal 10-20 [facility] Comment on above: Performed By: #### L 100.0100, L500.4050, L501.0900 ####[facility] [address] [place], [address] CA,Total 9.0 mg/dL Normal 8.5-10.1 [facility] Comment on above: Performed By: #### L 100.0100, L500.4050, L501.0900 ####[facility] [address] [place], [address] Chloride [Moles/Vol] 106 mmol/L Normal 98-107 [facility] Comment on above: Performed By: #### L 100.0100, L500.4050, L501.0900 ####[facility] [address] [place], [address] CO2 [Moles/Vol] 23.0 mmol/L Normal 21.0-32.0 [facility] Comment on above: Performed By: #### L 100.0100, L500.4050, L501.0900 ####[facility] [address] [place], [address] Creatinine [Mass/Vol] 0.56 mg/dL Normal 0.55-1.02 [facility] Comment on above: Result Comment: The validity of the calculated GFR GFRAA in patients over70 years has not been determined. Clinical correlation isessential. Performed By: #### L 100.0100, L500.4050, L501.0900 ####[facility] [address] [place], [address] EST GFR - AA 159 mL/min Normal >60 [facility] Comment on above: Result Comment: Afri can [place] GFR Calc Performed By: #### L 100.0100, L500.4050, L501.0900 ####[facility] [address] [place], [address] GAP 9 Normal 5-15 [facility] Comment on above: Performed By: #### L 100.0100, L500.4050, L501.0900 ####[facility] [address] [place], [address] GFR/1.73 sq M.predicted among non-blacks MDRD (S/P/Bld) [Vol rate/Area] 131 mL/min/{1.73_m2} Normal >60 [facility] Comment on above: Result Comment: Non- GFR Calc Performed By: #### L 100.0100, L500.4050, L501.0900 ####[facility] [address] [place], [address] Globulin (S) [Mass/Vol] 3.5 g/dL Normal 2.2-4.2 [facility] Comment on above: Performed By: #### L 100.0100, L500.4050, L501.0900 ####[facility] [address] [place], [address] Glucose [Mass/Vol] 82 mg/dL Normal 74-106 [facility] Comment on above: Performed By: #### L 100.0100, L500.4050, L501.0900 ####[facility] [address] [place], [address] Potassium [Moles/Vol] 3.7 mmol/L Normal 3.5-5.1 [facility] Comment on above: Performed By: #### L 100.0100, L500.4050, L501.0900 ####[facility] [address] [place], [address] Sodium [Moles/Vol] 138 mmol/L Normal 136-145 [facility] Comment on above: Performed By: #### L 100.0100, L500.4050, L501.0900 ####[facility] [address] [place], [address] T PROT 6.3 g/dL Low 6.4-8.2 [facility] Comment on above: Performed By: #### L 100.0100, L500.4050, L501.0900 ####[facility] [address] [place], [address] Urea nitrogen [Mass/Vol] 7 mg/dL Normal 7-18 [facility] Comment on above: Performed By: #### L 100.0100, L500.4050, L501.0900 ####[facility] [address] [place], [address] Protein+Creatinine Ratio,Uri neon 03-05-2024 PROT:CRE RATIO 188 mg/g CRE Normal 0-200 [facility] Comment on above: Performed By: #### L 100.0100, L500.4050, L501.0900 ####[facility] [address] [place], [address] Protein (U) [Mass/Vol] 54.0 mg/dL High <11.9 [facility] Comment on above: Performed By: #### L 100.0100, L500.4050, L501.0900 ####[facility] [address] [place], [address] UR CREAT 288.00 mg/dL Normal NO RANGE EST. [facility] Comment on above: Performed By: #### L 100.0100, L500.4050, L501.0900 ####[facility] [address] [place], [address] (ROM) Rupture Of Membraneson 03-04-2024 ROM Negative Normal Negative [facility] Comment on above: Order Comment: Comme nts: STAT Result Comment: Amni otic fluid not present indicates No Rupture of FetalMembranes at time of specimen collection. Performed By: #### L 205.1000 ####[facility] [address] [place], [address] CBC W/Diff, Automatedon 02-08 Absolute Neut Normal 2.0-7.7 [facility] Comment on above: Result Comment: NO S PECIMEN RECEIVED Performed By: #### L 501.0900, L500.4050, L100.0100 ####[facility] [address] [place], [address] HCT Normal 37-47 [facility] Comment on above: Result Comment: NO S PECIMEN RECEIVED Performed By: #### L 501.0900, L500.4050, L100.0100 ####[facility] [address] [place], [address] HGB Normal 12.0-15.0 [facility] Comment on above: Result Comment: NO S PECIMEN RECEIVED Performed By: #### L 501.0900, L500.4050, L100.0100 ####[facility] [address] [place], [address] MCH Normal 27.0-32.0 [facility] Comment on above: Result Comment: NO S PECIMEN RECEIVED Performed By: #### L 501.0900, L500.4050, L100.0100 ####[facility] [address] [place], [address] MCHC Normal 32-36 [facility] Comment on above: Result Comment: NO S PECIMEN RECEIVED Performed By: #### L 501.0900, L500.4050, L100.0100 ####[facility] [address] [place], [address] MCV Normal 81-99 [facility] Comment on above: Result Comment: NO S PECIMEN RECEIVED Performed By: #### L 501.0900, L500.4050, L100.0100 ####[facility] [address] [place], [address] NEUT% Normal 47-70 [facility] Comment on above: Result Comment: NO S PECIMEN RECEIVED Performed By: #### L 501.0900, L500.4050, L100.0100 ####[facility] [address] [place], [address] PLT Normal 150-450 [facility] Comment on above: Result Comment: NO S PECIMEN RECEIVED Performed By: #### L 501.0900, L500.4050, L100.0100 ####[facility] [address] [place], [address] RBC Normal 4.2-5.4 [facility] Comment on above: Result Comment: NO S PECIMEN RECEIVED Performed By: #### L 501.0900, L500.4050, L100.0100 ####[facility] [address] [place], [address] RDW CV Normal 11.6-14.6 [facility] Comment on above: Result Comment: NO S PECIMEN RECEIVED Performed By: #### L 501.0900, L500.4050, L100.0100 ####[facility] [address] [place], [address] RDW SD Normal 35.1-43.9 [facility] Comment on above: Result Comment: NO S PECIMEN RECEIVED Performed By: #### L 501.0900, L500.4050, L100.0100 ####[facility] [address] [place], [address] WBC Normal 4.4-11.0 [facility] Comment on above: Result Comment: NO S PECIMEN RECEIVED Performed By: #### L 501.0900, L500.4050, L100.0100 ####[facility] [address] [place], [address] Comprehensive Metabolic Prof ilon 03-04-2024 ALB Normal 3.2-5.0 [facility] Comment on above: Result Comment: NO S PECIMEN RECEIVED Performed By: #### L 501.0900, L500.4050, L100.0100 ####[facility] [address] [place], [address] ALK P Normal 45-117 [facility] Comment on above: Result Comment: NO S PECIMEN RECEIVED Performed By: #### L 501.0900, L500.4050, L100.0100 ####[facility] [address] [place], [address] ALT Normal 13-56 [facility] Comment on above: Result Comment: NO S PECIMEN RECEIVED Performed By: #### L 501.0900, L500.4050, L100.0100 ####[facility] [address] [place], [address] AST Normal 15-37 [facility] Comment on above: Result Comment: NO S PECIMEN RECEIVED Performed By: #### L 501.0900, L500.4050, L100.0100 ####[facility] [address] [place], [address] BUN Normal 7-18 [facility] Comment on above: Result Comment: NO S PECIMEN RECEIVED Performed By: #### L 501.0900, L500.4050, L100.0100 ####[facility] [address] [place], [address] BUN/CRE Normal 10-20 [facility] Comment on above: Result Comment: NO S PECIMEN RECEIVED Performed By: #### L 501.0900, L500.4050, L100.0100 ####[facility] [address] [place], [address] CA,Total Normal 8.5-10.1 [facility] Comment on above: Result Comment: NO S PECIMEN RECEIVED Performed By: #### L 501.0900, L500.4050, L100.0100 ####[facility] [address] [place], [address] CL Normal 98-107 [facility] Comment on above: Result Comment: NO S PECIMEN RECEIVED Performed By: #### L 501.0900, L500.4050, L100.0100 ####[facility] [address] [place], [address] CO2 Normal 21.0-32.0 [facility] Comment on above: Result Comment: NO S PECIMEN RECEIVED Performed By: #### L 501.0900, L500.4050, L100.0100 ####[facility] [address] [place], [address] CREAT,SERUM Normal 0.55-1.02 [facility] Comment on above: Result Comment: NO S PECIMEN RECEIVED Performed By: #### L 501.0900, L500.4050, L100.0100 ####[facility] [address] [place], [address] EST GFR Normal >60 [facility] Comment on above: Result Comment: NO S PECIMEN RECEIVED Performed By: #### L 501.0900, L500.4050, L100.0100 ####[facility] [address] [place], [address] EST GFR - AA Normal >60 [facility] Comment on above: Result Comment: NO S PECIMEN RECEIVED Performed By: #### L 501.0900, L500.4050, L100.0100 ####[facility] [address] [place], [address] GAP Normal 5-15 [facility] Comment on above: Result Comment: NO S PECIMEN RECEIVED Performed By: #### L 501.0900, L500.4050, L100.0100 ####[facility] [address] [place], [address] GLU Normal 74-106 [facility] Comment on above: Result Comment: NO S PECIMEN RECEIVED Performed By: #### L 501.0900, L500.4050, L100.0100 ####[facility] [address] [place], [address] Potassium Normal 3.5-5.1 [facility] Comment on above: Result Comment: NO S PECIMEN RECEIVED Performed By: #### L 501.0900, L500.4050, L100.0100 ####[facility] [address] [place], [address] T BILI Normal 0.20-1.00 [facility] Comment on above: Result Comment: NO S PECIMEN RECEIVED Performed By: #### L 501.0900, L500.4050, L100.0100 ####[facility] [address] [place], [address] T PROT Normal 6.4-8.2 [facility] Comment on above: Result Comment: NO S PECIMEN RECEIVED Performed By: #### L 501.0900, L500.4050, L100.0100 ####[facility] [address] [place], [address] Comprehensive Metabolic Profil Normal 136-145 [facility] Comment on above: Result Comment: NO S PECIMEN RECEIVED Performed By: #### L 501.0900, L500.4050, L100.0100 ####[facility] [address] [place], [address] [employer] Office Visit Reporton 03-04-2024 [employer] Feeder Office Visit Report Normal [facility] Protein+Creatinine Ratio,Uri neon 03-04-2024 PROT:CRE RATIO 152 mg/g CRE Normal 0-200 [facility] Comment on above: Performed By: #### L 501.0900, L500.4050, L100.0100 ####[facility] [address] [place], [address] Protein (U) [Mass/Vol] 39.2 mg/dL High <11.9 [facility] Comment on above: Performed By: #### L 501.0900, L500.4050, L100.0100 ####[facility] [address] [place], [address] UR CREAT 258.00 mg/dL Normal NO RANGE EST. [facility] Comment on above: Performed By: #### L 501.0900, L500.4050, L100.0100 ####[facility] [address] [place], [address] Rule out Beta Strep (Grp. B) on 02-28-2024 BONI Group B Beta Streptococcus is not isolated. Normal [facility] Comment on above: Performed By: #### M 100.3400 ####[facility] [address] [place], [address] CBC-Complete Blood Cnt No Di ffon 02-26-2024 PLT TNP Normal 150-450 [facility] Comment on above: Result Comment: José Miguel boston note: For this sample, a platelet estimate isprovided rather than a platelet count due to plateletclumping. Other parameters associated with this sample arenot affected by platelet clumping. If a more accurateplatelet count is required, a redraw of the patient will benecessary. Performed By: #### L 504.2610, L501.1400, L100.0500, L500.4050, L501.0900, L100.4500 ####[facility] [address] [place], [address] Erythrocyte distribution width (RBC) [Ratio] 13.3 % Normal 11.6-14.6 [facility] Comment on above: Performed By: #### L 504.2610, L501.1400, L100.0500, L500.4050, L501.0900, L100.4500 ####[facility] [address] [place], [address] Hematocrit (Bld) [Volume fraction] 33.1 % Low 37-47 [facility] Comment on above: Performed By: #### L 504.2610, L501.1400, L100.0500, L500.4050, L501.0900, L100.4500 ####[facility] [address] [place], [address] Hemoglobin (Bld) [Mass/Vol] 11.0 g/dL Low 12.0-15.0 [facility] Comment on above: Performed By: #### L 504.2610, L501.1400, L100.0500, L500.4050, L501.0900, L100.4500 ####[facility] [address] [place], [address] MCH (RBC) [Entitic mass] 30.5 pg Normal 27.0-32.0 [facility] Comment on above: Performed By: #### L 504.2610, L501.1400, L100.0500, L500.4050, L501.0900, L100.4500 ####[facility] [address] [place], [address] MCHC (RBC) [Mass/Vol] 33.2 g/dL Normal 32-36 [facility] Comment on above: Performed By: #### L 504.2610, L501.1400, L100.0500, L500.4050, L501.0900, L100.4500 ####[facility] [address] [place], [address] MCV (RBC) [Entitic vol] 91.7 fL Normal 81-[address] [facility] Comment on above: Performed By: #### L 504.2610, L501.1400, L100.0500, L500.4050, L501.0900, L100.4500 ####[facility] [address] [place], [address] Platelet mean volume (Bld) [Entitic vol] 11.0 fL Normal 6.2-12.0 [facility] Comment on above: Performed By: #### L 504.2610, L501.1400, L100.0500, L500.4050, L501.0900, L100.4500 ####[facility] [address] [place], [address] RBC (Bld) [#/Vol] 3.61 10*6/uL Low 4.2-5.4 [facility] Comment on above: Performed By: #### L 504.2610, L501.1400, L100.0500, L500.4050, L501.0900, L100.4500 ####[facility] [address] [place], [address] RDW SD 43.6 fl Normal 35.1-43.9 [facility] Comment on above: Performed By: #### L 504.2610, L501.1400, L100.0500, L500.4050, L501.0900, L100.4500 ####[facility] [address] [place], [address] WBC (Bld) [#/Vol] 8.1 10*3/uL Normal 4.4-11.0 [facility] Comment on above: Performed By: #### L 504.2610, L501.1400, L100.0500, L500.4050, L501.0900, L100.4500 ####[facility] [address] [place], [address] Comprehensive Metabolic Prof [facility] 02-26-2024 Albumin [Mass/Vol] 2.5 g/dL Low 3.2-5.0 [facility] Comment on above: Order Comment: 1 Performed By: #### L 504.2610, L501.1400, L100.0500, L500.4050, L501.0900, L100.4500 ####[facility] [address] [place], [address] Albumin/Globulin [Mass ratio] 0.7 {ratio} Low 0.9-2.4 [facility] Comment on above: Order Comment: 1 Performed By: #### L 504.2610, L501.1400, L100.0500, L500.4050, L501.0900, L100.4500 ####[facility] [address] [place], [address] ALK P 78 U/L Normal 45-117 [facility] Comment on above: Order Comment: 1 Performed By: #### L 504.2610, L501.1400, L100.0500, L500.4050, L501.0900, L100.4500 ####[facility] [address] [place], [address] ALT [Catalytic activity/Vol] 14 U/L Normal 13-56 [facility] Comment on above: Order Comment: 1 Performed By: #### L 504.2610, L501.1400, L100.0500, L500.4050, L501.0900, L100.4500 ####[facility] [address] [place], [address] AST [Catalytic activity/Vol] 9 U/L Low 15-37 [facility] Comment on above: Order Comment: 1 Performed By: #### L 504.2610, L501.1400, L100.0500, L500.4050, L501.0900, L100.4500 ####[facility] [address] [place], [address] Bilirubin [Mass/Vol] 0.30 mg/dL Normal 0.20-1.00 [facility] Comment on above: Order Comment: 1 Result Comment: For patients on eltrombopag therapy, use of Dimension Otho TBIL is not recommended. Performed By: #### L 504.2610, L501.1400, L100.0500, L500.4050, L501.0900, L100.4500 ####[facility] [address] [place], [address] BUN/CRE 12.4 RATIO Normal 10-20 [facility] Comment on above: Order Comment: 1 Performed By: #### L 504.2610, L501.1400, L100.0500, L500.4050, L501.0900, L100.4500 ####[facility] [address] [place], [address] CA,Total 8.5 mg/dL Normal 8.5-10.1 [facility] Comment on above: Order Comment: 1 Performed By: #### L 504.2610, L501.1400, L100.0500, L500.4050, L501.0900, L100.4500 ####[facility] [address] [place], [address] Chloride [Moles/Vol] 109 mmol/L High 98-107 [facility] Comment on above: Order Comment: 1 Performed By: #### L 504.2610, L501.1400, L100.0500, L500.4050, L501.0900, L100.4500 ####[facility] [address] [place], [address] CO2 [Moles/Vol] 26.0 mmol/L Normal 21.0-32.0 [facility] Comment on above: Order Comment: 1 Performed By: #### L 504.2610, L501.1400, L100.0500, L500.4050, L501.0900, L100.4500 ####[facility] [address] [place], [address] Creatinine [Mass/Vol] 0.48 mg/dL Low 0.55-1.02 [facility] Comment on above: Order Comment: 1 Result Comment: The validity of the calculated GFR GFRAA in patients over70 years has not been determined. Clinical correlation isessential. Performed By: #### L 504.2610, L501.1400, L100.0500, L500.4050, L501.0900, L100.4500 ####[facility] [address] [place], [address] EST GFR - AA 188 mL/min Normal >60 [facility] Comment on above: Order Comment: 1 Result Comment: Afri can [place] GFR Calc Performed By: #### L 504.2610, L501.1400, L100.0500, L500.4050, L501.0900, L100.4500 ####[facility] [address] [place], [address] GAP 3 Low 5-15 [facility] Comment on above: Order Comment: 1 Performed By: #### L 504.2610, L501.1400, L100.0500, L500.4050, L501.0900, L100.4500 ####[facility] [address] [place], [address] GFR/1.73 sq M.predicted among non-blacks MDRD (S/P/Bld) [Vol rate/Area] 155 mL/min/{1.73_m2} Normal >60 [facility] Comment on above: Order Comment: 1 Result Comment: Non- GFR Calc Performed By: #### L 504.2610, L501.1400, L100.0500, L500.4050, L501.0900, L100.4500 ####[facility] [address] [place], [address] Globulin (S) [Mass/Vol] 3.5 g/dL Normal 2.2-4.2 [facility] Comment on above: Order Comment: 1 Performed By: #### L 504.2610, L501.1400, L100.0500, L500.4050, L501.0900, L100.4500 ####[facility] [address] [place], [address] Glucose [Mass/Vol] 87 mg/dL Normal 74-106 [facility] Comment on above: Order Comment: 1 Performed By: #### L 504.2610, L501.1400, L100.0500, L500.4050, L501.0900, L100.4500 ####[facility] [address] [place], [address] Potassium [Moles/Vol] 3.9 mmol/L Normal 3.5-5.1 [facility] Comment on above: Order Comment: 1 Performed By: #### L 504.2610, L501.1400, L100.0500, L500.4050, L501.0900, L100.4500 ####[facility] [address] [place], [address] Sodium [Moles/Vol] 138 mmol/L Normal 136-145 [facility] Comment on above: Order Comment: 1 Performed By: #### L 504.2610, L501.1400, L100.0500, L500.4050, L501.0900, L100.4500 ####[facility] [address] [place], [address] T PROT 6.0 g/dL Low 6.4-8.2 [facility] Comment on above: Order Comment: 1 Performed By: #### L 504.2610, L501.1400, L100.0500, L500.4050, L501.0900, L100.4500 ####[facility] [address] [place], [address] Urea nitrogen [Mass/Vol] 6 mg/dL Low 7-18 [facility] Comment on above: Order Comment: 1 Performed By: #### L 504.2610, L501.1400, L100.0500, L500.4050, L501.0900, L100.4500 ####[facility] [address] [place], [address] Differential Commenton 02-25 SMEAR COMMENT COMMENT Normal [facility] Comment on above: Result Comment: PLT COUNT NORMAL Performed By: #### L 504.2610, L501.1400, L100.0500, L500.4050, L501.0900, L100.4500 ####[facility] [address] [place], [address] LDHon 02-26-2024 LDH 139 U/L Normal 84-246 [facility] Comment on above: Order Comment: 1 Performed By: #### L 504.2610, L501.1400, L100.0500, L500.4050, L501.0900, L100.4500 ####[facility] [address] [place], [address] OB Triage Progress Noteon OB Triage Progress Note Normal [facility] Office Visit Reporton 02-26-2024 [facility] Office Visit Report Normal [facility] Protein+Creatinine Ratio,Uri neon 02-26-2024 PROT:CRE RATIO 265 mg/g CRE High 0-200 [facility] Comment on above: Performed By: #### L 504.2610, L501.1400, L100.0500, L500.4050, L501.0900, L100.4500 ####[facility] [address] [place], [address] Protein (U) [Mass/Vol] 6.1 mg/dL Normal <11.9 [facility] Comment on above: Performed By: #### L 504.2610, L501.1400, L100.0500, L500.4050, L501.0900, L100.4500 ####[facility] [address] [place], [address] UR CREAT 23.00 mg/dL Normal NO RANGE EST. [facility] Comment on above: Performed By: #### L 504.2610, L501.1400, L100.0500, L500.4050, L501.0900, L100.4500 ####[facility] [address] [place], [address] Uric Acidon 02-26-2024 URIC 3.7 mg/dL Normal 2.6-6.0 [facility] Comment on above: Order Comment: 1 Result Comment: The drugs N-Acetylcysteine and Metamizole may falselydepress this assay. Performed By: #### L 504.2610, L501.1400, L100.0500, L500.4050, L501.0900, L100.4500 ####[facility] [address] [place], [address] OB Triage Progress Noteon OB Triage Progress Note Normal [facility] Office Visit Reporton 02-22-2024 [facility] Office Visit Report Normal [facility] AST(SGOT)on 02-21-2024 AST [Catalytic activity/Vol] 10 U/L Low 15-37 [facility] Comment on above: Performed By: #### L 501.1105, L501.1400, L501.4100, L501.4405, L400.0001, L501.0900, L100.0500 ####[facility] [address] [place], [address] Alanine Aminotransferas (SGP T)on 02-21-2024 ALT [Catalytic activity/Vol] 13 U/L Normal 13-56 [facility] Comment on above: Performed By: #### L 501.1105, L501.1400, L501.4100, L501.4405, L400.0001, L501.0900, L100.0500 ####[facility] [address] [place], [address] CBC W/Diff, Automatedon 02-07 Absolute Lymph Normal 0.83-4.51 [facility] Comment on above: Performed By: #### L 100.0625, L100.0100 ####[facility] [address] [place], [address] Absolute Neut Normal 2.0-7.7 [facility] Comment on above: Performed By: #### L 100.0625, L100.0100 ####[facility] [address] [place], [address] BASO% Normal 0-1 [facility] Comment on above: Performed By: #### L 100.0625, L100.0100 ####[facility] [address] [place], [address] EO% Normal 0-5 [facility] Comment on above: Performed By: #### L 100.0625, L100.0100 ####[facility] [address] [place], [address] HCT Normal 37-47 [facility] Comment on above: Performed By: #### L 100.0625, L100.0100 ####[facility] [address] [place], [address] HGB Normal 12.0-15.0 [facility] Comment on above: Performed By: #### L 100.0625, L100.0100 ####[facility] [address] [place], [address] IG% Normal 0.0-0.9 [facility] Comment on above: Result Comment: IG% - Immature Granulocytes (promyelocytes, myelocytes andmetamyelocytes) > 1% indicates that a LEFT SHIFT is Present. Performed By: #### L 100.0625, L100.0100 ####[facility] [address] [place], [address] LY% Normal 19-41 [facility] Comment on above: Performed By: #### L 100.0625, L100.0100 ####[facility] [address] [place], [address] MCH Normal 27.0-32.0 [facility] Comment on above: Performed By: #### L 100.0625, L100.0100 ####[facility] [address] [place], [address] MCHC Normal 32-36 [facility] Comment on above: Performed By: #### L 100.0625, L100.0100 ####[facility] [address] [place], [address] MCV Normal 81-99 [facility] Comment on above: Performed By: #### L 100.0625, L100.0100 ####[facility] [address] [place], [address] MONO% Normal 0-10 [facility] Comment on above: Performed By: #### L 100.0625, L100.0100 ####[facility] [address] [place], [address] MPV Normal 6.2-12.0 [facility] Comment on above: Performed By: #### L 100.0625, L100.0100 ####[facility] [address] [place], [address] NEUT% Normal 47-70 [facility] Comment on above: Performed By: #### L 100.0625, L100.0100 ####[facility] [address] [place], [address] NUCLEATED RBC Normal 0-5 [facility] Comment on above: Performed By: #### L 100.0625, L100.0100 ####[facility] [address] [place], [address] RBC Normal 4.2-5.4 [facility] Comment on above: Performed By: #### L 100.0625, L100.0100 ####[facility] [address] [place], [address] RDW CV Normal 11.6-14.6 [facility] Comment on above: Performed By: #### L 100.0625, L100.0100 ####[facility] [address] [place], [address] RDW SD Normal 35.1-43.9 [facility] Comment on above: Performed By: #### L 100.0625, L100.0100 ####[facility] [address] [place], [address] WBC Normal 4.4-11.0 [facility] Comment on above: Performed By: #### L 100.0625, L100.0100 ####[facility] [address] [place], [address] BASO# Normal [facility] Comment on above: Performed By: #### L 100.0625, L100.0100 ####[facility] [address] [place], [address] EOS# Normal [facility] Comment on above: Performed By: #### L 100.0625, L100.0100 ####[facility] [address] [place], [address] IG# Normal [facility] Comment on above: Performed By: #### L 100.0625, L100.0100 ####[facility] [address] [place], [address] LYMPH# Normal [facility] Comment on above: Performed By: #### L 100.0625, L100.0100 ####[facility] [address] [place], [address] MONO # Normal [facility] Comment on above: Performed By: #### L 100.0625, L100.0100 ####[facility] [address] [place], [address] Neutrophil # Normal [facility] Comment on above: Performed By: #### L 100.0625, L100.0100 ####[facility] [address] [place], [address] CBC-Complete Blood Cnt No Di ffon 02-21-2024 PLT TNP Normal 150-450 [facility] Comment on above: Result Comment: José Miguel boston note: For this sample, a platelet estimate isprovided rather than a platelet count due to plateletclumping. Other parameters associated with this sample arenot affected by platelet clumping. If a more accurateplatelet count is required, a redraw of the patient will benecessary. Performed By: #### L 501.1105, L501.1400, L501.4100, L501.4405, L400.0001, L501.0900, L100.0500 ####[facility] [address] [place], [address] PLATELET COUNTon 02-21-2024 Platelets (Bld) [#/Vol] 151 10*3/uL Normal 150-450 [facility] Comment on above: Performed By: #### L 100.0625, L100.0100 ####[facility] [address] [place], [address] Protein+Creatinine Ratio,Uri neon 02-21-2024 PROT:CRE RATIO 116 mg/g CRE Normal 0-200 [facility] Comment on above: Performed By: #### L 501.1105, L501.1400, L501.4100, L501.4405, L400.0001, L501.0900, L100.0500 ####[facility] [address] [place], [address] Protein (U) [Mass/Vol] 11.9 mg/dL High <11.9 [facility] Comment on above: Performed By: #### L 501.1105, L501.1400, L501.4100, L501.4405, L400.0001, L501.0900, L100.0500 ####[facility] [address] [place], [address] UR CREAT 103.00 mg/dL Normal NO RANGE EST. [facility] Comment on above: Performed By: #### L 501.1105, L501.1400, L501.4100, L501.4405, L400.0001, L501.0900, L100.0500 ####[facility] [address] [place], [address] Serum Creatinine AND GFRon 0 02-21-2024 Creatinine [Mass/Vol] 0.50 mg/dL Low 0.55-1.02 [facility] Comment on above: Result Comment: The validity of the calculated GFR GFRAA in patients over70 years has not been determined. Clinical correlation isessential. Performed By: #### L 501.1105, L501.1400, L501.4100, L501.4405, L400.0001, L501.0900, L100.0500 ####[facility] [address] [place], [address] ECRCL 170.96 ml/min Normal [facility] Comment on above: Performed By: #### L 501.1105, L501.1400, L501.4100, L501.4405, L400.0001, L501.0900, L100.0500 ####[facility] [address] [place], [address] EST GFR - AA 180 mL/min Normal >60 [facility] Comment on above: Result Comment: Afri can [place] GFR Calc Performed By: #### L 501.1105, L501.1400, L501.4100, L501.4405, L400.0001, L501.0900, L100.0500 ####[facility] [address] [place], [address] GFR/1.73 sq M.predicted among non-blacks MDRD (S/P/Bld) [Vol rate/Area] 149 mL/min/{1.73_m2} Normal >60 [facility] Comment on above: Result Comment: Non- GFR Calc Performed By: #### L 501.1105, L501.1400, L501.4100, L501.4405, L400.0001, L501.0900, L100.0500 ####[facility] [address] [place], [address] Uric Acidon 02-21-2024 URIC 4.5 mg/dL Normal 2.6-6.0 [facility] Comment on above: Result Comment: The drugs N-Acetylcysteine and Metamizole may falselydepress this assay. Performed By: #### L 501.1105, L501.1400, L501.4100, L501.4405, L400.0001, L501.0900, L100.0500 ####[facility] [address] [place], [address] Urinalysis, Completeon 02-20 BACTERIA RARE Normal None Seen [facility] Comment on above: Order Comment: LUCRECIA CTOR TO SPECIFY Performed By: #### L 501.1105, L501.1400, L501.4100, L501.4405, L400.0001, L501.0900, L100.0500 ####[facility] [address] [place], [address] EPI,SQUAMOUS 0-5 SEEN Normal 5-10 [facility] Comment on above: Order Comment: LUCRECIA CTOR TO SPECIFY Performed By: #### L 501.1105, L501.1400, L501.4100, L501.4405, L400.0001, L501.0900, L100.0500 ####[facility] [address] [place], [address] Mucus Ql (Urine sed) 0 SEEN Normal [facility] Comment on above: Order Comment: LUCRECIA CTOR TO SPECIFY Performed By: #### L 501.1105, L501.1400, L501.4100, L501.4405, L400.0001, L501.0900, L100.0500 ####[facility] [address] [place], [address] RBC 0 SEEN Normal 0-5 [facility] Comment on above: Order Comment: LUCRECIA CTOR TO SPECIFY Performed By: #### L 501.1105, L501.1400, L501.4100, L501.4405, L400.0001, L501.0900, L100.0500 ####[facility] [address] [place], [place], [address] WBC 0 SEEN Normal 0-5 [facility] Comment on above: Order Comment: COLLE CTOR TO SPECIFY Performed By: #### L 501.1105, L501.1400, L501.4100, L501.4405, L400.0001, L501.0900, L100.0500 ####[facility] [address] [place], [place], [address] Urgent Care Visit Reporton 0 02-19-2024 Urgent Care Visit Report Normal [facility] Office Visit Reporton 02-13-2024 First Bre[facility] Fe[facility] Office Visit Report Normal [facility] Culture, urineOrdered By: Ajit Moreno on 10-20-2023 Bacteria identified Cx Nom (U) Culture exhibits no growth. [facility] Gram stain for investigation of transfusion reactionOrdered By: Piedad Moreno on 10-20-2023 Microscopic observation Gram stain Nom (Unsp spec) [facility] Laboratory - Chemistry and C hemistry - challengeon 10-20-2023 Bilirubin Ql (U) Negative [facility] Glucose Ql (U) Negative [facility] Ketones Ql (U) Small (15+) [facility] pH (U) 5 [pH] [facility] Specific gravity (U) [Rel density] 1.010 [facility] Urobilinogen (U) [Mass/Vol] Negative [facility] Laboratory - Hematology and Cell countson 10-20-2023 Hemoglobin Ql (U) Negative [facility] Laboratory - Specimen inform ationon 10-20-2023 Clarity (U) Clear [facility] Color (U) Colorless [facility] Laboratory - Urinalysison Nitrite Ql (U) Negative [facility] Protein Ql (U) Negative [facility] No Panel InformationOrdered By: Piedad Moreno on 10-20-2023 Genital Culture Presumptive C albicans [facility] No Panel Informationon 10-19 Urine Leukocytes Negatve [facility] Urine Non-Hemolyzed Blood Negative [facility] Laboratory - Chemistry and C hemistry - challengeon 09-19-2023 Glucose Ql (U) Negative [facility] Laboratory - Urinalysison Protein Ql (U) Negative [facility] Absolute lymphocyte countOrd ered By: Reina Romero on 09-12-2023 Lymphocytes Auto (Unsp spec) [#/Vol] 1.42 10*3/uL 0.83-4.51 [facility] Automated lymphocyte count a s percentage of total leukocytesOrdered By: Reina Romero on 09-12-2023 Lymphocytes/100 WBC Auto (Unsp spec) 23.9 % 19-41 [facility] Basophil percentageOrdered B y: Reina Romero on 09-12-2023 Basophils/100 WBC (Bld) 0.3 % 0-[address] [facility] Bilirubin [Mass/Vol] 0.70 mg/dL 0.20-1.00 [facility] Comment on above: For patients on eltr ombopag therapy, use of Dimension Otho TBIL is not recommended. Chloride [Moles/Vol] 107 mmol/L 98-107 [facility] Eosinophils/100 WBC (Bld) 2.4 % 0-5 [facility] Glucose [Mass/Vol] 67 mg/dL 74-106 [facility] Hemoglobin (Bld) [Mass/Vol] 12.4 g/dL 12.0-15.0 [facility] Monocytes/100 WBC (Bld) 5.2 % 0-[address] [facility] Neutrophils (Bld) [#/Vol] 4.1 10*3/uL 2.0-7.7 [facility] Neutrophils/100 WBC (Bld) 68.0 % 47-70 [facility] Potassium [Moles/Vol] 3.2 mmol/L 3.5-5.1 [facility] Protein [Mass/Vol] 6.9 g/dL 6.4-8.2 [facility] Sodium [Moles/Vol] 139 mmol/L 136-145 [facility] WBC (Bld) [#/Vol] 6.0 10*3/uL 4.4-11.0 [facility] Determination of erythrocyte mean corpuscular volume (MCV)Ordered By: Reina Romero on 09-12-2023 MCV (RBC) [Entitic vol] 87.5 fL 81-[address] [facility] Erythrocyte distribution wid th ratioOrdered By: Reina Romero on 09-12-2023 Erythrocyte distribution width (RBC) [Ratio] 12.5 % 11.6-14.6 [facility] Erythrocyte distribution wid th standard deviationOrdered By: Reina Romero on 09-12-2023 Erythrocyte distribution width (RBC) [Entitic vol] 39.5 fL 35.1-43.9 [facility] HIV 1 and HIV-2 antibody ass ay with HIV-1 p24 antigen detectionOrdered By: Reina Romero on 09-12-2023 HIV 1+2 Ab+HIV1 p24 Ag IA Ql Non-Reactive Nonreactive [facility] Hematocrit Auto (Bld) [Volum e fraction]Ordered By: Reina Romero on 09-12-2023 Hematocrit (Bld) [Volume fraction] 35.7 % 37-47 [facility] Immature granulocytes/100 WB C Auto (Bld)Ordered By: Reina Romero on 09-12-2023 Immature granulocytes/100 WBC (Bld) 0.200 % 0.0-0.9 [facility] Comment on above: IG% - Immature Granu locytes (promyelocytes, myelocytes and metamyelocytes) > 1% indicates that a LEFT SHIFT is Present. Laboratory - Chemistry and C hemistry - challengeOrdered By: Reina Romero on 09-12-2023 Albumin/Globulin [Mass ratio] 1.2 {ratio} 0.9-2.4 [facility] ALP [Catalytic activity/Vol] 46 U/L 45-117 [facility] ALT [Catalytic activity/Vol] 15 U/L 13-56 [facility] CO2 [Moles/Vol] 23.0 mmol/L 21.0-32.0 [facility] Globulin (S) [Mass/Vol] 3.2 g/dL 2.2-4.2 [facility] Urea nitrogen/Creatinine [Mass ratio] 16.5 mg/mg 10-20 [facility] Laboratory - Hematology and Cell countsOrdered By: Reina Romero on 09-12-2023 MCH (RBC) [Entitic mass] 30.4 pg 27.0-32.0 [facility] MCHC (RBC) [Mass/Vol] 34.7 g/dL 32-36 [facility] Nucleated RBC/100 WBC (Bld) [Ratio] 0 % 0-5 [facility] Platelet mean volume (Bld) [Entitic vol] 9.3 fL 6.2-12.0 [facility] Platelets (Bld) [#/Vol] 258 10*3/uL 150-450 [facility] No Panel InformationOrdered By: Reina Romero on 09-12-2023 Estimated GFR (MDRD) Amer 145 mL/min >60 [facility] Comment on above: GFR Calc Estimated GFR (MDRD) Non-Af Amer 119 mL/min >60 [facility] Comment on above: Non- GFR Calc Hepatitis B Surface Antigen Non-Reactive Nonreactive [facility] Hepatitis C Antibody Non-Reactive Nonreactive [facility] Comment on above: Non Reactive: < 0.8 Equivocal: >/= 0.8 to < 1.0 Reactive: >/= 1.0The CDC requires that a reactive/equivocal HCV antibody result be sent out for confirmation. HCV Quant by PCR testing. Miscellaneous Test Comment SEE SCANNED REPORT [facility] Rubella IgG Antibody Reactive Nonreactive [facility] Comment on above: Antibody Results Int erpretation of Immune Status Non Reactive Presumed Non-Immune Equivocal Equivocal Reactive Presumed Immune RBC Auto (Bld) [#/Vol]Ordere d By: Reina Romero on 09-12-2023 RBC (Bld) [#/Vol] 4.08 10*6/uL 4.2-5.4 [facility] Serum Treponema species anti body detectionOrdered By: Reina Romero on 09-12-2023 Treponema sp Ab Ql (S) Non-Reactive [facility] Serum or plasma calcium jazmine urement (mass/volume)Ordered By: Reina Romero on 09-12-2023 Calcium [Mass/Vol] 9.2 mg/dL 8.5-10.1 [facility] Serum or plasma creatinine m easurement (mass/volume)Ordered By: Reina Romero on 09-12-2023 Creatinine [Mass/Vol] 0.61 mg/dL 0.55-1.02 [facility] Comment on above: The validity of the calculated GFR & GFRAA in patients over 70 years has not been determined. Clinical correlation is essential. Serum or plasma urea nitroge n measurement (mass/volume)Ordered By: Reina Romero on 09-12-2023 Urea nitrogen [Mass/Vol] 10 mg/dL 7-18 [facility] Thin prep Papanicolaou smear with manual screeningOrdered By: Reina Romero on 09-12-2023 Thin prep Papanicolaou smear with manual screening 3.7 g/dL 3.2-5.0 [facility] Thin prep Papanicolaou smear with manual screening 11 U/L 15-37 [facility] Thin prep Papanicolaou smear with manual screening 9 5-15 [facility] Chlamydia trachomatis rRNA d etection by probe and target amplification methodOrdered By: Reina Romero on 08-21-2023 C. trachomatis rRNA GUCCI+probe Ql (Unsp spec) Negative Negative [facility] Culture, urineOrdered By: Wade Romero on 08-21-2023 Bacteria identified Cx Nom (U) Culture exhibits no growth. [facility] Bacteria identified Cx Nom (U) Culture exhibits no growth. [facility] Laboratory - Microbiology an d Antimicrobial susceptibilityOrdered By: Reina Romero on 08-21-2023 N. gonorrhoeae DNA GUCCI+probe Ql (Unsp spec) Negative Negative [facility] Comment on above: Performed at: =G - [facility] [address] [id number] Director: Rachel Smallwood MD, Phone: [phone] Thin prep Papanicolaou smear with manual screeningOrdered By: Reina Romero on 08-21-2023 Protein (U) [Mass/Vol] 10.0 mg/dL 0.0-11.8 [facility] Urine creatinine measurement (mass/volume)Ordered By: Reina Romero on 08-21-2023 Creatinine (U) [Mass/Vol] 70.10 mg/dL NO RANGE EST. [facility] Urine protein/creatinine mas s ratioOrdered By: Reina Romero on 08-21-2023 Protein/Creatinine (U) [Mass ratio] 143 mg/g CRE 0-200 [facility] Absolute lymphocyte countOrd ered By: Cholo Smith on 05-26-2023 Lymphocytes Auto (Unsp spec) [#/Vol] 1.71 10*3/uL 0.83-4.51 [facility] Basophil percentageOrdered B y: Cholo Smith on 05-26-2023 Basophils/100 WBC (Bld) 1.1 % 0-[address] [facility] Eosinophils/100 WBC (Bld) 3.6 % 0-5 [facility] Neutrophils (Bld) [#/Vol] 2.5 10*3/uL 2.0-7.7 [facility] Neutrophils/100 WBC (Bld) 52.6 % 47-70 [facility] WBC (Bld) [#/Vol] 4.7 10*3/uL 4.4-11.0 [facility] Blood erythrocytes count (nu mber/volume)Ordered By: Cholo Smith on 05-26-2023 RBC (Bld) [#/Vol] 4.24 10*6/uL 4.2-5.4 [facility] Blood hemoglobin measurement (mass/volume)Ordered By: Cholo Smith on 05-26-2023 Hemoglobin (Bld) [Mass/Vol] 13.4 g/dL 12.0-15.0 [facility] Blood lymphocytes/100 leukoc ytesOrdered By: Cholo Smith on 05-26-2023 Lymphocytes/100 WBC (Bld) 36.3 % 19-41 [facility] Blood monocytes/100 leukocyt esOrdered By: Cholo Smith on 05-26-2023 Monocytes/100 WBC (Bld) 6.2 % 0-[address] [facility] Blood platelet mean volumeOr dered By: Cholo Smith on 05-26-2023 Platelet mean volume (Bld) [Entitic vol] 9.5 fL 6.2-12.0 [facility] Determination of erythrocyte mean corpuscular volume (MCV)Ordered By: Cholo Smith on 05-26-2023 MCV (RBC) [Entitic vol] 92.0 fL 81-[address] [facility] Hematocrit Auto (Bld) [Volum e fraction]Ordered By: Cholo Smith on 05-26-2023 Hematocrit (Bld) [Volume fraction] 39.0 % 37-47 [facility] Iron measurement (mass/mass) Ordered By: Cholo Smith on 05-26-2023 Iron (Unsp spec) [Mass/Mass] 49 ug/dL 50-170 [facility] Laboratory - Hematology and Cell countsOrdered By: Cholo Smith on 05-26-2023 Erythrocyte distribution width (RBC) [Entitic vol] 44.3 fL 35.1-43.9 [facility] Erythrocyte distribution width (RBC) [Ratio] 13.5 % 11.6-14.6 [facility] Immature granulocytes/100 WBC (Bld) 0.200 % 0.0-0.9 [facility] Comment on above: IG% - Immature Granu locytes (promyelocytes, myelocytes and metamyelocytes) > 1% indicates that a LEFT SHIFT is Present. MCH (RBC) [Entitic mass] 31.6 pg 27.0-32.0 [facility] Nucleated RBC/100 WBC (Bld) [Ratio] 0 % 0-5 [facility] MCHC Auto (RBC) [Mass/Vol]Or dered By: Cholo Smith on 05-26-2023 MCHC (RBC) [Mass/Vol] 34.4 g/dL 32-36 [facility] Platelets bldOrdered By: Migdalia Smith on 05-26-2023 Platelets (Bld) [#/Vol] 349 10*3/uL 150-450 [facility] Serum or plasma ferritin esther surement (mass/volume)Ordered By: Cholo Smith on 05-26-2023 Ferritin [Mass/Vol] 11 ng/mL 8-252 [facility] XR Tibia and Fibula - left A P and Lateralon 05-15-2023 IMPRESSION: Negative 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 [facility] Provider, [facility] - 05/15/2023 * * *Final Report* * [...] soft tissues are unremarkable. IMPRESSION IMPRESSION: Negative Hybrid Powertrain Development Engineer: PSCB Transcribe Date/Time: May 15 2023 10:18A Dictated by : JENNI CHINCHILLA MD This examination was interpreted and the report reviewed and electronically signed by: JENNI CHINCHILLA MD on May 15 2023 10:18AM [facility] XR Tibia and Fibula - left A P and LateralOrdered By: Ccf Provider on 05-15-2023 [facility] CNOVon 05-12-2023 CNOV Office Visit (ORMDNA ) MANDI VALENTE ([id number]) 1990 F Date Time Provider Department 05/12/23 10:30 AM KELLY CALABRESE During your visit today, we recorded the following information about you: Kelly Calabrese PA-C 05/12/2023 2:41 PM Signed Kelly Calabrese PA-C Department of Orthopaedics Orthopaedics [address] [address] Dept: [phone] May 12, 2023 SUBJECTIVE: CHIEF COMPLAINT: Established [...] acute abnormality. Full imaging report available in [facility]. ASSESSMENT: S86.384K Strain of calf muscle, left, initial encounter [...] Diagnosis:Strain of calf muscle, left, initial encounter [S83.125X] Order(s):CONSULT TO PHYSICAL THERAPY [9003] Order #: [id number]: 1 FUTURE Prescriptions as of 05/12/2023 - [...] trunk: c (more content not included)... [facility] XR TIBIA FIBULA 2V AP/LAT LT on [...] and soft tissues are unremarkable. IMPRESSION: Negative Hybrid Powertrain Development Engineer: PSCB Transcribe Date/Time: May 15 2023 10:18A Dictated by : JENNI CHINCHILLA MD This examination was interpreted and the report reviewed and electronically signed by: JENNI CHINCHILLA MD on May 15 2023 10:18AM EST [id number] N [facility] XR Tibia and Fibula - left A P and Lateralon 05-12-2023 Radiology Study observation (narrative) [facility] Absolute lymphocyte countOrd ered By: Nicole Rhodes on 03-22-2023 Lymphocytes Auto (Unsp spec) [#/Vol] 1.76 10*3/uL 0.83-4.51 [facility] Basophil percentageOrdered B y: Nicole Rhodes on 03-22-2023 Basophils/100 WBC (Bld) 0.7 % 0-[address] [facility] Bilirubin [Mass/Vol] 0.40 mg/dL 0.20-1.00 [facility] Comment on above: For patients on eltr ombopag therapy, use of Dimension Otho TBIL is not recommended. Chloride [Moles/Vol] 109 mmol/L 98-107 [facility] Cholesterol [Mass/Vol] 134 mg/dL <200 [facility] Comment on above: <200 mg/dL Desirable 200-240 mg/dL Borderline >240 mg/dL High Risk Eosinophils/100 WBC (Bld) 3.8 % 0-5 [facility] Glucose [Mass/Vol] 81 mg/dL 74-106 [facility] Neutrophils (Bld) [#/Vol] 3.5 10*3/uL 2.0-7.7 [facility] Neutrophils/100 WBC (Bld) 60.1 % 47-70 [facility] Potassium [Moles/Vol] 3.7 mmol/L 3.5-5.1 [facility] Protein [Mass/Vol] 6.9 g/dL 6.4-8.2 [facility] Sodium [Moles/Vol] 140 mmol/L 136-145 [facility] Triglyceride [Mass/Vol] 58 mg/dL <199 [facility] Comment on above: The drugs N-Acetylcy steine and Metamizole may falsely depress this assay.Serum Triglycerides Reference Interval Normal <150 mg/dL Borderline high 150 - 199 mg/dL High 200 - 499 mg/dL Very High > or = 500 mg/dL WBC (Bld) [#/Vol] 5.9 10*3/uL 4.4-11.0 [facility] Blood erythrocytes count (nu mber/volume)Ordered By: Nicole Rhodes on 03-22-2023 RBC (Bld) [#/Vol] 3.98 10*6/uL 4.2-5.4 [facility] Blood hemoglobin measurement (mass/volume)Ordered By: Nicole Rhodes on 03-22-2023 Hemoglobin (Bld) [Mass/Vol] 11.0 g/dL 12.0-15.0 [facility] Blood lymphocytes/100 leukoc ytesOrdered By: Nicole Rhodes on 03-22-2023 Lymphocytes/100 WBC (Bld) 30.1 % 19-41 [facility] Blood monocytes/100 leukocyt esOrdered By: Nicole Rhodes on 03-22-2023 Monocytes/100 WBC (Bld) 4.8 % 0-[address] [facility] Blood platelet mean volumeOr dered By: Nicoleelieser Rhodes on 03-22-2023 Platelet mean volume (Bld) [Entitic vol] 10.3 fL 6.2-12.0 [facility] Determination of erythrocyte mean corpuscular volume (MCV)Ordered By: Nicoleelieser Rhodes on 03-22-2023 MCV (RBC) [Entitic vol] 88.2 fL 81-[address] [facility] Hematocrit Auto (Bld) [Volum e fraction]Ordered By: Nicoleelieser Rhodes on 03-22-2023 Hematocrit (Bld) [Volume fraction] 35.1 % 37-47 [facility] Iron measurement (mass/mass) Ordered By: [place] Carmelo on 03-22-2023 Iron (Unsp spec) [Mass/Mass] 33 ug/dL 50-170 [facility] Laboratory - Chemistry and C hemistry - challengeOrdered By: [facility] 03-22-2023 ALP [Catalytic activity/Vol] 45 U/L 45-117 [facility] ALT [Catalytic activity/Vol] 13 U/L 13-56 [facility] CO2 [Moles/Vol] 28.0 mmol/L 21.0-32.0 [facility] Cobalamin (Vitamin B12) [Mass/Vol] 420 pg/mL 211-911 [facility] Globulin (S) [Mass/Vol] 3.0 g/dL 2.2-4.[address] [facility] Urea nitrogen/Creatinine [Mass ratio] 10.5 mg/mg 10-20 [facility] Laboratory - Hematology and Cell countsOrdered By: [place] Carmelo on 03-22-2023 Erythrocyte distribution width (RBC) [Entitic vol] 41.7 fL 35.1-43.9 [facility] Erythrocyte distribution width (RBC) [Ratio] 12.9 % 11.6-14.6 [facility] Immature granulocytes/100 WBC (Bld) 0.500 % 0.0-0.9 [facility] Comment on above: IG% - Immature Granu locytes (promyelocytes, myelocytes and metamyelocytes) > 1% indicates that a LEFT SHIFT is Present. MCH (RBC) [Entitic mass] 27.6 pg 27.0-32.0 [facility] Nucleated RBC/100 WBC (Bld) [Ratio] 0 % 0-5 [facility] MCHC Auto (RBC) [Mass/Vol]Or dered By: Nicole Rhodes on 03-22-2023 MCHC (RBC) [Mass/Vol] 31.3 g/dL 32-36 [facility] No Panel InformationOrdered By: Nicole Rhodes on 03-22-2023 Estimated GFR (MDRD) Amer 111 mL/min >60 [facility] Comment on above: GFR Calc Estimated GFR (MDRD) Non-Af Amer 92 mL/min >60 [facility] Comment on above: Non- GFR Calc Vitamin D 25-Hydroxy 51.8 ng/mL [facility] Comment on above: Vitamin D 25(OH) Sta tus Range Deficiency <20 ng/mL (50nmol/L) Insufficiency 20 - 30 ng/mL (50 - 75 nmol/L) Sufficiency 30 - 100 ng/mL (75 - 250 nmol/L) Toxicity >100 ng/mL (>250 nmol/L) Platelets bldOrdered By: Dory Rhodes on 03-22-2023 Platelets (Bld) [#/Vol] 276 10*3/uL 150-450 [facility] Serum or plasma albumin jazmine urement (mass/volume)Ordered By: Nicole Rhodes on 03-22-2023 Albumin [Mass/Vol] 3.9 g/dL 3.2-5.0 [facility] Serum or plasma albumin/glob ulin mass ratioOrdered By: Nicole Rhodes on 03-22-2023 Albumin/Globulin [Mass ratio] 1.3 {ratio} 0.9-2.4 [facility] Serum or plasma calcium jazmine urement (mass/volume)Ordered By: Nicole Rhodes on 03-22-2023 Calcium [Mass/Vol] 8.8 mg/dL 8.5-10.1 [facility] Serum or plasma cholesterol in HDL measurement (mass/volume)Ordered By: Nicole Rhodes on 03-22-2023 Cholesterol in HDL [Mass/Vol] 52 mg/dL >40 [facility] Comment on above: The drugs N-Acetylcy steine and Metamizole may falsely depress this assay. Reference Range HDL <40 mg/dL Low HDL Cholesterol HDL >or= 60 mg/dL High HDL Cholesterol Serum or plasma cholesterol in VLDL measurement (mass/volume)Ordered By: Nicole Rhodes on 03-22-2023 Cholesterol in VLDL [Mass/Vol] 12 mg/dL 5-40 [facility] Serum or plasma creatinine m easurement (mass/volume)Ordered By: Nicole Rhodes on 03-22-2023 Creatinine [Mass/Vol] 0.76 mg/dL 0.55-1.02 [facility] Comment on above: The validity of the calculated GFR & GFRAA in patients over 70 years has not been determined. Clinical correlation is essential. Serum or plasma ferritin esther surement (mass/volume)Ordered By: Nicole Rhodes on 03-22-2023 Ferritin [Mass/Vol] 5 ng/mL 8-252 [facility] Serum or plasma low density lipoprotein (LDL) cholesterol measurement (mass/volume)Ordered By: Nicole Rhodes on 03-22-2023 Cholesterol in LDL [Mass/Vol] 70 mg/dL 0-130 [facility] Serum or plasma urea nitroge n measurement (mass/volume)Ordered By: [place] Carmelo on 03-22-2023 Urea nitrogen [Mass/Vol] 8 mg/dL 7-18 [facility] Thin prep Papanicolaou smear with manual screeningOrdered By: Nicole Rhodes on 03-22-2023 Thin prep Papanicolaou smear with manual screening 6 U/L 15-37 [facility] Thin prep Papanicolaou smear with manual screening 3 5-15 [facility] Cervical or vagninal specime n microscopic examination by cytology stain (reported asOrdered By: Jenni Coyle on 03-03-2023 Cytology report Cyto stain Doc (Cvx/Vag) Comment . [facility] Comment on above: The Pap smear is [...] DNA Probe+sig amp Ql (Cvx) Negative Negative [facility] Comment on above: This nucleic acid am plification test detects fourteen high-risk HPV types (16,18,31,33,35,39,45,51,52,56,58,59,66,68)without differentiation. Laboratory - CytologyOrdered By: Jenni Coyle on 03-03-2023 Tire Mechanic Cyto stain Nom (Cvx/Vag) [ID] Comment . [facility] Comment on above: Alexa Person, Cyt otechnologist (ASCP) Laboratory - Miscellaneous t estsOrdered By: Jenni Coyle on 03-03-2023 Service comment (Unsp spec) [Interp] Comment . [facility] Comment on above: This liquid based Th inPrep(R) pap test was screened withthe use of an image guided system. Service comment (Unsp spec) [Interp] . . [facility] Liquid-based cerv Pap + CT/G C by GUCCI w reflex to high-risk HPV for ASCUSOrdered By: Jenni Coyle on 03-03-2023 Cytology report Cyto stain.thin prep Doc (Cvx/Vag) Comment . [facility] Comment on above: Criteria not met, HP V Genotype not performed.Performed at: [facility] [id number] [place], [place] [id number] Director: Kamran Banerjee MD, Phone: [phone] at: [place] - [address] [id number] Director: Rachel Smallwood MD, Phone: [phone] at: =G - [facility] [id number] Director: Rachel Smallwood MD, Phone: [phone] No Panel InformationOrdered By: Jenni Coyle on 03-03-2023 Pathology report final diagnosis Narrative Comment . [facility] Comment on above: NEGATIVE FOR INTRAEP ITHELIAL LESION OR MALIGNANCY. CNOVon 03-01-2023 CNOV Office Visit (ORMDNA ) MANDI VALENTE ([id number]) 1990 F Date Time Provider Department 03/01/23 [...] Visit: Pain [78] Follow Up [171] New [[id number]] Primary Visit Diagnosis:Pain of right hip [M25.551] Other Visit D (more content not included)... Normal [facility] XR HIP 3V PELV+ AP/LAT LTon 03-01-2023 [...] pathology. Mild narrowing of both hip joints Hybrid Powertrain Development Engineer: MALOU Transcribe Date/Time: Mar 01 2023 2:33P Dictated by : MONTANA QUIÑONES DO This examination was interpreted and the report reviewed and electronically signed by: MONTANA QUIÑONES DO on Mar 01 2023 2:33PM EST [id number] N [facility] XR Pelvis and Hip - left AP and Lateral frogon 03-01-2023 IMPRESSION: No acute pathology. Mild narrowing of both hip joints Hybrid Powertrain Development Engineer: PSCB Transcribe Date/Time: Mar 01 2023 2:33P Dictated by : MONTANA QUIÑONES DO This examination was interpreted and the report reviewed and electronically signed by: MONTANA QUIÑONES DO on Mar 01 2023 2:33PM EST [facility] * * *Final Report* * * [...] hip: No fractures or dislocations are seen. [facility] Provider, [facility] - 03/01/2023 * * *Final Report* * [...] pathology. Mild narrowing of both hip joints Hybrid Powertrain Development Engineer: MALOU Transcribe Date/Time: Mar 01 2023 2:33P Dictated by : MONTANA QUIÑONES DO This examination was interpreted and the report reviewed and electronically signed by: MONTANA QUIÑONES DO on Mar 01 2023 2:33PM [facility] Radiology Study observation (narrative) [facility] XR Pelvis and Hip - left AP and Lateral frogOrdered By: Ccf Provider on 03-01-2023 [facility] Laboratory - Microbiology an d Antimicrobial susceptibilityon 02-18-2023 S. pyogenes Ag IA Ql (Unsp spec) Negative [facility] CNOVon 12-28-2022 CNOV Office Visit (ORMDNA ) MANDI VALENTE ([id number]) 1990 F Date Time Provider Department 12/28/22 [...] Morrell D.O. M.P.H. Referring Provider: PIERRE HICKS [[id number]] Allergies As of Date: 12/28/2022 (No Known [...] tablet Take (more content not included)... Normal [facility] CNOVon 11-21-2022 CNOV Office Visit (ORMDNA ) REBECCAMANDI A ([id number]) 1990 F Date Time Provider Department 11/21/22 [...] Order(s):CONSULT TO PHYSICAL THERAPY [9032] Order #: [id number]: 1 FUTURE Prescriptions as of 11/21/2022 - [...] Encounter Status:Closed by PIERRE HICKS on 11/21/22 [facility] Carmelita 11-09-2022 ABHIJITN Telephone (MEI) MANDI VALENTE ([id number]) 1990 F Date Time Provider Department 11/09/22 [...] have questions, patient can be reached at [phone] Rhonda Sow, RN 11/09/2022 2:57 PM Signed [...] Status:Closed by AVERY ARMANDO on 12/23/22 [facility] ANES POSTPROC EVALon 023 ANES POSTPROC EVAL HNO ID: [id number] Author: August Santizo MD Service: Anesthesiology Author Type: Anesthesiologist Type: Anesthesia Postprocedure Evaluation Filed: 11/08/2022 1:20 PM Note Text: POST ANESTHESIA EVALUATION NOTE : 1990 Procedure Summary Date: 11/08/22 Room / Location: NE OR02 / ME OR Anesthesia Start: 1111 [...] November 08, 2022 TIME: 1:20 PM CSN: [id number] [facility] ANES PRE-OPon 11-08-2022 ANES PRE-OP HNO ID: [id number] Author: August Santizo MD Service: Anesthesiology Author Type: Anesthesiologist Type: Anesthesia Preprocedure Evaluation Filed: 11/08/2022 10:21 AM Note Text: ANESTHESIOLOGY DAY OF SURGERY NOTE : 1990 Procedure Information Date/Time: 11/08/22 1108 Procedure: EXCISION TROCHANTERIC BURSA OR CALCIFICATION (Right: Hip) Location: NE OR02 / NE OR Surgeons: Cathryn Morrell DO Estimated body [...] November 08, 2022 TIME: 10:21 AM CSN: [id number] [facility] OPERATIVE NOon 11-08-2022 OPERATIVE NO HNO ID: [id number] Author: Cathryn Morrell DO Service: Orthopaedic Surgery Author Type: Physician Type: Operative Report Filed: 11/08/2022 1:21 PM Note Text: OPERATIVE/PROCEDURE REPORT LOG ID: [id number] SURGERY/PROCEDURE DATE: 11/08/2022 INCISION/PROCEDURE START TIME: 11:35 AM INCISION CLOSE/PROCEDURE END TIME: 12:18 PM SURGEON(S)/PROCEDURAL IST(S) AND FLAVOR MAKER(S): Surgeon(s) and Role: * Cathryn Morrell DO - Primary Nurse Practitioner: Lisseth Wright APRN.COATING MANAGER Physician Control Director: Kelly Calabrese PA-C SURGERY/PROCEDURE(S): Right hip arthroscopy, [...] DATE: November 08, 2022 TIME: 12:47 PM [facility] XR FLUOROSCOPYon 11-08-2022 XR FLUOROSCOPY * * *Final Report* * * DATE OF EXAM: Nov 08 2022 12:15PM [facility] [id number] - XR FLUOROSCOPY / PROCEDURE REASON: [...] Please refer to the performing LIP's report. Hybrid Powertrain Development Engineer: MALOU Transcribe Date/Time: Nov 08 2022 1:56P Dictated by : JENNI CHINCHILLA MD This examination was interpreted and the report reviewed and electronically signed by: JENNI CHINCHILLA MD on Nov 08 2022 1:57PM EST [id number] N [facility] 11-02-2022 [facility] Office Visit (ORMDNA ) MANDI VALENTE ([id number]) 1990 F Date Time Provider Department 11/02/22 [...] Patient's questions (more content not included)... Normal [facility] HISTORY PHYSICALon HISTORY PHYSICAL HNO ID: [id number] Author: Stefany De La Torre PA-C Service: ? Author Type: Physician Control Director Type: HANDP Filed: 10/31/2022 2:00 PM Note [...] fevers. Neuro: No history of TIA's, stroke, ISO COORDINATOR tumor, impaired sensorium, hemiplegia, paraplegia or quadraplegia. No neurological symptoms or problems. Respiratory: No history of current cough or dyspnea, or pneumonia in the past 6 weeks. No history of respiratory/pulmonary symptoms or problems. Cardiovascular: No history of HTN requiring medication, no history of angina, CHF, [place], cardiac surgery or stents. Denies rest pain, gangrene or revascularization/amp utation for PVD. No history of cardiovascular symptoms or problems. GI: No history of GI symptoms or problems. No history of esophageal varices, recent ascites, or ETOH greater than 2 drinks per day. : No history of dysuria, frequency or incontinence,, stones or chronic kidney disease SEAM STAY STITCHER: Negative for abnormal vaginal bleeding, abnormal vaginal [...] tests Assessment (more content not included)... Normal [facility] Basophil percentageOrdered B y: Dr. Smith on 09-07-2022 Basophil percentage 0.2 AI 0.0-0.9 [facility] Basophil percentage 2.6 AI 0.0-0.9 [facility] Erythrocyte sedimentation ra teOrdered By: Dr. Smith on 09-07-2022 ESR (Bld) [Velocity] 4 mm/h 0-30 [facility] No Panel InformationOrdered By: Dr. Smith on 09-07-2022 Anti-Nuclear Antibody Screen Positive Negative [facility] Centromere B Antibody <0.2 AI 0.0-0.9 [facility] FREIGHT CHECKER Antibody <0.2 AI 0.0-0.9 [facility] Serum DNA double strand anti body assay (units/volume)Ordered By: Dr. Smith on 09-07-2022 DNA double strand Ab Qn (S) 1 [IU]/mL 0-9 [facility] Comment on above: Negative <5 Equivoca l 5 - 9 Positive >9 Serum Silvia-1 antibody assay (u nits/volume)Ordered By: Dr. Smith on 09-07-2022 Silvia-1 extractable nuclear Ab Qn (S) <0.2 AI 0.0-0.9 [facility] Serum Scl-70 extractable nuc lear antibody assay (units/volume)Ordered By: Dr. Smith on 09-07-2022 SCL-70 extractable nuclear Ab Qn (S) <0.2 AI 0.0-0.9 [facility] Serum Carlson extractable nucl ear antibody detectionOrdered By: Dr. Smith on 09-07-2022 Carlson extractable nuclear Ab Ql (S) <0.2 AI 0.0-0.9 [facility] Serum cyclic citrullinated p eptide IgG antibody assay (units/volume)Ordered By: Dr. Smith on 09-07-2022 Cyclic citrullinated peptide IgG Qn 1 units 0-19 [facility] Comment on above: Negative <20 Weak po sitive 20 - 39 Moderate positive 40 - 59 Strong positive >59Performed at: [facility] [id number] Director: Sukhdev Cullen PhD, Phone: [phone] Serum or plasma C reactive p rotein measurement (mass/volume)Ordered By: Dr. Smith on 09-07-2022 CRP [Mass/Vol] mg/L 0.0-3.0 [facility] Comment on above: C-Reactive Protein ( CRP) provides useful information for thediagnosis, therapy and monitoring of inflammatory processesand associated diseases. For the evaluation of Relative Riskfor Cardiovascular Disease, a High Sensitivity CRP (HSCRP)should be ordered. Serum rheumatoid factor dete ctionOrdered By: Dr. Smith on 09-07-2022 Rheumatoid factor Ql (S) < 10.0 IU/mL <15 [facility] CNOVon 08-18-2022 CNOV Office Visit (ORTHWS ) MANDI VALENTE ([id number]) 1990 F Date Time Provider Department 08/18/22 [...] hip [M70.61] Order(s):MRI HIP WO IVCON RT [[id number]] Order #: [id number] FUTURE Prescriptions as of 08/18/2022 - meloxicam (MOBIC) 15 mg tablet Take 15 mg by mouth once daily. - oxyCODONE-acetaminoph en (PERCOCET) 5-325 mg tablet Take 1 tablet b (more content not included)... Normal [facility] COVID-19 virus antigen assay Ordered By: Dr. Ott on 07-13-2022 SARS-CoV-2 (COVID-19) Ag IA.rapid Ql (Resp) [facility] Laboratory - Microbiology an d Antimicrobial susceptibilityon 07-13-2022 SARS-CoV-2 (COVID-19) RNA GUCCI+probe Ql (Unsp spec) Not detected [facility] XR Pelvis and Hip - right AP and Lateral frogon 07-07-2022 IMPRESSION: Mild narrowing both hip joints Hybrid Powertrain Development Engineer: PSCB Transcribe Date/Time: Jul 07 2022 8:05A Dictated by : MONTANA QUIÑONES DO This examination was interpreted and the report reviewed and electronically signed by: MONTANA QUIÑONES DO on Jul 07 2022 8:06AM [facility] * * *Final Report* [...] hip: No fractures or dislocations are seen. [facility] Provider, Esther [facility] - 07/07/2022 * [...] IMPRESSION IMPRESSION: Mild narrowing both hip joints Hybrid Powertrain Development Engineer: PSCAnnmarie Transcribe Date/Time: Jul 07 2022 8:05A Dictated by : MONTANA QUIÑONES DO This examination was interpreted and the report reviewed and electronically signed by: MONTANA QUIÑONES DO on Jul 07 2022 8:06AM EST [facility] XR Pelvis and Hip - right AP and Lateral frogOrdered By: Ccf Provider on 07-07-2022 [facility] CNOVon 07-06-2022 CNOV Office Visit (IVONENA ) MANDI VALENTE ([id number]) 1990 F Date Time Provider Department 07/06/22 1:00 PM CATHRYN MORRELL During your visit today, we recorded the following information about you: Cathryn Morrell DO 07/06/2022 2:47 PM Signed Large Joint Arthro/Inj: R greater trochanteric bursa Informed Consent Consent Obtained: Verbal Rock Protocol A moment to CARE was completed. [...] patient is (more content not included)... Normal [facility] XR HIP 3V PELV+ AP/LAT RTon 07-06-2022 [...] seen. IMPRESSION: Mild narrowing both hip joints Hybrid Powertrain Development Engineer: PSCAnnmarie Transcribe Date/Time: Jul 07 2022 8:05A Dictated by : MONTANA QUIÑONES DO This examination was interpreted and the report reviewed and electronically signed by: MONTANA QUIÑONES DO on Jul 07 2022 8:06AM EST [id number] N [facility] XR Pelvis and Hip - right AP and Lateral frogon 07-06-2022 Radiology Study observation (narrative) [facility] US DVT LOWER RTon 02-28-2022 [facility] XR HIP GENERAL 3V PELV/AP/LA T RIGHTon 12-08-2021 [facility] HIV 1 and HIV-2 antibody ass ay with HIV-1 p24 antigen detectionon 10-04-2021 HIV 1+2 Ab+HIV1 p24 Ag IA Ql Non-Reactive Nonreactive [facility] Work Phone: No Panel Informationon 10-04 Hepatitis B Surface Antigen Non-Reactive Nonreactive [facility] Work Phone: Hepatitis C Antibody Non-Reactive Nonreactive [facility] Work Phone: Comment on above: Non Reactive: < 0.8 Equivocal: >/= 0.8 to < 1.0 Reactive: >/= 1.0The CDC recommends that a reactive/equivocal HCV antibody result be followed up by the HCV Nucleic Acid Amplificationtest (960482) Miscellaneous Test See comment [facility] Work Phone: Comment on above: TEST RESULT LIMITSCt , Ng, Trich vag by GUCCI Chlamydia by GUCCI Negative Negative Gonococcus by GUCCI Negative Negative Trich vag by GUCCI Negative Negative ____ TESTING PERFORMED AT [facility]. ORIGINAL REPORT ON FILE IN LAB CONTAINS ADDITIONAL TEST SITE INFORMATION. Serum Treponema species anti body detectionon 10-04-2021 Treponema sp Ab Ql (S) Non-Reactive [facility] Work Phone: Large Joint Arthro/Inj: R gr eater trochanteric bursa [facility] Vital Signs Date Time Vital Sign Value Performing Clinician Facility 02-13-2025 16:08-0400 Body height 157.[address] Cholo Smith DO Work Phone: [facility] 02-13-2025 16:08-0400 Body mass index (BMI) [Ratio] 39.9 kg/m2 Dr. Cholo Smith DO Work Phone: [facility] 02-13-2025 16:08-0400 Body weight 99.[address] Cholo Smith DO Work Phone: [facility] 02-13-2025 16:08-0400 Diastolic blood pressure 82 mm[Hg] Dr. Cholo Smith DO Work Phone: [facility] 02-13-2025 16:08-0400 Systolic blood pressure 120 mm[Hg] Dr. Cholo Smith DO Work Phone: [facility] 02-07-2025 14:35-0400 Diastolic blood pressure 67 mm[Hg] Dr. Cholo Smith DO Work Phone: [facility] 02-07-2025 14:35-0400 Heart rate 90 /min Dr. Cholo Smith DO Work Phone: [facility] 02-07-2025 14:35-0400 Systolic blood pressure 121 mm[Hg] Dr. Cholo Smith DO Work Phone: [facility] 02-07-2025 12:21-0400 Body height 157.[address] Cholo Smith DO Work Phone: [facility] 02-07-2025 12:21-0400 Body mass index (BMI) [Ratio] 39.6 kg/m2 Dr. Cholo Smith DO Work Phone: [facility] 02-07-2025 12:21-0400 Body weight 98.[address] Cholo Smith DO Work Phone: [facility] 02-07-2025 12:18-0400 Body temperature 96.7 [degF] Dr. Cholo Smith DO Work Phone: [facility] 02-07-2025 12:18-0400 Respiratory rate 18 /min Dr. Cholo Smith DO Work Phone: [facility] 01-29-2025 09:58-0400 Body height 157.[address] Cholo Smith DO Work Phone: [facility] 01-29-2025 09:57-0400 Body mass index (BMI) [Ratio] 39.7 kg/m2 Dr. Cholo Smith DO Work Phone: [facility] 01-29-2025 09:57-0400 Body weight 98.[address] Cholo Smith DO Work Phone: [facility] 01-29-2025 09:57-0400 Diastolic blood pressure 78 mm[Hg] Dr. Cholo Smith DO Work Phone: [facility] 01-29-2025 09:57-0400 Systolic blood pressure 129 mm[Hg] Dr. Cholo Smith DO Work Phone: [facility] 01-13-2025 10:45-0400 Body height 157.[address] Cholo Smith DO Work Phone: [facility] 01-13-2025 10:45-0400 Body mass index (BMI) [Ratio] 39.4 kg/m2 Dr. Cholo Smith DO Work Phone: [facility] 01-13-2025 10:45-0400 Body weight 97.[address] Cholo Smith DO Work Phone: [facility] 01-13-2025 10:45-0400 Diastolic blood pressure 87 mm[Hg] Dr. Cholo Smith DO Work Phone: [facility] 01-13-2025 10:45-0400 Systolic blood pressure 126 mm[Hg] Dr. Cholo Smith DO Work Phone: [facility] 01-03-2025 15:03-0400 Body height 157.[address] Cholo Smith DO Work Phone: [facility] 01-03-2025 15:03-0400 Body mass index (BMI) [Ratio] 38.6 kg/m2 Dr. Cholo Smith DO Work Phone: [facility] 01-03-2025 15:03-0400 Body weight 95.[address] Cholo Smith DO Work Phone: [facility] 01-03-2025 15:03-0400 Diastolic blood pressure 82 mm[Hg] Dr. Cholo Smith DO Work Phone: [facility] 01-03-2025 15:03-0400 Systolic blood pressure 138 mm[Hg] Dr. Cholo Smith DO Work Phone: [facility] 12-04-2024 14:55-0400 Body height 157.[address] Cholo Smith DO Work Phone: [facility] 12-04-2024 14:55-0400 Body mass index (BMI) [Ratio] 38.5 kg/m2 Dr. Cholo Smith DO Work Phone: [facility] 12-04-2024 14:55-0400 Body weight 95.[address] Cholo Smith DO Work Phone: [facility] 12-04-2024 14:55-0400 Diastolic blood pressure 77 mm[Hg] Dr. Cholo Smith DO Work Phone: [facility] 12-04-2024 14:55-0400 Systolic blood pressure 130 mm[Hg] Dr. Cholo Smith DO Work Phone: [facility] 11-07-2024 09:36-0400 Body mass index (BMI) [Ratio] 37.5 kg/m2 Dr. Cholo Smith DO Work Phone: [facility] 11-07-2024 09:36-0400 Body weight 93.[address] Cholo Smith DO Work Phone: [facility] 11-07-2024 09:36-0400 Diastolic blood pressure 77 mm[Hg] Dr. Cholo Smith DO Work Phone: [facility] 11-07-2024 09:36-0400 Systolic blood pressure 117 mm[Hg] Dr. Cholo Smith DO Work Phone: [facility] 10-15-2024 12:47-0400 Body height 157.[address] Cholo Smith DO Work Phone: [facility] 10-15-2024 12:47-0400 Body mass index (BMI) [Ratio] 36.6 kg/m2 Dr. Cholo Smith DO Work Phone: [facility] 10-15-2024 12:47-0400 Body weight 90.[address] Cholo Smith DO Work Phone: [facility] 10-15-2024 12:47-0400 Diastolic blood pressure 86 mm[Hg] Dr. Cholo Smith DO Work Phone: [facility] 10-15-2024 12:47-0400 Systolic blood pressure 136 mm[Hg] Dr. Cholo Smith DO Work Phone: [facility] 10-12-2024 00:51-0400 Body temperature 98.5 [degF] Dr. Cholo Smith DO Work Phone: [facility] 10-12-2024 00:51-0400 Diastolic blood pressure 72 mm[Hg] Dr. Cholo Smith DO Work Phone: [facility] 10-12-2024 00:51-0400 Heart rate 85 /min Dr. Cholo Smith DO Work Phone: [facility] 10-12-2024 00:51-0400 Respiratory rate 18 /min Dr. Cholo Smith DO Work Phone: [facility] 10-12-2024 00:51-0400 SaO2% (BldA) [Mass fraction] 99 % Dr. Cholo Smith DO Work Phone: [facility] 10-12-2024 00:51-0400 Systolic blood pressure 132 mm[Hg] Dr. Cholo Smith DO Work Phone: [facility] 10-11-2024 21:50-0400 Body mass index (BMI) [Ratio] 37.6 kg/m2 Dr. Cholo Smith DO Work Phone: [facility] 10-11-2024 21:50-0400 Body weight 93.[address] Cholo Smith DO Work Phone: [facility] 10-07-2024 13:55-0400 Body mass index (BMI) [Ratio] 36.6 kg/m2 Dr. Cholo Smith DO Work Phone: [facility] 10-07-2024 13:55-0400 Body weight 90.[address] Cholo Smith DO Work Phone: [facility] 10-07-2024 13:55-0400 Diastolic blood pressure 85 mm[Hg] Dr. Cholo Smith DO Work Phone: [facility] 10-07-2024 13:55-0400 Systolic blood pressure 138 mm[Hg] Dr. Cholo Smith DO Work Phone: [facility] 09-10-2024 14:53-0500 Body height 157.[address] Cholo Smith DO Work Phone: [facility] 09-10-2024 14:53-0500 Body mass index (BMI) [Ratio] 35.9 kg/m2 Dr. Cholo Smith DO Work Phone: [facility] 09-10-2024 14:53-0500 Body weight 88.[address] Cholo Smith DO Work Phone: [facility] 09-10-2024 14:53-0500 Diastolic blood pressure 85 mm[Hg] Dr. Cholo Smith DO Work Phone: [facility] 09-10-2024 14:53-0500 Systolic blood pressure 136 mm[Hg] Dr. Cholo Smith DO Work Phone: [facility] 08-26-2024 12:56-0500 Body mass index (BMI) [Ratio] 35.5 kg/m2 Dr. Cholo Smith DO Work Phone: [facility] 08-26-2024 12:56-0500 Body weight 88.[address] Cholo Smith DO Work Phone: [facility] 08-26-2024 12:56-0500 Diastolic blood pressure 89 mm[Hg] Dr. Cholo Smith DO Work Phone: [facility] 08-26-2024 12:56-0500 Systolic blood pressure 137 mm[Hg] Dr. Cholo Smith DO Work Phone: [facility] 08-13-2024 15:09-0500 Body mass index (BMI) [Ratio] 35.4 kg/m2 Dr. Cholo Smith DO Work Phone: [facility] 08-13-2024 15:09-0500 Body weight 87.[address] Cholo Smith DO Work Phone: [facility] 08-13-2024 15:09-0500 Diastolic blood pressure 84 mm[Hg] Dr. Cholo Smith DO Work Phone: [facility] 08-13-2024 15:09-0500 Systolic blood pressure 139 mm[Hg] Dr. Cholo Smith DO Work Phone: [facility] 06-26-2024 12:56-0500 Body mass index (BMI) [Ratio] 34.9 kg/m2 Dr. Cholo Smith DO Work Phone: [facility] 06-26-2024 12:56-0500 Body weight 86.[address] Cholo Smith DO Work Phone: [facility] 06-26-2024 12:56-0500 Diastolic blood pressure 90 mm[Hg] Dr. Cholo Smith DO Work Phone: [facility] 06-26-2024 12:56-0500 Systolic blood pressure 147 mm[Hg] Dr. Cholo Smith DO Work Phone: [facility] 06-24-2024 09:28-0500 Body weight 87.[address] Cholo Smith DO Work Phone: [facility] 06-24-2024 09:28-0500 Diastolic blood pressure 89 mm[Hg] Dr. Cholo Smith DO Work Phone: [facility] 06-24-2024 09:28-0500 Heart rate 67 /min Dr. Cholo Smith DO Work Phone: [facility] 06-24-2024 09:28-0500 Respiratory rate 16 /min Dr. Cholo Smith DO Work Phone: [facility] 06-24-2024 09:28-0500 SaO2% (BldA) [Mass fraction] 98 % Dr. Cholo Smith DO Work Phone: [facility] 06-24-2024 09:28-0500 Systolic blood pressure 157 mm[Hg] Dr. Cholo Smith DO Work Phone: [facility] 06-11-2024 13:55-0500 Body temperature 97.5 [degF] Dr. Cholo Smith DO Work Phone: [facility] 06-11-2024 13:55-0500 Diastolic blood pressure 94 mm[Hg] Dr. Cholo Smith DO Work Phone: [facility] 06-11-2024 13:55-0500 Heart rate 78 /min Dr. Cholo Smith DO Work Phone: [facility] 06-11-2024 13:55-0500 Respiratory rate 16 /min Dr. Cholo Smith DO Work Phone: [facility] 06-11-2024 13:55-0500 SaO2% (BldA) [Mass fraction] 97 % Dr. Cholo Smith DO Work Phone: [facility] 06-11-2024 13:55-0500 Systolic blood pressure 138 mm[Hg] Dr. Cholo Smith DO Work Phone: [facility] 06-11-2024 11:18-0500 Body mass index (BMI) [Ratio] 34.7 kg/m2 Dr. Cholo Smith DO Work Phone: [facility] 06-11-2024 11:18-0500 Body weight [address] Cholo Smith DO Work Phone: [facility] 10-20-2023 14:52-0400 Body height 157.[address] Cholo Smith Work Phone: [facility] 10-20-2023 14:52-0400 Diastolic blood pressure 80 mm[Hg] Dr. Cholo Smith Work Phone: [facility] 10-20-2023 14:52-0400 Systolic blood pressure 139 mm[Hg] Dr. Cholo Smith Work Phone: [facility] 10-20-2023 14:47-0400 Body mass index (BMI) [Ratio] 34.7 kg/m2 Dr. Cholo Smith Work Phone: [facility] 10-20-2023 14:47-0400 Body weight 86.[address] Cholo Smith Work Phone: [facility] 09-19-2023 10:01-0400 Body mass index (BMI) [Ratio] 33.3 kg/m2 Dr. Cholo Smith Work Phone: [facility] 09-19-2023 10:01-0400 Body weight 82.[address] Cholo Smith Work Phone: [facility] 09-19-2023 10:01-0400 Diastolic blood pressure 80 mm[Hg] Dr. Cholo Smith Work Phone: [facility] 09-19-2023 10:01-0400 Systolic blood pressure 141 mm[Hg] Dr. Cholo Smith Work Phone: [facility] 08-21-2023 14:43-0500 Body height 157.[address] Cholo Smith Work Phone: [facility] 08-21-2023 14:43-0500 Body mass index (BMI) [Ratio] 31.8 kg/m2 Dr. Cholo Smith Work Phone: [facility] 08-21-2023 14:43-0500 Body weight 78.[address] Cholo Smith Work Phone: [facility] 08-21-2023 14:43-0500 Diastolic blood pressure 84 mm[Hg] Dr. Cholo Smith Work Phone: [facility] 08-21-2023 14:43-0500 Systolic blood pressure 126 mm[Hg] Dr. Cholo Smith Work Phone: [facility] 05-30-2023 09:47-0500 Diastolic blood pressure 86 mm[Hg] Dr. Cholo Smith Work Phone: [facility] 05-30-2023 09:47-0500 Systolic blood pressure 138 mm[Hg] Dr. Cholo Smith Work Phone: [facility] 05-30-2023 09:34-0500 Body height 157.[address] Cholo Smith Work Phone: [facility] 05-30-2023 09:34-0500 Body mass index (BMI) [Ratio] 29.2 kg/m2 Dr. Cholo Smith Work Phone: [facility] 05-30-2023 09:34-0500 Body temperature 98.2 [degF] Dr. Cholo Smith Work Phone: [facility] 05-30-2023 09:34-0500 Body weight 72.[address] Cholo Smith Work Phone: [facility] 05-30-2023 09:34-0500 Heart rate 112 /min Dr. Cholo Smith Work Phone: [facility] 05-30-2023 09:34-0500 Respiratory rate 16 /min Dr. Cholo Smith Work Phone: [facility] 05-30-2023 09:34-0500 SaO2% (BldA) [Mass fraction] 98 % Dr. Cholo Smith Work Phone: [facility] 02-18-2023 09:46-0400 Body height 157.[address] Cholo Smith Work Phone: [facility] 02-18-2023 09:46-0400 Body mass index (BMI) [Ratio] 27.4 kg/m2 Dr. Cholo Smith Work Phone: [facility] 02-18-2023 09:46-0400 Body temperature 98.6 [degF] Dr. Cholo Smith Work Phone: [facility] 02-18-2023 09:46-0400 Body weight 68.[address] Cholo Smith Work Phone: [facility] 02-18-2023 09:46-0400 Diastolic blood pressure 85 mm[Hg] Dr. Cholo Smith Work Phone: [facility] 02-18-2023 09:46-0400 Heart rate 70 /min Dr. Cholo Smith Work Phone: [facility] 02-18-2023 09:46-0400 Respiratory rate 16 /min Dr. Cholo Smith Work Phone: [facility] 02-18-2023 09:46-0400 SaO2% (BldA) [Mass fraction] 97 % Dr. Cholo Smith Work Phone: [facility] 02-18-2023 09:46-0400 Systolic blood pressure 120 mm[Hg] Dr. Cholo Smith Work Phone: [facility] 12-08-2022 11:00-0400 Body temperature 98.6 [degF] Dr. Cholo Smith Work Phone: [facility] 12-08-2022 11:00-0400 Diastolic blood pressure 91 mm[Hg] Dr. Cholo Smith Work Phone: [facility] 12-08-2022 11:00-0400 Heart rate 69 /min Dr. Cholo Smith Work Phone: [facility] 12-08-2022 11:00-0400 Respiratory rate 16 /min Dr. Cholo Smith Work Phone: [facility] 12-08-2022 11:00-0400 SaO2% (BldA) [Mass fraction] 100 % Dr. Cholo Smith Work Phone: [facility] 12-08-2022 11:00-0400 Systolic blood pressure 132 mm[Hg] Dr. Cholo Smith Work Phone: [facility] 12-08-2022 08:41-0400 Body height 157.[address] Cholo Smith Work Phone: [facility] 12-08-2022 08:41-0400 Body mass index (BMI) [Ratio] 29.5 kg/m2 Dr. Cholo Smith Work Phone: [facility] 12-08-2022 08:41-0400 Body weight 73.[address] Cholo Smith Work Phone: [facility] 10-28-2022 11:11-0400 Body height 157.5 cm Pacc 1 Work Phone: [facility] 10-28-2022 11:11-0400 Body temperature 97.81 [degF] Pacc 1 Work Phone: [facility] 10-28-2022 11:11-0400 Body weight 78.47 kg Pacc 1 Work Phone: [facility] 10-28-2022 11:11-0400 Diastolic blood pressure 84 mm[Hg] Pacc 1 Work Phone: [facility] 10-28-2022 11:11-0400 Heart rate 79 /min Pacc 1 Work Phone: [facility] 10-28-2022 11:11-0400 Respiratory rate 16 /min Pacc 1 Work Phone: [facility] 10-28-2022 11:11-0400 SaO2% (BldA) [Mass fraction] 99 % Pacc 1 Work Phone: [facility] 10-28-2022 11:11-0400 Systolic blood pressure 138 mm[Hg] Pacc 1 Work Phone: [facility] 10-08-2022 12:52-0400 Body temperature 97.3 [degF] Dr. Cholo Smith Work Phone: [facility] 10-08-2022 12:52-0400 Diastolic blood pressure 68 mm[Hg] Dr. Cholo Smith Work Phone: [facility] 10-08-2022 12:52-0400 Heart rate 97 /min Dr. Cholo Smith Work Phone: [facility] 10-08-2022 12:52-0400 Respiratory rate 14 /min Dr. Cholo Smith Work Phone: [facility] 10-08-2022 12:52-0400 SaO2% (BldA) [Mass fraction] 98 % Dr. Cholo Smith Work Phone: [facility] 10-08-2022 12:52-0400 Systolic blood pressure 110 mm[Hg] Dr. Cholo Smith Work Phone: [facility] 09-01-2021 11:13-0500 Body height 157.[address] Cholo Smith Work Phone: [facility] Encounters Encounter Date Encounter Type Care Provider Facility Start: 02-13-2025 End: 02-13-2025 ambulatory Reina Rashid Facility:[facility] Start: 02-13-2025 End: 02-13-[address] Reina Rashid DO -[facility] Work Phone: Start: 02-07-2025 ambulatory Linda Hammond Facilit y:[facility] Start: 02-07-2025 Non-patient / Non-visit Linda Hammond CNM -[facility] Start: 02-07-2025 End: 02-07-[address] Cholo Smith DO Work Phone: -[facility] Start: 02-07-2025 End: 02-07-2025 Patient encounter procedure Linda Hammond [facility] Work Phone: Start: 02-05-2025 Patient encounter procedure Danya Simpson [employer] -Lab [facility] Start: 02-05-2025 ambulatory Cholo Smith Facility: [facility] Start: 01-30-2025 End: 01-30-2025 ambulatory REINA GARCIA [facility] Start: 01-29-2025 End: 01-29-[address] Reina Rashid DO -[facility] Work Phone: Start: 01-29-2025 End: 01-29-[address] Cholo Smith DO Work Phone: -[facility] Start: 01-14-2025 End: 01-14-[address] Cholo Smith DO Work Phone: -Laboratory Start: 01-14-2025 End: 01-14-2025 Patient encounter procedure Lawson Parry CNM -Laboratory Work Phone: Start: 01-13-2025 End: 01-13-2025 Patient encounter procedure Lawson Parry CNM -[facility] Work Phone: Start: 01-13-2025 End: 01-14-[address] Cholo Smith DO Work Phone: -[facility] Start: 01-03-2025 End: 01-03-[address] Reina Rashid DO -[facility] Work Phone: Start: 01-03-2025 End: 01-03-[address] Cholo Smith DO Work Phone: -[facility] Start: 12-30-2024 End: 12-30-2024 ambulatory REINA GARCIA [facility] Start: 12-26-2024 End: 12-26-[address] Cholo Smith DO Work Phone: -[facility] Start: 12-26-2024 End: 12-26-[address] Reina Rashid DO -[facility] Start: 12-26-2024 End: 12-26-2024 ambulatory Reina Rashid Facility:[facility] Start: 12-04-2024 End: 12-04-[address] Reina Rashid DO -[facility] Work Phone: Start: 12-04-2024 End: 12-04-[address] Cholo Smith DO Work Phone: [facility] Work Phone: Start: 12-03-2024 End: 12-03-2024 ambulatory PURA KENDALL [facility] Start: 11-18-2024 End: 11-18-2024 ambulatory REINA GARCIA [facility] Start: 11-07-2024 End: 11-07-[address] Piedad Moreno MD -[facility] Work Phone: Start: 11-07-2024 End: 11-07-2024 ambulatory [facility] Facility:[facility] Start: 10-31-2024 End: 10-31-2024 ambulatory REINA GARCIA [facility] Start: 10-15-2024 End: 10-15-[address] Cholo Smith DO Work Phone: [facility] Work Phone: Start: 10-15-2024 End: 10-15-[address] Piedad Moreno MD -Laboratory, Specimen Work Phone: Start: 10-15-2024 End: 10-15-[address] Piedad Moreno MD -[facility] Work Phone: Start: 10-15-2024 End: 10-15-2024 ambulatory [facility] Facility:[facility] Start: 10-15-2024 End: 10-15-2024 ambulatory [facility] Facility:[facility] Start: 10-11-2024 End: 10-12-2024 Emergency department patient visit Dr. Mary Jane Wade DO -Emergency Department Work Phone: Start: 10-07-2024 End: 10-07-2024 Patient encounter procedure Lawson Parry CNM -[facility] Work Phone: Start: 10-07-2024 End: 10-07-2024 ambulatory Cholo Smith Facility:[facility] Start: 09-10-2024 End: 09-10-[address] Reina Rashid DO -[facility] Work Phone: Start: 09-10-2024 End: 09-10-[address] Cholo Smith DO Work Phone: [facility] Work Phone: Start: 09-10-2024 End: 09-10-2024 ambulatory Reina Rashid Facility:[facility] Start: 08-26-2024 End: 08-26-2024 Patient encounter procedure Lawson Parry CNM -[facility] Work Phone: Start: 08-26-2024 End: 08-26-2024 ambulatory Cholo Smith Facility:[facility] Start: 08-19-2024 Encounter for other preprocedural examination Elijah Shafer [facility] Start: 08-13-2024 End: 08-13-[address] Reina Rashid DO -Laboratory, Specimen Work Phone: Start: 08-13-2024 End: 08-13-[address] Reina Rashid DO -[facility] Work Phone: Start: 08-13-2024 End: 08-13-2024 ambulatory Reina Rashid Facility:[facility] Start: 08-13-2024 End: 08-13-2024 ambulatory Reina Rashid Facility:[facility] Start: 08-05-2024 ambulatory Elijah Milmine Facility :[facility] Start: 07-08-2024 End: 07-08-2024 Patient encounter procedure Elijah Shafer DO -[facility] Work Phone: Start: 07-08-2024 End: 07-08-2024 ambulatory Elijah Shafer Facility:[facility] Start: 06-26-2024 End: 06-26-2024 Patient encounter procedure Ivett HOFF -Laboratory, Specimen Work Phone: Start: 06-26-2024 End: 06-26-2024 Patient encounter procedure Ivett HOFF -[facility] Work Phone: Start: 06-26-2024 End: 06-26-2024 ambulatory [facility]olo [facility] Facility:[facility] Start: 06-26-2024 End: 06-26-2024 ambulatory Ivett Marquez Facility:[facility] Start: 06-24-2024 End: 06-24-2024 Patient encounter procedure Reina HOFF -[facility] Work Phone: Start: 06-24-2024 End: 06-24-2024 ambulatory Cholo [facility] Facility:[facility] Start: 06-11-2024 ambulatory [facility] Facility: [facility] Start: 06-11-2024 Non-patient / Non-visit Elijah Shafer DO -[facility] Start: 06-11-2024 End: 06-11-2024 Admission to same day surgery center Elijah Shafer DO -Endoscopy Work Phone: Start: 06-11-2024 End: 06-11-2024 ambulatory [facility] Facility:[facility] Start: 05-27-[address] Keiry Rashid DO -Physical Therapy Work Phone: Start: 05-27-2024 End: 05-27-2024 ambulatory Reina Rashid Facility:[facility] Start: 05-10-2024 End: 05-10-2024 ambulatory [facility] Facility:[facility] Start: 05-10-2024 End: 05-10-2024 ambulatory iLsseth Jackson Facility:[facility] Start: 04-23-2024 End: 04-23-2024 ambulatory [facility] Facility:[facility] Start: 03-21-2024 End: 03-21-2024 ambulatory [facility] Facility:[facility] Start: 03-19-2024 ambulatory Lawson Parry Facility :[facility] Start: 03-19-2024 ambulatory Danya Simpson Facility :[facility] Start: 03-19-2024 End: 03-20-2024 Evaluation and management of inpatient Reina Nick Heather Facility:[facility] Start: 03-12-2024 End: 03-12-2024 ambulatory Cholo Smith Facility:[facility] Start: 03-12-2024 End: 03-12-2024 ambulatory Reina Rashid Facility:[facility] Start: 03-06-2024 End: 03-06-2024 ambulatory Reina Rashid Facility:[facility] Start: 03-04-2024 End: 03-05-2024 ambulatory Lawson Parry Facility:[facility] Start: 03-04-2024 End: 03-04-2024 ambulatory Lawson Parry Facility:[facility] Start: 02-26-2024 End: 02-26-2024 ambulatory Reina Nick Heather Facility:[facility] Start: 02-26-2024 End: 02-26-2024 ambulatory Reina Nick Heather Facility:[facility] Start: 02-22-2024 ambulatory Cholo Smith Facility: [facility] Start: 02-22-2024 End: 02-22-2024 ambulatory LAWSON PARRY [facility] pital Start: 02-22-2024 End: 02-22-2024 ambulatory Reina Rashid Facility:[facility] Start: 02-20-2024 End: 02-21-2024 ambulatory Piedadedison Haysdeannaabundio Facility:[facility] Start: 02-19-2024 End: 02-19-2024 ambulatory Cholo Smith Facility:[facility] Start: 02-13-2024 End: 02-13-2024 ambulatory Reina Rashid Facility:[facility] Start: 10-20-2023 End: 10-20-[address] Cholo Smith Work Phone: [facility] Work Phone: Start: 10-20-2023 End: 10-20-[address] Cholo Smith Work Phone: [facility] Work Phone: Start: 10-20-2023 End: 10-20-[address] Cholo Smith Work Phone: [facility] Work Phone: Start: 09-19-2023 End: 09-19-[address] Cholo Smith Work Phone: [facility] Work Phone: Start: 09-12-2023 End: 09-12-[address] Cholo Smith Work Phone: [facility] Work Phone: Start: 09-12-2023 End: 09-12-[address] [facility] [place] Work Phone: Start: 08-21-2023 End: 08-21-[address] Cholo Smith Work Phone: [facility] Work Phone: Start: 08-21-2023 End: 08-21-[address] [facility] Start: 08-21-2023 End: 08-21-[address] Cholo Smith Work Phone: [facility] Work Phone: Start: 05-30-2023 End: 05-30-[address] Cholo Smith Work Phone: [facility] Work Phone: Start: 05-26-2023 End: 05-26-[address] Cholo Smith Work Phone: [facility] Work Phone: Start: 05-26-2023 End: 05-26-[address] Cholo Smith Work Phone: [facility], [place]erto Abernathy [facility] Start: 05-12-2023 End: 05-12-2023 ambulatory CHOLO SMITH Facility:[facility] Start: 05-12-2023 End: 05-12-2023 Patient encounter procedure Kelly Calabrese PA-C Work Phone: Orthopaedics Comment on above: Strain of calf muscl e, left, initial encounter (Primary Dx) Start: 05-12-2023 End: 05-12-2023 Subsequent hospital visit by physician Colibri IO Mob Work Phone: Radiology Comment on above: Pain of left calf [M 79.662] Start: 03-22-2023 End: 03-22-[address] Cholo Smith Work Phone: [facility] Work Phone: Start: 03-22-2023 End: 03-22-[address] Cholo Smith Work Phone: [facility] Work Phone: Start: 03-03-2023 End: 03-03-[address] [facility] Start: 03-01-2023 End: 03-01-2023 ambulatory CHOLO SMITH Facility:[facility] Start: 03-01-2023 End: 03-01-2023 Subsequent hospital visit by physician Colibri IO Mob Work Phone: Radiology Comment on above: Pain in left hip [M2 5.552] Start: 02-18-2023 End: 02-18-[address] Cholo Smith Work Phone: [facility] Work Phone: Start: 12-28-2022 End: 12-28-2022 ambulatory PIERRE HICKS Facility:[facility] Start: 12-28-2022 End: 12-28-2022 Patient encounter procedure ViancaYusra Morrell DO Work Phone: Orthopaedics Comment on above: S/P orthopedic surge ry, follow-up exam (Primary Dx); Trochanteric bursitis of right hip; Iliotibial band syndrome of right side Start: 12-08-2022 End: 12-08-2022 Emergency department patient visit Dr. Cholo Smith Work Phone: [facility] Start: 11-21-2022 End: 11-21-2022 ambulatory PIERRE HICKS Facility:[facility] Start: 11-09-2022 Telephone encounter Cathryn Morrell DO Work Phone: Orthopaedics Comment on above: Appointment Start: 11-08-2022 End: 11-08-2022 ambulatory J LUIS NINO (HISTORIC) [facility] Facility:[facility] Start: 11-02-2022 End: 11-02-2022 ambulatory J LUIS NINO (HISTORIC) [facility] Facility:[facility] Start: 11-02-2022 End: 11-02-2022 Patient encounter procedure ViancaYusra Morrell DO Work Phone: Orthopaedics Comment on above: Trochanteric bursiti s of right hip (Primary Dx); Iliotibial band syndrome of right side Start: 10-28-2022 End: 10-29-2022 ambulatory CATHRYN MORRELL Facility:[facility] Start: 10-28-2022 Encounter for other preprocedural examination J LUIS JACOBSON [facility] Start: 10-28-2022 End: 10-28-2022 Admission to establishment Pac Aldo 1 Work Phone: [facility] Start: 10-28-2022 End: 10-28-2022 ambulatory Pac [place] 1 Work Phone: Pre Anesthesia Comment on above: Preop examination (P rimary Dx) Start: 10-28-2022 End: 10-28-2022 Preprocedural examination done Pac Aldo 1 Work Phone: Pre Anesthesia Start: 10-08-2022 End: 10-08-[address] Cholo Smith Work Phone: [facility] Start: 09-26-2022 Orders Only Viancaleon Morrell DO Work Phone: Orthopaedics Comment on above: Trochanteric bursiti s of right hip (Primary Dx); Iliotibial band syndrome of right side Start: 09-16-2022 End: 09-16-2022 ambulatory J LUIS NINO (HISTORIC) ZEWAIL Facility:[facility] Start: 09-12-2022 ambulatory ViancaYusra Morrell DO Work Phone: [facility] Start: 09-12-2022 Follow-up encounter ViacnaYusra Morrell DO Work Phone: Orthopaedics Comment on above: MRI follow up Start: 09-07-2022 End: 09-07-[address] Cholo Smith Work Phone: [facility] Work Phone: Start: 09-07-2022 End: 09-07-[address] Cholo Smith Work Phone: [facility] Start: 09-02-2022 End: 09-02-[address] Cholo Smith Work Phone: [facility] Work Phone: Start: 09-02-2022 End: 09-02-[address] Cholo Smith Work Phone: [facility] Start: 09-01-2022 End: 09-01-[address] Cholo Smith Work Phone: [facility] Work Phone: Start: 09-01-2022 End: 09-01-[address] Cholo Smith Work Phone: [facility] Start: 09-01-[address] Cholo Smith Work Phone: [facility] Start: 08-18-2022 End: 08-18-2022 ambulatory VIANCA JULIA Facility:[facility] Start: 08-18-2022 End: 08-18-2022 Patient encounter procedure Cathryn Morrell DO Work Phone: Orthopaedics Comment on above: Trochanteric bursiti s of right hip (Primary Dx) Start: 07-20-2022 End: 07-20-[address] Cholo Smith Work Phone: [facility] Virtual Visit Start: 07-18-2022 End: 07-18-[address] Cholo Smith Work Phone: [facility]Outpatient Breast [facility] Start: 07-13-2022 End: 07-13-[address] Cholo Smith Work Phone: [facility] Start: 07-13-[address] Cholo disla Work Phone: [facility] Start: 07-06-2022 End: 07-06-2022 ambulatory VIANCA JULIA Facility:[facility] Start: 07-06-2022 End: 07-06-2022 Patient encounter [...] Johnson PA-C Work Phone: [facility] [place] Comment on above: Appointment Start: 02-28-2022 End: 02-28-2022 Subsequent hospital visit by physician [facility] Mob 1 Work Phone: Radiology Comment [...] encounter procedure Dr. Cholo Smith Work Phone: [facility] Start: 12-15-2021 Telephone encounter Cathryn Morrell DO Work Phone: Orthopaedics Comment on above: Appointment Start: 12-08-2021 End: 12-08-2021 Patient encounter procedure Cathryn Morrell DO Work Phone: Orthopaedics Comment on above: Hip pain (Primary Dx ); Pain in hip; Trochanteric bursitis of right hip; Iliotibial band syndrome of right side Start: 12-08-2021 End: 12-08-2021 Subsequent hospital visit by physician [facility] Mob Work Phone: Radiology Comment on above: Pain [R52] Start: 11-11-2021 Non-patient / Non-visit Dr. Cholo Smith Work Phone: [facility] Start: 11-03-2021 End: 11-03-[address] Cholo Smith Work Phone: [facility] Orthopaedic Specia Start: 10-04-2021 End: 10-04-[address] Cholo Smith Work Phone: [facility], [place] [employer] Start: 09-14-2021 End: 09-14-[address] Cholo Smith Work Phone: [facility] Gastroenterology Procedures Date Procedure Procedure Detail [...] HCV Quant by PCR testing - HCVPCR #[id number] Non Reactive: < 0.8 Equivocal: >/= 0.8 [...] Work Phone: Start: 08-13-2024 Gram stain microscopy Anina Smith DO Work Phone: Start: 08-13-2024 End: [...] tibia & fibula 2 views Kelly Calabrese PA-[employer] Work Phone: Start: 03-01-2023 Radex hip unilateral with pelvis 2-3 views Kelly Calabrese PA-[employer] Work Phone: Start: 09-02-2022 MRI of joint [...] DTaP,Tdap,Td Vaccine (3 - Td or Tdap) [facility] Start: 02-07-2025 Bacteria identified in Urine by Culture Urine Culture [facility] Start: 02-07-2025 End: 02-07-2025 [facility] Start: 02-07-2025 Nonstress test [facility] Start: 02-07-2025 Obstetric monitoring [facility] Start: 02-07-2025 Vital signs measurements [facility] Start: 10-15-2024 Source specific culture Genital Cult ure [facility] Start: 10-15-2024 Source specific culture [facility] Start: 10-12-2024 [facility] Start: 06-11-2024 Colonoscopy flexible with band ligation(s) COLONOSCOPY W/BAND LIGATION [facility] Start: 06-11-2024 Destruction internal hemorrhoid thermal energy DESTROY INTERNAL HEMORRHOIDS [facility] Start: 06-11-2024 Patient discharge [facility] Start: 03-10-2024 Covid-19 Vaccine ( season) Covid-19 Vaccine ( season) [facility] Start: 03-10-2024 Influenza vaccination Influenza Vacc ine (#1) [facility] Start: 12-08-2022 Incision & drainage abscess simple/single DRAINAGE OF SKIN ABSCESS [facility] Start: 07-10-2022 [facility] Start: 03-10-2022 Influenza vaccination INFLUENZA (#1) [facility] Start: 11-11-2021 Patient referral [facility] Work Phone: Start: 07-10-2021 DEPRESSION ASSESSMENT DEPRESSION ASS ESSMENT [facility] Start: 2018 HPV TESTING HPV TESTING [facility] Start: 2009 PAP TESTING PAP TESTING [facility] Start: 2009 Screening for malign ant neoplasm of cervix Cervical Cancer Screening [facility] Start: 11-14-2007 Urine microalbumin profile DTAP,TDAP,TD (1 - Tdap) [facility] Start: 2006 Anxiety Screening Anxiety Screening [facility] Start: 2006 Depression Screening Depression Scre ening [facility] Start: 2006 HEPATITIS C SCREENING HEPATITIS C SC REENING [facility] Start: 2006 Hepatitis C screening Hepatitis C [facility] Start: 2006 HIV SCREENING HIV SCREENING [facility] Start: 2006 HIV screening HIV Screening [facility] Start: 2000 Adult depression screening assessment DEPRESSION SCREENING [facility] Start: 1988 HEPATITIS B (1 of 3 - 3-dose series) HEPATITIS B (1 of 3 - 3-dose series) [facility] CBC W Auto Different ial panel - Blood [facility] CBC W Auto Different ial panel - Blood [facility] Hepatitis B surface antigen measurement [facility] Hepatitis C antibody measurement [facility] HIV 1+2 Ab+HIV1 p24 Ag [Presence] in Serum or Plasma by Immunoassay [facility] Measurement of gluco se 2 hours after glucose challenge for glucose tolerance test [facility] End: 01-07-2023 Mri any jt lower extrem w/o contrast matrl MRI HIP WO IVCON RT Radiology Routine Pain in hip 1 Occurrences starting 12/08/2021 until 01/07/2023 [facility] Work Phone: Comment on above: 1 Occurrences starti ng 12/08/2021 until 01/07/2023 End: 09-17-2023 MRI HIP WO IVCON RT MRI HIP WO IVCON RT Radiology Routine Trochanteric bursitis of right hip 1 Occurrences starting 08/18/2022 until 09/17/2023 [facility] Work Phone: Comment on above: 1 Occurrences starti ng 08/18/2022 until 09/17/2023 Patient Education [facility] Work Phone: Patient referral [facility] Work Phone: Radionuclide study o f abdomen [facility] Rubella IgG measurement [facility] Serologic test for syphilis [facility] Treponema sp Ab [Presence] in Serum [facility] Urine culture [facility] US Abdomen limited [facility] Immunizations Immunization Date Immunization Notes Care Provider Fa karely 02-13-2025 tetanus toxoid, redu esthela diphtheria toxoid, and acellular pertussis vaccine, adsorbed Dr. Cholo Smith DO Work Phone: [facility] 05-16-2024 influenza, seasonal, injectable, preservative free Dr. Cholo Smith DO Work Phone: [facility] 01-15-2024 tetanus toxoid, redu esthela diphtheria toxoid, and acellular pertussis vaccine, adsorbed Dr. Cholo Smith DO Work Phone: [facility] 05-04-2023 Covid (Spikevax) Dr. Cholo Ann Work Phone: [facility] 04-12-2023 influenza, injectabl e, quadrivalent, preservative free Dr. Cholo Smith Work Phone: [facility] 04-12-2023 influenza virus vaccine, unspecified formulation [employer] Work Phone: [facility] 04-11-2022 influenza, injectabl e, quadrivalent, preservative free Dr. Cholo Smith Work Phone: [facility] 04-11-2022 influenza, seasonal, injectable Dr. Cholo Smith Work Phone: [facility] 04-01-2022 Covid Pfizer Bivalen t Booster Dr. Cholo Smith Work Phone: [facility] 05-14-2021 Covid (Pfizer) Dr. Cholo lopez Work Phone: [facility] 04-16-2021 influenza, injectabl e, quadrivalent, preservative free Dr. Cholo Smith Work Phone: [facility] 04-16-2021 influenza, seasonal, injectable Dr. Cholo Smith Work Phone: [facility] 10-01-2020 Covid (Pfizer) Dr. Cholo lopez Work Phone: [facility] 09-10-2020 Covid (Pfizer) Dr. Cholo lopez Work Phone: [facility] 06-15-2020 tetanus toxoid, redu esthela diphtheria toxoid, and acellular pertussis vaccine, adsorbed Dr. Cholo Smith Work Phone: [facility] 04-15-2020 influenza, injectabl e, quadrivalent, preservative free Dr. Cholo Smith Work Phone: [facility] 04-15-2020 influenza, seasonal, injectable Dr. Cholo Smith Work Phone: [facility] 11-25-2019 hepatitis B vaccine, adult dosage Dr. Cholo Smith Work Phone: [facility] 06-27-2019 hepatitis B vaccine, adult dosage Dr. Cholo Smith Work Phone: [facility] 05-30-2019 hepatitis B vaccine, adult dosage Dr. Cholo Smith Work Phone: [facility] 02-23-2018 influenza, injectabl e, quadrivalent, preservative free Dr. Cholo Smith Work Phone: [facility] 02-23-2018 influenza, seasonal, injectable Dr. Cholo Smith Work Phone: [facility] 02-23-2018 tetanus toxoid, redu esthela diphtheria toxoid, and acellular pertussis vaccine, adsorbed Dr. Cholo Smith Work Phone: [facility] Payers Date Payer Category Payer Self-pay [id number] 2022 Unknown [id number] 2020 Unknown ELA SORENSEN SS PPO [id number] 2020-Present [phone] [address] [place] [address] PPO [id number] [id number] 2020 Unknown [id number] 2020 Unknown [id number]. 1.13.159.2.7.3.6 [id number] 1988 Unknown [id number] 2.840.1.449261.3.579.2.479 1988 Unknown [id number] 2.16840.1.849583.3.579.2.479 1988 Unknown [id number] 2.840.1.767242.3.579.2479 1988 Unknown [id number] 2.16840.1.141856.3.579.2.479 1988 Unknown [id number] 2.840.1.983361.3.579.2.479 1988 Unknown [id number] 2.16840.1.056063.3.579.2.479 Unknown [id number] 2.840.1.776690.3.579.2.462 Unknown [id number] 2.16840.1.414160.3.579.2.462 Unknown [id number] 2.16840.1.218393.3.579.2.462 Unknown [id number] 2.16840.1.561254.3.579.2.462 Unknown [id number] 2.16840.1.318978.3.579.2.462 Unknown [id number] 2.16840.1.775503.3.579.2.462 Unknown [id number] 2.16.840.1.551689.3.579.2.462 Unknown [id number] 2.16.840.1.497728.3.579.2.462 Unknown [id number] 2.16.840.1.416013.3.579.2.462 Unknown [id number] 2.16.840.1.040912.3.579.2.462 Unknown [id number] 2.840.1.252209.3.579.2.462 Unknown [id number] 2.840.1.656004.3.579.2.462 Unknown [id number] 2.840.1.458270.3.579.2.462 Unknown [id number] 2.840.1.044199.3.579.2.462 Unknown [id number] 2.840.1.758793.3.579.2.462 Unknown [id number] 2.840.1.960618.3.579.2.462 Unknown [id number] 2.840.1.456647.3.579.2.462 Unknown [id number] 2.840.1.895934.3.579.2.462 Unknown [id number] 2.840.1.177436.3.579.2.462 Unknown [id number] 2.840.1.828845.3.579.2.462 Unknown [id number] 2.840.1.432283.3.579.2.462 Unknown [id number] 2.840.1.541553.3.579.2.462 Unknown [id number] 2..840.1.598103.3.579.2.462 Unknown [id number] 2.840.1.686962.3.579.2.462 Unknown [id number] 2.840.1.360193.3.579.2.462 Unknown [id number] 2.16840.1.550461.3.579.2.462 Unknown [id number] 2.840.1.717103.3.579.2.462 Unknown [id number] 2.840.1.959956.3.579.2.462 Unknown [id number] 2.840.1.163520.3.579.2.462 Unknown [id number] 2.840.1.274768.3.579.2.462 Unknown [id number] 2.840.1.985551.3.579.2.462 Unknown [id number] 2.840.1.303451.3.579.2.462 Unknown [id number] 2.840.1.129023.3.579.2.462 Unknown [id number] 2.840.1.249966.3.579.2.462 Unknown [id number] 2.840.1.075072.3.579.2.462 Unknown [id number] 2.840.1.586971.3.579.2.462 Unknown [id number] 2.840.1.985045.3.579.2.462 Unknown [id number] 2.840.1.809137.3.579.2.462 Unknown [id number] 2.840.1.727661.3.579.2.462 Unknown [id number] .840.1.311720.3.579.2.462 Unknown [id number] 2.840.1.175113.3.579.2.462 Unknown [id number] 2.840.1.067777.3.579.2.462 Unknown [id number] 2.840.1.759074.3.579.2.462 Unknown [id number] 2.16.840.1.203379.3.579.2.462 Unknown [id number] 2.16.840.1.506318.3.579.2.462 Unknown [id number] 2.16.840.1.476941.3.579.2.462 Unknown [id number] 2.16.840.1.117747.3.579.2.462 Unknown [id number] 2.16.840.1.621239.3.579.2.462 Unknown [id number] 2.16.840.1.817587.3.579.2.462 Unknown [id number] 2.16.840.1.425070.3.579.2.462 Unknown [id number] 2.16.840.1.848573.3.579.2.462 Unknown [id number] 2.16.840.1.790632.3.579.2.462 Unknown [id number] 2.16.840.1.337393.3.579.2.462 Social History Date Type Detail Facility Start: 03-09-2022 End: 01-13-2025 Tobacco smoking status NHIS Never smoked tobacco [facility] Start: 12-08-2021 End: 04-21-2022 Alcohol intake Current non-drinker of alcohol (finding) [facility] Start: 1990 Sex Assigned At Female [facility] Start: 11-28-2021 End: 04-21-2022 Exposure to SARS-CoV-2 (event) Not sure [facility] Start: 11-03-2021 End: 10-20-2023 Tobacco smoking status NHIS Unknown if ever smoked [facility] Start: 11-01-2019 Non-smoker [facility] Start: 01-18-2022 End: 01-28-2022 Exposure to SARS-CoV-2 (event) Unable to assess [facility] Start: 03-09-2022 Tobacco use and exposure Smokeless tobacco non-user [facility] Start: 12-08-2021 End: 05-12-2023 History of Social function [facility] Start: 12-08-2021 End: 05-12-2023 Tobacco use panel [facility] Adult Depression Screening Assessment 0 [facility] Start: 12-08-2021 Gender identity Identifies as female gender (finding) [facility] Start: 12-08-2021 Sexual orientation Heterosexual (yolanda frias) [facility] Start: 09-24-2024 End: 10-17-2024 Sex Female (finding) [facility] NEGATED: Highlighted row [facility] NEGATED: Highlighted row Not [facility] Medical Equipment Procedure Code Equipment Code Equipment Origin al Text Equipment Identifier Dates Colonoscopy Oesophageal endoscopic ligator, single-useHaemorrhoid ligator ()[id number] FDA Start: 06-11-2024 Goals Date Patient Goal Desired Activity /State Mental Status Date Assessment Result Facility 06-11-2024 Cognitive function Level Of Consciousness Sedated [facility] Work Phone: 06-11-2024 Cognitive function Voice/Name [facility] Work Phone: Clinical Notes 12-08-2021 to 02-13-2025 Note Date & Type Note Facility 02-13-2025 Progress note [facility] 02-13-2025 Progress note Note Date/Time February 13, 2025 4:37pm [facility] [address], [address] [place] [address] OFFICE VISIT Date of Service: 02/13/25 MR#: [id number] Acct: [id number] Name: MANDI VALENTE Rep #: [id number] : 1990 Provider: Dr. 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: No Is patient in pain?: No [...] Zika: Zika virus screening: Negative : [facility] Medical History Seasonal allergies Hx of [...] 4 current occupational status: employed current occupation: [employer] Registration PRN current occupational exposures/hazards: No pets [...] physical activity do you participate in: none suraj/islam: Jain seatbelt use: always do you feel safe at home: Yes additional 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 Date Name GA/Weeks Outcome Route Bth Weight Gen Labor Lgth Anesthesia Del Locatn Provider FOB 04/05/18 Vinsen 41 live - full term 9#7oz Male 26 hrs epid ural [employer] Shey Madsen Alvarez 11/01/19 10 spontaneous 08/10/20 Lakisha 37 live - full term 5#14oz Female 10 HR epid ural [employer] Jenni Pino 08/10/20 King 37 live - full term 6#4oz Male 10 HR epid ural [employer] Jenni Pino 03/19/24 Elaine 39 live - full term 8lbs 2oz Female [employer] Dr. Gleason Delivery Date: 04/05/18 Last Updated [...] no vb/lof/ct x. cyst is bothersome again. [facility] US scheduled KW- no vb/lof/ctx. cyst is b othersome again discussed with [facility] scheduled 10/15/24 -?-?-?-?-?-?-?-?-?-?-?-?- 16w 5d [...] Performing Provider: Reina Rashid DO Performing Location: [facility] Administered by: Lauren Osborn on 02/13/25 16:21 Dose Route Admin Location Dispensed Lot Number Expiration Date NDC Stereo Operator 0.5 mL IM Left Deltoid 0.5 mL [id number] 01/06/27 32671-641-36 [employer] VIS Given Date VIS Provided VIS Publication Date 02/13/25 Single Vaccine 24 Eligibility Eligibility Date Funding Source Not Applicable Coding Level of Care Code OB Routine Diagnoses Contraction, [place] Osman O47.9 LGA (large for gestational age) [...] NS Z23 - Encounter for immunization 02/13/25 1031 <Electronically signed by Reina Billings DO> Date _ Reina [place] Romero [facility] Signature: Date (if applicable) CC: ~ [facility] Work Phone: 1(717) 441-955808-01-2025 History and physical note [facility] Medical Records Department [address] [place] [address] OB Triage Physician Note 02/07/25 1433 MR#: [id number] Acct: [id number] Name: MANDI VALENTE Rep #:[id number] : 1990 34 From: Linda Hammond CNM PCP: Dr. 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 Date Name GA/Weeks Outcome Route Bth Weight Gen Labor Lgth Anesthesia Del Locatn Provider FOB 04/05/18 Vinsen 41 live - full term 9#7oz Male 26 hrs epid ural [employer] Shey Madsen Alvarez 11/01/19 10 spontaneous 08/10/20 Lakisha 37 live - full term 5#14oz Female 10 HR epid ural [employer] Jenni Pino 08/10/20 King 37 live - full term 6#4oz Male 10 HR epid ural [employer] Jenni Pino 03/19/24 Elaine 39 live - full term 8lbs 2oz Female [employer] Dr. Gleason Delivery Date: 04/05/18 Last Updated [...] vb/lof/ct x. cyst is bothersome again. [facility] scheduled KW- no vb/lof/ctx. cyst is b othersome again discussed with . [facility] scheduled 10/15/24 -?-?-?-?-?-?-?-?-?-?-?-?- 16w 5d [...] variability reactive no decelerations category I tracing [place]: irregular Contractions Assessment and plan: Reactive NST, reassuring maternal and status patient discharged to home to follow-up in office.. See problem list details for additional plan information. Charges/Coding Procedures Urinary/Genital 52xxx-59xxx: 37774-02 non-stress test Interp 02/07/25 1437 ns ERI> Date _ Linda Hammond CNM Cosigner Signature (if applicable): Date CC: ERI Hammond; Dr. Cholo Smith, DO ~ Signed [facility]07-07-2025 Progress [facility] Women[facility] [address], [address] [place] [address] OFFICE VISIT Date of Service: 01/13/25 MR#: [id number] Acct: [id number] Name: MANDI VALENTE Rep #: [id number] : 1990 Provider: ERI Parry Age/Sex: 34/F [place] [facility] [place]: Signed Intake Vital Signs 11/07/24 09:36 01/03/25 15:03 01/13/25 10:45 Height 5 ft 2 in 5 ft 2 in 5 ft 2 in Weight: 215 lb 8 oz BMI 39.4 BP 126/87 H Intake Visit Reasons: 30 wk ob Chief Complaint: 30wk ob Glazing Machine Operator Required: No Is patient in pain?: No [...] 4 current occupational status: employed current occupation: [employer] Registration PRN current occupational exposures/hazards: No pets [...] physical activity do you participate in: none suraj/islam: Jain seatbelt use: always do you feel safe at home: Yes additional social history: 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 Date Name GA/Weeks Outcome Route Bth Weight Gen Labor Lgth Anesthesia Del Locatn Provider FOB 04/05/18 Vinsen 41 live - full term 9#7oz Male 26 hrs epid ural [employer] [facility] Shey Madsen Alvarez 11/01/19 10 spontaneous 08/10/20 Lakisha 37 live - full term 5#14oz Female 10 HR epid ural [facility] Jenni Pino 08/10/20 King 37 live - full term 6#4oz Male 10 HR epid ural [facility] Jenni Pino 03/19/24 Elaine 39 live - full term 8lbs 2oz Female [employer] [facility] Dr. Gleason Delivery Date: 04/05/18 Last Updated [...] vb/lof/ct x. cyst is bothersome again. [facility] scheduled KW- no vb/lof/ctx. cyst is b othersome again discussed with SM. [facility] scheduled 10/15/24 -?-?-?-?-?-?-?-?-?-?-?-?- 16w 5d [...] Cosigner Signature: Date (if applicable) CC: ~ [facility] [id number] [facility] [address] [place] [address], [address] [place] [address] OFFICE VISIT Date of Service: 12/04/24 MR#: [id number] Acct: [id number] Name: MANDI VALENTE Rep #: [id number] : 1990 Provider: Dr. 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 Date Name GA/Weeks Outcome Route Bth Weight Infant Gen Labor Lgth Anes thes ia Del Locatn Provider FOB 04/05/18 Vinsen 41 live - full term 9#7oz Male 26 hrs epid ural [facility] Katkeily Madsen Alvarez 11/01/19 10 spontaneous 08/10/20 Lakisha 37 live - full term 5#14oz Female 10 HR epid ural [facility] Jenni Pino 08/10/20 Abran 37 live - full term 6#4oz Male 10 HR epid ural [facility] Jenni Pino 03/19/24 Elaine 39 live - full term 8lbs 2oz Female [facility] Dr. Gleason Delivery Date: 04/05/18 Last Updated [...] no vb/lof/ct x. cyst is bothersome again. [facility] scheduled KW- no vb/lof/ctx. cyst is b othersome again discussed with SM. [facility] scheduled 10/15/24 -?-?--?-?-?-?-?-?-?-?-?-?- 16w 5d [...] Heather DO> Date _ Reina Rashid DO [facility] Signature: Date (if applicable) CC: ~ [facility]05-28-2025 Progress note Author Reina Romero [facility] Note Date/Time December 04, 2024 3:24p [facility] Women's [address], [address] [place] [address] OFFICE VISIT Date of Service: 12/04/24 MR#: [id number] Acct: [id number] Name: CHOCOIMELDAMANDIJUVE YOU Rep #: [id number] : 1990 Provider: Dr. 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 Date Name GA/Weeks Outcome Route Bth Weight Gen Labor Lgth Anes thes ia Del Locatn Provider FOB 04/05/18 Vinsen 41 live - full term 9#7oz Male 26 hrs epid ural [facility] Shey Madsen Alvarez 11/01/19 10 spontaneous 08/10/20 Lakisha 37 live - full term 5#14oz Female 10 HR epid ural [facility] Jenni Pino 08/10/20 Abran 37 live - full term 6#4oz Male 10 HR epid ural [facility] Jenni Pino 03/19/24 Elaine 39 live - full term 8lbs 2oz Female [facility] Dr. Gleason Delivery Date: 04/05/18 Last Updated [...] vb/lof/ct x. cyst is bothersome again. [facility] scheduled KW- no vb/lof/ctx. cyst is b othersome again discussed with . [facility] scheduled 10/15/24 -?-?--?-?-?-?-?-?-?-?-?-?- 16w 5d [...] Cosigner Signature: Date (if applicable) CC: ~ [facility] Work Phone: 1(519) 214-672805-01-2025 Evaluation note* Diagnosis Onset Date Resolution Status [...] multigravida acute February 13, 2025 3:56pm Contraction, [place]man acute February 13, 2025 3:56pm Gestational [...] 2025 3:56pm Chronic anemia chronic February 3:56pm [facility] Work Phone: 1(993) 368-141704-08-2025 Evaluation note* Diagnosis Onset Date Resolution Status [...] prior , currently acute Au 2024 11:50am [facility] Work Phone: 1(895) 520-293103-31-2025 Evaluation note* Diagnosis Onset Date Resolution Status [...] Chronic anemia chronic January 13, 2025 10:41am [facility] Work Phone: 1(822) 564-434303-31-2025 Evaluation note* Diagnosis Onset Date Resolution Status [...] 2:52pm Inclusion cyst of vulva acute [facility] 2024 2:52pm Lymphocytic colitis acute January 03, [...] Chronic anemia chronic January 29, 2025 9:53am [facility] Work Phone: 1(193) 679-935003-04-2025 Evaluation note* Diagnosis Onset Date Resolution Status Admit Date Abdominal pain acute September 10, 2024 2:47pm Advanced maternal age (AMA) in acute September 10, 2024 2:47pm Gestational hypertension acute September 10, 2024 2:47pm Hemorrhoids acute September 10 2:47pm History of miscarriage, currently acute September 10 2:47pm Hx of pre-eclampsia in prior , currently acute [facility] 2024 2:47pm Hx of twin in [...] of pre-eclampsia in prior , currently acute [facility] 2024 1:53pm Hx of twin in [...] Chronic anemia chronic December 04, 2024 2:48pm [facility] Work Phone: 1(977) 996-168903-04-2025 Evaluation note* Diagnosis Onset Date Resolution Status [...] pre-eclampsia in prior , currently acute [facility] 2024 1:53pm Hx of twin in prio [...] Chronic anemia chronic January 03, 2025 2:52pm [facility] Work Phone: 1(983) 613-350902-04-2025 Evaluation note* Diagnosis Onset Date Resolution Status [...] of pre-eclampsia in prior , currently acute [facility] 2024 2:47pm Hx of twin in prio r acute September 10, 2024 2:47pm Inclusion cyst of vulva acute [facility] 2024 2:47pm Lymphocytic colitis acute September 10, 2024 2:47pm Obesity affecting acute September 10, 2024 2:47pm Pelvic floor weakness in female acute September 10, 2024 2:47pm Perianal candidiasis acute [facility] 2024 2:47pm acute September 10 2:47pm Rectal pain acute September 10 2:47pm Short interval between pregnancies affecting in first trimester, acute [facility] 2024 2:47pm Supervision of high-risk acute [...] of pre-eclampsia in prior , currently acute [facility] 2024 1:53pm Hx of twin in [...] Chronic anemia chronic December 04, 2024 2:48pm [facility] Work Phone: 1(285) 823-284712-16-2024 Evaluation note* Diagnosis Onset Date Resolution Status [...] of pre-eclampsia in prior , currently acute [facility] 2024 2:47pm Hx of twin in prio r acute September 10, 2024 2:47pm Inclusion cyst of vulva acute [facility] 2024 2:47pm Lymphocytic colitis acute September 10, 2024 2:47pm Obesity affecting acute September 10, 2024 2:47pm Pelvic floor weakness in female acute September 10, 2024 2:47pm Perianal candidiasis acute [facility] 2024 2:47pm acute September 10 2:47pm Rectal pain acute September 10 2:47pm Short interval between pregnancies affecting in first trimester, acute [facility] 2024 2:47pm Supervision of high-risk acute September 10, 2024 2:47pm Chronic anemia chronic September 10, 2024 2:47pm [facility] Work Phone: 1(428) 613-624012-16-2024 Evaluation note* Diagnosis Onset Date Resolution Status [...] of pre-eclampsia in prior , currently acute [facility] 2024 2:47pm Hx of twin in [...] between pregnancies affecting in first trimester, acute [facility] 2024 2:47pm Supervision of high-risk acute [...] of pre-eclampsia in prior , currently acute [facility] 2024 1:53pm Hx of twin in [...] Chronic anemia chronic October 15, 2024 12:44pm [facility] Work Phone: 1(346) 268-762612-03-2024 [facility]11-03-2023 NoteHNO ID: [id number] Author: Kelly Calabrese PA-C Service: ? Author Type: Physician Control Director Type: Progress Notes Filed: 05/12/2023 2:41 PM Note Text: Kelly Calabrese PA-C Department of Orthopaedics Orthopaedics [address] [address] Dept: [phone] May 12, 2023 SUBJECTIVE: CHIEF COMPLAINT: Established [...] acute abnormality. Full imaging report available in [facility]. ASSESSMENT: S86.812A Strain of calf muscle, left, initial encounter (primary encounter diagnosis) PLAN: Reviewed images taken today. Recommendation for calf strain is physical therapy and activity modification as needed. Patient agreeable with plan and will follow up in 8 weeks. FOLLOW UP INSTRUCTIONS: 8 weeks IMAN [facility]11-03-2023 NoteHNO ID: [id number] Author: Rhonda Hackett Tech Service: ? Author Type: Laundry Superintendent Type: Progress Notes Filed: 05/12/2023 12:33 PM [...] BY: Maggy Lim May 12, 2023 12:32 PMMercy Health Willard [id number] History of Present illness Narrative* Kelly Calabrese PA-C - 05/12/2023 10:51 AM EDT Kelly Calabrese PA-C Department of Orthopaedics Orthopaedics [address] [place] [address] Dept: [phone] May 12, 2023 SUBJECTIVE: CHIEF COMPLAINT: Established [...] acute abnormality. Full imaging report available in [facility]. ASSESSMENT: S86.812A Strain of calf muscle, left, initial encounter (primary encounter diagnosis) PLAN: Reviewed images taken today. Recommendation for calf strain is physical therapy and activity modification as needed. Patient agreeable with plan and will follow up in 8 weeks. FOLLOW UP INSTRUCTIONS: 8 weeks Kelly Calabrese PA-C documented in this encounterWayne Hospital11-03-2023 History of Present illness Narrative* Rhonda [...] 12, 2023 12:32 PM documented in this encounterWayne Hospital08-25-2023 NotePap Smear Specimen AdequacyAugus2022 11:39amComment.Satisfactory for evaluation. Endocervical and/or squamous metaplasticcells (endocervical component)are present.[facility] INTERFACED A#[id number] Health AdministrationComment on above: Satisfactory for evaluation. Endocervical and/or squamous metaplasticcells (endocervical component)are present.03-03-2023 NotePap Smear Specimen Adequacy March 03, 2023 10:39amComment.Satisfactory for evaluation. Endocervical and/or squamous metaplasticcells (endocervical component)are present.[facility] INTERFACED A#[id number] Health AdministrationComment on above:Satisfactory for evaluation. Endocervical and/or squamous metaplasticcells (endocervical component)are present.03-01-2023 NoteHNO ID: [id number] Author: Cathryn Morrell, DO Service: ? Author [...] answered. Follow up prn Cathryn Morrell D.O. M.P.H.[facility]08-23-2023 NoteHNO ID: [id number] Author: Sydni Ring RT(R) Service: Radiology Author [...] BY: RT Aries(R) March 01, 2023 9:50 AMMercy Health Willard [id number] History of Present illness Narrative* Sydni Ring [...] 01, 2023 9:50 AM documented in this encounterWayne Hospital06-21-2023 NoteHNO ID: [id number] Author: Cathryn Morrell, DO Service: ? Author [...] plan. All questions answered. Cathryn Morrell D.O., M.P.H.[facility]06-21-2023 History of Present illness Narrative* Cathryn Morrell, [...] answered. Cathryn Milner.Hazel. M.P.H. documented in this encounterWayne Hospital06-01-[address] Pelayo [facility] December 08, 2022 1:33pm Note Date/Time December 08, 2022 9:03a [facility] Medical Records Department [address] [place] [address] Emergency Department Summary 12/08/22 MR#: [id number] Acct: [id number] Name: MANDI VALENTE Rep #:[id number] : [...] immune issues. No trouble swallowing. No headache. [facility] Medical History Allergic dermatitis Anal fissure Chronic [...] for 4 days (days 2-5) PO vitamin R89-otbsr acid 1-0.8 mg Tablet 1 tab PO DAILY Primary Care Provider: Cholo Smith Referrals: Cholo Smith DO [Primary Care Provider] - 2 Days for wound check Disposition Disposition: Home, Self Care What to do if you have Problems For any increased pain, shortness of breath, bleeding, nausea or vomiting, chestpain, or any unexpected problems, contact your Primary Care Provider. Call [facility] ([phone]) or report to the closest Emergency Room. Call 911 if necessary. 12/08/22 1333 <Electronically signed by Santi Pelayo MD> Cosigner Signature (if applicable): CC: Dr. Cholo Smith DO ~ Signed [facility] Work Phone: 1(121) 400-656705-15-2023 NoteHNO ID: [id number] Author: Pierre Hicks PA-C Service: ? Author Type: Physician Control Director Type: Progress Notes Filed: 11/21/2022 10:28 AM [...] Follow up in 4 weeks with IMAN [facility]05-03-2023 Miscellaneous Notes* Telephone Encounter - Rhonda Sow [...] have questions, patient can be reached at [phone] documented in this encounterWayne Hospital05-02-2023 NoteHNO ID: [id number] Author: Xochitl Conti APRN.CRNA Service: Anesthesiology Author Type: Nurse Lapper Type: Anesthesia Procedure Notes Filed: 11/08/2022 11:43 AM Note Text: ANESTHESIOLOGY PROCEDURE NOTE Airway General Information Procedure Start Time/Medication Administration: 11/08/2022 11:18 AM Patient location during procedure: OR Timeout Performed Pre-procedure: timeout performed Consent Obtained: Yes 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 Author [...] treatment were discussed with (more content not included)...[facility]04-26-2023 History of Present illness Narrative* Cathryn Morrell, [...] consent for surgical intervention. documented in this encounterWayne Hospital04-21-2023 History and physical note * Stefany [...] fevers. Neuro: No history of TIA's, stroke, ISO COORDINATOR tumor, impaired sensorium, hemiplegia, paraplegia or quadraplegia. No neurological symptoms or problems. Respiratory: No history of current cough or dyspnea, or pneumonia in the past 6 weeks. No history of respiratory/pulmonary symptoms or problems. Cardiovascular: No history of HTN requiring medication, no history of angina, CHF, [place], cardiac surgery or stents. Denies rest pain, gangrene or revascularization/amputation for PVD. No history of cardiovascular symptoms or problems. GI: No history of GI symptoms or problems. No history of esophageal varices, recent ascites, or ETOH greater than 2 drinks per day. : No history of dysuria, frequency or incontinence,, stones or chronic kidney disease SEAM STAY STITCHER: Negative for abnormal vaginal bleeding, abnormal vaginal [...] 2022 TIME: 8:32 AM documented in this encounterWayne Hospital04-21-2023 Instructions* Patient Instructions* Stefany De La Torre PA-C - 10/28/2022 8:33 AM EDT PATIENT PREOPERATIVE INSTRUCTIONS Cathryn Morrell,* has scheduled you for your procedure at this [facility] center: [facility]: [phone] -- [address] [address]. Please read below carefully for your personalized [...] Procedures: - YOU MUST HAVE A RESPONSIBLE UNIT LEADER TAKE YOU HOME. A TURF AND GROUNDS SUPERVISOR OR IT GENERALIST CANNOT BE MADE A RESPONSIBLE UNIT LEADER. - We recommend that a responsible person [...] Advance Directive, please fax a copy to [phone] or email to for it to be [...] De La Torre PA-C documented in this encounterWayne Hospital03-27-2023 Discharge summary Author Hodan Ling [facility] October 03, 2022 7:20am Note Date/Time October 03, 2022 7:2 0am [facility] Physical Therapy [facility] [address] [place] [address] / REHABILITATION SERVICES DISCHARGE SUMMARY MR#: [id number] Acct: [id number] Name: MANDI VALENTE Rep #: [id number] [...] please feel free to call me at [phone]. Thank you for the referral of thispatient. Sincerely, Hodan Ling, DPT Balance/Gait/Functional tests - Balance/Special Test Scores Lower Extremity Functional Score: 61 <Electronically signed by Hodan Ling DPT> 10/03/22 0720 CC: Dr. Cathryn Morrell, DO; Dr. Cholo Smith, DO ~ ELR Signed [facility] Work Phone: 1(329) 735-781903-10-2023 NoteHNO ID: [id number] Author: Cathryn Morrell DO Service: ? Author Type: Physician Type: Progress Notes Filed: 09/27/2022 2:02 PM Note Text: VIRTUAL VISIT PROGRESS NOTE This is a virtual visit using Sec[employer] video visit. It required patient-provider interaction for [...] Signed: Mateo Aldana, at 10:11 EST , [facility] images PLAN: There are no Patient Instructions on file for this visit. I spent a total of 20 minutes on the date of the service which included preparing to see the patient, [id number] patient care, completing clinical documentation, obtaining and/or [...] visit. Either the patient or their legal technology sales representative has been informed of the risks and benefits of -- and alternatives to -- treatment through a remote evaluation and consents to proceed with the evaluation shazia (more content not included)...[facility]03-06-2023 Miscellaneous Notes* Telephone Encounter - Brionna Mendez - 09/12/2022 1:59 PM EST Patient is scheduled. documented in this encounterWayne Hospital02-09-2023 NoteHNO ID: [id number] Author: Cathryn Morrell DO Service: ? Author [...] post surgery and injection Follow up after mriUk [facility]02-09-2023 History of Present illness Narrative* Cathryn Morrell, [...] Follow up after mri documented in this encounterWayne Hospital12-28-2022 NoteHNO ID: [id number] Author: Cathryn Morrell DO Service: ? Author Type: Physician Type: Progress Notes Filed: 07/06/2022 2:47 PM Note Text: Large Joint Arthro/Inj: R greater trochanteric bursa Informed Consent Consent Obtained: Verbal Rock Protocol A moment to CARE was completed. [...] Erythema: absent Sensation: norm (more content not included)...[facility] 07-06-2022 NoteHNO ID: [id number] Author: ALBA Hoskins Service: Radiology Author Type: [...] BY: ALBA Hoskins July 06, 2022 3:13 PMMercy Health Willard [id number] History of Present illness Narrative* Cathryn Morrell, - 07/06/2022 12:53 PM ESTAssociated Order(s): Large Joint Arthro/Inj: R greater trochanteric bursa Post-Procedure Diagnose(s): Trochanteric bursitis of right hip; Iliotibial band syndrome of right side Images from the original note were not included. Large Joint Arthro/Inj: R greater trochanteric bursa Informed Consent Consent Obtained: Verbal Rock Protocol A moment to CARE was completed. [...] plan. All questions answered. documented in this encounterWayne Hospital12-28-2022 History of Present illness Narrative* Nida [...] 06, 2022 3:13 PM documented in this encounterWayne Hospital10-13-2022 History of Present illness Narrative* Cathryn [...] side d/t throbbing/burning pain. documented in this encounterWayne Hospital08-31-2022 History of Present illness Narrative* Cathryn [...] plan. All questions answered. documented in this encounterWayne Hospital08-22-2022 History of Present illness Narrative* Nena [...] 28, 2022 2:50 PM documented in this encounterWayne Hospital08-22-2022 Miscellaneous Notes* Telephone Encounter - Christy Marion - 02/28/2022 1:17 PM EDT Patient has been scheduled by LAURA BENTON [[id number]] * Telephone Encounter - Christy Marion - 02/28/2022 12:10 PM EDT Called patient to schedule DVT Ultrasound, patient wanted to try aldo, we cannot schedule for them so I have her the number to call to schedule. Patient will call back if she cannot get scheduled there, to get scheduled in [place]. [facility] History of Past illness Narrative* Problem Noted Date Resolved Date Trochanteric bursitis of right hip 02/22/2022 02/22/2022 It band syndrome, unspecified laterality 022 02/22/2022 documented as of this encounter (statuses as of 02/28/2022) [facility] of [facility] illness Narrative* Problem Noted Date Resolved Date Trochanteric bursitis of right hip 02/22/2022 02/22/2022 It band syndrome, unspecified laterality 022 02/22/2022 documented as of this encounter (statuses as of 03/01/2022) [facility] of Past illness Narrative* Problem Noted Date Resolved Date Trochanteric bursitis of right hip 02/22/2022 02/22/2022 It band syndrome, unspecified laterality 022 02/22/2022 documented as of this encounter (statuses as of 03/09/2022) [facility] Narrative* Problem Noted Date Resolved Date Trochanteric bursitis of right hip 02/22/2022 02/22/2022 It band syndrome, unspecified laterality 022 02/22/2022 documented as of this encounter (statuses as of 04/21/2022) [facility] of [facility] illness Narrative* Problem Noted Date Resolved Date Trochanteric bursitis of right hip 02/22/2022 02/22/2022 It band syndrome, unspecified laterality 022 02/22/2022 documented as of this encounter (statuses as of 07/13/2022) [facility] of [facility] illness Narrative* Problem Noted Date Resolved Date Trochanteric bursitis of right hip 02/22/2022 02/22/2022 It band syndrome, unspecified laterality 022 02/22/2022 documented as of this encounter (statuses as of 07/13/2022) [facility] of [facility] Narrative* Problem Noted Date Resolved Date Trochanteric bursitis of right hip 02/22/2022 02/22/2022 It band syndrome, unspecified laterality 022 02/22/2022 documented as of this encounter (statuses as of 08/18/2022) [address]16-2022 History of Past illness Narrative* Problem Noted Date Resolved Date Trochanteric bursitis of right hip 02/22/2022 02/22/2022 It band syndrome, unspecified laterality 022 02/22/2022 documented as of this encounter (statuses as of 09/12/2022) [address]16-2022 History of Past illness Narrative* Problem Noted Date Resolved Date Trochanteric bursitis of right hip 02/22/2022 02/22/2022 It band syndrome, unspecified laterality 022 02/22/2022 documented as of this encounter (statuses as of 09/26/2022) [address]16-2022 History of Past illness Narrative* Problem Noted Date Resolved Date Trochanteric bursitis of right hip 02/22/2022 02/22/2022 It band syndrome, unspecified laterality 022 02/22/2022 documented as of this encounter (statuses as of 10/31/2022) [facility] Narrative* Problem Noted Date Resolved Date Trochanteric bursitis of right hip 02/22/2022 02/22/2022 It band syndrome, unspecified laterality 022 02/22/2022 documented as of this encounter (statuses as of 11/08/2022) [facility] Narrative* Problem Noted Date Resolved Date Trochanteric bursitis of right hip 02/22/2022 02/22/2022 It band syndrome, unspecified laterality 022 02/22/2022 documented as of this encounter (statuses as of 12/23/2022) [address]16-2022 History of Past illness Narrative* Problem Noted Date Resolved Date Trochanteric bursitis of right hip 02/22/2022 02/22/2022 It band syndrome, unspecified laterality 022 02/22/2022 documented as of this encounter (statuses as of 12/28/2022) [address]16-2022 History of Past illness Narrative* Problem Noted Date Diagnosed Date Resolved Date Trochanteric bursitis of right hip 02/22/2022 02/22/2022 It band syndrome, unspecified laterality 02/07/2022 02/22/2022 documented as of this encounter (statuses as of 05/13/2023) [facility] Miscellaneous Notes* Telephone Encounter - Brionna Mendez - 01/28/2022 3:11 PM EDT Patient had MRI done 12/08/21. * Telephone Encounter - Jessica Contreras - 01/28/2022 11:38 AM EDT Please contact the patient to schedule an mri prior to her surgery date of 02/22/22. documented in this encounterWay[facility]07-[facility] History of Present illness Narrative* Cathryn [...] films and my findings are the same. [facility] Imaging Services [address] [place] [address] Lower Ext Joint Only (Routine) MR#: [id number] Acct: [id number] Name: MANDI VALENTE Willian Rep #: [id number] : 1990 F 31 From: Mateo Aldana MD PCP: Dr. Cholo Smith, DO Status: REG CLI Study: Lower Ext Joint Only (Routine) Date of Exam: 0 12/31/21 Exam# [id number] Ordering Dr: Cathryn Morrell STUDY: MRI RIGHT [...] consent for surgical intervention. documented in this encounterWayne Hospital06-08-2022 Miscellaneous Notes* Telephone Encounter - Brionna Mendez - 12/15/2021 1:50 PM EDT I called and spoke with patient, she wants to call her insurance to see if she met her deductible because she works at [employer] and gets a discount there, vs getting the MRI done at a [facility] facility. * Telephone Encounter - Jessica Contreras - 12/15/2021 10:40 AM EDT Please contact the patient to have her mri scheduled with [facility]. Looks like she may have it scheduled at [facility]. It would benefit her to have it here more so the results and images are readily available for the surgeon yet it is still in her area. documented in this encounterWayne [facility]06-[facility] History of Present illness Narrative* Cathryn [...] meloxicam, physcial therapy, cortisone injection HPI: Mandi aVlente is a 31 year old female presenting [...] treatment plan as discussed. documented in this encounterWayne Hospital06-01-2022 Miscellaneous Notes* Allied Health - RT [...] 08, 2021 3:18 PM documented in this encounterWayne HospitalChi complaint+Reason for visit Narrative* Chief Complaint COVID-19 MASTODYNIA Rash COVERING BODY Rash TROCHANTERIC BURSITIS RIGHT HIP/RX HERE TROCHANTERIC BURSITIS OF RIGHT HIP Reason for Visit Allergic dermatitis Rash [facility] Work Phone: Evaluation note* Diagnosis Hip pain- Primary Pain in joint, pelvic region and thigh Pain in hip Pain in joint, pelvic region and thigh Trochanteric bursitis of right hip Enthesopathy of hip region Iliotibial band syndrome of right side Other disorder of muscle, ligament, and fascia documented in this encounter [facility] note* Diagnosis Pain Generalized pain [facility]* Diagnosis Onset Date Resolution Status Constipation acute Lymphocytic colitis acute Trochanteric bursitis of right hip acute Back pain noneactive Trochanteric bursitis of right hip acute [facility] Work Phone: Evaluation note* Diagnosis Iliotibial band syndrome of right side- Primary Other disorder of muscle, ligament, and fascia Pain in hip Pain in joint, pelvic region and thigh Trochanteric bursitis of right hip Enthesopathy of hip region [facility]* Diagnosis Right calf pain [facility]* Diagnosis Trochanteric bursitis of right hip- Primary Enthesopathy of hip region Iliotibial band syndrome of right side Other disorder of muscle, ligament, and fascia [facility]* Diagnosis Trochanteric bursitis of right hip- Primary Enthesopathy of hip region Iliotibial band syndrome of right side Other disorder of muscle, ligament, and fascia documented [facility]* Diagnosis Trochanteric bursitis of right hip- Primary Enthesopathy of hip region Iliotibial band syndrome of right side Other disorder of muscle, ligament, and fascia [facility] Diagnosis Trochanteric bursitis of right hip- Primary Enthesopathy of hip region [facility] Diagnosis Onset Date Resolution Status Allergic dermatitis acute Rash noneactive [facility] Work Phone: Evaluation note* Diagnosis Trochanteric bursitis of right hip- Primary Enthesopathy of hip region Iliotibial band syndrome of right side Other disorder of muscle, ligament, and fascia Trochanteric bursitis of right hip Enthesopathy of hip region Iliotibial band syndrome of right side Other disorder of muscle, ligament, and fascia documented [facility]* Diagnosis Preop examination- Primary Preoperative examination, unspecified Trochanteric bursitis of right hip Enthesopathy of hip region Iliotibial band syndrome of right side Other disorder of muscle, ligament, and fascia documented [facility] Diagnosis Trochanteric bursitis of right hip- Primary Enthesopathy of hip region Iliotibial band syndrome of right side Other disorder of muscle, ligament, and fascia documented [facility]* Diagnosis Onset Date Resolution Status URI (upper respiratory infection) acute [facility] Work Phone: Evaluation note* Diagnosis S/P orthopedic surgery, follow-up exam- Primary Follow-up examination, following other surgery Trochanteric bursitis of right hip Enthesopathy of hip region Iliotibial band syndrome of right side Other disorder of muscle, ligament, and fascia documented [facility] this [facility]* Diagnosis Onset Date Resolution Status Acute bacterial sinusitis ac [facility] Work Phone: Evaluation note* Diagnosis Strain of calf muscle, left, initial encounter- Primary [facility] encounter [facility]* Diagnosis Onset Date Resolution Status Acute bacterial sinusitis ac [place] acute [facility] Work Phone: Evaluation note* Diagnosis Onset Date Resolution Status AMA (advanced maternal age) multigravida 35+ acute External hemorrhoids acute History of miscarriage, currently acute Hx of pre-eclampsia in prior , currently acute Lower GI bleeding acute Lymphocytic colitis acute acute Supervision of high-risk acute Tilted uterus acute Chronic constipation chronic [facility] Work Phone: Evaluation note* Diagnosis Onset Date [...] colitis acute acute Supervision of high-risk acute [facility] Work Phone: Evaluation note* Diagnosis Pre-operative examination- Primary Preoperative examination, unspecified It band syndrome, unspecified laterality Class 1 obesity due to excess calories without serious comorbidity with body mass index (BMI) of 31.0 to 31.9 in adult Pain of left calf Pain in limb [facility] Pre-operative examination- Primary Preoperative [...] ClinicHistory and physical note Author Linda Hammond [facility] Note Date/Time February 07, 2025 2:[address] [facility] Medical Records Department [address] [place] [address] OB Triage Physician Note 02/07/25 1433 MR#: [id number] Acct: [id number] Name: MANDI VALENTE Rep #:[id number] : 1990 34 From: Linda Hammond CNM PCP: Dr. 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 Date Name GA/Weeks Outcome Route Bth Weight Gen Labor Lgth Anesthesia Del Locatn Provider FOB 04/05/18 Vinsen 41 live - full term 9#7oz Male 26 hrs epid ural [employer] Shey Pino 11/01/19 10 spontaneous 08/10/20 Lakisha 37 live - full term 5#14oz Female 10 HR epid ural [employer] Jenni Pino 08/10/20 King 37 live - full term 6#4oz Male 10 HR epid ural [employer] Jenni Pino 03/19/24 Elaine 39 live - full term 8lbs 2oz Female [employer] Dr. Gleason Delivery Date: 04/05/18 Last Updated by: Merna Bermeo IOL post dates Delivery Date: 11/01/19 Last Updated by: Merna Bermeo D&C, blighted Ovum Delivery Date: 08/10/20 Last Updated by: Mernasa Lidna Bermeo IOL @ 37wks Twins, Gestational HTN/pre-e [...] no vb/lof/ct x. cyst is bothersome again. [facility] US scheduled KW- no vb/lof/ctx. cyst is b othersome again discussed with SM. [facility] scheduled 10/15/24 -?-?-?-?-?-?-?-?-?-?-?-?- 16w 5d [...] irregular q4-12 Assessment & Plan (1) Contraction, [place]: COMMENT: fingertip per nursing dilated with less intense/frequency in ctx. (2) Hx of pre-eclampsia in prior , currently : COMMENT: negative labs . bp stable in WP. headache resolved. PLAN: Plan Patient presents for triage evaluation secondary to contractions. FHT: Moderate variability reactive no decelerations category I tracing [place]: irregular Contractions Assessment and plan: Reactive NST, reassuring maternal and status patient discharged to home to follow-up in office.. See problem list details for additional plan information. Charges/Coding Procedures Urinary/Genital 52xxx-59xxx: 91000-45 non-stress test Interp 02/07/25 1437 <Electronically signed by Linda douglas CNM> Date _ Linda Garcia Signature (if applicable): Date CC: ERI Hammond; Dr. Cholo Smith, DO ~ Signed [facility] Work Phone: Progress note Author Lawson Parry [facility] Note Date/Time January 13, 2025 11:06 am [facility] [address], [address] [place] [address] OFFICE VISIT Date of Service: 01/13/25 MR#: [id number] Acct: [id number] Name: MANDI VALENTE Rep #: [id number] : 1990 Provider: ERI Parry Age/Sex: 34/F [place] [facility] Status: Signed Intake Vital Signs 11/07/24 09:36 01/03/25 15:03 01/13/25 10:45 Height 5 ft 2 in 5 ft 2 in 5 ft 2 in Weight: 215 lb 8 oz BMI 39.4 BP 126/87 H Intake Visit Reasons: 30 wk ob 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 Date Name GA/Weeks Outcome Route Bth Weight Gen Labor Lgth Anesthesia Del Locatn Provider FOB 04/05/18 Vinsen 41 live - full term 9#7oz Male 26 hrs epid ural [employer] Shey Madsen Alvarez 11/01/19 10 spontaneous 08/10/20 Lakisha 37 live - full term 5#14oz Female 10 HR epid ural [employer] Jenni Pino 08/10/20 King 37 live - full term 6#4oz Male 10 HR epid ural [employer] Jenni Pino 03/19/24 Elaine 39 live - full term 8lbs 2oz Female [employer] Dr. Gleason Delivery Date: 04/05/18 Last Updated [...] vb/lof/ct x. cyst is bothersome again. [facility] scheduled KW- no vb/lof/ctx. cyst is b othersome again discussed with . [facility] scheduled 10/15/24 -?-?-?-?-?-?-?-?-?-?-?-?- 16w 5d [...] SM- no vb lof cr ampingboy on [facility]- no vb lof cramping boy [...] Cosigner Signature: Date (if applicable) CC: ~ [facility] [employer] Work Phone: [facility] for referral (narrative)* Diagnostic Procedure Only (Routine) - Closed Specialty Diagnoses / Procedures Referred By Contac t Referred To Contact XR IMAGING Diagnoses Pain Procedures XR HIP GENERAL 3V PELV/AP/LAT RIGHT RADEX HIP UNILATERAL WITH PELVIS 2-3 VIEWS Cathryn Morrell DO [address] [id number] Xr Imaging Referral ID Status Reason Start Date Expiration Date V isits Requested Visits Authorized [id number] Closed Auto-Generate d Referral 12/02/2021 01/01/2023 1 1 [facility] for referral (narrative)* Diagnostic Procedure Only (Urgent) - Closed Specialty Diagnoses / Procedures Referred By Contac t Referred To Contact US IMAGING Diagnoses Right calf pain Procedures US DVT LOWER RT DUP-SCAN XTR VEINS UNILATERAL/LIMITED STUDY Kelly Johnson PA-C [address] [place] [address] Us Imaging Referral ID Status Reason Start Date Expiration Date V isits Requested Visits Authorized [id number] Closed Auto-Generate d Referral 02/28/2022 03/30/2023 1 1 [facility] for referral (narrative)* Diagnostic Procedure Only (Routine) - Closed Specialty Diagnoses / Procedures Referred By Contac t Referred To Contact XR IMAGING Diagnoses Pain of left calf Procedures XR TIBIA FIBULA 2V AP/LAT LEFT RADIOLOGIC EXAMINATION TIBIA & FIBULA 2 VIEWS Kelly Calabrese PA-C [address] [place] [address] [place] [address] Referral ID Status Reason Start Date Expiration Date V isits Requested Visits Authorized [id number] Closed Auto-Generate d Referral 05/08/2023 06/06/2024 1 1 [facility] for referral (narrative)* Diagnostic Procedure Only (Routine) - Closed Specialty Diagnoses / Procedures Referred By Contac t Referred To Contact XR IMAGING Diagnoses Pain in left hip Procedures XR HIP GENERAL 3V PELV/AP/LAT LEFT RADEX HIP UNILATERAL WITH PELVIS 2-3 VIEWS Kelly Calabrese PA-C [address] [place] [address] [place] [address] Referral ID Status Reason Start Date Expiration Date V isits Requested Visits Authorized [id number] Closed Auto-Generate d Referral 02/08/2023 03/09/2024 1 1 [facility] for referral (narrative)* Diagnostic Procedure Only (Routine) - Closed Specialty Diagnoses / Procedures Referred By Contac t Referred To Contact XR IMAGING Diagnoses Pain in right hip Procedures XR HIP GENERAL 3V PELV/AP/LAT RIGHT RADEX HIP UNILATERAL WITH PELVIS 2-3 VIEWS Cathryn Morrell DO [address] [place] [address] [place] [address] Referral ID Status Reason Start Date Expiration Date V isits Requested Visits Authorized [id number] Closed Auto-Generate d Referral 06/28/2022 07/28/2023 1 1 [facility] for referral (narrative)No reason for referral information availableWSt. Rita's [facility] Work Phone[facility] N[facility]ative* Diagnostic Procedure Only (Routine) - Closed Specialty Diagnoses / Procedures Referred By Contac t Referred To Contact XR IMAGING Diagnoses Pain of left calf Procedures XR TIBIA FIBULA 2V AP/LAT LEFT RADIOLOGIC EXAMINATION TIBIA & FIBULA 2 VIEWS Kelly Calabrese PA-C [address] [place] [address] [place] [address] Referral ID Status Reason Start Date Expiration Date V isits Requested Visits Authorized [id number] Closed Auto-Generate d Referral 05/08/2023 06/06/2024 1 1 [facility] for visit Narrative* Diagnostic Procedure Only (Routine) - Closed Specialty Diagnoses / Procedures Referred By Contac t Referred To Contact XR IMAGING Diagnoses Pain in left hip Procedures XR HIP GENERAL 3V PELV/AP/LAT LEFT RADEX HIP UNILATERAL WITH PELVIS 2-3 VIEWS Kelly Calabrese PA-C [address] [place] [address] [place] [address] Referral ID Status Reason Start Date Expiration Date V isits Requested Visits Authorized [id number] Closed Auto-Generate d Referral 02/08/2023 03/09/2024 1 1 [facility] for visit Narrative* Diagnostic Procedure Only (Routine) - Closed Specialty Diagnoses / Procedures Referred By Contac t Referred To Contact XR IMAGING Diagnoses Pain in right hip Procedures XR HIP GENERAL 3V PELV/AP/LAT RIGHT RADEX HIP UNILATERAL WITH PELVIS 2-3 VIEWS Cathryn Morrell DO [address] [place] [address] [place] [address] Referral ID Status Reason Start Date Expiration Date V isits Requested Visits Authorized [id number] Closed Auto-Generate d Referral 06/28/2022 07/28/2023 1 1 [facility] Reason for Referral Specialty Diagnoses / Procedures Referred By Contac t Referred To Contact MR IMAGING Diagnoses Pain in hip Procedures MRI HIP WO IVCON RT MRI ANY JT LOWER EXTREM W/O CONTRAST MATRCathryn Shirley, DO [address] [place] [address] Mr Imaging Referral ID Status Reason Start Date Expiration Date Visits Requested Visits Authorized [id number] Pending Review Auto-Generat ed Referral 12/08/2021 01/07/2023 1 1 Specialty Diagnoses / Procedures Referred By Contac t Referred To Contact [facility] Diagnoses Trochanteric bursitis of right hip Iliotibial band syndrome of right side Procedures CONSULT TO PHYSICAL THERAPY PHYSICAL THERAPY EVALUATION HIGH COMPLEX 45 MINS Cathryn Morrell, DO [address] [place] [address] [facility] [address] [address] Referral ID Status Reason Start Date Expiration Date Visits Requested Visits Authorized [id number] Pending Review Auto-Generat ed Referral 03/09/2022 03/09/2023 1 1 Referral ID Status Reason Start Date Expiration Date Visits Requested Visits Authorized [id number] Pending Review Auto-Generat ed Referral 04/21/2023 1 1 Specialty Diagnoses / Procedures Referred By Contac t Referred To Contact MR IMAGING Diagnoses Trochanteric bursitis of right hip Procedures MRI HIP WO IVCON RT MRI ANY JT LOWER EXTREM W/O CONTRAST MATRL Cathryn Morrell, DO [address] [place] [address] Mr Imaging Referral ID Status Reason Start Date Expiration Date Visits Requested Visits Authorized [id number] Pending Review Auto-Generat ed Referral 08/18/2022 09/17/2023 1 1 Specialty Diagnoses / Procedures Referred By Contac t Referred To Contact [facility] Diagnoses Strain of calf muscle, left, initial encounter Procedures CONSULT TO PHYSICAL THERAPY PHYSICAL THERAPY EVALUATION HIGH COMPLEX 45 MINS Kelly Calabrese PA-C [address] [place] [address] [facility] [place] [address] [place] [address] Referral ID Status Reason Start Date Expiration Date Visits Requested Visits Authorized [id number] Pending Review Auto-Generat ed Referral 05/12/2023 05/11/2024 [...] anemia January 29, 2025 9:53 am Contraction, [place] February 07, 025 11:50am Hx of [...] 3:56pm Advanced maternal age in multigravida Au [facility] 2024 3:56pm Contraction, [place] February 13 3:56pm Gestational hypertension February 13 3:56pm Hemorrhoids February 13, 2025 3:5 6pm History of miscarriage, currently pregna nt February 13, 2025 3:56pm Hx of pre-eclampsia in prior , currently February 13, 2025 3:56pm Hx of twin in prior February 13, 2025 3:56pm Inclusion cyst of vulva February 13, 2025 3:56pm LGA (large for gestational age) fetus Au [facility] 2024 3:56pm Lymphocytic colitis February 13, 2025 [...] Will No September 01 12:13pm Power of Fire Protection Specialist No September 01, 2021 12:13pm Advance Directive Response Recorded Date/ Time Advance Directives No August 11:13am Living Will No September 01 11:13am Power of Fire Protection Specialist No September 01, 2021 11:13am Advance Directive Response Recorded Date/ Time Advance Directives No August 12:13pm Living Will No December 08, 2022 9 :03am Power of Fire Protection Specialist No December 08, 2022 9:03am Advance Directive Response Recorded Date/ Time Advance Directives No August 11:13am Living Will No December 08, 2022 8 :03am Power of Fire Protection Specialist No December 08, 2022 8:03am Advance Directive Response Recorded Date/ Time Living Will Yes March 21, 2024 11:01am Power of Fire Protection Specialist Yes March 11:01am Advance Directives No July 18, 2024 11:52am Living Will Yes June 04 4:15pm Power of Fire Protection Specialist Yes June 04, 2024 4:15pm Name of Medical Power of Fire Protection Specialist June 04, 2024 4:15pm Advance Directive Response Recorded Date/ Time Living Will Yes March 21, 2024 11:01am Do you have a Healthcare Power of Fire Protection Specialist? Yes March 21, 2024 11:01am Advance Directives No July 18, 2024 11:52am Living Will Yes June 04 4:15pm Do you have a Healthcare Power of Fire Protection Specialist? Yes June 04, 2024 4:15pm Name of Medical Power of Fire Protection Specialist June 04, 2024 4:15pm Advance Directive Response Recorded Date/ Time Living Will Yes March 21, 2024 11:01am Do you have a Healthcare Power of Fire Protection Specialist? Yes March 21, 2024 11:01am Advance Directives No July 18, 2024 11:52am Living Will Yes October 11, 2024 9:53pm Do you have a Healthcare Power of Fire Protection Specialist? Yes October 11, 2024 9:53pm Name of Medical Power of Fire Protection Specialist October 11, 2024 9:53pm Advance Directive Response Recorded Date/ Time Advance Directives No July 18, 2024 11:52am Living Will Yes October 11, 2024 9:53pm Do you have a Healthcare Power of Fire Protection Specialist? Yes October 11, 2024 9:53pm Name of Medical Power of Fire Protection Specialist October 11, 2024 9:53pm Advance Directive Response Recorded Date/ Time Living Will Yes October 11, 2024 9:53pm Do you have a Healthcare Power of Fire Protection Specialist? Yes October 11, 2024 9:53pm Name of Medical Power of Fire Protection Specialist October 11, 2024 9:53pm Advance Directives No July 18, 2024 11:52am Advance Directive Response Recorded Date/ Time Living Will Yes October 11, 2024 9:53pm Do you have a Healthcare Power of Fire Protection Specialist? Yes October 11, 2024 9:53pm Name of Medical Power of Fire Protection Specialist October 11, 2024 9:53pm Advance Directives No [...] or prosecute any alcohol or drug abuse patient.[facility] the event this information is protected by the Federal Confidentiality of Alcohol and Drug Abuse Patient Records regulations: The Federal rules restrict any use of the information to criminally investigate or prosecute any alcohol or drug abuse patient.[facility] HospitalIn the event this information is protected by the Federal Confidentiality of Alcohol and Drug Abuse Patient Records regulations: The Federal rules restrict any use of the information to criminally investigate or prosecute any alcohol or drug abuse patient.[facility] HospitalIn the event this information is protected by the Federal Confidentiality of Alcohol and Drug Abuse Patient Records regulations: The Federal rules restrict any use of the information to criminally investigate or prosecute any alcohol or drug abuse patient.[facility] HospitalIn the event this information is protected by the Federal Confidentiality of Alcohol and Drug Abuse Patient Records regulations: The Federal rules restrict any use of the information to criminally investigate or prosecute any alcohol or drug abuse patient.[facility] HospitalIn the event this information is protected by the Federal Confidentiality of Alcohol and Drug Abuse Patient Records regulations: The Federal rules restrict any use of the information to criminally investigate or prosecute any alcohol or drug abuse patient.[facility] HospitalIn the event this information is protected by the Federal Confidentiality of Alcohol and Drug Abuse Patient Records regulations: The Federal rules restrict any use of the information to criminally investigate or prosecute any alcohol or drug abuse patient.[facility] HospitalIn the event this information is protected by the Federal Confidentiality of Alcohol and Drug Abuse Patient Records regulations: The Federal rules restrict any use of the information to criminally investigate or prosecute any alcohol or drug abuse patient.[facility] HospitalIn the event this information is protected by the Federal Confidentiality of Alcohol and Drug Abuse Patient Records regulations: The Federal rules restrict any use of the information to criminally investigate or prosecute any alcohol or drug abuse patient.[facility] HospitalIn the event this information is protected by the Federal Confidentiality of Alcohol and Drug Abuse Patient Records regulations: The Federal rules restrict any use of the information to criminally investigate or prosecute any alcohol or drug abuse patient.[facility] HospitalIn the event this information is protected by the Federal Confidentiality of Alcohol and Drug Abuse Patient Records regulations: The Federal rules restrict any use of the information to criminally investigate or prosecute any alcohol or drug abuse patient.[facility] HospitalIn the event this information is protected by the Federal Confidentiality of Alcohol and Drug Abuse Patient Records regulations: The Federal rules restrict any use of the information to criminally investigate or prosecute any alcohol or drug abuse patient.[facility] HospitalIn the event this information is protected by the Federal Confidentiality of Alcohol and Drug Abuse Patient Records regulations: The Federal rules restrict any use of the information to criminally investigate or prosecute any alcohol or drug abuse patient.[facility] HospitalIn the event this information is protected by the Federal Confidentiality of Alcohol and Drug Abuse Patient Records regulations: The Federal rules restrict any use of the information to criminally investigate or prosecute any alcohol or drug abuse patient.[facility] HospitalIn the event this information is protected by the Federal Confidentiality of Alcohol and Drug Abuse Patient Records regulations: The Federal rules restrict any use of the information to criminally investigate or prosecute any alcohol or drug abuse patient.[facility] HospitalIn the event this information is protected by the Federal Confidentiality of Alcohol and Drug Abuse Patient Records regulations: The Federal rules restrict any use of the information to criminally investigate or prosecute any alcohol or drug abuse patient.[facility] HospitalIn the event this information is protected by the Federal Confidentiality of Alcohol and Drug Abuse Patient Records regulations: The Federal rules restrict any use of the information to criminally investigate or prosecute any alcohol or drug abuse patient.[facility] HospitalIn the event this information is protected by the Federal Confidentiality of Alcohol and Drug Abuse Patient Records regulations: The Federal rules restrict any use of the information to criminally investigate or prosecute any alcohol or drug abuse patient.[facility] HospitalIn the event this information is protected by the Federal Confidentiality of Alcohol and Drug Abuse Patient Records regulations: The Federal rules restrict any use of the information to criminally investigate or prosecute any alcohol or drug abuse patient.[facility] HospitalIn the event this information is protected by the Federal Confidentiality of Alcohol and Drug Abuse Patient Records regulations: The Federal rules restrict any use of the information to criminally investigate or prosecute any alcohol or drug abuse patient.[facility] HospitalIn the event this information is protected by the Federal Confidentiality of Alcohol and Drug Abuse Patient Records regulations: The Federal rules restrict any use of the information to criminally investigate or prosecute any alcohol or drug abuse patient.[facility] Reason for Visit (unrecogniz ed section and content) Reason Comments New Pain Specialty Diagnoses / Procedures Referred By Contac t Referred To Contact Diagnoses OV Procedures OV [facility] Dept Referral ID Status Reason Start Date Expiration Date V isits Requested Visits Authorized [id number] Closed Patient Cleared - Qualified 100% FAS 12/03/2021 03/03/2022 99 99 Reason Comments Follow Up Pain Reason Comments Appointment Reason Comments Radiology US Specialty Diagnoses / Procedures Referred By Contac t Referred To Contact US IMAGING Diagnoses Right calf pain Procedures US DVT LOWER RT DUP-SCAN XTR VEINS UNILATERAL/LIMITED STUDY Kelly Johnson PA-C [address] [place] [address] Us Imaging Referral ID Status Reason Start Date Expiration Date V isits Requested Visits Authorized [id number] Closed Auto-Generate d Referral 02/28/2022 03/30/2023 1 [...] MIN AMAYA ESTABLISH Self Mem[facility] [address] [place] [address] Referral ID Status Reason Start Date Expiration Date V isits Requested Visits Authorized [id number] Authorized 08/17/2022 07/09/2023 99 99 Reason Comments [...] Provider Active Start: June 11, 2024 Dr. Eiljah Shafer DO Attending Provider Active Start: June [...] 13, 2024 End: August 13, 2024 Dr. Cohlo Smith DO Referring Provider Active Start: August [...] September 10, 2024 End: September 10, 2024 Pneumatic Tube Repairer Relationship Specialty Start Date End Date ZewailJ Luis (Historic) PCP - General Internal Medicine 07/19/10 Pneumatic Tube Repairer Relationship Specialty Start Date End Date ZewailJ Luis (Historic) PCP - General Internal Medicine 07/19/10 Pneumatic Tube Repairer Relationship Specialty Start Date End Date Zewail J Luisjose Leijaamed (Historic) PCP - General Internal Medicine 07/19/10 Pneumatic Tube Repairer Relationship Specialty Start Date End Date Zewail J Luisjose Leijaamed (Historic) PCP - General Internal Medicine 07/19/10 Pneumatic Tube Repairer Relationship Specialty Start Date End Date Zewail J Luisjose Nino (Historic) PCP - General Internal Medicine 07/19/10 Pneumatic Tube Repairer Relationship Specialty Start Date End Date Zewail, J Luis Lissamed (Historic) PCP - General Internal Medicine 07/19/10 Pneumatic Tube Repairer Relationship Specialty Start Date End Date Zewail, J Luisjose Nino (Historic) PCP - General Internal Medicine 07/19/10 Pneumatic Tube Repairer Relationship Specialty Start Date End Date Zewail, J Luisjose Leijaamed (Historic) PCP - General Internal Medicine 07/19/10 Pneumatic Tube Repairer Relationship Specialty Start Date End Date Zewail [...] Prov ider, Attending Provider, Referring Provider Active Pneumatic Tube Repairer Relationship Specialty Start Date End Date MacariomichaelkamronJ Luis (Historic) PCP - General Internal Medicine 07/19/10 Team Status: Inactive Member Role Status Dates Dr. Cholo Smith DO Primary Care Prov ider, Attending Provider, Referring Provider Active Pneumatic Tube Repairer Relationship Specialty Start Date End Date ZewaJ Luis lundy (Historic) PCP - General Internal Medicine 07/19/10 Pneumatic Tube Repairer Relationship Specialty Start Date End Date ZewaJ Luis lundy (Historic) PCP - General Internal Medicine 07/19/10 Pneumatic Tube Repairer Relationship Specialty Start Date End Date MacarioJ Luis chery (Historic) PCP - General Internal Medicine 07/19/10 11/07/22 Team Status: Inactive Member Role Status Dates Dr. Cholo Smith DO Primary Care Provider, Referrin g Provider Active Dennis Goode FOOD SERVER, FOOD SERVER-C Attending Provider Active Team Status: Inactive Member Role Status Dates Dr. Cholo Smith , Primary Care Provider Active Dr. Santi Pelayo MD Emergency Provider Active Pneumatic Tube Repairer Relationship Specialty Start Date End Date Cholo Smith Willian [address] [place] [address] PCP - General Family Medicine 11/08/22 Pneumatic Tube Repairer Relationship Specialty Start Date End Date Sarah Cholo Dorsey DO [address] [place] [address] PCP - General Family Medicine 11/08/22 Team [...] NP-C Attending Provider, Referring Prov ider Active Pneumatic Tube Repairer Relationship Specialty Start Date End Date Sarah Cholo Dorsey DO [address] [place] [address] PCP - General Family Medicine 11/08/22 Team [...] MD Attending Provider, Referr ing Provider Active Pneumatic Tube Repairer Relationship Specialty Start Date End Date Cholo Smith DO [address] [facility] [place] [address] PCP - General Family Medicine 11/08/22 Pneumatic Tube Repairer Relationship Specialty Start Date End Date MacariomichaelJ Luis lundy (Historic) PCP - General Internal [...] 2024 End: October 15, 2024 Dr. Piedad Moerno MD Attending Provider Active Start: October 15, [...] Provider Active Start: February 05, 2025 Danya Simspon FOOD SERVER, FOOD SERVER-C Attending Provider Active Start: February 05, 2025 [...] Active Start: February 05, 2025 Danya Simpson FOOD SERVER, FOOD SERVER-C Attending Provider Active Start: February 05, 2025 [...] section and content) DATE CREATED AUTHOR 05/13/2023 [facility] DATE CREATED AUTHOR AUTHOR'S MICKI ATION 05/15/2023 [facility] DATE CREATED AUTHOR AUTHOR'S ORGANIZ ATION 02/01/2025 [facility] DATE CREATED AUTHOR AUTHOR'S ORGANIZ ATION 02/09/2025 [facility] FOR RECORDS PERTAINING TO PATIENTS WHO [...] BE BASED ON THE PRIMARY CLINICAL RECORDS. [facility] [employer] [facility]. provides no warranty or guarantee of the accuracy or completeness of information in this document.
[2025-02-14 21:49] VITALS: BMI 39.9
[2025-02-14 21:53] VITALS: BP 124/75; PULSE 99
--- NOTE | 2025-02-14 22:10 | US_ITS ---
PROCEDURE: OB BIOPHYSICAL PROF W/O NST 02/14/2025 REASON FOR EXAM: DECREASED MOVEMENT TECHNIQUE: OB BIOPHYSICAL PROF W/O NST COMPARISON: October 11, 2024 FINDINGS Number: 1 Position: Vertex Cardiac Motion: 140 (average) Trunk and Limb Motion: Present. Amniotic Fluid Volume: 2/2 Movements: 2/2 Tone: 2/2 Breathin/2 Total: 8 Position: Cephalic Placental Position: Anterior Placental Abnormalities: No evidence of previa. BIOPHYSICAL ASSESSMENT: Amniotic Fluid Volume: Subjectively normal. Amniotic Fluid Index: 19.2 cm (8-24 cm normal range) LMP June 20, 2024. Previously established gestational age 34 weeks, 1 day. Established RAMSES March 27, 2025. US/OB Biophysical Prof W/O NST IMPRESSION: BIOPHYSICAL PROFILE SCORE . Reading Location: [id number]
--- NOTE | 2025-02-14 22:10 | US_ITS ---
PROCEDURE: OB BIOPHYSICAL PROF W/O NST 02/14/2025 REASON FOR EXAM: DECREASED MOVEMENT TECHNIQUE: OB BIOPHYSICAL PROF W/O NST COMPARISON: October 11, 2024 FINDINGS Number: 1 Position: Vertex Cardiac Motion: 140 (average) Trunk and Limb Motion: Present. Amniotic Fluid Volume: 2/2 Movements: 2/2 Tone: 2/2 Breathin/2 Total: 8 Position: Cephalic Placental Position: Anterior Placental Abnormalities: No evidence of previa. BIOPHYSICAL ASSESSMENT: Amniotic Fluid Volume: Subjectively normal. Amniotic Fluid Index: 19.2 cm (8-24 cm normal range) LMP June 20, 2024. Previously established gestational age 34 weeks, 1 day. Established RAMSES March 27, 2025. US/OB Biophysical Prof W/O NST IMPRESSION: BIOPHYSICAL PROFILE SCORE . Reading Location: [id number]
[2025-02-14 22:45] LABS: Mucous, Urine 0 SEEN /hpf (<or=2+); Red Blood Cells-Urine 0 SEEN /hpf (0-5)
[2025-02-14 22:48] LABS: Hematocrit 33.1 % (37-47); Hemoglobin 11.3 g/dL (12.0-15.0); Immature Granulocytes Count 0.050 X10^3/uL (0.0-0.0); Mean Corp Hgb Conc 34.1 g/dL (32-36); Mean Corpuscular Volume 86.9 fL (81-99); Mean Platelet Vol. 11.0 fl (6.2-12.0); NRBC Flagged by Analyzer 0 % (0-5); Platelet Count 192 K/mm3 (150-450); RBC Distribution Width CV 12.9 % (11.6-14.6); RBC Distribution Width SD 40.4 fl (35.1-43.9); Red Blood Count 3.81 M/mm3 (4.2-5.4); White Blood Count 9.2 K/mm3 (4.4-11.0)
[2025-02-14 23:01] LABS: AST(SGOT) 13 U/L (<=31); Alanine Aminotransfer ALT/SGPT 7 U/L (<=34); Albumin, Serum 3.6 g/dL (3.5-5.0); Alkaline Phosphatase 64 U/L (35-104); Anion Gap 14 (5-15); BUN 5 mg/dL (4-19); BUN/Creat Ratio 11.3 RATIO (10-20); Calcium,Total 9.1 mg/dL (7.6-11.0); Carbon Dioxide 18.1 mmol/L (21.0-32.0); Chloride 104 mmol/L (98-108); Estimated Creatinine Clearance 190.12 ml/min (50-250); Globulin 2.6 g/dL (2.2-4.2); Glucose 89 mg/dL (70-99); Potassium 3.5 mmol/L (3.3-5.1)
[2025-02-14 23:09] LABS: Color, Urine Yellow (Yellow); Glucose, Dipstick Normal (Normal); Ketone-Dipstick Negative (Negative); Leukocyte Esterase-Dipstick Negative /ul (Negative); Nitrite-Dipstick Negative (Negative); Occult Blood-Urine Negative /ul (Negative); Protein-Dipstick Negative (Negative); Specific Gravity, Urine 1.010 (1.002-1.030); Urine Bilirubin Dipstick Negative (Negative)
[2025-02-14 23:13] LABS: Lipase 23 U/L (13-75)
[2025-02-14 23:19] LABS: Squamous Epithelial Cells - UA 0-5 SEEN /hpf (5-10)
[2025-02-14 23:26] LABS: Creatinine, Urine (random) 18.30 mg/dL (28.00-217.00); Protein, Urine (Random) 9.1 mg/dL (0.0-12.0); Protein:Creat Ratio 498 mg/g CRE (0-200)
[2025-02-14 23:29] VITALS: BP 119/68; PULSE 70; RESP 16; TEMP 36.7
--- NOTE | 2025-02-14 23:30 | OB.TRI.PN ---
Progress Notes Date of Service: 02/14/25 Progress Note: Patient presents for triage evaluation secondary to decreased movement at 34 weeks and slight RUQ pain. FHT: 120 Moderate variability reactive no decelerations category I tracing [place]: no Contractions Assessment and plan: pain resolved with tylenol, Reactive NST, No pre e sx, labs normal except PC ratio-will continue to monitor in office. IF BPP reassuring, plan to D/C home. See problem list details for additional plan information. Laboratory Studies: Laboratory Tests 02/14/25 02/14/25 Range/Units 22:20 22:00 WBC 9.2 (4.4-11.0) K/mm3 RBC 3.81 L (4.2-5.4) M/mm3 Hgb 11.3 L (12.0-15.0) g/dL Hct 33.1 L (37-47) % MCV 86.9 (81-99) fL MCH 29.7 (27.0-32.0) pg MCHC 34.1 (32-36) g/dL RDW Std Deviation 40.4 (35.1-43.9) fl RDW Coeff of Oneil 12.9 (11.6-14.6) % Plt Count 192 (150-450) K/mm3 MPV 11.0 (6.2-12.0) fl Immature Gran % (Auto) 0.500 (0.0-0.9) % Neut % (Auto) 72.0 H (47-70) % Lymph % (Auto) 18.0 L (19-41) % [place] % (Auto) 5.9 (0-10) % Eos % (Auto) 3.2 (0-5) % Baso % (Auto) 0.4 (0-1) % Absolute Neuts (auto) 6.6 (2.0-7.7) X10^3/uL Absolute Lymphs (auto) 1.66 (0.83-4.51) X10^3/uL Nucleated RBC % 0 (0-5) % Sodium 136 (133-145) mmol/L Potassium 3.5 (3.3-5.1) mmol/L Chloride 104 (98-108) mmol/L Carbon Dioxide 18.1 L (21.0-32.0) mmol/L Anion Gap 14 (5-15) BUN 5 (4-19) mg/dL Creatinine 0.45 L (0.70-1.20) mg/dL Estim Creat Clear Calc 190.12 (50-250) ml/min Est GFR (MDRD) Non-Af 128 (>60) BUN/Creatinine Ratio 11.3 (10-20) RATIO Glucose 89 (70-99) mg/dL Calcium 9.1 (7.6-11.0) mg/dL Total Bilirubin 0.17 (0.00-1.30) mg/dL AST 13 (<=31) U/L ALT 7 (<=34) U/L Alkaline Phosphatase 64 (35-104) U/L Total Protein 6.2 (5.9-8.4) g/dL Albumin 3.6 (3.5-5.0) g/dL Globulin 2.6 (2.2-4.2) g/dL Albumin/Globulin Ratio 1.4 (0.9-2.4) RATIO Lipase 23 (13-75) U/L Urine Color Yellow (Yellow) Urine Clarity Clear (Clear) Urine pH 6.5 (5.0 - 8.0) Ur Specific [place] 1.010 (1.002-1.030) Urine Protein Negative (Negative) mg/dl Urine Glucose (UA) Normal (Normal) mg/dl Urine Ketones Negative (Negative) mg/dl Urine Occult Blood Negative (Negative) /ul Urine Nitrite Negative (Negative) Urine Bilirubin Negative (Negative) mg/dL Urine Urobilinogen Normal (Normal) mg/dl Ur Leukocyte Esterase Negative (Negative) /ul Urine RBC 0 SEEN (0-5) /hpf Urine WBC 0-5 SEEN (0-5) /hpf Ur Squamous Epith Cells 0-5 SEEN (5-10) /hpf Urine Bacteria 2+ (None Seen) /hpf Urine Mucus 0 SEEN (<or=2+) /hpf U Random Total Protein 9.1 (0.0-12.0) mg/dL Urine Creatinine 18.30 L (28.00-217.00) mg/dL Protein/Creatinin Ratio 498 H (0-200) mg/g CRE Charges/Coding Multi Select Codes Visit Charges Office Visit/Consults: 86656 OV L3 Est 20min Urinary/Genital Urinary/Genital CPT Codes: 90674-57 non-stress test Interp Assessment & Plan (1) Proteinuria affecting : COMMENT: at 34 weeks-normal BP and rest of pre e labs. no pre e sx. (2) Contraction, [place] Osman: COMMENT: fingertip per nursing dilated with less intense/frequency in ctx. (3) LGA (large for gestational age) fetus: COMMENT: 32wk: EFW 69%, AC 97%: rpt 1 hr GCT/normal (4) Advanced maternal age in multigravida: (5) Abnormal glucose affecting : COMMENT: normal 3 hour (6) Short interval between pregnancies affecting in first trimester, antepartum: COMMENT: baby 4 months old when became with this gestation. (7) History of miscarriage, currently : (8) Decreased movement: COMMENT: reactive NST and BPP (9) Hx of twin in prior : COMMENT: Fraternal (10) Supervision of high-risk : COMMENT: PRR,, RAMSES 03/27/25, boy,PC Lakisha Underwood & Earnestine(Twins), Elaine Alvarez will be 39 weeks on Elaine's b-day. requests IOL on this day. (11) : QUALIFIERS: Weeks of gestation: 34 weeks Qualified Code(s): Z3A.34 - 34 weeks gestation of COMMENT: NIPT low risk, anatomy needs f/u views. (12) Obesity affecting : COMMENT: HgbA1c (13) Inclusion cyst of vulva: COMMENT: +actinomycis:4 wk of amoxil (14) Hx of pre-eclampsia in prior , currently : COMMENT: negative labs . bp stable in WP. headache resolved. (15) Abdominal pain: (16) Perianal candidiasis: (17) Rectal pain: (18) Pelvic floor weakness in female: (19) Chronic anemia: (20) Gestational hypertension: QUALIFIERS: Trimester: unspecified trimester Qualified Code(s): O13.9 - Gestational [-induced] hypertension without significant proteinuria, unspecified trimester COMMENT: resolved pp (21) Hemorrhoids: QUALIFIERS: Hemorrhoid type: unspecified Qualified Code(s): K64.9 - Unspecified hemorrhoids (22) Lymphocytic colitis:
== END 2025-02-14 23:46 | disposition home or self-care (01) ==
LOC: WPOUT 21:32 → WP 21:32
PROVIDERS: PCP Family Medicine; Referring Provider Advanced Practice Midwife; Visit Provider Advanced Practice Midwife
DX: O12.13 Gestational proteinuria, third trimester (principal); O36.8130 Decreased fetal movements, third trimester, not applicable or unspecified; Z3A.34 34 weeks gestation of pregnancy; O47.03 False labor before 37 completed weeks of gestation, third trimester; O36.63X0 Maternal care for excessive fetal growth, third trimester, not applicable or unspecified; O09.523 Supervision of elderly multigravida, third trimester; O99.810 Abnormal glucose complicating pregnancy; O99.013 Anemia complicating pregnancy, third trimester
CPT/HCPCS: 36415; 59025; 59050; 76819; 80053; 81001; 82570; 83690; 84156; 85025; 99221; G0378

== ENCOUNTER → 2025-02-18 | Outpatient (CLI) | payer BC, SELFPAY ==
[2025-02-18 17:27] LABS: Creatinine, Urine (random) 16.80 mg/dL (28.00-217.00); Protein, Urine (Random) 6.3 mg/dL (0.0-12.0); Protein:Creat Ratio 373 mg/g CRE (0-200)
== END | disposition home or self-care (01) ==
LOC: LABSPEC 16:15
PROVIDERS: PCP Family Medicine; Visit Provider Obstetrics & Gynecology
DX: O12.10 Gestational proteinuria, unspecified trimester (principal); O09.299 Supervision of pregnancy with other poor reproductive or obstetric history, unspecified trimester; Z3A.00 Weeks of gestation of pregnancy not specified
CPT/HCPCS: 82570; 84156

== ENCOUNTER → 2025-02-27 | Outpatient (CLI) | payer BC, SELFPAY | END | disposition home or self-care (01) | LOC: LABSPEC 16:10 | PROVIDERS: PCP Family Medicine; Referring Provider Obstetrics & Gynecology; Visit Provider Obstetrics & Gynecology | DX: O09.90 Supervision of high risk pregnancy, unspecified, unspecified trimester (principal); Z3A.00 Weeks of gestation of pregnancy not specified | CPT/HCPCS: 87081 ==

== ENCOUNTER 2025-02-28 06:30 | Outpatient (CLI) | payer BC, SELFPAY ==
[2025-02-28 06:36] VITALS: BMI 39.9
--- OUTSIDE RECORDS SUMMARY | 2025-02-28 06:39 | XMS RPT_ITS | CCD ---
Author Organization [facility] Care Team Providers Care 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 Name Role Phone J Luis Jacobson (Historic) Primary Care Prov ider Dr. Cholo Smith Primary Care Provider [phone] Cholo Smith Referring Provider Soni, Dr. Nava Attending Provider [phone] Dr. Dane Galvan Attending Provider [phone] August Thomas Attending Provider [phone] J Luis Jacobson (Historic) Primary Care Prov ider J Luis Jacobson (Historic) Primary Care Prov ider J Luis Jacobson (Historic) Primary Care Prov ider Dr. Cholo Smith Primary Care Provider Dr. Cholo Smith Referring Provider IMAN Luis Attending Provider Dr. Cholo Smith Primary Care Provider [phone] Dr. Cholo Smith Referring Provider IMAN Luis Attending Provider [phone] J Luis Jacobson (Historic) Primary Care Prov ider Dr. Cholo Smith Primary Care Provider [phone] Dr. Cholo Smith Referring Provider Roof CLOTH STOCK SORTER, CLOTH STOCK SORTER-Ernestina Christianson Attending Provider Sarah DO, Cholo A [...] Dr. Cholo Smith Primary Care Provider [phone] Cholo Smith Referring Provider [phone] IMAN Loaiza Attending Provider IMAN Luis Attending Provider Dr. Cholo Smith Primary Care Provider [phone] Dr. Cholo Smith Referring Provider [phone] Dr. Reina Rashid Attending Provider Dr. Cholo Smith Primary Care Provider [phone] Dr. Cholo Smith Referring Provider Dr. Reina Rashid Attending Provider ERI Godinez Attending Provider Dr. Piedad Moreno Attending Provider [...] BINGHAM-CIvett Attending Provider Ivett Carrington Referring Provider Suyapa Godinez CNM Attending Provider Sarah JOSHI, Dr. Branham [...] Josh FORD, Dr. Herbert Attending Provider [phone] Josh FORD, Dr. Herbert Referring Provider Sarah JOSHI, Dr. Branham Primary Care Provider [phone] Sarah , Dr. Branham Referring Provider [phone] Sarah JOSHI, Dr. Branham Primary Care Provider [phone] Sarah JOSHI, Dr. Branham Referring Provider [phone] Park Romero DO, Dr. Huang Attending Provider Park Romero DO, Dr. Huang Referring Provider Herbert HWANG, Suyapa Attending Provider [phone] Sarah JOSHI, Dr. Branham Primary Care Provider [phone] Sarah JOSHI, Dr. Branham Referring Provider [phone] Park Romero DO, Dr. Huang Attending Provider Park Romero DO, Dr. Huang Referring Provider Suyapa Godinez CNM Referring Provider [phone] Sarah JOSHI, Dr. Branham Primary Care Provider [phone] Sarah JOSHI, Dr. Branham Referring Provider [phone] Herbert ROJOM, Suyapa Attending Provider Calvin BINGHAM-C, Danya Attending Provider Manish CNM, Linda Attending Provider Manish CNM, Linda Referring Provider Manish CNM, Linda Other Provider Sarah JOSHI, Dr. Branham Primary Care Provider [phone] Sarah JOSHI, Dr. Branham Referring Provider [phone] Josh FORD, Dr. Herbert Attending Provider Herbert ROJOM, Suyapa Other Provider REINA DIAZ Attending Unavailable VANDEVELDE, REINA R Referring Unavailab le SARAH, CHOLO A Primary Care Unavailable VANDEVCAROLEE, REINA R Referring Unavailab le SARAH, CHOLO A Primary Care Unavailable SRUTHI CENTENO Attending Unavailable REINA GARCIA R Referring Unavailab le SARAH, CHOLO A Primary Care Unavailable JEREMIAH MANNING Attending Unavailable REINA GARCIA R Referring Unavailab le SARAH, CHOLO A Primary Care Unavailable AMINA ESTRADA Attending Unavailable PURA KENDALL Attending Unavailable REINA GARCIA R Referring Unavailab le SARAH, CHOLO A Primary Care Unavailable KONRAD MAS Attending Unavailable RADHA, REINA R Referring Unavailab le SARAH, CHOLO A Primary Care Unavailable BRIANNE MULLINS Attending Unavailable REINA GARCIA R Referring Unavailab le SARAH, CHOLO A Primary Care Unavailable Sarah, Cholo Primary Care Unavailable Suyapa Godinez Referring Unavailable Suyapa Godinez Attending Unavailable Sarah, Cholo Primary Care Unavailable Reina Rashid Attending Unavailabl e Vande VelReina arredondo Admitting Unavailabl e Piedad Moreno Referring Unavailable Linda Hammond Referring Unavailable Linda Hammond Attending Unavailable Sarah, Cholo Primary Care Unavailable Sarah, Cholo Primary Care Unavailable Reina Rashid Attending Unavailabl e Vande VelReina arredondo Referring Unavailabl e Vande VelReina arredondo Admitting Unavailabl e Sarah, Cholo Referring Unavailable Lisseth Jackson Attending Unavailable Sarah, Cholo Primary Care Unavailable Ivett Marquez Referring Unavailable Sarah, Cholo Primary Care Unavailable Ivett Marquez Attending Unavailable Piedad Moreno Attending Unavailable Piedad Moreno Referring Unavailable Sarah, Cholo Primary Care Unavailable Sarah, Cholo Primary Care Unavailable Sarah, Cholo Referring Unavailable Piedad Moreno Attending Unavailable Calvin CLOTH STOCK SORTER, Danya Attending Unavailable Sarah, Cholo Primary Care Unavailable Sarah, Cholo Primary Care Unavailable Reina Rashid Attending Unavailabl e Vande VeldeReina Referring Unavailabl e Sarah, Cholo Primary Care Unavailable Piedad Moreno Attending Unavailable Sarah, Cholo Primary Care Unavailable VandReina Soto Attending Unavailabl e Vande VeldeReian Referring Unavailabl e Lisseth Jackson Referring Unavailable Sarah, Cholo Primary Care Unavailable Lisseth Jackson Attending Unavailable Reina Rashid Attending Unavailabl e Richarde Reina Romero Referring Unavailabl e Sarah, Cholo Primary Care Unavailable Mary Jane Wade Attending Unavailable Sarah, Cholo Primary Care Unavailable Reina Rashid Attending Unavailabl e Richarde Velde, Reina Referring Unavailabl e Sarah, Cholo Primary Care Unavailable Sarah, Cholo Primary Care Unavailable Sarah, Cholo Referring Unavailable Suyapa Godinez Attending Unavailable Sarah, Cholo Primary Care Unavailable Suyapa Godinez Attending Unavailable Suyapa Godinez Referring Unavailable Sarah, Cholo Primary Care Unavailable Reina Rashid Attending Unavailabl e Vande VeldeReina Referring Unavailabl e Suyapa Godinez Referring Unavailable Suyapa Godinez Attending Unavailable Sarah, Cholo Primary Care Unavailable Sarah, Cholo Referring Unavailable Sarah, Cholo Primary Care Unavailable Reina Rashid Attending Unavailabl e Sarah, Cholo Primary Care Unavailable Vande Reina Romero Attending Unavailabl e Sarah, Cholo Primary Care Unavailable Sarah, Cholo Referring Unavailable Suyapa Godinez Attending Unavailable Sarah, Cholo Referring Unavailable Vande AddisondeReina Attending Unavailabl e Sarah, Cholo Primary Care Unavailable Sarah, Cholo Referring Unavailable Sarah, Cholo Primary Care Unavailable Reina Varela Attending Unavailable Sarah, Cholo Referring Unavailable Piedad Moreno Attending Unavailable Sarah, Cholo Primary Care Unavailable Sarah, Cholo Referring Unavailable Piedad Moreno Attending Unavailable Sarah, Cholo Primary Care Unavailable Sarah, Cholo Referring Unavailable Friend, Elijah Consulting Unavailable FriendRosamariaElijah Attending Unavailable Sarah, Cholo Primary Care Unavailable Sarah, Cholo Primary Care Unavailable Suyapa Godinez Consulting Unavailable Suyapa Godinez Referring Unavailable Suyapa Godinez Attending Unavailable Linda Hammond Consulting Unavailable HammondLinda Referring Unavailable HammondLinda Attending Unavailable Sarah, Cholo Primary Care Unavailable Sarah, Cholo Primary Care Unavailable Piedad Moreno Consulting Unavailable Piedad Moreno Attending Unavailable Piedad Moreno Admitting Unavailable Piedad Moreno Referring Unavailable Calvin CLOTH STOCK SORTER, Danya Attending Unavailable Reina Rashid Consulting Unavailabl e Vande VeldeReina Admitting Unavailabl e Sarah, Cholo Referring Unavailable Ivett Marquez Attending Unavailable Sarah, Cholo Primary Care Unavailable Sarah, Cholo Referring Unavailable Suyapa Godinez Attending Unavailable Sarah, Cholo Primary Care Unavailable Sarah, Cholo Referring Unavailable Vande Velde, Reina Attending Unavailabl e Sarah, Cholo Primary Care Unavailable Sarah, Cholo Referring Unavailable Vande Velde, Reina Attending Unavailabl e Sarah, Cholo Primary Care Unavailable Sarah, Cholo Primary Care Unavailable Sarah, Cholo Referring Unavailable Vande Velde, Reina Attending Unavailabl e Sarah, Cholo Referring Unavailable Suyapa Godinez Attending Unavailable Sarah, Cholo Primary Care Unavailable Sarah, Cholo Referring Unavailable Vande Velde, Reina Attending Unavailabl e Sarah, Cholo Primary Care Unavailable Sarah, Cholo Referring Unavailable Suyapa Godinez Attending Unavailable Sarah, Cholo Primary Care Unavailable Sarah, Cholo Referring Unavailable Vande Velde, Reina Attending Unavailabl e Sarah, Cholo Primary Care Unavailable Asrah, Cholo Referring Unavailable Vande Velde, Reina Attending Unavailabl e Sarah, Cholo Primary Care Unavailable Sarah, Cholo Referring Unavailable Friend, Elijah Attending Unavailable Sarah, Cholo Primary Care Unavailable Sarah, Cholo Primary Care Unavailable Sarah, Cholo Referring Unavailable Piedad Moreno Attending Unavailable Sarah, Cholo Referring Unavailable Sarah, Cholo Primary Care Unavailable Vande Velde, Reina Attending Unavailabl e Sarah, Cholo Referring Unavailable FriendElijah Attending Unavailable Sarah, Cholo Primary Care Unavailable Vande Velde, Reina Attending Unavailabl e Vande Velde, Reina Referring Unavailabl e Sarah, Cholo Primary Care Unavailable Sarah, Cholo Primary Care Unavailable Suyapa Godinez Attending Unavailable Suyapa Godinez Referring Unavailable FriendElijah Referring Unavailable FriendElijah Attending Unavailable Sarah, Cholo Primary Care Unavailable Medications Current Medications Medication Drug Class(es) Dates Sig (Normalized) Sig (Original) Diltiazem 2% / Lidocaine 5% Ointment (Compound) ointment (16 sources) Start: 06-24-2024 Diltiazem 2% / Lidocaine [...] a day famotidine 20 mg oral tablet (16 sources) Histamine-2 Receptor Antagonist Start: 09-10-2024 take [...] 8:54am hydrOXYzine pamoate 25 mg oral capsule (11 sources) Antihistamine Start: 01-03-2025 take 1 capsule [...] 15 mg by mouth once daily. Multivit 89-Wwgu-Kwixlx 1-Dha (Pnv-Dha) 27 mg iron-1 mg -300 mg capsule (19 sources) Start: 08-18-2023 Multivit 30-Uyaw-Ppitxw 1-Dha (Pnv-Dha) 27 mg iron-1 mg -300 [...] above: Take by mouth. polyethylene glycol 3350 [id number] mg powder for oral solution (20 sources) [...] g by mouth o nce daily. Vitamin U74-Wfxqh Acid (10 sources) Start: 02-23-2021 take 1 tablet by mouth once daily Vitamin A72-Ehsyu Acid Active 1 TABLET PO DAILY February 22, 2021 11:00pm Start: 02-23-2021 take 1 tablet by daniela th once daily Vitamin B48-Etysx Acid Active 1 TABLET PO DAILY February [...] 5:08am prevention amoxicillin 500 mg oral tablet (16 sources) Penicillin-class Antibacterial Start: 08-26-19 End: 09-24-19 [...] Discontinued 1 {tbl} PO Q12H 20 10 May 28, 2021 1:00am June 06, 2021 [...] Start: 04-28-2012 take 1 capsule by mo ut four times daily at mealtime cephALEXin 500 [...] 2024 12:00am October 15, 2024 3:16pm Cranberry Wgzo-M-Yaphbhzg Co ag (10 sources) Start: 04-04-2018 End: 05-22-2018 Cranberry Affl-J-Oldwbinv Co ag Discontinued 1 EACH PO DAILY April 03, 2018 11:00pm May 22, 2018 1:20pm Start: 04-04-2018 End: 05-22-2018 Cranberry Enas-W-Qvmyonxu Co ag Discontinued 1 EACH PO DAILY April 04, 2018 12:00am May 22, 2018 2:20pm Cranberry Rpjr-L-Pjyhkdmj Coag 1 EACH tablet (16 sources) Start: 04-04-2018 End: 05-22-2018 take 1 tablet by mouth once daily Cranberry Wrma-U-Tofmtweu Coag 1 EACH tablet Discontinued 1 NMA PO DAILY April 04, 2018 12:00am May 22, 2018 2:20pm UTI prevention Start: 04-04-2018 End: 05-22-2018 take 1 tablet by mouth once daily Cranberry Jyxt-K-Bucnsidp Coag 1 EACH tablet Discontinued 1 NMA [...] mg tablet Discontinued 100 mg PO DAILY February 18, 2023 12:00am August 18, 2023 [...] 2022 12:53pm February 18, 2023 9:47am Magnesium (16 sources) Start: 01-30-2024 End: 03-21-2024 take 1 [...] DAILY July 26, 2021 1:00am Multivitamin tablet (16 sources) Start: 07-26-2021 End: 08-18-2023 Multivitamin tablet Discontinued 1 {tbl} PO DAILY July 26, 2021 1:00am August 18, 2023 10:02am nystatin [id number] unt/ml topical cream (20 sources) Polyene Antifungal [...] swish and swallow Nystatin 100,000 unit/gram powder (16 sources) Start: 06-24-2024 End: 06-26-2024 Nystatin 100,000 [...] nausea/vomiting. oxyCODONE hydrochloride 5 mg oral tablet (16 sources) Opioid Agonist Start: 06-11-20 End: 06-16-20 take 1 tablet by mouth twice daily as needed for pain Oxycodone 5 mg tablet Discontinued 5 mg PO TWICE A DAY as needed for pain 10 5 0 June 11, 2024 June 15, 2024 1:00am June 16, 2024 1:09am Hemorrhoids Unspecified hemorrhoids permethrin 50 mg/ml topical cream (20 sources) Pyrethroid Start: 05-30-20 End: 08-18-19 Permethrin [...] injection (NAROPIN) terconazole 4 mg/ml vaginal cream (17 sources) Azole Antifungal Start: 10-23-2023 End: 10-30-2023 [...] 80 m g injection (KeNALog 40) Vitamin D48-Bizkx Acid 1-0.8 mg Tablet (16 sources) Start: 02-23-2021 End: 06-04-2024 Vitamin W23-Iljdj Acid 1-0.8 mg Tablet Discontinued 1 {tbl} [...] unspecified] 04-23-2024 Episodic Deficiency and other anemia (2 sources) Anemia, unspecified; Translations: [Anemia, unspecified] Onset: Episodic Diabetes or abnormal glucose tolerance complicating ; childbirth; or the puerperium (20 sources) Abnormal glucose level; Translations: [Abnormal glucose complicating ] Onset: 5 12-26-2024 Episodic Comment on above: needs 3 hour normal 3 hour Early or threatened labor (20 sources) [place] contractions; Translations: [False labor, unspecified] Onset: 5 02-07-2025 Episodic Comment on above: fingertip per nursin g dilated with less intense/frequency in ctx. Gastrointestinal hemorrhage (20 sources) Lower gastrointestinal hemorrhage; Translations: [Gastrointestinal hemorrhage, unspecified] 03-29-2021 Episodic Hemorrhage during ; abruptio placenta; placenta previa (20 sources) Bleeding from female genital tract during ; Translations: [Antepartum hemorrhage, unspecified, unspecified trimester] Onset: 5 10-11-2024 Episodic Hemorrhoids (20 sources) Hemorrhoids; Translations: [Unspecified hemorrhoids] Onset: 5 09-07-2007 Episodic Hypertension complicating ; childbirth and the puerperium (16 sources) Hypertension complicating ; Translations: [Unspecified maternal hypertension, third trimester] 02-22-2024 Chronic Comment on above: repeat bp in office WNL. preeclampsia labs done in triage 02/19- tamara acuna. fu in office to monitor bps and follow to see if recurrent elevation Hypertension complicating ; childbirth and the puerperium (20 sources) -induced hypertension; Translations: [Gestational [-induced] hypertension without significant proteinuria, unspecified trimester] Onset: 5 03-20-2024 Episodic Comment on above: resolved pp Immunizations and screening for infectious disease (1 source) Encounter for immunization; Translations: [Encounter for immunization] Onset: 5 Episodic Mycoses (20 sources) Perianal candidiasis; Translations: [Other sites of candidiasis] Onset: 5 06-24-2024 Episodic Noninfectious gastroenteritis (20 sources) Lymphocytic colitis; Translations: [Lymphocytic colitis] Onset: 5 Chronic Other aftercare (1 source) Surgical follow-up; Translations: [Encounter for follow-up examination after completed treatment for conditions other than malignant neoplasm] Episodic Other complications of ; puerperium affecting management of mother (20 sources) Large for gestation age fetus 02-05-2025 Episodic Comment on above: 32wk: EFW 69%, AC 97 %: rpt 1 hr GCT/normal Other complications of (20 sources) Maternal obesity complicating , childbirth and the puerperium, antepartum; Translations: [Obesity complicating , unspecified trimester] 08-06-2024 Chronic Comment on above: HgbA1c Other complications of (2 sources) Obesity complicating , unspecified trimester; Translations: [Obesity [...] Earnestine(Twins), Elaine Santi be 39 weeks on Elaine'-. requests IOL on this day. PRR, , RAMSES ,[facility] Lakisha Martin, Abran Alvarez Other complications of (20 sources) History of pre-eclampsia; Translations: [Supervision of with other poor reproductive or obstetric history, unspecified trimester] 08-21-2023 Episodic Comment on above: Baseline labs ordere d with NOB labs negative labs . bp s table in WP. headache resolved. Other complications of (7 sources) Supervision of elderly multigravida, unspecified trimester; Translations: [Elderly multigravida, unspecified as to episode of care or not applicable] Onset: 5 08-21-2023 Episodic Other complications of (11 sources) Supervision of with other poor reproductive or obstetric history, unspecified trimester; Translations: [Supervision of high-risk with history of ] Onset: 5 08-21-2023 Episodic Other complications of (7 sources) Supervision of high risk , unspecified, [...] became with this gestation. Other complications of (15 sources) Proteinuria; Translations: [Gestational proteinuria, unspecified trimester] 02-14-2025 Episodic Comment on above: at 34 weeks-normal B P and rest of pre e labs. no pre e sx. Other complications of (10 sources) Reduced movement; Translations: [Decreased movements, unspecified trimester, not applicable or unspecified] 02-14-2025 Episodic Comment on above: reactive NST and BPP Other complications of (2 sources) Gestational proteinuria, unspecified trimester; Translations: [Gestational proteinuria, unspecified trimester] Onset: 5 Episodic Other complications of (2 sources) Supervision of other high risk pregnancies, first trimester; Translations: [Supervision of other high risk pregnancies, first trimester] Onset: 5 Episodic Other complications of (1 source) Decreased movements, unspecified trimester, not applicable or unspecified; Translations: [Decreased movements, unspecified trimester, not applicable or unspecified] Onset: 5 Episodic Other complications of (1 source) Decreased movements, third trimester, not applicable or unspecified; Translations: [Decreased movements, third trimester, not applicable or unspecified] Onset: 5 Episodic Other connective tissue disease (8 sources) Iliotibial band friction syndrome of right knee; Translations: [Iliotibial band syndrome, right leg] Episodic Other connective tissue disease (20 sources) Trochanteric bursitis; Translations: [Trochanteric bursitis, right hip] 01-17-2022 Episodic Other connective tissue disease (1 source) Pain of right calf; Translations: [Pain in right lower leg] Episodic Other connective tissue disease (1 source) Pain in left lower leg; Translations: [Pain of left calf] Onset: 3 Episodic Other connective tissue disease (1 source) Pain of left calf; Translations: [Pain in left lower leg] 05-12-2023 Episodic Other female genital disorders (19 sources) Retroverted uterus; 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 uterus] 08-18-2023 Episodic Other female genital disorders (4 sources) Malposition of uterus; 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 uterus] 08-21-2023 Episodic Other female genital disorders (20 sources) Cyst of vulva; Translations: [Vulvar cyst] 08-26-2024 Episodic Comment on above: +actinomycis:4 wk of amoxil Other female genital disorders (19 sources) Vaginal discharge; Translations: [Other specified noninflammatory disorders of vagina] 08-06-2024 Episodic Other female genital disorders (2 sources) Vulvar cyst; Translations: [Vulvar cyst] Onset: 5 Episodic Other gastrointestinal disorders (20 sources) Chronic constipation; Translations: [Other constipation] 01-13-2021 Episodic Other gastrointestinal disorders (10 sources) Constipation; Translations: [Constipation, unspecified] 05-11-2021 Episodic Other gastrointestinal disorders (4 sources) Other constipation; Translations: [Constipation, unspecified] 08-21-2023 Episodic Other infections; including parasitic (1 source) Infestation by Sarcoptes scabiei oneil hominis; Translations: [Scabies] 05-30-2023 Episodic Other infections; [...] [Encounter for screening for diabetes mellitus] Onset: Episodic Other skin disorders (3 sources) Rash [...] Translations: [Pain, unspecified] Episodic Residual codes; unclassified (16 sources) Gestation period, 35 weeks; Translations: [35 weeks gestation of ] 02-22-2024 Episodic Residual codes; unclassified (20 sources) H/O: ; Translations: [Personal history of other complications of , childbirth and the puerperium] 08-06-2024 Episodic Comment on above: Fraternal Residual codes; unclassified (2 sources) Personal history of other complications of , childbirth and the puerperium; Translations: [Personal history of other complications of , childbirth and the puerperium] Onset: 5 Episodic Residual codes; unclassified (2 sources) 34 weeks gestation of ; Translations: [34 weeks gestation of ] Onset: 5 Episodic Residual codes; unclassified (1 source) 29 weeks gestation of ; Translations: [29 weeks gestation of ] Onset: 5 Episodic Skin and subcutaneous tissue infections (20 sources) Cellulitis of face; Translations: [Cellulitis of [...] [Acute candidiasis of vulva and vagina] Onset: 5 Past or Other Problems Problem Classification Problem [...] [Supervision of elderly multigravida, first trimester] Onset: 11-11-2024 Episodic Other complications of (1 source) Supervision of elderly multigravida, third trimester; Translations: [Supervision of elderly multigravida, third trimester] Onset: 04-12-2024 Episodic Other complications of (2 sources) Supervision of high risk , unspecified, second trimester; Translations: [Supervision of high risk , unspecified, second trimester] Onset: 03-14-2024 Episodic Other complications of (1 source) Supervision of elderly multigravida, second trimester; Translations: [Supervision of elderly multigravida, second trimester] Onset: 04-12-2024 Episodic Other complications of (1 source) Supervision [...] weeks gestation of ] Onset: 04-12-2024 Episodic Results Test Name Value Interpretation Reference Range Facility Mission Assessment Specialist Office Visit Reporton 02-18-2025 Mission Assessment Specialist Office Visit Report Normal [facility] Protein+Creatinine Ratio,Uri neon 02-18-2025 PROT:CRE RATIO 373 mg/g CRE High 0-200 [facility] Comment on above: Performed By: #### L 501.0900 ####[facility] [address] [place], [address] Protein (U) [Mass/Vol] 6.3 mg/dL Normal 0.0-12.0 [facility] Comment on above: Performed By: #### L 501.0900 ####[facility] [id number] [place], [address] UR CREAT 16.80 mg/dL Low 28.00-217.00 [facility] Comment on above: Performed By: #### L 501.0900 ####[facility] [id number] [place], [address] Random urine creatinine jazmine urement (mass/volume)Ordered By: Piedad Moreno on 02-18-2025 Creatinine Unsp time (U) [Mass/Vol] 16.80 mg/dL Low 28.00-217.00 [facility] Urine protein measurement (m ass/volume)Ordered By: Piedad Moreno on 02-18-2025 Protein (U) [Mass/Vol] 6.3 mg/dL 0.0-12.0 [facility] Urine protein/creatinine mas s ratioOrdered By: Piedad Moreno on 02-18-2025 Protein/Creatinine (U) [Mass ratio] 373 mg/g CRE High 0-200 [facility] Absolute lymphocyte countOrd ered By: Suyapa Godinez on 02-14-2025 Lymphocytes Auto (Unsp spec) [#/Vol] 1.66 10*3/uL 0.83-4.51 [facility] Absolute neutrophil countOrd ered By: Suyapa Godinez on 02-14-2025 Neutrophils (Bld) [#/Vol] 6.6 10*3/uL 2.0-7.7 [facility] Anion gap in Serum or Plasma Ordered By: Suyapa Godinez on 02-14-2025 Anion gap [Moles/Vol] 14 mmol/L 5-15 [facility] Automated blood erythrocyte countOrdered By: Suyapa Godinez on 02-14-2025 RBC (Bld) [#/Vol] 3.81 10*6/uL Low 4.2-5.4 [facility] Comment on above: Performed By: #### L 100.0100 ####[facility] [id number] [place], [place], [id number] Automated blood hematocrit ( percentage)Ordered By: Suyapa Godinez on 02-14-2025 Hematocrit (Bld) [Volume fraction] 33.1 % Low 37-47 [facility] Comment on above: Performed By: #### L 100.0100 ####[facility] [address] [place], [place], [id number] Automated lymphocyte count a s percentage of total leukocytesOrdered By: Suyapa Godinez on 02-14-2025 Lymphocytes/100 WBC Auto (Unsp spec) 18.0 % Low 19-[facility] [facility] BUN/creatinine ratioOrdered By: Suyapa Godinez on 02-14-2025 Urea nitrogen/Creatinine [Mass ratio] 11.3 mg/mg 10-20 [facility] Basophil percentageOrdered B y: Suyapa Gdoinez on 02-14-2025 Basophils/100 WBC (Bld) 0.4 % 0-1 [facility] Comment on above: Performed By: #### L 100.0100 ####[facility] [address] [place], [address] Bilirubin Test strip Ql (U)O rdered By: Suyapa Godinez on 02-14-2025 Bilirubin Ql (U) Negative Negative [facility] Bilirubin, totalOrdered By: Suyapa Godinez on 02-14-2025 Bilirubin [Mass/Vol] 0.17 mg/dL 0.00-1.30 [facility] Comment on above: Performed By: #### L 500.4050 ####[facility] [address] [place], [address] CBC W/Diff, Automatedon Absolute Lymph 1.66 X10 3/uL Normal 0.83-4.51 [facility] Comment on above: Performed By: #### L 100.0100 ####[facility] [address] [place], [address] Absolute Neut 6.6 X10 3/uL Normal 2.0-7.7 [facility] Comment on above: Performed By: #### L 100.0100 ####[facility] [address] [place], [address] IG% 0.500 Normal 0.0-0.9 [facility] Comment on above: Result Comment: IG% - Immature Granulocytes (promyelocytes, myelocytes andmetamyelocytes) > 1% indicates that a LEFT SHIFT is Present. Performed By: #### L 100.0100 ####[facility] [address] [place], [address] Lymphocytes/100 WBC (Bld) 18.0 % Low 19-41 [facility] Comment on above: Performed By: #### L 100.0100 ####[facility] [address] [place], [address] Nucleated RBC (Bld) [#/Vol] 0 10*3/uL Normal 0-5 [facility] Comment on above: Performed By: #### L 100.0100 ####[facility] [address] [place], [address] RDW SD 40.4 fl Normal 35.1-43.9 [facility] Comment on above: Performed By: #### L 100.0100 ####[facility] [address] [place], [address] Carbon dioxide, total [Moles /volume] in Central venous bloodOrdered By: Suyapa Godinez on 02-14-2025 CO2 [Moles/Vol] 18.1 mmol/L Low 21.0-32.0 [facility] Comment on above: Performed By: #### L 500.4050 ####[facility] [address] [place], [address] Chloride assayOrdered By: Candido Godinez on 02-14-2025 Chloride [Moles/Vol] 104 mmol/L 98-108 [facility] Comment on above: Performed By: #### L 500.4050 ####[facility] [address] [place], [address] Comprehensive Metabolic Prof ilon 02-14-2025 ALK PHOS 64 U/L Normal 35-104 [facility] Comment on above: Performed By: #### L 500.4050 ####[facility] [address] [place], [address] BUN/CRE 11.3 RATIO Normal 10-20 [facility] Comment on above: Performed By: #### L 500.4050 ####[facility] [address] [place], [address] ECRCL 190.12 ml/min Normal 50-250 [facility] Comment on above: Performed By: #### L 500.4050 ####[facility] [address] [place], [address] GAP 14 Normal 5-15 [facility] Comment on above: Performed By: #### L 500.4050 ####[facility] [address] [place], [address] Potassium [Moles/Vol] 3.5 mmol/L Normal 3.3-5.1 [facility] Comment on above: Performed By: #### L 500.4050 ####[facility] [address] [place], [place], [address] T PROT 6.2 g/dL Normal 5.9-8.4 [facility] Comment on above: Performed By: #### L 500.4050 ####[facility] [address] [place], [address] Comprehensive Metabolic Prof ilOrdered By: Suyapa Godinez on 02-14-2025 AST [Catalytic activity/Vol] 13 U/L <32 [facility] Comment on above: Performed By: #### L 500.4050 ####[facility] [address] [place], [address] Eosinophil percentageOrdered By: Suyapa Godinez on 02-14-2025 Eosinophils/100 WBC (Bld) 3.2 % 0-5 [facility] Comment on above: Performed By: #### L 100.0100 ####[facility] [address] [place], [address] Erythrocyte distribution wid th ratioOrdered By: Suyapa Godinez on 02-14-2025 Erythrocyte distribution width (RBC) [Ratio] 12.9 % 11.6-14.6 [facility] Comment on above: Performed By: #### L 100.0100 ####[facility] [address] [place], [address] Erythrocyte distribution wid th standard deviationOrdered By: Suyapa Godinez on 02-14-2025 Erythrocyte distribution width (RBC) [Ratio] 40.4 fl 35.1-43.9 [facility] Glomerular filtration rate ( GFR) estimation/1.73 sq m using serum, plasma, or whole bOrdered By: Suyapa Godinez on 02-14-2025 GFR/1.73 sq M.predicted among non-blacks MDRD (S/P/Bld) [Vol rate/Area] 128 mL/min/{1.73_m2} >60 [facility] Comment on above: mL/min/1.73m2 CKD-EP I Creatinine Equation (2020) Result Comment: mL/m in/1.73m2 CKD-EPI Creatinine Equation (2020) Performed By: #### L 500.4050 ####[facility] [address] [place], [place], [address] Hemoglobin measurementOrdere d By: Suyapa Godinez on 02-14-2025 Hemoglobin (Bld) [Mass/Vol] 11.3 g/dL Low 12.0-15.0 [facility] Comment on above: Performed By: #### L 100.0100 ####[facility] [address] [place], [place], [id number] Immature granulocytes/100 WB C Auto (Bld)Ordered By: Suyapa Godinez on 02-14-2025 Immature granulocytes/100 WBC (Bld) 0.500 % 0.0-0.9 [facility] Comment on above: IG% - Immature Granu locytes (promyelocytes, myelocytes and metamyelocytes) > 1% indicates that a LEFT SHIFT is Present. Ketones Test strip Ql (U)Ord ered By: Suyapa Godinez on 02-14-2025 Ketones Ql (U) Negative Negative [facility] Lipase measurementOrdered By : Suyapa Godinez on 02-14-2025 Lipase [Catalytic activity/Vol] 23 U/L 13-75 [facility] Comment on above: Please note:LIPASE r evised reference range effective 22. New Lipase methodology. Expected to produce lower values than the previous assay method. NEW Reference Range: 13 - 75 U/L Result Comment: José Miguel boston note:LIPASE revised reference range effective 22.New Lipase methodology. Expected to produce lower valuesthan the previous assay method.NEW Reference Range: 13 - 75 U/L Performed By: #### L 501.2450 ####[facility] [address] [place], [place], [address] MCV (mean corpuscular volume ) determinationOrdered By: Suyapa Godinez on 02-14-2025 MCV (RBC) [Entitic vol] 86.9 fL 81-99 [facility] Comment on above: Performed By: #### L 100.0100 ####[facility] [address] [place], [address] Mean corpuscular hemoglobin (MCH) determinationOrdered By: Suyapa Godinez on 02-14-2025 MCH (RBC) [Entitic mass] 29.7 pg 27.0-32.0 [facility] Comment on above: Performed By: #### L 100.0100 ####[facility] [address] [place], [address] Mean corpuscular hemoglobin concentration (MCHC) determinationOrdered By: Suyapa Godinez on 02-14-2025 MCHC (RBC) [Mass/Vol] 34.1 g/dL 32-36 [facility] Comment on above: Performed By: #### L 100.0100 ####[facility] [address] [place], [address] Mean platelet volume determi nationOrdered By: Suyapa Godinez on 02-14-2025 Platelet mean volume (Bld) [Entitic vol] 11.0 fL 6.2-12.0 [facility] Comment on above: Performed By: #### L 100.0100 ####[facility] [address] [place], [address] Microscopic analysis of urin e for red blood cells (RBC)Ordered By: Suyapa Godinez on 02-14-2025 Microscopic analysis of urine for red blood cells (RBC) 0 SEEN /hpf 0-5 [facility] Monocyte percentageOrdered B y: Suyapa Godinez on 02-14-2025 Monocytes/100 WBC (Bld) 5.9 % 0-10 [facility] Comment on above: Performed By: #### L 100.0100 ####[facility] [address] [place], [address] Mucus LM Ql (Urine sed)Order ed By: Suyapa Godinez on 02-14-2025 Mucus Ql (Urine sed) 0 SEEN /hpf [facility] Neutrophil percentageOrdered By: Suyapa Godinez on 02-14-2025 Neutrophils/100 WBC (Bld) 72.0 % High 47-70 [facility] Comment on above: Performed By: #### L 100.0100 ####[facility] [address] [place], [address] Nitrite Test strip Ql (U)Ord ered By: Suyapa Godinez on 02-14-2025 Nitrite Ql (U) Negative Negative [facility] Nucleated red blood cell per centageOrdered By: Suyapa Godinez on 02-14-2025 Nucleated RBC/100 WBC (Bld) [Ratio] 0 % 0-5 [facility] OB Biophysical Prof W/O NSTo n 02-14-2025 OB Biophysical Prof W/O NST Normal [facility] OB Triage Progress Noteon OB Triage Progress Note Normal [facility] Platelet countOrdered By: Candido Godinez on 02-14-2025 Platelets (Bld) [#/Vol] 192 10*3/uL 150-450 [facility] Comment on above: Performed By: #### L 100.0100 ####[facility] [address] [place], [address] Potassium measurement (mass/ volume)Ordered By: Suyapa Godienz on 02-14-2025 Potassium (Unsp spec) [Mass/Vol] 3.5 mmol/L 3.3-5.1 [facility] Protein Test strip Ql (U)Ord ered By: Suyapa Godinez on 02-14-2025 Protein Ql (U) Negative Negative [facility] Protein+Creatinine Ratio,Uri neon 02-14-2025 PROT:CRE RATIO 498 mg/g CRE High 0-200 [facility] Comment on above: Performed By: #### L 501.0900 ####[facility] [address] [place], [address] Protein (U) [Mass/Vol] 9.1 mg/dL Normal 0.0-12.0 [facility] Comment on above: Performed By: #### L 501.0900 ####[facility] [address] [place], [address] UR CREAT 18.30 mg/dL Low 28.00-217.00 [facility] Comment on above: Performed By: #### L 501.0900 ####[facility] [address] [place], [address] Random urine creatinine jazmine urement (mass/volume)Ordered By: Suyapa Godinez on 02-14-2025 Creatinine Unsp time (U) [Mass/Vol] 18.30 mg/dL Low 28.00-217.00 [facility] Serum creatinine measurement (mass/volume)Ordered By: Suyapa Godinez on 02-14-2025 Creatinine [Mass/Vol] 0.45 mg/dL Low 0.70-1.20 [facility] Comment on above: Performed By: #### L 500.4050 ####[facility] [address] [place], [address] Serum globulin measurementOr dered By: Suyapa Godinez on 02-14-2025 Globulin (S) [Mass/Vol] 2.6 g/dL 2.2-4.2 [facility] Comment on above: Performed By: #### L 500.4050 ####[facility] [address] [place], [address] Serum glucose measurement (m ass/volume)Ordered By: Suyapa Godinez on 02-14-2025 Glucose [Mass/Vol] 89 mg/dL 70-99 [facility] Comment on above: Performed By: #### L 500.4050 ####[facility] [address] [place], [address] Serum or plasma alanine isabel otransferase (ALT) measurementOrdered By: Suyapa Godinez on 02-14-2025 ALT [Catalytic activity/Vol] 7 U/L <35 [facility] Comment on above: Performed By: #### L 500.4050 ####[facility] [address] [place], [address] Serum or plasma albumin jazmine urement (mass/volume)Ordered By: Suyapa Godinez on 02-14-2025 Albumin [Mass/Vol] 3.6 g/dL 3.5-5.0 [facility] Comment on above: Performed By: #### L 500.4050 ####[facility] [address] [place], [address] Serum or plasma albumin/glob ulin mass ratioOrdered By: Suyapa Goidnez on 02-14-2025 Albumin/Globulin [Mass ratio] 1.4 {ratio} 0.9-2.4 [facility] Comment on above: Performed By: #### L 500.4050 ####[facility] [address] [place], [address] Serum or plasma alkaline molly sphatase measurementOrdered By: Suyapa Godinez on 02-14-2025 ALP [Catalytic activity/Vol] 64 U/L 35-104 [facility] Serum or plasma calcium jazmine urement (mass/volume)Ordered By: Suyapa Godinez on 02-14-2025 Calcium [Mass/Vol] 9.1 mg/dL 7.6-11.0 [facility] Comment on above: Performed By: #### L 500.4050 ####[facility] [address] [place], [address] Serum or plasma urea nitroge n measurement (mass/volume)Ordered By: Suyapa Godinez on 02-14-2025 Urea nitrogen [Mass/Vol] 5 mg/dL 4-19 [facility] Comment on above: Performed By: #### L 500.4050 ####[facility] [address] [place], [address] Sodium levelOrdered By: Alena Godinez on 02-14-2025 Sodium [Moles/Vol] 136 mmol/L 133-145 [facility] Comment on above: Performed By: #### L 500.4050 ####[facility] [address] [place], [address] Squamous epithelial cells de tection in urine sediment by light microscopyOrdered By: Suyapa Godinez on 02-14-2025 Epithelial cells.squamous LM Ql (Urine sed) 0-5 SEEN /hpf 5-10 [facility] Total proteinOrdered By: William Godinez on 02-14-2025 Protein [Mass/Vol] 6.2 g/dL 5.9-8.4 [facility] Urinalysis, Completeon 02-14 BACTERIA 2+ /hpf Normal None Seen [facility] Comment on above: Order Comment: CLEAN CATCH Performed By: #### L 400.0001 ####[facility] [address] [place], [address] EPI,SQUAMOUS 0-5 SEEN Normal 5-10 [facility] Comment on above: Order Comment: CLEAN CATCH Performed By: #### L 400.0001 ####[facility] [address] [place], [address] WBC 0-5 SEEN Normal 0-5 [facility] Comment on above: Order Comment: CLEAN CATCH Performed By: #### L 400.0001 ####[facility] [address] [place], [address] Mucus Ql (Urine sed) 0 SEEN Normal [facility] Comment on above: Order Comment: CLEAN CATCH Performed By: #### L 400.0001 ####[facility] [address] [place], [address] RBC 0 SEEN Normal 0-5 [facility] Comment on above: Order Comment: CLEAN CATCH Performed By: #### L 400.0001 ####[facility] [address] [place], [address] Urine clarityOrdered By: William Godinez on 02-14-2025 Clarity (U) Clear Clear [facility] Urine color determinationOrd ered By: Suyapa Godinez on 02-14-2025 Color (U) Yellow Yellow [facility] Urine glucose detectionOrder ed By: Suyapa Godinez on 02-14-2025 Glucose Ql (U) Normal mg/dl Normal [facility] Urine leukocyte esterase det ection by dipstickOrdered By: Suyapa Godinez on 02-14-2025 Leukocyte esterase Test strip Ql (U) Negative Negative [facility] Urine pHOrdered By: Suyapa leach on 02-14-2025 pH (U) 6.5 [pH] 5.0 - 8.0 [facility] Urine protein measurement (m ass/volume)Ordered By: Suyapa Godinez on 02-14-2025 Protein (U) [Mass/Vol] 9.1 mg/dL 0.0-12.0 [facility] Urine protein/creatinine mas s ratioOrdered By: Suyapa Godinez on 02-14-2025 Protein/Creatinine (U) [Mass ratio] 498 mg/g CRE High 0-200 [facility] Urine sediment bacteria coun t by microscopy (number/high power field)Ordered By: Suyapa Godinez on 02-14-2025 Bacteria LM.HPF (Urine sed) [#/Area] 2 /[HPF] None Seen [facility] Urine specific gravity measu rementOrdered By: Suyapa Godinez on 02-14-2025 Specific gravity (U) [Rel density] 1.010 1.002-1.030 [facility] Urine urobilinogen measureme ntOrdered By: Suyapa Godinez on 02-14-2025 Urobilinogen Ql (U) Normal mg/dl Normal [facility] White blood cell (WBC) count Ordered By: Suyapa Godinez on 02-14-2025 WBC (Bld) [#/Vol] 9.2 10*3/uL 4.4-11.0 [facility] Comment on above: Performed By: #### L 100.0100 ####[facility] [address] [place], [address] White blood cell countOrdere d By: Suyapa Godinez on 02-14-2025 White blood cell count 0-5 SEEN /hpf 0-5 [facility] - Chemistry and C hemistry - challengeOrdered By: Reina Romero on 02-13-2025 Glucose Ql (U) Negative [facility] - UrinalysisOrder ed By: Reina Romero on 02-13-2025 Protein Ql (U) Negative [facility] [employer]ist Office Visit Reporton 02-13-2025 [employer] Assessment Specialist Office Visit Report Normal [facility] Urine Cultureon 02-08-2025 URC Culture exhibits no growth. Normal [facility] Comment on above: Performed By: #### M 100.2200 ####[facility] [address] [place], [address] AST(SGOT)on 02-07-2025 AST [Catalytic activity/Vol] 13 U/L Normal <=31 [facility] Comment on above: Performed By: #### L 501.4405, L501.0900, L501.1400, L501.1105, L100.0500, L501.4100, L400.2010 ####[facility] [address] [place], [address] Alanine Aminotransferas (SGP T)on 02-07-2025 ALT [Catalytic activity/Vol] 8 U/L Normal <=34 [facility] Comment on above: Performed By: #### L 501.4405, L501.0900, L501.1400, L501.1105, L100.0500, L501.4100, L400.2010 ####[facility] [address] [place], [address] Bilirubin Test strip Ql (U)O rdered By: Linda Hammond on 02-07-2025 Bilirubin Ql (U) Negative Negative [facility] CBC-Complete Blood Cnt No Di ffon 02-07-2025 Erythrocyte distribution width (RBC) [Ratio] 12.6 % Normal 11.6-14.6 [facility] Comment on above: Performed By: #### L 501.4405, L501.0900, L501.1400, L501.1105, L100.0500, L501.4100, L400.2010 ####[facility] [address] [place], [address] Hematocrit (Bld) [Volume fraction] 33.6 % Low 37-47 [facility] Comment on above: Performed By: #### L 501.4405, L501.0900, L501.1400, L501.1105, L100.0500, L501.4100, L400.2010 ####[facility] [address] [place], [address] Hemoglobin (Bld) [Mass/Vol] 11.7 g/dL Low 12.0-15.0 [facility] Comment on above: Performed By: #### L 501.4405, L501.0900, L501.1400, L501.1105, L100.0500, L501.4100, L400.2010 ####[facility] [address] [place], [address] MCH (RBC) [Entitic mass] 29.8 pg Normal 27.0-32.0 [facility] Comment on above: Performed By: #### L 501.4405, L501.0900, L501.1400, L501.1105, L100.0500, L501.4100, L400.2010 ####[facility] [address] [place], [address] MCHC (RBC) [Mass/Vol] 34.8 g/dL Normal 32-36 [facility] Comment on above: Performed By: #### L 501.4405, L501.0900, L501.1400, L501.1105, L100.0500, L501.4100, L400.2010 ####[facility] [address] [place], [address] MCV (RBC) [Entitic vol] 85.7 fL Normal 81-99 [facility] Comment on above: Performed By: #### L 501.4405, L501.0900, L501.1400, L501.1105, L100.0500, L501.4100, L400.2010 ####[facility] [address] [place], [address] Platelet mean volume (Bld) [Entitic vol] 10.6 fL Normal 6.2-12.0 [facility] Comment on above: Performed By: #### L 501.4405, L501.0900, L501.1400, L501.1105, L100.0500, L501.4100, L400.2010 ####[facility] [address] [place], [address] Platelets (Bld) [#/Vol] 186 10*3/uL Normal 150-450 [facility] Comment on above: Performed By: #### L 501.4405, L501.0900, L501.1400, L501.1105, L100.0500, L501.4100, L400.2010 ####[facility] [address] [place], [address] RBC (Bld) [#/Vol] 3.92 10*6/uL Low 4.2-5.4 [facility] Comment on above: Performed By: #### L 501.4405, L501.0900, L501.1400, L501.1105, L100.0500, L501.4100, L400.2010 ####[facility] [address] [place], [address] RDW SD 38.9 fl Normal 35.1-43.9 [facility] Comment on above: Performed By: #### L 501.4405, L501.0900, L501.1400, L501.1105, L100.0500, L501.4100, L400.2010 ####[facility] [address] [place], [address] WBC (Bld) [#/Vol] 8.7 10*3/uL Normal 4.4-11.0 [facility] Comment on above: Performed By: #### L 501.4405, L501.0900, L501.1400, L501.1105, L100.0500, L501.4100, L400.2010 ####[facility] [address] [place], [address] Erythrocyte distribution wid th ratioOrdered By: Linda Hammond on 02-07-2025 Erythrocyte distribution width (RBC) [Ratio] 12.6 % 11.6-14.6 [facility] Erythrocyte distribution wid th standard deviationOrdered By: Linda Hammond on 02-07-2025 Erythrocyte distribution width (RBC) [Ratio] 38.9 fl 35.1-43.9 [facility] Glomerular filtration rate ( GFR) estimation/1.73 sq m using serum, plasma, or whole bOrdered By: Linda Hammond on 02-07-2025 GFR/1.73 sq M.predicted among non-blacks MDRD (S/P/Bld) [Vol rate/Area] 126 mL/min/{1.73_m2} >60 [facility] Comment on above: mL/min/1.73m2 CKD-EP I Creatinine Equation (2020) Hematocrit Auto (Bld) [Volum e fraction]Ordered By: Linda Hammond on 02-07-2025 Hematocrit (Bld) [Volume fraction] 33.6 % Low 37-47 [facility] Hemoglobin measurementOrdere d By: Linda Hammond on 02-07-2025 Hemoglobin (Bld) [Mass/Vol] 11.7 g/dL Low 12.0-15.0 [facility] Ketones Test strip Ql (U)Ord ered By: Linda Hammond on 02-07-2025 Ketones Ql (U) 5 mg/dl High Negative [facility] - Chemistry and C hemistry - challengeOrdered By: Linda Hammond on 02-07-2025 AST [Catalytic activity/Vol] 13 U/L <32 [facility] MCV (mean corpuscular volume ) determinationOrdered By: Linda Hammond on 02-07-2025 MCV (RBC) [Entitic vol] 85.7 fL 81-99 [facility] Mean corpuscular hemoglobin (MCH) determinationOrdered By: Linda Hammond on 02-07-2025 MCH (RBC) [Entitic mass] 29.8 pg 27.0-32.0 [facility] Mean corpuscular hemoglobin concentration (MCHC) determinationOrdered By: Linda Hammond on 02-07-2025 MCHC (RBC) [Mass/Vol] 34.8 g/dL 32-36 [facility] Mean platelet volume determi nationOrdered By: Linda Hammond on 02-07-2025 Platelet mean volume (Bld) [Entitic vol] 10.6 fL 6.2-12.0 [facility] Nitrite Test strip Ql (U)Ord ered By: Linda Hammond on 02-07-2025 Nitrite Ql (U) Negative Negative [facility] OB Triage Physician Noteon 0 02-07-2025 OB Triage Physician Note Normal [facility] Platelet countOrdered By: Fallon Hammond on 02-07-2025 Platelets (Bld) [#/Vol] 186 10*3/uL 150-450 [facility] Protein Test strip Ql (U)Ord ered By: Linda Hammond on 02-07-2025 Protein Ql (U) 15 mg/dl High Negative [facility] Protein+Creatinine Ratio,Uri neon 02-07-2025 PROT:CRE RATIO 174 mg/g CRE Normal 0-200 [facility] Comment on above: Performed By: #### L 501.4405, L501.0900, L501.1400, L501.1105, L100.0500, L501.4100, L400.2010 ####[facility] [address] [place], [place], [address] Protein (U) [Mass/Vol] 8.7 mg/dL Normal 0.0-12.0 [facility] Comment on above: Performed By: #### L 501.4405, L501.0900, L501.1400, L501.1105, L100.0500, L501.4100, L400.2010 ####[facility] [address] [place], [address] UR CREAT 50.20 mg/dL Normal 28.00-217.00 [facility] Comment on above: Performed By: #### L 501.4405, L501.0900, L501.1400, L501.1105, L100.0500, L501.4100, L400.2010 ####[facility] [address] [place], [address] RBC Auto (Bld) [#/Vol]Ordere d By: Linda Hammond on 02-07-2025 RBC (Bld) [#/Vol] 3.92 10*6/uL Low 4.2-5.4 [facility] Random urine creatinine jazmine urement (mass/volume)Ordered By: Linda Hammond on 02-07-2025 Creatinine Unsp time (U) [Mass/Vol] 50.20 mg/dL 28.00-217.00 [facility] Serum Creatinine AND GFRon 0 02-07-2025 Creatinine [Mass/Vol] 0.48 mg/dL Low 0.70-1.20 [facility] Comment on above: Performed By: #### L 501.4405, L501.0900, L501.1400, L501.1105, L100.0500, L501.4100, L400.2010 ####[facility] [address] [place], [address] ECRCL 177.60 ml/min Normal 50-250 [facility] Comment on above: Performed By: #### L 501.4405, L501.0900, L501.1400, L501.1105, L100.0500, L501.4100, L400.2010 ####[facility] [address] [place], [address] GFR/1.73 sq M.predicted among non-blacks MDRD (S/P/Bld) [Vol rate/Area] 126 mL/min/{1.73_m2} Normal >60 [facility] Comment on above: Result Comment: mL/m in/1.73m2 CKD-EPI Creatinine Equation (2020) Performed By: #### L 501.4405, L501.0900, L501.1400, L501.1105, L100.0500, L501.4100, L400.2010 ####[facility] [address] [place], [place], [id number] Serum creatinine measurement (mass/volume)Ordered By: Linda Hammond on 02-07-2025 Creatinine [Mass/Vol] 0.48 mg/dL Low 0.70-1.20 [facility] Serum or plasma alanine isabel otransferase (ALT) measurementOrdered By: Linda Hammond on 02-07-2025 ALT [Catalytic activity/Vol] 8 U/L <35 [facility] Serum or plasma uric acid me asurement (mass/volume)Ordered By: Linda Hammond on 02-07-2025 Urate [Mass/Vol] 4.4 mg/dL 2.6-6.0 [facility] Comment on above: The drugs N-Acetylcy steine and Metamizole may falsely depress this assay. Uric Acidon 02-07-2025 URIC 4.4 mg/dL Normal 2.6-6.0 [facility] Comment on above: Result Comment: The drugs N-Acetylcysteine and Metamizole may falselydepress this assay. Performed By: #### L 501.4405, L501.0900, L501.1400, L501.1105, L100.0500, L501.4100, L400.2010 ####[facility] [address] [place], [place], [id number] Urinalysis, Routine (Dipstic k)on 02-07-2025 BILIRUBIN URINE Negative Normal Negative [facility] Comment on above: Order Comment: COLLE CTOR TO SPECIFY Performed By: #### L 501.4405, L501.0900, L501.1400, L501.1105, L100.0500, L501.4100, L400.2010 ####[facility] [address] [place], [place], [id number] Clarity (U) Clear Normal Clear [facility] Comment on above: Order Comment: LUCRECIA CTOR TO SPECIFY Performed By: #### L 501.4405, L501.0900, L501.1400, L501.1105, L100.0500, L501.4100, L400.2010 ####[facility] [address] [place], [address] Color (U) Yellow Normal Yellow [facility] Comment on above: Order Comment: COLLE CTOR TO SPECIFY Performed By: #### L 501.4405, L501.0900, L501.1400, L501.1105, L100.0500, L501.4100, L400.2010 ####[facility] [address] [place], [address] GLUCOSE, UR Normal Normal Normal [facility] Comment on above: Order Comment: COLLE CTOR TO SPECIFY Performed By: #### L 501.4405, L501.0900, L501.1400, L501.1105, L100.0500, L501.4100, L400.2010 ####[facility] [address] [place], [address] KETONE UR 5 mg/dl Abnormal Negative [facility] Comment on above: Order Comment: COLLE CTOR TO SPECIFY Performed By: #### L 501.4405, L501.0900, L501.1400, L501.1105, L100.0500, L501.4100, L400.2010 ####[facility] [address] [place], [address] LEUK ESTERASE Negative Normal Negative [facility] Comment on above: Order Comment: COLLE CTOR TO SPECIFY Performed By: #### L 501.4405, L501.0900, L501.1400, L501.1105, L100.0500, L501.4100, L400.2010 ####[facility] [address] [place], [address] Nitrite Ql (U) Negative Normal Negative [facility] Comment on above: Order Comment: COLLE CTOR TO SPECIFY Performed By: #### L 501.4405, L501.0900, L501.1400, L501.1105, L100.0500, L501.4100, L400.2010 ####[facility] [address] [place], [address] OCCULT BLOOD-UR Negative Normal Negative [facility] Comment on above: Order Comment: COLLE CTOR TO SPECIFY Performed By: #### L 501.4405, L501.0900, L501.1400, L501.1105, L100.0500, L501.4100, L400.2010 ####[facility] [address] [place], [address] pH UR 7.0 Normal 5.0 - 8.0 [facility] Comment on above: Order Comment: LUCRECIA CTOR TO SPECIFY Performed By: #### L 501.4405, L501.0900, L501.1400, L501.1105, L100.0500, L501.4100, L400.2010 ####[facility] [address] [place], [address] PROT DIPSTX 15 mg/dl Abnormal Negative [facility] Comment on above: Order Comment: LUCRECIA CTOR TO SPECIFY Performed By: #### L 501.4405, L501.0900, L501.1400, L501.1105, L100.0500, L501.4100, L400.2010 ####[facility] [address] [place], [address] SP.GR. DIPSTX 1.010 Normal 1.002-1.030 [facility] Comment on above: Order Comment: LUCRECIA CTOR TO SPECIFY Performed By: #### L 501.4405, L501.0900, L501.1400, L501.1105, L100.0500, L501.4100, L400.2010 ####[facility] [address] [place], [address] UROBILI Normal Normal Normal [facility] Comment on above: Order Comment: COLLE CTOR TO SPECIFY Performed By: #### L 501.4405, L501.0900, L501.1400, L501.1105, L100.0500, L501.4100, L400.2011 ####[facility] [address] [place], [address] Urine clarityOrdered By: Tania Hammond on 02-07-2025 Clarity (U) Clear Clear [facility] Urine color determinationOrd ered By: Linda Hammond on 02-07-2025 Color (U) Yellow Yellow [facility] Urine cultureOrdered By: Tania Hammond on 02-07-2025 Bacteria identified Cx Nom (U) Culture exhibits no growth. [facility] Urine glucose detectionOrder ed By: Linda Hammond on 02-07-2025 Glucose Ql (U) Normal mg/dl Normal [facility] Urine leukocyte esterase det ection by dipstickOrdered By: Linda Hammond on 02-07-2025 Leukocyte esterase Test strip Ql (U) Negative Negative [facility] Urine pHOrdered By: Linda Hammond on 02-07-2025 pH (U) 7.0 [pH] 5.0 - 8.0 [facility] Urine protein measurement (m ass/volume)Ordered By: Linda Hammond on 02-07-2025 Protein (U) [Mass/Vol] 8.7 mg/dL 0.0-12.0 [facility] Urine protein/creatinine mas s ratioOrdered By: Linda Hammond on 02-07-2025 Protein/Creatinine (U) [Mass ratio] 174 mg/g CRE 0-200 [facility] Urine specific gravity measu rementOrdered By: Linda Hammond on 02-07-2025 Specific gravity (U) [Rel density] 1.010 1.002-1.030 [facility] Urine urobilinogen measureme ntOrdered By: Linda Hammond on 02-07-2025 Urobilinogen Ql (U) Normal mg/dl Normal [facility] White blood cell (WBC) count Ordered By: Linda Hammond on 02-07-2025 WBC (Bld) [#/Vol] 8.7 10*3/uL 4.4-11.0 [facility] Glucose Challenge Gest 1H 50 katharine 02-05-2025 GLU GEST 50g 1H 111 mg/dL Normal 70-140 [facility] Comment on above: Performed By: #### L 501.0250 ####[facility] [address] [place], [place], [phone] Glucose measurement at 2 fahad rs post-dose gestational glucose tolerance testOrdered By: Danya Simpson on 02-05-2025 Glucose [Mass/Vol] 111 mg/dL 70-140 [facility] Laboratory - Chemistry and C hemistry - challengeOrdered By: Reina Romero on 01-29-2025 Glucose Ql (U) Negative [facility] Laboratory - UrinalysisOrder ed By: Reina Romero on 01-29-2025 Protein Ql (U) Negative [facility] Office Visit Reporton 01-29-2025 [facility] Office Visit Report Normal [facility] Gestational GTT 3HR 100gon 0 01-14-2025 GEST GTT 100gm Normal [facility] Comment on above: Order Comment: Y Result Comment: FAST ING 88 Col: 01/14/25 0657GLUCOSE TOLERANCE TEST FOR Reference Interval GESTATIONAL DIABETES Fasting <105 mg/dL 1 hour <190 mg/dl 2 hour <165 mg/dl 3 hour <145 mg/dl 1 HR GLU 143 Col: 01/14/25 0911 2 HR GLU 126 Col: 01/14/25 1015 3 HR GLU 89 Col: 01/14/25 1115 Performed By: #### L 500.4710 ####[facility] [address] [place], [place], [address] Quantitative serum or plasma 3 hour gestational glucose tolerance panelOrdered By: Suyapa Godinez on 01-14-2025 Glucose tolerance 3 hours gestational panel See comment [facility] Comment on above: FASTING 88 Col: 03/03 0657GLUCOSE TOLERANCE TEST FOR Reference Interval GESTATIONAL DIABETES Fasting <105 mg/dL 1 hour <190 mg/dl 2 hour <165 mg/dl 3 hour <145 mg/dl 1 HR GLU 143 Col: 01/14/25 0911 2 HR GLU 126 Col: 01/14/25 1015 3 HR GLU 89 Col: 01/14/25 1115 Laboratory - Chemistry and C hemistry - challengeOrdered By: Suyapa Godinez on 01-13-2025 Glucose Ql (U) Negative [facility] Laboratory - UrinalysisOrder ed By: Suyapa Godinez on 01-13-2025 Protein Ql (U) Negative [facility] Office Visit Reporton 01-13-2025 [facility] Office Visit Report Normal [facility] Office Visit Reporton 01-03-2025 [facility] Office Visit Report Normal [facility] Absolute lymphocyte countOrd ered By: Reina Romero on 12-26-2024 Lymphocytes Auto (Unsp spec) [#/Vol] 1.32 10*3/uL 0.83-4.51 [facility] Absolute neutrophil countOrd ered By: Reina Romero on 12-26-2024 Neutrophils (Bld) [#/Vol] 5.7 10*3/uL 2.0-7.7 [facility] Automated lymphocyte count a s percentage of total leukocytesOrdered By: Reina Romero on 12-26-2024 Lymphocytes/100 WBC Auto (Unsp spec) 17.4 % Low 19-41 [facility] Basophil percentageOrdered B y: Reina Romero on 12-26-2024 Basophils/100 WBC (Bld) 0.4 % 0-1 [facility] CBC W/Diff, Automatedon 12-08 Absolute Lymph 1.32 X10 3/uL Normal 0.83-4.51 [facility] Comment on above: Performed By: #### L 501.0250, L100.0100, L3890.6006, L509.8002 ####[facility] [address] [place], [address] Absolute Neut 5.7 X10 3/uL Normal 2.0-7.7 [facility] Comment on above: Performed By: #### L 501.0250, L100.0100, L3890.6006, L509.8002 ####[facility] [address] [place], [address] Basophils/100 WBC (Bld) 0.4 % Normal 0-1 [facility] Comment on above: Performed By: #### L 501.0250, L100.0100, L3890.6006, L509.8002 ####[facility] [address] [place], [address] Eosinophils/100 WBC (Bld) 2.9 % Normal 0-5 [facility] Comment on above: Performed By: #### L 501.0250, L100.0100, L3890.6006, L509.8002 ####[facility] [address] [place], [address] Erythrocyte distribution width (RBC) [Ratio] 12.7 % Normal 11.6-14.6 [facility] Comment on above: Performed By: #### L 501.0250, L100.0100, L3890.6006, L509.8002 ####[facility] [address] [place], [address] Hematocrit (Bld) [Volume fraction] 33.8 % Low 37-47 [facility] Comment on above: Performed By: #### L 501.0250, L100.0100, L3890.6006, L509.8002 ####[facility] [address] [place], [address] Hemoglobin (Bld) [Mass/Vol] 11.8 g/dL Low 12.0-15.0 [facility] Comment on above: Performed By: #### L 501.0250, L100.0100, L3890.6006, L509.8002 ####[facility] [address] [place], [address] IG% 0.400 Normal 0.0-0.9 [facility] Comment on above: Result Comment: IG% - Immature Granulocytes (promyelocytes, myelocytes andmetamyelocytes) > 1% indicates that a LEFT SHIFT is Present. Performed By: #### L 501.0250, L100.0100, L3890.6006, L509.8002 ####[facility] [address] [place], [address] Lymphocytes/100 WBC (Bld) 17.4 % Low 19-41 [facility] Comment on above: Performed By: #### L 501.0250, L100.0100, L3890.6006, L509.8002 ####[facility] [address] [place], [address] MCH (RBC) [Entitic mass] 30.6 pg Normal 27.0-32.0 [facility] Comment on above: Performed By: #### L 501.0250, L100.0100, L3890.6006, L509.8002 ####[facility] [address] [place], [address] MCHC (RBC) [Mass/Vol] 34.9 g/dL Normal 32-36 [facility] Comment on above: Performed By: #### L 501.0250, L100.0100, L3890.6006, L509.8002 ####[facility] [address] [place], [address] MCV (RBC) [Entitic vol] 87.8 fL Normal 81-99 [facility] Comment on above: Performed By: #### L 501.0250, L100.0100, L3890.6006, L509.8002 ####[facility] [address] [place], [address] Monocytes/100 WBC (Bld) 3.8 % Normal 0-10 [facility] Comment on above: Performed By: #### L 501.0250, L100.0100, L3890.6006, L509.8002 ####[facility] [address] [place], [address] Neutrophils/100 WBC (Bld) 75.1 % High 47-70 [facility] Comment on above: Performed By: #### L 501.0250, L100.0100, L3890.6006, L509.8002 ####[facility] [address] [place], [address] Nucleated RBC (Bld) [#/Vol] 0 10*3/uL Normal 0-5 [facility] Comment on above: Performed By: #### L 501.0250, L100.0100, L3890.6006, L509.8002 ####[facility] [address] [place], [address] Platelet mean volume (Bld) [Entitic vol] 9.9 fL Normal 6.2-12.0 [facility] Comment on above: Performed By: #### L 501.0250, L100.0100, L3890.6006, L509.8002 ####[facility] [address] [place], [address] Platelets (Bld) [#/Vol] 196 10*3/uL Normal 150-450 [facility] Comment on above: Performed By: #### L 501.0250, L100.0100, L3890.6006, L509.8002 ####[facility] [address] [place], [address] RBC (Bld) [#/Vol] 3.85 10*6/uL Low 4.2-5.4 [facility] Comment on above: Performed By: #### L 501.0250, L100.0100, L3890.6006, L509.8002 ####[facility] [address] [place], [address] RDW SD 40.8 fl Normal 35.1-43.9 [facility] Comment on above: Performed By: #### L 501.0250, L100.0100, L3890.6006, L509.8002 ####[facility] [address] [place], [address] WBC (Bld) [#/Vol] 7.6 10*3/uL Normal 4.4-11.0 [facility] Comment on above: Performed By: #### L 501.0250, L100.0100, L3890.6006, L509.8002 ####[facility] [address] [place], [address] Eosinophil percentageOrdered By: Reina Romero on 12-26-2024 Eosinophils/100 WBC (Bld) 2.9 % 0-5 [facility] Erythrocyte distribution wid th ratioOrdered By: Reina Romero on 12-26-2024 Erythrocyte distribution width (RBC) [Ratio] 12.7 % 11.6-14.6 [facility] Erythrocyte distribution wid th standard deviationOrdered By: Reina Romero on 12-26-2024 Erythrocyte distribution width (RBC) [Ratio] 40.8 fl 35.1-43.9 [facility] Glucose Challenge Gest 1H 50 katharine 12-26-2024 GLU GEST 50g 1H 138 mg/dL Normal 70-140 [facility] Comment on above: Performed By: #### L 501.0250, L100.0100, L3890.6006, L509.8002 ####[facility] [address] [place], [address] Glucose measurement at 2 fahad rs post-dose gestational glucose tolerance testOrdered By: Reina Romero on 12-26-2024 Glucose [Mass/Vol] 138 mg/dL 70-140 [facility] HIVon 12-26-2024 HIV Non-Reactive Normal Nonreactive [facility] Comment on above: Result Comment: Non- ReactiveReactiveRepeatedly reactive samples must be confirmed according toCDC recommended confirmatory algorithms. The subresults foreither HIVAG or AHIV can be used as an aid in the selectionof the confirmation algorithm for reactive samples.Send out specimens with Reactive results to [facility] forconfirmation.Order the HIV antibody detection and differentiation:jose alberto#[id number] Performed By: #### L 501.0250, L100.0100, L3890.6006, L509.8002 ####[facility] [address] [place], [place], [id number] Hematocrit Auto (Bld) [Volum e fraction]Ordered By: Reina Romero on 12-26-2024 Hematocrit (Bld) [Volume fraction] 33.8 % Low 37-47 [facility] Hemoglobin measurementOrdere d By: Reina Romero on 12-26-2024 Hemoglobin (Bld) [Mass/Vol] 11.8 g/dL Low 12.0-15.0 [facility] Immature granulocytes/100 WB C Auto (Bld)Ordered By: Reina Romero on 12-26-2024 Immature granulocytes/100 WBC (Bld) 0.400 % 0.0-0.9 [facility] Comment on above: IG% - Immature Granu locytes (promyelocytes, myelocytes and metamyelocytes) > 1% indicates that a LEFT SHIFT is Present. MCV (mean corpuscular volume ) determinationOrdered By: Reina Romero on 12-26-2024 MCV (RBC) [Entitic vol] 87.8 fL 81-99 [facility] Mean corpuscular hemoglobin (MCH) determinationOrdered By: Reina Romero on 12-26-2024 MCH (RBC) [Entitic mass] 30.6 pg 27.0-32.0 [facility] Mean corpuscular hemoglobin concentration (MCHC) determinationOrdered By: Reina Romero on 12-26-2024 MCHC (RBC) [Mass/Vol] 34.9 g/dL 32-36 [facility] Mean platelet volume determi nationOrdered By: Reina Romero on 12-26-2024 Platelet mean volume (Bld) [Entitic vol] 9.9 fL 6.2-12.0 [facility] Monocyte percentageOrdered B y: Reina Romero on 12-26-2024 Monocytes/100 WBC (Bld) 3.8 % 0-10 [facility] Neutrophil percentageOrdered By: Reina Romero on 12-26-2024 Neutrophils/100 WBC (Bld) 75.1 % High 47-70 [facility] No Panel InformationOrdered By: Reina Romero on 12-26-2024 HIV (1&2) Antibody Non-Reactive Nonreactive [facility] Comment on above: Non-ReactiveReactive Repeatedly reactive samples must be confirmed according to CDC recommended confirmatory algorithms. The subresults for either HIVAG or AHIV can be used as an aid in the selection of the confirmation algorithm for reactive samples.Send out specimens with Reactive results to [facility] for confirmation.Order the HIV antibody detection and differentiation: #[id number] Nucleated red blood cell per centageOrdered By: Reina Romero on 12-26-2024 Nucleated RBC/100 WBC (Bld) [Ratio] 0 % 0-5 [facility] Platelet countOrdered By: Wade Romero on 12-26-2024 Platelets (Bld) [#/Vol] 196 10*3/uL 150-450 [facility] RBC Auto (Bld) [#/Vol]Ordere d By: Reina Romero on 12-26-2024 RBC (Bld) [#/Vol] 3.85 10*6/uL Low 4.2-5.4 [facility] Syphilis Antibodieson 2024 Syphilis Abs Non-Reactive Normal Nonreactive [facility] Comment on above: Performed By: #### L 501.0250, L100.0100, L3890.6006, L509.8002 ####[facility] [address] [place], [address] White blood cell (WBC) count Ordered By: Reina Romero on 12-26-2024 WBC (Bld) [#/Vol] 7.6 10*3/uL 4.4-11.0 [facility] Laboratory - Chemistry and C hemistry - challengeOrdered By: Reina Romero on 12-04-2024 Glucose Ql (U) Negative [facility] Laboratory - UrinalysisOrder ed By: Reina Romero on 12-04-2024 Protein Ql (U) Negative [facility] Office Visit Reporton 12-04-2024 [facility] Office Visit Report Normal [facility] Laboratory - Chemistry and C hemistry - challengeOrdered By: Piedad Moreno on 11-07-2024 Glucose Ql (U) Negative [facility] Laboratory - UrinalysisOrder ed By: Piedad Moreno on 11-07-2024 Protein Ql (U) Negative [facility] Office Visit Reporton 11-07-2024 [facility] Office Visit Report Normal [facility] Genital Culture Comprehensiv coleman 10-18-2024 VAC Reason for Exam: pelvic cramping No Gardnerella, Neisseria or beta-hemolytic Streptococcus isolated. Presumptive C albicans Amount Growth 3+ Normal [facility] Comment on above: Performed By: #### M 100.3200, M100.1999, M1 ####[facility] [address] [place], [address] Urine Cultureon 10-17-2024 URC Below infection level. Mixed Gram Positive Organisms Cumming Count 1000-10,000 MIXC Mixed contaminants. Submit a new specimen if indicated. Normal [facility] Comment on above: Performed By: #### M 100.3200, M100.1999, M1.0 ####[facility] [address] [place], [address] Gram Stainon 10-15-2024 GS Reason for Exam: pelvic cramping Gram Stain Rare Yeast Like Organisms 4+ Gram positive rods No White Blood Cells No Gram negative diplococci Score = 0 Interpretation: 0-3 Normal, 4-6 Intermediate, 7-[address] [facility] Comment on above: Performed By: #### M 100.3200, M100.1999, M10 ####[facility] [address] [place], [address] Gram stainOrdered By: Piedad Moreno on 10-15-2024 Microscopic observation Gram stain Nom (Unsp spec) [facility] Laboratory - Chemistry and C hemistry - challengeOrdered By: Piedad Moreno on 10-15-2024 Glucose Ql (U) Negative [facility] Laboratory - UrinalysisOrder ed By: Piedad Moreno on 10-15-2024 Protein Ql (U) Negative [facility] Office Visit Reporton 10-15-2024 [facility] Office Visit Report Normal [facility] Urine cultureOrdered By: Chin Moreno on 10-15-2024 Bacteria identified Cx Nom (U) Positive Abnormal [facility] Bilirubin Test strip Ql (U)O rdered By: Mary Jane Wade on 10-11-2024 Bilirubin Ql (U) Negative Negative [facility] Emergency Department Summary on 10-11-2024 Emergency [address] Normal [facility] Epithelial cells.squamous LM Ql (Urine sed)Ordered By: Mary Jane Wade on 10-11-2024 Epithelial cells.squamous LM.HPF (Urine sed) [#/Area] 0 /[HPF] 5-10 [facility] Glucose Ql (U)Ordered By: Sidney Wade on 10-11-2024 Urine Glucose (UA) Normal mg/dl Normal [facility] Ketones Test strip Ql (U)Ord ered By: Mary Jane Wade on 10-11-2024 Ketones Ql (U) Negative Negative [facility] Microscopic analysis of urin e for red blood cells (RBC)Ordered By: Mary Jane Wade on 10-11-2024 Microscopic analysis of urine for red blood cells (RBC) 0-5 SEEN /hpf 0-5 [facility] Urine RBC 0-5 SEEN /hpf 0-5 [facility] Mucus LM Ql (Urine sed)Order ed By: Mary Jane Wade on 10-11-2024 Mucus Ql (Urine sed) 0 SEEN /hpf [facility] Nitrite Test strip Ql (U)Ord ered By: Mary Jane Wade on 10-11-2024 Nitrite Ql (U) Negative Negative [facility] Protein Test strip Ql (U)Ord ered By: Mary Jane Wade on 10-11-2024 Protein Ql (U) Negative Negative [facility] Squamous epithelial cells de tection in urine sediment by light microscopyOrdered By: Mary Jane Wade on 10-11-2024 Epithelial cells.squamous LM Ql (Urine sed) 0-5 SEEN /hpf 5-10 [facility] Transvaginal w/Preg USon Transvaginal w/Preg US Normal [facility] Urinalysis, Completeon 10-11 EPI,SQUAMOUS 0-5 SEEN Normal 5-10 [facility] Comment on above: Order Comment: LUCRECIA CTOR TO SPECIFY Performed By: #### L 400.0001 ####[facility] [address] [place], [address] RBC 0-5 SEEN Normal 0-5 [facility] Comment on above: Order Comment: LUCRECIA CTOR TO SPECIFY Performed By: #### L 400.0001 ####[facility] [address] [place], [address] WBC 0-5 SEEN Normal 0-5 [facility] Comment on above: Order Comment: LUCRECIA CTOR TO SPECIFY Performed By: #### L 400.0001 ####[facility] [address] [place], [address] BACTERIA 0 SEEN Normal None Seen [facility] Comment on above: Order Comment: LUCRECIA CTOR TO SPECIFY Performed By: #### L 400.0001 ####[facility] [address] [place], [address] Mucus Ql (Urine sed) 0 SEEN Normal [facility] Comment on above: Order Comment: LUCRECIA CTOR TO SPECIFY Performed By: #### L 400.0001 ####[facility] [address] [place], [address] Urine blood detectionOrdered By: Mary Jane Wade on 10-11-2024 Urine Occult Blood 25 /ul High Negative [facility] Urine clarityOrdered By: Ellyn Wade on 10-11-2024 Clarity (U) Sl. Cloudy Clear [facility] Urine color determinationOrd ered By: Mary Jane Wade on 10-11-2024 Color (U) Yellow Yellow [facility] Urine glucose detectionOrder ed By: Mary Jane Wade on 10-11-2024 Glucose Ql (U) Normal mg/dl Normal [facility] Urine leukocyte esterase det ection by dipstickOrdered By: Mary Jane Wade on 10-11-2024 Leukocyte esterase Test strip Ql (U) 25 /ul High Negative [facility] Urine pHOrdered By: Mary Jane neal on 10-11-2024 pH (U) 6.0 [pH] 5.0 - 8.0 [facility] Urine sediment bacteria coun t by microscopy (number/high power field)Ordered By: Mary Jane Wade on 10-11-2024 Bacteria LM.HPF (Urine sed) [#/Area] 0 /[HPF] None Seen [facility] Urine specific gravity measu rementOrdered By: Mary Jane Wade on 10-11-2024 Specific gravity (U) [Rel density] 1.015 1.002-1.030 [facility] Urine urobilinogen measureme ntOrdered By: Mary Jane Wade on 10-11-2024 Urobilinogen Ql (U) Normal mg/dl Normal [facility] Urobilinogen Ql (U)Ordered B y: Mary Jane Wade on 10-11-2024 Urine Urobilinogen Normal mg/dl Normal [facility] White blood cell countOrdere d By: Mary Jane Wade on 10-11-2024 Urine WBC 0-5 SEEN /hpf 0-5 [facility] White blood cell count 0-5 SEEN /hpf 0-5 [facility] Laboratory - Chemistry and C hemistry - challengeOrdered By: Suyapa Godinez on 10-07-2024 Bilirubin Ql (U) Negative [facility] Glucose Ql (U) Negative [facility] Ketones Ql (U) Negative [facility] pH (U) 5 [pH] [facility] Specific gravity (U) [Rel density] 1.015 [facility] Urobilinogen (U) [Mass/Vol] Negative [facility] Laboratory - Hematology and Cell countsOrdered By: Suyapa Godinez on 10-07-2024 Hemoglobin Ql (U) Negative [facility] - Specimen inform ationOrdered By: Suyapa Godinez on 10-07-2024 Clarity (U) Clear [facility] Color (U) Yellow [facility] Laboratory - UrinalysisOrder ed By: Suyapa Godinez on 10-07-2024 Nitrite Ql (U) Negative [facility] Protein Ql (U) Negative [facility] No Panel InformationOrdered By: Suyapa Godinez on 10-07-[address] [facility] Urine Non-Hemolyzed Blood Negative [facility] [employer] Office Visit Reporton 10-07-2024 [employer] Office Visit Report Normal [facility] Absolute lymphocyte countOrd ered By: Reina Romero on 09-10-2024 Lymphocytes Auto (Unsp spec) [#/Vol] 1.58 10*3/uL 0.83-4.51 [facility] Absolute neutrophil countOrd ered By: Reina Romero on 09-10-2024 Neutrophils (Bld) [#/Vol] 5.1 10*3/uL 2.0-7.7 [facility] Anion gap in Serum or Plasma Ordered By: Reina Romero on 09-10-2024 Anion gap [Moles/Vol] 13 mmol/L 5-15 [facility] Automated lymphocyte count a s percentage of total leukocytesOrdered By: Reina Romero on 09-10-2024 Lymphocytes/100 WBC Auto (Unsp spec) 22.0 % 19-41 [facility] BUN/creatinine ratioOrdered By: Reina Romero on 09-10-2024 Urea nitrogen/Creatinine [Mass ratio] 17.4 mg/mg 10-20 [facility] Basophil percentageOrdered B y: Reina Romero on 09-10-2024 Basophils/100 WBC (Bld) 0.1 % 0-1 [facility] Bilirubin, totalOrdered By: Reina Romero on 09-10-2024 Bilirubin [Mass/Vol] 0.19 mg/dL 0.00-1.30 [facility] CBC W/Diff, Automatedon Absolute Lymph 1.58 X10 3/uL Normal 0.83-4.51 [facility] Comment on above: Performed By: #### L 3890.6301, L3890.6006, L100.0100, L500.4050, BTS, L509.4006, L509.8002, L900.0098, L501.9985, L3890.6102 ####[facility] [address] [place], [address] Absolute Neut 5.1 X10 3/uL Normal 2.0-7.7 [facility] Comment on above: Performed By: #### L 3890.6301, L3890.6006, L100.0100, L500.4050, BTS, L509.4006, L509.8002, L900.0098, L501.9985, L3890.6102 ####[facility] [address] [place], [address] Basophils/100 WBC (Bld) 0.1 % Normal 0-1 [facility] Comment on above: Performed By: #### L 3890.6301, L3890.6006, L100.0100, L500.4050, BTS, L509.4006, L509.8002, L900.0098, L501.9985, L3890.6102 ####[facility] [address] [place], [address](025) Eosinophils/100 WBC (Bld) 2.6 % Normal 0-5 [facility] Comment on above: Performed By: #### L 3890.6301, L3890.6006, L100.0100, L500.4050, BTS, L509.4006, L509.8002, L900.0098, L501.9985, L3890.6102 ####[facility] [address] [place], [address] Erythrocyte distribution width (RBC) [Ratio] 12.0 % Normal 11.6-14.6 [facility] Comment on above: Performed By: #### L 3890.6301, L3890.6006, L100.0100, L500.4050, BTS, L509.4006, L509.8002, L900.0098, L501.9985, L3890.6102 ####[facility] [address] [place], [address]( Hematocrit (Bld) [Volume fraction] 40.2 % Normal 37-47 [facility] Comment on above: Performed By: #### L 3890.6301, L3890.6006, L100.0100, L500.4050, BTS, L509.4006, L509.8002, L900.0098, L501.9985, L3890.6102 ####[facility] [address] [place], [address] Hemoglobin (Bld) [Mass/Vol] 13.9 g/dL Normal 12.0-15.0 [facility] Comment on above: Performed By: #### L 3890.6301, L3890.6006, L100.0100, L500.4050, BTS, L509.4006, L509.8002, L900.0098, L501.9985, L3890.6102 ####[facility] [address] [place], [address] IG% 0.300 Normal 0.0-0.9 [facility] Comment on above: Result Comment: IG% - Immature Granulocytes (promyelocytes, myelocytes andmetamyelocytes) > 1% indicates that a LEFT SHIFT is Present. Performed By: #### L 3890.6301, L3890.6006, L100.0100, L500.4050, BTS, L509.4006, L509.8002, L900.0098, L501.9985, L3890.6102 ####[facility] [address] [place], [address] Lymphocytes/100 WBC (Bld) 22.0 % Normal 19-41 [facility] Comment on above: Performed By: #### L 3890.6301, L3890.6006, L100.0100, L500.4050, BTS, L509.4006, L509.8002, L900.0098, L501.9985, L3890.6102 ####[facility] [address] [place], [address] MCH (RBC) [Entitic mass] 30.0 pg Normal 27.0-32.0 [facility] Comment on above: Performed By: #### L 3890.6301, L3890.6006, L100.0100, L500.4050, BTS, L509.4006, L509.8002, L900.0098, L501.9985, L3890.6102 ####[facility] [address] [place], [address] MCHC (RBC) [Mass/Vol] 34.6 g/dL Normal 32-36 [facility] Comment on above: Performed By: #### L 3890.6301, L3890.6006, L100.0100, L500.4050, BTS, L509.4006, L509.8002, L900.0098, L501.9985, L3890.6102 ####[facility] [address] [facility] [place], [address] MCV (RBC) [Entitic vol] 86.6 fL Normal 81-99 [facility] Comment on above: Performed By: #### L 3890.6301, L3890.6006, L100.0100, L500.4050, BTS, L509.4006, L509.8002, L900.0098, L501.9985, L3890.6102 ####[facility] [address] [facility] [place], [address] Monocytes/100 WBC (Bld) 4.3 % Normal 0-10 [facility] Comment on above: Performed By: #### L 3890.6301, L3890.6006, L100.0100, L500.4050, BTS, L509.4006, L509.8002, L900.0098, L501.9985, L3890.6102 ####[facility] [address] [facility] [place], [address] Neutrophils/100 WBC (Bld) 70.7 % High 47-70 [facility] Comment on above: Performed By: #### L 3890.6301, L3890.6006, L100.0100, L500.4050, BTS, L509.4006, L509.8002, L900.0098, L501.9985, L3890.6102 ####[facility] [address] [place], [address] Nucleated RBC (Bld) [#/Vol] 0 10*3/uL Normal 0-5 [facility] Comment on above: Performed By: #### L 3890.6301, L3890.6006, L100.0100, L500.4050, BTS, L509.4006, L509.8002, L900.0098, L501.9985, L3890.6102 ####[facility] [address] [place], [address] Platelet mean volume (Bld) [Entitic vol] 9.6 fL Normal 6.2-12.0 [facility] Comment on above: Performed By: #### L 3890.6301, L3890.6006, L100.0100, L500.4050, BTS, L509.4006, L509.8002, L900.0098, L501.9985, L3890.6102 ####[facility] [address] [facility] [place], [address] Platelets (Bld) [#/Vol] 281 10*3/uL Normal 150-450 [facility] Comment on above: Performed By: #### L 3890.6301, L3890.6006, L100.0100, L500.4050, BTS, L509.4006, L509.8002, L900.0098, L501.9985, L3890.6102 ####[facility] [address] [place], [place], [id number] RBC (Bld) [#/Vol] 4.64 10*6/uL Normal 4.2-5.4 [facility] Comment on above: Performed By: #### L 3890.6301, L3890.6006, L100.0100, L500.4050, BTS, L509.4006, L509.8002, L900.0098, L501.9985, L3890.6102 ####[facility] [address] [place], [place], [id number] RDW SD 37.5 fl Normal 35.1-43.9 [facility] Comment on above: Performed By: #### L 3890.6301, L3890.6006, L100.0100, L500.4050, BTS, L509.4006, L509.8002, L900.0098, L501.9985, L3890.6102 ####[facility] [address] [place], [address] WBC (Bld) [#/Vol] 7.2 10*3/uL Normal 4.4-11.0 [facility] Comment on above: Performed By: #### L 3890.6301, L3890.6006, L100.0100, L500.4050, BTS, L509.4006, L509.8002, L900.0098, L501.9985, L3890.6102 ####[facility] [address] [place], [place], [id number] Carbon dioxide, total [Moles /volume] in Central venous bloodOrdered By: Reina Romero on 09-10-2024 CO2 [Moles/Vol] 21.9 mmol/L 21.0-32.0 [facility] Chloride assayOrdered By: Wade Romero on 09-10-2024 Chloride [Moles/Vol] 104 mmol/L 98-108 [facility] Comprehensive Metabolic Prof ilon 09-10-2024 GAP 13 Normal 5-15 [facility] Comment on above: Order Comment: NIPT with Gender Performed By: #### L 3890.6301, L3890.6006, L100.0100, L500.4050, BTS, L509.4006, L509.8002, L900.0098, L501.9985, L3890.6102 ####[facility] [address] [place], [address] Albumin [Mass/Vol] 4.4 g/dL Normal 3.5-5.0 [facility] Comment on above: Order Comment: NIPT with Gender Performed By: #### L 3890.6301, L3890.6006, L100.0100, L500.4050, BTS, L509.4006, L509.8002, L900.0098, L501.9985, L3890.6102 ####[facility] [address] [place], [place], [id number] Albumin/Globulin [Mass ratio] 1.9 {ratio} Normal 0.9-2.4 [facility] Comment on above: Order Comment: NIPT with Gender Performed By: #### L 3890.6301, L3890.6006, L100.0100, L500.4050, BTS, L509.4006, L509.8002, L900.0098, L501.9985, L3890.6102 ####[facility] [address] [place], [place], [id number] ALK PHOS 60 U/L Normal 35-104 [facility] Comment on above: Order Comment: NIPT with Gender Performed By: #### L 3890.6301, L3890.6006, L100.0100, L500.4050, BTS, L509.4006, L509.8002, L900.0098, L501.9985, L3890.6102 ####[facility] [address] [place], [place], [id number] ALT [Catalytic activity/Vol] 22 U/L Normal <=34 [facility] Comment on above: Order Comment: NIPT with Gender Performed By: #### L 3890.6301, L3890.6006, L100.0100, L500.4050, BTS, L509.4006, L509.8002, L900.0098, L501.9985, L3890.6102 ####[facility] [address] [place], [place], [phone] AST [Catalytic activity/Vol] 17 U/L Normal <=31 [facility] Comment on above: Order Comment: NIPT with Gender Performed By: #### L 3890.6301, L3890.6006, L100.0100, L500.4050, BTS, L509.4006, L509.8002, L900.0098, L501.9985, L3890.6102 ####[facility] [address] [place], [place], [id number] Bilirubin [Mass/Vol] 0.19 mg/dL Normal 0.00-1.30 [facility] Comment on above: Order Comment: NIPT with Gender Performed By: #### L 3890.6301, L3890.6006, L100.0100, L500.4050, BTS, L509.4006, L509.8002, L900.0098, L501.9985, L3890.6102 ####[facility] [address] [place], [place], [phone] BUN/CRE 17.4 RATIO Normal 10-20 [facility] Comment on above: Order Comment: NIPT with Gender Performed By: #### L 3890.6301, L3890.6006, L100.0100, L500.4050, BTS, L509.4006, L509.8002, L900.0098, L501.9985, L3890.6102 ####[facility] [address] [place], [address] Calcium [Mass/Vol] 9.6 mg/dL Normal 7.6-11.0 [facility] Comment on above: Order Comment: NIPT with Gender Performed By: #### L 3890.6301, L3890.6006, L100.0100, L500.4050, BTS, L509.4006, L509.8002, L900.0098, L501.9985, L3890.6102 ####[facility] [address] [facility] [place], [address] Chloride [Moles/Vol] 104 mmol/L Normal 98-108 [facility] Comment on above: Order Comment: NIPT with Gender Performed By: #### L 3890.6301, L3890.6006, L100.0100, L500.4050, BTS, L509.4006, L509.8002, L900.0098, L501.9985, L3890.6102 ####[facility] [address] [facility] [place], [address] CO2 [Moles/Vol] 21.9 mmol/L Normal 21.0-32.0 [facility] Comment on above: Order Comment: NIPT with Gender Performed By: #### L 3890.6301, L3890.6006, L100.0100, L500.4050, BTS, L509.4006, L509.8002, L900.0098, L501.9985, L3890.6102 ####[facility] [address] [facility] [place], [address] Creatinine [Mass/Vol] 0.58 mg/dL Low 0.70-1.20 [facility] Comment on above: Order Comment: NIPT with Gender Performed By: #### L 3890.6301, L3890.6006, L100.0100, L500.4050, BTS, L509.4006, L509.8002, L900.0098, L501.9985, L3890.6102 ####[facility] [address] [place], [address] GFR/1.73 sq M.predicted among non-blacks MDRD (S/P/Bld) [Vol rate/Area] 121 mL/min/{1.73_m2} Normal >60 [facility] Comment on above: Order Comment: NIPT with Gender Result Comment: mL/m in/1.73m2 CKD-EPI Creatinine Equation (2020) Performed By: #### L 3890.6301, L3890.6006, L100.0100, L500.4050, BTS, L509.4006, L509.8002, L900.0098, L501.9985, L3890.6102 ####[facility] [address] [place], [address] Globulin (S) [Mass/Vol] 2.3 g/dL Normal 2.2-4.2 [facility] Comment on above: Order Comment: NIPT with Gender Performed By: #### L 3890.6301, L3890.6006, L100.0100, L500.4050, BTS, L509.4006, L509.8002, L900.0098, L501.9985, L3890.6102 ####[facility] [address] [place], [address] Glucose [Mass/Vol] 86 mg/dL Normal 70-99 [facility] Comment on above: Order Comment: NIPT with Gender Performed By: #### L 3890.6301, L3890.6006, L100.0100, L500.4050, BTS, L509.4006, L509.8002, L900.0098, L501.9985, L3890.6102 ####[facility] [address] [place], [address] Potassium [Moles/Vol] 3.9 mmol/L Normal 3.3-5.1 [facility] Comment on above: Order Comment: NIPT with Gender Performed By: #### L 3890.6301, L3890.6006, L100.0100, L500.4050, BTS, L509.4006, L509.8002, L900.0098, L501.9985, L3890.6102 ####[facility] [address] [place], [place], [id number] Sodium [Moles/Vol] 139 mmol/L Normal 133-145 [facility] Comment on above: Order Comment: NIPT with Gender Performed By: #### L 3890.6301, L3890.6006, L100.0100, L500.4050, BTS, L509.4006, L509.8002, L900.0098, L501.9985, L3890.6102 ####[facility] [address] [place], [address] T PROT 6.7 g/dL Normal 5.9-8.4 [facility] Comment on above: Order Comment: NIPT with Gender Performed By: #### L 3890.6301, L3890.6006, L100.0100, L500.4050, BTS, L509.4006, L509.8002, L900.0098, L501.9985, L3890.6102 ####[facility] [address] [place], [address] Urea nitrogen [Mass/Vol] 10 mg/dL Normal 4-19 [facility] Comment on above: Order Comment: NIPT with Gender Performed By: #### L 3890.6301, L3890.6006, L100.0100, L500.4050, BTS, L509.4006, L509.8002, L900.0098, L501.9985, L3890.6102 ####[facility] [address] [place], [address] Eosinophil percentageOrdered By: Reina Romero on 09-10-2024 Eosinophils/100 WBC (Bld) 2.6 % 0-5 [facility] Erythrocyte distribution wid th ratioOrdered By: Reina Romero on 09-10-2024 Erythrocyte distribution width (RBC) [Ratio] 12.0 % 11.6-14.6 [facility] Erythrocyte distribution wid th standard deviationOrdered By: Reina Romero on 09-10-2024 Erythrocyte distribution width (RBC) [Entitic vol] 37.5 fL 35.1-43.9 [facility] Erythrocyte distribution width (RBC) [Ratio] 37.5 fl 35.1-43.9 [facility] GFR/1.73 sq M.predicted javier g non-blacks MDRD (S/P/Bld) [Vol rate/Area]Ordered By: Reina Romero on 09-10-2024 Estimated GFR (MDRD) Non-Af Amer [address] >60 [facility] Comment on above: mL/min/1.73m2 CKD-EP I Creatinine Equation (2020) Glomerular filtration rate ( GFR) estimation/1.73 sq m using serum, plasma, or whole bOrdered By: Reina Romero on 09-10-2024 GFR/1.73 sq M.predicted among non-blacks MDRD (S/P/Bld) [Vol rate/Area] 121 mL/min/{1.73_m2} >60 [facility] Comment on above: mL/min/1.73m2 CKD-EP I Creatinine Equation (2020) HBV surface Ag Ql (S)Ordered By: Reina Romero on 09-10-2024 Hepatitis B Surface Antigen Non-Reactive Nonreactive [facility] Comment on above: Reactive: Presumptiv e evidence of HBV. Repeatedly reactive samples must be confirmed using a neutralization test ([employer] HBsAg Confirmatory Test)Non-Reactive: HBsAg not detected; does not exclude the possibility of exposure to HBV Hematocrit Auto (Bld) [Volum e fraction]Ordered By: Reina Romero on 09-10-2024 Hematocrit (Bld) [Volume fraction] 40.2 % 37-47 [facility] Hemoglobin A1con 09-10-2024 HbA1c (Bld) [Mass fraction] 5.1 % Low <=5.6 [facility] Comment on above: Performed By: #### L 3890.6301, L3890.6006, L100.0100, L500.4050, BTS, L509.4006, L509.8002, L900.0098, L501.9985, L3890.6102 ####[facility] [address] [place], [address] Hemoglobin A1c percentageOrd ered By: Reina Romero on 09-10-2024 HbA1c (Bld) [Mass fraction] 5.1 % Low >5.7 [facility] Hemoglobin measurementOrdere d By: Reina Romero on 09-10-2024 Hemoglobin (Bld) [Mass/Vol] 13.9 g/dL 12.0-15.0 [facility] Hepatitis C antibodyOrdered By: Reina Romero on 09-10-2024 Hepatitis C Antibody Non-Reactive Nonreactive [facility] Comment on above: Reactive: Presumptiv e evidence of antibodies to HCV. Follow CDC recommendations for supplemental testing.Non-Reactive: Antibodies to HCV were not detected; does not exclude the possibility of exposure to HCVReactive Results are presumptive evidence of antibodies to HCV. Follow CDC recommendations for supplemental testing.Order confirmation testing: HCV Quant by PCR testing - HCVPCR #[id number] Non Reactive: < 0.8 Equivocal: >/= 0.8 to < 1.0 Reactive: >/= 1.0The CDC requires that a reactive/equivocal HCV antibody result be sent out for confirmation. HCV Quant by PCR testing. Immature granulocytes/100 WB C Auto (Bld)Ordered By: Reina Romero on 09-10-2024 Immature granulocytes/100 WBC (Bld) 0.300 % 0.0-0.9 [facility] Comment on above: IG% - Immature Granu locytes (promyelocytes, myelocytes and metamyelocytes) > 1% indicates that a LEFT SHIFT is Present. L3890.6006on 09-10-2024 HIV Non-Reactive Normal Nonreactive [facility] Comment on above: Result Comment: Non- ReactiveReactiveRepeatedly reactive samples must be confirmed according toCDC recommended confirmatory algorithms. The subresults foreither HIVAG or AHIV can be used as an aid in the selectionof the confirmation algorithm for reactive samples.Send out specimens with Reactive results to [facility] forconfirmation.Order the HIV antibody detection and differentiation:lc#[id number] Performed By: #### L 3890.6301, L3890.6006, L100.0100, L500.4050, BTS, L509.4006, L509.8002, L900.0098, L501.9985, L3890.6102 ####[facility] [address] [facility]. [place], [place], [id number] L3890.6102on 09-10-2024 HEP B Surf Ag Non-Reactive Normal Nonreactive [facility] Comment on above: Result Comment: Reac tive: Presumptive evidence of HBV. Repeatedly reactivesamples must be confirmed using a neutralization test([employer] HBsAg Confirmatory Test)Non-Reactive: HBsAg not detected; does not exclude thepossibility of exposure to HBV Performed By: #### L 3890.6301, L3890.6006, L100.0100, L500.4050, BTS, L509.4006, L509.8002, L900.0098, L501.9985, L3890.6102 ####[facility] [address] [facility]. [place], [place], [id number] L3890.6301on 09-10-2024 Hepatitis C Ab Non-Reactive Normal Nonreactive [facility] Comment on above: Result Comment: Reac tive: Presumptive evidence of antibodies to HCV. [facility] for supplemental testing.Non-Reactive: Antibodies to HCV were not detected; does notexclude the possibility of exposure to HCVReactive Results are presumptive evidence of antibodies toHCV. Follow CDC recommendations for supplemental testing.Order confirmation testing: HCV Quant by PCR testing -HCVPCR #[id number] Non Reactive: < 0.8 Equivocal: >/= 0.8 to < 1.0 Reactive: >/= 1.0The [facility] requires that a reactive/equivocal HCV antibodyresult be sent out for confirmation. HCV Quant by PCRtesting. Performed By: #### L 3890.6301, L3890.6006, L100.0100, L500.4050, BTS, L509.4006, L509.8002, L900.0098, L501.9985, L3890.6102 ####[facility] [address] [place], [place], [address] L509.4006on 09-10-2024 Rubella IgG REAC Normal Nonreactive [facility] Comment on above: Result Comment: Anti body Result: InterpretationNon-Reactive: Non-ImmuneReactive: ImmuneThe following results were obtained with the ElecsysRubella IgG assay. Results from assays of othermanufacturers cannot be used interchangeably. Performed By: #### L 3890.6301, L3890.6006, L100.0100, L500.4050, BTS, L509.4006, L509.8002, L900.0098, L501.9985, L3890.6102 ####[facility] [address] [place], [address] L509.8002on 09-10-2024 Syphilis Abs Non-Reactive Normal Nonreactive [facility] Comment on above: Performed By: #### L 3890.6301, L3890.6006, L100.0100, L500.4050, BTS, L509.4006, L509.8002, L900.0098, L501.9985, L3890.6102 ####[facility] [address] [place], [place], [id number] Laboratory - Chemistry and C hemistry - challengeOrdered By: Reina Romero on 09-10-2024 AST [Catalytic activity/Vol] 17 U/L <32 [facility] Glucose Ql (U) Negative [facility] Laboratory - Microbiology an d Antimicrobial susceptibilityOrdered By: Reina Romero on 09-10-2024 HBV surface Ag Ql (S) Non-Reactive Nonreactive [facility] Comment on above: Reactive: Presumptiv e evidence of HBV. Repeatedly reactive samples must be confirmed using a neutralization test ([employer] HBsAg Confirmatory Test)Non-Reactive: HBsAg not detected; does not exclude the possibility of exposure to HBV Laboratory - UrinalysisOrder ed By: Reina Romero on 09-10-2024 Protein Ql (U) Negative [facility] Lymphocytes Auto (Unsp spec) [#/Vol]Ordered By: Reina Romero on 09-10-2024 Lymphocytes (Bld) [#/Vol] 1.58 10*3/uL 0.83-4.51 [facility] Lymphocytes/100 WBC Auto (Un sp spec)Ordered By: Reina Romero on 09-10-2024 Lymphocytes/100 WBC (Bld) 22.0 % 19-41 [facility] MCV (mean corpuscular volume ) determinationOrdered By: Reina Romero on 09-10-2024 MCV (RBC) [Entitic vol] 86.6 fL 81-99 [facility] Mean corpuscular hemoglobin (MCH) determinationOrdered By: Reina Romero on 09-10-2024 MCH (RBC) [Entitic mass] 30.0 pg 27.0-32.0 [facility] Mean corpuscular hemoglobin concentration (MCHC) determinationOrdered By: Reina Romero on 09-10-2024 MCHC (RBC) [Mass/Vol] 34.6 g/dL 32-36 [facility] Mean platelet volume determi nationOrdered By: Reina Romero on 09-10-2024 Platelet mean volume (Bld) [Entitic vol] 9.6 fL 6.2-12.0 [facility] Miscellaneous procedureOrder ed By: Reina Romero on 09-10-2024 Miscellaneous Test Comment SEE SCANNED REPORT [facility] Monocyte percentageOrdered B y: Reina Romero on 09-10-2024 Monocytes/100 WBC (Bld) 4.3 % 0-10 [facility] NATERAon 09-10-2024 NATURA SEE SCANNED REPORT Normal [facility] Comment on above: Order Comment: Comme nts: NIPT with Gender Performed By: #### L 3890.6301, L3890.6006, L100.0100, L500.4050, BTS, L509.4006, L509.8002, L900.0098, L501.9985, L3890.6102 ####[facility] [address] [place], [address] Neutrophil percentageOrdered By: Reina Romero on 09-10-2024 Neutrophils/100 WBC (Bld) 70.7 % High 47-70 [facility] No Panel InformationOrdered By: Reina Romero on 09-10-2024 HIV (1&2) Antibody Non-Reactive Nonreactive [facility] Comment on above: Non-ReactiveReactive Repeatedly reactive samples must be confirmed according to CDC recommended confirmatory algorithms. The subresults for either HIVAG or AHIV can be used as an aid in the selection of the confirmation algorithm for reactive samples.Send out specimens with Reactive results to [facility] for confirmation.Order the HIV antibody detection and differentiation: #[id number] Nucleated red blood cell per centageOrdered By: Reina Romero on 09-10-2024 Nucleated RBC/100 WBC (Bld) [Ratio] 0 % 0-5 [facility] Assessment Specialist Office Visit Reporton 09-10-2024 [facility] Assessment Specialist Office Visit Report Normal [facility] Platelet countOrdered By: Wade Romero on 09-10-2024 Platelets (Bld) [#/Vol] 281 10*3/uL 150-450 [facility] Potassium (Unsp spec) [Mass/ Vol]Ordered By: Reina Romero on 09-10-2024 Potassium [Moles/Vol] 3.9 mmol/L 3.3-5.1 [facility] Potassium measurement (mass/ volume)Ordered By: Renia Romero on 09-10-2024 Potassium (Unsp spec) [Mass/Vol] 3.9 mmol/L 3.3-5.1 [facility] RBC Auto (Bld) [#/Vol]Ordere d By: Reina Romero on 09-10-2024 RBC (Bld) [#/Vol] 4.64 10*6/uL 4.2-5.4 [facility] Rubella immune status determ ination by IgG antibody assayOrdered By: Reina Romero on 09-10-2024 Rubella IgG Antibody REAC Nonreactive [facility] Comment on above: Antibody Result: Int erpretationNon-Reactive: Non-ImmuneReactive: ImmuneThe following results were obtained with the [employer] Rubella IgG assay. Results from assays of other manufacturers cannot be used interchangeably. Serum creatinine measurement (mass/volume)Ordered By: Reina Romero on 09-10-2024 Creatinine [Mass/Vol] 0.58 mg/dL Low 0.70-1.20 [facility] Serum globulin measurementOr dered By: Reina Romero on 09-10-2024 Globulin (S) [Mass/Vol] 2.3 g/dL 2.2-4.2 [facility] Serum glucose measurement (m ass/volume)Ordered By: Reina oRmero on 09-10-2024 Glucose [Mass/Vol] 86 mg/dL 70-99 [facility] Serum or plasma alanine isabel otransferase (ALT) measurementOrdered By: Reina Romero on 09-10-2024 ALT [Catalytic activity/Vol] 22 U/L <35 [facility] Serum or plasma albumin jazmine urement (mass/volume)Ordered By: Reina Romero on 09-10-2024 Albumin [Mass/Vol] 4.4 g/dL 3.5-5.0 [facility] Serum or plasma albumin/glob ulin mass ratioOrdered By: Reina Romero on 09-10-2024 Albumin/Globulin [Mass ratio] 1.9 {ratio} 0.9-2.4 [facility] Serum or plasma alkaline molly sphatase measurementOrdered By: Reina Romero on 09-10-2024 ALP [Catalytic activity/Vol] 60 U/L 35-104 [facility] Serum or plasma calcium jazmine urement (mass/volume)Ordered By: Reina Romero on 09-10-2024 Calcium [Mass/Vol] 9.6 mg/dL 7.6-11.0 [facility] Serum or plasma urea nitroge n measurement (mass/volume)Ordered By: Reina Romero on 09-10-2024 Urea nitrogen [Mass/Vol] 10 mg/dL 4-19 [facility] Sodium levelOrdered By: Bernadine Romero on 09-10-2024 Sodium [Moles/Vol] 139 mmol/L 133-145 [facility] T. pallidum abOrdered By: Wade Romero on 09-10-2024 Syphilis Total Antibody Non-Reactive Nonreactiv e [facility] Total proteinOrdered By: Eleonora Romero on 09-10-2024 Protein [Mass/Vol] 6.7 g/dL 5.9-8.4 [facility] Type AND Screenon 09-10-2024 Ab SCREEN GEL Negative [facility] Comment on above: Order Comment: PN Performed By: #### L 3890.6301, L3890.6006, L100.0100, L500.4050, BTS, L509.4006, L509.8002, L900.0098, L501.9985, L3890.6102 ####[facility] [address] [place], [place], [id number] White blood cell (WBC) count Ordered By: Reina Romero on 09-10-2024 WBC (Bld) [#/Vol] 7.2 10*3/uL 4.4-11.0 [facility] Laboratory - Chemistry and C hemistry - challengeOrdered By: Suyapa Godinez on 08-26-2024 Glucose Ql (U) Negative [facility] Laboratory - UrinalysisOrder ed By: Suyapa Godinez on 08-26-2024 Protein Ql (U) Negative [facility] Assessment Specialist Office Visit Reporton 08-26-2024 [facility] Assessment Specialist Office Visit Report Normal [facility] Wound Cultureon 08-23-[address] [facility] Comment on above: Performed By: #### M 100.2000, M100.3000 ####[facility] [address] [place], [place], [id number] Urine Cultureon 08-16-2024 URC Mixed Gram Positive Organisms Cumming Count <1000 MIXC Mixed contaminants. Submit a new specimen if indicated. [facility] Comment on above: Performed By: #### L 501.0900, L7000.1800, M100.2200 ####[facility] [address] [place], [address] Chlamydia/GC GUCCI aptimaon CHLAMY,NUC ACID Negative Normal Negative [facility] Comment on above: Performed By: #### L 501.0900, L7000.1800, M100.2200 ####[facility] [address] [place], [address] GC BY NUC ACID Negative Normal Negative [facility] Comment on above: Result Comment: Perf ormed at: =G - [facility] [address] [id number] Director: Rachel Smallwood MD, Phone: [phone] Performed By: #### L 501.0900, L7000.1800, M100.2200 ####[facility] [address] [place], [address] Gram Stainon 08-14-2024 GS vaginal inclusion cyst Gram Stain 1+ Epithelial cells 1+ Gram positive rods Normal [facility] Comment on above: Performed By: #### M 100.2000, M100.3000 ####[facility] [address] [place], [address] C. trachomatis rRNA GUCCI+prob e Ql (Unsp spec)Ordered By: Reina Romero on 08-13-2024 Chlamydia DNA (GUCCI) Negative Negative [facility] Chlamydia trachomatis rRNA d etection by probe and target amplification methodOrdered By: Reina Romero on 08-13-2024 C. trachomatis rRNA GUCCI+probe Ql (Unsp spec) Negative Negative [facility] Gram stainOrdered By: Nicolasa Romero on 08-13-2024 Microscopic observation Gram stain Nom (Unsp spec) [facility] Neisseria gonorrhoeae nuclei c acid detection by amplified probe techniqueOrdered By: Reina Romero on 08-13-2024 N. gonorrhoeae DNA GUCCI+probe Ql (Unsp spec) Negative Negative [facility] Comment on above: Performed at: =G - [facility] [address] [id number] Director: Rachel Smallwood MD, Phone: [phone] [facility] Office Visit Reporton 08-13-2024 [facility] Assessment Specialist Office Visit Report Normal [facility] Protein+Creatinine Ratio,Uri neon 08-13-2024 PROT:CRE RATIO 90 mg/g CRE Normal 0-200 [facility] Comment on above: Performed By: #### L 501.0900, L7000.1800, M100.2200 ####[facility] [address] [place], [address] Protein (U) [Mass/Vol] 8.8 mg/dL Normal <11.9 [facility] Comment on above: Performed By: #### L 501.0900, L7000.1800, M100.2200 ####[facility] [address] [place], [address] UR CREAT 98.30 mg/dL Normal NO RANGE EST. [facility] Comment on above: Performed By: #### L 501.0900, L7000.1800, M100.2200 ####[facility] [address] [place], [address] Protein/Creatinine (U) [Mass ratio]Ordered By: Reina Romero on 08-13-2024 Urine Protein/Creatinine Ratio 90 mg/g CRE 0-200 [facility] Random urine protein measure mentOrdered By: Reina Romero on 08-13-2024 Protein (U) [Mass/Vol] 8.8 mg/dL 0.0-11.8 [facility] Routine wound cultureOrdered By: Reina Romero on 08-13-2024 Wound Culture Streptococcus sanguinis Abnormal [facility] Wound Culture Presumptive C albicans Abnormal [facility] Wound Culture Actinomyces naeslundii Abnormal [facility] Urine creatinine measurement (mass/volume)Ordered By: Reina Romero on 08-13-2024 Creatinine (U) [Mass/Vol] 98.30 mg/dL NO RANGE EST. [facility] Urine cultureOrdered By: Eleonora Romero on 08-13-2024 Bacteria identified Cx Nom (U) Positive Abnormal [facility] Urine protein/creatinine mas s ratioOrdered By: Reina Heather on 08-13-2024 Protein/Creatinine (U) [Mass ratio] 90 mg/g CRE 0-200 [facility] Gastroenterology Visit Repor ton 07-08-2024 Gastroenterology Visit Report Normal [facility] Chlamydia/GC GUCCI aptimaon CHLAMY,NUC ACID Negative Normal Negative [facility] Comment on above: Performed By: #### M 100, M100.3200, L7000.1800, M100.2200 ####[facility] [address] [place], [address] GC BY NUC ACID Negative Normal Negative [facility] Comment on above: Result Comment: Perf ormed at: =G - [facility] [address] [id number] Director: Rachel Smallwood MD, Phone: [phone] Performed By: #### M 100, M1.3200, L7000.1800, M100.2200 ####[facility] [address] [place], [address] Genital Culture Comprehensiv coleman 06-27-2024 VAC Reason for Exam: vaginal discharge Normal vaginal yulia isolated. No yeast, Gardnerella, Neisseria or beta-hemolytic Streptococcus isolated. Normal [facility] Comment on above: Performed By: #### M 100, .3200, L7000.1800, M100.2200 ####[facility] [address] [place], [address] Urine Cultureon 06-27-2024 URC Culture exhibits no growth. Normal [facility] Comment on above: Performed By: #### M 100.1999, M100.3200, L7000.1800, M100.2200 ####[facility] [address] [place], [address] C. trachomatis rRNA GUCCI+prob e Ql (Unsp spec)Ordered By: Ivett Marquez on 06-26-2024 Chlamydia DNA (GUCCI) Negative Negative [facility] Genital cultureOrdered By: Ernestina Marquez on 06-26-2024 Genital Culture Neisseria or beta-hemolytic Streptococcus isolated. [facility] Gram Stainon 06-26-2024 GS Reason for Exam: vaginal discharge Gram Stain 4+ Gram variable christoph Rare Gram positive rods No White Blood Cells Score = 8 Interpretation: 0-3 Normal, 4-6 Intermediate, 7-[address] [facility] Comment on above: Performed By: #### M 100.2000, M100.3200, L7000.1800, M100.2200 ####[facility] [address] [place], [address] Gram stainOrdered By: Ivett Marquez on 06-26-2024 Microscopic observation Gram stain Nom (Unsp spec) [facility] Laboratory - Chemistry and C hemistry - challengeon 06-26-2024 Bilirubin Ql (U) Negative [facility] Glucose Ql (U) Negative [facility] Ketones Ql (U) Negative [facility] pH (U) 5 [pH] [facility] Specific gravity (U) [Rel density] 1.010 [facility] Urobilinogen (U) [Mass/Vol] Negative [facility] Laboratory - Hematology and Cell countson 06-26-2024 Hemoglobin Ql (U) Negative [facility] - Specimen inform ationon 06-26-2024 Clarity (U) Clear [facility] Color (U) Yellow [facility] - Urinalysison Nitrite Ql (U) Negative [facility] Protein Ql (U) Negative [facility] Neisseria gonorrhoeae nuclei c acid detection by amplified probe techniqueOrdered By: Ivett Marquez on 06-26-2024 N. gonorrhoeae DNA GUCCI+probe Ql (Unsp spec) Negative Negative [facility] Comment on above: Performed at: =[address] [id number] Director: Rachel Smallwood MD, Phone: [phone] No Panel Informationon 06-26 POC Trichomonas (Rapid) Negative [facility] Urine Leukocytes Positive [facility] Urine Non-Hemolyzed Blood [facility] Assessment Specialist Office Visit Reporton 06-26-2024 [facility] Assessment Specialist Office Visit Report Normal [facility] Urine cultureOrdered By: Mak Marquez on 06-26-2024 Bacteria identified Cx Nom (U) Culture exhibits no growth. [facility] Gastroenterology Visit Repor ton 06-24-2024 Gastroenterology Visit Report Normal [facility] Colonoscopy Reporton 024 Colonoscopy Report Normal [facility] MR/POSTOP.ANEon 06-11-2024 MR/POSTOP.ANE Normal [facility] MR/[id number] 06-11-2024 MR/POSTOPAN2 Normal [facility] ,Urineon 06-11-2024 Beta HCG ( test) Ql (U) Negative Normal [facility] Comment on above: Result Comment: Very dilute urine specimens, as indicated by a low specificgravity, may not contain nutrition representative levels of hCG.If is still suspected, a first morning urinespecimen should be collected 48 hours later and tested. Performed By: #### L 400.7600 ####[facility] [address] [place], [place], [id number] Urine testOrdered By: Jose Yanez on 06-11-2024 HCG ( test) Ql (U) Negative [facility] Comment on above: Very dilute urine sp ecimens, as indicated by a low specificgravity, may not contain nutrition representative levels of hCG. If is still suspected, a first morning urinespecimen should be collected 48 hours later and tested. Inital Evaluation (1) - PTon 05-27-2024 Inital Evaluation (1) - PT Normal [facility] Celiac Disease Profileon ENDOMYSIAL IGA Negative Normal Negative [facility] Comment on above: Order Comment: N Performed By: #### L 503.6075, L3100.1850, L3100.3425, L504.2610, L503.6550, L3410.2400, L503.6150, L100.9950, L100.0100 ####[facility] [address] [place], [place], [id number] tTG IGA <2 Normal 0-3 [facility] Comment on above: Order Comment: N Result Comment: Nega tive 0 - 3 Weak Positive 4 - 10 Positive >10 Tissue Transglutaminase (tTG) has been identified as the endomysial antigen. Studies have demonstr- ated that endomysial IgA antibodies have over 99% specificity for gluten sensitive enteropathy. Performed By: #### L 503.6075, L3100.1850, L3100.3425, L504.2610, L503.6550, L3410.2400, L503.6150, L100.9950, L100.0100 ####[facility] [address] [place], [address] tTG IGG 3 U/mL Normal 0-5 [facility] Comment on above: Order Comment: N Result Comment: Nega tive 0 - 5 Weak Positive 6 - 9 Positive >9 Performed By: #### L 503.6075, L3100.1850, L3100.3425, L504.2610, L503.6550, L3410.2400, L503.6150, L100.9950, L100.0100 ####[facility] [address] [place], [address] Haptoglobinon 05-14-2024 HAPTOGLOBIN 86 mg/dL Normal 33-278 [facility] Comment on above: Order Comment: N Result Comment: Perf ormed at: - [facility] [id number] Director: Sukhdev Cullen PhD, Phone: [phone] Performed By: #### L 503.6075, L3100.1850, L3100.3425, L504.2610, L503.6550, L3410.2400, L503.6150, L100.9950, L100.0100 ####[facility] [address] [place], [address] DELIA + Protein Elect, Serumon 05-14-2024 Albumin [Mass/Vol] 3.9 g/dL Normal 2.9-4.4 [facility] Comment on above: Order Comment: N Performed By: #### L 503.6075, L3100.1850, L3100.3425, L504.2610, L503.6550, L3410.2400, L503.6150, L100.9950, L100.0100 ####[facility] [address] [place], [place], [phone]) Albumin/Globulin [Mass ratio] 1.6 {ratio} Normal 0.7-1.7 [facility] Comment on above: Order Comment: N Performed By: #### L 503.6075, L3100.1850, L3100.3425, L504.2610, L503.6550, L3410.2400, L503.6150, L100.9950, L100.0100 ####[facility] [address] [place], [address](536) AJGHH-2-RDPT 0.2 g/dL Normal 0.0-0.4 [facility] Comment on above: Order Comment: N Performed By: #### L 503.6075, L3100.1850, L3100.3425, L504.2610, L503.6550, L3410.2400, L503.6150, L100.9950, L100.0100 ####[facility] [address] [place], [place], [phone](289) KXAXO-9-OXKY 0.6 g/dL Normal 0.4-1.0 [facility] Comment on above: Order Comment: N Performed By: #### L 503.6075, L3100.1850, L3100.3425, L504.2610, L503.6550, L3410.2400, L503.6150, L100.9950, L100.0100 ####[facility] [address] [place], [place], [phone](929) BETA GLOBULIN 0.9 g/dL Normal 0.7-1.3 [facility] Comment on above: Order Comment: N Performed By: #### L 503.6075, L3100.1850, L3100.3425, L504.2610, L503.6550, L3410.2400, L503.6150, L100.9950, L100.0100 ####[facility] [address] [place], [address](584) GAMMA GLOBULIN 0.9 g/dL Normal 0.4-1.8 [facility] Comment on above: Order Comment: N Performed By: #### L 503.6075, L3100.1850, L3100.3425, L504.2610, L503.6550, L3410.2400, L503.6150, L100.9950, L100.0100 ####[facility] [address] [place], [place], [phone](075) Globulin (S) [Mass/Vol] 2.6 g/dL Normal 2.2-3.9 [facility] Comment on above: Order Comment: N Performed By: #### L 503.6075, L3100.1850, L3100.3425, L504.2610, L503.6550, L3410.2400, L503.6150, L100.9950, L100.0100 ####[facility] [address] [place], [place], [phone](112) DELIA RESULT,S Comment Normal . [facility] Comment on above: Order Comment: N Result Comment: No m onoclonality detected. Performed By: #### L 503.6075, L3100.1850, L3100.3425, L504.2610, L503.6550, L3410.2400, L503.6150, L100.9950, L100.0100 ####[facility] [address] [place], [place], [phone](138) IMMUNOGLOB A QN 76 mg/dL Low 87-352 [facility] Comment on above: Order Comment: N Performed By: #### L 503.6075, L3100.1850, L3100.3425, L504.2610, L503.6550, L3410.2400, L503.6150, L100.9950, L100.0100 ####[facility] [address] [place], [place], [id number] IMMUNOGLOB G QN 922 mg/dL Normal 586-1602 [facility] Comment on above: Order Comment: N Performed By: #### L 503.6075, L3100.1850, L3100.3425, L504.2610, L503.6550, L3410.2400, L503.6150, L100.9950, L100.0100 ####[facility] [address] [place], [place], [id number] IMMUNOGLOB M QN 132 mg/dL Normal 26-217 [facility] Comment on above: Order Comment: N Performed By: #### L 503.6075, L3100.1850, L3100.3425, L504.2610, L503.6550, L3410.2400, L503.6150, L100.9950, L100.0100 ####[facility] [address] [place], [place], [id number] M-Isra Not Observed Normal Not Observed [facility] Comment on above: Order Comment: N Performed By: #### L 503.6075, L3100.1850, L3100.3425, L504.2610, L503.6550, L3410.2400, L503.6150, L100.9950, L100.0100 ####[facility] [address] [place], [place], [id number] NOTE: Comment Normal . [facility] Comment on above: Order Comment: N Result Comment: Prot ein electrophoresis scan will follow via computer,mail, or pig machine operator delivery. Performed By: #### L 503.6075, L3100.1850, L3100.3425, L504.2610, L503.6550, L3410.2400, L503.6150, L100.9950, L100.0100 ####[facility] [address] [place], [address] Protein [Mass/Vol] 6.5 g/dL Normal 6.0-8.5 [facility] Comment on above: Order Comment: N Performed By: #### L 503.6075, L3100.1850, L3100.3425, L504.2610, L503.6550, L3410.2400, L503.6150, L100.9950, L100.0100 ####[facility] [address] [place], [address] CBC W/Diff, Automatedon 11-0 -2023 Absolute Lymph 1.29 X10 3/uL Normal 0.83-4.51 [facility] Comment on above: Performed By: #### L 503.6075, L3100.1850, L3100.3425, L504.2610, L503.6550, L3410.2400, L503.6150, L100.9950, L100.0100 ####[facility] [address] [place], [address] Absolute Neut 2.6 X10 3/uL Normal 2.0-7.7 [facility] Comment on above: Performed By: #### L 503.6075, L3100.1850, L3100.3425, L504.2610, L503.6550, L3410.2400, L503.6150, L100.9950, L100.0100 ####[facility] [address] [place], [address] Basophils/100 WBC (Bld) 0.9 % Normal 0-1 [facility] Comment on above: Performed By: #### L 503.6075, L3100.1850, L3100.3425, L504.2610, L503.6550, L3410.2400, L503.6150, L100.9950, L100.0100 ####[facility] [address] [place], [address] Eosinophils/100 WBC (Bld) 3.8 % Normal 0-5 [facility] Comment on above: Performed By: #### L 503.6075, L3100.1850, L3100.3425, L504.2610, L503.6550, L3410.2400, L503.6150, L100.9950, L100.0100 ####[facility] [address] [place], [address] Erythrocyte distribution width (RBC) [Ratio] 13.4 % Normal 11.6-14.6 [facility] Comment on above: Performed By: #### L 503.6075, L3100.1850, L3100.3425, L504.2610, L503.6550, L3410.2400, L503.6150, L100.9950, L100.0100 ####[facility] [address] [place], [address] Hematocrit (Bld) [Volume fraction] 39.3 % Normal 37-47 [facility] Comment on above: Performed By: #### L 503.6075, L3100.1850, L3100.3425, L504.2610, L503.6550, L3410.2400, L503.6150, L100.9950, L100.0100 ####[facility] [address] [facility] [place], [address] Hemoglobin (Bld) [Mass/Vol] 13.0 g/dL Normal 12.0-15.0 [facility] Comment on above: Performed By: #### L 503.6075, L3100.1850, L3100.3425, L504.2610, L503.6550, L3410.2400, L503.6150, L100.9950, L100.0100 ####[facility] [address] [place], [address] IG% 0.700 Normal 0.0-0.9 [facility] Comment on above: Result Comment: IG% - Immature Granulocytes (promyelocytes, myelocytes andmetamyelocytes) > 1% indicates that a LEFT SHIFT is Present. Performed By: #### L 503.6075, L3100.1850, L3100.3425, L504.2610, L503.6550, L3410.2400, L503.6150, L100.9950, L100.0100 ####[facility] [address] [facility] [place], [address] Lymphocytes/100 WBC (Bld) 29.1 % Normal 19-41 [facility] Comment on above: Performed By: #### L 503.6075, L3100.1850, L3100.3425, L504.2610, L503.6550, L3410.2400, L503.6150, L100.9950, L100.0100 ####[facility] [address] [facility] [place], [address] MCH (RBC) [Entitic mass] 29.5 pg Normal 27.0-32.0 [facility] Comment on above: Performed By: #### L 503.6075, L3100.1850, L3100.3425, L504.2610, L503.6550, L3410.2400, L503.6150, L100.9950, L100.0100 ####[facility] [address] [facility] [place], [address] MCHC (RBC) [Mass/Vol] 33.1 g/dL Normal 32-36 [facility] Comment on above: Performed By: #### L 503.6075, L3100.1850, L3100.3425, L504.2610, L503.6550, L3410.2400, L503.6150, L100.9950, L100.0100 ####[facility] [address] [place], [address] MCV (RBC) [Entitic vol] 89.1 fL Normal 81-99 [facility] Comment on above: Performed By: #### L 503.6075, L3100.1850, L3100.3425, L504.2610, L503.6550, L3410.2400, L503.6150, L100.9950, L100.0100 ####[facility] [address] [facility] [place], [address] Monocytes/100 WBC (Bld) 7.2 % Normal 0-10 [facility] Comment on above: Performed By: #### L 503.6075, L3100.1850, L3100.3425, L504.2610, L503.6550, L3410.2400, L503.6150, L100.9950, L100.0100 ####[facility] [address] [facility] [place], [address] Neutrophils/100 WBC (Bld) 58.3 % Normal 47-70 [facility] Comment on above: Performed By: #### L 503.6075, L3100.1850, L3100.3425, L504.2610, L503.6550, L3410.2400, L503.6150, L100.9950, L100.0100 ####[facility] [address] [place], [address] Nucleated RBC (Bld) [#/Vol] 0 10*3/uL Normal 0-5 [facility] Comment on above: Performed By: #### L 503.6075, L3100.1850, L3100.3425, L504.2610, L503.6550, L3410.2400, L503.6150, L100.9950, L100.0100 ####[facility] [address] [place], [address] Platelet mean volume (Bld) [Entitic vol] 9.3 fL Normal 6.2-12.0 [facility] Comment on above: Performed By: #### L 503.6075, L3100.1850, L3100.3425, L504.2610, L503.6550, L3410.2400, L503.6150, L100.9950, L100.0100 ####[facility] [address] [place], [address] Platelets (Bld) [#/Vol] 291 10*3/uL Normal 150-450 [facility] Comment on above: Performed By: #### L 503.6075, L3100.1850, L3100.3425, L504.2610, L503.6550, L3410.2400, L503.6150, L100.9950, L100.0100 ####[facility] [address] [place], [address] RBC (Bld) [#/Vol] 4.41 10*6/uL Normal 4.2-5.4 [facility] Comment on above: Performed By: #### L 503.6075, L3100.1850, L3100.3425, L504.2610, L503.6550, L3410.2400, L503.6150, L100.9950, L100.0100 ####[facility] [address] [place], [address] RDW SD 43.7 fl Normal 35.1-43.9 [facility] Comment on above: Performed By: #### L 503.6075, L3100.1850, L3100.3425, L504.2610, L503.6550, L3410.2400, L503.6150, L100.9950, L100.0100 ####[facility] [address] [place], [place], [address] WBC (Bld) [#/Vol] 4.4 10*3/uL Normal 4.4-11.0 [facility] Comment on above: Performed By: #### L 503.6075, L3100.1850, L3100.3425, L504.2610, L503.6550, L3410.2400, L503.6150, L100.9950, L100.0100 ####[facility] [address] [place], [place], [id number] Ferritinon 05-10-2024 Ferritin [Mass/Vol] 88 ng/mL Normal 8-252 [facility] Comment on above: Order Comment: 1 Performed By: #### L 503.6075, L3100.1850, L3100.3425, L504.2610, L503.6550, L3410.2400, L503.6150, L100.9950, L100.0100 ####[facility] [address] [place], [place], [id number] Ironon 05-10-2024 Iron [Mass/Vol] 213 ug/dL High 50-170 [facility] Comment on above: Order Comment: 1 Performed By: #### L 503.6075, L3100.1850, L3100.3425, L504.2610, L503.6550, L3410.2400, L503.6150, L100.9950, L100.0100 ####[facility] [address] [place], [place], [id number] Iron Binding Capacity,Totalo n 05-10-2024 TIBC 279 ug/dL Normal 250-450 [facility] Comment on above: Order Comment: 1 Performed By: #### L 503.6075, L3100.1850, L3100.3425, L504.2610, L503.6550, L3410.2400, L503.6150, L100.9950, L100.0100 ####[facility] [address] [place], [address] LDHon 05-10-2024 LDH 161 U/L Normal 84-246 [facility] Comment on above: Order Comment: 1 Performed By: #### L 503.6075, L3100.1850, L3100.3425, L504.2610, L503.6550, L3410.2400, L503.6150, L100.9950, L100.0100 ####[facility] [address] [place], [address] [facility] Office Visit Reporton 05-10-2024 [facility] Assessment Specialist Office Visit Report Normal [facility] Retic Panelon 05-10-2024 IM RET FRACTION 9.90 Normal 3.00-15.90 [facility] Comment on above: Performed By: #### L 503.6075, L3100.1850, L3100.3425, L504.2610, L503.6550, L3410.2400, L503.6150, L100.9950, L100.0100 ####[facility] [address] [place], [place], [id number] RET-HE 34.1 pg Normal 30-35 [facility] Comment on above: Performed By: #### L 503.6075, L3100.1850, L3100.3425, L504.2610, L503.6550, L3410.2400, L503.6150, L100.9950, L100.0100 ####[facility] [address] [place], [address] Retic Count 2.28 High 0.5-1.5 [facility] Comment on above: Performed By: #### L 503.6075, L3100.1850, L3100.3425, L504.2610, L503.6550, L3410.2400, L503.6150, L100.9950, L100.0100 ####[facility] [address] [place], [address] Gastroenterology Visit Repor ton 04-23-2024 Gastroenterology Visit Report Normal [facility] Office Visit Reporton 03-21-2024 [facility]ist Office Visit Report Normal [facility] AST(SGOT)on 03-19-2024 AST [Catalytic activity/Vol] 8 U/L Low 15-37 [facility] Comment on above: Performed By: #### L 501.0900, L501.4100, L501.1105, L501.4405, L501.1400 ####[facility] [address] [place], [address] Alanine Aminotransferas (SGP T)on 03-19-2024 ALT [Catalytic activity/Vol] 9 U/L Low 13-56 [facility] Comment on above: Performed By: #### L 501.0900, L501.4100, L501.1105, L501.4405, L501.1400 ####[facility] [address] [place], [address] CBC W/Diff, Automatedon 03-10 PLT EST ADEQUATE Normal ADEQ [facility] Comment on above: Performed By: #### L 100.0100, BTS ####[facility] [address] 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 L509.8000on 03-19-2024 Syphilis Abs Non-Reactive Normal [facility] Comment on above: Performed By: #### L 509.8000 ####[facility] [address] [place], [address] Operative Reporton Operative Report Normal [facility] Protein+Creatinine Ratio,Uri neon 03-19-2024 PROT:CRE RATIO 316 mg/g CRE High 0-200 [facility] Comment on above: Performed By: #### L 501.0900, L501.4100, L501.1105, L501.4405, L501.1400 ####[facility] [address] [place], [address] Protein (U) [Mass/Vol] 25.8 mg/dL High <11.9 [facility] Comment on above: Performed By: #### L 501.0900, L501.4100, L501.1105, L501.4405, L501.1400 ####[facility] [address] [place], [address] UR CREAT 81.60 mg/dL Normal NO RANGE EST. [facility] Comment on above: Performed By: #### L 501.0900, L501.4100, L501.1105, L501.4405, L501.1400 ####[facility] [address] [place], [address] Serum Creatinine AND GFRon 0 03-19-2024 Creatinine [Mass/Vol] 0.54 mg/dL Low 0.55-1.02 [facility] Comment on above: Result Comment: The validity of the calculated GFR GFRAA in patients over70 years has not been determined. Clinical correlation isessential. Performed By: #### L 501.0900, L501.4100, L501.1105, L501.4405, L501.1400 ####[facility] [address] [place], [address] ECRCL 159.36 ml/min Normal [facility] Comment on above: Performed By: #### L 501.0900, L501.4100, L501.1105, L501.4405, L501.1400 ####[facility] [address] [place], [address] EST GFR - AA 166 mL/min Normal >60 [facility] Comment on above: Result Comment: Afri can [place] GFR Calc Performed By: #### L 501.0900, L501.4100, L501.1105, L501.4405, L501.1400 ####[facility] [address] [place], [address] GFR/1.73 sq M.predicted among non-blacks MDRD (S/P/Bld) [Vol rate/Area] 137 mL/min/{1.73_m2} Normal >60 [facility] Comment on above: Result Comment: Non- GFR Calc Performed By: #### L 501.0900, L501.4100, L501.1105, L501.4405, L501.1400 ####[facility] [address] [place], [address] Type AND Screenon 03-19-2024 ABO and Rh group Nom (Bld) Blood group A Rh(D) positive Normal [facility] Comment on above: Order Comment: Labor Performed By: #### L 100.0100, BTS ####[facility] [address] [place], [address] Uric Acidon 03-19-2024 URIC 4.5 mg/dL Normal 2.6-6.0 [facility] Comment on above: Result Comment: The drugs N-Acetylcysteine and Metamizole may falselydepress this assay. Performed By: #### L 501.0900, L501.4100, L501.1105, L501.4405, L501.1400 ####[facility] [address] [place], [address] Genital Culture Comprehensiv coleman 03-13-2024 VAC Reason for Exam: vaginal irritation Presumptive C albicans Amount Growth 3+ Normal [facility] Comment on above: Performed By: #### M 100.2000, M100.3200 ####[facility] [address] [place], [address] Gram Stainon 03-12-2024 GS Reason for Exam: vaginal irritation Gram Stain 4+ Gram positive rods No Gram negative diplococci Score = 0 Interpretation: 0-3 Normal, 4-6 Intermediate, 7-[address] [facility] Comment on above: Performed By: #### M 100.2000, M100.3200 ####[facility] [address] [place], [address] [facility] Assessment Specialist Office Visit Reporton 03-12-2024 Mission Assessment Specialist Office Visit Report Normal [facility] CBC W/Diff, Automatedon 02-08 SMEAR COMMENT SCANNED Normal [facility] Comment on above: Performed By: #### L 100.0100 ####[facility] [address] [place], [address] CBC W/Diff, Automatedon 02-08 PLT EST ADEQUATE Normal ADEQ [facility] Comment on above: Performed By: #### L 100.0100, L500.4050, L501.0900 ####[facility] [address] [place], [address] SMEAR COMMENT SCANNED Normal [facility] Comment on above: Result Comment: Plea se note: For this sample, a platelet estimate isprovided rather than a platelet count due to plateletclumping. Other parameters associated with this sample arenot affected by platelet clumping. If a more accurateplatelet count is required, a redraw of the patient will benecessary. Performed By: #### L 100.0100, L500.4050, L501.0900 ####[facility] [address] [place], [address] Comprehensive Metabolic Prof ilon 03-05-2024 Albumin [Mass/Vol] 2.8 g/dL Low 3.2-5.0 [facility] Comment on above: Performed By: #### L 100.0100, L500.4050, L501.0900 ####[facility] [address] [place], [address] Albumin/Globulin [Mass ratio] 0.8 {ratio} Low 0.9-2.4 [facility] Comment on above: Performed By: #### L 100.0100, L500.4050, L501.0900 ####[facility] [address] [place], [address] ALK P 94 U/L Normal 45-117 [facility] Comment on above: Performed By: #### L 100.0100, L500.4050, L501.0900 ####[facility] [address] [place], [address] ALT [Catalytic activity/Vol] 14 U/L Normal 13-56 [facility] Comment on above: Performed By: #### L 100.0100, L500.4050, L501.0900 ####[facility] [address] [place], [address] AST [Catalytic activity/Vol] 12 U/L Low 15-37 [facility] Comment on above: Performed By: #### L 100.0100, L500.4050, L501.0900 ####[facility] [address] [place], [address] Bilirubin [Mass/Vol] 0.40 mg/dL Normal 0.20-1.00 [facility] Comment on above: Result Comment: For patients on eltrombopag therapy, use of Dimension Doyline TBIL is not recommended. Performed By: #### L 100.0100, L500.4050, L501.0900 ####[facility] [address] [place], [address] BUN/CRE 12.5 RATIO Normal 10-20 [facility] Comment on above: Performed By: #### L 100.0100, L500.4050, L501.0900 ####[facility] [address] [place], [address] CA,Total 9.0 mg/dL Normal 8.5-10.1 [facility] Comment on above: Performed By: #### L 100.0100, L500.4050, L501.0900 ####[facility] [address] [place], [address] Chloride [Moles/Vol] 106 mmol/L Normal 98-107 [facility] Comment on above: Performed By: #### L 100.0100, L500.4050, L501.0900 ####[facility] [address] [place], [address] CO2 [Moles/Vol] 23.0 mmol/L Normal 21.0-32.0 [facility] Comment on above: Performed By: #### L 100.0100, L500.4050, L501.0900 ####[facility] [address] [place], [address] Creatinine [Mass/Vol] 0.56 mg/dL Normal 0.55-1.02 [facility] Comment on above: Result Comment: The validity of the calculated GFR GFRAA in patients over70 years has not been determined. Clinical correlation isessential. Performed By: #### L 100.0100, L500.4050, L501.0900 ####[facility] [address] [place], [address] EST GFR - AA 159 mL/min Normal >60 [facility] Comment on above: Result Comment: Afri can [place] GFR Calc Performed By: #### L 100.0100, L500.4050, L501.0900 ####[facility] [address] [place], [address] GAP 9 Normal 5-15 [facility] Comment on above: Performed By: #### L 100.0100, L500.4050, L501.0900 ####[facility] [address] [place], [address] GFR/1.73 sq M.predicted among non-blacks MDRD (S/P/Bld) [Vol rate/Area] 131 mL/min/{1.73_m2} Normal >60 [facility] Comment on above: Result Comment: Non- GFR Calc Performed By: #### L 100.0100, L500.4050, L501.0900 ####[facility] [address] [place], [address] Globulin (S) [Mass/Vol] 3.5 g/dL Normal 2.2-4.2 [facility] Comment on above: Performed By: #### L 100.0100, L500.4050, L501.0900 ####[facility] [address] [place], [address] Glucose [Mass/Vol] 82 mg/dL Normal 74-106 [facility] Comment on above: Performed By: #### L 100.0100, L500.4050, L501.0900 ####[facility] [address] [place], [address] Potassium [Moles/Vol] 3.7 mmol/L Normal 3.5-5.1 [facility] Comment on above: Performed By: #### L 100.0100, L500.4050, L501.0900 ####[facility] [address] [place], [address] Sodium [Moles/Vol] 138 mmol/L Normal 136-145 [facility] Comment on above: Performed By: #### L 100.0100, L500.4050, L501.0900 ####[facility] [address] [place], [address] T PROT 6.3 g/dL Low 6.4-8.2 [facility] Comment on above: Performed By: #### L 100.0100, L500.4050, L501.0900 ####[facility] [address] [place], [address] Urea nitrogen [Mass/Vol] 7 mg/dL Normal 7-18 [facility] Comment on above: Performed By: #### L 100.0100, L500.4050, L501.0900 ####[facility] [address] [place], [address] Protein+Creatinine Ratio,Uri neon 03-05-2024 PROT:CRE RATIO 188 mg/g CRE Normal 0-200 [facility] Comment on above: Performed By: #### L 100.0100, L500.4050, L501.0900 ####[facility] [address] [place], [address] Protein (U) [Mass/Vol] 54.0 mg/dL High <11.9 [facility] Comment on above: Performed By: #### L 100.0100, L500.4050, L501.0900 ####[facility] [address] [place], [address] UR CREAT 288.00 mg/dL Normal NO RANGE EST. [facility] Comment on above: Performed By: #### L 100.0100, L500.4050, L501.0900 ####[facility] [address] [place], [address] (ROM) Rupture Of Membraneson 03-04-2024 ROM Negative Normal Negative [facility] Comment on above: Order Comment: Comme nts: STAT Result Comment: Amni otic fluid not present indicates No Rupture of FetalMembranes at time of specimen collection. Performed By: #### L 205.1000 ####[facility] [address] [place], [address] CBC W/Diff, Automatedon 08-2 Absolute Neut Normal 2.0-7.7 [facility] Comment on above: Result Comment: NO S PECIMEN RECEIVED Performed By: #### L 500.4050, L501.0900, L100.0100 ####[facility] [address] [place], [address] HCT Normal 37-47 [facility] Comment on above: Result Comment: NO S PECIMEN RECEIVED Performed By: #### L 500.4050, L501.0900, L100.0100 ####[facility] [address] [place], [address] HGB Normal 12.0-15.0 [facility] Comment on above: Result Comment: NO S PECIMEN RECEIVED Performed By: #### L 500.4050, L501.0900, L100.0100 ####[facility] [address] [place], [address] MCH Normal 27.0-32.0 [facility] Comment on above: Result Comment: NO S PECIMEN RECEIVED Performed By: #### L 500.4050, L501.0900, L100.0100 ####[facility] [address] [place], [address] MCHC Normal 32-36 [facility] Comment on above: Result Comment: NO S PECIMEN RECEIVED Performed By: #### L 500.4050, L501.0900, L100.0100 ####[facility] [address] [place], [address] MCV Normal 81-99 [facility] Comment on above: Result Comment: NO S PECIMEN RECEIVED Performed By: #### L 500.4050, L501.0900, L100.0100 ####[facility] [address] [place], [address] NEUT% Normal 47-70 [facility] Comment on above: Result Comment: NO S PECIMEN RECEIVED Performed By: #### L 500.4050, L501.0900, L100.0100 ####[facility] [address] [place], [address] PLT Normal 150-450 [facility] Comment on above: Result Comment: NO S PECIMEN RECEIVED Performed By: #### L 500.4050, L501.0900, L100.0100 ####[facility] [address] [place], [address] RBC Normal 4.2-5.4 [facility] Comment on above: Result Comment: NO S PECIMEN RECEIVED Performed By: #### L 500.4050, L501.0900, L100.0100 ####[facility] [address] [place], [address] RDW CV Normal 11.6-14.6 [facility] Comment on above: Result Comment: NO S PECIMEN RECEIVED Performed By: #### L 500.4050, L501.0900, L100.0100 ####[facility] [address] [place], [address] RDW SD Normal 35.1-43.9 [facility] Comment on above: Result Comment: NO S PECIMEN RECEIVED Performed By: #### L 500.4050, L501.0900, L100.0100 ####[facility] [address] [place], [address] WBC Normal 4.4-11.0 [facility] Comment on above: Result Comment: NO S PECIMEN RECEIVED Performed By: #### L 500.4050, L501.0900, L100.0100 ####[facility] [address] [place], [address] Comprehensive Metabolic Prof ilon 03-04-2024 ALB Normal 3.2-5.0 [facility] Comment on above: Result Comment: NO S PECIMEN RECEIVED Performed By: #### L 500.4050, L501.0900, L100.0100 ####[facility] [address] [place], [address] ALK P Normal 45-117 [facility] Comment on above: Result Comment: NO S PECIMEN RECEIVED Performed By: #### L 500.4050, L501.0900, L100.0100 ####[facility] [address] [place], [address] ALT Normal 13-56 [facility] Comment on above: Result Comment: NO S PECIMEN RECEIVED Performed By: #### L 500.4050, L501.0900, L100.0100 ####[facility] [address] [place], [address] AST Normal 15-37 [facility] Comment on above: Result Comment: NO S PECIMEN RECEIVED Performed By: #### L 500.4050, L501.0900, L100.0100 ####[facility] [address] [place], [address] BUN Normal 7-18 [facility] Comment on above: Result Comment: NO S PECIMEN RECEIVED Performed By: #### L 500.4050, L501.0900, L100.0100 ####[facility] [address] [place], [address] BUN/CRE Normal 10-20 [facility] Comment on above: Result Comment: NO S PECIMEN RECEIVED Performed By: #### L 500.4050, L501.0900, L100.0100 ####[facility] [address] [place], [address] CA,Total Normal 8.5-10.1 [facility] Comment on above: Result Comment: NO S PECIMEN RECEIVED Performed By: #### L 500.4050, L501.0900, L100.0100 ####[facility] [address] [place], [address] CL Normal 98-107 [facility] Comment on above: Result Comment: NO S PECIMEN RECEIVED Performed By: #### L 500.4050, L501.0900, L100.0100 ####[facility] [address] [place], [address] CO2 Normal 21.0-32.0 [facility] Comment on above: Result Comment: NO S PECIMEN RECEIVED Performed By: #### L 500.4050, L501.0900, L100.0100 ####[facility] [address] [place], [address] CREAT,SERUM Normal 0.55-1.02 [facility] Comment on above: Result Comment: NO S PECIMEN RECEIVED Performed By: #### L 500.4050, L501.0900, L100.0100 ####[facility] [address] [place], [address] EST GFR Normal >60 [facility] Comment on above: Result Comment: NO S PECIMEN RECEIVED Performed By: #### L 500.4050, L501.0900, L100.0100 ####[facility] [address] [place], [address] EST GFR - AA Normal >60 [facility] Comment on above: Result Comment: NO S PECIMEN RECEIVED Performed By: #### L 500.4050, L501.0900, L100.0100 ####[facility] [address] [place], [address] GAP Normal 5-15 [facility] Comment on above: Result Comment: NO S PECIMEN RECEIVED Performed By: #### L 500.4050, L501.0900, L100.0100 ####[facility] [address] [place], [address] GLU Normal 74-106 [facility] Comment on above: Result Comment: NO S PECIMEN RECEIVED Performed By: #### L 500.4050, L501.0900, L100.0100 ####[facility] [address] [place], [address] Potassium Normal 3.5-5.1 [facility] Comment on above: Result Comment: NO S PECIMEN RECEIVED Performed By: #### L 500.4050, L501.0900, L100.0100 ####[facility] [address] [place], [address] T BILI Normal 0.20-1.00 [facility] Comment on above: Result Comment: NO S PECIMEN RECEIVED Performed By: #### L 500.4050, L501.0900, L100.0100 ####[facility] [address] [place], [address] T PROT Normal 6.4-8.2 [facility] Comment on above: Result Comment: NO S PECIMEN RECEIVED Performed By: #### L 500.4050, L501.0900, L100.0100 ####[facility] [address] [place], [address] Comprehensive Metabolic Profil Normal 136-145 [facility] Comment on above: Result Comment: NO S PECIMEN RECEIVED Performed By: #### L 500.4050, L501.0900, L100.0100 ####[facility] [address] [place], [address] [employer] [facility] Office Visit Reporton 03-04-2024 Mission Assessment Specialist Office Visit Report Normal [facility] Protein+Creatinine Ratio,Uri neon 03-04-2024 PROT:CRE RATIO 152 mg/g CRE Normal 0-200 [facility] Comment on above: Performed By: #### L 500.4050, L501.0900, L100.0100 ####[facility] [address] [place], [address] Protein (U) [Mass/Vol] 39.2 mg/dL High <11.9 [facility] Comment on above: Performed By: #### L 500.4050, L501.0900, L100.0100 ####[facility] [address] [place], [address] UR CREAT 258.00 mg/dL Normal NO RANGE EST. [facility] Comment on above: Performed By: #### L 500.4050, L501.0900, L100.0100 ####[facility] [address] [place], [address] Culture, urineOrdered By: Ajit Moreno on 10-20-2023 Bacteria identified Cx Nom (U) Culture exhibits no growth. [facility] Gram stain for investigation of transfusion reactionOrdered By: Piedad Moreno on 10-20-2023 Microscopic observation Gram stain Nom (Unsp spec) [facility] - Chemistry and C hemistry - challengeon 10-20-2023 Bilirubin Ql (U) Negative [facility] Glucose Ql (U) Negative [facility] Ketones Ql (U) Small (15+) [facility] pH (U) 5 [pH] [facility] Specific gravity (U) [Rel density] 1.010 [facility] Urobilinogen (U) [Mass/Vol] Negative [facility] - Hematology and Cell countson 10-20-2023 Hemoglobin Ql (U) Negative [facility] - Specimen inform ationon 10-20-2023 Clarity (U) Clear [facility] Color (U) Colorless [facility] - Urinalysison Nitrite Ql (U) Negative [facility] Protein Ql (U) Negative [facility] No Panel InformationOrdered By: Piedad Moreno on 10-20-2023 Genital Culture Presumptive C albicans [facility] No Panel Informationon 10-[address] [facility] Urine Non-Hemolyzed Blood Negative [facility] - Chemistry and C hemistry - challengeon 09-19-2023 Glucose Ql (U) Negative [facility] - Urinalysison Protein Ql (U) Negative [facility] Absolute lymphocyte countOrd ered By: Reina Romero on 09-12-2023 Lymphocytes Auto (Unsp spec) [#/Vol] 1.42 10*3/uL 0.83-4.51 [facility] Automated lymphocyte count a s percentage of total leukocytesOrdered By: Reina Romero on 09-12-2023 Lymphocytes/100 WBC Auto (Unsp spec) 23.9 % 19-41 [facility] Basophil percentageOrdered B y: Reina Romero on 09-12-2023 Basophils/100 WBC (Bld) 0.3 % 0-1 [facility] Bilirubin [Mass/Vol] 0.70 mg/dL 0.20-1.00 [facility] Comment on above: For patients on eltr ombopag therapy, use of Dimension [place]line TBIL is not recommended. Chloride [Moles/Vol] 107 mmol/L 98-107 [facility] Eosinophils/100 WBC (Bld) 2.4 % 0-5 [facility] Glucose [Mass/Vol] 67 mg/dL 74-106 [facility] Hemoglobin (Bld) [Mass/Vol] 12.4 g/dL 12.0-15.0 [facility] Monocytes/100 WBC (Bld) 5.2 % 0-10 [facility] Neutrophils (Bld) [#/Vol] 4.1 10*3/uL 2.0-7.7 [facility] Neutrophils/100 WBC (Bld) 68.0 % 47-70 [facility] Potassium [Moles/Vol] 3.2 mmol/L 3.5-5.1 [facility] Protein [Mass/Vol] 6.9 g/dL 6.4-8.2 [facility] Sodium [Moles/Vol] 139 mmol/L 136-145 [facility] WBC (Bld) [#/Vol] 6.0 10*3/uL 4.4-11.0 [facility] Determination of erythrocyte mean corpuscular volume (MCV)Ordered By: Reina Romero on 09-12-2023 MCV (RBC) [Entitic vol] 87.5 fL 81-99 [facility] Erythrocyte distribution wid th ratioOrdered By: Reina Romero on 09-12-2023 Erythrocyte distribution width (RBC) [Ratio] 12.5 % 11.6-14.6 [facility] Erythrocyte distribution wid th standard deviationOrdered By: Reina Romero on 09-12-2023 Erythrocyte distribution width (RBC) [Entitic vol] 39.5 fL 35.1-43.9 [facility] HIV 1 and HIV-2 antibody ass ay with HIV-1 p24 antigen detectionOrdered By: Reina Romero on 09-12-2023 HIV 1+2 Ab+HIV1 p24 Ag IA Ql Non-Reactive Nonreactive [facility] Hematocrit Auto (Bld) [Volum e fraction]Ordered By: Reina Romero on 09-12-2023 Hematocrit (Bld) [Volume fraction] 35.7 % 37-47 [facility] Immature granulocytes/100 WB C Auto (Bld)Ordered By: Reina Romero on 09-12-2023 Immature granulocytes/100 WBC (Bld) 0.200 % 0.0-0.9 [facility] Comment on above: IG% - Immature Granu locytes (promyelocytes, myelocytes and metamyelocytes) > 1% indicates that a LEFT SHIFT is Present. Laboratory - Chemistry and C hemistry - challengeOrdered By: Reina Romero on 09-12-2023 Albumin/Globulin [Mass ratio] 1.2 {ratio} 0.9-2.4 [facility] ALP [Catalytic activity/Vol] 46 U/L 45-117 [facility] ALT [Catalytic activity/Vol] 15 U/L 13-56 [facility] CO2 [Moles/Vol] 23.0 mmol/L 21.0-32.0 [facility] Globulin (S) [Mass/Vol] 3.2 g/dL 2.2-4.2 [facility] Urea nitrogen/Creatinine [Mass ratio] 16.5 mg/mg 10-20 [facility] Laboratory - Hematology and Cell countsOrdered By: Reina Romero on 09-12-2023 MCH (RBC) [Entitic mass] 30.4 pg 27.0-32.0 [facility] MCHC (RBC) [Mass/Vol] 34.7 g/dL 32-36 [facility] Nucleated RBC/100 WBC (Bld) [Ratio] 0 % 0-5 [facility] Platelet mean volume (Bld) [Entitic vol] 9.3 fL 6.2-12.0 [facility] Platelets (Bld) [#/Vol] 258 10*3/uL 150-450 [facility] No Panel InformationOrdered By: Reina Romero on 09-12-2023 Estimated GFR (MDRD) Amer 145 mL/min >60 [facility] Comment on above: GFR Calc Estimated GFR (MDRD) Non-Af Amer 119 mL/min >60 [facility] Comment on above: Non- GFR Calc Hepatitis B Surface Antigen Non-Reactive Nonreactive [facility] Hepatitis C Antibody Non-Reactive Nonreactive [facility] Comment on above: Non Reactive: < 0.8 Equivocal: >/= 0.8 to < 1.0 Reactive: >/= 1.0The CDC requires that a reactive/equivocal HCV antibody result be sent out for confirmation. HCV Quant by PCR testing. Miscellaneous Test Comment SEE SCANNED REPORT [facility] Rubella IgG Antibody Reactive Nonreactive [facility] Comment on above: Antibody Results Int erpretation of Immune Status Non Reactive Presumed Non-Immune Equivocal Equivocal Reactive Presumed Immune RBC Auto (Bld) [#/Vol]Ordere d By: Reina Romero on 09-12-2023 RBC (Bld) [#/Vol] 4.08 10*6/uL 4.2-5.4 [facility] Serum Treponema species anti body detectionOrdered By: Reina Romero on 09-12-2023 Treponema sp Ab Ql (S) Non-Reactive [facility] Serum or plasma calcium jazmine urement (mass/volume)Ordered By: Reina Romero on 09-12-2023 Calcium [Mass/Vol] 9.2 mg/dL 8.5-10.1 [facility] Serum or plasma creatinine m easurement (mass/volume)Ordered By: Reina Romero on 09-12-2023 Creatinine [Mass/Vol] 0.61 mg/dL 0.55-1.02 [facility] Comment on above: The validity of the calculated GFR & GFRAA in patients over 70 years has not been determined. Clinical correlation is essential. Serum or plasma urea nitroge n measurement (mass/volume)Ordered By: Reina Romero on 09-12-2023 Urea nitrogen [Mass/Vol] 10 mg/dL 7-18 [facility] Thin prep Papanicolaou smear with manual screeningOrdered By: Reina Romero on 09-12-2023 Thin prep Papanicolaou smear with manual screening 3.7 g/dL 3.2-5.0 [facility] Thin prep Papanicolaou smear with manual screening 11 U/L 15-37 [facility] Thin prep Papanicolaou smear with manual screening 9 5-15 [facility] Chlamydia trachomatis rRNA d etection by probe and target amplification methodOrdered By: Reina Romero on 08-21-2023 C. trachomatis rRNA GUCCI+probe Ql (Unsp spec) Negative Negative [facility] Culture, urineOrdered By: Wade Romero on 08-21-2023 Bacteria identified Cx Nom (U) Culture exhibits no growth. [facility] Bacteria identified Cx Nom (U) Culture exhibits no growth. [facility] Laboratory - Microbiology an d Antimicrobial susceptibilityOrdered By: Reina Romero on 08-21-2023 N. gonorrhoeae DNA GUCCI+probe Ql (Unsp spec) Negative Negative [facility] Comment on above: Performed at: =[facility] [address] [id number] Director: Rachel Smallwood MD, Phone: [phone] Thin prep Papanicolaou smear with manual screeningOrdered By: Reina Romero on 08-21-2023 Protein (U) [Mass/Vol] 10.0 mg/dL 0.0-11.8 [facility] Urine creatinine measurement (mass/volume)Ordered By: Reina Romero on 08-21-2023 Creatinine (U) [Mass/Vol] 70.10 mg/dL NO RANGE EST. [facility] Urine protein/creatinine mas s ratioOrdered By: Reina Romero on 08-21-2023 Protein/Creatinine (U) [Mass ratio] 143 mg/g CRE 0-200 [facility] Absolute lymphocyte countOrd ered By: Cholo Smith on 05-26-2023 Lymphocytes Auto (Unsp spec) [#/Vol] 1.71 10*3/uL 0.83-4.51 [facility] Basophil percentageOrdered B y: Cholo Smith on 05-26-2023 Basophils/100 WBC (Bld) 1.1 % 0-1 [facility] Eosinophils/100 WBC (Bld) 3.6 % 0-5 [facility] Neutrophils (Bld) [#/Vol] 2.5 10*3/uL 2.0-7.7 [facility] Neutrophils/100 WBC (Bld) 52.6 % 47-70 [facility] WBC (Bld) [#/Vol] 4.7 10*3/uL 4.4-11.0 [facility] Blood erythrocytes count (nu mber/volume)Ordered By: Cholo Smith on 05-26-2023 RBC (Bld) [#/Vol] 4.24 10*6/uL 4.2-5.4 [facility] Blood hemoglobin measurement (mass/volume)Ordered By: Cholo Smith on 05-26-2023 Hemoglobin (Bld) [Mass/Vol] 13.4 g/dL 12.0-15.0 [facility] Blood lymphocytes/100 leukoc ytesOrdered By: Cholo Smith on 05-26-2023 Lymphocytes/100 WBC (Bld) 36.3 % 19-41 [facility] Blood monocytes/100 leukocyt esOrdered By: Cholo Smith on 05-26-2023 Monocytes/100 WBC (Bld) 6.2 % 0-10 [facility] Blood platelet mean volumeOr dered By: Cholo Smith on 05-26-2023 Platelet mean volume (Bld) [Entitic vol] 9.5 fL 6.2-12.0 [facility] Determination of erythrocyte mean corpuscular volume (MCV)Ordered By: Cholo Smith on 05-26-2023 MCV (RBC) [Entitic vol] 92.0 fL 81-99 [facility] Hematocrit Auto (Bld) [Volum e fraction]Ordered By: Cholo Smith on 05-26-2023 Hematocrit (Bld) [Volume fraction] 39.0 % 37-47 [facility] Iron measurement (mass/mass) Ordered By: Cholo Smith on 05-26-2023 Iron (Unsp spec) [Mass/Mass] 49 ug/dL 50-170 [facility] Laboratory - Hematology and Cell countsOrdered By: Cholo Smith on 05-26-2023 Erythrocyte distribution width (RBC) [Entitic vol] 44.3 fL 35.1-43.9 [facility] Erythrocyte distribution width (RBC) [Ratio] 13.5 % 11.6-14.6 [facility] Immature granulocytes/100 WBC (Bld) 0.200 % 0.0-0.9 [facility] Comment on above: IG% - Immature Granu locytes (promyelocytes, myelocytes and metamyelocytes) > 1% indicates that a LEFT SHIFT is Present. MCH (RBC) [Entitic mass] 31.6 pg 27.0-32.0 [facility] Nucleated RBC/100 WBC (Bld) [Ratio] 0 % 0-5 [facility] MCHC Auto (RBC) [Mass/Vol]Or dered By: Cholo Smith on 05-26-2023 MCHC (RBC) [Mass/Vol] 34.4 g/dL 32-36 [facility] Platelets bldOrdered By: Migdalia Smith on 05-26-2023 Platelets (Bld) [#/Vol] 349 10*3/uL 150-450 [facility] Serum or plasma ferritin esther surement (mass/volume)Ordered By: Cholo Smith on 05-26-2023 Ferritin [Mass/Vol] 11 ng/mL 8-252 [facility] XR Tibia and Fibula - left A P and Lateralon 05-15-2023 IMPRESSION: Negative Endoscopy Nurse: MALOU Transcribe Date/Time: May 15 2023 10:18A Dictated by : JENNI CHINCHILLA MD This examination was interpreted and the report reviewed and electronically signed by: JENNI CHINCHILLA MD on May 15 2023 10:18AM [facility] * * *Final Report* * [...] joint spaces and soft tissues are unremarkable. [facility] Provider, Esther Merritt - 05/15/2023 * * *Final Report* * [...] soft tissues are unremarkable. IMPRESSION IMPRESSION: Negative Endoscopy Nurse: MALOU Transcribe Date/Time: May 15 2023 10:18A Dictated by : JENNI CHINCHILLA MD This examination was interpreted and the report reviewed and electronically signed by: JENNI CHINCHILLA MD on May 15 2023 10:18AM EST [facility] XR Tibia and Fibula - left A P and LateralOrdered By: Ccf Provider on 05-15-2023 [facility] CNOVon 05-12-2023 CNOV Office Visit (ORNA ) AMNDI VALENTE ([id number]) 1990 F Date Time Provider Department 05/12/23 10:30 AM KELLY CALABRESE During your visit today, we recorded the following information about you: Kelly Calabrese PA-C 05/12/2023 2:41 PM Signed Kelly Calabrese PA-C Department of Orthopaedics Orthopaedics [facility] [address] [address] Dept: [phone] May 12, 2023 SUBJECTIVE: CHIEF COMPLAINT: Established [...] acute abnormality. Full imaging report available in [facility]. ASSESSMENT: S86.910J Strain of calf muscle, left, initial encounter [...] Diagnosis:Strain of calf muscle, left, initial encounter [S86.736X] Order(s):CONSULT TO PHYSICAL THERAPY [9032] Order #: [id number]: 1 FUTURE Prescriptions as of 05/12/2023 - [...] trunk: c (more content not included)... Normal [facility] XR TIBIA FIBULA 2V AP/LAT LT on [...] and soft tissues are unremarkable. IMPRESSION: Negative Endoscopy Nurse: MALOU Transcribe Date/Time: May 15 2023 10:18A Dictated by : JENNI CHINCHILLA MD This examination was interpreted and the report reviewed and electronically signed by: JENNI CHINCHILLA MD on May 15 2023 10:18AM EST [id number] Normal [facility] XR Tibia and Fibula - left A P and Lateralon 05-12-2023 Radiology Study observation (narrative) [facility] Absolute lymphocyte countOrd ered By: Nicole Carmelo on 03-22-2023 Lymphocytes Auto (Unsp spec) [#/Vol] 1.76 10*3/uL 0.83-4.51 [facility] Basophil percentageOrdered B y: Nicole Rhodes on 03-22-2023 Basophils/100 WBC (Bld) 0.7 % 0-1 [facility] Bilirubin [Mass/Vol] 0.40 mg/dL 0.20-1.00 [facility] Comment on above: For patients on eltr ombopag therapy, use of Dimension Doyline TBIL is not recommended. Chloride [Moles/Vol] 109 mmol/L 98-107 [facility] Cholesterol [Mass/Vol] 134 mg/dL <200 [facility] Comment on above: <200 mg/dL Desirable 200-240 mg/dL Borderline >240 mg/dL High Risk Eosinophils/100 WBC (Bld) 3.8 % 0-5 [facility] Glucose [Mass/Vol] 81 mg/dL 74-106 [facility] Neutrophils (Bld) [#/Vol] 3.5 10*3/uL 2.0-7.7 [facility] Neutrophils/100 WBC (Bld) 60.1 % 47-70 [facility] Potassium [Moles/Vol] 3.7 mmol/L 3.5-5.1 [facility] Protein [Mass/Vol] 6.9 g/dL 6.4-8.2 [facility] Sodium [Moles/Vol] 140 mmol/L 136-145 [facility] Triglyceride [Mass/Vol] 58 mg/dL <199 [facility] Comment on above: The drugs N-Acetylcy steine and Metamizole may falsely depress this assay.Serum Triglycerides Reference Interval Normal <150 mg/dL Borderline high 150 - 199 mg/dL High 200 - 499 mg/dL Very High > or = 500 mg/dL WBC (Bld) [#/Vol] 5.9 10*3/uL 4.4-11.0 [facility] Blood erythrocytes count (nu mber/volume)Ordered By: Nicole Rhodes on 03-22-2023 RBC (Bld) [#/Vol] 3.98 10*6/uL 4.2-5.4 [facility] Blood hemoglobin measurement (mass/volume)Ordered By: Nicole Rhodes on 03-22-2023 Hemoglobin (Bld) [Mass/Vol] 11.0 g/dL 12.0-15.0 [facility] Blood lymphocytes/100 leukoc ytesOrdered By: Nicole Rhodes on 03-22-2023 Lymphocytes/100 WBC (Bld) 30.1 % 19-41 [facility] Blood monocytes/100 leukocyt esOrdered By: Nicole Rhodes on 03-22-2023 Monocytes/100 WBC (Bld) 4.8 % 0-10 [facility] Blood platelet mean volumeOr dered By: Nicole Rhodes on 03-22-2023 Platelet mean volume (Bld) [Entitic vol] 10.3 fL 6.2-12.0 [facility] Determination of erythrocyte mean corpuscular volume (MCV)Ordered By: Nicole Rhodes on 03-22-2023 MCV (RBC) [Entitic vol] 88.2 fL 81-99 [facility] Hematocrit Auto (Bld) [Volum e fraction]Ordered By: Nicole Rhodes on 03-22-2023 Hematocrit (Bld) [Volume fraction] 35.1 % 37-47 [facility] Iron measurement (mass/mass) Ordered By: Nicole Rhodes on 03-22-2023 Iron (Unsp spec) [Mass/Mass] 33 ug/dL 50-170 [facility] Laboratory - Chemistry and C hemistry - challengeOrdered By: Nicoleelieser Rhodes on 03-22-2023 ALP [Catalytic activity/Vol] 45 U/L 45-117 [facility] ALT [Catalytic activity/Vol] 13 U/L 13-56 [facility] CO2 [Moles/Vol] 28.0 mmol/L 21.0-32.0 [facility] Cobalamin (Vitamin B12) [Mass/Vol] 420 pg/mL 211-911 [facility] Globulin (S) [Mass/Vol] 3.0 g/dL 2.2-4.2 [facility] Urea nitrogen/Creatinine [Mass ratio] 10.5 mg/mg 10-20 [facility] Laboratory - Hematology and Cell countsOrdered By: [place] Carmelo on 03-22-2023 Erythrocyte distribution width (RBC) [Entitic vol] 41.7 fL 35.1-43.9 [facility] Erythrocyte distribution width (RBC) [Ratio] 12.9 % 11.6-14.6 [facility] Immature granulocytes/100 WBC (Bld) 0.500 % 0.0-0.9 [facility] Comment on above: IG% - Immature Granu locytes (promyelocytes, myelocytes and metamyelocytes) > 1% indicates that a LEFT SHIFT is Present. MCH (RBC) [Entitic mass] 27.6 pg 27.0-32.0 [facility] Nucleated RBC/100 WBC (Bld) [Ratio] 0 % 0-5 [facility] MCHC Auto (RBC) [Mass/Vol]Or dered By: Nicole Rhodes on 03-22-2023 MCHC (RBC) [Mass/Vol] 31.3 g/dL 32-36 [facility] No Panel InformationOrdered By: Nicole Rhodes on 03-22-2023 Estimated GFR (MDRD) Amer 111 mL/min >60 [facility] Comment on above: GFR Calc Estimated GFR (MDRD) Non-Af Amer 92 mL/min >60 [facility] Comment on above: Non- GFR Calc Vitamin D 25-Hydroxy 51.8 ng/mL [facility] Comment on above: Vitamin D 25(OH) Sta tus Range Deficiency <20 ng/mL (50nmol/L) Insufficiency 20 - 30 ng/mL (50 - 75 nmol/L) Sufficiency 30 - 100 ng/mL (75 - 250 nmol/L) Toxicity >100 ng/mL (>250 nmol/L) Platelets bldOrdered By: Dory Rhodes on 03-22-2023 Platelets (Bld) [#/Vol] 276 10*3/uL 150-450 [facility] Serum or plasma albumin jazmine urement (mass/volume)Ordered By: Nicole Rhodes on 03-22-2023 Albumin [Mass/Vol] 3.9 g/dL 3.2-5.0 [facility] Serum or plasma albumin/glob ulin mass ratioOrdered By: Nicole Rhodes on 03-22-2023 Albumin/Globulin [Mass ratio] 1.3 {ratio} 0.9-2.4 [facility] Serum or plasma calcium jazmine urement (mass/volume)Ordered By: Nicole Rhodes on 03-22-2023 Calcium [Mass/Vol] 8.8 mg/dL 8.5-10.1 [facility] Serum or plasma cholesterol in HDL measurement (mass/volume)Ordered By: Nicole Rhodes on 03-22-2023 Cholesterol in HDL [Mass/Vol] 52 mg/dL >40 [facility] Comment on above: The drugs N-Acetylcy steine and Metamizole may falsely depress this assay. Reference Range HDL <40 mg/dL Low HDL Cholesterol HDL >or= 60 mg/dL High HDL Cholesterol Serum or plasma cholesterol in VLDL measurement (mass/volume)Ordered By: Nicole Rhodes on 03-22-2023 Cholesterol in VLDL [Mass/Vol] 12 mg/dL 5-40 [facility] Serum or plasma creatinine m easurement (mass/volume)Ordered By: Nicoel Rhodes on 03-22-2023 Creatinine [Mass/Vol] 0.76 mg/dL 0.55-1.02 [facility] Comment on above: The validity of the calculated GFR & GFRAA in patients over 70 years has not been determined. Clinical correlation is essential. Serum or plasma ferritin esther surement (mass/volume)Ordered By: Nicole Rhodes on 03-22-2023 Ferritin [Mass/Vol] 5 ng/mL 8-252 [facility] Serum or plasma low density lipoprotein (LDL) cholesterol measurement (mass/volume)Ordered By: Nicole Rhodes on 03-22-2023 Cholesterol in LDL [Mass/Vol] 70 mg/dL 0-130 [facility] Serum or plasma urea nitroge n measurement (mass/volume)Ordered By: Nicole Rhodes on 03-22-2023 Urea nitrogen [Mass/Vol] 8 mg/dL 7-18 [facility] Thin prep Papanicolaou smear with manual screeningOrdered By: Nicoleelieser Rhodes on 03-22-2023 Thin prep Papanicolaou smear with manual screening 6 U/L 15-37 [facility] Thin prep Papanicolaou smear with manual screening 3 5-15 [facility] Cervical or vagninal specime n microscopic examination by cytology stain (reported asOrdered By: Jenni Coyle on 03-03-2023 Cytology report Cyto stain Doc (Cvx/Vag) Comment . [facility] Comment on above: The Pap smear [...] DNA Probe+sig amp Ql (Cvx) Negative Negative [facility] Comment on above: This nucleic acid am plification test detects fourteen high-risk HPV types (16,18,31,33,35,39,45,51,52,56,58,59,66,68)without differentiation. Laboratory - CytologyOrdered By: Jenni Coyle on 03-03-2023 Invoice Coder Cyto stain Nom (Cvx/Vag) [ID] Comment . [facility] Comment on above: Alexa Person Cyt otechnologist (ASCP) Laboratory - Miscellaneous t estsOrdered By: Jenni Coyle on 03-03-2023 Service comment (Unsp spec) [Interp] Comment . [facility] Comment on above: This liquid based Th inPrep(R) pap test was screened withthe use of an image guided system. Service comment (Unsp spec) [Interp] . . [facility] Liquid-based cerv Pap + CT/G C by GUCCI w reflex to high-risk HPV for ASCUSOrdered By: Jenni Coyle on 03-03-2023 Cytology report Cyto stain.thin prep Doc (Cvx/Vag) Comment . [facility] Comment on above: Criteria not met, HP V Genotype not performed.Performed at: [facility] [id number] [place], [place] [id number] Director: Kamran Banerjee MD, Phone: [phone] at: [facility] [id number] Director: Rachel Smallwood MD, Phone: [phone] at: =[facility] [id number] Director: Rachel Smallwood MD, Phone: [phone] No Panel InformationOrdered By: Jenni Coyle on 03-03-2023 Pathology report final diagnosis Narrative Comment . [facility] Comment on above: NEGATIVE FOR INTRAEP ITHELIAL LESION OR MALIGNANCY. CNOVon 03-01-2023 CNOV Office Visit (ORMDNA ) MANDI VALENTE ([id number]) 1990 F Date Time Provider Department 03/01/23 [...] Date Reviewed: 03/01/2023 Reviewed by: Cathryn Morrell, DO - Fully Assessed Reason for Visit: Pain [78] Follow Up [171] New [[id number]] Primary Visit Diagnosis:Pain of right hip [M25.551] Other Visit D (more content not included)... Normal [facility] XR HIP 3V PELV+ AP/LAT LTon 03-01-2023 [...] pathology. Mild narrowing of both hip joints Endoscopy Nurse: JORGE Transcribe Date/Time: Mar 01 2023 2:33P Dictated by : MONTANA QUIÑONES DO This examination was interpreted and the report reviewed and electronically signed by: MONTANA QUIÑONES DO on Mar 01 2023 2:33PM EST [id number] [facility] XR Pelvis and Hip - left AP and Lateral frogon 03-01-2023 IMPRESSION: No acute pathology. Mild narrowing of both hip joints Endoscopy Nurse: PSCB Transcribe Date/Time: Mar 01 2023 2:33P Dictated by : MONTANA QUIÑONES DO This examination was interpreted and the report reviewed and electronically signed by: MONTANA QUIÑONES DO on Mar 01 2023 2:33PM EST [facility] * * *Final Report* * * [...] hip: No fractures or dislocations are seen. [facility] Provider, Esther Merritt - 03/01/2023 * [...] pathology. Mild narrowing of both hip joints Endoscopy Nurse: [facility] Transcribe Date/Time: Mar 01 2023 2:33P Dictated by : MONTANA QUIÑONES DO This examination was interpreted and the report reviewed and electronically signed by: MONTANA QUIÑONES DO on Mar 01 2023 2:33PM EST [facility] Radiology Study observation (narrative) [facility] XR Pelvis and Hip - left AP and Lateral frogOrdered By: Ccf Provider on 03-01-2023 [facility] Laboratory - Microbiology an d Antimicrobial susceptibilityon 02-18-2023 S. pyogenes Ag IA Ql (Unsp spec) Negative [facility] CNOVon 12-28-2022 CNOV Office Visit (ORMDNA ) MANDI VALENTE ([id number]) 1990 F Date Time Provider Department 12/28/22 9:45 AM CATHRYN MORRELL During your visit today, we recorded the following information about you: Cathryn Morrell, 12/28/2022 1:02 PM Signed Follow Up Visit [...] Morrell D.O. M.P.H. Referring Provider: PIERRE HICKS [[id number]] Allergies As of Date: 12/28/2022 (No Known [...] tablet Take (more content not included)... Normal [facility] CNOVon 11-21-2022 CNOV Office Visit (IVONENA ) MANDI VALENTE ([id number]) 1990 F Date Time Provider Department 11/21/22 [...] Order(s):CONSULT TO PHYSICAL THERAPY [9032] Order #: [id number]: 1 FUTURE Prescriptions as of 11/21/2022 - [...] Encounter Status:Closed [facility] (ORMDNA) MANDI VALENTE ([id number]) 1990 F Date Time Provider Department 11/09/22 [...] have questions, patient can be reached at [phone] Rhonda Sow RN 11/09/2022 2:57 PM Signed [...] Encounter Status:Closed by AVERY ARMANDO on 12/23/22 [facility] ANES POSTPROC EVALon 023 ANES POSTPROC EVAL HNO ID: [id number] Author: August Santizo MD Service: Anesthesiology Author Type: Anesthesiologist Type: Anesthesia Postprocedure Evaluation Filed: 11/08/2022 1:20 PM Note Text: POST ANESTHESIA EVALUATION NOTE : 1990 Procedure Summary Date: 11/08/22 Room / Location: SD OR / SD OR Anesthesia Start: 1111 Anesthesia Stop: 1233 [...] November 08, 2022 TIME: 1:20 PM CSN: [id number] [facility] ANES PRE-OPon 11-08-2022 ANES PRE-OP HNO ID: [id number] Author: August Santizo MD Service: Anesthesiology Author Type: Anesthesiologist Type: Anesthesia Preprocedure Evaluation Filed: 11/08/2022 10:21 AM Note Text: ANESTHESIOLOGY DAY OF SURGERY NOTE : 1990 Procedure Information Date/Time: 11/08/22 1108 Procedure: EXCISION TROCHANTERIC BURSA OR CALCIFICATION (Right: Hip) Location: SD OR02 / SD OR Surgeons: Cathryn Morrell DO Estimated body [...] November 08, 2022 TIME: 10:21 AM CSN: [id number] [facility] OPERATIVE NOon 11-08-2022 OPERATIVE NO HNO ID: [id number] Author: Cathryn Morrell DO Service: Orthopaedic Surgery Author Type: Physician Type: Operative Report Filed: 11/08/2022 1:21 PM Note Text: OPERATIVE/PROCEDURE REPORT LOG ID: [id number] SURGERY/PROCEDURE DATE: 11/08/2022 INCISION/PROCEDURE START TIME: 11:35 AM INCISION CLOSE/PROCEDURE END TIME: 12:18 PM SURGEON(S)/PROCEDURAL IST(S) AND VP SOFTWARE ENGINEERING(S): Surgeon(s) and Role: * Cathryn Morrell DO - Primary Nurse Practitioner: Lisseth Wright APRN.ACTUARY MANAGER Physician Wood Strip Block Floor Installer: Kelly Calabrese PA-C SURGERY/PROCEDURE(S): Right hip arthroscopy, [...] pain numbness ting or further issues arise Dragon disclaimer comment: Please note this report has [...] DATE: November 08, 2022 TIME: 12:47 PM [facility] XR FLUOROSCOPYon 11-08-2022 XR FLUOROSCOPY * * *Final Report* * * DATE OF EXAM: Nov 08 2022 12:15PM [facility] 5513 - XR FLUOROSCOPY / PROCEDURE REASON: [...] Please refer to the performing LIP's report. Endoscopy Nurse: MALOU Transcribe Date/Time: Nov 08 2022 1:56P Dictated by : JENNI CHINCHILLA MD This examination was interpreted and the report reviewed and electronically signed by: JENNI CHINCHILLA MD on Nov 08 2022 1:57PM EST [id number] N [facility] 11-02-2022 [facility] Office Visit (ORMDNA ) MANDI VALENTE ([id number]) 1990 F Date Time Provider Department 11/02/22 [...] Patient's questions (more content not included)... Normal [facility] HISTORY PHYSICALon HISTORY PHYSICAL HNO ID: [id number] Author: Stefany De La Torre PA-C Service: ? Author Type: Physician Wood Strip Block Floor Installer Type: HANDP Filed: 10/31/2022 2:00 PM Note [...] fevers. Neuro: No history of TIA's, stroke, AUXILIARY EQUIPMENT OPERATOR tumor, impaired sensorium, hemiplegia, paraplegia or quadraplegia. No neurological symptoms or problems. Respiratory: No history of current cough or dyspnea, or pneumonia in the past 6 weeks. No history of respiratory/pulmonary symptoms or problems. Cardiovascular: No history of HTN requiring medication, no history of angina, CHF, GA, cardiac surgery or stents. Denies rest pain, gangrene or revascularization/amp utation for PVD. No history of cardiovascular symptoms or problems. GI: No history of GI symptoms or problems. No history of esophageal varices, recent ascites, or ETOH greater than 2 drinks per day. 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 Normal [facility] Basophil percentageOrdered B y: Dr. Smith on 09-07-2022 Basophil percentage 0.2 AI 0.0-0.9 [facility] Basophil percentage 2.6 AI 0.0-0.9 [facility] Erythrocyte sedimentation ra teOrdered By: Dr. Smith on 09-07-2022 ESR (Bld) [Velocity] 4 mm/h 0-30 [facility] No Panel InformationOrdered By: Dr. Smith on 09-07-2022 Anti-Nuclear Antibody Screen Positive Negative [facility] Centromere B Antibody <0.2 AI 0.0-0.9 [facility] ZINC SKIMMER Antibody <0.2 AI 0.0-0.9 [facility] Serum DNA double strand anti body assay (units/volume)Ordered By: Dr. Smith on 09-07-2022 DNA double strand Ab Qn (S) 1 [IU]/mL 0-9 [facility] Comment on above: Negative <5 Equivoca l 5 - 9 Positive >9 Serum Silvia-1 antibody assay (u nits/volume)Ordered By: Dr. Smith on 09-07-2022 Silvia-1 extractable nuclear Ab Qn (S) <0.2 AI 0.0-0.9 [facility] Serum Scl-70 extractable nuc lear antibody assay (units/volume)Ordered By: Dr. Smith on 09-07-2022 SCL-70 extractable nuclear Ab Qn (S) <0.2 AI 0.0-0.9 [facility] Serum Carlson extractable nucl ear antibody detectionOrdered By: Dr. Smith on 09-07-2022 Carlson extractable nuclear Ab Ql (S) <0.2 AI 0.0-0.9 [facility] Serum cyclic citrullinated p eptide IgG antibody assay (units/volume)Ordered By: Dr. Smith on 09-07-2022 Cyclic citrullinated peptide IgG Qn 1 units 0-19 [facility] Comment on above: Negative <20 Weak po sitive 20 - 39 Moderate positive 40 - 59 Strong positive >59Performed at: [place] [id number] Director: Sukhdev Cullen PhD, Phone: [phone] Serum or plasma C reactive p rotein measurement (mass/volume)Ordered By: Dr. Smith on 09-07-2022 CRP [Mass/Vol] mg/L 0.0-3.0 [facility] Comment on above: C-Reactive Protein ( CRP) provides useful information for thediagnosis, therapy and monitoring of inflammatory processesand associated diseases. For the evaluation of Relative Riskfor Cardiovascular Disease, a High Sensitivity CRP (HSCRP)should be ordered. Serum rheumatoid factor dete ctionOrdered By: Dr. Smith on 09-07-2022 Rheumatoid factor Ql (S) < 10.0 IU/mL <15 [facility] CNOVon 08-18-2022 CNOV Office Visit (ORTHWS ) MANDI VALENTE ([id number]) 1990 F Date Time Provider Department 08/18/22 [...] Known Allergies) Date Reviewed: 08/18/2022 Reviewed by: Vianca Chicorelli, DO - Fully Assessed Reason for Visit: Established Patient [175] Follow Up [171] Primary Visit Diagnosis:Trochanteri c bursitis of right hip [M70.61] Order(s):MRI HIP WO IVCON RT [[id number]] Order #: [id number] FUTURE Prescriptions as of 08/18/2022 - meloxicam (MOBIC) 15 mg tablet Take 15 mg by mouth once daily. - oxyCODONE-acetaminoph en (PERCOCET) 5-325 mg tablet Take 1 tablet b (more content not included)... Normal [facility] COVID-19 virus antigen assay Ordered By: Dr. Ott on 07-13-2022 SARS-CoV-2 (COVID-19) Ag IA.rapid Ql (Resp) [facility] - Microbiology an d Antimicrobial susceptibilityon 07-13-2022 SARS-CoV-2 (COVID-19) RNA GUCCI+probe Ql (Unsp spec) Not detected [facility] XR Pelvis and Hip - right AP and Lateral frogon 07-07-2022 IMPRESSION: Mild narrowing both hip joints Endoscopy Nurse: MALOU Transcribe Date/Time: Jul 07 2022 8:05A Dictated by : MONTANA QUIÑONES DO This examination was interpreted and the report reviewed and electronically signed by: MONTANA QUIÑONES DO on Jul 07 2022 8:06AM [facility] * * *Final Report* * [...] hip: No fractures or dislocations are seen. [facility] Provider, Esther Magallanes [facility] - 07/07/2022 * * *Final Report* * [...] IMPRESSION IMPRESSION: Mild narrowing both hip joints Endoscopy Nurse: PSCB Transcribe Date/Time: Jul 07 2022 8:05A Dictated by : MONTANA QUIÑONES DO This examination was interpreted and the report reviewed and electronically signed by: MONTANA QUIÑONES DO on Jul 07 2022 8:06AM EST [facility] XR Pelvis and Hip - right AP and Lateral frogOrdered By: Ccjustice Provider on 07-07-2022 [facility] CNOVon 07-06-2022 CNOV Office Visit (ORMDNA ) MANDI VALENTE ([id number]) 1990 F Date Time Provider Department 07/06/22 1:00 PM CATHRYN MORRELL During your visit today, we recorded the following information about you: Cathryn Morrell DO 07/06/2022 2:47 PM Signed Large Joint Arthro/Inj: R greater trochanteric bursa Informed Consent Consent Obtained: Verbal [place] Protocol A moment to CARE was completed. [...] Burning;Throbbing;Rad iating Frequency: Continuous Intervention/Comfort measure: Medication;Exercise tamy, RORY Comments: PT currently HPI: Mandi Valente [...] patient is (more content not included)... Normal [facility] XR HIP 3V PELV+ AP/LAT RTon 07-06-2022 [...] seen. IMPRESSION: Mild narrowing both hip joints Endoscopy Nurse: MALOU Transcribe Date/Time: Jul 07 2022 8:05A Dictated by : MONTANA QUIÑONES DO This examination was interpreted and the report reviewed and electronically signed by: MONTANA QUIÑONES DO on Jul 07 2022 8:06AM EST [id number] [facility] XR Pelvis and Hip - right AP and Lateral frogon 07-06-2022 Radiology Study observation (narrative) [facility] US DVT LOWER RTon 02-28-2022 [facility] XR HIP GENERAL 3V PELV/AP/LA T RIGHTon 12-08-2021 [facility] HIV 1 and HIV-2 antibody ass ay with HIV-1 p24 antigen detectionon 10-04-2021 HIV 1+2 Ab+HIV1 p24 Ag IA Ql Non-Reactive Nonreactive [facility] Work Phone: No Panel Informationon 10-04 Hepatitis B Surface Antigen Non-Reactive Nonreactive [facility] Work Phone: Hepatitis C Antibody Non-Reactive Nonreactive [facility] Work Phone: Comment on above: Non Reactive: < 0.8 Equivocal: >/= 0.8 to < 1.0 Reactive: >/= 1.0The CDC recommends that a reactive/equivocal HCV antibody result be followed up by the HCV Nucleic Acid Amplificationtest ([id number]) Miscellaneous Test See comment [facility] Work Phone: Comment on above: TEST RESULT LIMITSCt , Ng, Trich vag by UGCCI Chlamydia by GUCCI Negative Negative Gonococcus by GUCCI Negative Negative Trich vag by GUCCI Negative Negative ____ TESTING PERFORMED AT [facility]. ORIGINAL REPORT ON FILE IN LAB CONTAINS ADDITIONAL TEST SITE INFORMATION. Serum Treponema species anti body detectionon 10-04-2021 Treponema sp Ab Ql (S) Non-Reactive [facility] Work Phone: Large Joint Arthro/Inj: R gr eater trochanteric bursa [facility] Vital Signs Date Time Vital Sign Value Performing Clinician Facility 02-27-2025 14:54-0400 Body height 157.[address] Cholo Smith DO Work Phone: [facility] 02-27-2025 14:54-0400 Body mass index (BMI) [Ratio] 40.1 kg/m2 Dr. Cholo Smith DO Work Phone: [facility] 02-27-2025 14:54-0400 Body weight 99.[address] Cholo Smith DO Work Phone: [facility] 02-27-2025 14:54-0400 Diastolic blood pressure 80 mm[Hg] Dr. Cholo Smith DO Work Phone: [facility] 02-27-2025 14:54-0400 Systolic blood pressure 133 mm[Hg] Dr. Cholo Smith DO Work Phone: [facility] 02-18-2025 14:41-0400 Body weight 97.[address] Cholo Smith DO Work Phone: [facility] 02-18-2025 14:41-0400 Diastolic blood pressure 84 mm[Hg] Dr. Cholo Smith DO Work Phone: [facility] 02-18-2025 14:41-0400 Systolic blood pressure 128 mm[Hg] Dr. Cholo Smith DO Work Phone: [facility] 02-18-2025 14:28-0400 Body height 157.[address] Cholo Smith DO Work Phone: [facility] 02-14-2025 23:29-0400 Body temperature 98 [degF] Dr. Cholo Smith DO Work Phone: [facility] 02-14-2025 23:29-0400 Diastolic blood pressure 68 mm[Hg] Dr. Cholo Smith DO Work Phone: [facility] 02-14-2025 23:29-0400 Heart rate 70 /min Dr. Cholo Smith DO Work Phone: [facility] 02-14-2025 23:29-0400 Respiratory rate 16 /min Dr. Cholo Smith DO Work Phone: [facility] 02-14-2025 23:29-0400 Systolic blood pressure 119 mm[Hg] Dr. Cholo Smith DO Work Phone: [facility] 02-14-2025 21:49-0400 Body height 157.[address] Cholo Smith DO Work Phone: [facility] 02-14-2025 21:49-0400 Body mass index (BMI) [Ratio] 39.9 kg/m2 Dr. Cholo Smith DO Work Phone: [facility] 02-14-2025 21:49-0400 Body weight 99.[address] Cholo Smith DO Work Phone: [facility] 02-13-2025 16:08-0400 Body height 157.[address] Cholo Smith DO Work Phone: [facility] 02-13-2025 16:08-0400 Body mass index (BMI) [Ratio] 39.9 kg/m2 Dr. Cholo Smith DO Work Phone: [facility] 02-13-2025 16:08-0400 Body weight 99.[address] Cholo Smith DO Work Phone: [facility] 02-13-2025 16:08-0400 Diastolic blood pressure 82 mm[Hg] Dr. Cholo Smith DO Work Phone: [facility] 02-13-2025 16:08-0400 Systolic blood pressure 120 mm[Hg] Dr. Cholo Smith DO Work Phone: [facility] 02-07-2025 14:35-0400 Diastolic blood pressure 67 mm[Hg] Dr. Cholo Smith DO Work Phone: [facility] 02-07-2025 14:35-0400 Heart rate 90 /min Dr. Cholo Smith DO Work Phone: [facility] 02-07-2025 14:35-0400 Systolic blood pressure 121 mm[Hg] Dr. Cholo Smith DO Work Phone: [facility] 02-07-2025 12:21-0400 Body height 157.[address] Cholo Smith DO Work Phone: [facility] 02-07-2025 12:21-0400 Body mass index (BMI) [Ratio] 39.6 kg/m2 Dr. Cholo Smith DO Work Phone: [facility] 02-07-2025 12:21-0400 Body weight 98.[address] Cholo Smith DO Work Phone: [facility] 02-07-2025 12:18-0400 Body temperature 96.7 [degF] Dr. Cholo Smith DO Work Phone: [facility] 02-07-2025 12:18-0400 Respiratory rate 18 /min Dr. Cholo Smith DO Work Phone: [facility] 01-29-2025 09:58-0400 Body height 157.[address] Cholo Smith DO Work Phone: [facility] 01-29-2025 09:57-0400 Body mass index (BMI) [Ratio] 39.7 kg/m2 Dr. Cholo Smith DO Work Phone: [facility] 01-29-2025 09:57-0400 Body weight 98.[address] Cholo Smith DO Work Phone: [facility] 01-29-2025 09:57-0400 Diastolic blood pressure 78 mm[Hg] Dr. Cholo Smith DO Work Phone: [facility] 01-29-2025 09:57-0400 Systolic blood pressure 129 mm[Hg] Dr. Cholo Smith DO Work Phone: [facility] 01-13-2025 10:45-0400 Body height 157.[address] Cholo Smith DO Work Phone: [facility] 01-13-2025 10:45-0400 Body mass index (BMI) [Ratio] 39.4 kg/m2 Dr. Cholo Smith DO Work Phone: [facility] 01-13-2025 10:45-0400 Body weight 97.[address] Cholo Smith DO Work Phone: [facility] 01-13-2025 10:45-0400 Diastolic blood pressure 87 mm[Hg] Dr. Cholo Smith DO Work Phone: [facility] 01-13-2025 10:45-0400 Systolic blood pressure 126 mm[Hg] Dr. Cholo Smith DO Work Phone: [facility] 01-03-2025 15:03-0400 Body height 157.[address] Cholo Smith DO Work Phone: [facility] 01-03-2025 15:03-0400 Body mass index (BMI) [Ratio] 38.6 kg/m2 Dr. Cholo Smith DO Work Phone: [facility] 01-03-2025 15:03-0400 Body weight 95.[address] Cholo Smith DO Work Phone: [facility] 01-03-2025 15:03-0400 Diastolic blood pressure 82 mm[Hg] Dr. Cholo Smith DO Work Phone: [facility] 01-03-2025 15:03-0400 Systolic blood pressure 138 mm[Hg] Dr. Cholo Smith DO Work Phone: [facility] 12-04-2024 14:55-0400 Body height 157.[address] Cholo Smith DO Work Phone: [facility] 12-04-2024 14:55-0400 Body mass index (BMI) [Ratio] 38.5 kg/m2 Dr. Cholo Smith DO Work Phone: [facility] 12-04-2024 14:55-0400 Body weight 95.[address] Cholo Smith DO Work Phone: [facility] 12-04-2024 14:55-0400 Diastolic blood pressure 77 mm[Hg] Dr. Cholo Smith DO Work Phone: [facility] 12-04-2024 14:55-0400 Systolic blood pressure 130 mm[Hg] Dr. Cholo Smith DO Work Phone: [facility] 11-07-2024 09:36-0400 Body mass index (BMI) [Ratio] 37.5 kg/m2 Dr. Cholo Smith DO Work Phone: [facility] 11-07-2024 09:36-0400 Body weight 93.[address] Cholo Smith DO Work Phone: [facility] 11-07-2024 09:36-0400 Diastolic blood pressure 77 mm[Hg] Dr. Cholo Smith DO Work Phone: [facility] 11-07-2024 09:36-0400 Systolic blood pressure 117 mm[Hg] Dr. Cholo Smith DO Work Phone: [facility] 10-15-2024 12:47-0400 Body height 157.[address] Cholo Smtih DO Work Phone: [facility] 10-15-2024 12:47-0400 Body mass index (BMI) [Ratio] 36.6 kg/m2 Dr. Cholo Smith DO Work Phone: [facility] 10-15-2024 12:47-0400 Body weight 90.[address] Cholo Smith DO Work Phone: [facility] 10-15-2024 12:47-0400 Diastolic blood pressure 86 mm[Hg] Dr. Cholo Smith DO Work Phone: [facility] 10-15-2024 12:47-0400 Systolic blood pressure 136 mm[Hg] Dr. Cholo Smith DO Work Phone: [facility] 10-12-2024 00:51-0400 Body temperature 98.5 [degF] Dr. Cholo Smith DO Work Phone: [facility] 10-12-2024 00:51-0400 Diastolic blood pressure 72 mm[Hg] Dr. Cholo Smith DO Work Phone: [facility] 10-12-2024 00:51-0400 Heart rate 85 /min Dr. Cholo Smith DO Work Phone: [facility] 10-12-2024 00:51-0400 Respiratory rate 18 /min Dr. Cholo Smith DO Work Phone: [facility] 10-12-2024 00:51-0400 SaO2% (BldA) [Mass fraction] 99 % Dr. Cholo Smith DO Work Phone: [facility] 10-12-2024 00:51-0400 Systolic blood pressure 132 mm[Hg] Dr. Cholo Smith DO Work Phone: [facility] 10-11-2024 21:50-0400 Body mass index (BMI) [Ratio] 37.6 kg/m2 Dr. Cholo Smith DO Work Phone: [facility] 10-11-2024 21:50-0400 Body weight 93.[address] Cholo Smith DO Work Phone: [facility] 10-07-2024 13:55-0400 Body mass index (BMI) [Ratio] 36.6 kg/m2 Dr. Cholo Smith DO Work Phone: [facility] 10-07-2024 13:55-0400 Body weight 90.[address] Cholo Smith DO Work Phone: [facility] 10-07-2024 13:55-0400 Diastolic blood pressure 85 mm[Hg] Dr. Cholo Smith DO Work Phone: [facility] 10-07-2024 13:55-0400 Systolic blood pressure 138 mm[Hg] Dr. Cholo Smith DO Work Phone: [facility] 09-10-2024 14:53-0500 Body height 157.[address] Cholo Smith DO Work Phone: [facility] 09-10-2024 14:53-0500 Body mass index (BMI) [Ratio] 35.9 kg/m2 Dr. Cholo Smith DO Work Phone: [facility] 09-10-2024 14:53-0500 Body weight 88.[address] Cholo Smith DO Work Phone: [facility] 09-10-2024 14:53-0500 Diastolic blood pressure 85 mm[Hg] Dr. Cholo Smith DO Work Phone: [facility] 09-10-2024 14:53-0500 Systolic blood pressure 136 mm[Hg] Dr. Cholo Smith DO Work Phone: [facility] 08-26-2024 12:56-0500 Body mass index (BMI) [Ratio] 35.5 kg/m2 Dr. Cholo Smith DO Work Phone: [facility] 08-26-2024 12:56-0500 Body weight 88.[address] Cholo Smith DO Work Phone: [facility] 08-26-2024 12:56-0500 Diastolic blood pressure 89 mm[Hg] Dr. Cholo Smith DO Work Phone: [facility] 08-26-2024 12:56-0500 Systolic blood pressure 137 mm[Hg] Dr. Cholo Smith DO Work Phone: [facility] 08-13-2024 15:09-0500 Body mass index (BMI) [Ratio] 35.4 kg/m2 Dr. Cholo Smith DO Work Phone: [facility] 08-13-2024 15:09-0500 Body weight 87.[address] Cholo Smith DO Work Phone: [facility] 08-13-2024 15:09-0500 Diastolic blood pressure 84 mm[Hg] Dr. Cholo Smith DO Work Phone: [facility] 08-13-2024 15:09-0500 Systolic blood pressure 139 mm[Hg] Dr. Cholo Smith DO Work Phone: [facility] 06-26-2024 12:56-0500 Body mass index (BMI) [Ratio] 34.9 kg/m2 Dr. Cholo Smith DO Work Phone: [facility] 06-26-2024 12:56-0500 Body weight 86.[address] Cholo Smith DO Work Phone: [facility] 06-26-2024 12:56-0500 Diastolic blood pressure 90 mm[Hg] Dr. Cholo Smith DO Work Phone: [facility] 06-26-2024 12:56-0500 Systolic blood pressure 147 mm[Hg] Dr. Cholo Smith DO Work Phone: [facility] 06-24-2024 09:28-0500 Body weight 87.[address] Cholo Smith DO Work Phone: [facility] 06-24-2024 09:28-0500 Diastolic blood pressure 89 mm[Hg] Dr. Cholo Smith DO Work Phone: [facility] 06-24-2024 09:28-0500 Heart rate 67 /min Dr. Cholo Smith DO Work Phone: [facility] 06-24-2024 09:28-0500 Respiratory rate 16 /min Dr. Cholo Smith DO Work Phone: [facility] 06-24-2024 09:28-0500 SaO2% (BldA) [Mass fraction] 98 % Dr. Cholo Smith DO Work Phone: [facility] 06-24-2024 09:28-0500 Systolic blood pressure 157 mm[Hg] Dr. Cholo Smith DO Work Phone: [facility] 06-11-2024 13:55-0500 Body temperature 97.5 [degF] Dr. Cholo Smith DO Work Phone: [facility] 06-11-2024 13:55-0500 Diastolic blood pressure 94 mm[Hg] Dr. Cholo Smith DO Work Phone: [facility] 06-11-2024 13:55-0500 Heart rate 78 /min Dr. Cholo Smith DO Work Phone: [facility] 06-11-2024 13:55-0500 Respiratory rate 16 /min Dr. Cholo Smith DO Work Phone: [facility] 06-11-2024 13:55-0500 SaO2% (BldA) [Mass fraction] 97 % Dr. Cholo Smith DO Work Phone: [facility] 06-11-2024 13:55-0500 Systolic blood pressure 138 mm[Hg] Dr. Cholo Smith DO Work Phone: [facility] 06-11-2024 11:18-0500 Body mass index (BMI) [Ratio] 34.7 kg/m2 Dr. Cholo Smith DO Work Phone: [facility] 06-11-2024 11:18-0500 Body weight [address] Cholo Smith DO Work Phone: [facility] 10-20-2023 14:52-0400 Body height 157.[address] Cholo Smith Work Phone: [facility] 10-20-2023 14:52-0400 Diastolic blood pressure 80 mm[Hg] Dr. Cholo Smith Work Phone: [facility] 10-20-2023 14:52-0400 Systolic blood pressure 139 mm[Hg] Dr. Cholo Smith Work Phone: [facility] 10-20-2023 14:47-0400 Body mass index (BMI) [Ratio] 34.7 kg/m2 Dr. Chool Smith Work Phone: [facility] 10-20-2023 14:47-0400 Body weight 86.[address] Cholo Smith Work Phone: [facility] 09-19-2023 10:01-0400 Body mass index (BMI) [Ratio] 33.3 kg/m2 Dr. Cholo Smith Work Phone: [facility] 09-19-2023 10:01-0400 Body weight 82.[address] Cholo Smith Work Phone: [facility] 09-19-2023 10:01-0400 Diastolic blood pressure 80 mm[Hg] Dr. Cholo Smith Work Phone: [facility] 09-19-2023 10:01-0400 Systolic blood pressure 141 mm[Hg] Dr. Cholo Smith Work Phone: [facility] 08-21-2023 14:43-0500 Body height 157.[address] Cholo Smith Work Phone: [facility] 08-21-2023 14:43-0500 Body mass index (BMI) [Ratio] 31.8 kg/m2 Dr. Cholo Smith Work Phone: [facility] 08-21-2023 14:43-0500 Body weight 78.[address] Cholo Smith Work Phone: [facility] 08-21-2023 14:43-0500 Diastolic blood pressure 84 mm[Hg] Dr. Cholo Smith Work Phone: [facility] 08-21-2023 14:43-0500 Systolic blood pressure 126 mm[Hg] Dr. Cholo Smith Work Phone: [facility] 05-30-2023 09:47-0500 Diastolic blood pressure 86 mm[Hg] Dr. Cholo Smith Work Phone: [facility] 05-30-2023 09:47-0500 Systolic blood pressure 138 mm[Hg] Dr. Cholo Smith Work Phone: [facility] 05-30-2023 09:34-0500 Body height 157.[address] Cholo Smith Work Phone: [facility] 05-30-2023 09:34-0500 Body mass index (BMI) [Ratio] 29.2 kg/m2 Dr. Cholo Smith Work Phone: [facility] 05-30-2023 09:34-0500 Body temperature 98.2 [degF] Dr. Cholo Smith Work Phone: [facility] 05-30-2023 09:34-0500 Body weight 72.[address] Cholo Smith Work Phone: [facility] 05-30-2023 09:34-0500 Heart rate 112 /min Dr. Cholo Smith Work Phone: [facility] 05-30-2023 09:34-0500 Respiratory rate 16 /min Dr. Cholo Smith Work Phone: [facility] 05-30-2023 09:34-0500 SaO2% (BldA) [Mass fraction] 98 % Dr. Cholo Smith Work Phone: [facility] 02-18-2023 09:46-0400 Body height 157.[address] Cholo Smith Work Phone: [facility] 02-18-2023 09:46-0400 Body mass index (BMI) [Ratio] 27.4 kg/m2 Dr. Cholo Smith Work Phone: [facility] 02-18-2023 09:46-0400 Body temperature 98.6 [degF] Dr. Cholo Smith Work Phone: [facility] 02-18-2023 09:46-0400 Body weight 68.[address] Cholo Smith Work Phone: [facility] 02-18-2023 09:46-0400 Diastolic blood pressure 85 mm[Hg] Dr. Cholo Smith Work Phone: [facility] 02-18-2023 09:46-0400 Heart rate 70 /min Dr. Cholo Smith Work Phone: [facility] 02-18-2023 09:46-0400 Respiratory rate 16 /min Dr. Cholo Smith Work Phone: [facility] 02-18-2023 09:46-0400 SaO2% (BldA) [Mass fraction] 97 % Dr. Cholo Smith Work Phone: [facility] 02-18-2023 09:46-0400 Systolic blood pressure 120 mm[Hg] Dr. Cholo Smith Work Phone: [facility] 12-08-2022 11:00-0400 Body temperature 98.6 [degF] Dr. Cholo Smith Work Phone: [facility] 12-08-2022 11:00-0400 Diastolic blood pressure 91 mm[Hg] Dr. Cholo Smith Work Phone: [facility] 12-08-2022 11:00-0400 Heart rate 69 /min Dr. Cholo Smith Work Phone: [facility] 12-08-2022 11:00-0400 Respiratory rate 16 /min Dr. Cholo Smith Work Phone: [facility] 12-08-2022 11:00-0400 SaO2% (BldA) [Mass fraction] 100 % Dr. Cholo Smith Work Phone: [facility] 12-08-2022 11:00-0400 Systolic blood pressure 132 mm[Hg] Dr. Cholo Smith Work Phone: [facility] 12-08-2022 08:41-0400 Body height 157.[address] Cholo Smith Work Phone: [facility] 12-08-2022 08:41-0400 Body mass index (BMI) [Ratio] 29.5 kg/m2 Dr. Cholo Smith Work Phone: [facility] 12-08-2022 08:41-0400 Body weight 73.[address] Cholo Smith Work Phone: [facility] 10-28-2022 11:11-0400 Body height 157.5 cm Pacc 1 Work Phone: [facility] 10-28-2022 11:11-0400 Body temperature 97.81 [degF] Pacc 1 Work Phone: [facility] 10-28-2022 11:11-0400 Body weight 78.47 kg Pacc 1 Work Phone: [facility] 10-28-2022 11:11-0400 Diastolic blood pressure 84 mm[Hg] Pacc 1 Work Phone: [facility] 10-28-2022 11:11-0400 Heart rate 79 /min Pacc 1 Work Phone: [facility] 10-28-2022 11:11-0400 Respiratory rate 16 /min Pacc 1 Work Phone: [facility] 10-28-2022 11:11-0400 SaO2% (BldA) [Mass fraction] 99 % Pacc 1 Work Phone: [place] [address]-21-2023 11:11-0400 Systolic blood pressure 138 mm[Hg] Pacc 1 Work Phone: [facility] 10-08-2022 12:52-0400 Body temperature 97.3 [degF] Dr[facility] Cholo Smith [facility] [facility] 10-08-2022 12:52-0400 Diastolic blood pressure 68 mm[Hg] Dr. Cholo Smith Work Phone: [facility] 10-08-2022 12:52-0400 Heart rate 97 /min Dr. Cholo Smith Work Phone: [facility] 10-08-2022 12:52-0400 Respiratory rate 14 /min Dr. Cholo Smith Work Phone: [facility] 10-08-2022 12:52-0400 SaO2% (BldA) [Mass fraction] 98 % Dr. Cholo Smith Work Phone: [facility] 10-08-2022 12:52-0400 Systolic blood pressure 110 mm[Hg] Dr. Cholo Smith Work Phone: [facility] 09-01-2021 11:13-0500 Body height 157.[address] Cholo Smith Work Phone: [facility] Encounters Encounter Date Encounter Type Care Provider Facility Start: 05-20-2025 ambulatory Cholo Smith Facility: [facility] Start: 02-27-2025 End: 02-27-2025 ambulatory Cholo Smith Facility:[facility] Start: 02-27-2025 End: 02-27-[address] Piedad Moreno MD -[facility] Work Phone: Start: 02-20-2025 End: 02-20-2025 ambulatory REINA DIAZ [place] [facility] Start: 02-18-2025 End: 02-18-[address] Cholo Smith DO Work Phone: -Laboratory Specimen Start: 02-18-2025 End: 02-18-[address] Piedad Moreno MD -Laboratory Specimen Work Phone: Start: 02-18-2025 End: 02-18-[address] Piedad Moreno MD -[facility] Work Phone: Start: 02-18-2025 End: 02-18-[address] Cholo Smith DO Work Phone: -[facility] Start: 02-18-2025 End: 02-18-2025 ambulatory Cholo Smith Facility:[facility] Start: 02-14-2025 ambulatory Cholo Smith Facility: [facility] Start: 02-14-2025 Non-patient / [facility] Start: 02-14-2025 End: 02-14-[address] Cholo Smith DO Work Phone: -[facility] Start: 02-14-2025 End: 02-14-2025 Patient encounter procedure [facility] Work Phone: Start: 02-13-2025 End: 02-13-[address] Reina Rashid DO -[facility] Work Phone: Start: 02-13-2025 End: 02-13-[address] Cholo Smith DO Work Phone: -[facility] Start: 02-13-2025 End: 02-13-2025 ambulatory REINA GARCIA [facility] Start: 02-07-2025 ambulatory Linda Garza y:[facility] Start: 02-07-2025 Non-patient / [facility]visit [facility] Start: 02-07-2025 End: 02-07-[address] Cholo Smith DO Work Phone: -[facility] Start: 02-07-2025 End: 02-07-2025 Patient encounter procedure Linda Hammond CNM -[facility] Work Phone: Start: 02-05-2025 End: 02-05-[address] Cholo Smith DO Work Phone: -Lab [facility] Start: 02-05-2025 End: 02-05-2025 Patient encounter procedure Danya Simpson [employer]-C -Lab [facility] Start: 02-05-2025 End: 02-05-2025 ambulatory Danya Trantings [employer] Facility:[facility] Start: 01-30-2025 End: 01-30-2025 ambulatory REINA GARCIA [facility] Start: 01-29-2025 End: 01-29-[address] Reina Rashid DO -[facility] Work Phone: Start: 01-29-2025 End: 01-29-[address] Cholo Smith DO Work Phone: -[facility] Start: 01-14-2025 End: 01-14-[address] Cholo mSith DO Work Phone: -Laboratory Start: 01-14-2025 End: 01-14-2025 Patient encounter procedure Suyapa Godinez CNM -Laboratory Work Phone: Start: 01-13-2025 End: 01-13-2025 Patient encounter procedure Suyapa Godinez CNM -[facility] Work Phone: Start: 01-13-2025 End: 01-14-[address] Cholo Smith DO Work Phone: -[facility] Start: 01-03-2025 End: 01-03-[address] Reina Rashid DO -[facility] Work Phone: Start: 01-03-2025 End: 01-03-[address] Cholo Smith DO Work Phone: -[facility] Start: 12-30-2024 End: 12-30-2024 ambulatory REINA GARCIA [facility] Start: 12-26-2024 End: 12-26-[address] Cholo Smith DO Work Phone: -[facility]atory [facility] Start: 12-26-2024 End: 12-26-[address] Reina Rashid DO -[facility] Start: 12-26-2024 End: 12-26-2024 ambulatory Reina Rashid Facility:[facility] Start: 12-04-2024 End: 12-04-[address] Reina Rashid DO -[facility] Work Phone: Start: 12-04-2024 End: 12-04-[address] Cholo Smith DO Work Phone: [facility] Work Phone: Start: 12-03-2024 End: 12-03-2024 ambulatory PURA KENDALL [facility] Start: 11-18-2024 End: 11-18-2024 ambulatory KONRAD MAS [facility] Start: 11-07-2024 End: 11-07-[address] Piedad Moreno MD -[facility] Work Phone: Start: 11-07-2024 End: 11-07-2024 ambulatory Cholo Smith Facility:[facility] Start: 10-31-2024 End: 10-31-2024 ambulatory BRIANNE MULLINS [facility] Start: 10-15-2024 End: 10-15-[address] Cholo Smith DO Work Phone: [facility] Work Phone: Start: 10-15-2024 End: 10-15-[address] Piedad Moreno MD -Laboratory, Specimen Work Phone: Start: 10-15-2024 End: 10-15-[address] Piedad Moreno MD -[facility] Work Phone: Start: 10-15-2024 End: 10-15-2024 ambulatory [facility] Facility:[facility] Start: 10-15-2024 End: 10-15-2024 ambulatory Piedad Moreno Facility:[facility] Start: 10-11-2024 End: 10-12-2024 Emergency department patient visit Dr. Mary Jane Wade DO -Emergency Department Work Phone: Start: 10-07-2024 End: 10-07-2024 Patient encounter procedure Suyapa Godinez CNM -[facility] Work Phone: Start: 10-07-2024 End: 10-07-2024 ambulatory [facility] Facility:[facility] Start: 09-10-2024 End: 09-10-[address] Reina Rashid DO -[facility] Work Phone: Start: 09-10-2024 End: 09-10-[address] Cholo Smith DO Work Phone: [facility] Work Phone: Start: 09-10-2024 End: 09-10-2024 ambulatory Reina Rashid Facility:[facility] Start: 08-26-2024 End: 08-26-2024 Patient encounter procedure Suyapa Godinez CNM -[facility] Work Phone: Start: 08-26-2024 End: 08-26-2024 ambulatory [facility] Facility:[facility] Start: 08-19-2024 Encounter for other preprocedural examination Elijah Soni [facility] Start: 08-13-2024 End: 08-13-[address] Reina Rashid DO -Laboratory, Specimen Work Phone: Start: 08-13-2024 End: 08-13-[address] Reina Rashid DO -[facility] Work Phone: Start: 08-13-2024 End: 08-13-2024 ambulatory Cholo [facility] Facility:[facility] Start: 08-13-2024 End: 08-13-2024 ambulatory Reina Rashid Facility:[facility] Start: 08-05-2024 ambulatory Elijah Shafer Facility :[facility] Start: 07-08-2024 End: 07-08-2024 Patient encounter procedure Elijah Shafer DO -[facility] Work Phone: Start: 07-08-2024 End: 07-08-2024 ambulatory Cholo [facility] Facility:[facility] Start: 06-26-2024 End: 06-26-2024 Patient encounter procedure Ivett HOFF -Laboratory, Specimen Work Phone: Start: 06-26-2024 End: 06-26-2024 Patient encounter procedure Ivett PORRASC -[facility] Work Phone: Start: 06-26-2024 End: 06-26-2024 ambulatory Cholo [facility] Facility:[facility] Start: 06-26-2024 End: 06-26-2024 ambulatory Ivett Marquez Facility:[facility] Start: 06-24-2024 End: 06-24-2024 Patient encounter procedure Reina Varela NP-C -[facility] Work Phone: Start: 06-24-2024 End: 06-24-2024 ambulatory Cholo BrysonSarah Facility:[facility] Start: 06-11-2024 ambulatory Cholo Sarah Facility: [facility] Start: 06-11-2024 Non-patient / Non-visit Elijah Shafer DO -[facility] Start: 06-11-2024 End: 06-11-2024 Admission to same day surgery center Elijah Shafer DO -Endoscopy Work Phone: Start: 06-11-2024 End: 06-11-2024 ambulatory [facility] Facility:[facility] Start: 05-27-[address] Keiry Rashid DO -Physical Therapy Work Phone: Start: 05-27-2024 End: 05-27-2024 ambulatory Cholo Smith Facility:[facility] Start: 05-10-2024 End: 05-10-2024 ambulatory Cholo Smith [facility] Start: 05-10-2024 End: 05-10-2024 ambulatory Lisseth Jackson Facility:[facility] Start: 04-23-2024 End: 04-23-2024 ambulatory Cholo Smith Facility:[facility] Start: 03-21-2024 End: 03-21-2024 ambulatory Cholo Smith Facility:[facility] Start: 03-19-2024 ambulatory Cholo Smith Facility: [facility] Start: 03-19-2024 ambulatory Cholo Smith Facility: [facility] Start: 03-19-2024 End: 03-20-2024 Evaluation and management of inpatient Cholo Smith Facility:[facility] Start: 03-12-2024 End: 03-12-2024 ambulatory Cholo Smith Facility:[facility] Start: 03-12-2024 End: 03-12-2024 ambulatory Cholo Smith Facility:[facility] Start: 03-06-2024 End: 03-06-2024 ambulatory Cholo Sarah Facility:[facility] Start: 03-04-2024 End: 03-05-2024 ambulatory Cholo Smith Facility:[facility] Start: 03-04-2024 End: 03-04-2024 ambulatory Cholo BrysonSarah Facility:[facility] Start: 10-20-2023 End: 10-20-[address] Cholo Smith Work Phone: [facility] Work Phone: Start: 10-20-2023 End: 10-20-[address] Cholo Smith Work Phone: [facility]-Laboratory, Specimen Work Phone: Start: 10-20-2023 End: 10-20-[address] Cholo Smith Work Phone: [facility] Work Phone: Start: 09-19-2023 End: 09-19-[address] Cholo Smith Work Phone: [facility] Work Phone: Start: 09-12-2023 End: 09-12-[address] Cholo Smith Work Phone: [facility] Work Phone: Start: 09-12-2023 End: 09-12-[address] Cholo Smith Work Phone: [facility] [place] Work Phone: Start: 08-21-2023 End: 08-21-[address] Cholo Smith Work Phone: [facility] Work Phone: Start: 08-21-2023 End: 08-21-[address] Cholo Smith Work Phone: [facility], Specimen Work Phone: Start: 08-21-2023 End: 08-21-[address] Cholo Smith Work Phone: [facility] Work Phone: Start: 05-30-2023 End: 05-30-[address] Cholo Smith Work Phone: [facility] Work Phone: Start: 05-26-2023 End: 05-26-[address] Cholo Smith Work Phone: [facility] Work Phone: Start: 05-26-2023 End: 05-26-[address] Cholo Smith Work Phone: [facility] Start: 05-12-2023 End: 05-12-2023 ambulatory CHOLO SMITH Facility:[facility] Start: 05-12-2023 End: 05-12-2023 Patient encounter procedure Kelly Calabrese PA-C Work Phone: Orthopaedics Comment on above: Strain of calf muscl e, left, initial encounter (Primary Dx) Start: 05-12-2023 End: 05-12-2023 Subsequent hospital visit by physician Povo Work Phone: Radiology Comment on above: Pain of left calf [M 79.662] Start: 03-22-2023 End: 03-22-[address] Cholo Smith Work Phone: [facility] Work Phone: Start: 03-22-2023 End: 03-22-[address] Cholo Smith Work Phone: [facility] Work Phone: Start: 03-03-2023 End: 03-03-[address] [facility] Start: 03-01-2023 End: 03-01-2023 ambulatory CHOLO SMITH Facility:[facility] Start: 03-01-2023 End: 03-01-2023 Subsequent hospital visit by physician Povo Work Phone: Radiology Comment on above: Pain in left hip [M2 5.552] Start: 02-18-2023 End: 02-18-[address] Cholo Smith Work Phone: [facility] Work Phone: Start: 12-28-2022 End: 12-28-2022 ambulatory PIERRE HICKS Facility:[facility] Start: 12-28-2022 End: 12-28-2022 Patient encounter procedure Cathrny Morrell DO Work Phone: Orthopaedics Comment on above: S/P orthopedic surge ry, follow-up exam (Primary Dx); Trochanteric bursitis of right hip; Iliotibial band syndrome of right side Start: 12-08-2022 End: 12-08-2022 Emergency department patient visit Dr. Cholo Smith Work Phone: [facility]-Emergency Department Start: 11-21-2022 End: 11-21-2022 ambulatory PIERRE FABIOLA Facility:[facility] Start: 11-09-2022 Telephone encounter Cathryn Morrell DO Work Phone: Orthopaedics Comment on above: Appointment Start: 11-08-2022 End: 11-08-2022 ambulatory [facility] Facility[facility] Start: 11-02-2022 End: 11-02-2022 ambulatory [facility] Facility[facility] Start: 11-02-2022 End: 11-02-2022 Patient encounter procedure Cathryn Morrell DO Work Phone: Orthopaedics Comment on above: Trochanteric bursiti s of right hip (Primary Dx); Iliotibial band syndrome of right side Start: 10-28-2022 End: 10-29-2022 ambulatory CATHRYN MORRELL Facility:[facility] Start: 10-28-2022 Encounter for other preprocedural examination J LUIS JACOBSON [facility] Start: 10-28-2022 End: 10-28-2022 Admission to [facility] 1 Work Phone: [facility] Start: 10-28-2022 End: 10-28-2022 ambulatory [facility] 1 Work Phone: Pre Anesthesia Comment on above: Preop examination (P rimary Dx) Start: 10-28-2022 End: 10-28-2022 Preprocedural examination done [facility] 1 Work Phone: Pre Anesthesia Start: 10-08-2022 End: 10-08-[address] Cholo Smith Work Phone: [facility] Start: 09-26-2022 Orders Only Viancaleon Morrell DO Work Phone: Orthopaedics Comment on above: Trochanteric bursiti s of right hip (Primary Dx); Iliotibial band syndrome of right side Start: 09-16-2022 End: 09-16-2022 ambulatory J LUIS NINO (HISTORIC) ZEWAIL Facility:[facility] Start: 09-12-2022 ambulatory ViancaYusra Morrell DO Work Phone: [facility] Start: 09-12-2022 Follow-up encounter Cathryn Morrell DO Work Phone: Orthopaedics Comment on above: MRI follow up Start: 09-07-2022 End: 09-07-[address] Cholo Smith Work Phone: [facility] Work Phone: Start: 09-07-2022 End: 09-07-[address] Cholo Smith Work Phone: [facility]Labor[facility] Start: 09-02-2022 End: 09-02-[address] Cholo Smith Work Phone: [facility] Work Phone: Start: 09-02-2022 End: 09-02-[address] Cholo Smith Work Phone: [facility] - [facility] Start: 09-01-2022 End: 09-01-[address] Cholo Smith Work Phone: [facility] Work Phone: Start: 09-01-2022 End: 09-01-[address] Cholo Smith Work Phone: [facility] Therapy Start: 09-01-[address] Cholo Smith Work Phone: [facility] Start: 08-18-2022 End: 08-18-2022 ambulatory CATHRYN LIMONABDIAS Facility:[facility] Start: 08-18-2022 End: 08-18-2022 Patient encounter procedure Cathryn Morrell DO Work Phone: Orthopaedics Comment on above: Trochanteric bursiti s of right hip (Primary Dx) Start: 07-20-2022 End: 07-20-[address] Cholo Smith Work Phone: [facility] Virtual Visit Start: 07-18-2022 End: 07-18-[address] Cholo Smith Work Phone: [facility]-Outpatient Breast Imaging Start: 07-13-2022 End: 07-13-[address] Cholo Smith Work Phone: [facility] Start: 07-13-[address] Cholo disla Work Phone: [facility] Start: 07-06-2022 End: 07-06-2022 ambulatory VIANCA JULIA Facility:[facility] Start: 07-06-2022 End: 07-06-2022 Patient encounter [...] Johnson PA-C Work Phone: [facility] Comment on above: Appointment Start: 02-28-2022 End: 02-28-2022 Subsequent hospital visit by physician [facility] Work Phone: Radiology Comment on [...] Dr. Cholo Smith Work Phone: [facility] Start: 12-15-2021 Telephone encounter Cathryn Morrell DO Work Phone: Orthopaedics Comment on above: Appointment Start: 12-08-2021 End: 12-08-2021 Patient encounter procedure Cathryn Morrell DO Work Phone: Orthopaedics Comment on above: Hip pain (Primary Dx ); Pain in hip; Trochanteric bursitis of right hip; Iliotibial band syndrome of right side Start: 12-08-2021 End: 12-08-2021 Subsequent hospital visit by physician [facility] Lindsey Morales Work Phone: Radiology Comment on above: Pain [R52] Start: 11-11-2021 Non-patient / Non-visit Dr. Cholo Smith Work Phone: [facility] Start: 11-03-2021 End: 11-03-[address] Cholo Smith Work Phone: [facility] Orthopaedic Specia Start: 10-04-2021 End: 10-04-[address] Cholo Smith Work Phone: [facility]-Laboratory, [place] hospitalist medical director Off Start: 09-14-2021 End: 09-14-[address] Cholo Smith Work Phone: [facility] Gastroenterology Procedures Date Procedure Procedure Detail Performing Clinician Start: 02-14-2025 Urnls dip stick/tabl et reagent auto microscopy Dr. Cholo Smith DO Work Phone: Start: 02-14-2025 Ultrasonography for biophysical profile without non-stress testing Dr. Cholo Smith DO Work Phone: Start: 02-14-[address] Cholo Smith DO Work Phone: Start: 02-07-[address] Cholo Smith [...] HCV Quant by PCR testing - HCVPCR [id number] Non Reactive: < 0.8 Equivocal: >/= 0.8 [...] tibia & fibula 2 views Kelly Calabrese [employer] Work Phone: Start: 03-01-2023 Radex hip unilateral with pelvis 2-3 views Kelly Calabrese [employer] Work Phone: Start: 09-02-2022 MRI of joint of lowe r extremity Dr. Cholo Smith Work Phone: Start: 07-18-2022 Bilateral mammography D ekaterina Smith Work Phone: Start: 07-18-[address] Cholo Smith Work Phone: Start: 07-06-2022 Arthrocentesis aspir &/inj major jt/bursa w/o us Cathryn Morrell DO Work Phone: Start: 07-06-2022 Radex hip unilateral with pelvis 2-3 views Cathryn Morrell DO Work Phone: Start: 02-28-2022 Dup-scan xtr veins unilateral/limited study Kelly OSWALDColdWatt Work Phone: Start: 12-31-2021 MRI of joint of lowe r extremity Dr. Cholo Smith Work Phone: Start: 12-08-2021 Radex hip unilateral with pelvis 2-3 views Viancaleon Morrell DO Work Phone: Viral antigen assay Dr. Cholo Smith Work Phone: Plan of Treatment Date Care Activity Detail Author Start: 06-15-2030 Urine microalbumin profile DTaP,Tdap,Td Vaccine (3 - Td or Tdap) [facility] Start: 02-14-2025 Biophysical pr ofile panel US [facility] Start: 02-14-2025 Ultrasonography for biophysical profile without non-stress testing OB Biophysical Prof W/O NST [facility] Start: 02-14-[address] [facility] Start: 02-14-2025 Obstetric monitoring [facility] Start: 02-14-[address] [facility] Start: 02-14-2025 [facility] Start: 02-14-2025 Patient discharge [facility] Start: 02-07-2025 Bacteria identified in Urine by Culture Urine Culture [facility] Start: 02-07-2025 End: 02-07-2025 [facility] Start: 02-07-[address] [facility] Start: 02-07-2025 Obstetric monitoring [facility] Start: 02-07-[address] [facility] Start: 10-15-2024 Source specific culture Genital Cult ure [facility] Start: 10-15-[address] [facility] Start: 10-12-2024 [facility] Start: 06-11-2024 Colonoscopy flexible with band ligation(s) COLONOSCOPY W/BAND LIGATION [facility] Start: 06-11-2024 Destruction internal hemorrhoid thermal energy DESTROY INTERNAL HEMORRHOIDS [facility] Start: 06-11-2024 Patient discharge [facility] Start: 03-10-2024 Covid-19 Vaccine ( season) Covid-19 Vaccine ( season) [facility] Start: 03-10-2024 Influenza vaccination Influenza Vacc ine (#1) [facility] Start: 12-08-2022 Incision & drainage abscess simple/single DRAINAGE OF SKIN ABSCESS [facility] Start: 07-10-2022 DEPRESSION ASSESSMENT DEPRESSION ASS [facility] Start: 03-10-2022 Influenza vaccination INFLUENZA (#1) [facility] Start: 11-11-2021 Patient referral [facility] Work Phone: Start: 07-10-2021 DEPRESSION ASSESSMENT DEPRESSION ASS [facility] Start: 2018 HPV TESTING HPV TESTING [facility] Start: 2009 PAP TESTING PAP TESTING [facility] Start: 2009 Screening for malign ant neoplasm of cervix Cervical Cancer Screening [facility] Start: 11-14-2007 Urine microalbumin profile DTAP,TDAP,TD (1 - Tdap) [facility] Start: 2006 Anxiety Screening Anxiety Screening [facility] Start: 2006 Depression Screening Depression Scre ening [facility] Start: 2006 HEPATITIS C SCREENING HEPATITIS C [facility] Start: 2006 Hepatitis C screening Hepatitis C [facility] Start: 2006 HIV SCREENING HIV SCREENING [facility] Start: 2006 HIV screening HIV Screening [facility] Start: 2000 Adult depression screening assessment DEPRESSION SCREENING [facility] Start: 1988 HEPATITIS B (1 of 3 - 3-dose series) HEPATITIS B (1 of 3 - 3-dose series) [facility] CBC W Auto Different ial panel - Blood [facility] CBC W Auto Different ial panel - Blood [facility] Hepatitis B surface antigen measurement [facility] Hepatitis C antibody measurement [facility] HIV 1+2 Ab+HIV1 p24 Ag [Presence] in Serum or Plasma by Immunoassay [facility] Measurement of gluco se 2 hours after glucose challenge for glucose tolerance test [facility] End: 01-07-2023 Mri any jt lower extrem w/o contrast matrl MRI HIP WO IVCON RT Radiology Routine Pain in hip 1 Occurrences starting 12/08/2021 until 01/07/2023 [facility] Work Phone: Comment on above: 1 Occurrences starti ng 12/08/2021 until 01/07/2023 End: 09-17-2023 MRI HIP WO IVCON RT MRI HIP WO IVCON RT Radiology Routine Trochanteric bursitis of right hip 1 Occurrences starting 08/18/2022 until 09/17/2023 [facility] Work Phone: Comment on above: 1 Occurrences starti ng 08/18/2022 until 09/17/2023 Patient Education [facility] Work Phone: Patient referral [facility] Work Phone: Protein/Creatinine [Ratio] in Urine [facility] Radionuclide study o f abdomen [facility] Rubella IgG measurement [facility] Serologic test for syphilis [facility] Streptococcus agalac tiae [Presence] in Unspecified specimen by Organism specific culture [facility] Treponema sp Ab [Presence] in Serum [facility] Urine culture [facility] US Abdomen limited [facility] Immunizations Immunization Date Immunization Notes Care Provider Fa [facility] 02-13-2025 tetanus toxoid, redu esthela diphtheria toxoid, and acellular pertussis vaccine, adsorbed Dr. Cholo Smith DO Work Phone: [facility] 05-16-2024 influenza, seasonal, injectable, preservative free Dr. Cholo Smith DO Work Phone: [facility] 01-15-2024 tetanus toxoid, redu esthela diphtheria toxoid, and acellular pertussis vaccine, adsorbed Dr. Cholo Smith DO Work Phone: [facility] 05-04-2023 Covid (Spikevax) Dr. Cholo Ann Work Phone: [facility] 04-12-2023 influenza, injectabl e, quadrivalent, preservative free Dr. Cholo Smith Work Phone: [facility] 04-12-2023 influenza virus vaccine, unspecified formulation [employer] Work Phone: [facility] 04-11-2022 influenza, injectabl e, quadrivalent, preservative free Dr. Cholo Smith Work Phone: [facility] 04-11-2022 influenza, seasonal, injectable Dr. Cholo Smith Work Phone: [facility] 04-01-2022 Covid Pfizer Bivalen t Booster Dr. Cholo Smith Work Phone: [facility] 05-14-2021 Covid (Pfizer) Dr. Cholo lopez Work Phone: [facility] 04-16-2021 influenza, injectabl e, quadrivalent, preservative free Dr. Cholo Smith Work Phone: [facility] 04-16-2021 influenza, seasonal, injectable Dr. Cholo Smith Work Phone: [facility] 10-01-2020 Covid (Pfizer) Dr. Cholo lopez Work Phone: [facility] 09-10-2020 Covid (Pfizer) Dr. Cholo lopez Work Phone: [facility] 06-15-2020 tetanus toxoid, redu esthela diphtheria toxoid, and acellular pertussis vaccine, adsorbed Dr. Cholo Smith Work Phone: [facility] 04-15-2020 influenza, injectabl e, quadrivalent, preservative free Dr. Cholo Smith Work Phone: [facility] 04-15-2020 influenza, seasonal, injectable Dr. Cholo Smith Work Phone: [facility] 11-25-2019 hepatitis B vaccine, adult dosage Dr. Cholo Smith Work Phone: [facility] 06-27-2019 hepatitis B vaccine, adult dosage Dr. Cholo Smith Work Phone: [facility] 05-30-2019 hepatitis B vaccine, adult dosage Dr. Cholo Smith Work Phone: [facility] 02-23-2018 influenza, injectabl e, quadrivalent, preservative free Dr. Cholo Smith Work Phone: [facility] 02-23-2018 influenza, seasonal, injectable Dr. Cholo Smith Work Phone: [facility] 02-23-2018 tetanus toxoid, redu esthela diphtheria toxoid, and acellular pertussis vaccine, adsorbed Dr. Cholo Smith Work Phone: [facility] Payers Date Payer Category Payer Self-pay [id number] 2022 Unknown [id number] 2020 Unknown [employer] PPO [id number] 2020-Present [phone] [address] [place] [address] PPO [id number] [id number] 2020 Unknown [id number] 2020 Unknown [id number]. 1.13.159.2.7.3.6 [id number] 1988 Unknown [id number] 2840.1.630702.3.579.2 1988 Unknown [id number] 2.840.1.647687.3.579.2 1988 Unknown [id number] 2..840.1.972832.3.579.2 1988 Unknown [id number] 2.16840.1.405856.3.579.2 1988 Unknown [id number] 2.16.840.1.699004.3.579.2.479 1988 Unknown [id number] 2.16.840.1.804030.3.579.2.479 1988 Unknown [id number] 2.16.840.1.272821.3.579.2.479 Unknown [id number] 2.840.1.070099.3.579.2.462 Unknown [id number] 2.840.1.481136.3.579.2.462 Unknown [id number] 2.840.1.323719.3.579.2.462 Unknown [id number] 2.840.1.596727.3.579.2.462 Unknown [id number] 2.840.1.955613.3.579.2.462 Unknown [id number] 2.840.1.606109.3.579.2.462 Unknown [id number] 2.840.1.694898.3.579.2.462 Unknown [id number] 2.840.1.225667.3.579.2.462 Unknown [id number] 2.840.1.857864.3.579.2.462 Unknown [id number] 2.840.1.707751.3.579.2.462 Unknown [id number] 2.840.1.905658.3.579.2.462 Unknown [id number] 2.840.1.519812.3.579.2.462 Unknown [id number] 2.16840.1.672392.3.579.2.462 Unknown [id number] 2.16840.1.508383.3.579.2.462 Unknown [id number] 2.840.1.068913.3.579.2.462 Unknown [id number] 2.16.840.1.987073.3.579.2.462 Unknown [id number] 2.16.840.1.664901.3.579.2.462 Unknown [id number] 2.16.840.1.258575.3.579.2.462 Unknown [id number] 2.16.840.1.519344.3.579.2.462 Unknown [id number] 2.16.840.1.022107.3.579.2.462 Unknown [id number] 2..840.1.441830.3.579.2.462 Unknown [id number] 2.840.1.798764.3.579.2.462 Unknown [id number] 2.840.1.854374.3.579.2.462 Unknown [id number] 2.840.1.572369.3.579.2.462 Unknown [id number] 2.840.1.837991.3.579.2.462 Unknown [id number] 2.840.1.596452.3.579.2.462 Unknown [id number] 2..840.1.154691.3.579.2.462 Unknown [id number] 2.840.1.021752.3.579.2.462 Unknown [id number] 2.840.1.836008.3.579.2.462 Unknown [id number] 2.840.1.287531.3.579.2.462 Unknown [id number] 2.16.840.1.849729.3.579.2.462 Unknown [id number] 2.16.840.1.884706.3.579.2.462 Unknown [id number] 2..840.1.466329.3.579.2.462 Unknown [id number] 2.840.1.668744.3.579.2.462 Unknown [id number] 2.16.840.1.410879.3.579.2.462 Unknown [id number] 2.16.840.1.834570.3.579.2.462 Unknown [id number] 2.16.840.1.641714.3.579.2.462 Unknown [id number] 2.16.840.1.387558.3.579.2.462 Unknown [id number] 2.16.840.1.451299.3.579.2.462 Unknown [id number] 2.16840.1.522070.3.579.2.462 Unknown [id number] 2.16840.1.590165.3.579.2.462 Unknown [id number] 2.16840.1.608535.3.579.2.462 Unknown [id number] 2.840.1.512307.3.579.2.462 Unknown [id number] 2.16840.1.847335.3.579.2.462 Unknown [id number] 2.16840.1.632931.3.579.2.462 Unknown [id number] 2.16840.1.350818.3.579.2.462 Unknown [id number] 2.840.1.310780.3.579.2.462 Unknown [id number] 2.840.1.394636.3.579.2.462 Unknown [id number] 2.840.1.117128.3.579.2.462 Social History Date Type Detail Facility Start: 03-09-2022 End: 01-13-2025 Tobacco smoking status NHIS Never smoked tobacco [facility] Start: 12-08-2021 End: 04-21-2022 Alcohol intake Current non-drinker of alcohol (finding) [facility] Start: 1990 Sex Assigned At Female C [facility] Start: 11-28-2021 End: 04-21-2022 Exposure to SARS-CoV-2 (event) Not sure [facility] Start: 11-03-2021 End: 10-20-2023 Tobacco smoking status NHIS Unknown if ever smoked [facility] Start: 11-01-2019 Non-smoker [facility] Start: 01-18-2022 End: 01-28-2022 Exposure to SARS-CoV-2 (event) Unable to assess [facility] Start: 03-09-2022 Tobacco use and exposure Smokeless tobacco non-user [facility] Start: 12-08-2021 End: 05-12-2023 History of Social function [facility] Start: 12-08-2021 End: 05-12-2023 Tobacco use panel [facility] Adult Depression Screening Assessment 0 [facility] Start: 12-08-2021 Gender identity Identifies as female gender (finding) [facility] Start: 12-08-2021 Sexual orientation Heterosexual (fin ding) [facility] Start: 09-24-2024 End: 10-17-2024 Sex Female (finding) [facility] NEGATED: Highlighted row [facility] NEGATED: Highlighted row Not [facility] Medical Equipment Procedure Code Equipment Code Equipment Origin al Text Equipment Identifier Dates Colonoscopy Oesophageal endoscopic ligator, single-useHaemorrhoid ligator ([id number] [facility] Start: 06-11-2024 Goals Date Patient Goal Desired Activity /State Mental Status Date Assessment Result Facility 06-11-2024 Cognitive function Level Of Consciousness Sedated [facility] Work Phone: 06-11-2024 Cognitive function Voice/Name [facility] Work Phone: Clinical Notes 12-08-2021 to 02-18-2025 Note Date & Type Note Facility 02-18-2025 Progress note [facility] 02-18-2025 Progress note Note Date/Time February 18, 2025 2:43pm [facility] [address], [address] [place] [address] OFFICE VISIT Date of Service: 02/18/25 MR#: [id number] Acct: [id number] Name: MANDI VALENTE Rep #: [id number] : 1990 Provider: Dr. Sukhwinder Moreno MD Age/Sex: 34/F Location: [facility] [place] Status: Signed Intake Vital Signs 02/14/25 21:49 02/18/25 14:28 02/18/25 14:41 Height 5 ft 2 in 5 ft 2 in Weight: 216 lb BP 128/84 H Intake Visit Reasons: 34wk, possible Pre- E FU from WP Acid Tester Required: No Is patient in pain?: No Allergies No Known Allergies Allergy (Verified 02/18/25 14:35) Medications ?Medication ?Instructions ?Recorded ?Confirmed ?Type multivitamin no.47-iron fum 27 1 cap PO DAILY pregnanc y 08/18/23 02/18/25 History mg-folate no.1 1 mg-dha 300 mg capsule (PNV-DHA) Diltiazem 2% / Lidocaine 5% #1 ea 06/24/24 02/18/25 Rx ointment (compound) polyethylene glycol 3350 17 4 g PO QDAY PRN 06/24/24 0 02/18/25 History gram/dose oral powder (Miralax) ferrous sulfate 325 mg (65 mg 325 mg PO Q OTHER DAY 02/18/25 History iron) tablet folic acid 0.8 mg capsule 0.8 mg PO QDAY 08/06/2402/07 History famotidine 20 mg tablet (Pepcid) 20 mg PO BID 90 days #180 tabs 09/10/24 02/18/25 Rx hydroxyzine pamoate 25 mg capsule 25 mg PO QHS PRN itc marla #30 caps 01/03/25 02/18/25 Rx Last Menstrual Period: 06/20/24 Zika: Zika virus screening: Negative : No PFSH PFSH Medical History (Updated 02/18/25 @ 14:[address] 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 Date Name GA/Weeks Outcome Route Bth Weight Gen Labor Lgth Anesthesia Del Locatn Provider FOB 04/05/18 Vinsen 41 live - full term 9#7oz Male 26 hrs epid ural [employer] Katkeily Madsen Alvarez 11/01/19 10 spontaneous 08/10/20 Lakisha 37 live - full term 5#14oz Female 10 HR epid ural [employer] Jenni Pino 08/10/20 [place] 37 live - full term 6#4oz Male 10 HR epid ural [employer] Jenni Pino 03/19/24 Elaine 39 live - full term 8lbs 2oz Female [employer] Dr. Gleason Delivery Date: 04/05/18 Last Updated [...] by: Lauren Osborn AMA, gestational hypertension HPI 34wk, possible Pre- E FU from WP Details: MANDI VALENTE is a 34 year old who presents for routine OB visit. OB Visit RAMSES Calculator Estimated Delivery Date Method Current WG Current Estimate 03/27/25 LMP (Certain) 34w 5d Expected Delivery Route/Plan Labor Preferences- CB/BF classes: [...] 6 oz (-2 lb 10 oz) 139/84 -?-?-?-?-?-?-?-?--?-?-?-?- 165 -?-?-?-?-?-?-?-?-?-?-?-?- JV- CRL consiste nt with [...] (+2 oz) 136/85 Negative -?-?-?-?-?-?-?-?-?-?-?-?- Negative 155 -?-?-?-?-?-?-?-?-?-?--?-?- JV- no complaint s today. blood work done. 10/07/24 -?-?-?-?-?-?-?-?-?-?-?-?- 15w 4d 200 lb 2 oz (+4 lb 2 oz) 138/85 Negative -?-?-?-?-?-?-?-?-?-?-?-?- Negative 149 -?-?-?-?-?-?-?-?-?-?-?-?- KW- no vb/lof/ct x. cyst is bothersome again. [facility] scheduled KW- no vb/lof/ctx. cyst is b othersome again discussed with SM. [facility] scheduled 10/15/24 -?-?-?-?-?-?-?-?-?-?-?-?- 16w 5d 200 [...] can offer 39 week elective induction though. 02/18/25 -?-?-?-?-?-?-?-?-?-?-?-?- 34w 5d 216 lb (+20 lb) 128/84 -?-?-?-?-?-?-?-?-?-?-?-?- 140 35 Cephalic -?-?-?-?-?-?-?-?-?-?--?-?- SM- no vb lof go od fm n oregular ctx pupps no bp elevatin, feels like head down now ACOG First Trimester First Trimester: Discussed Second Trimester Second Trimester: Signs and Symptoms of Labor, Selecting a care provider, Reproductive Life Planning & Contreception, Care Planning, Depression/Anxiety and Intimate Partner Violence; Discussed Tobacco Cessation Third Trimester Third Trimester: Pain Management Plans, Labor support person(s), Immediate Larc, Circumcision preference, Movement Monitoring, Signs and Symptoms of Preeclampsia, Banks Education and Family Medical Leave or Disability Forms Coding Level of Care Code OB Routine Diagnoses Proteinuria affecting O12.10 Contraction, [place] Osman O47.9 LGA (large for gestational age) fetus Advanced maternal age in multigravida O09.529 Abnormal glucose affecting O99.810 Short interval between pregnancies affecting in first trimester, antepartum O09.891 History of miscarriage, currently O09.299 Hx of twin in prior Z87.59 Supervision of high-risk O09.90 34 weeks gestation of Z3A.34 Weeks of gestation: 34 weeks Obesity affecting O99.210 Inclusion cyst of vulva N90.7 Hx of pre-eclampsia in prior , currently O09.299 Abdominal pain R10.9 Perianal candidiasis B37.89 Rectal pain K62.89 Pelvic floor weakness in female N81.89 Chronic anemia D64.9 Gestational hypertension, antepartum O13.9 Trimester: unspecified trimester Hemorrhoids, unspecified hemorrhoid type K64.9 Hemorrhoid type: unspecified Lymphocytic colitis K52.832 Assessment and Plan Assessment and Plan (1) Proteinuria affecting : Status: Acute Comment: at 34 weeks-normal BP and rest of pre e labs. no pre e sx. (2) Contraction, Romero Osman: Status: Acute Comment: fingertip per nursing dilated with less intense/frequency in ctx. (3) LGA (large for gestational age) fetus: Status: Acute Comment: 32wk: EFW 69%, AC 97%: rpt 1 hr GCT/normal (4) Advanced maternal age in multigravida: Status: Acute (5) Abnormal glucose affecting : Status: Acute Comment: normal 3 hour (6) Short interval between pregnancies affecting in first trimester, antepartum: Status: Acute Comment: baby 4 months old when became with this gestation. (7) History of miscarriage, currently : Status: Acute (8) Hx of twin in prior : Status: Acute Comment: Fraternal (9) Supervision of high-risk : Status: Acute Comment: PRR,, RAMSES 03/27/25, boy,PC Lakisha Underwood & Earnestine(Twins), Elaine Alvarez will be 39 weeks on Elaine's b-day. requests IOL on this day. (10) : Status: Acute Qualifiers: Weeks of gestation: 34 weeks Qualified Code(s): Z3A.34 - 34 weeks gestation of Comment: NIPT low risk, anatomy needs f/u views. (11) Obesity affecting : Status: Acute Comment: HgbA1c (12) Inclusion cyst of vulva: Status: Acute Comment: +actinomycis:4 wk of amoxil (13) Hx of pre-eclampsia in prior , currently : Status: Acute Comment: negative labs . bp stable in WP. headache resolved. (14) Abdominal pain: Status: Acute (15) Perianal candidiasis: Status: Acute (16) Rectal pain: Status: Acute (17) Pelvic floor weakness in female: Status: Acute (18) Chronic anemia: Status: Chronic (19) Gestational hypertension: Status: Acute Qualifiers: Trimester: unspecified trimester Qualified Code(s): O13.9 - Gestational [-induced] hypertension without significant proteinuria, unspecified trimester Comment: resolved pp (20) Hemorrhoids: Status: Acute Qualifiers: Hemorrhoid type: unspecified Qualified Code(s): K64.9 - Unspecified hemorrhoids (21) Lymphocytic colitis: Status: Acute 02/18/25 1443 <Electronically signed by Piedad ribera MD> Date _ Piedad Moreno MD Cosigner Signature: Date (if applicable) CC: ~ [facility] Work Phone: 1(350) 774-990308-08-2025 Progress note [facility] Medical Records Department [address] [place] [address] OB Triage Progress Note 02/14/25 2330 MR#: [id number] Acct: [id number] Name: MANDI VALENTE Rep #:[id number] : 1990 34 From: Suyapa Godinez CNM PCP: Dr. Cholo Smith, DO Status:REG CLI Y DOS: Location: [place] [address] Progress Notes Date of Service: 02/14/25 Progress Note: Patient presents for triage evaluation secondary to decreased movement at 34 weeks and slightRUQ pain. FHT: 120 Moderate variability reactive no decelerations category I tracing [place]: no Contractions Assessment and plan: pain resolved with tylenol, Reactive NST, No pre e sx, labs normal except PC ratio-will continue to monitor in office. IF BPP reassuring, plan to D/C home. See problem list details for additional plan information. Laboratory Studies: Laboratory Tests 02/14/25 02/14/25 Range/Units 22:20 22:00 WBC 9.2 (4.4-11.0) K/mm3 RBC 3.81 L (4.2-5.4) M/mm3 Hgb 11.3 L (12.0-15.0) g/dL Hct 33.1 L (37-47) % MCV 86.9 (81-99) fL MCH 29.7 (27.0-32.0) pg MCHC 34.1 (32-36) g/dL RDW Std Deviation 40.4 (35.1-43.9) fl RDW Coeff of Oneil 12.9 (11.6-14.6) % Plt Count 192 (150-450) K/mm3 MPV 11.0 (6.2-12.0) fl Immature Gran % (Auto) 0.500 (0.0-0.9) % Neut % (Auto) 72.0 H (47-70) % Lymph % (Auto) 18.0 L (19-41) % [place]ade % (Auto) 5.9 (0-10) % Eos % (Auto) 3.2 (0-5) % Baso % (Auto) 0.4 (0-1) % Absolute Neuts (auto) 6.6 (2.0-7.7) X10^3/uL Absolute Lymphs (auto) 1.66 (0.83-4.51) X10^3/uL Nucleated RBC % 0 (0-5) % Sodium 136 (133-145) mmol/L Potassium 3.5 (3.3-5.1) mmol/L Chloride 104 (98-108) mmol/L Carbon Dioxide 18.1 L (21.0-32.0) mmol/L Anion Gap 14 (5-15) BUN 5 (4-19) mg/dL Creatinine 0.45 L (0.70-1.20) mg/dL Estim Creat Clear Calc 190.12 (50-250) ml/min Est GFR (MDRD) Non-Af 128 (>60) BUN/Creatinine Ratio 11.3 (10-20) RATIO Glucose 89 (70-99) mg/dL Calcium 9.1 (7.6-11.0) mg/dL Total Bilirubin 0.17 (0.00-1.30) mg/dL AST 13 (<=31) U/L ALT 7 (<=34) U/L Alkaline Phosphatase 64 (35-104) U/L Total Protein 6.2 (5.9-8.4) g/dL Albumin 3.6 (3.5-5.0) g/dL Globulin 2.6 (2.2-4.2) g/dL Albumin/Globulin Ratio 1.4 (0.9-2.4) RATIO Lipase 23 (13-75) U/L Urine Color Yellow (Yellow) Urine Clarity Clear (Clear) Urine pH 6.5 (5.0 - 8.0) Ur Specific [place] 1.010 (1.002-1.030) Urine Protein Negative (Negative) mg/dl Urine Glucose (UA) Normal (Normal) mg/dl Urine Ketones Negative (Negative) mg/dl Urine Occult Blood Negative (Negative) /ul Urine Nitrite Negative (Negative) Urine Bilirubin Negative (Negative) mg/dL Urine Urobilinogen Normal (Normal) mg/dl Ur Leukocyte Esterase Negative (Negative) /ul Urine RBC 0 SEEN (0-5) /hpf Urine WBC 0-5 SEEN (0-5) /hpf Ur Squamous Epith Cells 0-5 SEEN (5-10) /hpf Urine Bacteria 2+ (None Seen) /hpf Urine Mucus 0 SEEN ( U Random Total Protein 9.1 (0.0-12.0) mg/dL Urine Creatinine 18.30 L (28.00-217.00) mg/dL Protein/Creatinin Ratio 498 H (0-200) mg/g CRE Charges/Coding Multi Select Codes Visit Charges Office Visit/Consults: 10223 OV L3 Est 20min Urinary/Genital Urinary/Genital CPT Codes: 07031-13 non-stress test Interp Assessment & Plan (1) Proteinuria affecting : COMMENT: at 34 weeks-normal BP and rest of pre e labs. no pre e sx. (2) Contraction, [place] Osman: COMMENT: fingertip per nursing dilated with less intense/frequency in ctx. (3) LGA (large for gestational age) fetus: COMMENT: 32wk: EFW 69%, AC 97%: rpt 1 hr GCT/normal (4) Advanced maternal age in multigravida: (5) Abnormal glucose affecting : COMMENT: normal 3 hour (6) Short interval between pregnancies affecting in first trimester, antepartum: COMMENT: baby 4 months old when became with this gestation. (7) History of miscarriage, currently : (8) Decreased movement: COMMENT: reactive NST and BPP (9) Hx of twin in prior : COMMENT: Fraternal (10) Supervision of high-risk : COMMENT: PRR,, RAMSES 03/27/25, boy,PC Yasmine, Lakisha & Earnestine(Twins), Elaine Alvarez will be 39 weeks on Elaine-. requests IOL on this day. (11) : QUALIFIERS: Weeks of gestation: 34 weeks Qualified Code(s): Z3A.34 - 34 weeks gestation of COMMENT: NIPT low risk, anatomy needs f/u views. (12) Obesity affecting : COMMENT: HgbA1c (13) Inclusion cyst of vulva: COMMENT: +actinomycis:4 wk of amoxil (14) Hx of pre-eclampsia in prior , currently : COMMENT: negative labs . bp stable in WP. headache resolved. (15) Abdominal pain: (16) Perianal candidiasis: (17) Rectal pain: (18) Pelvic floor weakness in female: (19) Chronic anemia: (20) Gestational hypertension: QUALIFIERS: Trimester: unspecified trimester Qualified Code(s): O13.9 - Gestational [-induced] hypertension without significant proteinuria, unspecified trimester COMMENT: resolved pp (21) Hemorrhoids: QUALIFIERS: Hemorrhoid type: unspecified Qualified Code(s): K64.9- Unspecified hemorrhoids (22) Lymphocytic colitis: 02/14/25 2334 s CNM> Date _ Suyapa Garcia Signature (if applicable): Date CC: ERI Godinez; Dr. Cholo Smith, DO ~ Signed [facility]08-07-2025 Progress [facility] [address], [address] [place] [address] OFFICE VISIT Date of Service: 02/13/25 MR#: [id number] Acct: [id number] Name: MANDI VALENTE Rep #: [id number] : 1990 Provider: Dr. 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 Date Name GA/Weeks Outcome Route Bth Weight Gen Labor Lgth Anesthesia Del Locatn Provider FOB 04/05/18 Vinsen 41 live - full term 9#7oz Male 26 hrs epid ural [employer] [facility] Katkeily Madsen Alvarez 11/01/19 10 spontaneous 08/10/20 Lakisha 37 live - full term 5#14oz Female 10 HR epid ural [employer] Jenni Pino 08/10/20 [place] 37 live - full term 6#4oz Male 10 HR epid ural [facility] Jenni Pino 03/19/24 Elaine 39 live - full term 8lbs 2oz Female [employer] Dr. Gleason Delivery Date: 04/05/18 Last Updated [...] by: Lauren Osborn AMA, gestational hypertension HPI 34 wk ob *Doc [...] no vb/lof/ct x. cyst is bothersome again. [facility] scheduled KW- no vb/lof/ctx. cyst is b othersome again discussed with SM. [facility] scheduled 10/15/24 -?-?-?-?-?-?-?-?-?-?-?-?- 16w 5d 200 [...] GHTN and delivery at 38 weeks. we canoffer 39 week elective induction though. ACOG First [...] Performing Provider: Reina Rashid DO Performing Location: [facility] Administered by: Lauren Osborn on 02/13/25 16:21 Dose Route Admin Location Dispensed Lot Number Expiration Date NDC Creative Services Coordinator 0.5 mL IM Left Deltoid 0.5 mL [id number] 01/06/27 80216-776-84 [employer] VIS Given Date VIS Provided VIS Publication Date 02/13/25 Single Vaccine 24 Eligibility Eligibility Date Funding Source Not Applicable Coding Level of Care Code OB Routine Diagnoses Contraction, Romero Osman O47.9 LGA (large for gestational age) [...] NS Z23 - Encounter for immunization 02/13/25 1637 e Heather DO> Date _ Reina Rashid DO Cosigner Signature: Date (if applicable) CC: ~ [facility]08-07-2025 Progress note Author Reina Romero [facility] Note Date/Time February 13, 2025 4:3 7pm [facility] [address], [address] [place] [address] OFFICE VISIT Date of Service: 02/13/25 MR#: [id number] Acct: [id number] Name: MANDI VALENTE Rep #: [id number] : 1990 Provider: Dr. Bernadine Rashid DO Age/Sex: 34/F Location: [facility] [place] Status: Signed Intake Vital Signs 12/04/24 14:55 02/07/25 12:21 02/13/25 16:08 Height 5 ft 2 in 5 ft 2 in 5 ft 2 in Weight: 218 lb 6 oz BMI 39.9 BP 120/82 H Intake Visit Reasons: 34 wk ob *Doc Only Acid Tester Required: No Is patient in pain?: No [...] mg capsule 0.8 mg PO QDAY 08/06/24 08/0 01/31 History famotidine 20 mg tablet (Pepcid) [...] 4 current occupational status: employed current occupation: [employer] Registration PRN current occupational exposures/hazards: No pets [...] physical activity do you participate in: none suraj/oriental orthodox: Anglican seatbelt use: always do you feel safe at home: Yes 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 Date Name GA/Weeks Outcome Route Bth Weight Infant Gen Labor Lgth Anesthesia Del Locatn Provider FOB 04/05/18 Vinsen 41 live - full term 9#7oz Male 26 hrs epid ural [facility] Shey Madsen Alvarez 11/01/19 10 spontaneous 08/10/20 Lakisha 37 live - full term 5#14oz Female 10 HR epid ural [facility] Jenni Pino 08/10/20 [place] 37 live - full term 6#4oz Male 10 HR epid ural [facility] Jenni Pino 03/19/24 Elaine 39 live - full term 8lbs 2oz Female [facility] Dr. Gleason Delivery Date: 04/05/18 Last Updated [...] no vb/lof/ct x. cyst is bothersome again. [facility] US scheduled KW- no vb/lof/ctx. cyst is b othersome again discussed with SM. [facility] scheduled 10/15/24 -?-?-?-?-?-?-?-?-?-?-?-?- 16w 5d 200 lb [...] Movement Monitoring, Signs and Symptoms of Preeclampsia, Banks Education and Family Medical Leave or Disability Forms Results POC Urinalysis 2 Dip (Clinic) Office Urine Glucose Negative Last Edit by Lauren Osborn on 02/13/25 16: 22 Office Urine Protein Negative Last Edit by Lauren Osborn on 02/13/25 16: 22 Immunizations Adacel(Tdap Adolesn/Adult)(PF) 2 Lf-(2.5-5-3-5)-5 Lf/0.5 mL IM syringe Performing Provider: Reinahuber Rashid DO Performing Location: [facility] Administered by: Lauren Adriane Osborn on 02/13/25 16:21 Dose Route Admin Location Dispensed Lot Number Expiration Date [facility] Creative Services Coordinator 0.5 mL IM Left Deltoid 0.5 mL [id number] 01/06/27 72089-121-95 [employer] VIS Given Date VIS Provided VIS Publication Date 02/13/25 Single Vaccine 24 Eligibility Eligibility Date Funding Source Not Applicable Coding Level of Care Code OB Routine Diagnoses Contraction, [place] Osman O47.9 LGA (large for gestational age) [...] NS Z23 - Encounter for immunization 02/13/25 6417 <Electronically signed by Reina Billings DO> Date _ Reina Rashid DO Cosigner Signature: Date (if applicable) CC: ~ [facility] Work Phone: 1(508) 175-337008-01-2025 History and physical note [facility] Medical Records Department [address] [place] [address] OB Triage Physician Note 02/07/25 1433 MR#: [id number] Acct: [id number] Name: MANDI VALENTE Rep #:[id number] : 1990 34 From: Linda Hammond CNM PCP: Dr. Cholo Smith, DO Status:REG CLI Y Location: [place] 348152-1 HPI - General HPI Narrative MANDI VALENTE, [...] 4 current occupational status: employed current occupation: [facility] Registration PRN current occupational exposures/hazards: No pets [...] physical activity do you participate in: none suraj/oriental orthodox: Anglican seatbelt use: always do you feel safe at home: Yes additional social history: 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 Date Name GA/Weeks Outcome Route Bth Weight Gen Labor Lgth Anesthesia Del Locatn Provider FOB 04/05/18 Vinsen 41 live - full term 9#7oz Male 26 hrs epid ural [facility] Shey Pino 11/01/19 10 spontaneous 08/10/20 Lakisha 37 live - full term 5#14oz Female 10 HR epid ural [facility] Jenni Pino 08/10/20 Abran 37 live - full term 6#4oz Male 10 HR epid ural [facility] Jenni Pino 03/19/24 Elaine 39 live - full term 8lbs 2oz Female [facility] Dr. Gleason Delivery Date: 04/05/18 Last Updated [...] no vb/lof/ct x. cyst is bothersome again. [facility] scheduled KW- no vb/lof/ctx. cyst is b othersome again discussed with SM. [facility] scheduled 10/15/24 -?-?-?-?-?-?-?-?-?-?-?-?- 16w 5d 200 [...] no vb lof cr ampingboy on US - no vb lof cramping boy o n [...] irregular q4-12 Assessment & Plan (1) Contraction, [place]man: COMMENT: fingertip per nursing dilated with less intense/frequency in ctx. (2) Hx of pre-eclampsia in prior , currently : COMMENT: negative labs . bp stable in WP. headache resolved. PLAN: Plan Patient presents for triage evaluation secondary to contractions. FHT: Moderate variability reactive no decelerations category I tracing [place]: irregular Contractions Assessment and plan: Reactive NST, reassuring maternal and status patient discharged to home to follow-up in office.. See problem list details for additional plan information. Charges/Coding Procedures Urinary/Genital 52xxx-59xxx: 21526-62 non-stress test Interp 02/07/25 1437 ns CNM> Date _ [facility] Signature (if applicable): Date CC: ERI Hammond; Dr. hColo Smith, DO ~ Signed [facility]07-07-2025 Progress [facility] [address], [address] [place] [address] OFFICE VISIT Date of Service: 01/13/25 MR#: [id number] Acct: [id number] Name: MANDI VALENTE Rep #: [id number] : 1990 Provider: ERI Godinez Age/Sex: 34/F Location: [facility] [place] Status: Signed Intake Vital Signs 11/07/24 09:36 01/03/25 15:03 01/13/25 10:45 Height 5 ft 2 in 5 ft 2 in 5 ft 2 in Weight: 215 lb 8 oz BMI 39.4 BP 126/87 H Intake Visit Reasons: 30 wk ob Chief Complaint: 30wk ob Acid Tester Required: No Is patient in pain?: No [...] mg capsule 0.8 mg PO QDAY 08/06/24 070 01/31 History famotidine 20 mg tablet (Pepcid) 20 mg PO BID 90 days #180 tabs 09/10/24 01/13/25 Rx hydroxyzine pamoate 25 mg capsule 25 mg PO QHS PRN itc marla #30 caps 01/03/25 01/13/25 Rx Last Menstrual Period: 06/20/24 : No [facility] Medical History Seasonal allergies Hx of pre-eclampsia [...] 4 current occupational status: employed current occupation: [facility] [employer] [employer] Registration PRN current occupational exposures/hazards: No pets [...] physical activity do you participate in: none suraj/oriental orthodox: Anglican seatbelt use: always do you feel safe at home: Yes 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 Date Name GA/Weeks Outcome Route Bth Weight Gen Labor Lgth Anesthesia Del Locatn Provider FOB 04/05/18 Vinsen 41 live - full term 9#7oz Male 26 hrs epid ural [facility] Shey Madsen Alvarez 11/01/19 10 spontaneous 08/10/20 [place] 37 live - full term 5#14oz Female 10 HR epid ural [facility] Jenni Pino 08/10/20 [place] 37 live - full term 6#4oz Male 10 HR epid ural [facility] Jenni Pino 03/19/24 Elaine 39 live - full term 8lbs 2oz Female [facility] Dr. Gleason Delivery Date: 04/05/18 Last Updated [...] no vb/lof/ct x. cyst is bothersome again. [facility] scheduled KW- no vb/lof/ctx. cyst is b othersome again discussed with . [facility] scheduled 10/15/24 -?-?-?-?-?-?-?-?-?-?-?-?- 16w 5d 200 lb [...] Today 01/13/25 1106 s CNM> Date _ Suyapa Andreignadamaris Signature: Date (if applicable) CC: ~ [facility] [id number] [facility] [address] [place] [address], [address] [place] [address] OFFICE VISIT Date of Service: 12/04/24 MR#: [id number] Acct: [id number] Name: MANDI VALENTE Rep #: [id number] : 1990 Provider: Dr. Bernadine Rashid DO Age/Sex: 34/F Location: [facility] [place] Status: Signed Intake Vital Signs 09/10/24 14:53 11/07/24 09:36 12/04/24 14:55 Height 5 ft 2 in 5 ft 2 in 5 ft 2 in Weight: 210 lb 8 oz BMI 38.5 BP 130/77 H Intake Visit Reasons: 24 wk ob Acid Tester Required: No Is patient in pain?: No [...] 4 current occupational status: employed current occupation: [facility] Registration PRN current occupational exposures/hazards: No pets [...] physical activity do you participate in: none suraj/oriental orthodox: Anglican seatbelt use: always do you feel safe at home: Yes 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 Date Name GA/Weeks Outcome Route Bth Weight Gen Labor Lgth Anes thes ia Del Locatn Provider FOB 04/05/18 Vinsen 41 live - full term 9#7oz Male 26 hrs epid ural [facility] Shey Madsen Alvarez 11/01/19 10 spontaneous 08/10/20 Lakisha 37 live - full term 5#14oz Female 10 HR epid ural [facility] Jenni Pino 08/10/20 Abran 37 live - full term 6#4oz Male 10 HR epid ural [facility] Jenni Pino 03/19/24 Elaine 39 live - full term 8lbs 2oz Female [facility] Dr. Gleason Delivery Date: 04/05/18 Last Updated [...] no vb/lof/ct x. cyst is bothersome again. [facility] scheduled KW- no vb/lof/ctx. cyst is b othersome again discussed with SM. [facility] scheduled 10/15/24 -?-?--?-?-?-?-?-?-?-?-?-?- 16w 5d 200 [...] Movement Monitoring, Signs and Symptoms of Preeclampsia, Banks Education and Family Medical Leave or Disability [...] Encounter for screening fordiabetes mellitus HIV Today O - Supervision of high risk , unspecified, unspecifiedtrimester Syphilis Antibodies Today O09 - Supervision of high risk , unspecified, unspecified trimester 12/04/24 1524 e Heather DO> Date _ Reina Rashid DO Cosigner Signature: Date (if applicable) CC: ~ [facility]05-28-2025 Progress note Author Reina Romero [facility] Note Date/Time December 04, 2024 3:24p [facility] [address], [address] [place] [address] OFFICE VISIT Date of Service: 12/04/24 MR#: [id number] Acct: [id number] Name: MANDI VALENTE Rep #: [id number] : 1990 Provider: Dr. Bernadine Rashid DO Age/Sex: 34/F Location: [facility] [place] Status: Signed Intake Vital Signs 09/10/24 14:53 11/07/24 09:36 12/04/24 14:55 Height 5 ft 2 in 5 ft 2 in 5 ft 2 in Weight: 210 lb 8 oz BMI 38.5 BP 130/77 H Intake Visit Reasons: 24 wk ob Acid Tester Required: No Is patient in pain?: No [...] 4 current occupational status: employed current occupation: [facility] [employer] [employer] Registration PRN current occupational exposures/hazards: No pets [...] physical activity do you participate in: none suraj/oriental orthodox: Anglican seatbelt use: always do you feel safe at home: Yes 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 Date Name GA/Weeks Outcome Route Bth Weight Gen Labor Lgth Anes thes ia Del Locatn Provider FOB 04/05/18 Vinsen 41 live - full term 9#7oz Male 26 hrs epid ural [facility] Katkeily Madsen Alvarez 11/01/19 10 spontaneous 08/10/20 Lakisha 37 live - full term 5#14oz Female 10 HR epid ural [facility] Jenni Pino 08/10/20 [place] 37 live - full term 6#4oz Male 10 HR epid ural [facility] Jenni Pino 03/19/24 Elaine 39 live - full term 8lbs 2oz Female [facility] Dr. Gleason Delivery Date: 04/05/18 Last Updated [...] no vb/lof/ct x. cyst is bothersome again. [facility] scheduled KW- no vb/lof/ctx. cyst is b othersome again discussed with SM. [facility] scheduled 10/15/24 -?-?--?-?-?-?-?-?-?-?-?-?- 16w 5d 200 [...] Movement Monitoring, Signs and Symptoms of Preeclampsia, Banks Education and Family Medical Leave or Disability [...] Cosigner Signature: Date (if applicable) CC: ~ [facility] [employer] Work Phone: 1(976) 285-683605-01-2025 Evaluation note* Diagnosis Onset Date Resolution Status [...] 28am Inclusion cyst of vulva acute M 2024 9:28am Lymphocytic colitis acute November 072024 [...] December 04, 2024 2:48pm Gestational hypertension acute May 28th, 2025 2:48pm Hemorrhoids acute December 04 2:48pm History [...] affecting in first trimester, acute January 03, 2:52pm Supervision of high-risk acute January 03, [...] in prior , currently acute ly 2024 10:41am Hx of twin in [...] pregnancies affecting in first trimester, acute January 29 025 9:53am Supervision of high-risk acute January 29, 2025 9:53am Chronic anemia chronic January 29, 2025 9:53am Contraction, Romero Osman acute February 07, 2025 11:50am Hx of pre-eclampsia in prior , currently acute Au 2024 11:50am Abdominal pain acute February 3:56pm Abnormal glucose affecting acute February 13, 2025 3:56pm Advanced maternal age in multigravida acute February 13, 2025 3:56pm Contraction, [place] acute February 13, 2025 3:56pm Gestational hypertension acute February 13, 2025 3:56pm Hemorrhoids acute February 13 3:56pm History of miscarriage, currently acute February 13 3:56pm Hx of pre-eclampsia in prior , currently acute Au 2024 3:56pm Hx of twin in prio r acute February 13, 2025 3:56pm Inclusion cyst of vulva acute A ugust 2024 3:56pm LGA (large for gestational a ge) fetus acute February 13, 2025 3:56pm Lymphocytic colitis acute Augus t 2024 3:56pm Obesity affecting acute February 13, 2025 3:56pm Pelvic floor weakness in female acut e February 13, 2025 3:56pm Perianal candidiasis acute Augu st 2024 3:56pm acute February 13 3:56pm Rectal pain acute February 13 025 3:56pm Short interval between pregnancies affecting in first trimester, acute February 13, 2025 3:56pm Supervision of high-risk acute February 13, 2025 3:56pm Chronic anemia chronic February 3:56pm [facility] Work Phone: 1(449) 140-759905-01-2025 Evaluation note* Diagnosis Onset Date Resolution Status Admit Date Abdominal pain acute November 07, 2 025 [...] 28am Chronic anemia chronic November 07, 9:28am Advanced maternal age (AMA) in deleted [...] pregnancies affecting in first trimester, acute January 29 9:53am Supervision of high-risk acute January 29, 2025 9:53am Chronic anemia chronic January 29, 2025 9:53am Contraction, [place]man acute February 07, 2025 11:50am Hx of pre-eclampsia in prior , currently acute Au 2024 11:50am Abdominal pain acute February 3:56pm Abnormal glucose affecting acute February 13, 2025 3:56pm Advanced maternal age in multigravida acute February 13, 2025 3:56pm Contraction, [place] acute February 13, 2025 3:56pm Gestational hypertension acute February 13, 2025 3:56pm Hemorrhoids acute February 13, 2 025 3:56pm History of miscarriage, currently acute February 13 025 3:56pm Hx of pre-eclampsia in prior , currently acute Au 2024 3:56pm Hx of twin in prio r acute February 13, 2025 3:56pm Inclusion cyst of vulva acute A ugust 2024 3:56pm LGA (large for gestational a ge) fetus acute February 13, 2025 3:56pm Lymphocytic colitis acute Augus t 2024 3:56pm Obesity affecting acute February 13, 2025 3:56pm Pelvic floor weakness in female acut e February 13, 2025 3:56pm Perianal candidiasis acute 2024 3:56pm acute February 13 3:56pm Rectal pain acute February 13 3:56pm Short interval between pregnancies affecting in first trimester, acute February 13, 2025 3:56pm Supervision of high-risk acute February 13, 2025 3:56pm Chronic anemia chronic February 3:56pm Abdominal pain acute February 9:28pm Abnormal glucose affecting acute February 14, 2025 9:28pm Advanced maternal age in multigravida acute February 14, 2025 9:28pm Contraction, Romero Osman acute February 14, 2025 9:28pm Decreased movement acute February 14, 2025 9:28pm Gestational hypertension acute February 14, 2025 9:28pm Hemorrhoids acute February 14 9:28pm History of miscarriage, currently February 14 9:28pm Hx of pre-eclampsia in prior , currently 2024 9:28pm Hx of twin in prio r February 14, 2025 9:28pm Inclusion cyst of vulva acute A ug2024 9:28pm LGA (large for gestational a ge) fetus acute February 14, 2025 9:28pm Lymphocytic colitis acute Febus t 2024 9:28pm Obesity affecting acute February 14, 2025 9:28pm Pelvic floor weakness in female acut e February 14, 2025 9:28pm Perianal candidiasis acute 2024 9:28pm acute February 14 9:28pm Proteinuria affecting acut e February 14, 2025 9:28pm Rectal pain acute February 14 9:28pm Short interval between pregnancies affecting in first trimester, acute February 14, 2025 9:28pm Supervision of high-risk acute February 14, 2025 9:28pm Chronic anemia chronic February 9:28pm [facility] Work Phone: 1(902) 561-269605-01-2025 Evaluation note* Diagnosis Onset Date Resolution Status Admit Date Abdominal pain acute November 07, 2 025 [...] pregnancies affecting in first trimester, acute 2024 9:28am Supervision of high-risk acute November [...] 2:52pm Inclusion cyst of vulva acute J [facility] 2024 2:52pm Lymphocytic colitis acute January 03, 2025 2:52pm Obesity affecting acute January 03, 2025 2:52pm Pelvic floor weakness in female acute January 03, 2025 2:52pm Perianal candidiasis acute January 03, 2025 2:52pm acute January 03 2:52pm Rectal pain acute January 03 2:52pm Short interval between pregnancies affecting in first trimester, acute [facility] 2024 2:52pm Supervision of high-risk acute January [...] of pre-eclampsia in prior , currently acute [facility] 2024 10:41am Hx of twin in prio r acute January 13, 2025 1 0:41am Inclusion cyst of vulva acute J sunita 5 10:41am Lymphocytic colitis acute January 13, 2025 10:41am Obesity affecting acute January 13, 2025 10:41am Pelvic floor weakness in female acute January 13, 2025 1 0:41am Perianal candidiasis acute January 13, 2025 10:41am acute January 13, 2025 10:41am Rectal pain acute January 13 10:41am Short interval between pregnancies affecting in first trimester, acute 2024 10:41am Supervision of high-risk acute January [...] pre-eclampsia in prior , currently acute 2024 9:53am Hx of twin in prio [...] prior , currently acute Au laura 2024 11:50am Abdominal pain acute February 3:56pm Abnormal glucose affecting acute February 13, 2025 3:56pm Advanced maternal age in multigravida acute February 13, 2025 3:56pm Contraction, Romero Osman acute February 13, 2025 3:56pm Gestational hypertension acute February 13, 2025 3:56pm Hemorrhoids acute February 13, 025 3:56pm History of miscarriage, currently acute February 13, 025 3:56pm Hx of pre-eclampsia in prior , currently acute 2024 3:56pm Hx of twin in prio r acute February 13, 2025 3:56pm Inclusion cyst of vulva acute A ugust 2024 3:56pm LGA (large for gestational age) fetus acute February 13, 2025 3:56pm Lymphocytic colitis acute Augus t 2024 3:56pm Obesity affecting acute February 13, 2025 3:56pm Pelvic floor weakness in female acute February 13, 2025 3:56pm Perianal candidiasis acute 2024 3:56pm acute February 13 3:56pm Rectal pain acute February 13 3:56pm Short interval between pregnancies affecting in first trimester, acute 2024 3:56pm Supervision of high-risk acute February 13, 2025 3:56pm Chronic anemia chronic February 3:56pm Abdominal pain acute February 9:28pm Abnormal glucose affecting acute February 14, 2025 9:28pm Advanced maternal age in multigravida acute February 14, 2025 9:28pm Contraction, [place] acute February 14, 2025 9:28pm Gestational hypertension acute February 14, 2025 9:28pm Hemorrhoids acute February 14 025 9:28pm History of miscarriage, currently acute February 14 025 9:28pm Hx of pre-eclampsia in prior , currently acute 2024 9:28pm Hx of twin in prio r acute February 14, 2025 9:28pm Inclusion cyst of vulva acute A ugust 2024 9:28pm LGA (large for gestational age) fetus acute February 14, 2025 9:28pm Lymphocytic colitis acute Augus t 2024 9:28pm Obesity affecting acute February 14, 2025 9:28pm Pelvic floor weakness in female acute February 14, 2025 9:28pm Perianal candidiasis acute Febu st 2024 9:28pm acute February 14 9:28pm Proteinuria affecting acute February 14, 2025 9:28pm Rectal pain acute February 14 025 9:28pm Short interval between pregnancies affecting in first trimester, acute Au 2024 9:28pm Supervision of high-risk acute February 14, 2025 9:28pm Chronic anemia chronic February 9:28pm Decreased movement resolved February 14, 2025 9:28pm Abdominal pain acute February 2:24pm Abnormal glucose affecting acute February 18 2:24pm Advanced maternal age in multigravida acute February 18 2:24pm Contraction, [place] Osman acute February 18, 2025 2:24pm Gestational hypertension acute February 18, 2025 2:24pm Hemorrhoids acute February 18, 2025 2:24pm History of miscarriage, currently acute February 18, 2025 2:24pm Hx of pre-eclampsia in prior , currently acute 2024 2:24pm Hx of twin in prio r acute February 18 2:24pm Inclusion cyst of vulva acute A ugust 2024 2:24pm LGA (large for gestational age) fetus acute February 18 2:24pm Lymphocytic colitis acute Febus t 2024 2:24pm Obesity affecting acute February 18, 2025 2:24pm Pelvic floor weakness in female acute February 18 2:24pm Perianal candidiasis acute Febu st 2024 2:24pm acute February 18 025 2:24pm Proteinuria affecting acute February 18 2:24pm Rectal pain acute February 18, 2025 2:24pm Short interval between pregnancies affecting in first trimester, acute Au 2024 2:24pm Supervision of high-risk acute February 18 2:24pm Chronic anemia chronic February 2:24pm [facility] Work Phone: 1([phone]) 766-643005-01-2025 Evaluation note* Diagnosis Onset Date Resolution Status Admit Date Abdominal pain acute November 07, 2 025 9:28am Gestational hypertension acute November 07, 2024 9:28am Hemorrhoids acute November 07, 2024 9:28am History of miscarriage, currently acute November 07, 2024 9:28am Hx of pre-eclampsia in prior , currently acute y 2024 9:28am Hx of twin in [...] 28am Chronic anemia chronic November 07, 9:28am Advanced maternal age (AMA) in deleted November 07, 2024 9: 28am Abdominal pain acute December 04, 2024 2:48pm Gestational hypertension acute December 04, 2024 2:48pm Hemorrhoids acute December 04 2:48pm History of miscarriage, currently acute December 04 2:48pm Hx of pre-eclampsia in prior , currently acute y 2024 2:48pm Hx of twin in [...] of pre-eclampsia in prior , currently acute [facility] 2024 2:52pm Hx of twin in prio [...] between pregnancies affecting in first trimester, acute [facility] 2024 2:52pm Supervision of high-risk acute January [...] of pre-eclampsia in prior , currently acute [facility] 2024 10:41am Hx of twin in prio [...] between pregnancies affecting in first trimester, acute [facility] 2024 10:41am Supervision of high-risk acute January [...] between pregnancies affecting in first trimester, acute [facility] 2024 9:53am Supervision of high-risk acute January 29, 2025 9:53am Chronic anemia chronic January 29, 2025 9:53am Contraction, [place] Osman acute February 07, 2025 11:50am Hx of pre-eclampsia in prior , currently acute Au laura 2024 11:50am Abdominal pain acute February 3:56pm Abnormal glucose affecting acute February 13, 2025 3:56pm Advanced maternal age in multigravida acute February 13, 2025 3:56pm Contraction, [place] Osman acute February 13, 2025 3:56pm Gestational hypertension acute February 13, 2025 3:56pm Hemorrhoids acute February 13, 025 3:56pm History of miscarriage, currently acute February 13 025 3:56pm Hx of pre-eclampsia in prior , currently acute Au 2024 3:56pm Hx of twin in prio r acute February 13, 2025 3:56pm Inclusion cyst of vulva acute A ugust 2024 3:56pm LGA (large for gestational age) fetus acute February 13, 2025 3:56pm Lymphocytic colitis acute Augus t 2024 3:56pm Obesity affecting acute February 13, 2025 3:56pm Pelvic floor weakness in female acute February 13, 2025 3:56pm Perianal candidiasis acute Febu st 2024 3:56pm acute February 13 3:56pm Rectal pain acute February 13 025 3:56pm Short interval between pregnancies affecting in first trimester, acute Au 2024 3:56pm Supervision of high-risk acute February 13, 2025 3:56pm Chronic anemia chronic February 3:56pm Abdominal pain acute February 9:28pm Abnormal glucose affecting acute February 14, 2025 9:28pm Advanced maternal age in multigravida acute February 14, 2025 9:28pm Contraction, [place] acute February 14, 2025 9:28pm Gestational hypertension acute February 14, 2025 9:28pm Hemorrhoids acute February 14 025 9:28pm History of miscarriage, currently acute February 14 025 9:28pm Hx of pre-eclampsia in prior , currently acute 2024 9:28pm Hx of twin in prio r acute February 14, 2025 9:28pm Inclusion cyst of vulva acute A ug2024 9:28pm LGA (large for gestational age) fetus acute February 14, 2025 9:28pm Lymphocytic colitis acute Augus t 2024 9:28pm Obesity affecting acute February 14, 2025 9:28pm Pelvic floor weakness in female acute February 14, 2025 9:28pm Perianal candidiasis acute Febu st 2024 9:28pm acute February 14 9:28pm Proteinuria affecting acute February 14, 2025 9:28pm Rectal pain acute February 14 025 9:28pm Short interval between pregnancies affecting in first trimester, acute Au 2024 9:28pm Supervision of high-risk acute February 14, 2025 9:28pm Chronic anemia chronic February 9:28pm Decreased movement resolved February 14, 2025 9:28pm Abdominal pain acute February 2:24pm Abnormal glucose affecting acute February 18 2:24pm Advanced maternal age in multigravida acute February 18 2:24pm Contraction, [place] Osman acute February 18, 2025 2:24pm Gestational hypertension acute February 18, 2025 2:24pm Hemorrhoids acute February 18, 2025 2:24pm History of miscarriage, currently acute February 18, 2025 2:24pm Hx of pre-eclampsia in prior , currently acute 2024 2:24pm Hx of twin in prio r acute February 18 2:24pm Inclusion cyst of vulva acute A ug2024 2:24pm LGA (large for gestational age) fetus acute February 18 2:24pm Lymphocytic colitis acute 2024 2:24pm Obesity affecting acute February 18, 2025 2:24pm Pelvic floor weakness in female acute February 18 2:24pm Perianal candidiasis acute Febu st 2024 2:24pm acute February 18, 2 025 2:24pm Proteinuria affecting acute February 18 2:24pm Rectal pain acute February 18, 2025 2:24pm Short interval between pregnancies affecting in first trimester, acute 2024 2:24pm Supervision of high-risk acute February 18 2:24pm Chronic anemia chronic February 2:24pm Abdominal pain acute February 2:48pm Abnormal glucose affecting acute February 27 2:48pm Advanced maternal age in multigravida acute February 27 2:48pm Contraction, [place] Osman acute February 27, 2025 2:48pm Gestational hypertension acute February 27, 2025 2:48pm Hemorrhoids acute February 27, 2025 2:48pm History of miscarriage, currently acute February 27, 2025 2:48pm Hx of pre-eclampsia in prior , currently acute 2024 2:48pm Hx of twin in prio r acute February 27 2:48pm Inclusion cyst of vulva acute A ug2024 2:48pm LGA (large for gestational age) fetus acute February 27 2:48pm Lymphocytic colitis acute Augus t 2024 2:48pm Obesity affecting acute February 27, 2025 2:48pm Pelvic floor weakness in female acute February 27 2:48pm Perianal candidiasis acute Augu st 2024 2:48pm acute February 27, 2 025 2:48pm Proteinuria affecting acute February 27 2:48pm Rectal pain acute February 27, 2025 2:48pm Short interval between pregnancies affecting in first trimester, acute Au laura 2024 2:48pm Supervision of high-risk acute February 27 2:48pm Chronic anemia chronic February 2:48pm [place] [employer] Work Phone: 1(446) 337-128604-08-2025 Evaluation note* Diagnosis Onset Date Resolution Status [...] of pre-eclampsia in prior , currently acute y 2024 9:28am Hx of twin in [...] between pregnancies affecting in first trimester, acute y 2024 9:28am Supervision of high-risk acute November 07, 2024 9: 28am Chronic anemia chronic November 07 9:28am Advanced maternal age (AMA) in deleted [...] between pregnancies affecting in first trimester, acute [facility] 2024 2:52pm Supervision of high-risk acute January [...] of pre-eclampsia in prior , currently acute [facility] 2024 10:41am Hx of twin in prio [...] between pregnancies affecting in first trimester, acute [facility] 2024 9:53am Supervision of high-risk acute January 29, 2025 9:53am Chronic anemia chronic January 29, 2025 9:53am Contraction, [place] acute February 07, 2025 11:50am Hx of pre-eclampsia in prior , currently acute [facility] 2024 11:50am [facility] Work Phone: 1(706) 811-178103-31-2025 Evaluation note* Diagnosis Onset Date Resolution Status Admit Date Abdominal pain acute September 1:53pm Gestational hypertension acute October 07, 2024 1:53pm Hemorrhoids acute October 07 1:53pm History of miscarriage, currently acute October 07 1:53pm Hx of pre-eclampsia in prior , currently acute [facility] 2024 1:53pm Hx of twin in prio r acute October 07, 2024 1:53pm Inclusion cyst of vulva acute M 2024 1:53pm Lymphocytic colitis acute October 07, 2024 1:53pm Obesity affecting acute October 07, 2024 1:53pm Pelvic floor weakness in female acut e October 07, 2024 1:53pm Perianal candidiasis acute Saúl 2024 1:53pm acute October 07 1:53pm Rectal [...] October 15, 2024 12:44pm Abdominal pain acute May 1st, 2 025 9:28am Gestational hypertension acute November [...] 9: 28am Chronic anemia chronic November 07 9:28am Advanced maternal age (AMA) in deleted [...] Chronic anemia chronic January 13, 2025 10:41am [place] [employer] Work Phone: 1(773) 629-116703-31-2025 Evaluation note* Diagnosis Onset Date Resolution Status Admit Date Abdominal pain acute September 1:53pm Gestational hypertension acute October 07, 2024 1:53pm Hemorrhoids acute October 07 1:53pm History of miscarriage, currently acute October 07 1:53pm Hx of pre-eclampsia in prior , currently acute [facility] 2024 1:53pm Hx of twin in prio r acute October 07, 2024 1:53pm Inclusion cyst of vulva acute M [facility] 2024 1:53pm Lymphocytic colitis acute October [...] 2024 12:44pm Abdominal pain acute November 07 025 9:28am Gestational hypertension acute November 07, 2024 9:28am Hemorrhoids acute November 07, 2024 9:28am History of miscarriage, currently acute November 07, 2024 9:28am Hx of pre-eclampsia in prior , currently acute y 2024 9:28am Hx of twin in [...] affecting in first trimester, acute January 03, 2:52pm Supervision of high-risk acute January 03, [...] Chronic anemia chronic January 29, 2025 9:53am [facility] Work Phone: 1(331) 274-910403-04-2025 Evaluation note* Diagnosis Onset Date Resolution Status Admit Date Abdominal pain acute September 10, 2024 2:47pm Advanced maternal age (AMA) in acute September 10, 2024 2:47pm Gestational hypertension acute September 10, 2024 2:47pm Hemorrhoids acute September 10 2:47pm History of miscarriage, currently acute September 10 2:47pm Hx of pre-eclampsia in prior , currently acute [facility] 2024 2:47pm Hx of twin in prio r acute September 10, 2024 2:47pm Inclusion cyst of vulva acute 2024 2:47pm Lymphocytic colitis acute September 10, 2024 2:47pm Obesity affecting acute September 10, 2024 2:47pm Pelvic floor weakness in female acut e September 10, 2024 2:47pm Perianal candidiasis acute [facility] 2024 2:47pm acute September 10 2:47pm [...] 07, 2024 1:53pm Hemorrhoids acute October 07 2 025 1:53pm History of miscarriage, currently acute October 07 2 025 1:53pm Hx of pre-eclampsia in prior , currently acute [facility] 2024 1:53pm Hx of twin in prio r acute October 07, 2024 1:53pm Inclusion cyst of vulva acute M arch 2024 1:53pm Lymphocytic colitis acute October 07, 2024 1:53pm Obesity affecting acute October 07, 2024 1:53pm Pelvic floor weakness in female acut e October 07, 2024 1:53pm Perianal candidiasis acute Saúl 2024 1:53pm acute October 07 1:53pm Rectal [...] 9: 28am Inclusion cyst of vulva acute ay 2024 9:28am Lymphocytic colitis acute November [...] of pre-eclampsia in prior , currently acute y 2024 2:48pm Hx of twin in [...] Chronic anemia chronic December 04, 2024 2:48pm [facility] Work Phone: 1(410) 611-213403-04-2025 Evaluation note* Diagnosis Onset Date Resolution Status Admit Date Abdominal pain acute September 10, 2024 2:47pm Advanced maternal age (AMA) in acute September 10, 2024 2:47pm Gestational hypertension acute September 10, 2024 2:47pm Hemorrhoids acute September 10 2:47pm History of miscarriage, currently acute September 10 2:47pm Hx of pre-eclampsia in prior , currently acute [facility] 2024 2:47pm Hx of twin in prio [...] of pre-eclampsia in prior , currently acute [facility] 2024 1:53pm Hx of twin in prio [...] Chronic anemia chronic January 03, 2025 2:52pm [facility] Work Phone: 1(725) 891-301702-04-2025 Evaluation note* Diagnosis Onset Date Resolution Status [...] 3:04pm Inclusion cyst of vulva acute F ebru2024 3:04pm Lymphocytic colitis acute Febru david2024 3:04pm Obesity affecting acute August 13, 2024 3:04pm Pelvic floor weakness in female acute August 13 3:04pm Perianal candidiasis acute uary 2024 3:04pm acute August 13, 2024 3:04pm [...] of pre-eclampsia in prior , currently acute [facility] 2024 12:46pm Hx of twin [...] between pregnancies affecting in first trimester, acute [facility] 2024 12:46pm Supervision of high-risk acute August 26 025 12:46pm Chronic anemia chronic August 102024 12:46pm Abdominal pain acute September 10, 2024 2:47pm Advanced maternal age (AMA) in acute September 10, 2024 2:47pm Gestational hypertension acute September 10, 2024 2:47pm Hemorrhoids acute September 10 2:47pm History of miscarriage, currently acute September 10 2:47pm Hx of pre-eclampsia in prior , currently acute [facility] 2024 2:47pm Hx of twin in prio r acute September 10, 2024 2:47pm Inclusion cyst of vulva acute M [facility] 2024 2:47pm Lymphocytic colitis acute September 10, 2024 2:47pm Obesity affecting acute September 10, 2024 2:47pm Pelvic floor weakness in female acute September 10, 2024 2:47pm Perianal candidiasis acute Saúl 2024 2:47pm acute September 10 2:47pm Rectal pain acute September 10 2:47pm Short interval between pregnancies affecting in first trimester, acute [facility] 2024 2:47pm Supervision of high-risk acute September 10, 2024 2:47pm Chronic anemia chronic September 10, 2024 2:47pm Abdominal pain acute September 1:53pm Advanced maternal age (AMA) in acute October 07, 2024 1:53pm Gestational hypertension acute October 07, 2024 1:53pm Hemorrhoids acute October 07 025 1:53pm History of miscarriage, currently acute October 07 1:53pm Hx of pre-eclampsia in prior , currently acute [facility] 2024 1:53pm Hx of twin in prio r acute October 07, 2024 1:53pm Inclusion cyst of vulva acute M [facility] 2024 1:53pm Lymphocytic colitis acute October 07, 2024 1:53pm Obesity affecting acute October 07, 2024 1:53pm Pelvic floor weakness in female acute October 07, 2024 1:53pm Perianal candidiasis acute Saúl 2024 1:53pm acute October 07 1:53pm Rectal pain acute October 07 1:53pm Short interval between pregnancies affecting in first trimester, acute [facility] 2024 1:53pm Supervision of high-risk acute October [...] 9: 28am Inclusion cyst of vulva acute ay 2024 9:28am Lymphocytic colitis acute November 072024 9:28am Obesity affecting acute November 07, 2024 9:28am Pelvic floor weakness in female acute November 07, 2024 9: 28am Perianal candidiasis acute November 07, 2024 9:28am acute November 07, 2024 9:28am Rectal pain acute November 07, 2024 9:28am Short interval between pregnancies affecting in first trimester, acute 2024 9:28am Supervision of high-risk acute November [...] Chronic anemia chronic December 04, 2024 2:48pm [facility] Work Phone: 1(395) 530-543612-16-2024 Evaluation note* Diagnosis Onset Date Resolution Status [...] 3:04pm Inclusion cyst of vulva acute F ebru2024 3:04pm Lymphocytic colitis acute Febru david2024 3:04pm Obesity affecting acute August 13, 2024 3:04pm Pelvic floor weakness in female acute August 13 3:04pm Perianal candidiasis acute Febr uary 2024 3:04pm acute August 13, 2024 3:04pm [...] of pre-eclampsia in prior , currently acute [facility] 2024 12:46pm Hx of twin in prio r acute August 26 025 12:46pm Inclusion cyst of vulva acute F ebruary 2024 12:46pm Lymphocytic colitis acute Febru david 2024 12:46pm Obesity affecting acute August 26, 2024 12:46pm Pelvic floor weakness in female acute August 26 025 12:46pm Perianal candidiasis acute Febr uary 2024 12:46pm acute August 26, 2024 12:46pm Rectal pain acute August 12:46pm Short interval between pregnancies affecting in first trimester, acute [facility] 2024 12:46pm Supervision of high-risk acute August 26 12:46pm Chronic anemia chronic August 102024 12:46pm Abdominal pain acute September 10, 2024 2:47pm Advanced maternal age (AMA) in acute September 10, 2024 2:47pm Gestational hypertension acute September 10, 2024 2:47pm Hemorrhoids acute September 10 2:47pm History of miscarriage, currently acute September 10 2:47pm Hx of pre-eclampsia in prior , currently acute [facility] 2024 2:47pm Hx of twin in prio [...] between pregnancies affecting in first trimester, acute [facility] 2024 2:47pm Supervision of high-risk acute September 10, 2024 2:47pm Chronic anemia chronic September 10, 2024 2:47pm [facility] Work Phone: 1(368) 332-471012-16-2024 Evaluation note* Diagnosis Onset Date Resolution Status [...] 3:04pm Inclusion cyst of vulva acute F ebru2024 3:04pm Lymphocytic colitis acute Febru david2024 3:04pm Obesity affecting acute August 13, 2024 3:04pm Pelvic floor weakness in female acute August 13 3:04pm Perianal candidiasis acute Febr ua2024 3:04pm acute August 13, 2024 3:04pm Rectal [...] pre-eclampsia in prior , currently acute [facility] 2024 12:46pm Hx of twin in prio [...] between pregnancies affecting in first trimester, acute [facility] 2024 12:46pm Supervision of high-risk acute August 26 025 12:46pm Chronic anemia chronic August 102024 12:46pm Abdominal pain acute September 10, 2024 2:47pm Advanced maternal age (AMA) in acute September 10, 2024 2:47pm Gestational hypertension acute September 10, 2024 2:47pm Hemorrhoids acute September 10 2:47pm History of miscarriage, currently acute September 10 2:47pm Hx of pre-eclampsia in prior , currently acute [facility] 2024 2:47pm Hx of twin in prio r acute September 10, 2024 2:47pm Inclusion cyst of vulva acute M [facility] 2024 2:47pm Lymphocytic colitis acute September 10, 2024 2:47pm Obesity affecting acute September 10, 2024 2:47pm Pelvic floor weakness in female acute September 10, 2024 2:47pm Perianal candidiasis acute Saúl 2024 2:47pm acute September 10 2:47pm Rectal pain acute September 10 2:47pm Short interval between pregnancies affecting in first trimester, acute [facility] 2024 2:47pm Supervision of high-risk acute September 10, 2024 2:47pm Chronic anemia chronic September 10, 2024 2:47pm Abdominal pain acute September 1:53pm Advanced maternal age (AMA) in acute October 07, 2024 1:53pm Gestational hypertension acute October 07, 2024 1:53pm Hemorrhoids acute October 07 025 1:53pm History of miscarriage, currently acute October 07 1:53pm Hx of pre-eclampsia in prior , currently acute [facility] 2024 1:53pm Hx of twin in prio r acute October 07, 2024 1:53pm Inclusion cyst of vulva acute M arch 2024 1:53pm Lymphocytic colitis acute October 07, 2024 1:53pm Obesity affecting acute October 07, 2024 1:53pm Pelvic floor weakness in female acute October 07, 2024 1:53pm Perianal candidiasis acute Saúl 2024 1:53pm acute October 07 1:53pm Rectal pain acute October 07 1:53pm Short interval between pregnancies affecting in first trimester, acute [facility] 2024 1:53pm Supervision of high-risk acute October [...] Chronic anemia chronic October 15, 2024 12:44pm [facility] Work Phone: 1(783) 924-657412-03-2024 [facility]11-03-2023 NoteHNO ID: [id number] Author: Kelly Calabrese PA-C Service: ? Author Type: Physician Wood Strip Block Floor Installer Type: Progress Notes Filed: 05/12/2023 2:41 PM Note Text: Kelly Calabrese PA-C Department of Orthopaedics Orthopaedics [address] [address] Dept: [phone] May 12, 2023 SUBJECTIVE: CHIEF COMPLAINT: Established [...] acute abnormality. Full imaging report available in [facility]. ASSESSMENT: S86.812A Strain of calf muscle, left, initial encounter (primary encounter diagnosis) PLAN: Reviewed images taken today. Recommendation for calf strain is physical therapy and activity modification as needed. Patient agreeable with plan and will follow up in 8 weeks. FOLLOW UP INSTRUCTIONS: 8 weeks IMAN [facility]11-03-2023 NoteHNO ID: [id number] Author: Rhonda Hackett Tech Service: ? Author Type: Steamer Operator Type: Progress Notes Filed: 05/12/2023 12:33 PM [...] BY: Maggy Lim May 12, 2023 12:32 PMSalem Regional Medical [id number] History of Present illness Narrative* Kelly Calabrese PA-C - 05/12/2023 10:51 AM EDT Kelly Calabrese PA-C Department of Orthopaedics Orthopaedics [address] [place] [address] Dept: [phone] May 12, 2023 SUBJECTIVE: CHIEF COMPLAINT: Established [...] acute abnormality. Full imaging report available in [facility]. ASSESSMENT: S86.812A Strain of calf muscle, left, initial encounter (primary encounter diagnosis) PLAN: Reviewed images taken today. Recommendation for calf strain is physical therapy and activity modification as needed. Patient agreeable with plan and will follow up in 8 weeks. FOLLOW UP INSTRUCTIONS: 8 weeks Kelly Calabrese PA-C documented in this encounterPomerene Hospital11-03-2023 History of Present illness Narrative* Rhonda [...] 12, 2023 12:32 PM documented in this encounterPomerene Hospital08-25-2023 NotePap Smear Specimen AdequacyAugus2022 11:39amComment.Satisfactory for evaluation. Endocervical and/or squamous metaplasticcells (endocervical component)are present.[facility] INTER[facility]ACED A#[id number] Regional Medical Center on above: Satisfactory for evaluation. Endocervical and/or squamous metaplasticcells (endocervical component)are present.03-03-2023 NotePap Smear Specimen Adequacy March 03, 2023 10:39amComment.Satisfactory for evaluation. Endocervical and/or squamous metaplasticcells (endocervical component)are present.[facility] INTERFACED A#[id number]. [facility] HospitalComhawthorn center on above:Satisfactory for evaluation. Endocervical and/or squamous metaplasticcells (endocervical component)are present.03-01-2023 NoteHNO ID: [id number] Author: Cathryn Morrell, DO Service: ? Author [...] answered. Follow up prn Cathryn Morrell D.O. M.P.H.[facility]08-23-2023 NoteHNO ID: [id number] Author: Sydni Ring RT(R) Service: Radiology Author [...] BY: RT Aries(Brian) March 01, 2023 9:50 AMSalem Regional Medical [id number] History of Present illness Narrative* Sydni Ring [...] 01, 2023 9:50 AM documented in this encounterPomerene Hospital06-21-2023 NoteHNO ID: [id number] Author: Cathryn Morrell, DO Service: ? Author [...] agreement of plan. All questions answered. Cathryn LopezP.H.[facility]06-21-2023 History of Present illness Narrative* Cathryn Morrell, [...] Cathryn Morrell D.O. M.P.H. documented in this encounterPomerene Hospital06-01-[address]o [facility] December 08, 2022 1:33pm Note Date/Time December 08, 2022 9:03a [facility] Medical Records Department [address] [place] [address] Emergency Department Summary 12/08/22 MR#: [id number] Acct: [id number] Name: MANDI VALENTE Rep #:[id number] : [...] immune issues. No trouble swallowing. No headache. PFSH PFS Medical History Allergic dermatitis Anal fissure Chronic [...] for 4 days (days 2-5) PO vitamin I60-bynbg acid 1-0.8 mg Tablet 1 tab PO DAILY Primary Care Provider: Cholo Smith Referrals: Cholo Smith, [Primary Care Provider] - 2 Days for wound check Disposition Disposition: Home, Self Care What to do if you have Problems For any increased pain, shortness of breath, bleeding, nausea or vomiting, chestpain, or any unexpected problems, contact your Primary Care Provider. Call [facility] ([phone]) or report to the closest Emergency Room. Call 911 if necessary. 12/08/22 1333 <Electronically signed by Santi Pelayo MD> Cosigner Signature (if applicable): CC: Dr. Cholo Smith, ~ Signed [facility] Work Phone: 1(964) 397-162705-15-2023 NoteHNO ID: [id number] Author: Pierre Hicks PA-C Service: ? Author Type: Physician Wood Strip Block Floor Installer Type: Progress Notes Filed: 11/21/2022 10:28 AM [...] Follow up in 4 weeks with IMAN [facility]05-03-2023 Miscellaneous Notes* Telephone Encounter - Rhonda Sow [...] have questions, patient can be reached at [phone] documented in this encounterPomerene Hospital05-02-2023 NoteHNO ID: [id number] Author: Xochitl Conti APRN.CRNA Service: Anesthesiology Author Type: Nurse Salesperson [employer] Type: Anesthesia Procedure Notes Filed: 11/08/2022 11:43 AM Note Text: ANESTHESIOLOGY PROCEDURE NOTE Airway General Information Procedure Start Time/Medication Administration: 11/08/2022 11:18 AM Patient location during procedure: OR Timeout Performed Pre-procedure: timeout performed Consent Obtained: Yes 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 Author [...] treatment were discussed with (more content not included)...[facility]04-26-2023 History of Present illness Narrative* Cathryn Morrell, [...] consent for surgical intervention. documented in this encounterPomerene Hospital04-21-2023 History and physical note * Stefany [...] fevers. Neuro: No history of TIA's, stroke, AUXILIARY EQUIPMENT OPERATOR tumor, impaired sensorium, hemiplegia, paraplegia or quadraplegia. No neurological symptoms or problems. Respiratory: No history of current cough or dyspnea, or pneumonia in the past 6 weeks. No history of respiratory/pulmonary symptoms or problems. Cardiovascular: No history of HTN requiring medication, no history of angina, CHF, GA, cardiac surgery or stents. Denies rest pain, gangrene or revascularization/amputation for PVD. No history of cardiovascular symptoms or problems. GI: No history of GI symptoms or problems. No history of esophageal varices, recent ascites, or ETOH greater than 2 drinks per day. : No history of dysuria, frequency or incontinence,, stones or chronic kidney disease AIRPLANE RENTAL CLERK: Negative for abnormal vaginal bleeding, abnormal vaginal [...] 2022 TIME: 8:32 AM documented in this encounterPomerene Hospital04-21-2023 Instructions* Patient Instructions* Stefany De La Torre PA-C - 10/28/2022 8:33 AM EDT PATIENT PREOPERATIVE INSTRUCTIONS Cathryn Morrell,* has scheduled you for your procedure at this surgery center: [facility]: [phone] -- [address] [place] [address]. Please read below carefully for your personalized [...] Procedures: - YOU MUST HAVE A RESPONSIBLE PARING MACHINE OPERATOR TAKE YOU HOME. A KETTLE HAND OR EDGE INKER HEELS CANNOT BE MADE A RESPONSIBLE PARING MACHINE OPERATOR. - We recommend that a responsible person [...] Advance Directive, please fax a copy to [phone] or email to for it to be [...] De La Torre PA-C documented in this encounterPomerene Hospital03-27-2023 Discharge summary Author Hodan Ling [facility] October 03, 2022 7:20am Note Date/Time October 03, 2022 7:[address] [facility] Physical Therapy Health[address] [place] [address] / REHABILITATION SERVICES DISCHARGE SUMMARY MR#: [id number] Acct: [id number] Name: MANDI VALENTE Rep #: [id number] [...] please feel free to call me at [phone]. Thank you for the referral of thispatient. Sincerely, Hodan Ling, [place] Balance/Gait/Functional tests - Balance/Special Test Scores Lower Extremity Functional Score: 61 <Electronically signed by Hodan Ling DPT> 10/03/22 0720 CC: Dr. Cathryn Morrell DO; Dr. Cholo Smith DO ~ ELR Signed [facility] Work Phone: 1(731) 726-109803-10-2023 NoteHNO ID: [id number] Author: Cathryn Morrell DO Service: ? Author Type: Physician Type: Progress Notes Filed: 09/27/2022 2:02 PM Note Text: VIRTUAL VISIT PROGRESS NOTE This is a virtual visit using [employer] video visit. It required patient-provider interaction for [...] Signed: Mateo Aldana, at 10:11 EST , [facility] images PLAN: There are no Patient Instructions on file for this visit. I spent a total of 20 minutes on the date of the service which included preparing to see the patient, [id number] patient care, completing clinical documentation, obtaining and/or [...] visit. Either the patient or their legal nutrition representative has been informed of the risks and benefits of -- and alternatives to -- treatment through a remote evaluation and consents to proceed with the evaluation shazia (more content not included)...[facility]03-06-2023 Miscellaneous Notes* Telephone Encounter - Brionna Mendez - 09/12/2022 1:59 PM EST Patient is scheduled. documented in this encounterPomerene Hospital02-09-2023 NoteHNO ID: [id number] Author: Cathryn Morrell, DO Service: ? Author [...] post surgery and injection [facility] History of Present illness Narrative* Cathryn Morrell, [...] Follow up after mri documented in this encounterPomerene Hospital12-28-2022 NoteHNO ID: [id number] Author: Cathryn Morrell DO Service: ? Author Type: Physician Type: Progress Notes Filed: 07/06/2022 2:47 PM Note Text: Large Joint Arthro/Inj: R greater trochanteric bursa Informed Consent Consent Obtained: Verbal [place] Protocol A moment to CARE was completed. [...] Erythema: absent Sensation: norm (more content not included)...[facility] 07-06-2022 NoteHNO ID: [id number] Author: ALBA Hoskins Service: Radiology Author Type: [...] BY: ALBA Hoskins July 06, 2022 3:13 PMSalem [facility] [id number] History of Present illness Narrative* Cathryn Morrell, DO - 07/06/2022 12:53 PM ESTAssociated Order(s): Large Joint Arthro/Inj: R greater trochanteric bursa Post-Procedure Diagnose(s): Trochanteric bursitis of right hip; Iliotibial band syndrome of right side Images from the original note were not included. Large Joint Arthro/Inj: R greater trochanteric bursa Informed Consent Consent Obtained: Verbal [place] Protocol A moment to CARE was completed. [...] Erythema: absent Sensation: normal Pulse: present Comments: Arnie goel Assessment and Plan Radiographs: I have independently [...] plan. All questions answered. documented in this encounterPomerene Hospital12-28-2022 History of Present illness Narrative* Nida [...] 06, 2022 3:13 PM documented in this encounterPomerene Hospital10-13-2022 History of Present illness Narrative* Cathryn [...] side d/t throbbing/burning pain. documented in this encounterPomerene Hospital08-31-2022 History of Present illness Narrative* Cathryn [...] plan. All questions answered. documented in this encounterPomerene Hospital08-22-2022 History of Present illness Narrative* Nena [...] 28, 2022 2:50 PM documented in this encounterPomerene Hospital08-22-2022 Miscellaneous Notes* Telephone Encounter - Christy Marion - 02/28/2022 1:17 PM EDT Patient has been scheduled by LAURA BENTON [[id number]] * Telephone Encounter - Chritsy Marion - 02/28/2022 12:10 PM EDT Called patient to schedule DVT Ultrasound, patient wanted to try aldo, we cannot schedule for them so I have her the number to call to schedule. Patient will call back if she cannot get scheduled there, to get scheduled in [place]. documented in this encounterPomerene Hospital08-16-2022 History of Past illness Narrative* Problem Noted Date Resolved Date Trochanteric bursitis of right hip 02/22/2022 02/22/2022 It band syndrome, unspecified laterality 022 02/22/2022 documented as of this encounter (statuses as of 02/28/2022) [facility] of Past illness Narrative* Problem Noted Date Resolved Date Trochanteric bursitis of right hip 02/22/2022 02/22/2022 It band syndrome, unspecified laterality 022 02/22/2022 documented as of this encounter (statuses as of 03/01/2022) [facility] of Past illness Narrative* Problem Noted Date Resolved Date Trochanteric bursitis of right hip 02/22/2022 02/22/2022 It band syndrome, unspecified laterality 022 02/22/2022 documented as of this encounter (statuses as of 03/09/2022) [facility] of Past illness Narrative* Problem Noted Date Resolved Date Trochanteric bursitis of right hip 02/22/2022 02/22/2022 It band syndrome, unspecified laterality 022 02/22/2022 documented as of this encounter (statuses as of 04/21/2022) [facility] of Past illness Narrative* Problem Noted Date Resolved Date Trochanteric bursitis of right hip 02/22/2022 02/22/2022 It band syndrome, unspecified laterality 022 02/22/2022 documented as of this encounter (statuses as of 07/13/2022) [address]16-2022 History of Past illness Narrative* Problem Noted Date Resolved Date Trochanteric bursitis of right hip 02/22/2022 02/22/2022 It band syndrome, unspecified laterality 022 02/22/2022 documented as of this encounter (statuses as of 07/13/2022) [address]16-2022 History of Past illness Narrative* Problem Noted Date Resolved Date Trochanteric bursitis of right hip 02/22/2022 02/22/2022 It band syndrome, unspecified laterality 022 02/22/2022 documented as of this encounter (statuses as of 08/18/2022) [address]16-2022 History of Past illness Narrative* Problem Noted Date Resolved Date Trochanteric bursitis of right hip 02/22/2022 02/22/2022 It band syndrome, unspecified laterality 022 02/22/2022 documented as of this encounter (statuses as of 09/12/2022) [facility] of Past illness Narrative* Problem Noted Date Resolved Date Trochanteric bursitis of right hip 02/22/2022 02/22/2022 It band syndrome, unspecified laterality 022 02/22/2022 documented as of this encounter (statuses as of 09/26/2022) [facility] of Past illness Narrative* Problem Noted Date Resolved Date Trochanteric bursitis of right hip 02/22/2022 02/22/2022 It band syndrome, unspecified laterality 022 02/22/2022 documented as of this encounter (statuses as of 10/31/2022) [address]16-2022 History of Past illness Narrative* Problem Noted Date Resolved Date Trochanteric bursitis of right hip 02/22/2022 02/22/2022 It band syndrome, unspecified laterality 022 02/22/2022 documented as of this encounter (statuses as of 11/08/2022) [address]16-2022 History of Past illness Narrative* Problem Noted Date Resolved Date Trochanteric bursitis of right hip 02/22/2022 02/22/2022 It band syndrome, unspecified laterality 022 02/22/2022 documented as of this encounter (statuses as of 12/23/2022) [facility] illness Narrative* Problem Noted Date Resolved Date Trochanteric bursitis of right hip 02/22/2022 02/22/2022 It band syndrome, unspecified laterality 022 02/22/2022 documented as of this encounter (statuses as of 12/28/2022) [facility] illness Narrative* Problem Noted Date Diagnosed Date Resolved Date Trochanteric bursitis of right hip 02/22/2022 02/22/2022 It band syndrome, unspecified laterality 02/07/2022 02/22/2022 documented as of this encounter (statuses as of 05/13/2023) [facility] Miscellaneous Notes* Telephone Encounter - Brionna Mendez - 01/28/2022 3:11 PM EDT Patient had MRI done 12/08/21. * Telephone Encounter - Jessica Contreras - 01/28/2022 11:38 AM EDT Please contact the patient to schedule an mri prior to her surgery date of 02/22/22. documented in this encounterPomerene Hospital07-15-2022 History of Present illness Narrative* Cathryn Morrell DO - 01/21/2022 9:35 AM EDT Images [...] films and my findings are the same. [facility] Imaging Services [address] [place] [address] Lower Ext Joint Only (Routine) MR#: [id number] Acct: [id number] Name: MANDI VALENTE Rep #: [id number] : 1990 F 31 From: Mateo Aldana MD PCP: Dr. Cholo Smith, DO Status: REG CLI Study: Lower Ext Joint Only (Routine) Date of Exam: 0 12/31/21 Exam# [id number] Ordering Dr: Cathryn Morrell STUDY: MRI RIGHT [...] consent for surgical intervention. documented in this encounterPomerene Hospital06-08-2022 Miscellaneous Notes* Telephone Encounter - Brionna Mendez - 12/15/2021 1:50 PM EDT I called and spoke with patient, she wants to call her insurance to see if she met her deductible because she works at [employer] and gets a discount there, vs getting the MRI done at a CC facility. * Telephone Encounter - Jessica Contreras - 12/15/2021 10:40 AM EDT Please contact the patient to have her mri scheduled with [facility]. Looks like she may have it scheduled at [facility]. It would benefit her to have it here more so the results and images are readily available for the surgeon yet it is still in her area. documented in this encounterPomerene Hospital06-01-2022 History of Present illness Narrative* Cathryn [...] treatment plan as discussed. documented in this encounterPomerene Hospital06-01-2022 Miscellaneous Notes* Allied Health - Amina Osei RT(R) - 12/08/2021 2:30 PM EDT Radiology Service [...] 08, 2021 3:18 PM documented in this encounterPomerene HospitalChi complaint+Reason for visit Narrative* Chief Complaint COVID-19 MASTODYNIA Rash COVERING BODY Rash TROCHANTERIC BURSITIS RIGHT HIP/RX HERE TROCHANTERIC BURSITIS OF RIGHT HIP Reason for Visit Allergic dermatitis Rash [facility] Work Phone: Evaluation note* Diagnosis Hip pain- Primary Pain in joint, pelvic region and thigh Pain in hip Pain in joint, pelvic region and thigh Trochanteric bursitis of right hip Enthesopathy of hip region Iliotibial band syndrome of right side Other disorder of muscle, ligament, and fascia documented in this encounter [facility] HospitalEvaluation note* Diagnosis Pain Generalized pain documented in this encounter [facility] HospitalEvaluation [facility]* Diagnosis Onset Date Resolution Status Constipation acute Lymphocytic colitis acute Trochanteric bursitis of right hip acute Back pain noneactive Trochanteric bursitis of right hip acute [facility] Work Phone: Evaluation note* Diagnosis Iliotibial band syndrome of right side- Primary Other disorder of muscle, ligament, and fascia Pain in hip Pain in joint, pelvic region and thigh Trochanteric bursitis of right hip Enthesopathy of hip region documented in this encounter [facility] HospitalEvaluation [facility]* Diagnosis Right calf pain documented in this encounter [facility]* Diagnosis Trochanteric bursitis of right hip- Primary Enthesopathy of hip region Iliotibial band syndrome of right side Other disorder of muscle, ligament, and fascia [facility] Diagnosis Trochanteric bursitis of right hip- Primary Enthesopathy of hip region Iliotibial band syndrome of right side Other disorder of muscle, ligament, and fascia documented [facility] this [facility]* Diagnosis Trochanteric bursitis of right hip- Primary Enthesopathy of hip region Iliotibial band syndrome of right side Other disorder of muscle, ligament, and fascia documented in this encounter [facility]* Diagnosis Trochanteric bursitis of right hip- Primary Enthesopathy of hip region documented [facility] this encounter [facility]* Diagnosis Onset Date Resolution Status Allergic dermatitis acute Rash noneactive [facility] Work Phone: Evaluation note* Diagnosis Trochanteric bursitis of right hip- Primary Enthesopathy of hip region Iliotibial band syndrome of right side Other disorder of muscle, ligament, and fascia Trochanteric bursitis of right hip Enthesopathy of hip region Iliotibial band syndrome of right side Other disorder of muscle, ligament, and fascia documented in this encounter [facility]* Diagnosis Preop examination- Primary Preoperative examination, unspecified Trochanteric bursitis of right hip Enthesopathy of hip region Iliotibial band syndrome of right side Other disorder of muscle, ligament, and fascia documented [facility] this encounter [facility]* Diagnosis Trochanteric bursitis of right hip- Primary Enthesopathy of hip region Iliotibial band syndrome of right side Other disorder of muscle, ligament, and fascia documented in this encounter [facility]* Diagnosis Onset Date Resolution Status URI (upper respiratory infection) acute [facility] Work Phone: Evaluation note* Diagnosis S/P orthopedic surgery, follow-up exam- Primary Follow-up examination, following other surgery Trochanteric bursitis of right hip Enthesopathy of hip region Iliotibial band syndrome of right side Other disorder of muscle, ligament, and fascia documented in this encounter [facility]* Diagnosis Onset Date Resolution Status Acute bacterial sinusitis ac [place] [facility] Work Phone: Evaluation note* Diagnosis Strain of calf muscle, left, initial encounter- Primary documented [facility] this [facility]* Diagnosis Onset Date Resolution Status Acute bacterial sinusitis ac [place] Scabies acute [facility] Work Phone: Evaluation note* Diagnosis Onset Date Resolution Status AMA (advanced maternal age) multigravida 35+ acute External hemorrhoids acute History of miscarriage, currently acute Hx of pre-eclampsia in prior , currently acute Lower GI bleeding acute Lymphocytic colitis acute acute Supervision of high-risk acute Tilted uterus acute Chronic constipation chronic [facility] Work Phone: Evaluation note* Diagnosis Onset [...] colitis acute acute Supervision of high-risk acute [facility] Work Phone: Evaluation note* Diagnosis Pre-operative examination- Primary Preoperative examination, unspecified It band syndrome, unspecified laterality Class 1 obesity due to excess calories without serious comorbidity with body mass index (BMI) of 31.0 to 31.9 in adult Pain of left calf Pain in limb documented in this encounter [facility]* Diagnosis Pre-operative examination- Primary Preoperative examination, unspecified It band syndrome, unspecified laterality Class 1 obesity due to excess calories without serious comorbidity with body mass index (BMI) of 31.0 to 31.9 in adult Pain in left hip Pain in joint, pelvic region and thigh documented in this encounter [facility]* Diagnosis Pre-operative examination- Primary Preoperative examination, unspecified It band syndrome, unspecified laterality Class 1 obesity due to excess calories without serious comorbidity with body mass index (BMI) of 31.0 to 31.9 in adult Pain in right hip Pain in joint, pelvic region and thigh documented in this encounter [facility] HospitalHistory and physical note Author Linda Hammond [facility] Note Date/Time February 07, 2025 2:3 7pm [facility] Medical Records Department [address] [place] [address] OB Triage Physician Note 02/07/25 1433 MR#: [id number] Acct: [id number] Name: MANDI VALENTE Rep #:[id number] : 1990 34 From: Linda Hammond CNLinda PCP: Dr. Cholo Smith, DO Status:REG CLI Y Location: [place] [address]-1 HPI - General HPI Narrative MANDI VALENTE, [...] 4 current occupational status: employed current occupation: [employer] Registration PRN current occupational exposures/hazards: No pets [...] physical activity do you participate in: none suraj/oriental orthodox: Anglican seatbelt use: always do you feel safe at home: Yes additional social history: 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 Date Name GA/Weeks Outcome Route Bth Weight Infant Gen Labor Lgth Anesthesia Del Locatn Provider FOB 04/05/18 Vinsen 41 live - full term 9#7oz Male 26 hrs epid ural [employer] Shey Pino 11/01/19 10 spontaneous 08/10/20 Lakisha 37 live - full term 5#14oz Female 10 HR epid ural [employer] Jenni Pino 08/10/20 Abran 37 live - full term 6#4oz Male 10 HR epid ural [employer] Jenni Pino 03/19/24 Elaine 39 live - full term 8lbs 2oz Female [employer] Dr. Gleason Delivery Date: 04/05/18 Last Updated [...] no vb/lof/ct x. cyst is bothersome again. [facility] scheduled KW- no vb/lof/ctx. cyst is b othersome again discussed with . [facility] scheduled 10/15/24 -?-?-?-?-?-?-?-?-?-?-?-?- 16w 5d 200 [...] variability reactive no decelerations category I tracing [place]: irregular Contractions Assessment and plan: Reactive NST, reassuring maternal and status patient discharged to home to follow-up in office.. See problem list details for additional plan information. Charges/Coding Procedures Urinary/Genital 52xxx-59xxx: 07187-15 non-stress test Interp 02/07/25 1437 <Electronically signed by Linda douglas CNM> Date _ Linda Hammond CNM Cosigner Signature (if applicable): Date CC: ERI Hammond; Dr. Cholo Smith, DO ~ Signed [facility] Work Phone: Progress note Author Suyapa Godinez [facility] Note Date/Time January 13, 2025 11:06 am [facility] [address] [place] [address], [place] [address] OFFICE VISIT Date of Service: 01/13/25 MR#: [id number] Acct: [id number] Name: MANDI VALENTE Rep #: [id number] : 1990 Provider: ERI Godinez Age/Sex: 34/F Location: [facility] Status: Signed Intake Vital Signs 11/07/24 09:36 01/03/25 15:03 01/13/25 10:45 Height 5 ft 2 in 5 ft 2 in 5 ft 2 in Weight: 215 lb 8 oz BMI 39.4 BP 126/87 H Intake Visit Reasons: 30 wk ob Chief Complaint: 30wk ob Acid Tester Required: No Is patient in pain?: No [...] Rx Last Menstrual Period: 06/20/24 : No [facility] Medical History Seasonal allergies Hx of pre-eclampsia [...] 4 current occupational status: employed current occupation: [employer] Registration PRN current occupational exposures/hazards: No pets [...] physical activity do you participate in: none suraj/oriental orthodox: Anglican seatbelt use: always do you feel safe at home: Yes 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 Date Name GA/Weeks Outcome Route Bth Weight Infant Gen Labor Lgth Anesthesia Del Locatn Provider FOB 04/05/18 Vinsen 41 live - full term 9#7oz Male 26 hrs epid ural [employer] Shey Madsen Alvarez 11/01/19 10 spontaneous 08/10/20 Lakisha 37 live - full term 5#14oz Female 10 HR epid ural [employer] Jenni Pino 08/10/20 Abran 37 live - full term 6#4oz Male 10 HR epid ural [employer] Jenni Pino 03/19/24 Elaine 39 live - full term 8lbs 2oz Female [employer] Dr. Gleason Delivery Date: 04/05/18 Last Updated [...] Negative -?-?-?-?-?-?-?-?-?-?-?-?- Negative 180 -?-?-?-?-?-?-?-?-?-?-?-?- KW- no vb/cramprey ng. discussed starting atb and pt would [...] no vb/lof/ct x. cyst is bothersome again. [facility] scheduled KW- no vb/lof/ctx. cyst is b othersome again discussed with [facility]. [facility] scheduled 10/15/24 -?-?-?-?-?-?-?-?-?-?-?-?- 16w 5d 200 lb [...] on Elaine'-. requests IOL on this day. (17) Hx of twin in prior : Status: Acute Comment: Fraternal (18) History of miscarriage, currently : Status: Acute Orders: Orders POC Urinalysis 2 Dip (Clinic) Today 01/13/25 1106 <Electronically signed by Suyapa mujica CNM> Date _ Suyapa Godinez CNM Cosigner Signature: Date (if applicable) CC: ~ [facility] Work Phone: Progress note Author Suyapa Godinez [facility] Note Date/Time February 14, 2025 11: 34pm [facility] Medical Records Department [address] [place] [address] OB Triage Progress Note 02/14/25 2330 MR#: [id number] Acct: [id number] Name: MANDI VALENTE Rep #:[id number] : 1990 34 From: Suyapa Godinez CNM PCP: Dr. Cholo Smith, DO Status:REG CLI Y DOS: [facility] Notes Date of Service: 02/14/25 Progress Note: Patient presents for triage evaluation secondary to decreased movement at 34 weeks and slight RUQ pain. FHT: 120 Moderate variability reactive no decelerations category I tracing [place]: no Contractions Assessment and plan: pain resolved with tylenol, Reactive NST, No pre e sx, labs normal except PC ratio-will continue to monitor in office. IF BPP reassuring, plan to D/C home. See problem list details for additional plan information. Laboratory Studies: Laboratory Tests 02/14/25 02/14/25 Range/Units 22:20 22:00 WBC 9.2 (4.4-11.0) K/mm3 RBC 3.81 L (4.2-5.4) M/mm3 Hgb 11.3 L (12.0-15.0) g/dL Hct 33.1 L (37-47) % MCV 86.9 (81-99) fL MCH 29.7 (27.0-32.0) pg MCHC 34.1 (32-36) g/dL RDW Std Deviation 40.4 (35.1-43.9) fl RDW Coeff of Oneil 12.9 (11.6-14.6) % Plt Count 192 (150-450) K/mm3 MPV 11.0 (6.2-12.0) fl Immature Gran % (Auto) 0.500 (0.0-0.9) % Neut % (Auto) 72.0 H (47-70) % Lymph % (Auto) 18.0 L (19-41) % Dade % (Auto) 5.9 (0-10) % Eos % (Auto) 3.2 (0-5) % Baso % (Auto) 0.4 (0-1) % Absolute Neuts (auto) 6.6 (2.0-7.7) X10^3/uL Absolute Lymphs (auto) 1.66 (0.83-4.51) X10^3/uL Nucleated RBC % 0 (0-5) % Sodium 136 (133-145) mmol/L Potassium 3.5 (3.3-5.1) mmol/L Chloride 104 (98-108) mmol/L Carbon Dioxide 18.1 L (21.0-32.0) mmol/L Anion Gap 14 (5-15) BUN 5 (4-19) mg/dL Creatinine 0.45 L (0.70-1.20) mg/dL Estim Creat Clear Calc 190.12 (50-250) ml/min Est GFR (MDRD) Non-Af 128 (>60) BUN/Creatinine Ratio 11.3 (10-20) RATIO Glucose 89 (70-99) mg/dL Calcium 9.1 (7.6-11.0) mg/dL Total Bilirubin 0.17 (0.00-1.30) mg/dL AST 13 (<=31) U/L ALT 7 (<=34) U/L Alkaline Phosphatase 64 (35-104) U/L Total Protein 6.2 (5.9-8.4) g/dL Albumin 3.6 (3.5-5.0) g/dL Globulin 2.6 (2.2-4.2) g/dL Albumin/Globulin Ratio 1.4 (0.9-2.4) RATIO Lipase 23 (13-75) U/L Urine Color Yellow (Yellow) Urine Clarity Clear (Clear) Urine pH 6.5 (5.0 - 8.0) Ur Specific [place] 1.010 (1.002-1.030) Urine Protein Negative (Negative) mg/dl Urine Glucose (UA) Normal (Normal) mg/dl Urine Ketones Negative (Negative) mg/dl Urine Occult Blood Negative (Negative) /ul Urine Nitrite Negative (Negative) Urine Bilirubin Negative (Negative) mg/dL Urine Urobilinogen Normal (Normal) mg/dl Ur Leukocyte Esterase Negative (Negative) /ul Urine RBC 0 SEEN (0-5) /hpf Urine WBC 0-5 SEEN (0-5) /hpf Ur Squamous Epith Cells 0-5 SEEN (5-10) /hpf Urine Bacteria 2+ (None Seen) /hpf Urine Mucus 0 SEEN (<or=2+) /hpf U Random Total Protein 9.1 (0.0-12.0) mg/dL Urine Creatinine 18.30 L (28.00-217.00) mg/dL Protein/Creatinin Ratio 498 H (0-200) mg/g CRE Charges/Coding Multi Select Codes Visit Charges Office Visit/Consults: 87520 OV L3 Est 20min Urinary/Genital Urinary/Genital CPT Codes: 57468-12 non-stress test Interp Assessment & Plan (1) Proteinuria affecting : COMMENT: at 34 weeks-normal BP and rest of pre e labs. no pre e sx. (2) Contraction, Romero Osman: COMMENT: fingertip per nursing dilated with less intense/frequency in ctx. (3) LGA (large for gestational age) fetus: COMMENT: 32wk: EFW 69%, AC 97%: rpt 1 hr GCT/normal (4) Advanced maternal age in multigravida: (5) Abnormal glucose affecting : COMMENT: normal 3 hour (6) Short interval between pregnancies affecting in first trimester, antepartum: COMMENT: baby 4 months old when became with this gestation. (7) History of miscarriage, currently : (8) Decreased movement: COMMENT: reactive NST and BPP (9) Hx of twin in prior : COMMENT: Fraternal (10) Supervision of high-risk : COMMENT: PRR,, RAMSES 03/27/25, boy,PC Lakisha Underwood & Earnestine(Twins), Elaine Alvarez will be 39 weeks on Elaine's b-day. requests IOL on this day. (11) : QUALIFIERS: Weeks of gestation: 34 weeks Qualified Code(s): Z3A.34 - 34 weeks gestation of COMMENT: NIPT low risk, anatomy needs f/u views. (12) Obesity affecting : COMMENT: HgbA1c (13) Inclusion cyst of vulva: COMMENT: +actinomycis:4 wk of amoxil (14) Hx of pre-eclampsia in prior , currently : COMMENT: negative labs . bp stable in WP. headache resolved. (15) Abdominal pain: (16) Perianal candidiasis: (17) Rectal pain: (18) Pelvic floor weakness in female: (19) Chronic anemia: (20) Gestational hypertension: QUALIFIERS: Trimester: unspecified trimester Qualified Code(s): O13.9 - Gestational [-induced] hypertension without significant proteinuria, unspecified trimester COMMENT: resolved pp (21) Hemorrhoids: QUALIFIERS: Hemorrhoid type: unspecified Qualified Code(s): K64.9- Unspecified hemorrhoids (22) Lymphocytic colitis: 02/14/25 3023 <Electronically signed by Suyapa mujica CNM> Date _ Suyapa Garcia Signature (if applicable): Date CC: ERI Godinez; Dr. Cholo Smith, ~ Signed [facility] Work Phone: [facility] for referral (narrative)* Diagnostic Procedure Only (Routine) - Closed Specialty Diagnoses / Procedures Referred By Contac t Referred To Contact XR IMAGING Diagnoses Pain Procedures XR HIP GENERAL 3V PELV/AP/LAT RIGHT RADEX HIP UNILATERAL WITH PELVIS 2-3 VIEWS Cathryn Morrell DO [address] [place] [address] Xr Imaging Referral ID Status Reason Start Date Expiration Date V isits Requested Visits Authorized [id number] Closed Auto-Generate d Referral 12/02/2021 01/01/2023 1 1 [facility] for referral (narrative)* Diagnostic Procedure Only (Urgent) - Closed Specialty Diagnoses / Procedures Referred By Contac t Referred To Contact US IMAGING Diagnoses Right calf pain Procedures US DVT LOWER RT DUP-SCAN XTR VEINS UNILATERAL/LIMITED STUDY Kelly Johnson PA-C [address] [place] [address] Us Imaging Referral ID Status Reason Start Date Expiration Date V isits Requested Visits Authorized [id number] Closed Auto-Generate d Referral 02/28/2022 03/30/2023 1 1 [facility] for referral (narrative)* Diagnostic Procedure Only (Routine) - Closed Specialty Diagnoses / Procedures Referred By Contac t Referred To Contact XR IMAGING Diagnoses Pain of left calf Procedures XR TIBIA FIBULA 2V AP/LAT LEFT RADIOLOGIC EXAMINATION TIBIA & FIBULA 2 VIEWS Kelly Calabrese PA-C [address] [place] [address] [place] [address] Referral ID Status Reason Start Date Expiration Date V isits Requested Visits Authorized [id number] Closed Auto-Generate d Referral 05/08/2023 06/06/2024 1 1 [facility] for referral (narrative)* Diagnostic Procedure Only (Routine) - Closed Specialty Diagnoses / Procedures Referred By Contac t Referred To Contact XR IMAGING Diagnoses Pain in left hip Procedures XR HIP GENERAL 3V PELV/AP/LAT LEFT RADEX HIP UNILATERAL WITH PELVIS 2-3 VIEWS Kelly Calabrese PA-C [address] [place] [address] [place] [address] Referral ID Status Reason Start Date Expiration Date V isits Requested Visits Authorized [id number] Closed Auto-Generate d Referral 02/08/2023 03/09/2024 1 1 [facility] for referral (narrative)* Diagnostic Procedure Only (Routine) - Closed Specialty Diagnoses / Procedures Referred By Contac t Referred To Contact XR IMAGING Diagnoses Pain in right hip Procedures XR HIP GENERAL 3V PELV/AP/LAT RIGHT RADEX HIP UNILATERAL WITH PELVIS 2-3 VIEWS Cathryn Morrell DO [address] [place] [address] [place] [address] Referral ID Status Reason Start Date Expiration Date V isits Requested Visits Authorized [id number] Closed Auto-Generate d Referral 06/28/2022 07/28/2023 1 1 [facility] for referral (narrative)No reason for referral [facility] visit Narrative* Diagnostic Procedure Only (Routine) - Closed Specialty Diagnoses / Procedures Referred By Lingac t Referred To Contact XR IMAGING Diagnoses Pain of left calf Procedures XR TIBIA FIBULA 2V AP/LAT LEFT RADIOLOGIC EXAMINATION TIBIA & FIBULA 2 VIEWS Kelly Calabrese PA-C [address] [place] [address] [place] [address] Referral ID Status Reason Start Date Expiration Date V isits Requested Visits Authorized [id number] Closed Auto-Generate d Referral 05/08/2023 06/06/2024 1 1 [facility] for visit Narrative* Diagnostic Procedure Only (Routine) - Closed Specialty Diagnoses / Procedures Referred By David t Referred To Contact XR IMAGING Diagnoses Pain in left hip Procedures XR HIP GENERAL 3V PELV/AP/LAT LEFT RADEX HIP UNILATERAL WITH PELVIS 2-3 VIEWS Kelly Calabrese PA-C [address] [place] [address] [place] [address] Referral ID Status Reason Start Date Expiration Date V isits Requested Visits Authorized [id number] Closed Auto-Generate d Referral 02/08/2023 03/09/2024 1 1 [facility] for visit Narrative* Diagnostic Procedure Only (Routine) - Closed Specialty Diagnoses / Procedures Referred By David t Referred To Contact XR IMAGING Diagnoses Pain in right hip Procedures XR HIP GENERAL 3V PELV/AP/LAT RIGHT RADEX HIP UNILATERAL WITH PELVIS 2-3 VIEWS Cathryn Morrell DO [address] [place] [address] [place] [address] Referral ID Status Reason Start Date Expiration Date V isits Requested Visits Authorized [id number] Closed Auto-Generate d Referral 06/28/2022 07/28/2023 1 1 [facility] Reason for Referral Specialty Diagnoses / Procedures Referred By David t Referred To Contact MR IMAGING Diagnoses Pain in hip Procedures MRI HIP WO IVCON RT MRI ANY JT LOWER EXTREM W/O CONTRAST MATRL Ctahryn Morrell DO [address] [place] [address] Mr Imaging Referral ID Status Reason Start Date Expiration Date Visits Requested Visits Authorized [id number] Pending Review Auto-Generat ed Referral 12/08/2021 01/07/2023 1 1 Specialty Diagnoses / Procedures Referred By David t Referred To Contact [facility] Diagnoses Trochanteric bursitis of right hip Iliotibial band syndrome of right side Procedures CONSULT TO PHYSICAL THERAPY PHYSICAL THERAPY EVALUATION HIGH COMPLEX 45 MINS Cathryn Morrell, DO [address] [place] [address] [facility] [address] [address] Referral ID Status Reason Start Date Expiration Date Visits Requested Visits Authorized [id number] Pending Review Auto-Generat ed Referral 03/09/2022 03/09/2023 1 1 Referral ID Status Reason Start Date Expiration Date Visits Requested Visits Authorized [id number] Pending Review Auto-Generat ed Referral 04/21/2023 1 1 Specialty Diagnoses / Procedures Referred By David t Referred To Contact MR IMAGING Diagnoses Trochanteric bursitis of right hip Procedures MRI HIP WO IVCON RT MRI ANY JT LOWER EXTREM W/O CONTRAST MATRL Cathryn Morrell, [address] [place] [address] Mr Imaging Referral ID Status Reason Start Date Expiration Date Visits Requested Visits Authorized [id number] Pending Review Auto-Generat ed Referral 08/18/2022 09/17/2023 1 1 Specialty Diagnoses / Procedures Referred By David t Referred To Contact [facility] Diagnoses Strain of calf muscle, left, initial encounter Procedures CONSULT TO PHYSICAL THERAPY PHYSICAL THERAPY EVALUATION HIGH COMPLEX 45 MINS Kelly Calabrese PA-C [address] [place] [address] [facility] [address] [address] Referral ID Status Reason Start Date Expiration Date Visits Requested Visits Authorized [id number] Pending Review Auto-Generat ed Referral 05/12/2023 05/11/2024 [...] August 13, 2024 3:04pm Supervision of high-risk Tasneemu david 2024 3:04pm Chronic anemia August 13, [...] Obesity affecting October 15, 025 12:44pm Pelvic cramping October 15, 2024 [...] Abnormal glucose affecting Ti e 2024 2:52pm Advanced maternal age (AMA) in [...] affecting October 15, 2 025 12:44pm Pelvic floor weakness in female [...] 2025 2:52 pm Obesity affecting January 03 2:52pm Pelvic floor weakness in female December [...] 2025 2:52 pm Obesity affecting January 03 2:52pm Pelvic floor weakness in female December [...] 29, 2025 9:53 am Abnormal glucose affecting Matty y 2024 9:53am Advanced maternal age in multigravida Ju [...] anemia January 29, 2025 9:53 am Contraction, [place] Osman February 07, 2 025 11:50am Hx of pre-eclampsia in prior [...] 2025 2:52 pm Obesity affecting January 03, 025 2:52pm Pelvic floor weakness in female [...] 2025 9:53 am Obesity affecting January 29, 2 025 9:53am Pelvic floor weakness in female January 9:53am Perianal candidiasis January 29, 2025 9:5 3am January 29, 2025 9:53 am Rectal pain January 29, 2025 9:53 am Short interval between pregn ancies affecting in first trimester, January 29, 2025 9:53am Supervision of high-risk January 29, 2025 9:53am Chronic anemia January 29, 2025 9:53 am Contraction, [place] Osman February 07 025 11:50am Hx of pre-eclampsia in prior , currently February 07, 2025 11:50am Abdominal pain February 13, 2025 3:5 6pm Abnormal glucose affecting Aug ust 2024 3:56pm Advanced maternal age in multigravida Au laura 2024 3:56pm Contraction, [place] Osman February 13 025 3:56pm Gestational hypertension February 13 3:56pm Hemorrhoids [...] 13, 2025 3:56pm Supervision of high-risk Augus t 2024 3:56pm Chronic anemia February 13, 2025 3:5 6pm Chief Complaint Admit Date 20wk ob November [...] 2:3 3pm 34 wk ob *Doc Only [place] 7th, 2025 3:5 6pm ABDOMINAL PAIN AND DECREASED MOVEM ENT February 14, 2025 9:28pm ABDOMINAL PAIN AND DECREASED MOVEM ENT February 14, 2025 11:30pm Reason for Visit Admit Date Abdominal pain [...] 29, 2025 9:53 am Abnormal glucose affecting Matty y 2024 9:53am Advanced maternal age in multigravida Ju [...] 2025 9:53 am Contraction, Romero Osman February 07, 2 025 11:50am Hx of pre-eclampsia in prior , currently February 07, 2025 11:50am Abdominal pain February 13, 2025 3:5 6pm Abnormal glucose affecting Aug ust 2024 3:56pm Advanced maternal age in multigravida Au 2024 3:56pm Contraction, Romero Osman February 13, 2 025 3:56pm Gestational hypertension February 13 3:56pm Hemorrhoids [...] 13, 2025 3:56pm Supervision of high-risk Augus t 2024 3:56pm Chronic anemia February 13, 2025 3:5 6pm Abdominal pain February 14, 2025 9:2 8pm Abnormal glucose affecting Feb us2024 9:28pm Advanced maternal age in multigravida [facility] 2024 9:28pm Contraction, [place] Osman February 14, 9:28pm Decreased movement February 14 9:28pm Gestational hypertension February 14 9:28pm Hemorrhoids February 14, 2025 9:2 8pm History of miscarriage, currently pregna nt February 14, 2025 9:28pm Hx of pre-eclampsia in prior , currently February 14, 2025 9:28pm Hx of twin in prior February 14, 2025 9:28pm Inclusion cyst of vulva February 14, 2025 9:28pm LGA (large for gestational age) fetus [facility] 2024 9:28pm Lymphocytic colitis February 14, 2025 9:2 8pm Obesity affecting February 14, 2025 9:28pm Pelvic floor weakness in female February [id number] 9:28pm Perianal candidiasis February 14, 2025 9: 28pm February 14, 2025 9:2 8pm Proteinuria affecting February 142024 9:28pm Rectal pain February 14, 2025 9:2 8pm Short interval between pregn ancies affecting in first trimester, February 14, 2025 9:28pm Supervision of high-risk Augus t 2024 9:28pm Chronic anemia February 14, 2025 9:2 8pm Chief Complaint Admit Date 20wk ob November [...] *Doc Only February 13, 2025 3:5 6pm ABDOMINAL PAIN AND DECREASED MOVEM ENT February 14, 2025 9:28pm ABDOMINAL PAIN AND DECREASED MOVEM ENT February 14, 2025 11:30pm 34wk, possible Pre- E FU from WP February 18, 2025 2:24pm Reason for Visit Admit Date Abdominal pain [...] 9:53 am Contraction, Romero Osman February 07 025 11:50am Hx of pre-eclampsia in prior , currently February 07, 2025 11:50am Abdominal pain February 13, 2025 3:5 6pm Abnormal glucose affecting Feb us2024 3:56pm Advanced maternal age in multigravida [facility] 2024 3:56pm Contraction, [place] Osman February 13, 2 025 3:56pm Gestational hypertension February 13 3:56pm Hemorrhoids February 13, 2025 3:5 6pm History of miscarriage, currently pregna nt February 13, 2025 3:56pm Hx of pre-eclampsia in prior , currently February 13, 2025 3:56pm Hx of twin in prior February 13, 2025 3:56pm Inclusion cyst of vulva February 13, 2025 3:56pm LGA (large for gestational age) fetus [facility] 2024 3:56pm Lymphocytic colitis February 13, 2025 [...] Chronic anemia February 13, 2025 3:5 6pm Abdominal pain February 14, 2025 9:2 8pm Abnormal glucose affecting Feb us2024 9:28pm Advanced maternal age in multigravida [facility] 2024 9:28pm Contraction, [place] Osman February 14 025 9:28pm Gestational hypertension February 14 9:28pm Hemorrhoids February 14, 2025 9:2 8pm History of miscarriage, currently pregna nt February 14, 2025 9:28pm Hx of pre-eclampsia in prior , currently February 14, 2025 9:28pm Hx of twin in prior February 14, 2025 9:28pm Inclusion cyst of vulva February 14, 2025 9:28pm LGA (large for gestational age) fetus [facility] 2024 9:28pm Lymphocytic colitis February 14, 2025 9:2 8pm Obesity affecting February 14, 2025 9:28pm Pelvic floor weakness in female February [id number] 9:28pm Perianal candidiasis February 14, 2025 9: 28pm February 14, 2025 9:2 8pm Proteinuria affecting February 142024 9:28pm Rectal pain February 14, 2025 9:2 8pm Short interval between pregn ancies affecting in first trimester, February 14, 2025 9:28pm Supervision of high-risk Augus t 2024 9:28pm Chronic anemia February 14, 2025 9:2 8pm Decreased movement February 14 9:28pm Abdominal pain February 18, 2025 2: 24pm Abnormal glucose affecting Feb us2024 2:24pm Advanced maternal age in multigravida Au [facility] 2024 2:24pm Contraction, Romero Osman February 18, 2025 2:24pm Gestational hypertension February 18 2:24pm Hemorrhoids February 18, 2025 2: 24pm History of miscarriage, currently pregna nt February 18, 2025 2:24pm Hx of pre-eclampsia in prior , currently February 18, 2025 2:24pm Hx of twin in prior February 18, 2025 2:24pm Inclusion cyst of vulva February 18 2:24pm LGA (large for gestational age) fetus Au [facility] 2024 2:24pm Lymphocytic colitis February 18, 2025 2: 24pm Obesity affecting February 18, 2025 2:24pm Pelvic floor weakness in female February [id number] 2:24pm Perianal candidiasis February 18, 2025 2 :24pm February 18, 2025 2: 24pm Proteinuria affecting February 072024 2:24pm Rectal pain February 18, 2025 2: 24pm Short interval between pregn ancies affecting in first trimester, February 18, 2025 2:24pm Supervision of high-risk Augus t 2024 2:24pm Chronic anemia February 18, 2025 2: 24pm Chief Complaint Admit Date 20wk ob November 07, 2024 9:28am 24 wk ob December 04, 2024 2:48p m EORDERS/DRAW AT 11:10 December 26, 2024 10 :59am 28 wk ob/Glucose January 03, 2025 2:52 pm 30 wk ob [place] 7th, 2025 10:41 am SCREEN FOR GESTATIONAL DM January 14, 2025 6:46am 32 wk ob *Doc Only January 29, 2025 9:53 am R/O PRE E February 07, 2025 11: 50am R/O PRE E February 07, 2025 2:3 3pm 34 wk ob *Doc Only February 13, 2025 3:5 6pm ABDOMINAL PAIN AND DECREASED MOVEM ENT February 14, 2025 9:28pm ABDOMINAL PAIN AND DECREASED MOVEM ENT February 14, 2025 11:30pm 34wk, possible Pre- E FU from WP February 18, 2025 2:24pm 36 wk ob *Doc Only February 27, 2025 2: 48pm Reason for Visit Admit Date Abdominal pain [...] 2025 2:52 pm Obesity affecting January 03 2:52pm Pelvic floor weakness in female December [...] anemia January 29, 2025 9:53 am Contraction, [place] Osman February 07, 025 11:50am Hx of pre-eclampsia in prior , currently February 07, 2025 11:50am Abdominal pain February 13, 2025 3:5 6pm Abnormal glucose affecting Aug us2024 3:56pm Advanced maternal age in multigravida Au laura 2024 3:56pm Contraction, [place]man February 13, 2 025 3:56pm Gestational hypertension February 13 3:56pm Hemorrhoids February 13, 2025 3:5 6pm History of miscarriage, currently pregna nt February 13, 2025 3:56pm Hx of pre-eclampsia in prior , currently February 13, 2025 3:56pm Hx of twin in prior February 13, 2025 3:56pm Inclusion cyst of vulva February 13, 2025 3:56pm LGA (large for gestational age) fetus [facility] 2024 3:56pm Lymphocytic colitis February 13, 2025 [...] Chronic anemia February 13, 2025 3:5 6pm Abdominal pain February 14, 2025 9:2 8pm Abnormal glucose affecting Feb us2024 9:28pm Advanced maternal age in multigravida [facility] 2024 9:28pm Contraction, [place] Osman February 14 025 9:28pm Gestational hypertension February 14 9:28pm Hemorrhoids February 14, 2025 9:2 8pm History of miscarriage, currently pregna nt February 14, 2025 9:28pm Hx of pre-eclampsia in prior , currently February 14, 2025 9:28pm Hx of twin in prior February 14, 2025 9:28pm Inclusion cyst of vulva February 14, 2025 9:28pm LGA (large for gestational age) fetus [facility] 2024 9:28pm Lymphocytic colitis February 14, 2025 9:2 8pm Obesity affecting February 14, 2025 9:28pm Pelvic floor weakness in female February [id number] 9:28pm Perianal candidiasis February 14, 2025 9: 28pm February 14, 2025 9:2 8pm Proteinuria affecting February 142024 9:28pm Rectal pain February 14, 2025 9:2 8pm Short interval between pregn ancies affecting in first trimester, February 14, 2025 9:28pm Supervision of high-risk Augus t 2024 9:28pm Chronic anemia February 14, 2025 9:2 8pm Decreased movement February 14 9:28pm Abdominal pain February 18, 2025 2: 24pm Abnormal glucose affecting Feb us2024 2:24pm Advanced maternal age in multigravida [facility] 2024 2:24pm Contraction, Romero Osman February 18, 2025 2:24pm Gestational hypertension February 18 2:24pm Hemorrhoids February 18, 2025 2: 24pm History of miscarriage, currently pregna nt February 18, 2025 2:24pm Hx of pre-eclampsia in prior , currently February 18, 2025 2:24pm Hx of twin in prior February 18, 2025 2:24pm Inclusion cyst of vulva February 18 2:24pm LGA (large for gestational age) fetus [facility] 2024 2:24pm Lymphocytic colitis February 18, 2025 2: 24pm Obesity affecting February 18, 2025 2:24pm Pelvic floor weakness in female February 072024 2:24pm Perianal candidiasis February 18, 2025 2 :24pm February 18, 2025 2: 24pm Proteinuria affecting February 072024 2:24pm Rectal pain February 18, 2025 2: 24pm Short interval between pregn ancies affecting in first trimester, February 18, 2025 2:24pm Supervision of high-risk Augus t 2024 2:24pm Chronic anemia February 18, 2025 2: 24pm Abdominal pain February 27, 2025 2: 48pm Abnormal glucose affecting Feb us2024 2:48pm Advanced maternal age in multigravida [facility] 2024 2:48pm Contraction, [place]man February 27, 2025 2:48pm Gestational hypertension February 27 2:48pm Hemorrhoids February 27, 2025 2: 48pm History of miscarriage, currently pregna nt February 27, 2025 2:48pm Hx of pre-eclampsia in prior , currently February 27, 2025 2:48pm Hx of twin in prior February 27, 2025 2:48pm Inclusion cyst of vulva February 27 2:48pm LGA (large for gestational age) fetus Au 2024 2:48pm Lymphocytic colitis February 27, 2025 2: 48pm Obesity affecting February 27, 2025 2:48pm Pelvic floor weakness in female February 082024 2:48pm Perianal candidiasis February 27, 2025 2 :48pm February 27, 2025 2: 48pm Proteinuria affecting February 082024 2:48pm Rectal pain February 27, 2025 2: 48pm Short interval between pregn ancies affecting in first trimester, February 27, 2025 2:48pm Supervision of high-risk Augus 2024 2:48pm Chronic anemia February 27, 2025 2: 48pm Family History Relationship Condition Age at Onset Recorded Date/T lito mother Arthritis Unknown Hypertension Unknown father Arthritis Unknown aunt Malignant neoplasm of breast Unknown grandfather Cardiac disease Unknown Kidney disorder Unknown brother Hypertension Unknown sister Hypertension Unknown Relationship Condition Age at Onset Recorded Date/T liot mother Arthritis Unknown Hypertension Unknown father Arthritis [...] Will No September 01 12:13pm Power of Rn Disease Management No September 01, 2021 12:13pm Advance Directive Response Recorded Date/ Time Advance Directives No August 11:13am Living Will No September 01 11:13am Power of Rn Disease Management No September 01, 2021 11:13am Advance Directive Response Recorded Date/ Time Advance Directives No August 12:13pm Living Will No December 08, 2022 9 :03am Power of Rn Disease Management No December 08, 2022 9:03am Advance Directive Response Recorded Date/ Time Advance Directives No August 11:13am Living Will No December 08, 2022 8 :03am Power of Rn Disease Management No December 08, 2022 8:03am Advance Directive Response Recorded Date/ Time Living Will Yes March 21, 2024 11:01am Power of Rn Disease Management Yes March 11:01am Advance Directives No July 18, 2024 11:52am Living Will Yes June 04 4:15pm Power of Rn Disease Management Yes June 04, 2024 4:15pm Name of Medical Power of Rn Disease Management June 04, 2024 4:15pm Advance Directive Response Recorded Date/ Time Living Will Yes March 21, 2024 11:01am Do you have a Healthcare Power of Rn Disease Management? Yes March 21, 2024 11:01am Advance Directives No July 18, 2024 11:52am Living Will Yes June 04 4:15pm Do you have a Healthcare Power of Rn Disease Management? Yes June 04, 2024 4:15pm Name of Medical Power of Rn Disease Management June 04, 2024 4:15pm Advance Directive Response Recorded Date/ Time Living Will Yes March 21, 2024 11:01am Do you have a Healthcare Power of Rn Disease Management? Yes March 21, 2024 11:01am Advance Directives No July 18, 2024 11:52am Living Will Yes October 11, 2024 9:53pm Do you have a Healthcare Power of Rn Disease Management? Yes October 11, 2024 9:53pm Name of Medical Power of Rn Disease Management October 11, 2024 9:53pm Advance Directive Response Recorded Date/ Time Advance Directives No July 18, 2024 11:52am Living Will Yes October 11, 2024 9:53pm Do you have a Healthcare Power of Rn Disease Management? Yes October 11, 2024 9:53pm Name of Medical Power of Rn Disease Management October 11, 2024 9:53pm Advance Directive Response Recorded Date/ Time Living Will Yes October 11, 2024 9:53pm Do you have a Healthcare Power of Rn Disease Management? Yes October 11, 2024 9:53pm Name of Medical Power of Rn Disease Management October 11, 2024 9:53pm Advance Directives No July 18, 2024 11:52am Advance Directive Response Recorded Date/ Time Living Will Yes October 11, 2024 9:53pm Do you have a Healthcare Power of Rn Disease Management? Yes October 11, 2024 9:53pm Name of Medical Power of Rn Disease Management October 11, 2024 9:53pm Advance Directives No [...] or prosecute any alcohol or drug abuse patient.[facility] event this information is protected by the Federal Confidentiality of Alcohol and Drug Abuse Patient Records regulations: The Federal rules restrict any use of the information to criminally investigate or prosecute any alcohol or drug abuse patient.[facility] the event this information is protected by the Federal Confidentiality of Alcohol and Drug Abuse Patient Records regulations: The Federal rules restrict any use of the information to criminally investigate or prosecute any alcohol or drug abuse patient.[facility] HospitalIn the event this information is protected by the Federal Confidentiality of Alcohol and Drug Abuse Patient Records regulations: The Federal rules restrict any use of the information to criminally investigate or prosecute any alcohol or drug abuse patient.[facility] HospitalIn the event this information is protected by the Federal Confidentiality of Alcohol and Drug Abuse Patient Records regulations: The Federal rules restrict any use of the information to criminally investigate or prosecute any alcohol or drug abuse patient.[facility] HospitalIn the event this information is protected by the Federal Confidentiality of Alcohol and Drug Abuse Patient Records regulations: The Federal rules restrict any use of the information to criminally investigate or prosecute any alcohol or drug abuse patient.[facility] HospitalIn the event this information is protected by the Federal Confidentiality of Alcohol and Drug Abuse Patient Records regulations: The Federal rules restrict any use of the information to criminally investigate or prosecute any alcohol or drug abuse patient.[facility] HospitalIn the event this information is protected by the Federal Confidentiality of Alcohol and Drug Abuse Patient Records regulations: The Federal rules restrict any use of the information to criminally investigate or prosecute any alcohol or drug abuse patient.[facility] HospitalIn the event this information is protected by the Federal Confidentiality of Alcohol and Drug Abuse Patient Records regulations: The Federal rules restrict any use of the information to criminally investigate or prosecute any alcohol or drug abuse patient.[facility] HospitalIn the event this information is protected by the Federal Confidentiality of Alcohol and Drug Abuse Patient Records regulations: The Federal rules restrict any use of the information to criminally investigate or prosecute any alcohol or drug abuse patient.[facility] HospitalIn the event this information is protected by the Federal Confidentiality of Alcohol and Drug Abuse Patient Records regulations: The Federal rules restrict any use of the information to criminally investigate or prosecute any alcohol or drug abuse patient.[facility] HospitalIn the event this information is protected by the Federal Confidentiality of Alcohol and Drug Abuse Patient Records regulations: The Federal rules restrict any use of the information to criminally investigate or prosecute any alcohol or drug abuse patient.[facility] HospitalIn the event this information is protected by the Federal Confidentiality of Alcohol and Drug Abuse Patient Records regulations: The Federal rules restrict any use of the information to criminally investigate or prosecute any alcohol or drug abuse patient.[facility] HospitalIn the event this information is protected by the Federal Confidentiality of Alcohol and Drug Abuse Patient Records regulations: The Federal rules restrict any use of the information to criminally investigate or prosecute any alcohol or drug abuse patient.[facility] HospitalIn the event this information is protected by the Federal Confidentiality of Alcohol and Drug Abuse Patient Records regulations: The Federal rules restrict any use of the information to criminally investigate or prosecute any alcohol or drug abuse patient.[facility] HospitalIn the event this information is protected by the Federal Confidentiality of Alcohol and Drug Abuse Patient Records regulations: The Federal rules restrict any use of the information to criminally investigate or prosecute any alcohol or drug abuse patient.[facility] HospitalIn the event this information is protected by the Federal Confidentiality of Alcohol and Drug Abuse Patient Records regulations: The Federal rules restrict any use of the information to criminally investigate or prosecute any alcohol or drug abuse patient.[facility] HospitalIn the event this information is protected by the Federal Confidentiality of Alcohol and Drug Abuse Patient Records regulations: The Federal rules restrict any use of the information to criminally investigate or prosecute any alcohol or drug abuse patient.[facility] HospitalIn the event this information is protected by the Federal Confidentiality of Alcohol and Drug Abuse Patient Records regulations: The Federal rules restrict any use of the information to criminally investigate or prosecute any alcohol or drug abuse patient.[facility] HospitalIn the event this information is protected by the Federal Confidentiality of Alcohol and Drug Abuse Patient Records regulations: The Federal rules restrict any use of the information to criminally investigate or prosecute any alcohol or drug abuse patient.[facility] HospitalIn the event this information is protected by the Federal Confidentiality of Alcohol and Drug Abuse Patient Records regulations: The Federal rules restrict any use of the information to criminally investigate or prosecute any alcohol or drug abuse patient.[facility] Reason for Visit (unrecogniz ed section and content) Reason Comments New Pain Specialty Diagnoses / Procedures Referred By Contac t Referred To Contact Diagnoses OV Procedures OV Self [facility] Dept Referral ID Status Reason Start Date Expiration Date V isits Requested Visits Authorized [id number] Closed Patient Cleared - Qualified 100% FAS 12/03/2021 03/03/2022 99 99 Reason Comments Follow Up Pain Reason Comments Appointment Reason Comments Radiology US Specialty Diagnoses / Procedures Referred By Contac t Referred To Contact US IMAGING Diagnoses Right calf pain Procedures US DVT LOWER RT DUP-SCAN XTR VEINS UNILATERAL/LIMITED STUDY Kelly Johnson PA-C [address] [place] [address] Us Imaging Referral ID Status Reason Start Date Expiration Date V isits Requested Visits Authorized [id number] Closed Auto-Generate d Referral 02/28/2022 03/30/2023 1 [...] ESTABLISH Self Cathryn Morrell DO [address] [place] [address] Referral ID Status Reason Start Date Expiration Date V isits Requested Visits Authorized [id number] Authorized 08/17/2022 07/09/2023 99 99 Reason Comments [...] June 24, 2024 End: June 24, 2024 Reina Varela NP-C Attending Provider Active Start: June 24, 2024 [...] August 26, 2024 End: August 26, 2024 Suyapa Godinez CNM Attending Provider Active S tart: August [...] September 10, 2024 End: September 10, 2024 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 Relationship Specialty Start Date End Date J Luis Jacobson (Historic) PCP - General Internal Medicine 07/19/10 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 Relationship Specialty Start Date End Date J Luis Jacobson (Historic) PCP - General Internal Medicine 07/19/10 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 Relationship Specialty Start Date End Date J Luis Jacobson (Historic) PCP - General Internal Medicine 07/19/10 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 Relationship Specialty Start Date End Date ZewailJ Luis (Historic) PCP - General Internal Medicine 07/19/10 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 Relationship Specialty Start Date End Date ZewailJ Luis (Historic) PCP - General Internal Medicine 07/19/10 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 Relationship Specialty Start Date End Date ZewailJ Luis (Historic) PCP - General Internal Medicine 07/19/10 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 Relationship Specialty Start Date End Date ZewailJ Luis (Historic) PCP - General Internal Medicine 07/19/10 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 Relationship Specialty Start Date End Date ZewailJ Luis (Historic) PCP - General Internal Medicine 07/19/10 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 Relationship Specialty Start Date End Date ZewailJ [...] Smith , DO Primary Care Provider Active IMAN Howell Attending Provider Active Team Status: Active Member [...] , DO Primary Care Provider Active Dr. Jeffrey Ott MD Attending Provider Active Team Status: Inactive Member Role Status Dates Dr. Cholo Smith , DO Primary Care Provider Active Dr. Cathryn Morrell , DO Attending Provider, Ref erring Provider Active Team Status: Active Member Role Status Dates Dr. Cholo Smith , DO Primary Care Prov ider, Attending Provider, Referring Provider Active 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 Relationship Specialty Start Date End Date J Luis Jacobson (Historic) PCP - General Internal Medicine 07/19/10 Team Status: Inactive Member Role Status Dates Dr. Cholo Smith DO Primary Care Prov ider, Attending Provider, Referring Provider Active 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 Relationship Specialty Start Date End Date J Luis Jacobson (Historic) PCP - General Internal Medicine 07/19/10 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 Relationship Specialty Start Date End Date J Luis Jacobson (Historic) PCP - General Internal Medicine 07/19/10 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 Relationship Specialty Start Date End Date J Luis Jacobson (Historic) PCP - General Internal Medicine 07/19/10 11/07/22 Team Status: Inactive Member Role Status Dates Dr. Cholo Smith DO Primary Care Provider, Referrin g Provider Active Dennis Goode NP, [employer] S[employer]TER-C Attending Provider Active Team Status: Inactive Member Role Status Dates Dr. Cholo Smith DO Primary Care Provider Active Dr. Santi Pelayo MD Emergency Provider Active 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 Relationship Specialty Start Date End Date Cholo Smith DO [address] [place] [address] PCP - General Family Medicine 11/08/22 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 Relationship Specialty Start Date End Date Cholo Smith DO [address] [place] [address] PCP - General Family Medicine 11/08/22 Team Status: Inactive Member Role Status Dates Dr. Chloo Smith DO Primary Care Provider, Referrin g Provider Active Tania Coffman PA, PA Attending Provider Active Team Status: Inactive Member Role Status Dates Dr. Cholo Smith DO Primary Care Provider Active Dr. Santi Pelayo MD Attending Provider, Emergency Provider Active Team Status: Inactive Member Role Status Dates Dr. Cholo Smith DO Primary Care Provider Active VERN MistryC Attending Provider, Referring Prov ider Active 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 Relationship Specialty Start Date End Date Cholo Smith DO [address] [place] [address] PCP - General Family Medicine 11/08/22 Team [...] Primary Care Provider, Referrin g Provider Active Suyapa Godinez CNM Attending Provider Active Team Status: Inactive Member Role Status Dates Dr. Cholo Smith DO Primary Care Provider, Referrin g Provider Active Dr. Piedad Moreno MD Attending Provider Active Team Status: Inactive Member Role Status Dates Dr. Cholo Smith , DO Primary Care Provider Active Dr. Piedad Moreno MD Attending Provider, Referr ing Provider Active 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 Relationship Specialty Start Date End Date Cholo Smith DO [address] [place] [address] PCP - General Family Medicine 11/08/22 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 Relationship Specialty Start Date End Date Indira J Luis Mica (Historic) PCP - General Internal Medicine 07/19/10 11/07/22 Team Status: Active Member Role Status Dates Dr. Cholo Smith DO Primary Care Provider Active Start: May 27, 2024 Dr. Reina Rashid , DO Attending Provider Activ e Start: May 27, 2024 Dr. Reina Rashid , DO Referring Provider Activ e Start: May 27, 2024 Team Status: Inactive Member Role Status Dates Dr. Cholo Smith DO Primary Care Provider Active Start: October 07, 2024 End: October 07, 2024 Dr. Cholo Smith DO Referring Provider Active Start: October 07, 2024 End: October 07, 2024 Suyapa Godinez CNM Attending Provider Active S tart: October [...] Inactive Member Role Status Dates Dr. Cholo Smtih DO Primary Care Provider Active Start: November [...] October 07, 2024 End: October 07, 2024 Suyapa Godinez CNM Attending Provider Active S tart: October [...] October 07, 2024 End: October 07, 2024 Suyapa Godinez CNM Attending Provider Active S tart: October [...] January 13, 2025 End: January 13, 2025 Suyapa Godinez CNM Attending Provider Active S tart: January 13, 2025 End: January 13, 2025 Team Status: Inactive Member Role/Relationship Status Dates Dr. Cholo Smith DO Primary Care Provider Active Start: January 14, 2025 End: January 14, 2025 Suyapa Godinez CNM Attending Provider Active S tart: January 14, 2025 End: January 14, 2025 Suyapa Godinez CNM Referring Provider Active S tart: January [...] January 13, 2025 End: January 13, 2025 Suyapa Godinez CNM Attending Provider Active S tart: January 13, 2025 End: January 13, 2025 Team Status: Inactive Member Role/Relationship Status Dates Dr. Cholo Smith DO Primary Care Provider Active Start: January 14, 2025 End: January 14, 2025 Suyapa Godinez CNM Attending Provider Active S tart: January 14, 2025 End: January 14, 2025 Suyapa Godinez CNM Referring Provider Active S tart: January [...] Active Start: February 05, 2025 Danya Simpson NP, [employer]TER-C Attending Provider Active Start: February 05, 2025 [...] January 13, 2025 End: January 13, 2025 Suyapa Godinez CNM Attending Provider Active S tart: January 13, 2025 End: January 13, 2025 Team Status: Inactive Member Role/Relationship Status Dates Dr. Cholo Smith DO Primary Care Provider Active Start: January 14, 2025 End: January 14, 2025 Suyapa Godinez CNM Attending Provider Active S tart: January 14, 2025 End: January 14, 2025 Suyapa Godinez CNM Referring Provider Active S tart: January [...] Active Start: February 05, 2025 Danya Simpson CLOTH STOCK SORTER, [employer] S[employer]TER-C Attending Provider Active Start: February 05, 2025 [...] February 13, 2025 End: February 13, 2025 Team Status: Inactive Member Role/Relationship Status Dates Dr. Cholo Smith DO Primary Care Provider Active Start: February 14, 2025 End: February 14, 2025 Suyapa Godinez CNM Attending Provider Active S tart: February 14, 2025 End: February 14, 2025 Suyapa Godienz CNM Referring Provider Active S tart: February 14, 2025 End: February 14, 2025 Team Status: Active Member Role/Relationship Status Dates Dr. Cholo Smith DO Primary Care Provider Active Start: February 14, 2025 Suyapa Godinez CNM Attending Provider Active S tart: February 14, 2025 Suyapa Godinez CNM Referring Provider Active S tart: February 14, 2025 Suyapa Godinez CNM Other Provider Active Start : February 14, 2025 Team Status: Inactive Member Role/Relationship Status Dates Dr. Cholo Smith DO Primary Care Provider Active Start: February 18, 2025 End: February 18, 2025 Dr. Cholo Smith DO Referring Provider Active Start: February 18, 2025 End: February 18, 2025 Dr. Piedad Moreno MD Attending Provider Active Start: February 18, 2025 End: February 18, 2025 Team Status: Inactive Member Role/Relationship Status Dates Dr. Cholo Smith DO Primary Care Provider Active Start: February 18, 2025 End: February 18, 2025 Dr. Piedad Moreno MD Attending Provider Active Start: February 18, 2025 End: February 18, 2025 Team Status: Inactive Member Role/Relationship Status Dates Dr. Cholo Smith DO Primary Care Provider Active Start: February 05, 2025 End: February 05, 2025 Danya Simpson NP, [employer] S[employer]TER-C Attending Provider Active Start: February 05, 2025 End: February 05, 2025 Team Status: Inactive Member Role/Relationship Status Dates Dr. Cholo Smith DO Primary Care Provider Active Start: February 27, 2025 End: February 27, 2025 Dr. Cholo Smith DO Referring Provider Active Start: February 27, 2025 End: February 27, 2025 Dr. Piedad Moreno MD Attending Provider Active Start: February 27, 2025 End: February 27, 2025 Goals (unrecognized section and content) Goals [...] section and content) DATE CREATED AUTHOR 05/13/2023 [facility] DATE CREATED AUTHOR AUTHOR'S ORGANIZ ATION 05/15/2023 [facility] DATE CREATED AUTHOR AUTHOR'S ORGANIZ ATION 02/22/2025 [facility] DATE CREATED AUTHOR AUTHOR'S ORGANIZ ATION 02/27/2025 [facility] FOR RECORDS PERTAINING TO PATIENTS [...] BE BASED ON THE PRIMARY CLINICAL RECORDS. [employer] [facility]. provides no warranty or guarantee of the accuracy or completeness of information in this document.
[2025-02-28 06:52] VITALS: BP 125/76; PULSE 93; RESP 16; TEMP 36.6
[2025-02-28] MEDS: Lactated Ringers 1,000 ML 125 ML IV (07:17)
[2025-02-28 07:29] LABS: Hematocrit 33.1 % (37-47); Hemoglobin 11.4 g/dL (12.0-15.0); Immature Granulocytes Count 0.070 X10^3/uL (0.0-0.0); Mean Corp Hgb Conc 34.4 g/dL (32-36); Mean Corpuscular Volume 87.3 fL (81-99); Mean Platelet Vol. 11.2 fl (6.2-12.0); NRBC Flagged by Analyzer 0 % (0-5); Platelet Count 176 K/mm3 (150-450); RBC Distribution Width CV 13.2 % (11.6-14.6); RBC Distribution Width SD 41.7 fl (35.1-43.9); Red Blood Count 3.79 M/mm3 (4.2-5.4); White Blood Count 8.0 K/mm3 (4.4-11.0)
--- NOTE | 2025-02-28 08:32 | OB.TRI.PN ---
Progress Notes Date of Service: 02/28/25 Progress Note: Patient presents for triage evaluation secondary to breech presentation FHT: 140 Moderate variability reactive no decelerations category I tracing [place]: no regular Contractions Assessment and plan: vertex presentation no version needed Reactive NST, reassuring maternal and status patient discharged to home to follow-up as scheudled for induciton. See problem list details for additional plan information. Laboratory Studies: Laboratory Tests 02/28/25 Range/Units 07:17 WBC 8.0 (4.4-11.0) K/mm3 RBC 3.79 L (4.2-5.4) M/mm3 Hgb 11.4 L (12.0-15.0) g/dL Hct 33.1 L (37-47) % MCV 87.3 (81-99) fL MCH 30.1 (27.0-32.0) pg MCHC 34.4 (32-36) g/dL RDW Std Deviation 41.7 (35.1-43.9) fl RDW Coeff of Oneil 13.2 (11.6-14.6) % Plt Count 176 (150-450) K/mm3 MPV 11.2 (6.2-12.0) fl Immature Gran % (Auto) 0.900 (0.0-0.9) % Neut % (Auto) 68.6 (47-70) % Lymph % (Auto) 20.8 (19-41) % Stokes % (Auto) 5.0 (0-10) % Eos % (Auto) 3.9 (0-5) % Baso % (Auto) 0.8 (0-1) % Absolute Neuts (auto) 5.5 (2.0-7.7) X10^3/uL Absolute Lymphs (auto) 1.66 (0.83-4.51) X10^3/uL Nucleated RBC % 0 (0-5) % Charges/Coding Procedures Urinary/Genital [id number]: [id number] non-stress test Interp
== END 2025-02-28 07:50 | disposition home or self-care (01) ==
LOC: WPOUT 06:35 → WP 06:35
PROVIDERS: PCP Family Medicine; Referring Provider Obstetrics & Gynecology; Visit Provider Obstetrics & Gynecology
DX: O32.1XX0 Maternal care for breech presentation, not applicable or unspecified (principal); Z3A.36 36 weeks gestation of pregnancy
CPT/HCPCS: 36415; 59025; 59050; 76815; 85025; 86850; 86900; 86901; 99221; G0378

== ENCOUNTER 2025-03-06 16:35 | Inpatient (IN) | payer BC, SELFPAY ==
[2025-03-06] VITALS (21 sets, daily range): BP systolic 115–145; BP diastolic 64–86; PULSE 82–98; RESP 14–19; TEMP 36.1–36.7; O2SAT 80–100; BMI 39.9
[2025-03-06] MEDS: Lactated Ringers 1,000 ML 999 ML IV (17:45)
[2025-03-06 18:38] LABS: Hematocrit 33.6 % (37-47); Hemoglobin 11.6 g/dL (12.0-15.0); Immature Granulocytes Count 0.060 X10^3/uL (0.0-0.0); Mean Corp Hgb Conc 34.5 g/dL (32-36); Mean Corpuscular Volume 85.9 fL (81-99); Mean Platelet Vol. 11.1 fl (6.2-12.0); NRBC Flagged by Analyzer 0 % (0-5); Platelet Count 196 K/mm3 (150-450); RBC Distribution Width CV 13.2 % (11.6-14.6); RBC Distribution Width SD 40.7 fl (35.1-43.9); Red Blood Count 3.91 M/mm3 (4.2-5.4); White Blood Count 10.8 K/mm3 (4.4-11.0)
[2025-03-06] MEDS: Lactated Ringers 1,000 ML 50 ML IV (18:54)
[2025-03-06 18:59] LABS: Syphilis Antibodies Nonreactive (Nonreactive)
--- NOTE | 2025-03-06 19:06 | HP.PCM.OB_ITS ---
HPI - General General Date of Admission: 03/06/25 HPI Narrative LAURA FERNANDEZ, is a 34 F who presents secondary to abnormal testing she had a 6 out of 8 BPP and then had an equivocal nonstress test in the office with periodic variables seen and therefore decision was made to recommend induction of labor. Unstable lie was encountered therefore patient was counseled regarding external cephalic version and the patient agreed. Patient denies any vaginal bleeding or loss of fluid admits good movement. Maternal Data Information RAMSES Calculator Estimated Delivery Date Method Current WG Current Estimate 03/27/25 LMP (Certain) 37w 1d PFSH [facility] Medical History (Updated 03/07/25 @ 01:[address] Piedad Moreno MD) macrosomia Seasonal allergies Superficial varicosities Pre-eclampsia Galactorrhea Hx of pre-eclampsia in prior , currently Allergic dermatitis Trochanteric bursitis of right hip Lymphocytic colitis Non-smoker History of steroid therapy Constipation Umbilical hernia Chronic constipation Dichorionic diamniotic twin gestation Anal fissure External hemorrhoids Home Medications ?Medication ?Instructions ?Recorded ?Last Taken ?Type multivitamin no.47-iron fum 27 1 cap PO DAILY pregnanc y 08/18/23 02/27/25 History mg-folate no.1 1 mg-dha 300 mg capsule (PNV-DHA) Diltiazem 2% / Lidocaine 5% #1 ea 06/24/24 Unknown Rx ointment (compound) ferrous sulfate 325 mg (65 mg 325 mg PO Q OTHER DAY an emia 08/06/24 Unknown History iron) tablet Held on 03/06/25. Instructions: pt refusees famotidine 20 mg tablet (Pepcid) 20 mg PO BID heartbur n 90 days 09/10/24 02/28/25 Rx #180 tabs hydroxyzine pamoate 25 mg capsule 25 mg PO QHS PRN itc marla #30 caps 01/03/25 Unknown Rx Allergy/AdvReac Type Severity Reaction Status Date / Time No Known Allergies Allergy Verified 03/06/25 16:55 Family History Mother Arthritis Hypertension Father Arthritis Hypertension CVA (cerebral vascular accident) Aunt Breast cancer Paternal Grandfather Heart disease Kidney disease Brother Hypertension Sister Hypertension Grandmother Breast cancer Paternal Diabetes Paternal Surgical History History of hip surgery Hx of umbilical hernia repair Hx of dilation and curettage History of hemorrhoidectomy (~05/2018) History of tonsillectomy Social History adopted: No household members: spouse and children number of children: 4 current occupational status: employed 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 [employer] current occupational exposures/hazards: No pets and animals: Yes (Avoid litterbox) pets and animals: cat(s) and dog(s) history of recent travel: No sexually active: Yes Smoking Status: Never smoker alcohol intake: current alcohol intake frequency: a few times a month details: not while substance use type: does not use well-balanced diet: daily or most days caffeine: Yes Type: carbonated beverages Number of servings: 2 eating out: 1-3 times/week during the past year weight has: increased > 10 lbs what type of physical activity do you participate in: none suraj/taoist: Anabaptist seatbelt use: always do you feel safe at home: Yes additional social history: [employer] History 5 Elective abortions Hx Para 4 Spontaneous abortions 1 Hx # Term Pregnancies Ectopic pregnancies Hx # Pregnancies Multiple births 1 # of living children 4 Past Pregnancies Del. Date Name GA/Weeks Outcome Route Bth Weight Gen Labor Lgth Anesthesia Del Locatn Provider FOB 04/05/18 Vinsen 41 live - full term 9#7oz Male 26 hrs epid ural [employer] Shey Madsen Alvarez 11/01/19 10 spontaneous 08/10/20 Lakisha 37 live - full term 5#14oz Female 10 HR epid ural [employer] Marin Pino 08/10/20 Abran 37 live - full term 6#4oz Male 10 HR epid ural [facility] [facility] Marin Pino 03/19/24 Elaine 39 live - full term 8lbs 2oz Female [employer] Dr. Gleason Delivery Date: 04/05/18 Last Updated by: Merna Bermeo IOL post dates Delivery Date: 11/01/19 Last Updated by: Merna Bermeo D&C, blighted Ovum Delivery Date: 08/10/20 Last Updated by: Merna Bermeo IOL @ 37wks Twins, Gestational HTN/pre-e Delivery Date: 08/10/20 Last Updated by: Merna Linda Bermeo IOL @ 37 weeks twins, gestational HTN, pre e Delivery Date: 03/19/24 Last Updated by: Laruen ANTHONY, gestational hypertension Visit Details Expected Delivery Route/Plan Labor Preferences- CB/BF classes: [] labor support person: [] labor intervention preferences: [] pain management options preferred: [] cut cord/dad catch: [] : [] PP control planned: [] discussed possible routes of delivery and associated risks: [] special requests: [] Plans Covid status: [] Flu vaccine: [] Tdap vaccine: [] Rhogam: [] LARC form signed: [] Problem list reviewed and updated with the most current plan of care details and appropriate orders placed. Relevant counseling for the gestational age provided. Continue routine care and follow up unless otherwise noted in visit notes/problem list details OB Flowsheet Initial Weight: 196 lb Date -?-?-?-?-?-?-?-?-?-?-?-?- EGA Weight BP Urine Prot -?-?-?-?-?-?-?-?-?-?-?-?- Glucose FHR FuHt Pres Dilation -?-?-?-?-?-?-?-?-?-?-?-?- Effaced St Visit Note 08/13/24 -?-?-?-?-?-?-?-?-?-?-?-?- 7w 5d 193 lb 6 oz (-2 lb 10 oz) 139/84 -?-?-?-?-?-?-?-?-?-?-?-?- 165 -?-?-?-?-?-?-?-?-?-?-?-?- JV- CRL consiste nt with LMP. She does have a 1 cm NANCY near the cervix. pelvic rest encouraged. RTO in 2 weeks for follow up. pt has inclusion cyst that was drained at her last delivery and wants drained again today. JV- CRL consistent with LMP. desires NIPT. She does have a 1 cm NANCY near the cervix. pelvic rest encouraged. RTO in 2 weeks for follow up. pt has inclusion cyst that was drained at her last delivery and wants drained again today. 08/26/24 -?-?-?-?-?-?-?-?-?-?-?-?- 9w 4d 194 lb 8 oz (-1 lb 8 oz) 137/89 Negative -?-?-?-?-?-?-?-?-?-?-?-?- Negative 180 -?-?-?-?-?-?-?-?-?-?-?-?- KW- no vb/crampi ng. discussed starting atb and pt would like to wait to start this because she gets recurrent yeast infections with atb. timo NANCY noted on US. will RTO in 2 weeks for follow up appt. 09/10/24 -?-?-?-?-?-?-?-?-?-?-?-?- 11w 5d 196 lb 2 oz (+2 oz) 136/85 Negative -?-?-?-?-?-?-?-?-?-?-?-?- Negative 155 -?-?-?-?-?-?-?-?-?-?-?-?- JV- no complaint s today. blood work done. 10/07/24 -?-?-?-?-?-?-?-?-?-?-?-?- 15w 4d 200 lb 2 oz (+4 lb 2 oz) 138/85 Negative -?-?-?-?-?-?-?-?-?-?-?-?- Negative 149 -?-?-?-?-?-?-?-?-?-?-?-?- KW- no vb/lof/ct x. cyst is bothersome again. [facility] scheduled KW- no vb/lof/ctx. cyst is b othersome again discussed with LUCIEN. [facility] scheduled 10/15/24 -?-?-?-?-?-?-?-?-?-?-?-?- 16w 5d 200 lb 6 oz (+4 lb 6 oz) 136/86 Negative -?-?-?-?-?-?-?-?-?-?-?-?- Negative 135 -?-?-?-?-?-?-?-?-?-?-?-?- SM- had episode of light bleeding yeast seen in ER hasn't been treated yet. urine culture and vaginal culture sent 11/07/24 -?-?-?-?-?-?-?-?-?-?-?-?- 20w 0d 205 lb 8 oz (+9 lb 8 oz) 117/77 Negative -?-?-?-?-?-?-?-?-?-?-?-?- Negative 145 -?-?-?-?-?-?-?-?-?-?-?-?- SM- no vb lof cr ampingboy on US SM- no vb lof cramping boy o n US 12/04/24 -?-?-?-?-?-?-?-?-?-?-?-?- 23w 6d 210 lb 8 oz (+14 lb 8 oz) 130/77 Negative -?-?-?-?-?-?-?-?-?-?-?-?- Negative 150 -?-?-?-?-?-?-?-?-?-?-?-?- JV- no lof, vagi nal bleeding, or dec fm.normal antomy scan. plan monthly growth scans for obesity and ama. glucola next visit. 01/03/25 -?-?-?-?-?-?-?-?-?-?-?-?- 28w 1d 211 lb 6 oz (+15 lb 6 oz) 138/82 -?-?-?-?-?-?-?-?-?-?-?-?- 152 -?-?-?-?-?-?-?-?-?-?-?-?- JV- pt diagnosed with pups but also has cutaneous candidiasis 01/13/25 -?-?-?-?-?-?-?-?-?-?-?-?- 29w 4d 215 lb 8 oz (+19 lb 8 oz) 126/87 Negative -?-?-?-?-?-?-?-?-?-?-?-?- Negative 130 31 -?-?-?-?-?-?-?-?-?-?-?-?- KW- no vb/lof/ct x. good fm. has 3 hour glucose tomorrow. 01/29/25 -?-?-?-?-?-?-?-?-?-?-?-?- 31w 6d 217 lb 8 oz (+21 lb 8 oz) 129/78 Negative -?-?-?-?-?-?-?-?-?-?-?-?- Negative 146 32 -?-?-?-?-?-?-?-?-?-?-?-?- JV- still has a rash and twin humzas saw her and thought it was just related dermatitis. not pupps. larc done today. likely plan for 38 weekIOL due to gestational hypertension and sooner delivery if bp's are higher or if develops proteinuria. she still would like the vaginal cyst removed after delivery . also wants a tubal at 10 weeks so we can always do a little posterior repair and removal of the cyst at the time of the tubal. 02/13/25 -?-?-?-?-?-?-?-?--?-?-?-?- 34w 0d 218 lb 6 oz (+22 lb 6 oz) 120/82 Negative -?-?-?-?-?-?-?-?-?-?-?-?- Negative 145 35 Breech -?-?-?-?-?-?-?-?-?-?--?-?- JV- breech on ul trasound with mfm today. tech told her the AC is now 99th%. her official growth is next week though. we talked about version if could be appropriate we would do at 37 weeks. BP's looking better so may not fit criteria for GHTN and delivery at 38 weeks. we can offer 39 week elective induction though. 02/18/25 -?-?-?-?-?-?-?-?-?-?-?-?- 34w 5d 216 lb (+20 lb) 128/84 -?-?-?-?-?-?-?-?-?-?-?-?- 140 35 Cephalic -?-?-?-?-?-?-?-?-?-?-?-?- SM- no vb lof go od fm n oregular ctx pupps no bp elevatin, feels like head down now 02/27/25 -?-?-?-?-?-?-?-?-?-?-?-?- 36w 0d 219 lb 2 oz (+23 lb 2 oz) 133/80 Negative -?-?-?-?-?-?-?-?-?-?-?-?- Negative 140 36 Breech 0 -?-?-?-?-?-?-?-?-?-?-?-?- SM- no vb lof go od fm n oreuglar ctx disucssed ECV plan tomorrow and IOL cytotec next due to closed 03/05/25 -?-?-?-?-?-?-?-?-?-?-?-?- 36w 6d 221 lb 7 oz (+25 lb 7 oz) 118/81 Negative -?-?-?-?-?-?-?-?-?-?-?-?- Negative 166 40 Cephalic 1 -?-?-?-?-?-?-?-?-?-?-?-?- 30 -3 JV- cephal ic on us. Pt wants to delay start of cytotec due to h/o going very fast. L&D aware of plan. NST FHR Rate Baby A Baseline: 130 Variability:: Moderate Accelerations:: 15 x 15 Decelerations:: None NST Reactive:: Yes FHR Category:: Category I Uterine Activity:: irregular ROS Constitutional Constitutional: Reports systems reviewed and no addt'l complaints, except as documented Eyes Eyes: Denies change in vision ENT HEENT: Reports systems reviewed and no addt'l complaints, except as documented; Denies headache(s) Cardiovascular Cardiovascular: Reports systems reviewed and no addt'l complaints, except as documented; Denies chest pain or dyspnea Respiratory/Chest Respiratory/Chest: Reports systems reviewed and no addt'l complaints, except as documented Gastrointestinal Gastrointestinal: Reports systems reviewed and no addt'l complaints, except as documented; Denies abdominal pain Genitourinary Genitourinary: Reports systems reviewed and no addt'l complaints, except as documented, contractions Details: present (irregular) and movement Details: present; Denies dysuria or genital lesions Musculoskeletal Musculoskeletal: Reports systems reviewed and no addt'l complaints, except as documented Neurologic Neurologic: Reports systems reviewed and no addt'l complaints, except as documented Endocrine Endocrinology: Reports systems reviewed and no addt'l complaints, except as documented Vital Signs Vital Signs Vital Signs: 03/06/25 16:47 03/06/25 16:47 03/06/25 16:47 Temperature Temperature Source Temporal Pulse Rate 96 Respiratory Rate Blood Pressure 135/84 H Blood Pressure Mean BP Systolic 135 BP Diastolic 84 Blood Pressure Source Blood Pressure Position Blood Pressure Location Pulse Ox Oxygen Delivery Method
--- NOTE | 2025-03-06 19:06 | PCM.HP.OB ---
HPI - General General Date of Admission: 03/06/25 HPI Narrative LAURA FERNANDEZ, is a 34 F who presents secondary to abnormal testing she had a 6 out of 8 BPP and then had an equivocal nonstress test in the office with periodic variables seen and therefore decision was made to recommend induction of labor. Unstable lie was encountered therefore patient was counseled regarding external cephalic version and the patient agreed. Patient denies any vaginal bleeding or loss of fluid admits good movement. Maternal Data Information RAMSES Calculator Estimated Delivery Date Method Current WG Current Estimate 03/27/25 LMP (Certain) 37w 1d PFSH [facility] Medical History (Updated 03/07/25 @ 01:[address] Piedad Moreno MD) macrosomia Seasonal allergies Superficial varicosities Pre-eclampsia Galactorrhea Hx of pre-eclampsia in prior , currently Allergic dermatitis Trochanteric bursitis of right hip Lymphocytic colitis Non-smoker History of steroid therapy Constipation Umbilical hernia Chronic constipation Dichorionic diamniotic twin gestation Anal fissure External hemorrhoids Home Medications ?Medication ?Instructions ?Recorded ?Last Taken ?Type multivitamin no.47-iron fum 27 1 cap PO DAILY 08/18/23 02/27/25 History mg-folate no.1 1 mg-dha 300 mg capsule (PNV-DHA) Diltiazem 2% / Lidocaine 5% #1 ea 06/24/24 Unknown Rx ointment (compound) ferrous sulfate 325 mg (65 mg 325 mg PO Q OTHER DAY anemia 08/06/24 Unknown History iron) tablet Held on 03/06/25. Instructions: pt refusees famotidine 20 mg tablet (Pepcid) 20 mg PO BID heartburn 90 days 09/10/24 02/28/25 Rx #180 tabs hydroxyzine pamoate 25 mg capsule 25 mg PO QHS PRN itching #30 caps 01/03/25 Unknown Rx Allergy/AdvReac Type Severity Reaction Status Date / Time No Known Allergies Allergy Verified 03/06/25 16:55 Family History Mother Arthritis Hypertension Father Arthritis Hypertension CVA (cerebral vascular accident) Aunt Breast cancer Paternal Grandfather Heart disease Kidney disease Brother Hypertension Sister Hypertension Grandmother Breast cancer Paternal Diabetes Paternal Surgical History History of hip surgery Hx of umbilical hernia repair Hx of dilation and curettage History of hemorrhoidectomy (~05/2018) History of tonsillectomy Social History adopted: No household members: spouse and children number of children: 4 current occupational status: employed 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 [employer] current occupational exposures/hazards: No pets and animals: Yes (Avoid litterbox) pets and animals: cat(s) and dog(s) history of recent travel: No sexually active: Yes Smoking Status: Never smoker alcohol intake: current alcohol intake frequency: a few times a month details: not while substance use type: does not use well-balanced diet: daily or most days caffeine: Yes Type: carbonated beverages Number of servings: 2 eating out: 1-3 times/week during the past year weight has: increased > 10 lbs what type of physical activity do you participate in: none suraj/evangelical: Taoism seatbelt use: always do you feel safe at home: Yes 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 Date Name GA/Weeks Outcome Route Bth Weight Gen Labor Lgth Anesthesia Del Locatn Provider FOB 04/05/18 Vinsen 41 live - full term 9#7oz Male 26 hrs epidural [employer] Shey Pino 11/01/19 10 spontaneous 08/10/20 Lakisha 37 live - full term 5#14oz Female 10 HR epidural [employer] Marin Pino 08/10/20 Abran 37 live - full term 6#4oz Male 10 HR epidural [facility] Marin Pino 03/19/24 Elaine 39 live - full term 8lbs 2oz Female [employer] [facility] Dr. Gleason Delivery Date: 04/05/18 Last Updated by: Mrena Bermeo IOL post dates Delivery Date: 11/01/19 Last Updated by: Merna Bermeo D&C, blighted Ovum Delivery Date: 08/10/20 Last Updated by: Merna Bermeo IOL @ 37wks Twins, Gestational HTN/pre-e Delivery Date: 08/10/20 Last Updated by: Merna Bermeo IOL @ 37 weeks twins, gestational HTN, pre e Delivery Date: 03/19/24 Last Updated by: Lauren Osborn AMA, gestational hypertension Visit Details Expected Delivery Route/Plan Labor Preferences- CB/BF classes: [] labor support person: [] labor intervention preferences: [] pain management options preferred: [] cut cord/dad catch: [] : [] PP control planned: [] discussed possible routes of delivery and associated risks: [] special requests: [] Plans Covid status: [] Flu vaccine: [] Tdap vaccine: [] Rhogam: [] LARC form signed: [] Problem list reviewed and updated with the most current plan of care details and appropriate orders placed. Relevant counseling for the gestational age provided. Continue routine care and follow up unless otherwise noted in visit notes/problem list details OB Flowsheet Initial Weight: 196 lb Date <del>?</del> EGA Weight BP Urine Prot <del>?</del> Glucose FHR FuHt Pres Dilation <del>?</del> Effaced St Visit Note 08/13/24 <del>?</del> 7w 5d 193 lb 6 oz (-2 lb 10 oz) 139/84 <del>?</del> 165 <del>?</del> JV- CRL consistent with LMP. She does have a 1 cm NANCY near the cervix. pelvic rest encouraged. RTO in 2 weeks for follow up. pt has inclusion cyst that was drained at her last delivery and wants drained again today. JV- CRL consistent with LMP. desires NIPT. She does have a 1 cm NANCY near the cervix. pelvic rest encouraged. RTO in 2 weeks for follow up. pt has inclusion cyst that was drained at her last delivery and wants drained again today. 08/26/24 <del>?</del> 9w 4d 194 lb 8 oz (-1 lb 8 oz) 137/89 Negative <del>?</del> Negative 180 <del>?</del> KW- no vb/cramping. discussed starting atb and pt would like to wait to start this because she gets recurrent yeast infections with atb. small NANCY noted on US. will RTO in 2 weeks for follow up appt. 09/10/24 <del>?</del> 11w 5d 196 lb 2 oz (+2 oz) 136/85 Negative <del>?</del> Negative 155 <del>?</del> JV- no complaints today. blood work done. 10/07/24 <del>?</del> 15w 4d 200 lb 2 oz (+4 lb 2 oz) 138/85 Negative <del>?</del> Negative 149 <del>?</del> KW- no vb/lof/ctx. cyst is bothersome again. [facility] US scheduled KW- no vb/lof/ctx. cyst is bothersome again discussed with SM. [facility] US scheduled 10/15/24 <del>?</del> 16w 5d 200 lb 6 oz (+4 lb 6 oz) 136/86 Negative <del>?</del> Negative 135 <del>?</del> SM- had episode of light bleeding yeast seen in ER hasn't been treated yet. urine culture and vaginal culture sent 11/07/24 <del>?</del> 20w 0d 205 lb 8 oz (+9 lb 8 oz) 117/77 Negative <del>?</del> Negative 145 <del>?</del> SM- no vb lof crampingboy on US SM- no vb lof cramping boy on US 12/04/24 <del>?</del> 23w 6d 210 lb 8 oz (+14 lb 8 oz) 130/77 Negative <del>?</del> Negative 150 <del>?</del> JV- no lof, vaginal bleeding, or dec fm.normal antomy scan. plan monthly growth scans for obesity and ama. glucola next visit. 01/03/25 <del>?</del> 28w 1d 211 lb 6 oz (+15 lb 6 oz) 138/82 <del>?</del> 152 <del>?</del> JV- pt diagnosed with pups but also has cutaneous candidiasis 01/13/25 <del>?</del> 29w 4d 215 lb 8 oz (+19 lb 8 oz) 126/87 Negative <del>?</del> Negative 130 31 <del>?</del> KW- no vb/lof/ctx. good fm. has 3 hour glucose tomorrow. 01/29/25 <del>?</del> 31w 6d 217 lb 8 oz (+21 lb 8 oz) 129/78 Negative <del>?</del> Negative 146 32 <del>?</del> JV- still has a rash and [place] saw her and thought it was just related dermatitis. not pupps. larc done today. likely plan for 38 weekIOL due to gestational hypertension and sooner delivery if bp's are higher or if develops proteinuria. she still would like the vaginal cyst removed after delivery . also wants a tubal at 10 weeks so we can always do a little posterior repair and removal of the cyst at the time of the tubal. 02/13/25 <del>?</del> 34w 0d 218 lb 6 oz (+22 lb 6 oz) 120/82 Negative <del>?</del> Negative 145 35 Breech <del>?</del> JV- breech on ultrasound with mfm today. tech told her the AC is now 99th%. her official growth is next week though. we talked about version if could be appropriate we would do at 37 weeks. BP's looking better so may not fit criteria for GHTN and delivery at 38 weeks. we can offer 39 week elective induction though. 02/18/25 <del>?</del> 34w 5d 216 lb (+20 lb) 128/84 <del>?</del> 140 35 Cephalic <del>?</del> SM- no vb lof good fm n oregular ctx pupps no bp elevatin, feels like head down now 02/27/25 <del>?</del> 36w 0d 219 lb 2 oz (+23 lb 2 oz) 133/80 Negative <del>?</del> Negative 140 36 Breech 0 <del>?</del> SM- no vb lof good fm n oreuglar ctx disucssed ECV plan tomorrow and IOL cytotec next due to closed 03/05/25 <del>?</del> 36w 6d 221 lb 7 oz (+25 lb 7 oz) 118/81 Negative <del>?</del> Negative 166 40 Cephalic 1 <del>?</del> 30 -3 JV- cephalic on us. Pt wants to delay start of cytotec due to h/o going very fast. L&D aware of plan. NST FHR Rate Baby A Baseline: 130 Variability:: Moderate Accelerations:: 15 x 15 Decelerations:: None NST Reactive:: Yes FHR Category:: Category I Uterine Activity:: irregular ROS Constitutional Constitutional: Reports systems reviewed and no addt'l complaints, except as documented Eyes Eyes: Denies change in vision ENT HEENT: Reports systems reviewed and no addt'l complaints, except as documented; Denies headache(s) Cardiovascular Cardiovascular: Reports systems reviewed and no addt'l complaints, except as documented; Denies chest pain or dyspnea Respiratory/Chest Respiratory/Chest: Reports systems reviewed and no addt'l complaints, except as documented Gastrointestinal Gastrointestinal: Reports systems reviewed and no addt'l complaints, except as documented; Denies abdominal pain Genitourinary Genitourinary: Reports systems reviewed and no addt'l complaints, except as documented, contractions Details: present (irregular) and movement Details: present; Denies dysuria or genital lesions Musculoskeletal Musculoskeletal: Reports systems reviewed and no addt'l complaints, except as documented Neurologic Neurologic: Reports systems reviewed and no addt'l complaints, except as documented Endocrine Endocrinology: Reports systems reviewed and no addt'l complaints, except as documented Vital Signs Vital Signs Vital Signs: 03/06/25 16:47 03/06/25 16:47 03/06/25 16:47 Temperature Temperature Source Temporal Pulse Rate 96 Respiratory Rate Blood Pressure 135/84 H Blood Pressure Mean BP Systolic 135 BP Diastolic 84 Blood Pressure Source Blood Pressure Position Blood Pressure Location Pulse Ox Oxygen Delivery Method 03/06/25 16:47 03/06/25 16:47 03/06/25 16:59 Temperature 98.1 F 98.1 F Temperature Source Temporal Pulse Rate 97 Respiratory Rate 16 16 Blood Pressure 135/84 H Blood Pressure Mean 101 BP Systolic BP Diastolic Blood Pressure Source Monitor Blood Pressure Position Semi-Fowlers Blood Pressure Location Left Arm Pulse Ox 100 Oxygen Delivery Method Room Air 03/06/25 18:56 03/06/25 18:56 03/06/25 18:56 Temperature Temperature Source Temporal Pulse Rate 86 Respiratory Rate Blood Pressure 128/78 H Blood Pressure Mean BP Systolic 128 BP Diastolic 78 Blood Pressure Source Blood Pressure Position Blood Pressure Location Pulse Ox Oxygen Delivery Method 03/06/25 18:56 03/06/25 18:56 Temperature 96.9 F L Temperature Source Pulse Rate Respiratory Rate 16 Blood Pressure Blood Pressure Mean BP Systolic BP Diastolic Blood Pressure Source Blood Pressure Position Blood Pressure Location Pulse Ox Oxygen Delivery Method Weight Weight: 218 lb Body Mass Index (BMI) 39.9 Physical Exam Const alert, oriented x3, no apparent distress and healthy appearing HEENT normocephalic and moist oral mucous membranes Head and Scalp: atraumatic Neck full ROM, no lymphadenopathy, supple and thyroid normal General: trachea midline Lymph Lymphatic: no lymphadenopathy noted Chest inspection of chest normal Resp normal respiratory effort Cardio regular rate GI soft to palpation and non-tender GI Narrative: gravid Inspection: gravid external exam normal Manual OB Exam: estimated gestational size appropriate, presentation cephalic, dilated, effaced and station Extremity normal to inspection General Extremity: Negative for edema Skin no rashes or lesions noted Neuro no focal motor deficits and deep tendon reflexes 2+ bilaterally Motor Exam: strength 5/5 throughout and clonus absent Psych mental status grossly normal Labs Labs Labs: Blood Type A POSITIVE Antibody Screen NEGATIVE Hct 33.6 % (37-47) L Hgb 11.6 g/dL (12.0-15.0) L Obstetrics Ultrasound Syphilis Total Ab Nonreactive (Nonreactive) VZV IgG Antibody 1125 index (Immune >165) Rubella IgG Antibody REAC (Nonreactive) Hep Bs Antigen Nonreactive (Nonreactive) Hepatitis C Antibody Nonreactive (Nonreactive) Hepatitis C Ab (EIA) 0.2 s/co ratio (0.0-0.9) Chlamydia DNA (GUCCI) Negative (Negative) N.gonorrhoeae DNA (GUCCI) Negative (Negative) HIV 1&2 Antibody Nonreactive (Nonreactive) Glucose 1 Hr 50 gm 111 mg/dL (70-140) Gest Glucose Tolerance mg/dL Group B Strep DNA Negative (Negative) Rhogam given: No Miscellaneous Test Assessment & Plan (1) Encounter for induction of labor: (2) Unstable lie of fetus: (3) Proteinuria affecting : COMMENT: at 34 weeks-normal BP and rest of pre e labs. no pre e sx. (4) LGA (large for gestational age) fetus: COMMENT: 32wk: EFW 69%, AC 97%: rpt 1 hr GCT/normal (5) Advanced maternal age in multigravida: (6) Abnormal glucose affecting : COMMENT: normal 3 hour (7) Short interval between pregnancies affecting in first trimester, antepartum: COMMENT: baby 4 months old when became with this gestation. (8) History of miscarriage, currently : (9) Hx of twin in prior : COMMENT: Fraternal (10) Supervision of high-risk : COMMENT: PRR,, RAMSES 03/27/25, boy,PC Lakisha Underwood & Earnestine(Twins), Elaine Alvarez will be 39 weeks on Elaine's b-day. requests IOL on this day. (11) : QUALIFIERS: Weeks of gestation: 37 weeks Qualified Code(s): Z3A.37 - 37 weeks gestation of COMMENT: DOC ONLY NIPT low risk, anatomy needs f/u views. (12) Obesity affecting : COMMENT: HgbA1c (13) Inclusion cyst of vulva: COMMENT: +actinomycis:4 wk of amoxil (14) Hx of pre-eclampsia in prior , currently : COMMENT: negative labs . bp stable in WP. headache resolved. PLAN: Plan External cephalic version successful plan induction of labor with Pitocin and Mcnulty bulb and rupture of membranes whenever able.
--- NOTE | 2025-03-06 19:06 | PCM.OPRPT ---
Problems Associated Problem List Diagnoses (1) Proteinuria affecting : (2) Contraction, Romero Osman: (3) LGA (large for gestational age) fetus: (4) Short interval between pregnancies affecting in first trimester, antepartum: (5) Abnormal glucose affecting : (6) Advanced maternal age in multigravida: (7) Unstable lie of fetus: (8) Encounter for induction of labor: Procedures Urinary/Genital [id number]: 16593 ECV Operative Report (Standard) Operative Information Date of Procedure: 03/07/25 Pre-Operative Diagnosis: breech/transverse Post-Operative Diagnosis: vertex Surgery/Procedure Performed: ECV surveillance sensor operator: No Type of Anesthesia: None Procedure Start Time: 18:45 Procedure Stop Time: 19:00 Select all DRAINS/GRAFTS/IMPLANTS that apply: None Estimated Blood Loss: 0 Specimen collected: No Description of surgery: After an NST was performed and found to be reactive category 1 tracing IV was placed CBC type and screen ordered. Patient was placed in the dorsal supine position and confirmed to be transverse back down head to the maternal left a backwards roll was attempted several times and unsuccessful the had converted to full breech at this time therefore a forward roll was attempted and this was successful to convert heart tones were monitored throughout the procedure and noted to be within normal limits in the 130s to 140s with reassuring status. Patient tolerated the procedure well Surgical Findings: cephalic after version Complications Complications: No
[2025-03-06] MEDS: Oxytocin 15 Units/NS 250ml 15 UNITS/250 ML IV.SOLN 2 UNITS IV (19:42)
[2025-03-06] MEDS: 0.9% Normal Saline Single 100 ML IV.SOLN. INTRA-UTER (19:44)
[2025-03-06] MEDS: LACTATED RINGERS 500 ML 999 ML IV (22:22)
[2025-03-06] MEDS: fentaNYL-bupivacaine (epidural) 100 ML BAG EPIDURAL (23:39)
[2025-03-07] VITALS (52 sets, daily range): BP systolic 105–133; BP diastolic 59–74; PULSE 67–93; RESP 15–20; TEMP 36.1–36.6; O2SAT 88–100
--- NOTE | 2025-03-07 01:00 | PCM.PN.BLA ---
Progress Note arom clear fluid iupc placed, s/p epidural cat i tracing continue pit per protocol
[2025-03-07] MEDS: Lactated Ringers 1,000 ML 200 ML IV (01:09)
[2025-03-07] MEDS: 0.9% Saline Lock 10 ML Syringe IV (03:55)
[2025-03-07] MEDS: fentaNYL-bupivacaine (epidural) 100 ML BAG EPIDURAL (04:26)
[2025-03-07] MEDS: Oxytocin 15 Units/NS 250ml 15 UNITS/250 ML IV.SOLN 334 UNITS IV (06:31)
--- NOTE | 2025-03-07 06:57 | EX.PCM.OBVAG ---
Assessment & Plan (1) Encounter for induction of labor: (2) Unstable lie of fetus: (3) Proteinuria affecting : COMMENT: at 34 weeks-normal BP and rest of pre e labs. no pre e sx. (4) Contraction, Romero Osman: COMMENT: fingertip per nursing dilated with less intense/frequency in ctx. (5) LGA (large for gestational age) fetus: COMMENT: 32wk: EFW 69%, AC 97%: rpt 1 hr GCT/normal (6) Advanced maternal age in multigravida: (7) Abnormal glucose affecting : COMMENT: normal 3 hour (8) Short interval between pregnancies affecting in first trimester, antepartum: COMMENT: baby 4 months old when became with this gestation. (9) History of miscarriage, currently : (10) Hx of twin in prior : COMMENT: Fraternal (11) Supervision of high-risk : COMMENT: PRR,, RAMSES 03/27/25, boy,Lakisha Gu & Earnestine(Twins), Elaine Alvarez will be 39 weeks on Elaine's b-day. requests IOL on this day. (12) Inclusion cyst of vulva: COMMENT: +actinomycis:4 wk of amoxil (13) Obesity affecting : COMMENT: HgbA1c (14) : QUALIFIERS: Weeks of gestation: 37 weeks Qualified Code(s): Z3A.37 - 37 weeks gestation of COMMENT: DOC ONLY NIPT low risk, anatomy needs f/u views. (15) Hx of pre-eclampsia in prior , currently : COMMENT: negative labs . bp stable in WP. headache resolved. (16) Abdominal pain: (17) Pelvic floor weakness in female: Maternal Data Information RAMSES Calculator Estimated Delivery Date Method Current WG Current Estimate 03/27/25 LMP (Certain) 37w 1d Vaginal Delivery Maternal Presentation Maternal Presentation: Medically Indicated Induction Maternal Presentation: Unstable lie, advanced maternal age, heart rate variable decelerations prior to induction Type of Induction: Pitocin, Mcnulty Bulb and Amniotomy Medical Reason for Induction: Other (Unstable lie, advanced maternal age, heart rate variable decelerations prior to induction, vaginal inclusion cyst ) Vaginal Delivery Information Procedure Performed: Spontaneous Vaginal Delivery and Other (removal of vaginal inclusion cyst ) Surgeon/Practitioner: Reina Rashid Date of Procedure: 03/07/25 Pre-Procedure Diagnosis: Unstable lie, advanced maternal age, heart rate variable decelerations prior to induction, vaginal inclusion cyst Post-Procedure Diagnosis: Unstable lie, advanced maternal age, heart rate variable decelerations prior to induction, vaginal inclusion cyst Type of anesthesia: Epidural Estimated Blood Loss: 300cc Time of Delivery: 06:26 Findings Description of procedure: Patient began pushing and delivered the head in the STEPHANIE presentation. The head was delivered atraumatically and a loose nuchal cord ?1 was identified and easily reduced over the infant's head. The anterior and posterior shoulders delivered without complication followed by the rest of the infant and the infant was placed on the maternal abdomen. Delayed cord clamping was employed for approximately 60 seconds. Cord was clamped and cut and gentle traction was applied to the cord and the placenta delivered spontaneously immediately following it was noted to be intact with three-vessel cord. The perineum and vagina were inspected and noted to have no laceration.The vaginal inclusion cyst was not actively infected or full of material. The sac was grasped with an kerri clamp. The perineum was also grasped with an kerri clamp to stretch the tissue. An 11 blade was used to make a triangular incision, removing approximately 3 cm in legth of tissue and 1 cm in width. This was then reapproximated with a 3-0 vicryl rapide. EBL was 300cc. Patient and tolerated delivery well. Procedure findings: viable male Jayson Presentation: Vertex Amniotic Membrane Rupture Type: Artificial Amniotic Fluid Description: Clear Placental Delivery Description: Spontaneous Placenta Disposition: [facility] Specimen collected: No Cord Vessel Description: 3 Vessels Cord Entanglement: Around neck x 1, loose Nuchal Cord Compression: Without compression Infant A Gender: Male (1 minute): 8 (5 minute): 9 Delayed Cord Clamping: Yes Leasing Representative assembly worker: No Post Vaginal Deli Medications given after delivery: IV Pitocin Episiotomy Description: None Laceration: None Complication Complications: No Multi Select Codes Urinary/Genital Urinary/Genital CPT Codes: 55749 Vaginal Delivery [facility]
[2025-03-07] MEDS: Oxytocin 15 Units/NS 250ml 15 UNITS/250 ML IV.SOLN 83 UNITS IV (07:15)
--- NOTE | 2025-03-07 13:05 | DCINST_ITS ---
Discharge Instructions DC O2, CPAP, BIPAP needs Home O2 Discharge instructions: No Dressing / Incision Discharge Activity: Return to Normal Activity, May Not Drive (while taking narcotic pain medications.) and May Shower May resume sexual activity in: 4-6 weeks Dressing / Incision Call your doctor if your incision/area has: Continuous Slow Oozing, Sudden Increased Bleeding, Increased Pain/ Swelling, Increased Redness and Foul Smelling Discharge Follow Up Care Please Follow Up With: Reina Rashid DO When: Call [phone] to make an appointment with your doctor in 6 weeks. If you had elevated blood pressure or 4th degree laceration, you will need to be seen in 2 weeks. Test Results: Test results from this visit will be discussed in further detail at your follow- up appointment, if applicable. Discharge Plan Admission Admit Date/Time: 03/06/25 16:35 Attending Provider: Piedad Moreno Primary Care Provider: Yonas Ya Discharge Orders/Prescriptions Prescriptions: No Action PNV-DHA 27 mg iron-1 mg -300 mg capsule 1 cap PO DAILY ferrous sulfate 325 mg (65 mg iron) tablet 325 mg PO Q OTHER DAY (DME) Diltiazem 2% / Lidocaine 5% ointment (compound) Ointment See Rx Instructions .Route Qty: 1 0RF Patient Comments: Not using currently Rx Instructions: place a pea sized amount to the affected area of the rectum twice a day famotidine [Pepcid] 20 mg tablet 20 mg PO BID 90 Days Qty: 180 4RF hydroxyzine pamoate 25 mg capsule 25 mg PO QHS PRN (Reason: itching) Qty: 30 3RF Referrals / Follow Up: Yonas Ya DO [Primary Care Provider] -
[2025-03-08] VITALS (10 sets, daily range): BP systolic 113–127; BP diastolic 56–71; PULSE 70–88; RESP 16; TEMP 36.2–36.7; O2SAT 97–99
[2025-03-08] MEDS: Senna/Docusate Sodium 1 Tablet PO (09:42)
--- NOTE | 2025-03-08 10:12 | PCM.PN.CNM ---
Subjective Subjective Patient doing well without complaints. Tolerating PO. Ambulating and voiding without difficulty. Feeding well. Denies chest pain, shortness of breath, calf pain/swelling, fevers, chills, lightheadedness. Objective Data Objective Data Vital Signs: Vital Signs Temp Pulse Resp BP Pulse Ox O2 Del Method 97.2 F L 83 16 114/71 99 Room Air 03/08/25 03:50 03/08/25 09:33 03/08/25 03:50 03/08/25 09:33 03/08/25 03:50 03/08/25 03:50 Oxygen Delivery Method Room Air Weight: 218 lb Body Mass Index (BMI) 39.9 Intake & Output: Intake and Output for Last 24 Hours 03/06/25 03/07/25 03/08/25 23:59 23:59 23:59 Intake Total 2122.72 / 2122.72 2353.30 / 2353.30 Output Total 900 / 900 1200 / 1200 Balance 1222.72 / 1222.72 1153.30 / 1153.30 Lab / Micro Data 03/06/25 17:45 Physical Exam Const alert and oriented x3 Chest inspection of chest normal and palpation of chest normal Resp normal respiratory effort and normal air movement Cardio regular rate and regular rhythm GI normal to inspection, nondistended, normoactive bowel sounds Uterus Palpation: uterus fundus firm Extremity normal to inspection, full ROM and no calf tenderness Skin no rashes or lesions noted Psych mental status grossly normal Assessment & Plan (1) (spontaneous vaginal delivery): COMMENT: JV boy PLAN: Plan s/p PPD # 1 1. routine post delivery care 2. breast feeding- support given 3. rh positive 4. rubella immune
[2025-03-09 02:24] VITALS: BP 153/87; PULSE 83; PULSE 95; O2SAT 99
[2025-03-09 02:40] VITALS: BP 153/87; PULSE 89; RESP 16; TEMP 36.3; O2SAT 99
[2025-03-09 07:45] VITALS: BP 134/76; PULSE 86
[2025-03-09 07:54] VITALS: BP 134/76; PULSE 86; RESP 16; TEMP 36.7
--- NOTE | 2025-03-09 10:22 | PCM.PN.CNM ---
Subjective Subjective Patient doing well without complaints. Tolerating PO. Ambulating and voiding without difficulty. Feeding well. Denies chest pain, shortness of breath, calf pain/swelling, fevers, chills, lightheadedness. Objective Data Objective Data Vital Signs: Vital Signs Temp Pulse Resp BP Pulse Ox O2 Del Method 98.1 F 86 16 134/76 H 99 Room Air 03/09/25 07:54 03/09/25 07:54 03/09/25 07:54 03/09/25 07:54 03/09/25 02:40 03/09/25 07:54 Oxygen Delivery Method Room Air Weight: 218 lb Body Mass Index (BMI) 39.9 Intake & Output: Intake and Output for Last 24 Hours 03/07/25 03/08/25 03/09/25 23:59 23:59 23:59 Intake Total 2353.30 / 2353.30 Output Total 1200 / 1200 Balance 1153.30 / 1153.30 Lab / Micro Data 03/06/25 17:45 Physical Exam Const alert and oriented x3 Chest inspection of chest normal and palpation of chest normal Resp normal respiratory effort and normal air movement Cardio regular rate and regular rhythm GI normal to inspection, nondistended, normoactive bowel sounds Uterus Palpation: uterus fundus firm Extremity normal to inspection, full ROM and no calf tenderness Skin no rashes or lesions noted Psych mental status grossly normal Assessment & Plan (1) (spontaneous vaginal delivery): COMMENT: MIN boy PLAN: s/p PPD # 1. routine post delivery care 2. breast feeding- support given 3. rh positive 4. rubella immune 5. d/c home today
--- NOTE | 2025-03-09 10:40 | PCM.DC.SUM ---
Providers Date of Admission: 03/06/25 Primary Care Physician: Dr. Yonas Ya DO Reason For Visit: ABLATION Diagnosis Discharge Diagnosis (1) (spontaneous vaginal delivery): Status: Acute Code(s): O80 - Encounter for full-term uncomplicated delivery Plan: s/p PPD # 1. routine post delivery care 2. breast feeding- support given 3. rh positive 4. rubella immune 5. d/c home today Medications at Discharge Home Medications multivitamin no.47-iron fum 27 mg-folate no.1 1 mg-dha 300 mg capsule (PNV-DHA) 1 cap PO DAILY 08/18/23 Diltiazem 2% / Lidocaine 5% ointment (compound) #1 ea 06/24/24 ferrous sulfate 325 mg (65 mg iron) tablet 325 mg PO Q OTHER DAY anemia 08/06/24 Held on 03/06/25. Instructions: pt refusees famotidine 20 mg tablet (Pepcid) 20 mg PO BID heartburn 90 days #180 tabs 09/10/24 hydroxyzine pamoate 25 mg capsule 25 mg PO QHS PRN itching #30 caps 01/03/25 Hospital Course Operations None Procedures None Summary of Care Provided Hospital Course: at term, s/p with normal pp course Physical Exam Const alert and oriented x3 Chest inspection of chest normal and palpation of chest normal Resp normal respiratory effort and normal air movement Cardio regular rate and regular rhythm GI normal to inspection, nondistended, normoactive bowel sounds Uterus Palpation: uterus fundus firm Extremity normal to inspection, full ROM and no calf tenderness Skin no rashes or lesions noted Psych mental status grossly normal Weight / BMI Weight Weight: 218 lb Body Mass Index (BMI) 39.9 ABG / Lab / Microbiology Data 03/06/25 17:45 D/C Instructions May resume sexual activity in: 4-6 weeks Call your doctor if your incision/area has: Continuous Slow Oozing, Sudden Increased Bleeding, Increased Pain/ Swelling, Increased Redness and Foul Smelling Discharge DC O2, CPAP, BIPAP Needs Home O2 Discharge instructions: No Please Follow Up With: Reina Rashid DO When: Call [phone] to make an appointment with your doctor in 6 weeks. If you had elevated blood pressure or 4th degree laceration, you will need to be seen in 2 weeks. Meaningful Use Info Meaningful Use Meaningful Use Diagnoses (Choose all that apply): None applicable Discharge Plan Admission Admit Date/Time: 03/06/25 16:35 Attending Provider: Piedad Moreno Primary Care Provider: Yonas Ya Discharge Orders/Prescriptions Prescriptions: No Action PNV-DHA 27 mg iron-1 mg -300 mg capsule 1 cap PO DAILY ferrous sulfate 325 mg (65 mg iron) tablet 325 mg PO Q OTHER DAY (DME) Diltiazem 2% / Lidocaine 5% ointment (compound) Ointment See Rx Instructions .Route Qty: 1 0RF Patient Comments: Not using currently Rx Instructions: place a pea sized amount to the affected area of the rectum twice a day famotidine [Pepcid] 20 mg tablet 20 mg PO BID 90 Days Qty: 180 4RF hydroxyzine pamoate 25 mg capsule 25 mg PO QHS PRN (Reason: itching) Qty: 30 3RF Referrals / Follow Up: Yonas Ya DO [Primary Care Provider] - Disposition Disposition (needs filled in before D/C Order can be placed): Home, Self Care
--- NOTE | 2025-03-14 14:04 | NURSING ---
Here for outpatient bilirubin draw for infant. Patient states she is doing well and denies any pain. States her bleeding is getting better. Denies any headaches, visual disturbances, or baby blues. Infant is feeding well at breast and taking supplemental breast milk in a bottle. Patient state she is doing better since starting treatment for mastitis. Denies any questions or concerns at this time. Will follow up for outpatient bilirubin checks with over the next several days.
== END 2025-03-09 10:30 | disposition home or self-care (01) | DRG 768 ==
PROVIDERS: Admitting Provider Obstetrics & Gynecology; PCP Family Medicine; Referring Provider Obstetrics & Gynecology; Visit Provider Obstetrics & Gynecology
DX: O76 Abnormality in fetal heart rate and rhythm complicating labor and delivery (principal); Z37.0 Single live birth; O32.1XX0 Maternal care for breech presentation, not applicable or unspecified; N89.8 Other specified noninflammatory disorders of vagina; O99.214 Obesity complicating childbirth; O12.14 Gestational proteinuria, complicating childbirth; O99.814 Abnormal glucose complicating childbirth; O32.0XX0 Maternal care for unstable lie, not applicable or unspecified; Z3A.37 37 weeks gestation of pregnancy; Z87.59 Personal history of other complications of pregnancy, childbirth and the puerperium; O69.81X0 Labor and delivery complicated by cord around neck, without compression, not applicable or unspecified; O36.63X0 Maternal care for excessive fetal growth, third trimester, not applicable or unspecified; O34.63 Maternal care for abnormality of vagina, third trimester; O99.893 Other specified diseases and conditions complicating puerperium; N96 Recurrent pregnancy loss
CPT/HCPCS: 59025; 59050; 76815; 85025; 86780; 86850; 86900; 86901; 99221; A4216; G0378; J2405

== ENCOUNTER → 2025-05-03 | Outpatient (CLI) | payer BC, SELFPAY ==
--- NOTE | 2025-05-03 08:52 | US_ITS ---
PROCEDURE: ABD LIMITED W/ ELASTOGRAPHY REASON FOR EXAM: ABDOMINAL PAIN COMPARISON: None. TECHNIQUE: Procedure Code: [id number] Modality: US Procedure: ABD LIMITED W/ ELASTOGRAPHY Right upper quadrant abdominal ultrasound. [facility] shear wave elastography for non-invasive assessment of liver tissue stiffness. [facility] EPI[facility]. FINDINGS: LIVER: Size: Unremarkable Length: 16.8 cm Echotexture: Normal Contour: Normal Lesions: None identified Elastography: EQI Med: 4.2 kPa EQI Med Addison: 1.17 m/s IQR/Med: 9.0 %* GALLBLADDER: No stones sludge wall thickening or tenderness. COMMON BILE DUCT: Normal measuring 3 mm . PANCREAS: Normal Visualized portions of the right kidney are unremarkable. No right upper quadrant ascites. US/ABD Limited w/ Elastography IMPRESSION: No evidence of hepatic fibrosis. Reference Values: SRU <1.37 m/s (5.7kPa): No to mild fibrosis 1.37 m/s - 2.2 m/s: Moderate to severe fibrosis >2.2 m/s (15kPa): Significant fibrosis / cirrhosis METAVIR Score F2 or higher: 1.34 m/s (5.7kPa) F3 or higher: 1.55 m/s (7.3kPa) F4: 1.80 m/s (10kPa) * If the IQR/Med is >30%, the variance in the measurements is a large and the a ccuracy of the measurement may be in question. Reading Location: [id number]
--- OUTSIDE RECORDS SUMMARY | 2025-05-03 08:53 | XMS RPT_ITS | CCD ---
Author Organization [facility] CliniSyct Care Team Providers Care Market Superintendent Name Role Phone J Luis Jacobson (Historic) Primary Care Prov ider Dr. Cholo Smith Primary Care Provider [phone] Dr. Cholo Smith Referring Provider Dr. Elijah Shafer Attending Provider Dr. Dane Galvan Attending Provider [phone] August Thomas Attending Provider [phone] J Luis Jacobson (Historic) Primary Care Prov ider J Luis Jacobson (Historic) Primary Care Prov ider J Luis Jacobson (Historic) Primary Care Prov ider Dr. Cholo Smith Primary Care Provider Dr. Cholo Smith Referring Provider IMAN Luis Attending Provider Dr. Cholo Smith Primary Care Provider [phone] Dr. Cholo Smith Referring Provider IMAN Luis Attending Provider [phone] J Luis Jacobson (Historic) Primary Care Prov ider Dr. Cholo Smith Primary Care Provider Dr. Cholo Smith Referring Provider Roof LEAD RETAIL SALES ASSOCIATE, LEAD RETAIL SALES ASSOCIATE-Ernestina Christianson Attending Provider Sarah JOSHI, Cholo A Primary Care Provider Dr. Cholo Smith Primary Care Provider [phone] Dr. Cholo Smith Referring Provider [phone] IMAN Loaiza Attending Provider INDIRA, J LUIS NINO (HISTORIC) Primary Care U navailable CHICORELLI, CATHRYN MENG Attending Unavailab le CHICORELLI, CATHRYN MENG Attending Unavailab le ZEWAIL, J LUIS NINO (HISTORIC) Primary Care U navailable CHICORELLI, CATHRYN MENG Attending Unavailab le ZEWAIL, J LUIS NINO (HISTORIC) Primary Care U navailable SARAH, CHOLO A Primary Care Unavailable REGOTTI, KELLY Attending Unavailable SARAH, CHOLO A Primary Care Unavailable CHICORELLI, CATHRYN MENG Attending Unavailab PIERRE De La Rosa Referring Unavailable SARAH, CHOLO A Primary Care Unavailable CHICORELLI, CATHRYN MENG Attending Unavailab fred FABIOLAPIERRE Attending Unavailable SARAH, CHOLO A Primary Care Unavailable ZEWAIL, J LUIS NINO (HISTORIC) Primary Care U navailable CHICORELLI, CATHRYN MENG Attending Unavailab le CHICORELLI, CATHRYN MENG Referring Unavailab le ZEWAIL, J LUIS NINO (HISTORIC) Primary Care U navailable REGOTTI, KELLY Referring Unavailable SARAH, CHOLO A Primary Care Unavailable ZEWAIL, J LUIS NINO (HISTORIC) Primary Care U navailable PROVIDER, UNKNOWN Referring Unavailable SARAH, CHOLO A Primary Care Unavailable ZEWAIL, J LUIS NINO (HISTORIC) Primary Care U navailable PROVIDER, UNKNOWN Admitting Unavailable PROVIDER, UNKNOWN Attending Unavailable Dr. Cholo Smith Primary Care Provider Dr. Cholo Smith Referring Provider IMAN Loaiza Attending Provider IMAN Luis Attending Provider Dr. Cholo Smith Primary Care Provider [phone] Dr. Cholo Smith Referring Provider Dr. Reina Rashid Attending Provider Dr. Cholo Smith Primary Care Provider [phone] Dr. Cholo Smith Referring Provider Dr. Reina Rashid Attending Provider ERI Godinez Attending Provider Dr. Piedad Moreno Attending Provider Sarah JOSHI, Cholo Dorsey Primary Care Provider J Luis Jacobson (Historic) Primary Care Prov ider Dr. Cholo Smith DO Primary Care Provider Dr. Reina Rashid DO Attending Provider Dr. Reina Rashid DO Referring Provider Sarah JOSHI, Dr. Branham Referring Provider [phone] Elijah Shafer DO Attending Provider Soni JOSHI, Dr. Nava Other Provider Avery PORRASCReina Attending Provider Alma BINGHAM-CIvett Attending Provider Alma BINGHAM-CIvett Referring Provider Suyapa Godinez CNM Attending Provider Dr. Cholo Smith DO Primary Care Provider Dr. Reina Rashid DO Attending Provider Dr. Reina Rashid DO Referring Provider Dr. Cholo Smith DO Primary Care Provider Dr. Cholo Smith DO Referring Provider [phone] Dr. Elijah Shafer DO Attending Provider Dr. Mary Jane Wade DO Attending Provider Dr. Mary Jane Wade DO Emergency Provider Josh FORD, Dr. Herbert Attending Provider Josh FORD, Dr. Herbert Referring Provider Sarah JOSHI, Dr. Branham Primary Care Provider [phone] Sarah , Dr. Branham Referring Provider [phone] Sarah , Dr. Branham Primary Care Provider [phone] [facility] , Dr. Branham Referring Provider [phone] Park Romero DO, Dr. Huang Attending Provider Park Romero DO, Dr. Huang Referring Provider Herbert HWANG, Suyapa Attending Provider [phone] Sarah JOSHI, Dr. Branham Primary Care Provider [phone] Sarah JOSHI, Dr. Branham Referring Provider [phone] Park Romero DO, Dr. Huang Attending Provider Park Romero DO, Dr. Huang Referring Provider Suyapa Godinez CNM Referring Provider [phone] Sarah JOSHI, Dr. Branham Primary Care Provider [phone] Sarah DO, Dr. Branham Referring Provider [phone] Herbert ROJOM, Suyapa Attending Provider Calvin BINGHAM-C, Danya Attending Provider Manish CNM, Linda Attending Provider Hammond CNM, Linda Referring Provider Manish CNM, Linda Other Provider Sarah JOSHI, Dr. Branham Primary Care Provider [phone] Sarah DO, Dr. Branham Referring Provider [phone] Josh FORD, Dr. Herbert Attending Provider Herbert ROJOM, Suyapa Other Provider Josh FORD, Dr. Herbert Referring Provider [phone] Josh FORD, Dr. Herbert Other Provider [phone] Dr. Cholo Smith DO Primary Care Provider Sarah JOSHI, Dr. Branham Referring Provider [phone] Park Romero DO, Dr. Huang Attending Provider Park Romero DO, Dr. Huang Referring Provider Herbert CNM, Suyapa Attending Provider [phone] Herbert CNM, Suyapa Referring Provider [phone] Calvin LEAD RETAIL SALES ASSOCIATE-C, Danya Attending Provider [phone] Manish CNM, Linda Attending Provider [phone] Manish CNM, Linda Referring Provider Manish CNM, Linda Other Provider Herbert ROJOM, Suyapa Other Provider [phone] Josh FORD, Dr. Herbert Attending Provider Josh FORD, Dr. Herbert Referring Provider Josh FORD, Dr. Herbert Other Provider [phone] Josh FORD, Dr. Herbert Admit Provider [phone] Casandra LEAD RETAIL SALES ASSOCIATE-C, Janee Attending Provider [phone] REINA GARCIA Referring Unavailab REINA Martinez Attending Unavailable CHOLO SMITH A Primary Care Unavailable CHOLO SMITH A Primary Care Unavailable REINA GARCIA Referring Unavailab le JEREMIAH MANNING Attending Unavailable CHOLO SMITH A Primary Care Unavailable SRUTHI CENTENO Attending Unavailable REINA GARCIA Referring Unavailab le CHOLO SMITH A Primary Care Unavailable MAXIMO SAEZ Attending Unavailable REFERRED, SELF Referring Unavailable BRIANNE MULLINS Attending Unavailable REINA GARCIA Referring Unavailab le CHOLO SMITH A Primary Care Unavailable KONRAD MAS Attending Unavailable REINA GARCIA Referring Unavailab le CHOLO SMITH A Primary Care Unavailable PURA KENDALL Attending Unavailable REINA GARCIA Referring Unavailab le SARAH, CHOLO A Primary Care Unavailable AMINA ESTRADA Attending Unavailable RADHA, REINA R Referring Unavailab le SARAH, CHOLO A Primary Care Unavailable JEREMIAH MANNING Attending Unavailable VANDEVCAROLEE, REINA R Referring Unavailab le SARAH, CHOLO A Primary Care Unavailable SRUTHI CENTENO Attending Unavailable RADHA, REINA R Referring Unavailab le SARAH, CHOLO A Primary Care Unavailable SarahDr. Chloo yu DO Primary Care Physician Park Romero DO, Dr. Huang Attending Physician Sarah JOSHI, Dr. Branham Referring Provider [phone] Herbert HWANG, Suyapa Attending Physician [phone] Calvin LEAD RETAIL SALES ASSOCIATE-C, Danya Attending Physician [phone] Manish ROJOM, Linda Attending Physician [phone] Manish ROJOM, Linda Nurse Practitioner [phone] Herbert HWANG, Suyapa Nurse Practitioner [phone] Josh FORD, Dr. Herbert Attending Physician Josh FORD, Dr. Herbert Nurse Practitioner [phone] Josh FORD, Dr. Herbert Admitting Physician Casandra LEAD RETAIL SALES ASSOCIATE-C, Janee Attending Physician [phone] Soni JOSHI, Dr. Nava Attending Physician [phone] Piedad Moreno Attending Unavailable Sarah, Cholo Referring Unavailable Sarah, Cholo Primary Care Unavailable Piedad Moreno Attending Unavailable Sarah, Cholo Referring Unavailable Sarah, Cholo Primary Care Unavailable Piedad Moreno Admitting Unavailable Piedad Moreno Referring Unavailable Sarah, Cholo Primary Care Unavailable Piedad Moreno Consulting Unavailable Piedad Moreno Attending Unavailable Sarah, Cholo Referring Unavailable Sarah, Cholo Primary Care Unavailable Reina Rashid Attending Unavailabl e Piedad Moreno Admitting Unavailable Sarah, Cholo Primary Care Unavailable Piedad Moreno Referring Unavailable Piedad Moreno Attending Unavailable Sarah, Cholo Referring Unavailable Piedad Moreno Attending Unavailable Sarah, Cholo Primary Care Unavailable Friend, Elijah Attending Unavailable Friend, Elijah Referring Unavailable Sarah, Cholo Primary Care Unavailable Vande Velde, Reina Attending Unavailabl e Sarah, Cholo Referring Unavailable Sarah, Cholo Primary Care Unavailable Vande Velde, Reina Referring Unavailabl e Sarha, Cholo Primary Care Unavailable Vande Velde, Reina Attending Unavailabl e Lisseth Jackson Referring Unavailable JacksonLisseth Attending Unavailable Sarah, Cholo Primary Care Unavailable Sarah, Cholo Primary Care Unavailable Piedad Moreno Attending Unavailable Piedad Moreno Referring Unavailable Sarah, Cholo Primary Care Unavailable Mary Jane Wade Attending Unavailable Vande Velde, Reina Attending Unavailabl e Sarah, Cholo Primary Care Unavailable Vande Velde, Reina Referring Unavailabl e Vande Velde, Reina Referring Unavailabl e Vande Velde, Reina Attending Unavailabl e Sarah, Cholo Primary Care Unavailable Sarah, Cholo Primary Care Unavailable Ivett Marquez Referring Unavailable Ivett Marquez Attending Unavailable Piedad Moreno Attending Unavailable Sarah, Cholo Primary Care Unavailable Piedad Moreno Referring Unavailable Piedad Moreno Attending Unavailable Sarah, Cholo Primary Care Unavailable Sarah, Cholo Primary Care Unavailable Friend, Elijah Referring Unavailable Friend, Elijah Attending Unavailable Friend, Elijah Attending Unavailable Friend, Elijah Referring Unavailable Sarah, Cholo Primary Care Unavailable Friend, Elijah Attending Unavailable Friend, Elijah Referring Unavailable Sarah, Cholo Primary Care Unavailable Sarah, Cholo Referring Unavailable Friend, Elijah Attending Unavailable Sarah, Cholo Primary Care Unavailable Vande Velde, Reina Attending Unavailabl e Sarah, Cholo Referring Unavailable Sarah, Cholo Primary Care Unavailable Sarah, Cholo Referring Unavailable Sarah, Cholo Primary Care Unavailable Piedad Moreno Attending Unavailable Sarah, Cholo Referring Unavailable Sarah, Cholo Primary Care Unavailable Piedad Moreno Attending Unavailable Vande Velde, Reina Attending Unavailabl e Sarah, Cholo Referring Unavailable Sarah, Cholo Primary Care Unavailable Sarah, Cholo Referring Unavailable Sarah, Cholo Primary Care Unavailable Suyapa Godinez Attending Unavailable Suyapa Godinez Referring Unavailable Suyapa Godinez Consulting Unavailable Suyapa Godinez Attending Unavailable Sarah, Cholo Primary Care Unavailable Linda Hammond Attending Unavailable Piedad Moreno Attending Unavailable Sarah, Cholo Primary Care Unavailable MarcanthonyPiedad Referring Unavailable MarcanthonyPiedad Consulting Unavailable Sarah, Cholo Primary Care Unavailable Sarah, Cholo Referring Unavailable Friend, Elijah Attending Unavailable Friend, Elijah Consulting Unavailable Reina Rashid Attending Unavailabl e Sarah, Cholo Referring Unavailable Sarah, Cholo Primary Care Unavailable Reina Rashid Attending Unavailabl e Sarah, Cholo Referring Unavailable Sarah, Cholo Primary Care Unavailable HammondLinda Referring Unavailable HammondLinda Consulting Unavailable HammondLinda Attending Unavailable Sarah, Cholo Primary Care Unavailable Suyapa Godinez Attending Unavailable Sarah, Cholo Referring Unavailable Sarah, Cholo Primary Care Unavailable Sarah, Cholo Referring Unavailable Sarah, Cholo Primary Care Unavailable Reina Rashid Attending Unavailabl e Sarah, Cholo Referring Unavailable Sarah, Cholo Primary Care Unavailable Reina Rashid Attending Unavailabl e Suyapa Godinez Attending Unavailable Sarah, Cholo Referring Unavailable Sarah, Cholo Primary Care Unavailable Sarah, Cholo Referring Unavailable Friend, Elijah Attending Unavailable Sarah, Cholo Referring Unavailable Sarah, Cholo Primary Care Unavailable Reina Rashid Attending Unavailabl e Reina Rashid Attending Unavailabl e Sarah, Cholo Referring Unavailable Sarah, Cholo Primary Care Unavailable Sarah, Cholo Referring Unavailable Janee Guajardo Attending Unavailable Sarah, Cholo Primary Care Unavailable Sarah, Cholo Referring Unavailable Friend, Elijah Attending Unavailable Sarah, Cholo Primary Care Unavailable Sarah, Cholo Primary Care Unavailable Sarah, Cholo Referring Unavailable Ivett Marquez Attending Unavailable Sarah, Cholo Primary Care Unavailable Sarah, Cholo Referring Unavailable Reina Varela Attending Unavailable Linda Hammond Attending Unavailable Hammond, Linda Referring Unavailable Sarah, Cholo Primary Care Unavailable Piedad Moreno Attending Unavailable Sarah, Cholo Primary Care Unavailable Piedad Moreno Referring Unavailable Suyapa Godinez Referring Unavailable Suyapa Godinez Attending Unavailable Sarah, Cholo Primary Care Unavailable Vande Velde, Reina Attending Cholo Ross Primary Care Unavailable Reina Rashid Referring Reina Matthew Attending Cholo Ross Primary Care Unavailable Danya Simpson NP Attending Unavailable Cholo Smith Primary Care Unavailable Suyapa Godinez Attending Unavailable Cholo Smith Primary [facility] [place] Unavailable Suyapa Godinez Referring Unavailable Medications Current Medications Medication Drug Class(es) Dates Sig (Normalized) Sig (Original) cephalexin 500 mg oral capsule (20 sources) Cephalosporin Antibacterial Start: 03-12-2025 Start: 12-08-2022 End: 02-18-2023 Start: 04-28-2012 take 1 capsule by mo uth four times daily at mealtime cephALEXin 500 mg capsule Take 1 capsule by mouth four times daily. With food 40 capsule 0 04/28/2012 Active Comment on above: Take 1 capsule by mo uth four times daily. With food Diltiazem 2% / Lidocaine 5% Ointment (Compound) ointment (20 sources) Start: 06-24-2024 Diltiazem 2% / Lidocaine [...] a day famotidine 20 mg oral tablet (20 sources) Histamine-2 Receptor Antagonist Start: 09-10-2024 ferrous sulfate 325 mg oral tablet (20 sources) Start: 08-18-2023 End: 08-06-2024 Start: 08-18-2023 End: 08-06-2024 take 1 tablet by mouth once daily Ferrous Sulfate 325 mg (65 mg iron) tablet Discontinued 325 mg PO DAILY August 18, 2023 1:00am August 06, 2024 10:46am hydrOXYzine pamoate 25 mg or al capsule (18 sources) Antihistamine Start: 01-03-2025 Start: 01-03-2025 take 1 capsule by mo uth at bedtime as needed Hydroxyzine Pamoate 25 mg capsule Active 25 mg PO AT BEDTIME as needed for itching 30 January 03, 2025 12:00am iron,carb/vit C/vit B12/foli c (IRON 100 PLUS ORAL) (2 sources) iron,carb/vit [...] 15 mg by mouth once daily. Multivit 56-Dpww-Wkglsk 1-Dha (Pnv-Dha) 27 mg iron-1 mg -300 mg capsule (20 sources) Start: 08-18-2023 Multivit 36-Xgwe-Fqppwq 1-Dha (Pnv-Dha) 27 mg iron-1 mg -300 [...] Active Comment on above: Take by mouth. Vitamin B83-Owjze Acid (10 sources) Start: 02-23-2021 take 1 tablet by mouth once daily Vitamin Q34-Dzqhk Acid Active 1 TABLET PO DAILY February 22, 2021 11:00pm Start: 02-23-2021 take 1 tablet by daniela th once daily Vitamin E43-Pawcx Acid Active 1 TABLET PO DAILY February 23, 2021 12:00am (20 sources) Start: 04-15-2025 Start: 08-06-2024 Start: 06-24-2024 End: 04-15-2025 Start: 06-24-2024 Start: 06-24-2024 End: 06-26-2024 Start: 03-14-2024 End: 03-19-2024 Start: 01-30-2024 End: 03-21-2024 Start: 08-18-2023 Start: 07-26-2021 End: 08-18-2023 Start: 02-23-2021 End: 06-04-2024 Start: 04-04-2018 End: 05-22-2018 Start: 01-06-2018 End: 05-22-2018 Start: 01-06-2018 End: 07-26-2021 Completed/Discontinued Medications Medication Drug Class(es) Dates Sig (Normalized) Sig (Original) acetaminophen 325 mg / oxyCODONE hydrochloride 5 mg oral tablet (20 sources) Opioid Agonist Start: 12-08-2022 End: 02-18-2023 Start: 12-08-2022 End: 02-18-2023 Oxycodone-Acetaminophen 5-32 5 mg tablet Discontinued 1 {tbl} PO EVERY [...] 02/22/2022 11/08/2022 Discontinued Start: 07-09-2018 End: 07-16-2018 Start: 07-09-2018 End: 07-16-2018 Oxycodone-Acetaminophen 1 TA [...] 16, 2018 1:09am Start: 06-04-2018 End: 06-11-2018 Start: 06-04-2018 End: 06-11-2018 Oxycodone-Acetaminophen 1 TA [...] Virus Nucleoside Analog DNA Polymerase Inhibitor Start: 04-04-2018 End: 04-07-2018 amoxicillin 500 mg oral tabl et (20 sources) Penicillin-class Antibacterial Start: 08-26-2024 End: 09-23-2024 amoxicillin 875 mg / clavulanate 125 mg oral tablet (20 sources) Penicillin-class Antibacterial Start: 05-28-2021 End: 06-07-2021 Start: 05-28-2021 End: 06-07-2021 Amoxicillin-Pot Clavulanate (Augmentin) 875-125 mg tablet Discontinued 1 {tbl} PO Q12H 20 10 0 May 28, 2021 1:00am June 06, 2021 1:00am June 07, 2021 1:01am Acute sinusitis, unspecified azithromycin 250 mg oral tab let (20 sources) Macrolide Antimicrobial Start: 02-08-2022 End: 05-30-2023 biotin 1 mg oral capsule (20 sources) Start: 04-26-2021 End: 07-26-2021 clotrimazole 10 mg/ml vagina l cream (20 sources) Azole Antifungal Start: 12-09-2024 End: 12-16-2024 Start: 10-15-2024 End: 10-22-2024 Start: 10-15-2024 End: 10-15-2024 Clotrimazole 2 % cream Disco ntinued 1 NMA VAGINAL AT BEDTIME 21 7 0 October 15, 2024 12:00am October 21, 2024 12:00am October 15, 2024 3:15pm Start: 10-11-2024 End: 10-15-2024 Cranberry Kuzp-Y-Tswitgtn Co ag (10 sources) Start: 04-04-2018 End: 05-22-2018 Cranberry Svyq-L-Iiqjnszv Co ag Discontinued 1 EACH PO DAILY April 03, 2018 11:00pm May 22, 2018 1:20pm Start: 04-04-2018 End: 05-22-2018 Cranberry Rtfz-D-Jejgnwin Co ag Discontinued 1 EACH PO DAILY April 04, 2018 12:00am May 22, 2018 2:20pm Cranberry Fwea-D-Sdgtkyjr Coag 1 EACH tablet (20 sources) Start: 04-04-2018 End: 05-22-2018 take 1 tablet by mouth once daily Cranberry Jpqz-U-Wplhbdwz Coag 1 EACH tablet Discontinued 1 NMA PO DAILY April 04, 2018 12:00am May 22, 2018 2:20pm UTI prevention Start: 04-04-2018 End: 05-22-2018 take 1 tablet by mouth once daily Cranberry Fonb-Q-Khiihpfm Coag 1 EACH tablet Discontinued 1 NMA PO DAILY April 04, 2018 12:00am May 22, 2018 2:20pm docusate sodium 100 mg oral capsule (20 sources) Start: 08-18-2023 End: 05-10-2024 Start: 06-01-2020 End: 07-26-2021 Start: 06-01-2020 End: 07-26-2021 take 1 capsule by mouth once daily Docusate Sodium (Dulcolax Stool Softener (Dss)) 100 mg capsule Discontinued 100 mg PO DAILY June 01, 2020 1:00am July 26, 2021 2:12pm stool softner Start: 06-04-2018 End: 09-27-2018 drospirenone / Ethinyl Estradiol (4 sources) Progestin, Estrogen take 1 tablet by mouth once daily Drospirenone-Ethinyl Estradiol 3-20 mg-mcg ORAL per tablet one daily 0 Active Comment on above: one daily fluconazole 150 mg oral tablet (20 sources) Azole Antifungal Start: End: 025 Start: 11-14-2023 End: 02-19-2024 Start: 02-18-2023 End: 08-18-2023 folic acid 0.8 mg oral capsu le (20 sources) Start: 08-06-2024 End: 02-28-2025 Start: 07-14-2020 End: 08-12-2020 hydrocortisone acetate 30 mg rectal suppository (20 sources) Corticosteroid Start: 04-29-2021 End: 07-26-2021 ibuprofen 800 mg oral tablet (4 sources) [...] capsule (20 sources) Chloride Channel Activator Start: 06-04-2024 End: 06-26-2024 Start: 06-04-2024 End: 06-24-2024 take 1 capsule by mouth once daily Lubiprostone 24 mcg capsule Discontinued 24 ug PO DAILY June 04, 2024 1:00am June 24, 2024 10:27am Start: 04-23-2024 End: 05-10-2024 Start: 04-23-2024 End: 05-10-2024 take 1 capsule [...] 08, 2022 12:54pm Start: 07-20-2021 End: 02-18-2023 Start: 07-20-2021 End: 02-18-2023 take 1 capsule by mouth twice daily Lubiprostone (Amitiza) 24 mcg capsule Discontinued 24 ug PO TWICE A DAY 60 0 October 08, 2022 12:53pm February 18, 2023 9:47am Magnesium (20 sources) Start: 01-30-2024 End: 03-21-2024 take 1 tablet by mouth once daily Magnesium 200 mg tablet Discontinued 200 mg PO DAILY January 30, 2024 12:00am March 21, 2024 2:04pm mecobalamin 1 mg chewable tablet (20 sources) Start: 07-06-2020 End: 08-12-2020 metroNIDAZOLE 500 mg oral tablet (20 sources) Nitroimidazole Antimicrobial Start: 06-28-2024 End: 07-05-2024 Start: 03-14-2024 End: 03-19-2024 Start: 03-14-2024 End: 03-19-2024 Metronidazole 0.75 % [...] 19, 2024 12:04am Start: 03-12-2024 End: 03-17-2024 Start: 03-12-2024 End: 03-17-2024 Metronidazole (Metrogel) 1 [...] DAILY July 26, 2021 1:00am Multivitamin tablet (20 sources) Start: 07-26-2021 End: 08-18-2023 Multivitamin tablet Discontinued 1 {tbl} PO DAILY July 26, 2021 1:00am August 18, 2023 10:02am nystatin 100 unt/mg topical powder (20 sources) Polyene Antifungal Start: 06-24-2024 End: 06-26-2024 Start: 05-10-2024 End: 06-24-2024 Start: 05-10-2024 End: 06-24-2024 Nystatin 100,000 unit/gram c ream Discontinued 1 NMA TOPICAL TWICE A DAY 30 4 May 10, 2024 12:00am June 24, 2024 10:27am Start: 01-01-2024 End: 01-08-2024 Start: 01-01-2024 End: 01-08-2024 take 1 mL by mouth three times daily Nystatin 100,000 unit/mL suspension Discontinued 5 mL PO THREE TIMES A DAY 105 7 0 January 01, 2024 12:00am January 07, 2024 12:00am January 08, 2024 12:04am swish and swallow Nystatin 100,000 unit/gram powder (20 sources) Start: 06-24-2024 End: 06-26-2024 Nystatin 100,000 [...] Serotonin-3 Receptor Antagonist Start: 08-21-2023 End: 03-19-2024 Start: 12-08-2022 End: 02-18-2023 Start: 02-22-2022 End: 11-21-2022 take 1 tablet by mouth every eight hours as needed ondansetron (ZOFRAN) 4 mg tablet Take 1 tablet by mouth every 8 hours as needed for nausea/vomiting. 10 tablet 02/22/2022 11/21/2022 Discontinued Comment on above: Take 1 tablet by daniela every 8 hours as needed for nausea/vomiting. oxyCODONE hydrochloride 5 mg oral tablet (20 sources) Opioid Agonist Start: 06-11-2024 End: 06-16-2024 permethrin 50 mg/ml topical cream (20 sources) Pyrethroid Start: 05-30-2023 End: 08-18-2023 Start: 05-30-2023 End: 08-18-2023 Permethrin 5 % cream Discont inued 1 NMA TOPICAL ONCE 60 0 May [...] 1/2 tube in 10-12 days phentermine hydrochloride 37 .5 mg oral tablet (20 sources) Sympathomimetic Amine Anorectic Start: 07-26-2021 End: 02-18-2023 Start: 07-26-2021 End: 02-18-2023 Phentermine 37.5 mg tablet D iscontinued 37.5 mg PO July 26, 2021 1:00am February 18, 2023 9:47am polyethylene glycol 3350 170 00 mg powder for oral solution (20 sources) Osmotic Laxative Start: 05-10-2024 End: 02-28-2025 Start: 08-18-2023 End: 03-21-2024 Start: 03-29-2021 End: 07-26-2021 Start: 03-29-2021 End: 07-26-2021 Polyethylene Glycol 3350 [...] hemorrhage, unspecified colonoscopy Start: 04-04-2018 End: 05-22-2018 Start: 04-04-2018 End: 05-22-2018 take 119 g by mouth once daily Polyethylene Glycol 3350 119 GM powder Discontinued 119 g PO DAILY April 04, 2018 12:00am May 22, 2018 2:20pm constipation Comment on above: Take 17 g by mouth o nce daily. predniSONE 10 mg oral tablet (20 sources) Start: 07-20-2022 End: 10-08-2022 One Daily Tablet (20 sources) Start: 01-06-2018 [...] injection (NAROPIN) terconazole 4 mg/ml vaginal cream (20 sources) Azole Antifungal Start: 10-23-2023 End: 10-30-2023 Start: 10-23-2023 End: 10-30-2023 Terconazole 0.4 % cream Disc ontinued 1 NMA VAGINAL AT BEDTIME 45 7 0 October 23, 2023 12:00am October 29, 2023 12:00am October 30, 2023 12:05am Start: 10-23-2023 Terconazole Ac tive 1 APPFUL VAGINAL AT BEDTIME 45 7 October 23, 2023 12:00am topiramate 25 mg oral tablet (20 sources) Start: 09-01-2021 End: 02-18-2023 Start: 09-01-2021 End: 02-18-2023 Topiramate 25 mg tablet Disc ontinued NMA PO September 01, 2021 1:00am February 18, 2023 9:48am Start: 09-01-2021 End: 02-18-2023 Topiramate Discontinued TAB PO September 01, 2021 1:00am February 18, 2023 9:48am 1 ml triamcinolone acetonide 40 mg/ml injection (1 source) Corticosteroid Start: 07-06-2022 End: 07-06-2022 triamcinolone acetonide 80 mg injection (KeNALog 40) Start: 07-06-2022 End: 07-06-2022 triamcinolone acetonide 80 m g injection (KeNALog 40) Vitamin G26-Bhimt Acid 1-0.8 mg Tablet (20 sources) Start: 02-23-2021 End: 06-04-2024 Vitamin M25-Msxdp Acid 1-0.8 mg Tablet Discontinued 1 {tbl} PO DAILY February 23, 2021 12:00am June 04, 2024 4:15pm Problems Active Problems Problem Classification Problem Date Documented Da te Episodic/Chronic Abdominal hernia (20 sources) Umbilical hernia; Translations: [Umbilical hernia without obstruction or gangrene] 01-14-2021 Episodic Abdominal pain (20 sources) Abdominal pain; Translations: [Unspecified abdominal pain] Onset: 5 07-08-2024 Episodic Allergic reactions (20 sources) Allergic disorder of skin; Translations: [Allergic contact dermatitis, unspecified cause] 07-20-2022 Episodic Anal and rectal conditions (20 sources) Anal fissure; Translations: [Anal fissure, unspecified] Onset: 5 08-12-2020 Episodic Deficiency and other anemia (20 sources) Chronic anemia; Translations: [Anemia, unspecified] 04-23-2024 Episodic Deficiency and other anemia (2 sources) Anemia, unspecified; Translations: [Anemia, unspecified] Onset: 5 Episodic Diabetes or abnormal glucose tolerance complicating ; childbirth; or the puerperium (20 sources) Abnormal glucose level; Translations: [Abnormal glucose complicating ] Onset: 5 12-26-2024 Episodic Comment on above: needs 3 hour normal 3 hour Early or threatened labor (20 sources) Sandoval Osman contractions; Translations: [False labor, unspecified] Onset: 5 02-07-2025 Episodic Comment on above: fingertip per nursin g dilated with less intense/frequency in ctx. Gastrointestinal hemorrhage (20 sources) Lower gastrointestinal hemorrhage; Translations: [Gastrointestinal hemorrhage, unspecified] 03-29-2021 Episodic Hemorrhoids (20 sources) Hemorrhoids; Translations: [Unspecified hemorrhoids] Onset: 5 09-07-2007 Episodic Hypertension complicating ; childbirth and the puerperium (20 sources) Hypertension complicating ; Translations: [Unspecified maternal hypertension, third trimester] 02-22-2024 Chronic Comment on above: repeat bp in office WNL. preeclampsia labs done in triage 02/19- [place] given. fu in office to monitor bps and follow to see if recurrent elevation Hypertension complicating ; childbirth and the puerperium (20 sources) -induced hypertension; Translations: [Gestational [-induced] hypertension without significant proteinuria, unspecified trimester] Onset: 5 03-20-2024 Episodic Comment on above: resolved pp Immunizations and screening for infectious disease (1 source) Encounter for immunization; Translations: [Encounter for immunization] Onset: Episodic Malposition; malpresentation (20 sources) Breech presentation; Translations: [Maternal care for breech presentation, not applicable or unspecified] Onset: 5 02-27-2025 Episodic Comment on above: plan ECV tomorrow an d IOL 37 weeks Mycoses (20 sources) Perianal candidiasis; Translations: [Other sites of candidiasis] Onset: 5 06-24-2024 Episodic Noninfectious gastroenteritis (20 sources) Lymphocytic colitis; Translations: [Lymphocytic colitis] Onset: Chronic Other aftercare (1 source) Surgical follow-up; Translations: [Encounter for follow-up examination after completed treatment for conditions other than malignant neoplasm] Episodic Other complications of ; puerperium affecting management of mother (20 sources) Large for gestation age fetus 02-05-2025 Episodic Comment on above: 32wk: EFW 69%, AC 97 %: rpt 1 hr GCT/normal Other complications of ; puerperium affecting management of mother (4 sources) Mastitis associated with ; Translations: [Nonpurulent mastitis associated with ] 03-13-2025 Episodic Other complications of ; puerperium affecting management of mother (1 source) Nonpurulent mastitis associated with ; Translations: [Nonpurulent mastitis associated with ] Onset: 5 Episodic Other complications of (20 sources) Maternal [...] became with this gestation. Other complications of (20 sources) Proteinuria; Translations: [Gestational proteinuria, unspecified trimester] 02-14-2025 Episodic Comment on above: at 34 weeks-normal B P and rest of pre e labs. no pre e sx. Other complications of (20 sources) Reduced movement; Translations: [Decreased movements, unspecified trimester, not applicable or unspecified] 02-14-2025 Episodic Comment on above: reactive NST and BPP Other complications of (1 source) Supervision of elderly multigravida, third trimester; Translations: [Supervision of elderly multigravida, third trimester] Onset: 5 Episodic Other complications of (2 sources) Gestational proteinuria, unspecified trimester; Translations: [Gestational proteinuria, unspecified trimester] Onset: 5 Episodic Other complications of (2 sources) Supervision of other high risk pregnancies, first trimester; Translations: [Supervision of other high risk pregnancies, first trimester] Onset: 5 Episodic Other complications of (1 source) Unspecified abnormal findings on screening of mother; Translations: [Unspecified abnormal findings on screening of mother] Onset: 5 Episodic Other complications of (1 source) Decreased movements, unspecified trimester, not applicable or unspecified; Translations: [Decreased movements, unspecified trimester, not applicable or unspecified] Onset: 5 Episodic Other complications of (1 source) Decreased movements, third trimester, not applicable or unspecified; Translations: [Decreased movements, third trimester, not applicable or unspecified] Onset: 5 Episodic Other connective tissue disease (13 sources) Trochanteric bursitis of right hip; Translations: [Trochanteric bursitis, right hip] Onset: 2 Resolved: 2 Episodic Other connective tissue disease (8 sources) [...] leg] 05-12-2023 Episodic Other female genital disorders (20 sources) Retroverted uterus; 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 uterus] 08-18-2023 Episodic Other female genital disorders (4 sources) Malposition of uterus; 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 uterus] 08-21-2023 Episodic Other female genital disorders (20 sources) Cyst of vulva; Translations: [Vulvar cyst] 08-26-2024 Episodic Comment on above: +actinomycis:4 wk of amoxil Other female genital disorders (20 sources) Vaginal discharge; Translations: [Other specified noninflammatory disorders of vagina] 08-06-2024 Episodic Other female genital disorders (1 source) Pain in pelvis; Translations: [Pelvic cramping] 10-20-2024 Episodic Other female genital disorders (2 sources) [...] risk, anato my needs f/u views. Other skin disorders (3 sources) Rash and [...] Translations: [Pain, unspecified] Episodic Residual codes; unclassified (20 sources) Gestation period, 35 weeks; Translations: [35 [...] 5 Episodic Residual codes; unclassified (1 source) 37 weeks gestation of ; Translations: [37 weeks gestation of ] Onset: 5 Episodic Residual codes; unclassified (1 source) 36 weeks gestation of ; Translations: [36 weeks gestation of ] Onset: 5 Episodic Residual codes; unclassified (2 sources) 34 weeks gestation of ; Translations: [34 weeks gestation of ] Onset: Episodic Skin and subcutaneous tissue infections (20 [...] of urination; Translations: [Dysuria] Onset: 10-07-2024 Episodic Hemorrhage during ; abruptio placenta; placenta previa (20 sources) Bleeding from female genital tract during ; Translations: [Antepartum hemorrhage, unspecified, unspecified trimester] Onset: 10-15-2024 10-11-2024 Episodic Other and unspecified benign neoplasm (20 sources) Melanocytic nevus of trunk; Translations: [Melanocytic nevi of trunk] Onset: 08-30-2010 08-30-2010 Episodic Other complications of (1 source) Supervision of elderly multigravida, first trimester; Translations: [Supervision of elderly multigravida, first trimester] Onset: 11-11-2024 Episodic Other connective tissue disease (3 sources) [...] in right hip] Onset: 07-06-2022 Episodic Other screening for suspected conditions (not mental disorders or infectious disease) (1 source) Encounter for screening for diabetes mellitus; Translations: [Encounter for screening for diabetes mellitus] Onset: 01-20-2025 Episodic Other skin disorders (20 sources) Scar; Translations: [Scar conditions and fibrosis of skin] Onset: 08-30-2010 08-30-2010 Episodic Other skin disorders (20 sources) Hypertrophic scar; Translations: [Hypertrophic scar] Onset: 08-30-2010 08-30-2010 Episodic Residual codes; unclassified (1 source) 29 weeks gestation of ; Translations: [29 weeks gestation of ] Onset: 01-13-2025 Episodic Residual codes; unclassified (1 source) 16 weeks gestation of ; Translations: [16 weeks gestation of ] Onset: 10-15-2024 Episodic Residual codes; unclassified (1 source) 15 weeks gestation of ; Translations: [15 weeks gestation of ] Onset: 10-07-2024 Episodic Residual codes; unclassified (1 source) 9 weeks gestation of ; Translations: [9 weeks gestation of ] Onset: 08-26-2024 Episodic Results Test Name Value Interpretation Reference Range Facility Gastroenterology Visit Repor ton 04-15-2025 Gastroenterology Visit Report Normal [facility] MR/BMS.BBCon 03-13-2025 MR/BMS.BBC Normal [facility] Discharge Instructionon 02-08 Discharge Instruction Normal [facility] MR/OB.VAGDELIon 03-07-2025 MR/OB.VAGDELI Normal [facility] Absolute lymphocyte countOrd ered By: Piedad Josh on 03-06-2025 Lymphocytes Auto (Unsp spec) [#/Vol] 1.59 10*3/uL 0.83-4.51 [facility] Automated lymphocyte count a s percentage of total leukocytesOrdered By: Piedad Moreno on 03-06-2025 Lymphocytes/100 WBC Auto (Unsp spec) 14.7 % Low 19-41 [facility] Basophil percentageOrdered B y: Piedda Moreno on 03-06-2025 Basophils/100 WBC (Bld) 0.4 % 0-1 [facility] CBC W/Diff, Automatedon 02-08 Absolute Lymph 1.59 X10 3/uL Normal 0.83-4.51 [facility] Comment on above: Performed By: #### B TS, L100.0100 ####[facility] [address] [place], [address] Absolute Neut 8.4 X10 3/uL High 2.0-7.7 [facility] Comment on above: Performed By: #### Annmarie TS, L100.0100 ####[facility] [address] [place], [address] Basophils/100 WBC (Bld) 0.4 % Normal 0-1 [facility] Comment on above: Performed By: #### Annmarie ELLIOTT, L100.0100 ####[facility] [address] [place], [address] Eosinophils/100 WBC (Bld) 1.5 % Normal 0-5 [facility] Comment on above: Performed By: #### Annmarie ELLIOTT, L100.0100 ####[facility] [address] [place], [address] Erythrocyte distribution width (RBC) [Ratio] 13.2 % Normal 11.6-14.6 [facility] Comment on above: Performed By: #### Annmarie ELLIOTT, L100.0100 ####[facility] [address] [place], [address] Hematocrit (Bld) [Volume fraction] 33.6 % Low 37-47 [facility] Comment on above: Performed By: #### Annmarie ELLIOTT, L100.0100 ####[facility] [address] [place], [address] Hemoglobin (Bld) [Mass/Vol] 11.6 g/dL Low 12.0-15.0 [facility] Comment on above: Performed By: #### Annmarie ELLIOTT, L100.0100 ####[facility] [address] [place], [address] IG% 0.600 Normal 0.0-0.9 [facility] Comment on above: Result Comment: IG% - Immature Granulocytes (promyelocytes, myelocytes andmetamyelocytes) > 1% indicates that a LEFT SHIFT is Present. Performed By: #### Annmarie ELLIOTT, L100.0100 ####[facility] [address] [place], [address] Lymphocytes/100 WBC (Bld) 14.7 % Low 19-41 [facility] Comment on above: Performed By: #### Annmarie ELLIOTT, L100.0100 ####[facility] [address] [place], [address] MCH (RBC) [Entitic mass] 29.7 pg Normal 27.0-32.0 [facility] Comment on above: Performed By: #### Annmarie ELLIOTT, L100.0100 ####[facility] [address] [place], [address] MCHC (RBC) [Mass/Vol] 34.5 g/dL Normal 32-36 [facility] Comment on above: Performed By: #### Annmarie ELLIOTT, L100.0100 ####[facility] [address] [place], [address] MCV (RBC) [Entitic vol] 85.9 fL Normal 81-99 [facility] Comment on above: Performed By: #### Annmarie ELLIOTT, L100.0100 ####[facility] [address] [place], [address] Monocytes/100 WBC (Bld) 5.5 % Normal 0-10 [facility] Comment on above: Performed By: #### Annmarie ELLIOTT, L100.0100 ####[facility] [address] [place], [address] Neutrophils/100 WBC (Bld) 77.3 % High 47-70 [facility] Comment on above: Performed By: #### Annmarie ELLIOTT, L100.0100 ####[facility] [address], [address] Nucleated RBC (Bld) [#/Vol] 0 10*3/uL Normal 0-5 [facility] Comment on above: Performed By: #### Annmarie ELLIOTT, L100.0100 ####[facility] [address] [place], [address] Platelet mean volume (Bld) [Entitic vol] 11.1 fL Normal 6.2-12.0 [facility] Comment on above: Performed By: #### B LEXI, L100.0100 ####[facility] [address] [place], [address] Platelets (Bld) [#/Vol] 196 10*3/uL Normal 150-450 [facility] Comment on above: Performed By: #### Annmarie ELLIOTT, L100.0100 ####[facility] [address] [place], [address] RBC (Bld) [#/Vol] 3.91 10*6/uL Low 4.2-5.4 [facility] Comment on above: Performed By: #### Annmarie ELLIOTT, L100.0100 ####[facility] [address] [place], [address] RDW SD 40.7 fl Normal 35.1-43.9 [facility] Comment on above: Performed By: #### Annmarie ELLIOTT, L100.0100 ####[facility] [address] [place], [address] WBC (Bld) [#/Vol] 10.8 10*3/uL Normal 4.4-11.0 [facility] Comment on above: Performed By: #### Annmarie ELLIOTT, L100.0100 ####[facility] [address] [place], [address] Eosinophil percentageOrdered By: Piedad Moreno on 03-06-2025 Eosinophils/100 WBC (Bld) 1.5 % 0-5 [facility] Erythrocyte distribution wid th ratioOrdered By: Piedad Moreno on 03-06-2025 Erythrocyte distribution width (RBC) [Ratio] 13.2 % 11.6-14.6 [facility] Erythrocyte distribution wid th standard deviationOrdered By: Piedad Moreno on 03-06-2025 Erythrocyte distribution width (RBC) [Ratio] 40.7 fl 35.1-43.9 [facility] H AND P Exam - OB/GYNon 02-08 H&P Exam - LIFE SCIENCE RESEARCH ASSISTANT Normal [facility] Hematocrit Auto (Bld) [Volum e fraction]Ordered By: Piedad Moreno on 03-06-2025 Hematocrit (Bld) [Volume fraction] 33.6 % Low 37-47 [facility] Hemoglobin measurementOrdere d By: Piedad Moreno on 03-06-2025 Hemoglobin (Bld) [Mass/Vol] 11.6 g/dL Low 12.0-15.0 [facility] Immature granulocytes/100 WB C Auto (Bld)Ordered By: Piedad Moreno on 03-06-2025 Immature granulocytes/100 WBC (Bld) 0.600 % 0.0-0.9 [facility] MCV (mean corpuscular volume ) determinationOrdered By: Piedad Moreno on 03-06-2025 MCV (RBC) [Entitic vol] 85.9 fL 81-99 [facility] Mean corpuscular hemoglobin (MCH) determinationOrdered By: Piedad Moreno on 03-06-2025 MCH (RBC) [Entitic mass] 29.7 pg 27.0-32.0 [facility] Monocyte percentageOrdered B y: Piedad Moreno on 03-06-2025 Monocytes/100 WBC (Bld) 5.5 % 0-10 [facility] Neutrophil percentageOrdered By: Piedad Moreno on 03-06-2025 Neutrophils/100 WBC (Bld) 77.3 % High 47-70 [facility] No Panel InformationOrdered By: Piedad Moreno on 03-06-2025 Negative [facility] Sales Operations Specialist Office Visit Reporton 03-06-2025 Sales Operations Specialist Office Visit Report Normal [facility] Operative Reporton Operative Report Normal [facility] Platelet countOrdered By: Ajit Moreno on 03-06-2025 Platelets (Bld) [#/Vol] 196 10*3/uL 150-450 [facility] RBC Auto (Bld) [#/Vol]Ordere d By: Piedad Moreno on 03-06-2025 RBC (Bld) [#/Vol] 3.91 10*6/uL Low 4.2-5.4 [facility] Syphilis Antibodieson 2024 Syphilis Abs Non-Reactive Normal Nonreactive [facility] Comment on above: Performed By: #### L 509.8002 ####[facility] [address] [place], [place], [id number] Type AND Screenon 03-06-2025 ABO and Rh group Nom (Bld) Blood group A Rh(D) positive Normal [facility] Comment on above: Order Comment: Labor Performed By: #### B TS, L100.0100 ####[facility] [address] [place], [place], [address] White blood cell (WBC) count Ordered By: Piedad Moreno on 03-06-2025 WBC (Bld) [#/Vol] 10.8 10*3/uL 4.4-11.0 [facility] No Panel InformationOrdered By: Reina Romero on 03-05-2025 Negative [facility] Sales Operations Specialist Office Visit Reporton 03-05-2025 Sales Operations Specialist Office Visit Report Normal [facility] Rule out Beta Strep (Grp. B) on 03-01-2025 BONI Group B Beta Streptococcus is not isolated. Normal [facility] Comment on above: Performed By: #### M 100.2380 ####[facility] [address] [place], [place], [id number] Absolute lymphocyte countOrd ered By: Piedad Moreno on 02-28-2025 Lymphocytes Auto (Unsp spec) [#/Vol] 1.66 10*3/uL 0.83-4.51 [facility] Absolute neutrophil countOrd ered By: Piedad Moreno on 02-28-2025 Neutrophils (Bld) [#/Vol] 5.5 10*3/uL 2.0-7.7 [facility] Automated lymphocyte count a s percentage of total leukocytesOrdered By: Piedad Moreno on 02-28-2025 Lymphocytes/100 WBC Auto (Unsp spec) 20.8 % 19-41 [facility] Basophil percentageOrdered B y: Piedad Moreno on 02-28-2025 Basophils/100 WBC (Bld) 0.8 % 0-1 [facility] CBC W/Diff, Automatedon 08-2 2-2024 Absolute Lymph 1.66 X10 3/uL Normal 0.83-4.51 [facility] Comment on above: Performed By: #### L 100.0100 ####[facility] [address] [place], [address] Absolute Neut 5.5 X10 3/uL Normal 2.0-7.7 [facility] Comment on above: Performed By: #### L 100.0100 ####[facility] [address] [place], [address] Basophils/100 WBC (Bld) 0.8 % Normal 0-1 [facility] Comment on above: Performed By: #### L 100.0100 ####[facility] [address] [place], [address] Eosinophils/100 WBC (Bld) 3.9 % Normal 0-5 [facility] Comment on above: Performed By: #### L 100.0100 ####[facility] [address] [place], [address] Erythrocyte distribution width (RBC) [Ratio] 13.2 % Normal 11.6-14.6 [facility] Comment on above: Performed By: #### L 100.0100 ####[facility] [address] [place], [address] Hematocrit (Bld) [Volume fraction] 33.1 % Low 37-47 [facility] Comment on above: Performed By: #### L 100.0100 ####[facility] [address] [place], [address] Hemoglobin (Bld) [Mass/Vol] 11.4 g/dL Low 12.0-15.0 [facility] Comment on above: Performed By: #### L 100.0100 ####[facility] [address] [place], [address] IG% 0.900 Normal 0.0-0.9 [facility] Comment on above: Result Comment: IG% - Immature Granulocytes (promyelocytes, myelocytes andmetamyelocytes) > 1% indicates that a LEFT SHIFT is Present. Performed By: #### L 100.0100 ####[facility] [address] [place], [address] Lymphocytes/100 WBC (Bld) 20.8 % Normal 19-41 [facility] Comment on above: Performed By: #### L 100.0100 ####[facility] [address] [place], [address] MCH (RBC) [Entitic mass] 30.1 pg Normal 27.0-32.0 [facility] Comment on above: Performed By: #### L 100.0100 ####[facility] [address] [place], [address] MCHC (RBC) [Mass/Vol] 34.4 g/dL Normal 32-36 [facility] Comment on above: Performed By: #### L 100.0100 ####[facility] [address] [place], [address] MCV (RBC) [Entitic vol] 87.3 fL Normal 81-99 [facility] Comment on above: Performed By: #### L 100.0100 ####[facility] [address] [place], [address] Monocytes/100 WBC (Bld) 5.0 % Normal 0-10 [facility] Comment on above: Performed By: #### L 100.0100 ####[facility] [address] [place], [address] Neutrophils/100 WBC (Bld) 68.6 % Normal 47-70 [facility] Comment on above: Performed By: #### L 100.0100 ####[facility] [address] [place], [address] Nucleated RBC (Bld) [#/Vol] 0 10*3/uL Normal 0-5 [facility] Comment on above: Performed By: #### L 100.0100 ####[facility] [address] [place], [address] Platelet mean volume (Bld) [Entitic vol] 11.2 fL Normal 6.2-12.0 [facility] Comment on above: Performed By: #### L 100.0100 ####[facility] [address] [place], [address] Platelets (Bld) [#/Vol] 176 10*3/uL Normal 150-450 [facility] Comment on above: Performed By: #### L 100.0100 ####[facility] [address] [place], [address] RBC (Bld) [#/Vol] 3.79 10*6/uL Low 4.2-5.4 [facility] Comment on above: Performed By: #### L 100.0100 ####[facility] [address] [place], [address] RDW SD 41.7 fl Normal 35.1-43.9 [facility] Comment on above: Performed By: #### L 100.0100 ####[facility] [address] [place], [address] WBC (Bld) [#/Vol] 8.0 10*3/uL Normal 4.4-11.0 [facility] Comment on above: Performed By: #### L 100.0100 ####[facility] [address] [place], [address] Eosinophil percentageOrdered By: Piedad Moreno on 02-28-2025 Eosinophils/100 WBC (Bld) 3.9 % 0-5 [facility] Erythrocyte distribution wid th ratioOrdered By: Piedad Moreno on 02-28-2025 Erythrocyte distribution width (RBC) [Ratio] 13.2 % 11.6-14.6 [facility] Erythrocyte distribution wid th standard deviationOrdered By: Piedad Moreno on 02-28-2025 Erythrocyte distribution width (RBC) [Ratio] 41.7 fl 35.1-43.9 [facility] Hematocrit Auto (Bld) [Volum e fraction]Ordered By: Piedad Moreno on 02-28-2025 Hematocrit (Bld) [Volume fraction] 33.1 % Low 37-47 [facility] Hemoglobin measurementOrdere d By: Piedad Moreno on 02-28-2025 Hemoglobin (Bld) [Mass/Vol] 11.4 g/dL Low 12.0-15.0 [facility] Immature granulocytes/100 WB C Auto (Bld)Ordered By: Piedad Moreno on 02-28-2025 Immature granulocytes/100 WBC (Bld) 0.900 % 0.0-0.9 [facility] Comment on above: IG% - Immature Granu locytes (promyelocytes, myelocytes and metamyelocytes) > 1% indicates that a LEFT SHIFT is Present. MCV (mean corpuscular volume ) determinationOrdered By: Piedad Moreno on 02-28-2025 MCV (RBC) [Entitic vol] 87.3 fL 81-99 [facility] Mean corpuscular hemoglobin (MCH) determinationOrdered By: Piedad Moreno on 02-28-2025 MCH (RBC) [Entitic mass] 30.1 pg 27.0-32.0 [facility] Mean corpuscular hemoglobin concentration (MCHC) determinationOrdered By: Piedad Moreno on 02-28-2025 MCHC (RBC) [Mass/Vol] 34.4 g/dL 32-36 [facility] Mean platelet volume determi nationOrdered By: Piedad Moreno on 02-28-2025 Platelet mean volume (Bld) [Entitic vol] 11.2 fL 6.2-12.0 [facility] Monocyte percentageOrdered B y: Piedad Moreno on 02-28-2025 Monocytes/100 WBC (Bld) 5.0 % 0-10 [facility] Neutrophil percentageOrdered By: Piedad Moreno on 02-28-2025 Neutrophils/100 WBC (Bld) 68.6 % 47-70 [facility] Nucleated red blood cell per centageOrdered By: Piedad Moreno on 02-28-2025 Nucleated RBC/100 WBC (Bld) [Ratio] 0 % 0-5 [facility] OB Triage Progress Noteon OB Triage Progress Note Normal [facility] Platelet countOrdered By: Ajit Moreno on 02-28-2025 Platelets (Bld) [#/Vol] 176 10*3/uL 150-450 [facility] RBC Auto (Bld) [#/Vol]Ordere d By: Piedad Moreno on 02-28-2025 RBC (Bld) [#/Vol] 3.79 10*6/uL Low 4.2-5.4 [facility] Type AND Screenon 02-28-2025 ABO and Rh group Nom (Bld) Blood group A Rh(D) positive Normal [facility] Comment on above: Order Comment: PN Performed By: #### B TS ####[facility] [address] [facility], [address] White blood cell (WBC) count Ordered By: Piedad Moreno on 02-28-2025 WBC (Bld) [#/Vol] 8.0 10*3/uL 4.4-11.0 [facility] Laboratory - Chemistry and C hemistry - challengeOrdered By: Piedad Moreno on 02-27-2025 Glucose Ql (U) Negative [facility] Laboratory - UrinalysisOrder ed By: Piedad Moreno on 02-27-2025 Protein Ql (U) Negative [facility] No Panel InformationOrdered By: Piedad Moreno on 02-27-2025 Negative [facility] Sales Operations Specialist Office Visit Reporton 02-27-2025 Sales Operations Specialist Office Visit Report Normal [facility] Screening beta-hemolytic Str eptococcus cultureOrdered By: Piedad Moreno on 02-27-2025 Beta-hemolytic Streptococcus culture Group B Beta Streptococcus is not isolated. [facility] Sales Operations Specialist Office Visit Reporton 02-18-2025 Sales Operations Specialist Office Visit Report Normal [facility] Protein+Creatinine Ratio,Uri neon 02-18-2025 PROT:CRE RATIO 373 mg/g CRE High 0-200 [facility] Comment on above: Performed By: #### L 501.0900 ####[facility] [address] [place], [address] Protein (U) [Mass/Vol] 6.3 mg/dL Normal 0.0-12.0 [facility] Comment on above: Performed By: #### L 501.0900 ####[facility] [address] [place], [address] UR CREAT 16.80 mg/dL Low 28.00-217.00 [facility] Comment on above: Performed By: #### L 501.0900 ####[facility] [address] [place], [address] Random urine creatinine jazmine urement (mass/volume)Ordered By: Piedad Moreno on 02-18-2025 Creatinine Unsp time (U) [Mass/Vol] 16.80 mg/dL Low 28.00-217.00 [facility] Urine protein measurement (m ass/volume)Ordered By: Piedad Moreno on 02-18-2025 Protein (U) [Mass/Vol] 6.3 mg/dL 0.0-12.0 [facility] Urine protein/creatinine mas s ratioOrdered By: Piedad Moreno on 02-18-2025 Protein/Creatinine (U) [Mass ratio] 373 mg/g CRE High 0-200 [facility] Absolute lymphocyte countOrd ered By: uSyapa Godinez on 02-14-2025 Lymphocytes Auto (Unsp spec) [#/Vol] 1.66 10*3/uL 0.83-4.51 [facility] Absolute neutrophil countOrd ered By: Suyapa Godinez on 02-14-2025 Neutrophils (Bld) [#/Vol] 6.6 10*3/uL 2.0-7.7 [facility] Anion gap in Serum or Plasma Ordered By: Suyapa Godinez on 02-14-2025 Anion gap [Moles/Vol] 14 mmol/L 5-15 [facility] Automated blood erythrocyte countOrdered By: Suyapa Godinez on 02-14-2025 RBC (Bld) [#/Vol] 3.81 10*6/uL Low 4.2-5.4 [facility] Comment on above: Performed By: #### L 100.0100 ####[facility] [address] [place], [place], [address] Automated blood hematocrit ( percentage)Ordered By: Suyapa Godinez on 02-14-2025 Hematocrit (Bld) [Volume fraction] 33.1 % Low 37-47 [facility] Comment on above: Performed By: #### L 100.0100 ####[facility] [address] [place], [place], [id number] Automated lymphocyte count a s percentage of total leukocytesOrdered By: Suyapa Godinez on 02-14-2025 Lymphocytes/100 WBC Auto (Unsp spec) 18.0 % Low 19-41 [facility] BUN/creatinine ratioOrdered By: Suyapa Godinez on 02-14-2025 Urea nitrogen/Creatinine [Mass ratio] 11.3 mg/mg 10-20 [facility] Basophil percentageOrdered B y: Suyapa Godinez on 02-14-2025 Basophils/100 WBC (Bld) 0.4 % Normal 0-1 [facility] Comment on above: Performed By: #### L 100.0100 ####[facility] [address] [place], [place], [address] Bilirubin Test strip Ql (U)O rdered By: Suyapa Godinez on 02-14-2025 Bilirubin Ql (U) Negative Negative [facility] Bilirubin, totalOrdered By: Suyapa Godinez on 02-14-2025 Bilirubin [Mass/Vol] 0.17 mg/dL Normal 0.00-1.30 [facility] Comment on above: Performed By: #### L 500.4050 ####[facility] [address] [place], [place], [id number] CBC W/Diff, Automatedon 08-5 Absolute Lymph 1.66 X10 3/uL Normal 0.83-4.51 [facility] Comment on above: Performed By: #### L 100.0100 ####[facility] [address] [place], [address] Absolute Neut 6.6 X10 3/uL Normal 2.0-7.7 [facility] Comment on above: Performed By: #### L 100.0100 ####[facility] [address] [place], [address] IG% 0.500 Normal 0.0-0.9 [facility] Comment on above: Result Comment: IG% - Immature Granulocytes (promyelocytes, myelocytes andmetamyelocytes) > 1% indicates that a LEFT SHIFT is Present. Performed By: #### L 100.0100 ####[facility] [address] [place], [address] Lymphocytes/100 WBC (Bld) 18.0 % Low 19-41 [facility] Comment on above: Performed By: #### L 100.0100 ####[facility] [address] [place], [address] Nucleated RBC (Bld) [#/Vol] 0 10*3/uL Normal 0-5 [facility] Comment on above: Performed By: #### L 100.0100 ####[facility] [address] [place], [address] RDW SD 40.4 fl Normal 35.1-43.9 [facility] Comment on above: Performed By: #### L 100.0100 ####[facility] [address] [place], [address] Carbon dioxide, total [Moles /volume] in Central venous bloodOrdered By: Suyapa Godinez on 02-14-2025 CO2 [Moles/Vol] 18.1 mmol/L Low 21.0-32.0 [facility] Comment on above: Performed By: #### L 500.4050 ####[facility] [address] [place], [address] Chloride assayOrdered By: Candido Godinez on 02-14-2025 Chloride [Moles/Vol] 104 mmol/L Normal 98-108 [facility] Comment on above: Performed By: #### L 500.4050 ####[facility] [address] [place], [address] Comprehensive Metabolic Prof ilon 02-14-2025 ALK PHOS 64 U/L Normal 35-104 [facility] Comment on above: Performed By: #### L 500.4050 ####[facility] [address] [place], [address] BUN/CRE 11.3 RATIO Normal 10-20 [facility] Comment on above: Performed By: #### L 500.4050 ####[facility] [address] [place], [address] ECRCL 190.12 ml/min Normal 50-250 [facility] Comment on above: Performed By: #### L 500.4050 ####[facility] [address] [place], [address] GAP 14 Normal 5-15 [facility] Comment on above: Performed By: #### L 500.4050 ####[facility] [address] [place], [address] Potassium [Moles/Vol] 3.5 mmol/L Normal 3.3-5.1 [facility] Comment on above: Performed By: #### L 500.4050 ####[facility] [address] [place], [address] T PROT 6.2 g/dL Normal 5.9-8.4 [facility] Comment on above: Performed By: #### L 500.4050 ####[facility] [address] [place], [place], [address] Comprehensive Metabolic Prof ilOrdered By: Suyapa Godinez on 02-14-2025 AST [Catalytic activity/Vol] 13 U/L Normal <=31 [facility] Comment on above: Performed By: #### L 500.4050 ####[facility] [address] [place], [place], [address] Eosinophil percentageOrdered By: Suyapa Godinez on 02-14-2025 Eosinophils/100 WBC (Bld) 3.2 % Normal 0-5 [facility] Comment on above: Performed By: #### L 100.0100 ####[facility] [address] [place], [place], [address] Erythrocyte distribution wid th ratioOrdered By: Suyapa Godinez on 02-14-2025 Erythrocyte distribution width (RBC) [Ratio] 12.9 % Normal 11.6-14.6 [facility] Comment on above: Performed By: #### L 100.0100 ####[facility] [address] [place], [place], [address] Erythrocyte distribution wid th standard deviationOrdered By: Suyapa Godinez on 02-14-2025 Erythrocyte distribution width (RBC) [Ratio] 40.4 fl 35.1-43.9 [facility] Glomerular filtration rate ( GFR) estimation/1.73 sq m using serum, plasma, or whole bOrdered By: Suyapa Godinez on 02-14-2025 GFR/1.73 sq M.predicted among non-blacks MDRD (S/P/Bld) [Vol rate/Area] 128 mL/min/{1.73_m2} Normal >60 [facility] Comment on above: mL/min/1.73m2 CKD-EP I Creatinine Equation (2020) Result Comment: mL/m in/1.73m2 CKD-EPI Creatinine Equation (2020) Performed By: #### L 500.4050 ####[facility] [address] [place], [place], [id number] Hemoglobin measurementOrdere d By: Suyapa Godinez on 02-14-2025 Hemoglobin (Bld) [Mass/Vol] 11.3 g/dL Low 12.0-15.0 [facility] Comment on above: Performed By: #### L 100.0100 ####[facility] [address] [place], [address] Immature granulocytes/100 WB C Auto (Bld)Ordered By: Suyapa Godinez on 02-14-2025 Immature granulocytes/100 WBC (Bld) 0.500 % 0.0-0.9 [facility] Comment on above: IG% - Immature Granu locytes (promyelocytes, myelocytes and metamyelocytes) > 1% indicates that a LEFT SHIFT is Present. Ketones Test strip Ql (U)Ord ered By: Suyapa Godinez on 02-14-2025 Ketones Ql (U) Negative Negative [facility] Lipase measurementOrdered By : Suyapa Godinez on 02-14-2025 Lipase [Catalytic activity/Vol] 23 U/L Normal 13-75 [facility] Comment on above: Please note:LIPASE r evised reference range effective 22. New Lipase methodology. Expected to produce lower values than the previous assay method. NEW Reference Range: 13 - 75 U/L Result Comment: Plea se note:LIPASE revised reference range effective 22.New Lipase methodology. Expected to produce lower valuesthan the previous assay method.NEW Reference Range: 13 - 75 U/L Performed By: #### L 501.2450 ####[facility] [address] [place], [address] MCV (mean corpuscular volume ) determinationOrdered By: Suyapa Godinez on 02-14-2025 MCV (RBC) [Entitic vol] 86.9 fL Normal 81-99 [facility] Comment on above: Performed By: #### L 100.0100 ####[facility] [address] [place], [address] Mean corpuscular hemoglobin (MCH) determinationOrdered By: Suyapa Godinez on 02-14-2025 MCH (RBC) [Entitic mass] 29.7 pg Normal 27.0-32.0 [facility] Comment on above: Performed By: #### L 100.0100 ####[facility] [address] [place], [address] Mean corpuscular hemoglobin concentration (MCHC) determinationOrdered By: Suyapa Godinez on 02-14-2025 MCHC (RBC) [Mass/Vol] 34.1 g/dL Normal 32-36 [facility] Comment on above: Performed By: #### L 100.0100 ####[facility] [address] [place], [address] Mean platelet volume determi nationOrdered By: Suyapa Godinez on 02-14-2025 Platelet mean volume (Bld) [Entitic vol] 11.0 fL Normal 6.2-12.0 [facility] Comment on above: Performed By: #### L 100.0100 ####[facility] [address] [place], [address] Microscopic analysis of urin e for red blood cells (RBC)Ordered By: Suyapa Godinez on 02-14-2025 Microscopic analysis of urine for red blood cells (RBC) 0 SEEN /hpf 0-5 [facility] Monocyte percentageOrdered B y: Suyapa Godinez on 02-14-2025 Monocytes/100 WBC (Bld) 5.9 % Normal 0-10 [facility] Comment on above: Performed By: #### L 100.0100 ####[facility] [address] [place], [address] Mucus LM Ql (Urine sed)Order ed By: Suyapa Godinez on 02-14-2025 Mucus Ql (Urine sed) 0 SEEN /hpf [facility] Neutrophil percentageOrdered By: Suyapa Godinez on 02-14-2025 Neutrophils/100 WBC (Bld) 72.0 % High 47-70 [facility] Comment on above: Performed By: #### L 100.0100 ####[facility] [address] [place], [address] Nitrite Test strip Ql (U)Ord ered By: Suyapa Godinez on 02-14-2025 Nitrite Ql (U) Negative Negative [facility] No Panel InformationOrdered By: Suyapa Godinez on 02-14-2025 13 U/L <32 [facility] Nucleated red blood cell per centageOrdered By: Suyapa Godinez on 02-14-2025 Nucleated RBC/100 WBC (Bld) [Ratio] 0 % 0-5 [facility] OB Biophysical Prof W/O NSTo n 02-14-2025 OB Biophysical Prof W/O NST Normal [facility] OB Triage Progress Noteon OB Triage Progress Note Normal [facility] Platelet countOrdered By: Candido Godinez on 02-14-2025 Platelets (Bld) [#/Vol] 192 10*3/uL Normal 150-450 [facility] Comment on above: Performed By: #### L 100.0100 ####[facility] [address] [place], [address] Potassium measurement (mass/ volume)Ordered By: Suyapa Godinez on 02-14-2025 Potassium (Unsp spec) [Mass/Vol] 3.5 mmol/L 3.3-5.1 [facility] Protein Test strip Ql (U)Ord ered By: Suyapa Godinez on 02-14-2025 Protein Ql (U) Negative Negative [facility] Protein+Creatinine Ratio,Uri neon 02-14-2025 PROT:CRE RATIO 498 mg/g CRE High 0-200 [facility] Comment on above: Performed By: #### L 501.0900 ####[facility] [address] [place], [address] Protein (U) [Mass/Vol] 9.1 mg/dL Normal 0.0-12.0 [facility] Comment on above: Performed By: #### L 501.0900 ####[facility] [address] [place], [address] UR CREAT 18.30 mg/dL Low 28.00-217.00 [facility] Comment on above: Performed By: #### L 501.0900 ####[facility] [address] [place], [address] Random urine creatinine jazmine urement (mass/volume)Ordered By: Suyapa Godinez on 02-14-2025 Creatinine Unsp time (U) [Mass/Vol] 18.30 mg/dL Low 28.00-217.00 [facility] Serum creatinine measurement (mass/volume)Ordered By: Suyapa Godinez on 02-14-2025 Creatinine [Mass/Vol] 0.45 mg/dL Low 0.70-1.20 [facility] Comment on above: Performed By: #### L 500.4050 ####[facility] [address] [place], [address] Serum globulin measurementOr dered By: Suyapa Godinez on 02-14-2025 Globulin (S) [Mass/Vol] 2.6 g/dL Normal 2.2-4.2 [facility] Comment on above: Performed By: #### L 500.4050 ####[facility] [address] [place], [address] Serum glucose measurement (m ass/volume)Ordered By: Suyapa Godinez on 02-14-2025 Glucose [Mass/Vol] 89 mg/dL Normal 70-99 [facility] Comment on above: Performed By: #### L 500.4050 ####[facility] [address] [place], [address] Serum or plasma alanine isabel otransferase (ALT) measurementOrdered By: Suyapa Godinez on 02-14-2025 ALT [Catalytic activity/Vol] 7 U/L Normal <=34 [facility] Comment on above: Performed By: #### L 500.4050 ####[facility] [address] [place], [address] Serum or plasma albumin jazmine urement (mass/volume)Ordered By: Suyapa Godinez on 02-14-2025 Albumin [Mass/Vol] 3.6 g/dL Normal 3.5-5.0 [facility] Comment on above: Performed By: #### L 500.4050 ####[facility] [address] [place], [address] Serum or plasma albumin/glob ulin mass ratioOrdered By: Suyapa Godinez on 02-14-2025 Albumin/Globulin [Mass ratio] 1.4 {ratio} Normal 0.9-2.4 [facility] Comment on above: Performed By: #### L 500.4050 ####[facility] [address] [place], [address] Serum or plasma alkaline molly sphatase measurementOrdered By: Suyapa Godinez on 02-14-2025 ALP [Catalytic activity/Vol] 64 U/L 35-104 [facility] Serum or plasma calcium jazmine urement (mass/volume)Ordered By: Suyapa Godinez on 02-14-2025 Calcium [Mass/Vol] 9.1 mg/dL Normal 7.6-11.0 [facility] Comment on above: Performed By: #### L 500.4050 ####[facility] [address] [place], [address] Serum or plasma urea nitroge n measurement (mass/volume)Ordered By: Suyapa Godinez on 02-14-2025 Urea nitrogen [Mass/Vol] 5 mg/dL Normal 4-19 [facility] Comment on above: Performed By: #### L 500.4050 ####[facility] [address] [place], [address] Sodium levelOrdered By: Alena Godinez on 02-14-2025 Sodium [Moles/Vol] 136 mmol/L Normal 133-145 [facility] Comment on above: Performed By: #### L 500.4050 ####[facility] [address] [place], [address] Squamous epithelial cells de tection in urine sediment by light microscopyOrdered By: Suyapa Godinez on 02-14-2025 Epithelial cells.squamous LM Ql (Urine sed) 0-5 SEEN /hpf 5-10 [facility] Total proteinOrdered By: William Godinez on 02-14-2025 Protein [Mass/Vol] 6.2 g/dL 5.9-8.4 [facility] Urinalysis, Completeon 02-14 BACTERIA 2+ /hpf Normal None Seen [facility] Comment on above: Order Comment: CLEAN CATCH Performed By: #### L 400.0001 ####[facility] [address] [place], [address] EPI,SQUAMOUS 0-5 SEEN Normal 5-10 [facility] Comment on above: Order Comment: CLEAN CATCH Performed By: #### L 400.0001 ####[facility] [address] [place], [address] WBC 0-5 SEEN Normal 0-5 [facility] Comment on above: Order Comment: CLEAN CATCH Performed By: #### L 400.0001 ####[facility] [address] [place], [address] Mucus Ql (Urine sed) 0 SEEN Normal [facility] Comment on above: Order Comment: CLEAN CATCH Performed By: #### L 400.0001 ####[facility] [address] [place], [address] RBC 0 SEEN Normal 0-5 [facility] Comment on above: Order Comment: CLEAN CATCH Performed By: #### L 400.0001 ####[facility] [address] [place], [address] Urine clarityOrdered By: William Godinez on 02-14-2025 Clarity (U) Clear Clear [facility] Urine color determinationOrd ered By: Suyapa Godinez on 02-14-2025 Color (U) Yellow Yellow [facility] Urine glucose detectionOrder ed By: Suyapa Godinez on 02-14-2025 Glucose Ql (U) Normal mg/dl Normal [facility] Urine leukocyte esterase det ection by dipstickOrdered By: Suyapa Godinez on 02-14-2025 Leukocyte esterase Test strip Ql (U) Negative Negative [facility] Urine pHOrdered By: Suyapa leach on 02-14-2025 pH (U) 6.5 [pH] 5.0 - 8.0 [facility] Urine protein measurement (m ass/volume)Ordered By: Suyapa Godinez on 02-14-2025 Protein (U) [Mass/Vol] 9.1 mg/dL 0.0-12.0 [facility] Urine protein/creatinine mas s ratioOrdered By: Suyapa Godinez on 02-14-2025 Protein/Creatinine (U) [Mass ratio] 498 mg/g CRE High 0-200 [facility] Urine sediment bacteria coun t by microscopy (number/high power field)Ordered By: Suyapa Godinez on 02-14-2025 Bacteria LM.HPF (Urine sed) [#/Area] 2 /[HPF] None Seen [facility] Urine specific gravity measu rementOrdered By: Suyapa Godinez on 02-14-2025 Specific gravity (U) [Rel density] 1.010 1.002-1.030 [facility] Urine urobilinogen measureme ntOrdered By: Suyapa Godinez on 02-14-2025 Urobilinogen Ql (U) Normal mg/dl Normal [facility] White blood cell (WBC) count Ordered By: Suyapa Godinez on 02-14-2025 WBC (Bld) [#/Vol] 9.2 10*3/uL Normal 4.4-11.0 [facility] Comment on above: Performed By: #### L 100.0100 ####[facility] [address] [place], [address] White blood cell countOrdere d By: Suyapa Godinez on 02-14-2025 White blood cell count 0-5 SEEN /hpf 0-5 [facility] - Chemistry and C hemistry - challengeOrdered By: Reina Romero on 02-13-2025 Glucose Ql (U) Negative [facility] - UrinalysisOrder ed By: Reina Romero on 02-13-2025 Protein Ql (U) Negative [facility] No Panel InformationOrdered By: Reina Romero on 02-13-2025 Negative [facility] Sales Operations Specialist Office Visit Reporton 02-13-2025 Sales Operations Specialist Office Visit Report Normal [facility] Urine Cultureon 02-08-2025 URC Culture exhibits no growth. Normal [facility] Comment on above: Performed By: #### M 100.2200 ####[facility] [address] [place], [address] AST(SGOT)on 02-07-2025 AST [Catalytic activity/Vol] 13 U/L Normal <=31 [facility] Comment on above: Performed By: #### L 501.0900, L501.1400, L501.1105, L100.0500, L501.4100, L400.2010, L501.4405 ####[facility] [address] [place], [address] Alanine Aminotransferas (SGP T)on 02-07-2025 ALT [Catalytic activity/Vol] 8 U/L Normal <=34 [facility] Comment on above: Performed By: #### L 501.0900, L501.1400, L501.1105, L100.0500, L501.4100, L400.2010, L501.4405 ####[facility] [address] [place], [address] Bilirubin Test strip Ql (U)O rdered By: Linda Hammond on 02-07-2025 Bilirubin Ql (U) Negative Negative [facility] CBC-Complete Blood Cnt No Di ffon 02-07-2025 Erythrocyte distribution width (RBC) [Ratio] 12.6 % Normal 11.6-14.6 [facility] Comment on above: Performed By: #### L 501.0900, L501.1400, L501.1105, L100.0500, L501.4100, L400.2010, L501.4405 ####[facility] [address] [place], [address] Hematocrit (Bld) [Volume fraction] 33.6 % Low 37-47 [facility] Comment on above: Performed By: #### L 501.0900, L501.1400, L501.1105, L100.0500, L501.4100, L400.2010, L501.4405 ####[facility] [address] [place], [address] Hemoglobin (Bld) [Mass/Vol] 11.7 g/dL Low 12.0-15.0 [facility] Comment on above: Performed By: #### L 501.0900, L501.1400, L501.1105, L100.0500, L501.4100, L400.2010, L501.4405 ####[facility] [address] [place], [address] MCH (RBC) [Entitic mass] 29.8 pg Normal 27.0-32.0 [facility] Comment on above: Performed By: #### L 501.0900, L501.1400, L501.1105, L100.0500, L501.4100, L400.2010, L501.4405 ####[facility] [address] [place], [address] MCHC (RBC) [Mass/Vol] 34.8 g/dL Normal 32-36 [facility] Comment on above: Performed By: #### L 501.0900, L501.1400, L501.1105, L100.0500, L501.4100, L400.2010, L501.4405 ####[facility] [address] [place], [address] MCV (RBC) [Entitic vol] 85.7 fL Normal 81-99 [facility] Comment on above: Performed By: #### L 501.0900, L501.1400, L501.1105, L100.0500, L501.4100, L400.2010, L501.4405 ####[facility] [address] [place], [address] Platelet mean volume (Bld) [Entitic vol] 10.6 fL Normal 6.2-12.0 [facility] Comment on above: Performed By: #### L 501.0900, L501.1400, L501.1105, L100.0500, L501.4100, L400.2010, L501.4405 ####[facility] [address] [place], [address] Platelets (Bld) [#/Vol] 186 10*3/uL Normal 150-450 [facility] Comment on above: Performed By: #### L 501.0900, L501.1400, L501.1105, L100.0500, L501.4100, L400.2010, L501.4405 ####[facility] [address] [place], [address] RBC (Bld) [#/Vol] 3.92 10*6/uL Low 4.2-5.4 [facility] Comment on above: Performed By: #### L 501.0900, L501.1400, L501.1105, L100.0500, L501.4100, L400.2010, L501.4405 ####[facility] [address] [place], [address] RDW SD 38.9 fl Normal 35.1-43.9 [facility] Comment on above: Performed By: #### L 501.0900, L501.1400, L501.1105, L100.0500, L501.4100, L400.2010, L501.4405 ####[facility] [address] [place], [address] WBC (Bld) [#/Vol] 8.7 10*3/uL Normal 4.4-11.0 [facility] Comment on above: Performed By: #### L 501.0900, L501.1400, L501.1105, L100.0500, L501.4100, L400.2010, L501.4405 ####[facility] [address] [place], [address] Erythrocyte distribution wid th ratioOrdered By: Linda Hammond on 02-07-2025 Erythrocyte distribution width (RBC) [Ratio] 12.6 % 11.6-14.6 [facility] Erythrocyte distribution wid th standard deviationOrdered By: Linda Hammond on 02-07-2025 Erythrocyte distribution width (RBC) [Ratio] 38.9 fl 35.1-43.9 [facility] Glomerular filtration rate ( GFR) estimation/1.73 sq m using serum, plasma, or whole bOrdered By: Linda Hammond on 02-07-2025 GFR/1.73 sq M.predicted among non-blacks MDRD (S/P/Bld) [Vol rate/Area] 126 mL/min/{1.73_m2} >60 [facility] Comment on above: mL/min/1.73m2 CKD-EP I Creatinine Equation (2020) Hematocrit Auto (Bld) [Volum e fraction]Ordered By: Linda Hammond on 02-07-2025 Hematocrit (Bld) [Volume fraction] 33.6 % Low 37-47 [facility] Hemoglobin measurementOrdere d By: Linda Hammond on 02-07-2025 Hemoglobin (Bld) [Mass/Vol] 11.7 g/dL Low 12.0-15.0 [facility] Ketones Test strip Ql (U)Ord ered By: Linda Hammond on 02-07-2025 Ketones Ql (U) 5 mg/dl High Negative [facility] Laboratory - Chemistry and C hemistry - challengeOrdered By: Linda Hammond on 02-07-2025 AST [Catalytic activity/Vol] 13 U/L <32 [facility] MCV (mean corpuscular volume ) determinationOrdered By: Linda Hammond on 02-07-2025 MCV (RBC) [Entitic vol] 85.7 fL 81-99 [facility] Mean corpuscular hemoglobin (MCH) determinationOrdered By: Linda Hammond on 02-07-2025 MCH (RBC) [Entitic mass] 29.8 pg 27.0-32.0 [facility] Mean corpuscular hemoglobin concentration (MCHC) determinationOrdered By: Linda Hammond on 08-01-2025 MCHC (RBC) [Mass/Vol] 34.8 g/dL 32-36 [facility] Mean platelet volume determi nationOrdered By: Linda Hammond on 02-07-2025 Platelet mean volume (Bld) [Entitic vol] 10.6 fL 6.2-12.0 [facility] Nitrite Test strip Ql (U)Ord ered By: Linda Hammond on 02-07-2025 Nitrite Ql (U) Negative Negative [facility] No Panel InformationOrdered By: Linda Hammond on 02-07-2025 13 U/L <32 [facility] OB Triage Physician Noteon 0 02-07-2025 OB Triage Physician Note Normal [facility] Platelet countOrdered By: Fallon Hammond on 02-07-2025 Platelets (Bld) [#/Vol] 186 10*3/uL 150-450 [facility] Protein Test strip Ql (U)Ord ered By: Linda Hammond on 02-07-2025 Protein Ql (U) 15 mg/dl High Negative [facility] Protein+Creatinine Ratio,Uri neon 02-07-2025 PROT:CRE RATIO 174 mg/g CRE Normal 0-200 [facility] Comment on above: Performed By: #### L 501.0900, L501.1400, L501.1105, L100.0500, L501.4100, L400.2010, L501.4405 ####[facility] [address] [place], [address] Protein (U) [Mass/Vol] 8.7 mg/dL Normal 0.0-12.0 [facility] Comment on above: Performed By: #### L 501.0900, L501.1400, L501.1105, L100.0500, L501.4100, L400.2010, L501.4405 ####[facility] [address] [place], [address] UR CREAT 50.20 mg/dL Normal 28.00-217.00 [facility] Comment on above: Performed By: #### L 501.0900, L501.1400, L501.1105, L100.0500, L501.4100, L400.2010, L501.4405 ####[facility] [address] [place], [address] RBC Auto (Bld) [#/Vol]Ordere d By: Linda Hammond on 02-07-2025 RBC (Bld) [#/Vol] 3.92 10*6/uL Low 4.2-5.4 [facility] Random urine creatinine jazmine urement (mass/volume)Ordered By: Linda Hammond on 02-07-2025 Creatinine Unsp time (U) [Mass/Vol] 50.20 mg/dL 28.00-217.00 [facility] Serum Creatinine AND GFRon 0 02-07-2025 Creatinine [Mass/Vol] 0.48 mg/dL Low 0.70-1.20 [facility] Comment on above: Performed By: #### L 501.0900, L501.1400, L501.1105, L100.0500, L501.4100, L400.2010, L501.4405 ####[facility] [address] [place], [address] ECRCL 177.60 ml/min Normal 50-250 [facility] Comment on above: Performed By: #### L 501.0900, L501.1400, L501.1105, L100.0500, L501.4100, L400.2010, L501.4405 ####[facility] [address] [place], [address] GFR/1.73 sq M.predicted among non-blacks MDRD (S/P/Bld) [Vol rate/Area] 126 mL/min/{1.73_m2} Normal >60 [facility] Comment on above: Result Comment: mL/m in/1.73m2 CKD-EPI Creatinine Equation (2020) Performed By: #### L 501.0900, L501.1400, L501.1105, L100.0500, L501.4100, L400.2010, L501.4405 ####[facility] [address] [place], [place], [id number] Serum creatinine measurement (mass/volume)Ordered By: Linda Hammond on 02-07-2025 Creatinine [Mass/Vol] 0.48 mg/dL Low 0.70-1.20 [facility] Serum or plasma alanine isabel otransferase (ALT) measurementOrdered By: Linda Hammond on 02-07-2025 ALT [Catalytic activity/Vol] 8 U/L <35 [facility] Serum or plasma uric acid me asurement (mass/volume)Ordered By: Linda Hammond on 02-07-2025 Urate [Mass/Vol] 4.4 mg/dL 2.6-6.0 [facility] Comment on above: The drugs N-Acetylcy steine and Metamizole may falsely depress this assay. Uric Acidon 02-07-2025 URIC 4.4 mg/dL Normal 2.6-6.0 [facility] Comment on above: Result Comment: The drugs N-Acetylcysteine and Metamizole may falselydepress this assay. Performed By: #### L 501.0900, L501.1400, L501.1105, L100.0500, L501.4100, L400.2010, L501.4405 ####[facility] [address] [place], [place], [id number] Urinalysis, Routine (Dipstic k)on 02-07-2025 BILIRUBIN URINE Negative Normal Negative [facility] Comment on above: Order Comment: COLLE CTOR TO SPECIFY Performed By: #### L 501.0900, L501.1400, L501.1105, L100.0500, L501.4100, L400.2010, L501.4405 ####[facility] [address] [place], [place], [id number] Clarity (U) Clear Normal Clear [facility] Comment on above: Order Comment: LUCRECIA CTOR TO SPECIFY Performed By: #### L 501.0900, L501.1400, L501.1105, L100.0500, L501.4100, L400.2010, L501.4405 ####[facility] [address] [place], [address] Color (U) Yellow Normal Yellow [facility] Comment on above: Order Comment: COLLE CTOR TO SPECIFY Performed By: #### L 501.0900, L501.1400, L501.1105, L100.0500, L501.4100, L400.2010, L501.4405 ####[facility] [address] [place], [address] GLUCOSE, UR Normal Normal Normal [facility] Comment on above: Order Comment: COLLE CTOR TO SPECIFY Performed By: #### L 501.0900, L501.1400, L501.1105, L100.0500, L501.4100, L400.2010, L501.4405 ####[facility] [address] [place], [address] KETONE UR 5 mg/dl Abnormal Negative [facility] Comment on above: Order Comment: COLLE CTOR TO SPECIFY Performed By: #### L 501.0900, L501.1400, L501.1105, L100.0500, L501.4100, L400.2010, L501.4405 ####[facility] [address] [place], [address] LEUK ESTERASE Negative Normal Negative [facility] Comment on above: Order Comment: COLLE CTOR TO SPECIFY Performed By: #### L 501.0900, L501.1400, L501.1105, L100.0500, L501.4100, L400.2010, L501.4405 ####[facility] [address] [place], [address] Nitrite Ql (U) Negative Normal Negative [facility] Comment on above: Order Comment: COLLE CTOR TO SPECIFY Performed By: #### L 501.0900, L501.1400, L501.1105, L100.0500, L501.4100, L400.2010, L501.4405 ####[facility] [address] [place], [address] OCCULT BLOOD-UR Negative Normal Negative [facility] Comment on above: Order Comment: COLLE CTOR TO SPECIFY Performed By: #### L 501.0900, L501.1400, L501.1105, L100.0500, L501.4100, L400.2010, L501.4405 ####[facility] [address] [place], [address] pH UR 7.0 Normal 5.0 - 8.0 [facility] Comment on above: Order Comment: LUCRECIA CTOR TO SPECIFY Performed By: #### L 501.0900, L501.1400, L501.1105, L100.0500, L501.4100, L400.2010, L501.4405 ####[facility] [address] [place], [address] PROT DIPSTX 15 mg/dl Abnormal Negative [facility] Comment on above: Order Comment: LUCRECIA CTOR TO SPECIFY Performed By: #### L 501.0900, L501.1400, L501.1105, L100.0500, L501.4100, L400.2010, L501.4405 ####[facility] [address] [place], [address] SP.GR. DIPSTX 1.010 Normal 1.002-1.030 [facility] Comment on above: Order Comment: LUCRECIA CTOR TO SPECIFY Performed By: #### L 501.0900, L501.1400, L501.1105, L100.0500, L501.4100, L400.2010, L501.4405 ####[facility] [address] [place], [address] UROBILI Normal Normal Normal [facility] Comment on above: Order Comment: COLLE CTOR TO SPECIFY Performed By: #### L 501.0900, L501.1400, L501.1105, L100.0500, L501.4100, L400.2011, L501.4405 ####[facility] [address] [place], [address] Urine clarityOrdered By: Tania Hammond on 02-07-2025 Clarity (U) Clear Clear [facility] Urine color determinationOrd ered By: Linda Hammond on 02-07-2025 Color (U) Yellow Yellow [facility] Urine cultureOrdered By: Tania Hammond on 02-07-2025 Bacteria identified Cx Nom (U) Culture exhibits no growth. [facility] Urine glucose detectionOrder ed By: Linda Hammond on 02-07-2025 Glucose Ql (U) Normal mg/dl Normal [facility] Urine leukocyte esterase det ection by dipstickOrdered By: Linda Hammond on 02-07-2025 Leukocyte esterase Test strip Ql (U) Negative Negative [facility] Urine pHOrdered By: Linda Hammond on 02-07-2025 pH (U) 7.0 [pH] 5.0 - 8.0 [facility] Urine protein measurement (m ass/volume)Ordered By: Linda Hammond on 02-07-2025 Protein (U) [Mass/Vol] 8.7 mg/dL 0.0-12.0 [facility] Urine protein/creatinine mas s ratioOrdered By: Linda Hammond on 02-07-2025 Protein/Creatinine (U) [Mass ratio] 174 mg/g CRE 0-200 [facility] Urine specific gravity measu rementOrdered By: Linda Hammond on 02-07-2025 Specific gravity (U) [Rel density] 1.010 1.002-1.030 [facility] Urine urobilinogen measureme ntOrdered By: Linda Hammond on 02-07-2025 Urobilinogen Ql (U) Normal mg/dl Normal [facility] White blood cell (WBC) count Ordered By: Linda Hammond on 02-07-2025 WBC (Bld) [#/Vol] 8.7 10*3/uL 4.4-11.0 [facility] Glucose Challenge Gest 1H 50 katharine 02-05-2025 GLU GEST 50g 1H 111 mg/dL Normal 70-140 [facility] Comment on above: Performed By: #### L 501.0250 ####[facility] [address] [place], [place], [id number] Glucose measurement at 2 fahad rs post-dose gestational glucose tolerance testOrdered By: Danya Simpson on 02-05-2025 Glucose [Mass/Vol] 111 mg/dL 70-140 [facility] Laboratory - Chemistry and C hemistry - challengeOrdered By: Reina Romero on 01-29-2025 Glucose Ql (U) Negative [facility] Laboratory - UrinalysisOrder ed By: Reina Romero on 01-29-2025 Protein Ql (U) Negative [facility] No Panel InformationOrdered By: Reina Romero on 01-29-2025 Negative [facility] Sales Operations Specialist Office Visit Reporton 01-29-2025 Sales Operations Specialist Office Visit Report Normal [facility] Gestational GTT 3HR 100gon 0 01-14-2025 GEST GTT 100gm Normal [facility] Comment on above: Order Comment: Y Result Comment: FAST ING 88 Col: 01/14/25 0657GLUCOSE TOLERANCE TEST FOR Reference Interval GESTATIONAL DIABETES Fasting <105 mg/dL 1 hour <190 mg/dl 2 hour <165 mg/dl 3 hour <145 mg/dl 1 HR GLU 143 Col: 01/14/25 0911 2 HR GLU 126 Col: 01/14/25 1015 3 HR GLU 89 Col: 01/14/25 1115 Performed By: #### L 500.4710 ####[facility] [address] [place], [place], [address] Quantitative serum or plasma 3 hour gestational glucose tolerance panelOrdered By: Suyapa Godinez on 01-14-2025 Glucose tolerance 3 hours gestational panel See comment [facility] Comment on above: FASTING 88 Col: [...] Godinez on 01-13-2025 Glucose Ql (U) Negative [facility] Laboratory - UrinalysisOrder ed By: Suyapa Godinez on 01-13-2025 Protein Ql (U) Negative [facility] No Panel InformationOrdered By: Suyapa Godinez on 01-13-2025 Negative [facility] Sales Operations Specialist Office Visit Reporton 01-13-2025 Sales Operations Specialist Office Visit Report Normal [facility] Sales Operations Specialist Office Visit Reporton 01-03-2025 Sales Operations Specialist Office Visit Report Normal [facility] Absolute lymphocyte countOrd ered By: Reina Romero on 12-26-2024 Lymphocytes Auto (Unsp spec) [#/Vol] 1.32 10*3/uL 0.83-4.51 [facility] Absolute neutrophil countOrd ered By: Renia Romero on 12-26-2024 Neutrophils (Bld) [#/Vol] 5.7 10*3/uL 2.0-7.7 [facility] Automated lymphocyte count a s percentage of total leukocytesOrdered By: Reina Romero on 12-26-2024 Lymphocytes/100 WBC Auto (Unsp spec) 17.4 % Low 19-41 [facility] Basophil percentageOrdered B y: Reina Romero on 12-26-2024 Basophils/100 WBC (Bld) 0.4 % 0-1 [facility] CBC W/Diff, Automatedon 12-08 Absolute Lymph 1.32 X10 3/uL Normal 0.83-4.51 [facility] Comment on above: Performed By: #### L 501.0250, L100.0100, L3890.6006, L509.8002 ####[facility] [address] [place], [address] Absolute Neut 5.7 X10 3/uL Normal 2.0-7.7 [facility] Comment on above: Performed By: #### L 501.0250, L100.0100, L3890.6006, L509.8002 ####[facility] [address] [place], [address] Basophils/100 WBC (Bld) 0.4 % Normal 0-1 [facility] Comment on above: Performed By: #### L 501.0250, L100.0100, L3890.6006, L509.8002 ####[facility] [address] [place], [address] Eosinophils/100 WBC (Bld) 2.9 % Normal 0-5 [facility] Comment on above: Performed By: #### L 501.0250, L100.0100, L3890.6006, L509.8002 ####[facility] [address] [place], [address] Erythrocyte distribution width (RBC) [Ratio] 12.7 % Normal 11.6-14.6 [facility] Comment on above: Performed By: #### L 501.0250, L100.0100, L3890.6006, L509.8002 ####[facility] [address] [place], [address] Hematocrit (Bld) [Volume fraction] 33.8 % Low 37-47 [facility] Comment on above: Performed By: #### L 501.0250, L100.0100, L3890.6006, L509.8002 ####[facility] [address] [place], [address] Hemoglobin (Bld) [Mass/Vol] 11.8 g/dL Low 12.0-15.0 [facility] Comment on above: Performed By: #### L 501.0250, L100.0100, L3890.6006, L509.8002 ####[facility] [address] [place], [address] IG% 0.400 Normal 0.0-0.9 [facility] Comment on above: Result Comment: IG% - Immature Granulocytes (promyelocytes, myelocytes andmetamyelocytes) > 1% indicates that a LEFT SHIFT is Present. Performed By: #### L 501.0250, L100.0100, L3890.6006, L509.8002 ####[facility] [address] [place], [address] Lymphocytes/100 WBC (Bld) 17.4 % Low 19-41 [facility] Comment on above: Performed By: #### L 501.0250, L100.0100, L3890.6006, L509.8002 ####[facility] [address] [place], [address] MCH (RBC) [Entitic mass] 30.6 pg Normal 27.0-32.0 [facility] Comment on above: Performed By: #### L 501.0250, L100.0100, L3890.6006, L509.8002 ####[facility] [address] [place], [address] MCHC (RBC) [Mass/Vol] 34.9 g/dL Normal 32-36 [facility] Comment on above: Performed By: #### L 501.0250, L100.0100, L3890.6006, L509.8002 ####[facility] [address] [place], [address] MCV (RBC) [Entitic vol] 87.8 fL Normal 81-99 [facility] Comment on above: Performed By: #### L 501.0250, L100.0100, L3890.6006, L509.8002 ####[facility] [address] [place], [address] Monocytes/100 WBC (Bld) 3.8 % Normal 0-10 [facility] Comment on above: Performed By: #### L 501.0250, L100.0100, L3890.6006, L509.8002 ####[facility] [address] [place], [address] Neutrophils/100 WBC (Bld) 75.1 % High 47-70 [facility] Comment on above: Performed By: #### L 501.0250, L100.0100, L3890.6006, L509.8002 ####[facility] [address] [place], [address] Nucleated RBC (Bld) [#/Vol] 0 10*3/uL Normal 0-5 [facility] Comment on above: Performed By: #### L 501.0250, L100.0100, L3890.6006, L509.8002 ####[facility] [address] [place], [address] Platelet mean volume (Bld) [Entitic vol] 9.9 fL Normal 6.2-12.0 [facility] Comment on above: Performed By: #### L 501.0250, L100.0100, L3890.6006, L509.8002 ####[facility] [address] [place], [address] Platelets (Bld) [#/Vol] 196 10*3/uL Normal 150-450 [facility] Comment on above: Performed By: #### L 501.0250, L100.0100, L3890.6006, L509.8002 ####[facility] [address] [place], [address] RBC (Bld) [#/Vol] 3.85 10*6/uL Low 4.2-5.4 [facility] Comment on above: Performed By: #### L 501.0250, L100.0100, L3890.6006, L509.8002 ####[facility] [address] [place], [address] RDW SD 40.8 fl Normal 35.1-43.9 [facility] Comment on above: Performed By: #### L 501.0250, L100.0100, L3890.6006, L509.8002 ####[facility] [address] [place], [place], [id number] WBC (Bld) [#/Vol] 7.6 10*3/uL Normal 4.4-11.0 [facility] Comment on above: Performed By: #### L 501.0250, L100.0100, L3890.6006, L509.8002 ####[facility] [address] [place], [place], [address] Eosinophil percentageOrdered By: Reina Romero on 12-26-2024 Eosinophils/100 WBC (Bld) 2.9 % 0-5 [facility] Erythrocyte distribution wid th ratioOrdered By: Reina Romero on 12-26-2024 Erythrocyte distribution width (RBC) [Ratio] 12.7 % 11.6-14.6 [facility] Erythrocyte distribution wid th standard deviationOrdered By: Reina Romero on 12-26-2024 Erythrocyte distribution width (RBC) [Ratio] 40.8 fl 35.1-43.9 [facility] Glucose Challenge Gest 1H 50 katharine 12-26-2024 GLU GEST 50g 1H 138 mg/dL Normal 70-140 [facility] Comment on above: Performed By: #### L 501.0250, L100.0100, L3890.6006, L509.8002 ####[facility] [address] [place], [place], [address] Glucose measurement at 2 fahad rs post-dose gestational glucose tolerance testOrdered By: Reina Romero on 12-26-2024 Glucose [Mass/Vol] 138 mg/dL 70-140 [facility] HIVon 12-26-2024 HIV Non-Reactive Normal Nonreactive [facility] Comment on above: Result Comment: Non- ReactiveReactiveRepeatedly reactive samples must be confirmed according toCDC recommended confirmatory algorithms. The subresults foreither HIVAG or AHIV can be used as an aid in the selectionof the confirmation algorithm for reactive samples.Send out specimens with Reactive results to [facility] forconfirmation.Order the HIV antibody detection and differentiation:lc#[id number] Performed By: #### L 501.0250, L100.0100, L3890.6006, L509.8002 ####[facility] [address] [place], [place], [id number] Hematocrit Auto (Bld) [Volum e fraction]Ordered By: Reina Romero on 12-26-2024 Hematocrit (Bld) [Volume fraction] 33.8 % Low 37-47 [facility] Hemoglobin measurementOrdere d By: Reina Romero on 12-26-2024 Hemoglobin (Bld) [Mass/Vol] 11.8 g/dL Low 12.0-15.0 [facility] Immature granulocytes/100 WB C Auto (Bld)Ordered By: Reina Romero on 12-26-2024 Immature granulocytes/100 WBC (Bld) 0.400 % 0.0-0.9 [facility] Comment on above: IG% - Immature Granu locytes (promyelocytes, myelocytes and metamyelocytes) > 1% indicates that a LEFT SHIFT is Present. MCV (mean corpuscular volume ) determinationOrdered By: Reina Romero on 12-26-2024 MCV (RBC) [Entitic vol] 87.8 fL 81-99 [facility] Mean corpuscular hemoglobin (MCH) determinationOrdered By: Reina Romero on 12-26-2024 MCH (RBC) [Entitic mass] 30.6 pg 27.0-32.0 [facility] Mean corpuscular hemoglobin concentration (MCHC) determinationOrdered By: Reina Romero on 12-26-2024 MCHC (RBC) [Mass/Vol] 34.9 g/dL 32-36 [facility] Mean platelet volume determi nationOrdered By: Reina Romero on 12-26-2024 Platelet mean volume (Bld) [Entitic vol] 9.9 fL 6.2-12.0 [facility] Monocyte percentageOrdered B y: Reina Romero on 12-26-2024 Monocytes/100 WBC (Bld) 3.8 % 0-10 [facility] Neutrophil percentageOrdered By: Reina Romero on 12-26-2024 Neutrophils/100 WBC (Bld) 75.1 % High 47-70 [facility] No Panel InformationOrdered By: Reina Romero on 12-26-2024 HIV (1&2) Antibody Non-Reactive Nonreactive [facility] Comment on above: Non-ReactiveReactive Repeatedly reactive samples must be confirmed according to CDC recommended confirmatory algorithms. The subresults for either HIVAG or AHIV can be used as an aid in the selection of the confirmation algorithm for reactive samples.Send out specimens with Reactive results to [facility] for confirmation.Order the HIV antibody detection and differentiation: #[id number] Non-Reactive Nonreactive [facility] Nucleated red blood cell per centageOrdered By: Reina Romero on 12-26-2024 Nucleated RBC/100 WBC (Bld) [Ratio] 0 % 0-5 [facility] Platelet countOrdered By: Wade Romero on 12-26-2024 Platelets (Bld) [#/Vol] 196 10*3/uL 150-450 [facility] RBC Auto (Bld) [#/Vol]Ordere d By: Reina Romero on 12-26-2024 RBC (Bld) [#/Vol] 3.85 10*6/uL Low 4.2-5.4 [facility] Syphilis Antibodieson 2024 Syphilis Abs Non-Reactive Normal Nonreactive [facility] Comment on above: Performed By: #### L 501.0250, L100.0100, L3890.6006, L509.8002 ####[facility] [address] [place], [address] White blood cell (WBC) count Ordered By: Reina Romero on 12-26-2024 WBC (Bld) [#/Vol] 7.6 10*3/uL 4.4-11.0 [facility] Laboratory - Chemistry and C hemistry - challengeOrdered By: Reina Romero on 12-04-2024 Glucose Ql (U) Negative [facility] Laboratory - UrinalysisOrder ed By: Reina Romero on 12-04-2024 Protein Ql (U) Negative [facility] No Panel InformationOrdered By: Reina Romero on 12-04-2024 Negative [facility] Sales Operations Specialist Office Visit Reporton 12-04-2024 Sales Operations Specialist Office Visit Report Normal [facility] Laboratory - Chemistry and C hemistry - challengeOrdered By: Piedad Moreno on 11-07-2024 Glucose Ql (U) Negative [facility] Laboratory - UrinalysisOrder ed By: Piedad Moreno on 11-07-2024 Protein Ql (U) Negative [facility] Sales Operations Specialist Office Visit Reporton 11-07-2024 Sales Operations Specialist Office Visit Report Normal [facility] Genital Culture Comprehensiv coleman 10-18-2024 VAC Reason for Exam: pelvic cramping No Gardnerella, Neisseria or beta-hemolytic Streptococcus isolated. Presumptive C albicans Amount Growth 3+ Normal [facility] Comment on above: Performed By: #### M 100.3200, M1.1999, ####[facility] [address] [place], [address] Urine Cultureon 10-17-2024 URC Below infection level. Mixed Gram Positive Organisms [place] Count 1000-10,000 MIXC Mixed contaminants. Submit a new specimen if indicated. Normal [facility] Comment on above: Performed By: #### M 100.3200, M100.1999, M10 ####[facility] [address] [place], [address] Gram Stainon 10-15-2024 GS Reason for Exam: pelvic cramping Gram Stain Rare Yeast Like Organisms 4+ Gram positive rods No White Blood Cells No Gram negative diplococci Score = 0 Interpretation: 0-3 Normal, 4-6 Intermediate, 7-10 Positive BV Normal [facility] Comment on above: Performed By: #### M 100.3200, M100.1999, M1.0 ####[facility] [address] [place], [address] Gram stainOrdered By: Piedad Moreno on 10-15-2024 Microscopic observation Gram stain Nom (Unsp spec) [facility] Laboratory - Chemistry and C hemistry - challengeOrdered By: Piedad Moreno on 10-15-2024 Glucose Ql (U) Negative [facility] Laboratory - UrinalysisOrder ed By: Piedad Moreno on 10-15-2024 Protein Ql (U) Negative [facility] Sales Operations Specialist Office Visit Reporton 10-15-2024 Sales Operations Specialist Office Visit Report Normal [facility] Urine cultureOrdered By: Chin Moreno on 10-15-2024 Bacteria identified Cx Nom (U) Positive Abnormal [facility] Bilirubin Test strip Ql (U)O rdered By: Mary Jane Wade on 10-11-2024 Bilirubin Ql (U) Negative Negative [facility] Emergency Department Summary on 10-11-2024 Emergency Department Summary Normal [facility] Epithelial cells.squamous LM Ql (Urine sed)Ordered By: Mary Jane Wade on 10-11-2024 Epithelial cells.squamous LM.HPF (Urine sed) [#/Area] 0 /[HPF] 5-10 [facility] Glucose Ql (U)Ordered By: Sidney Wade on 10-11-2024 Urine Glucose (UA) Normal mg/dl Normal [facility] Ketones Test strip Ql (U)Ord ered By: Mary Jane Wade on 10-11-2024 Ketones Ql (U) Negative Negative [facility] Microscopic analysis of urin e for red blood cells (RBC)Ordered By: Mary Jane Wade on 10-11-2024 Microscopic analysis of urine for red blood cells (RBC) 0-5 SEEN /hpf 0-5 [facility] Urine RBC 0-5 SEEN /hpf 0-5 [facility] Mucus LM Ql (Urine sed)Order ed By: Mary Jane Wade on 10-11-2024 Mucus Ql (Urine sed) 0 SEEN /hpf [facility] Nitrite Test strip Ql (U)Ord ered By: Mary Jane Wade on 10-11-2024 Nitrite Ql (U) Negative Negative [facility] Protein Test strip Ql (U)Ord ered By: Mary Jane Wade on 10-11-2024 Protein Ql (U) Negative Negative [facility] Squamous epithelial cells de tection in urine sediment by light microscopyOrdered By: Mary Jane Wade on 10-11-2024 Epithelial cells.squamous LM Ql (Urine sed) 0-5 SEEN /hpf 5-10 [facility] Transvaginal w/Preg USon Transvaginal w/Preg US Normal [facility] Urinalysis, Completeon 10-11 EPI,SQUAMOUS 0-5 SEEN Normal 5-10 [facility] Comment on above: Order Comment: LUCRECIA CTOR TO SPECIFY Performed By: #### L 400.0001 ####[facility] [address] [facility] [address] RBC 0-5 SEEN Normal 0-5 [facility] Comment on above: Order Comment: LUCRECIA CTOR TO SPECIFY Performed By: #### L 400.0001 ####[facility] [address] [place], [address] WBC 0-5 SEEN Normal 0-5 [facility] Comment on above: Order Comment: LUCRECIA CTOR TO SPECIFY Performed By: #### L 400.0001 ####[facility] [address] [place], [address] BACTERIA 0 SEEN Normal None Seen [facility] Comment on above: Order Comment: LUCRECIA CTOR TO SPECIFY Performed By: #### L 400.0001 ####[facility] [address] [place], [address] Mucus Ql (Urine sed) 0 SEEN Normal [facility] Comment on above: Order Comment: LUCRECIA CTOR TO SPECIFY Performed By: #### L 400.0001 ####[facility] [address] [place], [address] Urine blood detectionOrdered By: Mary Jane Wade on 10-11-2024 Urine Occult Blood 25 /ul High Negative [facility] Urine clarityOrdered By: Ellyn Wade on 10-11-2024 Clarity (U) Sl. Cloudy Clear [facility] Urine color determinationOrd ered By: Mary Jane Wade on 10-11-2024 Color (U) Yellow Yellow [facility] Urine glucose detectionOrder ed By: Mary Jane Wade on 10-11-2024 Glucose Ql (U) Normal mg/dl Normal [facility] Urine leukocyte esterase det ection by dipstickOrdered By: Mary Jane Wade on 10-11-2024 Leukocyte esterase Test strip Ql (U) 25 /ul High Negative [facility] Urine pHOrdered By: Mary Jane neal on 10-11-2024 pH (U) 6.0 [pH] 5.0 - 8.0 [facility] Urine sediment bacteria coun t by microscopy (number/high power field)Ordered By: Mary Jane Wade on 10-11-2024 Bacteria LM.HPF (Urine sed) [#/Area] 0 /[HPF] None Seen [facility] Urine specific gravity measu rementOrdered By: Mary Jane Wade on 10-11-2024 Specific gravity (U) [Rel density] 1.015 1.002-1.030 [facility] Urine urobilinogen measureme ntOrdered By: Mary Jane Wade on 10-11-2024 Urobilinogen Ql (U) Normal mg/dl Normal [facility] Urobilinogen Ql (U)Ordered B y: Mary Jane Wade on 10-11-2024 Urine Urobilinogen Normal mg/dl Normal [facility] White blood cell countOrdere d By: Mary Jane Wade on 10-11-2024 Urine WBC 0-5 SEEN /hpf 0-5 [facility] White blood cell count 0-5 SEEN /hpf 0-5 [facility] Laboratory - Chemistry and C hemistry - challengeOrdered By: Suyapa Godinez on 10-07-2024 Bilirubin Ql (U) Negative [facility] Glucose Ql (U) Negative [facility] Ketones Ql (U) Negative [facility] pH (U) 5 [pH] [facility] Specific gravity (U) [Rel density] 1.015 [facility] Urobilinogen (U) [Mass/Vol] Negative [facility] - Hematology and Cell countsOrdered By: Suyapa Godinez on 10-07-2024 Hemoglobin Ql (U) Negative [facility] - Specimen inform ationOrdered By: Suyapa Godinez on 10-07-2024 Clarity (U) Clear [facility] Color (U) Yellow [facility] - UrinalysisOrder ed By: Suyapa Godinez on 10-07-2024 Nitrite Ql (U) Negative [facility] Protein Ql (U) Negative [facility] No Panel InformationOrdered By: Suyapa Godinez on 10-07-2024 Urine Leukocytes Negatve [facility] Urine Non-Hemolyzed Blood Negative [facility] Sales Operations Specialist Office Visit Reporton 10-07-2024 Sales Operations Specialist Office Visit Report Normal [facility] Absolute lymphocyte countOrd ered By: Reina Romero on 09-10-2024 Lymphocytes Auto (Unsp spec) [#/Vol] 1.58 10*3/uL 0.83-4.51 [facility] Absolute neutrophil countOrd ered By: Reina Romero on 09-10-2024 Neutrophils (Bld) [#/Vol] 5.1 10*3/uL 2.0-7.7 [facility] Anion gap in Serum or Plasma Ordered By: Reina Romero on 09-10-2024 Anion gap [Moles/Vol] 13 mmol/L 5-15 [facility] Automated lymphocyte count a s percentage of total leukocytesOrdered By: Reina Romero on 09-10-2024 Lymphocytes/100 WBC Auto (Unsp spec) 22.0 % 19-41 [facility] BUN/creatinine ratioOrdered By: Reina Romero on 09-10-2024 Urea nitrogen/Creatinine [Mass ratio] 17.4 mg/mg 10-20 [facility] Basophil percentageOrdered B y: Reina Romero on 09-10-2024 Basophils/100 WBC (Bld) 0.1 % 0-1 [facility] Bilirubin, totalOrdered By: Reina Romero on 09-10-2024 Bilirubin [Mass/Vol] 0.19 mg/dL 0.00-1.30 [facility] CBC W/Diff, Automatedon Absolute Lymph 1.58 X10 3/uL Normal 0.83-4.51 [facility] Comment on above: Performed By: #### L 3890.6006, L100.0100, L500.4050, BTS, L509.4006, L3890.6301, L509.8002, L900.0098, L501.9985, L3890.6102 ####[facility] [address] [place], [address] Absolute Neut 5.1 X10 3/uL Normal 2.0-7.7 [facility] Comment on above: Performed By: #### L 3890.6006, L100.0100, L500.4050, BTS, L509.4006, L3890.6301, L509.8002, L900.0098, L501.9985, L3890.6102 ####[facility] [address] [facility], [address] Basophils/100 WBC (Bld) 0.1 % Normal 0-1 [facility] Comment on above: Performed By: #### L 3890.6006, L100.0100, L500.4050, BTS, L509.4006, L3890.6301, L509.8002, L900.0098, L501.9985, L3890.6102 ####[facility] [address] [facility], [address] Eosinophils/100 WBC (Bld) 2.6 % Normal 0-5 [facility] Comment on above: Performed By: #### L 3890.6006, L100.0100, L500.4050, BTS, L509.4006, L3890.6301, L509.8002, L900.0098, L501.9985, L3890.6102 ####[facility] [address] [place], [address] Erythrocyte distribution width (RBC) [Ratio] 12.0 % Normal 11.6-14.6 [facility] Comment on above: Performed By: #### L 3890.6006, L100.0100, L500.4050, BTS, L509.4006, L3890.6301, L509.8002, L900.0098, L501.9985, L3890.6102 ####[facility] [address] [place], [address] Hematocrit (Bld) [Volume fraction] 40.2 % Normal 37-47 [facility] Comment on above: Performed By: #### L 3890.6006, L100.0100, L500.4050, BTS, L509.4006, L3890.6301, L509.8002, L900.0098, L501.9985, L3890.6102 ####[facility] [address] [facility], [address] Hemoglobin (Bld) [Mass/Vol] 13.9 g/dL Normal 12.0-15.0 [facility] Comment on above: Performed By: #### L 3890.6006, L100.0100, L500.4050, BTS, L509.4006, L3890.6301, L509.8002, L900.0098, L501.9985, L3890.6102 ####[facility] [address] [facility], [address] IG% 0.300 Normal 0.0-0.9 [facility] Comment on above: Result Comment: IG% - Immature Granulocytes (promyelocytes, myelocytes andmetamyelocytes) > 1% indicates that a LEFT SHIFT is Present. Performed By: #### L 3890.6006, L100.0100, L500.4050, BTS, L509.4006, L3890.6301, L509.8002, L900.0098, L501.9985, L3890.6102 ####[facility] [address] [facility] [place], [address] Lymphocytes/100 WBC (Bld) 22.0 % Normal 19-41 [facility] Comment on above: Performed By: #### L 3890.6006, L100.0100, L500.4050, BTS, L509.4006, L3890.6301, L509.8002, L900.0098, L501.9985, L3890.6102 ####[facility] [address] [place], [address] MCH (RBC) [Entitic mass] 30.0 pg Normal 27.0-32.0 [facility] Comment on above: Performed By: #### L 3890.6006, L100.0100, L500.4050, BTS, L509.4006, L3890.6301, L509.8002, L900.0098, L501.9985, L3890.6102 ####[facility] [address] [place], [address] MCHC (RBC) [Mass/Vol] 34.6 g/dL Normal 32-36 [facility] Comment on above: Performed By: #### L 3890.6006, L100.0100, L500.4050, BTS, L509.4006, L3890.6301, L509.8002, L900.0098, L501.9985, L3890.6102 ####[facility] [address] [place], [address] MCV (RBC) [Entitic vol] 86.6 fL Normal 81-99 [facility] Comment on above: Performed By: #### L 3890.6006, L100.0100, L500.4050, BTS, L509.4006, L3890.6301, L509.8002, L900.0098, L501.9985, L3890.6102 ####[facility] [address] [place], [address] Monocytes/100 WBC (Bld) 4.3 % Normal 0-10 [facility] Comment on above: Performed By: #### L 3890.6006, L100.0100, L500.4050, BTS, L509.4006, L3890.6301, L509.8002, L900.0098, L501.9985, L3890.6102 ####[facility] [address] [place], [address] Neutrophils/100 WBC (Bld) 70.7 % High 47-70 [facility] Comment on above: Performed By: #### L 3890.6006, L100.0100, L500.4050, BTS, L509.4006, L3890.6301, L509.8002, L900.0098, L501.9985, L3890.6102 ####[facility] [address] [place], [address] Nucleated RBC (Bld) [#/Vol] 0 10*3/uL Normal 0-5 [facility] Comment on above: Performed By: #### L 3890.6006, L100.0100, L500.4050, BTS, L509.4006, L3890.6301, L509.8002, L900.0098, L501.9985, L3890.6102 ####[facility] [address] [employer] [facility] [place], [address] Platelet mean volume (Bld) [Entitic vol] 9.6 fL Normal 6.2-12.0 [facility] Comment on above: Performed By: #### L 3890.6006, L100.0100, L500.4050, BTS, L509.4006, L3890.6301, L509.8002, L900.0098, L501.9985, L3890.6102 ####[facility] [address] [place], [address] Platelets (Bld) [#/Vol] 281 10*3/uL Normal 150-450 [facility] Comment on above: Performed By: #### L 3890.6006, L100.0100, L500.4050, BTS, L509.4006, L3890.6301, L509.8002, L900.0098, L501.9985, L3890.6102 ####[facility] [address] [place], [address] RBC (Bld) [#/Vol] 4.64 10*6/uL Normal 4.2-5.4 [facility] Comment on above: Performed By: #### L 3890.6006, L100.0100, L500.4050, BTS, L509.4006, L3890.6301, L509.8002, L900.0098, L501.9985, L3890.6102 ####[facility] [address] [place], [place], [phone](203) RDW SD 37.5 fl Normal 35.1-43.9 [facility] Comment on above: Performed By: #### L 3890.6006, L100.0100, L500.4050, BTS, L509.4006, L3890.6301, L509.8002, L900.0098, L501.9985, L3890.6102 ####[facility] [address] [place], [address] WBC (Bld) [#/Vol] 7.2 10*3/uL Normal 4.4-11.0 [facility] Comment on above: Performed By: #### L 3890.6006, L100.0100, L500.4050, BTS, L509.4006, L3890.6301, L509.8002, L900.0098, L501.9985, L3890.6102 ####[facility] [address] [place], [place], [phone]87) Carbon dioxide, total [Moles /volume] in Central venous bloodOrdered By: Reina Romero on 09-10-2024 CO2 [Moles/Vol] 21.9 mmol/L 21.0-32.0 [facility] Chloride assayOrdered By: Wade dysonchino Heather on 09-10-2024 Chloride [Moles/Vol] 104 mmol/L 98-108 [facility] Comprehensive Metabolic Prof iledison 09-10-2024 GAP 13 Normal 5-15 [facility] Comment on above: Order Comment: NIPT with Gender Performed By: #### L 3890.6006, L100.0100, L500.4050, BTS, L509.4006, L3890.6301, L509.8002, L900.0098, L501.9985, L3890.6102 ####[facility] [address] [place], [address] Albumin [Mass/Vol] 4.4 g/dL Normal 3.5-5.0 [facility] Comment on above: Order Comment: NIPT with Gender Performed By: #### L 3890.6006, L100.0100, L500.4050, BTS, L509.4006, L3890.6301, L509.8002, L900.0098, L501.9985, L3890.6102 ####[facility] [address] [place], [address] Albumin/Globulin [Mass ratio] 1.9 {ratio} Normal 0.9-2.4 [facility] Comment on above: Order Comment: NIPT with Gender Performed By: #### L 3890.6006, L100.0100, L500.4050, BTS, L509.4006, L3890.6301, L509.8002, L900.0098, L501.9985, L3890.6102 ####[facility] [address] [place], [address] ALK PHOS 60 U/L Normal 35-104 [facility] Comment on above: Order Comment: NIPT with Gender Performed By: #### L 3890.6006, L100.0100, L500.4050, BTS, L509.4006, L3890.6301, L509.8002, L900.0098, L501.9985, L3890.6102 ####[facility] [address] [place], [address] ALT [Catalytic activity/Vol] 22 U/L Normal <=34 [facility] Comment on above: Order Comment: NIPT with Gender Performed By: #### L 3890.6006, L100.0100, L500.4050, BTS, L509.4006, L3890.6301, L509.8002, L900.0098, L501.9985, L3890.6102 ####[facility] [address] [place], [place], [id number] AST [Catalytic activity/Vol] 17 U/L Normal <=31 [facility] Comment on above: Order Comment: NIPT with Gender Performed By: #### L 3890.6006, L100.0100, L500.4050, BTS, L509.4006, L3890.6301, L509.8002, L900.0098, L501.9985, L3890.6102 ####[facility] [address] [place], [place], [id number] Bilirubin [Mass/Vol] 0.19 mg/dL Normal 0.00-1.30 [facility] Comment on above: Order Comment: NIPT with Gender Performed By: #### L 3890.6006, L100.0100, L500.4050, BTS, L509.4006, L3890.6301, L509.8002, L900.0098, L501.9985, L3890.6102 ####[facility] [address] [place], [place], [phone] BUN/CRE 17.4 RATIO Normal 10-20 [facility] Comment on above: Order Comment: NIPT with Gender Performed By: #### L 3890.6006, L100.0100, L500.4050, BTS, L509.4006, L3890.6301, L509.8002, L900.0098, L501.9985, L3890.6102 ####[facility] [address] [place], [address] Calcium [Mass/Vol] 9.6 mg/dL Normal 7.6-11.0 [facility] Comment on above: Order Comment: NIPT with Gender Performed By: #### L 3890.6006, L100.0100, L500.4050, BTS, L509.4006, L3890.6301, L509.8002, L900.0098, L501.9985, L3890.6102 ####[facility] [address] [place], [place], [phone] Chloride [Moles/Vol] 104 mmol/L Normal 98-108 [facility] Comment on above: Order Comment: NIPT with Gender Performed By: #### L 3890.6006, L100.0100, L500.4050, BTS, L509.4006, L3890.6301, L509.8002, L900.0098, L501.9985, L3890.6102 ####[facility] [address] [place], [address] CO2 [Moles/Vol] 21.9 mmol/L Normal 21.0-32.0 [facility] Comment on above: Order Comment: NIPT with Gender Performed By: #### L 3890.6006, L100.0100, L500.4050, BTS, L509.4006, L3890.6301, L509.8002, L900.0098, L501.9985, L3890.6102 ####[facility] [address] [place], [address] Creatinine [Mass/Vol] 0.58 mg/dL Low 0.70-1.20 [facility] Comment on above: Order Comment: NIPT with Gender Performed By: #### L 3890.6006, L100.0100, L500.4050, BTS, L509.4006, L3890.6301, L509.8002, L900.0098, L501.9985, L3890.6102 ####[facility] [address] [place], [place], [id number] GFR/1.73 sq M.predicted among non-blacks MDRD (S/P/Bld) [Vol rate/Area] 121 mL/min/{1.73_m2} Normal >60 [facility] Comment on above: Order Comment: NIPT with Gender Result Comment: mL/m in/1.73m2 CKD-EPI Creatinine Equation (2020) Performed By: #### L 3890.6006, L100.0100, L500.4050, BTS, L509.4006, L3890.6301, L509.8002, L900.0098, L501.9985, L3890.6102 ####[facility] [address] [employer] [facility] [place], [place], [phone] Globulin (S) [Mass/Vol] 2.3 g/dL Normal 2.2-4.2 [facility] Comment on above: Order Comment: NIPT with Gender Performed By: #### L 3890.6006, L100.0100, L500.4050, BTS, L509.4006, L3890.6301, L509.8002, L900.0098, L501.9985, L3890.6102 ####[facility] [address] [place], [place], [id number] Glucose [Mass/Vol] 86 mg/dL Normal 70-99 [facility] Comment on above: Order Comment: NIPT with Gender Performed By: #### L 3890.6006, L100.0100, L500.4050, BTS, L509.4006, L3890.6301, L509.8002, L900.0098, L501.9985, L3890.6102 ####[facility] [address] [place], [address] Potassium [Moles/Vol] 3.9 mmol/L Normal 3.3-5.1 [facility] Comment on above: Order Comment: NIPT with Gender Performed By: #### L 3890.6006, L100.0100, L500.4050, BTS, L509.4006, L3890.6301, L509.8002, L900.0098, L501.9985, L3890.6102 ####[facility] [address] [place], [address] Sodium [Moles/Vol] 139 mmol/L Normal 133-145 [facility] Comment on above: Order Comment: NIPT with Gender Performed By: #### L 3890.6006, L100.0100, L500.4050, BTS, L509.4006, L3890.6301, L509.8002, L900.0098, L501.9985, L3890.6102 ####[facility] [address] [place], [address] T PROT 6.7 g/dL Normal 5.9-8.4 [facility] Comment on above: Order Comment: NIPT with Gender Performed By: #### L 3890.6006, L100.0100, L500.4050, BTS, L509.4006, L3890.6301, L509.8002, L900.0098, L501.9985, L3890.6102 ####[facility] [address] [place], [address] Urea nitrogen [Mass/Vol] 10 mg/dL Normal 4-19 [facility] Comment on above: Order Comment: NIPT with Gender Performed By: #### L 3890.6006, L100.0100, L500.4050, BTS, L509.4006, L3890.6301, L509.8002, L900.0098, L501.9985, L3890.6102 ####[facility] [address] [place], [address] Eosinophil percentageOrdered By: Reina Romero on 09-10-2024 Eosinophils/100 WBC (Bld) 2.6 % 0-5 [facility] Erythrocyte distribution wid th ratioOrdered By: Reina Romero on 09-10-2024 Erythrocyte distribution width (RBC) [Ratio] 12.0 % 11.6-14.6 [facility] Erythrocyte distribution wid th standard deviationOrdered By: Reina Romero on 09-10-2024 Erythrocyte distribution width (RBC) [Entitic vol] 37.5 fL 35.1-43.9 [facility] Erythrocyte distribution width (RBC) [Ratio] 37.5 fl 35.1-43.9 [facility] GFR/1.73 sq M.predicted javier g non-blacks MDRD (S/P/Bld) [Vol rate/Area]Ordered By: Reina Romero on 09-10-2024 Estimated GFR (MDRD) Non-Af Amer 121 >60 [facility] Comment on above: mL/min/1.73m2 CKD-EP I Creatinine Equation (2020) Glomerular filtration rate ( GFR) estimation/1.73 sq m using serum, plasma, or whole bOrdered By: Reina Romero on 09-10-2024 GFR/1.73 sq M.predicted among non-blacks MDRD (S/P/Bld) [Vol rate/Area] 121 mL/min/{1.73_m2} >60 [facility] Comment on above: mL/min/1.73m2 CKD-EP I Creatinine Equation (2020) HBV surface Ag Ql (S)Ordered By: Reina Romero on 09-10-2024 Hepatitis B Surface Antigen Non-Reactive Nonreactive [facility] Comment on above: Reactive: Presumptiv e evidence of HBV. Repeatedly reactive samples must be confirmed using a neutralization test ([employer] HBsAg Confirmatory Test)Non-Reactive: HBsAg not detected; does not exclude the possibility of exposure to HBV Hematocrit Auto (Bld) [Volum e fraction]Ordered By: Reina Romero on 09-10-2024 Hematocrit (Bld) [Volume fraction] 40.2 % 37-47 [facility] Hemoglobin A1con 09-10-2024 HbA1c (Bld) [Mass fraction] 5.1 % Low <=5.6 [facility] Comment on above: Performed By: #### L 3890.6006, L100.0100, L500.4050, BTS, L509.4006, L3890.6301, L509.8002, L900.0098, L501.9985, L3890.6102 ####[facility] [address] [place], [address] Hemoglobin A1c percentageOrd ered By: Reina Romero on 09-10-2024 HbA1c (Bld) [Mass fraction] 5.1 % Low >5.7 [facility] Hemoglobin measurementOrdere d By: Reina Romero on 09-10-2024 Hemoglobin (Bld) [Mass/Vol] 13.9 g/dL 12.0-15.0 [facility] Hepatitis C antibodyOrdered By: Renia Romero on 09-10-2024 Hepatitis C Antibody Non-Reactive Nonreactive [facility] Comment on above: Reactive: Presumptiv e evidence of antibodies to HCV. Follow CDC recommendations for supplemental testing.Non-Reactive: Antibodies to HCV were not detected; does not exclude the possibility of exposure to HCVReactive Results are presumptive evidence of antibodies to HCV. Follow CDC recommendations for supplemental testing.Order confirmation testing: HCV Quant by PCR testing - HCVPCR #[id number] Non Reactive: < 0.8 Equivocal: >/= 0.8 to < 1.0 Reactive: >/= 1.0The CDC requires that a reactive/equivocal HCV antibody result be sent out for confirmation. HCV Quant by PCR testing. Immature granulocytes/100 WB C Auto (Bld)Ordered By: Reina Romero on 09-10-2024 Immature granulocytes/100 WBC (Bld) 0.300 % 0.0-0.9 [facility] Comment on above: IG% - Immature Granu locytes (promyelocytes, myelocytes and metamyelocytes) > 1% indicates that a LEFT SHIFT is Present. L3890.6006on 09-10-2024 HIV Non-Reactive Normal Nonreactive [facility] Comment on above: Result Comment: Non- ReactiveReactiveRepeatedly reactive samples must be confirmed according [facility] recommended confirmatory algorithms. The subresults foreither HIVAG or AHIV can be used as an aid in the selectionof the confirmation algorithm for reactive samples.Send out specimens with Reactive results to [facility] forconfirmation.Order the HIV antibody detection and differentiation:lc#[id number] Performed By: #### L 3890.6006, L100.0100, L500.4050, BTS, L509.4006, L3890.6301, L509.8002, L900.0098, L501.9985, L3890.6102 ####[facility] [address] [facility] [place], [place], [id number] L3890.6102on 09-10-2024 HEP B Surf Ag Non-Reactive [facility] Comment on above: Result Comment: Reac tive: Presumptive evidence of HBV. Repeatedly reactivesamples must be confirmed using a neutralization test([employer] HBsAg Confirmatory Test)Non-Reactive: HBsAg not detected; does not exclude thepossibility of exposure to HBV Performed By: #### L 3890.6006, L100.0100, L500.4050, BTS, L509.4006, L3890.6301, L509.8002, L900.0098, L501.9985, L3890.6102 ####[facility] [address] [place], [place], [id number] L3890.6301on 09-10-2024 Hepatitis C Ab Non-Reactive Normal Nonreactive [facility] Comment on above: Result Comment: Reac tive: Presumptive evidence of antibodies to HCV. FollowC recommendations for supplemental testing.Non-Reactive: Antibodies to HCV were not detected; does notexclude the possibility of exposure to HCVReactive Results are presumptive evidence of antibodies toHCV. Follow CDC recommendations for supplemental testing.Order confirmation testing: HCV Quant by PCR testing -HCVPCR #[id number] Non Reactive: < 0.8 Equivocal: >/= 0.8 to < 1.0 Reactive: >/= 1.0The [facility] requires that a reactive/equivocal HCV antibodyresult be sent out for confirmation. HCV Quant by PCRtesting. Performed By: #### L 3890.6006, L100.0100, L500.4050, BTS, L509.4006, L3890.6301, L509.8002, L900.0098, L501.9985, L3890.6102 ####[facility] [address] [place], [place], [id number] L509.4006on 09-10-2024 Rubella IgG REAC Normal Nonreactive [facility] Comment on above: Result Comment: Anti body Result: InterpretationNon-Reactive: Non-ImmuneReactive: ImmuneThe following results were obtained with the ElecsysRubella IgG assay. Results from assays of othermanufacturers cannot be used interchangeably. Performed By: #### L 3890.6006, L100.0100, L500.4050, BTS, L509.4006, L3890.6301, L509.8002, L900.0098, L501.9985, L3890.6102 ####[facility] [address] [place], [place], [address] L509.8002on 09-10-2024 Syphilis Abs Non-Reactive Normal Nonreactive [facility] Comment on above: Performed By: #### L 3890.6006, L100.0100, L500.4050, BTS, L509.4006, L3890.6301, L509.8002, L900.0098, L501.9985, L3890.6102 ####[facility] [address] [place], [place], [id number] Laboratory - Chemistry and C hemistry - challengeOrdered By: Reina Romero on 09-10-2024 AST [Catalytic activity/Vol] 17 U/L <32 [facility] Glucose Ql (U) Negative [facility] Laboratory - Microbiology an d Antimicrobial susceptibilityOrdered By: Reina Romero on 09-10-2024 HBV surface Ag Ql (S) Non-Reactive Nonreactive [facility] Comment on above: Reactive: Presumptiv e evidence of HBV. Repeatedly reactive samples must be confirmed using a neutralization test ([employer] HBsAg Confirmatory Test)Non-Reactive: HBsAg not detected; does not exclude the possibility of exposure to HBV Laboratory - UrinalysisOrder ed By: Reina Romero on 09-10-2024 Protein Ql (U) Negative [facility] Lymphocytes Auto (Unsp spec) [#/Vol]Ordered By: Reina Romero on 09-10-2024 Lymphocytes (Bld) [#/Vol] 1.58 10*3/uL 0.83-4.51 [facility] Lymphocytes/100 WBC Auto (Un sp spec)Ordered By: Reina Romero on 09-10-2024 Lymphocytes/100 WBC (Bld) 22.0 % 19-41 [facility] MCV (mean corpuscular volume ) determinationOrdered By: Reina Romero on 09-10-2024 MCV (RBC) [Entitic vol] 86.6 fL 81-99 [facility] Mean corpuscular hemoglobin (MCH) determinationOrdered By: Reina Romero on 09-10-2024 MCH (RBC) [Entitic mass] 30.0 pg 27.0-32.0 [facility] Mean corpuscular hemoglobin concentration (MCHC) determinationOrdered By: Reina Romero on 09-10-2024 MCHC (RBC) [Mass/Vol] 34.6 g/dL 32-36 [facility] Mean platelet volume determi nationOrdered By: Reina Romero on 09-10-2024 Platelet mean volume (Bld) [Entitic vol] 9.6 fL 6.2-12.0 [facility] Miscellaneous procedureOrder ed By: Reina Romero on 09-10-2024 Miscellaneous Test Comment SEE SCANNED REPORT [facility] Monocyte percentageOrdered B y: Reina Romero on 09-10-2024 Monocytes/100 WBC (Bld) 4.3 % 0-10 [facility] NATERAon 09-10-2024 NATURA SEE SCANNED REPORT Normal [facility] Comment on above: Order Comment: Uzma nts: NIPT with Gender Performed By: #### L 3890.6006, L100.0100, L500.4050, BTS, L509.4006, L3890.6301, L509.8002, L900.0098, L501.9985, L3890.6102 ####[facility] [address] [place], [address] Neutrophil percentageOrdered By: Reina Romero on 09-10-2024 Neutrophils/100 WBC (Bld) 70.7 % High 47-70 [facility] No Panel InformationOrdered By: Reina Romero on 09-10-2024 HIV (1&2) Antibody Non-Reactive Nonreactive [facility] Comment on above: Non-ReactiveReactive Repeatedly reactive samples must be confirmed according to CDC recommended confirmatory algorithms. The subresults for either HIVAG or AHIV can be used as an aid in the selection of the confirmation algorithm for reactive samples.Send out specimens with Reactive results to [facility] for confirmation.Order the HIV antibody detection and differentiation: #[id number] Nucleated red blood cell per centageOrdered By: Reina Romero on 09-10-2024 Nucleated RBC/100 WBC (Bld) [Ratio] 0 % 0-5 [facility] Sales Operations Specialist Office Visit Reporton 09-10-2024 Sales Operations Specialist Office Visit Report Normal [facility] Platelet countOrdered By: Wade Romero on 09-10-2024 Platelets (Bld) [#/Vol] 281 10*3/uL 150-450 [facility] Potassium (Unsp spec) [Mass/ Vol]Ordered By: Reina Romero on 09-10-2024 Potassium [Moles/Vol] 3.9 mmol/L 3.3-5.1 [facility] Potassium measurement (mass/ volume)Ordered By: Reina Romero on 09-10-2024 Potassium (Unsp spec) [Mass/Vol] 3.9 mmol/L 3.3-5.1 [facility] RBC Auto (Bld) [#/Vol]Ordere d By: Reina Romero on 09-10-2024 RBC (Bld) [#/Vol] 4.64 10*6/uL 4.2-5.4 [facility] Rubella immune status determ ination by IgG antibody assayOrdered By: Reina Romero on 09-10-2024 Rubella IgG Antibody REAC Nonreactive [facility] Comment on above: Antibody Result: Int erpretationNon-Reactive: Non-ImmuneReactive: ImmuneThe following results were obtained with the [employer] Rubella IgG assay. Results from assays of other manufacturers cannot be used interchangeably. Serum creatinine measurement (mass/volume)Ordered By: Reina Romero on 09-10-2024 Creatinine [Mass/Vol] 0.58 mg/dL Low 0.70-1.20 [facility] Serum globulin measurementOr dered By: Reina Romero on 09-10-2024 Globulin (S) [Mass/Vol] 2.3 g/dL 2.2-4.2 [facility] Serum glucose measurement (m ass/volume)Ordered By: Reina Romero on 09-10-2024 Glucose [Mass/Vol] 86 mg/dL 70-99 [facility] Serum or plasma alanine isabel otransferase (ALT) measurementOrdered By: Reina Romero on 09-10-2024 ALT [Catalytic activity/Vol] 22 U/L <35 [facility] Serum or plasma albumin jazmine urement (mass/volume)Ordered By: Reina Romero on 09-10-2024 Albumin [Mass/Vol] 4.4 g/dL 3.5-5.0 [facility] Serum or plasma albumin/glob ulin mass ratioOrdered By: Reina Romero on 09-10-2024 Albumin/Globulin [Mass ratio] 1.9 {ratio} 0.9-2.4 [facility] Serum or plasma alkaline molly sphatase measurementOrdered By: Reina Romero on 09-10-2024 ALP [Catalytic activity/Vol] 60 U/L 35-104 [facility] Serum or plasma calcium jazmine urement (mass/volume)Ordered By: Reina Romero on 09-10-2024 Calcium [Mass/Vol] 9.6 mg/dL 7.6-11.0 [facility] Serum or plasma urea nitroge n measurement (mass/volume)Ordered By: Reina Romero on 09-10-2024 Urea nitrogen [Mass/Vol] 10 mg/dL 4-19 [facility] Sodium levelOrdered By: Bernadine Romero on 09-10-2024 Sodium [Moles/Vol] 139 mmol/L 133-145 [facility] T. pallidum abOrdered By: Wade Romero on 09-10-2024 Syphilis Total Antibody Non-Reactive Nonreactiv e [facility] Total proteinOrdered By: Eleonora Romero on 09-10-2024 Protein [Mass/Vol] 6.7 g/dL 5.9-8.4 [facility] Type AND Screenon 09-10-2024 Ab SCREEN GEL Negative Normal [facility] Comment on above: Order Comment: PN Performed By: #### L 3890.6006, L100.0100, L500.4050, BTS, L509.4006, L3890.6301, L509.8002, L900.0098, L501.9985, L3890.6102 ####[facility] [address] [place], [address] White blood cell (WBC) count Ordered By: Reina Romero on 09-10-2024 WBC (Bld) [#/Vol] 7.2 10*3/uL 4.4-11.0 [facility] Laboratory - Chemistry and C hemistry - challengeOrdered By: Suyapa Godinez on 08-26-2024 Glucose Ql (U) Negative [facility] Laboratory - UrinalysisOrder ed By: Suyapa Godinez on 08-26-2024 Protein Ql (U) Negative [facility] Sales Operations Specialist Office Visit Reporton 08-26-2024 Sales Operations Specialist Office Visit Report Normal [facility] Wound Cultureon 08-23-2024 WC Normal [facility] Comment on above: Performed By: #### M 100.3000, M100.2000 ####[facility] [address] [place], [address] Urine Cultureon 08-16-2024 URC Mixed Gram Positive Organisms [place] Count <1000 MIXC Mixed contaminants. Submit a new specimen if indicated. Normal [facility] Comment on above: Performed By: #### L 7000.1800, M100.2200, L501.0900 ####[facility] [address] [place], [address] Chlamydia/GC GUCCI aptimaon CHLAMY,NUC ACID Negative Normal Negative [facility] Comment on above: Performed By: #### L 7000.1800, M100.2200, L501.0900 ####[facility] [address] [place], [address] GC BY NUC ACID Negative Normal Negative [facility] Comment on above: Result Comment: Perf ormed at: =G - [facility] [address] [id number] Director: Rachel Smallwood MD, Phone: [phone] Performed By: #### L 7000.1800, M100.2200, L501.0900 ####[facility] [address] [place], [address] Gram Stainon 08-14-2024 GS vaginal inclusion cyst Gram Stain 1+ Epithelial cells 1+ Gram positive rods Normal [facility] Comment on above: Performed By: #### M 100.3000, M100.2000 ####[facility] [address] [place], [address] C. trachomatis rRNA GUCCI+prob e Ql (Unsp spec)Ordered By: Reina Romero on 08-13-2024 Chlamydia DNA (GUCCI) Negative Negative [facility] Chlamydia trachomatis rRNA d etection by probe and target amplification methodOrdered By: Reina Romero on 08-13-2024 C. trachomatis rRNA GUCCI+probe Ql (Unsp spec) Negative Negative [facility] Gram stainOrdered By: Nicolasa Romero on 08-13-2024 Microscopic observation Gram stain Nom (Unsp spec) [facility] Neisseria gonorrhoeae nuclei c acid detection by amplified probe techniqueOrdered By: Reina Romero on 08-13-2024 N. gonorrhoeae DNA GUCCI+probe Ql (Unsp spec) Negative Negative [facility] Comment on above: Performed at: =[address] [id number] Director: Rachel Smallwood MD, Phone: [phone] Sales Operations Specialist Office Visit Reporton 08-13-2024 Sales Operations Specialist Office Visit Report Normal [facility] Protein+Creatinine Ratio,Uri neon 08-13-2024 PROT:CRE RATIO 90 mg/g CRE Normal 0-200 [facility] Comment on above: Performed By: #### L 7000.1800, M100.2200, L501.0900 ####[facility] [address] [place], [address] Protein (U) [Mass/Vol] 8.8 mg/dL Normal <11.9 [facility] Comment on above: Performed By: #### L 7000.1800, M100.2200, L501.0900 ####[facility] [address] [place], [address] UR CREAT 98.30 mg/dL Normal NO RANGE EST. [facility] Comment on above: Performed By: #### L 7000.1800, M100.2200, L501.0900 ####[facility] [address] [place], [address] Protein/Creatinine (U) [Mass ratio]Ordered By: Reina Romero on 08-13-2024 Urine Protein/Creatinine Ratio 90 mg/g CRE 0-200 [facility] Random urine protein measure mentOrdered By: Reina Romero on 08-13-2024 Protein (U) [Mass/Vol] 8.8 mg/dL 0.0-11.8 [facility] Routine wound cultureOrdered By: Reina Romero on 08-13-2024 Wound Culture Streptococcus sanguinis Abnormal [facility] Wound Culture Presumptive C albicans Abnormal [facility] Wound Culture Actinomyces naeslundii Abnormal [facility] Urine creatinine measurement (mass/volume)Ordered By: Reina Romero on 08-13-2024 Creatinine (U) [Mass/Vol] 98.30 mg/dL NO RANGE EST. [facility] Urine cultureOrdered By: Eleonora Romero on 08-13-2024 Bacteria identified Cx Nom (U) Positive Abnormal [facility] Urine protein/creatinine mas s ratioOrdered By: Reina Romero on 08-13-2024 Protein/Creatinine (U) [Mass ratio] 90 mg/g CRE 0-200 [facility] Gastroenterology Visit Repor ton 07-08-2024 Gastroenterology Visit Report Normal [facility] Chlamydia/GC GUCCI aptimaon CHLAMY,NUC ACID Negative Normal Negative [facility] Comment on above: Performed By: #### M 100.1999, M100.3200, L7000.1800, M100.2200 ####[facility] [address] [place], [address] GC BY NUC ACID Negative Normal Negative [facility] Comment on above: Result Comment: Perf ormed at: =G - [facility] [address] [id number] Director: Rachel Smallwood MD, Phone: [phone] Performed By: #### M 100.1999, M100.3200, L7000.1800, M100.2200 ####[facility] [address] [place], [address] Genital Culture Comprehensiv coleman 06-27-2024 VAC Reason for Exam: vaginal discharge Normal vaginal yulia isolated. No yeast, Gardnerella, Neisseria or beta-hemolytic Streptococcus isolated. Normal [facility] Comment on above: Performed By: #### M 100.1999, M100.3200, L7000.1800, M100.2200 ####[facility] [address] [place], [address] Urine Cultureon 12-19-2024 URC Culture exhibits no growth. Normal [facility] Comment on above: Performed By: #### M 100.2000, M100.3200, L7000.1800, M100.2200 ####[facility] [address] [place], [address] C. trachomatis rRNA GUCCI+prob e Ql (Unsp spec)Ordered By: Ivett Marquez on 06-26-2024 Chlamydia DNA (GUCCI) Negative Negative [facility] Genital cultureOrdered By: Ernestina Marquez on 06-26-2024 Genital Culture Neisseria or beta-hemolytic Streptococcus isolated. [facility] Gram Stainon 06-26-2024 GS Reason for Exam: vaginal discharge Gram Stain 4+ Gram variable christoph Rare Gram positive rods No White Blood Cells Score = 8 Interpretation: 0-3 Normal, 4-6 Intermediate, 7-10 Positive BV Normal [facility] Comment on above: Performed By: #### M 100.2000, M100.3200, L7000.1800, M100.2200 ####[facility] [address] [place], [address] Gram stainOrdered By: Ivett Marquez on 06-26-2024 Microscopic observation Gram stain Nom (Unsp spec) [facility] Laboratory - Chemistry and C hemistry - challengeon 06-26-2024 Bilirubin Ql (U) Negative [facility] Glucose Ql (U) Negative [facility] Ketones Ql (U) Negative [facility] pH (U) 5 [pH] [facility] Specific gravity (U) [Rel density] 1.010 [facility] Urobilinogen (U) [Mass/Vol] Negative [facility] Laboratory - Hematology and Cell countson 06-26-2024 Hemoglobin Ql (U) Negative [facility] Laboratory - Specimen inform ationon 06-26-2024 Clarity (U) Clear [facility] Color (U) Yellow [facility] Laboratory - Urinalysison Nitrite Ql (U) Negative [facility] Protein Ql (U) Negative [facility] Neisseria gonorrhoeae nuclei c acid detection by amplified probe techniqueOrdered By: Ivett Marquez on 06-26-2024 N. gonorrhoeae DNA GUCCI+probe Ql (Unsp spec) Negative Negative [facility] Comment on above: Performed at: =[facility]ann[facility] Adriane goldman [address] [place] [id number] Director: Rachel Smallwood MD, Phone: [phone] No Panel Informationon 06-26 POC Trichomonas (Rapid) Negative [facility] Urine Leukocytes Positive [facility] Urine Non-Hemolyzed Blood [facility] Sales Operations Specialist Office Visit Reporton 06-26-2024 Sales Operations Specialist Office Visit Report Normal [facility] Urine cultureOrdered By: Mak Marquez on 06-26-2024 Bacteria identified Cx Nom (U) Culture exhibits no growth. [facility] Gastroenterology Visit Repor ton 06-24-2024 Gastroenterology Visit Report Normal [facility] Colonoscopy Reporton 024 Colonoscopy Report Normal [facility] MR/POSTOP.ANEon 06-11-2024 MR/POSTOP.ANE Normal [facility] MR/[id number] 06-11-2024 MR/POSTOPAN2 Normal [facility] ,Urineon 06-11-2024 Beta HCG ( test) Ql (U) Negative Normal [facility] Comment on above: Result Comment: Very dilute urine specimens, as indicated by a low specificgravity, may not contain reimbursement representative levels of hCG.If is still suspected, a first morning urinespecimen should be collected 48 hours later and tested. Performed By: #### L 400.7600 ####[facility] [address] [place], [place], [address] Urine testOrdered By: Jose Yanez on 06-11-2024 HCG ( test) Ql (U) Negative [facility] Comment on above: Very dilute urine sp ecimens, as indicated by a low specificgravity, may not contain reimbursement representative levels of hCG. If is still suspected, a first morning urinespecimen should be collected 48 hours later and tested. Inital Evaluation (1) - PTon 05-27-2024 Inital Evaluation (1) - PT Normal [facility] Celiac Disease Profileon ENDOMYSIAL IGA Negative Normal Negative [facility] Comment on above: Order Comment: N Performed By: #### L 3100.1850, L3100.3425, L504.2610, L503.6550, L3410.2400, L503.6150, L503.6075, L100.9950, L100.0100 ####[facility] [address] [place], [place], [id number] tTG IGA <2 Normal 0-3 [facility] Comment on above: Order Comment: N Result Comment: Nega tive 0 - 3 Weak Positive 4 - 10 Positive >10 Tissue Transglutaminase (tTG) has been identified as the endomysial antigen. Studies have demonstr- ated that endomysial IgA antibodies have over 99% specificity for gluten sensitive enteropathy. Performed By: #### L 3100.1850, L3100.3425, L504.2610, L503.6550, L3410.2400, L503.6150, L503.6075, L100.9950, L100.0100 ####[facility] [address] [place], [place], [address] tTG IGG 3 U/mL Normal 0-5 [facility] Comment on above: Order Comment: N Result Comment: Nega tive 0 - 5 Weak Positive 6 - 9 Positive >9 Performed By: #### L 3100.1850, L3100.3425, L504.2610, L503.6550, L3410.2400, L503.6150, L503.6075, L100.9950, L100.0100 ####[facility] [address] [place], [place], [address] Haptoglobinon 05-14-2024 HAPTOGLOBIN 86 mg/dL Normal 33-278 [facility] Comment on above: Order Comment: N Result Comment: Perf ormed at: [facility] [address] [id number] Director: Sukhdev Cullen PhD, Phone: [phone] Performed By: #### L 3100.1850, L3100.3425, L504.2610, L503.6550, L3410.2400, L503.6150, L503.6075, L100.9950, L100.0100 ####[facility] [address] [place], [address] DELIA + Protein Elect, Serumon 05-14-2024 Albumin [Mass/Vol] 3.9 g/dL Normal 2.9-4.4 [facility] Comment on above: Order Comment: N Performed By: #### L 3100.1850, L3100.3425, L504.2610, L503.6550, L3410.2400, L503.6150, L503.6075, L100.9950, L100.0100 ####[facility] [address] [place], [address] Albumin/Globulin [Mass ratio] 1.6 {ratio} Normal 0.7-1.7 [facility] Comment on above: Order Comment: N Performed By: #### L 3100.1850, L3100.3425, L504.2610, L503.6550, L3410.2400, L503.6150, L503.6075, L100.9950, L100.0100 ####[facility] [address] [place], [address] DYXXZ-8-KQMJ 0.2 g/dL Normal 0.0-0.4 [facility] Comment on above: Order Comment: N Performed By: #### L 3100.1850, L3100.3425, L504.2610, L503.6550, L3410.2400, L503.6150, L503.6075, L100.9950, L100.0100 ####[facility] [address] [place], [address] AFDYM-0-IBTW 0.6 g/dL Normal 0.4-1.0 [facility] Comment on above: Order Comment: N Performed By: #### L 3100.1850, L3100.3425, L504.2610, L503.6550, L3410.2400, L503.6150, L503.6075, L100.9950, L100.0100 ####[facility] [address] [place], [address] BETA GLOBULIN 0.9 g/dL Normal 0.7-1.3 [facility] Comment on above: Order Comment: N Performed By: #### L 3100.1850, L3100.3425, L504.2610, L503.6550, L3410.2400, L503.6150, L503.6075, L100.9950, L100.0100 ####[facility] [address] [place], [place], [phone](731) GAMMA GLOBULIN 0.9 g/dL Normal 0.4-1.8 [facility] Comment on above: Order Comment: N Performed By: #### L 3100.1850, L3100.3425, L504.2610, L503.6550, L3410.2400, L503.6150, L503.6075, L100.9950, L100.0100 ####[facility] [address] [place], [address] Globulin (S) [Mass/Vol] 2.6 g/dL Normal 2.2-3.9 [facility] Comment on above: Order Comment: N Performed By: #### L 3100.1850, L3100.3425, L504.2610, L503.6550, L3410.2400, L503.6150, L503.6075, L100.9950, L100.0100 ####[facility] [address] [place], [address] DELIA RESULT,S Comment Normal . [facility] Comment on above: Order Comment: N Result Comment: No m onoclonality detected. Performed By: #### L 3100.1850, L3100.3425, L504.2610, L503.6550, L3410.2400, L503.6150, L503.6075, L100.9950, L100.0100 ####[facility] [address] [place], [address] IMMUNOGLOB A QN 76 mg/dL Low 87-352 [facility] Comment on above: Order Comment: N Performed By: #### L 3100.1850, L3100.3425, L504.2610, L503.6550, L3410.2400, L503.6150, L503.6075, L100.9950, L100.0100 ####[facility] [address] [place], [address] IMMUNOGLOB G QN 922 mg/dL Normal 586-1602 [facility] Comment on above: Order Comment: N Performed By: #### L 3100.1850, L3100.3425, L504.2610, L503.6550, L3410.2400, L503.6150, L503.6075, L100.9950, L100.0100 ####[facility] [address] [place], [address] IMMUNOGLOB M QN 132 mg/dL Normal 26-217 [facility] Comment on above: Order Comment: N Performed By: #### L 3100.1850, L3100.3425, L504.2610, L503.6550, L3410.2400, L503.6150, L503.6075, L100.9950, L100.0100 ####[facility] [address] [place], [address] M-Isra Not Observed Normal Not Observed [facility] Comment on above: Order Comment: N Performed By: #### L 3100.1850, L3100.3425, L504.2610, L503.6550, L3410.2400, L503.6150, L503.6075, L100.9950, L100.0100 ####[facility] [address] [place], [address] NOTE: Comment Normal . [facility] Comment on above: Order Comment: N Result Comment: Prot ein electrophoresis scan will follow via computer,mail, or compactor driver delivery. Performed By: #### L 3100.1850, L3100.3425, L504.2610, L503.6550, L3410.2400, L503.6150, L503.6075, L100.9950, L100.0100 ####[facility] [address] [place], [address] Protein [Mass/Vol] 6.5 g/dL Normal 6.0-8.5 [facility] Comment on above: Order Comment: N Performed By: #### L 3100.1850, L3100.3425, L504.2610, L503.6550, L3410.2400, L503.6150, L503.6075, L100.9950, L100.0100 ####[facility] [address] [place], [address] CBC W/Diff, Automatedon 11-0 Absolute Lymph 1.29 X10 3/uL Normal 0.83-4.51 [facility] Comment on above: Performed By: #### L 3100.1850, L3100.3425, L504.2610, L503.6550, L3410.2400, L503.6150, L503.6075, L100.9950, L100.0100 ####[facility] [address] [place], [address] Absolute Neut 2.6 X10 3/uL Normal 2.0-7.7 [facility] Comment on above: Performed By: #### L 3100.1850, L3100.3425, L504.2610, L503.6550, L3410.2400, L503.6150, L503.6075, L100.9950, L100.0100 ####[facility] [address] [place], [place], [phone](212) Basophils/100 WBC (Bld) 0.9 % Normal 0-1 [facility] Comment on above: Performed By: #### L 3100.1850, L3100.3425, L504.2610, L503.6550, L3410.2400, L503.6150, L503.6075, L100.9950, L100.0100 ####[facility] [address] [place], [address](114) Eosinophils/100 WBC (Bld) 3.8 % Normal 0-5 [facility] Comment on above: Performed By: #### L 3100.1850, L3100.3425, L504.2610, L503.6550, L3410.2400, L503.6150, L503.6075, L100.9950, L100.0100 ####[facility] [address] [place], [address](569) Erythrocyte distribution width (RBC) [Ratio] 13.4 % Normal 11.6-14.6 [facility] Comment on above: Performed By: #### L 3100.1850, L3100.3425, L504.2610, L503.6550, L3410.2400, L503.6150, L503.6075, L100.9950, L100.0100 ####[facility] [address] [place], [address] Hematocrit (Bld) [Volume fraction] 39.3 % Normal 37-47 [facility] Comment on above: Performed By: #### L 3100.1850, L3100.3425, L504.2610, L503.6550, L3410.2400, L503.6150, L503.6075, L100.9950, L100.0100 ####[facility] [address] [place], [address] Hemoglobin (Bld) [Mass/Vol] 13.0 g/dL Normal 12.0-15.0 [facility] Comment on above: Performed By: #### L 3100.1850, L3100.3425, L504.2610, L503.6550, L3410.2400, L503.6150, L503.6075, L100.9950, L100.0100 ####[facility] [address] [place], [address] IG% 0.700 Normal 0.0-0.9 [facility] Comment on above: Result Comment: IG% - Immature Granulocytes (promyelocytes, myelocytes andmetamyelocytes) > 1% indicates that a LEFT SHIFT is Present. Performed By: #### L 3100.1850, L3100.3425, L504.2610, L503.6550, L3410.2400, L503.6150, L503.6075, L100.9950, L100.0100 ####[facility] [address] [place], [address] Lymphocytes/100 WBC (Bld) 29.1 % Normal 19-41 [facility] Comment on above: Performed By: #### L 3100.1850, L3100.3425, L504.2610, L503.6550, L3410.2400, L503.6150, L503.6075, L100.9950, L100.0100 ####[facility] [address] [place], [address] MCH (RBC) [Entitic mass] 29.5 pg Normal 27.0-32.0 [facility] Comment on above: Performed By: #### L 3100.1850, L3100.3425, L504.2610, L503.6550, L3410.2400, L503.6150, L503.6075, L100.9950, L100.0100 ####[facility] [address] [place], [address] MCHC (RBC) [Mass/Vol] 33.1 g/dL Normal 32-36 [facility] Comment on above: Performed By: #### L 3100.1850, L3100.3425, L504.2610, L503.6550, L3410.2400, L503.6150, L503.6075, L100.9950, L100.0100 ####[facility] [address] [place], [place], [phone](538) MCV (RBC) [Entitic vol] 89.1 fL Normal 81-99 [facility] Comment on above: Performed By: #### L 3100.1850, L3100.3425, L504.2610, L503.6550, L3410.2400, L503.6150, L503.6075, L100.9950, L100.0100 ####[facility] [address] [place], [address] Monocytes/100 WBC (Bld) 7.2 % Normal 0-10 [facility] Comment on above: Performed By: #### L 3100.1850, L3100.3425, L504.2610, L503.6550, L3410.2400, L503.6150, L503.6075, L100.9950, L100.0100 ####[facility] [address] [place], [address] Neutrophils/100 WBC (Bld) 58.3 % Normal 47-70 [facility] Comment on above: Performed By: #### L 3100.1850, L3100.3425, L504.2610, L503.6550, L3410.2400, L503.6150, L503.6075, L100.9950, L100.0100 ####[facility] [address] [place], [address] Nucleated RBC (Bld) [#/Vol] 0 10*3/uL Normal 0-5 [facility] Comment on above: Performed By: #### L 3100.1850, L3100.3425, L504.2610, L503.6550, L3410.2400, L503.6150, L503.6075, L100.9950, L100.0100 ####[facility] [address] [place], [address] Platelet mean volume (Bld) [Entitic vol] 9.3 fL Normal 6.2-12.0 [facility] Comment on above: Performed By: #### L 3100.1850, L3100.3425, L504.2610, L503.6550, L3410.2400, L503.6150, L503.6075, L100.9950, L100.0100 ####[facility] [address] [place], [address] Platelets (Bld) [#/Vol] 291 10*3/uL Normal 150-450 [facility] Comment on above: Performed By: #### L 3100.1850, L3100.3425, L504.2610, L503.6550, L3410.2400, L503.6150, L503.6075, L100.9950, L100.0100 ####[facility] [address] [place], [address] RBC (Bld) [#/Vol] 4.41 10*6/uL Normal 4.2-5.4 [facility] Comment on above: Performed By: #### L 3100.1850, L3100.3425, L504.2610, L503.6550, L3410.2400, L503.6150, L503.6075, L100.9950, L100.0100 ####[facility] [address] [place], [place], [id number] RDW SD 43.7 fl Normal 35.1-43.9 [facility] Comment on above: Performed By: #### L 3100.1850, L3100.3425, L504.2610, L503.6550, L3410.2400, L503.6150, L503.6075, L100.9950, L100.0100 ####[facility] [address] [place], [place], [id number] WBC (Bld) [#/Vol] 4.4 10*3/uL Normal 4.4-11.0 [facility] Comment on above: Performed By: #### L 3100.1850, L3100.3425, L504.2610, L503.6550, L3410.2400, L503.6150, L503.6075, L100.9950, L100.0100 ####[facility] [address] [place], [place], [id number] Ferritinon 05-10-2024 Ferritin [Mass/Vol] 88 ng/mL Normal 8-252 [facility] Comment on above: Order Comment: 1 Performed By: #### L 3100.1850, L3100.3425, L504.2610, L503.6550, L3410.2400, L503.6150, L503.6075, L100.9950, L100.0100 ####[facility] [address] [place], [place], [id number] Ironon 05-10-2024 Iron [Mass/Vol] 213 ug/dL High 50-170 [facility] Comment on above: Order Comment: 1 Performed By: #### L 3100.1850, L3100.3425, L504.2610, L503.6550, L3410.2400, L503.6150, L503.6075, L100.9950, L100.0100 ####[facility] [address] [place], [address] Iron Binding Capacity,Totalo n 05-10-2024 TIBC 279 ug/dL Normal 250-450 [facility] Comment on above: Order Comment: 1 Performed By: #### L 3100.1850, L3100.3425, L504.2610, L503.6550, L3410.2400, L503.6150, L503.6075, L100.9950, L100.0100 ####[facility] [address] [place], [address] LDHon 05-10-2024 LDH 161 U/L Normal 84-246 [facility] Comment on above: Order Comment: 1 Performed By: #### L 3100.1850, L3100.3425, L504.2610, L503.6550, L3410.2400, L503.6150, L503.6075, L100.9950, L100.0100 ####[facility] [address] [place], [address] Sales Operations Specialist Office Visit Reporton 05-10-2024 Sales Operations Specialist Office Visit Report Normal [facility] Retic Panelon 05-10-2024 IM RET FRACTION 9.90 Normal 3.00-15.90 [facility] Comment on above: Performed By: #### L 3100.1850, L3100.3425, L504.2610, L503.6550, L3410.2400, L503.6150, L503.6075, L100.9950, L100.0100 ####[facility] [address] [place], [address] RET-HE 34.1 pg Normal 30-35 [facility] Comment on above: Performed By: #### L 3100.1850, L3100.3425, L504.2610, L503.6550, L3410.2400, L503.6150, L503.6075, L100.9950, L100.0100 ####[facility] [address] [place], [address] Retic Count 2.28 High 0.5-1.5 [facility] Comment on above: Performed By: #### L 3100.1850, L3100.3425, L504.2610, L503.6550, L3410.2400, L503.6150, L503.6075, L100.9950, L100.0100 ####[facility] [address] [place], [address] Culture, urineOrdered By: Ajit Moreno on 10-20-2023 Bacteria identified Cx Nom (U) Culture exhibits no growth. [facility] Gram stain for investigation of transfusion reactionOrdered By: Piedad Moreno on 10-20-2023 Microscopic observation Gram stain Nom (Unsp spec) [facility] Laboratory - Chemistry and C hemistry - challengeon 10-20-2023 Bilirubin Ql (U) Negative [facility] Glucose Ql (U) Negative [facility] Ketones Ql (U) Small (15+) [facility] pH (U) 5 [pH] [facility] Specific gravity (U) [Rel density] 1.010 [facility] Urobilinogen (U) [Mass/Vol] Negative [facility] Laboratory - Hematology and Cell countson 10-20-2023 Hemoglobin Ql (U) Negative [facility] Laboratory - Specimen inform ationon 10-20-2023 Clarity (U) Clear [facility] Color (U) Colorless [facility] Laboratory - Urinalysison Nitrite Ql (U) Negative [facility] Protein Ql (U) Negative [facility] No Panel InformationOrdered By: Piedad Moreno on 10-20-2023 Genital Culture Presumptive C albicans [facility] No Panel Informationon 10-19 Urine Leukocytes Negatve [facility] Urine Non-Hemolyzed Blood Negative [facility] Laboratory - Chemistry and C hemistry - challengeon 09-19-2023 Glucose Ql (U) Negative [facility] Laboratory - Urinalysison 03 -12-2024 Protein Ql (U) Negative [facility] Absolute lymphocyte countOrd ered By: Reina Romero on 09-12-2023 Lymphocytes Auto (Unsp spec) [#/Vol] 1.42 10*3/uL 0.83-4.51 [facility] Automated lymphocyte count a s percentage of total leukocytesOrdered By: Reina Romero on 09-12-2023 Lymphocytes/100 WBC Auto (Unsp spec) 23.9 % 19-41 [facility] Basophil percentageOrdered B y: Reina Romero on 09-12-2023 Basophils/100 WBC (Bld) 0.3 % 0-1 [facility] Bilirubin [Mass/Vol] 0.70 mg/dL 0.20-1.00 [facility] Comment on above: For patients on eltr ombopag therapy, use of Dimension [place] TBIL is not recommended. Chloride [Moles/Vol] 107 mmol/L 98-107 [facility] Eosinophils/100 WBC (Bld) 2.4 % 0-5 [facility] Glucose [Mass/Vol] 67 mg/dL 74-106 [facility] Hemoglobin (Bld) [Mass/Vol] 12.4 g/dL 12.0-15.0 [facility] Monocytes/100 WBC (Bld) 5.2 % 0-10 [facility] Neutrophils (Bld) [#/Vol] 4.1 10*3/uL 2.0-7.7 [facility] Neutrophils/100 WBC (Bld) 68.0 % 47-70 [facility] Potassium [Moles/Vol] 3.2 mmol/L 3.5-5.1 [facility] Protein [Mass/Vol] 6.9 g/dL 6.4-8.2 [facility] Sodium [Moles/Vol] 139 mmol/L 136-145 [facility] WBC (Bld) [#/Vol] 6.0 10*3/uL 4.4-11.0 [facility] Determination of erythrocyte mean corpuscular volume (MCV)Ordered By: Reina Romero on 09-12-2023 MCV (RBC) [Entitic vol] 87.5 fL 81-99 [facility] Erythrocyte distribution wid th ratioOrdered By: Reina Romero on 09-12-2023 Erythrocyte distribution width (RBC) [Ratio] 12.5 % 11.6-14.6 [facility] Erythrocyte distribution wid th standard deviationOrdered By: Reina Romero on 09-12-2023 Erythrocyte distribution width (RBC) [Entitic vol] 39.5 fL 35.1-43.9 [facility] HIV 1 and HIV-2 antibody ass ay with HIV-1 p24 antigen detectionOrdered By: Reina Romero on 09-12-2023 HIV 1+2 Ab+HIV1 p24 Ag IA Ql Non-Reactive Nonreactive [facility] Hematocrit Auto (Bld) [Volum e fraction]Ordered By: Reina Romero on 09-12-2023 Hematocrit (Bld) [Volume fraction] 35.7 % 37-47 [facility] Immature granulocytes/100 WB C Auto (Bld)Ordered By: Reina Romero on 09-12-2023 Immature granulocytes/100 WBC (Bld) 0.200 % 0.0-0.9 [facility] Comment on above: IG% - Immature Granu locytes (promyelocytes, myelocytes and metamyelocytes) > 1% indicates that a LEFT SHIFT is Present. Laboratory - Chemistry and C hemistry - challengeOrdered By: Reina Romero on 09-12-2023 Albumin/Globulin [Mass ratio] 1.2 {ratio} 0.9-2.4 [facility] ALP [Catalytic activity/Vol] 46 U/L 45-117 [facility] ALT [Catalytic activity/Vol] 15 U/L 13-56 [facility] CO2 [Moles/Vol] 23.0 mmol/L 21.0-32.0 [facility] Globulin (S) [Mass/Vol] 3.2 g/dL 2.2-4.2 [facility] Urea nitrogen/Creatinine [Mass ratio] 16.5 mg/mg 10-20 [facility] Laboratory - Hematology and Cell countsOrdered By: Reina Romero on 09-12-2023 MCH (RBC) [Entitic mass] 30.4 pg 27.0-32.0 [facility] MCHC (RBC) [Mass/Vol] 34.7 g/dL 32-36 [facility] Nucleated RBC/100 WBC (Bld) [Ratio] 0 % 0-5 [facility] Platelet mean volume (Bld) [Entitic vol] 9.3 fL 6.2-12.0 [facility] Platelets (Bld) [#/Vol] 258 10*3/uL 150-450 [facility] No Panel InformationOrdered By: Reina Romero on 09-12-2023 Estimated GFR (MDRD) Amer 145 mL/min >60 [facility] Comment on above: GFR Calc Estimated GFR (MDRD) Non-Af Amer 119 mL/min >60 [facility] Comment on above: Non- GFR Calc Hepatitis B Surface Antigen Non-Reactive Nonreactive [facility] Hepatitis C Antibody Non-Reactive Nonreactive [facility] Comment on above: Non Reactive: < 0.8 Equivocal: >/= 0.8 to < 1.0 Reactive: >/= 1.0The CDC requires that a reactive/equivocal HCV antibody result be sent out for confirmation. HCV Quant by PCR testing. Miscellaneous Test Comment SEE SCANNED REPORT [facility] Rubella IgG Antibody Reactive Nonreactive [facility] Comment on above: Antibody Results Int erpretation of Immune Status Non Reactive Presumed Non-Immune Equivocal Equivocal Reactive Presumed Immune RBC Auto (Bld) [#/Vol]Ordere d By: Reina Romero on 09-12-2023 RBC (Bld) [#/Vol] 4.08 10*6/uL 4.2-5.4 [facility] Serum Treponema species anti body detectionOrdered By: Reina Romero on 09-12-2023 Treponema sp Ab Ql (S) Non-Reactive [facility] Serum or plasma calcium jazmine urement (mass/volume)Ordered By: Reina Romero on 09-12-2023 Calcium [Mass/Vol] 9.2 mg/dL 8.5-10.1 [facility] Serum or plasma creatinine m easurement (mass/volume)Ordered By: Reina Romero on 09-12-2023 Creatinine [Mass/Vol] 0.61 mg/dL 0.55-1.02 [facility] Comment on above: The validity of the calculated GFR & GFRAA in patients over 70 years has not been determined. Clinical correlation is essential. Serum or plasma urea nitroge n measurement (mass/volume)Ordered By: Reina Romero on 09-12-2023 Urea nitrogen [Mass/Vol] 10 mg/dL 7-18 [facility] Thin prep Papanicolaou smear with manual screeningOrdered By: Reina Romero on 09-12-2023 Thin prep Papanicolaou smear with manual screening 3.7 g/dL 3.2-5.0 [facility] Thin prep Papanicolaou smear with manual screening 11 U/L 15-37 [facility] Thin prep Papanicolaou smear with manual screening 9 5-15 [facility] Chlamydia trachomatis rRNA d etection by probe and target amplification methodOrdered By: Reina Romero on 08-21-2023 C. trachomatis rRNA GUCCI+probe Ql (Unsp spec) Negative Negative [facility] Culture, urineOrdered By: Wade Romero on 08-21-2023 Bacteria identified Cx Nom (U) Culture exhibits no growth. [facility] Bacteria identified Cx Nom (U) Culture exhibits no growth. [facility] Laboratory - Microbiology an d Antimicrobial susceptibilityOrdered By: Reina Romero on 08-21-2023 N. gonorrhoeae DNA GUCCI+probe Ql (Unsp spec) Negative Negative [facility] Comment on above: Performed at: =[address] [id number] Director: Rachel Smallwood MD, Phone: [phone] Thin prep Papanicolaou smear with manual screeningOrdered By: Reina Romero on 08-21-2023 Protein (U) [Mass/Vol] 10.0 mg/dL 0.0-11.8 [facility] Urine creatinine measurement (mass/volume)Ordered By: Reina Romero on 08-21-2023 Creatinine (U) [Mass/Vol] 70.10 mg/dL NO RANGE EST. [facility] Urine protein/creatinine mas s ratioOrdered By: Reina Romero on 08-21-2023 Protein/Creatinine (U) [Mass ratio] 143 mg/g CRE 0-200 [facility] Absolute lymphocyte countOrd ered By: Cholo Smith on 05-26-2023 Lymphocytes Auto (Unsp spec) [#/Vol] 1.71 10*3/uL 0.83-4.51 [facility] Basophil percentageOrdered B y: Cholo Smith on 05-26-2023 Basophils/100 WBC (Bld) 1.1 % 0-1 [facility] Eosinophils/100 WBC (Bld) 3.6 % 0-5 [facility] Neutrophils (Bld) [#/Vol] 2.5 10*3/uL 2.0-7.7 [facility] Neutrophils/100 WBC (Bld) 52.6 % 47-70 [facility] WBC (Bld) [#/Vol] 4.7 10*3/uL 4.4-11.0 [facility] Blood erythrocytes count (nu mber/volume)Ordered By: Cholo Smith on 05-26-2023 RBC (Bld) [#/Vol] 4.24 10*6/uL 4.2-5.4 [facility] Blood hemoglobin measurement (mass/volume)Ordered By: Cholo Smith on 05-26-2023 Hemoglobin (Bld) [Mass/Vol] 13.4 g/dL 12.0-15.0 [facility] Blood lymphocytes/100 leukoc ytesOrdered By: Cholo Smith on 05-26-2023 Lymphocytes/100 WBC (Bld) 36.3 % 19-41 [facility] Blood monocytes/100 leukocyt esOrdered By: Cholo Smith on 05-26-2023 Monocytes/100 WBC (Bld) 6.2 % 0-10 [facility] Blood platelet mean volumeOr dered By: Cholo Smith on 05-26-2023 Platelet mean volume (Bld) [Entitic vol] 9.5 fL 6.2-12.0 [facility] Determination of erythrocyte mean corpuscular volume (MCV)Ordered By: Cholo Smith on 05-26-2023 MCV (RBC) [Entitic vol] 92.0 fL 81-99 [facility] Hematocrit Auto (Bld) [Volum e fraction]Ordered By: Cholo Smith on 05-26-2023 Hematocrit (Bld) [Volume fraction] 39.0 % 37-47 [facility] Iron measurement (mass/mass) Ordered By: Cholo Smith on 05-26-2023 Iron (Unsp spec) [Mass/Mass] 49 ug/dL 50-170 [facility] Laboratory - Hematology and Cell countsOrdered By: Cholo Smith on 05-26-2023 Erythrocyte distribution width (RBC) [Entitic vol] 44.3 fL 35.1-43.9 [facility] Erythrocyte distribution width (RBC) [Ratio] 13.5 % 11.6-14.6 [facility] Immature granulocytes/100 WBC (Bld) 0.200 % 0.0-0.9 [facility] Comment on above: IG% - Immature Granu locytes (promyelocytes, myelocytes and metamyelocytes) > 1% indicates that a LEFT SHIFT is Present. MCH (RBC) [Entitic mass] 31.6 pg 27.0-32.0 [facility] Nucleated RBC/100 WBC (Bld) [Ratio] 0 % 0-5 [facility] MCHC Auto (RBC) [Mass/Vol]Or dered By: Cholo Smith on 05-26-2023 MCHC (RBC) [Mass/Vol] 34.4 g/dL 32-36 [facility] Platelets bldOrdered By: Migdalia Smith on 05-26-2023 Platelets (Bld) [#/Vol] 349 10*3/uL 150-450 [facility] Serum or plasma ferritin esther surement (mass/volume)Ordered By: Cholo Smith on 05-26-2023 Ferritin [Mass/Vol] 11 ng/mL 8-252 [facility] XR Tibia and Fibula - left A P and Lateralon 05-15-2023 IMPRESSION: Negative [employer] Home Installer: MALOU Transcribe Date/Time: May 15 2023 10:18A Dictated by : JENNI CHINCHILLA MD This examination was interpreted and the report reviewed and electronically signed by: JENNI CHINCHILLA MD on May 15 2023 10:18AM [facility] * * *Final Report* * [...] joint spaces and soft tissues are unremarkable. [facility] Provider, Esther Merritt - 05/15/2023 * [...] soft tissues are unremarkable. IMPRESSION IMPRESSION: Negative [employer] Home Installer: MALOU Transcribe Date/Time: May 15 2023 10:18A Dictated by : JENNI CHINCHILLA MD This examination was interpreted and the report reviewed and electronically signed by: JENNI CHINCHILLA MD on May 15 2023 10:18AM EST [facility] XR Tibia and Fibula - left A P and LateralOrdered By: Ccf Provider on 05-15-2023 [facility] CNOVon 05-12-2023 CNOV Office Visit (ORMDNA ) MANDI VALENTE ([id number]) 1990 F Date Time Provider Department 05/12/23 10:30 AM KELLY CALABRESE During your visit today, we recorded the following information about you: Kelly Calabrese PA-C 05/12/2023 2:41 PM Signed Kelly Calabrese PA-C Department of Orthopaedics Orthopaedics [facility] [address] [address] Dept: [phone] May 12, 2023 SUBJECTIVE: CHIEF COMPLAINT: Established [...] Diagnosis:Strain of calf muscle, left, initial encounter [S86.723Y] Order(s):CONSULT TO PHYSICAL THERAPY [9032] Order #: [id number]: 1 FUTURE Prescriptions as of 05/12/2023 - [...] trunk: c (more content not included)... Normal [facility] XR TIBIA FIBULA 2V AP/LAT LT [...] and soft tissues are unremarkable. IMPRESSION: Negative [employer] Home Installer: MALOU Transcribe Date/Time: May 15 2023 10:18A Dictated by : JENNI CHINCHILLA MD This examination was interpreted and the report reviewed and electronically signed by: JENNI CHINCHILLA MD on May 15 2023 10:18AM EST [id number] N [facility] XR Tibia and Fibula - left A P and Lateralon 05-12-2023 Radiology Study observation (narrative) [facility] annia [facility] Absolute lymphocyte countOrd ered By: Nicole Rhodes on 03-22-2023 Lymphocytes Auto (Unsp spec) [#/Vol] 1.76 10*3/uL 0.83-4.51 [facility] Basophil percentageOrdered B y: Nicole Rhodes on 03-22-2023 Basophils/100 WBC (Bld) 0.7 % 0-1 [facility] Bilirubin [Mass/Vol] 0.40 mg/dL 0.20-1.00 [facility] Comment on above: For patients on eltr ombopag therapy, use of Dimension [place] TBIL is not recommended. Chloride [Moles/Vol] 109 mmol/L 98-107 [facility] Cholesterol [Mass/Vol] 134 mg/dL <200 [facility] Comment on above: <200 mg/dL Desirable 200-240 mg/dL Borderline >240 mg/dL High Risk Eosinophils/100 WBC (Bld) 3.8 % 0-5 [facility] Glucose [Mass/Vol] 81 mg/dL 74-106 [facility] Neutrophils (Bld) [#/Vol] 3.5 10*3/uL 2.0-7.7 [facility] Neutrophils/100 WBC (Bld) 60.1 % 47-70 [facility] Potassium [Moles/Vol] 3.7 mmol/L 3.5-5.1 [facility] Protein [Mass/Vol] 6.9 g/dL 6.4-8.2 [facility] Sodium [Moles/Vol] 140 mmol/L 136-145 [facility] Triglyceride [Mass/Vol] 58 mg/dL <199 [facility] Comment on above: The drugs N-Acetylcy steine and Metamizole may falsely depress this assay.Serum Triglycerides Reference Interval Normal <150 mg/dL Borderline high 150 - 199 mg/dL High 200 - 499 mg/dL Very High > or = 500 mg/dL WBC (Bld) [#/Vol] 5.9 10*3/uL 4.4-11.0 [facility] Blood erythrocytes count (nu mber/volume)Ordered By: Nicole Rhodes on 03-22-2023 RBC (Bld) [#/Vol] 3.98 10*6/uL 4.2-5.4 [facility] Blood hemoglobin measurement (mass/volume)Ordered By: Nicole Rhodes on 03-22-2023 Hemoglobin (Bld) [Mass/Vol] 11.0 g/dL 12.0-15.0 [facility] Blood lymphocytes/100 leukoc ytesOrdered By: Nicole Rhodes on 03-22-2023 Lymphocytes/100 WBC (Bld) 30.1 % 19-41 [facility] Blood monocytes/100 leukocyt esOrdered By: Nicole Rhodes on 03-22-2023 Monocytes/100 WBC (Bld) 4.8 % 0-10 [facility] Blood platelet mean volumeOr dered By: Nicole Rhodes on 03-22-2023 Platelet mean volume (Bld) [Entitic vol] 10.3 fL 6.2-12.0 [facility] Determination of erythrocyte mean corpuscular volume (MCV)Ordered By: Nicole Rhodes on 03-22-2023 MCV (RBC) [Entitic vol] 88.2 fL 81-99 [facility] Hematocrit Auto (Bld) [Volum e fraction]Ordered By: Nicole Rhodes on 03-22-2023 Hematocrit (Bld) [Volume fraction] 35.1 % 37-47 [facility] Iron measurement (mass/mass) Ordered By: Nicole Rhodes on 03-22-2023 Iron (Unsp spec) [Mass/Mass] 33 ug/dL 50-170 [facility] Laboratory - Chemistry and C hemistry - challengeOrdered By: Nicole Rhodes on 03-22-2023 ALP [Catalytic activity/Vol] 45 U/L 45-117 [facility] ALT [Catalytic activity/Vol] 13 U/L 13-56 [facility] CO2 [Moles/Vol] 28.0 mmol/L 21.0-32.0 [facility] Cobalamin (Vitamin B12) [Mass/Vol] 420 pg/mL 211-911 [facility] Globulin (S) [Mass/Vol] 3.0 g/dL 2.2-4.2 [facility] Urea nitrogen/Creatinine [Mass ratio] 10.5 mg/mg 10-20 [facility] Laboratory - Hematology and Cell countsOrdered By: Nicoleelieser Rhodes on 03-22-2023 Erythrocyte distribution width (RBC) [Entitic vol] 41.7 fL 35.1-43.9 [facility] Erythrocyte distribution width (RBC) [Ratio] 12.9 % 11.6-14.6 [facility] Immature granulocytes/100 WBC (Bld) 0.500 % 0.0-0.9 [facility] Comment on above: IG% - Immature Granu locytes (promyelocytes, myelocytes and metamyelocytes) > 1% indicates that a LEFT SHIFT is Present. MCH (RBC) [Entitic mass] 27.6 pg 27.0-32.0 [facility] Nucleated RBC/100 WBC (Bld) [Ratio] 0 % 0-5 [facility] MCHC Auto (RBC) [Mass/Vol]Or dered By: Nicole Rhodes on 03-22-2023 MCHC (RBC) [Mass/Vol] 31.3 g/dL 32-36 [facility] No Panel InformationOrdered By: Nicole Rhodes on 03-22-2023 Estimated GFR (MDRD) Amer 111 mL/min >60 [facility] Comment on above: GFR Calc Estimated GFR (MDRD) Non-Af Amer 92 mL/min >60 [facility] Comment on above: Non- GFR Calc Vitamin D 25-Hydroxy 51.8 ng/mL [facility] Comment on above: Vitamin D 25(OH) Sta tus Range Deficiency <20 ng/mL (50nmol/L) Insufficiency 20 - 30 ng/mL (50 - 75 nmol/L) Sufficiency 30 - 100 ng/mL (75 - 250 nmol/L) Toxicity >100 ng/mL (>250 nmol/L) Platelets bldOrdered By: Dory Rhodes on 03-22-2023 Platelets (Bld) [#/Vol] 276 10*3/uL 150-450 [facility] Serum or plasma albumin jazmine urement (mass/volume)Ordered By: Nicole Rhodes on 03-22-2023 Albumin [Mass/Vol] 3.9 g/dL 3.2-5.0 [facility] Serum or plasma albumin/glob ulin mass ratioOrdered By: Nicole Rhodes on 03-22-2023 Albumin/Globulin [Mass ratio] 1.3 {ratio} 0.9-2.4 [facility] Serum or plasma calcium jazmine urement (mass/volume)Ordered By: Nicole Rhodes on 03-22-2023 Calcium [Mass/Vol] 8.8 mg/dL 8.5-10.1 [facility] Serum or plasma cholesterol in HDL measurement (mass/volume)Ordered By: Nicole Rhodes on 03-22-2023 Cholesterol in HDL [Mass/Vol] 52 mg/dL >40 [facility] Comment on above: The drugs N-Acetylcy steine and Metamizole may falsely depress this assay. Reference Range HDL <40 mg/dL Low HDL Cholesterol HDL >or= 60 mg/dL High HDL Cholesterol Serum or plasma cholesterol in VLDL measurement (mass/volume)Ordered By: Nicole Rhodes on 03-22-2023 Cholesterol in VLDL [Mass/Vol] 12 mg/dL 5-40 [facility] Serum or plasma creatinine m easurement (mass/volume)Ordered By: Nicole Rhodes on 03-22-2023 Creatinine [Mass/Vol] 0.76 mg/dL 0.55-1.02 [facility] Comment on above: The validity of the calculated GFR & GFRAA in patients over 70 years has not been determined. Clinical correlation is essential. Serum or plasma ferritin esther surement (mass/volume)Ordered By: Nicole Rhodes on 03-22-2023 Ferritin [Mass/Vol] 5 ng/mL 8-252 [facility] Serum or plasma low density lipoprotein (LDL) cholesterol measurement (mass/volume)Ordered By: Nicole Rhodes on 03-22-2023 Cholesterol in LDL [Mass/Vol] 70 mg/dL 0-130 [facility] Serum or plasma urea nitroge n measurement (mass/volume)Ordered By: Nicole Rhodes on 03-22-2023 Urea nitrogen [Mass/Vol] 8 mg/dL 7-18 [facility] Thin prep Papanicolaou smear with manual screeningOrdered By: [facility] 03-22-2023 Thin prep Papanicolaou smear with manual screening 6 U/L 15-37 [facility] Thin prep Papanicolaou smear with manual screening 3 5-15 [facility] Cervical or vagninal specime n microscopic examination by cytology stain (reported asOrdered By: Jenni Coyle on 03-03-2023 Cytology report Cyto stain Doc (Cvx/Vag) Comment . [facility] Comment on above: The Pap smear [...] DNA Probe+sig amp Ql (Cvx) Negative Negative [facility] Comment on above: This nucleic acid am plification test detects fourteen high-risk HPV types (16,18,31,33,35,39,45,51,52,56,58,59,66,68)without differentiation. Laboratory - CytologyOrdered By: Jenni Coyle on 03-03-2023 Meter Setter Cyto stain Nom (Cvx/Vag) [ID] Comment . [facility] Comment on above: Alexa Person Cyt otechnologist (ASCP) Laboratory - Miscellaneous t estsOrdered By: Jenni Coyle on 03-03-2023 Service comment (Unsp spec) [Interp] Comment . [facility] Comment on above: This liquid based Th inPrep(R) pap test was screened withthe use of an image guided system. Service comment (Unsp spec) [Interp] . . [facility] Liquid-based cerv Pap + CT/G C by GUCCI w reflex to high-risk HPV for ASCUSOrdered By: Jenni Coyle on 03-03-2023 Cytology report Cyto stain.thin prep Doc (Cvx/Vag) Comment . [facility] Comment on above: Criteria not met, HP V Genotype not performed.Performed at: [facility] [id number] [place], [place] [id number] Director: Kamran Banerjee MD, Phone: [phone] at: [facility] [address] [id number] Director: Rachel Smallwood MD, Phone: [phone] at: = - [facility] [id number] Director: Rachel Smallwood MD, Phone: [phone] No Panel InformationOrdered By: Jenni Coyle on 03-03-2023 Pathology report final diagnosis Narrative Comment . [facility] Comment on above: NEGATIVE FOR INTRAEP ITHELIAL LESION OR MALIGNANCY. CNOVon 03-01-2023 CNOV Office Visit (ORMDNA ) MANDI VALENTE ([id number]) 1990 F Date Time Provider Department 03/01/23 [...] Visit: Pain [78] Follow Up [171] New [[id number]] Primary Visit Diagnosis:Pain of right hip [M25.551] Other Visit D (more content not included)... [facility] XR HIP 3V PELV+ AP/LAT LTon [...] pathology. Mild narrowing of both hip joints Custom Home Installer: PSC Transcribe Date/Time: Mar 01 2023 2:33P Dictated by : MONTANA QUIÑONES DO This examination was interpreted and the report reviewed and electronically signed by: MONTANA QUIÑONES DO on Mar 01 2023 2:33PM EST [id number] [facility] XR Pelvis and Hip - left AP and Lateral frogon 03-01-2023 IMPRESSION: No acute pathology. Mild narrowing of both hip joints Custom Home Installer: PSCB Transcribe Date/Time: Mar 01 2023 2:33P Dictated by : MONTANA QUIÑONES DO This examination was interpreted and the report reviewed and electronically signed by: MONTANA QUIÑONES DO on Mar 01 2023 2:33PM EST [facility] * * *Final Report* * * [...] hip: No fractures or dislocations are seen. [facility] Provider, Esther Merritt - 03/01/2023 * [...] pathology. Mild narrowing of both hip joints Custom Home Installer: MALOU Transcribe Date/Time: Mar 01 2023 2:33P Dictated by : MONTANA QUIÑONES DO This examination was interpreted and the report reviewed and electronically signed by: MONTANA QUIÑONES DO on Mar 01 2023 2:33PM [facility] Radiology Study observation (narrative) Clemente frazier [facility] XR Pelvis and Hip - left AP and Lateral frogOrdered By: Esther Provider on 03-01-2023 [facility] Laboratory - Microbiology an d Antimicrobial susceptibilityon 02-18-2023 S. pyogenes Ag IA Ql (Unsp spec) Negative [facility] CNOVon 12-28-2022 CNOV Office Visit (ORMDNA ) MANDI VALENTE ([id number]) 1990 F Date Time Provider Department 12/28/22 9:45 AM CATHRYN MORRELL During your visit today, we recorded the following information about you: Cathryn Meng Porsche, 12/28/2022 1:02 PM Signed Follow Up Visit [...] Morrell D.O. M.P.H. Referring Provider: PIERRE HICKS [[id number]] Allergies As of Date: 12/28/2022 (No Known [...] tablet Take (more content not included)... Normal [facility] CNOVon 11-21-2022 CNOV Office Visit (IVONENA ) MANDI VALENTE ([id number]) 1990 F Date Time Provider Department 11/21/22 [...] Order(s):CONSULT TO PHYSICAL THERAPY [9032] Order #: [id number]: 1 FUTURE Prescriptions as of 11/21/2022 - [...] Encounter Status:Closed by PIERRE HICKS on 11/21/22 [facility]OR[facility]NA[facility] MANDI VALENTE ([id number]) 1990 F Date Time Provider Department 11/09/22 [...] have questions, patient can be reached at [phone] Rhonda Sow RN 11/09/2022 2:57 PM Signed [...] Encounter Status:Closed by AVERY ARMANDO on 12/23/22 [facility] ANES POSTPROC EVALon 023 ANES POSTPROC EVAL HNO ID: [id number] Author: August Santizo MD Service: Anesthesiology Author Type: Anesthesiologist Type: Anesthesia Postprocedure Evaluation Filed: 11/08/2022 1:20 PM Note Text: POST ANESTHESIA EVALUATION NOTE : 1990 Procedure Summary Date: 11/08/22 Room / Location: [place] Anesthesia Start: 1111 Anesthesia Stop: 1233 [...] November 08, 2022 TIME: 1:20 PM CSN: [id number] [facility] ANES PRE-OPon 11-08-2022 ANES PRE-OP HNO ID: [id number] Author: August Santizo MD Service: Anesthesiology Author Type: Anesthesiologist Type: Anesthesia Preprocedure Evaluation Filed: 11/08/2022 10:21 AM Note Text: ANESTHESIOLOGY DAY OF SURGERY NOTE : 1990 Procedure Information Date/Time: 11/08/22 1108 Procedure: EXCISION TROCHANTERIC BURSA OR CALCIFICATION (Right: Hip) Location[place] OR02 / [place] Surgeons: Cathryn Morrell DO Estimated body [...] and consent discussed: yes. Patient / Responsible Constitution Party agrees to proceed: yes Patient / [...] November 08, 2022 TIME: 10:21 AM CSN: [id number] [facility] OPERATIVE NOon 11-08-2022 OPERATIVE NO HNO ID: [id number] Author: Cathryn Morrell DO Service: Orthopaedic Surgery Author Type: Physician Type: Operative Report Filed: 11/08/2022 1:21 PM Note Text: OPERATIVE/PROCEDURE REPORT LOG ID: [id number] SURGERY/PROCEDURE DATE: 11/08/2022 INCISION/PROCEDURE START TIME: 11:35 AM INCISION CLOSE/PROCEDURE END TIME: 12:18 PM SURGEON(S)/PROCEDURAL IST(S) AND SOUND TRUCK OPERATOR(S): Surgeon(s) and Role: * Cathryn Morrell DO - Primary Nurse Practitioner: Lisseth Wright APRN.MAJOR DONOR COORDINATOR Physician Military Science Instructor: Kelly Calabrese PA-C SURGERY/PROCEDURE(S): Right hip arthroscopy, [...] DATE: November 08, 2022 TIME: 12:47 PM [facility] XR FLUOROSCOPYon 11-08-2022 XR FLUOROSCOPY * * *Final Report* * * DATE OF EXAM: Nov 08 2022 12:15PM [facility] 5513 - XR FLUOROSCOPY / PROCEDURE REASON: [...] Please refer to the performing LIP's report. Custom Home Installer: MALUO Transcribe Date/Time: Nov 08 2022 1:56P Dictated by : JENNI CHINCHILLA MD This examination was interpreted and the report reviewed and electronically signed by: JENNI CHINCHILLA MD on Nov 08 2022 1:57PM EST [id number] N [facility] 11-02-2022 [facility] Office Visit (ORMDNA ) MANDI VALENTE ([id number]) 1990 F Date Time Provider Department 11/02/22 [...] Patient's questions (more content not included)... Normal [facility] HISTORY PHYSICALon HISTORY PHYSICAL HNO ID: [id number] Author: Stefany De La Torre PA-C Service: ? Author Type: Physician Military Science Instructor Type: HANDP Filed: 10/31/2022 2:00 PM Note [...] fevers. Neuro: No history of TIA's, stroke, HUMAN INSIGHTS LEAD ADS MARKETING tumor, impaired sensorium, hemiplegia, paraplegia or quadraplegia. No neurological symptoms or problems. Respiratory: No history of current cough or dyspnea, or pneumonia in the past 6 weeks. No history of respiratory/pulmonary symptoms or problems. Cardiovascular: No history of HTN requiring medication, no history of angina, CHF, UT, cardiac surgery or stents. Denies rest pain, gangrene or revascularization/amp utation for PVD. No history of cardiovascular symptoms or problems. GI: No history of GI symptoms or problems. No history of esophageal varices, recent ascites, or ETOH greater than 2 drinks per day. : No history of dysuria, frequency or incontinence,, stones or chronic kidney disease ENGINE ASSEMBLER: Negative for abnormal vaginal bleeding, abnormal vaginal [...] tests Assessment (more content not included)... Normal [facility] Basophil percentageOrdered B y: Dr. Smith on 09-07-2022 Basophil percentage 0.2 AI 0.0-0.9 [facility] Basophil percentage 2.6 AI 0.0-0.9 [facility] Erythrocyte sedimentation ra teOrdered By: Dr. Smith on 09-07-2022 ESR (Bld) [Velocity] 4 mm/h 0-30 [facility] No Panel InformationOrdered By: Dr. Smith on 09-07-2022 Anti-Nuclear Antibody Screen Positive Negative [facility] Centromere B Antibody <0.2 AI 0.0-0.9 [facility] SAFETY ASSISTANT Antibody <0.2 AI 0.0-0.9 [facility] Serum DNA double strand anti body assay (units/volume)Ordered By: Dr. Smith on 09-07-2022 DNA double strand Ab Qn (S) 1 [IU]/mL 0-9 [facility] Comment on above: Negative <5 Equivoca l 5 - 9 Positive >9 Serum Silvia-1 antibody assay (u nits/volume)Ordered By: Dr. Smith on 09-07-2022 Silvia-1 extractable nuclear Ab Qn (S) <0.2 AI 0.0-0.9 [facility] Serum Scl-70 extractable nuc lear antibody assay (units/volume)Ordered By: Dr. Smith on 09-07-2022 SCL-70 extractable nuclear Ab Qn (S) <0.2 AI 0.0-0.9 [facility] Serum Carlson extractable nucl ear antibody detectionOrdered By: Dr. Smith on 09-07-2022 Carlson extractable nuclear Ab Ql (S) <0.2 AI 0.0-0.9 [facility] Serum cyclic citrullinated p eptide IgG antibody assay (units/volume)Ordered By: Dr. Smith on 09-07-2022 Cyclic citrullinated peptide IgG Qn 1 units 0-19 [facility] Comment on above: Negative <20 Weak po sitive 20 - 39 Moderate positive 40 - 59 Strong positive >59Performed at: [facility] [id number] Director: Sukhdev Cullen PhD, Phone: [phone] Serum or plasma C reactive p rotein measurement (mass/volume)Ordered By: Dr. Smith on 09-07-2022 CRP [Mass/Vol] mg/L 0.0-3.0 [facility] Comment on above: C-Reactive Protein ( CRP) provides useful information for thediagnosis, therapy and monitoring of inflammatory processesand associated diseases. For the evaluation of Relative Riskfor Cardiovascular Disease, a High Sensitivity CRP (HSCRP)should be ordered. Serum rheumatoid factor dete ctionOrdered By: Dr. Smith on 09-07-2022 Rheumatoid factor Ql (S) < 10.0 IU/mL <15 [facility] CNOVon 08-18-2022 CNOV Office Visit (ORTHWS ) MANDI VALENTE ([id number]) 1990 F Date Time Provider Department 08/18/22 [...] hip [M70.61] Order(s):MRI HIP WO IVCON RT [3457034] Order #: [id number] FUTURE Prescriptions as of 08/18/2022 - meloxicam (MOBIC) 15 mg tablet Take 15 mg by mouth once daily. - oxyCODONE-acetaminoph en (PERCOCET) 5-325 mg tablet Take 1 tablet b (more content not included)... [facility] COVID-19 virus antigen assay Ordered By: Dr. Ott on 07-13-2022 SARS-CoV-2 (COVID-19) Ag IA.rapid Ql (Resp) [facility] Laboratory - Microbiology an d Antimicrobial susceptibilityon 07-13-2022 SARS-CoV-2 (COVID-19) RNA GUCCI+probe Ql (Unsp spec) Not detected [facility] XR Pelvis and Hip - right AP and Lateral frogon 07-07-2022 IMPRESSION: Mild narrowing both hip joints Custom Home Installer: MALOU Transcribe Date/Time: Jul 07 2022 8:05A Dictated by : MONTANA QUIÑONES DO This examination was interpreted and the report reviewed and electronically signed by: MONTANA QUIÑONES DO on Jul 07 2022 8:06AM EST [facility] * * *Final Report* * * [...] hip: No fractures or dislocations are seen. [facility] Provider, Esther Magallanes [facility] - 07/07/2022 * * *Final Report* * [...] IMPRESSION IMPRESSION: Mild narrowing both hip joints Custom Home Installer: PSCB Transcribe Date/Time: Jul 07 2022 8:05A Dictated by : MONTANA QUIÑONES DO This examination was interpreted and the report reviewed and electronically signed by: MONTANA QUIÑONES DO on Jul 07 2022 8:06AM EST [facility] XR Pelvis and Hip - right AP and Lateral frogOrdered By: Ccf Provider on 07-07-2022 [facility] CNOVon 07-06-2022 CNOV Office Visit (ORMDNA ) MANDI VALENTE ([id number]) 1990 F Date Time Provider Department 07/06/22 1:00 PM CATHRYN MORRELL During your visit today, we recorded the following information about you: Cathryn Morrell DO 07/06/2022 2:47 PM Signed Large Joint Arthro/Inj: R greater trochanteric bursa Informed Consent Consent Obtained: Verbal [place] Protocol A moment to CARE was completed. [...] patient is (more content not included)... Normal [facility] XR HIP 3V PELV+ AP/LAT RTon [...] seen. IMPRESSION: Mild narrowing both hip joints Custom Home Installer: MALOU Transcribe Date/Time: Jul 07 2022 8:05A Dictated by : MONTANA QUIÑONES DO This examination was interpreted and the report reviewed and electronically signed by: MONTANA QUIÑONES DO on Jul 07 2022 8:06AM EST [id number] [facility] XR Pelvis and Hip - right AP and Lateral frogon 07-06-2022 Radiology Study observation (narrative) [facility] US DVT LOWER RTon 02-28-2022 [facility] XR HIP GENERAL 3V PELV/AP/LA T RIGHTon 12-08-2021 [facility] HIV 1 and HIV-2 antibody ass ay with HIV-1 p24 antigen detectionon 10-04-2021 HIV 1+2 Ab+HIV1 p24 Ag IA Ql Non-Reactive Nonreactive [facility] Work Phone: No Panel Informationon 10-04 Hepatitis B Surface Antigen Non-Reactive Nonreactive [facility] Work Phone: Hepatitis C Antibody Non-Reactive Nonreactive [facility] Work Phone: Comment on above: Non Reactive: < 0.8 Equivocal: >/= 0.8 to < 1.0 Reactive: >/= 1.0The CDC recommends that a reactive/equivocal HCV antibody result be followed up by the HCV Nucleic Acid Amplificationtest (248787) Miscellaneous Test See comment [facility] Work Phone: Comment on above: TEST RESULT LIMITSCt , Ng, Trich vag by GUCCI Chlamydia by GUCCI Negative Negative Gonococcus by GUCCI Negative Negative Trich vag by GUCCI Negative Negative ____ TESTING PERFORMED AT [facility]. ORIGINAL REPORT ON FILE IN LAB CONTAINS ADDITIONAL TEST SITE INFORMATION. Serum Treponema species anti body detectionon 10-04-2021 Treponema sp Ab Ql (S) Non-Reactive [facility] Work Phone: Large Joint Arthro/Inj: R gr eater trochanteric bursa [facility] Vital Signs Date Time Vital Sign Value Performing Clinician Facility 03-13-2025 11:18-0400 Body height 157.[address] Cholo Smith DO Work Phone: [facility] 03-09-2025 07:54-0400 Body temperature 98.1 [degF] Dr. Cholo Smith DO Work Phone: [facility] 03-09-2025 07:54-0400 Diastolic blood pressure 76 mm[Hg] Dr. Cholo Smith DO Work Phone: [facility] 03-09-2025 07:54-0400 Heart rate 86 /min Dr. Cholo Smith DO Work Phone: [facility] 03-09-2025 07:54-0400 Respiratory rate 16 /min Dr. Cholo Smith DO Work Phone: [facility] 03-09-2025 07:54-0400 Systolic blood pressure 134 mm[Hg] Dr. Cholo Smith DO Work Phone: [facility] 03-09-2025 02:40-0400 SaO2% (BldA) [Mass fraction] 99 % Dr. Cholo Smith DO Work Phone: [facility] 03-06-2025 16:55-0400 Body height 157.[address] Cholo Smith DO Work Phone: [facility] 03-06-2025 16:55-0400 Body mass index (BMI) [Ratio] 39.9 kg/m2 Dr. Cholo Smith DO Work Phone: [facility] 03-06-2025 16:55-0400 Body weight 98.[address] Cholo Smith DO Work Phone: [facility] 03-06-2025 15:43-0400 Body height 157.[address] Cholo Smith DO Work Phone: [facility] 03-06-2025 15:41-0400 Body mass index (BMI) [Ratio] 39.9 kg/m2 Dr. Cholo Smith DO Work Phone: [facility] 03-06-2025 15:41-0400 Body weight 98.[address] Cholo Smith DO Work Phone: [facility] 03-06-2025 15:41-0400 Diastolic blood pressure 84 mm[Hg] Dr. Cholo Smith DO Work Phone: [facility] 03-06-2025 15:41-0400 Systolic blood pressure 125 mm[Hg] Dr. Cholo Smith DO Work Phone: [facility] 03-05-2025 14:15-0400 Body height 157.[address] Cholo Smith DO Work Phone: [facility] 03-05-2025 14:15-0400 Body mass index (BMI) [Ratio] 40.5 kg/m2 Dr. Cholo Smith DO Work Phone: [facility] 03-05-2025 14:15-0400 Body weight 100.[address] Cholo Smith DO Work Phone: [facility] 03-05-2025 14:15-0400 Diastolic blood pressure 81 mm[Hg] Dr. Cholo Smith DO Work Phone: [facility] 03-05-2025 14:15-0400 Systolic blood pressure 118 mm[Hg] Dr. Cholo Smith DO Work Phone: [facility] 02-28-2025 06:52-0400 Body temperature 97.9 [degF] Dr. Cholo Smith DO Work Phone: [facility] 02-28-2025 06:52-0400 Diastolic blood pressure 76 mm[Hg] Dr. Cholo Smith DO Work Phone: [facility] 02-28-2025 06:52-0400 Heart rate 93 /min Dr. Cholo Smith DO Work Phone: [facility] 02-28-2025 06:52-0400 Respiratory rate 16 /min Dr. Cholo Smith DO Work Phone: [facility] 02-28-2025 06:52-0400 Systolic blood pressure 125 mm[Hg] Dr. Cholo Smith DO Work Phone: [facility] 02-28-2025 06:36-0400 Body height 157.[address] Cholo Smith DO Work Phone: [facility] 02-28-2025 06:36-0400 Body mass index (BMI) [Ratio] 39.9 kg/m2 Dr. Cholo Smith DO Work Phone: [facility] 02-28-2025 06:36-0400 Body weight 99.[address] Cholo Smith DO Work Phone: [facility] 02-27-2025 14:54-0400 Body height 157.[address] Cholo Smith DO Work Phone: [facility] 02-27-2025 14:54-0400 Body mass index (BMI) [Ratio] 40.1 kg/m2 Dr. Cholo Smith DO Work Phone: [facility] 02-27-2025 14:54-0400 Body weight 99.[address] Cholo Smith DO Work Phone: [facility] 02-27-2025 14:54-0400 Diastolic blood pressure 80 mm[Hg] Dr. Cholo Smith DO Work Phone: [facility] 02-27-2025 14:54-0400 Systolic blood pressure 133 mm[Hg] Dr. Cholo Smith DO Work Phone: [facility] 02-18-2025 14:41-0400 Body weight 97.[address] Cholo Smith DO Work Phone: [facility] 02-18-2025 14:41-0400 Diastolic blood pressure 84 mm[Hg] Dr. Cholo Smith DO Work Phone: [facility] 02-18-2025 14:41-0400 Systolic blood pressure 128 mm[Hg] Dr. hColo Smith DO Work Phone: [facility] 02-18-2025 14:28-0400 Body height 157.[address] Cholo Smith DO Work Phone: [facility] 02-14-2025 23:29-0400 Body temperature 98 [degF] Dr. Cholo Smith DO Work Phone: [facility] 02-14-2025 23:29-0400 Diastolic blood pressure 68 mm[Hg] Dr. Cholo Smith DO Work Phone: [facility] 02-14-2025 23:29-0400 Heart rate 70 /min Dr. Cholo Smith DO Work Phone: [facility] 02-14-2025 23:29-0400 Respiratory rate 16 /min Dr. Cholo Smith DO Work Phone: [facility] 02-14-2025 23:29-0400 Systolic blood pressure 119 mm[Hg] Dr. Cholo Smith DO Work Phone: [facility] 02-14-2025 21:49-0400 Body height 157.[address] Cholo Smith DO Work Phone: [facility] 02-14-2025 21:49-0400 Body mass index (BMI) [Ratio] 39.9 kg/m2 Dr. Cholo Smith DO Work Phone: [facility] 02-14-2025 21:49-0400 Body weight 99.[address] Cholo Smith DO Work Phone: [facility] 02-13-2025 16:08-0400 Body height 157.[address] Cholo Smith DO Work Phone: [facility] 02-13-2025 16:08-0400 Body mass index (BMI) [Ratio] 39.9 kg/m2 Dr. Cholo Smith DO Work Phone: [facility] 02-13-2025 16:08-0400 Body weight 99.[address] Cholo Smith DO Work Phone: [facility] 02-13-2025 16:08-0400 Diastolic blood pressure 82 mm[Hg] Dr. Cholo Smith DO Work Phone: [facility] 02-13-2025 16:08-0400 Systolic blood pressure 120 mm[Hg] Dr. Cholo Smith DO Work Phone: [facility] 02-07-2025 14:35-0400 Diastolic blood pressure 67 mm[Hg] Dr. Cholo Smith DO Work Phone: [facility] 02-07-2025 14:35-0400 Heart rate 90 /min Dr. Cholo Smith DO Work Phone: [facility] 02-07-2025 14:35-0400 Systolic blood pressure 121 mm[Hg] Dr. Cholo Smith DO Work Phone: [facility] 02-07-2025 12:21-0400 Body height 157.[address] Cholo Smith DO Work Phone: [facility] 02-07-2025 12:21-0400 Body mass index (BMI) [Ratio] 39.6 kg/m2 Dr. Cholo Smith DO Work Phone: [facility] 02-07-2025 12:21-0400 Body weight 98.[address] Cholo Smith DO Work Phone: [facility] 02-07-2025 12:18-0400 Body temperature 96.7 [degF] Dr. Cholo Smith DO Work Phone: [facility] 02-07-2025 12:18-0400 Respiratory rate 18 /min Dr. Cholo Smith DO Work Phone: [facility] 01-29-2025 09:58-0400 Body height 157.[address] Cholo Smith DO Work Phone: [facility] 01-29-2025 09:57-0400 Body mass index (BMI) [Ratio] 39.7 kg/m2 Dr. Cholo Smith DO Work Phone: [facility] 01-29-2025 09:57-0400 Body weight 98.[address] Cholo Smith DO Work Phone: [facility] 01-29-2025 09:57-0400 Diastolic blood pressure 78 mm[Hg] Dr. Cholo Smith DO Work Phone: [facility] 01-29-2025 09:57-0400 Systolic blood pressure 129 mm[Hg] Dr. Cholo Smith DO Work Phone: [facility] 01-13-2025 10:45-0400 Body height 157.[address] Cholo Smith DO Work Phone: [facility] 01-13-2025 10:45-0400 Body mass index (BMI) [Ratio] 39.4 kg/m2 Dr. Cholo Smith DO Work Phone: [facility] 01-13-2025 10:45-0400 Body weight 97.[address] Cholo Smith DO Work Phone: [facility] 01-13-2025 10:45-0400 Diastolic blood pressure 87 mm[Hg] Dr. Cholo Smith DO Work Phone: [facility] 01-13-2025 10:45-0400 Systolic blood pressure 126 mm[Hg] Dr. Cholo Smith DO Work Phone: [facility] 01-03-2025 15:03-0400 Body height 157.[address] Cholo Smith DO Work Phone: [facility] 01-03-2025 15:03-0400 Body mass index (BMI) [Ratio] 38.6 kg/m2 Dr. Cholo Smith DO Work Phone: [facility] 01-03-2025 15:03-0400 Body weight 95.[address] Cholo Smith DO Work Phone: [facility] 01-03-2025 15:03-0400 Diastolic blood pressure 82 mm[Hg] Dr. Cholo Smith DO Work Phone: [facility] 01-03-2025 15:03-0400 Systolic blood pressure 138 mm[Hg] Dr. Cholo Smith DO Work Phone: [facility] 12-04-2024 14:55-0400 Body height 157.[address] Cholo Smith DO Work Phone: [facility] 12-04-2024 14:55-0400 Body mass index (BMI) [Ratio] 38.5 kg/m2 Dr. Cholo Smith DO Work Phone: [facility] 12-04-2024 14:55-0400 Body weight 95.[address] Cholo Smith DO Work Phone: [facility] 12-04-2024 14:55-0400 Diastolic blood pressure 77 mm[Hg] Dr. Cholo Smith DO Work Phone: [facility] 12-04-2024 14:55-0400 Systolic blood pressure 130 mm[Hg] Dr. Cholo Smith DO Work Phone: [facility] 11-07-2024 09:36-0400 Body mass index (BMI) [Ratio] 37.5 kg/m2 Dr. Cholo Smith DO Work Phone: [facility] 11-07-2024 09:36-0400 Body weight 93.[address] Cholo Smith DO Work Phone: [facility] 11-07-2024 09:36-0400 Diastolic blood pressure 77 mm[Hg] Dr. Cholo Smith DO Work Phone: [facility] 11-07-2024 09:36-0400 Systolic blood pressure 117 mm[Hg] Dr. Cholo Smith DO Work Phone: [facility] 10-15-2024 12:47-0400 Body height 157.[address] Cholo Smith DO Work Phone: [facility] 10-15-2024 12:47-0400 Body mass index (BMI) [Ratio] 36.6 kg/m2 Dr. Cholo Smith DO Work Phone: [facility] 10-15-2024 12:47-0400 Body weight 90.[address] Cholo Smith DO Work Phone: [facility] 10-15-2024 12:47-0400 Diastolic blood pressure 86 mm[Hg] Dr. Cholo Smith DO Work Phone: [facility] 10-15-2024 12:47-0400 Systolic blood pressure 136 mm[Hg] Dr. Cholo Smith DO Work Phone: [facility] 10-12-2024 00:51-0400 Body temperature 98.5 [degF] Dr. Cholo Smith DO Work Phone: [facility] 10-12-2024 00:51-0400 Diastolic blood pressure 72 mm[Hg] Dr. Cholo Smith DO Work Phone: [facility] 10-12-2024 00:51-0400 Heart rate 85 /min Dr. Cholo Smith DO Work Phone: [facility] 10-12-2024 00:51-0400 Respiratory rate 18 /min Dr. Cholo Smith DO Work Phone: [facility] 10-12-2024 00:51-0400 SaO2% (BldA) [Mass fraction] 99 % Dr. Cholo Smith DO Work Phone: [facility] 10-12-2024 00:51-0400 Systolic blood pressure 132 mm[Hg] Dr. Cholo Smith DO Work Phone: [facility] 10-11-2024 21:50-0400 Body mass index (BMI) [Ratio] 37.6 kg/m2 Dr. Cholo Smith DO Work Phone: [facility] 10-11-2024 21:50-0400 Body weight 93.[address] Cholo Smith DO Work Phone: [facility] 10-07-2024 13:55-0400 Body mass index (BMI) [Ratio] 36.6 kg/m2 Dr. Cholo Smith DO Work Phone: [facility] 10-07-2024 13:55-0400 Body weight 90.[address] Cholo Smith DO Work Phone: [facility] 10-07-2024 13:55-0400 Diastolic blood pressure 85 mm[Hg] Dr. Cholo Smith DO Work Phone: [facility] 10-07-2024 13:55-0400 Systolic blood pressure 138 mm[Hg] Dr. Cholo Smith DO Work Phone: [facility] 09-10-2024 14:53-0500 Body height 157.[address] Cholo Smith DO Work Phone: [facility] 09-10-2024 14:53-0500 Body mass index (BMI) [Ratio] 35.9 kg/m2 Dr. Cholo Smith DO Work Phone: [facility] 09-10-2024 14:53-0500 Body weight 88.[address] Cholo Smith DO Work Phone: [facility] 09-10-2024 14:53-0500 Diastolic blood pressure 85 mm[Hg] Dr. Cholo Smith DO Work Phone: [facility] 09-10-2024 14:53-0500 Systolic blood pressure 136 mm[Hg] Dr. Cholo Smith DO Work Phone: [facility] 08-26-2024 12:56-0500 Body mass index (BMI) [Ratio] 35.5 kg/m2 Dr. Cholo Smith DO Work Phone: [facility] 08-26-2024 12:56-0500 Body weight 88.[address] Cholo Smith DO Work Phone: [facility] 08-26-2024 12:56-0500 Diastolic blood pressure 89 mm[Hg] Dr. Cholo Smith DO Work Phone: [facility] 08-26-2024 12:56-0500 Systolic blood pressure 137 mm[Hg] Dr. Cholo Smith DO Work Phone: [facility] 08-13-2024 15:09-0500 Body mass index (BMI) [Ratio] 35.4 kg/m2 Dr. Cholo Smith DO Work Phone: [facility] 08-13-2024 15:09-0500 Body weight 87.[address] Cholo Smith DO Work Phone: [facility] 08-13-2024 15:09-0500 Diastolic blood pressure 84 mm[Hg] Dr. Cholo Smith DO Work Phone: [facility] 08-13-2024 15:09-0500 Systolic blood pressure 139 mm[Hg] Dr. Cholo Smith DO Work Phone: [facility] 06-26-2024 12:56-0500 Body mass index (BMI) [Ratio] 34.9 kg/m2 Dr. Cholo Smith DO Work Phone: [facility] 06-26-2024 12:56-0500 Body weight 86.[address] Cholo Smith DO Work Phone: [facility] 06-26-2024 12:56-0500 Diastolic blood pressure 90 mm[Hg] Dr. Cholo Smith DO Work Phone: [facility] 06-26-2024 12:56-0500 Systolic blood pressure 147 mm[Hg] Dr. Cholo Smith DO Work Phone: [facility] 06-24-2024 09:28-0500 Body weight 87.[address] Cholo Smith DO Work Phone: [facility] 06-24-2024 09:28-0500 Diastolic blood pressure 89 mm[Hg] Dr. Cholo Smith DO Work Phone: [facility] 06-24-2024 09:28-0500 Heart rate 67 /min Dr. Cholo Smith DO Work Phone: [facility] 06-24-2024 09:28-0500 Respiratory rate 16 /min Dr. Cholo Smith DO Work Phone: [facility] 06-24-2024 09:28-0500 SaO2% (BldA) [Mass fraction] 98 % Dr. Cholo Smith DO Work Phone: [facility] 06-24-2024 09:28-0500 Systolic blood pressure 157 mm[Hg] Dr. Cholo Smith DO Work Phone: [facility] 06-11-2024 13:55-0500 Body temperature 97.5 [degF] Dr. Cholo Smith DO Work Phone: [facility] 06-11-2024 13:55-0500 Diastolic blood pressure 94 mm[Hg] Dr. Cholo Smith DO Work Phone: [facility] 06-11-2024 13:55-0500 Heart rate 78 /min Dr. Cholo Smith DO Work Phone: [facility] 06-11-2024 13:55-0500 Respiratory rate 16 /min Dr. Cholo Smith DO Work Phone: [facility] 06-11-2024 13:55-0500 SaO2% (BldA) [Mass fraction] 97 % Dr. Cholo mSith DO Work Phone: [facility] 06-11-2024 13:55-0500 Systolic blood pressure 138 mm[Hg] Dr. Cholo Smith DO Work Phone: [facility] 06-11-2024 11:18-0500 Body mass index (BMI) [Ratio] 34.7 kg/m2 Dr. Cholo Smith DO Work Phone: [facility] 06-11-2024 11:18-0500 Body weight [address] Cholo Smith DO Work Phone: [facility] 10-20-2023 14:52-0400 Body height 157.[address] Cholo Smith Work Phone: [facility] 10-20-2023 14:52-0400 Diastolic blood pressure 80 mm[Hg] Dr. Cholo Smtih Work Phone: [facility] 10-20-2023 14:52-0400 Systolic blood pressure 139 mm[Hg] Dr. Cholo Smith Work Phone: [facility] 10-20-2023 14:47-0400 Body mass index (BMI) [Ratio] 34.7 kg/m2 Dr. Cholo Smith Work Phone: [facility] 10-20-2023 14:47-0400 Body weight 86.[address] Cholo Smith Work Phone: [facility] 09-19-2023 10:01-0400 Body mass index (BMI) [Ratio] 33.3 kg/m2 Dr. Cholo Smith Work Phone: [facility] 09-19-2023 10:01-0400 Body weight 82.[address] Cholo Smith Work Phone: [facility] 09-19-2023 10:01-0400 Diastolic blood pressure 80 mm[Hg] Dr. Cholo Smith Work Phone: [facility] 09-19-2023 10:01-0400 Systolic blood pressure 141 mm[Hg] Dr. Cholo Smith Work Phone: [facility] 08-21-2023 14:43-0500 Body height 157.[address] Cholo Smith Work Phone: [facility] 08-21-2023 14:43-0500 Body mass index (BMI) [Ratio] 31.8 kg/m2 Dr. Cholo Smith Work Phone: [facility] 08-21-2023 14:43-0500 Body weight 78.[address] Cholo Smith Work Phone: [facility] 08-21-2023 14:43-0500 Diastolic blood pressure 84 mm[Hg] Dr. Cholo Smith Work Phone: [facility] 08-21-2023 14:43-0500 Systolic blood pressure 126 mm[Hg] Dr. Cholo Smith Work Phone: [facility] 05-30-2023 09:47-0500 Diastolic blood pressure 86 mm[Hg] Dr. Cholo Smith Work Phone: [facility] 05-30-2023 09:47-0500 Systolic blood pressure 138 mm[Hg] Dr. Cholo Smith Work Phone: [facility] 05-30-2023 09:34-0500 Body height 157.[address] Cholo Smith Work Phone: [facility] 05-30-2023 09:34-0500 Body mass index (BMI) [Ratio] 29.2 kg/m2 Dr. Cholo Smith Work Phone: [facility] 05-30-2023 09:34-0500 Body temperature 98.2 [degF] Dr. Cholo Smith Work Phone: [facility] 05-30-2023 09:34-0500 Body weight 72.[address] Cholo Smith Work Phone: [facility] 05-30-2023 09:34-0500 Heart rate 112 /min Dr. Cholo Smith Work Phone: [facility] 05-30-2023 09:34-0500 Respiratory rate 16 /min Dr. Cholo Smith Work Phone: [facility] 05-30-2023 09:34-0500 SaO2% (BldA) [Mass fraction] 98 % Dr. Cholo Smith Work Phone: [facility] 02-18-2023 09:46-0400 Body height 157.[address] Cholo Smith Work Phone: [facility] 02-18-2023 09:46-0400 Body mass index (BMI) [Ratio] 27.4 kg/m2 Dr. Cholo Smith Work Phone: [facility] 02-18-2023 09:46-0400 Body temperature 98.6 [degF] Dr. Cholo Smith Work Phone: [facility] 02-18-2023 09:46-0400 Body weight 68.[address] Cholo Smith Work Phone: [facility] 02-18-2023 09:46-0400 Diastolic blood pressure 85 mm[Hg] Dr. Cholo Smith Work Phone: [facility] 02-18-2023 09:46-0400 Heart rate 70 /min Dr. Cholo Smith Work Phone: [facility] 02-18-2023 09:46-0400 Respiratory rate 16 /min Dr. Cholo Smith Work Phone: [facility] 02-18-2023 09:46-0400 SaO2% (BldA) [Mass fraction] 97 % Dr. Cholo Smith Work Phone: [facility] 02-18-2023 09:46-0400 Systolic blood pressure 120 mm[Hg] Dr. Cholo Smith Work Phone: [facility] 12-08-2022 11:00-0400 Body temperature 98.6 [degF] Dr. Cholo Smith Work Phone: [facility] 12-08-2022 11:00-0400 Diastolic blood pressure 91 mm[Hg] Dr. Cholo Smith Work Phone: [facility] 12-08-2022 11:00-0400 Heart rate 69 /min Dr. Cholo Smith Work Phone: [facility] 12-08-2022 11:00-0400 Respiratory rate 16 /min Dr. Cholo Smith Work Phone: [facility] 12-08-2022 11:00-0400 SaO2% (BldA) [Mass fraction] 100 % Dr. Cholo Smith Work Phone: [facility] 12-08-2022 11:00-0400 Systolic blood pressure 132 mm[Hg] Dr. Cholo Smith Work Phone: [facility] 12-08-2022 08:41-0400 Body height 157.[address] Cholo Smith Work Phone: [facility] 12-08-2022 08:41-0400 Body mass index (BMI) [Ratio] 29.5 kg/m2 Dr. Cholo Smith Work Phone: [facility] 12-08-2022 08:41-0400 Body weight 73.[address] Cholo Smith Work Phone: [facility] 10-28-2022 11:11-0400 Body height 157.5 cm [facility] 1 Work Phone: [facility] 10-28-2022 11:11-0400 Body temperature 97.81 [degF] Pacc 1 Work Phone: [facility] 10-28-2022 11:11-0400 Body weight 78.47 kg Pacc 1 Work Phone: [facility] 10-28-2022 11:11-0400 Diastolic blood pressure 84 mm[Hg] Pacc 1 Work Phone: [facility] 10-28-2022 11:11-0400 Heart rate 79 /min Pacc 1 Work Phone: [facility] 10-28-2022 11:11-0400 Respiratory rate 16 /min Pacc 1 Work Phone: [facility] 10-28-2022 11:11-0400 SaO2% (BldA) [Mass fraction] 99 % Pacc 1 Work Phone: [facility] 10-28-2022 11:11-0400 Systolic blood pressure 138 mm[Hg] Pacc 1 Work Phone: [facility] 10-08-2022 12:52-0400 Body temperature 97.3 [degF] Dr. Cholo Smith Work Phone: [facility] 10-08-2022 12:52-0400 Diastolic blood pressure 68 mm[Hg] Dr. Cholo Smith Work Phone: [facility] 10-08-2022 12:52-0400 Heart rate 97 /min Dr. Cholo Smith Work Phone: [facility] 10-08-2022 12:52-0400 Respiratory rate 14 /min Dr. Cholo Smith Work Phone: [facility] 10-08-2022 12:52-0400 SaO2% (BldA) [Mass fraction] 98 % Dr. Cholo Smith Work Phone: [facility] 10-08-2022 12:52-0400 Systolic blood pressure 110 mm[Hg] Dr. Cholo Smith Work Phone: [facility] 09-01-2021 11:13-0500 Body height 157.[address] Cholo Smith Work Phone: [facility] Encounters Encounter Date Encounter Type Care Provider Facility Start: 05-20-2025 ambulatory Reina Gaona cility:[facility] Start: 05-12-2025 ambulatory Elijah Friend Facility :[facility] Start: 05-05-2025 ambulatory Elijah Friend Facility :[facility] Start: 05-03-2025 ambulatory Elijah Friend Facility :[facility] Start: 05-01-2025 ambulatory Reina Park Stark cility:[facility] Start: 04-15-2025 End: 04-15-2025 Elijahann-marie Shafer DO [facility] Work Phone: Start: 04-15-2025 End: 04-15-[address] Cholo Smith DO Work Phone: -[facility] Start: 04-12-2025 ambulatory CHOLO SMITH [facility] Start: 03-13-2025 End: 03-13-[address] [facility] Work Phone: Start: 03-13-2025 End: 03-13-[address] Cholo Smith DO Work Phone: -[facility] Start: 03-12-2025 ambulatory Reina Gaona cility:[facility] Start: 03-09-2025 Linda Hammond [facility] Start: 03-08-2025 Linda Hammond [facility] Start: 03-06-2025 Dr. Piedad Moreno MD -[facility] Start: 03-06-2025 End: 03-09-2025 Evaluation and management of inpatient Dr. Cholo Smith DO Work Phone: -[facility] Start: 03-06-2025 End: 03-06-[address] Piedad Moreno MD -[facility] [place] Work Phone: Start: 03-06-2025 End: 03-09-2025 Dr. Piedad Moreno MD -[facility] Work Phone: Start: 03-06-2025 End: 03-06-[address] Cholo Smith DO Work Phone: -[facility] Start: 03-06-2025 End: 03-06-2025 ambulatory CHOLO SMITH [facility] Start: 03-05-2025 End: 03-05-[address] Reina Rashid DO -[facility] Work Phone: Start: 03-05-2025 End: 03-05-2025 Dr. Reina Rashid DO -[facility] Work Phone: Start: 03-05-2025 End: 03-05-[address] Cholo Smith DO Work Phone: [facility] Start: 02-28-2025 ambulatory Piedad yuan:[facility] Start: 02-28-2025 Non-patient / Non-visit Dr. Piedad Moreno MD -[facility] Start: 02-28-2025 Dr. Piedad Moreno MD -[facility] Start: 02-28-2025 End: 02-28-[address] Cholo Smith DO Work Phone: -[facility] Start: 02-28-2025 End: 02-28-[address] Piedad Moreno MD [facility] Work Phone: Start: 02-28-2025 End: 02-28-2025 Dr. Piedad Moreno MD -[facility] Work Phone: Start: 02-27-2025 End: 02-27-[address] Cholo Smith DO Work Phone: -Laboratory Specimen Start: 02-27-2025 End: 02-27-[address] Piedad Moreno MD -[facility] Specimen Work Phone: Start: 02-27-2025 End: 02-27-2025 Dr. Piedad Moreno MD -[facility] Specimen Work Phone: Start: 02-27-2025 End: 02-27-[address] Piedad Moreno MD -[facility] Work Phone: Start: 02-27-2025 End: 02-27-2025 Dr. Piedad Moreno MD -[facility] Work Phone: Start: 02-27-2025 End: 02-27-[address] Cholo Smith DO Work Phone: -[facility] Start: 02-27-2025 End: 02-27-2025 ambulatory CHOLO SMITH [facility] Start: 02-27-2025 End: 02-27-2025 ambulatory Piedad Moreno Facility:[facility] Start: 02-20-2025 End: 02-20-2025 ambulatory [facility] Start: 02-18-2025 End: 02-18-[address] Cholo Smith DO Work Phone: -Laboratory Specimen Start: 02-18-2025 End: 02-18-[address] Piedad Moreno MD -[facility] Spec[facility] Work Phone: Start: 02-18-2025 End: 02-18-2025 Dr. Piedad Moreno MD -[facility] Specimen Work Phone: Start: 02-18-2025 End: 02-18-[address] Piedad Moreno MD -[facility] Work Phone: Start: 02-18-2025 End: 02-18-2025 Dr. Piedad Moreno MD -[facility] Work Phone: Start: 02-18-2025 End: 02-18-[address] Cholo Smith DO Work Phone: -[facility] [place] Start: 02-18-2025 End: 02-18-2025 ambulatory Piedad Josh Facility:[facility] Start: 02-14-2025 ambulatory Suyapa Godinez Facility :[facility] Start: 02-14-2025 Non-patient / Non-visit Suyapa Godinez [facility] Start: 02-14-2025 Suyapa Godinez [facility] Start: 02-14-2025 End: 02-14-[address] Cholo Smith DO Work Phone: -[facility] Start: 02-14-2025 End: 02-14-2025 Patient encounter procedure Suyapa Godinez [facility] Work Phone: Start: 02-14-2025 End: 02-14-2025 Suyapa Godinez [facility] Work Phone: Start: 02-13-2025 End: 02-13-[address] Reina Rashid DO -[facility] [place] Work Phone: Start: 02-13-2025 End: 02-13-2025 Dr. Riena Rashid DO -[facility] Work Phone: Start: 02-13-2025 End: 02-13-[address] Cholo Smith DO Work Phone: -[facility] [place] Start: 02-13-2025 End: 02-13-2025 ambulatory SRUTHI CENTENO [facility] Start: 02-07-2025 ambulatory Linda Garza y:[facility] Start: 02-07-2025 Non-patient / Non-visit Linda Hammond [facility] Start: 02-07-2025 Linda Hammond [facility] Start: 02-07-2025 End: 02-07-[address] Cholo Smith DO Work Phone: -[facility] Start: 02-07-2025 End: 02-07-2025 Patient encounter procedure Linda Hammond CNM -[facility] Work Phone: Start: 02-07-2025 End: 02-07-2025 Linda Hammond CNM -[facility] Work Phone: Start: 02-05-2025 End: 02-05-[address] Cholo Smith DO Work Phone: -[facility] [place] [facility] [place] Start: 02-05-2025 End: 02-05-2025 Patient encounter procedure Danya Simpson [employer]C -[facility] [place] [facility] [place] Start: 02-05-2025 End: 02-05-2025 Danya Simpson LEAD [employer] SAL[employer] ASSOCIATE-C -[facility] [place] [facility] Start: 02-05-2025 End: 02-05-2025 ambulatory Danya Simpson [employer] Facility:[facility] Start: 01-30-2025 End: 01-30-2025 ambulatory [facility]H [facility] Start: 01-29-2025 End: 01-29-[address] Reina Rashid DO -[facility] Work Phone: Start: 01-29-2025 End: 01-29-2025 Dr. Reina Rashid DO -[facility] Work Phone: Start: 01-29-2025 End: 01-29-[address] Cholo Smith DO Work Phone: -[facility] Start: 01-14-2025 End: 01-14-[address] Cholo Smith DO Work Phone: -Laboratory Start: 01-14-2025 End: 01-14-2025 Patient encounter procedure Suyapa Godinez CNM -Laboratory Work Phone: Start: 01-14-2025 End: 01-14-2025 Suyapa Godinez CN -Laboratory Work Phone: Start: 01-13-2025 End: 01-13-2025 Patient encounter procedure Suyapa Godinez CN -[facility] Work Phone: Start: 01-13-2025 End: 01-13-2025 Suyapa Godinez [facility] Work Phone: Start: 01-13-2025 End: 01-14-[address] Cholo Smith DO Work Phone: -[facility] Start: 01-03-2025 End: 01-03-[address] Reina Rashid DO -[facility] Work Phone: Start: 01-03-2025 End: 01-03-2025 Dr. Reina Rashid DO -[facility] Work Phone: Start: 01-03-2025 End: 01-03-[address] Cholo Smith DO Work Phone: -[facility] Start: 12-30-2024 End: 12-30-2024 ambulatory AMINA ESTRADA [email or web address] Start: 12-26-2024 End: 12-26-[address] Cholo Smith DO Work Phone: -[facility] Start: 12-26-2024 End: 12-26-[address] Reina Rashid DO -[facility] Start: 12-26-2024 End: 12-26-2024 Dr. Reina Rashid DO -[facility] Start: 12-26-2024 End: 12-26-2024 ambulatory Reina Rashid Facility:[facility] Start: 12-04-2024 End: 12-04-[address] Reina Rashid DO -[facility] Work Phone: Start: 12-04-2024 End: 12-04-2024 Dr. Reina Rashid DO -[facility] Work Phone: Start: 12-04-2024 End: 12-04-[address] Cholo Smith DO Work Phone: [facility] Work Phone: Start: 12-03-2024 End: 12-03-2024 ambulatory PURA KENDALL [facility] Start: 11-18-2024 End: 11-18-2024 ambulatory KONRAD MAS [facility] Start: 11-07-2024 End: 11-07-[address] Piedad Moreno MD -[facility] Work Phone: Start: 11-07-2024 End: 11-07-2024 ambulatory [facility] Start: 10-31-2024 End: 10-31-2024 ambulatory BRIANNE MULLINS [facility] Start: 10-15-2024 End: 10-15-[address] Cholo Smith DO Work Phone: [facility] Work Phone: Start: 10-15-2024 End: 10-15-[address] Piedad Moreno MD -Laboratory, Specimen Work Phone: Start: 10-15-2024 End: 10-15-[address] Piedad Moreno MD -[facility] Work Phone: Start: 10-15-2024 End: 10-15-2024 ambulatory [facility] Start: 10-15-2024 End: 10-15-2024 ambulatory [facility] Facility:[facility] Start: 10-11-2024 End: 10-12-2024 Emergency department patient visit Dr. Mary Jane Wade DO -Emergency Department Work Phone: Start: 10-07-2024 End: 10-07-2024 Patient encounter procedure Suyapa Goidnez CNM -[facility] Work Phone: Start: 10-07-2024 End: 10-07-2024 ambulatory Suyapa Godinez Facility:[facility] Start: 09-10-2024 End: 09-10-[address] Reina Rashid DO -[facility] Work Phone: Start: 09-10-2024 End: 09-10-[address] Cholo Smith DO Work Phone: [facility] Work Phone: Start: 09-10-2024 End: 09-10-2024 ambulatory Reina Rashid Facility:[facility] Start: 08-26-2024 End: 08-26-2024 Patient encounter procedure Suyapa Godinez [facility] Work Phone: Start: 08-26-2024 End: 08-26-2024 ambulatory [facility] Start: 08-19-2024 Encounter for other preprocedural examination Elijahsander Shafer [facility] Start: 08-13-2024 End: 08-13-[address] Reina Rashid DO -Laboratory, Specimen Work Phone: Start: 08-13-2024 End: 08-13-[address] Reina Rashid DO -[facility] Work Phone: Start: 08-13-2024 End: 08-13-2024 ambulatory Reina Rashid [facility] Start: 08-13-2024 End: 08-13-2024 ambulatory Reina Rashid Facility:[facility] Start: 08-05-2024 ambulatory [facility] Facility: [facility] Start: 07-08-2024 End: 07-08-2024 Patient encounter procedure Elijah Shafer DO [facility] Work Phone: Start: 07-08-2024 End: 07-08-2024 ambulatory Cholo Pearsonman Facility:[facility] Start: 06-26-2024 End: 06-26-2024 Patient encounter procedure Ivett HOFF -Laboratory, Specimen Work Phone: Start: 06-26-2024 End: 06-26-2024 Patient encounter procedure Ivett HOFF -[facility] [place] Work Phone: Start: 06-26-2024 End: 06-26-2024 ambulatory Cholo BrysonSarah [facility] Start: 06-26-2024 End: 06-26-2024 ambulatory [facility] Facility:[facility] Start: 06-24-2024 End: 06-24-2024 Patient encounter procedure Reina HOFF -[facility] Work Phone: Start: 06-24-2024 End: 06-24-2024 ambulatory Cholo Smith Facility:[facility] Start: 06-11-2024 ambulatory Cholo Pearsonman Facility: [facility] Start: 06-11-2024 Non-patient / Non-visit Elijah Shafer DO -[facility] Start: 06-11-2024 End: 06-11-2024 Admission to same day surgery center Elijah Shafer DO -Endoscopy Work Phone: Start: 06-11-2024 End: 06-11-2024 ambulatory Cholo BrysonSarah Facility:[facility] Start: 05-27-[address] Keiry Rashid DO -Physical Therapy Work Phone: Start: 05-27-2024 End: 05-27-2024 ambulatory Reina Rashid Facility:[facility] Start: 05-10-2024 End: 05-10-2024 ambulatory Reina Rashid Facility:[facility] Start: 05-10-2024 End: 05-10-2024 ambulatory Lisseth Jackson Facility:[facility] Start: 10-20-2023 End: 10-20-[address] Cholo Smith Work Phone: [facility] Work Phone: Start: 10-20-2023 End: 10-20-[address] Cholo Smith Work Phone: [facility], Specimen Work Phone: Start: 10-20-2023 End: 10-20-[address] Cholo Smith Work Phone: [facility] Work Phone: Start: 09-19-2023 End: 09-19-[address] Cholo Smith Work Phone: [facility] Work Phone: Start: 09-12-2023 End: 09-12-[address] Cholo Smith Work Phone: [facility] Work Phone: Start: 09-12-2023 End: 09-12-[address] Cholo Smith Work Phone: [facility] [place] Work Phone: Start: 08-21-2023 End: 08-21-[address] Cholo Smith Work Phone: [facility] Work Phone: Start: 08-21-2023 End: 08-21-[address] Cholo Smith Work Phone: [facility] Spec[facility] Work Phone: Start: 08-21-2023 End: 08-21-[address] Cholo Smith Work Phone: [facility] Work Phone: Start: 05-30-2023 End: 05-30-[address] Cholo Smith Work Phone: [facility] Work Phone: Start: 05-26-2023 End: 05-26-[address] Cholo Smith Work Phone: [facility] Work Phone: Start: 05-26-2023 End: 05-26-[address] [facility] Start: 05-12-2023 End: 05-12-2023 ambulatory CHOLO SMITH Facility:[facility] Start: 05-12-2023 End: 05-12-2023 Patient encounter procedure Kelly Calabrese PA-C Work Phone: Orthopaedics Comment on above: Strain of calf muscl e, left, initial encounter (Primary Dx) Start: 05-12-2023 End: 05-12-2023 Subsequent hospital visit by physician [employer] Work Phone: Radiology Comment on above: Pain of left calf [M 79.662] Start: 03-22-2023 End: 03-22-[address] Cholo Smith Work Phone: [facility] Work Phone: Start: 03-22-2023 End: 03-22-[address] [facility] Start: 03-03-2023 End: 03-03-[address] [facility] Start: 03-01-2023 End: 03-01-2023 ambulatory CHOLO SMITH Facility:[facility] Start: 03-01-2023 End: 03-01-2023 Subsequent hospital visit by physician [employer] Work Phone: Radiology Comment on above: Pain in left hip [M2 5.552] Start: 02-18-2023 End: 02-18-[address] Cholo Smith Work Phone: [facility] Work Phone: Start: 12-28-2022 End: 12-28-2022 ambulatory PIERRE HICKS Facility:[facility] Start: 12-28-2022 End: 12-28-2022 Patient encounter procedure Cathryn Morrell DO Work Phone: Orthopaedics Comment on above: S/P orthopedic surge ry, follow-up exam (Primary Dx); Trochanteric bursitis of right hip; Iliotibial band syndrome of right side Start: 12-08-2022 End: 12-08-2022 Emergency department patient visit Dr. Cholo Smith Work Phone: [facility] Start: 11-21-2022 End: 11-21-2022 [facility] Start: 11-09-2022 Telephone encounter Cathryn Morrell DO Work Phone: Orthopaedics Comment on above: Appointment Start: 11-08-2022 End: 11-08-2022 ambulatory J LUIS NINO (HISTORIC) ZEWAIL Facility:[facility] Start: 11-02-2022 End: 11-02-2022 ambulatory J LUIS NINO (HISTORIC) ZEWAIL Facility:[facility] Start: 11-02-2022 End: 11-02-2022 Patient encounter procedure Cathryn Morrell DO Work Phone: Orthopaedics Comment on above: Trochanteric bursiti s of right hip (Primary Dx); Iliotibial band syndrome of right side Start: 10-28-2022 End: 10-29-2022 ambulatory CATHRYN MORRELL Facility:[facility] Start: 10-28-2022 Encounter for other preprocedural examination J LUIS JACOBSON [facility] Start: 10-28-2022 End: 10-28-2022 Admission to [facility] Pac [place] 1 Work Phone: [facility] Start: 10-28-2022 End: 10-28-2022 ambulatory Pacc [place] 1 Work Phone: Pre Anesthesia Comment on above: Preop examination (P rimary Dx) Start: 10-28-2022 End: 10-28-2022 Preprocedural examination done [place] [id number] Work Phone: Pre Anesthesia Start: 10-08-2022 End: 10-08-[address] Cholo Smith Work Phone: [facility] Start: 09-26-2022 Orders Only Viancaleon Morrell DO Work Phone: Orthopaedics Comment on above: Trochanteric bursiti s of right hip (Primary Dx); Iliotibial band syndrome of right side Start: 09-16-2022 End: 09-16-2022 ambulatory J LUIS NINO (HISTORIC) ZEWAIL Facility:[facility] Start: 09-12-2022 ambulatory Cathryn Morrell DO Work Phone: [facility] Start: 09-12-2022 Follow-up encounter ViancaYusra Morrell DO Work Phone: Orthopaedics Comment on above: MRI follow up Start: 09-07-2022 End: 09-07-[address] Cholo Smith Work Phone: [facility] Work Phone: Start: 09-07-2022 End: 09-07-[address] Cholo Smith Work Phone: [facility] Start: 09-02-2022 End: 09-02-[address] Cholo Smith Work Phone: [facility] Work Phone: Start: 09-02-2022 End: 09-02-[address] Cholo Smith Work Phone: [facility] Start: 09-01-2022 End: 09-01-[address] Cholo Smith Work Phone: [facility] Work Phone: Start: 09-01-2022 End: 09-01-[address] Cholo Smith Work Phone: [facility] Start: 09-01-[address] Cholo Smith Work Phone: [facility] Start: 08-18-2022 End: 08-18-2022 [facility] Start: 08-18-2022 End: 08-18-2022 Patient encounter procedure Cathryn Morrell DO Work Phone: Orthopaedics Comment on above: Trochanteric bursiti s of right hip (Primary Dx) Start: 07-20-2022 End: 07-20-[address] Cholo Smith Work Phone: [facility] Virtual Visit Start: 07-18-2022 End: 07-18-[address] Cholo Smith Work Phone: [facility] Start: 07-13-2022 End: 07-13-[address] Cholo Smith Work Phone: [facility] Start: 07-13-[address] Cholo disla Work Phone: [facility] Start: 07-06-2022 End: 07-06-2022 ambulatory [facility] Facility:[facility] Start: 07-06-2022 End: 07-06-2022 Patient encounter procedure Viancaleon Morrell DO Work Phone: Orthopaedics Comment [...] Johnson PA-C Work Phone: [facility] Comment on above: Appointment Start: 02-28-2022 End: 02-28-2022 [facility] Work Phone: Radiology Comment [...] encounter procedure Dr. Cholo Smith Work Phone: [facility] Start: 12-15-2021 Telephone encounter Cathryn Morrell [...] / Non-visit Dr. Cholo Smith Work Phone: [facility] Start: 11-03-2021 End: 11-03-[address] Cholo Smith Work Phone: [facility] Start: 10-04-2021 End: 10-04-[address] Cholo Smith Work Phone: [facility], [place] public [facility] clinical nurse specialist Off Start: 09-14-2021 End: 09-14-[address] Cholo Smith Work Phone: [facility] Procedures Date Procedure Procedure Detail Performing Clinician Start: 03-06-2025 Blood count smear mc rscp w/mnl difrntl wbc count Dr. Cholo Smith DO Work Phone: Start: 03-06-2025 Mean corpuscular hem oglobin concentration determination Dr. Cholo Smith DO Work Phone: Start: 03-06-[address] Hoang Smith DO Work Phone: Start: 03-06-2025 Nucleated red blood cell count procedure Dr. Cholo Smith DO Work Phone: Start: 03-06-2025 Platelet mean volume determination Dr. Cholo Smith DO Work Phone: Start: 03-06-2025 Serologic test for syphilis Dr. Cholo Smith DO Work Phone: Start: 02-28-2025 Blood count smear mc rscp w/mnl difrntl wbc count Dr. Cholo mSith DO Work Phone: Start: 02-28-2025 Mean corpuscular hem oglobin concentration determination Dr. Cholo Smith DO Work Phone: Start: 02-28-[address] Hoang hanna Sarah DO Work Phone: Start: 02-28-2025 Nucleated red blood cell count procedure Dr. Cholo Smith DO Work Phone: Start: 02-28-2025 Platelet mean volume determination Dr. Cholo Smith DO Work Phone: Start: 02-27-2025 Beta-hemolytic Strep tococcus culture Dr. Cholo Smith DO Work Phone: Start: 02-14-2025 Urine microscopy: red cells Dr. Cholo Smith DO Work Phone: Start: 02-14-2025 Urnls dip stick/tabl et reagent auto microscopy Dr. Cholo Smith DO Work Phone: Start: 02-14-2025 Ultrasonography for biophysical profile without non-stress testing Dr. Cholo Smith DO Work Phone: Start: 02-14-2025 Blood count smear mc rscp w/mnl difrntl wbc count Dr. Cholo Smith DO Work Phone: Start: 02-14-[address] Cholo Smith DO Work Phone: Start: 02-14-2025 Mean corpuscular hem oglobin concentration determination Dr. Cholo Smith DO Work Phone: Start: 02-14-[address] Hoang Smith DO Work Phone: Start: 02-14-2025 Nucleated red blood cell count procedure Dr. Cholo Smith DO Work Phone: Start: 02-14-2025 Platelet mean volume determination Dr. Cholo Smith DO Work Phone: Start: 02-14-2025 Tri[address]ol lipa se measurement Dr. Cholo Smith DO Work Phone: Start: 02-07-[address] Cholo Smith DO Work Phone: Start: 02-07-[address] Cholo Smith Work Phone: Start: 02-07-2025 Mean corpuscular hem oglobin concentration determination Dr. Cholo Smith [employer] Phone: Start: 02-07-2025 Platelet mean volume determination Dr. Cholo Smith [employer] Work Phone: Start: 02-07-2025 Urnls dip stick/tabl et reagent auto microscopy Dr. Cholo Smith [facility] Phone: Start: 02-05-2025 Measurement of gluco se 2 hours after glucose challenge for glucose tolerance test Dr. Cholo Smith [facility] Phone: Start: 12-26-2024 Blood count smear mc rscp w/mnl difrntl wbc count Dr. Cholo Smith [employer] Work Phone: Start: 12-26-2024 Mean corpuscular hem oglobin concentration determination Dr. Cholo Smith [facility] Phone: Start: 12-26-2024 Measurement of gluco se 2 hours after glucose challenge for glucose tolerance test Dr. Cholo Smith [facility] Phone: Start: 12-26-[address] Hoang Smith [employer] Work Phone: Start: 12-26-2024 Nucleated red blood cell count procedure Dr. Cholo Smith DO Work Phone: Start: 12-26-2024 Platelet mean volume determination Dr. Cholo Smith DO [employer] Phone: Start: 12-26-2024 Serologic test for syphilis Dr. Cholo Smith [facility] Phone: Start: 10-15-2024 Gram stain microscopy Annia Smith [employer] Phone: Start: 10-15-2024 End: 10-15-2024 Source specific [...] HCV Quant by PCR testing - HCVPCR #[id number] Non Reactive: < 0.8 Equivocal: >/= 0.8 [...] tibia & fibula 2 views Kelly Calabrese [employer] Work Phone: Start: 03-01-2023 Radex hip unilateral with pelvis 2-3 views Kellyryan Calabrese [employer] Work Phone: Start: 09-02-2022 MRI of joint of lowe r extremity Dr. Cholo Smith Work Phone: Start: 07-18-2022 Bilateral mammography Annia Smith Work Phone: Start: 07-18-[address] Cholo Smith Work Phone: Start: 07-06-2022 Arthrocentesis aspir &/inj major jt/bursa w/o us Cathryn Morrell DO Work Phone: Start: 12-28-2022 Radex hip unilateral with pelvis 2-3 views Viancaleon Morrell DO Work Phone: Start: 02-28-2022 Dup-scan xtr veins unilateral/limited study Kelly Johnson PA-C Work Phone: Start: 12-31-2021 MRI of joint of lowe r extremity Dr. Cholo Smith Work Phone: Start: 12-08-2021 Radex hip unilateral with pelvis 2-3 views ViancaYusra Morrell DO Work Phone: Viral antigen assay Dr. Cholo Smith Work Phone: Plan of Treatment Date Care Activity Detail Author Start: 06-15-2030 Urine microalbumin profile DTaP,Tdap,Td Vaccine (3 - Td or Tdap) [facility] Start: 03-09-2025 Patient discharge [facility] Start: 03-07-2025 Documentation procedure [facility] Start: 03-07-2025 Administration of medication [facility] Start: 03-07-2025 Application of ice collar, cap or bag [facility] Start: 03-07-2025 Catheterization of vein [facility] Start: 03-07-2025 Introduction of urin david catheter [facility] Start: 03-07-2025 Measuring intake and output [facility] Start: 03-07-2025 Notification of physician [facility] Start: 03-07-2025 Procedure discontinued [facility] Start: 03-07-2025 Provision of activit y privileges [facility] Start: 03-07-2025 Vital signs measurements [facility] Start: 03-07-2025 End: 03-07-2025 [facility] Start: 03-06-2025 Notification of physician [facility] Start: 03-06-2025 End: 03-06-2025 [facility] Start: 03-06-2025 acoustic stimulation test [facility] Start: 03-06-2025 Intrauterine catheterization [facility] Start: 03-06-2025 Admission procedure [facility] Start: 03-06-2025 Anesthesia consultation [facility] Start: 03-06-2025 Application of intermittent pneumatic compression device [facility] Start: 03-06-2025 Catheterization of vein [facility] Start: 03-06-2025 Introduction of urin david catheter [facility] Start: 03-06-2025 Obstetric monitoring [facility] Start: 03-06-2025 Provision of activit y privileges [facility] Start: 03-06-2025 Vital signs measurements [facility] Start: 03-06-2025 End: 03-06-2025 [facility] Start: 02-28-2025 End: 02-28-2025 [facility] Start: 02-28-2025 Nonstress test [facility] Start: 02-28-2025 Catheterization of vein [facility] Start: 02-27-2025 Group B Streptococcu s Culture Group B Streptococcus Culture [facility] Start: 02-27-2025 Streptococcus agalac tiae [Presence] in Unspecified specimen by Organism specific culture [facility] Start: 02-14-2025 Biophysical pr ofile panel US [facility] Start: 02-14-2025 Ultrasonography for biophysical profile without non-stress testing OB Biophysical Prof W/O NST [facility] Start: 02-14-2025 Nonstress test [facility] Start: 02-14-2025 Obstetric monitoring [facility] Start: 02-14-2025 Vital signs measurements [facility] Start: 02-14-2025 [facility] Start: 02-14-2025 Patient discharge [facility] Start: 02-07-2025 Bacteria identified in Urine by Culture Urine Culture [facility] Start: 02-07-2025 End: 02-07-2025 [facility] Start: 02-07-2025 Nonstress test [facility] Start: 02-07-2025 Obstetric monitoring [facility] Start: 02-07-2025 Vital signs measurements [facility] Start: 10-15-2024 Source specific culture Genital Cult ure [facility] Start: 10-15-2024 Source specific culture [facility] Start: 10-12-2024 [facility] Start: 06-11-2024 Colonoscopy flexible with band ligation(s) COLONOSCOPY W/BAND LIGATION [facility] Start: 06-11-2024 Destruction internal hemorrhoid thermal energy DESTROY INTERNAL HEMORRHOIDS [facility] Start: 06-11-2024 Patient discharge [facility] Start: 03-10-2024 Covid-19 Vaccine ( season) Covid-19 Vaccine ( season) [facility] Start: 03-10-2024 Influenza vaccination Influenza Vacc ine (#1) [facility] Start: 12-08-2022 Incision & drainage abscess simple/single DRAINAGE OF SKIN ABSCESS [facility] Start: 07-10-2022 DEPRESSION ASSESSMENT DEPRESSION ASS [facility] Start: 03-10-2022 Influenza vaccination INFLUENZA (#1) [facility] Start: 11-11-2021 Patient referral [facility] Work Phone: Start: 07-10-2021 DEPRESSION ASSESSMENT DEPRESSION ASS [facility] Start: 2018 HPV TESTING HPV TESTING [facility] Start: 2009 PAP TESTING PAP TESTING [facility] Start: 2009 Screening for malign ant neoplasm of cervix Cervical Cancer Screening [facility] Start: 11-14-2007 Urine microalbumin profile DTAP,TDAP,TD (1 - Tdap) [facility] Start: 2006 Anxiety Screening Anxiety Screening [facility] Start: 2006 Depression Screening Depression Scre [facility] Start: 2006 HEPATITIS C SCREENING HEPATITIS C [facility] Start: 2006 Hepatitis C screening Hepatitis C [facility] Start: 2006 HIV SCREENING HIV SCREENING [facility] Start: 2006 HIV screening HIV Screening [facility] Start: 2000 Adult depression screening assessment DEPRESSION SCREENING [facility] Start: 1988 HEPATITIS B (1 of 3 - 3-dose series) HEPATITIS B (1 of 3 - 3-dose series) [facility] Beta-hemolytic Streptococcus culture [facility] CBC W Auto Different ial panel - Blood [facility] CBC W Auto Different ial panel - Blood [facility] Hepatitis B surface antigen measurement [facility] Hepatitis C antibody measurement [facility] HIV 1+2 Ab+HIV1 p24 Ag [Presence] in Serum or Plasma by Immunoassay [facility] Measurement of gluco se 2 hours after glucose challenge for glucose tolerance test [facility] End: 01-07-2023 Mri any jt lower extrem w/o contrast matrl MRI HIP WO IVCON RT Radiology Routine Pain in hip 1 Occurrences starting 12/08/2021 until 01/07/2023 [facility] Work Phone: Comment on above: 1 Occurrences starti ng 12/08/2021 until 01/07/2023 End: 09-17-2023 MRI HIP WO IVCON RT MRI HIP WO IVCON RT Radiology Routine Trochanteric bursitis of right hip 1 Occurrences starting 08/18/2022 until 09/17/2023 [facility] Work Phone: Comment on above: 1 Occurrences starti ng 08/18/2022 until 09/17/2023 Patient Education [facility] Work Phone: Patient referral [facility] Work Phone: Protein/Creatinine [Ratio] in Urine [facility] Radionuclide study o f abdomen [facility] Rubella IgG measurement [facility] Serologic test for syphilis [facility] Streptococcus agalac tiae [Presence] in Unspecified specimen by Organism specific culture [facility] Treponema sp Ab [Presence] in Serum [facility] Urine culture [facility] Abdomen limited [facility] Immunizations Immunization Date Immunization Notes Care Provider Fa cility 02-13-2025 tetanus toxoid, redu esthela diphtheria toxoid, and acellular pertussis vaccine, adsorbed Dr. Cholo Smith DO Work Phone: [facility] 05-16-2024 influenza, seasonal, injectable, preservative free Dr. Cholo Smith DO Work Phone: [facility] 07-08-2024 tetanus toxoid, redu esthela diphtheria toxoid, and acellular pertussis vaccine, adsorbed Dr. Cholo Smith DO Work Phone: [facility] 05-04-2023 Covid (Spikevax) Dr. Cholo Ann Work Phone: [facility] 04-12-2023 influenza, injectabl e, quadrivalent, preservative free Dr. Cholo Smith Work Phone: [facility] 04-12-2023 influenza virus vaccine, unspecified formulation [employer] Work Phone: [facility] 04-11-2022 influenza, injectabl e, quadrivalent, preservative free Dr. Cholo Smith Work Phone: [facility] 04-11-2022 influenza, seasonal, injectable Dr. Cholo Smith Work Phone: [facility] 04-01-2022 Covid Pfizer Bivalen t Booster Dr. Cholo Smith Work Phone: [facility] 05-14-2021 Covid (Pfizer) Dr. Cholo lopez Work Phone: [facility] 04-16-2021 influenza, injectabl e, quadrivalent, preservative free Dr. Cholo Smith Work Phone: [facility] 04-16-2021 influenza, seasonal, injectable Dr. Cholo Smith Work Phone: [facility] 10-01-2020 Covid (Pfizer) Dr. Cholo lopez Work Phone: [facility] 09-10-2020 Covid (Pfizer) Dr. Cholo lopez Work Phone: [facility] 06-15-2020 tetanus toxoid, redu esthela diphtheria toxoid, and acellular pertussis vaccine, adsorbed Dr. Cholo Smith Work Phone: [facility] 04-15-2020 influenza, injectabl e, quadrivalent, preservative free Dr. Cholo Smith Work Phone: [facility] 04-15-2020 influenza, seasonal, injectable Dr. Cholo Smith Work Phone: [facility] 11-25-2019 hepatitis B vaccine, adult dosage Dr. Cholo Smith Work Phone: [facility] 06-27-2019 hepatitis B vaccine, adult dosage Dr. Cholo Smith Work Phone: [facility] 05-30-2019 hepatitis B vaccine, adult dosage Dr. Cholo Smith Work Phone: [facility] 02-23-2018 influenza, injectabl e, quadrivalent, preservative free Dr. Cholo Smith Work Phone: [facility] 02-23-2018 influenza, seasonal, injectable Dr. Cholo Smith Work Phone: [facility] 02-23-2018 tetanus toxoid, redu esthela diphtheria toxoid, and acellular pertussis vaccine, adsorbed Dr. Cholo Smith Work Phone: [facility] Payers Date Payer Category Payer Self-pay [id number] 2022 Unknown [id number] 2020 Unknown ELA SORENSEN PPO [id number] 2020-Present [phone] [address] [place] [address] PPO [id number] 2020 Unknown [id number] 2020 Unknown [id number]. 1.13.159.2.7.3.6 [id number] 1988 Unknown [id number] 2.16.840.1.947791.3.579.2 1988 Unknown [id number] 840.1.029843.3.579.2 1988 Unknown [id number] 2.840.1.196274.3.579.2 1988 Unknown [id number] 840.1.031573.3.579.2 1988 Unknown [id number] .840.1.710984.3.579.2 1988 Unknown [id number] 08.25.830.1.435440.3.579. 1988 Unknown [id number] 840.1.742492.3.579. 1988 Unknown [id number] 08.25.830.1.619028.3.579.2 1988 Unknown [id number] 840.1.609776.3.579.2 1988 Unknown [id number] 2840.1.259650.3.579.2.479 Unknown [id number] 840.1.821494.3.579.2.462 Unknown [id number] 840.1.811576.3.579.2.462 Unknown [id number] 840.1.322221.3.579.2.462 Unknown [id number] 840.1.367168.3.579.2.462 Unknown [id number] 2840.1.033755.3.579.2.462 Unknown [id number] 2840.1.019080.3.579.2.462 Unknown [id number] 840.1.062575.3.579.2.462 Unknown [id number] 2.16.840.1.223324.3.579.2.462 Unknown [id number] 2.16.840.1.213552.3.579.2.462 Unknown [id number] 2.16.840.1.306720.3.579.2.462 Unknown [id number] 2.16.840.1.187597.3.579.2.462 Unknown [id number] 2.16.840.1.251776.3.579.2.462 Unknown [id number] 2.16.840.1.765782.3.579.2.462 Unknown [id number] 2.16840.1.175997.3.579.2.462 Unknown [id number] 2.16840.1.340577.3.579.2.462 Unknown [id number] 2.840.1.626706.3.579.2.462 Unknown [id number] 2.840.1.283290.3.579.2.462 Unknown [id number] 2.840.1.380320.3.579.2.462 Unknown [id number] 2.840.1.998048.3.579.2.462 Unknown [id number] 2.16840.1.220912.3.579.2.462 Unknown [id number] 2.840.1.734430.3.579.2.462 Unknown [id number] 2.16840.1.208235.3.579.2.462 Unknown [id number] 2.16840.1.654379.3.579.2.462 Unknown [id number] 2.16840.1.222870.3.579.2.462 Unknown [id number] 2.16840.1.010769.3.579.2.462 Unknown [id number] 2.16840.1.962409.3.579.2.462 Unknown [id number] 2.16.840.1.045076.3.579.2.462 Unknown [id number] 2.16.840.1.437088.3.579.2.462 Unknown [id number] 2.16.840.1.548938.3.579.2.462 Unknown [id number] 2.16840.1.002440.3.579.2.462 Unknown [id number] 2.16840.1.775087.3.579.2.462 Unknown [id number] 2.840.1.171613.3.579.2.462 Unknown [id number] 2.840.1.631342.3.579.2.462 Unknown [id number] 2.840.1.284144.3.579.2.462 Unknown [id number] 2.840.1.647094.3.579.2.462 Unknown [id number] 2.840.1.484834.3.579.2.462 Unknown [id number] 2.840.1.612054.3.579.2.462 Unknown [id number] 2.840.1.802716.3.579.2.462 Unknown [id number] 2.840.1.365115.3.579.2.462 Unknown [id number] 2.840.1.181829.3.579.2.462 Unknown [id number] 2.840.1.552366.3.579.2.462 Unknown [id number] 2.16840.1.905424.3.579.2.462 Unknown [id number] 2.16840.1.663939.3.579.2.462 Unknown [id number] 2.840.1.856744.3.579.2.462 Unknown [id number] 2.16.840.1.760408.3.579.2.462 Unknown [id number] 2.16.840.1.023987.3.579.2.462 Unknown [id number] 2.16.840.1.791353.3.579.2.462 Unknown [id number] 2.16.840.1.460278.3.579.2.462 Unknown [id number] 2.16.840.1.930111.3.579.2.462 Unknown [id number] 2.16.840.1.486216.3.579.2.462 Unknown [id number] 2.16.840.1.959073.3.579.2.462 Unknown [id number] 2.16.840.1.896557.3.579.2.462 Unknown [id number] 2.16.840.1.876568.3.579.2.462 Social History Date Type Detail Facility Start: 03-09-2022 End: 03-12-2025 Tobacco smoking status NHIS Never smoked tobacco [facility] Start: 12-08-2021 End: 04-21-2022 Alcohol intake Current non-drinker of alcohol (finding) [facility] Start: 1990 Sex Assigned At Female C [facility] Start: 11-28-2021 End: 04-21-2022 Exposure to SARS-CoV-2 (event) Not sure [facility] Start: 11-03-2021 End: 10-20-2023 Tobacco smoking status NHIS Unknown if ever smoked [facility] Start: 11-01-2019 Non-smoker [facility] Start: 01-18-2022 End: 01-28-2022 Exposure to SARS-CoV-2 (event) Unable to assess [facility] Start: 03-09-2022 Tobacco use and exposure Smokeless tobacco non-user [facility] Start: 12-08-2021 End: 05-12-2023 History of Social function [facility] Start: 12-08-2021 End: 05-12-2023 Tobacco use panel [facility] Adult Depression Screening Assessment 0 [facility] Start: 12-08-2021 Gender identity Identifies as female gender (finding) [facility] Start: 12-08-2021 Sexual orientation Heterosexual (yolanda frias) [facility] Start: 09-24-2024 End: 10-17-2024 Sex Female (finding) [facility] NEGATED: Highlighted row [facility] NEGATED: Highlighted row Not [facility] Medical Equipment Procedure Code Equipment Code Equipment Origin al Text Equipment Identifier Dates Colonoscopy [id number] FDA Start: 06-11-2024 Goals Date Patient Goal Desired Activity /State Mental Status Date Assessment Result Facility 06-11-2024 Cognitive function Level Of Consciousness Sedated [facility] Work Phone: 06-11-2024 Cognitive function Voice/Name [facility] Work Phone: Clinical Notes 12-08-2021 to 03-13-2025 Note Date & Type Note Facility 03-13-2025 Progress note Note Date/Time March 13, 2025 2:42pm [facility] [place] [address] [employer] [facility] [place] [address] OFFICE VISIT Date of Service: 03/13/25 MR#: [id number] Acct: [id number] Name: MANDI VALENTE Rep #: [id number] : 1990 Provider: LUIS EDUARDO Guajardo Age/Sex: 34/F [place] [facility]: Signed Intake Vital Signs 3 03/06/25 16:55 03/12/25 12:06 03/13/25 11:18 Height 5 ft 2 in 5 ft 2 in 5 ft 2 in Intake Visit Reasons: Mastitis Is patient in pain?: No Allergies No Known Allergies Allergy (Verified 03/06/25 16:55) : Yes PFSH PFSH Medical History (Updated 03/13/25 @ 14:21 by LUIS EDUARDO Wong) Mastitis associated with macrosomia Seasonal allergies Superficial varicosities Pre-eclampsia Galactorrhea Hx of pre-eclampsia in prior , currently Allergic dermatitis Trochanteric bursitis of right hip [...] 4 current occupational status: employed 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 Date Name GA/Weeks Outcome Route Bth Weight Gen Labor Lgth Anesthesia Del Locatn Provider FOB 04/05/18 Vinsen 41 live - full term 9#7oz Male 26 hrs epid ural [facility] Kat Cale Alvarez 11/01/19 10 spontaneous 08/10/20 Lakisha 37 live - full term 5#14oz Female 10 HR epid ural [facility] Jenni Pino 08/10/20 [place] 37 live - full term 6#4oz Male 10 HR epid ural [facility] Jenni Coyle Alvarez 03/19/24 Elaine 39 live - full term 8lbs 2oz Female [facility] Dr. Gleason 03/07/25 Jayson 37 live - full term Male epidur al [facility] MIN Pino Delivery Date: 04/05/18 Last Updated by: Merna [...] Updated by: Lauren Osborn AMA, gestational hypertension Delivery Date: 03/07/25 Last Updated by: Nadege Chacon RN See problem list for complications HPI HPI HPI: MANDI VALENTE, is a 34 F who presents to the office today for Mastitis, patient reports symptoms began on monday night, 03/08/25 which she initially thought was a clogged duct. Symptoms have slowly progressed since that day and yesterday, she sent a message to [facility] about her sx and was given a rx for cephalexin. She reports she has a past hx of mastitis after having her other children and has been treated successfully with abx in the pastfor this infection. Exam Maternal Assessment Breast Assessment Right Breast: Red Bilateral Breasts: Soft and Symmetrical Nipple Assessment Bilateral Nipples: Everted and Short Areolar Tissue Areolar Tissue: Pliable Diagrams - Click on the drop-down arrow Breast Diagram: 2 1. reddened warm area, tender to palpation. patient tolerates exam, reports pain was much worse in this area yesterday. Assessment Baby Feeding History Number of Breast Feedings in 24 hours: 8-12 Minutes per breast: First Breast: 15 (always starts on right side) Minutes per breast: Second Breast: 30 Breast Pumping Frequency: pumping after feeds (not every feed) Amount: pumps approximately 3-4 oz after feeds Exam Const General: comfortable and no acute distress Orientation: alert and oriented x3 Chest Breast inspection: normal inspection of the breasts Breast palpation: abnormal palpation of the breast Other: warmth, tenderness with palpation and redness located along right outer portion of right breast. Fullness/lobules noted in breast throughout, MOB about to feednewborn (last feed 3 hours ago) Resp Effort & Inspection: normal respiratory effort Skin General: no rashes or lesions noted Psych Appearance: grossly normal Mental Status: mental status grossly normal Affect: normal affect Assessment and Plan Assessment and Plan (1) Mastitis associated with : Status: Acute Comment: Patient reports she has taken 3 doses of her cephalexin (QID [id number]) and feels a lot better. She has not had a fever that she knows of, but has been taking ibuprofen around the clock for the pain associated with delivery and the breast pain which may have masked any fever. She was using heat on breast for comfort and I encouraged her to use coldpacks to help reduce the pain and inflammation and to continue the Cephalexin, OTC ibuprofen or tylenol as needed for pain. Discussed continuing to feed on the affected side (right) and to alsobe aware of potential decrease in supply on the side with mastitis that can occur after an infection is present in the breast. Patient has history of oversupply and is aware of how to monitor how much milk she is making and is planning to continue to pump a few times a day and will monitor her supply closely. Plan: Call back if you start to feel worse or develop a fever or s/sx of an abscess. Do not skip a feed as this may cause additional discomfort in the breast. Continue ibuprofen/tylenol and Cephalexin as prescribed. F/U as needed. Coding Level of Care Code New Pt Off vis,new,level 2 Patient Type New History Problem Focused Exam Problem Focused Medical Decision Making Straight Forward Diagnoses Mastitis associated with O91.23 03/13/25 1442 <Electronically signed by Janee HOFF> Date _ Janee HOFF Cosigner Signature: Date (if applicable) CC: ~ [facility] Work Phone: 1(222) 421-560008-31-2025 [facility]08-30-2025 Progress note Author Linda Hammond [facility] Note Date/Time March 08, 2025 10 :15am [facility] Medical Records Department [address] [place] [address] Progress Note - OBGYN 03/08/25 1012 MR#: [id number] Acct: [id number] Name: MANDI VALENTE Rep #:[id number] : 1990 34 From: Linda Hammond CNM PCP: Dr. Cholo Smith, DO Status:ADM IN Location: IH260-6 Subjective Subjective Patient doing well without complaints. Tolerating PO. Ambulating and voiding without difficulty. Feeding well. Denies chest pain, shortness of breath, calf pain/swelling, fevers, chills, lightheadedness. Objective Data Objective Data Vital Signs: Vital Signs Temp Pulse Resp BP Pulse Ox O2 Del Method 97.2 F L 83 16 114/71 99 Room Air 03/08/25 03:50 03/08/25 09:33 03/08/25 03:50 03/08/25 09:33 03/08/25 03:50 03/08/25 03:50 Oxygen Delivery Method Room Air Weight: 218 lb Body Mass Index (BMI) 39.9 Intake & Output: Intake and Output for Last 24 Hours 03/06/25 03/07/25 03/08/25 23:59 23:59 23:59 Intake Total 2122.72 / 2122.72 2353.30 / 2353.30 Output Total 900 / 900 1200 / 1200 Balance 1222.72 / 1222.72 1153.30 / 1153.30 Lab / Micro Data 03/06/25 17:45 Physical Exam Const alert and oriented x3 Chest inspection of chest normal and palpation of chest normal Resp normal respiratory effort and normal air movement Cardio regular rate and regular rhythm GI normal to inspection, nondistended, normoactive bowel sounds Uterus Palpation: uterus fundus firm Extremity normal to inspection, full ROM and no calf tenderness Skin no rashes or lesions noted Psych mental status grossly normal Assessment & Plan (1) (spontaneous vaginal delivery): COMMENT: JV boy PLAN: Plan s/p PPD # 1 1. routine post delivery care 2. breast feeding- support given 3. rh positive 4. rubella immune 03/08/25 1015 <Electronically signed by Linda Hammond CNM> Cosigner Signature (if applicable): CC: ~ [facility]igned [facility] Work Phone: 1(989) 458-202608-29-2025 Discharge summary Author Reina Romero [facility] Note Date/Time March 07, 2025 1: 06pm [facility] Medical Records Department [address] [place] [address] Instructions for Home/Discharge Instructions 03/07/25 1305 MR#: [id number] Acct: [id number] Name: MANDI VALENTE Rep #:[id number] : 1990 34 From: Reina Rashid DO PCP: Dr. Cholo Smith DO Status:ADM IN Discharge Instructions DC O2, CPAP, BIPAP needs Home O2 Discharge instructions: No Dressing / Incision Discharge Activity: Return to Normal Activity, May Not Drive (while taking narcotic pain medications.) and May Shower May resume sexual activity in: 4-6 weeks Dressing / Incision Call your doctor if your incision/area has: Continuous Slow Oozing, Sudden Increased Bleeding, Increased Pain/ Swelling, Increased Redness and Foul Smelling Discharge Follow Up Care Please Follow Up With: Reina Rashid DO When: Call [phone] to make an appointment with your doctor in 6 weeks. If you had elevated blood pressure or 4th degree laceration, you will need to be seen in 2 weeks. Test Results: Test results from this visit will be discussed in further detail at your follow- up appointment, if applicable. Discharge Plan Admission Admit Date/Time: 03/06/25 16:35 Attending Provider: Piedad Moreno Primary Care Provider: Cholo Smith Discharge Orders/Prescriptions Prescriptions: No Action PNV-DHA 27 mg iron-1 mg -300 mg capsule 1 cap PO DAILY ferrous sulfate 325 mg (65 mg iron) tablet 325 mg PO Q OTHER DAY (DME) Diltiazem 2% / Lidocaine 5% ointment (compound) Ointment See Rx Instructions .Route Qty: 1 0RF Patient Comments: Not using currently Rx Instructions: place a pea sized amount to the affected area of the rectum twice a day famotidine [Pepcid] 20 mg tablet 20 mg PO BID 90 Days Qty: 180 4RF hydroxyzine pamoate 25 mg capsule 25 mg PO QHS PRN (Reason: itching) Qty: 30 3RF Referrals / Follow Up: Cholo Smith DO [Primary Care Provider] - 03/07/25 1306<Electronically signed by Reina Rashid DO>Reina Rashid DO CC: Dr. Cholo Smith DO ~ [facility]igned [facility] Work Phone: 1(874) 570-437608-29-2025 Procedure [facility] 03-07-2025 History and physical note Author Piedad Moreno [facility] Note Date/Time March 07, 2025 1: 08am [facility] Medical Records Department [address] [place] [address] H&P Exam - LIFE SCIENCE RESEARCH ASSISTANT 03/06/25 1906 MR#: [id number] Acct: [id number] Name: MANDI VALENTE Rep #:[id number] : 1990 34 From: Piedad del castillo MD PCP: Dr. Cholo Smith DO Status:ADM IN Location: [id number] HPI - General General Date of Admission: 03/06/25 HPI Narrative MANDI VALENTE, is a 34 F who presents secondary to abnormal testing she had a 6 out of 8 BPP and then had an equivocal nonstress test in the office withperiodic variables seen and therefore decision was made to recommend induction of labor. Unstable lie was encountered therefore patient was counseled regarding external cephalic version and the patient agreed. Patient denies any vaginal bleeding or loss of fluid admits good movement. Maternal Data Information RAMSES Calculator Estimated Delivery Date Method Current WG Current Estimate 03/27/25 LMP (Certain) 37w 1d PFSH [facility] Medical History (Updated 03/07/25 @ 01:[address] Piedad Moreno MD) macrosomia Seasonal allergies Superficial varicosities Pre-eclampsia Galactorrhea Hx of pre-eclampsia in prior , currently Allergic dermatitis Trochanteric bursitis of right hip Lymphocytic colitis Non-smoker History of steroid therapy Constipation Umbilical hernia Chronic constipation Dichorionic diamniotic twin gestation Anal fissure External hemorrhoids Home Medications ?Medication ?Instructions ?Recorded ?Last Taken ?Type multivitamin no.47-iron fum 27 1 cap PO DAILY pregnanc y 08/18/23 02/27/25 History mg-folate no.1 1 mg-dha 300 mg capsule (PNV-DHA) Diltiazem 2% / Lidocaine 5% #1 ea 06/24/24 Unknown Rx ointment (compound) ferrous sulfate 325 mg (65 mg 325 mg PO Q OTHER DAY an emia 08/06/24 Unknown History iron) tablet Held on 03/06/25. 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 Date Name GA/Weeks Outcome Route Bth Weight Gen Labor Lgth Anesthesia Del Locatn Provider FOB 04/05/18 Vinsen 41 live - full term 9#7oz Male 26 hrs epid ural [facility] Shey Madsen Alvarez 11/01/19 10 spontaneous 08/10/20 Lakisha 37 live - full term 5#14oz Female 10 HR epid ural [facility] Jenni Pino 08/10/20 Abran 37 live - full term 6#4oz Male 10 HR epid ural [facility] Jenni Pino 03/19/24 Elaine 39 live - full term 8lbs 2oz Female [facility] Dr. Gleason Delivery Date: 04/05/18 [...] (-2 lb 10 oz) 139/84 -?-?-?-?-?-?-?-?-?-?-?-?- 165 -?-?--?-?-?-?-?-?-?-?-?-?- JV- CRL consiste nt with LMP. She [...] no vb/lof/ct x. cyst is bothersome again. [facility] scheduled KW- no vb/lof/ctx. cyst is b othersome again discussed with SM. [facility] scheduled 10/15/24 -?-?-?-?-?-?-?-?-?-?-?-?- 16w 5d 200 lb 6 oz (+4 lb 6 oz) 136/86 Negative -?-?-?-?-?-?-?-?-?-?-?-?- Negative 135 -?-?-?-?-?-?-?-?-?-?-?-?- SM- had episode of light bleeding yeast seen in ER hasn't been treated yet. urine culture and vaginal culture sent 11/07/24 -?--?-?-?-?-?-?-?-?-?-?-?- 20w 0d 205 lb 8 oz (+9 [...] at the time of the tubal. 02/13/25 -?-?-?-?-?-?-?-?-?-?--?-?- 34w 0d 218 lb 6 oz (+22 [...] (+20 lb) 128/84 -?-?-?-?-?-?-?-?-?-?-?-?- 140 35 Cephalic -?-?-?-?-?-?-?-?-?-?-?-?- SM- no vb lof go od fm n oregular ctx pupps no bp elevatin, feels like head down now 02/27/25 -?-?-?-?-?-?-?-?-?-?-?-?- 36w 0d 219 lb 2 oz (+23 lb 2 oz) 133/80 Negative -?-?-?-?-?-?-?-?-?-?-?-?- Negative 140 36 Breech 0 -?-?-?-?-?-?-?-?-?-?-?-?- SM- no vb lof go od fm n oreuglar ctx disucssed ECV plan tomorrow and IOL cytotec next due to closed 03/05/25 -?-?-?-?-?-?-?-?-?-?-?-?- 36w 6d 221 lb 7 oz (+25 lb 7 oz) 118/81 Negative -?-?-?-?-?-?-?-?-?-?-?-?- Negative 166 40 Cephalic 1 -?-?-?-?-?-?-?-?-?-?-?-?- 30 -3 JV- cephal ic on us. Pt wants to delay start of cytotec due to h/o going very fast. L&D aware of plan. NST FHR Rate Baby A Baseline: 130 Variability:: Moderate Accelerations:: 15 x 15 Decelerations:: None NST Reactive:: Yes FHR Category:: Category I Uterine Activity:: irregular ROS Constitutional Constitutional: Reports systems reviewed and no addt'l complaints, except as documented Eyes Eyes: Denies change in vision ENT HEENT: Reports systems reviewed and no addt'l complaints, except as documented; Denies headache(s) Cardiovascular Cardiovascular: Reports systems reviewed and no addt'l complaints, except as documented; Denies chest pain or dyspnea Respiratory/Chest Respiratory/Chest: Reports systems reviewed and no addt'l complaints, except as documented Gastrointestinal Gastrointestinal: Reports systems reviewed and no addt'l complaints, except as documented; Denies abdominal pain Genitourinary Genitourinary: Reports systems reviewed and no addt'l complaints, except as documented, contractions Details: present (irregular) and movement Details: present; Denies dysuria or genital lesions Musculoskeletal Musculoskeletal: Reports systems reviewed and no addt'l complaints, except as documented Neurologic Neurologic: Reports systems reviewed and no addt'l complaints, except as documented Endocrine Endocrinology: Reports systems reviewed and no addt'l complaints, except as documented Vital Signs Vital Signs Vital Signs: 03/06/25 16:47 03/06/25 16:47 03/06/25 16:47 Temperature Temperature Source Temporal Pulse Rate 96 Respiratory Rate Blood Pressure 135/84 H Blood Pressure Mean BP Systolic 135 BP Diastolic 84 Blood Pressure Source Blood Pressure Position Blood Pressure Location Pulse Ox Oxygen Delivery Method 03/06/25 16:47 03/06/25 16:47 03/06/25 16:59 Temperature 98.1 F 98.1 F Temperature Source Temporal Pulse Rate 97 Respiratory Rate 16 16 Blood Pressure 135/84 H Blood Pressure Mean 101 BP Systolic BP Diastolic Blood Pressure Source Monitor Blood Pressure Position Semi-Fowlers Blood Pressure Location Left Arm Pulse Ox 100 Oxygen Delivery Method Room Air 03/06/25 18:56 03/06/25 18:56 03/06/25 18:56 Temperature Temperature Source Temporal Pulse Rate 86 Respiratory Rate Blood Pressure 128/78 H Blood Pressure Mean BP Systolic 128 BP Diastolic 78 Blood Pressure Source Blood Pressure Position Blood Pressure Location Pulse Ox Oxygen Delivery Method 03/06/25 18:56 03/06/25 18:56 Temperature 96.9 F L Temperature Source Pulse Rate Respiratory Rate 16 Blood Pressure Blood Pressure Mean BP Systolic BP Diastolic Blood Pressure Source Blood Pressure Position Blood Pressure Location Pulse Ox Oxygen Delivery Method Weight Weight: 218 lb Body Mass Index (BMI) 39.9 Physical Exam Const alert, oriented x3, no apparent distress and healthy appearing HEENT normocephalic and moist oral mucous membranes Head and Scalp: atraumatic Neck full ROM, no lymphadenopathy, supple and thyroid normal General: trachea midline Lymph Lymphatic: no lymphadenopathy noted Chest inspection of chest normal Resp normal respiratory effort Cardio regular rate GI soft to palpation and non-tender GI Narrative: gravid Inspection: gravid external exam normal Manual OB Exam: estimated gestational size appropriate, presentation cephalic, dilated, effaced and station Extremity normal to inspection General Extremity: Negative for edema Skin no rashes or lesions noted Neuro no focal motor deficits and deep tendon reflexes 2+ bilaterally Motor Exam: strength 5/5 throughout and clonus absent Psych mental status grossly normal Labs Labs Labs: Blood Type A POSITIVE Antibody Screen NEGATIVE Hct 33.6 % (37-47) L Hgb 11.6 g/dL (12.0-15.0) L Obstetrics Ultrasound Syphilis Total Ab Nonreactive (Nonreactive) VZV IgG Antibody 1125 index (Immune >165) Rubella IgG Antibody REAC (Nonreactive) Hep Bs Antigen Nonreactive (Nonreactive) Hepatitis C Antibody Nonreactive (Nonreactive) Hepatitis C Ab (EIA) 0.2 s/co ratio (0.0-0.9) Chlamydia DNA (GUCCI) Negative (Negative) N.gonorrhoeae DNA (GUCCI) Negative (Negative) HIV 1&2 Antibody Nonreactive (Nonreactive) Glucose 1 Hr 50 gm 111 mg/dL (70-140) Gest Glucose Tolerance mg/dL Group B Strep DNA Negative (Negative) Rhogam given: No Miscellaneous Test Assessment & Plan (1) Encounter for induction of labor: (2) Unstable lie of fetus: (3) Proteinuria affecting : COMMENT: at 34 weeks-normal BP and rest of pre e labs. no pre e sx. (4) LGA (large for gestational age) fetus: COMMENT: 32wk: EFW 69%, AC 97%: rpt 1 hr GCT/normal (5) Advanced maternal age in multigravida: (6) Abnormal glucose affecting : COMMENT: normal 3 hour (7) Short interval between pregnancies affecting in first trimester, antepartum: COMMENT: baby 4 months old when became with this gestation. (8) History of miscarriage, currently : (9) Hx of twin in prior : COMMENT: Fraternal (10) Supervision of high-risk : COMMENT: PRR,, RAMSES 03/27/25, boy,PC Lakisha Underwood & Earnestine(Twins), Elaine Alvarez will be 39 weeks on Elaine's -. requests IOL on this day. (11) : QUALIFIERS: Weeks of gestation: 37 weeks Qualified Code(s): Z3A.37 - 37 weeks gestation of COMMENT: DOC ONLY NIPT low risk, anatomy needs f/u views. (12) Obesity affecting : COMMENT: HgbA1c (13) Inclusion cyst of vulva: COMMENT: +actinomycis:4 wk of amoxil (14) Hx of pre-eclampsia in prior , currently : COMMENT: negative labs . bp stable in WP. headache resolved. PLAN: Plan External cephalic version successful plan induction of labor with Pitocin and Mcnulty bulb and rupture of membranes whenever able. 03/07/25 0108 <Electronically signed by iPedad Moreno MD> Cosigner Signature (if applicable): CC: Dr. Cholo Smith DO; Dr. Piedad Moreno MD~ Signed [facility] Work Phone: 1(236) 852-340708-29-2025 Progress note Author Piedad Moreno [facility] Note Date/Time March 07, 2025 1: 01am [facility] Medical Records Department [address] [place] [address] Progress Note 03/07/25 0100 MR#: [id number] Acct: [id number] Name: MANDI VALENTE Rep #:[id number] : 1990 34 From: Piedad del castillo MD PCP: Dr. Cholo Smith, DO Status:ADM IN Location: [place] [id number] Progress Note arom clear fluid iupc placed, s/p epidural cat i tracing continue pit per protocol 03/07/25 0101 <Electronically signed by Piedad Moreno MD> Piedad Moreno MD Cosigner Signature (if applicable): CC: ~ Signed [facility] Work Phone: 1(934) 903-764708-29-2025 Procedure [facility] 02-18-2025 Progress [facility] [address] [place] [address], [address] [place] [address] OFFICE VISIT Date of Service: 02/18/25 MR#: [id number] Acct: [id number] Name: MANDI VALENTE Rep #: [id number] : 1990 Provider: Dr. Sukhwinder Moreno MD Age/Sex: 34/F [place] 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 Date Name GA/Weeks Outcome Route Bth Weight Gen Labor Lgth Anesthesia Del Locatn Provider FOB 04/05/18 Vinsen 41 live - full term 9#7oz Male 26 hrs epid ural [facility] Shey Madsen Alvarez 11/01/19 10 spontaneous 08/10/20 Lakisha 37 live - full term 5#14oz Female 10 HR epid ural [facility] Jenni Pino 08/10/20 Abran 37 live - full term 6#4oz Male 10 HR epid ural [facility] Jenni Pino 03/19/24 Elaine 39 live - full term 8lbs 2oz Female [facility] Dr. Gleason Delivery Date: 04/05/18 [...] no vb/lof/ct x. cyst is bothersome again. [facility] scheduled KW- no vb/lof/ctx. cyst is b othersome again discussed with . [facility] scheduled 10/15/24 -?-?-?-?-?-?-?-?-?-?-?-?- 16w 5d 200 [...] JV- still has a rash and twin isela saw her and thought it was just [...] we canoffer 39 week elective induction though. 02/18/25 -?-?-?-?-?-?-?-?-?-?-?-?- [...] OB Routine Diagnoses Proteinuria affecting O12.10 Contraction, Sandoval Osman O47.9 LGA (large for gestational age) [...] labs. no pre e sx. (2) Contraction, Sandoval Osman: Status: Acute Comment: fingertip per nursing [...] on Elaine'-. requests IOL on this day. (10) : [...] (21) Lymphocytic colitis: Status: Acute 02/18/25 1443 mounika FORD> Date _ Piedad Moreno [facility] Signature: Date (if applicable) CC: ~ [facility] [id number] Progress note Author Piedad Moreno [facility] Note Date/Time February 18, 2025 2: 43pm [facility] [address] [place] [address], [address] [place] [address] OFFICE VISIT Date of Service: 02/18/25 MR#: [id number] Acct: [id number] Name: MANDI VALENTE Rep #: [id number] : 1990 Provider: Dr. 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 Date Name GA/Weeks Outcome Route Bth Weight Infant Gen Labor Lgth Anesthesia Del Locatn Provider FOB 04/05/18 Vinsen 41 live - full term 9#7oz Male 26 hrs epid ural [facility] Shey Pino 11/01/19 10 spontaneous 08/10/20 Lakisha 37 live - full term 5#14oz Female 10 HR epid ural [facility] Jenni Pino 08/10/20 Abran 37 live - full term 6#4oz Male 10 HR epid ural [facility] Jenni Pino 03/19/24 Elaine 39 live - full term 8lbs 2oz Female [facility] Dr. Gleason Delivery Date: 04/05/18 Last Updated by: Merna Bermeo IOL post dates Delivery Date: 11/01/19 Last Updated by: Merna Bermeo D&C, blighted Ovum Delivery Date: 08/10/20 Last Updated by: Merna Calzadaler IOL @ 37wks Twins, Gestational HTN/pre-e Delivery Date: 08/10/20 Last Updated by: Merna Linda Bermeo IOL @ 37 weeks twins, gestational [...] no vb/lof/ct x. cyst is bothersome again. [facility] scheduled KW- no vb/lof/ctx. cyst is b othersome again discussed with . [facility] scheduled 10/15/24 -?-?-?-?-?-?-?-?-?-?-?-?- 16w 5d [...] OB Routine Diagnoses Proteinuria affecting O12.10 Contraction, Sandoval Osman O47.9 LGA (large for gestational age) [...] of high-risk : Status: Acute Comment: PRR,, RASMES 03/27/25, boy,PC Yasmine, Lakisha & Earnestine(Twins), Elaine [...] hemorrhoids (21) Lymphocytic colitis: Status: Acute 02/18/25 3607 <Electronically signed by Piedad ribera MD> Date _ Piedad Moreno MD Cosignadamaris Signature: Date (if applicable) CC: ~ [place] [employer] Work Phone: 1(530) 351-824308-08-2025 Progress note [facility] Medical Records Department [address] [place] [address] OB Triage Progress Note 02/14/25 2330 MR#: [id number] Acct: [id number] Name: MANDI VALENTE Rep #:[id number] : 1990 34 From: Suyapa Godinez CNM PCP: Dr. Cholo Smith, DO Status:REG CLI Y DOS: Location: [place] [address] Progress Notes Date of Service: 02/14/25 Progress Note: Patient presents for triage evaluation secondary to decreased movement at 34 weeks and slightRUQ pain. FHT: 120 Moderate variability reactive no decelerations category I tracing [place]: no Contractions Assessment and plan: pain resolved [...] Lymph % (Auto) 18.0 L (19-41) % Garfield % (Auto) 5.9 (0-10) % Eos % [...] pH 6.5 (5.0 - 8.0) Ur Specific [place] 1.010 (1.002-1.030) Urine Protein Negative (Negative) mg/dl [...] Multi Select Codes Visit Charges Office Visit/Consults: 00919 OV L3 Est 20min Urinary/Genital Urinary/Genital CPT Codes: 50206-46 non-stress test Interp Assessment & Plan (1) Proteinuria affecting : COMMENT: at 34 weeks-normal BP and rest of pre e labs. no pre e sx. (2) Contraction, Sandoval Osman: COMMENT: fingertip per nursing dilated with [...] Elaine Alvarez will be 39 weeks on Elaine'-day. requests IOL on this day. (11) : [...] hemorrhoids (22) Lymphocytic colitis: 02/14/25 2334 s ALIAM> Date _ Suyapa Andreignadamaris Signature (if applicable): Date CC: ERI Godinez; Dr. Cholo Smith, ~ Signed [facility]08-07-2025 Progress [facility] [address], [address] [place] [address] OFFICE VISIT Date of Service: 02/13/25 MR#: [id number] Acct: [id number] Name: MANDI VALENTE Rep #: [id number] : 1990 Provider: Dr. Bernadine Rashid DO Age/Sex: 34/F Location: [facility] [place] Status: Signed Intake Vital Signs 12/04/24 14:55 02/07/25 12:21 02/13/25 16:08 Height 5 ft 2 in 5 ft 2 in 5 ft 2 in Weight: 218 lb 6 oz BMI 39.9 BP 120/82 H Intake Visit Reasons: 34 wk ob *Doc Only 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 Required: No Is patient in pain?: No [...] 4 current occupational status: employed current occupation: [employer] Registration PRN current occupational exposures/hazards: [...] physical activity do you participate in: none suraj/evangelical: Spiritism seatbelt use: always do you feel safe at home: Yes additional social history: [employer] Pile Header History 5 Elective abortions Hx Para 3 Spontaneous abortions 1 Hx # Term Pregnancies Ectopic pregnancies Hx # Pregnancies Multiple births 1 # of living children 4 Past Pregnancies Del. Date Name GA/Weeks Outcome Route Bth Weight Infant Gen Labor Lgth Anesthesia Del Locatn Provider FOB 04/05/18 Vinsen 41 live - full term 9#7oz Male 26 hrs epid ural [facility] Shey Madsen Alvarez 11/01/19 10 spontaneous 08/10/20 Lakisha 37 live - full term 5#14oz Female 10 HR epid ural [facility] Jenni Pino 08/10/20 Abran 37 live - full term 6#4oz Male 10 HR epid ural [facility] Jenni Pino 03/19/24 Elaine 39 live - full term 8lbs 2oz Female [facility] Dr. Gleason Delivery Date: 04/05/18 [...] Negative -?-?-?-?-?-?-?-?-?-?-?-?- Negative 180 -?-?-?-?-?-?-?-?-?-?-?-?- KW- no vb/colton tapia. discussed starting atb and pt would [...] no vb/lof/ct x. cyst is bothersome again. [facility] scheduled KW- no vb/lof/ctx. cyst is b othersome again discussed with SM. [facility] scheduled 10/15/24 -?-?-?-?-?-?-?-?-?-?-?-?- 16w 5d [...] Performing Provider: Reina Rashid DO Performing Location: [place] [facility] [place] Administered by: Lauren Osborn on 02/13/25 16:21 Dose Route Admin Location Dispensed Lot Number Expiration Date NDC Spinning Machine Operator 0.5 mL IM Left Deltoid 0.5 mL [id number] 01/06/27 12389-603-61 SAN[employer]STE[employer] VIS Given Date VIS Provided VIS Publication Date 02/13/25 Single Vaccine 24 Eligibility Eligibility Date Funding Source Not Applicable Coding Level of Care Code OB Routine Diagnoses Contraction, Sandoval Osman O47.9 LGA (large for gestational age) [...] - Encounter for immunization 02/13/25 1637 e Velde DO> Date _ Reina Rashid DO Cosigner Signature: Date (if applicable) CC: ~ [facility]08-07-2025 Progress note Author Reina Romero [facility] Services Note Date/Time February 13, 2025 4:3 7pm [facility] [address], [address] [place] [address] OFFICE VISIT Date of Service: 02/13/25 MR#: [id number] Acct: [id number] Name: CHOCOIMELDARAOMANDIJUVE YOU Rep #: [id number] : 1990 Provider: Dr. Bernadine Rashid DO Age/Sex: 34/F Location: [facility] [facility] Status: Signed Intake Vital Signs 12/04/24 14:55 02/07/25 12:21 02/13/25 16:08 Height 5 ft 2 in 5 ft 2 in 5 ft 2 in Weight: 218 lb 6 oz BMI 39.9 BP 120/82 H Intake Visit Reasons: 34 wk ob *Doc Only 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 Required: No Is patient in pain?: No [...] mg capsule 0.8 mg PO QDAY 08/06/24 08/01/31 History famotidine 20 mg tablet (Pepcid) 20 [...] 4 current occupational status: employed current occupation: [facility] Registration PRN current occupational exposures/hazards: [...] physical activity do you participate in: none suraj/evangelical: Spiritism seatbelt use: always do you feel safe at home: Yes additional social history: [employer] Pile Header History 5 Elective abortions Hx Para 3 Spontaneous abortions 1 Hx # Term Pregnancies Ectopic pregnancies Hx # Pregnancies Multiple births 1 # of living children 4 Past Pregnancies Del. Date Name GA/Weeks Outcome Route Bth Weight Gen Labor Lgth Anesthesia Del Locatn Provider FOB 04/05/18 Vinsen 41 live - full term 9#7oz Male 26 hrs epid ural [facility] Shey Madsen Alvarez 11/01/19 10 spontaneous 08/10/20 Lakisha 37 live - full term 5#14oz Female 10 HR epid ural [facility] Jenni Pino 08/10/20 [place] 37 live - full term 6#4oz Male 10 HR epid ural [facility] Jenni Pino 03/19/24 Elaine 39 live - full term 8lbs 2oz Female [facility] Dr. Gleason Delivery Date: 04/05/18 [...] no vb/lof/ct x. cyst is bothersome again. [facility] scheduled KW- no vb/lof/ctx. cyst is b othersome again discussed with . [facility] scheduled 10/15/24 -?-?-?-?-?-?-?-?-?-?-?-?- 16w 5d [...] Movement Monitoring, Signs and Symptoms of Preeclampsia, [place] Education and Family Medical Leave or Disability Forms Results POC Urinalysis 2 Dip (Clinic) Office Urine Glucose Negative Last Edit by Lauren Osborn on 02/13/25 16: 22 Office Urine Protein Negative Last Edit by Lauren Osborn on 02/13/25 16: 22 Immunizations Adacel(Tdap Adolesn/Adult)(PF) 2 Lf-(2.5-5-3-5)-5 Lf/0.5 mL IM syringe Performing Provider: Reina Rashid, Performing Location: [facility] Administered by: Lauren Osborn on 02/13/25 16:21 Dose Route Admin Location Dispensed Lot Number Expiration Date NDC Spinning Machine Operator 0.5 mL IM Left Deltoid 0.5 mL [id number] 01/06/27 26254-504-33 SANOF [employer]PASTEUR VIS Given Date VIS Provided VIS Publication Date 02/13/25 Single Vaccine 24 Eligibility Eligibility Date Funding Source Not Applicable Coding Level of Care Code OB Routine Diagnoses Contraction, Sandoval Osman O47.9 LGA (large for gestational age) [...] on Elaine-. requests IOL on this day. (8) : [...] NS Z23 - Encounter for immunization 02/13/25 2027 <Electronically signed by Reina Billings DO> Date _ Reina Rashid DO Cosigner Signature: Date (if applicable) CC: ~ [place] [employer] Work Phone: 1(370) 244-510008-01-2025 History and physical note [facility] Medical Records Department [address] [place] [address] OB Triage Physician Note 02/07/25 1433 MR#: [id number] Acct: [id number] Name: MANDI VALENTE Rep #:[id number] : 1990 34 From: Linda Hammond CNM PCP: Dr. Cholo Smith, DO Status:REG CLI Y Location: [place] [address] HPI - General HPI Narrative MANDI VALENTE, [...] 4 current occupational status: employed current occupation: [facility] Registration PRN current occupational exposures/hazards: [...] physical activity do you participate in: none suraj/evangelical: Spiritism seatbelt use: always do you feel safe at home: Yes additional social history: [employer] Pile Header History 5 Elective abortions Hx Para 3 Spontaneous abortions 1 Hx # Term Pregnancies Ectopic pregnancies Hx # Pregnancies Multiple births 1 # of living children 4 Past Pregnancies Del. Date Name GA/Weeks Outcome Route Bth Weight Infant Gen Labor Lgth Anesthesia Del Locatn Provider FOB 04/05/18 Vinsen 41 live - full term 9#7oz Male 26 hrs epid ural [facility] Shey Madsen Alvarez 11/01/19 10 spontaneous 08/10/20 Lakisha 37 live - full term 5#14oz Female 10 HR epid ural [facility] Jenni Pino 08/10/20 [place] 37 live - full term 6#4oz Male 10 HR epid ural [facility] Jenni Pino 03/19/24 Elaine 39 live - full term 8lbs 2oz Female [facility] Dr. Gleason Delivery Date: 04/05/18 [...] no vb/lof/ct x. cyst is bothersome again. [facility] scheduled KW- no vb/lof/ctx. cyst is b othersome again discussed with . [facility] scheduled 10/15/24 -?-?-?-?-?-?-?-?-?-?-?-?- 16w 5d 200 [...] JV- still has a rash and twin isela saw her and thought it was just [...] irregular q4-12 Assessment & Plan (1) Contraction, Sandoval Osman: COMMENT: fingertip per nursing dilated with less intense/frequency in ctx. (2) Hx of pre-eclampsia in prior , currently : COMMENT: negative labs . bp stable in WP. headache resolved. PLAN: Plan Patient presents for triage evaluation secondary to contractions. FHT: Moderate variability reactive no decelerations category I tracing [place]: irregular Contractions Assessment and plan: Reactive NST, reassuring maternal and status patient discharged to home to follow-up in office.. See problem list details for additional plan information. Charges/Coding Procedures Urinary/Genital 52xxx-59xxx: 88313-69 non-stress test Interp 02/07/25 1437 ns CNM> Date _ Linda Hammond CNM Cosigner Signature (if applicable): Date CC: CNM Linda Hammond; Dr. Cholo Smith, DO ~ Signed [facility]07-07-2025 Progress [facility] [address], [address] [place] [address] OFFICE VISIT Date of Service: 01/13/25 MR#: [id number] Acct: [id number] Name: MANDI VALENTE Rep #: [id number] : 1990 Provider: ERI Godinez Age/Sex: 34/F Location: [facility] [place] [facility] Status: Signed Intake Vital Signs 11/07/24 09:36 01/03/25 15:03 01/13/25 10:45 Height 5 ft 2 in 5 ft 2 in 5 ft 2 in Weight: 215 lb 8 oz BMI 39.4 BP 126/87 H Intake Visit Reasons: 30 wk ob Chief Complaint: 30wk ob 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 Required: No Is patient in pain?: No [...] 4 current occupational status: employed current occupation: [facility] Registration PRN current occupational exposures/hazards: [...] physical activity do you participate in: none suraj/evangelical: Spiritism seatbelt use: always do you feel safe at home: Yes additional social history: Chad [email or web address] Pile Header History 5 Elective abortions Hx Para 3 Spontaneous abortions 1 Hx # Term Pregnancies Ectopic pregnancies Hx # Pregnancies Multiple births 1 # of living children 4 Past Pregnancies Del. Date Name GA/Weeks Outcome Route Bth Weight Infant Gen Labor Lgth Anesthesia Del Locatn Provider FOB 04/05/18 Vinsen 41 live - full term 9#7oz Male 26 hrs epid ural [facility] Shey Madsen Alvarez 11/01/19 10 spontaneous 08/10/20 Lakisha 37 live - full term 5#14oz Female 10 HR epid ural [facility] Jenni Pino 08/10/20 [place] 37 live - full term 6#4oz Male 10 HR epid ural [facility] Jenni Pino 03/19/24 Elaine 39 live - full term 8lbs 2oz Female [facility] Dr. Gleason Delivery Date: 04/05/18 [...] no vb/lof/ct x. cyst is bothersome again. [facility] scheduled KW- no vb/lof/ctx. cyst is b othersome again discussed with . [facility] scheduled 10/15/24 -?-?-?-?-?-?-?-?-?-?-?-?- 16w 5d [...] SM- no vb lof cr ampingboy on [facility]- no vb lof cramping boy o [...] Movement Monitoring, Signs and Symptoms of Preeclampsia, [place] Education and Family Medical Leave or Disability [...] Elaine's b-day. requests IOL on this day. (17) Hx of twin in prior : Status: Acute Comment: Fraternal (18) History of miscarriage, currently : Status: Acute Orders: Orders POC Urinalysis 2 Dip (Clinic) Today 01/13/25 1106 s CNM> Date _ Suyapa Godinez CNM Cosigner Signature: Date (if applicable) CC: ~ [facility]06-27-2025 Evaluation note* Diagnosis Onset Date Resolution Status Admit Date Gestational hypertension acute January 03, 2025 2:52pm Hemorrhoids acute January 03 2:52pm Lymphocytic colitis acute January 03, 2025 2:52pm Perianal candidiasis acute January 03, 2025 2:52pm acute January 03 2:52pm Rectal pain acute January 03 2:52pm Supervision of high-risk acute January 03, 2025 2:52pm Chronic anemia chronic January 03, 2025 2:52pm Abdominal pain resolved January 03, 2025 2:52pm Abnormal glucose affecting resolved January 03, 2025 2:52pm History of miscarriage, currently resolved January 03 2:52pm Hx of pre-eclampsia in prior , currently resolved Ju ne 2024 2:52pm Hx of twin in prio r resolved January 03, 2025 2:52pm Inclusion cyst of vulva resolved J une 2024 2:52pm Obesity affecting resolved January 03, 2025 2:52pm Pelvic floor weakness in female resolved January 03, 2025 2:52pm Short interval between pregnancies affecting in first trimester, resolved Ju ne 2024 2:52pm Advanced maternal age (AMA) in deleted January 03, 2025 2:52pm Gestational hypertension acute January 13, 2025 10:41am Hemorrhoids acute January 13 10:41am Lymphocytic colitis acute January 13, 2025 10:41am Perianal candidiasis acute January 13, 2025 10:41am acute January 13, 2025 10:41am Rectal pain acute January 13 10:41am Supervision of high-risk acute January 13, 2025 1 0:41am Chronic anemia chronic January 13, 2025 10:41am Abdominal pain resolved January 13, 2025 10:41am Abnormal glucose affecting resolved January 13, 2025 1 0:41am Advanced maternal age in multigravida resolved January 13, 2025 1 0:41am History of miscarriage, currently resolved January 13 10:41am Hx of pre-eclampsia in prior , currently resolved Ju ly 2024 10:41am Hx of twin in prio r resolved January 13, 2025 1 0:41am Inclusion cyst of vulva resolved J sunita 2024 10:41am Obesity affecting resolved January 13, 2025 10:41am Pelvic floor weakness in female resolved January 13, 2025 1 0:41am Short interval between pregnancies affecting in first trimester, resolved Ju ly 2024 10:41am Gestational hypertension acute January 29, 2025 9:53am Hemorrhoids acute January 29 9:53am Lymphocytic colitis acute January 29, 2025 9:53am Perianal candidiasis acute January 29, 2025 9:53am acute January 29 9:53am Rectal pain acute January 29 9:53am Supervision of high-risk acute January 29, 2025 9:53am Chronic anemia chronic January 29, 2025 9:53am Abdominal pain resolved January 29, 2025 9:53am Abnormal glucose affecting resolved January 29, 2025 9:53am Advanced maternal age in multigravida resolved January 29, 2025 9:53am History of miscarriage, currently resolved January 29 9:53am Hx of pre-eclampsia in prior , currently resolved Ju ly 2024 9:53am Hx of twin in prio r resolved January 29, 2025 9:53am Inclusion cyst of vulva resolved J sunita 2024 9:53am Obesity affecting resolved January 29, 2025 9:53am Pelvic floor weakness in female resolved January 29, 2025 9:53am Short interval between pregnancies affecting in first trimester, resolved Ju ly 2024 9:53am Contraction, Romero Osman resolved February 07, 2025 11:50am Hx of pre-eclampsia in prior , currently resolved laura 2024 11:50am Gestational hypertension acute February 13, 2025 3:56pm Hemorrhoids acute February 13 025 3:56pm Lymphocytic colitis acute Febus t 2024 3:56pm Perianal candidiasis acute Febu 2024 3:56pm acute February 13 3:56pm Rectal pain acute February 13 025 3:56pm Supervision of high-risk acute February 13, 2025 3:56pm Chronic anemia chronic February 3:56pm Abdominal pain resolved February 3:56pm Abnormal glucose affecting resolved February 13, 2025 3:56pm Advanced maternal age in multigravida resolved February 13, 2025 3:56pm Contraction, Sandoval Osman resolved February 13, 2025 3:56pm History of miscarriage, currently resolved February 13 3:56pm Hx of pre-eclampsia in prior , currently resolved [facility] 2024 3:56pm Hx of twin in prio r resolved February 13, 2025 3:56pm Inclusion cyst of vulva resolved A ugust 2024 3:56pm LGA (large for gestational age) fetus resolved February 13, 2025 3:56pm Obesity affecting resolved February 13, 2025 3:56pm Pelvic floor weakness in female resolved February 13, 2025 3:56pm Short interval between pregnancies affecting in first trimester, resolved [facility] 2024 3:56pm Gestational hypertension acute February 14, 2025 9:28pm Hemorrhoids acute February 14, 2 025 9:28pm Lymphocytic colitis acute Augus t 2024 9:28pm Perianal candidiasis acute Febu st 2024 9:28pm acute February 14 9:28pm Rectal pain acute February 14 025 9:28pm Supervision of high-risk acute February 14, 2025 9:28pm Chronic anemia chronic February 9:28pm Abdominal pain resolved February 9:28pm Abnormal glucose affecting resolved February 14, 2025 9:28pm Advanced maternal age in multigravida resolved February 14, 2025 9:28pm Contraction, Sandoval Osman resolved February 14, 2025 9:28pm Decreased movement resolved February 14, 2025 9:28pm History of miscarriage, currently resolved February 14 025 9:28pm Hx of pre-eclampsia in prior , currently resolved laura 2024 9:28pm Hx of twin in prio r resolved February 14, 2025 9:28pm Inclusion cyst of vulva resolved A ugust 2024 9:28pm LGA (large for gestational age) fetus resolved February 14, 2025 9:28pm Obesity affecting resolved February 14, 2025 9:28pm Pelvic floor weakness in female resolved February 14, 2025 9:28pm Proteinuria affecting resolved February 14, 2025 9:28pm Short interval between pregnancies affecting in first trimester, resolved [facility] 2024 9:28pm Gestational hypertension acute February 18, 2025 2:24pm Hemorrhoids acute February 18, 2025 2:24pm Lymphocytic colitis acute Febus t 2024 2:24pm Perianal candidiasis acute Febu st 2024 2:24pm acute February 18, 025 2:24pm Rectal pain acute February 18, 2025 2:24pm Supervision of high-risk acute February 18 2:24pm Chronic anemia chronic February 2:24pm Abdominal pain resolved February 2:24pm Abnormal glucose affecting resolved February 18 2:24pm Advanced maternal age in multigravida resolved February 18 2:24pm Contraction, Sandoval Osman resolved February 18, 2025 2:24pm History of miscarriage, currently resolved February 18, 2025 2:24pm Hx of pre-eclampsia in prior , currently resolved [facility] 2024 2:24pm Hx of twin in prio r resolved February 18 2:24pm Inclusion cyst of vulva resolved A 2024 2:24pm LGA (large for gestational age) fetus resolved February 18 2:24pm Obesity affecting resolved February 18, 2025 2:24pm Pelvic floor weakness in female resolved February 18 2:24pm Proteinuria affecting resolved February 18 2:24pm Short interval between pregnancies affecting in first trimester, resolved 2024 2:24pm Gestational hypertension acute February 27, 2025 2:48pm Hemorrhoids acute February 27, 2025 2:48pm Lymphocytic colitis acute Febus t 2024 2:48pm Perianal candidiasis acute 2024 2:48pm acute February 27, 2:48pm Rectal pain acute February 27, 2025 2:48pm Supervision of high-risk acute February 27 2:48pm Chronic anemia chronic February 2:48pm Abdominal pain resolved February 2:48pm Abnormal glucose affecting resolved February 27 2:48pm Advanced maternal age in multigravida resolved February 27 2:48pm Breech presentation resolved 2024 2:48pm Contraction, Sandoval Osman resolved February 27, 2025 2:48pm History of miscarriage, currently resolved February 27, 2025 2:48pm Hx of pre-eclampsia in prior , currently resolved 2024 2:48pm Hx of twin in prio r resolved February 27 2:48pm Inclusion cyst of vulva resolved A 2024 2:48pm LGA (large for gestational age) fetus resolved February 27 2:48pm Obesity affecting resolved February 27, 2025 2:48pm Pelvic floor weakness in female resolved February 27 2:48pm Proteinuria affecting resolved February 27 2:48pm Short interval between pregnancies affecting in first trimester, resolved 2024 2:48pm Gestational hypertension acute March 05, 2025 1:59pm Hemorrhoids acute March 05, 2025 1:59pm Lymphocytic colitis acute Augus t 2024 1:59pm Perianal candidiasis acute Febu st 2024 1:59pm acute March 05, 2 025 1:59pm Rectal pain acute March 05, 2025 1:59pm Supervision of high-risk acute March 05 1:59pm Chronic anemia chronic February 1:59pm Abdominal pain resolved February 1:59pm Abnormal glucose affecting resolved March 05 1:59pm Advanced maternal age in multigravida resolved March 05 1:59pm Contraction, Sandoval Osman resolved March 05, 2025 1:59pm History of miscarriage, currently resolved March 05, 2025 1:59pm Hx of pre-eclampsia in prior , currently resolved [facility] 2024 1:59pm Hx of twin in prio r resolved March 05 1:59pm Inclusion cyst of vulva resolved A ugust 2024 1:59pm LGA (large for gestational age) fetus resolved March 05 1:59pm Obesity affecting resolved March 05, 2025 1:59pm Pelvic floor weakness in female resolved March 05 1:59pm Proteinuria affecting resolved March 05 1:59pm Short interval between pregnancies affecting in first trimester, resolved [facility] 2024 1:59pm Gestational hypertension acute March 06, 2025 3:40pm Hemorrhoids acute March 06, 2025 3:40pm Lymphocytic colitis acute Augus t 2024 3:40pm Perianal candidiasis acute Febu st 2024 3:40pm acute March 06, 2 025 3:40pm Rectal pain acute March 06, 2025 3:40pm Supervision of high-risk acute March 06 3:40pm Chronic anemia chronic February 3:40pm Abdominal pain resolved February 3:40pm Abnormal glucose affecting resolved March 06 3:40pm Advanced maternal age in multigravida resolved March 06 3:40pm Contraction, Sandoval Osman resolved March 06, 2025 3:40pm History of miscarriage, currently resolved March 06, 2025 3:40pm Hx of pre-eclampsia in prior , currently resolved [facility] 2024 3:40pm Hx of twin in prio r resolved March 06 3:40pm Inclusion cyst of vulva resolved A ugust 2024 3:40pm LGA (large for gestational age) fetus resolved March 06 3:40pm Obesity affecting resolved March 06, 2025 3:40pm Pelvic floor weakness in female resolved March 06 3:40pm Proteinuria affecting resolved March 06 3:40pm Short interval between pregnancies affecting in first trimester, resolved [facility] 2024 3:40pm acute March 06, 2 025 4:35pm Supervision of high-risk acute March 06 4:35pm (spontaneous vaginal delivery) acute March 06 4:35pm Abdominal pain resolved February 4:35pm Abnormal glucose affecting resolved March 06 4:35pm Advanced maternal age in multigravida resolved March 06 4:35pm Contraction, Sandoval Osman resolved March 06, 2025 4:35pm Encounter for induction of labor resolved March 06 4:35pm History of miscarriage, currently resolved March 06, 2025 4:35pm Hx of pre-eclampsia in prior , currently resolved [facility] 2024 4:35pm Hx of twin in prio r resolved March 06 4:35pm Inclusion cyst of vulva resolved A ugust 2024 4:35pm LGA (large for gestational age) fetus resolved March 06 4:35pm Obesity affecting resolved March 06, 2025 4:35pm Pelvic floor weakness in female resolved March 06 4:35pm Proteinuria affecting resolved March 06 4:35pm Short interval between pregnancies affecting in first trimester, resolved [facility] 2024 4:35pm Unstable lie of fetus resolved Feb us2024 4:35pm Mastitis associated with acute March 13, 2 025 9:25am [facility] Work Phone: 1(850) 385-430805-28-2025 Evaluation note* Diagnosis Onset Date Resolution Status Admit Date Abdominal pain acute December 04, 2024 2:48pm [...] of pre-eclampsia in prior , currently acute ne 2024 2:52pm Hx of twin in [...] pregnancies affecting in first trimester, acute 2024 2:52pm Supervision of high-risk acute January [...] multigravida acute February 13, 2025 3:56pm Contraction, Sandoval Osman acute February 13, 2025 3:56pm Gestational [...] 13 3:56pm Rectal pain acute February 13, 025 3:56pm Short interval between pregnancies affecting in first trimester, acute Au 2024 3:56pm Supervision of high-risk acute February 13, 2025 3:56pm Chronic anemia chronic February 3:56pm Abdominal pain acute February 9:28pm Abnormal glucose affecting acute February 14, 2025 9:28pm Advanced maternal age in multigravida acute February 14, 2025 9:28pm Contraction, Sandoval Osman acute February 14, 2025 9:28pm Gestational [...] pregnancies affecting in first trimester, acute 2024 9:28pm Supervision of high-risk acute February [...] acute February 18 2:24pm Lymphocytic colitis acute Augus t 2024 2:24pm Obesity affecting acute February 18, 2025 2:24pm Pelvic floor weakness in female acute February 18 2:24pm Perianal candidiasis acute 2024 2:24pm acute February 18, 2 025 [...] in multigravida acute February 27 2:48pm Contraction, Sandoval Osman acute February 27, 2025 2:48pm Gestational hypertension acute February 27, 2025 2:48pm Hemorrhoids acute February 27, 2025 2:48pm History of miscarriage, currently February 27, 2025 2:48pm Hx of pre-eclampsia in prior , currently acute 2024 2:48pm Hx of twin in prio r acute February 27 2:48pm Inclusion cyst of vulva acute A ug2024 2:48pm LGA (large for gestational age) fetus acute February 27 2:48pm Lymphocytic colitis acute 2024 2:48pm Obesity affecting acute February 27, 2025 2:48pm Pelvic floor weakness in female acute February 27 2:48pm Perianal candidiasis acute 2024 2:48pm acute February 27, 2 025 2:48pm Proteinuria affecting acute February 27 2:48pm Rectal pain acute February 27, 2025 2:48pm Short interval between pregnancies affecting in first trimester, acute Au 2024 2:48pm Supervision of high-risk acute February 27 2:48pm Chronic anemia chronic February 2:48pm Breech presentation resolved 2024 2:48pm Abdominal pain acute February 1:59pm Abnormal glucose affecting acute March 05 1:59pm Advanced maternal age in multigravida acute March 05 1:59pm Contraction, Sandoval Osman acute March 05, 2025 1:59pm Gestational hypertension acute March 05, 2025 1:59pm Hemorrhoids acute March 05, 2025 1:59pm History of miscarriage, currently acute March 05, 2025 1:59pm Hx of pre-eclampsia in prior , currently acute [facility] 2024 1:59pm Hx of twin in prio r acute March 05 1:59pm Inclusion cyst of vulva acute A ugust 2024 1:59pm LGA (large for gestational age) fetus acute March 05 1:59pm Lymphocytic colitis acute Augus 2024 1:59pm Obesity affecting acute March 05, 2025 1:59pm Pelvic floor weakness in female acute March 05 1:59pm Perianal candidiasis acute 2024 1:59pm acute March 05, 1:59pm Proteinuria affecting acute March 05 1:59pm Rectal pain acute March 05, 2025 1:59pm Short interval between pregnancies affecting in first trimester, acute [facility] 2024 1:59pm Supervision of high-risk acute March 05 1:59pm Chronic anemia chronic February 1:59pm Abdominal pain acute February 3:40pm Abnormal glucose affecting acute March 06 3:40pm Advanced maternal age in multigravida acute March 06 3:40pm Contraction, Romero Osman acute March 06, 2025 3:40pm Gestational hypertension acute March 06, 2025 3:40pm Hemorrhoids acute March 06, 2025 3:40pm History of miscarriage, currently acute March 06, 2025 3:40pm Hx of pre-eclampsia in prior , currently acute [facility] 2024 3:40pm Hx of twin in prio r acute March 06 3:40pm Inclusion cyst of vulva acute A ugust 2024 3:40pm LGA (large for gestational age) fetus acute March 06 3:40pm Lymphocytic colitis acute Augus 2024 3:40pm Obesity affecting acute March 06, 2025 3:40pm Pelvic floor weakness in female acute March 06 3:40pm Perianal candidiasis acute 2024 3:40pm acute March 06, 2 025 3:40pm Proteinuria affecting acute March 06 3:40pm Rectal pain acute March 06, 2025 3:40pm Short interval between pregnancies affecting in first trimester, acute Au [facility] 2024 3:40pm Supervision of high-risk acute March 06 3:40pm Chronic anemia chronic February 3:40pm Abdominal pain acute February 4:35pm Abnormal glucose affecting acute March 06 4:35pm Advanced maternal age in multigravida acute March 06 4:35pm Contraction, Romero Osman acute March 06, 2025 4:35pm Encounter for induction of labor acute March 06 4:35pm History of miscarriage, currently acute March 06, 2025 4:35pm Hx of pre-eclampsia in prior , currently acute [facility] 2024 4:35pm Hx of twin in prio r acute March 06 4:35pm Inclusion cyst of vulva acute A ugust 2024 4:35pm LGA (large for gestational age) fetus acute March 06 4:35pm Obesity affecting acute March 06, 2025 4:35pm Pelvic floor weakness in female acute March 06 4:35pm acute March 06, 2 025 4:35pm Proteinuria affecting acute March 06 4:35pm Short interval between pregnancies affecting in first trimester, acute Au [facility] 2024 4:35pm Supervision of high-risk acute March 06 4:35pm (spontaneous vaginal delivery) acute March 06 4:35pm Unstable lie of fetus acute Feb 4:35pm [facility] Work Phone: 1(578) 179-998205-28-2025 Evaluation note* Diagnosis Onset Date Resolution Status Admit Date Gestational hypertension acute December 04, 2024 2:48pm Hemorrhoids acute December 04 2:48pm Lymphocytic colitis acute November 082024 2:48pm Perianal candidiasis acute December 04, 2024 2:48pm acute December 04, 2024 2:48pm Rectal pain acute December 04 2:48pm Supervision of high-risk acute December 04, 2024 2 :48pm Chronic anemia chronic December 04, 2024 2:48pm Abdominal pain resolved December 04, 2024 2:48pm History of miscarriage, currently resolved December 04 2:48pm Hx of pre-eclampsia in prior , currently resolved Ma y 2024 2:48pm Hx of twin in prio r resolved December 04, 2024 2 :48pm Inclusion cyst of vulva resolved M ay 2024 2:48pm Obesity affecting resolved December 04, 2024 2:48pm Pelvic floor weakness in female resolved December 04, 2024 2 :48pm Short interval between pregnancies affecting in first trimester, resolved Ma y 2024 2:48pm Advanced maternal age (AMA) in deleted December 04, 2024 2 :48pm Gestational hypertension acute January 03, 2025 2:52pm Hemorrhoids acute January 03 2:52pm Lymphocytic colitis acute January 03, 2025 2:52pm Perianal candidiasis acute January 03, 2025 2:52pm acute January 03 2:52pm Rectal pain acute January 03 2:52pm Supervision of high-risk acute January 03, 2025 2:52pm Chronic anemia chronic January 03, 2025 2:52pm Abdominal pain resolved January 03, 2025 2:52pm Abnormal glucose affecting resolved January 03, 2025 2:52pm History of miscarriage, currently resolved January 03 2:52pm Hx of pre-eclampsia in prior , currently resolved Yessi ne 2024 2:52pm Hx of twin in prio r resolved January 03, 2025 2:52pm Inclusion cyst of vulva resolved J une 2024 2:52pm Obesity affecting resolved January 03, 2025 2:52pm Pelvic floor weakness in female resolved January 03, 2025 2:52pm Short interval between pregnancies affecting in first trimester, resolved Yessi haji 2024 2:52pm Advanced maternal age (AMA) in deleted January 03, 2025 2:52pm Gestational hypertension acute January 13, 2025 10:41am Hemorrhoids acute January 13 10:41am Lymphocytic colitis acute January 13, 2025 10:41am Perianal candidiasis acute January 13, 2025 10:41am acute January 13, 2025 10:41am Rectal pain acute January 13 10:41am Supervision of high-risk acute January 13, 2025 1 0:41am Chronic anemia chronic January 13, 2025 10:41am Abdominal pain resolved January 13, 2025 10:41am Abnormal glucose affecting resolved January 13, 2025 1 0:41am Advanced maternal age in multigravida resolved January 13, 2025 1 0:41am History of miscarriage, currently resolved January 13 10:41am Hx of pre-eclampsia in prior , currently resolved Ju ly 2024 10:41am Hx of twin in prio r resolved January 13, 2025 1 0:41am Inclusion cyst of vulva resolved Jonah manceray 2024 10:41am Obesity affecting resolved January 13, 2025 10:41am Pelvic floor weakness in female resolved January 13, 2025 1 0:41am Short interval between pregnancies affecting in first trimester, resolved Ju ly 2024 10:41am Gestational hypertension acute January 29, 2025 9:53am Hemorrhoids acute January 29 9:53am Lymphocytic colitis acute January 29, 2025 9:53am Perianal candidiasis acute January 29, 2025 9:53am acute January 29 9:53am Rectal pain acute January 29 9:53am Supervision of high-risk acute January 29, 2025 9:53am Chronic anemia chronic January 29, 2025 9:53am Abdominal pain resolved January 29, 2025 9:53am Abnormal glucose affecting resolved January 29, 2025 9:53am Advanced maternal age in multigravida resolved January 29, 2025 9:53am History of miscarriage, currently resolved January 29 9:53am Hx of pre-eclampsia in prior , currently resolved Ju ly 2024 9:53am Hx of twin in prio r resolved January 29, 2025 9:53am Inclusion cyst of vulva resolved J sunita 2024 9:53am Obesity affecting resolved January 29, 2025 9:53am Pelvic floor weakness in female resolved January 29, 2025 9:53am Short interval between pregnancies affecting in first trimester, resolved Ju ly 2024 9:53am Contraction, Sandoval Osman resolved February 07, 2025 11:50am Hx of pre-eclampsia in prior , currently resolved 2024 11:50am Gestational hypertension acute February 13, 2025 3:56pm Hemorrhoids acute February 13 025 3:56pm Lymphocytic colitis acute Febus t 2024 3:56pm Perianal candidiasis acute 2024 3:56pm acute February 13 3:56pm Rectal pain acute February 13 025 3:56pm Supervision of high-risk acute February 13, 2025 3:56pm Chronic anemia chronic February 3:56pm Abdominal pain resolved February 3:56pm Abnormal glucose affecting resolved February 13, 2025 3:56pm Advanced maternal age in multigravida resolved February 13, 2025 3:56pm Contraction, Sandoval Osman resolved February 13, 2025 3:56pm History of miscarriage, currently resolved February 13 3:56pm Hx of pre-eclampsia in prior , currently resolved [facility] 2024 3:56pm Hx of twin in prio r resolved February 13, 2025 3:56pm Inclusion cyst of vulva resolved A ugust 2024 3:56pm LGA (large for gestational age) fetus resolved February 13, 2025 3:56pm Obesity affecting resolved February 13, 2025 3:56pm Pelvic floor weakness in female resolved February 13, 2025 3:56pm Short interval between pregnancies affecting in first trimester, resolved 2024 3:56pm Gestational hypertension acute February 14, 2025 9:28pm Hemorrhoids acute February 14, 025 9:28pm Lymphocytic colitis acute Augus t 2024 9:28pm Perianal candidiasis acute Febu st 2024 9:28pm acute February 14 9:28pm Rectal pain acute February 14, 2 025 9:28pm Supervision of high-risk acute February 14, 2025 9:28pm Chronic anemia chronic February 9:28pm Abdominal pain resolved February 9:28pm Abnormal glucose affecting resolved February 14, 2025 9:28pm Advanced maternal age in multigravida resolved February 14, 2025 9:28pm Contraction, Sandoval Osman resolved February 14, 2025 9:28pm Decreased movement resolved February 14, 2025 9:28pm History of miscarriage, currently resolved February 14, 025 9:28pm Hx of pre-eclampsia in prior , currently resolved Au laura 2024 9:28pm Hx of twin in prio r resolved February 14, 2025 9:28pm Inclusion cyst of vulva resolved A ugust 2024 9:28pm LGA (large for gestational age) fetus resolved February 14, 2025 9:28pm Obesity affecting resolved February 14, 2025 9:28pm Pelvic floor weakness in female resolved February 14, 2025 9:28pm Proteinuria affecting resolved February 14, 2025 9:28pm Short interval between pregnancies affecting in first trimester, resolved Au laura 2024 9:28pm Gestational hypertension acute February 18, 2025 2:24pm Hemorrhoids acute February 18, 2025 2:24pm Lymphocytic colitis acute Febus t 2024 2:24pm Perianal candidiasis acute Febu st 2024 2:24pm acute February 18, 025 2:24pm Rectal pain acute February 18, 2025 2:24pm Supervision of high-risk acute February 18 2:24pm Chronic anemia chronic February 2:24pm Abdominal pain resolved February 2:24pm Abnormal glucose affecting resolved February 18 2:24pm Advanced maternal age in multigravida resolved February 18 2:24pm Contraction, Sandoval Osman resolved February 18, 2025 2:24pm History of miscarriage, currently resolved February 18, 2025 2:24pm Hx of pre-eclampsia in prior , currently resolved Au laura 2024 2:24pm Hx of twin in prio r resolved February 18 2:24pm Inclusion cyst of vulva resolved A ugust 2024 2:24pm LGA (large for gestational age) fetus resolved February 18 2:24pm Obesity affecting resolved February 18, 2025 2:24pm Pelvic floor weakness in female resolved February 18 2:24pm Proteinuria affecting resolved February 18 2:24pm Short interval between pregnancies affecting in first trimester, resolved 2024 2:24pm Gestational hypertension acute February 27, 2025 2:48pm Hemorrhoids acute February 27, 2025 2:48pm Lymphocytic colitis acute Febus 2024 2:48pm Perianal candidiasis acute 2024 2:48pm acute February 27, 2 025 2:48pm Rectal pain acute February 27, 2025 2:48pm Supervision of high-risk acute February 27 2:48pm Chronic anemia chronic February 2:48pm Abdominal pain resolved February 2:48pm Abnormal glucose affecting resolved February 27 2:48pm Advanced maternal age in multigravida resolved February 27 2:48pm Breech presentation resolved 2024 2:48pm Contraction, Romero Osman resolved February 27, 2025 2:48pm History of miscarriage, currently resolved February 27, 2025 2:48pm Hx of pre-eclampsia in prior , currently resolved 2024 2:48pm Hx of twin in prio r resolved February 27 2:48pm Inclusion cyst of vulva resolved A 2024 2:48pm LGA (large for gestational age) fetus resolved February 27 2:48pm Obesity affecting resolved February 27, 2025 2:48pm Pelvic floor weakness in female resolved February 27 2:48pm Proteinuria affecting resolved February 27 2:48pm Short interval between pregnancies affecting in first trimester, resolved 2024 2:48pm Gestational hypertension acute March 05, 2025 1:59pm Hemorrhoids acute March 05, 2025 1:59pm Lymphocytic colitis acute Febus t 2024 1:59pm Perianal candidiasis acute Febu st 2024 1:59pm acute March 05, 2 025 1:59pm Rectal pain acute March 05, 2025 1:59pm Supervision of high-risk acute March 05 1:59pm Chronic anemia chronic February 1:59pm Abdominal pain resolved February 1:59pm Abnormal glucose affecting resolved March 05 1:59pm Advanced maternal age in multigravida resolved March 05 1:59pm Contraction, Sandoval Osman resolved March 05, 2025 1:59pm History of miscarriage, currently resolved March 05, 2025 1:59pm Hx of pre-eclampsia in prior , currently resolved Au laura 2024 1:59pm Hx of twin in prio r resolved March 05 1:59pm Inclusion cyst of vulva resolved A ugust 2024 1:59pm LGA (large for gestational age) fetus resolved March 05 1:59pm Obesity affecting resolved March 05, 2025 1:59pm Pelvic floor weakness in female resolved March 05 1:59pm Proteinuria affecting resolved March 05 1:59pm Short interval between pregnancies affecting in first trimester, resolved Au laura 2024 1:59pm Gestational hypertension acute March 06, 2025 3:40pm Hemorrhoids acute March 06, 2025 3:40pm Lymphocytic colitis acute t 2024 3:40pm Perianal candidiasis acute Febu st 2024 3:40pm acute March 06, 2 025 3:40pm Rectal pain acute March 06, 2025 3:40pm Supervision of high-risk acute March 06 3:40pm Chronic anemia chronic February 3:40pm Abdominal pain resolved February 3:40pm Abnormal glucose affecting resolved March 06 3:40pm Advanced maternal age in multigravida resolved March 06 3:40pm Contraction, Sandoval Osman resolved March 06, 2025 3:40pm History of miscarriage, currently resolved March 06, 2025 3:40pm Hx of pre-eclampsia in prior , currently resolved Au laura 2024 3:40pm Hx of twin in prio r resolved March 06 3:40pm Inclusion cyst of vulva resolved A ugust 2024 3:40pm LGA (large for gestational age) fetus resolved March 06 3:40pm Obesity affecting resolved March 06, 2025 3:40pm Pelvic floor weakness in female resolved March 06 3:40pm Proteinuria affecting resolved March 06 3:40pm Short interval between pregnancies affecting in first trimester, resolved Au laura 2024 3:40pm acute March 06, 2 025 4:35pm Supervision of high-risk acute March 06 4:35pm (spontaneous vaginal delivery) acute March 06 4:35pm Abdominal pain resolved February 4:35pm Abnormal glucose affecting resolved March 06 4:35pm Advanced maternal age in multigravida resolved March 06 4:35pm Contraction, Sandoval Osman resolved March 06, 2025 4:35pm Encounter for induction of labor resolved March 06 4:35pm History of miscarriage, currently resolved March 06, 2025 4:35pm Hx of pre-eclampsia in prior , currently resolved Au laura 2024 4:35pm Hx of twin in prio r resolved March 06 4:35pm Inclusion cyst of vulva resolved A ugust 2024 4:35pm LGA (large for gestational age) fetus resolved March 06 4:35pm Obesity affecting resolved March 06, 2025 4:35pm Pelvic floor weakness in female resolved March 06 4:35pm Proteinuria affecting resolved March 06 4:35pm Short interval between pregnancies affecting in first trimester, resolved Au laura 2024 4:35pm Unstable lie of fetus resolved Feb ust 2024 4:35pm Mastitis associated with acute March 13 025 9:25am [facility] Work Phone: 1(130) 646-517205-28-2025 [facility] [address] [place] [address], [address] [place] [address] OFFICE VISIT Date of Service: 12/04/24 MR#: [id number] Acct: [id number] Name: MANDI VALENTE Rep #: [id number] : 1990 Provider: Dr. Bernadine Rashid DO Age/Sex: 34/F [place] [facility] 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 Date Name GA/Weeks Outcome Route Bth Weight Infant Gen Labor Lgth Anes thes ia Del Locatn Provider FOB 04/05/18 Vinsen 41 live - full term 9#7oz Male 26 hrs epid ural [employer] Katkeily Madsen Alvarez 11/01/19 10 spontaneous 08/10/20 Lakisha 37 live - full term 5#14oz Female 10 HR epid ural [employer] Jenni Pino 08/10/20 [place] 37 live - full term 6#4oz Male 10 HR epid ural [employer] Jenni Pino 03/19/24 Elaine 39 live - full term 8lbs 2oz Female [employer] Dr. Gleason Delivery Date: 04/05/18 [...] presents for routine OB visit. OB Visit RASMES Calculator Estimated Delivery Date Method Current WG [...] Negative -?-?-?-?-?-?-?-?--?-?-?-?- Negative 180 -?-?-?-?-?-?-?-?-?-?-?-?- KW- no vb/colton ng. discussed starting atb and pt would [...] no vb/lof/ct x. cyst is bothersome again. [facility] US scheduled KW- no vb/lof/ctx. cyst is b othersome again discussed with SM. [facility] US scheduled 10/15/24 -?-?--?-?-?-?-?-?-?-?-?-?- 16w 5d 200 lb [...] Movement Monitoring, Signs and Symptoms of Preeclampsia, [place] Education and Family Medical Leave or Disability [...] Cosigner Signature: Date (if applicable) CC: ~ [facility]05-28-2025 Progress note Author Reina Romero [facility] Services Note Date/Time December 04, 2024 3:24p [facility] [address] [place] [address], [address] [place] [address] OFFICE VISIT Date of Service: 12/04/24 MR#: [id number] Acct: [id number] Name: MANDI VALENTE Rep #: [id number] : 1990 Provider: Dr. Bernadine Rashid DO Age/Sex: 34/F [place] [facility] 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 Date Name GA/Weeks Outcome Route Bth Weight Gen Labor Lgth Anes thes ia Del Locatn Provider FOB 04/05/18 Vinsen 41 live - full term 9#7oz Male 26 hrs epid ural [employer] Shey Madsen Alvarez 11/01/19 10 spontaneous 08/10/20 Lakisha 37 live - full term 5#14oz Female 10 HR epid ural [employer] [employer] Jenni Pino 08/10/20 [place] 37 live - full term 6#4oz Male 10 HR epid ural [employer] Jenni Pino 03/19/24 Elaine 39 live - full term 8lbs 2oz Female [employer] [facility] [employer] Dr. Gleason Delivery Date: 04/05/18 Last Updated by: Merna Bermeo IOL post dates Delivery Date: 11/01/19 Last Updated by: Merna eBrmeo D&C, blighted Ovum Delivery Date: 08/10/20 Last [...] no vb/lof/ct x. cyst is bothersome again. [facility] scheduled KW- no vb/lof/ctx. cyst is b othersome again discussed with . [facility] US scheduled 10/15/24 -?-?--?-?-?-?-?-?-?-?-?-?- 16w 5d 200 lb [...] Movement Monitoring, Signs and Symptoms of Preeclampsia, [place] Education and Family Medical Leave or Disability [...] Status: Acute Comment: PRR,, RAMSES 03/27/25, boy,[facility] [place], Lakisha & Earnestine(Twins), Elaine Alvarez will be 39 weeks on Elaine's -. requests IOL on this day. (6) : [...] Cosigner Signature: Date (if applicable) CC: ~ [place] [employer] Work Phone: 1(936) 195-188805-01-2025 Evaluation note* Diagnosis Onset Date Resolution Status Admit Date Abdominal pain acute November 07, 025 9:28am [...] M ay 2024 9:28am Lymphocytic colitis acute May 1 st, 2025 9:28am Obesity affecting acute November 07, 2024 [...] 9: 28am Chronic anemia chronic November 07, 2 025 9:28am Advanced maternal [...] affecting in first trimester, acute January 03, 025 2:52pm Supervision of high-risk acute January [...] affecting in first trimester, acute January 29, 9:53am Supervision of high-risk acute January 29, 2025 9:53am Chronic anemia chronic January 29, 2025 9:53am Contraction, Sandoval Osman acute February 07, 2025 11:50am Hx of pre-eclampsia in prior , currently acute [place] 2024 11:50am Abdominal pain acute February 3:56pm Abnormal glucose affecting acute February 13, 2025 3:56pm Advanced maternal age in multigravida acute February 13, 2025 3:56pm Contraction, Sandoval Osman acute February 13, 2025 3:56pm Gestational [...] 13, 2025 3:56pm Perianal candidiasis acute Febu 2024 3:56pm acute February 13 3:56pm Rectal pain acute February 13 025 3:56pm Short interval between pregnancies affecting in first trimester, acute February 13, 2025 3:56pm Supervision of high-risk acute February 13, 2025 3:56pm Chronic anemia chronic February 3:56pm [facility] Work Phone: 1([phone]) 418-966805-01-2025 Evaluation note* Diagnosis Onset Date Resolution Status [...] of pre-eclampsia in prior , currently acute [facility] 2024 9:53am Hx of twin in prio [...] anemia chronic January 29, 2025 9:53am Contraction, Sandoval Osman acute February 07, 2025 11:50am Hx of pre-eclampsia in prior , currently acute [place] 2024 11:50am Abdominal pain acute February 3:56pm Abnormal glucose affecting acute February 13, 2025 3:56pm Advanced maternal age in multigravida acute February 13, 2025 3:56pm Contraction, Sandoval Osman acute February 13, 2025 3:56pm Gestational [...] February 13, 2025 3:56pm Lymphocytic colitis acute Febus t 2024 3:56pm Obesity affecting acute February [...] multigravida acute February 14, 2025 9:28pm Contraction, Sandoval Osman acute February 14, 2025 9:28pm Decreased movement acute February 14, 2025 9:28pm Gestational hypertension acute February 14, 2025 9:28pm Hemorrhoids acute February 14 025 9:28pm History of miscarriage, currently acute February 14 025 9:28pm Hx of pre-eclampsia in prior , currently acute [place] 2024 9:28pm Hx of twin in prio r acute February 14, 2025 9:28pm Inclusion cyst of vulva acute A ugust 2024 9:28pm LGA (large for gestational a ge) fetus acute February 14, 2025 9:28pm Lymphocytic colitis acute Augus t 2024 9:28pm Obesity affecting acute February 14, 2025 9:28pm Pelvic floor weakness in female acut e February 14, 2025 9:28pm Perianal candidiasis acute Augu st 2024 9:28pm acute February 14 9:28pm Proteinuria affecting acut e February 14, 2025 9:28pm Rectal pain acute February 14 025 9:28pm Short interval between pregnancies affecting in first trimester, acute February 14, 2025 9:28pm Supervision of high-risk acute February 14, 2025 9:28pm Chronic anemia chronic February 9:28pm [facility] Work Phone: 1(858) 418-373005-01-2025 Evaluation note* Diagnosis Onset Date Resolution Status Admit Date Abdominal pain acute November 07 025 9:28am [...] between pregnancies affecting in first trimester, acute [facility] 2024 2:52pm Supervision of high-risk acute January [...] anemia chronic January 29, 2025 9:53am Contraction, Sandoval Osmna acute February 07, 2025 11:50am Hx of pre-eclampsia in prior , currently acute Au 2024 11:50am Abdominal pain acute February 3:56pm Abnormal glucose affecting acute February 13, 2025 3:56pm Advanced maternal age in multigravida acute February 13, 2025 3:56pm Contraction, Romero Osman acute February 13, 2025 3:56pm Gestational hypertension acute February 13, 2025 3:56pm Hemorrhoids acute February 13, 3:56pm History of miscarriage, currently February 13 3:56pm Hx of pre-eclampsia in [...] 13 3:56pm Rectal pain acute February 13, 025 3:56pm Short interval between pregnancies affecting in first trimester, acute Au 2024 3:56pm Supervision of high-risk acute February 13, 2025 3:56pm Chronic anemia chronic February 3:56pm Abdominal pain acute February 9:28pm Abnormal glucose affecting acute February 14, 2025 9:28pm Advanced maternal age in multigravida acute February 14, 2025 9:28pm Contraction, Sandoval Osman acute February 14, 2025 9:28pm Gestational hypertension acute February 14, 2025 9:28pm Hemorrhoids acute February 14, 025 9:28pm History of miscarriage, currently acute February 14 025 9:28pm Hx of pre-eclampsia in prior , currently acute 2024 9:28pm Hx of twin in prio r acute February 14, 2025 9:28pm Inclusion cyst of vulva acute A ug2024 9:28pm LGA (large for gestational age) fetus acute February 14, 2025 9:28pm Lymphocytic colitis acute Febus 2024 9:28pm Obesity affecting acute February 14, 2025 9:28pm Pelvic floor weakness in female acute February 14, 2025 9:28pm Perianal candidiasis acute 2024 9:28pm acute February 14 9:28pm Proteinuria affecting acute February 14, 2025 9:28pm Rectal pain acute February 14 025 9:28pm Short interval between pregnancies affecting in first trimester, acute 2024 9:28pm Supervision of high-risk acute February 14, 2025 9:28pm Chronic anemia chronic February 9:28pm Decreased movement resolved February 14, 2025 9:28pm Abdominal pain acute February 2:24pm Abnormal glucose affecting acute February 18 2:24pm Advanced maternal age in multigravida acute February 18 2:24pm Contraction, Sandoval Osman acute February 18, 2025 2:24pm Gestational [...] acute February 18 2:24pm Lymphocytic colitis acute Augus t 2024 2:24pm Obesity affecting acute February 18, 2025 2:24pm Pelvic floor weakness in female acute February 18 2:24pm Perianal candidiasis acute 2024 2:24pm acute Irvona 12th, 2 025 2:24pm Proteinuria affecting acute February 18 2:24pm Rectal pain acute February 18, 2025 2:24pm Short interval between pregnancies affecting in first trimester, acute Au 2024 2:24pm Supervision of high-risk acute February 18 2:24pm Chronic anemia chronic February 2:24pm [facility] Work Phone: 1([phone]) 105-175605-01-2025 Evaluation note* Diagnosis Onset Date Resolution Status [...] 2:52pm Inclusion cyst of vulva acute [facility] 2024 2:52pm Lymphocytic colitis acute January 03, 2025 2:52pm Obesity affecting acute January 03, 2025 2:52pm Pelvic floor weakness in female acute January 03, 2025 2:52pm Perianal candidiasis acute January 03, 2025 2:52pm acute January 03 2:52pm Rectal pain acute January 03 2:52pm Short interval between pregnancies affecting in first trimester, acute ne 2024 2:52pm Supervision of high-risk acute [...] between pregnancies affecting in first trimester, acute [facility] 2024 9:53am Supervision of high-risk acute January 29, 2025 9:53am Chronic anemia chronic January 29, 2025 9:53am Contraction, Sandoval Osman acute February 07, 2025 11:50am Hx of pre-eclampsia in prior , currently acute 2024 11:50am Abdominal pain acute February 3:56pm Abnormal glucose affecting acute February 13, 2025 3:56pm Advanced maternal age in multigravida acute February 13, 2025 3:56pm Contraction, Sandoval Osman acute February 13, 2025 3:56pm Gestational [...] February 13, 2025 3:56pm Lymphocytic colitis acute Febus t 2024 3:56pm Obesity affecting acute February [...] multigravida acute February 14, 2025 9:28pm Contraction, Sandoval Osman acute February 14, 2025 9:28pm Gestational [...] 14, 2025 9:28pm Rectal pain acute February 14, 025 9:28pm Short interval between pregnancies affecting in first trimester, acute Au 2024 9:28pm Supervision of high-risk acute February 14, 2025 9:28pm Chronic anemia chronic February 9:28pm Decreased movement resolved February 14, 2025 9:28pm Abdominal pain acute February 2:24pm Abnormal glucose affecting acute February 18 2:24pm Advanced maternal age in multigravida acute February 18 2:24pm Contraction, Sandoval Osman acute February 18, 2025 2:24pm Gestational [...] acute February 18 2:24pm Lymphocytic colitis acute Augus t 2024 2:24pm Obesity affecting acute February 18, 2025 2:24pm Pelvic floor weakness in female acute February 18 2:24pm Perianal candidiasis acute Febu st 2024 2:24pm acute February 18, 025 2:24pm Proteinuria affecting acute February 18 [...] 2:48pm Inclusion cyst of vulva acute A ugust 2024 2:48pm LGA (large for gestational age) fetus acute February 27 2:48pm Lymphocytic colitis acute t 2024 2:48pm Obesity affecting acute February 27, 2025 2:48pm Pelvic floor weakness in female acute February 27 2:48pm Perianal candidiasis acute st 2024 2:48pm acute February 27, 2 025 2:48pm Proteinuria affecting acute February 27 2:48pm Rectal pain acute February 27, 2025 2:48pm Short interval between pregnancies affecting in first trimester, acute 2024 2:48pm Supervision of high-risk acute February 27 2:48pm Chronic anemia chronic February 2:48pm [facility] Work Phone: 1(162) 890-191505-01-2025 Evaluation note* Diagnosis Onset Date Resolution Status [...] pregnancies affecting in first trimester, acute [place] 2024 2:52pm Supervision of high-risk acute January [...] anemia chronic January 29, 2025 9:53am Contraction, Sandoval Osman acute February 07, 2025 11:50am Hx [...] acute February 13 3:56pm Rectal pain acute Irvona 7th, 2 025 3:56pm Short interval between pregnancies affecting in first trimester, acute 2024 3:56pm Supervision of high-risk acute February 13, 2025 3:56pm Chronic anemia chronic February 3:56pm Abdominal pain acute February 9:28pm Abnormal glucose affecting acute February 14, 2025 9:28pm Advanced maternal age in multigravida acute February 14, 2025 9:28pm Contraction, Romero Osman acute February 14, 2025 9:28pm Gestational hypertension acute February 14, 2025 9:28pm Hemorrhoids acute February 14 025 9:28pm History of miscarriage, currently acute February 14 9:28pm Hx of pre-eclampsia in [...] pregnancies affecting in first trimester, acute 2024 9:28pm Supervision of high-risk acute February 14, 2025 9:28pm Chronic anemia chronic February 9:28pm Decreased movement resolved February 14, 2025 9:28pm Abdominal pain acute February 2:24pm Abnormal glucose affecting acute February 18 2:24pm Advanced maternal age in multigravida acute February 18 2:24pm Contraction, Sandoval Osman acute February 18, 2025 2:24pm Gestational [...] acute February 18 2:24pm Perianal candidiasis acute 2024 2:24pm acute February 18, 2 025 [...] age in multigravida acute February 27 2:48pm Breech presentation acute 2024 2:48pm Contraction, Romero Osman acute February 27, 2025 2:48pm Gestational hypertension acute February 27, 2025 2:48pm Hemorrhoids acute February 27, 2025 2:48pm History of miscarriage, currently acute February 27, 2025 2:48pm Hx of pre-eclampsia in prior , currently acute 2024 2:48pm Hx of twin in prio r acute February 27 2:48pm Inclusion cyst of vulva acute A 2024 2:48pm LGA (large for gestational age) fetus acute February 27 2:48pm Lymphocytic colitis acute 2024 2:48pm Obesity affecting acute February 27, 2025 2:48pm Pelvic floor weakness in female acute February 27 2:48pm Perianal candidiasis acute 2024 2:48pm acute February 27, 2 025 2:48pm Proteinuria affecting acute February 27 2:48pm Rectal pain acute February 27, 2025 2:48pm Short interval between pregnancies affecting in first trimester, acute Au 2024 2:48pm Supervision of high-risk acute February 27 2:48pm Chronic anemia chronic February 2:48pm [facility] Work Phone: 1([phone]) 243-722505-01-2025 Evaluation note* Diagnosis Onset Date Resolution Status [...] :48pm Inclusion cyst of vulva acute M 2024 2:48pm Lymphocytic colitis acute November 082024 [...] 2:52pm Inclusion cyst of vulva acute [facility] 2024 2:52pm Lymphocytic colitis acute January 03, 2025 2:52pm Obesity affecting acute January 03, 2025 2:52pm Pelvic floor weakness in female acute January 03, 2025 2:52pm Perianal candidiasis acute January 03, 2025 2:52pm acute January 03 2:52pm Rectal pain acute January 03 2:52pm Short interval between pregnancies affecting in first trimester, acute [facility] 2024 2:52pm Supervision of high-risk acute January [...] anemia chronic January 29, 2025 9:53am Contraction, Sandoval Osman acute February 07, 2025 11:50am Hx [...] multigravida acute February 14, 2025 9:28pm Contraction, Sandoval Osman acute February 14, 2025 9:28pm Gestational [...] 14, 2025 9:28pm Perianal candidiasis acute Febu 2024 9:28pm acute February 14 9:28pm Proteinuria affecting acute February 14, 2025 9:28pm Rectal pain acute February 14, 025 9:28pm Short interval between pregnancies affecting in first trimester, acute Au 2024 9:28pm Supervision of high-risk acute February 14, 2025 9:28pm Chronic anemia chronic February 9:28pm Decreased movement resolved February 14, 2025 9:28pm Abdominal pain acute February 2:24pm Abnormal glucose affecting acute February 18 2:24pm Advanced maternal age in multigravida acute February 18 2:24pm Contraction, Sandoval Osman acute February 18, 2025 2:24pm Gestational [...] February 18 2:24pm Perianal candidiasis acute Febu 2024 2:24pm acute February 18, 2 025 [...] in multigravida acute February 27 2:48pm Contraction, Sandoval Osman acute February 27, 2025 2:48pm Gestational [...] acute February 27 2:48pm Lymphocytic colitis acute Febus 2024 2:48pm Obesity affecting acute February 27, 2025 2:48pm Pelvic floor weakness in female acute February 27 2:48pm Perianal candidiasis acute 2024 2:48pm acute February 27, 2:48pm Proteinuria affecting acute February 27 2:48pm Rectal pain acute February 27, 2025 2:48pm Short interval between pregnancies affecting in first trimester, acute 2024 2:48pm Supervision of high-risk acute February 27 2:48pm Chronic anemia chronic February 2:48pm Breech presentation resolved 2024 2:48pm Abdominal pain acute February 1:59pm Abnormal glucose affecting acute March 05 1:59pm Advanced maternal age in multigravida acute March 05 1:59pm Contraction, Sandoval Osman acute March 05, 2025 1:59pm Gestational hypertension acute March 05, 2025 1:59pm Hemorrhoids acute March 05, 2025 1:59pm History of miscarriage, currently acute March 05, 2025 1:59pm Hx of pre-eclampsia in prior , currently acute 2024 1:59pm Hx of twin in prio r acute March 05 1:59pm Inclusion cyst of vulva acute A ugust 2024 1:59pm LGA (large for gestational age) fetus acute March 05 1:59pm Lymphocytic colitis acute Augus t 2024 1:59pm Obesity affecting acute March 05, 2025 1:59pm Pelvic floor weakness in female acute March 05 1:59pm Perianal candidiasis acute Augu st 2024 1:59pm acute March 05, 2 025 1:59pm Proteinuria affecting acute March 05 1:59pm Rectal pain acute March 05, 2025 1:59pm Short interval between pregnancies affecting in first trimester, acute [place] 2024 1:59pm Supervision of high-risk acute March 05 1:59pm Chronic anemia chronic February 1:59pm [facility] Work Phone: 1([phone]) 169-237605-01-2025 Evaluation note* Diagnosis Onset Date Resolution Status Admit Date Abdominal pain acute November 07 2 025 9:28am Gestational hypertension acute November [...] pregnancies affecting in first trimester, acute Ma 2024 9:28am Supervision of high-risk acute November 07, 2024 9: 28am Chronic anemia chronic November 07, 2 025 9:28am Advanced maternal [...] pregnancies affecting in first trimester, acute 2024 9:53am Supervision of high-risk acute January 29, 2025 9:53am Chronic anemia chronic January 29, 2025 9:53am Contraction, Sandoval Osman acute February 07, 2025 11:50am Hx of pre-eclampsia in prior , currently acute 2024 11:50am Abdominal pain acute February 3:56pm Abnormal glucose affecting February 13, 2025 3:56pm Advanced maternal age in multigravida acute February 13, 2025 3:56pm Contraction, Sandoval Osman acute February 13, 2025 3:56pm Gestational [...] February 13, 2025 3:56pm Lymphocytic colitis acute Febus t 2024 3:56pm Obesity affecting February 13, 2025 3:56pm Pelvic [...] Romero Osman acute February 14, 2025 9:28pm Gestational hypertension acute February 14, 2025 9:28pm Hemorrhoids acute February 14 9:28pm History of miscarriage, currently acute February 14 9:28pm Hx of pre-eclampsia in [...] 14, 2025 9:28pm Perianal candidiasis acute Febu 2024 9:28pm acute February 14 9:28pm Proteinuria affecting acute February 14, 2025 9:28pm Rectal pain acute February 14, 025 9:28pm Short interval between pregnancies affecting in first trimester, acute 2024 9:28pm Supervision of high-risk acute February 14, 2025 9:28pm Chronic anemia chronic February 9:28pm Decreased movement resolved February 14, 2025 9:28pm Abdominal pain acute February 2:24pm Abnormal glucose affecting acute February 18 2:24pm Advanced maternal age in multigravida acute February 18 2:24pm Contraction, Sandoval Osman acute February 18, 2025 2:24pm Gestational [...] acute February 18 2:24pm Lymphocytic colitis acute Augus t 2024 2:24pm Obesity affecting acute February 18, 2025 2:24pm Pelvic floor weakness in female acute February 18 2:24pm Perianal candidiasis acute Febu st 2024 2:24pm acute February 18, 025 2:24pm Proteinuria affecting acute February 18 [...] 2:48pm Inclusion cyst of vulva acute A ugust 2024 2:48pm LGA (large for gestational age) fetus acute February 27 2:48pm Lymphocytic colitis acute 2024 2:48pm Obesity affecting acute February 27, 2025 2:48pm Pelvic floor weakness in female acute February 27 2:48pm Perianal candidiasis acute 2024 2:48pm acute February 27, 2:48pm Proteinuria affecting acute February 27 2:48pm Rectal pain acute February 27, 2025 2:48pm Short interval between pregnancies affecting in first trimester, acute 2024 2:48pm Supervision of high-risk acute February 27 2:48pm Chronic anemia chronic February 2:48pm Breech presentation resolved 2024 2:48pm Abdominal pain acute February 1:59pm Abnormal glucose affecting acute March 05 1:59pm Advanced maternal age in multigravida acute March 05 1:59pm Contraction, Romero Osman acute March 05, 2025 1:59pm Gestational hypertension acute March 05, 2025 1:59pm Hemorrhoids acute March 05, 2025 1:59pm History of miscarriage, currently acute March 05, 2025 1:59pm Hx of pre-eclampsia in prior , currently acute Au 2024 1:59pm Hx of twin in prio r acute March 05 1:59pm Inclusion cyst of vulva acute A ugust 2024 1:59pm LGA (large for gestational age) fetus acute March 05 1:59pm Lymphocytic colitis acute Augus 2024 1:59pm Obesity affecting acute March 05, 2025 1:59pm Pelvic floor weakness in female acute March 05 1:59pm Perianal candidiasis acute 2024 1:59pm acute March 05, 2 025 1:59pm Proteinuria affecting acute March 05 1:59pm Rectal pain acute March 05, 2025 1:59pm Short interval between pregnancies affecting in first trimester, acute [facility] 2024 1:59pm Supervision of high-risk acute March 05 1:59pm Chronic anemia chronic February 1:59pm Abdominal pain acute February 3:40pm Abnormal glucose affecting acute March 06 3:40pm Advanced maternal age in multigravida acute March 06 3:40pm Contraction, Sandoval Osman acute March 06, 2025 3:40pm Gestational hypertension acute March 06, 2025 3:40pm Hemorrhoids acute March 06, 2025 3:40pm History of miscarriage, currently acute March 06, 2025 3:40pm Hx of pre-eclampsia in prior , currently acute [facility] 2024 3:40pm Hx of twin in prio r acute March 06 3:40pm Inclusion cyst of vulva acute A ugust 2024 3:40pm LGA (large for gestational age) fetus acute March 06 3:40pm Lymphocytic colitis acute Augus 2024 3:40pm Obesity affecting acute March 06, 2025 3:40pm Pelvic floor weakness in female acute March 06 3:40pm Perianal candidiasis acute 2024 3:40pm acute March 06, 2 025 3:40pm Proteinuria affecting acute March 06 3:40pm Rectal pain acute March 06, 2025 3:40pm Short interval between pregnancies affecting in first trimester, acute [place] 2024 3:40pm Supervision of high-risk acute March 06 3:40pm Chronic anemia chronic February 3:40pm [facility] Work Phone: 1([phone]) 977-757504-08-2025 Evaluation note* Diagnosis Onset Date Resolution Status [...] Inclusion cyst of vulva acute M ay 1st, 2025 9:28am Lymphocytic colitis acute November 072024 9:28am [...] 9: 28am Chronic anemia chronic November 07, 2 025 9:28am Advanced maternal [...] pregnancies affecting in first trimester, acute Ju wa 2024 2:52pm Supervision of high-risk acute January [...] prior , currently acute Au 2024 11:50am [facility] Work Phone: 1([phone]) 726-730403-31-2025 Evaluation note* Diagnosis Onset Date Resolution Status [...] 07 1:53pm Rectal pain acute October 07, 025 1:53pm Short interval between pregnancies affecting [...] 15, 2024 12:44pm Perianal candidiasis acute Apri 2024 12:44pm acute October 15 12:44pm Rectal [...] 03 2:52pm History of miscarriage, currently acute Olga 27th, 20 25 2:52pm Hx of pre-eclampsia in prior , [...] pregnancies affecting in first trimester, acute January 03 2:52pm Supervision of high-risk acute January 03, [...] Chronic anemia chronic January 13, 2025 10:41am [facility] Work Phone: 1([phone] 671-209903-31-2025 Evaluation note* Diagnosis Onset Date Resolution Status [...] between pregnancies affecting in first trimester, acute Mirta 8th, 2 025 12:44pm Supervision of high-risk acute October [...] 9: 28am Chronic anemia chronic November 07, 2 025 9:28am Advanced maternal [...] of pre-eclampsia in prior , currently acute [facility] 2024 2:52pm Hx of twin in prio r acute January 03, 2025 2:52pm Inclusion cyst of vulva acute [facility] 2024 2:52pm Lymphocytic colitis acute January [...] Chronic anemia chronic January 29, 2025 9:53am [facility] Work Phone: 1(201) 998-629603-04-2025 Evaluation note* Diagnosis Onset Date Resolution Status Admit Date Abdominal pain acute September 10, 2024 2:47pm Advanced maternal age (AMA) in acute September 10, 2024 2:47pm Gestational hypertension acute September 10, 2024 2:47pm Hemorrhoids acute September 10 2:47pm History of miscarriage, currently acute September 10 2:47pm Hx of pre-eclampsia in prior , currently acute [facility] 2024 2:47pm Hx of twin in prio [...] of pre-eclampsia in prior , currently acute [facility] 2024 1:53pm Hx of twin in prio [...] 15, 2024 12:44pm Perianal candidiasis acute Apri 2024 12:44pm acute October 15 12:44pm Rectal pain acute October 15 12:44pm Short interval between pregnancies affecting in first trimester, acute October 15, 12:44pm Supervision of high-risk acute October 15, [...] 9: 28am Chronic anemia chronic November 07, 2 025 9:28am Abdominal pain acute December 04, [...] :48pm Inclusion cyst of vulva acute M 2024 2:48pm Lymphocytic colitis acute November 082024 [...] Chronic anemia chronic December 04, 2024 2:48pm [facility] Work Phone: 1([phone]) 769-523903-04-2025 Evaluation note* Diagnosis Onset Date Resolution Status Admit Date Abdominal pain acute September 10, 2024 2:47pm Advanced maternal age (AMA) in acute September 10, 2024 2:47pm Gestational hypertension acute September 10, 2024 2:47pm Hemorrhoids acute September 10 2:47pm History of miscarriage, currently acute September 10 2:47pm Hx of pre-eclampsia in prior , currently acute [facility] 2024 2:47pm Hx of twin in prio [...] of pre-eclampsia in prior , currently acute [facility] 2024 1:53pm Hx of twin in prio [...] Chronic anemia chronic January 03, 2025 2:52pm [facility] Work Phone: [phone]) 173-640802-04-2025 Evaluation note* Diagnosis Onset Date Resolution Status [...] 13 3:04pm Inclusion cyst of vulva acute [id number] 3:04pm Lymphocytic colitis acute Febr2024 3:04pm Obesity affecting acute August 13, 2024 3:04pm Pelvic floor weakness in female acute August 13 3:04pm Perianal candidiasis acute ua2024 3:04pm acute August 13, 2024 3:04pm [...] of pre-eclampsia in prior , currently acute [facility] 2024 2:47pm Hx of twin in prio r acute September 10, 2024 2:47pm Inclusion cyst of vulva acute [facility] 2024 2:47pm Lymphocytic colitis acute September 10, 2024 2:47pm Obesity affecting acute September 10, 2024 2:47pm Pelvic floor weakness in female acute September 10, 2024 2:47pm Perianal candidiasis acute Sa[place]l 2024 2:47pm acute September 10 2:47pm Rectal pain acute September 10 2:47pm Short interval between pregnancies affecting in first trimester, acute [facility] 2024 2:47pm Supervision of high-risk acute September [...] of pre-eclampsia in prior , currently acute [facility] 2024 1:53pm Hx of twin in prio r acute October 07, 2024 1:53pm Inclusion cyst of vulva acute [facility] 2024 1:53pm Lymphocytic colitis acute October 07, [...] Chronic anemia chronic December 04, 2024 2:48pm [place] [facility] [employer] [facility] Work Phone: 1(738) 212-102012-16-2024 Evaluation note* Diagnosis Onset Date Resolution Status Admit Date Hemorrhoids acute June 9:16am Perianal candidiasis acute Dece mber 2023 9:16am Rectal pain acute June 9:16am Vaginal discharge resolved Decembe r 2023 12:47pm Abdominal pain acute June 112023 3:23pm Hemorrhoids acute June 3:23pm Lymphocytic colitis acute Decem [place] 2023 3:23pm Rectal pain acute June 3:23pm [...] of pre-eclampsia in prior , currently acute moody 2024 12:46pm Hx of twin in prio [...] of pre-eclampsia in prior , currently acute [facility] 2024 2:47pm Hx of twin in prio [...] between pregnancies affecting in first trimester, acute [facility] 2024 2:47pm Supervision of high-risk acute September 10, 2024 2:47pm Chronic anemia chronic September 10, 2024 2:47pm [facility] Work Phone: 1(424) 720-913212-16-2024 Evaluation note* Diagnosis Onset Date Resolution Status [...] of pre-eclampsia in prior , currently acute [facility] 2024 2:47pm Hx of twin in prio r acute September 10, 2024 2:47pm Inclusion cyst of vulva acute [facility] 2024 2:47pm Lymphocytic colitis acute September 10, 2024 2:47pm Obesity affecting acute September 10, 2024 2:47pm Pelvic floor weakness in female acute September 10, 2024 2:47pm Perianal candidiasis acute [facility] 2024 2:47pm acute September 10 2:47pm Rectal pain acute September 10 2:47pm Short interval between pregnancies affecting in first trimester, acute [facility] 2024 2:47pm Supervision of high-risk acute September [...] of pre-eclampsia in prior , currently acute [facility] 2024 1:53pm Hx of twin in prio [...] Chronic anemia chronic October 15, 2024 12:44pm [facility] Work Phone: 1(140) 323-699712-03-2024 [facility]11-03-2023 NoteHNO ID: [id number] Author: Kelly Calabrese PA-C Service: ? Author Type: Physician Military Science Instructor Type: Progress Notes Filed: 05/12/2023 2:41 PM Note Text: Kelly Calabrese PA-C Department of Orthopaedics Orthopaedics [address] [address] Dept: [phone] May 12, 2023 SUBJECTIVE: CHIEF COMPLAINT: Established [...] acute abnormality. Full imaging report available in [facility]. ASSESSMENT: S86.812A Strain of calf muscle, left, initial encounter (primary encounter diagnosis) PLAN: Reviewed images taken today. Recommendation for calf strain is physical therapy and activity modification as needed. Patient agreeable with plan and will follow up in 8 weeks. FOLLOW UP INSTRUCTIONS: 8 weeks IMAN [facility]11-03-2023 NoteHNO ID: [id number] Author: Rhonda Hackett Tech Service: ? Author Type: Cordwood Cutter Helper Type: Progress Notes Filed: 05/12/2023 12:33 PM [...] Lim May 12, 2023 12:32 PMMer[facility] [id number] History of Present illness Narrative* Kelly Calabrese PA-C - 05/12/2023 10:51 AM EDT Kelly Calabrese PA-C Department of Orthopaedics Orthopaedics [address] [place] [address] Dept: [phone] May 12, 2023 SUBJECTIVE: CHIEF COMPLAINT: Established [...] weeks Kelly Calabrese PA-C documented in this encounterSelect Medical Trihealth Rehabilitation Hospital11-03-2023 History of Present illness Narrative* Rhonda [...] 12, 2023 12:32 PM documented in this encounterSelect Medical Trihealth Rehabilitation Hospital08-25-2023 NotePap Smear Specimen AdequacyAugus2022 11:39amComment.Satisfactory for evaluation. Endocervical and/or squamous metaplasticcells (endocervical component)are present.[facility] INTERFACED A#[id number] HospitalComment on above: Satisfactory for evaluation. Endocervical and/or squamous metaplasticcells (endocervical component)are present.03-03-2023 NotePap Smear Specimen Adequacy March 03, 2023 10:39amComment.Satisfactory for evaluation. Endocervical and/or squamous metaplasticcells (endocervical component)are present.[facility] INTERFACED A#[id number] HospitalCombeaumont hospital on above:Satisfactory for evaluation. Endocervical and/or squamous metaplasticcells (endocervical component)are present.03-01-2023 NoteHNO ID: [id number] Author: Cathryn Morrell, DO Service: ? Author [...] of plan. All questions answered. Follow up jim LopezP.H.[facility]23 NoteHNO ID: [id number] Author: Sydni Ring RT(R) Service: Radiology Author [...] Aries(R) March 01, 2023 9:50 AMMercy Health Kings Mills [id number] History of Present illness Narrative* Sydni Ring [...] 01, 2023 9:50 AM documented in this encounterSelect Medical Trihealth Rehabilitation Hospital06-21-2023 NoteHNO ID: [id number] Author: Cathryn Morrell, DO Service: ? Author [...] plan. All questions answered. Cathryn Morrell D.O. M.P.H.[facility]06-21-2023 History of Present illness Narrative* Cathryn Morrell, [...] Cathryn Morrell D.O. M.P.H. documented in this encounterSelect Medical Trihealth Rehabilitation Hospital06-01-[address] Pelayo [facility] December 08, 2022 1:33pm Note Date/Time December 08, 2022 9:03a [facility] Medical Records Department [address] [place] [address] Emergency Department Summary 12/08/22 MR#: [id number] Acct: [id number] Name: AMNDI VALENTE Rep #:[id number] : 1990 32 [...] immune issues. No trouble swallowing. No headache. [facility] Medical History Allergic dermatitis Anal fissure [...] for 4 days (days 2-5) PO vitamin T31-pscvk acid 1-0.8 mg Tablet 1 tab PO DAILY Primary Care Provider: Cholo Smith Referrals: Cholo Smith DO [Primary Care Provider] - 2 Days for wound check Disposition Disposition: Home, Self Care What to do if you have Problems For any increased pain, shortness of breath, bleeding, nausea or vomiting, chestpain, or any unexpected problems, contact your Primary Care Provider. Call [facility] ([phone]) or report to the closest Emergency Room. Call 911 if necessary. 12/08/22 3363 <Electronically signed by Santi Pelayo MD> Cosigner Signature (if applicable): CC: Dr. Cholo Smith DO ~ Signed [facility] Work Phone: 1(156) 457-135205-15-2023 NoteHNO ID: [id number] Author: Pierre Hicks PA-C Service: ? Author Type: Physician Military Science Instructor Type: Progress Notes Filed: 11/21/2022 10:28 AM [...] up in 4 weeks with IMAN [facility]05-03-2023 Miscellaneous Notes* Telephone Encounter - Rhonda Sow [...] have questions, patient can be reached at [phone] documented in this encounterSelect Medical Trihealth Rehabilitation Hospital05-02-2023 NoteHNO ID: [id number] Author: Xochitl Conti APRN.CRNA Service: Anesthesiology Author Type: Nurse Anchor Tacker Type: Anesthesia Procedure Notes Filed: 11/08/2022 11:43 AM Note Text: ANESTHESIOLOGY PROCEDURE NOTE Airway General Information Procedure Start Time/Medication Administration: 11/08/2022 11:18 AM Patient location during procedure: OR Timeout Performed Pre-procedure: timeout performed Consent Obtained: Yes 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 Author Type: Physician Type: [...] treatment were discussed with (more content not included)...[facility]04-26-[facility] History of Present illness Narrative* Cathryn [...] consent for surgical intervention. documented in this encounterSelect Medical Trihealth Rehabilitation Hospital04-21-2023 History and physical note * Stefany [...] fevers. Neuro: No history of TIA's, stroke, HUMAN INSIGHTS LEAD ADS MARKETING tumor, impaired sensorium, hemiplegia, paraplegia or quadraplegia. No neurological symptoms or problems. Respiratory: No history of current cough or dyspnea, or pneumonia in the past 6 weeks. No history of respiratory/pulmonary symptoms or problems. Cardiovascular: No history of HTN requiring medication, no history of angina, CHF, UT, cardiac surgery or stents. Denies rest pain, gangrene or revascularization/amputation for PVD. No history of cardiovascular symptoms or problems. GI: No history of GI symptoms or problems. No history of esophageal varices, recent ascites, or ETOH greater than 2 drinks per day. : No history of dysuria, frequency or incontinence,, stones or chronic kidney disease ENGINE ASSEMBLER: Negative for abnormal vaginal bleeding, abnormal vaginal [...] 2022 TIME: 8:32 AM documented in this encounterSelect Medical Trihealth Rehabilitation Hospital04-21-2023 Instructions* Patient Instructions* Stefany De La Torre PA-C - 10/28/2022 8:33 AM EDT PATIENT PREOPERATIVE INSTRUCTIONS Cathryn Morrell,* has scheduled you for your procedure at this [facility]: [phone] -- [address] [facility] [address]. Please read below carefully for your personalized [...] Procedures: - YOU MUST HAVE A RESPONSIBLE CINEMA OR THEATRE MANAGER TAKE YOU HOME. A INSURANCE CLAIMS ADJUSTER OR MOLD MECHANIC CANNOT BE MADE A RESPONSIBLE CINEMA OR THEATRE MANAGER. - We recommend that a responsible person [...] Advance Directive, please fax a copy to [phone] or email to for it to be [...] De La Torre PA-C documented in this encounterSelect Medical Trihealth Rehabilitation Hospital03-27-2023 Discharge summary Author Hodan Ling [facility] October 03, 2022 7:20am Note Date/Time October 03, 2022 7:2 0am [facility] Physical [facility] [address] [place] [address] / REHABILITATION SERVICES DISCHARGE SUMMARY MR#: [id number] Acct: [id number] Name: MANDI VALENTE Rep #: [id number] [...] please feel free to call me at [phone]. Thank you for the referral of thispatient. Sincerely, Hodan Ling, DPT Balance/Gait/Functional tests - Balance/Special Test Scores Lower Extremity Functional Score: 61 <Electronically signed by Hodan Ling DPT> 10/03/22 0720 CC: Dr. Cathryn Morrell, DO; Dr. Cholo Smith, ~ ELR Signed [facility] Work Phone: 1(183) 144-277903-10-2023 NoteHNO ID: [id number] Author: Cathryn Morrell DO Service: ? Author Type: Physician Type: Progress Notes Filed: 09/27/2022 2:02 PM Note Text: VIRTUAL VISIT PROGRESS NOTE This is a virtual visit using [employer] video visit. It required patient-provider interaction for [...] Small bilateral hip joint effusions. Electronically Signed: Madeline Ibarra3/02/24 at 10:11 EST , [facility] images PLAN: There are no Patient Instructions on file for this visit. I spent a total of 20 minutes on the date of the service which included preparing to see the patient, pyat-ka-iclv patient care, completing clinical documentation, obtaining and/or [...] changes but will assess intraop. Cathryn Morrell, I have communicated my name and active licensure. The patient's identity and physical location were verified at the time of this visit. Either the patient or their legal reimbursement representative has been informed of the risks and benefits of -- and alternatives to -- treatment through a remote evaluation and consents to proceed with the evaluation shazia (more content not included)...[facility]03-06-2023 Miscellaneous Notes* Telephone Encounter - Brionna Mendez - 09/12/2022 1:59 PM EST Patient is scheduled. documented in this encounterSelect Medical Trihealth Rehabilitation Hospital02-09-2023 NoteHNO ID: [id number] Author: Cathryn Morrell DO Service: ? Author [...] post surgery and injection Follow [facility]Ber[facility]02-[facility]-2023 History of Present illness Narrative* Cathryn [...] Follow up after mri documented in this encounterSelect Medical Trihealth Rehabilitation Hospital12-28-2022 NoteHNO ID: [id number] Author: Cathryn Morrell DO Service: ? Author Type: Physician Type: Progress Notes Filed: 07/06/2022 2:47 PM Note Text: Large Joint Arthro/Inj: R greater trochanteric bursa Informed Consent Consent Obtained: Verbal [place] Protocol A moment to CARE was completed. [...] Erythema: absent Sensation: norm (more content not included)...[facility] 07-06-2022 NoteHNO ID: [id number] Author: ALBA Hoskins Service: Radiology Author Type: [...] Hoskins July 06, 2022 3:13 PMMercy Health Kings Mills [id number] History of Present illness Narrative* Cathryn Morrell, - 07/06/2022 12:53 PM ESTAssociated Order(s): Large Joint Arthro/Inj: R greater trochanteric bursa Post-Procedure Diagnose(s): Trochanteric bursitis of right hip; Iliotibial band syndrome of right side Images from the original note were not included. Large Joint Arthro/Inj: R greater trochanteric bursa Informed Consent Consent Obtained: Verbal [place] Protocol A moment to CARE was completed. [...] plan. All questions answered. documented in this encounterSelect Medical Trihealth Rehabilitation Hospital12-28-2022 History of Present illness Narrative* Nida [...] 06, 2022 3:13 PM documented in this encounterSelect Medical Trihealth Rehabilitation Hospital10-13-2022 History of Present illness Narrative* Cathryn Morrell, DO - 04/21/2022 11:32 AM EDT Follow [...] side d/t throbbing/burning pain. documented in this encounterSelect Medical Trihealth Rehabilitation Hospital08-31-2022 History of Present illness Narrative* Cathryn [...] plan. All questions answered. documented in this encounterSelect Medical Trihealth Rehabilitation Hospital08-22-2022 History of Present illness Narrative* Nena [...] 28, 2022 2:50 PM documented in this encounterSelect Medical Trihealth Rehabilitation Hospital08-22-2022 Miscellaneous Notes* Telephone Encounter - Christy Marion - 02/28/2022 1:17 PM EDT Patient has been scheduled by LAURA BENTON [[id number]] * Telephone Encounter - Christy Marion - 02/28/2022 12:10 PM EDT Called patient to schedule DVT Ultrasound, patient wanted to try aldo, we cannot schedule for them so I have her the number to call to schedule. Patient will call back if she cannot get scheduled there, to get scheduled in [place]. documented in this encounterSelect Medical Trihealth Rehabilitation Hospital08-16-2022 History of Past illness Narrative* Problem Noted Date Resolved Date Trochanteric bursitis of right hip 02/22/2022 02/22/2022 It band syndrome, unspecified laterality 02/22/2022 documented as of this encounter (statuses as of 02/28/2022) [facility] History of Past illness Narrative* Problem Noted Date Resolved Date Trochanteric bursitis of right hip 02/22/2022 02/22/2022 It band syndrome, unspecified laterality 02/22/2022 documented as of this encounter (statuses as of 03/01/2022) [facility] History of Past illness Narrative* Problem Noted Date Resolved Date Trochanteric bursitis of right hip 02/22/2022 02/22/2022 It band syndrome, unspecified laterality 022 02/22/2022 documented as of this encounter (statuses as of 03/09/2022) [facility] History of Past illness Narrative* Problem Noted Date Resolved Date Trochanteric bursitis of right hip 02/22/2022 02/22/2022 It band syndrome, unspecified laterality 022 02/22/2022 documented as of this encounter (statuses as of 04/21/2022) [facility] History of Past illness Narrative* Problem Noted Date Resolved Date Trochanteric bursitis of right hip 02/22/2022 02/22/2022 It band syndrome, unspecified laterality 022 02/22/2022 documented as of this encounter (statuses as of 07/13/2022) [address]16-2022 History of Past illness Narrative* Problem Noted Date Resolved Date Trochanteric bursitis of right hip 02/22/2022 02/22/2022 It band syndrome, unspecified laterality 022 02/22/2022 documented as of this encounter (statuses as of 07/13/2022) [address]16-2022 History of Past illness Narrative* Problem Noted Date Resolved Date Trochanteric bursitis of right hip 02/22/2022 02/22/2022 It band syndrome, unspecified laterality 022 02/22/2022 documented as of this encounter (statuses as of 08/18/2022) [facility] History of Past illness Narrative* Problem Noted Date Resolved Date Trochanteric bursitis of right hip 02/22/2022 02/22/2022 It band syndrome, unspecified laterality 022 02/22/2022 documented as of this encounter (statuses as of 09/12/2022) [facility] History of Past illness Narrative* Problem Noted Date Resolved Date Trochanteric bursitis of right hip 02/22/2022 02/22/2022 It band syndrome, unspecified laterality 022 02/22/2022 documented as of this encounter (statuses as of 09/26/2022) [facility] History of Past illness Narrative* Problem Noted Date Resolved Date Trochanteric bursitis of right hip 02/22/2022 02/22/2022 It band syndrome, unspecified laterality 022 02/22/2022 documented as of this encounter (statuses as of 10/31/2022) [facility] History of Past illness Narrative* Problem Noted Date Resolved Date Trochanteric bursitis of right hip 02/22/2022 02/22/2022 It band syndrome, unspecified laterality 022 02/22/2022 documented as of this encounter (statuses as of 11/08/2022) [facility] of Past illness Narrative* Problem Noted Date Resolved Date Trochanteric bursitis of right hip 02/22/2022 02/22/2022 It band syndrome, unspecified laterality 022 02/22/2022 documented as of this encounter (statuses as of 12/23/2022) [facility] History of Past illness Narrative* Problem Noted Date Resolved Date Trochanteric bursitis of right hip 02/22/2022 02/22/2022 It band syndrome, unspecified laterality 022 02/22/2022 documented as of this encounter (statuses as of 12/28/2022) [facility] History of Past illness Narrative* Problem Noted Date Diagnosed Date Resolved Date Trochanteric bursitis of right hip 02/22/2022 02/22/2022 It band syndrome, unspecified laterality 02/07/2022 02/22/2022 documented as of this encounter (statuses as of 05/13/2023) [facility] Miscellaneous Notes* Telephone Encounter - Brionna Mendez - 01/28/2022 3:11 PM EDT Patient had MRI done 12/08/21. * Telephone Encounter - Jessica Contreras - 01/28/2022 11:38 AM EDT Please contact the patient to schedule an mri prior to her surgery date of 02/22/22. documented in this encounterSelect Medical Trihealth Rehabilitation Hospital07-15-2022 History of Present illness Narrative* Cathryn [...] films and my findings are the same. [facility] Imaging Services [address] [place] [address] Lower Ext Joint Only (Routine) MR#: [id number] Acct: [id number] Name: MANDI VALENTE Rep #: [id number] : 1990 F 31 From: Mateo Aldana MD PCP: Dr. Cholo Smith, Status: REG CLI Study: Lower Ext Joint Only (Routine) Date of Exam: 0 12/31/21 Exam# [id number] Ordering Dr: Cathryn Morrell STUDY: MRI RIGHT [...] consent for surgical intervention. documented in this encounterSelect Medical Trihealth Rehabilitation Hospital06-08-2022 Miscellaneous Notes* Telephone Encounter - Brionna Mendez - 12/15/2021 1:50 PM EDT I called and spoke with patient, she wants to call her insurance to see if she met her deductible because she works at [employer] and gets a discount there, vs getting the MRI done at a [facility] facility. * Telephone Encounter - Jessica Contreras - 12/15/2021 10:40 AM EDT Please contact the patient to have her mri scheduled with [facility]. Looks like she may have it scheduled at [facility]. It would benefit her to have it here more so the results and images are readily available for the surgeon yet it is still in her area. documented in this encounterSelect Medical Trihealth [facility] Hospital06-01-2022 History of Present illness Narrative* Cathryn [...] treatment plan as discussed. documented in this encounterSelect Medical Trihealth Rehabilitation Hospital06-01-2022 Miscellaneous Notes* Allied Health - Amina [...] 08, 2021 3:18 PM documented in this encounterSelect [facility] complaint+Reason for visit Narrative* Chief Complaint COVID-19 MASTODYNIA Rash COVERING BODY Rash TROCHANTERIC BURSITIS RIGHT HIP/RX HERE TROCHANTERIC BURSITIS OF RIGHT HIP Reason for Visit Allergic dermatitis Rash [facility] Work Phone: Discharge summary Author Linda Hammond [facility] Note Date/Time March 09, 2025 10 :40am [facility] Medical Records Department [address] [place] [address] Discharge Summary 03/09/25 1040 MR#: [id number] Acct: [id number] Name: MANDI VALENTE Rep #:[id number] : 1990 34 From: Linda Hammond CNM PCP: Dr. Cholo Smith DO Status:ADM IN [facility] Providers Date of Admission: 03/06/25 Primary Care Physician: Dr. Cholo Smith DO Reason For Visit: ABLATION Diagnosis Discharge Diagnosis (1) (spontaneous vaginal delivery): Status: Acute Code(s): O80 - Encounter for full-term uncomplicated delivery Plan: s/p PPD # 1. routine post delivery care 2. breast feeding- support given 3. rh positive 4. rubella immune 5. d/c home today Medications at Discharge Home Medications multivitamin no.47-iron fum 27 mg-folate no.1 1 mg-dha 300 mg capsule (PNV-DHA)1 cap PO DAILY 08/18/23 Diltiazem 2% / Lidocaine 5% ointment (compound) #1 ea 06/24/24 ferrous sulfate 325 mg (65 mg iron) tablet 325 mg PO Q OTHER DAY anemia 08/06/24 Held on 03/06/25. Instructions: pt refusees famotidine 20 mg tablet (Pepcid) 20 mg PO BID heartburn 90 days #180 tabs 09/10/24 hydroxyzine pamoate 25 mg capsule 25 mg PO QHS PRN itching #30 caps 01/03/25 Hospital Course Operations None Procedures None Summary of Care Provided Hospital Course: at term, s/p with normal pp course Physical Exam Const alert and oriented x3 Chest inspection of chest normal and palpation of chest normal Resp normal respiratory effort and normal air movement Cardio regular rate and regular rhythm GI normal to inspection, nondistended, normoactive bowel sounds Uterus Palpation: uterus fundus firm Extremity normal to inspection, full ROM and no calf tenderness Skin no rashes or lesions noted Psych mental status grossly normal Weight / BMI Weight Weight: 218 lb Body Mass Index (BMI) 39.9 ABG / Lab / Microbiology Data 03/06/25 17:45 D/C Instructions May resume sexual activity in: 4-6 weeks Call your doctor if your incision/area has: Continuous Slow Oozing, Sudden Increased Bleeding, Increased Pain/ Swelling, Increased Redness and Foul Smelling Discharge DC O2, CPAP, BIPAP Needs Home O2 Discharge instructions: No Please Follow Up With: Reina Rashid DO When: Call [phone] to make an appointment with your doctor in 6 weeks. If you had elevated blood pressure or 4th degree laceration, you will need to be seen in 2 weeks. Meaningful Use Info Meaningful Use Meaningful Use Diagnoses (Choose all that apply): None applicable Discharge Plan Admission Admit Date/Time: 03/06/25 16:35 Attending Provider: Piedad Moreno Primary Care Provider: Cholo Smith Discharge Orders/Prescriptions Prescriptions: No Action PNV-DHA 27 mg iron-1 mg -300 mg capsule 1 cap PO DAILY ferrous sulfate 325 mg (65 mg iron) tablet 325 mg PO Q OTHER DAY (DME) Diltiazem 2% / Lidocaine 5% ointment (compound) Ointment See Rx Instructions .Route Qty: 1 0RF Patient Comments: Not using currently Rx Instructions: place a pea sized amount to the affected area of the rectum twice a day famotidine [Pepcid] 20 mg tablet 20 mg PO BID 90 Days Qty: 180 4RF hydroxyzine pamoate 25 mg capsule 25 mg PO QHS PRN (Reason: itching) Qty: 30 3RF Referrals / Follow Up: Cholo Smith DO [Primary Care Provider] - Disposition Disposition (needs filled in before D/C Order can be placed): Home, Self Care 03/09/25 1040 <Electronically signed by Linda Hammond CNM> Cosigner Signature (if applicable): CC: ERI Hammond; Dr. Cholo Smith DO~ Signed [facility] Work Phone: Evaluation note* Diagnosis Hip pain- Primary Pain in joint, pelvic region and thigh Pain in hip Pain in joint, pelvic region and thigh Trochanteric bursitis of right hip Enthesopathy of hip region Iliotibial band syndrome of right side Other disorder of muscle, ligament, and fascia documented [facility] Diagnosis Pain Generalized pain [facility] Diagnosis Onset Date Resolution Status Constipation acute Lymphocytic colitis acute Trochanteric bursitis of right hip acute Back pain noneactive Trochanteric bursitis of right hip acute [facility] Work Phone: Evaluation note* Diagnosis Iliotibial band syndrome of right side- Primary Other disorder of muscle, ligament, and fascia Pain in hip Pain in joint, pelvic region and thigh Trochanteric bursitis of right hip Enthesopathy of hip region [facility] Right [facility] Diagnosis Trochanteric bursitis of right hip- Primary Enthesopathy of hip region Iliotibial band syndrome of right side Other disorder of muscle, ligament, and fascia [facility] Diagnosis Trochanteric bursitis of right hip- Primary Enthesopathy of hip region Iliotibial band syndrome of right side Other disorder of muscle, ligament, and fascia [facility] Diagnosis Trochanteric bursitis of right hip- Primary Enthesopathy of hip region Iliotibial band syndrome of right side Other disorder of muscle, ligament, and fascia [facility] Diagnosis Trochanteric bursitis of right hip- Primary Enthesopathy of hip region documented [facility] Diagnosis Onset Date Resolution Status Allergic dermatitis acute Rash noneactive [facility] Work Phone: Evaluation note* Diagnosis Trochanteric bursitis of right hip- Primary Enthesopathy of hip region Iliotibial band syndrome of right side Other disorder of muscle, ligament, and fascia Trochanteric bursitis of right hip Enthesopathy of hip region Iliotibial band syndrome of right side Other disorder of muscle, ligament, and fascia documented in this [facility] Diagnosis Preop examination- Primary Preoperative examination, unspecified Trochanteric bursitis of right hip Enthesopathy of hip region Iliotibial band syndrome of right side Other disorder of muscle, ligament, and fascia [facility] Diagnosis Trochanteric bursitis of right hip- Primary Enthesopathy of hip region Iliotibial band syndrome of right side Other disorder of muscle, ligament, and fascia documented [facility] Diagnosis Onset Date Resolution Status URI (upper respiratory infection) acute [facility] Work Phone: Evaluation note* Diagnosis S/P orthopedic surgery, follow-up exam- Primary Follow-up examination, following other surgery Trochanteric bursitis of right hip Enthesopathy of hip region Iliotibial band syndrome of right side Other disorder of muscle, ligament, and fascia documented [facility] Diagnosis Onset Date Resolution Status Acute bacterial sinusitis ac [facility] Work Phone: Evaluation note* Diagnosis Strain of calf muscle, left, initial encounter- Primary [facility] Diagnosis Onset Date Resolution Status Acute bacterial sinusitis ac [place] [employer] [employer] acute [facility] Work Phone: Evaluation note* Diagnosis Onset Date Resolution Status AMA (advanced maternal age) multigravida 35+ acute External hemorrhoids acute History of miscarriage, currently acute Hx of pre-eclampsia in prior , currently acute Lower GI bleeding acute Lymphocytic colitis acute acute Supervision of high-risk acute Tilted uterus acute Chronic constipation chronic [facility] Work Phone: Evaluation note* Diagnosis Onset [...] colitis acute acute Supervision of high-risk acute [facility] Work Phone: Evaluation note* Diagnosis Pre-operative examination- Primary Preoperative examination, unspecified It band syndrome, unspecified laterality Class 1 obesity due to excess calories without serious comorbidity with body mass index (BMI) of 31.0 to 31.9 in adult Pain of left calf Pain in limb [facility] Diagnosis Pre-operative examination- Primary Preoperative examination, unspecified It band syndrome, unspecified laterality Class 1 obesity due to excess calories without serious comorbidity with body mass index (BMI) of 31.0 to 31.9 in adult Pain in left hip Pain in joint, pelvic region and thigh documented [facility] Diagnosis Pre-operative examination- Primary Preoperative examination, unspecified It band syndrome, unspecified laterality Class 1 obesity due to excess calories without serious comorbidity with body mass index (BMI) of 31.0 to 31.9 in adult Pain in right hip Pain in joint, pelvic region and thigh documented in this encounter [facility] Author Linda Hammond [facility] Note Date/Time February 07, 2025 2:3 7pm [facility] Medical Records Department [address] [place] [address] OB Triage Physician Note 02/07/25 1433 MR#: [id number] Acct: [id number] Name: MANDI VALENTE Rep #:[id number] : 1990 34 From: Linda Hammond CNM PCP: Dr. Cholo Smith, DO Status:REG CLI Y Location: [id number] HPI - General HPI Narrative MANDI VALENTE, [...] 4 current occupational status: employed current occupation: [employer] Registration PRN current occupational exposures/hazards: [...] physical activity do you participate in: none suraj/evangelical: Spiritism seatbelt use: always do you feel safe at home: Yes additional social history: Chad LOWE [email or web address] Pile Header History 5 Elective abortions Hx Para 3 Spontaneous abortions 1 Hx # Term Pregnancies Ectopic pregnancies Hx # Pregnancies Multiple births 1 # of living children 4 Past Pregnancies Del. Date Name GA/Weeks Outcome Route Bth Weight Gen Labor Lgth Anesthesia Del Locatn Provider FOB 04/05/18 Vinsen 41 live - full term 9#7oz Male 26 hrs epid ural [employer] Shey Madsen Alvarez 11/01/19 10 spontaneous 08/10/20 Lakisha 37 live - full term 5#14oz Female 10 HR epid ural [employer] Jenni Pino 08/10/20 [place] 37 live - full term 6#4oz Male 10 HR epid ural [employer] Jenni Pino 03/19/24 Elaine 39 live - full term 8lbs 2oz Female [employer] Dr. Gleason Delivery Date: 04/05/18 Last Updated by: Merna Bermeo IOL post dates Delivery Date: 11/01/19 Last Updated by: Merna Bermeo D&C, blighted Ovum Delivery Date: 08/10/20 Last Updated by: Merna Bermeo IOL @ 37wks Twins, Gestational HTN/pre-e Delivery Date: 08/10/20 Last Updated by: Mernasa Linda Bermeo IOL @ 37 weeks twins, gestational [...] no vb/lof/ct x. cyst is bothersome again. [facility] scheduled KW- no vb/lof/ctx. cyst is b othersome again discussed with SM. [facility] scheduled 10/15/24 -?-?-?-?-?-?-?-?-?-?-?-?- 16w 5d [...] JV- still has a rash and twin isela saw her and thought it was just [...] irregular q4-12 Assessment & Plan (1) Contraction, Sandoval Osman: COMMENT: fingertip per nursing dilated with less intense/frequency in ctx. (2) Hx of pre-eclampsia in prior , currently : COMMENT: negative labs . bp stable in WP. headache resolved. PLAN: Plan Patient presents for triage evaluation secondary to contractions. FHT: Moderate variability reactive no decelerations category I tracing [place]: irregular Contractions Assessment and plan: Reactive NST, reassuring maternal and status patient discharged to home to follow-up in office.. See problem list details for additional plan information. Charges/Coding Procedures Urinary/Genital 52xxx-59xxx: 85966-65 non-stress test Interp 02/07/25 1437 <Electronically signed by Linda douglas CNM> Date _ Linda Hammond CNM Cosigner Signature (if applicable): Date CC: ERI Hammond; Dr. Cholo Smith, DO ~ Signed [facility] Work Phone: Progress note Author Suyapa Godinez [facility] Note Date/Time January 13, 2025 11:06 am [facility] [address] [place] [address], [address] [place] [address] OFFICE VISIT Date of Service: 01/13/25 MR#: [id number] Acct: [id number] Name: MANDI VALENTE Rep #: [id number] : 1990 Provider: ERI Godinez Age/Sex: 34/F Location: [facility] Status: Signed Intake Vital Signs 11/07/24 09:36 01/03/25 15:03 01/13/25 10:45 Height 5 ft 2 in 5 ft 2 in 5 ft 2 in Weight: 215 lb 8 oz BMI 39.4 BP 126/87 H Intake Visit Reasons: 30 wk ob Chief Complaint: 30wk ob 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 Required: No Is patient in pain?: No [...] mg capsule 0.8 mg PO QDAY 08/06/24 0701/31 History famotidine 20 mg tablet (Pepcid) 20 [...] 4 current occupational status: employed current occupation: [employer] Registration PRN current occupational exposures/hazards: [...] physical activity do you participate in: none suraj/evangelical: Spiritism seatbelt use: always do you feel safe at home: Yes additional social history: AlvarezCal [employer]OWE [email or web address] Pile Header History 5 Elective abortions Hx Para 3 Spontaneous abortions 1 Hx # Term Pregnancies Ectopic pregnancies Hx # Pregnancies Multiple births 1 # of living children 4 Past Pregnancies Del. Date Name GA/Weeks Outcome Route Bth Weight Infant Gen Labor Lgth Anesthesia Del Locatn Provider FOB 04/05/18 Vinsen 41 live - full term 9#7oz Male 26 hrs epid ural [employer] Shey Madsen Alvarez 11/01/19 10 spontaneous 08/10/20 Lakisha 37 live - full term 5#14oz Female 10 HR epid ural [employer] [employer] Jenni Pino 08/10/20 Abran 37 live - full term 6#4oz Male 10 HR epid ural [employer] Jenni Pino 03/19/24 Elaine 39 live - full term 8lbs 2oz Female [employer] Dr. Gleason Delivery Date: 04/05/18 [...] no vb/lof/ct x. cyst is bothersome again. [facility] scheduled KW- no vb/lof/ctx. cyst is b othersome again discussed with . [facility] scheduled 10/15/24 -?-?-?-?-?-?-?-?-?-?-?-?- 16w 5d [...] Movement Monitoring, Signs and Symptoms of Preeclampsia, [place] Education and Family Medical Leave or Disability [...] : Status: Acute Comment: PRR,, RAMSES 03/27/25, LLUVIA last Ava & Earnestine(Twins), Elaine Alvarez will be 39 weeks on Elaine's b-day. requests IOL on this day. (17) Hx of twin in prior : Status: Acute Comment: Fraternal (18) History of miscarriage, currently : Status: Acute Orders: Orders POC Urinalysis 2 Dip (Clinic) Today 01/13/25 1106 <Electronically signed by Suyapa mujica CNM> Date _ Suyapa Godinez CNM Cosigner Signature: Date (if applicable) CC: ~ [facility] [employer] Work Phone: Progress note Author Suyapa Godinez [facility] Note Date/Time February 14, 2025 11: 34pm [facility] Medical Records Department [address] [place] [address] OB Triage Progress Note 02/14/25 2330 MR#: [id number] Acct: [id number] Name: MANDI VALENTE Rep #:[id number] : 1990 34 From: Suyapa Godinez CNM PCP: Dr. Cholo Smith, DO Status:REG CLI Y DOS: Location: [place] [address] Progress Notes Date of Service: 02/14/25 Progress Note: Patient presents for triage evaluation secondary to decreased movement at 34 weeks and slight RUQ pain. FHT: 120 Moderate variability reactive no decelerations category I tracing [place]: no Contractions Assessment and plan: pain resolved [...] Lymph % (Auto) 18.0 L (19-41) % [place]field % (Auto) 5.9 (0-10) % Eos % [...] pH 6.5 (5.0 - 8.0) Ur Specific [place] 1.010 (1.002-1.030) Urine Protein Negative (Negative) mg/dl [...] Multi Select Codes Visit Charges Office Visit/Consults: 22613 OV L3 Est 20min Urinary/Genital Urinary/Genital CPT Codes: 48673-46 non-stress test Interp Assessment & Plan (1) [...] Unspecified hemorrhoids (22) Lymphocytic colitis: 02/14/25 2334 <Electronically signed by Suyapa mujica CNM> Date _ Suyapa Godinez CNM Cosigner Signature (if applicable): Date CC: ERI Godinez; Dr. Cholo Smith, DO ~ Signed [facility] Work Phone: Progress note Author Linda Hammond [facility] Note Date/Time March 09, 2025 10 :30am [facility] Medical Records Department [address] [place] [address] Progress Note - OBGYN 03/09/25 1022 MR#: [id number] Acct: [id number] Name: MANDI VALENTE Rep #:[id number] : 1990 34 From: Linda Hammond CNM PCP: Dr. Cholo Smith, DO Status:ADM IN [id number] Subjective Subjective Patient doing well without complaints. Tolerating PO. Ambulating and voiding without difficulty. Feeding well. Denies chest pain, shortness of breath, calf pain/swelling, fevers, chills, lightheadedness. Objective Data Objective Data Vital Signs: Vital Signs Temp Pulse Resp BP Pulse Ox O2 Del Method 98.1 F 86 16 134/76 H 99 Room Air 03/09/25 07:54 03/09/25 07:54 03/09/25 07:54 03/09/25 07:54 03/09/25 02:40 03/09/25 07:54 Oxygen Delivery Method Room Air Weight: 218 lb Body Mass Index (BMI) 39.9 Intake & Output: Intake and Output for Last 24 Hours 03/07/25 03/08/25 03/09/25 23:59 23:59 23:59 Intake Total 2353.30 / 2353.30 Output Total 1200 / 1200 Balance 1153.30 / 1153.30 Lab / Micro Data 03/06/25 17:45 Physical Exam Const alert and oriented x3 Chest inspection of chest normal and palpation of chest normal Resp normal respiratory effort and normal air movement Cardio regular rate and regular rhythm GI normal to inspection, nondistended, normoactive bowel sounds Uterus Palpation: uterus fundus firm Extremity normal to inspection, full ROM and no calf tenderness Skin no rashes or lesions noted Psych mental status grossly normal Assessment & Plan (1) (spontaneous vaginal delivery): COMMENT: JV boy PLAN: s/p PPD # 1. routine post delivery care 2. breast feeding- support given 3. rh positive 4. rubella immune 5. d/c home today 03/09/25 1040 <Electronically signed by Linda Hammond CNM> Cosigner Signature (if applicable): CC: ~ Signed [facility] Work Phone: [facility] for referral (narrative)* Diagnostic Procedure Only (Routine) - Closed Specialty Diagnoses / Procedures Referred By Contac t Referred To Contact XR IMAGING Diagnoses Pain Procedures XR HIP GENERAL 3V PELV/AP/LAT RIGHT RADEX HIP UNILATERAL WITH PELVIS 2-3 VIEWS Cathryn Morrell DO [address] [place] [address] Xr Imaging Referral ID Status Reason Start Date Expiration Date V isits Requested Visits Authorized [id number] Closed Auto-Generate d Referral 12/02/2021 01/01/2023 1 1 [facility] for referral (narrative)* Diagnostic Procedure Only (Urgent) - Closed Specialty Diagnoses / Procedures Referred By Contac t Referred To Contact US IMAGING Diagnoses Right calf pain Procedures US DVT LOWER RT DUP-SCAN XTR VEINS UNILATERAL/LIMITED STUDY Kelly Johnson PA-C [address] [place] [address] Us Imaging Referral ID Status Reason Start Date Expiration Date V isits Requested Visits Authorized [id number] Closed Auto-Generate d Referral 02/28/2022 03/30/2023 1 1 [facility] for referral (narrative)* Diagnostic Procedure Only (Routine) - Closed Specialty Diagnoses / Procedures Referred By Contac t Referred To Contact XR IMAGING Diagnoses Pain of left calf Procedures XR TIBIA FIBULA 2V AP/LAT LEFT RADIOLOGIC EXAMINATION TIBIA & FIBULA 2 VIEWS Kelly Calabrese PA-C [address] [place] [address] [place] [address] Referral ID Status Reason Start Date Expiration Date V isits Requested Visits Authorized [id number] Closed Auto-Generate d Referral 05/08/2023 06/06/2024 1 1 [facility] for referral (narrative)* Diagnostic Procedure Only (Routine) - Closed Specialty Diagnoses / Procedures Referred By Contac t Referred To Contact XR IMAGING Diagnoses Pain in left hip Procedures XR HIP GENERAL 3V PELV/AP/LAT LEFT RADEX HIP UNILATERAL WITH PELVIS 2-3 VIEWS Kelly Calabrese PA-C [address] [place] [address] [place] [address] Referral ID Status Reason Start Date Expiration Date V isits Requested Visits Authorized [id number] Closed Auto-Generate d Referral 02/08/2023 03/09/2024 1 1 [facility] for referral (narrative)* Diagnostic Procedure Only (Routine) - Closed Specialty Diagnoses / Procedures Referred By Contac t Referred To Contact XR IMAGING Diagnoses Pain in right hip Procedures XR HIP GENERAL 3V PELV/AP/LAT RIGHT RADEX HIP UNILATERAL WITH PELVIS 2-3 VIEWS Cathryn Morrell DO [address] [place] [address] [place] [address] Referral ID Status Reason Start Date Expiration Date V isits Requested Visits Authorized [id number] Closed Auto-Generate d Referral 06/28/2022 07/28/2023 1 1 [facility] for referral (narrative)No reason for referral information [facility] N[facility]* Diagnostic Procedure Only (Routine) - Closed Specialty Diagnoses / Procedures Referred By Contac t Referred To Contact XR IMAGING Diagnoses Pain of left calf Procedures XR TIBIA FIBULA 2V AP/LAT LEFT RADIOLOGIC EXAMINATION TIBIA & FIBULA 2 VIEWS Kelly Calabrese PA-C [address] [place] [address] [place] [address] Referral ID Status Reason Start Date Expiration Date V isits Requested Visits Authorized [id number] Closed Auto-Generate d Referral 05/08/2023 06/06/2024 1 1 [facility] for visit Narrative* Diagnostic Procedure Only (Routine) - Closed Specialty Diagnoses / Procedures Referred By Lingac t Referred To Contact XR IMAGING Diagnoses Pain in left hip Procedures XR HIP GENERAL 3V PELV/AP/LAT LEFT RADEX HIP UNILATERAL WITH PELVIS 2-3 VIEWS Kelly Calabrese PA-C [address] [place] [address] [place] [address] Referral ID Status Reason Start Date Expiration Date V isits Requested Visits Authorized [id number] Closed Auto-Generate d Referral 02/08/2023 03/09/2024 1 1 [facility] for visit Narrative* Diagnostic Procedure Only (Routine) - Closed Specialty Diagnoses / Procedures Referred By David t Referred To Contact XR IMAGING Diagnoses Pain in right hip Procedures XR HIP GENERAL 3V PELV/AP/LAT RIGHT RADEX HIP UNILATERAL WITH PELVIS 2-3 VIEWS Cathryn Morrell DO [address] [place] [address] [place] [address] Referral ID Status Reason Start Date Expiration Date V isits Requested Visits Authorized [id number] Closed Auto-Generate d Referral 06/28/2022 07/28/2023 1 1 [facility] Reason for Referral Specialty Diagnoses / Procedures Referred By David burnett Referred To Contact MR IMAGING Diagnoses Pain in hip Procedures MRI HIP WO IVCON RT MRI ANY JT LOWER EXTREM W/O CONTRAST MATRL Cathryn Morrell DO [address] [place] [address] Mr Imaging Referral ID Status Reason Start Date Expiration Date Visits Requested Visits Authorized [id number] Pending Review Auto-Generat ed Referral 12/08/2021 01/07/2023 1 1 Specialty Diagnoses / Procedures Referred By David burnett Referred To Contact [facility] Diagnoses Trochanteric bursitis of right hip Iliotibial band syndrome of right side Procedures CONSULT TO PHYSICAL THERAPY PHYSICAL THERAPY EVALUATION HIGH COMPLEX 45 MINS Cathryn Morrell DO [address] [place] [address] [facility] [address] [place] [address] Referral ID Status Reason Start Date Expiration Date Visits Requested Visits Authorized [id number] Pending Review Auto-Generat ed Referral 03/09/2022 03/09/2023 1 1 Referral ID Status Reason Start Date Expiration Date Visits Requested Visits Authorized [id number] Pending Review Auto-Generat ed Referral 04/21/2023 1 1 Specialty Diagnoses / Procedures Referred By David t Referred To Contact MR IMAGING Diagnoses Trochanteric bursitis of right hip Procedures MRI HIP WO IVCON RT MRI ANY JT LOWER EXTREM W/O CONTRAST Cathryn Sousa DO [address] [place] [address] Mr Imaging Referral ID Status Reason Start Date Expiration Date Visits Requested Visits Authorized [id number] Pending Review Auto-Generat ed Referral 08/18/2022 09/17/2023 1 1 Specialty Diagnoses / Procedures Referred By David t Referred To Contact [facility] Diagnoses Strain of calf muscle, left, initial encounter Procedures CONSULT TO PHYSICAL THERAPY PHYSICAL THERAPY EVALUATION HIGH COMPLEX 45 MINS Kelly Calabrese PA-C [address] [place] [address] [facility] [address] [place] [address] Referral ID Status Reason Start Date Expiration Date Visits Requested Visits Authorized [id number] Pending Review Auto-Generat ed Referral 05/12/2023 05/11/2024 [...] 13, 2024 3:04pm Gestational hypertension August 13 025 3:04pm Hemorrhoids August 13, 2024 3 [...] August 13, 2024 3:04pm Supervision of high-risk Carlita hernandez 2024 3:04pm Chronic anemia August 13, 2024 [...] August 26, 2024 12:46pm 12 wk OB March 4th, 2025 2:47 pm 16wk ob October 07, 2024 [...] 12:46pm Inclusion cyst of vulva August 26, 2 025 12:46pm Lymphocytic colitis August 26, 2024 [...] 2024 12:4 4pm Obesity affecting October 15 025 12:44pm Pelvic cramping October 15, 2024 [...] 13, 2024 3:04pm Gestational hypertension August 13 025 3:04pm Hemorrhoids August 13, 2024 3 [...] August 13, 2024 3:04pm Supervision of high-risk Carlita hernandez 2024 3:04pm Chronic anemia August 13, 2024 [...] 2024 12:4 4pm Obesity affecting October 15 025 12:44pm Pelvic floor weakness in female [...] 2024 12:4 4pm Obesity affecting October 15 025 12:44pm Pelvic floor weakness in female [...] anemia January 29, 2025 9:53 am Contraction, Sandoval Osman February 07, 025 11:50am Hx of [...] 2025 9:53 am Obesity affecting January 29 9:53am Pelvic floor weakness in female January 9:53am Perianal candidiasis January 29, 2025 9:5 3am January 29, 2025 9:53 am Rectal pain January 29, 2025 9:53 am Short interval between pregn ancies affecting in first trimester, January 29, 2025 9:53am Supervision of high-risk January 29, 2025 9:53am Chronic anemia January 29, 2025 9:53 am Contraction, Sandoval Osman February 07 025 11:50am Hx of pre-eclampsia in prior , currently February 07, 2025 11:50am Abdominal pain February 13, 2025 3:5 6pm Abnormal glucose affecting Aug ust 2024 3:56pm Advanced maternal age in multigravida Au laura 2024 3:56pm Contraction, Sandoval Osman February 13 025 3:56pm Gestational hypertension February 13 3:56pm Hemorrhoids February 13, 2025 3:5 6pm History of miscarriage, currently pregna nt February 13, 2025 3:56pm Hx of pre-eclampsia in prior , currently February 13, 2025 3:56pm Hx of twin in prior February 13, 2025 3:56pm Inclusion cyst of vulva February 13, 2025 3:56pm LGA (large for gestational age) fetus Au 2024 3:56pm Lymphocytic colitis February 13, 2025 [...] 3:56pm Advanced maternal age in multigravida [facility] 2024 3:56pm Contraction, Sandoval Osman February 13, 2 025 3:56pm Gestational hypertension February 13 3:56pm Hemorrhoids February 13, 2025 3:5 6pm History of miscarriage, currently pregna nt February 13, 2025 3:56pm Hx of pre-eclampsia in prior , currently February 13, 2025 3:56pm Hx of twin in prior February 13, 2025 3:56pm Inclusion cyst of vulva February 13, 2025 3:56pm LGA (large for gestational age) fetus [facility] 2024 3:56pm Lymphocytic colitis February 13, [...] 2025 9:2 8pm Abnormal glucose affecting Feb ust 2024 9:28pm Advanced maternal age in multigravida [facility] 2024 9:28pm Contraction, Sandoval Osman February 14, 025 9:28pm Decreased movement February 14 9:28pm Gestational hypertension February 14 9:28pm Hemorrhoids February 14, 2025 9:2 8pm History of miscarriage, currently pregna nt February 14, 2025 9:28pm Hx of pre-eclampsia in prior , currently February 14, 2025 9:28pm Hx of twin in prior February 14, 2025 9:28pm Inclusion cyst of vulva February 14, 2025 9:28pm LGA (large for gestational age) fetus [facility] 2024 9:28pm Lymphocytic colitis February 14, 2025 [...] 9:53 am Contraction, Romero Osman February 07 2 025 11:50am Hx of pre-eclampsia in prior , currently February 07, 2025 11:50am Abdominal pain February 13, 2025 3:5 6pm Abnormal glucose affecting Aug ust 2024 3:56pm Advanced maternal age in multigravida [facility] 2024 3:56pm Contraction, Sandoval Osman February 13, 2 025 3:56pm Gestational hypertension February 13 3:56pm Hemorrhoids February 13, 2025 3:5 6pm History of miscarriage, currently pregna nt February 13, 2025 3:56pm Hx of pre-eclampsia in prior , currently February 13, 2025 3:56pm Hx of twin in prior February 13, 2025 3:56pm Inclusion cyst of vulva February 13, 2025 3:56pm LGA (large for gestational age) fetus [facility] 2024 3:56pm Lymphocytic colitis February 13, 2025 [...] 2025 9:2 8pm Abnormal glucose affecting Feb 9:28pm Advanced maternal age in multigravida [facility] 2024 9:28pm Contraction, Sandoval Osman February 14 9:28pm Gestational hypertension February 14 9:28pm Hemorrhoids February 14, 2025 9:2 8pm History of miscarriage, currently pregna nt February 14, 2025 9:28pm Hx of pre-eclampsia in prior , currently February 14, 2025 9:28pm Hx of twin in prior February 14, 2025 9:28pm Inclusion cyst of vulva February 14, 2025 9:28pm LGA (large for gestational age) fetus [facility] 2024 9:28pm Lymphocytic colitis February 14, 2025 9:2 8pm Obesity affecting February 14, 2025 9:28pm Pelvic floor weakness in female February [id number] 9:28pm Perianal candidiasis February 14, 2025 9: 28pm February 14, 2025 9:2 8pm Proteinuria affecting February [id number] 9:28pm Rectal pain February 14, 2025 9:2 8pm Short interval between pregn ancies affecting in first trimester, February 14, 2025 9:28pm Supervision of high-risk Febus t 2024 9:28pm Chronic anemia February 14, 2025 9:2 8pm Decreased movement February 14 9:28pm Abdominal pain February 18, 2025 2: 24pm Abnormal glucose affecting Aug ust 2024 2:24pm Advanced maternal age in multigravida [facility] 2024 2:24pm Contraction, Sandoval Osman February 18, 2025 2:24pm Gestational hypertension February 18 2:24pm Hemorrhoids February 18, 2025 2: 24pm History of miscarriage, currently pregna nt February 18, 2025 2:24pm Hx of pre-eclampsia in prior , currently February 18, 2025 2:24pm Hx of twin in prior February 18, 2025 2:24pm Inclusion cyst of vulva February 18 2:24pm LGA (large for gestational age) fetus [facility] 2024 2:24pm Lymphocytic colitis February 18, 2025 [...] anemia January 29, 2025 9:53 am Contraction, Sandoval Osman February 07, 2 025 11:50am Hx of pre-eclampsia in prior , currently February 07, 2025 11:50am Abdominal pain February 13, 2025 3:5 6pm Abnormal glucose affecting Aug ust 2024 3:56pm Advanced maternal age in multigravida [facility] 2024 3:56pm Contraction, Sandoval Osman February 13, 2 025 3:56pm Gestational hypertension February 13 3:56pm Hemorrhoids February 13, 2025 3:5 6pm History of miscarriage, currently pregna nt February 13, 2025 3:56pm Hx of pre-eclampsia in prior , currently February 13, 2025 3:56pm Hx of twin in prior February 13, 2025 3:56pm Inclusion cyst of vulva February 13, 2025 3:56pm LGA (large for gestational age) fetus [facility] 2024 3:56pm Lymphocytic colitis February 13, 2025 [...] 2025 9:2 8pm Abnormal glucose affecting Feb ust 2024 9:28pm Advanced maternal age in multigravida [facility] 2024 9:28pm Contraction, Sandoval Osman February 14, 025 9:28pm Gestational hypertension February 14 9:28pm Hemorrhoids February 14, 2025 9:2 8pm History of miscarriage, currently pregna nt February 14, 2025 9:28pm Hx of pre-eclampsia in prior , currently February 14, 2025 9:28pm Hx of twin in prior February 14, 2025 9:28pm Inclusion cyst of vulva February 14, 2025 9:28pm LGA (large for gestational age) fetus [facility] 2024 9:28pm Lymphocytic colitis February 14, 2025 [...] 18, 2025 2: 24pm Abnormal glucose affecting Aug ust 2024 2:24pm Advanced maternal age in multigravida [facility] 2024 2:24pm Contraction, Sandoval Osman February 18, 2025 2:24pm Gestational hypertension February 18 2:24pm Hemorrhoids February 18, 2025 2: 24pm History of miscarriage, currently pregna nt February 18, 2025 2:24pm Hx of pre-eclampsia in prior , currently February 18, 2025 2:24pm Hx of twin in prior February 18, 2025 2:24pm Inclusion cyst of vulva February 18 2:24pm LGA (large for gestational age) fetus [facility] 2024 2:24pm Lymphocytic colitis February 18, 2025 [...] 2025 2: 48pm Abnormal glucose affecting Feb 2:48pm Advanced maternal age in multigravida [facility] 2024 2:48pm Contraction, Sandoval Osman February 27, 2025 2:48pm Gestational hypertension February 27 2:48pm Hemorrhoids February 27, 2025 2: 48pm History of miscarriage, currently pregna nt February 27, 2025 2:48pm Hx of pre-eclampsia in prior , currently February 27, 2025 2:48pm Hx of twin in prior February 27, 2025 2:48pm Inclusion cyst of vulva February 27 2:48pm LGA (large for gestational age) fetus [facility] 2024 2:48pm Lymphocytic colitis February 27, 2025 [...] 27, 2025 2:48pm Supervision of high-risk Augus t 2024 2:48pm Chronic anemia February 27, 2025 2: 48pm Chief Complaint Admit Date 20wk ob November [...] *Doc Only February 27, 2025 2: 48pm INVERSION February 28, 2025 6: 30am Reason for Visit Admit Date Abdominal pain [...] anemia January 29, 2025 9:53 am Contraction, Sandoval Osman February 07 025 11:50am Hx of pre-eclampsia in prior , currently February 07, 2025 11:50am Abdominal pain February 13, 2025 3:5 6pm Abnormal glucose affecting Feb us2024 3:56pm Advanced maternal age in multigravida [facility] 2024 3:56pm Contraction, Sandoval Osman February 13 025 3:56pm Gestational hypertension February 13 3:56pm Hemorrhoids February 13, 2025 3:5 6pm History of miscarriage, currently pregna nt February 13, 2025 3:56pm Hx of pre-eclampsia in prior , currently February 13, 2025 3:56pm Hx of twin in prior February 13, 2025 3:56pm Inclusion cyst of vulva February 13, 2025 3:56pm LGA (large for gestational age) fetus [facility] 2024 3:56pm Lymphocytic colitis February 13, 2025 [...] [email or web address] 9:28pm Advanced maternal age in multigravida [facility] 2024 9:28pm Contraction, Sandoval Osman February 14 025 9:28pm Gestational hypertension February 14 9:28pm Hemorrhoids February 14, 2025 9:2 8pm History of miscarriage, currently pregna nt February 14, 2025 9:28pm Hx of pre-eclampsia in prior , currently February 14, 2025 9:28pm Hx of twin in prior February 14, 2025 9:28pm Inclusion cyst of vulva February 14, 2025 9:28pm LGA (large for gestational age) fetus [facility] 2024 9:28pm Lymphocytic colitis February 14, 2025 [...] 2025 2: 24pm Abnormal glucose affecting Feb 2:24pm Advanced maternal age in multigravida [facility] 2024 2:24pm Contraction, Sandoval Osman February 18, 2025 2:24pm Gestational hypertension February 18 2:24pm Hemorrhoids February 18, 2025 2: 24pm History of miscarriage, currently pregna nt February 18, 2025 2:24pm Hx of pre-eclampsia in prior , currently February 18, 2025 2:24pm Hx of twin in prior February 18, 2025 2:24pm Inclusion cyst of vulva February 18 2:24pm LGA (large for gestational age) fetus [facility] 2024 2:24pm Lymphocytic colitis February 18, 2025 2: 24pm Obesity affecting February 18, 2025 2:24pm Pelvic floor weakness in female February [id number] 2:24pm Perianal candidiasis February 18, 2025 2 :24pm February 18, 2025 2: 24pm Proteinuria affecting February [id number] 2:24pm Rectal pain February 18, 2025 2: 24pm Short interval between pregn ancies affecting in first trimester, February 18, 2025 2:24pm Supervision of high-risk Febus t 2024 2:24pm Chronic anemia February 18, 2025 2: 24pm Abdominal pain February 27, 2025 2: 48pm Abnormal glucose affecting Feb us2024 2:48pm Advanced maternal age in multigravida [facility] 2024 2:48pm Breech presentation February 27, 2025 2: 48pm Contraction, Sandoval Osman February 27, 2025 2:48pm Gestational hypertension February 27 2:48pm Hemorrhoids February 27, 2025 2: 48pm History of miscarriage, currently pregna nt February 27, 2025 2:48pm Hx of pre-eclampsia in prior , currently February 27, 2025 2:48pm Hx of twin in prior February 27, 2025 2:48pm Inclusion cyst of vulva February 27 2:48pm LGA (large for gestational age) fetus [facility] 2024 2:48pm Lymphocytic colitis February 27, 2025 2: 48pm Obesity affecting February 27, 2025 2:48pm Pelvic floor weakness in female February [id number] 2:48pm Perianal candidiasis February 27, 2025 2 :48pm February 27, 2025 2: 48pm Proteinuria affecting February [id number] 2:48pm Rectal pain February 27, 2025 2: 48pm Short interval between pregn ancies affecting in first trimester, February 27, 2025 2:48pm Supervision of high-risk Feb[facility] 2024 2:48pm Chronic anemia February 27, 2025 2: 48pm Chief Complaint Admit Date 20wk ob November [...] *Doc Only February 27, 2025 2: 48pm INVERSION February 28, 2025 6: 30am INVERSION February 28, 2025 8: 32am 37 wk ob *Doc Only March 05, 2025 1: 59pm Reason for Visit Admit Date Abdominal pain [...] 2025 9:53 am Obesity affecting January 29 9:53am Pelvic floor weakness in female January 9:53am Perianal candidiasis January 29, 2025 9:5 3am January 29, 2025 9:53 am Rectal pain January 29, 2025 9:53 am Short interval between pregn ancies affecting in first trimester, January 29, 2025 9:53am Supervision of high-risk January 29, 2025 9:53am Chronic anemia January 29, 2025 9:53 am Contraction, Sandoval Osman February 07 11:50am Hx of pre-eclampsia in prior , currently February 07, 2025 11:50am Abdominal pain February 13, 2025 3:5 6pm Abnormal glucose affecting Aug ust 2024 3:56pm Advanced maternal age in multigravida [facility] 2024 3:56pm Contraction, Sandoval Osman [facility] [facility], 2 025 3:56pm Gestational hypertension February 13 3:56pm Hemorrhoids February 13, 2025 3:5 6pm History of miscarriage, currently pregna nt February 13, 2025 3:56pm Hx of pre-eclampsia in prior , currently February 13, 2025 3:56pm Hx of twin in prior February 13, 2025 3:56pm Inclusion cyst of vulva February 13, 2025 3:56pm LGA (large for gestational age) fetus [facility] 2024 3:56pm Lymphocytic colitis February 13, 2025 [...] [email or web address] 9:28pm Advanced maternal age in multigravida [facility] 2024 9:28pm Contraction, Sandoval Osman February 14 9:28pm Gestational hypertension February 14 9:28pm Hemorrhoids February 14, 2025 9:2 8pm History of miscarriage, currently pregna nt February 14, 2025 9:28pm Hx of pre-eclampsia in prior , currently February 14, 2025 9:28pm Hx of twin in prior February 14, 2025 9:28pm Inclusion cyst of vulva February 14, 2025 9:28pm LGA (large for gestational age) fetus [facility] 2024 9:28pm Lymphocytic colitis February 14, 2025 [...] 2025 2: 24pm Abnormal glucose affecting Feb 2:24pm Advanced maternal age in multigravida [facility] 2024 2:24pm Contraction, Sandoval Osman February 18, 2025 2:24pm Gestational hypertension February 18 2:24pm Hemorrhoids February 18, 2025 2: 24pm History of miscarriage, currently pregna nt February 18, 2025 2:24pm Hx of pre-eclampsia in prior , currently February 18, 2025 2:24pm Hx of twin in prior February 18, 2025 2:24pm Inclusion cyst of vulva February 18 2:24pm LGA (large for gestational age) fetus [facility] 2024 2:24pm Lymphocytic colitis February 18, 2025 [...] us2024 2:48pm Advanced maternal age in multigravida [facility] 2024 2:48pm Contraction, Romero Osman February 27, 2025 2:48pm Gestational hypertension February 27 2:48pm Hemorrhoids February 27, 2025 2: 48pm History of miscarriage, currently pregna nt February 27, 2025 2:48pm Hx of pre-eclampsia in prior , currently February 27, 2025 2:48pm Hx of twin in prior February 27, 2025 2:48pm Inclusion cyst of vulva February 27 2:48pm LGA (large for gestational age) fetus [facility] 2024 2:48pm Lymphocytic colitis February 27, 2025 [...] 27, 2025 2:48pm Supervision of high-risk Augus t 2024 2:48pm Chronic anemia February 27, 2025 2: 48pm Breech presentation February 27, 2025 2: 48pm Abdominal pain March 05, 2025 1: 59pm Abnormal glucose affecting Feb us 2024 1:59pm Advanced maternal age in multigravida [facility] 2024 1:59pm Contraction, Sandoval Osman March 05, 2025 1:59pm Gestational hypertension March 05 1:59pm Hemorrhoids March 05, 2025 1: 59pm History of miscarriage, currently pregna nt March 05, 2025 1:59pm Hx of pre-eclampsia in prior , currently March 05, 2025 1:59pm Hx of twin in prior March 05, 2025 1:59pm Inclusion cyst of vulva March 05 1:59pm LGA (large for gestational age) fetus [facility] 2024 1:59pm Lymphocytic colitis March 05, 2025 1: 59pm Obesity affecting March 05, 2025 1:59pm Pelvic floor weakness in female February [id number] 1:59pm Perianal candidiasis March 05, 2025 1 :59pm March 05, 2025 1: 59pm Proteinuria affecting February 082024 1:59pm Rectal pain March 05, 2025 1: 59pm Short interval between pregn ancies affecting in first trimester, March 05, 2025 1:59pm Supervision of high-risk Augus t 2024 1:59pm Chronic anemia March 05, 2025 1: 59pm Chief Complaint Admit Date 20wk ob November [...] *Doc Only February 27, 2025 2: 48pm INVERSION February 28, 2025 6: 30am INVERSION February 28, 2025 8: 32am 37 wk ob *Doc Only March 05, 2025 1: 59pm NST March 06, 2025 3: 40pm Reason for Visit Admit Date Abdominal pain [...] Jan 9:53am Advanced maternal age in multigravida [facility] 2024 9:53am Gestational hypertension January 29, [...] anemia January 29, 2025 9:53 am Contraction, Sandoval Osman February 07 025 11:50am Hx of pre-eclampsia in prior , currently February 07, 2025 11:50am Abdominal pain February 13, 2025 3:5 6pm Abnormal glucose affecting Aug ust 2024 3:56pm Advanced maternal age in multigravida [facility] 2024 3:56pm Contraction, Sandoval Osman February 13 025 3:56pm Gestational hypertension February 13 3:56pm Hemorrhoids February 13, 2025 3:5 6pm History of miscarriage, currently pregna nt February 13, 2025 3:56pm Hx of pre-eclampsia in prior , currently February 13, 2025 3:56pm Hx of twin in prior February 13, 2025 3:56pm Inclusion cyst of vulva February 13, 2025 3:56pm LGA (large for gestational age) fetus [facility] 2024 3:56pm Lymphocytic colitis February 13, 2025 [...] 2025 9:2 8pm Abnormal glucose affecting Feb ust 2024 9:28pm Advanced maternal age in multigravida [facility] 2024 9:28pm Contraction, Sandoval Osman February 14 025 9:28pm Gestational hypertension February 14 9:28pm Hemorrhoids February 14, 2025 9:2 8pm History of miscarriage, currently pregna nt February 14, 2025 9:28pm Hx of pre-eclampsia in prior , currently February 14, 2025 9:28pm Hx of twin in prior February 14, 2025 9:28pm Inclusion cyst of vulva February 14, 2025 9:28pm LGA (large for gestational age) fetus [facility] 2024 9:28pm Lymphocytic colitis February 14, 2025 [...] 2025 2: 24pm Abnormal glucose affecting Feb 2:24pm Advanced maternal age in multigravida [facility] 2024 2:24pm Contraction, Sandoval Osman February 18, 2025 2:24pm Gestational hypertension February 18 2:24pm Hemorrhoids February 18, 2025 2: 24pm History of miscarriage, currently pregna nt February 18, 2025 2:24pm Hx of pre-eclampsia in prior , currently February 18, 2025 2:24pm Hx of twin in prior February 18, 2025 2:24pm Inclusion cyst of vulva February 18 2:24pm LGA (large for gestational age) fetus [facility] 2024 2:24pm Lymphocytic colitis February 18, 2025 [...] 2025 2: 48pm Abnormal glucose affecting Feb 2:48pm Advanced maternal age in multigravida [facility] 2024 2:48pm Contraction, Romero Osman February 27, 2025 2:48pm Gestational hypertension February 27 2:48pm Hemorrhoids February 27, 2025 2: 48pm History of miscarriage, currently pregna nt February 27, 2025 2:48pm Hx of pre-eclampsia in prior , currently February 27, 2025 2:48pm Hx of twin in prior February 27, 2025 2:48pm Inclusion cyst of vulva February 27 2:48pm LGA (large for gestational age) fetus [facility] 2024 2:48pm Lymphocytic colitis February 27, 2025 [...] Chronic anemia February 27, 2025 2: 48pm Breech presentation February 27, 2025 2: 48pm Abdominal pain March 05, 2025 1: 59pm Abnormal glucose affecting Feb [facility] 2024 1:59pm Advanced maternal age in multigravida [facility] 2024 1:59pm Contraction, Sandoval Osman March 05, 2025 1:59pm Gestational hypertension March 05 1:59pm Hemorrhoids March 05, 2025 1: 59pm History of miscarriage, currently pregna nt March 05, 2025 1:59pm Hx of pre-eclampsia in prior , currently March 05, 2025 1:59pm Hx of twin in prior March 05, 2025 1:59pm Inclusion cyst of vulva March 05 1:59pm LGA (large for gestational age) fetus [facility] 2024 1:59pm Lymphocytic colitis March 05, 2025 1: 59pm Obesity affecting March 05, 2025 1:59pm Pelvic floor weakness in female February [id number] 1:59pm Perianal candidiasis March 05, 2025 1 :59pm March 05, 2025 1: 59pm Proteinuria affecting February 082024 1:59pm Rectal pain March 05, 2025 1: 59pm Short interval between pregn ancies affecting in first trimester, March 05, 2025 1:59pm Supervision of high-risk Augus t 2024 1:59pm Chronic anemia March 05, 2025 1: 59pm Abdominal pain March 06, 2025 3: 40pm Abnormal glucose affecting [facility] ust 2024 3:40pm Advanced maternal age in multigravida [facility] 2024 3:40pm Contraction, Romero Osman March 06, 2025 3:40pm Gestational hypertension March 06 3:40pm Hemorrhoids March 06, 2025 3: 40pm History of miscarriage, currently pregna nt March 06, 2025 3:40pm Hx of pre-eclampsia in prior , currently March 06, 2025 3:40pm Hx of twin in prior March 06, 2025 3:40pm Inclusion cyst of vulva March 06 3:40pm LGA (large for gestational age) fetus [facility] 2024 3:40pm Lymphocytic colitis March 06, 2025 3: 40pm Obesity affecting March 06, 2025 3:40pm Pelvic floor weakness in female February 082024 3:40pm Perianal candidiasis March 06, 2025 3 :40pm March 06, 2025 3: 40pm Proteinuria affecting February 082024 3:40pm Rectal pain March 06, 2025 3: 40pm Short interval between pregn ancies affecting in first trimester, March 06, 2025 3:40pm [facility] Chronic anemia March 06, 2025 3: 40pm Chief Complaint Admit Date 24 wk ob December 04, 2024 2:48p [...] *Doc Only February 27, 2025 2: 48pm INVERSION February 28, 2025 6: 30am INVERSION February 28, 2025 8: 32am 37 wk ob *Doc Only March 05, 2025 1: 59pm NST March 06, 2025 3: 40pm ABLATION March 06, 2025 4: 35pm ABLATION March 06, 2025 7: 06pm ABLATION March 07, 2025 1: 00am ABLATION March 08, 2025 10 :12am ABLATION March 09, 2025 10 :22am Reason for Visit Admit Date Abdominal pain December 04, 2024 2:48p m [...] 2025 9:53 am Abnormal glucose affecting [facility] 2024 9:53am Advanced maternal age in multigravida [...] anemia January 29, 2025 9:53 am Contraction, Sandoval Osman February 07, 2 025 11:50am Hx [...] 3:56pm LGA (large for gestational age) fetus [facility] 2024 3:56pm Lymphocytic colitis February 13, 2025 [...] 2025 9:2 8pm Abnormal glucose affecting Feb ust 2024 9:28pm Advanced maternal age in multigravida [facility] 2024 9:28pm Contraction, Sandoval Osman February 14, 025 9:28pm Gestational hypertension February 14 9:28pm Hemorrhoids February 14, 2025 9:2 8pm History of miscarriage, currently pregna nt February 14, 2025 9:28pm Hx of pre-eclampsia in prior , currently February 14, 2025 9:28pm Hx of twin in prior February 14, 2025 9:28pm Inclusion cyst of vulva February 14, 2025 9:28pm LGA (large for gestational age) fetus [facility] 2024 9:28pm Lymphocytic colitis February 14, 2025 [...] 18, 2025 2: 24pm Abnormal glucose affecting Aug ust 2024 2:24pm Advanced maternal age in multigravida [facility] 2024 2:24pm Contraction, Romero Osman February 18, 2025 2:24pm Gestational hypertension February 18 2:24pm Hemorrhoids February 18, 2025 2: 24pm History of miscarriage, currently pregna nt February 18, 2025 2:24pm Hx of pre-eclampsia in prior , currently February 18, 2025 2:24pm Hx of twin in prior February 18, 2025 2:24pm Inclusion cyst of vulva February 18 2:24pm LGA (large for gestational age) fetus [facility] 2024 2:24pm Lymphocytic colitis February 18, 2025 [...] 2025 2: 48pm Abnormal glucose affecting Feb 2:48pm Advanced maternal age in multigravida [facility] 2024 2:48pm Contraction, Romero Osman February 27, 2025 2:48pm Gestational hypertension February 27 2:48pm Hemorrhoids February 27, 2025 2: 48pm History of miscarriage, currently pregna nt February 27, 2025 2:48pm Hx of pre-eclampsia in prior , currently February 27, 2025 2:48pm Hx of twin in prior February 27, 2025 2:48pm Inclusion cyst of vulva February 27 2:48pm LGA (large for gestational age) fetus [facility] 2024 2:48pm Lymphocytic colitis February 27, 2025 [...] Chronic anemia February 27, 2025 2: 48pm Breech presentation February 27, 2025 2: 48pm Abdominal pain March 05, 2025 1: 59pm Abnormal glucose affecting [facility] us 2024 1:59pm Advanced maternal age in multigravida [facility] 2024 1:59pm Contraction, Sandoval Osman March 05, 2025 1:59pm Gestational hypertension March 05 1:59pm Hemorrhoids March 05, 2025 1: 59pm History of miscarriage, currently pregna nt March 05, 2025 1:59pm Hx of pre-eclampsia in prior , currently March 05, 2025 1:59pm Hx of twin in prior March 05, 2025 1:59pm Inclusion cyst of vulva March 05 1:59pm LGA (large for gestational age) fetus [facility] 2024 1:59pm Lymphocytic colitis March 05, 2025 1: 59pm Obesity affecting March 05, 2025 1:59pm Pelvic floor weakness in female February 082024 1:59pm Perianal candidiasis March 05, 2025 1 :59pm March 05, 2025 1: 59pm Proteinuria affecting February 082024 1:59pm Rectal pain March 05, 2025 1: 59pm Short interval between pregn ancies affecting in first trimester, March 05, 2025 1:59pm Supervision of high-risk Augus t 2024 1:59pm Chronic anemia March 05, 2025 1: 59pm Abdominal pain March 06, 2025 3: 40pm Abnormal glucose affecting Feb us 2024 3:40pm Advanced maternal age in multigravida [facility] 2024 3:40pm Contraction, Sandoval Osman March 06, 2025 3:40pm Gestational hypertension March 06 3:40pm Hemorrhoids March 06, 2025 3: 40pm History of miscarriage, currently pregna nt March 06, 2025 3:40pm Hx of pre-eclampsia in prior , currently March 06, 2025 3:40pm Hx of twin in prior March 06, 2025 3:40pm Inclusion cyst of vulva March 06 3:40pm LGA (large for gestational age) fetus [facility] 2024 3:40pm Lymphocytic colitis March 06, 2025 3: 40pm Obesity affecting March 06, 2025 3:40pm Pelvic floor weakness in female February 082024 3:40pm Perianal candidiasis March 06, 2025 3 :40pm March 06, 2025 3: 40pm Proteinuria affecting February 082024 3:40pm Rectal pain March 06, 2025 3: 40pm Short interval between pregn ancies affecting in first trimester, March 06, 2025 3:40pm Supervision of high-risk Augus t 2024 3:40pm Chronic anemia March 06, 2025 3: 40pm Abdominal pain March 06, 2025 4: 35pm Abnormal glucose affecting Aug ust 2024 4:35pm Advanced maternal age in multigravida [facility] 2024 4:35pm Contraction, Sandoval Osman March 06, 2025 4:35pm Encounter for induction of labor March 06, 2025 4:35pm History of miscarriage, currently pregna nt March 06, 2025 4:35pm Hx of pre-eclampsia in prior , currently March 06, 2025 4:35pm Hx of twin in prior March 06, 2025 4:35pm Inclusion cyst of vulva March 06 4:35pm LGA (large for gestational age) fetus [facility] 2024 4:35pm Obesity affecting March 06, 2025 4:35pm Pelvic floor weakness in female February [id number] 4:35pm March 06, 2025 4: 35pm Proteinuria affecting February 082024 4:35pm Short interval between pregn ancies affecting in first trimester, March 06, 2025 4:35pm Supervision of high-risk Augus t 2024 4:35pm (spontaneous vaginal delivery) Augus t 2024 4:35pm Unstable lie of fetus March 06, 2025 4:35pm Chief Complaint Admit Date 24 wk ob December 04, 2024 2:48p [...] *Doc Only February 27, 2025 2: 48pm INVERSION February 28, 2025 6: 30am INVERSION February 28, 2025 8: 32am 37 wk ob *Doc Only March 05, 2025 1: 59pm NST March 06, 2025 3: 40pm ABLATION March 06, 2025 4: 35pm ABLATION March 06, 2025 7: 06pm ABLATION March 07, 2025 1: 00am ABLATION March 08, 2025 10 :12am ABLATION March 09, 2025 10 :22am Mastitis March 13, 2025 9:25am Reason for Visit Admit Date Gestational hypertension December 04, 2024 2:48pm Hemorrhoids December 04, 2024 2:48p m Lymphocytic colitis December 04, 2024 2:48p m Perianal candidiasis December 04, 2024 2:48 pm December 04, 2024 2:48p m Rectal pain December 04, 2024 2:48p m Supervision of high-risk November 082024 2:48pm Chronic anemia December 04, 2024 2:48p m Abdominal pain December 04, 2024 2:48p m History of miscarriage, currently pregna nt December 04, 2024 2:48pm Hx of pre-eclampsia in prior , currently December 04, 2024 2:48pm Hx of twin in prior December 04, 2024 2:48pm Inclusion cyst of vulva December 04, 2024 2 :48pm Obesity affecting December 04 2:48pm Pelvic floor weakness in female November 2:48pm Short interval between pregn ancies affecting in first trimester, December 04, 2024 2:48pm Advanced maternal age (AMA) in December 04, 2024 2:48pm Gestational hypertension January 03, 2025 2:52pm Hemorrhoids January 03, 2025 2:52 pm Lymphocytic colitis January 03, 2025 2:52 pm Perianal candidiasis January 03, 2025 2:5 2pm January 03, 2025 2:52 pm Rectal pain January 03, 2025 2:52 pm Supervision of high-risk January 03, 2025 2:52pm Chronic anemia January 03, 2025 2:52 pm Abdominal pain January 03, 2025 2:52 pm Abnormal glucose affecting Ti e 2024 2:52pm History of miscarriage, currently pregna nt January 03, 2025 2:52pm Hx of pre-eclampsia in prior , currently January 03, 2025 2:52pm Hx of twin in prior January 03, 2025 2:52pm Inclusion cyst of vulva January 03, 2025 2:52pm Obesity affecting January 03, 2:52pm Pelvic floor weakness in female December 2:52pm Short interval between pregn ancies affecting in first trimester, January 03, 2025 2:52pm Advanced maternal age (AMA) in January 03, 2025 2:52pm Gestational hypertension January 13, 2025 10:41am Hemorrhoids January 13, 2025 10:41 am Lymphocytic colitis January 13, 2025 10:41 am Perianal candidiasis January 13, 2025 10:4 1am January 13, 2025 10:41 am Rectal pain January 13, 2025 10:41 am Supervision of high-risk January 13, 2025 10:41am Chronic anemia January 13, 2025 10:41 am Abdominal pain January 13, 2025 10:41 am Abnormal glucose affecting Jan 10:41am Advanced maternal age in multigravida [facility] 2024 10:41am History of miscarriage, currently pregna nt January 13, 2025 10:41am Hx of pre-eclampsia in prior , currently January 13, 2025 10:41am Hx of twin in prior January 13, 2025 10:41am Inclusion cyst of vulva January 13, 2025 1 0:41am Obesity affecting January 13 10:41am Pelvic floor weakness in female January 10:41am Short interval between pregn ancies affecting in first trimester, January 13, 2025 10:41am Gestational hypertension January 29, 2025 9:53am Hemorrhoids January 29, 2025 9:53 am Lymphocytic colitis January 29, 2025 9:53 am Perianal candidiasis January 29, 2025 9:5 3am January 29, 2025 9:53 am Rectal pain January 29, 2025 9:53 am Supervision of high-risk January 29, 2025 9:53am Chronic anemia January 29, 2025 9:53 am Abdominal pain January 29, 2025 9:53 am Abnormal glucose affecting Jan 9:53am Advanced maternal age in multigravida [facility] 2024 9:53am History of miscarriage, currently pregna nt January 29, 2025 9:53am Hx of pre-eclampsia in prior , currently January 29, 2025 9:53am Hx of twin in prior January 29, 2025 9:53am Inclusion cyst of vulva January 29, 2025 9:53am Obesity affecting January 29 9:53am Pelvic floor weakness in female January 9:53am Short interval between pregn ancies affecting in first trimester, January 29, 2025 9:53am Contraction, Sandoval Osman February 07 025 11:50am Hx of pre-eclampsia in prior , currently February 07, 2025 11:50am Gestational hypertension February 13 3:56pm Hemorrhoids February 13, 2025 3:5 6pm Lymphocytic colitis February 13, 2025 3:5 6pm Perianal candidiasis February 13, 2025 3: 56pm February 13, 2025 3:5 6pm Rectal pain February 13, 2025 3:5 6pm Supervision of high-risk Augus t 2024 3:56pm Chronic anemia February 13, 2025 3:5 6pm Abdominal pain February 13, 2025 3:5 6pm Abnormal glucose affecting Feb us2024 3:56pm Advanced maternal age in multigravida [facility] 2024 3:56pm Contraction, Sandoval Osman February 13 2 025 3:56pm History of miscarriage, currently pregna nt February 13, 2025 3:56pm Hx of pre-eclampsia in prior , currently February 13, 2025 3:56pm Hx of twin in prior February 13, 2025 3:56pm Inclusion cyst of vulva February 13, 2025 3:56pm LGA (large for gestational age) fetus [facility] 2024 3:56pm Obesity affecting February 13, 2025 3:56pm Pelvic floor weakness in female February 132024 3:56pm Short interval between pregn ancies affecting in first trimester, February 13, 2025 3:56pm Gestational hypertension February 14 9:28pm Hemorrhoids February 14, 2025 9:2 8pm Lymphocytic colitis February 14, 2025 9:2 8pm Perianal candidiasis February 14, 2025 9: 28pm February 14, 2025 9:2 8pm Rectal pain February 14, 2025 9:2 8pm Supervision of high-risk Febus t 2024 9:28pm Chronic anemia February 14, 2025 9:2 8pm Abdominal pain February 14, 2025 9:2 8pm Abnormal glucose affecting Feb us2024 9:28pm Advanced maternal age in multigravida [facility] 2024 9:28pm Contraction, Sandoval Osman February 14 2 025 9:28pm Decreased movement February 14 9:28pm History of miscarriage, currently pregna nt February 14, 2025 9:28pm Hx of pre-eclampsia in prior , currently February 14, 2025 9:28pm Hx of twin in prior February 14, 2025 9:28pm Inclusion cyst of vulva February 14, 2025 9:28pm LGA (large for gestational age) fetus [facility] 2024 9:28pm Obesity affecting February 14, 2025 9:28pm Pelvic floor weakness in female February 142024 9:28pm Proteinuria affecting February 142024 9:28pm Short interval between pregn ancies affecting in first trimester, February 14, 2025 9:28pm Gestational hypertension February 18 2:24pm Hemorrhoids February 18, 2025 2: 24pm Lymphocytic colitis February 18, 2025 2: 24pm Perianal candidiasis February 18, 2025 2 :24pm February 18, 2025 2: 24pm Rectal pain February 18, 2025 2: 24pm Supervision of high-risk Augus t 2024 2:24pm Chronic anemia February 18, 2025 2: 24pm Abdominal pain February 18, 2025 2: 24pm Abnormal glucose affecting Feb us2024 2:24pm Advanced maternal age in multigravida [facility] 2024 2:24pm Contraction, Romero Osman February 18, 2025 2:24pm History of miscarriage, currently pregna nt February 18, 2025 2:24pm Hx of pre-eclampsia in prior , currently February 18, 2025 2:24pm Hx of twin in prior February 18, 2025 2:24pm Inclusion cyst of vulva February 18 2:24pm LGA (large for gestational age) fetus [facility] 2024 2:24pm Obesity affecting February 18, 2025 2:24pm Pelvic floor weakness in female February 072024 2:24pm Proteinuria affecting February 072024 2:24pm Short interval between pregn ancies affecting in first trimester, February 18, 2025 2:24pm Gestational hypertension February 27 2:48pm Hemorrhoids February 27, 2025 2: 48pm Lymphocytic colitis February 27, 2025 2: 48pm Perianal candidiasis February 27, 2025 2 :48pm February 27, 2025 2: 48pm Rectal pain February 27, 2025 2: 48pm Supervision of high-risk Febus t 2024 2:48pm Chronic anemia February 27, 2025 2: 48pm Abdominal pain February 27, 2025 2: 48pm Abnormal glucose affecting Feb us2024 2:48pm Advanced maternal age in multigravida [facility] 2024 2:48pm Breech presentation February 27, 2025 2: 48pm Contraction, Sandoval Osman February 27, 2025 2:48pm History of miscarriage, currently pregna nt February 27, 2025 2:48pm Hx of pre-eclampsia in prior , currently February 27, 2025 2:48pm Hx of twin in prior February 27, 2025 2:48pm Inclusion cyst of vulva February 27 2:48pm LGA (large for gestational age) fetus [facility] 2024 2:48pm Obesity affecting February 27, 2025 2:48pm Pelvic floor weakness in female February 082024 2:48pm Proteinuria affecting February 082024 2:48pm Short interval between pregn ancies affecting in first trimester, February 27, 2025 2:48pm Gestational hypertension March 05 1:59pm Hemorrhoids March 05, 2025 1: 59pm Lymphocytic colitis March 05, 2025 1: 59pm Perianal candidiasis March 05, 2025 1 :59pm March 05, 2025 1: 59pm Rectal pain March 05, 2025 1: 59pm Supervision of high-risk Augus t 2024 1:59pm Chronic anemia March 05, 2025 1: 59pm Abdominal pain March 05, 2025 1: 59pm Abnormal glucose affecting Aug ust 2024 1:59pm Advanced maternal age in multigravida [facility] 2024 1:59pm Contraction, Sandoval Osman March 05, 2025 1:59pm History of miscarriage, currently pregna nt March 05, 2025 1:59pm Hx of pre-eclampsia in prior , currently March 05, 2025 1:59pm Hx of twin in prior March 05, 2025 1:59pm Inclusion cyst of vulva March 05 1:59pm LGA (large for gestational age) fetus [facility] 2024 1:59pm Obesity affecting March 05, 2025 1:59pm Pelvic floor weakness in female February 082024 1:59pm Proteinuria affecting February 082024 1:59pm Short interval between pregn ancies affecting in first trimester, March 05, 2025 1:59pm Gestational hypertension March 06 3:40pm Hemorrhoids March 06, 2025 3: 40pm Lymphocytic colitis March 06, 2025 3: 40pm Perianal candidiasis March 06, 2025 3 :40pm March 06, 2025 3: 40pm Rectal pain March 06, 2025 3: 40pm Supervision of high-risk Augus t 2024 3:40pm Chronic anemia March 06, 2025 3: 40pm Abdominal pain March 06, 2025 3: 40pm Abnormal glucose affecting [facility] 2024 3:40pm Advanced maternal age in multigravida [facility] 2024 3:40pm Contraction, Sandoval Osman March 06, 2025 3:40pm History of miscarriage, currently pregna nt March 06, 2025 3:40pm Hx of pre-eclampsia in prior , currently March 06, 2025 3:40pm Hx of twin in prior March 06, 2025 3:40pm Inclusion cyst of vulva March 06 3:40pm LGA (large for gestational age) fetus [facility] 2024 3:40pm Obesity affecting March 06, 2025 3:40pm Pelvic floor weakness in female February 082024 3:40pm Proteinuria affecting February 082024 3:40pm Short interval between pregn ancies affecting in first trimester, March 06, 2025 3:40pm March 06, 2025 4: 35pm [facility]vision of high-risk [facility] 4:[facility] 4:35[facility] Abdominal pain March 06, 2025 4: 35pm Abnormal glucose affecting [facility] 2024 4:35pm Advanced maternal age in multigravida [facility] 2024 4:35pm Contraction, Romero Osman March 06, 2025 4:35pm Encounter for induction of labor March 06, 2025 4:35pm History of miscarriage, currently pregna nt March 06, 2025 4:35pm Hx of pre-eclampsia in prior , currently March 06, 2025 4:35pm Hx of twin in prior March 06, 2025 4:35pm Inclusion cyst of vulva March 06 4:35pm LGA (large for gestational age) fetus [facility] 2024 4:35pm Obesity affecting March 06, 2025 4:35pm Pelvic floor weakness in female February 082024 4:35pm Proteinuria affecting February 082024 4:35pm Short interval between pregn ancies affecting in first trimester, March 06, 2025 4:35pm Unstable lie of fetus March 06, 2025 4:35pm Mastitis associated with Renee mbadamaris 2024 9:25am Chief Complaint Admit Date EORDERS/DRAW AT 11:10 December 26, 2024 10 [...] *Doc Only February 27, 2025 2: 48pm INVERSION February 28, 2025 6: 30am INVERSION February 28, 2025 8: 32am 37 wk ob *Doc Only March 05, 2025 1: 59pm NST March 06, 2025 3: 40pm ABLATION March 06, 2025 4: 35pm ABLATION March 06, 2025 7: 06pm ABLATION March 07, 2025 1: 00am ABLATION March 08, 2025 10 :12am ABLATION March 09, 2025 10 :22am Mastitis March 13, 2025 9:25am POST DELIVERY DISCUSS/SCHEDULE HEMORRHOI DECTOMY April 15, 2025 9:00am Reason for Visit Admit Date Gestational hypertension January 03, 2025 2:52pm Hemorrhoids January 03, 2025 2:52 pm Lymphocytic colitis January 03, 2025 2:52 pm Perianal candidiasis January 03, 2025 2:5 2pm January 03, 2025 2:52 pm Rectal pain January 03, 2025 2:52 pm Supervision of high-risk January 03, 2025 2:52pm Chronic anemia January 03, 2025 2:52 pm Abdominal pain January 03, 2025 2:52 pm Abnormal glucose affecting Ti e 2024 2:52pm History of miscarriage, currently pregna nt January 03, 2025 2:52pm Hx of pre-eclampsia in prior , currently January 03, 2025 2:52pm Hx of twin in prior January 03, 2025 2:52pm Inclusion cyst of vulva January 03, 2025 2:52pm Obesity affecting January 03 2:52pm Pelvic floor weakness in female December 2:52pm Short interval between pregn ancies affecting in first trimester, January 03, 2025 2:52pm Advanced maternal age (AMA) in January 03, 2025 2:52pm Gestational hypertension January 13, 2025 10:41am Hemorrhoids January 13, 2025 10:41 am Lymphocytic colitis January 13, 2025 10:41 am Perianal candidiasis January 13, 2025 10:4 1am January 13, 2025 10:41 am Rectal pain January 13, 2025 10:41 am Supervision of high-risk January 13, 2025 10:41am Chronic anemia January 13, 2025 10:41 am Abdominal pain January 13, 2025 10:41 am Abnormal glucose affecting Jan 10:41am Advanced maternal age in multigravida [facility] 2024 10:41am History of miscarriage, currently pregna nt January 13, 2025 10:41am Hx of pre-eclampsia in prior , currently January 13, 2025 10:41am Hx of twin in prior January 13, 2025 10:41am Inclusion cyst of vulva January 13, 2025 1 0:41am Obesity affecting January 13 10:41am Pelvic floor weakness in female January 10:41am Short interval between pregn ancies affecting in first trimester, January 13, 2025 10:41am Gestational hypertension January 29, 2025 9:53am Hemorrhoids January 29, 2025 9:53 am Lymphocytic colitis January 29, 2025 9:53 am Perianal candidiasis January 29, 2025 9:5 3am January 29, 2025 9:53 am Rectal pain January 29, 2025 9:53 am Supervision of high-risk January 29, 2025 9:53am Chronic anemia January 29, 2025 9:53 am Abdominal pain January 29, 2025 9:53 am Abnormal glucose affecting Matty y 2024 9:53am Advanced maternal age in multigravida [facility] 2024 9:53am History of miscarriage, currently pregna nt January 29, 2025 9:53am Hx of pre-eclampsia in prior , currently January 29, 2025 9:53am Hx of twin in prior January 29, 2025 9:53am Inclusion cyst of vulva January 29, 2025 9:53am Obesity affecting January 29 025 9:53am Pelvic floor weakness in female January 9:53am Short interval between pregn ancies affecting in first trimester, January 29, 2025 9:53am Contraction, Sandoval Osman February 07, 2 025 11:50am Hx of pre-eclampsia in prior , currently February 07, 2025 11:50am Gestational hypertension February 13 3:56pm Hemorrhoids February 13, 2025 3:5 6pm Lymphocytic colitis February 13, 2025 3:5 6pm Perianal candidiasis February 13, 2025 3: 56pm February 13, 2025 3:5 6pm Rectal pain February 13, 2025 3:5 6pm Supervision of high-risk Augus t 2024 3:56pm Chronic anemia February 13, 2025 3:5 6pm Abdominal pain February 13, 2025 3:5 6pm Abnormal glucose affecting Aug ust 2024 3:56pm Advanced maternal age in multigravida [facility] 2024 3:56pm Contraction, Sandoval Osman February 13, 2 025 3:56pm History of miscarriage, currently pregna nt February 13, 2025 3:56pm Hx of pre-eclampsia in prior , currently February 13, 2025 3:56pm Hx of twin in prior February 13, 2025 3:56pm Inclusion cyst of vulva February 13, 2025 3:56pm LGA (large for gestational age) fetus [facility] 2024 3:56pm Obesity affecting February 13, 2025 3:56pm Pelvic floor weakness in female February 132024 3:56pm Short interval between pregn ancies affecting in first trimester, February 13, 2025 3:56pm Gestational hypertension February 14 9:28pm Hemorrhoids February 14, 2025 9:2 8pm Lymphocytic colitis February 14, 2025 9:2 8pm Perianal candidiasis February 14, 2025 9: 28pm February 14, 2025 9:2 8pm Rectal pain February 14, 2025 9:2 8pm Supervision of high-risk Augus t 2024 9:28pm Chronic anemia February 14, 2025 9:2 8pm Abdominal pain February 14, 2025 9:2 8pm Abnormal glucose affecting Feb ust 2024 9:28pm Advanced maternal age in multigravida [facility] 2024 9:28pm Contraction, Sandoval Osman February 14, 025 9:28pm Decreased movement February 14 9:28pm History of miscarriage, currently pregna nt February 14, 2025 9:28pm Hx of pre-eclampsia in prior , currently February 14, 2025 9:28pm Hx of twin in prior February 14, 2025 9:28pm Inclusion cyst of vulva February 14, 2025 9:28pm LGA (large for gestational age) fetus [facility] 2024 9:28pm Obesity affecting February 14, 2025 9:28pm Pelvic floor weakness in female February 142024 9:28pm Proteinuria affecting February 142024 9:28pm Short interval between pregn ancies affecting in first trimester, February 14, 2025 9:28pm Gestational hypertension February 18 2:24pm Hemorrhoids February 18, 2025 2: 24pm Lymphocytic colitis February 18, 2025 2: 24pm Perianal candidiasis February 18, 2025 2 :24pm February 18, 2025 2: 24pm Rectal pain February 18, 2025 2: 24pm Supervision of high-risk Augus t 2024 2:24pm Chronic anemia February 18, 2025 2: 24pm Abdominal pain February 18, 2025 2: 24pm Abnormal glucose affecting Aug ust 2024 2:24pm Advanced maternal age in multigravida [facility] 2024 2:24pm Contraction, Sandoval Osman February 18, 2025 2:24pm History of miscarriage, currently pregna nt February 18, 2025 2:24pm Hx of pre-eclampsia in prior , currently February 18, 2025 2:24pm Hx of twin in prior February 18, 2025 2:24pm Inclusion cyst of vulva February 18 2:24pm LGA (large for gestational age) fetus [facility] 2024 2:24pm Obesity affecting February 18, 2025 2:24pm Pelvic floor weakness in female February 072024 2:24pm Proteinuria affecting February 072024 2:24pm Short interval between pregn ancies affecting in first trimester, February 18, 2025 2:24pm Gestational hypertension February 27 2:48pm Hemorrhoids February 27, 2025 2: 48pm Lymphocytic colitis February 27, 2025 2: 48pm Perianal candidiasis February 27, 2025 2 :48pm February 27, 2025 2: 48pm Rectal pain February 27, 2025 2: 48pm Supervision of high-risk Augus 2024 2:48pm Chronic anemia February 27, 2025 2: 48pm Abdominal pain February 27, 2025 2: 48pm Abnormal glucose affecting Feb 2:48pm Advanced maternal age in multigravida [facility] 2024 2:48pm Breech presentation February 27, 2025 2: 48pm Contraction, Romero Osman February 27, 2025 2:48pm History of miscarriage, currently pregna nt February 27, 2025 2:48pm Hx of pre-eclampsia in prior , currently February 27, 2025 2:48pm Hx of twin in prior February 27, 2025 2:48pm Inclusion cyst of vulva February 27 2:48pm LGA (large for gestational age) fetus [facility] 2024 2:48pm Obesity affecting February 27, 2025 2:48pm Pelvic floor weakness in female February 082024 2:48pm Proteinuria affecting February 082024 2:48pm Short interval between pregn ancies affecting in first trimester, February 27, 2025 2:48pm Gestational hypertension March 05 1:59pm Hemorrhoids March 05, 2025 1: 59pm Lymphocytic colitis March 05, 2025 1: 59pm Perianal candidiasis March 05, 2025 1 :59pm March 05, 2025 1: 59pm Rectal pain March 05, 2025 1: 59pm Supervision of high-risk Augus t 2024 1:59pm Chronic anemia March 05, 2025 1: 59pm Abdominal pain March 05, 2025 1: 59pm Abnormal glucose affecting Feb ust 2024 1:59pm Advanced maternal age in multigravida [facility] 2024 1:59pm Contraction, Sandoval Osman March 05, 2025 1:59pm History of miscarriage, currently pregna nt March 05, 2025 1:59pm Hx of pre-eclampsia in prior , currently March 05, 2025 1:59pm Hx of twin in prior March 05, 2025 1:59pm Inclusion cyst of vulva March 05 1:59pm LGA (large for gestational age) fetus [facility] 2024 1:59pm Obesity affecting March 05, 2025 1:59pm Pelvic floor weakness in female February 082024 1:59pm Proteinuria affecting February 082024 1:59pm Short interval between pregn ancies affecting in first trimester, March 05, 2025 1:59pm Gestational hypertension March 06 3:40pm Hemorrhoids March 06, 2025 3: 40pm Lymphocytic colitis March 06, 2025 3: 40pm Perianal candidiasis March 06, 2025 3 :40pm March 06, 2025 3: 40pm Rectal pain March 06, 2025 3: 40pm Supervision of high-risk Augus t 2024 3:40pm Chronic anemia March 06, 2025 3: 40pm Abdominal pain March 06, 2025 3: 40pm Abnormal glucose affecting Feb [facility] 2024 3:40pm Advanced maternal age in multigravida [facility] 2024 3:40pm Contraction, Sandoval Osman March 06, 2025 3:40pm History of miscarriage, currently pregna nt March 06, 2025 3:40pm Hx of pre-eclampsia in prior , currently March 06, 2025 3:40pm Hx of twin in prior March 06, 2025 3:40pm Inclusion cyst of vulva March 06 3:40pm LGA (large for gestational age) fetus [facility] 2024 3:40pm Obesity affecting March 06, 2025 3:40pm Pelvic floor weakness in female February 082024 3:40pm Proteinuria affecting February 082024 3:40pm Short interval between pregn ancies affecting in first trimester, March 06, 2025 3:40pm March 06, 2025 4: 35pm Supervision of high-risk Augus t 2024 4:35pm [facility] Abdominal pain March 06, 2025 4: 35pm Abnormal glucose affecting [facility] 2024 4:35pm Advanced maternal age in multigravida [facility] 2024 4:35pm Contraction, Romero Osman March 06, 2025 4:35pm Encounter for induction of labor March 06, 2025 4:35pm History of miscarriage, currently pregna nt March 06, 2025 4:35pm Hx of pre-eclampsia in prior , currently March 06, 2025 4:35pm Hx of twin in prior March 06, 2025 4:35pm Inclusion cyst of vulva March 06 4:35pm LGA (large for gestational age) fetus [facility] 2024 4:35pm Obesity affecting March 06, 2025 4:35pm Pelvic floor weakness in female February 082024 4:35pm Proteinuria affecting February 082024 4:35pm Short interval between pregn ancies affecting in first trimester, March 06, 2025 4:35pm Unstable lie of fetus March 06, 2025 4:35pm Mastitis associated with Kristi jay 2024 9:25am Family History No Family History Records Found Relationship Condition Age at Onset Recorded Date/T [...] breast Unknown Diabetes mellitus Unknown Advance Directives No Advanced Directives Records Found Advance Directive Response Recorded Date/ Time Advance Directives No August 12:13pm Living Will No September 01 12:13pm Power of Hadoop Infrastructure Architect No September 01, 2021 12:13pm Advance Directive Response Recorded Date/ Time Advance Directives No August 11:13am Living Will No September 01 11:13am Power of Hadoop Infrastructure Architect No September 01, 2021 11:13am Advance Directive Response Recorded Date/ Time Advance Directives No August 12:13pm Living Will No December 08, 2022 9 :03am Power of Hadoop Infrastructure Architect No December 08, 2022 9:03am Advance Directive Response Recorded Date/ Time Advance Directives No August 11:13am Living Will No December 08, 2022 8 :03am Power of Hadoop Infrastructure Architect No December 08, 2022 8:03am Advance Directive Response Recorded Date/ Time Living Will Yes March 21, 2024 11:01am Power of Hadoop Infrastructure Architect Yes March 11:01am Advance Directives No July 18, 2024 11:52am Living Will Yes June 04 4:15pm Power of Hadoop Infrastructure Architect Yes June 04, 2024 4:15pm Name of Medical Power of Hadoop Infrastructure Architect June 04, 2024 4:15pm Advance Directive Response Recorded Date/ Time Living Will Yes March 21, 2024 11:01am Do you have a Healthcare Power of Hadoop Infrastructure Architect? Yes March 21, 2024 11:01am Advance Directives No July 18, 2024 11:52am Living Will Yes June 04 4:15pm Do you have a Healthcare Power of Hadoop Infrastructure Architect? Yes June 04, 2024 4:15pm Name of Medical Power of Hadoop Infrastructure Architect June 04, 2024 4:15pm Advance Directive Response Recorded Date/ Time Living Will Yes March 21, 2024 11:01am Do you have a Healthcare Power of Hadoop Infrastructure Architect? Yes March 21, 2024 11:01am Advance Directives No July 18, 2024 11:52am Living Will Yes October 11, 2024 9:53pm Do you have a Healthcare Power of Hadoop Infrastructure Architect? Yes October 11, 2024 9:53pm Name of Medical Power of Hadoop Infrastructure Architect October 11, 2024 9:53pm Advance Directive Response Recorded Date/ Time Advance Directives No July 18, 2024 11:52am Living Will Yes October 11, 2024 9:53pm Do you have a Healthcare Power of Hadoop Infrastructure Architect? Yes October 11, 2024 9:53pm Name of Medical Power of Hadoop Infrastructure Architect October 11, 2024 9:53pm Advance Directive Response Recorded Date/ Time Living Will Yes October 11, 2024 9:53pm Do you have a Healthcare Power of Hadoop Infrastructure Architect? Yes October 11, 2024 9:53pm Name of Medical Power of Hadoop Infrastructure Architect October 11, 2024 9:53pm Advance Directives No July 18, 2024 11:52am Advance Directive Response Recorded Date/ Time Living Will Yes October 11, 2024 9:53pm Do you have a Healthcare Power of Hadoop Infrastructure Architect? Yes October 11, 2024 9:53pm Name of Medical Power of Hadoop Infrastructure Architect October 11, 2024 9:53pm Advance Directives No January 13 11:12am Advance Directive Response Recorded Date/ Time Advance Directives No January 13 11:12am Advance Directive Response Recorded Date/ Time Do you have a Healthcare Power of Hadoop Infrastructure Architect? Yes March 06, 2025 4:59pm Name of Medical Power of Hadoop Infrastructure Architect Alvarez Valente March 06, 2025 4:59pm Advance Directives No January 13 11:12am Advance Directive Response Recorded Date/ Time Advance Directives No March 12:06pm Do you have a Healthcare Power of Hadoop Infrastructure Architect? Yes March 06, 2025 4:59pm Name of Medical Power of Hadoop Infrastructure Architect Alvarez Valente March 06, 2025 4:59pm Medications Administered Section Inactive Administered Medications - [...] or prosecute any alcohol or drug abuse patient.[facility] the event this information is protected by the Federal Confidentiality of Alcohol and Drug Abuse Patient Records regulations: The Federal rules restrict any use of the information to criminally investigate or prosecute any alcohol or drug abuse patient.[facility] Hospital[facility] the event this information is protected by the Federal Confidentiality of Alcohol and Drug Abuse Patient Records regulations: The Federal rules restrict any use of the information to criminally investigate or prosecute any alcohol or drug abuse patient.[facility] Hospital[facility] the event this information is protected by the Federal Confidentiality of Alcohol and Drug Abuse Patient Records regulations: The Federal rules restrict any use of the information to criminally investigate or prosecute any alcohol or drug abuse patient.[facility] HospitalIn the event this information is protected by the Federal Confidentiality of Alcohol and Drug Abuse Patient Records regulations: The Federal rules restrict any use of the information to criminally investigate or prosecute any alcohol or drug abuse patient.[facility] HospitalIn the event this information is protected by the Federal Confidentiality of Alcohol and Drug Abuse Patient Records regulations: The Federal rules restrict any use of the information to criminally investigate or prosecute any alcohol or drug abuse patient.[facility] HospitalIn the event this information is protected by the Federal Confidentiality of Alcohol and Drug Abuse Patient Records regulations: The Federal rules restrict any use of the information to criminally investigate or prosecute any alcohol or drug abuse patient.[facility] HospitalIn the event this information is protected by the Federal Confidentiality of Alcohol and Drug Abuse Patient Records regulations: The Federal rules restrict any use of the information to criminally investigate or prosecute any alcohol or drug abuse patient.[facility] HospitalIn the event this information is protected by the Federal Confidentiality of Alcohol and Drug Abuse Patient Records regulations: The Federal rules restrict any use of the information to criminally investigate or prosecute any alcohol or drug abuse patient.[facility] HospitalIn the event this information is protected by the Federal Confidentiality of Alcohol and Drug Abuse Patient Records regulations: The Federal rules restrict any use of the information to criminally investigate or prosecute any alcohol or drug abuse patient.[facility] HospitalIn the event this information is protected by the Federal Confidentiality of Alcohol and Drug Abuse Patient Records regulations: The Federal rules restrict any use of the information to criminally investigate or prosecute any alcohol or drug abuse patient.[facility] HospitalIn the event this information is protected by the Federal Confidentiality of Alcohol and Drug Abuse Patient Records regulations: The Federal rules restrict any use of the information to criminally investigate or prosecute any alcohol or drug abuse patient.[facility] HospitalIn the event this information is protected by the Federal Confidentiality of Alcohol and Drug Abuse Patient Records regulations: The Federal rules restrict any use of the information to criminally investigate or prosecute any alcohol or drug abuse patient.[facility] HospitalIn the event this information is protected by the Federal Confidentiality of Alcohol and Drug Abuse Patient Records regulations: The Federal rules restrict any use of the information to criminally investigate or prosecute any alcohol or drug abuse patient.[facility] HospitalIn the event this information is protected by the Federal Confidentiality of Alcohol and Drug Abuse Patient Records regulations: The Federal rules restrict any use of the information to criminally investigate or prosecute any alcohol or drug abuse patient.[facility] HospitalIn the event this information is protected by the Federal Confidentiality of Alcohol and Drug Abuse Patient Records regulations: The Federal rules restrict any use of the information to criminally investigate or prosecute any alcohol or drug abuse patient.[facility] HospitalIn the event this information is protected by the Federal Confidentiality of Alcohol and Drug Abuse Patient Records regulations: The Federal rules restrict any use of the information to criminally investigate or prosecute any alcohol or drug abuse patient.[facility] HospitalIn the event this information is protected by the Federal Confidentiality of Alcohol and Drug Abuse Patient Records regulations: The Federal rules restrict any use of the information to criminally investigate or prosecute any alcohol or drug abuse patient.[facility] HospitalIn the event this information is protected by the Federal Confidentiality of Alcohol and Drug Abuse Patient Records regulations: The Federal rules restrict any use of the information to criminally investigate or prosecute any alcohol or drug abuse patient.[facility] HospitalIn the event this information is protected by the Federal Confidentiality of Alcohol and Drug Abuse Patient Records regulations: The Federal rules restrict any use of the information to criminally investigate or prosecute any alcohol or drug abuse patient.[facility] HospitalIn the event this information is protected by the Federal Confidentiality of Alcohol and Drug Abuse Patient Records regulations: The Federal rules restrict any use of the information to criminally investigate or prosecute any alcohol or drug abuse patient.[facility] Reason for Visit (unrecogniz ed section and content) Reason Comments New Pain Specialty Diagnoses / Procedures Referred By Contac t Referred To Contact Diagnoses OV Procedures OV Self [facility] Dept Referral ID Status Reason Start Date Expiration Date V isits Requested Visits Authorized [id number] Closed Patient Cleared - Qualified 100% FAS 12/03/2021 03/03/2022 99 99 Reason Comments Follow Up Pain Reason Comments Appointment Reason Comments Radiology US Specialty Diagnoses / Procedures Referred By Contac t Referred To Contact US IMAGING Diagnoses Right calf pain Procedures US DVT LOWER RT DUP-SCAN XTR VEINS UNILATERAL/LIMITED STUDY Kelly Johnson PA-C [address] [place] [address] Us Imaging Referral ID Status Reason Start Date Expiration Date V isits Requested Visits Authorized [id number] Closed Auto-Generate d Referral 02/28/2022 03/30/2023 1 [...] ESTABLISH Self Cathryn Morrell DO [address] [place] [address] Referral ID Status Reason Start Date Expiration Date V isits Requested Visits Authorized [id number] Authorized 08/17/2022 07/09/2023 99 99 Reason Comments [...] June 24, 2024 End: June 24, 2024 VERN GarzaC Attending Provider Active Start: June 24, 2024 [...] 26, 2024 End: August 26, 2024 Suyapa Godinze CNM Attending Provider Active S tart: August [...] September 10, 2024 End: September 10, 2024 Market Superintendent Relationship Specialty Start Date End Date ZewaJ Luis lundy (Historic) PCP - General Internal Medicine 07/19/10 Market Superintendent Relationship Specialty Start Date End Date ZeJ Luis chery (Historic) PCP - General Internal Medicine 07/19/10 Market Superintendent Relationship Specialty Start Date End Date ZewaJ Luis lundy (Historic) PCP - General Internal Medicine 07/19/10 Market Superintendent Relationship Specialty Start Date End Date ZeJ Luis chery (Historic) PCP - General Internal Medicine 07/19/10 Market Superintendent Relationship Specialty Start Date End Date ZewaJ Luis lundy (Historic) PCP - General Internal Medicine 07/19/10 Market Superintendent Relationship Specialty Start Date End Date ZeJ Luis chery (Historic) PCP - General Internal Medicine 07/19/10 Market Superintendent Relationship Specialty Start Date End Date J Luis Jacobson (Historic) PCP - General Internal Medicine 07/19/10 Market Superintendent Relationship Specialty Start Date End Date J Luis Jacobson (Historic) PCP - General Internal Medicine 07/19/10 Market Superintendent Relationship Specialty Start Date End Date J [...] , DO Primary Care Provider Active Chay VALERIO PA Attending Provider Active Team Status: Active [...] Smith DO Primary Care Provider Active Dr. Cathryn Morrell , DO Attending Provider, Ref erring Provider Active Team Status: Active Member Role Status Dates Dr. Cholo Smith DO Primary Care Prov ider, Attending Provider, Referring Provider Active Market Superintendent Relationship Specialty Start Date End Date J Luis Jacobson (Historic) PCP - General Internal Medicine 07/19/10 Team Status: Inactive Member Role Status Dates Dr. Cholo Smith DO Primary Care Prov ider, Attending Provider, Referring Provider Active Market Superintendent Relationship Specialty Start Date End Date J Luis Jacobson (Historic) PCP - General Internal Medicine 07/19/10 Market Superintendent Relationship Specialty Start Date End Date J Luis Jacobson (Historic) PCP - General Internal Medicine 07/19/10 Market Superintendent Relationship Specialty Start Date End Date J Luis Jacobson (Historic) PCP - General Internal Medicine 07/19/10 11/07/22 Team Status: Inactive Member Role Status Dates Dr. Cholo Smith DO Primary Care Provider, Referrin g Provider Active Dennis Goode LEAD RETAIL SALES ASSOCIATE, LEAD RETAIL SALES ASSOCIATE-C Attending Provider Active Team Status: Inactive Member Role Status Dates Dr. Cholo Smith DO Primary Care Provider Active Dr. Santi Pelayo MD Emergency Provider Active Market Superintendent Relationship Specialty Start Date End Date Cholo Smith DO [address] [place], [place] [id number] PCP - General Family Medicine 11/08/22 Market Superintendent Relationship Specialty Start Date End Date Cholo Smith DO [address] [place], [place] [address] PCP - General Family Medicine 11/08/22 Team Status: Inactive Member Role Status Dates Dr. Cholo Smith DO Primary Care Provider, Referrin g Provider Active Maximo Coffman PA, PA Attending Provider Active Team Status: Inactive Member Role Status Dates Dr. Cholo Smith DO Primary Care Provider Active Dr. Santi Pelayo MD Attending Provider, Emergency Provider Active Team Status: Inactive Member Role Status Dates Dr. Cholo Smith DO Primary Care Provider Active VERN MistryC Attending Provider, Referring Prov ider Active Market Superintendent Relationship Specialty Start Date End Date Cholo Smith DO [address] [place] [address] PCP - General Family Medicine 11/08/22 Team Status: Inactive Member Role Status Dates Dr. Cholo Smith DO Primary Care Provider, Attendin g Provider [...] MD Attending Provider, Referr ing Provider Active Market Superintendent Relationship Specialty Start Date End Date Cholo Smith DO [address] [facility] [place] [address] PCP - General Family Medicine 11/08/22 Market Superintendent Relationship Specialty Start Date End Date J [...] 2024 End: December 04, 2024 Dr. Cholo mSith DO Referring Provider Active Start: December 04, [...] Active Start: February 05, 2025 Danya Simpson LEAD RETAIL SALES ASSOCIATE, LEAD RETAIL SALES ASSOCIATE-C Attending Provider Active Start: February 05, 2025 [...] Start: February 05, 2025 Danya Simpson NP, LEAD RETAIL SALES ASSOCIATE-C Attending Provider Active Start: February 05, 2025 [...] End: February 14, 2025 Suyapa Godinez CNM Referring [...] 2025 End: February 05, 2025 Danya Simpson LEAD RETAIL SALES ASSOCIATE, LEAD RETAIL SALES ASSOCIATE-C Attending Provider Active Start: February 05, 2025 [...] February 27, 2025 End: February 27, 2025 Team Status: Active Member Role/Relationship Status Dates Dr. Cholo Smith DO Primary Care Provider Active Start: February 27, 2025 Dr. Piedad Moreno MD Attending Provider Active Start: February 27, 2025 Dr. Piedad Moreno MD Referring Provider Active Start: February 27, 2025 Team Status: Inactive Member Role/Relationship Status Dates Dr. Cholo Smith DO Primary Care Provider Active Start: February 28, 2025 End: February 28, 2025 Dr. Piedad Moreno MD Attending Provider Active Start: February 28, 2025 End: February 28, 2025 Dr. Piedad Moreno MD Referring Provider Active Start: February 28, 2025 End: February 28, 2025 Team Status: Active Member Role/Relationship Status Dates Dr. Cholo Smith DO Primary Care Provider Active Start: February 28, 2025 Dr. Piedad Moreno MD Attending Provider Active Start: February 28, 2025 Dr. Piedad Moreno MD Referring Provider Active Start: February 28, 2025 Dr. Piedad Moreno MD Other Provider Active Start: February 28, 2025 Team Status: Inactive Member Role/Relationship Status Dates Dr. Cholo Smith DO Primary Care Provider Active Start: March 05, 2025 End: March 05, 2025 Dr. Cholo Smith DO Referring Provider Active Start: March 05, 2025 End: March 05, 2025 Dr. Reina Rashid DO Attending Provider Activ e Start: March 05, 2025 End: March 05, 2025 Team Status: Inactive Member Role/Relationship Status Dates Dr. Cholo Smith DO Primary Care Provider Active Start: February 27, 2025 End: February 27, 2025 Dr. Piedad Moreno MD Attending Provider Active Start: February 27, 2025 End: February 27, 2025 Dr. Piedad Moreno MD Referring Provider Active Start: February 27, 2025 End: February 27, 2025 Team Status: Inactive Member Role/Relationship Status Dates Dr. Cholo Smith DO Primary Care Provider Active Start: March 06, 2025 End: March 06, 2025 Dr. Cholo Smith DO Referring Provider Active Start: March 06, 2025 End: March 06, 2025 Dr. Piedad Moreno MD Attending Provider Active Start: March 06, 2025 End: March 06, 2025 Team Status: Inactive Member Role/Relationship Status [...] 26, 2024 End: December 26, 2024 Dr. eRina Rashid DO Attending Provider Activ e Start: [...] End: February 05, 2025 Danya Simpson NP, LEAD RETAIL SALES ASSOCIATE-C Attending Provider Active Start: February 05, 2025 [...] End: February 14, 2025 Suyapa Godinez CNM Referring [...] February 27, 2025 End: February 27, 2025 Team Status: Inactive Member Role/Relationship Status Dates Dr. Cholo Smith DO Primary Care Provider Active Start: February 27, 2025 End: February 27, 2025 Dr. Piedad Moreno MD Attending Provider Active Start: February 27, 2025 End: February 27, 2025 Dr. Piedad Moreno MD Referring Provider Active Start: February 27, 2025 End: February 27, 2025 Team Status: Inactive Member Role/Relationship Status Dates Dr. Cholo Smith DO Primary Care Provider Active Start: February 28, 2025 End: February 28, 2025 Dr. Piedad Moreno MD Attending Provider Active Start: February 28, 2025 End: February 28, 2025 Dr. Piedad Moreno MD Referring Provider Active Start: February 28, 2025 End: February 28, 2025 Team Status: Active Member Role/Relationship Status Dates Dr. Cholo Smith DO Primary Care Provider Active Start: February 28, 2025 Dr. Piedad Moreno MD Attending Provider Active Start: February 28, 2025 Dr. Piedad Moreno MD Referring Provider Active Start: February 28, 2025 Dr. Piedad Moreno MD Other Provider Active Start: February 28, 2025 Team Status: Inactive Member Role/Relationship Status Dates Dr. Cholo Smith DO Primary Care Provider Active Start: March 05, 2025 End: March 05, 2025 Dr. Cholo Smith DO Referring Provider Active Start: March 05, 2025 End: March 05, 2025 Dr. Reina Rashid DO Attending Provider Activ e Start: March 05, 2025 End: March 05, 2025 Team Status: Inactive Member Role/Relationship Status Dates Dr. Cholo Smith DO Primary Care Provider Active Start: March 06, 2025 End: March 06, 2025 Dr. Cholo Smith DO Referring Provider Active Start: March 06, 2025 End: March 06, 2025 Dr. Piedad Moreno MD Attending Provider Active Start: March 06, 2025 End: March 06, 2025 Team Status: Inactive Member Role/Relationship Status Dates Dr. Cholo Smith DO Primary Care Provider Active Start: March 06, 2025 End: March 09, 2025 Dr. Piedad Moreno MD Admit Provider Active Start: March 06, 2025 End: March 09, 2025 Dr. Piedad Moreno MD Attending Provider Active Start: March 06, 2025 End: March 09, 2025 Dr. Piedad Moreno MD Referring Provider Active Start: March 06, 2025 End: March 09, 2025 Team Status: Active Member Role/Relationship Status Dates Dr. Cholo Smith DO Primary Care Provider Active Start: March 06, 2025 Dr. Piedad Moreno MD Admit Provider Active Start: March 06, 2025 Dr. Piedad Moreno MD Attending Provider Active Start: March 06, 2025 Dr. Piedad Moreno MD Referring Provider Active Start: March 06, 2025 Dr. Piedad Moreno MD Other Provider Active Start: March 06, 2025 Team Status: Active Member Role/Relationship Status Dates Dr. Cholo Smith DO Primary Care Provider Active Start: March 07, 2025 Dr. Piedad Moreno MD Admit Provider Active Start: March 07, 2025 Dr. Piedad Moreno MD Attending Provider Active Start: March 07, 2025 Dr. Piedad Moreno MD Referring Provider Active Start: March 07, 2025 Dr. Piedad Moreno MD Other Provider Active Start: March 07, 2025 Team Status: Active Member Role/Relationship Status Dates Dr. Cholo Smith DO Primary Care Provider Active Start: March 08, 2025 Dr. Piedad Moreno MD Admit Provider Active Start: March 08, 2025 Dr. Piedad Moreno MD Referring Provider Active Start: March 08, 2025 Dr. Piedad Moreno MD Other Provider Active Start: March 08, 2025 Linda Hammond CNM Attending Provider Active Start: March 08, 2025 Team Status: Active Member Role/Relationship Status Dates Dr. Cholo Smith DO Primary Care Provider Active Start: March 09, 2025 Dr. Piedad Moreno MD Admit Provider Active Start: March 09, 2025 Dr. Piedad Moreno MD Referring Provider Active Start: March 09, 2025 Dr. Piedad Moreno MD Other Provider Active Start: March 09, 2025 Linda Hammond CNM Attending Provider Active Start: March 09, 2025 Team Status: Inactive Member Role/Relationship Status Dates Dr. Cholo Smith DO Primary Care Provider Active Start: March 13, 2025 End: March 13, 2025 Dr. Cholo Smith DO Referring Provider Active Start: March 13, 2025 End: March 13, 2025 LUIS EDUARDO Wong Attending Provider Active St art: March 13, 2025 End: March 13, 2025 Team Status: Inactive Member Role/Relationship Status Dates Dr. Cholo Smith DO Primary care physician Active Start: December 26, 2024 End: December 26, 2024 Dr. Reina Rashid DO Attending physician Acti ve Start: December 26, 2024 End: December 26, 2024 Dr. Reina Rashid DO Referring Provider Activ e Start: December 26, 2024 End: December 26, 2024 Team Status: Inactive Member Role/Relationship Status Dates Dr. Cholo Smith DO Primary care physician Active Start: January 03, 2025 End: January 03, 2025 Dr. Cholo Smith DO Referring Provider Active Start: January 03, 2025 End: January 03, 2025 Dr. Reina Rashid DO Attending physician Acti ve Start: January 03, 2025 End: January 03, 2025 Team Status: Inactive Member Role/Relationship Status Dates Dr. Cholo Smith DO Primary care physician Active Start: January 13, 2025 End: January 13, 2025 Dr. Cholo Smith DO Referring Provider Active Start: January 13, 2025 End: January 13, 2025 Suyapa Godniez CNM Attending physician Active Start: January 13, 2025 End: January 13, 2025 Team Status: Inactive Member Role/Relationship Status Dates Dr. Cholo Smith DO Primary care physician Active Start: January 14, 2025 End: January 14, 2025 Suyapa Godinez CNM Attending physician Active Start: January 14, 2025 End: January 14, 2025 Suyapa Godinez CNM Referring Provider Active S tart: January 14, 2025 End: January 14, 2025 Team Status: Inactive Member Role/Relationship Status Dates Dr. Cholo Smith DO Primary care physician Active Start: January 29, 2025 End: January 29, 2025 Dr. Cholo Smith DO Referring Provider Active Start: January 29, 2025 End: January 29, 2025 Dr. Reina Rashid DO Attending physician Acti ve Start: January 29, 2025 End: January 29, 2025 Team Status: Inactive Member Role/Relationship Status Dates Dr. Cholo Smith DO Primary care physician Active Start: February 05, 2025 End: February 05, 2025 Danya Simpson NP, [employer] Attending physician Active Start: February 05, 2025 End: February 05, 2025 Team Status: Inactive Member Role/Relationship Status Dates Dr. Cholo Smith DO Primary care physician Active Start: February 07, 2025 End: February 07, 2025 Linda Hammond CNM Attending physician Active Start: February 07, 2025 End: February 07, 2025 Linda Hammond CNM Referring Provider Active Start: February 07, 2025 End: February 07, 2025 Team Status: Active Member Role/Relationship Status Dates Dr. Cholo Smith DO Primary care physician Active Start: February 07, 2025 Linda Hammond CNM Attending physician Active Start: February 07, 2025 Linda Hammond CNM Referring Provider Active Start: February 07, 2025 Lnida Hammond CNM Nurse Practitioner Active Start: February 07, 2025 Team Status: Inactive Member Role/Relationship Status Dates Dr. Cholo Smith DO Primary care physician Active Start: February 13, 2025 End: February 13, 2025 Dr. Cholo Smith DO Referring Provider Active Start: February 13, 2025 End: February 13, 2025 Dr. Reina Rashid DO Attending physician Acti ve Start: February 13, 2025 End: February 13, 2025 Team Status: Inactive Member Role/Relationship Status Dates Dr. Cholo Smith DO Primary care physician Active Start: February 14, 2025 End: February 14, 2025 Suyapa Godinez CNM Attending physician Active Start: February 14, 2025 End: February 14, 2025 Suyapa Godinez CNM Referring Provider Active S tart: February 14, 2025 End: February 14, 2025 Team Status: Active Member Role/Relationship Status Dates Dr. Cholo Smith DO Primary care physician Active Start: February 14, 2025 Suyapa Godinez CNM Attending physician Active Start: February 14, 2025 Suyapa Godinez CNM Referring Provider Active S tart: February 14, 2025 Suyapa Godinez CNM Nurse Practitioner Active S tart: February 14, 2025 Team Status: Inactive Member Role/Relationship Status Dates Dr. Cholo Smith DO Primary care physician Active Start: February 18, 2025 End: February 18, 2025 Dr. Cholo Smith DO Referring Provider Active Start: February 18, 2025 End: February 18, 2025 Dr. Piedad Moreno MD Attending physician Active Start: February 18, 2025 End: February 18, 2025 Team Status: Inactive Member Role/Relationship Status Dates Dr. Cholo Smith DO Primary care physician Active Start: February 18, 2025 End: February 18, 2025 Dr. Piedad Moreno MD Attending physician Active Start: February 18, 2025 End: February 18, 2025 Team Status: Inactive Member Role/Relationship Status Dates Dr. Cholo Smith DO Primary care physician Active Start: February 27, 2025 End: February 27, 2025 Dr. Cholo Smith DO Referring Provider Active Start: February 27, 2025 End: February 27, 2025 Dr. Piedad Moreno MD Attending physician Active Start: February 27, 2025 End: February 27, 2025 Team Status: Inactive Member Role/Relationship Status Dates Dr. Cholo Smith DO Primary care physician Active Start: February 27, 2025 End: February 27, 2025 Dr. Piedad Moreno MD Attending physician Active Start: February 27, 2025 End: February 27, 2025 Dr. Piedad Moreno MD Referring Provider Active Start: February 27, 2025 End: February 27, 2025 Team Status: Inactive Member Role/Relationship Status Dates Dr. Cholo Smith DO Primary care physician Active Start: February 28, 2025 End: February 28, 2025 Dr. Piedad Moreno MD Attending physician Active Start: February 28, 2025 End: February 28, 2025 Dr. Piedad Moreno MD Referring Provider Active Start: February 28, 2025 End: February 28, 2025 Team Status: Active Member Role/Relationship Status Dates Dr. Cholo Smith DO Primary care physician Active Start: February 28, 2025 Dr. Piedad Moreno MD Attending physician Active Start: February 28, 2025 Dr. Piedad Moreno MD Referring Provider Active Start: February 28, 2025 Dr. Piedad Moreno MD Nurse Practitioner Active Start: February 28, 2025 Team Status: Inactive Member Role/Relationship Status Dates Dr. Cholo Smith DO Primary care physician Active Start: March 05, 2025 End: March 05, 2025 Dr. Cholo Smith DO Referring Provider Active Start: March 05, 2025 End: March 05, 2025 Dr. Reina Rashid DO Attending physician Acti ve Start: March 05, 2025 End: March 05, 2025 Team Status: Inactive Member Role/Relationship Status Dates Dr. Cholo Smith DO Primary care physician Active Start: March 06, 2025 End: March 06, 2025 Dr. Cholo Smith DO Referring Provider Active Start: March 06, 2025 End: March 06, 2025 Dr. Piedad Moreno MD Attending physician Active Start: March 06, 2025 End: March 06, 2025 Team Status: Inactive Member Role/Relationship Status Dates Dr. Cholo Smith DO Primary care physician Active Start: March 06, 2025 End: March 09, 2025 Dr. Piedad Moreno MD Admitting physician Active Start: March 06, 2025 End: March 09, 2025 Dr. Piedad Moreno MD Attending physician Active Start: March 06, 2025 End: March 09, 2025 Dr. Piedad Moreno MD Referring Provider Active Start: March 06, 2025 End: March 09, 2025 Team Status: Active Member Role/Relationship Status Dates Dr. Cholo Smith DO Primary care physician Active Start: March 06, 2025 Dr. Piedad Moreno MD Admitting physician Active Start: March 06, 2025 Dr. Piedad Moreno MD Attending physician Active Start: March 06, 2025 Dr. Piedad Moreno MD Referring Provider Active Start: March 06, 2025 Dr. Piedad Moreno MD Nurse Practitioner Active Start: March 06, 2025 Team Status: Active Member Role/Relationship Status Dates Dr. Cholo mSith DO Primary care physician Active Start: March 07, 2025 Dr. Piedad Moreno MD Admitting physician Active Start: March 07, 2025 Dr. Piedad Moreno MD Attending physician Active Start: March 07, 2025 Dr. Piedad Moreno MD Referring Provider Active Start: March 07, 2025 Dr. Piedad Moreno MD Nurse Practitioner Active Start: March 07, 2025 Team Status: Active Member Role/Relationship Status Dates Dr. Cholo Smith DO Primary care physician Active Start: March 08, 2025 Dr. Piedad Moreno MD Admitting physician Active Start: March 08, 2025 Dr. Piedad Moreno MD Referring Provider Active Start: March 08, 2025 Dr. Piedad Moreno MD Nurse Practitioner Active Start: March 08, 2025 Linda Hammond CNM Attending physician Active Start: March 08, 2025 Team Status: Active Member Role/Relationship Status Dates Dr. Cholo Smith DO Primary care physician Active Start: March 09, 2025 Dr. Piedad Moreno MD Admitting physician Active Start: March 09, 2025 Dr. Piedad Moreno MD Referring Provider Active Start: March 09, 2025 Dr. Piedad Moreno MD Nurse Practitioner Active Start: March 09, 2025 Linda Hammond CNM Attending physician Active Start: March 09, 2025 Team Status: Inactive Member Role/Relationship Status Dates Dr. Cholo Smith , Primary care physician Active Start: March 13, 2025 End: March 13, 2025 Dr. Cholo Smith , Referring Provider Active Start: March 13, 2025 End: March 13, 2025 LUIS EDUARDO Wong Attending physician Active S tart: March 13, 2025 End: March 13, 2025 Team Status: Inactive Member Role/Relationship Status Dates Dr. Cholo Smith , Referring Provider Active Start: April 15, 2025 End: April 15, 2025 Dr. Elijah Shafer DO Attending physician Active Start: April 15, 2025 End: April 15, 2025 Goals (unrecognized section and content) Goals [...] section and content) DATE CREATED AUTHOR 05/13/2023 [facility] DATE CREATED AUTHOR AUTHOR'S ORGANIZ ATION 05/15/2023 [facility] DATE CREATED AUTHOR AUTHOR'S ORGANIZ ATION 04/15/2025 [facility] DATE CREATED AUTHOR AUTHOR'S ORGANIZ ATION 05/01/2025 [facility] FOR RECORDS PERTAINING TO PATIENTS WHO ARE [...] BE BASED ON THE PRIMARY CLINICAL RECORDS. [facility] [employer] [facility]. provides no warranty or guarantee of the accuracy or completeness of information in this document.
== END | disposition home or self-care (01) ==
PROVIDERS: PCP Family Medicine; Referring Provider Internal Medicine Gastroenterology; Visit Provider Internal Medicine Gastroenterology
DX: K52.832 Lymphocytic colitis (principal); K64.9 Unspecified hemorrhoids; K62.89 Other specified diseases of anus and rectum
CPT/HCPCS: 76705; 76981

== ENCOUNTER → 2025-05-05 | Outpatient (CLI) | payer BC, SELFPAY ==
--- NOTE | 2025-05-05 12:56 | NM_ITS ---
PROCEDURE: HEPATOBILLIARY IMG W/PHARM INT 05/05/2025 REASON FOR EXAM: ABDOMINAL APIN TECHNIQUE: Procedure Code: [id number] Modality: NM Procedure: HEPATOBILLIARY IMG W/PHARM INT Intravenous Choletec with planar imaging of the abdomen. 1.8 mcg Kinevac intravenously approximately 60 minutes after the radiopharmaceutical with additional anterior imaging and a region of interest drawn around the gallbladder to calculate a time-activity curve. RADIOPHARMACEUTICAL: Mebrofenin DOSE 5.1mCi COMPARISON: None FINDINGS: There is good uptake of the radiopharmaceutical by the liver. Normal gallbladder visualization with the gallbladder identified by 30 minutes. Gallbladder Ejection Fraction: 90 % (Normal is >35%) NM/Hepatobilliary Img w/Pharm Int IMPRESSION: Normal hepatobiliary scan with Kinevac. Normal gallbladder ejection fraction. Reading Location: [id number]
== END | disposition home or self-care (01) ==
LOC: NM 12:56
PROVIDERS: PCP Family Medicine; Referring Provider Internal Medicine Gastroenterology; Visit Provider Internal Medicine Gastroenterology
DX: R10.9 Unspecified abdominal pain (principal); K52.832 Lymphocytic colitis; K64.9 Unspecified hemorrhoids; K62.89 Other specified diseases of anus and rectum
CPT/HCPCS: 78227; A9537; J2805

== ENCOUNTER → 2025-05-12 | Outpatient (CLI) | payer BC, SELFPAY ==
--- NOTE | 2025-05-12 13:08 | NM_ITS ---
PROCEDURE: NM/Gastric Emptying Study
== END | disposition home or self-care (01) ==
LOC: NM 13:07
PROVIDERS: PCP Family Medicine; Referring Provider Internal Medicine Gastroenterology; Visit Provider Internal Medicine Gastroenterology
DX: K52.832 Lymphocytic colitis (principal); K64.9 Unspecified hemorrhoids; K62.89 Other specified diseases of anus and rectum
CPT/HCPCS: 78264; A9541